=== PATIENT | male | born 1955 | race Caucasian/White ===

== ENCOUNTER 2019-08-22 15:36 | Outpatient (CLI) | payer MEDICARE, SELFPAY ==
--- NOTE | ~2019-08-22 | CT_ITS ---
EXAMINATION: CT foot LT wo con DATE: 08/22/2019 16:05 INDICATION: Left foot pain. Evaluate for stress fracture. TECHNIQUE: Computed tomography (CT) of the left foot was performed without intravenous contrast. The dose-length product was 160.74 mGy-cm. Automated exposure control and iterative reconstruction techni que were employed. COMPARISON: Left foot series dated 07/17/2019 FINDINGS: No acute fracture or traumatic malalignment. 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 Small plantar calcaneal enthesophyte. Small enthesophyte at the insertion of the Achilles tendon. No focal soft tissue abnormality. IMPRESSION: 1. No acute fracture. Reviewed, dictated and finalized at location A. [employer] IMPRESSION: 1. No acute fracture.
== END 2019-08-22 15:37 ==
LOC: MICIMG 15:37
PROVIDERS: PCP Family Medicine; Visit Provider Podiatrist Foot & Ankle Surgery
DX: M84.375A Stress fracture, left foot, initial encounter for fracture (principal)
CPT/HCPCS: 73700

== ENCOUNTER 2019-10-13 16:09 | Emergency (ER) | payer MEDICARE, SELFPAY ==
[2019-10-13] VITALS (18 sets, daily range): BP systolic 64–132; BP diastolic 33–73; PULSE 60–68; RESP 13–25; TEMP 36.6; O2SAT 94–100
--- NOTE | ~2019-10-13 | CT_ITS ---
EXAMINATION: CT cervical spine wo con DATE: 10/13/2019 17:37 INDICATION: Neck pain and pain radiating down the left arm. TECHNIQUE: Computed tomography (CT) of the cervical spine was performed without intravenous contrast. Automated exposure control and iterative reconstruction technique were employed. The dose-length pro duct was 815.21 mGy-cm. COMPARISON: None FINDINGS: Evaluation mildly limited by moderate amount of motion artifact which is most prominent at the level of C5. Alignment is normal. Vertebral body heights are normal. No lesions suspicious for fracture. Mi ld disc height loss and associated uncovertebral osteoarthritis at C5-C6 through C7-T1. Bilateral mul tilevel mild facet osteoarthritis. No significant central canal stenosis. Mild neural foraminal steno sis on the left at C6-C7 and C7-T1. Cervical soft tissues are unremarkable. Mild emphysema at the rig ht apex. IMPRESSION: 1. Mild cervical spondylosis. No acute osseous abnormality. 2. Evaluation mildly limited by moderate amount of motion artifact. Reviewed, dictated and finalized at location A.
--- NOTE | ~2019-10-13 | XR_ITS ---
EXAMINATION: XR chest 2V DATE: 10/13/2019 17:08 INDICATION: Shortness of breath. Left arm and neck pain. TECHNIQUE: PA and lateral views of the chest were obtained. COMPARISON: Chest radiograph dated 07/08/2019 FINDINGS: The lungs remain clear with no focal airspace opacities, pulmonary edema, pleural effusion or pneumot horax. Cardiomegaly. Dual lead pacemaker/AICD seen with leads projecting over the expected locations of the right atrium and right ventricle. Large calcified periaortic lymph node consistent with old gr anulomatous disease. Upper thoracic levoscoliosis. IMPRESSION: 1. Cardiomegaly. Reviewed, dictated and finalized at location A. IMPRESSION: 1. Cardiomegaly.
--- NOTE | ~2019-10-13 | CT_ITS ---
EXAMINATION: CT brain wo con DATE: 10/13/2019 17:37 INDICATION: Left arm and neck pain. Left upper limb neuropathy. TECHNIQUE: Computed tomography (CT) of the head was performed without intravenous contrast. Sagittal and coronal reconstructions were performed. The mA was adjusted according to patient size. Iterative reconstruction technique was employed. The dose-length product was 681.00 mGy-cm. COMPARISON: head CT dated 04/25/2018 FINDINGS: Chronic left frontoparietal scalp swelling with multiple small subdermal dystrophic calcifications. N o acute intracranial hemorrhage, acute infarction or abnormal extra axial fluid collection. There is mild scattered white matter hypoattenuation consistent with chronic small vessel ischemic disease. Sy mmetric prominence of the sulci consistent with mild age-appropriate diffuse cerebral volume loss. Ve ntricles are normal and symmetric. No mass/mass effect. The orbits, paranasal sinuses and mastoid air cells are normal. IMPRESSION: 1. Stable appearance of chronic age-related findings. No acute intracranial process. Reviewed, dictated and finalized at location A. IMPRESSION: 1. Stable appearance of chronic age-related findings. No acute intracranial pro cess.
--- NOTE | 2019-10-13 16:16 | ECG_ITS ---
Measurements Intervals [place] Rate: 62 P: 22 VA: 211 QRS: -51 QRSD: 165 T: 8 QT: 436 QTc: 444 Interpretive Statements SINUS RHYTHM WITH FIRST DEGREE AV BLOCK RIGHT BUNDLE BRANCH BLOCK LEFT ANTERIOR FASCICULAR BLOCK ABNORMAL ECG Electronically Signed On 10-16-2019 11:42:45 CDT by Cralos Heck D.O.
--- NOTE | 2019-10-13 16:29 | PC.NURSE ---
Pt states 4 days ago he started having neck pain 4 days ago and then started having back pain and NULL. Pt states the last couple days he started having L arm pain, chest pain and SOB. Pt states he was sitting when all his symptoms started. Pt is A&Ox4. Pt appears in NAD. Pt has call light in reach
[2019-10-13 17:00] LABS: Basophils Percent Auto 0.6 % (0.2-1.2); Eosinophils Absolute Auto 0.2 K/mm3 (0-0.3); Eosinophils Percent Auto 3.1 % (0-4.4); Hematocrit 45.3 % (42.0-52.0); Hemoglobin 14.4 g/dL (14.0-18.0); Immature Granulocyte Absolute 0.04 K/mm3 (0.00-0.031); Immature Granulocyte Percent A 0.6 % (0-0.5); Lymphocytes Percent Auto 18.5 % (18.3-44.2); Mean Corpuscular HGB Conc 31.8 g/dl (32-36); Mean Corpuscular Hemoglobin 28.3 pg (26-34); Mean Corpuscular Volume 89.2 fl (80-100); Mean Platelet Volume 11.2 fl (7.4-10.4); Monocytes Absolute Auto 0.7 K/mm3 (0.1-0.6); Monocytes Percent Auto 9.7 % (2.6-8.5); Neutrophils Absolute Auto 4.7 K/mm3 (1.3-6.7); Neutrophils Percent Auto 67.5 % (45.5-73.1); Platelet Count Result 214 k/mm3 (150-375); Red Blood Count 5.08 M/mm3 (4.6-6.20); Red Cell Distribution Width 14.8 % (11.5-14.5)
[2019-10-13 17:10] LABS: INR 0.9; Prothrombin Time 11.9 Seconds (11.1-14.7)
[2019-10-13 17:13] LABS: Alanine Aminotransferase 29 U/L (4-50); Albumin Level 4.6 g/dL (3.5-5.1); Alkaline Phosphatase 77 U/L (38-126); Aspartate Amino Transferase 27 U/L (17-59); Bilirubin,Total 0.4 mg/dL (0.2-1.3); Blood Urea Nitrogen 29 mg/dL (9-20); Calcium 9.5 mg/dL (8.4-10.2); Carbon Dioxide 31 mmol/L (22-30); Chloride 104 mmol/L (98-107); Estimated CRCL calculation 94 ml/min; Estimated Glomerular Filt Rate > 60; Glucose 97 mg/dL (75-110); Magnesium 2.5 mg/dL (1.6-2.3); Potassium 4.1 mmol/L (3.4-5.0); Sodium 141 mmol/L (137-145)
--- NOTE | 2019-10-13 17:15 | ED.NEUROSD ---
HPI - Neuro Symptoms/Deficit General Chief Complaint: Shortness of Breath/Dyspnea Stated Complaint: neck, back and head pain Time Seen by Provider: 10/13/19 16:37 History of Present Illness HPI Narrative: Patient presents with his for neck and left arm pain. Started 4 days ago, without injury or trauma. He has severe posterior neck pain, left scapula pain, and then down the left arm. It is associated with left numbness of the 4th and 5th fingers. He has neurofibromatosis and is on chronic pain medication, neurontin 300mg several times a day. He goes to [place] for his MRIs, because he has a pacer and his head of history and neurologist are both there. He has had no symptoms of illness, other than his chronic SOB. Onset (ago): day(s) Timing confirmed by: spouse Location: left arm History of same: No Severity: severe Quality: numb Relieving factors: none Exacerbating factors: other Context: sudden onset On Anticoagulants: No Associated symptoms: other Related Data Allergies Allergy/AdvReac Type Severity Reaction Status Date / Time menthol Allergy Severe Rash Verified 08/19/19 10:10 Review of Systems Review of Systems: All systems reviewed & are unremarkable except as noted in HPI and below Constitutional: Constitutional: Reports as per HPI, Denies chills, Denies fever(s) and Denies weakness Cardiovascular: Cardiovascular: Denies chest pain Respiratory: Respiratory: Reports dyspnea Gastrointestinal: Gastrointestinal: Denies abdominal pain and Denies nausea Musculoskeletal: Musculoskeletal: Denies joint swelling Neurologic: Reports system reviewed and no additional complaints, except as documented, Denies confusion, Denies focal weakness and Reports numbness PMFSH Past Medical History Medical History CHF (congestive heart failure) Family History Family History Father Cerebrovascular accident Family history of diabetes mellitus in first degree relative Family history of heart disease in male family member before age 55 Mother Family history of malignant neoplasm of breast in first degree relative Other Diabetes mellitus Family history of alcoholism Family history of malignant neoplasm Family history of mental disorder Social History Social History Smoking status: Never smoker Second hand tobacco smoke exposure: No Smoking end date: 07/02/77 Alcohol intake: current Gender identity (if verbalized by the patient): Male Exam Const: General: no acute distress and alert Nutritional Appearance: well nourished and obese Orientation/consciousness: patient oriented x3 HENMT: Head: normal to inspection Face and sinus: normal facial exam Mouth: Yes Normal oral and palatal mucosa present Eyes: Conjunctivae: conjunctivae normal Pupils: Equal, round and reactive pupils present EOM: EOMs intact bilaterally Neck: Other: mild tenderness to posterior neck diffusely Chest: Chest palpation & inspection: normal inspection of the chest and Pacemaker present Resp: Effort & Inspection: normal respiratory effort Auscultation: clear to auscultation bilaterally Cardio: Rate: regular rate Rhythm: regular rhythm GI: Inspection: distended GI Palp: Yes Soft to palpation and No Tenderness to palpation present (GI) Skin: General skin exam: normal color Other: multiple soft nodules (neurofibromas) Neuro: General: patient oriented x3, moves all extremities, no meningeal signs, no focal motor deficits and CN's II-XI intact bilaterally Cranial nerves: Yes Nystagmus not present Speech: normal speech Extrem: General: normal to inspection Psych: Affect: normal affect Attitude: cooperative Course Reevaluation(s) Reevaluation #1: The percocet helped some., but he is still complaining. I offered percocet and increased the neurotin for home. He can have a dilau
[2019-10-13 17:24] LABS: NT Pro B Type Natriuretic Pept 40 PG/ML (5-100); Troponin I < 0.012 ng/mL (0.000-0.034)
[2019-10-13] MEDS: HYDROMORPHONE HCL 1 MG/ML INJ IM (18:51)
== END 2019-10-13 19:06 | disposition home or self-care (01) ==
PROVIDERS: Emergency Provider Emergency Medicine; PCP Family Medicine
DX: Q85.00 Neurofibromatosis, unspecified (principal); G62.9 Polyneuropathy, unspecified; I50.9 Heart failure, unspecified; I51.7 Cardiomegaly; M47.812 Spondylosis without myelopathy or radiculopathy, cervical region; Z95.0 Presence of cardiac pacemaker
CPT/HCPCS: 36415; 70450; 71046; 72125; 80053; 83735; 83880; 84484; 85025; 85610; 87804; 93005; 96372; 99284; A9270; J1170

== ENCOUNTER 2020-02-25 12:51 | Inpatient (IN) | payer MEDICARE, SELFPAY ==
[2020-02-25] VITALS (12 sets, daily range): BP systolic 110–132; BP diastolic 52–85; PULSE 59–67; RESP 16–24; TEMP 36.2–36.4; O2SAT 90–100; BMI 41.4
--- NOTE | ~2020-02-25 | XR_ITS ---
EXAMINATION: XR chest 2V DATE: 02/25/2020 13:31 INDICATION: Shortness of breath. Weakness. TECHNIQUE: PA and lateral views of the chest were obtained. COMPARISON: Chest radiograph dated 10/13/19 FINDINGS: Elevation of the left hemidiaphragm. No focal airspace opacities, pulmonary edema, pleural effusion o r pneumothorax. Cardiomegaly with pulmonary vascular congestion. Dual lead pacemaker/AICD seen with l omar projecting over the expected locations of the right atrium and right ventricle. Mild thoracic sp ondylosis. IMPRESSION: 1. Cardiomegaly with pulmonary vascular congestion but without melisa pulmonary edema. Reviewed, dictated and finalized at location A.
--- NOTE | ~2020-02-25 | XR_ITS ---
EXAMINATION: XR chest 2V DATE: 02/27/2020 10:37 INDICATION: Congestive heart failure. TECHNIQUE: Frontal and lateral views of the chest were obtained. COMPARISON: Chest 2 views 02/25/2020, chest CT 04/13/2019 FINDINGS: There is mild atelectasis at the lung bases. A calcified left lung nodule and calcified par aesophageal lymph node are consistent with old granulomatous disease. No pleural effusion or pneumoth orax. Cardiomegaly is noted. There is a left chest wall pacer with leads in the right atrium and righ t ventricle. IMPRESSION: 1. Mild atelectasis at the lung bases. 2. Cardiomegaly. Reviewed, dictated and finalized at location B.
--- NOTE | ~2020-02-25 | US_ITS ---
EXAMINATION: US venous doppler LE EXAM DATE: 02/26/2020 10:17 INDICATION: Bilateral leg swelling. TECHNIQUE: Multiple grayscale, color flow and Doppler images of the lower extremity deep venous syste ms bilaterally were obtained and reviewed. Comparison is made to prior examination from 04/14/2019. FINDINGS: Right side: The right common femoral, femoral and profunda veins demonstrate normal color flow, respi ratory variation, augmentation and compressibility. Compressibility, color flow confirmed within the right popliteal, posterior tibial, peroneal, and greater saphenous veins. Left side: The left common femoral, femoral and profunda veins demonstrate normal color flow, respira tory variation, augmentation and compressibility. Compressibility, color flow confirmed within the l eft popliteal, posterior tibial, peroneal, and greater saphenous veins. IMPRESSION: 1. No lower extremity deep venous thrombosis bilaterally. Reviewed, dictated and finalized at location A.
--- NOTE | 2020-02-25 13:12 | ECG_ITS ---
Measurements Intervals [place] Rate: 60 P: 128 ME: 246 QRS: -52 QRSD: 164 T: 2 QT: 458 QTc: 458 Interpretive Statements ELECTRONIC ATRIAL PACEMAKER RIGHT BUNDLE BRANCH BLOCK LEFT ANTERIOR FASCICULAR BLOCK CONSIDER HIGH LATERAL INFARCT, AGE INDETERMINATE BASELINE ARTIFACT- I, II, III, AVR, AVL, AVF ABNORMAL ECG Electronically Signed On 02-25-2020 16:04:56 CDT by Carlos Heck D.O.
[2020-02-25 13:32] LABS: Basophils Percent Auto 0.3 % (0.2-1.2); Eosinophils Absolute Auto 0.2 K/mm3 (0-0.3); Eosinophils Percent Auto 2.9 % (0-4.4); Hematocrit 41.3 % (42.0-52.0); Hemoglobin 13.4 g/dL (14.0-18.0); Immature Granulocyte Absolute 0.02 K/mm3 (0.00-0.031); Immature Granulocyte Percent A 0.3 % (0-0.5); Lymphocytes Absolute Auto 1.07 K/mm3 (0.9-3.2); Lymphocytes Percent Auto 16.1 % (18.3-44.2); Mean Corpuscular HGB Conc 32.4 g/dl (32-36); Mean Corpuscular Hemoglobin 28.5 pg (26-34); Mean Corpuscular Volume 87.7 fl (80-100); Mean Platelet Volume 10.7 fl (7.4-10.4); Monocytes Absolute Auto 0.7 K/mm3 (0.1-0.6); Monocytes Percent Auto 10.2 % (2.6-8.5); Neutrophils Absolute Auto 4.7 K/mm3 (1.3-6.7); Neutrophils Percent Auto 70.2 % (45.5-73.1); Platelet Count Result 165 k/mm3 (150-375); Red Blood Count 4.71 M/mm3 (4.6-6.20); Red Cell Distribution Width 14.6 % (11.5-14.5); White Blood Count 6.7 K/mm3 (4.5-10.0)
--- NOTE | 2020-02-25 13:36 | ED.SOB ---
HPI - SOB/Dyspnea General Chief Complaint: Shortness of Breath/Dyspnea Stated Complaint: SOB Time Seen by Provider: 02/25/20 13:24 Source: patient Limitations: no limitations History of Present Illness HPI Narrative: 64-year-old male presents emergency department for shortness of breath for the past few days progressively worsening. Patient says he has felt like this in the past before, unknown cause. Shortness of breath not worse with exertion. He has not taken anything for the shortness of breath today. No chest pain at this time. No abdominal pain. No nausea or vomiting. Patient states he has been gaining weight recently, and has a history of CHF. Related Data Home Medications Medication Instructions Recorded Confirmed fesoterodine [Toviaz] 4 mg PO DAILY 01/19/20 02/25/20 furosemide 40 mg PO QPM 01/19/20 02/25/20 furosemide 60 mg PO QAM 01/19/20 02/25/20 gabapentin 900 mg PO HS 01/19/20 02/25/20 pantoprazole 40 mg PO QAM 01/19/20 02/25/20 potassium chloride 10 meq PO BID 01/19/20 02/25/20 Adult One Daily Multivitamin 1 tablet PO QAM 02/25/20 02/25/20 albuterol sulfate [ProAir HFA] 2 inh INHALATION PRN PRN 02/25/20 02/25/20 alendronate-vitamin D3 1,000 units PO DAILY 02/25/20 02/25/20 aspirin [Aspirin Low Dose] 81 mg PO QAM 02/25/20 02/25/20 levalbuterol HCl 1 mg INHALATION TID 02/25/20 02/25/20 mometasone 1 spray INTRANASAL QA 02/25/20 02/25/20 rosuvastatin 20 mg PO QPM 02/25/20 02/25/20 Allergies Allergy/AdvReac Type Severity Reaction Status Date / Time menthol AdvReac Severe BROWER SKIN Verified 02/25/20 18:23 Review of Systems Review of Systems: Narrative: CONSTITUTIONAL: Denies fever, chills, or sweats. EYES: Denies visual changes, redness, or discharge. ENT: Denies rhinorrhea, congestion, sore throat, or otalgia. CARDIOVASCULAR: Denies chest pain, palpitations, or edema. RESPIRATORY: Reports shortness of breath and dry cough. GASTROINTESTINAL: Denies abdominal pain, nausea, vomiting, or diarrhea. GENITOURINARY: Denies dysuria or hematuria. SKIN: Denies rash or itching. MUSCULOSKELETAL: Denies back pain, joint pain, or myalgia. NEUROLOGIC: Denies headache, numbness, dizziness, or weakness. PSYCHIATRIC: Denies anxiety or depression. [facility] Past Medical History Medical History CHF (congestive heart failure) Family History Family History (Updated 02/25/20 @ 18:28 by Haim Jasmine RN) Father Family history of heart disease in male family member before age 55 Family history of diabetes mellitus in first degree relative Cerebrovascular accident Neurofibromatosis Mother Family history of malignant neoplasm of breast in first degree relative Grandparent Alcoholism Sibling Thyroid cancer Sibling Depression Family history of malignant neoplasm of breast in first degree relative Sibling Depression Adrenal cancer Sibling Depression Social History Social History Smoking status: Former smoker Second hand tobacco smoke exposure: No Smoking end date: 07/02/77 Alcohol intake: current Drinks per week: 1 Substance use: never Substance use type: does not use Gender identity (if verbalized by the patient): Male Spiritual care concerns: No Exam Narrative: Exam Narrative: GENERAL: Well-appearing, well-nourished, and in no acute distress. Obese HEAD: Normocephalic, atraumatic. EYES: PERRLA and EOMI. ENT: Nares clear, no rhinorrhea or epistaxis. Mucous membranes moist. NECK: Supple. CHEST: Clear to auscultation, decreased breath sounds bilaterally. No respiratory distress. HEART: Regular rate and rhythm. No murmur heard. Normal peripheral pulses. ABDOMEN: Soft, nontender, nondistended, normal active bowel sounds. EXTREMITIES: Normal range of motion. 2+ pitting edema lower extremities bilaterally SKIN: Warm, dry, no rash. NEURO: No focal deficits. Alert and oriented
[2020-02-25 13:43] LABS: Prothrombin Time 13.2 Seconds (11.1-14.7)
[2020-02-25 13:44] LABS: Partial Thromboplastin Time 28.9 SECONDS (22.3-36.8)
[2020-02-25 13:46] LABS: Anion Gap 6 mmol/L (8-16); Blood Urea Nitrogen 27 mg/dL (9-20); Calcium 8.9 mg/dL (8.4-10.2); Carbon Dioxide 29 mmol/L (22-30); Chloride 106 mmol/L (98-107); Estimated CRCL calculation 121 ml/min; Estimated Glomerular Filt Rate > 60; Glucose 95 mg/dL (75-110); Potassium 4.2 mmol/L (3.4-5.0); Sodium 141 mmol/L (137-145)
[2020-02-25 13:58] LABS: NT Pro B Type Natriuretic Pept 66 PG/ML (5-100); Troponin I < 0.012 ng/mL (0.000-0.034)
[2020-02-25] MEDS: FUROSEMIDE INJ 100 MG/10 ML VIAL 60 MG IV PUSH (15:06)
--- NOTE | 2020-02-25 18:17 | ADMGEN ---
This patient, Rah Greco, was admitted to Medical Room 255-. Patient/family oriented to hospital policies and general routines including ID bracelet, bed and alarms, visiting hours, pain management, procedures, bathroom and other care routines, personal items, smoking policy, room service/diet, and visiting hours. Valuables list has been completed. Information on how to activate the Rapid Response Team has been discussed. Patient/Family are encouraged to report perceived risks to care and to ask questions if they do not understand what they are told or what they should do.
[2020-02-26] VITALS (15 sets, daily range): BP systolic 113–136; BP diastolic 46–66; PULSE 60–72; RESP 18–22; TEMP 36–36.4; O2SAT 89–98
[2020-02-26 06:14] LABS: D Dimer 0.43 ug/mL (<0.48)
[2020-02-26 06:16] LABS: Anion Gap 6 mmol/L (8-16); Blood Urea Nitrogen 24 mg/dL (9-20); Calcium 9.2 mg/dL (8.4-10.2); Carbon Dioxide 27 mmol/L (22-30); Chloride 103 mmol/L (98-107); Estimated CRCL calculation 121 ml/min; Estimated Glomerular Filt Rate > 60; Glucose 117 mg/dL (75-110); Potassium 3.9 mmol/L (3.4-5.0); Sodium 136 mmol/L (137-145)
--- NOTE | 2020-02-26 06:38 | PM.IMHP ---
H&P: HPI History of Present Illness Date/Time: 02/26/20 06:38 Chief complaint: shortness of breath Narrative: Rah Greco is a 64 year old male with a past medical history of severe left ventricular enlargement, diastolic dysfunction, morbid obesity, bilateral hemidiaphragm paralysis, and complex obstructive sleep apnea who presented to the ER with shortness of breath. The patient initially reported that he had developed sudden onset of shortness of breath while walking around at work. However, upon further discussion of his condition the patient does admit that he is been gaining weight for the last 6-8 weeks. Since August he has gained at least 25 lb. He has not weighed himself in the last week or 2 and thinks that he probably has gained more weight. He reports that his legs are significantly more swollen than his usual. His legs have been aching in the anterior nair and in his feet. They have been aching so much that he is having difficulty standing up and walking across the room. He was attributing the weight gain to being laid off work since August. he takes Lasix 60 mg at around 3:00 a.m. in the afternoon after he returns from work and an additional 40 mg at around 7 her 8:00 p.m.. He does not take his Lasix in the morning because he has such difficulty with chronic urinary incontinence that he will urinate through 2 or 3 depends at a time. 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 However, while he was off of work he was going to the gym working out for an hour a day. He was doing extremely well with this until the last 6-8 weeks when he noticed increased dyspnea on exertion. He was also having increased orthopnea. He denies any paroxysmal nocturnal dyspnea but wears his CPAP religiously. He had sleeps in a recliner at all times but has had to start sleeping upright in the recliner. His has been yelling at him to keep his legs up because his legs have become that much more swollen. He denies any chest pain or palpitations. He has noticed a mild dry cough for the last couple of days. He has not had any fevers or chills. He denies any recent ill contacts. He has not had any loss of the sense of taste or smell. He denies any increased body aches. He does have chronic urinary incontinence and anticipates having a a bladder stimulator placed March 26, [address] Sargent. He denies any dysuria or hematuria. He has not had any hematochezia or melena. He usually has 1-2 soft stools a day. He did not have a stool yesterday but also did not have much to eat as he was in the ER. the patient has also noticed that his abdomen has been more distended but is not painful. He may have noticed a little bit of swelling in his hands. Review of Systems Review of Systems: Narrative: 12 systems were reviewed with pertinent positives and negatives per HPI. Except as documented in the HPI, all other systems were reviewed and are negative. [facility] Past Medical History Medical History (Updated 02/26/20 @ 08:05 by Allie Daugherty DO) Adrenal adenoma stable on imaging since 2017 Benign prostatic hyperplasia (BPH) with urinary urge incontinence the patient is in test debating a bladder stimulator placement March [address] Sargent Bilateral cataracts maturing Brugada syndrome C. 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
[2020-02-26 07:57] LABS: Glucose Point of Care 120 (65-105)
[2020-02-26] MEDS: PANTOPRAZOLE 40 MG TABLET PO (08:22)
[2020-02-26] MEDS: POTASSIUM CHLORIDE 10 MEQ TABLET.ER PO ×2 (08:22→17:13)
[2020-02-26] MEDS: ASPIRIN 81 MG ENTERIC TABLET PO (08:22)
[2020-02-26] MEDS: LOSARTAN POTASSIUM 25 MG TABLET PO (08:22)
[2020-02-26] MEDS: MULTIVITAMINS THERAPEUTIC TAB (*BKC) 1 TABLET PO (08:23)
[2020-02-26] MEDS: FUROSEMIDE INJ 40 MG/4 ML VIAL IV PUSH (08:23)
[2020-02-26] MEDS: PRAMIPEXOLE 1 MG TABLET PO (08:23)
[2020-02-26] MEDS: allopurinoL 100 MG TABLET PO (08:23)
[2020-02-26] MEDS: ACETAMINOPHEN 500 MG TABLET 1000 MG PO ×2 (11:19→20:16)
--- NOTE | 2020-02-26 11:19 | PM.IMPN ---
Progress Note: A&P Assessment and Plan (1) Acute exacerbation of CHF (congestive heart failure): Qualifiers: Heart failure type: diastolic Qualified Code(s): I50.33 - Acute on chronic diastolic (congestive) heart failure Code(s): I50.9 - Heart failure, unspecified Status: Acute Assessment and Plan: Patient recently saw his cyber security consultant (Dr Gil Baldwin at [facility]) who increased is lasix to 60mg AM, 40mg PM due to SOB and edema. Patient presents here with persistent symptoms. Will increase IV Lasix to 60mg BID as patient is not feeling much improvement this morning. Continue low-sodium diet. Venous dopplers show no DVT; D-dimer negative making PE less likely. (2) Complex sleep apnea syndrome: Code(s): G47.31 - Primary central sleep apnea Status: Acute Assessment and Plan: Continue home noninvasive ventilatory support. (3) Diabetes mellitus type 2, diet-controlled: Code(s): E11.9 - Type 2 diabetes mellitus without complications Status: Chronic Assessment and Plan: Diet controlled per patient. A1c in AM. Will monitor blood sugars with daily BMP and add accu-cheks if needed. (4) Hypertension: Qualifiers: Hypertension type: essential hypertension Qualified Code(s): I10 - Essential (primary) hypertension Code(s): I10 - Essential (primary) hypertension Status: Chronic Assessment and Plan: BPs stable but on lower end; will hold losartan for now given need for increased diuresis. Monitor BP and adjust treatment as needed. Additional Plan Patient's cyber security consultant is Dr Gil Baldwin and EP is Dr Pebbles Nelson; both at [place]. Subjective Date/time seen: 02/26/20 11:10 Interval history: Mr. Greco is a 64yo admitted for acute CHF exacerbation. He describes he thinks his lower extremity swelling is improving. Shortness of breath is about the same as yesterday. He saw his cyber security consultant at [facility] a couple weeks ago who increased his Lasix dose due to these symptoms. He denies any chest pain. He describes lower back pain. He has issues with incontinence for which he follows with Dr Sargent and is scheduled to have a bladder stimulator placed next month. Tolerating oral intake without nausea or vomiting. Review of Systems Review of Systems: Narrative: Twelve systems were reviewed with pertinent positives and negatives as per HPI. Exam Narrative: Exam Narrative: General: Male resting comfortably sitting up in bedside chair in no acute distress. HEENT: Normocephalic, EOMI, oral mucosa moist. Cardiovascular: Rate and rhythm are regular. Respiratory: Decreased breath sounds FRANCINE. Respirations even and nonlabored. Tolerating room air. Abdomen: Soft, non-tender, non-distended, bowel sounds present. Extremities: Peripheral pulses intact. 2+ pitting edema to FRANCINE lower extremities below the knee. Neuro: No focal neurological deficits. Speech is clear. Objective Data Vital Signs Vital Signs: Last Vital Signs Temp 97.5 F L 02/26/20 04:42 Pulse 69 02/26/20 12:00 Resp 20 02/26/20 04:42 BP 113/46 L 02/26/20 04:42 Pulse Ox 98 02/26/20 04:42 Intake/Output Intake/Output: Intake & Output 02/23/20 02/24/20 02/25/20 02/26/20 23:59 23:59 23:59 23:59 Intake Total 510 Output Total 2400 1050 Balance -2400 -540 Meds/Results Medications: Active Medications Generic Name Dose Route Start Last Admin Trade Name Freq PRN Reason Stop Dose Admin Acetaminophen 1,000 mg 02/26/20 08:24 Tylenol Tablet PO Q6H PRN Pain or Fever Albuterol 2 puff 02/26/20 04:32 Proventil Hfa INHALATION PRN PRN shortness of breath Allopurinol 100 mg 02/26/20 08:00 02/26/20 08:23 Zyloprim PO 100 mg DAILY@0800 JARED Administration Asp
[2020-02-26] MEDS: ENOXAPARIN 40 MG/0.4 ML SYRINGE SUB-Q ×2 (11:20→20:15)
[2020-02-26 11:45] LABS: Glucose Point of Care 120 (65-105)
[2020-02-26] MEDS: polyethylene glycoL 3350 17 GM POWD.PACK PO (12:56)
[2020-02-26 16:25] LABS: Glucose Point of Care 126 (65-105)
[2020-02-26] MEDS: ROSUVASTATIN 10 MG TABLET 20 MG PO (17:12)
[2020-02-26] MEDS: FUROSEMIDE INJ 100 MG/10 ML VIAL 60 MG IV PUSH (17:12)
[2020-02-26] MEDS: PRAMIPEXOLE 1 MG TABLET 2 MG PO (17:13)
[2020-02-26] MEDS: GABAPENTIN 300 MG CAPSULE 900 MG PO (20:14)
[2020-02-27] VITALS (16 sets, daily range): BP systolic 106–121; BP diastolic 66–73; PULSE 60–89; RESP 16–22; TEMP 36–36.1; O2SAT 93–97
[2020-02-27 06:06] LABS: Basophils Percent Auto 0.6 % (0.2-1.2); Eosinophils Absolute Auto 0.3 K/mm3 (0-0.3); Hematocrit 42.7 % (42.0-52.0); Hemoglobin 13.9 g/dL (14.0-18.0); Immature Granulocyte Absolute 0.01 K/mm3 (0.00-0.031); Immature Granulocyte Percent A 0.2 % (0-0.5); Lymphocytes Absolute Auto 1.14 K/mm3 (0.9-3.2); Lymphocytes Percent Auto 21.8 % (18.3-44.2); Mean Corpuscular HGB Conc 32.6 g/dl (32-36); Mean Corpuscular Hemoglobin 27.9 pg (26-34); Mean Corpuscular Volume 85.7 fl (80-100); Mean Platelet Volume 10.8 fl (7.4-10.4); Monocytes Absolute Auto 0.6 K/mm3 (0.1-0.6); Monocytes Percent Auto 12.2 % (2.6-8.5); Neutrophils Absolute Auto 3.2 K/mm3 (1.3-6.7); Neutrophils Percent Auto 60.2 % (45.5-73.1); Platelet Count Result 187 k/mm3 (150-375); Red Blood Count 4.98 M/mm3 (4.6-6.20); Red Cell Distribution Width 14.4 % (11.5-14.5); White Blood Count 5.2 K/mm3 (4.5-10.0)
[2020-02-27 06:14] LABS: Anion Gap 7 mmol/L (8-16); Blood Urea Nitrogen 28 mg/dL (9-20); Calcium 9.2 mg/dL (8.4-10.2); Carbon Dioxide 28 mmol/L (22-30); Chloride 101 mmol/L (98-107); Estimated CRCL calculation 121 ml/min; Estimated Glomerular Filt Rate > 60; Glucose 120 mg/dL (75-110); Magnesium 2.4 mg/dL (1.6-2.3); Potassium 3.8 mmol/L (3.4-5.0); Sodium 136 mmol/L (137-145)
[2020-02-27 07:47] LABS: Hemoglobin A1C 5.9 % (<5.7)
[2020-02-27] MEDS: ENOXAPARIN 40 MG/0.4 ML SYRINGE SUB-Q ×2 (09:02→21:39)
[2020-02-27] MEDS: ASPIRIN 81 MG ENTERIC TABLET PO (09:03)
[2020-02-27] MEDS: polyethylene glycoL 3350 17 GM POWD.PACK PO (09:03)
[2020-02-27] MEDS: FUROSEMIDE INJ 100 MG/10 ML VIAL 60 MG IV PUSH ×2 (09:03→17:11)
[2020-02-27] MEDS: POTASSIUM CHLORIDE 10 MEQ TABLET.ER PO ×2 (09:03→17:11)
[2020-02-27] MEDS: LOSARTAN POTASSIUM 25 MG TABLET PO (09:03)
[2020-02-27] MEDS: PRAMIPEXOLE 1 MG TABLET PO (09:03)
[2020-02-27] MEDS: allopurinoL 100 MG TABLET PO (09:03)
[2020-02-27] MEDS: PANTOPRAZOLE 40 MG TABLET PO (09:03)
[2020-02-27] MEDS: MULTIVITAMINS THERAPEUTIC TAB (*BKC) 1 TABLET PO (09:03)
--- NOTE | 2020-02-27 09:56 | PM.IMPN ---
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) who increased is lasix to 60mg AM, 40mg PM due to SOB and edema. Patient presents here with persistent symptoms. Continue increase diuresis with IV Lasix 60mg BID today. Repeat CXR today shows some improvement. Continue low-sodium diet. Educated again today on elevating legs and low-sodium diet. Venous dopplers show no DVT; D-dimer negative making PE less likely. (2) Complex sleep apnea syndrome: Code(s): G47.31 - Primary central sleep apnea Status: Acute Assessment and Plan: Continue home noninvasive ventilatory support. (3) Diabetes mellitus type 2, diet-controlled: Code(s): E11.9 - Type 2 diabetes mellitus without complications Status: Chronic Assessment and Plan: Diet controlled; A1c 5.9. Will monitor blood sugars with daily BMP and add accu-cheks if needed. (4) Hypertension: Qualifiers: Hypertension type: essential hypertension Qualified Code(s): I10 - Essential (primary) hypertension Code(s): I10 - Essential (primary) hypertension Status: Chronic Assessment and Plan: BPs stable but on lower end; will hold losartan for now given need for increased diuresis. Monitor BP and adjust treatment as needed. Additional Plan Patient's vault mechanic is Dr Gil Baldwin and EP is Dr Pebbles Nelson; both at [facility]. Subjective Date/time seen: 02/27/20 09:45 Interval history: Mr. Greco is a 64yo admitted for acute CHF exacerbation. His lower extremity swelling fluctuates through the day and he is encouraged to elevate his legs. Has not tolerated CRUZ hose in the past. Feels his shortness of breath is a little improved. Complains of left foot pain been going on x 1 year, takes gabapentin. No chest pain. No nausea or vomiting, tolerating oral intake. He has issues with incontinence for which he follows with Dr Sargent and is scheduled to have a bladder stimulator placed next month. Review of Systems Review of Systems: Narrative: Twelve systems were reviewed with pertinent positives and negatives as per HPI. Exam Narrative: Exam Narrative: General: Male resting comfortably sitting up in bedside chair in no acute distress. HEENT: Normocephalic, EOMI, oral mucosa moist. Cardiovascular: Rate and rhythm are regular. Respiratory: Decreased breath sounds FRANCINE. Respirations even and nonlabored. Tolerating room air. Abdomen: Soft, non-tender, non-distended, bowel sounds present. Extremities: Peripheral pulses intact. 2+ pitting edema to FRANCINE lower extremities below the knee about same as yesterday. Neuro: No focal neurological deficits. Speech is clear. Objective Data Vital Signs Vital Signs: Last Vital Signs Temp 96.8 F L 02/26/20 20:00 Pulse 66 02/27/20 08:15 Resp 18 02/27/20 08:15 BP 114/58 L 02/26/20 20:00 Pulse Ox 93 02/27/20 08:05 Intake/Output Intake/Output: Intake & Output 02/24/20 02/25/20 02/26/20 02/27/20 23:59 23:59 23:59 23:59 Intake Total 2240 350 Output Total 2400 2100 0 Balance -2400 140 350 Meds/Results Medications: Active Medications Generic Name Dose Route Start Last Admin Trade Name Freq PRN Reason Stop Dose Admin Acetaminophen 1,000 mg 02/26/20 08:24 02/26/20 20:16 Tylenol Tablet PO 1,000 mg Q6H PRN Administration Pain or Fever Albuterol 2 puff 02/26/20 04:32 Proventil Hfa INHALATION PRN PRN shortness of breath A
[2020-02-27] MEDS: ROSUVASTATIN 10 MG TABLET 20 MG PO (17:11)
[2020-02-27] MEDS: PRAMIPEXOLE 1 MG TABLET 2 MG PO (17:11)
[2020-02-27] MEDS: GABAPENTIN 300 MG CAPSULE 900 MG PO (21:39)
[2020-02-28] VITALS: PULSE 81
[2020-02-28 04:00] VITALS: PULSE 60
[2020-02-28 06:00] VITALS: BP 110/60; PULSE 61; RESP 20; TEMP 35.9; O2SAT 95
[2020-02-28 06:12] LABS: Anion Gap 8 mmol/L (8-16); Blood Urea Nitrogen 32 mg/dL (9-20); Calcium 9.1 mg/dL (8.4-10.2); Carbon Dioxide 27 mmol/L (22-30); Chloride 102 mmol/L (98-107); Estimated CRCL calculation 124 ml/min; Estimated Glomerular Filt Rate > 60; Glucose 120 mg/dL (75-110); Sodium 137 mmol/L (137-145)
[2020-02-28 08:00] VITALS: PULSE 60
[2020-02-28] MEDS: PRAMIPEXOLE 1 MG TABLET PO (09:06)
[2020-02-28] MEDS: ENOXAPARIN 40 MG/0.4 ML SYRINGE SUB-Q (09:06)
[2020-02-28] MEDS: allopurinoL 100 MG TABLET PO (09:07)
[2020-02-28] MEDS: PANTOPRAZOLE 40 MG TABLET PO (09:07)
[2020-02-28] MEDS: ASPIRIN 81 MG ENTERIC TABLET PO (09:07)
[2020-02-28] MEDS: FUROSEMIDE INJ 100 MG/10 ML VIAL 60 MG IV PUSH (09:07)
[2020-02-28] MEDS: MULTIVITAMINS THERAPEUTIC TAB (*BKC) 1 TABLET PO (09:07)
[2020-02-28] MEDS: POTASSIUM CHLORIDE 10 MEQ TABLET.ER PO (09:07)
[2020-02-28] MEDS: LOSARTAN POTASSIUM 25 MG TABLET PO (09:07)
[2020-02-28] MEDS: polyethylene glycoL 3350 17 GM POWD.PACK PO (09:07)
[2020-02-28 09:22] VITALS: PULSE 60; RESP 20
--- NOTE | 2020-02-28 11:31 | PM.DS ---
DS: Admitting Diagnosis Admitting Diagnosis Admitting Diagnosis: Acute exacerbation of congestive heart failure DS: Discharge Diagnosis Discharge Diagnosis (1) Acute exacerbation of CHF (congestive heart failure): Qualifiers: Heart failure type: diastolic Qualified Code(s): I50.33 - Acute on chronic diastolic (congestive) heart failure Code(s): I50.9 - Heart failure, unspecified Status: Acute Assessment and Plan: Date of Service 02/28/20 Mr. Greco is a 64yo M with history of CHF, diet controlled type 2 diabetes mellitus, gout, hypertension who presented to the ED for evaluation of shortness of breath and lower extremity swelling. He experiences urinary incontinence for which he follows with Dr Sargent and is scheduled to have a bladder stimulator placed next month. He admits that he does not always take his Lasix as prescribed due to his incontinence because he goes through multiple pairs of Depends at work each day. This paired with his nonadherence to a low-sodium diet is suspected to the the precipitating factor for his CHF exacerbation. Due to significant shortness of breath and swelling, he required inpatient diuresis with IV lasix. He was educated at length regarding a low-sodium diet as well as elevating his legs. 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 (2) Complex sleep apnea syndrome: Code(s): G47.31 - Primary central sleep apnea Status: Acute Assessment and Plan: Continue home noninvasive ventilatory support. (3) Diabetes mellitus type 2, diet-controlled: Code(s): E11.9 - Type 2 diabetes mellitus without complications Status: Chronic Assessment and Plan: Diet controlled; A1c 5.9. (4) Hypertension: Qualifiers: Hypertension type: essential hypertension Qualified Code(s): I10 - Essential (primary) hypertension Code(s): I10 - Essential (primary) hypertension Status: Chronic Assessment and Plan: DS: Summary Time Spent with Patient Time attestation: Total time spent providing and/or coordinating discharge services: 35 minutes Exam Narrative: Exam Narrative: General: Male resting comfortably sitting up in bedside chair in no acute distress. HEENT: Normocephalic, EOMI, oral mucosa moist. Cardiovascular: Rate and rhythm are regular. Respiratory: Decreased breath sounds FRANCINE. Respirations even and nonlabored. Tolerating room air. Abdomen: Soft, non-tender, non-distended, bowel sounds present. Extremities: Peripheral pulses intact. 1+ pitting edema to FRANCINE lower extremities below the knee, improved. Neuro: No focal neurological deficits. Speech is clear. DS: Data Data Completed and Pending Labs on day of discharge: Last Vital Signs Temp 96.7 F L 02/28/20 06:00 Pulse 74 02/28/20 12:00 Resp 20 02/28/20 09:22 BP 110/60 02/28/20 06:00 Pulse Ox 95 02/28/20 06:00 ITS Impressions Chest X-Ray 02/25/20 13:34 IMPRESSION: 1. Cardiomegaly with pulmonary vascular congestion but without melisa pulmonary edema. Venous Doppler Study 02/26/20 10:23 IMPRESSION: 1. No lower extremity deep venous thrombosis bilaterally. Chest X-Ray 02/27/20 10:44 IMPRESSION: 1. Mild atelectasis at the lung bases. 2. Cardiomegaly. Laboratory Tests 02/27/20 05:38 02/28/20 05:26 Discharge Plan Discharge Attending physician on discharge: Shy Moerno Consulting providers: Florin Liang ; Gene Vasquez ; Carlos Heck ; Lamin Yañez V. Discharging Clinician: Luba De La Torre Anticipated Discharge Date/Time: 02/28/20 11:25 Karma
[2020-02-28 12:00] VITALS: PULSE 74
== END 2020-02-28 13:02 | disposition home or self-care (01) | DRG 292 ==
LOC: ANHED 16:25 → ANH2MED 18:06
PROVIDERS: General Practice; Internal Medicine; Admitting Provider Internal Medicine; Emergency Provider Emergency Medicine; PCP Family Medicine; Visit Provider Physician Assistant
DX: I11.0 Hypertensive heart disease with heart failure (principal); Z68.41 Body mass index [BMI] 40.0-44.9, adult; E66.01 Morbid (severe) obesity due to excess calories; I50.33 Acute on chronic diastolic (congestive) heart failure; E11.9 Type 2 diabetes mellitus without complications; G47.33 Obstructive sleep apnea (adult) (pediatric); L81.3 Cafe au lait spots; N40.1 Benign prostatic hyperplasia with lower urinary tract symptoms; N39.41 Urge incontinence; M46.82 Other specified inflammatory spondylopathies, cervical region; K21.9 Gastro-esophageal reflux disease without esophagitis; I49.8 Other specified cardiac arrhythmias; M51.36 Other intervertebral disc degeneration, lumbar region; E78.2 Mixed hyperlipidemia; I71.2 Thoracic aortic aneurysm, without rupture; E04.1 Nontoxic single thyroid nodule; Q85.00 Neurofibromatosis, unspecified; Z87.891 Personal history of nicotine dependence; Z86.711 Personal history of pulmonary embolism; Z95.810 Presence of automatic (implantable) cardiac defibrillator
CPT/HCPCS: 36415; 71046; 80048; 83036; 83735; 83880; 84484; 85025; 85380; 85610; 85730; 93005; 93970; 94640; 96374; 97110; 97116; 97161; 97165; 99285; A9270; J1650; J1940

== ENCOUNTER 2020-03-16 14:43 | Outpatient (CLI) | payer MEDICARE, SELFPAY | END 2020-03-16 14:44 | disposition home or self-care (01) | LOC: ANHSURGERY 14:49 | PROVIDERS: PCP Family Medicine; Visit Provider Urology | DX: Z01.812 Encounter for preprocedural laboratory examination (principal); N32.81 Overactive bladder | CPT/HCPCS: 87086 ==

== ENCOUNTER 2020-03-24 03:04 | Outpatient (CLI) | payer MEDICARE, SELFPAY ==
[2020-03-24 18:39] LABS: SARS-CoV-2 RNA PCR Negative
== END 2020-03-24 03:05 | disposition home or self-care (01) ==
LOC: ANHCOVIDDT 03:04
PROVIDERS: PCP Family Medicine; Visit Provider Urology
DX: Z01.812 Encounter for preprocedural laboratory examination (principal); Z20.828 Contact with and (suspected) exposure to other viral communicable diseases
CPT/HCPCS: 87635; C9803; U0003

== ENCOUNTER 2020-03-26 01:17 | Day surgery (SDC) | payer MEDICARE, SELFPAY ==
[2020-01-19 08:49] VITALS: BMI 40.4
[2020-03-11 15:06] VITALS: BMI 40.4
--- NOTE | 2020-03-21 10:52 | P.HP_ITS ---
H&P: HPI History of Present Illness Date/Time: 03/21/20 10:52 Chief complaint: Overactive Bladder Narrative: Rah Greco is a 64 year old male who underwent InterStim trial with greater than 90% improvement in symptoms. He is here today for placement of his permanent device. Review of Systems Review of Systems: All systems reviewed & are unremarkable except as noted in HPI and below PMFSH Social History Social History Social History: the patient briefly smoked while in college. He drinks 1-2 beers a week. He lives in [place] with his of 40 years. They have 3 children who are healthy and 3 grand children. 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 Code status: Full code durable power of corporate attorney for healthcare: Claudine () Years smoked: 3 Smoking status: Former smoker Tobacco type: cigarettes Second hand tobacco smoke exposure: No Smoking end date: 07/02/77 Alcohol intake: current Drinks per week: 1 Substance use: never Substance use type: does not use Gender identity (if verbalized by the patient): Male Spiritual care concerns: No Meds Home Medications and Allergies Home Medications Medication Instructions Recorded Confirmed Type losartan 25 mg tablet 25 mg PO DAILY #30 tablet 06/02/19 03/11/20 Rx furosemide 40 mg PO QPM 01/19/20 03/11/20 History furosemide 60 mg PO QNOON 01/19/20 03/11/20 History gabapentin 900 mg PO HS 01/19/20 03/11/20 History pantoprazole 40 mg PO QAM 01/19/20 03/11/20 History potassium chloride 10 meq PO BID 01/19/20 03/11/20 History allopurinol 100 mg tablet 100 mg PO DAILY #30 tablet 01/29/20 03/11/20 Rx pramipexole 1 mg tablet 1 mg PO QAM #30 tablet 02/12/20 03/11/20 Rx pramipexole 1 mg tablet 2 mg PO QPM #30 tablet 02/12/20 03/11/20 Rx Adult One Daily Multivitamin 1 tablet PO QAM 02/25/20 03/11/20 History albuterol sulfate [ProAir HFA] 2 inh INHALATION PRN PRN 02/25/20 03/11/20 History aspirin [Aspirin Low Dose] 81 mg PO QAM 02/25/20 03/11/20 History levalbuterol HCl 1 mg INHALATION TID 02/25/20 03/11/20 History mometasone 1 spray INTRANASAL QAM 02/25/20 03/11/20 History rosuvastatin 20 mg PO QPM 02/25/20 03/11/20 History oxybutynin chloride 15 mg PO DAILY 03/11/20 03/11/20 History spironolactone 25 mg PO DAILY 03/11/20 03/11/20 History Allergies Allergy/AdvReac Type Severity Reaction Status Date / Time menthol AdvReac Severe BROWER SKIN Verified 03/11/20 15:07 Exam Const: General: no acute distress HENMT: Mouth: Yes moist mucous membranes Eyes: General: appearance normal, both eyes and all related structures Neck: Neck: supple Resp: Effort & Inspection: normal respiratory effort GI: GI Palp: Yes Soft to palpation Skin: General skin exam: normal color Neuro: Motor exam (neuro): Normal motor muscle tone present throughout Extrem: General: normal to inspection Psych: Mental Status: mental status grossly normal Assessment and Plan Assessment and plan (1) Overactive bladder: Code(s): N32.81 - Overactive bladder Status: Acute Assessment and Plan: implantation of InterStim device
--- NOTE | ~2020-03-26 | XR_ITS ---
XR fl neurostim insert<1hr Pain management procedure. TECHNIQUE: Fluoroscopy used during stimulator lead placement procedure performed by [Geraldo haque MD] on 03/26/2020. 40 seconds of fluoroscopy with 2 images captured. ]DAP is 31.9 mGym2. ] FINDINGS: Correlate with procedure note. IMPRESSION: Fluoroscopy used during stimulator lead placement procedure. Stimulator lead is identifie d extending into the pelvis via right transsacral approach. Reviewed, dictated and finalized at location A. IMPRESSION: Fluoroscopy used during stimulator lead placement procedure. Stimul ator lead is identified extending into the pelvis via right transsacral approac h.
[2020-03-26 06:21] VITALS: BP 135/64; PULSE 61; RESP 18; TEMP 36.4; O2SAT 98
[2020-03-26] MEDS: LACTATED RINGERS 1,000 ML 30 ML IV CONT (06:48)
[2020-03-26 06:50] LABS: Glucose Point of Care 122 (65-105)
--- NOTE | 2020-03-26 07:18 | WPDHPUPDATE1 ---
History and Physical Update Update Date/Time: 03/26/20 07:18 History and Physical has been reviewed, including an updated exam of the patient. There are NO changes in the patient's condition. Risks, benefits, and alternatives have been discussed and questions answered. Patient agrees to proceed with procedure.
--- NOTE | 2020-03-26 07:40 | WPDANESEPPF ---
Anes - Initial Pre Proc Eval Procedure: Operation Date: 03/26/20 08:15 Proposed Procedures p Interstim Phase One And Two Combined - Geraldo Sargent MD Date/Time: 03/26/20 07:40 Surgeon: Geraldo Sargent MD Pre Op Diagnosis: Overactive Bladder Patient Data Age: 64 Gender: M Height: 5 ft 9 in Weight: 124.1 kg Last Vital Signs Temp 36.4 C 03/26/20 06:21 Pulse 61 03/26/20 06:21 Resp 18 03/26/20 06:21 BP 135/64 03/26/20 06:21 Pulse Ox 98 03/26/20 06:21 Allergies Allergy/AdvReac Type Severity Reaction Status Date / Time menthol AdvReac Severe BROWER SKIN Verified 03/26/20 07:01 Home Medications Medication Instructions Recorded Confirmed Type losartan 25 mg tablet 25 mg PO DAILY #30 tablet 06/02/19 03/26/20 Rx furosemide 40 mg PO QPM 01/19/20 03/26/20 History furosemide 60 mg PO QNOON 01/19/20 03/26/20 History gabapentin 900 mg PO HS 01/19/20 03/26/20 History pantoprazole 40 mg PO QAM 01/19/20 03/26/20 History potassium chloride 10 meq PO BID 01/19/20 03/26/20 History allopurinol 100 mg tablet 100 mg PO DAILY #30 tablet 01/29/20 03/26/20 Rx pramipexole 1 mg tablet 1 mg PO QAM #30 tablet 02/12/20 03/26/20 Rx pramipexole 1 mg tablet 2 mg PO QPM #30 tablet 02/12/20 03/26/20 Rx Adult One Daily Multivitamin 1 tablet PO QAM 02/25/20 03/26/20 History albuterol sulfate [ProAir HFA] 2 inh INHALATION PRN PRN 02/25/20 03/26/20 History aspirin [Aspirin Low Dose] 81 mg PO QAM 02/25/20 03/26/20 History levalbuterol HCl 1 mg INHALATION TID 02/25/20 03/26/20 History mometasone 1 spray INTRANASAL QAM 02/25/20 03/26/20 History rosuvastatin 20 mg PO QPM 02/25/20 03/26/20 History oxybutynin chloride 15 mg PO DAILY 03/11/20 03/26/20 History spironolactone 25 mg PO DAILY 03/11/20 03/26/20 History Laboratory Tests 03/26/20 06:44 POC Capillary Glucose 122 mg/dl H mg/dl (65-105) Patient hx anesthesia problems: none Family hx anesthesia problems: none PMFSH Past Medical History Medical History Adrenal adenoma stable on imaging since 2017 Benign prostatic hyperplasia (BPH) with urinary urge incontinence the patient is in test debating a bladder stimulator placement [address] Sargent Bilateral cataracts maturing Brugada syndrome C. 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 Complex sleep apnea syndrome Diabetes mellitus type 2, diet-controlled hemoglobin A1c of 6.03 August 2019 Diaphragm paralysis GERD (gastroesophageal reflux disease) Hearing loss in left ear Kidney stones Low testosterone Lumbar degenerative disc disease Mixed hyperlipidemia Neurofibromatosis Pulmonary embolism Spinal stenosis, lumbar region with neurogenic claudication Thoracic aortic aneurysm (TAA) measuring 4.5 cm on CTA from 2019 Thyroid nodule status post biopsy with benign pathology Surgical History Surgical History AICD (automatic cardioverter/defibrillator) present Biceps tendon rupture status post repair History of appendectomy History of arthroscopy of left knee due to meniscal tear History of colonoscopy with polypectomy History of prostatectomy with chronic urinary incontinence Status post left rotator cuff repair Status post trigger finger release bilateral Family History Family History Father Cerebrovascular accident Neurofibromatosis Coronary artery disease Diabetes mellitus CHF (congestive heart failure) Acute myocardial infarction Mother Breast cancer Grandparent Alcoholism Sibling Thyroid cancer siste
[2020-03-26] MEDS: ceFAZolin 3 GM/D5W 100 ML 100 ML IVPB (08:21)
[2020-03-26] MEDS: BUPIVACAINE/EPINEPHRINE 0.25% 50 ML VIAL INFILTRATE (08:43)
[2020-03-26 09:00] VITALS: BP 133/66; PULSE 67; RESP 20; O2SAT 92
--- NOTE | 2020-03-26 09:03 | PM.PROC ---
Procedure Note - Detailed Date of procedure: 03/26/20 Pre-op diagnosis: Overactive Bladder Procedure performed: Placement of sacral Fluoroscopic guidance for needle placement Placement of implantable pulse generator Complex neurostimulator programming and impedance check Description of procedure: This patient has undergone a successful InterStim trial. He presents today for placement of a permanent device. Understanding the risks of bleeding, infection, lack of efficacy, need for repeat procedures, need for revision. They agree to proceed Dear correctly identified and informed consent was obtained. There brought to the operating room. Placed in the prone position. There given appropriate anesthesia. There prepped and draped in a sterile fashion. A time-out performed. I used fluoroscopy to identify my sacral landmarks in the AP and lateral orientation. I anesthetized the skin. I into the sacral foramen on the left and the right. I monitored the needle fluoroscopy. I entered right and left S3 foramen. I stimulated the needle and got appropriate response at low thresholds. I made a skin delmi. I placed a stylet and the lead introducer sheath. I then placed and deployed by lead again under fluoroscopy. I marked out the site of the future pulse generator. I anesthetized the skin. I made an incision. I created a subcutaneous pocket. I obtained hemostasis. I irrigated out the wound. I then tunneled the lead towards this pocket. Appropriate connections were made between the lead and battery. The battery was programmed. It was placed in the pocket. Impedances were checked and found to be normal. I once again assured hemostasis. I irrigated out all wounds. I closed the subcu with 2 0 Vicryl. Skin with 4 0 Vicryl. Glue was applied. They were then awakened and transferred to the PACU in stable condition. Implants: Neuromodulation device Anesthesia: MAC and local Surgeon: Geraldo Sargent MD Drains: No Packing: No Pathology: none sent Complications: No immediate complications Condition: stable Disposition: PACU
[2020-03-26 09:09] LABS: Glucose Point of Care 124 (65-105)
[2020-03-26 09:30] VITALS: BP 111/59; PULSE 60; RESP 16; O2SAT 92
[2020-03-26 10:00] VITALS: BP 116/64; PULSE 59; RESP 14
== END 2020-03-26 10:38 | disposition home or self-care (01) ==
PROVIDERS: PCP Family Medicine; Visit Provider Urology
PROC: (CPT 64590; principal; 2020-03-26 08:15)
DX: N32.81 Overactive bladder (principal); N40.0 Benign prostatic hyperplasia without lower urinary tract symptoms; N39.41 Urge incontinence; I50.9 Heart failure, unspecified; K21.9 Gastro-esophageal reflux disease without esophagitis; E78.2 Mixed hyperlipidemia; I71.2 Thoracic aortic aneurysm, without rupture; Z86.711 Personal history of pulmonary embolism; Z95.810 Presence of automatic (implantable) cardiac defibrillator; Z87.891 Personal history of nicotine dependence; E66.01 Morbid (severe) obesity due to excess calories; Z68.41 Body mass index [BMI] 40.0-44.9, adult
CPT/HCPCS: 64590; 64581; C1767; C1778; C1787; J0690; J2250; J2704; J3010; J7120

== ENCOUNTER 2020-08-06 11:08 | Outpatient (CLI) | payer MEDICARE, SELFPAY ==
[2020-08-06 11:38] LABS: Hematocrit 44.2 % (42.0-52.0); Hemoglobin 14.5 g/dL (14.0-18.0); Mean Corpuscular HGB Conc 32.8 g/dl (32-36); Mean Corpuscular Hemoglobin 28.8 pg (26-34); Mean Corpuscular Volume 87.7 fl (80-100); Mean Platelet Volume 10.5 fl (7.4-10.4); Platelet Count Result 221 k/mm3 (150-375); Red Blood Count 5.04 M/mm3 (4.6-6.20); Red Cell Distribution Width 14.1 % (11.5-14.5); White Blood Count 7.2 K/mm3 (4.5-10.0)
[2020-08-06 11:56] LABS: Anion Gap 7 mmol/L (8-16); Blood Urea Nitrogen 20 mg/dL (9-20); Calcium 9.5 mg/dL (8.4-10.2); Carbon Dioxide 31 mmol/L (22-30); Chloride 103 mmol/L (98-107); Estimated Glomerular Filt Rate > 60; Glucose 122 mg/dL (75-110); Potassium 4.1 mmol/L (3.4-5.0); Sodium 141 mmol/L (137-145)
[2020-08-06 12:04] LABS: NT Pro B Type Natriuretic Pept 51 PG/ML (5-100)
== END 2020-08-06 11:09 | disposition home or self-care (01) ==
LOC: ANHLAB 11:13
PROVIDERS: PCP Family Medicine; Visit Provider Nurse Practitioner Family
DX: R60.9 Edema, unspecified (principal); R06.00 Dyspnea, unspecified; Z86.79 Personal history of other diseases of the circulatory system; E11.9 Type 2 diabetes mellitus without complications; I10 Essential (primary) hypertension
CPT/HCPCS: 36415; 80048; 83880; 85027

== ENCOUNTER → 2020-08-10 03:58 | Outpatient (CLI) | payer MEDICARE, SELFPAY ==
[2020-08-11 18:18] LABS: SARS-CoV-2 RNA PCR Negative
== END ==
PROVIDERS: Nurse Practitioner Family; PCP Family Medicine; Visit Provider Urology
DX: Z01.812 Encounter for preprocedural laboratory examination (principal); Z20.822 Contact with and (suspected) exposure to COVID-19
CPT/HCPCS: C9803; U0003; U0005

== ENCOUNTER 2020-08-13 01:08 | Day surgery (SDC) | payer MEDICARE, SELFPAY ==
[2020-08-10 12:22] VITALS: BMI 41.6
--- NOTE | 2020-08-12 15:55 | WPDANESEPPF ---
Anes - Initial Pre Proc Eval Procedure: Operation Date: 08/13/20 15:00 Proposed Procedures p Trans Urethral Incision Prostate - Roc Schmidt MD Date/Time: 08/12/20 15:55 Surgeon: Roc Schmidt MD Pre Op Diagnosis: Over Active Bladder, BPH Patient Data Age: 65 Gender: M Height: 1.75 m Weight: 128 kg Allergies Allergy/AdvReac Type Severity Reaction Status Date / Time menthol AdvReac Severe BROWER SKIN Verified 08/13/20 13:27 Home Medications Medication Instructions Recorded Confirmed Type furosemide 40 mg PO QPM 01/19/20 08/13/20 History furosemide 60 mg PO DIRECTED 01/19/20 08/13/20 History pantoprazole 40 mg PO QAM 01/19/20 08/13/20 History potassium chloride 10 meq PO BID 01/19/20 08/13/20 History pramipexole 1 mg tablet 1 mg PO QAM #30 tablet 02/12/20 08/13/20 Rx Adult One Daily Multivitamin 1 tablet PO QAM 02/25/20 08/13/20 History albuterol sulfate [ProAir HFA] 2 inh INHALATION PRN PRN 02/25/20 08/13/20 History aspirin [Aspirin Low Dose] 81 mg PO QAM 02/25/20 08/13/20 History levalbuterol HCl 1 mg INHALATION TID 02/25/20 08/13/20 History oxybutynin chloride 15 mg PO DAILY 03/11/20 08/13/20 History spironolactone 25 mg PO HS 03/11/20 08/13/20 History gabapentin 900 mg PO HS 08/10/20 08/13/20 History pramipexole 2 mg PO HS 08/10/20 08/13/20 History rosuvastatin 20 mg PO HS 08/10/20 08/13/20 History tamsulosin 0.4 mg PO HS 08/10/20 08/13/20 History Patient hx anesthesia problems: none Family hx anesthesia problems: none PMFSH Past Medical History Medical History (Updated 08/06/20 @ 10:31 by Mitchell Jasso NP) Adrenal adenoma stable on imaging since 2017 Benign prostatic hyperplasia (BPH) with urinary urge incontinence the patient is in test debating a bladder stimulator placement [address] Sargent Bilateral cataracts maturing Brugada syndrome C. 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 Complex sleep apnea syndrome Diabetes mellitus type 2, diet-controlled hemoglobin A1c of 6.03 August 2019 Diaphragm paralysis GERD (gastroesophageal reflux disease) Hearing loss in left ear Kidney stones Low testosterone Lumbar degenerative disc disease Mixed hyperlipidemia Neurofibromatosis Pulmonary embolism Spinal stenosis, lumbar region with neurogenic claudication Thoracic aortic aneurysm (TAA) measuring 4.5 cm on CTA from 2019 Thyroid nodule status post biopsy with benign pathology Surgical History Surgical History AICD (automatic cardioverter/defibrillator) present Biceps tendon rupture status post repair History of appendectomy History of arthroscopy of left knee due to meniscal tear History of colonoscopy with polypectomy History of prostatectomy with chronic urinary incontinence Status post left rotator cuff repair Status post trigger finger release bilateral Family History Family History Father Cerebrovascular accident Neurofibromatosis Coronary artery disease Diabetes mellitus CHF (congestive heart failure) Acute myocardial infarction Mother Breast cancer Grandparent Alcoholism Sibling Thyroid cancer sister Sibling Depression Breast cancer Sibling Depression Adrenal cancer sister Sibling Depression Social History Social History Social History: the patient briefly smoked while in college. He drinks 1-2 beers a week. He lives in [place] with his of 40 years. They have 3 children who are healthy and 3 grand children. 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
[2020-08-13] VITALS (8 sets, daily range): BP systolic 109–147; BP diastolic 50–80; PULSE 59–68; RESP 18–22; TEMP 36.3–36.4; O2SAT 100; BMI 40.1
--- NOTE | 2020-08-13 06:40 | WPDHPUPDATE1 ---
History and Physical Update Update Date/Time: 08/13/20 06:40 History and Physical has been reviewed, including an updated exam of the patient. There are NO changes in the patient's condition. Risks, benefits, and alternatives have been discussed and questions answered. Patient agrees to proceed with procedure.
[2020-08-13] MEDS: LACTATED RINGERS 1,000 ML 30 ML IV CONT (13:44)
[2020-08-13 13:57] LABS: Glucose Point of Care 99 (65-105)
--- NOTE | 2020-08-13 15:31 | PM.PROC ---
Procedure Note - Detailed Date of procedure: 08/13/20 Pre-op diagnosis: Over Active Bladder, BPH Post-op diagnosis: same Procedure performed: 1. TUIP 2. Cysto. urethral dilitation Description of procedure: This patient is brought to the operative suite where he has prepped and draped in routine sterile fashion while in a dorsal lithotomy position. After the uneventful induction of a general LMA anesthetic attempt to place a 24 F resectoscope sheath but was met with some resistance because of a bulbous urethral stricture. I dilated that from 16-20 8 F using Mirna sounds. Endoscopy was not undertaken with a 24 F resectoscope. Has a bladder neck contracture / high median bar configuration without significant lateral lobe prostatic hyperplasia. Is trabeculated without foreign body or neoplasm. Using a Rios knife I incised the proximal at the 6 o'clock position extending from the bladder neck to the verumontanum. I extended this incision into the capsular fibers of the prostate were identified. Resectoscope was removed and an 18 F urethral catheter was placed to drainage. Anesthesia: GLMA Surgeon: Roc Schmidt MD Estimated blood loss (mL): 0 Drains: Yes (18F Kurtz catheter) Packing: No Pathology: none sent Complications: No immediate complications Condition: stable Disposition: PACU
[2020-08-13 15:46] LABS: Glucose Point of Care 127 (65-105)
== END 2020-08-13 17:40 | disposition home or self-care (01) ==
PROVIDERS: PCP Family Medicine; Visit Provider Urology
PROC: 0VT08ZZ Resection of Prostate, Via Natural or Artificial Opening Endoscopic (ICD-10-PCS; CPT 52601; principal; 2020-08-13 15:00)
DX: N32.81 Overactive bladder (principal); N35.912 Unspecified bulbous urethral stricture, male; N40.1 Benign prostatic hyperplasia with lower urinary tract symptoms; N13.8 Other obstructive and reflux uropathy; N39.41 Urge incontinence; D35.00 Benign neoplasm of unspecified adrenal gland; I49.8 Other specified cardiac arrhythmias; I50.9 Heart failure, unspecified; E11.9 Type 2 diabetes mellitus without complications; K21.9 Gastro-esophageal reflux disease without esophagitis; E78.2 Mixed hyperlipidemia; Q85.00 Neurofibromatosis, unspecified; Z86.711 Personal history of pulmonary embolism; I71.2 Thoracic aortic aneurysm, without rupture; H26.9 Unspecified cataract; M48.062 Spinal stenosis, lumbar region with neurogenic claudication; M46.82 Other specified inflammatory spondylopathies, cervical region; M51.36 Other intervertebral disc degeneration, lumbar region; Z95.810 Presence of automatic (implantable) cardiac defibrillator; E66.01 Morbid (severe) obesity due to excess calories; Z68.41 Body mass index [BMI] 40.0-44.9, adult
CPT/HCPCS: 52450; 82948; C9803; J2250; J2405; J2704; J3010; J7120; U0003; U0005

== ENCOUNTER 2020-08-20 06:19 | Emergency (ER) | payer MEDICARE, SELFPAY ==
[2020-08-20] VITALS (11 sets, daily range): BP systolic 100–136; BP diastolic 59–78; PULSE 60–70; RESP 13–29; TEMP 36.2; O2SAT 92–99
--- NOTE | ~2020-08-20 | XR_ITS ---
EXAMINATION: XR chest 1V portable INDICATION: Shortness of breath TECHNIQUE: Portable AP chest at 0812 hours COMPARISON: 02/27/2020 FINDINGS: There is mild atelectasis of the lung bases. Stable cardiomegaly is noted. There is no pleu ral effusion or pneumothorax. A dual-lead cardiac pacemaker of the left chest wall ends with leads in expected locations. IMPRESSION: 1. Mild atelectasis of the lung bases. 2. Stable cardiomegaly. Reviewed, dictated and finalized at location A. ER SERVICEMAN
--- NOTE | 2020-08-20 07:14 | ECG_ITS ---
Measurements Intervals Mitchell Rate: 60 P: 124 NV: 261 QRS: -50 QRSD: 158 T: 7 QT: 450 QTc: 450 Interpretive Statements ELECTRONIC ATRIAL PACEMAKER RIGHT BUNDLE BRANCH BLOCK LEFT ANTERIOR FASCICULAR BLOCK CONSIDER HIGH LATERAL INFARCT, AGE INDETERMINATE ABNORMAL ECG Electronically Signed On 08-20-2020 8:16:19 FLIGHT MECHANIC by Carlos Heck D.O.
--- NOTE | 2020-08-20 07:15 | ED.SOB ---
HPI - SOB/Dyspnea General Chief Complaint: Shortness of Breath/Dyspnea Stated Complaint: Rash Time Seen by Provider: 08/20/20 06:55 Source: patient Mode of arrival: ambulatory Limitations: no limitations History of Present Illness HPI Narrative: 65-year-old male comes into the emergency department today with complaints of a rash noted across his bilateral wrists and abdomen. Patient states that it is a burning sensation denies any pruritus. He states that he noticed it at 8 AM yesterday morning. He does note that he has tried Lubriderm for this with no relief. Patient also endorses shortness of breath and worsening swelling in his lower extremities. He states he has a history of CHF and this does feel consistent with this. Patient states that he has been taking his diuretics religiously but is still getting short of breath. Related Data Home Medications Medication Instructions Recorded Confirmed furosemide 40 mg PO QPM 01/19/20 08/13/20 furosemide 60 mg PO DIRECTED 01/19/20 08/13/20 pantoprazole 40 mg PO QAM 01/19/20 08/13/20 potassium chloride 10 meq PO BID 01/19/20 08/13/20 Adult One Daily Multivitamin 1 tablet PO QAM 02/25/20 08/13/20 albuterol sulfate [ProAir HFA] 2 inh INHALATION PRN PRN 02/25/20 08/13/20 aspirin [Aspirin Low Dose] 81 mg PO QAM 02/25/20 08/13/20 levalbuterol HCl 1 mg INHALATION TID 02/25/20 08/13/20 oxybutynin chloride 15 mg PO DAILY 03/11/20 08/13/20 spironolactone 25 mg PO HS 03/11/20 08/13/20 gabapentin 900 mg PO HS 08/10/20 08/13/20 pramipexole 2 mg PO HS 08/10/20 08/13/20 rosuvastatin 20 mg PO HS 08/10/20 08/13/20 tamsulosin 0.4 mg PO HS 08/10/20 08/13/20 Allergies Allergy/AdvReac Type Severity Reaction Status Date / Time menthol AdvReac Severe BROWER SKIN Verified 08/20/20 06:29 Review of Systems Review of Systems: Narrative: CONSTITUTIONAL: Denies fever, chills, or sweats. EYES: Denies visual changes, redness, or discharge. ENT: Denies rhinorrhea, congestion, sore throat, or otalgia. CARDIOVASCULAR: Denies chest pain, palpitations, or edema. RESPIRATORY: Endorses shortness of breath. GASTROINTESTINAL: Denies abdominal pain, nausea, vomiting, or diarrhea. GENITOURINARY: Denies dysuria or hematuria. SKIN: Endorses burning rash. MUSCULOSKELETAL: Denies back pain, joint pain, or myalgia. NEUROLOGIC: Denies headache, numbness, dizziness, or weakness. PSYCHIATRIC: Denies anxiety or depression. COUNT INCLUDES THE [facility] Past Medical History Medical History Adrenal adenoma stable on imaging since 2018 Benign prostatic hyperplasia (BPH) with urinary urge incontinence the patient is in test debating a bladder stimulator placement March [address] Sargent Bilateral cataracts maturing BMI 40.0-44.9, adult Brugada syndrome C. 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 Complex sleep apnea syndrome Diabetes mellitus type 2, diet-controlled hemoglobin A1c of 6.03 August 2019 Diaphragm paralysis GERD (gastroesophageal reflux disease) Hearing loss in left ear Kidney stones Low testosterone Lumbar degenerative disc disease Mixed hyperlipidemia Neurofibromatosis Pulmonary embolism Rash Spinal stenosis, lumbar region with neurogenic claudication Thoracic aortic aneurysm (TAA) measuring 4.5 cm on CTA from 2019 Thyroid nodule status post biopsy with benign pathology Surgical History Surgical History AICD (automatic cardioverter/defibrillator) present Biceps tendon rupture status post repair History of appendectomy History of arthroscopy of left knee due to meniscal tear History of colonoscopy with polypectomy Hist
[2020-08-20 07:40] LABS: Basophils Percent Auto 0.3 % (0.2-1.2); Eosinophils Absolute Auto 0.2 K/mm3 (0-0.3); Eosinophils Percent Auto 3.6 % (0-4.4); Hematocrit 39.4 % (42.0-52.0); Immature Granulocyte Absolute 0.03 K/mm3 (0.00-0.031); Immature Granulocyte Percent A 0.5 % (0-0.5); Lymphocytes Absolute Auto 0.85 K/mm3 (0.9-3.2); Lymphocytes Percent Auto 13.4 % (18.3-44.2); Mean Corpuscular Hemoglobin 28.4 pg (26-34); Mean Platelet Volume 9.9 fl (7.4-10.4); Monocytes Absolute Auto 0.7 K/mm3 (0.1-0.6); Monocytes Percent Auto 10.3 % (2.6-8.5); Neutrophils Absolute Auto 4.6 K/mm3 (1.3-6.7); Neutrophils Percent Auto 71.9 % (45.5-73.1); Platelet Count Result 207 k/mm3 (150-375); Red Blood Count 4.58 M/mm3 (4.6-6.20); Red Cell Distribution Width 14.2 % (11.5-14.5); White Blood Count 6.3 K/mm3 (4.5-10.0)
[2020-08-20] MEDS: FUROSEMIDE INJ 40 MG/4 ML VIAL 100 MG IV PUSH (07:41)
[2020-08-20 07:52] LABS: Alanine Aminotransferase 18 U/L (4-50); Alkaline Phosphatase 65 U/L (38-126); Anion Gap 5 mmol/L (8-16); Aspartate Amino Transferase 20 U/L (17-59); Bilirubin,Total 0.4 mg/dL (0.2-1.3); Blood Urea Nitrogen 25 mg/dL (9-20); Calcium 9.5 mg/dL (8.4-10.2); Carbon Dioxide 29 mmol/L (22-30); Chloride 105 mmol/L (98-107); Estimated CRCL calculation 118 ml/min; Estimated Glomerular Filt Rate > 60; Glucose 129 mg/dL (75-110); Magnesium 2.2 mg/dL (1.6-2.3); Potassium 3.9 mmol/L (3.4-5.0); Sodium 139 mmol/L (137-145)
[2020-08-20 08:04] LABS: NT Pro B Type Natriuretic Pept 73 PG/ML (5-100); Troponin I < 0.012 ng/mL (0.000-0.034)
[2020-08-20 08:27] LABS: Add Urine Microscopic? YES; Appearance Urine Clear (Clear); Bilirubin Urine Negative (Negative); Blood Urine 2+ (Negative); Color Urine Straw (Yellow); Glucose Urine UA Negative (Negative); Ketones Urine Negative (Negative); Leukocyte Esterase Ur Negative LEU/UL (Negative); Nitrate Urine Negative (Negative); Protein Urine Negative (Negative); RBC Urine 51-75 /hpf (0-2); Specific Grav Ur 1.012 (1.001-1.035); Urobilinogen Urine Negative mg/dL (<2.0); WBC Urine 0-3 /hpf
== END 2020-08-20 09:18 | disposition home or self-care (01) ==
PROVIDERS: Emergency Provider Emergency Medicine; PCP Family Medicine
DX: L30.9 Dermatitis, unspecified (principal); I50.9 Heart failure, unspecified; N40.0 Benign prostatic hyperplasia without lower urinary tract symptoms; I49.8 Other specified cardiac arrhythmias; G47.39 Other sleep apnea; E11.9 Type 2 diabetes mellitus without complications; K21.9 Gastro-esophageal reflux disease without esophagitis; Z87.442 Personal history of urinary calculi; M51.36 Other intervertebral disc degeneration, lumbar region; E78.2 Mixed hyperlipidemia; Q85.00 Neurofibromatosis, unspecified; Z86.711 Personal history of pulmonary embolism; Z95.810 Presence of automatic (implantable) cardiac defibrillator; Z90.79 Acquired absence of other genital organ(s); Z87.891 Personal history of nicotine dependence; I45.2 Bifascicular block; I51.7 Cardiomegaly
CPT/HCPCS: 36415; 71045; 80053; 81001; 83735; 83880; 84484; 85025; 93005; 96374; 99284; J1940

== ENCOUNTER 2020-09-30 14:07 | Observation (INO) | payer MEDICARE, SELFPAY ==
[2020-09-30] VITALS (13 sets, daily range): BP systolic 114–143; BP diastolic 40–72; PULSE 60–76; RESP 14–26; TEMP 36.4; O2SAT 92–97
--- NOTE | ~2020-09-30 | XR_ITS ---
XR chest 1V portable 09/30/2020 15:49 Indication: Dizziness. Covid Procedure: AP portable chest Comparison: Comparison to multiple prior studies sequentially, with oldest reviewed study dated 10/12. Findings: Cardiomegaly. No focal air space disease, pulmonary edema, pleural effusion or suspected pn eumothorax. Pacemaker leads are stable. No acute osseous abnormality. Impression: 1: No acute cardiopulmonary disease. Reviewed, dictated and finalized at location B. Impression: 1: No acute cardiopulmonary disease.
--- NOTE | ~2020-09-30 | CT_ITS ---
EXAMINATION: CT brain wo con DATE: 09/30/2020 15:25 INDICATION: Dizziness. Headache. TECHNIQUE: Computed tomography (CT) of the head was performed without intravenous contrast. The mA wa s adjusted according to patient size. Iterative reconstruction technique was employed. The dose-lengt h product was 983.67 mGy-cm. COMPARISON: Head CT 10/13/2019 FINDINGS: There is no intracranial hemorrhage, acute infarction, or abnormal intracranial mass lesion . There are scattered areas of low attenuation in the cerebral white matter, which is within normal l imits for the patient's age. The ventricles are normal in size. The orbits are normal. There is mild mucosal thickening in the paranasal sinuses. The mastoid air cells are normal. There is left lateral scalp soft tissue swelling. There is left face soft tissue swelling. IMPRESSION: 1. Normal aging brain. Reviewed, dictated and finalized at location A. IMPRESSION: 1. Normal aging brain.
--- NOTE | 2020-09-30 14:23 | ECG_ITS ---
Measurements Intervals [place] Rate: 59 P: 125 ID: 238 QRS: -50 QRSD: 158 T: -5 QT: 425 QTc: 424 Interpretive Statements ELECTRONIC ATRIAL PACEMAKER RIGHT BUNDLE BRANCH BLOCK LEFT ANTERIOR FASCICULAR BLOCK ABNORMAL ECG Electronically Signed On 09-30-2020 14:28:06 CDT by Carlos Heck D.O.
--- NOTE | 2020-09-30 15:13 | ED.DIZZY ---
HPI - Dizziness General Chief Complaint: Dizziness Stated Complaint: dizzy, headaches, covid positive Time Seen by Provider: 09/30/20 15:00 Source: RN notes reviewed History of Present Illness HPI Narrative: Patient presents emergency department from home for dizziness. Patient states he was diagnosed with COVID-19 approximately 1 week ago. States that today he is feeling dizzy worse with getting up and ambulating he states that this is associated with a increased feeling of shortness of breath today he denies any fevers or chills chest pain abdominal pain nausea vomiting or any other symptoms he denies having any numbness or tingling of the extremities Related Data Home Medications Medication Instructions Recorded Confirmed furosemide 40 mg PO QPM 01/19/20 09/07/20 furosemide 60 mg PO DIRECTED 01/19/20 09/07/20 pantoprazole 40 mg PO QAM 01/19/20 09/07/20 potassium chloride 10 meq PO BID 01/19/20 09/07/20 Adult One Daily Multivitamin 1 tablet PO QAM 02/25/20 09/07/20 albuterol sulfate [ProAir HFA] 2 inh INHALATION PRN PRN 02/25/20 09/07/20 aspirin [Aspirin Low Dose] 81 mg PO QAM 02/25/20 09/07/20 levalbuterol HCl 1 mg INHALATION TID 02/25/20 09/07/20 oxybutynin chloride 15 mg PO DAILY 03/11/20 09/07/20 spironolactone 25 mg PO HS 03/11/20 09/07/20 pramipexole 2 mg PO HS 08/10/20 09/07/20 tamsulosin 0.4 mg PO 08/10/20 09/07/20 Allergies Allergy/AdvReac Type Severity Reaction Status Date / Time menthol AdvReac Severe BROWER SKIN Verified 09/30/20 14:36 Review of Systems Review of Systems: Narrative: Gen.: Denies fevers or chills Eyes: Denies eye pain or visual change ENT: Denies congestion Respiratory: Reports shortness of breath CV: Denies chest pain or palpitations GI: Denies abdominal pain nausea, emesis or diarrhea Musculoskeletal: Denies back pain or muscle pain Neuro: Reports dizziness Skin: Denies rash Except as documented, all other systems reviewed and negative PMFSH Past Medical History Medical History Adrenal adenoma stable on imaging since 2017 Benign prostatic hyperplasia (BPH) with urinary urge incontinence the patient is in test debating a bladder stimulator placement March [address] Sargent Bilateral cataracts maturing BMI 40.0-44.9, adult Brugada syndrome C. 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 Complex sleep apnea syndrome Diabetes mellitus type 2, diet-controlled hemoglobin A1c of 6.03 August 2019 Diaphragm paralysis GERD (gastroesophageal reflux disease) Hearing loss in left ear Kidney stones Low testosterone Lumbar degenerative disc disease Mixed hyperlipidemia Morbid (severe) obesity due to excess calories Neurofibromatosis Pulmonary embolism Rash Spinal stenosis, lumbar region with neurogenic claudication Thoracic aortic aneurysm (TAA) measuring 4.5 cm on CTA from 2018 Thyroid nodule status post biopsy with benign pathology Surgical History Surgical History AICD (automatic cardioverter/defibrillator) present Biceps tendon rupture status post repair History of appendectomy History of arthroscopy of left knee due to meniscal tear History of colonoscopy with polypectomy History of prostatectomy with chronic urinary incontinence Status post left rotator cuff repair Status post trigger finger release bilateral Family History Family History Father Cerebrovascular accident Neurofibromatosis Coronary artery disease Diabetes mellitus CHF (congestive heart failure) Acute myocardial infarction
--- NOTE | 2020-09-30 15:18 | PC.NURSE ---
Pt to radiology via stretcher at this time.
[2020-09-30] MEDS: ALBUTEROL SULFATE NEB 2.5 MG/0.5 ML INH 5 MG INHALATION (15:29)
[2020-09-30] MEDS: SODIUM CHLORIDE 0.9% IV 1,000 ML 999 ML IV CONT (16:09)
[2020-09-30 16:18] LABS: Basophils Percent Auto 0.3 % (0.2-1.2); Eosinophils Absolute Auto 0.1 K/mm3 (0-0.3); Hematocrit 46.6 % (42.0-52.0); Immature Granulocyte Absolute 0.07 K/mm3 (0.00-0.031); Lymphocytes Absolute Auto 1.15 K/mm3 (0.9-3.2); Mean Corpuscular HGB Conc 32.2 g/dl (32-36); Mean Corpuscular Hemoglobin 28.1 pg (26-34); Mean Corpuscular Volume 87.4 fl (80-100); Mean Platelet Volume 10.4 fl (7.4-10.4); Monocytes Absolute Auto 0.5 K/mm3 (0.1-0.6); Monocytes Percent Auto 7.4 % (2.6-8.5); Neutrophils Absolute Auto 5.3 K/mm3 (1.3-6.7); Neutrophils Percent Auto 74.3 % (45.5-73.1); Platelet Count Result 210 k/mm3 (150-375); Red Blood Count 5.33 M/mm3 (4.6-6.20); Red Cell Distribution Width 14.8 % (11.5-14.5); White Blood Count 7.2 K/mm3 (4.5-10.0)
[2020-09-30 16:27] LABS: INR 0.9; Prothrombin Time 12.4 Seconds (11.1-14.7)
[2020-09-30 16:28] LABS: Partial Thromboplastin Time 28.5 SECONDS (22.3-36.8)
[2020-09-30 16:29] LABS: Alanine Aminotransferase 30 U/L (4-50); Albumin Level 4.6 g/dL (3.5-5.1); Alkaline Phosphatase 79 U/L (38-126); Anion Gap 7 mmol/L (8-16); Aspartate Amino Transferase 26 U/L (17-59); Bilirubin,Total 0.5 mg/dL (0.2-1.3); Blood Urea Nitrogen 27 mg/dL (9-20); Calcium 9.3 mg/dL (8.4-10.2); Carbon Dioxide 33 mmol/L (22-30); Chloride 103 mmol/L (98-107); Estimated CRCL calculation 119 ml/min; Estimated Glomerular Filt Rate > 60; Glucose 106 mg/dL (75-110); Potassium 4.5 mmol/L (3.4-5.0); Sodium 143 mmol/L (137-145)
[2020-09-30 16:34] LABS: Add Urine Microscopic? YES; Appearance Urine Clear (Clear); Bilirubin Urine Negative (Negative); Blood Urine Negative (Negative); Color Urine Straw (Yellow); Glucose Urine UA Negative (Negative); Ketones Urine Negative (Negative); Leukocyte Esterase Ur Negative LEU/UL (Negative); Mucus Urine Rare /lpf; Nitrate Urine Negative (Negative); Protein Urine Negative (Negative); RBC Urine 0-2 /hpf (0-2); Specific Grav Ur 1.013 (1.001-1.035); Urobilinogen Urine Negative mg/dL (<2.0)
[2020-09-30 16:37] LABS: D Dimer 0.47 ug/mL (<0.48)
[2020-09-30] MEDS: MECLIZINE HCL 12.5 MG TABLET PO (18:17)
--- NOTE | 2020-09-30 22:44 | PM.IMHP ---
H&P: HPI History of Present Illness Date/Time: 09/30/20 22:44 Chief Complaint: dizziness and generalized weakness+ Narrative: This is a 65 year old moribidly obese diabetic male who is known to have COVID-19 symptoms for 1.5 weeks and tested positive for COVID-19 one week ago presented to the hospital today with a complaint of dizziness, body aches, and generalized weakness. The patient has ongoing mild shortness of breath. He reports sporadic nonproductive coughing. No chest pain, fevers, chills, palpitations, abdominal pain, dysuria, hematuria, numbness, tingling, or focal weakness. The patient has been having diarrhea. While in the ER today the patient has not required any supplemental oxygen and his oxygen sats on my encounter with him are 97%. Routine labs were obtained and were unremarkable. Brain CT was obtained and was also unremarkable. The patient was admitted to the hospital for observation. No other complaints. Review of Systems Review of Systems: All systems reviewed & are unremarkable except as noted in HPI and below PMFSH Past Medical History Medical History Adrenal adenoma stable on imaging since 2018 Benign prostatic hyperplasia (BPH) with urinary urge incontinence the patient is in test debating a bladder stimulator placement March [address] Sargent Bilateral cataracts maturing BMI 40.0-44.9, adult Brugada syndrome C. 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 Complex sleep apnea syndrome Diabetes mellitus type 2, diet-controlled hemoglobin A1c of 6.03 August 2019 Diaphragm paralysis GERD (gastroesophageal reflux disease) Hearing loss in left ear Kidney stones Low testosterone Lumbar degenerative disc disease Mixed hyperlipidemia Morbid (severe) obesity due to excess calories Neurofibromatosis Pulmonary embolism Rash Spinal stenosis, lumbar region with neurogenic claudication Thoracic aortic aneurysm (TAA) measuring 4.5 cm on CTA from 2019 Thyroid nodule status post biopsy with benign pathology Surgical History Surgical History AICD (automatic cardioverter/defibrillator) present Biceps tendon rupture status post repair History of appendectomy History of arthroscopy of left knee due to meniscal tear History of colonoscopy with polypectomy History of prostatectomy with chronic urinary incontinence Status post left rotator cuff repair Status post trigger finger release bilateral Family History Family History Father Cerebrovascular accident Neurofibromatosis Coronary artery disease Diabetes mellitus CHF (congestive heart failure) Acute myocardial infarction Mother Breast cancer Grandparent Alcoholism Sibling Thyroid cancer sister Sibling Depression Breast cancer Sibling Depression Adrenal cancer sister Sibling Depression Social History Social History Social History: the patient briefly smoked while in college. He drinks 1-2 beers a week. He lives in [place] with his of 40 years. They have 3 children who are healthy and 3 grand children. 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 Code status: Full code durable power of sports attorney for healthcare: Claudine () Years smoked: 3 Smoking status: Former smoker Second hand tobacco smoke exposure: No Alcohol intake: current Drinks per week: 1 Substance use: never Substance use type: does not use Additional living arrangements com
[2020-10-01] VITALS (7 sets, daily range): BP systolic 118–150; BP diastolic 55–71; PULSE 59–92; RESP 16–20; TEMP 36.2–36.7; O2SAT 94–97; BMI 41.8
--- NOTE | 2020-10-01 00:15 | PC.NURSE ---
Pt on cart sleeping with call button and personal items within reach. Vitals remain stable. Pt in no obvious distress at this time.
--- NOTE | 2020-10-01 01:14 | ADMGEN ---
This patient, Rah Greco, was admitted to [facility] Room 325-01. Patient/family oriented to hospital policies and general routines including ID bracelet, bed and alarms, visiting hours, pain management, procedures, bathroom and other care routines, personal items, smoking policy, room service/diet, and visiting hours. Information on how to activate the Rapid Response Team has been discussed. Patient/Family are encouraged to report perceived risks to care and to ask questions if they do not understand what they are told or what they should do.
[2020-10-01 01:37] LABS: Glucose Point of Care 106 (65-105)
[2020-10-01] MEDS: ALBUTEROL SULFATE (*SP) INHALER 2 PUFF INHALATION ×2 (02:30→08:43)
[2020-10-01] MEDS: SODIUM CHLORIDE 0.9% IV 1,000 ML 75 ML IV CONT (02:48)
[2020-10-01 06:23] LABS: Basophils Percent Auto 0.1 % (0.2-1.2); Eosinophils Absolute Auto 0.1 K/mm3 (0-0.3); Eosinophils Percent Auto 0.9 % (0-4.4); Hematocrit 40.6 % (42.0-52.0); Hemoglobin 13.3 g/dL (14.0-18.0); Immature Granulocyte Absolute 0.05 K/mm3 (0.00-0.031); Immature Granulocyte Percent A 0.6 % (0-0.5); Lymphocytes Percent Auto 12.2 % (18.3-44.2); Mean Corpuscular HGB Conc 32.8 g/dl (32-36); Mean Corpuscular Hemoglobin 27.8 pg (26-34); Mean Corpuscular Volume 84.8 fl (80-100); Mean Platelet Volume 10.6 fl (7.4-10.4); Monocytes Absolute Auto 0.7 K/mm3 (0.1-0.6); Monocytes Percent Auto 8.3 % (2.6-8.5); Neutrophils Absolute Auto 6.4 K/mm3 (1.3-6.7); Neutrophils Percent Auto 77.9 % (45.5-73.1); Platelet Count Result 180 k/mm3 (150-375); Red Blood Count 4.79 M/mm3 (4.6-6.20); Red Cell Distribution Width 14.5 % (11.5-14.5); White Blood Count 8.2 K/mm3 (4.5-10.0)
[2020-10-01 06:34] LABS: Anion Gap 5 mmol/L (8-16); Blood Urea Nitrogen 19 mg/dL (9-20); Calcium 8.7 mg/dL (8.4-10.2); Carbon Dioxide 28 mmol/L (22-30); Chloride 108 mmol/L (98-107); Estimated CRCL calculation 120 ml/min; Estimated Glomerular Filt Rate > 60; Glucose 142 mg/dL (75-110); Potassium 3.6 mmol/L (3.4-5.0); Sodium 141 mmol/L (137-145)
[2020-10-01] MEDS: ACETAMINOPHEN 325 MG TABLET 650 MG PO (08:34)
[2020-10-01] MEDS: ASPIRIN 81 MG ENTERIC TABLET PO (08:35)
[2020-10-01] MEDS: MULTIVITAMINS THERAPEUTIC TAB (*BKC) 1 TABLET PO (08:35)
[2020-10-01] MEDS: ENOXAPARIN 40 MG/0.4 ML SYRINGE SUB-Q (08:35)
[2020-10-01] MEDS: PANTOPRAZOLE 40 MG TABLET PO (08:36)
[2020-10-01] MEDS: PRAMIPEXOLE 1 MG TABLET PO (08:36)
[2020-10-01] MEDS: MECLIZINE HCL 12.5 MG TABLET PO (08:38)
--- NOTE | 2020-10-01 15:38 | PM.DS ---
DS: Admitting Diagnosis Admitting Diagnosis Admitting Diagnosis: Dizziness DS: Discharge Diagnosis Discharge Diagnosis (1) Dizziness: Code(s): R42 - Dizziness and giddiness Status: Acute Assessment and Plan: Patient present with dizziness. He was treated with Meclizine and IV fluids. He had clinical improvement. He has been up walking to the bathroom with only minimal dizziness. Dizziness probably related to COVID. He feels ready for discharge. (2) COVID-19: Code(s): U07.1 - COVID-19 Status: Acute Assessment and Plan: The patient has had both vaccine shots. He believes he contracted COVID in the time frame between the injections. He is not requiring O2. CXR showing no acute cardiopulmonary disease. He was treated with supportive care and we instituted droplet isolation. (3) GERD (gastroesophageal reflux disease): Qualifiers: Esophagitis presence: esophagitis presence not specified Qualified Code(s): K21.9 - Gastro-esophageal reflux disease without esophagitis Code(s): K21.9 - Gastro-esophageal reflux disease without esophagitis Status: Chronic Assessment and Plan: Stable. We continued PPI therapy. (4) Mixed hyperlipidemia: Code(s): E78.2 - Mixed hyperlipidemia Status: Chronic Assessment and Plan: LFTs normal. We continued his Crestor. (5) CHF (congestive heart failure): Qualifiers: Heart failure type: unspecified Heart failure chronicity: unspecified Qualified Code(s): I50.9 - Heart failure, unspecified Code(s): I50.9 - Heart failure, unspecified Status: Chronic Assessment and Plan: Compensated. Home medications continued. DS: Summary Hospital Course Reason for hospitalization: 65yo male who was recently diagnosed with COVID here for dizziness. Please see H&P for details Hospital Course: Please see above for details of hospital course. Status at Discharge Cognitive/behavioral status at discharge: Stable Time Spent with Patient Time attestation: Total time spent providing and/or coordinating discharge services: 34 minutes Time spent: Greater than 30 minutes Exam Narrative: Exam Narrative: AF 97.1 130/55 60 16 95% ra Gen - NARD sitting at the side the bed Chest - CTA bilaterally, nml RR CV - RRR S1/S2 telemetry showing mostly paced rhythm. Abd - Soft, NT/ND, Positive BS Ext - trace pedal edema Psych - Nml mood and affect Skin - Warm and dry DS: Data Data Completed and Pending Labs on day of discharge: Labs from last 24 hours 10/01/20 10/01/20 10/01/20 06:08 06:08 01:32 WBC 8.2 RBC 4.79 Hgb 13.3 L Hct 40.6 L MCV 84.8 MCH 27.8 MCHC 32.8 RDW 14.5 Plt Count 180 MPV 10.6 H Immature Gran % (Auto) 0.6 H Neut % (Auto) 77.9 H Lymph % (Auto) 12.2 L [place] % (Auto) 8.3 Eos % (Auto) 0.9 Baso % (Auto) 0.1 L Lymph # (Auto) 1.00 [place] # (Auto) 0.7 H Eos # (Auto) 0.1 Baso # (Auto) 0.0 Abs Immat Gran (auto) 0.05 H Absolute Neuts (auto) 6.4 Absolute Nucleated RBC 0.0 Nucleated RBC % 0.0 PT INR APTT D-Dimer Sodium 141 Potassium 3.6 Chloride 108 H Carbon Dioxide 28 Anion Gap 5 L BUN 19 Creatinine 0.70 Estim Creat Clear Calc 120 Estimated GFR > 60 Glucose 142 H POC Capillary Glucose 106 Calcium 8.7 Total Bilirubin AST ALT Alkaline Phosphatase Total Protein Albumin Urine Color Urine Appearance Urine pH Ur Specific Flanagan Urine Protein Urine Glucose (UA) Urine Ketones Ur Blood (Man) Urine Nitrate Urine Bilirubin Urine Urobilinogen Leukocyte Esterase Rfl Urine RBC Hyaline Casts Urine Mucus 09/30/20 09/30/20 09/30/20 16:25 16:12 16:11 WBC RBC Hgb Hct MCV MCH MCHC RDW Plt Count MPV Immature Gran % (Auto)
== END 2020-10-01 16:45 | disposition home or self-care (01) ==
LOC: ANHED 18:14 → ANH3MEDSUR 19:15
PROVIDERS: Admitting Provider Internal Medicine; Emergency Provider Emergency Medicine; PCP Family Medicine; Visit Provider Internal Medicine
DX: R42 Dizziness and giddiness (principal); U07.1 COVID-19; R53.1 Weakness; R06.02 Shortness of breath; R19.7 Diarrhea, unspecified; E78.2 Mixed hyperlipidemia; E11.9 Type 2 diabetes mellitus without complications; I50.30 Unspecified diastolic (congestive) heart failure; K21.9 Gastro-esophageal reflux disease without esophagitis; N39.41 Urge incontinence; I49.8 Other specified cardiac arrhythmias; G47.39 Other sleep apnea; M47.22 Other spondylosis with radiculopathy, cervical region; H26.9 Unspecified cataract; M51.36 Other intervertebral disc degeneration, lumbar region; Q85.00 Neurofibromatosis, unspecified; M48.062 Spinal stenosis, lumbar region with neurogenic claudication; I71.2 Thoracic aortic aneurysm, without rupture; D35.00 Benign neoplasm of unspecified adrenal gland; Z79.82 Long term (current) use of aspirin; Z79.51 Long term (current) use of inhaled steroids; Z95.810 Presence of automatic (implantable) cardiac defibrillator; Z87.891 Personal history of nicotine dependence
CPT/HCPCS: 36415; 70450; 71045; 80048; 80053; 81001; 85025; 85380; 85610; 85730; 93005; 94640; 96361; 96365; 96372; 99285; A9270; G0378; J0131; J1650; J7030

== ENCOUNTER 2020-11-11 13:22 | Emergency (ER) | payer MEDICARE, SELFPAY ==
--- NOTE | ~2020-11-11 | CT_ITS ---
EXAMINATION: CT abdomen pelvis w con EXAM DATE: 11/11/2020 19:03 INDICATION: Low abdominal pain. Incontinent. TECHNIQUE: Spiral CT of the abdomen and pelvis was performed following intravenous injection of 100 m L Omnipaque 350. Axial, coronal and sagittal images of the abdomen and pelvis were reviewed. The do se-length product (DLP) for this examination was 1516.23 mGy-cm. The exposure was tailored according to patient size (auto mA exposure control), and iterative reconstruction (ASIR) was used as addition al dose reduction technique. There is no prior study for comparison. FINDINGS: There was contrast extravasation, this is essentially a noncontrast exam. There is a 1.3 c m left adrenal adenoma. Splenic and liver granulomata. Right adrenal gland, pancreas are unremarkable . Gallbladder is unremarkable. No biliary obstruction. There is a 5 mm left mid calyceal stone. Th ere is a 3.5 cm left renal cyst. Prostate is unremarkable. The bladder is unremarkable. There is n o retroperitoneal or pelvic lymphadenopathy. There is mild scattered arteriosclerotic disease. There are no findings to suggest appendicitis. The stomach and small bowel are unremarkable. There is expected amount of colonic stool. There is mild scattered colonic and jejunal colonic diverticulos is. There is no adjacent inflammatory change to suggest diverticulitis. No free intraperitoneal ga s. Pacemaker/AICD device. There is a sacral neural stimulator extending through the left S3 neural foramina. There is cardiomegaly. The lung bases are unremarkable. Mild lumbar levoscoliosis. There a re no osteoblastic or osteolytic lesions identified. IMPRESSION: 1. No acute intra-abdominal findings. 2. Left nephrolithiasis. 3. Left adrenal adenoma. 4. Colonic, jejunal diverticulosis. Reviewed, dictated and finalized at location A.
--- NOTE | ~2020-11-11 | XR_ITS ---
XR chest 1V portable DATE: 11/11/2020 16:13 INDICATION: Shortness of breath, congestive heart failure TECHNIQUE: AP chest on 11/11/2020 1614 hours COMPARISON: 09/30/2020 portable AP chest FINDINGS: Left AICD/pacemaker device with leads overlying right atrium and right ventricle. Cardiomegaly. There is pulmonary vascular redistribution which may indicate mild pulmonary venous hypertension. Mild infiltrate or atelectasis is suggested in the lower lung zones. No pleural effusion or pneumotho rax is evident. Diffuse osteopenia. IMPRESSION: Cardiomegaly Left AICD/pacemaker device Pulmonary vascular distribution may indicate mild pulmonary venous hypertension; clinical correlation is advised Mild infiltrate or atelectasis at the lung bases Reviewed, dictated and finalized at location A. IMPRESSION: Cardiomegaly Left AICD/pacemaker device Pulmonary vascular distribution may indicate mild pulmonary venous hypertension ; clinical correlation is advised Mild infiltrate or atelectasis at the lung bases
[2020-11-11 13:25] VITALS: BP 134/92; PULSE 68; RESP 20; TEMP 36.1; O2SAT 96
[2020-11-11 14:00] LABS: Add Urine Microscopic? YES; Appearance Urine Clear (Clear); Bacteria Urine Trace /hpf; Bilirubin Urine Negative (Negative); Blood Urine Negative (Negative); Color Urine Yellow (Yellow); Glucose Urine UA Negative (Negative); Ketones Urine Trace mg/dL (Negative); Leukocyte Esterase Ur Negative LEU/UL (Negative); Mucus Urine Rare /lpf; Nitrate Urine Negative (Negative); Protein Urine 1+ mg/dL (Negative); RBC Urine 0-2 /hpf (0-2); Specific Grav Ur 1.027 (1.001-1.035); Squamous Epithelial Cell Urine Rare /hpf (Few); Urobilinogen Urine Negative mg/dL (<2.0); WBC Urine 0-3 /hpf
[2020-11-11 15:59] VITALS: BP 124/67; PULSE 62; RESP 19; O2SAT 98
[2020-11-11 16:01] LABS: Alveolar/Arterial O2 Gradient 34.7 mmHg; Base Excess ABG 1.2 mEq/l (+/-2.0); Carboxyhemoglobin 0.8 % THb (0-2.0); Fractional Inspired Oxygen 21 %; HCO3 ABG 25.4 mEq/l (22.0-26.0); Methemoglobin ABG 0.3 %THb (0-1.5); Oxygen Content ABG 18.7 %vol (16.0-22.0); Oxygen Saturation ABG 94.2 % (95.0-100.0); Oxyhemoglobin 92.8 % THb (90.0-100.0); PO2 ABG 68.3 mmHg (80.0-100.0); PO2 FiO2 Ratio Arterial Blood 3.25 %; Reduced Hemoglobin 6.1 %THb (0-5.0); Total Hemoglobin 14.3 g/dL (12.0-18.0); pH ABG 7.432 (7.350-7.450)
[2020-11-11 16:04] LABS: Device ROOM AIR; Modified Allen's Test Pass; Site Drawn LEFT RADIAL
[2020-11-11 16:13] LABS: Basophils Percent Auto 0.3 % (0.2-1.2); Eosinophils Absolute Auto 0.1 K/mm3 (0-0.3); Eosinophils Percent Auto 1.3 % (0-4.4); Hematocrit 44.4 % (42.0-52.0); Hemoglobin 14.2 g/dL (14.0-18.0); Immature Granulocyte Absolute 0.05 K/mm3 (0.00-0.031); Immature Granulocyte Percent A 0.6 % (0-0.5); Lymphocytes Absolute Auto 1.31 K/mm3 (0.9-3.2); Lymphocytes Percent Auto 16.7 % (18.3-44.2); Mean Corpuscular Hemoglobin 28.7 pg (26-34); Mean Corpuscular Volume 89.7 fl (80-100); Mean Platelet Volume 10.1 fl (7.4-10.4); Monocytes Absolute Auto 0.6 K/mm3 (0.1-0.6); Monocytes Percent Auto 7.5 % (2.6-8.5); Neutrophils Absolute Auto 5.8 K/mm3 (1.3-6.7); Neutrophils Percent Auto 73.6 % (45.5-73.1); Platelet Count Result 205 k/mm3 (150-375); Red Blood Count 4.95 M/mm3 (4.6-6.20); White Blood Count 7.8 K/mm3 (4.5-10.0)
[2020-11-11 16:25] LABS: Alanine Aminotransferase 24 U/L (4-50); Albumin Level 4.5 g/dL (3.5-5.1); Alkaline Phosphatase 62 U/L (38-126); Anion Gap 4 mmol/L (8-16); Aspartate Amino Transferase 29 U/L (17-59); Bilirubin,Total 0.7 mg/dL (0.2-1.3); Blood Urea Nitrogen 22 mg/dL (9-20); Carbon Dioxide 32 mmol/L (22-30); Chloride 106 mmol/L (98-107); Estimated CRCL calculation 121 ml/min; Estimated Glomerular Filt Rate > 60; Glucose 117 mg/dL (75-110); Potassium 4.1 mmol/L (3.4-5.0); Sodium 142 mmol/L (137-145)
[2020-11-11 16:34] LABS: NT Pro B Type Natriuretic Pept 71 pg/mL (5-100)
--- NOTE | 2020-11-11 17:23 | ED.ABDPAIN ---
HPI - Abdominal Pain General Chief Complaint: Urogenital-Male Stated Complaint: urinary symptoms Time Seen by Provider: 11/11/20 15:09 Source: patient and family Mode of arrival: ambulatory Limitations: no limitations History of Present Illness HPI narrative: This is a 65 year old male with history of urinary incontinence who presents for evaluation of decrease urination. He states for years he has had to deal with incontinence. He states today he feels like he needs to urinate but only a small amount comes out. He also reports lower abdominal pain and pressure. He has nausea but no vomiting. He denies history enlarge prostate or urinary retention. Related Data Home Medications Medication Instructions Recorded Confirmed furosemide 60 mg PO DIRECTED 01/19/20 10/12/20 pantoprazole 40 mg PO QAM 01/19/20 10/12/20 Adult One Daily Multivitamin 1 tablet PO QAM 02/25/20 10/12/20 albuterol sulfate [ProAir HFA] 2 inh INHALATION PRN PRN 02/25/20 10/12/20 aspirin [Aspirin Low Dose] 81 mg PO QAM 02/25/20 10/12/20 levalbuterol HCl 1 mg INHALATION TID 02/25/20 10/12/20 oxybutynin chloride 15 mg PO DAILY 03/11/20 10/12/20 spironolactone 25 mg PO HS 03/11/20 10/12/20 tamsulosin 0.4 mg PO HS 08/10/20 10/12/20 triamcinolone acetonide 1 applic TOPICAL PRN 10/01/20 10/12/20 Allergies Allergy/AdvReac Type Severity Reaction Status Date / Time menthol AdvReac Severe BROWER SKIN Verified 10/12/20 16:06 Review of Systems Review of Systems: All systems reviewed & are unremarkable except as noted in HPI and below Constitutional: Constitutional: Denies chills and Denies fever(s) Gastrointestinal: Gastrointestinal: Reports abdominal pain and Reports nausea Genitourinary: Genitourinary: Denies hematuria, Reports oliguria, Reports dysuria and Reports urinary frequency Musculoskeletal: Musculoskeletal: Denies back pain PMFSH Past Medical History Medical History Adrenal adenoma stable on imaging since 2018 Benign prostatic hyperplasia (BPH) with urinary urge incontinence the patient is in test debating a bladder stimulator placement March [address] Sargent Bilateral cataracts maturing BMI 40.0-44.9, adult Brugada syndrome C. 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 Complex sleep apnea syndrome Diabetes mellitus type 2, diet-controlled hemoglobin A1c of 6.03 August 2019 Diaphragm paralysis GERD (gastroesophageal reflux disease) Hearing loss in left ear Kidney stones Low testosterone Lumbar degenerative disc disease Mixed hyperlipidemia Morbid (severe) obesity due to excess calories Neurofibromatosis Pulmonary embolism Rash Spinal stenosis, lumbar region with neurogenic claudication Thoracic aortic aneurysm (TAA) measuring 4.5 cm on CTA from 2018 Thyroid nodule status post biopsy with benign pathology Surgical History Surgical History AICD (automatic cardioverter/defibrillator) present Biceps tendon rupture status post repair History of appendectomy History of arthroscopy of left knee due to meniscal tear History of colonoscopy with polypectomy History of prostatectomy with chronic urinary incontinence Status post left rotator cuff repair Status post trigger finger release bilateral Family History Family History Father Cerebrovascular accident Neurofibromatosis Coronary artery disease Diabetes mellitus CHF (congestive heart failure) Acute myocardial infarction Mother Breast cancer Grandparent Alcoholism Sibling
--- NOTE | 2020-11-11 17:36 | PC.NURSE ---
x2 attempts for IV access unsuccessful at this time
[2020-11-11 18:46] VITALS: BP 129/87; PULSE 61; RESP 18; O2SAT 97
[2020-11-11 20:08] VITALS: BP 131/74; PULSE 63; RESP 17; O2SAT 98
== END 2020-11-11 20:10 | disposition home or self-care (01) ==
PROVIDERS: Emergency Medicine; Emergency Provider General Practice; PCP Family Medicine
DX: N40.1 Benign prostatic hyperplasia with lower urinary tract symptoms (principal); N39.498 Other specified urinary incontinence; I50.9 Heart failure, unspecified; E11.9 Type 2 diabetes mellitus without complications; K21.9 Gastro-esophageal reflux disease without esophagitis; E78.2 Mixed hyperlipidemia; E66.01 Morbid (severe) obesity due to excess calories; Z68.41 Body mass index [BMI] 40.0-44.9, adult; Q85.00 Neurofibromatosis, unspecified; G47.30 Sleep apnea, unspecified; I49.8 Other specified cardiac arrhythmias; H26.9 Unspecified cataract; Z86.711 Personal history of pulmonary embolism; Z95.810 Presence of automatic (implantable) cardiac defibrillator; Z90.79 Acquired absence of other genital organ(s); I51.7 Cardiomegaly; Z87.442 Personal history of urinary calculi; N20.0 Calculus of kidney; K57.10 Diverticulosis of small intestine without perforation or abscess without bleeding; Z79.82 Long term (current) use of aspirin
CPT/HCPCS: 36415; 36600; 71045; 74177; 80053; 81001; 82375; 82805; 83050; 83880; 85025; 99284; Q9967

== ENCOUNTER 2021-02-01 07:35 | Outpatient (CLI) | payer MEDICARE, SELFPAY ==
[2021-02-01 08:10] LABS: Anion Gap 9 mmol/L (8-16); Blood Urea Nitrogen 21 mg/dL (9-20); Calcium 9.5 mg/dL (8.4-10.2); Carbon Dioxide 29 mmol/L (22-30); Chloride 100 mmol/L (98-107); Estimated Glomerular Filt Rate > 60; Glucose 116 mg/dL (65-110); Sodium 138 mmol/L (137-145)
== END 2021-02-01 07:36 | disposition home or self-care (01) ==
LOC: ANHSURGERY 07:38
PROVIDERS: Anesthesiology; PCP Family Medicine; Visit Provider Urology
DX: Z01.818 Encounter for other preprocedural examination (principal); I10 Essential (primary) hypertension
CPT/HCPCS: 36415; 80048

== ENCOUNTER 2021-02-03 00:42 | Day surgery (SDC) | payer MEDICARE, SELFPAY ==
[2021-01-31 09:11] VITALS: BMI 39.9
--- NOTE | 2021-02-02 14:54 | WPDANESEPPF ---
Anes - Initial Pre Proc Eval Procedure: Operation Date: 02/03/21 11:30 Proposed Procedures p Cystoscopy, Placement of Catheter - Roc Schmidt MD Date/Time: 02/02/21 14:54 Surgeon: Roc Schmidt MD Pre Op Diagnosis: Urinary Retention Patient Data Age: 65 Gender: M Height: 1.75 m Weight: 122.5 kg Allergies Allergy/AdvReac Type Severity Reaction Status Date / Time menthol AdvReac Severe BROWER SKIN Verified 02/03/21 10:00 Home Medications Medication Instructions Recorded Confirmed Type furosemide 60 mg PO DIRECTED 01/19/20 01/31/21 History pantoprazole 40 mg PO QAM 01/19/20 01/31/21 History Adult One Daily Multivitamin 1 tablet PO QAM 02/25/20 01/31/21 History albuterol sulfate [ProAir HFA] 2 inh INHALATION PRN PRN 02/25/20 01/31/21 History aspirin [Aspirin Low Dose] 81 mg PO QAM 02/25/20 01/31/21 History levalbuterol HCl 1 mg INHALATION TID 02/25/20 01/31/21 History oxybutynin chloride 15 mg PO DAILY 03/11/20 01/31/21 History spironolactone 25 mg PO HS 03/11/20 01/31/21 History tamsulosin 0.4 mg PO HS 08/10/20 01/31/21 History gabapentin 300 mg capsule 900 mg PO HS #180 cap 08/23/20 01/31/21 Rx meclizine 12.5 mg PO QID PRN #20 tablet 10/01/20 01/31/21 Rx pramipexole 1 mg tablet See Rx Instructions .ROUTE 10/07/20 02/03/21 Rx .COMPLEX #90 tablet rosuvastatin 20 mg tablet 20 mg PO HS #90 tablet 11/08/20 01/31/21 Rx budesonide-formoterol [Symbicort] 2 puff INHALATION BID 01/31/21 01/31/21 History nystatin 1 applic TOPICAL DAILY 01/31/21 01/31/21 History Patient hx anesthesia problems: none Family hx anesthesia problems: none PMFSH Past Medical History Medical History Adrenal adenoma stable on imaging since 2018 Benign prostatic hyperplasia (BPH) with urinary urge incontinence the patient is in test debating a bladder stimulator placement March [address] Sargent Bilateral cataracts maturing BMI 40.0-44.9, adult Brugada syndrome C. 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 Complex sleep apnea syndrome Diabetes mellitus type 2, diet-controlled hemoglobin A1c of 6.03 August 2019 Diaphragm paralysis GERD (gastroesophageal reflux disease) Hearing loss in left ear Kidney stones Low testosterone Lumbar degenerative disc disease Mixed hyperlipidemia Morbid (severe) obesity due to excess calories Neurofibromatosis Pulmonary embolism Rash Spinal stenosis, lumbar region with neurogenic claudication Thoracic aortic aneurysm (TAA) measuring 4.5 cm on CTA from 2018 Thyroid nodule status post biopsy with benign pathology Surgical History Surgical History AICD (automatic cardioverter/defibrillator) present Biceps tendon rupture status post repair History of appendectomy History of arthroscopy of left knee due to meniscal tear History of colonoscopy with polypectomy History of prostatectomy with chronic urinary incontinence Status post left rotator cuff repair Status post trigger finger release bilateral Family History Family History Father Cerebrovascular accident Neurofibromatosis Coronary artery disease Diabetes mellitus CHF (congestive heart failure) Acute myocardial infarction Mother Breast cancer Grandparent Alcoholism Sibling Thyroid cancer sister Sibling Depression Breast cancer Sibling Depression Adrenal cancer sister Sibling Depression Social History Social History Social History: the patient briefly smoked
[2021-02-03] VITALS (8 sets, daily range): BP systolic 100–151; BP diastolic 56–109; PULSE 59–66; RESP 15–23; TEMP 36.7–36.9; O2SAT 94–100; BMI 40.6
[2021-02-03] MEDS: LACTATED RINGERS 1,000 ML 30 ML IV CONT (10:28)
[2021-02-03] MEDS: ceFAZolin 3 GM/D5W 100 ML 100 ML IVPB (10:49)
--- NOTE | 2021-02-03 11:34 | P.OP_ITS ---
Procedure Note - Detailed Date of Procedure 02/03/21 Pre-op Diagnosis Neurogenic bladder Post-op Diagnosis same Procedure Performed Cystoscopy, placement of suprapubic catheter Surgeon Roc Schmidt MD Anesthesia general Description of Procedure Patient is brought to the operative suite where he has prepped and draped in routine sterile fashion while in a dorsal lithotomy position. Cystoscopy is undertaken with a 21 F rigid cystoscope. He has no urethral strictures with moderate lateral lobe hyperplasia of the prostate. Bladder mucosa is normal with only minimal hyperemia in the posterior wall consistent with catheter cystitis. There is no intravesical foreign body or neoplasm. I filled his barney dder with saline and placed a spinal needle through the dome of the bladder 1035 in glidewire was advanced through that and grasped with the cystoscope. I dilated the suprapubic tract with Amplatz dilators to from 8 F to 22 F. I then placed an 16F Councill tip catheter through the dome. The suprapubic catheter secured with a 3-O nylon. Scopes and wires removed. Blood loss was approximately 5 cc. Drains Yes (16F s/p catheter) Packing No Pathology none sent Complications No immediate complications Condition stable Disposition PACU
--- NOTE | 2021-02-03 12:00 | WPDHPUPDATE1 ---
History and Physical Update Update Date/Time: 02/03/21 12:00 History and Physical has been reviewed, including an updated exam of the patient. There are NO changes in the patient's condition. Risks, benefits, and alternatives have been discussed and questions answered. Patient agrees to proceed with procedure.
== END 2021-02-03 13:40 | disposition home or self-care (01) ==
PROVIDERS: PCP Family Medicine; Visit Provider Urology
PROC: 0T9B30Z Drainage of Bladder with Drainage Device, Percutaneous Approach (ICD-10-PCS; CPT 51102; principal; 2021-02-03 11:30)
DX: N31.9 Neuromuscular dysfunction of bladder, unspecified (principal); D35.00 Benign neoplasm of unspecified adrenal gland; N40.1 Benign prostatic hyperplasia with lower urinary tract symptoms; N39.41 Urge incontinence; I49.8 Other specified cardiac arrhythmias; I50.30 Unspecified diastolic (congestive) heart failure; E11.9 Type 2 diabetes mellitus without complications; K21.9 Gastro-esophageal reflux disease without esophagitis; E78.2 Mixed hyperlipidemia; Q85.00 Neurofibromatosis, unspecified; I71.2 Thoracic aortic aneurysm, without rupture; E04.1 Nontoxic single thyroid nodule; G47.39 Other sleep apnea; E66.01 Morbid (severe) obesity due to excess calories; Z68.41 Body mass index [BMI] 40.0-44.9, adult; Z86.711 Personal history of pulmonary embolism; M46.82 Other specified inflammatory spondylopathies, cervical region; M48.062 Spinal stenosis, lumbar region with neurogenic claudication; Z95.810 Presence of automatic (implantable) cardiac defibrillator; Z79.51 Long term (current) use of inhaled steroids; Z79.82 Long term (current) use of aspirin
CPT/HCPCS: 51040; 36415; 80048; C1726; C1769; J0131; J0690; J1100; J2405; J2704; J3010; J7120

== ENCOUNTER 2021-02-12 19:15 | Emergency (ER) | payer MEDICARE, SELFPAY ==
[2021-02-12 19:18] VITALS: BP 123/65; PULSE 65; RESP 20; TEMP 36.7; O2SAT 97
--- NOTE | 2021-02-12 20:27 | PC.NURSE ---
Pt and family state they are here to be seen for penile pain/infection. Catheter noted to be patent and draining into urine collection bag at this time.
--- NOTE | 2021-02-12 20:52 | ED.GENADULT ---
HPI - General Adult General Chief complaint: Urogenital-Male Stated complaint: surgical complications, multiple infections Time Seen by Provider: 02/12/21 19:40 Source: patient and family Mode of arrival: ambulatory Limitations: no limitations History of Present Illness HPI narrative: Patient presents for evaluation of concerns he has regarding his suprapubic catheter and appearance of his genitals. He had a suprapubic cath placed on 02/03/21 for management of chronic incontinence that had failed more conservative measures. She was placed on oral Keflex following suprapubic catheter placement. He had a postoperative visit on 02/07/21 at which time he mentioned pain following the procedure and hematuria. Documentation from that visit indicates that he was placed on oral Bactrim. He states he followed up with his urologist yesterday was told that the culture performed grew out Pseudomonas. He reports redness at the insertion site of the catheter and has noted a thick purulent material around the glans of the penis. Reports pain in the right inguinal region and has noted intermittent hematuria. He has also experienced chills without fever. He has experienced nausea without vomiting. He states he contacted urology exchange and was advised to come here for further evaluation. He is diabetic and states that blood sugars are typically controlled with diet. However recently his blood sugars have increased with the most recent reading being 243 a few days ago. He had a culture performed, which I assume was urine culture, that grew out pseudomonas. He was changed to cipro by Dr Bruno yesterday. Related Data Home Medications Medication Instructions Recorded Confirmed furosemide 60 mg PO DIRECTED 01/19/20 01/31/21 pantoprazole 40 mg PO QAM 01/19/20 01/31/21 Adult One Daily Multivitamin 1 tablet PO QAM 02/25/20 01/31/21 albuterol sulfate [ProAir HFA] 2 inh INHALATION PRN PRN 02/25/20 01/31/21 aspirin [Aspirin Low Dose] 81 mg PO QAM 02/25/20 01/31/21 levalbuterol HCl 1 mg INHALATION TID 02/25/20 01/31/21 oxybutynin chloride 15 mg PO DAILY 03/11/20 01/31/21 spironolactone 25 mg PO HS 03/11/20 01/31/21 budesonide-formoterol [Symbicort] 2 puff INHALATION BID 01/31/21 01/31/21 nystatin 1 applic TOPICAL DAILY 01/31/21 01/31/21 Allergies Allergy/AdvReac Type Severity Reaction Status Date / Time menthol AdvReac Severe BROWER SKIN Verified 02/12/21 20:25 Review of Systems Review of Systems: CONSTITUTIONAL:Reports chills without fever EYES: Denies visual changes, redness, or discharge. ENT: Denies rhinorrhea, congestion, sore throat, or otalgia. CARDIOVASCULAR: Denies chest pain, palpitations, or edema. RESPIRATORY: Denies cough or dyspnea. GASTROINTESTINAL: Reports pain in right inguinal region without significant abdominal pain. Reports nausea without vomiting. GENITOURINARY: Reports hematuria. Denies dysuria or hematuria. SKIN: Reports redness around the insertion site of his suprapubic catheter. Reports mucopurulent fluid around the glans of the penis. MUSCULOSKELETAL: Denies back pain, joint pain, or myalgia. NEUROLOGIC: Denies headache, numbness, dizziness, or weakness. PSYCHIATRIC: Denies anxiety or depression. [facility] Past Medical History Medical History Adrenal adenoma stable on imaging since 2017 Benign prostatic hyperplasia (BPH) with urinary urge incontinence the patient is in test debating a bladder stimulator placement March [address] Sargent Bilateral cataracts maturing BMI 40.0-44.9, adult Brugada syndrome C. 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 Edwin ramirez ap
[2021-02-12 21:32] LABS: Basophils Percent Auto 0.5 % (0.2-1.2); Eosinophils Absolute Auto 0.5 K/mm3 (0-0.3); Eosinophils Percent Auto 5.7 % (0-4.4); Hematocrit 39.2 % (42.0-52.0); Hemoglobin 13.2 g/dL (14.0-18.0); Immature Granulocyte Absolute 0.03 K/mm3 (0.00-0.031); Immature Granulocyte Percent A 0.4 % (0-0.5); Lymphocytes Absolute Auto 1.09 K/mm3 (0.9-3.2); Lymphocytes Percent Auto 13.7 % (18.3-44.2); Mean Corpuscular HGB Conc 33.7 g/dl (32-36); Mean Corpuscular Hemoglobin 28.7 pg (26-34); Mean Corpuscular Volume 85.2 fl (80-100); Mean Platelet Volume 10.1 fl (7.4-10.4); Monocytes Absolute Auto 0.6 K/mm3 (0.1-0.6); Monocytes Percent Auto 7.5 % (2.6-8.5); Neutrophils Absolute Auto 5.8 K/mm3 (1.3-6.7); Neutrophils Percent Auto 72.2 % (45.5-73.1); Platelet Count Result 213 k/mm3 (150-375); Red Cell Distribution Width 13.7 % (11.5-14.5)
[2021-02-12 21:37] LABS: Add Urine Microscopic? YES; Appearance Urine Cloudy (Clear); Bilirubin Urine Negative (Negative); Blood Urine 3+ (Negative); Color Urine Yellow (Yellow); Glucose Urine UA Negative (Negative); Ketones Urine Trace mg/dL (Negative); Leukocyte Esterase Ur 3+ LEU/UL (Negative); Mucus Urine Rare /lpf; Nitrate Urine Positive (Negative); Protein Urine 2+ mg/dL (Negative); RBC Urine 21-50 /hpf (0-2); Specific Grav Ur 1.018 (1.001-1.035); Urobilinogen Urine Negative mg/dL (<2.0)
[2021-02-12 21:42] LABS: Alanine Aminotransferase 20 U/L (4-50); Alkaline Phosphatase 74 U/L (38-126); Anion Gap 10 mmol/L (8-16); Aspartate Amino Transferase 24 U/L (17-59); Bilirubin,Total 0.3 mg/dL (0.2-1.3); Blood Urea Nitrogen 17 mg/dL (9-20); Calcium 9.4 mg/dL (8.4-10.2); Carbon Dioxide 26 mmol/L (22-30); Chloride 97 mmol/L (98-107); Estimated CRCL calculation 94 ml/min; Estimated Glomerular Filt Rate > 60; Glucose 108 mg/dL (65-110); Potassium 3.6 mmol/L (3.4-5.0); Sodium 133 mmol/L (137-145)
[2021-02-12 21:51] VITALS: BP 118/73; PULSE 61; RESP 16; O2SAT 98
== END 2021-02-12 22:46 | disposition home or self-care (01) ==
PROVIDERS: Emergency Provider Nurse Practitioner; PCP Family Medicine
DX: T83.510A Infection and inflammatory reaction due to cystostomy catheter, initial encounter (principal); N39.0 Urinary tract infection, site not specified; B96.5 Pseudomonas (aeruginosa) (mallei) (pseudomallei) as the cause of diseases classified elsewhere; N40.1 Benign prostatic hyperplasia with lower urinary tract symptoms; N39.41 Urge incontinence; I49.8 Other specified cardiac arrhythmias; I50.9 Heart failure, unspecified; G47.39 Other sleep apnea; K21.9 Gastro-esophageal reflux disease without esophagitis; E11.9 Type 2 diabetes mellitus without complications; E78.2 Mixed hyperlipidemia; E66.01 Morbid (severe) obesity due to excess calories; Z68.41 Body mass index [BMI] 40.0-44.9, adult; Q85.00 Neurofibromatosis, unspecified; Z86.711 Personal history of pulmonary embolism; Z87.442 Personal history of urinary calculi; Z95.810 Presence of automatic (implantable) cardiac defibrillator; Z90.79 Acquired absence of other genital organ(s); H26.9 Unspecified cataract; Z87.891 Personal history of nicotine dependence
CPT/HCPCS: 36415; 80053; 81001; 85025; 87070; 87077; 87086; 87088; 87186; 87205; 99283

== ENCOUNTER 2021-05-09 14:29 | Outpatient (CLI) | payer MEDICARE, SELFPAY ==
--- NOTE | ~2021-05-09 | XR_ITS ---
EXAMINATION: XR abdomen/kub 1V INDICATION: Chronic urinary tract infection TECHNIQUE: Supine views of the abdomen were obtained on 2 radiographs. COMPARISON: 02/12/2014 FINDINGS: There is a 5 mm stone in the lower pole of the left kidney. The bowel gas pattern is normal . A suprapubic catheter is noted. A right-sided neurostimulator ends with its lead in the left pelvis . IMPRESSION: 1. Left nephrolithiasis. Reviewed, dictated and finalized at location B. POLE TREATER IMPRESSION: 1. Left nephrolithiasis.
--- NOTE | ~2021-05-09 | CT_ITS ---
EXAMINATION: CT abdomen pelvis wo con DATE: 05/09/2021 14:56 INDICATION: Chronic urinary tract infection TECHNIQUE: Computed tomography (CT) of the abdomen and pelvis was performed without intravenous contr ast. The dose-length product (DLP) was 1544.54 mGy-cm. Automated exposure control and iterative recon struction technique were employed. COMPARISON: 11/11/2020 FINDINGS: Minimal dependent atelectasis is present in the lung bases. Punctate calcifications in othe rwise normal appearing liver and spleen likely represent healed granulomatous disease. The pancreas, gallbladder, and right adrenal gland are normal. A stable 12 mm mass of the left adrenal gland is con sistent with an adenoma. There is a 6 mm nonobstructing stone of the left kidney lower pole. A 4 cm c yst is present in the left kidney upper pole. The right kidney is unremarkable. The bladder is decomp ressed a suprapubic catheter. There appears to be wall thickening of the urinary bladder however find ing is nonspecific. There is no hydronephrosis or hydroureter. A neurostimulator device is implanted in the posterior subcutaneous tissues of the right flank. Its lead enters the left pelvis at the S3 n eural foramen. There are bilateral L5 pars defects with grade 1 anterolisthesis of L5 on S1. IMPRESSION: 1. Chronic wall thickening of the urinary bladder which is decompressed by suprapubic catheter. Findi ngs nonspecific but could reflect chronic cystitis and/or chronic outlet obstruction. 2. Nonobstructing left nephrolithiasis. Reviewed, dictated and finalized at location B. NG MACHINE FEEDER IMPRESSION: 1. Chronic wall thickening of the urinary bladder which is decompressed by supr apubic catheter. Findings nonspecific but could reflect chronic cystitis and/or chronic outlet obstruction. 2. Nonobstructing left nephrolithiasis.
== END 2021-05-09 14:30 | disposition home or self-care (01) ==
LOC: ANHIMG 14:30
PROVIDERS: PCP Family Medicine; Visit Provider Nurse Practitioner Adult Health
DX: N39.0 Urinary tract infection, site not specified (principal); N20.0 Calculus of kidney; R93.41 Abnormal radiologic findings on diagnostic imaging of renal pelvis, ureter, or bladder
CPT/HCPCS: 74018; 74176

== ENCOUNTER 2021-07-08 13:47 | Outpatient (CLI) | payer MEDICARE, SELFPAY ==
--- NOTE | ~2021-07-08 | XR_ITS ---
EXAMINATION: XR abdomen/kub 1V EXAM DATE: 07/08/2021 14:17 INDICATION: Chronic Uti, Passing Stones Into Kurtz Bag. TECHNIQUE: Frontal projection(s) of the abdomen for interpretation. Comparison is made to prior exami nation from 05/09/2021. FINDINGS: There is moderate to large amount of colonic stool is obscuring both renal contours. No sma ll bowel obstruction. Sacral neurostimulator. A Finger/AICD lead. There is no organomegaly. There are no osteoblastic or osteolytic lesions identified. IMPRESSION: Moderate to large amount of colonic stool. Reviewed, dictated and finalized at location G. CONTROLLER
--- NOTE | ~2021-07-08 | CT_ITS ---
EXAMINATION: CT abdomen pelvis wo con DATE: 07/08/2021 14:22 INDICATION: Chronic urinary tract infection. TECHNIQUE: Computed tomography (CT) of the abdomen and pelvis was performed without intravenous contr ast. Automated exposure control and iterative reconstruction technique were employed. The dose-length product was 1592.90 mGy-cm. COMPARISON: CT abdomen and pelvis 05/09/2021, 11/11/2018 FINDINGS: The visualized portions of the lung bases demonstrate mild atelectasis. Calcified left lung nodules and calcified left hilar lymph nodes are consistent with old granulomatous disease. No pleur al effusion. Cardiomegaly is noted. There are coronary artery calcifications. No pericardial effusion . There are pacer wires in right atrium and right ventricle. Calcifications in the liver and spleen a re consistent with old granulomatous disease. The gallbladder, pancreas, and right adrenal gland are normal. There is a chronic 14 mm mass in left adrenal gland measuring soft tissue attenuation, likely an adenoma. Right kidney is normal. There is a 3.8 cm cyst in left kidney. There is a 5 mm stone in left kidney. There is a suprapubic catheter in expected position. There are no dilated loops of bowel . The appendix is normal. There are no pathologically enlarged lymph nodes. There is no free intraper itoneal fluid. There is prominent fat in left inguinal canal that may be a hernia. There are chronic bilateral L5 pars defects. There is 4 mm anterolisthesis of L5 on S1. There is severe lower lumbar sp ondylosis. There is an electrode in left S1 neural foramen with electronic device in the subcutaneous fat on the right. IMPRESSION: 1. 5 mm nonobstructing left kidney stone. Reviewed, dictated and finalized at location A. URE PRESS OPERATOR
== END 2021-07-08 13:48 | disposition home or self-care (01) ==
PROVIDERS: PCP Family Medicine; Visit Provider Nurse Practitioner Adult Health
DX: N39.0 Urinary tract infection, site not specified (principal); N20.0 Calculus of kidney
CPT/HCPCS: 74018; 74176

== ENCOUNTER 2021-08-31 01:37 | Emergency (ER) | payer MEDICARE, SELFPAY ==
--- NOTE | ~2021-08-31 | XR_ITS ---
EXAMINATION: XR chest 2V EXAM DATE: 08/31/2021 05:59 INDICATION: Cough, bilateral lower extremity swelling. TECHNIQUE: Frontal and lateral projections of the chest obtained and reviewed. Comparison is made to prior examination from 11/11/2020. FINDINGS: There is a dual lead pacemaker/AICD seen with leads projecting over the expected locations of the right atrial appendage and right ventricle. The cardiac silhouette is enlarged. There is pulm onary vascular congestion. Low lung volume. Appearance not significantly changed compared to prior st udy. No confluent consolidation, pneumothorax or pleural effusion suspected. There are bony degenerat rosario changes. IMPRESSION: Cardiomegaly, pulmonary vascular congestion unchanged. Reviewed, dictated and finalized at location B. A DIVE TRAINING INSTRUCTOR
--- NOTE | ~2021-08-31 | CT_ITS ---
EXAMINATION: CTA [facility] DATE: 08/31/2021 04:30 INDICATION: Peripheral arterial disease. Lower limb pain. TECHNIQUE: Computed tomographic angiography (CTA) of abdomen and pelvis and both lower extremities wa s performed with 150 mL Omnipaque-350 intravenous contrast. Automated exposure control and iterative reconstruction technique were employed. The dose-length product was 1692.48 mGy-cm. Maximum intensity projection 3D-reconstructions of the arteries were created by the technologist on a separate worksta tion. COMPARISON: CT abdomen and pelvis 07/08/21 FINDINGS: ABDOMINAL AORTA AND ITS BRANCHES: There is mild aortic atherosclerosis. There is no significant stenosis of celiac axis, superior mesen teric artery, the renal arteries, or inferior mesenteric artery. PELVIC VASCULATURE: There is no significant stenosis of the common iliac arteries, internal iliac arteries, or external i liac arteries. RIGHT LOWER EXTREMITY VASCULATURE: There is no significant stenosis of right common femoral artery, profunda femoris, superficial femora l artery, popliteal artery, tibioperoneal trunk, peroneal artery, or the anterior or posterior tibial arteries. Sensitivity and specificity in the calf is decreased by the suboptimal phase of contrast o pacification. There are enlarged superficial veins in the lower leg. There is subcutaneous edema in t he lower leg. LEFT LOWER EXTREMITY VASCULATURE: There is no significant stenosis of left common femoral artery, profunda femoris, superficial femoral artery, popliteal artery, tibioperoneal trunk, peroneal artery, or the anterior or posterior tibial arteries. Sensitivity and specificity in the calf is decreased by the suboptimal phase of contrast op acification. There are enlarged superficial veins in the lower leg. There is subcutaneous edema in th e lower leg. ADDITIONAL FINDINGS: There is no pleural effusion. Calcifications in the liver and spleen are consistent with old granulom atous disease. The gallbladder, pancreas, and right adrenal gland are normal. There is a chronic 14 m m mass in left adrenal gland measuring soft tissue attenuation, likely an adenoma. Right kidney is no rmal. There is a 3.5 cm cyst in left kidney. There is a 5 mm stone in left kidney. There is a suprapu bic catheter in expected position. There is prominent fat in the left inguinal canal that may be a he rnia. There are no dilated loops of bowel. The appendix is normal. There are no pathologically enlarg ed lymph nodes. There is no free intraperitoneal fluid. There is an electrode in left S3 neural wesley en. There is severe lower lumbar spondylosis. There are chronic bilateral L5 pars defects. IMPRESSION: 1. No significant arterial occlusive disease. 2. Varicose veins in the lower legs. Reviewed, dictated and finalized at location A. INFO CONSULTANT
[2021-08-31 01:39] VITALS: BP 134/75; PULSE 71; RESP 14; TEMP 36.2; O2SAT 97
[2021-08-31 02:12] VITALS: BP 119/66; PULSE 119; RESP 18; TEMP 36.8; O2SAT 69
[2021-08-31 02:47] LABS: Basophils Percent Auto 0.5 % (0.2-1.2); Eosinophils Absolute Auto 0.2 K/mm3 (0-0.3); Eosinophils Percent Auto 2.4 % (0-4.4); Hematocrit 45.7 % (42.0-52.0); Hemoglobin 14.9 g/dL (14.0-18.0); Immature Granulocyte Absolute 0.03 K/mm3 (0.00-0.031); Immature Granulocyte Percent A 0.4 % (0-0.5); Lymphocytes Absolute Auto 1.16 K/mm3 (0.9-3.2); Lymphocytes Percent Auto 14.9 % (18.3-44.2); Mean Corpuscular HGB Conc 32.6 g/dl (32-36); Mean Corpuscular Hemoglobin 28.8 pg (26-34); Mean Corpuscular Volume 88.2 fl (80-100); Mean Platelet Volume 11.2 fl (7.4-10.4); Monocytes Absolute Auto 0.8 K/mm3 (0.1-0.6); Monocytes Percent Auto 10.4 % (2.6-8.5); Neutrophils Absolute Auto 5.6 K/mm3 (1.3-6.7); Neutrophils Percent Auto 71.4 % (45.5-73.1); Platelet Count Result 219 k/mm3 (150-375); Red Blood Count 5.18 M/mm3 (4.6-6.20); Red Cell Distribution Width 14.6 % (11.5-14.5); White Blood Count 7.8 K/mm3 (4.5-10.0)
[2021-08-31 03:35] LABS: Erythrocyte Sedimentation Rate 21 mm/hr (0-20)
--- NOTE | 2021-08-31 03:45 | ED.EXTPRO ---
HPI - Extremity Problem General Chief complaint: Extremity Problem,Nontraumatic Stated complaint: LEG PAIN Time Seen by Provider: 08/31/21 02:28 Source: patient History of Present Illness HPI Narrative: Patient presents with bilateral lower extremity pain left worse than right. Reports pain for the past few days getting progressively worse. His pain primarily starts in his ankle and radiates up into his hip is worse with moving his leg and is achy. Ports history of cellulitis and is concerned for the same. Denies any fevers, chills, nausea, vomiting, diarrhea. Denies any recent trauma Related Data Home Medications Medication Instructions Recorded Confirmed furosemide 60 mg PO DIRECTED 01/19/20 07/05/21 Adult One Daily Multivitamin 1 tablet PO QAM 02/25/20 07/05/21 albuterol sulfate [ProAir HFA] 2 inh INHALATION PRN PRN 02/25/20 07/05/21 aspirin [Aspirin Low Dose] 81 mg PO QAM 02/25/20 07/05/21 levalbuterol HCl 1 mg INHALATION TID 02/25/20 07/05/21 spironolactone 25 mg PO HS 03/11/20 07/05/21 budesonide-formoterol [Symbicort] 2 puff INHALATION BID 01/31/21 07/05/21 oxybutynin chloride 15 mg 15 mg PO TID tablet 05/17/21 07/05/21 tablet,extended release 24 hr metformin 500 mg tablet 500 mg PO BID 07/05/21 07/05/21 Allergies Allergy/AdvReac Type Severity Reaction Status Date / Time Sulfa (Sulfonamide Allergy Rash Verified 08/31/21 02:33 Antibiotics) menthol AdvReac Severe BROWER SKIN Verified 07/05/21 07:53 Review of Systems Review of Systems: CONSTITUTIONAL: Denies fever, chills, or sweats. EYES: Denies visual changes, redness, or discharge. ENT: Denies rhinorrhea, congestion, sore throat, or otalgia. CARDIOVASCULAR: Denies chest pain, palpitations, or edema. RESPIRATORY: Denies cough or dyspnea. GASTROINTESTINAL: Denies abdominal pain, nausea, vomiting, or diarrhea. GENITOURINARY: Denies dysuria or hematuria. SKIN: Denies rash or itching. MUSCULOSKELETAL: Denies back pain, joint pain, or myalgia. NEUROLOGIC: Denies headache, numbness, dizziness, or weakness. PSYCHIATRIC: Denies anxiety or depression. All systems reviewed & are unremarkable except as noted in HPI and below PMFSH Past Medical History Medical History Adrenal adenoma stable on imaging since 2017 Benign prostatic hyperplasia (BPH) with urinary urge incontinence the patient is in test debating a bladder stimulator placement March [address] Sargent Bilateral cataracts maturing BMI 40.0-44.9, adult BMI greater than 40 Brugada syndrome C. 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 Complex sleep apnea syndrome Dermatitis Diabetes mellitus type 2, diet-controlled hemoglobin A1c of 6.03 August 2019 Diaphragm paralysis GERD (gastroesophageal reflux disease) Headache Hearing loss in left ear Infection of penis Kidney stones Knee osteoarthritis Low testosterone Lumbar degenerative disc disease Mixed hyperlipidemia Morbid (severe) obesity due to excess calories Neurofibromatosis Pulmonary embolism Rash Spinal stenosis, lumbar region with neurogenic claudication Thoracic aortic aneurysm (TAA) measuring 4.5 cm on CTA from 2019 Thyroid nodule status post biopsy with benign pathology Surgical History Surgical History AICD (automatic cardioverter/defibrillator) present Biceps tendon rupture status post repair History of appendectomy History of arthroscopy of left knee due to meniscal tear History of colonoscopy with polypectomy History of prostatectomy with chronic urinary incontinence Status post left rotator cuff repair Status po
[2021-08-31 04:00] LABS: Alanine Aminotransferase 19 U/L (4-50); Albumin Level 4.4 g/dL (3.5-5.1); Alkaline Phosphatase 89 U/L (38-126); Anion Gap 11 mmol/L (8-16); Aspartate Amino Transferase 26 U/L (17-59); Bilirubin,Total 0.5 mg/dL (0.2-1.3); Blood Urea Nitrogen 22 mg/dL (9-20); Carbon Dioxide 29 mmol/L (22-30); Chloride 101 mmol/L (98-107); Estimated CRCL calculation 106 ml/min; Estimated Glomerular Filt Rate > 60; Glucose 136 mg/dL (65-110); Potassium 3.5 mmol/L (3.4-5.0); Sodium 141 mmol/L (137-145)
[2021-08-31 04:06] LABS: NT Pro B Type Natriuretic Pept 92 pg/mL (5-100)
[2021-08-31 04:29] LABS: Lactic Acid Reflex 1.1 mmol/L (0.7-2.1)
[2021-08-31 04:44] LABS: CRP 1.4 mg/dL (<1.0)
[2021-08-31 06:27] VITALS: BP 128/65; PULSE 68; RESP 18; O2SAT 96
== END 2021-08-31 06:46 | disposition home or self-care (01) ==
PROVIDERS: Emergency Provider Emergency Medicine; PCP Family Medicine
DX: L03.119 Cellulitis of unspecified part of limb (principal); N40.1 Benign prostatic hyperplasia with lower urinary tract symptoms; N39.41 Urge incontinence; I50.9 Heart failure, unspecified; I49.8 Other specified cardiac arrhythmias; E11.9 Type 2 diabetes mellitus without complications; E78.2 Mixed hyperlipidemia; G47.39 Other sleep apnea; K21.9 Gastro-esophageal reflux disease without esophagitis; M17.10 Unilateral primary osteoarthritis, unspecified knee; E66.01 Morbid (severe) obesity due to excess calories; Z68.41 Body mass index [BMI] 40.0-44.9, adult; Z86.711 Personal history of pulmonary embolism; Z95.810 Presence of automatic (implantable) cardiac defibrillator; Z90.79 Acquired absence of other genital organ(s); Z87.442 Personal history of urinary calculi; Z86.010 Personal history of colon polyps; Z79.82 Long term (current) use of aspirin; Z79.84 Long term (current) use of oral hypoglycemic drugs; Z87.891 Personal history of nicotine dependence
CPT/HCPCS: 36415; 71046; 73706; 80053; 83605; 83880; 85025; 85652; 86140; 87040; 99284; Q9967

== ENCOUNTER 2021-09-27 01:23 | Day surgery (SDC) | payer MEDICARE, SELFPAY ==
[2021-09-14 14:40] VITALS: BMI 42.0
[2021-09-27 12:17] VITALS: BP 139/71; PULSE 62; RESP 20; TEMP 36.1; O2SAT 100
[2021-09-27 12:30] LABS: Glucose Point of Care 118 mg/dl (65-105)
--- NOTE | 2021-09-27 12:46 | WPDANESEPPF ---
Anes - Initial Pre Proc Eval Procedure: Operation Date: 09/27/21 13:30 Proposed Procedures p Esophagogastroduodenoscopy & Colonoscopy - Chaz Gallegos MD Date/Time: 09/27/21 12:46 Surgeon: Chaz Gallegos MD Pre Op Diagnosis: abdominal pain, constipation, change in bowel habi Patient Data Age: 66 Gender: M Height: 1.75 m Weight: 126.6 kg Last Vital Signs Temp 97.0 F L 09/27/21 12:17 Pulse 62 09/27/21 12:17 Resp 20 09/27/21 12:17 BP 139/71 09/27/21 12:17 Pulse Ox 100 09/27/21 12:17 Allergies Allergy/AdvReac Type Severity Reaction Status Date / Time Sulfa (Sulfonamide Allergy Rash Verified 09/27/21 12:17 Antibiotics) menthol AdvReac Severe BROWER SKIN Verified 09/27/21 12:17 Home Medications Medication Instructions Recorded Confirmed Type Adult One Daily Multivitamin 1 tablet PO QAM 02/25/20 09/14/21 History albuterol sulfate [ProAir HFA] 2 inh INHALATION PRN PRN 02/25/20 09/14/21 History aspirin [Aspirin Low Dose] 81 mg PO QAM 02/25/20 09/14/21 History levalbuterol HCl 1 mg INHALATION TID 02/25/20 09/14/21 History spironolactone 25 mg PO HS 03/11/20 09/14/21 History meclizine 12.5 mg PO QID PRN #20 tablet 10/01/20 09/14/21 Rx budesonide-formoterol [Symbicort] 2 puff INHALATION BID 01/31/21 09/14/21 History syringe with needle, safety 3 mL #14 ea 02/15/21 09/14/21 Rx 22 gauge x 1 1/2 nystatin 100,000 unit/gram topical 1 applic TOPICAL BID #30 g 02/18/21 09/14/21 Rx powder oxybutynin chloride 15 mg 15 mg PO TID tablet 05/17/21 09/14/21 History tablet,extended release 24 hr pramipexole 1 mg tablet See Rx Instructions .ROUTE 05/23/21 09/14/21 Rx .COMPLEX #90 tablet rosuvastatin 20 mg tablet See Rx Instructions .ROUTE 05/23/21 09/14/21 Rx .COMPLEX #90 tablet triamcinolone acetonide 0.1 % 1 applic TOPICAL BID #30 g 05/23/21 09/14/21 Rx topical cream pantoprazole 40 mg tablet,delayed See Rx Instructions .ROUTE 07/04/21 09/14/21 Rx release .COMPLEX #90 tablet metformin 500 mg tablet 500 mg PO BID 07/05/21 09/14/21 History torsemide 20 mg tablet 40 mg PO BID #1 tablet 09/06/21 09/14/21 Rx linaclotide 145 mcg capsule 145 mcg PO DAILY #30 cap 09/12/21 09/14/21 Rx allopurinol 100 mg tablet 100 mg PO DAILY 09/14/21 09/14/21 History glipizide 5 mg tablet 7.5 mg PO DAILY tablet 09/14/21 09/14/21 History Laboratory Tests 09/27/21 12:27 POC Capillary Glucose 118 mg/dl H mg/dl (65-105) Patient hx anesthesia problems: none Family hx anesthesia problems: none Results Review: All pre-operative results and documents have been reviewed as part of the pre-operative evaluation. [facility] Past Medical History Medical History Adrenal adenoma stable on imaging since 2017 Benign prostatic hyperplasia (BPH) with urinary urge incontinence the patient is in test debating a bladder stimulator placement March [address] Sargent Bilateral cataracts maturing BMI 40.0-44.9, adult BMI greater than 40 Brugada syndrome C. 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 Pineda sleep apnea syndrome Dermatitis Diabetes mellitus type 2, diet-controlled hemoglobin A1c of 6.03 August 2019 Diaphragm paralysis GERD (gastroesophageal reflux disease) Headache Hearing loss in left ear Infection of penis Kidney stones Knee osteoarthritis Low testosterone Lumbar degenerative disc disease Mixed hyperlipidemia Morbid (severe) obesity due to excess calories Neurofibromatosis Pulmonary embolism Rash Spinal stenosis, lumbar region with neurogenic claudication Thoracic aortic aneurysm (TAA) measuring 4.5 cm on CTA from 2018 Thyroid nod
[2021-09-27] MEDS: LACTATED RINGERS 1,000 ML 150 ML IV CONT (12:50)
--- NOTE | 2021-09-27 13:20 | WPDHPUPDATE1 ---
History and Physical Update Update Date/Time: 09/27/21 13:20 History and Physical has been reviewed, including an updated exam of the patient. There are NO changes in the patient's condition. Risks, benefits, and alternatives have been discussed and questions answered. Patient agrees to proceed with procedure.
--- NOTE | 2021-09-27 13:38 | SUR.OPER ---
EGD ended at 1335. Colonoscopy started at 1341.
--- NOTE | 2021-09-27 13:53 | SUR.OPER ---
Patient noted to have circular purple bruise on right thigh before procedure started. Bovie pad was placed below this site and no new bruising was noted.
[2021-09-27 14:06] VITALS: BP 121/87; PULSE 63; RESP 20; O2SAT 94
[2021-09-27 14:16] VITALS: BP 121/80; PULSE 67; RESP 19; O2SAT 94
[2021-09-27 14:26] VITALS: BP 119/66; PULSE 63; RESP 19; O2SAT 94
== END 2021-09-27 14:55 | disposition home or self-care (01) ==
PROVIDERS: PCP Family Medicine; Visit Provider Internal Medicine Gastroenterology
PROC: 0DJ08ZZ Inspection of Upper Intestinal Tract, Via Natural or Artificial Opening Endoscopic (ICD-10-PCS; CPT 43235; principal; 2021-09-27 13:30)
DX: K59.00 Constipation, unspecified (principal); K63.5 Polyp of colon; K21.9 Gastro-esophageal reflux disease without esophagitis; I71.2 Thoracic aortic aneurysm, without rupture; I50.9 Heart failure, unspecified; E78.2 Mixed hyperlipidemia; D35.00 Benign neoplasm of unspecified adrenal gland; E11.9 Type 2 diabetes mellitus without complications; E66.01 Morbid (severe) obesity due to excess calories; E04.1 Nontoxic single thyroid nodule; J98.6 Disorders of diaphragm; N31.9 Neuromuscular dysfunction of bladder, unspecified; N40.1 Benign prostatic hyperplasia with lower urinary tract symptoms; N39.41 Urge incontinence; M47.22 Other spondylosis with radiculopathy, cervical region; M48.062 Spinal stenosis, lumbar region with neurogenic claudication; M17.10 Unilateral primary osteoarthritis, unspecified knee; M51.36 Other intervertebral disc degeneration, lumbar region; Q85.00 Neurofibromatosis, unspecified; Z95.810 Presence of automatic (implantable) cardiac defibrillator
CPT/HCPCS: 45385; 45381; 43239; 82948; 87081; 88305; J2704; J7120

== ENCOUNTER 2022-01-16 00:09 | Day surgery (SDC) | payer MEDICARE, MEDICAID, SELFPAY ==
[2022-01-03 14:28] VITALS: BMI 41.0
[2022-01-16 08:37] VITALS: BP 117/69; PULSE 74; RESP 20; TEMP 36.2; O2SAT 100; BMI 40.9
[2022-01-16] MEDS: LACTATED RINGERS 1,000 ML 150 ML IV CONT (09:12)
[2022-01-16 09:14] LABS: Glucose Point of Care 132 mg/dl (65-105)
--- NOTE | 2022-01-16 09:14 | PM.IMHP ---
H&P: HPI History of Present Illness Date/Time: 01/16/22 09:14 Chief Complaint: History of colon polyp. Constipation. Narrative: This is a 66-year-old white male patient who presents for colonoscopy. 4-5 months ago patient was found to have a suspicious appearing polyp in the colon. The final histology was benign. Patient presents today for follow-up examination of this polyp. He continues to complain of rather significant severe constipation. Currently he takes Metamucil daily supplemented with Linzess and on occasionally also uses MiraLax to maintain bowel movements. He continues to strain at stool. Denies any bleeding or weight loss. Family history is significant for colon cancer. Review of Systems Review of Systems: Review of systems noncontributory. [facility] Past Medical History Medical History Adrenal adenoma stable on imaging since 2017 Benign prostatic hyperplasia (BPH) with urinary urge incontinence the patient is in test debating a bladder stimulator placement March [address] Sargent Bilateral cataracts maturing BMI 40.0-44.9, adult BMI greater than 40 Brugada syndrome C. 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 Complex sleep apnea syndrome Dermatitis Diabetes mellitus type 2, diet-controlled hemoglobin A1c of 6.03 August 2019 Diaphragm paralysis GERD (gastroesophageal reflux disease) Headache Hearing loss in left ear Infection of penis Kidney stones Knee osteoarthritis Low testosterone Lumbar degenerative disc disease Mixed hyperlipidemia Morbid (severe) obesity due to excess calories Neurofibromatosis Pulmonary embolism Rash Spinal stenosis, lumbar region with neurogenic claudication Thoracic aortic aneurysm (TAA) measuring 4.5 cm on CTA from 2019 Thyroid nodule status post biopsy with benign pathology Surgical History Surgical History AICD (automatic cardioverter/defibrillator) present Biceps tendon rupture status post repair History of appendectomy History of arthroscopy of left knee due to meniscal tear History of colonoscopy with polypectomy History of prostatectomy with chronic urinary incontinence Status post left rotator cuff repair Status post trigger finger release bilateral Family History Family History Father Cerebrovascular accident Neurofibromatosis Coronary artery disease Diabetes mellitus CHF (congestive heart failure) Acute myocardial infarction Mother Breast cancer Grandparent Alcoholism Sibling Thyroid cancer sister Sibling Depression Breast cancer H/O mastectomy Sibling Depression Adrenal cancer sister Sibling Depression Social History Social History (Updated 10/25/21 @ 15:28 by Aranza Gonzalez SCAFFOLD BUILDER) Social History: the patient briefly smoked while in college. He drinks 1-2 beers a week. He lives in [place] with his of 40 years. They have 3 children who are healthy and 3 grand children. 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 Code status: Full code durable power of civil litigation attorney for healthcare: Claudine () Years smoked: 3 Smoking status: Never smoker Tobacco type: cigarettes Second hand tobacco smoke exposure: No Alcohol intake: current Drinks per week: 1 Alcohol use details: on occasion Substance use: never Substance use type: does not use Living arrangements: with family Additional living arrangements comments: AND SON Additional occupation/education comments:
--- NOTE | 2022-01-16 09:30 | WPDANESEPPF ---
Anes - Initial Pre Proc Eval Procedure: Operation Date: 01/16/22 09:30 Proposed Procedures p Colonoscopy - Chaz Gallegos MD Date/Time: 01/16/22 09:30 Surgeon: Chaz Gallegos MD Pre Op Diagnosis: colon polyp Patient Data Age: 66 Gender: M Height: 1.75 m Weight: 125.8 kg Last Vital Signs Temp 97.2 F L 01/16/22 08:37 Pulse 74 01/16/22 08:37 Resp 20 01/16/22 08:37 BP 117/69 01/16/22 08:37 Pulse Ox 100 01/16/22 08:37 O2 Del Method Room Air 01/16/22 08:37 Allergies Allergy/AdvReac Type Severity Reaction Status Date / Time Sulfa (Sulfonamide Allergy Rash Verified 01/16/22 08:52 Antibiotics) menthol AdvReac Severe BROWER SKIN Verified 01/16/22 08:52 Home Medications Medication Instructions Recorded Confirmed Type Adult One Daily Multivitamin 1 tablet PO QAM 02/25/20 01/16/22 History albuterol sulfate 90 mcg/actuation 2 inh inhalation PRN PRN shortness 02/25/20 01/16/22 History aerosol inhaler (ProAir HFA) of breath aspirin 81 mg tablet,delayed 81 mg PO QAM 02/25/20 01/16/22 History release (Shayna Low Dose Aspirin) spironolactone 25 mg tablet 25 mg PO HS 03/11/20 01/16/22 History meclizine 12.5 mg tablet 12.5 mg PO QID PRN Dizziness #20 10/01/20 01/16/22 Rx tabs budesonide-formoterol HFA 160 2 puff inhalation BID 01/31/21 01/16/22 History mcg-4.5 mcg/actuation aerosol inhaler (Symbicort) syringe with needle, safety 3 mL #14 ea 02/15/21 01/16/22 Rx 22 gauge x 1 1/2 (BD Eclipse Luer-Kalin) metformin 500 mg tablet 500 mg PO BID 07/05/21 01/16/22 History torsemide 20 mg tablet 40 mg PO BID #1 tablet 09/06/21 01/16/22 Rx glipizide 5 mg tablet 5 mg PO BID 09/14/21 01/16/22 History pramipexole 1 mg tablet See Rx Instructions .Route 10/03/21 01/16/22 Rx .COMPLEX #90 tabs linaclotide 290 mcg capsule 290 mcg PO DAILY #30 caps 10/11/21 01/16/22 Rx (Linzess) pantoprazole 40 mg tablet,delayed See Rx Instructions .Route 10/11/21 01/16/22 Rx release .COMPLEX #90 tabs peg 3350-electrolytes 236 240 ml PO Q10M #4,000 mL 01/03/22 01/16/22 Rx gram-22.74 gram-6.74 gram-5.86 gram solution (Golytely) potassium chloride 20 mEq 1 tablet PO DAILY 01/03/22 01/16/22 History tablet,extended release(part/cryst) (Klor-Con M) tamsulosin 0.4 mg capsule 1 cap PO DAILY 01/03/22 01/16/22 History Laboratory Tests 01/16/22 09:01 POC Capillary Glucose 132 mg/dl H mg/dl (65-105) Patient hx anesthesia problems: none Family hx anesthesia problems: none Results Review: All pre-operative results and documents have been reviewed as part of the pre-operative evaluation. [facility] Past Medical History Medical History Adrenal adenoma stable on imaging since 2017 Benign prostatic hyperplasia (BPH) with urinary urge incontinence the patient is in test debating a bladder stimulator placement March [address] Sargent Bilateral cataracts maturing BMI 40.0-44.9, adult BMI greater than 40 Brugada syndrome C. 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
[2022-01-16 10:10] VITALS: BP 107/50; PULSE 60; RESP 27; O2SAT 100
== END 2022-01-16 10:40 | disposition home or self-care (01) ==
PROVIDERS: PCP Family Medicine; Visit Provider Internal Medicine Gastroenterology
PROC: 0DJD8ZZ Inspection of Lower Intestinal Tract, Via Natural or Artificial Opening Endoscopic (ICD-10-PCS; CPT 45378; principal; 2022-01-16 09:30)
DX: Z12.11 Encounter for screening for malignant neoplasm of colon (principal); Z80.0 Family history of malignant neoplasm of digestive organs; Z86.010 Personal history of colon polyps; K59.00 Constipation, unspecified; K64.8 Other hemorrhoids; Z79.82 Long term (current) use of aspirin; Z79.84 Long term (current) use of oral hypoglycemic drugs; Z79.51 Long term (current) use of inhaled steroids; D35.00 Benign neoplasm of unspecified adrenal gland; I71.2 Thoracic aortic aneurysm, without rupture; M19.90 Unspecified osteoarthritis, unspecified site; G47.39 Other sleep apnea; N40.1 Benign prostatic hyperplasia with lower urinary tract symptoms; N39.498 Other specified urinary incontinence; Z86.711 Personal history of pulmonary embolism; I49.8 Other specified cardiac arrhythmias; M46.82 Other specified inflammatory spondylopathies, cervical region; E78.2 Mixed hyperlipidemia; E11.9 Type 2 diabetes mellitus without complications; I50.30 Unspecified diastolic (congestive) heart failure; E04.1 Nontoxic single thyroid nodule; I34.0 Nonrheumatic mitral (valve) insufficiency; I35.1 Nonrheumatic aortic (valve) insufficiency; J98.6 Disorders of diaphragm; F17.210 Nicotine dependence, cigarettes, uncomplicated; E66.01 Morbid (severe) obesity due to excess calories; Z68.41 Body mass index [BMI] 40.0-44.9, adult
CPT/HCPCS: G0105; 82948; J2704; J7120

== ENCOUNTER → 2022-02-25 08:08 | Outpatient (CLI) | payer MEDICARE, MEDICAID, SELFPAY ==
--- NOTE | ~2022-02-25 | US_ITS ---
EXAMINATION: US renal BI DATE: 02/25/2022 09:04 INDICATION: Polyuria TECHNIQUE: Multiple ultrasound grayscale images of the kidneys were obtained. COMPARISON: CT abdomen and pelvis 07/08/2021 FINDINGS: The right kidney measures 10.3 x 5.9 x 6.0 cm. The left kidney measures 12.0 x 6.8 x 5.7 cm. The kidn eys demonstrate normal parenchymal echogenicity. There is no hydronephrosis. The bladder is decompres sed by a Kurtz catheter. IMPRESSION: Normal renal sonogram findings Reviewed, dictated and finalized at [facility].
== END ==
PROVIDERS: PCP Family Medicine; Visit Provider Internal Medicine Nephrology
DX: R35.89 Other polyuria (principal)
CPT/HCPCS: 76775

== ENCOUNTER 2022-05-17 11:44 | Outpatient (CLI) | payer MEDICARE, MEDICAID, SELFPAY ==
--- NOTE | ~2022-05-17 | CT_ITS ---
EXAMINATION: CT abdomen pelvis wo/w con DATE: 05/17/2022 13:05 INDICATION: Abdominal pain, low back pain. History of kidney stones. TECHNIQUE: Computed tomography (CT) of the abdomen and pelvis was performed without and subsequently with 130 CC Omnipaque 350 intravenous contrast. Automated exposure control and iterative reconstructi on technique were employed. Exam dose: 3153.17 mGy-cm total exam DLP. COMPARISON: 07/08/2021 CT abdomen pelvis FINDINGS: Minimal atelectasis at the lung bases. Cardiomegaly. Right atrial and right ventricular pac emaker leads. No pericardial or pleural effusion. Multiple calcified hepatic and splenic granulomas. No hepatic space-occupying mass lesion is evident. The gallbladder is present and appears unremarkabl e. No pancreatic mass lesion or calcification. 10.7 x 13.3 mm left adrenal mass, likely a small adenoma. Approximately 2.5 mm nonobstructing lower pole right renal calculus Approximately 5.5 mm nonobstructing lower pole left renal calculus. 8 mm and 33 mm left renal cysts. No ureteral calculus or hydroureteronephrosis. There is a suprapubic catheter within the urinary bladder. Nonspecific diffuse moderate bladder wall thickening. Prostate calcifications. There is atherosclerotic calcification but normal caliber of the abdominal aorta. There is atherosclerotic calcification of the abdominal aorta and iliac and femoral arteries but no a bdominal aortic aneurysm. No intraperitoneal or retroperitoneal or pelvic mass lesion or adenopathy o r ascites. Normal appendix. No bowel obstruction or intraperitoneal free air. Small fat-containing umbilical hernia. Small fat-containing left inguinal hernia. Diffuse idiopathic skeletal hyperostosis of the thoracic spine. Moderately severe degenerative disc disease at L5-S1. Bilateral L5 pars interarticularis defects with grade 1 anterolisthesis at L5-S1. IMPRESSION: Small nonobstructing calculus of each kidney Left renal cysts Small left adrenal probable adenoma Normal appendix Suprapubic Kurtz catheter; diffuse bladder wall thickening Reviewed, dictated and finalized at [facility]. Reviewed, dictated and finalized at location [facility]. ER MAKER MACHINE
[2022-05-17 12:12] LABS: Hemoglobin 14.3 g/dL (14.0-18.0); Mean Corpuscular HGB Conc 32.5 g/dl (32-36); Mean Corpuscular Hemoglobin 27.9 pg (26-34); Mean Corpuscular Volume 85.8 fl (80-100); Mean Platelet Volume 10.6 fl (7.4-10.4); Platelet Count Result 275 k/mm3 (150-375); Red Blood Count 5.13 M/mm3 (4.6-6.20); Red Cell Distribution Width 14.2 % (11.5-14.5)
[2022-05-17 12:13] LABS: Appearance Urine Clear (Clear); Bilirubin Urine Negative (Negative); Blood Urine Trace-intact (Negative); Color Urine Yellow (Yellow); Glucose Urine UA 3+ mg/dL (Negative); Ketones Urine Negative (Negative); Leukocyte Esterase Ur 1+ LEU/UL (Negative); Nitrate Urine Positive (Negative); Protein Urine Negative (Negative); Specific Grav Ur 1.015 (1.001-1.035); Urobilinogen Urine 0.2 mg/dL (<2.0)
[2022-05-17 12:19] LABS: Bacteria Urine Trace /hpf; Mucus Urine Rare /lpf; RBC Urine 0-2 /hpf (0-2); Squamous Epithelial Cell Urine Rare /hpf (Few)
[2022-05-17 12:23] LABS: Add Urine Microscopic? YES
[2022-05-17 12:24] LABS: Alanine Aminotransferase 51 U/L (6-50); Albumin Level 4.5 g/dL (3.5-5.1); Alkaline Phosphatase 258 U/L (38-126); Amylase 50 U/L (30-110); Anion Gap 12 mmol/L (8-16); Aspartate Amino Transferase 30 U/L (17-59); Bilirubin,Total 0.5 mg/dL (0.2-1.3); Blood Urea Nitrogen 28 mg/dL (9-20); Calcium 9.9 mg/dL (8.4-10.2); Carbon Dioxide 32 mmol/L (22-30); Chloride 98 mmol/L (98-107); Estimated Glomerular Filt Rate > 60; Glucose 212 mg/dL (65-110); Lipase 276 U/L (23-300); Potassium 4.2 mmol/L (3.4-5.0); Sodium 142 mmol/L (137-145)
== END 2022-05-17 11:45 | disposition home or self-care (01) ==
PROVIDERS: PCP Family Medicine; Visit Provider Nurse Practitioner Family
DX: N20.0 Calculus of kidney (principal); N28.1 Cyst of kidney, acquired; D64.9 Anemia, unspecified; Z87.442 Personal history of urinary calculi
CPT/HCPCS: 36415; 74178; 80053; 81001; 82150; 83690; 85027; Q9967

== ENCOUNTER 2022-07-19 05:51 | Inpatient (IN) | payer MEDICARE, MEDICAID, SELFPAY ==
[2022-07-19] VITALS (11 sets, daily range): BP systolic 117–152; BP diastolic 47–79; PULSE 59–78; RESP 16–22; TEMP 36.2–37.2; O2SAT 95–99
--- NOTE | ~2022-07-19 | US_ITS ---
Testicular ultrasound with doppler. Indication: Left testicular pain. Technique: Real-time sonography the scrotum was performed. Color flow Doppler and Doppler spectral an alysis were performed. Findings: The testes are homogeneous in echotexture bilaterally. There is no evidence of an intrates ticular mass. The right testis measures 3.2 x 1.6 x 2.4 cm and the left 2.6 x 2.4 x 2.1 cm. There is color-flow seen to both testes. Arterial and venous spectral waveforms are seen in both testes. There is no sonographic evidence of torsion. There is marked hypervascularity of the left epididymis as co mpared to the right. There is a small A complex and multiseptated left hydrocele.. Impression: Left epididymitis. Small complex, multiseptated left hydrocele. Superinfected hydrocele is a consideration. No testicular torsion or testicular mass. Reviewed, dictated and finalized at [facility]. F OPTOMETRY SERVICE Impression: Left epididymitis. Small complex, multiseptated left hydrocele. Superinfected hydrocele is a consi deration. No testicular torsion or testicular mass.
--- NOTE | ~2022-07-19 | XR_ITS ---
EXAMINATION: XR enema water soluble DATE: 08/02/2022 14:57 INDICATION: Fecal impaction. Distended abdomen. TECHNIQUE: A clam bed laborer radiograph was obtained. A catheter was inserted into the patient's rectum. Water- soluble contrast was infused by gravity. A total of 30 fluoroscopic images and 19 overhead radiograph s were obtained. Fluoroscopy exposure time was 0.6 minutes. COMPARISON: CT dated 07/22/2022 and more subtle enema dated 07/23/2022 FINDINGS: L D Rn image demonstrates a spinal nerve root stimulator extending from posterior to anterior through the left S3 neural foramen from a power supply in the subcutaneous soft tissues at the right buttock. Small amount of gas scattered throughout the colon and a few loops of small bowel. Retrograde infuse d contrast extends through the entire length of the colon. There is a moderate to large amount of mob ile stool scattered throughout the colon. No obstruction or evident fixed stricture. IMPRESSION: 1. Moderate to large amount of mobile stool throughout the colon consistent with provided history of constipation without fixed obstruction or stricture. Reviewed, dictated and finalized at location A. CLING TECH IMPRESSION: 1. Moderate to large amount of mobile stool throughout the colon consistent wit h provided history of constipation without fixed obstruction or stricture.
--- NOTE | ~2022-07-19 | US_ITS ---
EXAMINATION: US abdomen limited DATE: 07/20/2022 14:01 INDICATION: Abnormal liver function tests. TECHNIQUE: Multiple grayscale and Doppler ultrasound images of the abdomen were obtained. COMPARISON: CT abdomen and pelvis 05/17/2022 FINDINGS: The visualized portions of the head of the pancreas are normal. Calcifications in the liver consistent with old granulomatous disease. The gallbladder is contracted. No gallstones or sonograph ic Hernandez sign. The common duct is normal and measures 7 mm. IMPRESSION: 1. No etiology for abnormal liver function tests. Reviewed, dictated and finalized at location A. IER OR CHECKER STOCK CLERK
--- NOTE | ~2022-07-19 | XR_ITS ---
EXAMINATION: XR abdomen obstructive series DATE: 08/01/2022 10:44 INDICATION: Constipation. Distention. TECHNIQUE: Upright and supine views of the abdomen on 4 radiographs were obtained. COMPARISON: CT abdomen and pelvis 07/22/2022 FINDINGS: There is distention of the transverse colon. The small bowel is normal in caliber. There is an electrode in left S3 neural foramen. Partially visualized are pacer wires. No free intraperitonea l gas. IMPRESSION: 1. Distended transverse colon, which may be secondary to adynamic ileus or stool impaction. Reviewed, dictated and finalized at location A. DRATOR TENDER IMPRESSION: 1. Distended transverse colon, which may be secondary to adynamic ileus or stoo l impaction.
--- NOTE | ~2022-07-19 | XR_ITS ---
EXAMINATION: XR abdomen obstructive series DATE: 07/25/2022 11:08 INDICATION: Constipation and fecal impaction. TECHNIQUE: Frontal supine and upright views of the abdomen were obtained. COMPARISON: Obstructive series dated 07/24/2022 and 07/22/2022 CT abdomen and pelvis dated FINDINGS: Gas scattered throughout the colon most prominent at the transverse colon. Moderate amount of stool a t the hepatic flexure. No dilated loops of gas-filled bowel to suggest obstruction. No free intraperi toneal gas. Visualized lung bases are clear. Cardiomegaly with interval lead pacemaker/AICD seen wi th leads projecting over the expected locations of the right atrium and right ventricle. Prominent ca lcified lower mediastinal lymph node consistent with old granulomatous disease. Again seen is a sacra l nerve root stimulator with partial supply project over the right buttock and lead extending through the left S3 neural foramen but appreciated on prior CT. IMPRESSION: 1. Persistent moderate amount of stool at the hepatic flexure of the colon. No free intraperitoneal g as or dilated gas-filled loops of bowel to suggest obstruction. Reviewed, dictated and finalized at location L. GER CARDIOVASCULAR IMPRESSION: 1. Persistent moderate amount of stool at the hepatic flexure of the colon. No free intraperitoneal gas or dilated gas-filled loops of bowel to suggest obstru ction.
--- NOTE | ~2022-07-19 | XR_ITS ---
EXAMINATION: XR enema water soluble DATE: 07/23/2022 13:36 INDICATION: Constipation. TECHNIQUE: A jewelry sales coordinator radiograph was obtained. A catheter was inserted into the patient's rectum. Contra st was infused by gravity. Fluoroscopic spot images and conventional radiographs were obtained. Fluor oscopy exposure time was 0.5 minutes. The total number of images was 51. COMPARISON: CT abdomen and pelvis 07/22/2022, 05/17/22 FINDINGS: There is an electrode in left S3 neural foramen. There is stool in the descending colon. Co ntrast passes to the splenic flexure of the colon. The transverse colon and ascending colon are diste nded. IMPRESSION: 1. Contrast passes to the splenic flexure of the colon where there is stool. The transverse and ascen ding colon are distended, but not opacified by contrast. Hopefully this exam will relieve the stool i mpaction in the splenic flexure. Therapeutic enemas are recommended given the stercoral colitis in th e hepatic flexure of the colon suggested by CT. Reviewed, dictated and finalized at location A. RACT ANALYST IMPRESSION: 1. Contrast passes to the splenic flexure of the colon where there is stool. Th e transverse and ascending colon are distended, but not opacified by contrast. Hopefully this exam will relieve the stool impaction in the splenic flexure. Th erapeutic enemas are recommended given the stercoral colitis in the hepatic fle xure of the colon suggested by CT.
--- NOTE | ~2022-07-19 | US_ITS ---
EXAMINATION: US scrotum doppler DATE: 07/26/2022 16:48 INDICATION: Scrotal pain and recent epididymitis. TECHNIQUE: Grayscale and Doppler ultrasound images of the testes were obtained. COMPARISON: Ultrasound 07/19/2022 FINDINGS: The right testis measures 3.1 x 1.3 x 1.9 cm. The left testis measures 3.3 x 2.0 x 2.5 cm. There is increased vascular flow in left testis. The right epididymis demonstrates an 8 mm cyst. The left epididymis is enlarged and heterogeneous with increased vascular flow. There is no varicocele or hydrocele. There is left-sided scrotal skin thickening. IMPRESSION: 1. Left-sided epididymoorchitis. Reviewed, dictated and finalized at location A. REPAIRER
--- NOTE | ~2022-07-19 | XR_ITS ---
EXAMINATION: XR abdomen/kub 1V DATE: 07/22/2022 12:45 INDICATION: Abdominal pain. Constipation. TECHNIQUE: A supine view of the abdomen on 3 radiographs was obtained. COMPARISON: CT abdomen and pelvis 05/17/2022 FINDINGS: There is gaseous distention of the transverse colon. The small bowel is normal in caliber. There is an electrode in left S3 neural foramen. IMPRESSION: 1. Gaseous distention of the transverse colon, likely adynamic ileus. Reviewed, dictated and finalized at location A. RTMENT CHAIR
--- NOTE | ~2022-07-19 | XR_ITS ---
Supine and upright views of the abdomen Clinical history: Splenic flexure impaction Findings: Bowel gas pattern is nonspecific, with prominent air distention of transverse colon. No tanika dence for obstruction or free air. No abnormal mass lesion or calcification is seen. Osseous structur es are intact. Neurostimulator device present. Impression: Nonspecific bowel gas pattern, with prominent air distention of transverse colon. Reviewed, dictated and finalized at [facility]. ZING PAD OPERATOR Impression: Nonspecific bowel gas pattern, with prominent air distention of transverse colo n.
--- NOTE | ~2022-07-19 | CT_ITS ---
EXAMINATION: CT abdomen pelvis w con DATE: 07/22/2022 17:48 INDICATION: COLONIC DILATATION, ABD PAIN TECHNIQUE: Computed tomography (CT) of the abdomen and pelvis was performed with 100 mL Omnipaque-350 intravenous contrast. Automated exposure control and iterative reconstruction technique were employe d. The dose-length product was 1628.10 mGy-cm. COMPARISON: None. FINDINGS: Lower thorax: Dependent atelectasis/scar. Cardiomegaly. Incompletely visualized pacing wires. Liver: Normal. Biliary/Gallbladder: Gallbladder is normal. Mild intrahepatic, extrahepatic, and pancreatic duct dila tion similar to the prior study. Pancreas: No mass or duct dilation. Spleen: Normal. Adrenals: Likely left adrenal adenoma. Kidneys: No suspicious mass. Left renal hypodensity, too small to characterize but likely represents a cyst. No hydronephrosis. Simple left upper pole cyst. Nonobstructing left lower pole calcification. Punctate right lower pole calculus. GI tract: Dilated feces filled ascending colon, with chronic submucosal fat noted at the hepatic flex ure. Dilated, air-filled transverse colon, without transition point or mass identified No small bowel dilation. Appendix not confidently visualized. Mesentery/Peritoneum: No ascites, mass, or free air. Mild upper mesenteric edema. Retroperitoneum: No mass. Atherosclerotic abdominal aortic and/or arterial calcifications. Pelvis: The bladder is decompressed by a Kurtz catheter. Soft Tissues: Soft tissues and body wall unremarkable. Bones: No acute osseous finding. IMPRESSION: Dilated ascending and transverse colon may reflect ileus or obstruction. No transition point identifi ed. Reviewed, dictated and finalized at location K. DYNAMIC CONSULTANT IMPRESSION: Dilated ascending and transverse colon may reflect ileus or obstruction. No tra nsition point identified.
[2022-07-19] MEDS: ONDANSETRON INJ 4 MG/2 ML VIAL IV PUSH ×2 (06:43→09:44)
--- NOTE | 2022-07-19 06:43 | ED.MALEGU ---
HPI - Male Genitourinary General Chief complaint: Urogenital-Male <Tavares Russ MD - Last Filed: 07/19/22 06:58> Stated complaint: groin pain, testicule swelling <Tavares Russ MD - Last Filed: 07/19/22 06:58> Time Seen by Provider: 07/19/22 06:13 <Tavares Russ MD - Last Filed: 07/19/22 06:58> History of Present Illness HPI Narrative: Patient is a 67-year-old male with complex urologic history. He follows with Dr. Schmidt. Patient reports history of recurrent UTIs. He has had a partial prostatectomy. He is to have a indwelling suprapubic catheter that has been removed in the last month. Apparently in last month he is also been hospitalized with a PICC line for drug-resistant Klebsiella in his urine. He is currently on fosfomycin orally. Reports she has daily dysuria which is normal for him. Unfortunately over the last 24 hours she has developed swelling of his left testicle with tenderness and pain going down his left leg. He has no urinary retention. No drainage from his penis. No rash. No pain to the perineum. Patient reports he did have some diarrhea yesterday preceding this. <Tavares Russ MD - Last Filed: 07/19/22 06:58> Related Data Home medications: Home Medications Medication Instructions Recorded Confirmed albuterol sulfate 90 mcg/actuation 2 inh inhalation PRN PRN shortness 02/25/20 07/06/22 aerosol inhaler (ProAir HFA) of breath aspirin 81 mg tablet,delayed 81 mg PO QAM 02/25/20 07/06/22 release (Shayna Low Dose Aspirin) spironolactone 25 mg tablet 25 mg PO HS 03/11/20 07/06/22 budesonide-formoterol HFA 160 2 puff inhalation BID 01/31/21 07/06/22 mcg-4.5 mcg/actuation aerosol inhaler (Symbicort) metformin 500 mg tablet 500 mg PO BID 07/05/21 07/06/22 potassium chloride 20 mEq 1 tablet PO DAILY 01/03/22 07/06/22 tablet,extended release(part/cryst) (Klor-Con M) tamsulosin 0.4 mg capsule 1 cap PO DAILY 01/03/22 07/06/22 multivitamin 1 tablet PO .QD 03/16/22 07/06/22 rosuvastatin 20 mg tablet (Crestor) 20 mg PO .QD 03/16/22 07/06/22 empagliflozin 10 mg tablet 10 mg PO .QD 07/06/22 07/06/22 (Jardiance) insulin aspart U-100 100 unit/mL 1 sliding scale dose subcut 07/06/22 07/06/22 (3 mL) subcutaneous pen (Novolog USEASDIRECTD FlexPen U-100 Insulin aspart) insulin degludec 100 unit/mL (3 35 unit subcut .QD 07/06/22 07/06/22 mL) subcutaneous pen (Tresiba FlexTouch U-100 insulin) vibegron 75 mg tablet (Gemtesa) 75 mg PO .QD 07/06/22 07/06/22 <Tavares Russ MD - Last Filed: 07/19/22 06:58> Allergies/Adverse reactions: Allergies Allergy/AdvReac Type Severity Reaction Status Date / Time Sulfa (Sulfonamide Allergy Rash Verified 07/19/22 05:52 Antibiotics) menthol AdvReac Severe BROWER SKIN Verified 07/19/22 05:52 <Tavares Russ MD - Last Filed: 07/19/22 06:58> Review of Systems Review of Systems: All systems reviewed & are unremarkable except as noted in HPI and below <Tavares Russ MD - Last Filed: 07/19/22 06:58> Constitutional: Constitutional: Denies chills, Denies fatigue and Denies fever(s) <Tavares Russ MD - Last Filed: 07/19/22 06:58> Cardiovascular: Cardiovascular: Denies chest pain and Denies rapid heart rate <Tavares Russ MD - Last Filed: 07/19/22 06:58> Gastrointestinal: Gastrointestinal: Denies abdominal pain, Reports diarrhea, Reports nausea and Denies vomiting <Tavares Russ MD - Last Filed: 07/19/22 06:58> Genitourinary: Genitourinary: Denies oliguria, Reports dysuria, Denies penile discharge and Reports testicular pain <Tavares Russ MD - Last Filed: 07/19/22 06:58> PMFSH Past Medical History Medical History: Medical History (Updated 07/19/22 @ 09:40 by Selvin Pandya MD) Adrenal adenoma stable on imaging since 2018 Benign prostatic hyperplasia (BPH) with urinary urge incontinence the patient is in test debating a bladder stimulator placement [facility]
[2022-07-19] MEDS: MORPHINE SULFATE (*CRX) 4 MG/ML INJ IV PUSH ×3 (06:44→21:27)
[2022-07-19 06:45] LABS: Basophils Percent Auto 0.4 % (0.2-1.2); Eosinophils Absolute Auto 0.2 K/mm3 (0-0.3); Eosinophils Percent Auto 2.4 % (0-4.4); Hemoglobin 14.2 g/dL (14.0-18.0); Immature Granulocyte Absolute 0.03 K/mm3 (0.00-0.031); Immature Granulocyte Percent A 0.4 % (0-0.5); Lymphocytes Absolute Auto 1.11 K/mm3 (0.9-3.2); Lymphocytes Percent Auto 13.8 % (18.3-44.2); Mean Corpuscular HGB Conc 31.6 g/dl (32-36); Mean Corpuscular Hemoglobin 28.3 pg (26-34); Mean Corpuscular Volume 89.8 fl (80-100); Mean Platelet Volume 10.7 fl (7.4-10.4); Monocytes Absolute Auto 0.8 K/mm3 (0.1-0.6); Monocytes Percent Auto 9.6 % (2.6-8.5); Neutrophils Absolute Auto 5.9 K/mm3 (1.3-6.7); Neutrophils Percent Auto 73.4 % (45.5-73.1); Platelet Count Result 232 k/mm3 (150-375); Red Blood Count 5.01 M/mm3 (4.6-6.20); Red Cell Distribution Width 15.8 % (11.5-14.5)
[2022-07-19 06:56] LABS: Anion Gap 4 mmol/L (8-16); Blood Urea Nitrogen 16 mg/dL (9-20); Calcium 9.5 mg/dL (8.4-10.2); Carbon Dioxide 34 mmol/L (22-30); Chloride 100 mmol/L (98-107); Estimated CRCL calculation 116 ml/min; Estimated Glomerular Filt Rate > 60; Glucose 143 mg/dL (65-110); Lactic Acid Reflex 0.9 mmol/L (0.7-2.0); Potassium 3.7 mmol/L (3.4-5.0); Sodium 138 mmol/L (137-145)
[2022-07-19 06:58] LABS: Prothrombin Time 12.9 Seconds (11.1-14.7)
[2022-07-19 06:59] LABS: Appearance Urine Clear (Clear); Bilirubin Urine Negative (Negative); Blood Urine Negative (Negative); Color Urine Yellow (Yellow); Glucose Urine UA 3+ mg/dL (Negative); Ketones Urine Negative (Negative); Leukocyte Esterase Ur Negative LEU/UL (Negative); Nitrate Urine Positive (Negative); Protein Urine Negative (Negative); Specific Grav Ur 1.015 (1.001-1.035); Urobilinogen Urine 0.2 mg/dL (<2.0); pH Urine 5.5 (5.0-9.0)
[2022-07-19 07:07] LABS: Bacteria Urine 4+ /hpf; WBC Clumps Urine Present /HPF; WBC Urine 16-20 /hpf
[2022-07-19 07:09] LABS: Add Urine Microscopic? YES
--- NOTE | 2022-07-19 07:30 | PC.NURSE ---
waiting us availability. pt resting quietly on stretcher.
--- NOTE | 2022-07-19 09:00 | PC.NURSE ---
pt c/o nausea, abd pain, and thirst. edp notified and at bedside speaking with pt. pending further orders.
[2022-07-19] MEDS: SODIUM CHLORIDE 0.9% IV 1,000 ML 150 ML IV CONT (09:43)
[2022-07-19 09:50] LABS: Glucose Point of Care 144 mg/dl (65-105)
[2022-07-19] MEDS: cefTRIAXone 2 GM in SODIUM CHLORIDE 0.9% IV 100 ML 200 ML IVPB (10:33)
[2022-07-19 10:49] LABS: Influenza A QL RT-PCR Negative (Negative); Influenza B QL RT-PCR Negative (Negative); SARS-CoV-2 RNA PCR Negative
[2022-07-19] MEDS: SODIUM CHLORIDE 0.9% IV 1,000 ML 125 ML IV CONT (12:22)
[2022-07-19 12:26] LABS: Glucose Point of Care 155 mg/dl (65-105)
--- NOTE | 2022-07-19 12:32 | ADMGEN ---
This patient, Rah Greco, was admitted to [facility] Surg Room 330-02. Patient/family oriented to hospital policies and general routines including ID bracelet, bed and alarms, visiting hours, pain management, procedures, bathroom and other care routines, personal items, smoking policy, room service/diet, and visiting hours. Information on how to activate the Rapid Response Team has been discussed. Patient/Family are encouraged to report perceived risks to care and to ask questions if they do not understand what they are told or what they should do.
--- NOTE | 2022-07-19 13:54 | PM.IMHP ---
H&P: HPI History of Present Illness Date/Time: 07/19/22 13:54 Chief Complaint: Groin pain Narrative: This is a 67-year-old male patient who follows with Dr. Diamond. The patient has a history of recurrent UTIs. He has also a partial prostatectomy. The patient recently had a chronic indwelling suprapubic catheter which was removed last month. This past month the patient was hospitalized for UTI for drug resistant Klebsiella in his urine. He did have a PICC line up until recently for IV antibiotics. The patient is currently on fosfomycin orally. The patient comes to the emergency room today with complaints of dysuria and edema to his scrotum. The patient stated that he has pain and tenderness to that left scrotum the causes the pain to go all the way down to his left leg. He is also complaining of a headache. The patient is also complaining of some diarrhea. His white count is normal. Neutrophil percentage 73.4. Lymph percentage is low at 13.8. He is diabetic and his blood sugar was 144 and then 155 today. Urine is positive for nitrates the PBC 16-20 and 4+ bacteria. The patient is negative for influenza A/B and COVID. Scrotum ultrasound was read as the following left epididymis is. Small complex multi septated left hydrocele. Super infected hydrocele is a consideration. No testicular torsion or testicular mass. The patient was given Zofran, morphine, and ceftriaxone in the emergency room. Urology has been consulted. The patient is being admitted to inpatient status on the date of service of 07/19/2022. Review of Systems Review of Systems: See HPI All systems reviewed & are unremarkable except as noted in HPI and below Constitutional: Constitutional: Reports as per HPI and Reports no additional constitutional complaints Eyes: Eyes: Reports as per HPI and Reports no additional eye complaints ENT: Reports system reviewed and no additional complaints, except as documented and Reports Normal hearing present Cardiovascular: Cardiovascular: Reports no additional cardiovascular complaints Respiratory: Respiratory: Reports no additional respiratory complaints and Reports no additional respiratory complaints Gastrointestinal: Gastrointestinal: Reports as per HPI and Reports no additional gastrointestinal complaints Musculoskeletal: Musculoskeletal: Reports no additional musculoskeletal complaints Integumentary/Breasts: Skin/Breast: Reports system reviewed and no additional complaints, except as docu and Reports as per HPI Neurologic: Reports system reviewed and no additional complaints, except as documented, Reports as per HPI and Reports Normal hearing present Psychiatric: Psychiatric: Reports no additional psychiatric complaints and Reports as per HPI Endocrine: Endocrine: Reports no additional endocrine complaints Hematologic/Lymphatic: Hematologic/Lymphatic: Reports no additional hematologic/lymphatic complaints Allergic/Immunologic: Allergic/Immunologic: Reports no additional allergic/immunologic complaints [facility] Past Medical History Medical History (Updated 07/19/22 @ 14:22 by Francisca Frias NP) Adrenal adenoma stable on imaging since 2017 Benign prostatic hyperplasia (BPH) with urinary urge incontinence the patient is in test debating a bladder stimulator placement March [address] Sargent Bilateral cataracts maturing BMI 40.0-44.9, adult BMI greater than 40 Brugada syndrome C. 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
[2022-07-19] MEDS: ACETAMINOPHEN 325 MG TABLET 650 MG PO (15:15)
--- NOTE | 2022-07-19 15:45 | WPDURCON ---
Assessment and Plan Assessment and plan (1) Acute UTI: Code(s): N39.0 - Urinary tract infection, site not specified Status: Acute (2) Epididymitis: Code(s): N45.1 - Epididymitis Status: Acute (3) Hydrocele in adult: Code(s): N43.3 - Hydrocele, unspecified Status: Acute (4) BMI greater than 40: Status: Acute (5) Kidney stones: Code(s): N20.0 - Calculus of kidney Status: Acute Plan 67-year-old gentleman with recurrent urine tract infections, admitted with urinary tract infection and left epididymitis with associated left hydrocele. - recommend continued broad-spectrum antibiotic. Await final urine culture. recommend tailoring antibiotic choice based on cultures. Additionally, the patient has a infectious disease physician at [facility] that may be helpful to consult to determine discharge antibiotics - recommend scrotal elevation to reduce discomfort and decrease swelling - patient with nonobstructing renal stones CT scan 05/2022. Consider repeat upper tract imaging as source of infection if he does not improve - bladder scan after void to ensure his hand Urology Consult Note HPI Date Seen: 07/19/22 Requesting Physician: Yusef Brown MD Primary Care Provider: Kenton Ricks MD Consult Narrative Narrative: Rah Greco is a 67 year old male With a history of recurrent UTIs follow-up by Infectious Disease at [facility].? He was recently hospitalized for UTI for drug resistant Klebsiella in his urine.? He did have a PICC line up until recently for IV antibiotics and is currently on fosfomycin orally.? patient presents emergency department with worsening dysuria patient patient left-sided tenderness. He denies fevers chills. [facility] Past Medical History Medical History (Updated 07/19/22 @ 15:51 by Farrah Maier MD) Adrenal adenoma stable on imaging since 2017 Benign prostatic hyperplasia (BPH) with urinary urge incontinence the patient is in test debating a bladder stimulator placement March [address] Sargent Bilateral cataracts maturing BMI 40.0-44.9, adult BMI greater than 40 Brugada syndrome C. 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 Complex sleep apnea syndrome Dermatitis Diabetes mellitus type 2, diet-controlled hemoglobin A1c of 6.03 August 2019 Diabetes type 2, controlled Diaphragm paralysis GERD (gastroesophageal reflux disease) Headache Hearing loss in left ear History of cluster headache History of colon polyps Infection of penis Kidney stones Kidney stones Knee osteoarthritis Low testosterone Lumbar degenerative disc disease Mixed hyperlipidemia Morbid (severe) obesity due to excess calories Neurofibromatosis Polyuria Pulmonary embolism Rash Spinal stenosis, lumbar region with neurogenic claudication Syncope Thoracic aortic aneurysm (TAA) measuring 4.5 cm on CTA from 2018 Thyroid nodule status post biopsy with benign pathology Surgical History Surgical History (Updated 07/19/22 @ 14:18 by Francisca Frias NP) AICD (automatic cardioverter/defibrillator) present Biceps tendon rupture status post repair History of appendectomy History of arthroscopy of left knee due to meniscal tear History of colonoscopy with polypectomy History of prostatectomy with chronic urinary incontinence S/P removal of thyroid nodule Status post left rotator cuff repair Status post trigger finger release bilateral Family History Family History Father Cerebrovascular accident Neurofibromatosis Coronary artery disease Diabetes mellitus CHF (congesti
--- NOTE | 2022-07-19 16:12 | IDPHARM ---
Subjective Pharmacy was consulted by Lior Frias regarding infectious diseases for Rah Greco. Rah Greco is a 67 year old M with concerns regarding UTI. Background The patient is currently receiving Ceftriaxone. The patient's PMH includes drug resistant Klebsiella per the urology note recently treated at [facility]. Blood and Urine cultures have been obtained today and are pending. Patient WBC is 8. Assessment/Recommendation/Discussion Patient started on ceftriaxone for UTI which is appropriate, depending on level of drug resistance this choice may be inappropriate per the patient's recent uti history. Spoke with the provider about continuing current therapy and looking to obtain those records from recent stay to see what this patient's history is. Provider mentioned patient was thinking they may have been on ceftriaxone for that recent course but was not 100% sure. Will follow current cultures and look forward to seeing the results from the culture from the recent stay. Threshold to increase to an ertapenem to cover ESBL klebsiella isolates is low given the reported UTI history for this patient. Thank you for the interesting consult. Gorge Kramer, PharmD Infectious Disease/Antimicrobial Stewardship Pharmacist 07/19/22; [id number]
[2022-07-19 16:39] LABS: Glucose Point of Care 141 mg/dl (65-105)
[2022-07-19] MEDS: MULTIVITAMINS THERAPEUTIC TAB (*BKC) 1 TABLET PO (16:43)
[2022-07-19] MEDS: PRAMIPEXOLE 1 MG TABLET 2 MG BY MOUTH (16:43)
[2022-07-19] MEDS: PANTOPRAZOLE 40 MG TABLET BY MOUTH (16:43)
[2022-07-19] MEDS: TORSEMIDE 20 MG TABLET 40 MG PO (16:43)
[2022-07-19 20:01] LABS: Glucose Point of Care 227 mg/dl (65-105)
[2022-07-19] MEDS: SPIRONOLACTONE 25 MG TABLET PO (20:53)
[2022-07-19] MEDS: TOLNAFTATE 1% POWDER 45 GM BTL 1 APPLIC TOPICAL (21:26)
[2022-07-19] MEDS: FLUTICASONE/SALMETEROL 115-21 MCG INHALER 1 PUFF 2 PUFF INHALATION (21:56)
[2022-07-20] VITALS (7 sets, daily range): BP systolic 124–133; BP diastolic 58–70; PULSE 66–73; RESP 16–18; TEMP 36.5–36.7; O2SAT 93–95
[2022-07-20] MEDS: MORPHINE SULFATE (*CRX) 4 MG/ML INJ IV PUSH ×2 (02:51→07:47)
[2022-07-20 05:56] LABS: Basophils Percent Auto 0.3 % (0.2-1.2); Eosinophils Absolute Auto 0.1 K/mm3 (0-0.3); Eosinophils Percent Auto 1.4 % (0-4.4); Hematocrit 41.9 % (42.0-52.0); Immature Granulocyte Absolute 0.04 K/mm3 (0.00-0.031); Immature Granulocyte Percent A 0.5 % (0-0.5); Lymphocytes Absolute Auto 0.94 K/mm3 (0.9-3.2); Lymphocytes Percent Auto 10.7 % (18.3-44.2); Mean Corpuscular Hemoglobin 27.7 pg (26-34); Mean Corpuscular Volume 89.3 fl (80-100); Monocytes Absolute Auto 0.8 K/mm3 (0.1-0.6); Monocytes Percent Auto 9.3 % (2.6-8.5); Neutrophils Absolute Auto 6.8 K/mm3 (1.3-6.7); Neutrophils Percent Auto 77.8 % (45.5-73.1); Platelet Count Result 213 k/mm3 (150-375); Red Blood Count 4.69 M/mm3 (4.6-6.20); Red Cell Distribution Width 15.8 % (11.5-14.5); White Blood Count 8.8 K/mm3 (4.5-10.0)
[2022-07-20 06:10] LABS: Alanine Aminotransferase 121 U/L (6-50); Albumin Level 3.7 g/dL (3.5-5.1); Alkaline Phosphatase 479 U/L (38-126); Anion Gap 4 mmol/L (8-16); Aspartate Amino Transferase 46 U/L (17-59); Bilirubin,Total 0.7 mg/dL (0.2-1.3); Blood Urea Nitrogen 11 mg/dL (9-20); Calcium 8.2 mg/dL (8.4-10.2); Carbon Dioxide 30 mmol/L (22-30); Chloride 102 mmol/L (98-107); Estimated CRCL calculation 116 ml/min; Estimated Glomerular Filt Rate > 60; Glucose 161 mg/dL (65-110); Magnesium 2.3 mg/dL (1.6-2.3); Phosphorus 3.5 mg/dL (2.5-4.5); Potassium 3.6 mmol/L (3.4-5.0); Sodium 136 mmol/L (137-145)
[2022-07-20 06:14] LABS: Lactic Acid Reflex 0.8 mmol/L (0.7-2.0)
[2022-07-20 08:27] LABS: Glucose Point of Care 168 mg/dl (65-105)
[2022-07-20] MEDS: cefTRIAXone 2 GM in SODIUM CHLORIDE 0.9% IV 100 ML 200 ML IVPB (09:41)
[2022-07-20] MEDS: PRAMIPEXOLE 1 MG TABLET BY MOUTH (09:44)
[2022-07-20] MEDS: LOSARTAN POTASSIUM 25 MG TABLET PO (09:44)
[2022-07-20] MEDS: PANTOPRAZOLE 40 MG TABLET BY MOUTH (09:44)
[2022-07-20] MEDS: TORSEMIDE 20 MG TABLET 40 MG PO ×2 (09:44→17:02)
[2022-07-20] MEDS: glipiZIDE 5 MG TABLET PO (09:44)
[2022-07-20] MEDS: ROSUVASTATIN 10 MG TABLET 20 MG PO (09:44)
[2022-07-20] MEDS: MULTIVITAMINS THERAPEUTIC TAB (*BKC) 1 TABLET PO (09:44)
[2022-07-20] MEDS: TOLNAFTATE 1% POWDER 45 GM BTL 1 APPLIC TOPICAL ×2 (09:45→20:21)
[2022-07-20] MEDS: allopurinoL 100 MG TABLET PO (09:45)
[2022-07-20] MEDS: POTASSIUM CHLORIDE 20 MEQ TABLET.ER PO (09:45)
[2022-07-20] MEDS: CHOLECALCIFEROL 1,000 UNITS TABLET 1000 UNITS PO (09:45)
[2022-07-20] MEDS: FLUTICASONE/SALMETEROL 115-21 MCG INHALER 1 PUFF 2 PUFF INHALATION ×2 (09:50→20:50)
--- NOTE | 2022-07-20 11:08 | PM.IMPN ---
Progress Note: A&P Assessment and Plan (1) Acute UTI: Code(s): N39.0 - Urinary tract infection, site not specified Status: Acute Assessment and Plan: -patient was recently on IV antibiotics with a PICC line, also recently had a suprapubic catheter which has since been removed -UA positive for UTI in ER, started on ceftriaxone -urology consult -the patient did have a suprapubic catheter which is since been removed. -no leukocytosis or fever, blood cultures pending, does not appear septic at this time -hx of morganella morganiii in his urine -follow urine cultures and tailor abx as indicated (2) Epididymitis: Code(s): N45.1 - Epididymitis Status: Acute Assessment and Plan: -continue Rocephin -ice packs, scrotal support -pain control, switched from morphine to PO percocet and norco today to see if he gets longer lasting relief, he complained today that the morphine was helping but wearing off too quickly (3) CHF (congestive heart failure): Qualifiers: Heart failure type: unspecified Heart failure chronicity: unspecified Qualified Code(s): I50.9 - Heart failure, unspecified Code(s): I50.9 - Heart failure, unspecified Status: Chronic Assessment and Plan: -hx of CHF w/ 2+ edema BLE -DC IVF -No recent echo in our system for comparison -as mentioned in previous notes the patient has an EF of 65% as of 2020 and has diastolic dysfunction -continue with spironolactone and Demadex (4) Complex sleep apnea syndrome: Code(s): G47.31 - Primary central sleep apnea Status: Acute Assessment and Plan: -the patient stated that he uses a BiPAP at home -titrate to home settings (5) Hypertension: Qualifiers: Hypertension type: essential hypertension Qualified Code(s): I10 - Essential (primary) hypertension Code(s): I10 - Essential (primary) hypertension Status: Chronic Assessment and Plan: -continue with spironolactone and Cozaar (6) Mixed hyperlipidemia: Code(s): E78.2 - Mixed hyperlipidemia Status: Chronic Assessment and Plan: -hold Crestor due to elevated LFTs (7) Diabetes type 2, controlled: Qualifiers: Diabetes mellitus interventional pain physician insulin use: without care home use Diabetes mellitus complication status: without complication Qualified Code(s): E11.9 - Type 2 diabetes mellitus without complications Code(s): E11.9 - Type 2 diabetes mellitus without complications Status: Acute Assessment and Plan: -Accu-Cheks AC and HS with hypoglycemic protocol -check A1c -patient's metformin was on hold due to possibility of lactic acidosis -he states his medical artist recently discontinued his Glipizide (8) Elevated LFTs: Code(s): R79.89 - Other specified abnormal findings of blood chemistry Status: Acute Assessment and Plan: -ALT and alk phos mildly elevated -hold Crestor -check RUQ US and hepatitis panel Subjective Date/time seen: 07/20/22 11:08 Interval history: 67 yo male w/ hx of recurrent UTI and partial prostatectomy admitted for epididymitis and UTI. He is still in quite a bit of pain today. States the morphine helps but only for an hour or so. Mild lower abd pain, some nausea. No fevers. Review of Systems Review of Systems: All systems reviewed & are unremarkable except as noted in HPI and below Exam Narrative: General: No acute distress, non toxic Eyes: PERRL, no scleral icterus HEENT: NCAT, external ears normal, MMM Respiratory: No respiratory distress, Lungs CTA bilaterally, no wheezing Cardiovascular: RRR, no murmur Abdominal: Soft, nontender, non distended, no rebound or guarding Musculoskeletal: Moves all 4 extremities, 2+ edema BLE Neurological: A/Ox3, speech clear, no facial asymmetry Skin: Warm, dry, no rashes Psychiatric: Normal aff
[2022-07-20 12:08] LABS: Glucose Point of Care 214 mg/dl (65-105)
[2022-07-20 13:45] LABS: Hemoglobin A1C 7.6 % (<5.7)
[2022-07-20] MEDS: ONDANSETRON INJ 4 MG/2 ML VIAL IV PUSH (17:02)
[2022-07-20] MEDS: PRAMIPEXOLE 1 MG TABLET 2 MG BY MOUTH (17:02)
[2022-07-20] MEDS: INSULIN ASPART (*BKC) 100 UNITS/ML SUB-Q (17:02)
[2022-07-20 17:04] LABS: Glucose Point of Care 244 mg/dl (65-105)
[2022-07-20] MEDS: oxyCODONE/ACETAMINOPHEN (*CRX) 5-325 MG TABLET 1 TABLET PO ×2 (17:07→22:17)
[2022-07-20] MEDS: SPIRONOLACTONE 25 MG TABLET PO (20:21)
[2022-07-20 20:51] LABS: Glucose Point of Care 219 mg/dl (65-105)
[2022-07-21 02:33] VITALS: O2SAT 96
[2022-07-21 06:00] VITALS: BP 119/54; PULSE 64; RESP 19; TEMP 36.3; O2SAT 94
[2022-07-21 06:40] LABS: Basophils Percent Auto 0.3 % (0.2-1.2); Eosinophils Absolute Auto 0.1 K/mm3 (0-0.3); Eosinophils Percent Auto 1.7 % (0-4.4); Hematocrit 41.5 % (42.0-52.0); Hemoglobin 12.9 g/dL (14.0-18.0); Immature Granulocyte Absolute 0.02 K/mm3 (0.00-0.031); Immature Granulocyte Percent A 0.3 % (0-0.5); Lymphocytes Absolute Auto 0.88 K/mm3 (0.9-3.2); Lymphocytes Percent Auto 11.5 % (18.3-44.2); Mean Corpuscular HGB Conc 31.1 g/dl (32-36); Mean Corpuscular Hemoglobin 27.9 pg (26-34); Mean Corpuscular Volume 89.6 fl (80-100); Mean Platelet Volume 10.4 fl (7.4-10.4); Monocytes Absolute Auto 0.7 K/mm3 (0.1-0.6); Monocytes Percent Auto 9.1 % (2.6-8.5); Neutrophils Absolute Auto 5.9 K/mm3 (1.3-6.7); Neutrophils Percent Auto 77.1 % (45.5-73.1); Platelet Count Result 206 k/mm3 (150-375); Red Blood Count 4.63 M/mm3 (4.6-6.20); Red Cell Distribution Width 15.7 % (11.5-14.5); White Blood Count 7.6 K/mm3 (4.5-10.0)
[2022-07-21 06:53] LABS: Alanine Aminotransferase 78 U/L (6-50); Albumin Level 3.8 g/dL (3.5-5.1); Alkaline Phosphatase 397 U/L (38-126); Anion Gap 3 mmol/L (8-16); Aspartate Amino Transferase 23 U/L (17-59); Bilirubin,Total 0.7 mg/dL (0.2-1.3); Blood Urea Nitrogen 12 mg/dL (9-20); Calcium 8.5 mg/dL (8.4-10.2); Carbon Dioxide 33 mmol/L (22-30); Chloride 96 mmol/L (98-107); Estimated CRCL calculation 102 ml/min; Estimated Glomerular Filt Rate > 60; Glucose 204 mg/dL (65-110); Potassium 3.7 mmol/L (3.4-5.0); Sodium 132 mmol/L (137-145)
[2022-07-21 07:50] LABS: Hepatitis B Surface Antigen Negative (Negative)
[2022-07-21 07:56] LABS: HAV RESULT Negative (Negative); Hepatitis B Core IgM Result Negative (Negative)
[2022-07-21 08:08] LABS: Hepatitis C Virus Antibody Negative (Negative)
[2022-07-21 08:24] LABS: Glucose Point of Care 199 mg/dl (65-105)
[2022-07-21] MEDS: LOSARTAN POTASSIUM 25 MG TABLET PO (08:37)
[2022-07-21] MEDS: TORSEMIDE 20 MG TABLET 40 MG PO ×2 (08:37→17:03)
[2022-07-21] MEDS: glipiZIDE 5 MG TABLET PO (08:37)
[2022-07-21] MEDS: POTASSIUM CHLORIDE 20 MEQ TABLET.ER PO (08:37)
[2022-07-21] MEDS: allopurinoL 100 MG TABLET PO (08:37)
[2022-07-21] MEDS: MULTIVITAMINS THERAPEUTIC TAB (*BKC) 1 TABLET PO (08:37)
[2022-07-21] MEDS: CHOLECALCIFEROL 1,000 UNITS TABLET 1000 UNITS PO (08:37)
[2022-07-21] MEDS: TOLNAFTATE 1% POWDER 45 GM BTL 1 APPLIC TOPICAL ×2 (08:37→19:57)
[2022-07-21] MEDS: PRAMIPEXOLE 1 MG TABLET BY MOUTH (08:38)
[2022-07-21] MEDS: PANTOPRAZOLE 40 MG TABLET BY MOUTH (08:38)
[2022-07-21] MEDS: cefTRIAXone 2 GM in SODIUM CHLORIDE 0.9% IV 100 ML 200 ML IVPB (08:40)
[2022-07-21] MEDS: oxyCODONE/ACETAMINOPHEN (*CRX) 5-325 MG TABLET 1 TABLET PO ×3 (08:40→20:00)
[2022-07-21 09:04] VITALS: O2SAT 92
[2022-07-21] MEDS: FLUTICASONE/SALMETEROL 115-21 MCG INHALER 1 PUFF 2 PUFF INHALATION ×2 (09:04→20:55)
[2022-07-21 11:55] LABS: Glucose Point of Care 236 mg/dl (65-105)
[2022-07-21] MEDS: INSULIN ASPART (*BKC) 100 UNITS/ML SUB-Q ×2 (12:23→17:03)
--- NOTE | 2022-07-21 13:34 | PM.IMPN ---
Progress Note: A&P Assessment and Plan (1) Epididymitis: Code(s): N45.1 - Epididymitis Status: Acute (2) Acute UTI: Code(s): N39.0 - Urinary tract infection, site not specified Status: Acute (3) Diabetes type 2, controlled: Qualifiers: Diabetes mellitus petroleum terminal plant operator insulin use: without petroleum terminal plant operator use Diabetes mellitus complication status: without complication Qualified Code(s): E11.9 - Type 2 diabetes mellitus without complications Code(s): E11.9 - Type 2 diabetes mellitus without complications Status: Acute (4) Acute diastolic CHF (congestive heart failure): Code(s): I50.31 - Acute diastolic (congestive) heart failure Status: Acute (5) Morbid obesity: Code(s): E66.01 - Morbid (severe) obesity due to excess calories Status: Acute (6) Urinary retention with incomplete bladder emptying: Code(s): R33.9 - Retention of urine, unspecified Status: Acute Plan Urine cultures and sensitivity. Klebsiella pneumoniae Continue IV hydration. Monitor CBC CMP monitor for sepsis. Monitor vital signs antibiotics Rocephin Acute epididymitis urology on consult Will use Kurtz catheter due to urinary retention Monitor for obstructive uropathy and pyelonephritis Yearly eye exam and foot exam. HBA1c ( goal <7.0%) , Renal functions, Liver panel every 3 months Monitor vitamin B12 levels Optimize ANTIONE-inhibitor and statin Routine glucose monitoring. Watch for Hypoglycemia. BMI goal < 25 Sliding scale insulin. Holding metformin due to lactic acidosis Heart failure with preserved ejection fraction. EKG reviewed Chest x-ray reviewed Lipid panel, TSH,liver function test, TTE EF 60% 2021 History of sleep apnea On BiPAP at home Optimize Antione inhibitors and beta-blockers Daily weights Antiplatelet & Statin therapy Loop diuretics as indicate Patient educated about titrating diuretics at home based on weight blood pressure and symptoms. Optimize blood pressure < 130/80 Fall risk assessment Routine follow-up with the primary care physician and milling machine tender recommended Subjective Date/time seen: 07/21/22 13:34 Interval history: Patient still complains of quite a bit of pain in the groin area and testicular area testicles are still red. Difficulty urinating. Exam Narrative: GENERAL: Well appearing, well-nourished, non-toxic, in no acute distress. HEAD: Normocephalic, atraumatic. NECK: Supple. No adenopathy, no masses. RESPIRATORY: Airway patent, respirations nonlabored. Clear to auscultation bilaterally, no rales, rhonchi, wheezing. CARDIOVASCULAR: Regular rate and rhythm without murmurs, rubs, or gallops. Peripheral pulses 2+ and equal bilaterally. ABDOMINAL: Soft, nontender, nondistended, no hepatosplenomegaly. Normoactive BS. MUSCULOSKELETAL: no Epigastric and no hypochondrial tenderness SKIN: Warm, dry, normal color. Erythematous rashes. Testicles and the groin area NEURO: A&O X3. Moves all extremities PSYCHIATRIC: Appropriate mood and affect. Normal interaction. Objective Data Vital Signs Vital Signs: Vital Signs - 24 hr 07/20/22 14:07 07/20/22 20:57 07/20/22 20:59 Temperature 36.5 C Pulse Rate 71 Respiratory Rate 18 Blood Pressure 124/58 L Pulse Oximetry 93 95 95 Oxygen Delivery Room Air Room Air 07/20/22 22:00 07/20/22 20:21 07/21/22 02:33 Temperature 36.7 C Pulse Rate 73 Respiratory Rate 18 Blood Pressure 125/60 Pulse Oximetry 94 96 Oxygen Delivery Room Air Room Air 07/21/22 06:00 07/21/22 09:04 07/21/22 08:50 Temperature 36.3 C L Pulse Rate 64 Respiratory Rate 19 Blood Pressure 119/54 L Pulse Oximetry 94 92 Oxygen Delivery Room Air Room Air Intake/Output Intake/Output: Intake & Output 07/18/22 07/19/22 07/20/22 07/21/22 23:59 23:59 23:59 23:59 Intake Total 1340 2250 200 Output Total 1000 4600 1600 Balance 340 -2350 -1400 Meds/Results Medications: Active Med
[2022-07-21 14:22] VITALS: BP 112/74; PULSE 68; RESP 19; TEMP 36.2; O2SAT 91
[2022-07-21 14:46] LABS: Cholesterol 131 mg/dL (0-200); HDL Direct 25 mg/dL; Triglycerides 144 mg/dL (<150)
[2022-07-21 14:58] LABS: LDL Cholesterol Direct 61 mg/dL
[2022-07-21 15:18] LABS: Hemoglobin A1C 7.7 % (<5.7)
[2022-07-21 17:02] LABS: Glucose Point of Care 205 mg/dl (65-105)
[2022-07-21] MEDS: PRAMIPEXOLE 1 MG TABLET 2 MG BY MOUTH (17:03)
[2022-07-21] MEDS: DOCUSATE SODIUM 100 MG CAPSULE PO (18:20)
[2022-07-21] MEDS: SPIRONOLACTONE 25 MG TABLET PO (19:57)
[2022-07-21 20:28] LABS: Glucose Point of Care 198 mg/dl (65-105)
[2022-07-21 20:56] VITALS: PULSE 67; O2SAT 94
[2022-07-21 21:28] VITALS: BP 109/49; PULSE 69; RESP 18; TEMP 36.6; O2SAT 97
[2022-07-21] MEDS: ONDANSETRON INJ 4 MG/2 ML VIAL IV PUSH (21:46)
[2022-07-22] MEDS: oxyCODONE/ACETAMINOPHEN (*CRX) 5-325 MG TABLET 1 TABLET PO ×4 (00:27→22:12)
[2022-07-22 02:37] VITALS: PULSE 63; O2SAT 96
[2022-07-22 05:19] VITALS: BP 123/61; PULSE 60; RESP 18; TEMP 36.3; O2SAT 93
[2022-07-22 06:28] LABS: Hematocrit 38.8 % (42.0-52.0); Hemoglobin 12.3 g/dL (14.0-18.0); Mean Corpuscular HGB Conc 31.7 g/dl (32-36); Mean Corpuscular Hemoglobin 28.2 pg (26-34); Mean Platelet Volume 10.5 fl (7.4-10.4); Platelet Count Result 207 k/mm3 (150-375); Red Blood Count 4.36 M/mm3 (4.6-6.20); Red Cell Distribution Width 15.4 % (11.5-14.5); White Blood Count 8.1 K/mm3 (4.5-10.0)
[2022-07-22 06:36] LABS: Alanine Aminotransferase 52 U/L (6-50); Albumin Level 3.6 g/dL (3.5-5.1); Alkaline Phosphatase 310 U/L (38-126); Anion Gap 4 mmol/L (8-16); Aspartate Amino Transferase 19 U/L (17-59); Bilirubin,Total 0.7 mg/dL (0.2-1.3); Blood Urea Nitrogen 12 mg/dL (9-20); Calcium 8.2 mg/dL (8.4-10.2); Carbon Dioxide 31 mmol/L (22-30); Chloride 93 mmol/L (98-107); Estimated CRCL calculation 116 ml/min; Estimated Glomerular Filt Rate > 60; Glucose 211 mg/dL (65-110); Potassium 3.2 mmol/L (3.4-5.0); Sodium 128 mmol/L (137-145)
[2022-07-22 08:21] LABS: Glucose Point of Care 180 mg/dl (65-105)
[2022-07-22] MEDS: FLUTICASONE/SALMETEROL 115-21 MCG INHALER 1 PUFF 2 PUFF INHALATION ×2 (08:46→20:39)
[2022-07-22] MEDS: CHOLECALCIFEROL 1,000 UNITS TABLET 1000 UNITS PO (10:03)
[2022-07-22] MEDS: PRAMIPEXOLE 1 MG TABLET BY MOUTH (10:03)
[2022-07-22] MEDS: POTASSIUM CHLORIDE 20 MEQ TABLET.ER PO (10:03)
[2022-07-22] MEDS: MULTIVITAMINS THERAPEUTIC TAB (*BKC) 1 TABLET PO (10:03)
[2022-07-22] MEDS: allopurinoL 100 MG TABLET PO (10:03)
[2022-07-22] MEDS: TORSEMIDE 20 MG TABLET 40 MG PO ×2 (10:04→16:54)
[2022-07-22] MEDS: glipiZIDE 5 MG TABLET PO (10:04)
[2022-07-22] MEDS: PANTOPRAZOLE 40 MG TABLET BY MOUTH (10:04)
[2022-07-22] MEDS: TOLNAFTATE 1% POWDER 45 GM BTL 1 APPLIC TOPICAL ×2 (10:04→22:17)
[2022-07-22] MEDS: LOSARTAN POTASSIUM 25 MG TABLET PO (10:04)
[2022-07-22] MEDS: cefTRIAXone 2 GM in SODIUM CHLORIDE 0.9% IV 100 ML IVPB (10:15)
[2022-07-22 11:48] LABS: Glucose Point of Care 216 mg/dl (65-105)
--- NOTE | 2022-07-22 11:57 | PM.IMPN ---
Progress Note: A&P Assessment and Plan (1) Epididymitis: Code(s): N45.1 - Epididymitis Status: Acute (2) Acute UTI: Code(s): N39.0 - Urinary tract infection, site not specified Status: Acute (3) Diabetes type 2, controlled: Qualifiers: Diabetes mellitus buttermaker insulin use: without buttermaker use Diabetes mellitus complication status: without complication Qualified Code(s): E11.9 - Type 2 diabetes mellitus without complications Code(s): E11.9 - Type 2 diabetes mellitus without complications Status: Acute (4) Acute diastolic CHF (congestive heart failure): Code(s): I50.31 - Acute diastolic (congestive) heart failure Status: Acute (5) Morbid obesity: Code(s): E66.01 - Morbid (severe) obesity due to excess calories Status: Acute (6) Urinary retention with incomplete bladder emptying: Code(s): R33.9 - Retention of urine, unspecified Status: Acute Plan Urine cultures and sensitivity. Klebsiella pneumoniae Continue IV hydration. Monitor CBC CMP monitor for sepsis. Monitor vital signs antibiotics Rocephin Acute epididymitis urology on consult Will use Kurtz catheter due to urinary retention Monitor for obstructive uropathy and pyelonephritis HBA1c 7.7 ( goal <7.0%) , Renal functions, Liver panel every 3 months Monitor vitamin B12 levels Optimize ANTIONE-inhibitor and statin Routine glucose monitoring. Watch for Hypoglycemia. BMI goal < 25 Sliding scale insulin. Holding metformin due to lactic acidosis hyponatremia possibly secondary to fluid overload sodium 128. Potassium 3.2 Heart failure with preserved ejection fraction. EKG reviewed Chest x-ray reviewed Lipid panel, TSH,liver function test, TTE EF 60% 2021 History of sleep apnea On BiPAP at home Optimize Antione inhibitors and beta-blockers Daily weights Antiplatelet & Statin therapy Loop diuretics as indicate Patient educated about titrating diuretics at home based on weight blood pressure and symptoms. Optimize blood pressure < 130/80 Fall risk assessment Routine follow-up with the primary care physician and laboratory tester recommended Subjective Date/time seen: 07/22/22 11:57 Interval history: still complains of abdominal pain and groin pain groin itching and other concerns about his health Exam Narrative: GENERAL: Well appearing, well-nourished, non-toxic, in no acute distress. HEAD: Normocephalic, atraumatic. NECK: Supple. No adenopathy, no masses. RESPIRATORY: Airway patent, respirations nonlabored. Clear to auscultation bilaterally, no rales, rhonchi, wheezing. CARDIOVASCULAR: Regular rate and rhythm without murmurs, rubs, or gallops. Peripheral pulses 2+ and equal bilaterally. ABDOMINAL: Soft, tender, nondistended, no hepatosplenomegaly. Normoactive BS. MUSCULOSKELETAL: no Epigastric and no hypochondrial tenderness SKIN: Warm, dry, excoriation and rash in the groin around the testicle NEURO: A&O X3. Moves all extremities PSYCHIATRIC: Appropriate mood and affect. Normal interaction. Objective Data Vital Signs Vital Signs: Vital Signs - 24 hr 07/21/22 14:22 07/21/22 20:56 07/21/22 20:56 Temperature 36.2 C L Pulse Rate 68 67 Respiratory Rate 19 Blood Pressure 112/74 Pulse Oximetry 91 94 94 Oxygen Delivery Room Air CPAP 07/21/22 21:28 07/21/22 20:00 07/22/22 02:37 Temperature 36.6 C Pulse Rate 69 63 Respiratory Rate 18 Blood Pressure 109/49 L Pulse Oximetry 97 96 Oxygen Delivery Room Air Room Air 07/22/22 05:19 Temperature 36.3 C L Pulse Rate 60 Respiratory Rate 18 Blood Pressure 123/61 Pulse Oximetry 93 Oxygen Delivery Intake/Output Intake/Output: Intake & Output 07/19/22 07/20/22 07/21/22 07/22/22 23:59 23:59 23:59 23:59 Intake Total 1340 2250 2060 1002 Output Total 1000 4600 2400 1600 Balance 765 -9090 -340 -140 Meds/Results Medications: Active Medications Generic Name Dose Route Start L
[2022-07-22] MEDS: INSULIN ASPART (*BKC) 100 UNITS/ML SUB-Q ×2 (12:32→16:53)
[2022-07-22] MEDS: FLUCONAZOLE 150 MG TABLET PO (12:55)
[2022-07-22 14:00] VITALS: BP 119/54; PULSE 65; RESP 18; TEMP 35.6; O2SAT 95
[2022-07-22] MEDS: DEXTROSE 5%/0.45% SOD CHL 1,000 ML 75 ML IV CONT (14:44)
[2022-07-22 16:51] LABS: Glucose Point of Care 256 mg/dl (65-105)
[2022-07-22] MEDS: PRAMIPEXOLE 1 MG TABLET 2 MG BY MOUTH (16:54)
[2022-07-22 21:46] VITALS: BP 130/66; PULSE 69; RESP 18; TEMP 36.2; O2SAT 94
[2022-07-22] MEDS: ONDANSETRON INJ 4 MG/2 ML VIAL IV PUSH (22:12)
[2022-07-22] MEDS: SPIRONOLACTONE 25 MG TABLET PO (22:18)
[2022-07-22 22:33] LABS: Glucose Point of Care 185 mg/dl (65-105)
[2022-07-23] MEDS: DEXTROSE 5%/0.45% SOD CHL 1,000 ML 75 ML IV CONT (00:59)
[2022-07-23 06:00] VITALS: BP 116/47; PULSE 75; RESP 16; TEMP 36.2; O2SAT 91
[2022-07-23 07:56] LABS: Glucose Point of Care 208 mg/dl (65-105)
[2022-07-23] MEDS: oxyCODONE/ACETAMINOPHEN (*CRX) 5-325 MG TABLET 1 TABLET PO ×3 (08:44→20:42)
[2022-07-23] MEDS: cefTRIAXone 2 GM in SODIUM CHLORIDE 0.9% IV 100 ML 200 ML IVPB (08:45)
[2022-07-23] MEDS: POTASSIUM CHLORIDE 20 MEQ TABLET.ER PO (08:45)
[2022-07-23] MEDS: MULTIVITAMINS THERAPEUTIC TAB (*BKC) 1 TABLET PO (08:45)
[2022-07-23] MEDS: CHOLECALCIFEROL 1,000 UNITS TABLET 1000 UNITS PO (08:45)
[2022-07-23] MEDS: allopurinoL 100 MG TABLET PO (08:46)
[2022-07-23] MEDS: PRAMIPEXOLE 1 MG TABLET BY MOUTH (08:46)
[2022-07-23] MEDS: glipiZIDE 5 MG TABLET PO (08:46)
[2022-07-23] MEDS: LOSARTAN POTASSIUM 25 MG TABLET PO (08:46)
[2022-07-23] MEDS: TORSEMIDE 20 MG TABLET 40 MG PO ×2 (08:46→17:15)
[2022-07-23] MEDS: TOLNAFTATE 1% POWDER 45 GM BTL 1 APPLIC TOPICAL ×2 (08:46→20:43)
[2022-07-23] MEDS: PANTOPRAZOLE 40 MG TABLET BY MOUTH (08:46)
[2022-07-23] MEDS: INSULIN ASPART (*BKC) 100 UNITS/ML SUB-Q (08:47)
[2022-07-23] MEDS: FLUTICASONE/SALMETEROL 115-21 MCG INHALER 1 PUFF 2 PUFF INHALATION ×2 (09:50→22:30)
[2022-07-23 11:41] LABS: Glucose Point of Care 180 mg/dl (65-105)
--- NOTE | 2022-07-23 12:41 | PM.IMPN ---
Progress Note: A&P Assessment and Plan (1) Epididymitis: Code(s): N45.1 - Epididymitis Status: Acute (2) Acute UTI: Code(s): N39.0 - Urinary tract infection, site not specified Status: Acute (3) Diabetes type 2, controlled: Qualifiers: Diabetes mellitus lobsterman insulin use: without lobsterman use Diabetes mellitus complication status: without complication Qualified Code(s): E11.9 - Type 2 diabetes mellitus without complications Code(s): E11.9 - Type 2 diabetes mellitus without complications Status: Acute (4) Acute diastolic CHF (congestive heart failure): Code(s): I50.31 - Acute diastolic (congestive) heart failure Status: Acute (5) Morbid obesity: Code(s): E66.01 - Morbid (severe) obesity due to excess calories Status: Acute (6) Urinary retention with incomplete bladder emptying: Code(s): R33.9 - Retention of urine, unspecified Status: Acute Plan Urine cultures and sensitivity. Klebsiella pneumoniae Continue IV hydration. Monitor CBC CMP monitor for sepsis. Monitor vital signs antibiotics Rocephin Acute epididymitis urology on consult Will use Kurtz catheter due to urinary retention Monitor for obstructive uropathy and pyelonephritis Patient needs barium enema to follow-up for the ileus on KUB HBA1c 7.7 ( goal <7.0%) , Renal functions, Liver panel every 3 months Monitor vitamin B12 levels Optimize ANTIONE-inhibitor and statin Routine glucose monitoring. Watch for Hypoglycemia. BMI goal < 25 Sliding scale insulin. Holding metformin due to lactic acidosis hyponatremia possibly secondary to fluid overload sodium 128. Potassium 3.2 Heart failure with preserved ejection fraction. EKG reviewed Chest x-ray reviewed TTE EF 60% 2021 History of sleep apnea On BiPAP at home Optimize Antione inhibitors and beta-blockers Daily weights Antiplatelet & Statin therapy Loop diuretics as indicate Patient educated about titrating diuretics at home based on weight blood pressure and symptoms. Optimize blood pressure < 130/80 Fall risk assessment Routine follow-up with the primary care physician and box sealing machine catcher recommended Subjective Date/time seen: 07/23/22 12:41 Interval history: Patient feels a lot better still feels little distended no bowel movement yet Exam Narrative: Insert GENERAL: Well appearing, well-nourished, non-toxic, in no acute distress. HEAD: Normocephalic, atraumatic. NECK: Supple. No adenopathy, no masses. RESPIRATORY: Airway patent, respirations nonlabored. Clear to auscultation bilaterally, no rales, rhonchi, wheezing. CARDIOVASCULAR: Regular rate and rhythm without murmurs, rubs, or gallops. Peripheral pulses 2+ and equal bilaterally. ABDOMINAL: Soft, nontender, nondistended, no hepatosplenomegaly. Normoactive BS. MUSCULOSKELETAL: no Epigastric and no hypochondrial tenderness SKIN: Warm, dry, normal color. No rashes. NEURO: A&O X3. Moves all extremities PSYCHIATRIC: Appropriate mood and affect. Normal interaction. Objective Data Vital Signs Vital Signs: Vital Signs - 24 hr 07/22/22 14:00 07/22/22 21:46 07/23/22 06:00 Temperature 35.6 C L 36.2 C L 36.2 C L Pulse Rate 65 69 75 Respiratory Rate 18 18 16 Blood Pressure 119/54 L 130/66 116/47 L Pulse Oximetry 95 94 91 Oxygen Delivery 07/23/22 08:45 Temperature Pulse Rate Respiratory Rate Blood Pressure Pulse Oximetry Oxygen Delivery Room Air Intake/Output Intake/Output: Intake & Output 07/20/22 07/21/22 07/22/22 07/23/22 23:59 23:59 23:59 23:59 Intake Total 2250 2060 1502 1000 Output Total 4600 2400 3200 1800 Balance -2350 -340 -1698 -800 Meds/Results Medications: Active Medications Generic Name Dose Route Start Last Admin Trade Name Freq PRN Reason Stop Dose Admin Acetaminophen 650 mg 07/19/22 09:54 07/19/22 15:15 Acetaminophen 325 Mg Tablet PO 650 mg Q4H PRN Administration Mild Pain (1-3) or Fev
--- NOTE | 2022-07-23 12:49 | PM.CNGS ---
Assessment and Plan Assessment and plan (1) Abdominal pain: Qualifiers: Abdominal location: lower abdomen, unspecified Qualified Code(s): R10.30 - Lower abdominal pain, unspecified Code(s): R10.9 - Unspecified abdominal pain Status: Acute Assessment and Plan: Etiology of abdominal pain is unclear. Nothing on CT scan of the abdomen and pelvis yesterday to explain it. Possibly related to his epididymitis an UTI. These were his presenting problem. Colonic dilatation could cause this but it does not seem to be so dilated as to be a source of pain. Patient has seen Dr. Gallegos in the past. May wish to ask him to see in consultation at this time. (2) Abnormal abdominal x-ray: Code(s): R93.5 - Abnormal findings on diagnostic imaging of other abdominal regions, including retroperitoneum Status: Acute Assessment and Plan: Plain film of the abdomen followed by CT scan of the abdomen pelvis shows transverse colon dilatation as well as stool filled ascending colon and ascending colon dilatation. Obstructive colonic lesion not ruled out on CT scan. Will get a Hypaque enema today. If this is negative, patient most likely has colonic ileus. Recommend GI evaluation and treatment. (3) Constipation: Code(s): K59.00 - Constipation, unspecified Status: Chronic Assessment and Plan: Takes Linzess and Metamucil regularly. Also sometimes takes MiraLax. Recommend GI consultation unless obstructing lesion found that would require surgery. Patient did have a negative colonoscopy last December per Dr. Gallegos. (4) Morbid obesity: Code(s): E66.01 - Morbid (severe) obesity due to excess calories Status: Chronic (5) Family hx of colon cancer: Code(s): Z80.0 - Family history of malignant neoplasm of digestive organs Status: Chronic Assessment and Plan: Colonoscopy negative last December (6) Acute UTI: Code(s): N39.0 - Urinary tract infection, site not specified Status: Acute Assessment and Plan: Patient has history of drug-resistant Klebsiella urinary tract infections. (7) Epididymitis: Code(s): N45.1 - Epididymitis Status: Acute Assessment and Plan: Diagnosed by Urology who saw him 07/19/2022. History of Present Illness Consult details Consult date: 07/23/22 Reason for consult: abdominal pain Requesting physician: Rafa Ramirez MD Narrative: Patient is a 67-year-old man who was admitted on Sunday07/19/2022 with left scrotal pain and evidence of epididymitis and possibly infected hydrocele. He has a history of multiple E recurrent urinary tract infections and did have a suprapubic catheter for a while. He also has a history of drug-resistant Klebsiella urinary tract infections. He is morbidly obese and has insulin-dependent diabetes with a history of chronic constipation. He report states that he has also been having abdominal pain that starts in the hypogastrium and goes down to his pubis. He relates this starting the day before his admission, Sunday07/18/2022, and persisting throughout the admission. He reports he has been unable to eat and has nausea. Review of his intake and output shows 1500 cc or more intake each of the last 3 days. Patient also reports he has not had a bowel movement in the last 5 days. He had a plain film of the abdomen yesterday which showed dilated transverse colon and possible ileus. I was asked to see the patient in consultation regarding his abnormal KUB and his complaints of abdominal pain. I ordered a CT scan yesterday when consulted. This showed a lot of stool in the ascending colon. The ascending and transverse colon were both quite distended but no definite obstruction was noted. Impression was either ileus or colonic obstruction. Looking at previous records, patient had a colonoscopy last December. This was negative. Dr. Gallegos's preprocedure history and exam relates that the patient has
[2022-07-23 14:00] VITALS: BP 104/55; PULSE 59; RESP 20; TEMP 36.2; O2SAT 95
[2022-07-23 15:02] LABS: Hematocrit 39.9 % (42.0-52.0); Hemoglobin 12.8 g/dL (14.0-18.0); Mean Corpuscular HGB Conc 32.1 g/dl (32-36); Mean Corpuscular Hemoglobin 28.5 pg (26-34); Mean Corpuscular Volume 88.9 fl (80-100); Mean Platelet Volume 10.5 fl (7.4-10.4); Platelet Count Result 242 k/mm3 (150-375); Red Blood Count 4.49 M/mm3 (4.6-6.20); Red Cell Distribution Width 15.3 % (11.5-14.5); White Blood Count 6.8 K/mm3 (4.5-10.0)
[2022-07-23 15:12] LABS: Alanine Aminotransferase 41 U/L (6-50); Albumin Level 3.5 g/dL (3.5-5.1); Alkaline Phosphatase 277 U/L (38-126); Anion Gap 6 mmol/L (8-16); Aspartate Amino Transferase 19 U/L (17-59); Bilirubin,Total 0.5 mg/dL (0.2-1.3); Blood Urea Nitrogen 14 mg/dL (9-20); Calcium 8.4 mg/dL (8.4-10.2); Carbon Dioxide 34 mmol/L (22-30); Chloride 98 mmol/L (98-107); Estimated CRCL calculation 102 ml/min; Estimated Glomerular Filt Rate > 60; Glucose 173 mg/dL (65-110); Potassium 3.6 mmol/L (3.4-5.0); Sodium 138 mmol/L (137-145)
[2022-07-23 16:43] LABS: Glucose Point of Care 177 mg/dl (65-105)
[2022-07-23] MEDS: PRAMIPEXOLE 1 MG TABLET 2 MG BY MOUTH (17:15)
[2022-07-23] MEDS: SPIRONOLACTONE 25 MG TABLET PO (20:43)
[2022-07-23 21:10] VITALS: BP 114/52; PULSE 68; RESP 18; TEMP 36.5; O2SAT 95
[2022-07-23 21:54] LABS: Glucose Point of Care 173 mg/dl (65-105)
[2022-07-23 22:32] VITALS: PULSE 68; O2SAT 94
[2022-07-24] MEDS: WATER FOR IRRIGATION, STERILE 1,000 ML BOTTLE 1000 ML (00:01)
[2022-07-24 05:25] VITALS: BP 127/72; PULSE 60; RESP 18; TEMP 36.9; O2SAT 98
[2022-07-24] MEDS: LINACLOTIDE 145 MCG CAPSULE 290 MCG PO (05:39)
--- NOTE | 2022-07-24 06:18 | PC.NURSE ---
Patient resting throughout night with cpap in place and compliant with all cares. VSS and patient reports passing gas and no nausea or pain at this time after medicated at bedtime. Patient condition otherwise has remained stable and unchanged.
[2022-07-24 08:23] LABS: Glucose Point of Care 174 mg/dl (65-105)
--- NOTE | 2022-07-24 08:32 | WPDGICN ---
Assessment and Plan Assessment and plan (1) Abnormal abdominal x-ray: Code(s): R93.5 - Abnormal findings on diagnostic imaging of other abdominal regions, including retroperitoneum Status: Acute Assessment and Plan: Patient with CT scan and lower GI suggesting fecal impaction near the splenic flexure. No obstruction noted on colonoscopy several months ago. Plan to give additional enemas. Dulcolax suppositories will be implemented. give a trial of Reglan. Follow with obstructive series x-rays. (2) Fecal impaction of colon: Code(s): K56.41 - Fecal impaction Status: Acute Assessment and Plan: Patient appears to have an impaction near the splenic flexure of the colon. Some improvement after Gastrografin lower GI but continue laxatives and enemas required. (3) Constipation: Code(s): K59.00 - Constipation, unspecified Status: Acute Assessment and Plan: Patient had begun to get improvement with Linzess prior to this admission will continue Linzess after discharge. (4) Family hx of colon cancer: Code(s): Z80.0 - Family history of malignant neoplasm of digestive organs Status: Chronic Assessment and Plan: Most recent colonoscopy in December of 2021. Plan for follow-up colonoscopy in 3 years. (5) Morbid obesity: Code(s): E66.01 - Morbid (severe) obesity due to excess calories Status: Chronic (6) Acute UTI: Code(s): N39.0 - Urinary tract infection, site not specified Status: Acute (7) Epididymitis: Code(s): N45.1 - Epididymitis Status: Acute GI Consult Note Consult date/time: 07/24/22 08:32 Reason for consult: Constipation and fecal impaction. HPI: Rah Greco is a 67 year old male I am asked to see for fecal impaction. Patient admitted the hospital on 07/19/2022. He had had significant abdominal pain. Was found to have urinary tract infection and kidney stones. A CT scan revealed the patient had fecal impaction at the splenic flexure. Initially noted to have dilated transverse and ascending colon on CT scan. Gastrografin lower GI revealed apparent fecal passed impaction at the splenic flexure. Patient reports that he has had constipation for quite some time. Recently obtain relief with Linzess. But has had abdominal pain and difficulties over the last 1-2 weeks. Colonoscopy performed in December revealed no obstruction in this area. He did have evidence of recent polyp removal from the ascending colon. Patient did have bowel movements after Gastrografin lower GI but continues to have abdominal pain today. Review of Systems Review of Systems: Review of systems noncontributory. [facility] Past Medical History Medical History (Updated 07/24/22 @ 09:00 by Chaz Galelgos MD) Adrenal adenoma stable on imaging since 2017 Benign prostatic hyperplasia (BPH) with urinary urge incontinence the patient is in test debating a bladder stimulator placement March [address] Sargent Bilateral cataracts maturing BMI 40.0-44.9, adult BMI greater than 40 Brugada syndrome C. 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
[2022-07-24] MEDS: cefTRIAXone 2 GM in SODIUM CHLORIDE 0.9% IV 100 ML 200 ML IVPB (08:36)
[2022-07-24] MEDS: oxyCODONE/ACETAMINOPHEN (*CRX) 5-325 MG TABLET 1 TABLET PO ×3 (08:36→20:48)
[2022-07-24] MEDS: LOSARTAN POTASSIUM 25 MG TABLET PO (08:37)
[2022-07-24] MEDS: TORSEMIDE 20 MG TABLET 40 MG PO ×2 (08:37→18:17)
[2022-07-24] MEDS: MULTIVITAMINS THERAPEUTIC TAB (*BKC) 1 TABLET PO (08:37)
[2022-07-24] MEDS: CHOLECALCIFEROL 1,000 UNITS TABLET 1000 UNITS PO (08:37)
[2022-07-24] MEDS: PRAMIPEXOLE 1 MG TABLET BY MOUTH (08:37)
[2022-07-24] MEDS: POTASSIUM CHLORIDE 20 MEQ TABLET.ER PO (08:37)
[2022-07-24] MEDS: PANTOPRAZOLE 40 MG TABLET BY MOUTH (08:37)
[2022-07-24] MEDS: TOLNAFTATE 1% POWDER 45 GM BTL 1 APPLIC TOPICAL ×2 (08:37→20:54)
[2022-07-24] MEDS: allopurinoL 100 MG TABLET PO (08:38)
[2022-07-24] MEDS: glipiZIDE 5 MG TABLET PO (08:38)
[2022-07-24] MEDS: FLUTICASONE/SALMETEROL 115-21 MCG INHALER 1 PUFF 2 PUFF INHALATION ×2 (09:12→22:33)
[2022-07-24 09:15] VITALS: PULSE 61; RESP 18
[2022-07-24] MEDS: BISACODYL 10 MG SUPPOSITORY RECTAL (09:35)
[2022-07-24] MEDS: METOCLOPRAMIDE HCL INJ 10 MG/2 ML VIAL IV PUSH ×2 (11:46→18:17)
[2022-07-24 12:01] LABS: Glucose Point of Care 181 mg/dl (65-105)
[2022-07-24 12:01] LABS: Hematocrit 39.9 % (42.0-52.0); Mean Corpuscular HGB Conc 32.6 g/dl (32-36); Mean Corpuscular Hemoglobin 28.1 pg (26-34); Mean Corpuscular Volume 86.4 fl (80-100); Mean Platelet Volume 10.4 fl (7.4-10.4); Platelet Count Result 253 k/mm3 (150-375); Red Blood Count 4.62 M/mm3 (4.6-6.20); White Blood Count 7.1 K/mm3 (4.5-10.0)
[2022-07-24 12:10] LABS: Alanine Aminotransferase 37 U/L (6-50); Albumin Level 3.6 g/dL (3.5-5.1); Alkaline Phosphatase 265 U/L (38-126); Anion Gap 7 mmol/L (8-16); Aspartate Amino Transferase 26 U/L (17-59); Bilirubin,Total 0.5 mg/dL (0.2-1.3); Blood Urea Nitrogen 13 mg/dL (9-20); Calcium 8.6 mg/dL (8.4-10.2); Carbon Dioxide 31 mmol/L (22-30); Chloride 97 mmol/L (98-107); Estimated CRCL calculation 116 ml/min; Estimated Glomerular Filt Rate > 60; Glucose 190 mg/dL (65-110); Potassium 3.3 mmol/L (3.4-5.0); Sodium 135 mmol/L (137-145)
--- NOTE | 2022-07-24 13:45 | PM.IMPN ---
Progress Note: A&P Assessment and Plan (1) Epididymitis: Code(s): N45.1 - Epididymitis Status: Acute Assessment and Plan: Urine cultures and sensitivity. Klebsiella pneumoniae Monitor CBC CMP monitor for sepsis. Monitor vital signs antibiotics Rocephin day 5 (2) Acute UTI: Code(s): N39.0 - Urinary tract infection, site not specified Status: Acute Assessment and Plan: Urine cultures and sensitivity. Klebsiella pneumoniae Monitor CBC CMP monitor for sepsis. Monitor vital signs antibiotics Rocephin day 5 Acute epididymitis urology on consult (3) Diabetes type 2, controlled: Qualifiers: Diabetes mellitus usp insulin use: without usp use Diabetes mellitus complication status: without complication Qualified Code(s): E11.9 - Type 2 diabetes mellitus without complications Code(s): E11.9 - Type 2 diabetes mellitus without complications Status: Acute Assessment and Plan: HBA1c 7.7 ( goal <7.0%) , Renal functions, Liver panel every 3 months Monitor vitamin B12 levels Optimize SHAZIA-inhibitor and statin Routine glucose monitoring. Watch for Hypoglycemia. BMI goal < 25 Sliding scale insulin. (4) Acute diastolic CHF (congestive heart failure): Code(s): I50.31 - Acute diastolic (congestive) heart failure Status: Acute Assessment and Plan: Heart failure with preserved ejection fraction. EKG reviewed Chest x-ray reviewed TTE EF 60% 2021 (5) Morbid obesity: Code(s): E66.01 - Morbid (severe) obesity due to excess calories Status: Chronic (6) Urinary retention with incomplete bladder emptying: Code(s): R33.9 - Retention of urine, unspecified Status: Acute Assessment and Plan: Morales catheter due to urinary retention for obstructive uropathy and pyelonephritis Plan to Dc morales catheter today Subjective Date/time seen: 07/24/22 13:45 Interval history: 67-year-old male patient who follows with Dr. Schmidt.? The patient has a history of recurrent UTIs.? He has also a partial prostatectomy.? The patient recently had a chronic indwelling suprapubic catheter which was removed last month.? This past month the patient was hospitalized for UTI for drug resistant Klebsiella in his urine.Pt has been admitted with epididymitis and infected scrotum, Pt also kub shows ileus. pt is receiving enemas for fecal impaction. Pt has a morales in situ. Pt had kub and braium enema Contrast passes to the splenic flexure of the colon where there is stool. The transverse and ascending colon are distended, but not opacified by contrast. Hopefully this exam will relieve the stool impaction in the splenic flexure. Therapeutic enemas are recommended given the stercoral colitis in the hepatic flexure of the colon suggested by CT. Review of Systems Review of Systems: All systems reviewed & are unremarkable except as noted in HPI and below Exam Narrative: Insert GENERAL: Well appearing, well-nourished NECK: Supple. No adenopathy, no masses. RESPIRATORY: Clear to auscultation bilaterally, no rales, rhonchi, wheezing. CARDIOVASCULAR: Regular rate and rhythm without murmurs, rubs, or gallops. ABDOMINAL: Soft, nontender, nondistended, no hepatosplenomegaly. Normoactive BS. MUSCULOSKELETAL: no Epigastric and no hypochondrial tenderness SKIN: Warm, dry, normal color. No rashes. NEURO: A&O X3. Moves all extremities PSYCHIATRIC: Appropriate mood and affect. Normal interaction. Objective Data Vital Signs Vital Signs: Vital Signs - 24 hr 07/23/22 14:00 07/23/22 21:10 07/23/22 22:32 Temperature 36.2 C L 36.5 C Pulse Rate 59 L 68 Respiratory Rate 20 18 Blood Pressure 104/55 L 114/52 L Pulse Oximetry 95 95 94 Oxygen Delivery CPAP 07/23/22 22:32 07/24/22 05:25 07/24/22 09:15 Temperature 36.9 C Pulse Rate 68 60 61 Respiratory Rate 18 18 Blood Pressure 127/72 Pulse Oximetry 94 98 Oxygen Delivery
[2022-07-24 13:54] VITALS: BP 119/50; PULSE 64; RESP 16; TEMP 36.2; O2SAT 95
[2022-07-24 17:07] LABS: Glucose Point of Care 151 mg/dl (65-105)
[2022-07-24] MEDS: PRAMIPEXOLE 1 MG TABLET 2 MG BY MOUTH (18:17)
[2022-07-24] MEDS: SPIRONOLACTONE 25 MG TABLET PO (20:48)
[2022-07-24 21:02] LABS: Glucose Point of Care 194 mg/dl (65-105)
[2022-07-24 22:00] VITALS: BP 117/61; PULSE 64; RESP 18; TEMP 36.4; O2SAT 94
[2022-07-24 22:33] VITALS: PULSE 71; O2SAT 94
[2022-07-25] VITALS (7 sets, daily range): BP systolic 114–123; BP diastolic 52–65; PULSE 59–77; RESP 14–18; TEMP 36.1–36.7; O2SAT 91–95
[2022-07-25] MEDS: METOCLOPRAMIDE HCL INJ 10 MG/2 ML VIAL IV PUSH ×5 (00:02→23:29)
[2022-07-25] MEDS: ACETAMINOPHEN 325 MG TABLET 650 MG PO (03:26)
[2022-07-25] MEDS: oxyCODONE/ACETAMINOPHEN (*CRX) 5-325 MG TABLET 1 TABLET PO ×3 (03:26→20:28)
[2022-07-25] MEDS: ONDANSETRON INJ 4 MG/2 ML VIAL IV PUSH (03:27)
[2022-07-25] MEDS: LINACLOTIDE 145 MCG CAPSULE 290 MCG PO (06:35)
[2022-07-25 07:58] LABS: Glucose Point of Care 154 mg/dl (65-105)
[2022-07-25 08:16] LABS: Hematocrit 41.8 % (42.0-52.0); Hemoglobin 13.6 g/dL (14.0-18.0); Mean Corpuscular HGB Conc 32.5 g/dl (32-36); Mean Corpuscular Hemoglobin 28.3 pg (26-34); Mean Corpuscular Volume 86.9 fl (80-100); Mean Platelet Volume 11.8 fl (7.4-10.4); Platelet Count Result 231 k/mm3 (150-375); Red Blood Count 4.81 M/mm3 (4.6-6.20); Red Cell Distribution Width 14.8 % (11.5-14.5); White Blood Count 7.6 K/mm3 (4.5-10.0)
[2022-07-25 08:21] LABS: Anion Gap 7 mmol/L (8-16); Blood Urea Nitrogen 13 mg/dL (9-20); Carbon Dioxide 35 mmol/L (22-30); Chloride 95 mmol/L (98-107); Estimated CRCL calculation 102 ml/min; Estimated Glomerular Filt Rate > 60; Glucose 167 mg/dL (65-110); Potassium 3.1 mmol/L (3.4-5.0); Sodium 137 mmol/L (137-145)
[2022-07-25] MEDS: cefTRIAXone 2 GM in SODIUM CHLORIDE 0.9% IV 100 ML 200 ML IVPB (08:35)
[2022-07-25] MEDS: TOLNAFTATE 1% POWDER 45 GM BTL 1 APPLIC TOPICAL ×2 (08:45→20:29)
[2022-07-25] MEDS: allopurinoL 100 MG TABLET PO (08:46)
[2022-07-25] MEDS: POTASSIUM CHLORIDE 20 MEQ TABLET.ER PO (08:47)
[2022-07-25] MEDS: PANTOPRAZOLE 40 MG TABLET BY MOUTH (08:47)
[2022-07-25] MEDS: TORSEMIDE 20 MG TABLET 40 MG PO ×2 (08:47→17:23)
[2022-07-25] MEDS: glipiZIDE 5 MG TABLET PO (08:47)
[2022-07-25] MEDS: MULTIVITAMINS THERAPEUTIC TAB (*BKC) 1 TABLET PO (08:47)
[2022-07-25] MEDS: CHOLECALCIFEROL 1,000 UNITS TABLET 1000 UNITS PO (08:47)
[2022-07-25] MEDS: PRAMIPEXOLE 1 MG TABLET BY MOUTH (08:47)
[2022-07-25] MEDS: LOSARTAN POTASSIUM 25 MG TABLET PO (08:47)
[2022-07-25] MEDS: FLUTICASONE/SALMETEROL 115-21 MCG INHALER 1 PUFF 2 PUFF INHALATION ×2 (09:58→21:36)
--- NOTE | 2022-07-25 10:21 | WPDGIPROGNO ---
Progress Note: A&P Assessment and Plan (1) Constipation: Code(s): K59.00 - Constipation, unspecified Status: Acute Assessment and Plan: Patient with longstanding constipation admitted with apparent fecal impaction. Plan to continue laxatives and enemas. Will continue Reglan briefly. Narcotic should be discontinued as this likely contributes to his constipation. (2) Fecal impaction of colon: Code(s): K56.41 - Fecal impaction Status: Acute Assessment and Plan: X-ray imaging suggest impaction at the splenic flexure. Will continue enemas and promotility agents to wear certain this is relieved. Follow-up obstructive series to monitor. May need follow-up Gastrografin lower GI if we can not be sure this is relieved in the next day or 2. (3) Morbid obesity: Code(s): E66.01 - Morbid (severe) obesity due to excess calories Status: Chronic (4) Acute UTI: Code(s): N39.0 - Urinary tract infection, site not specified Status: Acute Assessment and Plan: urology following (5) Hydrocele in adult: Code(s): N43.3 - Hydrocele, unspecified Status: Acute Assessment and Plan: Urology following Subjective Date/time seen: 07/25/22 10:21 Interval history: Patient continues to complain of upper abdominal discomfort. Reports liquid stool. Denies any bleeding. No fever. Review of Systems Review of Systems: Review of systems noncontributory. Exam Narrative: Physical exam reveals patient to be alert. He is anicteric. Vital signs stable. HEENT exam reveals no icterus. Lungs are clear. Heart without murmur. Abdomen is obese. Bowel sounds are present soft he notes discomfort on palpation the upper abdomen. Objective Data Vital Signs Vital Signs: Vital Signs - 24 hr 07/24/22 13:54 07/24/22 22:00 07/24/22 22:33 Temperature 97.1 F L 97.5 F L Pulse Rate 64 64 Respiratory Rate 16 18 Blood Pressure 119/50 L 117/61 Pulse Oximetry 95 94 94 Oxygen Delivery CPAP Fraction of Inspired Oxygen 21 07/24/22 22:33 07/25/22 03:20 07/25/22 05:20 Temperature 98.0 F Pulse Rate 71 69 59 L Respiratory Rate 18 Blood Pressure 123/61 Pulse Oximetry 94 95 95 Oxygen Delivery CPAP CPAP Fraction of Inspired Oxygen 07/25/22 09:59 Temperature Pulse Rate Respiratory Rate Blood Pressure Pulse Oximetry 95 Oxygen Delivery Room Air Fraction of Inspired Oxygen Intake/Output Intake/Output: Intake & Output 07/22/22 07/23/22 07/24/22 07/25/22 23:59 23:59 23:59 23:59 Intake Total 1502 1580 2740 1100 Output Total 3200 3200 2350 Balance -1698 -6914 696 3992 Meds/Results Medications: Active Medications Generic Name Dose Route Start Last Admin Trade Name Freq PRN Reason Stop Dose Admin Acetaminophen 650 mg 07/19/22 09:54 07/25/22 03:26 Acetaminophen 325 Mg Tablet PO 650 mg Q4H PRN Administration Mild Pain (1-3) or Fever Hydrocodone Bitart/Acetaminophen 1 tab 07/20/22 11:06 Hydrocodone/Acetaminophen (*Crx) 5-325 Mg Tablet PO Q4H PRN Pain Rated 4-6 Albuterol 2 puff 07/19/22 14:37 Albuterol Sulfate (*Sp) Aerosol 1 Puff INHALATION PRN PRN shortness of breath Allopurinol 100 mg 07/20/22 09:00 07/25/22 08:46 Allopurinol 100 Mg Tablet PO 100 mg DAILY JARED Administration Dextrose 12.5 gm 07/19/22 14:01 Dextrose 50% 25 Gm/50 Ml Syringe IV PUSH PRN PRN Hypoglycemia Protocol Docusate Sodium 100 mg 07/21/22 17:40 07/21/22 18:20 Docusate Sodium 100 Mg Capsule PO 100 mg Q12H PRN Administration Constipation Glipizide 5 mg 07/20/22 09:00 07/25/22 08:47 Glipizide 5 Mg Tablet PO 5 mg DAILY JARED Administration Glucagon 1 mg 07/19/22 14:01 Glucagon For Inj 1 Mg Vial IM PRN PRN Hypoglycemia Protocol Glucose 15 gm 07/19/22 14:01 Glucose Oral Gel 15 Gm Of Glucse In 37.5 Gm Tube PO P
--- NOTE | 2022-07-25 10:33 | PCNWS ---
Weekly nutritional screen. Patient is tolerating current diabetic diet with adequate intake 50-100%. No weight loss reported. No nutritional needs at this time.
[2022-07-25 11:47] LABS: Glucose Point of Care 215 mg/dl (65-105)
[2022-07-25] MEDS: INSULIN ASPART (*BKC) 100 UNITS/ML SUB-Q (12:07)
--- NOTE | 2022-07-25 12:51 | PM.IMPN ---
Progress Note: A&P Assessment and Plan (1) Epididymitis: Code(s): N45.1 - Epididymitis Status: Acute Assessment and Plan: Urine cultures and sensitivity. Klebsiella pneumoniae pt receiving iv antibiotics Rocephin day 6 (2) Acute UTI: Code(s): N39.0 - Urinary tract infection, site not specified Status: Acute Assessment and Plan: Urine cultures and sensitivity. Klebsiella pneumoniae Pt receiving iv antibiotics Rocephin day 6 Acute epididymitis urology on consult (3) Diabetes type 2, controlled: Qualifiers: Diabetes mellitus buttermaker continuous churn insulin use: without mcc use Diabetes mellitus complication status: without complication Qualified Code(s): E11.9 - Type 2 diabetes mellitus without complications Code(s): E11.9 - Type 2 diabetes mellitus without complications Status: Acute Assessment and Plan: HBA1c 7.7 ( goal <7.0%) , Renal functions, Liver panel every 3 months Monitor vitamin B12 levels Optimize SHAZIA-inhibitor and statin Routine glucose monitoring. Watch for Hypoglycemia. BMI goal < 25 Sliding scale insulin. (4) Acute diastolic CHF (congestive heart failure): Code(s): I50.31 - Acute diastolic (congestive) heart failure Status: Acute Assessment and Plan: Heart failure with preserved ejection fraction. EKG reviewed Chest x-ray reviewed TTE EF 60% 2021 (5) Morbid obesity: Code(s): E66.01 - Morbid (severe) obesity due to excess calories Status: Chronic (6) Urinary retention with incomplete bladder emptying: Code(s): R33.9 - Retention of urine, unspecified Status: Acute Assessment and Plan: Morales catheter due to urinary retention for obstructive uropathy and pyelonephritis Pt has purewick catheter (7) Fecal impaction of colon: Code(s): K56.41 - Fecal impaction Status: Acute Assessment and Plan: pt can some response to enema last evening continue laxatives today Pt had kub and barium enema Contrast passes to the splenic flexure of the colon where there is stool. The transverse and ascending colon are distended, but not opacified by contrast. Hopefully this exam will relieve the stool impaction in the splenic flexure. Therapeutic enemas are recommended given the stercoral colitis in the hepatic flexure of the colon suggested by CT. GI and Surgery rounding Subjective Date/time seen: 07/25/22 12:51 Interval history: 67-year-old male patient who follows with Dr. Schmidt.? The patient has a history of recurrent UTIs.? He has also a partial prostatectomy.? The patient recently had a chronic indwelling suprapubic catheter which was removed last month.? This past month the patient was hospitalized for UTI for drug resistant Klebsiella in his urine.Pt has been admitted with epididymitis and infected scrotum, Pt also kub shows ileus. pt is receiving enemas for fecal impaction. Pt has a morales in situ. Pt had morales catheter removed pt has purewick catheter insitu Pt had some response after enema last night Review of Systems Review of Systems: Scrotal pain and swelling ongoing Exam Narrative: Insert GENERAL: Well appearing, well-nourished NECK: Supple. No adenopathy, no masses. RESPIRATORY: Clear to auscultation bilaterally, no rales, rhonchi, wheezing. CARDIOVASCULAR: Regular rate and rhythm without murmurs, rubs, or gallops. ABDOMINAL: Soft, nontender, nondistended, no hepatosplenomegaly. Normoactive BS. MUSCULOSKELETAL: no Epigastric and no hypochondrial tenderness SKIN: Warm, dry, normal color. No rashes. NEURO: A&O X3. Moves all extremities PSYCHIATRIC: Appropriate mood and affect. Normal interaction. Objective Data Vital Signs Vital Signs: Vital Signs - 24 hr 07/24/22 13:54 07/24/22 22:00 07/24/22 22:33 Temperature 36.2 C L 36.4 C L Pulse Rate 64 64 Respiratory Rate 16 18 Blood Pressure 119/50 L 117/61 Pulse Oximetry 95 94 94 Oxygen Delivery
[2022-07-25 16:40] LABS: Glucose Point of Care 150 mg/dl (65-105)
[2022-07-25] MEDS: PRAMIPEXOLE 1 MG TABLET 2 MG BY MOUTH (17:23)
[2022-07-25] MEDS: SPIRONOLACTONE 25 MG TABLET PO (20:28)
[2022-07-25] MEDS: SENNA/DOCUSATE SODIUM TABLET 1 TAB PO (20:28)
[2022-07-25 22:00] LABS: Glucose Point of Care 185 mg/dl (65-105)
[2022-07-26] VITALS (7 sets, daily range): BP systolic 109–132; BP diastolic 45–78; PULSE 52–101; RESP 14–20; TEMP 36.1–37.2; O2SAT 93–96
[2022-07-26] MEDS: METOCLOPRAMIDE HCL INJ 10 MG/2 ML VIAL IV PUSH ×4 (05:33→23:07)
[2022-07-26] MEDS: LINACLOTIDE 145 MCG CAPSULE 290 MCG PO (05:33)
[2022-07-26] MEDS: oxyCODONE/ACETAMINOPHEN (*CRX) 5-325 MG TABLET 1 TABLET PO ×2 (05:42→20:27)
[2022-07-26 06:45] LABS: Anion Gap 8 mmol/L (8-16); Blood Urea Nitrogen 17 mg/dL (9-20); Calcium 8.7 mg/dL (8.4-10.2); Carbon Dioxide 32 mmol/L (22-30); Chloride 96 mmol/L (98-107); Estimated CRCL calculation 102 ml/min; Estimated Glomerular Filt Rate > 60; Glucose 173 mg/dL (65-110); Potassium 3.1 mmol/L (3.4-5.0); Sodium 136 mmol/L (137-145)
--- NOTE | 2022-07-26 07:45 | WPDGIPROGNO ---
Progress Note: A&P Assessment and Plan (1) Constipation: Code(s): K59.00 - Constipation, unspecified Status: Acute Assessment and Plan: Patient admitted with apparent fecal impaction and constipation. Obstructive series yesterday revealed some stool in the hepatic flexure but no obstruction by air gas pattern. Plan to continue daily Linzess. Supplement with additional enemas and laxatives if needed. Advance diet as tolerated. (2) Epididymitis: Code(s): N45.1 - Epididymitis Status: Acute Assessment and Plan: Swollen left scrotum an urinary tract infection treated by primary care service present. (3) Diabetes type 2, controlled: Qualifiers: Diabetes mellitus long term care pharmacist insulin use: without long term care pharmacist use Diabetes mellitus complication status: without complication Qualified Code(s): E11.9 - Type 2 diabetes mellitus without complications Code(s): E11.9 - Type 2 diabetes mellitus without complications Status: Acute (4) Morbid (severe) obesity due to excess calories: Code(s): E66.01 - Morbid (severe) obesity due to excess calories Status: Acute Assessment and Plan: Weight loss with calorie restriction and try to increase activity is encouraged. Subjective Date/time seen: 07/26/22 07:45 Interval history: Patient did have a bowel movement after enema. He states it was a small amount however. Continues to complain of upper abdominal discomfort. Poor appetite. Review of Systems Review of Systems: Review of systems noncontributory. Exam Narrative: Physical exam reveals patient to be alert. Vital signs stable. HEENT exam reveals no icterus. Lungs are clear. Heart without murmur. Abdomen is obese soft minimal upper abdominal discomfort. Objective Data Vital Signs Vital Signs: Vital Signs - 24 hr 07/25/22 09:59 07/25/22 14:00 07/25/22 21:37 Temperature 96.9 F L Pulse Rate 65 Respiratory Rate 18 Blood Pressure 119/65 Pulse Oximetry 95 94 94 Oxygen Delivery Room Air Room Air 07/25/22 21:43 07/25/22 20:00 07/25/22 21:58 Temperature 96.9 F L Pulse Rate 71 77 Respiratory Rate 14 Blood Pressure 114/52 L Pulse Oximetry 94 91 Oxygen Delivery CPAP Room Air 07/26/22 05:54 Temperature 97.6 F Pulse Rate 67 Respiratory Rate 14 Blood Pressure 132/78 Pulse Oximetry 96 Oxygen Delivery Intake/Output Intake/Output: Intake & Output 07/23/22 07/24/22 07/25/22 07/26/22 23:59 23:59 23:59 23:59 Intake Total 1580 2740 1660 500 Output Total 3200 2350 900 550 Balance -1620 390 760 -50 Meds/Results Medications: Active Medications Generic Name Dose Route Start Last Admin Trade Name Freq PRN Reason Stop Dose Admin Acetaminophen 650 mg 07/19/22 09:54 07/25/22 03:26 Acetaminophen 325 Mg Tablet PO 650 mg Q4H PRN Administration Mild Pain (1-3) or Fever Hydrocodone Bitart/Acetaminophen 1 tab 07/20/22 11:06 Hydrocodone/Acetaminophen (*Crx) 5-325 Mg Tablet PO Q4H PRN Pain Rated 4-6 Albuterol 2 puff 07/19/22 14:37 Albuterol Sulfate (*Sp) Aerosol 1 Puff INHALATION PRN PRN shortness of breath Allopurinol 100 mg 07/20/22 09:00 07/25/22 08:46 Allopurinol 100 Mg Tablet PO 100 mg DAILY JARED Administration Bisacodyl 5 mg 07/26/22 09:00 Bisacodyl 5 Mg Tablet Ec PO DAILY JARED Dextrose 12.5 gm 07/19/22 14:01 Dextrose 50% 25 Gm/50 Ml Syringe IV PUSH PRN PRN Hypoglycemia Protocol Docusate Sodium 100 mg 07/21/22 17:40 07/21/22 18:20 Docusate Sodium 100 Mg Capsule PO 100 mg Q12H PRN Administration Constipation Glipizide 5 mg 07/20/22 09:00 07/25/22 08:47 Glipizide 5 Mg Tablet PO 5 mg DAILY JARED Administration Glucagon 1 mg 07/19/22 14:01 Glucagon For Inj 1 Mg Vial IM PRN PRN Hypoglycemia Protocol Glucose 15 gm 07/19/22 14:01 Glucose Oral Gel 15 Gm Of Glucse In
[2022-07-26] MEDS: PRAMIPEXOLE 1 MG TABLET BY MOUTH (08:07)
[2022-07-26] MEDS: CHOLECALCIFEROL 1,000 UNITS TABLET 1000 UNITS PO (08:08)
[2022-07-26] MEDS: glipiZIDE 5 MG TABLET PO (08:08)
[2022-07-26] MEDS: PANTOPRAZOLE 40 MG TABLET BY MOUTH (08:08)
[2022-07-26] MEDS: MULTIVITAMINS THERAPEUTIC TAB (*BKC) 1 TABLET PO (08:08)
[2022-07-26] MEDS: TORSEMIDE 20 MG TABLET 40 MG PO ×2 (08:08→17:25)
[2022-07-26] MEDS: POTASSIUM CHLORIDE 20 MEQ TABLET.ER 40 MEQ PO (08:08)
[2022-07-26] MEDS: TOLNAFTATE 1% POWDER 45 GM BTL 1 APPLIC TOPICAL ×2 (08:09→20:27)
[2022-07-26] MEDS: allopurinoL 100 MG TABLET PO (08:09)
[2022-07-26] MEDS: polyethylene glycoL 3350 17 GM POWD.PACK PO (08:09)
[2022-07-26] MEDS: BISACODYL 5 MG TABLET EC PO (08:09)
[2022-07-26] MEDS: LOSARTAN POTASSIUM 25 MG TABLET PO (08:09)
[2022-07-26] MEDS: cefTRIAXone 2 GM in SODIUM CHLORIDE 0.9% IV 100 ML 200 ML IVPB (08:12)
[2022-07-26 08:32] LABS: Glucose Point of Care 169 mg/dl (65-105)
[2022-07-26] MEDS: FLUTICASONE/SALMETEROL 115-21 MCG INHALER 1 PUFF 2 PUFF INHALATION ×2 (10:57→23:59)
[2022-07-26 12:00] LABS: Glucose Point of Care 186 mg/dl (65-105)
--- NOTE | 2022-07-26 12:43 | PM.IMPN ---
Progress Note: A&P Assessment and Plan (1) Epididymitis: Code(s): N45.1 - Epididymitis Status: Acute Assessment and Plan: Urine cultures and sensitivity. Klebsiella pneumoniae pt receiving iv antibiotics Rocephin day 7 Left scrotal area cutting machine tender and swollen Ultrasound scrotum reviewed from 07/19/2022 Will check another ultrasound for any changes (2) Acute UTI: Code(s): N39.0 - Urinary tract infection, site not specified Status: Acute Assessment and Plan: Urine cultures and sensitivity. Klebsiella pneumoniae Pt receiving iv antibiotics Rocephin day 7 Acute epididymitis urology on consult (3) Diabetes type 2, controlled: Qualifiers: Diabetes mellitus complication status: without complication Diabetes mellitus superintendent terminal insulin use: without long-term use Qualified Code(s): E11.9 - Type 2 diabetes mellitus without complications Code(s): E11.9 - Type 2 diabetes mellitus without complications Status: Acute Assessment and Plan: HBA1c 7.7 ( goal <7.0%) , Renal functions, Liver panel every 3 months Monitor vitamin B12 levels Optimize SHAZIA-inhibitor and statin Routine glucose monitoring. Watch for Hypoglycemia. BMI goal < 25 Sliding scale insulin. (4) Acute diastolic CHF (congestive heart failure): Code(s): I50.31 - Acute diastolic (congestive) heart failure Status: Acute Assessment and Plan: Heart failure with preserved ejection fraction. EKG reviewed Chest x-ray reviewed TTE EF 60% 2021 (5) Morbid obesity: Code(s): E66.01 - Morbid (severe) obesity due to excess calories Status: Chronic (6) Urinary retention with incomplete bladder emptying: Code(s): R33.9 - Retention of urine, unspecified Status: Acute Assessment and Plan: Morales catheter due to urinary retention for obstructive uropathy and pyelonephritis Pt has purewick catheter currently (7) Fecal impaction of colon: Code(s): K56.41 - Fecal impaction Status: Acute Assessment and Plan: continue laxatives Pt had kub and barium enema Contrast passes to the splenic flexure of the colon where there is stool. The transverse and ascending colon are distended, but not opacified by contrast. Hopefully this exam will relieve the stool impaction in the splenic flexure. Therapeutic enemas are recommended given the stercoral colitis in the hepatic flexure of the colon suggested by CT. GI and Surgery rounding Subjective Date/time seen: 07/26/22 12:43 Interval history: 67-year-old male patient who follows with Dr. Schmidt.? The patient has a history of recurrent UTIs.? He has also a partial prostatectomy.? The patient recently had a chronic indwelling suprapubic catheter which was removed last month.? This past month the patient was hospitalized for UTI for drug resistant Klebsiella in his urine.Pt has been admitted with epididymitis and infected scrotum, Pt also kub shows ileus. pt is receiving enemas for fecal impaction. Pt has a morales in situ. 07/26/2022: Patient reports pain in his scrotal area. he has been on antibioics. no other complaints. no abdominal pain, nausea, vomiting. Review of Systems Review of Systems: All systems reviewed & are unremarkable except as noted in HPI and below Exam Narrative: Insert GENERAL: Well appearing, well-nourished NECK: Supple. No adenopathy, no masses. RESPIRATORY: Clear to auscultation bilaterally, no rales, rhonchi, wheezing. CARDIOVASCULAR: Regular rate and rhythm without murmurs, rubs, or gallops. ABDOMINAL: Soft, nontender, nondistended, no hepatosplenomegaly. Normoactive BS. MUSCULOSKELETAL: no Epigastric and no hypochondrial tenderness SKIN: Warm, dry, normal color. No rashes. NEURO: A&O X3. Moves all extremities PSYCHIATRIC: Appropriate mood and affect. Normal interaction. GENITOURINARY: tender left scrotum, sensitive to touch Objective Data Vital Signs Vital Signs: Vit
[2022-07-26] MEDS: ACETAMINOPHEN 325 MG TABLET 650 MG PO (15:57)
[2022-07-26] MEDS: POTASSIUM CHLORIDE 20 MEQ TABLET 40 MEQ PO (15:57)
[2022-07-26 17:07] LABS: Glucose Point of Care 300 mg/dl (65-105)
[2022-07-26] MEDS: INSULIN ASPART (*BKC) 100 UNITS/ML SUB-Q (17:20)
[2022-07-26] MEDS: PRAMIPEXOLE 1 MG TABLET 2 MG BY MOUTH (17:25)
[2022-07-26] MEDS: SENNA/DOCUSATE SODIUM TABLET 1 TAB PO (20:27)
[2022-07-26] MEDS: SPIRONOLACTONE 25 MG TABLET PO (20:27)
[2022-07-26 20:33] LABS: Glucose Point of Care 190 mg/dl (65-105)
[2022-07-27] VITALS (8 sets, daily range): BP systolic 110–122; BP diastolic 53–72; PULSE 60–75; RESP 12–20; TEMP 36.6–37.1; O2SAT 92–97
[2022-07-27] MEDS: METOCLOPRAMIDE HCL INJ 10 MG/2 ML VIAL IV PUSH (05:29)
[2022-07-27] MEDS: LINACLOTIDE 145 MCG CAPSULE 290 MCG PO (05:29)
[2022-07-27 06:44] LABS: Basophils Percent Auto 0.5 % (0.2-1.2); Eosinophils Absolute Auto 0.3 K/mm3 (0-0.3); Eosinophils Percent Auto 4.9 % (0-4.4); Hematocrit 40.9 % (42.0-52.0); Hemoglobin 13.4 g/dL (14.0-18.0); Immature Granulocyte Absolute 0.03 K/mm3 (0.00-0.031); Immature Granulocyte Percent A 0.5 % (0-0.5); Lymphocytes Absolute Auto 0.99 K/mm3 (0.9-3.2); Lymphocytes Percent Auto 16.9 % (18.3-44.2); Mean Corpuscular HGB Conc 32.8 g/dl (32-36); Mean Corpuscular Hemoglobin 28.2 pg (26-34); Mean Corpuscular Volume 85.9 fl (80-100); Mean Platelet Volume 10.4 fl (7.4-10.4); Monocytes Absolute Auto 0.7 K/mm3 (0.1-0.6); Monocytes Percent Auto 11.9 % (2.6-8.5); Neutrophils Absolute Auto 3.8 K/mm3 (1.3-6.7); Neutrophils Percent Auto 65.3 % (45.5-73.1); Platelet Count Result 248 k/mm3 (150-375); Red Blood Count 4.76 M/mm3 (4.6-6.20); Red Cell Distribution Width 14.6 % (11.5-14.5); White Blood Count 5.9 K/mm3 (4.5-10.0)
[2022-07-27 06:49] LABS: Alanine Aminotransferase 38 U/L (6-50); Albumin Level 3.9 g/dL (3.5-5.1); Alkaline Phosphatase 237 U/L (38-126); Anion Gap 5 mmol/L (8-16); Aspartate Amino Transferase 32 U/L (17-59); Bilirubin,Total 0.4 mg/dL (0.2-1.3); Blood Urea Nitrogen 17 mg/dL (9-20); Carbon Dioxide 33 mmol/L (22-30); Chloride 95 mmol/L (98-107); Estimated CRCL calculation 116 ml/min; Estimated Glomerular Filt Rate > 60; Glucose 182 mg/dL (65-110); Magnesium 2.4 mg/dL (1.6-2.3); Potassium 3.7 mmol/L (3.4-5.0); Sodium 133 mmol/L (137-145)
[2022-07-27 08:27] LABS: Glucose Point of Care 228 mg/dl (65-105)
[2022-07-27] MEDS: polyethylene glycoL 3350 17 GM POWD.PACK PO (08:55)
[2022-07-27] MEDS: allopurinoL 100 MG TABLET PO (08:56)
[2022-07-27] MEDS: TORSEMIDE 20 MG TABLET 40 MG PO ×2 (08:56→17:16)
[2022-07-27] MEDS: LOSARTAN POTASSIUM 25 MG TABLET PO (08:56)
[2022-07-27] MEDS: PRAMIPEXOLE 1 MG TABLET BY MOUTH (08:56)
[2022-07-27] MEDS: BISACODYL 5 MG TABLET EC PO (08:56)
[2022-07-27] MEDS: MULTIVITAMINS THERAPEUTIC TAB (*BKC) 1 TABLET PO (08:56)
[2022-07-27] MEDS: FLUTICASONE/SALMETEROL 115-21 MCG INHALER 1 PUFF 2 PUFF INHALATION ×2 (08:56→20:39)
[2022-07-27] MEDS: POTASSIUM CHLORIDE 20 MEQ TABLET.ER 40 MEQ PO (08:56)
[2022-07-27] MEDS: CHOLECALCIFEROL 1,000 UNITS TABLET 1000 UNITS PO (08:57)
[2022-07-27] MEDS: glipiZIDE 5 MG TABLET PO (08:57)
[2022-07-27] MEDS: PANTOPRAZOLE 40 MG TABLET BY MOUTH (08:57)
[2022-07-27] MEDS: cefTRIAXone 2 GM in SODIUM CHLORIDE 0.9% IV 100 ML IVPB (09:04)
[2022-07-27] MEDS: TOLNAFTATE 1% POWDER 45 GM BTL 1 APPLIC TOPICAL ×2 (09:04→20:21)
[2022-07-27 11:29] LABS: Glucose Point of Care 190 mg/dl (65-105)
--- NOTE | 2022-07-27 12:07 | WPDGIPROGNO ---
Progress Note: A&P Assessment and Plan (1) Constipation: Code(s): K59.00 - Constipation, unspecified Status: Acute Assessment and Plan: Patient now with significant abdominal pain. To have clear the impaction. Upper abdominal pain improved. Plan to continue Linzess on a daily basis. May need supplemental medications such as Dulcolax intermittently. Advance diet as tolerated. Discontinue Reglan at this time. (2) Epididymitis: Code(s): N45.1 - Epididymitis Status: Acute (3) Acute UTI: Code(s): N39.0 - Urinary tract infection, site not specified Status: Acute Subjective Date/time seen: 07/27/22 12:07 Interval history: Patient feels better today. Pass substantial bowel movement overnight. Tolerating diet. Upper abdominal discomfort improved Review of Systems Review of Systems: review of systems noncontributory. Exam Narrative: Physical exam reveals patient be alert. Vital signs stable. HEENT exam no icterus. Lungs are clear. Heart without murmur. Abdomen is obese. Soft no localized tenderness today. Objective Data Vital Signs Vital Signs: Vital Signs - 24 hr 07/26/22 15:57 07/26/22 16:56 07/26/22 15:45 Temperature 98.5 F 98.9 F 98.5 F Pulse Rate 101 H Respiratory Rate 16 Blood Pressure 109/45 L Pulse Oximetry 93 Oxygen Delivery 07/26/22 20:00 07/26/22 22:00 07/27/22 00:02 Temperature 97.0 F L Pulse Rate 60 60 Respiratory Rate 20 Blood Pressure 114/59 L Pulse Oximetry 94 94 Oxygen Delivery Room Air CPAP 07/27/22 00:02 07/27/22 06:00 07/27/22 08:00 Temperature 97.9 F Pulse Rate 66 Respiratory Rate 18 Blood Pressure 121/68 Pulse Oximetry 94 95 Oxygen Delivery Room Air Room Air 07/27/22 08:56 07/27/22 11:47 Temperature Pulse Rate 75 Respiratory Rate 16 Blood Pressure Pulse Oximetry 92 Oxygen Delivery Room Air Intake/Output Intake/Output: Intake & Output 07/24/22 07/25/22 07/26/22 07/27/22 23:59 23:59 23:59 23:59 Intake Total 2740 1660 1730 1440 Output Total 2350 900 550 Balance 976 254 6585 1440 Meds/Results Medications: Active Medications Generic Name Dose Route Start Last Admin Trade Name Pravin PRN Reason Stop Dose Admin Acetaminophen 650 mg 07/19/22 09:54 07/26/22 15:57 Acetaminophen 325 Mg Tablet PO 650 mg Q4H PRN Administration Mild Pain (1-3) or Fever Hydrocodone Bitart/Acetaminophen 1 tab 07/20/22 11:06 Hydrocodone/Acetaminophen (*Crx) 5-325 Mg Tablet PO Q4H PRN Pain Rated 4-6 Albuterol 2 puff 07/19/22 14:37 Albuterol Sulfate (*Sp) Aerosol 1 Puff INHALATION PRN PRN shortness of breath Allopurinol 100 mg 07/20/22 09:00 07/27/22 08:56 Allopurinol 100 Mg Tablet PO 100 mg DAILY JARED Administration Bisacodyl 5 mg 07/26/22 09:00 07/27/22 08:56 Bisacodyl 5 Mg Tablet Ec PO 5 mg DAILY JARED Administration Dextrose 12.5 gm 07/19/22 14:01 Dextrose 50% 25 Gm/50 Ml Syringe IV PUSH PRN PRN Hypoglycemia Protocol Docusate Sodium 100 mg 07/21/22 17:40 07/21/22 18:20 Docusate Sodium 100 Mg Capsule PO 100 mg Q12H PRN Administration Constipation Glipizide 5 mg 07/20/22 09:00 07/27/22 08:57 Glipizide 5 Mg Tablet PO 5 mg DAILY JARED Administration Glucagon 1 mg 07/19/22 14:01 Glucagon For Inj 1 Mg Vial IM PRN PRN Hypoglycemia Protocol Glucose 15 gm 07/19/22 14:01 Glucose Oral Gel 15 Gm Of Glucse In 37.5 Gm Tube PO PRN PRN Hypoglycemia Protocol Ceftriaxone Sodium 2 gm/ 100 mls @ 200 mls/hr 07/20/22 09:00 07/27/22 09:04 Sodium Chloride IVPB 100 mls/hr Q24H JARED Administration Dextrose 1,000 mls @ 100 mls/hr 07/19/22 14:01 Dextrose 5% 1,000 Ml IVPB PRN PRN Hypoglycemia Protocol Insulin Aspart 2 - 5 units 07/19/22 17:00 07/27/22 11:41 Insulin Aspart (*Bkc) 100 Units/Ml SUB-Q Not Giv
--- NOTE | 2022-07-27 13:18 | WPDUROPN2 ---
Progress Note: A&P Assessment and Plan (1) Epididymitis: Code(s): N45.1 - Epididymitis Status: Acute Assessment and Plan: Left epididymitis much improved over last 7-days. Suggest 1-week more abx. (swithc to oral Cephalasporin anytime from my standpoint). Plan Subjective Subjective Date/Time Seen: 07/27/22 13:18 Significant improvement left scrotal discomfort and swelling Review of Systems Cardiovascular: Cardiovascular: Denies chest pain, Denies lightheadedness, Denies palpitations and Denies dyspnea Respiratory: Respiratory: Denies dyspnea Gastrointestinal: Gastrointestinal: Denies diarrhea, Denies nausea and Denies vomiting Genitourinary: Genitourinary: Denies hematuria and Denies dysuria Endocrine: Endocrine: Denies palpitations Exam Const: General: no acute distress Resp: Effort & Inspection: normal respiratory effort GI: Inspection: non-distended GI Palp: No abdominal tenderness and No Guarding due to palpation present (GI) Auscultation: normal bowel sounds : Scrotum: edematous and other (mild swelling/induration left epididymis) Objective Data Vital Signs Vital Signs: Vital Signs - 24 hr 07/26/22 15:57 07/26/22 16:56 07/26/22 15:45 Temperature 98.5 F 98.9 F 98.5 F Pulse Rate 101 H Respiratory Rate 16 Blood Pressure 109/45 L Pulse Oximetry 93 Oxygen Delivery 07/26/22 20:00 07/26/22 22:00 07/27/22 00:02 Temperature 97.0 F L Pulse Rate 60 60 Respiratory Rate 20 Blood Pressure 114/59 L Pulse Oximetry 94 94 Oxygen Delivery Room Air CPAP 07/27/22 00:02 07/27/22 06:00 07/27/22 08:00 Temperature 97.9 F Pulse Rate 66 Respiratory Rate 18 Blood Pressure 121/68 Pulse Oximetry 94 95 Oxygen Delivery Room Air Room Air 07/27/22 08:56 07/27/22 11:47 Temperature Pulse Rate 75 Respiratory Rate 16 Blood Pressure Pulse Oximetry 92 Oxygen Delivery Room Air Intake/Output Intake/Output: Intake & Output 07/24/22 07/25/22 07/26/22 07/27/22 23:59 23:59 23:59 23:59 Intake Total 2740 1660 1730 1440 Output Total 2350 900 550 Balance 203 229 7069 1440 Meds/Results Medications: Active Medications Generic Name Dose Route Start Last Admin Trade Name Freq PRN Reason Stop Dose Admin Acetaminophen 650 mg 07/19/22 09:54 07/26/22 15:57 Acetaminophen 325 Mg Tablet PO 650 mg Q4H PRN Administration Mild Pain (1-3) or Fever Hydrocodone Bitart/Acetaminophen 1 tab 07/20/22 11:06 Hydrocodone/Acetaminophen (*Crx) 5-325 Mg Tablet PO Q4H PRN Pain Rated 4-6 Albuterol 2 puff 07/19/22 14:37 Albuterol Sulfate (*Sp) Aerosol 1 Puff INHALATION PRN PRN shortness of breath Allopurinol 100 mg 07/20/22 09:00 07/27/22 08:56 Allopurinol 100 Mg Tablet PO 100 mg DAILY JARED Administration Bisacodyl 5 mg 07/26/22 09:00 07/27/22 08:56 Bisacodyl 5 Mg Tablet Ec PO 5 mg DAILY JARED Administration Dextrose 12.5 gm 07/19/22 14:01 Dextrose 50% 25 Gm/50 Ml Syringe IV PUSH PRN PRN Hypoglycemia Protocol Docusate Sodium 100 mg 07/21/22 17:40 07/21/22 18:20 Docusate Sodium 100 Mg Capsule PO 100 mg Q12H PRN Administration Constipation Glipizide 5 mg 07/20/22 09:00 07/27/22 08:57 Glipizide 5 Mg Tablet PO 5 mg DAILY JARED Administration Glucagon 1 mg 07/19/22 14:01 Glucagon For Inj 1 Mg Vial IM PRN PRN Hypoglycemia Protocol Glucose 15 gm 07/19/22 14:01 Glucose Oral Gel 15 Gm Of Glucse In 37.5 Gm Tube PO PRN PRN Hypoglycemia Protocol Ceftriaxone Sodium 2 gm/ 100 mls @ 200 mls/hr 07/20/22 09:00 07/27/22 09:04 Sodium Chloride IVPB 100 mls/hr Q24H JARED Administration Dextrose 1,000 mls @ 100 mls/hr 07/19/22 14:01 Dextrose 5% 1,000 Ml IVPB PRN PRN Hypoglycemia Protocol Insulin Aspart 2 - 5 units 07/19/22 17:00 07/27/22 11:41 Insulin Aspart (*Bkc) 100 Units
--- NOTE | 2022-07-27 14:26 | PM.IMPN ---
Progress Note: A&P Assessment and Plan (1) Epididymitis: Code(s): N45.1 - Epididymitis Status: Acute Assessment and Plan: Urine cultures and sensitivity. Klebsiella pneumoniae pt receiving iv antibiotics Rocephin day 8 Left scrotal area long wall mining machine tender and swollen Ultrasound scrotum reviewed from 07/19/2022 Ultrasound scrotal repeat with no collections findings of epididymitis noted (2) Acute UTI: Code(s): N39.0 - Urinary tract infection, site not specified Status: Acute Assessment and Plan: Urine cultures and sensitivity. Klebsiella pneumoniae Pt receiving iv antibiotics Rocephin day 8 Acute epididymitis urology on consult Re-consult Urology (3) Diabetes type 2, controlled: Qualifiers: Diabetes mellitus filler leaf cutter long insulin use: without filler leaf cutter long use Diabetes mellitus complication status: without complication Qualified Code(s): E11.9 - Type 2 diabetes mellitus without complications Code(s): E11.9 - Type 2 diabetes mellitus without complications Status: Acute Assessment and Plan: HBA1c 7.7 ( goal <7.0%) , Renal functions, Liver panel every 3 months Monitor vitamin B12 levels Optimize SHAZIA-inhibitor and statin Routine glucose monitoring. Watch for Hypoglycemia. BMI goal < 25 Sliding scale insulin. (4) Acute diastolic CHF (congestive heart failure): Code(s): I50.31 - Acute diastolic (congestive) heart failure Status: Acute Assessment and Plan: Heart failure with preserved ejection fraction. EKG reviewed Chest x-ray reviewed TTE EF 60% 2021 (5) Morbid obesity: Code(s): E66.01 - Morbid (severe) obesity due to excess calories Status: Chronic (6) Urinary retention with incomplete bladder emptying: Code(s): R33.9 - Retention of urine, unspecified Status: Acute Assessment and Plan: Morales catheter due to urinary retention for obstructive uropathy and pyelonephritis Pt has purewick catheter currently (7) Fecal impaction of colon: Code(s): K56.41 - Fecal impaction Status: Acute Assessment and Plan: continue laxatives Pt had kub and barium enema Contrast passes to the splenic flexure of the colon where there is stool. The transverse and ascending colon are distended, but not opacified by contrast. Hopefully this exam will relieve the stool impaction in the splenic flexure. Therapeutic enemas are recommended given the stercoral colitis in the hepatic flexure of the colon suggested by CT. GI and Surgery rounding Subjective Date/time seen: 07/27/22 14:26 Interval history: 67-year-old male patient who follows with Dr. Schmidt.? The patient has a history of recurrent UTIs.? He has also a partial prostatectomy.? The patient recently had a chronic indwelling suprapubic catheter which was removed last month.? This past month the patient was hospitalized for UTI for drug resistant Klebsiella in his urine.Pt has been admitted with epididymitis and infected scrotum, Pt also kub shows ileus. pt is receiving enemas for fecal impaction. Pt has a morales in situ. 07/26/2022: Patient reports pain in his scrotal area. he has been on antibioics. no other complaints. no abdominal pain, nausea, vomiting. 07/27/2022: Scrotal area pain is improved and less swollen reported by the patient. Continues to still significant sensitivity in the area. Remains afebrile. No no other complaints. Review of Systems Review of Systems: All systems reviewed & are unremarkable except as noted in HPI and below Exam Narrative: Insert GENERAL: Well appearing, well-nourished NECK: Supple. No adenopathy, no masses. RESPIRATORY: Clear to auscultation bilaterally, no rales, rhonchi, wheezing. CARDIOVASCULAR: Regular rate and rhythm without murmurs, rubs, or gallops. ABDOMINAL: Soft, nontender, nondistended, no hepatosplenomegaly. Normoactive BS. MUSCULOSKELETAL: no Epigastric and no hypochondrial tenderness SKIN: Warm,
[2022-07-27 17:16] LABS: Glucose Point of Care 181 mg/dl (65-105)
[2022-07-27] MEDS: PRAMIPEXOLE 1 MG TABLET 2 MG BY MOUTH (17:16)
[2022-07-27] MEDS: ONDANSETRON INJ 4 MG/2 ML VIAL IV PUSH (18:38)
[2022-07-27] MEDS: INSULIN ASPART (*BKC) 100 UNITS/ML 6 UNITS SUB-Q (20:19)
[2022-07-27] MEDS: METOCLOPRAMIDE HCL INJ 10 MG/2 ML VIAL 5 MG IV PUSH (20:19)
[2022-07-27] MEDS: SPIRONOLACTONE 25 MG TABLET PO (20:19)
[2022-07-27 20:50] LABS: Glucose Point of Care 310 mg/dl (65-105)
[2022-07-27] MEDS: oxyCODONE/ACETAMINOPHEN (*CRX) 5-325 MG TABLET 1 TABLET PO (21:55)
[2022-07-27] MEDS: ACETAMINOPHEN 325 MG TABLET 650 MG PO (21:55)
[2022-07-27 23:39] LABS: Glucose Point of Care 192 mg/dl (65-105)
[2022-07-28] VITALS (7 sets, daily range): BP systolic 117–129; BP diastolic 58–64; PULSE 64–74; RESP 14–20; TEMP 36.1–36.5; O2SAT 92–100
[2022-07-28] MEDS: LINACLOTIDE 145 MCG CAPSULE 290 MCG PO (05:39)
[2022-07-28] MEDS: ACETAMINOPHEN 325 MG TABLET 650 MG PO ×3 (05:42→17:23)
[2022-07-28] MEDS: HYDROcodone/acetaminophen (*CRX) 5-325 MG TABLET 1 TAB PO ×2 (06:18→20:38)
[2022-07-28] MEDS: FLUTICASONE/SALMETEROL 115-21 MCG INHALER 1 PUFF 2 PUFF INHALATION ×2 (08:13→20:43)
[2022-07-28 08:21] LABS: Glucose Point of Care 194 mg/dl (65-105)
[2022-07-28] MEDS: glipiZIDE 5 MG TABLET PO (09:03)
[2022-07-28] MEDS: TORSEMIDE 20 MG TABLET 40 MG PO ×2 (09:03→17:15)
[2022-07-28] MEDS: polyethylene glycoL 3350 17 GM POWD.PACK PO (09:03)
[2022-07-28] MEDS: CHOLECALCIFEROL 1,000 UNITS TABLET 1000 UNITS PO (09:03)
[2022-07-28] MEDS: PANTOPRAZOLE 40 MG TABLET BY MOUTH (09:04)
[2022-07-28] MEDS: LOSARTAN POTASSIUM 25 MG TABLET PO (09:04)
[2022-07-28] MEDS: POTASSIUM CHLORIDE 20 MEQ TABLET.ER 40 MEQ PO (09:04)
[2022-07-28] MEDS: MULTIVITAMINS THERAPEUTIC TAB (*BKC) 1 TABLET PO (09:04)
[2022-07-28] MEDS: PRAMIPEXOLE 1 MG TABLET BY MOUTH (09:04)
[2022-07-28] MEDS: BISACODYL 5 MG TABLET EC PO (09:04)
[2022-07-28] MEDS: allopurinoL 100 MG TABLET PO (09:04)
[2022-07-28] MEDS: cefTRIAXone 2 GM in SODIUM CHLORIDE 0.9% IV 100 ML IVPB (09:05)
[2022-07-28] MEDS: TOLNAFTATE 1% POWDER 45 GM BTL 1 APPLIC TOPICAL ×2 (09:05→20:22)
[2022-07-28 11:49] LABS: Glucose Point of Care 231 mg/dl (65-105)
--- NOTE | 2022-07-28 12:08 | WPDGIPROGNO ---
Progress Note: A&P Assessment and Plan (1) Constipation: Code(s): K59.00 - Constipation, unspecified Status: Chronic Assessment and Plan: Patient admitted with constipation apparent fecal impaction. Abdomen much softer bowel habits more regular at present. Colonoscopy earlier this year unremarkable. Patient has a family history of colon cancer. Follow-up colonoscopy at 5 year intervals advised. Continue daily laxatives. Suggest Linzess. He has had good improvement on this medication. Likely has underlying irritable bowel syndrome given his complaints of abdominal discomfort. (2) Acute UTI: Code(s): N39.0 - Urinary tract infection, site not specified Status: Acute (3) Epididymitis: Code(s): N45.1 - Epididymitis Status: Acute (4) Morbid obesity: Code(s): E66.01 - Morbid (severe) obesity due to excess calories Status: Chronic (5) Abdominal pain: Code(s): R10.9 - Unspecified abdominal pain Status: Acute Assessment and Plan: Patient does complain of abdominal pain shortly after eating. Unsure how this relates to his constipation and other problems. EGD earlier this year was unremarkable with similar discomfort. Plan to continue trial of pantoprazole. If patient still complains of pain consider an EGD electively. Subjective Date/time seen: 07/28/22 12:08 Interval history: Patient continues to report a poor appetite. Had episode of abdominal pain last evening. Somewhat poorly described. Started to have more bowel movements. States his scrotum is less swollen. Review of Systems Review of Systems: Review of systems noncontributory. Exam Narrative: Physical exam patient is alert and afebrile. HEENT exam is anicteric. Lungs are clear. Heart without murmur. Abdomen is obese. Bowel sounds are present abdomen is softer than last week. No localized tenderness appreciated. Objective Data Vital Signs Vital Signs: Vital Signs - 24 hr 07/27/22 14:00 07/27/22 21:56 07/27/22 20:00 Temperature 98 F 98.4 F Pulse Rate 68 67 Respiratory Rate 16 12 Blood Pressure 116/71 122/72 Pulse Oximetry 97 94 Oxygen Delivery Room Air 07/27/22 22:56 07/27/22 22:56 07/27/22 23:54 Temperature 98.7 F Pulse Rate 69 69 65 Respiratory Rate 20 Blood Pressure 110/53 L Pulse Oximetry 94 94 97 Oxygen Delivery CPAP Room Air 07/28/22 02:17 07/28/22 05:24 Temperature 97.6 F Pulse Rate 73 65 Respiratory Rate 20 Blood Pressure 129/61 Pulse Oximetry 94 100 Oxygen Delivery CPAP Intake/Output Intake/Output: Intake & Output 07/25/22 07/26/22 07/27/22 07/28/22 23:59 23:59 23:59 23:59 Intake Total 1660 1730 2019 600 Output Total 900 550 Balance 760 1180 2019 600 Meds/Results Medications: Active Medications Generic Name Dose Route Start Last Admin Trade Name Freq PRN Reason Stop Dose Admin Acetaminophen 650 mg 07/19/22 09:54 07/28/22 05:42 Acetaminophen 325 Mg Tablet PO 650 mg Q4H PRN Administration Mild Pain (1-3) or Fever Hydrocodone Bitart/Acetaminophen 1 tab 07/20/22 11:06 07/28/22 06:18 Hydrocodone/Acetaminophen (*Crx) 5-325 Mg Tablet PO 1 tab Q4H PRN Administration Pain Rated 4-6 Albuterol 2 puff 07/19/22 14:37 Albuterol Sulfate (*Sp) Aerosol 1 Puff INHALATION PRN PRN shortness of breath Allopurinol 100 mg 07/20/22 09:00 07/28/22 09:04 Allopurinol 100 Mg Tablet PO 100 mg DAILY JARED Administration Bisacodyl 5 mg 07/26/22 09:00 07/28/22 09:04 Bisacodyl 5 Mg Tablet Ec PO 5 mg DAILY JARED Administration Dextrose 12.5 gm 07/19/22 14:01 Dextrose 50% 25 Gm/50 Ml Syringe IV PUSH PRN PRN Hypoglycemia Protocol Docusate Sodium 100 mg 07/21/22 17:40 07/21/22 18:20 Docusate Sodium 100 Mg Capsule PO 100 mg Q12H PRN Administration Constipation Glipizide 5 mg 07/20/22 09:00 07/28/22 09:03 Glipizide 5 Mg
[2022-07-28] MEDS: INSULIN ASPART (*BKC) 100 UNITS/ML SUB-Q ×2 (12:18→20:41)
--- NOTE | 2022-07-28 16:19 | PM.IMPN ---
Progress Note: A&P Assessment and Plan (1) Epididymitis: Code(s): N45.1 - Epididymitis Status: Acute Assessment and Plan: Urine cultures and sensitivity. Klebsiella pneumoniae pt receiving iv antibiotics Rocephin day 9 Left scrotal area wash tank tender and swollen Ultrasound scrotum reviewed from 07/19/2022 Ultrasound scrotal repeat with no collections findings of epididymitis noted (2) Acute UTI: Code(s): N39.0 - Urinary tract infection, site not specified Status: Acute Assessment and Plan: Urine cultures and sensitivity. 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 Watch for Hypoglycemia. BMI goal < 25 Sliding scale insulin. (4) Acute diastolic CHF (congestive heart failure): Code(s): I50.31 - Acute diastolic (congestive) heart failure Status: Acute Assessment and Plan: Heart failure with preserved ejection fraction. EKG reviewed Chest x-ray reviewed TTE EF 60% 2021 (5) Morbid obesity: Code(s): E66.01 - Morbid (severe) obesity due to excess calories Status: Chronic (6) Urinary retention with incomplete bladder emptying: Code(s): R33.9 - Retention of urine, unspecified Status: Acute Assessment and Plan: Kurtz catheter due to urinary retention off now. for obstructive uropathy and pyelonephritis Pt has purewick catheter currently used to have suprapubi c catheter which has now been remvoed (7) Fecal impaction of colon: Code(s): K56.41 - Fecal impaction Status: Acute Assessment and Plan: continue laxatives Pt had kub and barium enema Contrast passes to the splenic flexure of the colon where there is stool. The transverse and ascending colon are distended, but not opacified by contrast. Hopefully this exam will relieve the stool impaction in the splenic flexure. Therapeutic enemas are recommended given the stercoral colitis in the hepatic flexure of the colon suggested by CT. GI and Surgery rounding Subjective Date/time seen: 07/28/22 16:19 Interval history: feels a little more weak today. having some pain in his abdomen. no other compalints. haven't had bm today. but did have it yesterday. scortal swelling has improved. Review of Systems Review of Systems: All systems reviewed & are unremarkable except as noted in HPI and below Exam Narrative: Insert GENERAL: Well appearing, well-nourished NECK: Supple. No adenopathy, no masses. RESPIRATORY: Clear to auscultation bilaterally, no rales, rhonchi, wheezing. CARDIOVASCULAR: Regular rate and rhythm without murmurs, rubs, or gallops. ABDOMINAL: Soft, nontender, nondistended, no hepatosplenomegaly. Normoactive BS. MUSCULOSKELETAL: no Epigastric and no hypochondrial tenderness SKIN: Warm, dry, normal color. No rashes. NEURO: A&O X3. Moves all extremities PSYCHIATRIC: Appropriate mood and affect. Normal interaction. GENITOURINARY: tender left scrotum, sensitive to touch Objective Data Vital Signs Vital Signs: Vital Signs - 24 hr 07/27/22 21:56 07/27/22 20:00 07/27/22 22:56 Temperature 98.4 F Pulse Rate 67 69 Respiratory Rate 12 Blood Pressure 122/72 Pulse Oximetry 94 94 Oxygen Delivery Room Air CPAP 07/27/22 22:56 07/27/22 23:54 07/28/22 02:17 Temperature 98.7 F Pulse Rate 69 65 73 Respiratory Rate 20 Blood Pre
[2022-07-28 16:42] LABS: Glucose Point of Care 185 mg/dl (65-105)
[2022-07-28] MEDS: PRAMIPEXOLE 1 MG TABLET 2 MG BY MOUTH (17:16)
[2022-07-28] MEDS: SENNA/DOCUSATE SODIUM TABLET 1 TAB PO (20:21)
[2022-07-28] MEDS: SPIRONOLACTONE 25 MG TABLET PO (20:21)
[2022-07-28 22:21] LABS: Glucose Point of Care 242 mg/dl (65-105)
[2022-07-28 22:21] LABS: Glucose Point of Care 289 mg/dl (65-105)
[2022-07-29] MEDS: HYDROcodone/acetaminophen (*CRX) 5-325 MG TABLET 1 TAB PO ×2 (04:32→20:55)
[2022-07-29 05:31] VITALS: BP 125/69; PULSE 65; RESP 14; TEMP 36.1; O2SAT 100
[2022-07-29] MEDS: LINACLOTIDE 145 MCG CAPSULE 290 MCG PO (06:04)
[2022-07-29 07:50] LABS: Basophils Percent Auto 0.4 % (0.2-1.2); Eosinophils Absolute Auto 0.3 K/mm3 (0-0.3); Eosinophils Percent Auto 3.4 % (0-4.4); Hematocrit 42.7 % (42.0-52.0); Hemoglobin 13.7 g/dL (14.0-18.0); Immature Granulocyte Absolute 0.02 K/mm3 (0.00-0.031); Immature Granulocyte Percent A 0.3 % (0-0.5); Lymphocytes Absolute Auto 1.07 K/mm3 (0.9-3.2); Lymphocytes Percent Auto 13.6 % (18.3-44.2); Mean Corpuscular HGB Conc 32.1 g/dl (32-36); Mean Corpuscular Hemoglobin 27.8 pg (26-34); Mean Corpuscular Volume 86.8 fl (80-100); Mean Platelet Volume 10.3 fl (7.4-10.4); Monocytes Absolute Auto 0.7 K/mm3 (0.1-0.6); Monocytes Percent Auto 8.8 % (2.6-8.5); Neutrophils Absolute Auto 5.8 K/mm3 (1.3-6.7); Neutrophils Percent Auto 73.5 % (45.5-73.1); Platelet Count Result 265 k/mm3 (150-375); Red Blood Count 4.92 M/mm3 (4.6-6.20); Red Cell Distribution Width 14.7 % (11.5-14.5); White Blood Count 7.9 K/mm3 (4.5-10.0)
[2022-07-29 08:11] LABS: Alanine Aminotransferase 48 U/L (6-50); Alkaline Phosphatase 254 U/L (38-126); Anion Gap 6 mmol/L (8-16); Aspartate Amino Transferase 33 U/L (17-59); Bilirubin,Total 0.6 mg/dL (0.2-1.3); Blood Urea Nitrogen 13 mg/dL (9-20); Calcium 9.3 mg/dL (8.4-10.2); Carbon Dioxide 32 mmol/L (22-30); Chloride 94 mmol/L (98-107); Estimated CRCL calculation 116 ml/min; Estimated Glomerular Filt Rate > 60; Glucose 182 mg/dL (65-110); Magnesium 2.2 mg/dL (1.6-2.3); Potassium 3.8 mmol/L (3.4-5.0); Sodium 132 mmol/L (137-145)
[2022-07-29 08:20] LABS: Glucose Point of Care 187 mg/dl (65-105)
[2022-07-29 08:51] VITALS: PULSE 74; RESP 18
[2022-07-29] MEDS: FLUTICASONE/SALMETEROL 115-21 MCG INHALER 1 PUFF 2 PUFF INHALATION ×2 (08:51→20:37)
[2022-07-29 08:54] VITALS: PULSE 74; RESP 18; O2SAT 92
[2022-07-29] MEDS: polyethylene glycoL 3350 17 GM POWD.PACK PO (09:25)
[2022-07-29] MEDS: POTASSIUM CHLORIDE 20 MEQ TABLET.ER 40 MEQ PO (09:25)
[2022-07-29] MEDS: CHOLECALCIFEROL 1,000 UNITS TABLET 1000 UNITS PO (09:25)
[2022-07-29] MEDS: BISACODYL 5 MG TABLET EC PO (09:26)
[2022-07-29] MEDS: cefTRIAXone 2 GM in SODIUM CHLORIDE 0.9% IV 100 ML 200 ML IVPB (09:26)
[2022-07-29] MEDS: allopurinoL 100 MG TABLET PO (09:27)
[2022-07-29] MEDS: TORSEMIDE 20 MG TABLET 40 MG PO ×2 (09:27→17:06)
[2022-07-29] MEDS: LOSARTAN POTASSIUM 25 MG TABLET PO (09:27)
[2022-07-29] MEDS: MULTIVITAMINS THERAPEUTIC TAB (*BKC) 1 TABLET PO (09:27)
[2022-07-29] MEDS: PRAMIPEXOLE 1 MG TABLET BY MOUTH (09:27)
[2022-07-29] MEDS: glipiZIDE 5 MG TABLET PO (09:27)
[2022-07-29] MEDS: PANTOPRAZOLE 40 MG TABLET BY MOUTH (09:27)
[2022-07-29] MEDS: TOLNAFTATE 1% POWDER 45 GM BTL 1 APPLIC TOPICAL ×2 (09:38→20:51)
[2022-07-29 11:42] LABS: Glucose Point of Care 319 mg/dl (65-105)
[2022-07-29] MEDS: INSULIN ASPART (*BKC) 100 UNITS/ML SUB-Q ×2 (11:43→17:06)
[2022-07-29 14:00] VITALS: BP 110/54; PULSE 65; RESP 20; TEMP 36.1; O2SAT 100
--- NOTE | 2022-07-29 14:31 | PM.IMPN ---
Progress Note: A&P Assessment and Plan (1) Epididymitis: Code(s): N45.1 - Epididymitis Status: Acute Assessment and Plan: Urine cultures and sensitivity. Klebsiella pneumoniae pt receiving iv antibiotics Rocephin day 9 Left scrotal area reagent tender helper and swollen Ultrasound scrotum reviewed from 07/19/2022 Ultrasound scrotal repeat with no collections findings of epididymitis noted (2) Acute UTI: Code(s): N39.0 - Urinary tract infection, site not specified Status: Acute Assessment and Plan: Urine cultures and sensitivity. Klebsiella pneumoniae Pt receiving iv antibiotics Rocephin day 10 Acute epididymitis urology on consult Re-consult Urology reapperanace of urinary symptoms, will rechck urine ad send for culture. (3) Diabetes type 2, controlled: Qualifiers: Diabetes mellitus fci insulin use: without fci use Diabetes mellitus complication status: without complication Qualified Code(s): E11.9 - Type 2 diabetes mellitus without complications Code(s): E11.9 - Type 2 diabetes mellitus without complications Status: Acute Assessment and Plan: HBA1c 7.7 ( goal <7.0%) , Renal functions, Liver panel every 3 months Monitor vitamin B12 levels Optimize SHAZIA-inhibitor and statin Routine glucose monitoring. Watch for Hypoglycemia. BMI goal < 25 Sliding scale insulin. (4) Acute diastolic CHF (congestive heart failure): Code(s): I50.31 - Acute diastolic (congestive) heart failure Status: Acute Assessment and Plan: Heart failure with preserved ejection fraction. EKG reviewed Chest x-ray reviewed TTE EF 60% 2021 (5) Morbid obesity: Code(s): E66.01 - Morbid (severe) obesity due to excess calories Status: Chronic (6) Urinary retention with incomplete bladder emptying: Code(s): R33.9 - Retention of urine, unspecified Status: Acute Assessment and Plan: Kurtz catheter due to urinary retention off now. for obstructive uropathy and pyelonephritis Pt has purewick catheter currently used to have suprapubi c catheter which has now been remvoed (7) Fecal impaction of colon: Code(s): K56.41 - Fecal impaction Status: Acute Assessment and Plan: continue laxatives Pt had kub and barium enema Contrast passes to the splenic flexure of the colon where there is stool. The transverse and ascending colon are distended, but not opacified by contrast. Hopefully this exam will relieve the stool impaction in the splenic flexure. Therapeutic enemas are recommended given the stercoral colitis in the hepatic flexure of the colon suggested by CT. GI and Surgery rounding Subjective Date/time seen: 07/29/22 14:31 Interval history: reprots urinary symptosmt marie, left scrotal pain and tenderness; no fever, chills. urinary cloudiness and burning sensation reported Review of Systems Review of Systems: All systems reviewed & are unremarkable except as noted in HPI and below Exam Narrative: Insert GENERAL: Well appearing, well-nourished NECK: Supple. No adenopathy, no masses. RESPIRATORY: Clear to auscultation bilaterally, no rales, rhonchi, wheezing. CARDIOVASCULAR: Regular rate and rhythm without murmurs, rubs, or gallops. ABDOMINAL: Soft, nontender, nondistended, no hepatosplenomegaly. Normoactive BS. MUSCULOSKELETAL: no Epigastric and no hypochondrial tenderness SKIN: Warm, dry, normal color. No rashes. NEURO: A&O X3. Moves all extremities PSYCHIATRIC: Appropriate mood and affect. Normal interaction. GENITOURINARY: tender left scrotum, sensitive to touch Objective Data Vital Signs Vital Signs: Vital Signs - 24 hr 07/28/22 20:44 07/28/22 20:47 07/28/22 21:27 Temperature 97.7 F Pulse Rate 74 74 68 Respiratory Rate 18 14 Blood Pressure 117/58 L Pulse Oximetry 92 97 Oxygen Delivery CPAP Fraction of Inspired Oxygen 07/28/22 20:00 07/29/22 05:31 07/29/22 08:51
[2022-07-29 16:36] LABS: Appearance Urine Slightly Cloudy (Clear); Bilirubin Urine Negative (Negative); Blood Urine Negative (Negative); Color Urine Yellow (Yellow); Glucose Urine UA Negative (Negative); Ketones Urine Negative (Negative); Leukocyte Esterase Ur 1+ LEU/UL (NEGATIVE); Nitrate Urine Negative (Negative); Protein Urine Negative (Negative); Specific Grav Ur 1.015 (1.001-1.035); Urobilinogen Urine 0.2 mg/dL (<2.0)
[2022-07-29 16:38] LABS: Bacteria Urine Trace /hpf; Mucus Urine Rare /lpf; Squamous Epithelial Cell Urine Rare /hpf (Few); WBC Urine 21-30 /hpf (0-3)
[2022-07-29 16:42] LABS: Add Urine Microscopic? YES
[2022-07-29 16:54] LABS: Glucose Point of Care 247 mg/dl (65-105)
[2022-07-29] MEDS: PRAMIPEXOLE 1 MG TABLET 2 MG BY MOUTH (17:06)
[2022-07-29 20:00] VITALS: PULSE 78; RESP 14; O2SAT 96
[2022-07-29 20:17] LABS: Glucose Point of Care 238 mg/dl (65-105)
[2022-07-29] MEDS: SENNA/DOCUSATE SODIUM TABLET 1 TAB PO (20:51)
[2022-07-29] MEDS: SPIRONOLACTONE 25 MG TABLET PO (20:51)
[2022-07-29 21:41] VITALS: BP 120/64; PULSE 71; RESP 14; TEMP 36.1; O2SAT 96
[2022-07-30] MEDS: LINACLOTIDE 145 MCG CAPSULE 290 MCG PO (05:38)
[2022-07-30 05:48] VITALS: BP 132/64; PULSE 72; RESP 14; TEMP 36.4; O2SAT 98
[2022-07-30 06:18] LABS: Basophils Percent Auto 0.6 % (0.2-1.2); Eosinophils Absolute Auto 0.3 K/mm3 (0-0.3); Eosinophils Percent Auto 4.3 % (0-4.4); Hematocrit 40.5 % (42.0-52.0); Hemoglobin 13.2 g/dL (14.0-18.0); Immature Granulocyte Absolute 0.03 K/mm3 (0.00-0.031); Immature Granulocyte Percent A 0.5 % (0-0.5); Lymphocytes Absolute Auto 1.15 K/mm3 (0.9-3.2); Lymphocytes Percent Auto 17.8 % (18.3-44.2); Mean Corpuscular HGB Conc 32.6 g/dl (32-36); Mean Corpuscular Hemoglobin 27.9 pg (26-34); Mean Corpuscular Volume 85.6 fl (80-100); Mean Platelet Volume 10.4 fl (7.4-10.4); Monocytes Absolute Auto 0.7 K/mm3 (0.1-0.6); Monocytes Percent Auto 10.2 % (2.6-8.5); Neutrophils Absolute Auto 4.3 K/mm3 (1.3-6.7); Neutrophils Percent Auto 66.6 % (45.5-73.1); Platelet Count Result 247 k/mm3 (150-375); Red Blood Count 4.73 M/mm3 (4.6-6.20); Red Cell Distribution Width 14.7 % (11.5-14.5); White Blood Count 6.5 K/mm3 (4.5-10.0)
[2022-07-30 06:30] LABS: Alanine Aminotransferase 44 U/L (6-50); Albumin Level 3.5 g/dL (3.5-5.1); Alkaline Phosphatase 219 U/L (38-126); Anion Gap 7 mmol/L (8-16); Aspartate Amino Transferase 31 U/L (17-59); Bilirubin,Total 0.4 mg/dL (0.2-1.3); Blood Urea Nitrogen 15 mg/dL (9-20); Carbon Dioxide 29 mmol/L (22-30); Chloride 98 mmol/L (98-107); Estimated CRCL calculation 133 ml/min; Estimated Glomerular Filt Rate > 60; Glucose 222 mg/dL (65-110); Magnesium 2.1 mg/dL (1.6-2.3); Potassium 3.5 mmol/L (3.4-5.0); Sodium 134 mmol/L (137-145)
[2022-07-30 07:58] VITALS: O2SAT 93
[2022-07-30] MEDS: FLUTICASONE/SALMETEROL 115-21 MCG INHALER 1 PUFF 2 PUFF INHALATION ×2 (07:58→20:14)
[2022-07-30 08:19] LABS: Glucose Point of Care 212 mg/dl (65-105)
[2022-07-30] MEDS: INSULIN ASPART (*BKC) 100 UNITS/ML SUB-Q ×3 (08:55→16:56)
[2022-07-30] MEDS: TORSEMIDE 20 MG TABLET 40 MG PO ×2 (08:59→16:59)
[2022-07-30] MEDS: CHOLECALCIFEROL 1,000 UNITS TABLET 1000 UNITS PO (08:59)
[2022-07-30] MEDS: PANTOPRAZOLE 40 MG TABLET BY MOUTH (08:59)
[2022-07-30] MEDS: MULTIVITAMINS THERAPEUTIC TAB (*BKC) 1 TABLET PO (08:59)
[2022-07-30] MEDS: LOSARTAN POTASSIUM 25 MG TABLET PO (08:59)
[2022-07-30] MEDS: allopurinoL 100 MG TABLET PO (08:59)
[2022-07-30] MEDS: POTASSIUM CHLORIDE 20 MEQ TABLET.ER 40 MEQ PO (08:59)
[2022-07-30] MEDS: PRAMIPEXOLE 1 MG TABLET BY MOUTH (08:59)
[2022-07-30] MEDS: BISACODYL 5 MG TABLET EC PO (09:00)
[2022-07-30] MEDS: TOLNAFTATE 1% POWDER 45 GM BTL 1 APPLIC TOPICAL ×2 (09:00→21:06)
[2022-07-30] MEDS: polyethylene glycoL 3350 17 GM POWD.PACK PO (09:00)
[2022-07-30] MEDS: INSULIN ASPART (*BKC) 100 UNITS/ML 11 UNITS SUB-Q ×2 (11:50→16:56)
[2022-07-30 11:51] LABS: Glucose Point of Care 219 mg/dl (65-105)
[2022-07-30 14:00] VITALS: BP 110/59; PULSE 67; RESP 20; TEMP 36.4; O2SAT 99
--- NOTE | 2022-07-30 14:01 | PM.IMPN ---
Progress Note: A&P Assessment and Plan (1) Epididymitis: Code(s): N45.1 - Epididymitis Status: Acute Assessment and Plan: Urine cultures and sensitivity. Klebsiella pneumoniae pt receiving iv antibiotics Rocephin day 9 Left scrotal area still photographer and swollen Ultrasound scrotum reviewed from 07/19/2022 Ultrasound scrotal repeat with no collections findings of epididymitis noted (2) Acute UTI: Code(s): N39.0 - Urinary tract infection, site not specified Status: Acute Assessment and Plan: Urine cultures and sensitivity. Klebsiella pneumoniae Pt receiving iv antibiotics Rocephin day 10 Acute epididymitis urology on consult Re-consult Urology reapperanace of urinary symptoms, Recheck urinalysis with findings of UTI noted await urine culture Continue on Rocephin (3) Diabetes type 2, controlled: Qualifiers: Diabetes mellitus jail insulin use: without intermediate accountant use Diabetes mellitus complication status: without complication Qualified Code(s): E11.9 - Type 2 diabetes mellitus without complications Code(s): E11.9 - Type 2 diabetes mellitus without complications Status: Acute Assessment and Plan: HBA1c 7.7 ( goal <7.0%) , Renal functions, Liver panel every 3 months Monitor vitamin B12 levels Optimize SHAZIA-inhibitor and statin Routine glucose monitoring. Watch for Hypoglycemia. BMI goal < 25 Sliding scale insulin. avoid Jardiance in future discussed with the patient and family due to recurrent UTIs (4) Acute diastolic CHF (congestive heart failure): Code(s): I50.31 - Acute diastolic (congestive) heart failure Status: Acute Assessment and Plan: Heart failure with preserved ejection fraction. EKG reviewed Chest x-ray reviewed TTE EF 60% 2021 (5) Morbid obesity: Code(s): E66.01 - Morbid (severe) obesity due to excess calories Status: Chronic (6) Urinary retention with incomplete bladder emptying: Code(s): R33.9 - Retention of urine, unspecified Status: Acute Assessment and Plan: Kurtz catheter due to urinary retention off now. for obstructive uropathy and pyelonephritis Pt has purewick catheter currently used to have suprapubi c catheter which has now been remvoed Check postvoid residual (7) Fecal impaction of colon: Code(s): K56.41 - Fecal impaction Status: Acute Assessment and Plan: continue laxatives Pt had kub and barium enema Contrast passes to the splenic flexure of the colon where there is stool. The transverse and ascending colon are distended, but not opacified by contrast. Hopefully this exam will relieve the stool impaction in the splenic flexure. Therapeutic enemas are recommended given the stercoral colitis in the hepatic flexure of the colon suggested by CT. GI and Surgery rounding Subjective Date/time seen: 07/30/22 14:01 Interval history: no new complaints. Continues to have urinary symptoms. Last scrotal pain and tenderness persist. Urine findings discussed with the patient and family. Review of Systems Review of Systems: All systems reviewed & are unremarkable except as noted in HPI and below Exam Narrative: Insert GENERAL: Well appearing, well-nourished NECK: Supple. No adenopathy, no masses. RESPIRATORY: Clear to auscultation bilaterally, no rales, rhonchi, wheezing. CARDIOVASCULAR: Regular rate and rhythm without murmurs, rubs, or gallops. ABDOMINAL: Soft, nontender, nondistended, no hepatosplenomegaly. Normoactive BS. MUSCULOSKELETAL: no Epigastric and no hypochondrial tenderness SKIN: Warm, dry, normal color. No rashes. NEURO: A&O X3. Moves all extremities PSYCHIATRIC: Appropriate mood and affect. Normal interaction. GENITOURINARY: tender left scrotum, sensitive to touch Objective Data Vital Signs Vital Signs: Vital Signs - 24 hr 07/29/22 21:41 07/29/22 20:00 07/30/22 05:48 Temperature 96.9 F L 97.6 F Pulse Rate 7
[2022-07-30] MEDS: cefTRIAXone 2 GM in SODIUM CHLORIDE 0.9% IV 100 ML 200 ML IVPB (14:40)
[2022-07-30 17:01] LABS: Glucose Point of Care 216 mg/dl (65-105)
[2022-07-30 20:00] VITALS: PULSE 64; RESP 18; O2SAT 98
[2022-07-30 20:05] LABS: Glucose Point of Care 167 mg/dl (65-105)
[2022-07-30 20:14] VITALS: PULSE 65; RESP 16; O2SAT 96
[2022-07-30] MEDS: SPIRONOLACTONE 25 MG TABLET PO (21:00)
[2022-07-30] MEDS: INSULIN GLARGINE (*BKC) 100 UNITS/ML 20 UNITS SUB-Q (21:00)
[2022-07-30] MEDS: PRAMIPEXOLE 1 MG TABLET 2 MG BY MOUTH (21:00)
[2022-07-30] MEDS: SENNA/DOCUSATE SODIUM TABLET 1 TAB PO (21:00)
[2022-07-30] MEDS: HYDROcodone/acetaminophen (*CRX) 5-325 MG TABLET 1 TAB PO (21:05)
[2022-07-30 22:00] VITALS: BP 109/78; PULSE 63; RESP 16; TEMP 36.4; O2SAT 98
[2022-07-31] MEDS: LINACLOTIDE 145 MCG CAPSULE 290 MCG PO (05:45)
[2022-07-31 06:00] VITALS: BP 124/65; PULSE 66; RESP 16; TEMP 36.6; O2SAT 95
[2022-07-31 06:19] LABS: Basophils Absolute Auto 0.1 K/mm3 (0.0-0.1); Basophils Percent Auto 0.7 % (0.2-1.2); Eosinophils Absolute Auto 0.2 K/mm3 (0-0.3); Eosinophils Percent Auto 3.1 % (0-4.4); Hematocrit 40.1 % (42.0-52.0); Hemoglobin 13.2 g/dL (14.0-18.0); Immature Granulocyte Absolute 0.05 K/mm3 (0.00-0.031); Immature Granulocyte Percent A 0.7 % (0-0.5); Lymphocytes Absolute Auto 1.29 K/mm3 (0.9-3.2); Lymphocytes Percent Auto 18.4 % (18.3-44.2); Mean Corpuscular HGB Conc 32.9 g/dl (32-36); Mean Corpuscular Hemoglobin 28.6 pg (26-34); Mean Platelet Volume 10.3 fl (7.4-10.4); Monocytes Absolute Auto 0.8 K/mm3 (0.1-0.6); Monocytes Percent Auto 10.7 % (2.6-8.5); Neutrophils Absolute Auto 4.7 K/mm3 (1.3-6.7); Neutrophils Percent Auto 66.4 % (45.5-73.1); Platelet Count Result 249 k/mm3 (150-375); Red Blood Count 4.61 M/mm3 (4.6-6.20); Red Cell Distribution Width 14.9 % (11.5-14.5)
[2022-07-31 06:31] LABS: Alanine Aminotransferase 49 U/L (6-50); Albumin Level 3.9 g/dL (3.5-5.1); Alkaline Phosphatase 241 U/L (38-126); Anion Gap 8 mmol/L (8-16); Aspartate Amino Transferase 33 U/L (17-59); Bilirubin,Total 0.5 mg/dL (0.2-1.3); Blood Urea Nitrogen 14 mg/dL (9-20); Calcium 9.1 mg/dL (8.4-10.2); Carbon Dioxide 28 mmol/L (22-30); Chloride 94 mmol/L (98-107); Estimated CRCL calculation 133 ml/min; Estimated Glomerular Filt Rate > 60; Glucose 166 mg/dL (65-110); Magnesium 2.1 mg/dL (1.6-2.3); Potassium 3.3 mmol/L (3.4-5.0); Sodium 130 mmol/L (137-145)
[2022-07-31 07:59] LABS: Glucose Point of Care 204 mg/dl (65-105)
[2022-07-31] MEDS: INSULIN ASPART (*BKC) 100 UNITS/ML SUB-Q (08:53)
[2022-07-31] MEDS: POTASSIUM CHLORIDE 20 MEQ TABLET 40 MEQ PO ×2 (08:54→13:36)
[2022-07-31] MEDS: INSULIN ASPART (*BKC) 100 UNITS/ML 11 UNITS SUB-Q ×3 (08:54→17:41)
[2022-07-31] MEDS: BISACODYL 5 MG TABLET EC PO (08:56)
[2022-07-31] MEDS: allopurinoL 100 MG TABLET PO (08:56)
[2022-07-31] MEDS: MULTIVITAMINS THERAPEUTIC TAB (*BKC) 1 TABLET PO (08:57)
[2022-07-31] MEDS: PRAMIPEXOLE 1 MG TABLET BY MOUTH (08:57)
[2022-07-31] MEDS: PANTOPRAZOLE 40 MG TABLET BY MOUTH (08:57)
[2022-07-31] MEDS: CHOLECALCIFEROL 1,000 UNITS TABLET 1000 UNITS PO (08:57)
[2022-07-31] MEDS: TOLNAFTATE 1% POWDER 45 GM BTL 1 APPLIC TOPICAL ×2 (08:58→20:11)
[2022-07-31] MEDS: LOSARTAN POTASSIUM 25 MG TABLET PO (08:58)
[2022-07-31] MEDS: TORSEMIDE 20 MG TABLET 40 MG PO ×2 (08:58→17:39)
[2022-07-31] MEDS: polyethylene glycoL 3350 17 GM POWD.PACK PO (08:58)
[2022-07-31] MEDS: POTASSIUM CHLORIDE 20 MEQ TABLET.ER 40 MEQ PO (09:18)
[2022-07-31] MEDS: FLUTICASONE/SALMETEROL 115-21 MCG INHALER 1 PUFF 2 PUFF INHALATION ×2 (09:42→21:33)
[2022-07-31 11:43] LABS: Glucose Point of Care 199 mg/dl (65-105)
[2022-07-31] MEDS: cefTRIAXone 2 GM in SODIUM CHLORIDE 0.9% IV 100 ML 200 ML IVPB (13:36)
[2022-07-31 14:00] VITALS: BP 102/69; PULSE 65; RESP 16; TEMP 36.6; O2SAT 94
--- NOTE | 2022-07-31 14:35 | PC.NURSE ---
Pt up in chair today. Pt questioning IV abx and if they are the right course of treatment. Pt states, The doctor is going to reach out to the physicians at [facility] and decide what kind of antibiotics I should be on. Pt is compliant with care and has participated and contributed in plan of care for this shift. Pt has no complaints and expresses no needs at this time. Pt A&O4. Will continue to monitor pt.
[2022-07-31] MEDS: ONDANSETRON INJ 4 MG/2 ML VIAL IV PUSH ×2 (15:49→20:02)
--- NOTE | 2022-07-31 15:49 | PM.IMPN ---
Progress Note: A&P Assessment and Plan (1) Epididymitis: Code(s): N45.1 - Epididymitis Status: Acute Assessment and Plan: Urine cultures and sensitivity. Klebsiella pneumoniae pt receiving iv antibiotics Rocephin day 9 Left scrotal area tea bag machine tender and swollen slowly improving Ultrasound scrotum reviewed from 07/19/2022 Ultrasound scrotal repeat with no collections findings of epididymitis noted (2) Acute UTI: Code(s): N39.0 - Urinary tract infection, site not specified Status: Acute Assessment and Plan: Urine cultures and sensitivity. Klebsiella pneumoniae Pt receiving iv antibiotics Rocephin day 10 Acute epididymitis urology on consult Re-consult Urology reapperanace of urinary symptoms, Recheck urinalysis with findings of UTI noted await urine culture Continue on Rocephin His urine culture repeat grew Klebsiella pneumoniae ESBL this time. Discussed with ID pharmacist. Also reached out to Infectious Disease specialist at [facility] today. He has currently no other option except for gentamicin for this ESBL Klebsiella pneumonia He is meropenem as well as sulfa off which are the only other antibiotics sensitive Will also check sensitivity for set for cefodirical and ceftazidime/avibactam. Which could be an option for ESBL multi drug-resistant bacteria (3) Diabetes type 2, controlled: Qualifiers: Diabetes mellitus complication status: without complication Diabetes mellitus custodial insulin use: without rug designer use Qualified Code(s): E11.9 - Type 2 diabetes mellitus without complications Code(s): E11.9 - Type 2 diabetes mellitus without complications Status: Acute Assessment and Plan: HBA1c 7.7 ( goal <7.0%) , Renal functions, Liver panel every 3 months Monitor vitamin B12 levels Optimize SHAZIA-inhibitor and statin Routine glucose monitoring. Watch for Hypoglycemia. BMI goal < 25 Sliding scale insulin. avoid Jardiance in future discussed with the patient and family due to recurrent UTIs (4) Acute diastolic CHF (congestive heart failure): Code(s): I50.31 - Acute diastolic (congestive) heart failure Status: Acute Assessment and Plan: Heart failure with preserved ejection fraction. EKG reviewed Chest x-ray reviewed TTE EF 60% 2021 (5) Morbid obesity: Code(s): E66.01 - Morbid (severe) obesity due to excess calories Status: Chronic (6) Urinary retention with incomplete bladder emptying: Code(s): R33.9 - Retention of urine, unspecified Status: Acute Assessment and Plan: Kurtz catheter due to urinary retention off now. for obstructive uropathy and pyelonephritis Pt has purewick catheter currently used to have suprapubic catheter which has now been remvoed Check postvoid residual only at 60 cc (7) Fecal impaction of colon: Code(s): K56.41 - Fecal impaction Status: Acute Assessment and Plan: continue laxatives Pt had kub and barium enema Contrast passes to the splenic flexure of the colon where there is stool. The transverse and ascending colon are distended, but not opacified by contrast. Hopefully this exam will relieve the stool impaction in the splenic flexure. Therapeutic enemas are recommended given the stercoral colitis in the hepatic flexure of the colon suggested by CT. GI and Surgery rounding Subjective Date/time seen: 07/31/22 15:49 Interval history: he states he is sore in his left scrotum . he hit on it accdientally as well. no fever, chills, sob, chest pain. Review of Systems Review of Systems: All systems reviewed & are unremarkable except as noted in HPI and below Exam Narrative: Insert GENERAL: Well appearing, well-nourished NECK: Supple. No adenopathy, no masses. RESPIRATORY: Clear to auscultation bilaterally, no rales, rhonchi, wheezing. CARDIOVASCULAR: Regular rate and rhythm without murmurs, rubs, or gallops. ABDOMINAL: So
[2022-07-31 16:40] LABS: Glucose Point of Care 190 mg/dl (65-105)
[2022-07-31] MEDS: DEXTROSE 5% IVPB (17:39)
[2022-07-31] MEDS: GENTAMICIN SULFATE IVPB (17:39)
[2022-07-31 19:58] LABS: Glucose Point of Care 172 mg/dl (65-105)
[2022-07-31 20:00] VITALS: PULSE 67; RESP 18; O2SAT 95
[2022-07-31] MEDS: SPIRONOLACTONE 25 MG TABLET PO (20:11)
[2022-07-31] MEDS: PRAMIPEXOLE 1 MG TABLET 2 MG BY MOUTH (20:11)
[2022-07-31] MEDS: INSULIN GLARGINE (*BKC) 100 UNITS/ML 20 UNITS SUB-Q (20:12)
[2022-07-31 21:17] VITALS: BP 126/69; PULSE 69; RESP 18; TEMP 35.9; O2SAT 96
[2022-07-31 21:38] VITALS: PULSE 67; O2SAT 95
[2022-08-01] VITALS (8 sets, daily range): BP systolic 106–136; BP diastolic 53–71; PULSE 59–68; RESP 14–22; TEMP 35.9–36.3; O2SAT 93–100
[2022-08-01 06:28] LABS: Basophils Absolute Auto 0.1 K/mm3 (0.0-0.1); Basophils Percent Auto 0.7 % (0.2-1.2); Eosinophils Absolute Auto 0.2 K/mm3 (0-0.3); Eosinophils Percent Auto 3.5 % (0-4.4); Hematocrit 41.4 % (42.0-52.0); Hemoglobin 13.2 g/dL (14.0-18.0); Immature Granulocyte Absolute 0.04 K/mm3 (0.00-0.031); Immature Granulocyte Percent A 0.6 % (0-0.5); Lymphocytes Percent Auto 16.2 % (18.3-44.2); Mean Corpuscular HGB Conc 31.9 g/dl (32-36); Mean Corpuscular Hemoglobin 27.9 pg (26-34); Mean Corpuscular Volume 87.5 fl (80-100); Mean Platelet Volume 10.5 fl (7.4-10.4); Monocytes Absolute Auto 0.7 K/mm3 (0.1-0.6); Neutrophils Absolute Auto 4.7 K/mm3 (1.3-6.7); Platelet Count Result 239 k/mm3 (150-375); Red Blood Count 4.73 M/mm3 (4.6-6.20); Red Cell Distribution Width 14.6 % (11.5-14.5); White Blood Count 6.8 K/mm3 (4.5-10.0)
[2022-08-01 06:40] LABS: Alanine Aminotransferase 52 U/L (6-50); Alkaline Phosphatase 235 U/L (38-126); Anion Gap 6 mmol/L (8-16); Aspartate Amino Transferase 34 U/L (17-59); Bilirubin,Total 0.6 mg/dL (0.2-1.3); Blood Urea Nitrogen 12 mg/dL (9-20); Calcium 9.2 mg/dL (8.4-10.2); Carbon Dioxide 32 mmol/L (22-30); Chloride 93 mmol/L (98-107); Estimated CRCL calculation 116 ml/min; Estimated Glomerular Filt Rate > 60; Glucose 165 mg/dL (65-110); Magnesium 2.1 mg/dL (1.6-2.3); Sodium 131 mmol/L (137-145)
[2022-08-01 06:48] LABS: Gentamicin Random 2.1 ug/mL (5.0-12.0)
[2022-08-01] MEDS: WATER FOR IRRIGATION, STERILE 1,000 ML BOTTLE 1000 ML (07:00)
[2022-08-01 07:44] LABS: Glucose Point of Care 170 mg/dl (65-105)
[2022-08-01] MEDS: PRAMIPEXOLE 1 MG TABLET BY MOUTH (08:07)
[2022-08-01] MEDS: PANTOPRAZOLE 40 MG TABLET BY MOUTH (08:07)
[2022-08-01] MEDS: allopurinoL 100 MG TABLET PO (08:08)
[2022-08-01] MEDS: MULTIVITAMINS THERAPEUTIC TAB (*BKC) 1 TABLET PO (08:08)
[2022-08-01] MEDS: LOSARTAN POTASSIUM 25 MG TABLET PO (08:08)
[2022-08-01] MEDS: CHOLECALCIFEROL 1,000 UNITS TABLET 1000 UNITS PO (08:08)
[2022-08-01] MEDS: TORSEMIDE 20 MG TABLET 40 MG PO ×2 (08:08→17:13)
[2022-08-01] MEDS: INSULIN ASPART (*BKC) 100 UNITS/ML 11 UNITS SUB-Q ×3 (08:10→17:13)
[2022-08-01] MEDS: POTASSIUM CHLORIDE 20 MEQ TABLET.ER 40 MEQ PO (08:10)
[2022-08-01] MEDS: FLUTICASONE/SALMETEROL 115-21 MCG INHALER 1 PUFF 2 PUFF INHALATION ×2 (09:47→21:07)
--- NOTE | 2022-08-01 10:15 | PCNWS ---
Weekly nutritional screen. Patient is tolerating current diabetic consistent carb diet with adequate intaken at 75-100% of meals. No weight loss reported. No nutritional needs at this time.
[2022-08-01] MEDS: TOLNAFTATE 1% POWDER 45 GM BTL 1 APPLIC TOPICAL ×2 (10:16→21:38)
--- NOTE | 2022-08-01 10:16 | WPDGIPROGNO ---
Progress Note: A&P Assessment and Plan (1) Constipation: Code(s): K59.00 - Constipation, unspecified Status: Acute Assessment and Plan: Patient with ongoing difficulties with constipation. Abdomen remains quite distended he is on multiple laxatives at present. Plan to repeat obstructive series. Follow-up Gastrografin lower GI may be necessary if the KUB fails to clarify cleansing of the stool. (2) Fecal impaction of colon: Code(s): K56.41 - Fecal impaction Status: Acute (3) Epididymitis: Code(s): N45.1 - Epididymitis Status: Acute Assessment and Plan: Ongoing scrotal infection. Patient remains on antibiotics. (4) Morbid obesity: Code(s): E66.01 - Morbid (severe) obesity due to excess calories Status: Chronic Subjective Date/time seen: 08/01/22 10:16 Interval history: Patient continues complain of abdominal distention. He has bowel movements but states they are ball like and with less control. Abdominal pain relieved with passing gas and flatus. Review of Systems Review of Systems: Review of systems noncontributory. Exam Narrative: Physical exam reveals patient be alert sitting upright bed. Lungs are clear. Heart without murmur. Abdomen distended bowel sounds present modestly tympanic. Extremities with out clubbing cyanosis or edema. Objective Data Vital Signs Vital Signs: Vital Signs - 24 hr 07/31/22 14:00 07/31/22 21:17 07/31/22 21:38 Temperature 97.9 F 96.7 F L Pulse Rate 65 69 Respiratory Rate 16 18 Blood Pressure 102/69 126/69 Pulse Oximetry 94 96 95 Oxygen Delivery Room Air Fraction of Inspired Oxygen 07/31/22 21:38 07/31/22 20:00 08/01/22 02:35 Temperature Pulse Rate 67 67 68 Respiratory Rate 18 Blood Pressure Pulse Oximetry 95 95 93 Oxygen Delivery CPAP CPAP CPAP Fraction of Inspired Oxygen 08/01/22 06:00 08/01/22 09:48 Temperature 97.4 F L Pulse Rate 59 L Respiratory Rate 14 Blood Pressure 136/71 Pulse Oximetry 100 95 Oxygen Delivery Room Air Fraction of Inspired Oxygen Intake/Output Intake/Output: Intake & Output 07/29/22 07/30/22 07/31/22 08/01/22 23:59 23:59 23:59 23:59 Intake Total 2320 2080 1380 787 Output Total 2692 142 5472 850 Balance 1220 1630 -1520 -63 Meds/Results Medications: Active Medications Generic Name Dose Route Start Last Admin Trade Name Freq PRN Reason Stop Dose Admin Acetaminophen 650 mg 07/19/22 09:54 07/28/22 17:23 Acetaminophen 325 Mg Tablet PO 650 mg Q4H PRN Administration Mild Pain (1-3) or Fever Hydrocodone Bitart/Acetaminophen 1 tab 07/30/22 17:42 07/30/22 21:05 Hydrocodone/Acetaminophen (*Crx) 5-325 Mg Tablet PO 1 tab Q4H PRN Administration Pain Rated 4-6 Albuterol 2 puff 07/19/22 14:37 Albuterol Sulfate (*Sp) Aerosol 1 Puff INHALATION PRN PRN shortness of breath Allopurinol 100 mg 07/20/22 09:00 08/01/22 08:08 Allopurinol 100 Mg Tablet PO 100 mg DAILY JARED Administration Bisacodyl 5 mg 07/26/22 09:00 08/01/22 08:09 Bisacodyl 5 Mg Tablet Ec PO Not Given DAILY JARED Dextrose 12.5 gm 07/19/22 14:01 Dextrose 50% 25 Gm/50 Ml Syringe IV PUSH PRN PRN Hypoglycemia Protocol Docusate Sodium 100 mg 07/21/22 17:40 07/21/22 18:20 Docusate Sodium 100 Mg Capsule PO 100 mg Q12H PRN Administration Constipation Glucagon 1 mg 07/19/22 14:01 Glucagon For Inj 1 Mg Vial IM PRN PRN Hypoglycemia Protocol Glucose 15 gm 07/19/22 14:01 Glucose Oral Gel 15 Gm Of Glucse In 37.5 Gm Tube PO PRN PRN Hypoglycemia Protocol Dextrose 1,000 mls @ 100 mls/hr 07/19/22 14:01 Dextrose 5% 1,000 Ml IVPB PRN PRN Hypoglycemia Protocol Gentamicin Sulfate 465 mg/ 111.625 mls @ 100 mls/hr 08/01/22 18:00 Dextrose IVPB DAILY@1800 [facility] Insulin Aspart 2 - 5 units 07/19/22 17:00 01
[2022-08-01 11:23] LABS: Glucose Point of Care 276 mg/dl (65-105)
[2022-08-01] MEDS: INSULIN ASPART (*BKC) 100 UNITS/ML SUB-Q (11:52)
[2022-08-01] MEDS: BISACODYL 5 MG TABLET EC PO (11:58)
[2022-08-01] MEDS: polyethylene glycoL 3350 17 GM POWD.PACK PO (11:58)
--- NOTE | 2022-08-01 14:31 | PM.IMPN ---
Progress Note: A&P Assessment and Plan (1) Epididymitis: Code(s): N45.1 - Epididymitis Status: Acute Assessment and Plan: Urine cultures and sensitivity. Klebsiella pneumoniae pt receiving iv antibiotics Rocephin day 9 Left scrotal area cloth finishing range back tender and swollen slowly improving Ultrasound scrotum reviewed from 07/19/2022 Ultrasound scrotal repeat with no collections findings of epididymitis noted (2) Acute UTI: Code(s): N39.0 - Urinary tract infection, site not specified Status: Acute Assessment and Plan: Urine cultures and sensitivity. Klebsiella pneumoniae Pt receiving iv antibiotics Rocephin Acute epididymitis urology on consult Re-consult Urology reapperanace of urinary symptoms, Recheck urinalysis with findings of UTI noted await urine culture Continue on Rocephin His urine culture repeat grew Klebsiella pneumoniae ESBL this time. Discussed with ID pharmacist. Also reached out to Infectious Disease specialist at [facility] today. He has currently no other option except for gentamicin for this ESBL Klebsiella pneumonia He is meropenem as well as sulfa off which are the only other antibiotics sensitive Will also check sensitivity for set for cefiderocol and ceftazidime/avibactam. Which could be an option for ESBL multi drug-resistant bacteria Started on gentamicin per protocol 2022. Gentamicin 0.1 today. Continue to suggested by pharmacy team Tentatively planning for 7 days course of treatment. 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 Watch for Hypoglycemia. BMI goal < 25 Sliding scale insulin. avoid Jardiance in future discussed with the patient and family due to recurrent UTIs (4) Acute diastolic CHF (congestive heart failure): Code(s): I50.31 - Acute diastolic (congestive) heart failure Status: Acute Assessment and Plan: Heart failure with preserved ejection fraction. EKG reviewed Chest x-ray reviewed TTE EF 60% 2021 (5) Morbid obesity: Code(s): E66.01 - Morbid (severe) obesity due to excess calories Status: Chronic (6) Urinary retention with incomplete bladder emptying: Code(s): R33.9 - Retention of urine, unspecified Status: Acute Assessment and Plan: Kurtz catheter due to urinary retention off now. for obstructive uropathy and pyelonephritis Pt has purewick catheter currently used to have suprapubic catheter which has now been remvoed Check postvoid residual only at 60 cc (7) Fecal impaction of colon: Code(s): K56.41 - Fecal impaction Status: Acute Assessment and Plan: continue laxatives Pt had kub and barium enema Contrast passes to the splenic flexure of the colon where there is stool. The transverse and ascending colon are distended, but not opacified by contrast. Hopefully this exam will relieve the stool impaction in the splenic flexure. Therapeutic enemas are recommended given the stercoral colitis in the hepatic flexure of the colon suggested by CT. GI and Surgery rounding Subjective Date/time seen: 08/01/22 14:31 Interval history: no overnight events, no nausea, vomiting. abdominal distension is present. having bm. urinary symptoms persist. labs reviewed. Review of Systems Review of Systems: All systems reviewed & are unremarkable except as noted in HPI and below Exam Narrative: Insert GENERAL: Well appearing, well-nourished NECK: Supple. No a
[2022-08-01] MEDS: ONDANSETRON INJ 4 MG/2 ML VIAL IV PUSH (16:19)
[2022-08-01 16:35] LABS: Glucose Point of Care 156 mg/dl (65-105)
[2022-08-01] MEDS: GENTAMICIN SULFATE IVPB (17:12)
[2022-08-01] MEDS: DEXTROSE 5% IVPB (17:12)
[2022-08-01 20:53] LABS: Glucose Point of Care 153 mg/dl (65-105)
[2022-08-01] MEDS: INSULIN GLARGINE (*BKC) 100 UNITS/ML 20 UNITS SUB-Q (21:36)
[2022-08-01] MEDS: SPIRONOLACTONE 25 MG TABLET PO (21:37)
[2022-08-01] MEDS: SENNA/DOCUSATE SODIUM TABLET 1 TAB PO (21:37)
[2022-08-01] MEDS: PRAMIPEXOLE 1 MG TABLET 2 MG BY MOUTH (21:37)
[2022-08-01] MEDS: HYDROcodone/acetaminophen (*CRX) 5-325 MG TABLET 1 TAB PO (21:50)
--- NOTE | 2022-08-01 22:44 | PCRCNOTE ---
placed pt on s-9 auto pap E6- I 25 PER PT WEARS HOME BIPAP BUT HE PULLED IT OFF THE SHELF AND IT CAUSED A SPARK DO TO FRADE CORD.. RN CALLED TO PLACE HIM ON OUR UNIT LOOKING AT HIS MACHINE LOOKS TO BE A BIPAP NOT SURE OF CURRENT SETTINGS
[2022-08-02 06:00] VITALS: BP 108/62; PULSE 65; RESP 16; TEMP 36.3; O2SAT 96
[2022-08-02 06:25] LABS: Basophils Percent Auto 0.5 % (0.2-1.2); Eosinophils Absolute Auto 0.2 K/mm3 (0-0.3); Eosinophils Percent Auto 3.8 % (0-4.4); Hematocrit 39.8 % (42.0-52.0); Immature Granulocyte Absolute 0.03 K/mm3 (0.00-0.031); Immature Granulocyte Percent A 0.5 % (0-0.5); Lymphocytes Absolute Auto 1.04 K/mm3 (0.9-3.2); Lymphocytes Percent Auto 16.6 % (18.3-44.2); Mean Corpuscular HGB Conc 32.7 g/dl (32-36); Mean Corpuscular Hemoglobin 28.3 pg (26-34); Mean Corpuscular Volume 86.5 fl (80-100); Mean Platelet Volume 10.7 fl (7.4-10.4); Monocytes Absolute Auto 0.7 K/mm3 (0.1-0.6); Monocytes Percent Auto 10.7 % (2.6-8.5); Neutrophils Absolute Auto 4.2 K/mm3 (1.3-6.7); Neutrophils Percent Auto 67.9 % (45.5-73.1); Platelet Count Result 239 k/mm3 (150-375); Red Cell Distribution Width 14.6 % (11.5-14.5); White Blood Count 6.3 K/mm3 (4.5-10.0)
[2022-08-02 06:34] LABS: Alanine Aminotransferase 50 U/L (6-50); Albumin Level 3.7 g/dL (3.5-5.1); Alkaline Phosphatase 243 U/L (38-126); Anion Gap 8 mmol/L (8-16); Aspartate Amino Transferase 31 U/L (17-59); Bilirubin,Total 0.6 mg/dL (0.2-1.3); Blood Urea Nitrogen 13 mg/dL (9-20); Calcium 8.9 mg/dL (8.4-10.2); Carbon Dioxide 30 mmol/L (22-30); Chloride 91 mmol/L (98-107); Estimated CRCL calculation 133 ml/min; Estimated Glomerular Filt Rate > 60; Glucose 141 mg/dL (65-110); Magnesium 2.1 mg/dL (1.6-2.3); Potassium 3.5 mmol/L (3.4-5.0); Sodium 129 mmol/L (137-145)
[2022-08-02] MEDS: LINACLOTIDE 145 MCG CAPSULE 290 MCG PO (06:59)
--- NOTE | 2022-08-02 07:53 | WPDGIPROGNO ---
Progress Note: A&P Assessment and Plan (1) Constipation: Code(s): K59.00 - Constipation, unspecified Status: Acute Assessment and Plan: Patient with constipation difficulties. Was felt to have fecal impaction near the hepatic flexure on presentation. Most recent KUB reveals air in the transverse colon. Previous Gastrografin lower GI contrast failed to reach the cecum. Plan to repeat Gastrografin lower GI. Continue laxatives on routine basis. 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 Ventral hernia followed by surgery is not felt interfere with bowel movements. (2) Fecal impaction of colon: Code(s): K56.41 - Fecal impaction Status: Acute Assessment and Plan: Likely resolved but patient continues to have distended abdomen. Plan for Gastrografin lower GI to ensure this is resolved. Continue laxatives on a routine basis. (3) Abnormal abdominal x-ray: Code(s): R93.5 - Abnormal findings on diagnostic imaging of other abdominal regions, including retroperitoneum Status: Acute (4) Epididymitis: Code(s): N45.1 - Epididymitis Status: Acute (5) Morbid obesity: Code(s): E66.01 - Morbid (severe) obesity due to excess calories Status: Chronic Subjective Date/time seen: 08/02/22 07:53 Interval history: Patient alert. Abdomen less distended today. Several bowel movements noted overnight. Patient states he has infrequent stools. Reports poor appetite. Review of Systems Review of Systems: Review of systems noncontributory. Exam Narrative: Physical exam reveals patient be alert sit rest comfortable. Abdomen less distended. Bowel sounds are present. Objective Data Vital Signs Vital Signs: Vital Signs - 24 hr 08/01/22 09:48 08/01/22 08:05 08/01/22 13:55 Temperature 96.6 F L Pulse Rate 61 Respiratory Rate 14 Blood Pressure 106/53 L Pulse Oximetry 95 98 Oxygen Delivery Room Air Room Air Fraction of Inspired Oxygen 08/01/22 21:08 08/01/22 22:37 08/01/22 22:00 Temperature 96.8 F L Pulse Rate 63 68 63 Respiratory Rate 16 22 H 18 Blood Pressure 122/69 Pulse Oximetry 93 98 Oxygen Delivery Autopap Fraction of Inspired Oxygen 08/01/22 20:00 Temperature Pulse Rate 68 Respiratory Rate 22 H Blood Pressure Pulse Oximetry 93 Oxygen Delivery Autopap Fraction of Inspired Oxygen 21 Intake/Output Intake/Output: Intake & Output 07/30/22 07/31/22 08/01/22 08/02/22 23:59 23:59 23:59 23:59 Intake Total 2080 1380 2178.625 Output Total 450 2900 2200 Balance 1630 -1520 -21.375 Meds/Results Medications: Active Medications Generic Name Dose Route Start Last Admin Trade Name Freq PRN Reason Stop Dose Admin Acetaminophen 650 mg 07/19/22 09:54 07/28/22 17:23 Acetaminophen 325 Mg Tablet PO 650 mg Q4H PRN Administration Mild Pain (1-3) or Fever Hydrocodone Bitart/Acetaminophen 1 tab 07/30/22 17:42 08/01/22 21:50 Hydrocodone/Acetaminophen (*Crx) 5-325 Mg Tablet PO 1 tab Q4H PRN Administration Pain Rated 4-6 Albuterol 2 puff 07/19/22 14:37 Albuterol Sulfate (*Sp) Aerosol 1 Puff INHALATION PRN PRN shortness of breath Allopurinol 100 mg 07/20/22 09:00 08/01/22 08:08 Allopurinol 100 Mg Tablet PO 100 mg DAILY JARED Administration Bisacodyl 5 mg 07/26/22 09:00 08/01/22 11:58 Bisacodyl 5 Mg Tablet Ec PO 5 mg DAILY JARED Administration Dextrose 12.5 gm 07/19/22 14:01 Dextrose 50% 25 Gm/50 Ml Syringe IV PUSH PRN PRN Hypoglycemia Protocol Docusate Sodium 100 mg 07/21/22 17:40 07/21/22 18:20 Docusate Sodium 100 Mg Capsule PO 100 mg Q12H PRN Administration Constipation Glucagon 1 mg 07/19/22 14:01 Glucagon For Inj 1 Mg Vial IM PRN PRN Hypoglycemia Protocol Glucose 15 gm 07/19/22 14:01 Glucose Oral Gel 15 Gm Of Glucse In 37.5 Gm Tube PO
[2022-08-02 08:30] VITALS: PULSE 63; RESP 18; O2SAT 95
[2022-08-02] MEDS: FLUTICASONE/SALMETEROL 115-21 MCG INHALER 1 PUFF 2 PUFF INHALATION ×2 (08:30→21:12)
[2022-08-02 08:51] LABS: Glucose Point of Care 164 mg/dl (65-105)
[2022-08-02] MEDS: TORSEMIDE 20 MG TABLET 40 MG PO ×2 (10:47→17:20)
[2022-08-02] MEDS: CHOLECALCIFEROL 1,000 UNITS TABLET 1000 UNITS PO (10:47)
[2022-08-02] MEDS: allopurinoL 100 MG TABLET PO (10:48)
[2022-08-02] MEDS: MULTIVITAMINS THERAPEUTIC TAB (*BKC) 1 TABLET PO (10:48)
[2022-08-02] MEDS: LOSARTAN POTASSIUM 25 MG TABLET PO (10:48)
[2022-08-02] MEDS: BISACODYL 5 MG TABLET EC PO (10:48)
[2022-08-02] MEDS: PRAMIPEXOLE 1 MG TABLET BY MOUTH (10:48)
[2022-08-02] MEDS: PANTOPRAZOLE 40 MG TABLET BY MOUTH (10:48)
[2022-08-02] MEDS: POTASSIUM CHLORIDE 20 MEQ TABLET.ER 40 MEQ PO (10:48)
[2022-08-02] MEDS: polyethylene glycoL 3350 17 GM POWD.PACK PO (10:49)
[2022-08-02] MEDS: TOLNAFTATE 1% POWDER 45 GM BTL 1 APPLIC TOPICAL ×2 (10:49→23:12)
[2022-08-02 12:12] LABS: Glucose Point of Care 194 mg/dl (65-105)
[2022-08-02] MEDS: INSULIN ASPART (*BKC) 100 UNITS/ML 11 UNITS SUB-Q ×2 (12:55→17:20)
[2022-08-02 14:00] VITALS: BP 102/60; PULSE 74; RESP 18; TEMP 35.9; O2SAT 100
--- NOTE | 2022-08-02 15:15 | PM.IMPN ---
Progress Note: A&P Assessment and Plan (1) Epididymitis: Code(s): N45.1 - Epididymitis Status: Acute Assessment and Plan: Urine cultures and sensitivity. 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 Klebsiella pneumoniae Pt receiving iv antibiotics Rocephin Acute epididymitis urology on consult Re-consult Urology reapperanace of urinary symptoms, Recheck urinalysis with findings of UTI noted await urine culture Continue on Rocephin His urine culture repeat grew Klebsiella pneumoniae ESBL this time. Discussed with ID pharmacist. Also reached out to Infectious Disease specialist at [facility] today. He has currently no other option except for gentamicin for this ESBL Klebsiella pneumonia He is meropenem as well as sulfa off which are the only other antibiotics sensitive Will also check sensitivity for set for cefiderocol and ceftazidime/avibactam. Which could be an option for ESBL multi drug-resistant bacteria Started on gentamicin per protocol 2022. Gentamicin 0.1 today. Continue to suggested by pharmacy team Tentatively planning for 7 days course of treatment. 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 Watch for Hypoglycemia. BMI goal < 25 Sliding scale insulin. avoid Jardiance in future discussed with the patient and family due to recurrent UTIs (4) Acute diastolic CHF (congestive heart failure): Code(s): I50.31 - Acute diastolic (congestive) heart failure Status: Acute Assessment and Plan: Heart failure with preserved ejection fraction. EKG reviewed Chest x-ray reviewed TTE EF 60% 2021 (5) Morbid obesity: Code(s): E66.01 - Morbid (severe) obesity due to excess calories Status: Chronic (6) Urinary retention with incomplete bladder emptying: Code(s): R33.9 - Retention of urine, unspecified Status: Acute Assessment and Plan: Kurtz catheter due to urinary retention off now. for obstructive uropathy and pyelonephritis Pt has purewick catheter currently used to have suprapubic catheter which has now been remvoed Check postvoid residual only at 60 cc (7) Fecal impaction of colon: Code(s): K56.41 - Fecal impaction Status: Acute Assessment and Plan: continue laxatives Pt had kub and barium enema Contrast passes to the splenic flexure of the colon where there is stool. The transverse and ascending colon are distended, but not opacified by contrast. Hopefully this exam will relieve the stool impaction in the splenic flexure. Therapeutic enemas are recommended given the stercoral colitis in the hepatic flexure of the colon suggested by CT. GI and Surgery rounding Plan ? Epididymitis: ?Code(s): N45.1 - Epididymitis ?Status:?Acute ?Assessment and Plan: Urine cultures and sensitivity.? 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
[2022-08-02] MEDS: ONDANSETRON INJ 4 MG/2 ML VIAL IV PUSH (15:20)
[2022-08-02 16:45] LABS: Glucose Point of Care 187 mg/dl (65-105)
[2022-08-02] MEDS: DEXTROSE 5% IVPB (17:20)
[2022-08-02] MEDS: GENTAMICIN SULFATE IVPB (17:20)
[2022-08-02] MEDS: SENNA/DOCUSATE SODIUM TABLET 1 TAB PO (20:35)
[2022-08-02] MEDS: SPIRONOLACTONE 25 MG TABLET PO (20:35)
[2022-08-02] MEDS: INSULIN GLARGINE (*BKC) 100 UNITS/ML 20 UNITS SUB-Q (20:36)
[2022-08-02] MEDS: PRAMIPEXOLE 1 MG TABLET 2 MG BY MOUTH (20:36)
[2022-08-02] MEDS: HYDROcodone/acetaminophen (*CRX) 5-325 MG TABLET 1 TAB PO (20:51)
[2022-08-02 21:03] LABS: Glucose Point of Care 144 mg/dl (65-105)
[2022-08-02 21:13] VITALS: O2SAT 95
[2022-08-02] MEDS: WATER FOR IRRIGATION, STERILE 1,000 ML BOTTLE 1000 ML (21:36)
[2022-08-02 22:00] VITALS: BP 93/68; PULSE 62; RESP 18; TEMP 36.1; O2SAT 94
[2022-08-03 06:00] VITALS: BP 120/68; PULSE 60; RESP 20; TEMP 36.6; O2SAT 99
[2022-08-03] MEDS: LINACLOTIDE 145 MCG CAPSULE 290 MCG PO (06:01)
[2022-08-03] MEDS: ONDANSETRON INJ 4 MG/2 ML VIAL IV PUSH ×2 (06:07→11:45)
[2022-08-03 06:43] LABS: Estimated CRCL calculation 102 ml/min; Estimated Glomerular Filt Rate > 60
[2022-08-03 08:04] LABS: Glucose Point of Care 178 mg/dl (65-105)
[2022-08-03 08:12] LABS: Anion Gap 9 mmol/L (8-16); Blood Urea Nitrogen 12 mg/dL (9-20); Calcium 8.9 mg/dL (8.4-10.2); Carbon Dioxide 30 mmol/L (22-30); Chloride 96 mmol/L (98-107); Estimated CRCL calculation 116 ml/min; Estimated Glomerular Filt Rate > 60; Glucose 139 mg/dL (65-110); Potassium 3.3 mmol/L (3.4-5.0); Sodium 135 mmol/L (137-145)
--- NOTE | 2022-08-03 08:36 | WPDGIPROGNO ---
Progress Note: A&P Assessment and Plan (1) Constipation: Code(s): K59.00 - Constipation, unspecified Status: Acute Assessment and Plan: Patient with ongoing constipation. Gastrografin lower GI performed yesterday reveals no obstruction no narrowing of the colon. Previous fecal impaction now resolved. Contrast easily passes to the cecum. Large amount of stool noted in colon. Patient had a large bowel movement after procedure. Plan to continue Linzess daily. Supplement this with MiraLax or similar laxative if needed. Nausea likely related to her is constipation but may also be related to current medications. 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 He states this intensified after water soluble contrast enema obtained yesterday. Multiple bowel movements. Noted overnight. Review of Systems Review of Systems: Review of systems noncontributory. Exam Narrative: Physical exam reveals patient be alert comfortable at rest sitting in chair. HEENT exam unremarkable. Patient is afebrile and anicteric. Lungs reveal rhonchi. Heart without murmur. Abdomen is obese. Bowel sounds present soft no localized tenderness. Objective Data Vital Signs Vital Signs: Vital Signs - 24 hr 08/02/22 14:00 08/02/22 22:00 08/02/22 21:13 Temperature 96.7 F L 97 F L Pulse Rate 74 62 Respiratory Rate 18 18 Blood Pressure 102/60 93/68 L Pulse Oximetry 100 94 95 Oxygen Delivery Room Air 08/03/22 06:00 Temperature 97.9 F Pulse Rate 60 Respiratory Rate 20 Blood Pressure 120/68 Pulse Oximetry 99 Oxygen Delivery Intake/Output Intake/Output: Intake & Output 07/31/22 08/01/22 08/02/22 08/03/22 23:59 23:59 23:59 23:59 Intake Total 1380 2178.625 2770 611.625 Output Total 2900 2200 2500 Balance -1520 -21.375 270 611.625 Meds/Results Medications: Active Medications Generic Name Dose Route Start Last Admin Trade Name Freq PRN Reason Stop Dose Admin Acetaminophen 650 mg 07/19/22 09:54 07/28/22 17:23 Acetaminophen 325 Mg Tablet PO 650 mg Q4H PRN Administration Mild Pain (1-3) or Fever Hydrocodone Bitart/Acetaminophen 1 tab 07/30/22 17:42 08/02/22 20:51 Hydrocodone/Acetaminophen (*Crx) 5-325 Mg Tablet PO 1 tab Q4H PRN Administration Pain Rated 4-6 Albuterol 2 puff 07/19/22 14:37 Albuterol Sulfate (*Sp) Aerosol 1 Puff INHALATION PRN PRN shortness of breath Allopurinol 100 mg 07/20/22 09:00 08/02/22 10:48 Allopurinol 100 Mg Tablet PO 100 mg DAILY JARED Administration Bisacodyl 5 mg 07/26/22 09:00 08/02/22 10:48 Bisacodyl 5 Mg Tablet Ec PO 5 mg DAILY JARED Administration Dextrose 12.5 gm 07/19/22 14:01 Dextrose 50% 25 Gm/50 Ml Syringe IV PUSH PRN PRN Hypoglycemia Protocol Docusate Sodium 100 mg 07/21/22 17:40 07/21/22 18:20 Docusate Sodium 100 Mg Capsule PO 100 mg Q12H PRN Administration Constipation Enoxaparin Sodium 40 mg 08/03/22 09:00 Enoxaparin 40 Mg/0.4 Ml Syringe SUB-Q DAILY JARED Glucagon 1 mg 07/19/22 14:01 Glucagon For Inj 1 Mg Vial IM PRN PRN Hypoglycemia Protocol Glucose 15 gm 07/19/22 14:01 Glucose Oral Gel 15 Gm Of Glucse In 37.5 Gm Tube PO PRN PRN Hypoglycemia Protocol Dextrose 1,000 mls @ 100 mls/hr 07/19/22 14:01 Dextrose 5% 1,000 Ml IVPB PRN PRN Hypoglycemia Protocol Gentamicin Sulfate 465 mg/ 111.625 mls @ 100 mls/hr 08/01/22 18:00 08/03/22 07:58 Dextros
[2022-08-03] MEDS: FLUTICASONE/SALMETEROL 115-21 MCG INHALER 1 PUFF 2 PUFF INHALATION (09:16)
[2022-08-03 09:20] VITALS: PULSE 81; O2SAT 97
[2022-08-03] MEDS: ENOXAPARIN 40 MG/0.4 ML SYRINGE SUB-Q (09:20)
[2022-08-03] MEDS: PRAMIPEXOLE 1 MG TABLET BY MOUTH (09:21)
[2022-08-03] MEDS: polyethylene glycoL 3350 17 GM POWD.PACK PO (09:21)
[2022-08-03] MEDS: MULTIVITAMINS THERAPEUTIC TAB (*BKC) 1 TABLET PO (09:21)
[2022-08-03] MEDS: BISACODYL 5 MG TABLET EC PO (09:21)
[2022-08-03] MEDS: POTASSIUM CHLORIDE 20 MEQ TABLET.ER 40 MEQ PO (09:21)
[2022-08-03] MEDS: CHOLECALCIFEROL 1,000 UNITS TABLET 1000 UNITS PO (09:21)
[2022-08-03] MEDS: PANTOPRAZOLE 40 MG TABLET BY MOUTH (09:21)
[2022-08-03] MEDS: TORSEMIDE 20 MG TABLET 40 MG PO ×2 (09:21→17:27)
[2022-08-03] MEDS: allopurinoL 100 MG TABLET PO (09:21)
[2022-08-03] MEDS: LOSARTAN POTASSIUM 25 MG TABLET PO (09:21)
[2022-08-03] MEDS: INSULIN ASPART (*BKC) 100 UNITS/ML 11 UNITS SUB-Q ×3 (09:22→17:27)
[2022-08-03] MEDS: TOLNAFTATE 1% POWDER 45 GM BTL 1 APPLIC TOPICAL ×2 (09:22→21:05)
[2022-08-03 12:17] LABS: Glucose Point of Care 148 mg/dl (65-105)
[2022-08-03 14:00] VITALS: BP 100/70; PULSE 66; RESP 16; TEMP 35.9; O2SAT 100
[2022-08-03 16:32] LABS: Glucose Point of Care 104 mg/dl (65-105)
--- NOTE | 2022-08-03 17:11 | PM.IMPN ---
Progress Note: A&P Assessment and Plan (1) Epididymitis: Code(s): N45.1 - Epididymitis Status: Acute Assessment and Plan: Urine cultures and sensitivity. Klebsiella pneumoniae pt receiving iv antibiotics Rocephin day 9 Left scrotal area back tender fourdrinier and swollen slowly improving Ultrasound scrotum reviewed from 07/19/2022 Ultrasound scrotal repeat with no collections findings of epididymitis noted (2) Acute UTI: Code(s): N39.0 - Urinary tract infection, site not specified Status: Acute Assessment and Plan: Epididymitis: Urine cultures and sensitivity.? Klebsiella pneumoniae pt receiving iv antibiotics?Rocephin discontinued Left scrotal area back tender fourdrinier and swollen slowly improving Ultrasound scrotum reviewed from 07/19/2022 Ultrasound scrotal repeat with no collections findings of epididymitis noted On Gentamycin (2) Acute UTI: ?Code(s): N39.0 - Urinary tract infection, site not specified ?Status:?Acute ?Assessment and Plan: Urine cultures and sensitivity.? Klebsiella pneumoniae s/p [place] reapperanace of urinary symptoms, ? Recheck urinalysis with findings of UTI noted await urine culture Continue on Rocephin His urine culture repeat grew Klebsiella pneumoniae ESBL this time.? Discussed with ID pharmacist.? Also reached out to Infectious Disease specialist at [facility] today.? He has currently no other option except for gentamicin for this ESBL Klebsiella pneumonia He is allergic to? meropenem as well as sulfa off which are the only other antibiotics sensitive Will also check sensitivity for set for cefiderocol and ceftazidime/avibactam.? Which could be an option for ESBL multi drug-resistant bacteria Started on gentamicin per protocol 2022.? Gentamicin 0.1 today.? Discussed with pID paharmacy and they are following levels and monitoring and adjusting dosing Tentatively planning for 7 days course of treatment, day 4 ? 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 Qualified Code(s):?E11.9 - Type 2 diabetes mellitus without complications ?Code(s): E11.9 - Type 2 diabetes mellitus without complications ?Status:?Acute ?Assessment and Plan: HBA1c? 7.7?( goal <7.0%) , Renal functions, Liver panel every 3 months Monitor vitamin B12 levels Optimize SHAZIA-inhibitor and statin Routine glucose monitoring. Watch for Hypoglycemia. BMI goal < 25 Sliding scale insulin.? ?avoid Jardiance in future discussed with the patient and family due to recurrent UTIs (4) Acute diastolic CHF (congestive heart failure): Heart failure with preserved ejection fraction. EKG reviewed Chest x-ray reviewed TTE? EF 60% 2021 (5) Morbid obesity: ?Code(s): E66.01 - Morbid (severe) obesity due to excess calories ?Status:?Chronic (6) Urinary retention with incomplete bladder emptying: ?Code(s): R33.9 - Retention of urine, unspecified ?Status:?Acute ?Assessment and Plan: ?Kurtz catheter due to urinary retention off now. ?for obstructive uropathy and pyelonephritis Pt has purewick catheter currently used to have suprapubic catheter which has now been remvoed Check postvoid residual only at 60 cc (7) Fecal impaction of colon: ?Code(s): K56.41 - Fecal impaction ?Status:?Acute ?Assessment and Plan: continue laxatives Pt had kub and barium enema Contrast passes to the splenic flexure of the colon where there is stool. The transverse and ascending colon are distended, but not opacified by contrast. Hopefully this exam will relieve the stool impaction in the splenic flexure. Therapeutic enemas are recommended given the stercoral colitis in the hepatic flexure of the colon suggested by CT. GI and Surgery rounding DVT prophylaxis Sq Lovenox (3) Nruia
[2022-08-03] MEDS: DEXTROSE 5% IVPB (17:24)
[2022-08-03] MEDS: GENTAMICIN SULFATE IVPB (17:24)
[2022-08-03] MEDS: ARTIFICIAL TEARS OPHTH SOLN 15 ML BOTTLE 1 DROP EACH EYE (17:28)
[2022-08-03 20:08] LABS: Glucose Point of Care 333 mg/dl (65-105)
[2022-08-03] MEDS: INSULIN GLARGINE (*BKC) 100 UNITS/ML 20 UNITS SUB-Q (21:01)
[2022-08-03] MEDS: PRAMIPEXOLE 1 MG TABLET 2 MG BY MOUTH (21:05)
[2022-08-03] MEDS: SPIRONOLACTONE 25 MG TABLET PO (21:05)
[2022-08-03] MEDS: ACETAMINOPHEN 325 MG TABLET 650 MG PO (21:09)
[2022-08-03 21:20] VITALS: PULSE 68; RESP 16
[2022-08-03 22:00] VITALS: BP 104/48; PULSE 84; RESP 18; TEMP 35.8; O2SAT 96
[2022-08-04 06:00] VITALS: BP 111/60; PULSE 68; RESP 14; TEMP 35.9; O2SAT 100
[2022-08-04 06:22] LABS: Basophils Percent Auto 0.7 % (0.2-1.2); Eosinophils Absolute Auto 0.2 K/mm3 (0-0.3); Eosinophils Percent Auto 3.1 % (0-4.4); Hematocrit 39.1 % (42.0-52.0); Hemoglobin 12.8 g/dL (14.0-18.0); Immature Granulocyte Absolute 0.03 K/mm3 (0.00-0.031); Immature Granulocyte Percent A 0.5 % (0-0.5); Lymphocytes Absolute Auto 1.08 K/mm3 (0.9-3.2); Lymphocytes Percent Auto 19.6 % (18.3-44.2); Mean Corpuscular HGB Conc 32.7 g/dl (32-36); Mean Corpuscular Hemoglobin 27.9 pg (26-34); Mean Corpuscular Volume 85.4 fl (80-100); Mean Platelet Volume 10.6 fl (7.4-10.4); Monocytes Absolute Auto 0.6 K/mm3 (0.1-0.6); Monocytes Percent Auto 10.9 % (2.6-8.5); Neutrophils Absolute Auto 3.6 K/mm3 (1.3-6.7); Neutrophils Percent Auto 65.2 % (45.5-73.1); Platelet Count Result 253 k/mm3 (150-375); Red Blood Count 4.58 M/mm3 (4.6-6.20); Red Cell Distribution Width 14.6 % (11.5-14.5); White Blood Count 5.5 K/mm3 (4.5-10.0)
[2022-08-04 06:33] LABS: Alanine Aminotransferase 47 U/L (6-50); Albumin Level 3.5 g/dL (3.5-5.1); Alkaline Phosphatase 242 U/L (38-126); Anion Gap 7 mmol/L (8-16); Aspartate Amino Transferase 34 U/L (17-59); Bilirubin,Total 0.6 mg/dL (0.2-1.3); Blood Urea Nitrogen 15 mg/dL (9-20); Calcium 8.9 mg/dL (8.4-10.2); Carbon Dioxide 31 mmol/L (22-30); Chloride 95 mmol/L (98-107); Estimated CRCL calculation 102 ml/min; Estimated Glomerular Filt Rate > 60; Glucose 146 mg/dL (65-110); Potassium 3.4 mmol/L (3.4-5.0); Sodium 133 mmol/L (137-145)
[2022-08-04] MEDS: LINACLOTIDE 145 MCG CAPSULE 290 MCG PO (06:33)
[2022-08-04] MEDS: ACETAMINOPHEN 325 MG TABLET 650 MG PO ×2 (06:35→14:31)
[2022-08-04 07:00] LABS: Glucose Point of Care 138 mg/dl (65-105)
[2022-08-04 08:02] LABS: Glucose Point of Care 146 mg/dl (65-105)
[2022-08-04 08:14] LABS: Gentamicin Random 3.3 ug/mL (5.0-12.0)
[2022-08-04] MEDS: FLUTICASONE/SALMETEROL 115-21 MCG INHALER 1 PUFF 2 PUFF INHALATION ×2 (08:50→20:43)
[2022-08-04 08:53] VITALS: PULSE 65; RESP 18; O2SAT 95
[2022-08-04] MEDS: BISACODYL 5 MG TABLET EC PO (09:11)
[2022-08-04] MEDS: POTASSIUM CHLORIDE 20 MEQ TABLET.ER 40 MEQ PO (09:11)
[2022-08-04] MEDS: PANTOPRAZOLE 40 MG TABLET BY MOUTH (09:11)
[2022-08-04] MEDS: allopurinoL 100 MG TABLET PO (09:11)
[2022-08-04] MEDS: TORSEMIDE 20 MG TABLET 40 MG PO ×2 (09:11→17:42)
[2022-08-04] MEDS: CHOLECALCIFEROL 1,000 UNITS TABLET 1000 UNITS PO (09:11)
[2022-08-04] MEDS: LOSARTAN POTASSIUM 25 MG TABLET PO (09:12)
[2022-08-04] MEDS: PRAMIPEXOLE 1 MG TABLET BY MOUTH (09:12)
[2022-08-04] MEDS: MULTIVITAMINS THERAPEUTIC TAB (*BKC) 1 TABLET PO (09:12)
[2022-08-04] MEDS: TOLNAFTATE 1% POWDER 45 GM BTL 1 APPLIC TOPICAL ×2 (09:12→22:10)
[2022-08-04] MEDS: ENOXAPARIN 40 MG/0.4 ML SYRINGE SUB-Q (09:13)
[2022-08-04] MEDS: INSULIN ASPART (*BKC) 100 UNITS/ML 11 UNITS SUB-Q ×2 (09:14→12:07)
[2022-08-04 11:39] LABS: Glucose Point of Care 210 mg/dl (65-105)
[2022-08-04] MEDS: INSULIN ASPART (*BKC) 100 UNITS/ML SUB-Q (12:06)
[2022-08-04 14:00] VITALS: BP 108/68; PULSE 66; RESP 18; TEMP 36.6; O2SAT 97
--- NOTE | 2022-08-04 15:50 | PM.IMPN ---
Progress Note: A&P Assessment and Plan (1) Epididymitis: Code(s): N45.1 - Epididymitis Status: Acute Assessment and Plan: Urine cultures and sensitivity. 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 Klebsiella pneumoniae pt receiving iv antibiotics?Rocephin discontinued Left scrotal area milled rubber tender and swollen slowly improving Ultrasound scrotum reviewed from 07/19/2022 Ultrasound scrotal repeat with no collections findings of epididymitis noted On Gentamycin, Day 5 Gentamycin trough level <1 Continue monitoring (2) Acute UTI: Urine cultures and sensitivity.? Klebsiella pneumoniae s/p [place] reapperanace of urinary symptoms, ? Recheck urinalysis with findings of UTI noted await urine culture Continue on Rocephin His urine culture repeat grew Klebsiella pneumoniae ESBL this time.? Discussed with ID pharmacist.? Also reached out to Infectious Disease specialist at [facility] today.? He has currently no other option except for gentamicin for this ESBL Klebsiella pneumonia He is allergic to? meropenem as well as sulfa off which are the only other antibiotics sensitive Will also check sensitivity for set for cefiderocol and ceftazidime/avibactam.? Which could be an option for ESBL multi drug-resistant bacteria Started on gentamicin per protocol 2022.? Gentamicin 0.1 today.? Discussed with pID paharmacy and they are following levels and monitoring and adjusting dosing Tentatively planning for 7 days course of treatment, day 4 ? Monitor renal function Hyponatremia, resolved Na 135 monitor Diabetes type 2, controlled: HBA1c? 7.7?( goal <7.0%) , Renal functions, Liver panel every 3 months Monitor vitamin B12 levels Optimize SHAZIA-inhibitor and statin Routine glucose monitoring. Watch for Hypoglycemia. BMI goal < 25 Sliding scale insulin.? ?avoid Jardiance in future discussed with the patient and family due to recurrent UTIs (4) Acute diastolic CHF (congestive heart failure): Heart failure with preserved ejection fraction. EKG reviewed Chest x-ray reviewed TTE? EF 60% 2021 (5) Morbid obesity: ??Kurtz catheter due to urinary retention off now. ?for obstructive uropathy and pyelonephritis Pt has purewick catheter currently used to have suprapubic catheter which has now been remvoed Check postvoid residual only at 60 cc (7) Fecal impaction of colon: continue laxatives Pt had kub and barium enema Contrast passes to the splenic flexure of the colon where there is stool. The transverse and ascending colon are distended, but not opacified by contrast. Hopefully this exam will relieve the stool impaction in the splenic flexure. Therapeutic enemas are recommended given the stercoral colitis in the hepatic flexure of the colon suggested by CT. 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 Watch for Hypoglycemia. BMI goal < 25 Sliding scale insulin. avoid Jardiance in future discussed with the patient and family due to recurrent UTIs (4) Acute diastolic CHF (congestive heart failure):
[2022-08-04 16:46] LABS: Gentamicin Trough 0.9 ug/mL (<1.0)
[2022-08-04 16:59] LABS: Glucose Point of Care 89 mg/dl (65-105)
[2022-08-04 21:58] LABS: Glucose Point of Care 342 mg/dl (65-105)
[2022-08-04 22:00] VITALS: BP 117/65; PULSE 66; RESP 16; TEMP 36.1; O2SAT 96
[2022-08-04] MEDS: SENNA/DOCUSATE SODIUM TABLET 1 TAB PO (22:07)
[2022-08-04] MEDS: PRAMIPEXOLE 1 MG TABLET 2 MG BY MOUTH (22:08)
[2022-08-04] MEDS: SPIRONOLACTONE 25 MG TABLET PO (22:09)
[2022-08-04] MEDS: INSULIN GLARGINE (*BKC) 100 UNITS/ML 20 UNITS SUB-Q (22:17)
[2022-08-04] MEDS: HYDROcodone/acetaminophen (*CRX) 5-325 MG TABLET 1 TAB PO (22:18)
[2022-08-05 06:00] VITALS: BP 128/63; PULSE 62; RESP 16; TEMP 36.3; O2SAT 98
[2022-08-05] MEDS: GENTAMICIN SULFATE IVPB (06:21)
[2022-08-05] MEDS: DEXTROSE 5% IVPB (06:21)
[2022-08-05] MEDS: LINACLOTIDE 145 MCG CAPSULE 290 MCG PO (06:28)
[2022-08-05 08:06] LABS: Glucose Point of Care 187 mg/dl (65-105)
[2022-08-05] MEDS: CHOLECALCIFEROL 1,000 UNITS TABLET 1000 UNITS PO (08:43)
[2022-08-05] MEDS: BISACODYL 5 MG TABLET EC PO (08:43)
[2022-08-05] MEDS: LOSARTAN POTASSIUM 25 MG TABLET PO (08:43)
[2022-08-05] MEDS: PANTOPRAZOLE 40 MG TABLET BY MOUTH (08:43)
[2022-08-05] MEDS: polyethylene glycoL 3350 17 GM POWD.PACK PO (08:43)
[2022-08-05] MEDS: POTASSIUM CHLORIDE 20 MEQ TABLET.ER 40 MEQ PO (08:43)
[2022-08-05] MEDS: ENOXAPARIN 40 MG/0.4 ML SYRINGE SUB-Q (08:43)
[2022-08-05] MEDS: allopurinoL 100 MG TABLET PO (08:43)
[2022-08-05] MEDS: TORSEMIDE 20 MG TABLET 40 MG PO ×2 (08:43→16:36)
[2022-08-05] MEDS: MULTIVITAMINS THERAPEUTIC TAB (*BKC) 1 TABLET PO (08:43)
[2022-08-05] MEDS: TOLNAFTATE 1% POWDER 45 GM BTL 1 APPLIC TOPICAL ×2 (08:44→21:53)
[2022-08-05] MEDS: PRAMIPEXOLE 1 MG TABLET BY MOUTH (08:44)
[2022-08-05] MEDS: INSULIN ASPART (*BKC) 100 UNITS/ML 11 UNITS SUB-Q ×2 (08:45→12:20)
[2022-08-05] MEDS: FLUTICASONE/SALMETEROL 115-21 MCG INHALER 1 PUFF 2 PUFF INHALATION ×2 (09:23→20:30)
[2022-08-05 09:24] VITALS: O2SAT 96
[2022-08-05 11:18] LABS: Alanine Aminotransferase 57 U/L (6-50); Albumin Level 4.4 g/dL (3.5-5.1); Alkaline Phosphatase 284 U/L (38-126); Anion Gap 9 mmol/L (8-16); Aspartate Amino Transferase 35 U/L (17-59); Bilirubin,Total 0.7 mg/dL (0.2-1.3); Blood Urea Nitrogen 15 mg/dL (9-20); Calcium 9.3 mg/dL (8.4-10.2); Carbon Dioxide 28 mmol/L (22-30); Chloride 94 mmol/L (98-107); Estimated CRCL calculation 116 ml/min; Estimated Glomerular Filt Rate > 60; Glucose 172 mg/dL (65-110); Potassium 3.5 mmol/L (3.4-5.0); Sodium 131 mmol/L (137-145)
[2022-08-05 11:47] LABS: Glucose Point of Care 148 mg/dl (65-105)
--- NOTE | 2022-08-05 13:54 | PM.IMPN ---
Progress Note: A&P Assessment and Plan (1) Epididymitis: Code(s): N45.1 - Epididymitis Status: Acute Assessment and Plan: Urine cultures and sensitivity. Klebsiella pneumoniae pt receiving iv antibiotics Rocephin day 9 Left scrotal area pump and still operator and swollen slowly improving Ultrasound scrotum reviewed from 07/19/2022 Ultrasound scrotal repeat with no collections findings of epididymitis noted (2) Acute UTI: Code(s): N39.0 - Urinary tract infection, site not specified Status: Acute Assessment and Plan: Epididymitis: Urine cultures and sensitivity.? Klebsiella pneumoniae ESBL pt receiving iv antibiotics?Rocephin discontinued Left scrotal area pump and still operator and swollen slowly improving Ultrasound scrotum reviewed from 07/19/2022 Ultrasound scrotal repeat with no collections findings of epididymitis noted On Gentamycin, Day 6 Gentamycin trough level <1 Continue monitoring (2) Acute UTI: Urine cultures and sensitivity.? Klebsiella pneumoniae s/p Rocpehin reapperanace of urinary symptoms, ? Recheck urinalysis with findings of UTI noted await urine culture Continue on Rocephin His urine culture repeat grew Klebsiella pneumoniae ESBL this time.? Discussed with ID pharmacist.? Also reached out to Infectious Disease specialist at [facility] He has currently no other option except for gentamicin for this ESBL Klebsiella pneumonia He is allergic to? meropenem as well as sulfa off which are the only other antibiotics sensitive Will also check sensitivity for set for cefiderocol and ceftazidime/avibactam.? Which could be an option for ESBL multi drug-resistant bacteria Started on gentamicin per protocol 2022 Discussed with pID paharmacy and they are following levels and monitoring and adjusting dosing Tentatively planning for 7 days course of treatment, day 6 ? Monitor renal function Hyponatremia, resolved Na 135 monitor Diabetes type 2, controlled: HBA1c? 7.7?( goal <7.0%) , Renal functions, Liver panel every 3 months Monitor vitamin B12 levels Optimize SHAZIA-inhibitor and statin Routine glucose monitoring. Watch for Hypoglycemia. BMI goal < 25 Sliding scale insulin.? ?avoid Jardiance in future discussed with the patient and family due to recurrent UTIs (4) Acute diastolic CHF (congestive heart failure): Heart failure with preserved ejection fraction. EKG reviewed Chest x-ray reviewed TTE? EF 60% 2021 (5) Morbid obesity: ??Kurtz catheter due to urinary retention off now. ?for obstructive uropathy and pyelonephritis Pt has purewick catheter currently used to have suprapubic catheter which has now been remvoed Check postvoid residual only at 60 cc (7) Fecal impaction of colon: continue laxatives Pt had kub and barium enema Contrast passes to the splenic flexure of the colon where there is stool. The transverse and ascending colon are distended, but not opacified by contrast. Hopefully this exam will relieve the stool impaction in the splenic flexure. Therapeutic enemas are recommended given the stercoral colitis in the hepatic flexure of the colon suggested by CT. GI and Surgery rounding DVT prophylaxis Sq Lovenox Disposition: Discharge on Sunday after completing GEntamicin (3) Diabetes type 2, controlled: Qualifiers: Diabetes mellitus halfway insulin use: without terminal block assembler use Diabetes mellitus complication status: without complication Qualified Code(s): E11.9 - Type 2 diabetes mellitus without complications Code(s): E11.9 - Type 2 diabetes mellitus without complications Status: Acute (4) Acute diastolic CHF (congestive heart failure): Code(s): I50.31 - Acute diastolic (congestive) heart failure Status: Acute (5) Morbid obesity: Code(s): E66.01 - Morbid (severe) obesity due to excess calories Status: Chronic (6) Urinary retention with incomplete bladder emptying: Code(s): R33.9 - Retention of urine, unspeci
[2022-08-05 14:00] VITALS: BP 118/61; PULSE 62; RESP 22; TEMP 36.1; O2SAT 95
[2022-08-05 16:16] LABS: Glucose Point of Care 103 mg/dl (65-105)
[2022-08-05 20:33] VITALS: PULSE 67; O2SAT 94
[2022-08-05 21:29] LABS: Glucose Point of Care 211 mg/dl (65-105)
[2022-08-05] MEDS: PRAMIPEXOLE 1 MG TABLET 2 MG BY MOUTH (21:34)
[2022-08-05] MEDS: SPIRONOLACTONE 25 MG TABLET PO (21:34)
[2022-08-05] MEDS: HYDROcodone/acetaminophen (*CRX) 5-325 MG TABLET 1 TAB PO (21:34)
[2022-08-05] MEDS: SENNA/DOCUSATE SODIUM TABLET 1 TAB PO (21:36)
[2022-08-05] MEDS: INSULIN GLARGINE (*BKC) 100 UNITS/ML 20 UNITS SUB-Q (21:40)
[2022-08-05 22:00] VITALS: BP 112/56; PULSE 62; RESP 14; TEMP 36.1; O2SAT 96
[2022-08-05 23:21] VITALS: PULSE 73; O2SAT 93
[2022-08-06] MEDS: LINACLOTIDE 145 MCG CAPSULE 290 MCG PO (05:35)
[2022-08-06 06:00] VITALS: BP 125/59; PULSE 65; RESP 14; TEMP 36.2; O2SAT 97
[2022-08-06 08:06] LABS: Basophils Percent Auto 0.6 % (0.2-1.2); Eosinophils Absolute Auto 0.3 K/mm3 (0-0.3); Eosinophils Percent Auto 5.3 % (0-4.4); Hematocrit 40.9 % (42.0-52.0); Hemoglobin 13.4 g/dL (14.0-18.0); Immature Granulocyte Absolute 0.02 K/mm3 (0.00-0.031); Immature Granulocyte Percent A 0.4 % (0-0.5); Lymphocytes Absolute Auto 0.93 K/mm3 (0.9-3.2); Lymphocytes Percent Auto 18.9 % (18.3-44.2); Mean Corpuscular HGB Conc 32.8 g/dl (32-36); Mean Corpuscular Hemoglobin 27.5 pg (26-34); Mean Platelet Volume 10.5 fl (7.4-10.4); Monocytes Absolute Auto 0.5 K/mm3 (0.1-0.6); Neutrophils Absolute Auto 3.2 K/mm3 (1.3-6.7); Neutrophils Percent Auto 64.8 % (45.5-73.1); Platelet Count Result 292 k/mm3 (150-375); Red Blood Count 4.87 M/mm3 (4.6-6.20); Red Cell Distribution Width 14.6 % (11.5-14.5); White Blood Count 4.9 K/mm3 (4.5-10.0)
[2022-08-06 08:07] LABS: Glucose Point of Care 140 mg/dl (65-105)
[2022-08-06] MEDS: FLUTICASONE/SALMETEROL 115-21 MCG INHALER 1 PUFF 2 PUFF INHALATION ×2 (08:22→21:03)
[2022-08-06] MEDS: CHOLECALCIFEROL 1,000 UNITS TABLET 1000 UNITS PO (09:01)
[2022-08-06] MEDS: BISACODYL 5 MG TABLET EC PO (09:01)
[2022-08-06] MEDS: TORSEMIDE 20 MG TABLET 40 MG PO ×2 (09:01→17:18)
[2022-08-06] MEDS: INSULIN ASPART (*BKC) 100 UNITS/ML 11 UNITS SUB-Q ×2 (09:01→12:44)
[2022-08-06] MEDS: MULTIVITAMINS THERAPEUTIC TAB (*BKC) 1 TABLET PO (09:02)
[2022-08-06] MEDS: allopurinoL 100 MG TABLET PO (09:02)
[2022-08-06] MEDS: polyethylene glycoL 3350 17 GM POWD.PACK PO (09:02)
[2022-08-06] MEDS: POTASSIUM CHLORIDE 20 MEQ TABLET.ER 40 MEQ PO (09:02)
[2022-08-06] MEDS: PRAMIPEXOLE 1 MG TABLET BY MOUTH (09:02)
[2022-08-06] MEDS: PANTOPRAZOLE 40 MG TABLET BY MOUTH (09:02)
[2022-08-06] MEDS: ENOXAPARIN 40 MG/0.4 ML SYRINGE SUB-Q (09:02)
[2022-08-06] MEDS: LOSARTAN POTASSIUM 25 MG TABLET PO (09:02)
[2022-08-06] MEDS: TOLNAFTATE 1% POWDER 45 GM BTL 1 APPLIC TOPICAL ×2 (09:03→21:53)
[2022-08-06 10:50] LABS: Alanine Aminotransferase 57 U/L (6-50); Albumin Level 4.2 g/dL (3.5-5.1); Alkaline Phosphatase 292 U/L (38-126); Anion Gap 7 mmol/L (8-16); Aspartate Amino Transferase 38 U/L (17-59); Bilirubin,Total 0.6 mg/dL (0.2-1.3); Blood Urea Nitrogen 15 mg/dL (9-20); Calcium 9.3 mg/dL (8.4-10.2); Carbon Dioxide 30 mmol/L (22-30); Chloride 93 mmol/L (98-107); Estimated CRCL calculation 116 ml/min; Estimated Glomerular Filt Rate > 60; Glucose 190 mg/dL (65-110); Magnesium 2.1 mg/dL (1.6-2.3); Potassium 3.2 mmol/L (3.4-5.0); Sodium 130 mmol/L (137-145)
[2022-08-06 11:14] VITALS: BP 109/58; PULSE 68; RESP 22; TEMP 36.5; O2SAT 99
[2022-08-06] MEDS: ONDANSETRON INJ 4 MG/2 ML VIAL IV PUSH (11:19)
[2022-08-06 11:36] LABS: Glucose Point of Care 156 mg/dl (65-105)
[2022-08-06 14:00] VITALS: BP 98/60; PULSE 74; RESP 16; TEMP 36.3; O2SAT 98
--- NOTE | 2022-08-06 15:44 | PM.IMPN ---
Progress Note: A&P Assessment and Plan (1) Epididymitis: Code(s): N45.1 - Epididymitis Status: Acute Assessment and Plan: Urine cultures and sensitivity. Klebsiella pneumoniae pt receiving iv antibiotics Rocephin day 9 Left scrotal area hatch tender and swollen slowly improving Ultrasound scrotum reviewed from 07/19/2022 Ultrasound scrotal repeat with no collections findings of epididymitis noted (2) Acute UTI: Code(s): N39.0 - Urinary tract infection, site not specified Status: Acute Assessment and Plan: Epididymitis Urine cultures and sensitivity.? Klebsiella pneumoniae ESBL pt receiving iv antibiotics?Rocephin discontinued Left scrotal area hatch tender and swollen slowly improving Ultrasound scrotum reviewed from 07/19/2022 Ultrasound scrotal repeat with no collections findings of epididymitis noted On Gentamicin, Day 7 Gentamicin trough level <1 from yesterday Patient will receive last dose today at 6pm and discharge tomorrow to follow up with his infectious disease at [facility] (2) Acute UTI Urine cultures and sensitivity.? Klebsiella pneumoniae s/p Rocpehin reappearance of urinary symptoms, ? Recheck urinalysis with findings of UTI noted await urine culture Continue on Rocephin His urine culture repeat grew Klebsiella pneumoniae ESBL this time.? Discussed with ID pharmacist.? Also reached out to Infectious Disease specialist at [facility] He has currently no other option except for gentamicin for this ESBL Klebsiella pneumonia He is allergic to? meropenem as well as sulfa off which are the only other antibiotics sensitive Will also check sensitivity for set for cefiderocol and ceftazidime/avibactam.? Which could be an option for ESBL multi drug-resistant bacteria Started on gentamicin per protocol 2022 Discussed with pID paharmacy and they are following levels and monitoring and adjusting dosing Tentatively planning for 7 days course of treatment, day 6 ? Monitor renal function Hyponatremia, resolved Na 135 monitor Diabetes type 2, controlled HBA1c? 7.7?( goal <7.0%) , Renal functions, Liver panel every 3 months Monitor vitamin B12 levels Optimize SHAZIA-inhibitor and statin Routine glucose monitoring. Watch for Hypoglycemia. BMI goal < 25 Sliding scale insulin.? ?avoid Jardiance in future discussed with the patient and family due to recurrent UTIs (4) Acute diastolic CHF (congestive heart failure): Heart failure with preserved ejection fraction. EKG reviewed Chest x-ray reviewed TTE? EF 60% 2021 (5) Morbid obesity: Kurtz catheter due to urinary retention off now. for obstructive uropathy and pyelonephritis Pt has purewick catheter currently used to have suprapubic catheter which has now been removed Check postvoid residual only at 60 cc (7) Fecal impaction of colon: continue laxatives Pt had kub and barium enema Contrast passes to the splenic flexure of the colon where there is stool. The transverse and ascending colon are distended, but not opacified by contrast. Hopefully this exam will relieve the stool impaction in the splenic flexure. Therapeutic enemas are recommended given the stercoral colitis in the hepatic flexure of the colon suggested by CT. GI and Surgery rounding DVT prophylaxis Sq Lovenox Disposition: Discharge on Sunday after completing Gentamicin (3) Diabetes type 2, controlled: Qualifiers: Diabetes mellitus terminal supervisor insulin use: without chcf use Diabetes mellitus complication status: without complication Qualified Code(s): E11.9 - Type 2 diabetes mellitus without complications Code(s): E11.9 - Type 2 diabetes mellitus without complications Status: Acute (4) Acute diastolic CHF (congestive heart failure): Code(s): I50.31 - Acute diastolic (congestive) heart failure Status: Acute (5) Morbid obesity: Code(s): E66.01 - Morbid (severe) obesity due to excess calories Status: Chronic (
[2022-08-06 17:00] LABS: Glucose Point of Care 95 mg/dl (65-105)
[2022-08-06 19:10] LABS: Gentamicin Trough < 0.6 ug/mL (<1.0)
[2022-08-06] MEDS: DEXTROSE 5% IVPB (19:37)
[2022-08-06] MEDS: GENTAMICIN SULFATE IVPB (19:37)
[2022-08-06 21:04] VITALS: PULSE 75; RESP 16
[2022-08-06 21:45] LABS: Glucose Point of Care 209 mg/dl (65-105)
[2022-08-06] MEDS: PRAMIPEXOLE 1 MG TABLET 2 MG BY MOUTH (21:53)
[2022-08-06] MEDS: SPIRONOLACTONE 25 MG TABLET PO (21:53)
[2022-08-06] MEDS: SENNA/DOCUSATE SODIUM TABLET 1 TAB PO (21:54)
[2022-08-06] MEDS: INSULIN GLARGINE (*BKC) 100 UNITS/ML 20 UNITS SUB-Q (21:55)
[2022-08-06 22:00] VITALS: BP 94/63; PULSE 72; RESP 14; TEMP 36.4; O2SAT 97
[2022-08-06] MEDS: ACETAMINOPHEN 325 MG TABLET 650 MG PO (22:00)
[2022-08-07 06:00] VITALS: BP 127/62; PULSE 65; RESP 16; TEMP 35.8; O2SAT 96
[2022-08-07] MEDS: LINACLOTIDE 145 MCG CAPSULE 290 MCG PO (06:08)
[2022-08-07 06:34] LABS: Alanine Aminotransferase 55 U/L (6-50); Albumin Level 3.7 g/dL (3.5-5.1); Alkaline Phosphatase 272 U/L (38-126); Anion Gap 8 mmol/L (8-16); Aspartate Amino Transferase 34 U/L (17-59); Basophils Percent Auto 0.6 % (0.2-1.2); Bilirubin,Total 0.6 mg/dL (0.2-1.3); Blood Urea Nitrogen 15 mg/dL (9-20); Calcium 9.1 mg/dL (8.4-10.2); Carbon Dioxide 30 mmol/L (22-30); Chloride 96 mmol/L (98-107); Eosinophils Absolute Auto 0.2 K/mm3 (0-0.3); Eosinophils Percent Auto 4.8 % (0-4.4); Estimated CRCL calculation 102 ml/min; Estimated Glomerular Filt Rate > 60; Glucose 136 mg/dL (65-110); Hematocrit 40.4 % (42.0-52.0); Hemoglobin 13.3 g/dL (14.0-18.0); Immature Granulocyte Absolute 0.02 K/mm3 (0.00-0.031); Immature Granulocyte Percent A 0.4 % (0-0.5); Lymphocytes Absolute Auto 1.04 K/mm3 (0.9-3.2); Lymphocytes Percent Auto 20.6 % (18.3-44.2); Mean Corpuscular HGB Conc 32.9 g/dl (32-36); Mean Corpuscular Hemoglobin 28.8 pg (26-34); Mean Corpuscular Volume 87.4 fl (80-100); Mean Platelet Volume 10.5 fl (7.4-10.4); Monocytes Absolute Auto 0.6 K/mm3 (0.1-0.6); Monocytes Percent Auto 12.1 % (2.6-8.5); Neutrophils Absolute Auto 3.1 K/mm3 (1.3-6.7); Neutrophils Percent Auto 61.5 % (45.5-73.1); Platelet Count Result 262 k/mm3 (150-375); Potassium 3.5 mmol/L (3.4-5.0); Red Blood Count 4.62 M/mm3 (4.6-6.20); Red Cell Distribution Width 14.7 % (11.5-14.5); Sodium 134 mmol/L (137-145); White Blood Count 5.1 K/mm3 (4.5-10.0)
[2022-08-07 07:02] LABS: Gentamicin Random 4.6 ug/mL (5.0-12.0)
[2022-08-07 08:19] LABS: Glucose Point of Care 168 mg/dl (65-105)
[2022-08-07 08:25] VITALS: RESP 16
[2022-08-07] MEDS: FLUTICASONE/SALMETEROL 115-21 MCG INHALER 1 PUFF 2 PUFF INHALATION ×2 (08:25→22:54)
[2022-08-07] MEDS: POTASSIUM CHLORIDE 20 MEQ TABLET.ER 40 MEQ PO (08:40)
[2022-08-07] MEDS: LOSARTAN POTASSIUM 25 MG TABLET PO (08:40)
[2022-08-07] MEDS: MULTIVITAMINS THERAPEUTIC TAB (*BKC) 1 TABLET PO (08:40)
[2022-08-07] MEDS: PANTOPRAZOLE 40 MG TABLET BY MOUTH (08:40)
[2022-08-07] MEDS: BISACODYL 5 MG TABLET EC PO (08:40)
[2022-08-07] MEDS: allopurinoL 100 MG TABLET PO (08:40)
[2022-08-07] MEDS: PRAMIPEXOLE 1 MG TABLET BY MOUTH (08:40)
[2022-08-07] MEDS: CHOLECALCIFEROL 1,000 UNITS TABLET 1000 UNITS PO (08:40)
[2022-08-07] MEDS: TORSEMIDE 20 MG TABLET 40 MG PO ×2 (08:40→17:46)
[2022-08-07] MEDS: polyethylene glycoL 3350 17 GM POWD.PACK PO (08:40)
[2022-08-07] MEDS: ENOXAPARIN 40 MG/0.4 ML SYRINGE SUB-Q (08:41)
[2022-08-07] MEDS: TOLNAFTATE 1% POWDER 45 GM BTL 1 APPLIC TOPICAL ×2 (08:41→21:25)
[2022-08-07] MEDS: INSULIN ASPART (*BKC) 100 UNITS/ML 11 UNITS SUB-Q ×2 (08:41→12:14)
[2022-08-07 11:37] LABS: Glucose Point of Care 163 mg/dl (65-105)
--- NOTE | 2022-08-07 11:45 | PCNWS ---
Weekly nutritional screen. Patient is tolerating current diet with adequate intake per chart at 50-100%. No weight loss reported in EMR however pt did state his weight has dropped since admission. Drinks Glucerna shakes daily at home, will send daily while here. Will reassess as needed.
--- NOTE | 2022-08-07 13:35 | PM.IMPN ---
Progress Note: A&P Assessment and Plan (1) Epididymitis: Code(s): N45.1 - Epididymitis Status: Acute Assessment and Plan: Urine cultures and sensitivity. Klebsiella pneumoniae pt received iv antibiotics Rocephin day 9 Now on 6 th gentamicin dose plan dc tomorrow after 7 th dose Left scrotal area lime kiln tender and swollen slowly improving Ultrasound scrotum reviewed from 07/19/2022 Ultrasound scrotal repeat with no collections findings of epididymitis noted (2) Acute UTI: Code(s): N39.0 - Urinary tract infection, site not specified Status: Acute Assessment and Plan: Epididymitis Urine cultures and sensitivity.? Klebsiella pneumoniae ESBL pt receiving iv antibiotics?Rocephin discontinued Left scrotal area lime kiln tender and swollen slowly improving Ultrasound scrotum reviewed from 07/19/2022 Ultrasound scrotal repeat with no collections findings of epididymitis noted On Gentamicin, 6 th dose today Last dose zaynab and discharge (2) Acute UTI Urine cultures and sensitivity.? Klebsiella pneumoniae s/p Rocpehin reappearance of urinary symptoms, ? Recheck urinalysis with findings of UTI noted await urine culture Continue on Rocephin His urine culture repeat grew Klebsiella pneumoniae ESBL this time.? Discussed with ID pharmacist.? Also reached out to Infectious Disease specialist at [facility] He has currently no other option except for gentamicin for this ESBL Klebsiella pneumonia He is allergic to? meropenem as well as sulfa off which are the only other antibiotics sensitive Will also check sensitivity for set for cefiderocol and ceftazidime/avibactam.? Which could be an option for ESBL multi drug-resistant bacteria Started on gentamicin per protocol 2022 monitor BMP last dose tomorrow Hyponatremia, resolved Na 135 monitor Diabetes type 2, controlled HBA1c? 7.7?( goal <7.0%) , Renal functions, Liver panel every 3 months Monitor vitamin B12 levels Optimize SHAZIA-inhibitor and statin Routine glucose monitoring. Watch for Hypoglycemia. BMI goal < 25 Sliding scale insulin.? ?avoid Jardiance in future discussed with the patient and family due to recurrent UTIs (4) Acute diastolic CHF (congestive heart failure): Heart failure with preserved ejection fraction. EKG reviewed Chest x-ray reviewed TTE? EF 60% 2021 (5) Morbid obesity: Kurtz catheter due to urinary retention off now. for obstructive uropathy and pyelonephritis Pt has purewick catheter currently used to have suprapubic catheter which has now been removed Check postvoid residual only at 60 cc (7) Fecal impaction of colon: continue laxatives Pt had kub and barium enema Contrast passes to the splenic flexure of the colon where there is stool. The transverse and ascending colon are distended, but not opacified by contrast. Hopefully this exam will relieve the stool impaction in the splenic flexure. Therapeutic enemas are recommended given the stercoral colitis in the hepatic flexure of the colon suggested by CT. GI and Surgery rounding DVT prophylaxis Sq Lovenox Disposition: dc tomorrow sunday (3) Diabetes type 2, controlled: Qualifiers: Diabetes mellitus fci insulin use: without fci use Diabetes mellitus complication status: without complication Qualified Code(s): E11.9 - Type 2 diabetes mellitus without complications Code(s): E11.9 - Type 2 diabetes mellitus without complications Status: Acute (4) Acute diastolic CHF (congestive heart failure): Code(s): I50.31 - Acute diastolic (congestive) heart failure Status: Acute (5) Morbid obesity: Code(s): E66.01 - Morbid (severe) obesity due to excess calories Status: Chronic (6) Urinary retention with incomplete bladder emptying: Code(s): R33.9 - Retention of urine, unspecified Status: Acute Assessment and Plan: (7) Fecal impaction of colon: Code(s): K56.41 - Fecal impa
[2022-08-07 13:38] VITALS: BP 112/69; PULSE 67; RESP 20; TEMP 36.4; O2SAT 95
[2022-08-07 16:57] LABS: Glucose Point of Care 105 mg/dl (65-105)
[2022-08-07] MEDS: SPIRONOLACTONE 25 MG TABLET PO (21:25)
[2022-08-07] MEDS: PRAMIPEXOLE 1 MG TABLET 2 MG BY MOUTH (21:25)
[2022-08-07] MEDS: INSULIN GLARGINE (*BKC) 100 UNITS/ML 20 UNITS SUB-Q (21:27)
[2022-08-07] MEDS: HYDROcodone/acetaminophen (*CRX) 5-325 MG TABLET 1 TAB PO (21:33)
[2022-08-07 22:00] VITALS: BP 110/63; PULSE 62; RESP 16; TEMP 36.2; O2SAT 96
[2022-08-08 00:11] LABS: Glucose Point of Care 266 mg/dl (65-105)
[2022-08-08] MEDS: DEXTROSE 5% IVPB (05:46)
[2022-08-08] MEDS: LINACLOTIDE 145 MCG CAPSULE 290 MCG PO (05:46)
[2022-08-08] MEDS: GENTAMICIN SULFATE IVPB (05:46)
[2022-08-08 06:00] VITALS: BP 115/63; PULSE 62; RESP 14; TEMP 36.3; O2SAT 96
[2022-08-08 06:30] LABS: Hematocrit 38.9 % (42.0-52.0); Hemoglobin 12.7 g/dL (14.0-18.0); Mean Corpuscular HGB Conc 32.6 g/dl (32-36); Mean Corpuscular Hemoglobin 27.9 pg (26-34); Mean Corpuscular Volume 85.3 fl (80-100); Mean Platelet Volume 10.4 fl (7.4-10.4); Platelet Count Result 249 k/mm3 (150-375); Red Blood Count 4.56 M/mm3 (4.6-6.20); Red Cell Distribution Width 14.6 % (11.5-14.5); White Blood Count 5.7 K/mm3 (4.5-10.0)
[2022-08-08 06:46] LABS: Anion Gap 6 mmol/L (8-16); Blood Urea Nitrogen 15 mg/dL (9-20); Calcium 8.9 mg/dL (8.4-10.2); Carbon Dioxide 31 mmol/L (22-30); Chloride 93 mmol/L (98-107); Estimated CRCL calculation 116 ml/min; Estimated Glomerular Filt Rate > 60; Glucose 136 mg/dL (65-110); Potassium 3.3 mmol/L (3.4-5.0); Sodium 130 mmol/L (137-145)
[2022-08-08 07:49] LABS: Glucose Point of Care 170 mg/dl (65-105)
[2022-08-08] MEDS: FLUTICASONE/SALMETEROL 115-21 MCG INHALER 1 PUFF 2 PUFF INHALATION (08:21)
[2022-08-08 08:22] VITALS: O2SAT 95
[2022-08-08] MEDS: INSULIN ASPART (*BKC) 100 UNITS/ML 11 UNITS SUB-Q ×2 (08:25→12:06)
[2022-08-08] MEDS: polyethylene glycoL 3350 17 GM POWD.PACK PO (08:28)
[2022-08-08] MEDS: ACETAMINOPHEN 325 MG TABLET 650 MG PO (08:28)
[2022-08-08] MEDS: ENOXAPARIN 40 MG/0.4 ML SYRINGE SUB-Q (08:28)
[2022-08-08] MEDS: LOSARTAN POTASSIUM 25 MG TABLET PO (08:29)
[2022-08-08] MEDS: allopurinoL 100 MG TABLET PO (08:29)
[2022-08-08] MEDS: PRAMIPEXOLE 1 MG TABLET BY MOUTH (08:29)
[2022-08-08] MEDS: MULTIVITAMINS THERAPEUTIC TAB (*BKC) 1 TABLET PO (08:29)
[2022-08-08] MEDS: CHOLECALCIFEROL 1,000 UNITS TABLET 1000 UNITS PO (08:29)
[2022-08-08] MEDS: PANTOPRAZOLE 40 MG TABLET BY MOUTH (08:29)
[2022-08-08] MEDS: POTASSIUM CHLORIDE 20 MEQ TABLET.ER 40 MEQ PO (08:29)
[2022-08-08] MEDS: BISACODYL 5 MG TABLET EC PO (08:29)
[2022-08-08] MEDS: TORSEMIDE 20 MG TABLET 40 MG PO (08:29)
[2022-08-08] MEDS: TOLNAFTATE 1% POWDER 45 GM BTL 1 APPLIC TOPICAL (08:41)
[2022-08-08 11:21] LABS: Glucose Point of Care 169 mg/dl (65-105)
--- NOTE | 2022-08-08 11:31 | PM.DS ---
DS: Admitting Diagnosis Discharge Date 08/08/2022 Admitting Diagnosis 07/19/2022 DS: Discharge Diagnosis Discharge Diagnosis (1) Epididymitis: Code(s): N45.1 - Epididymitis Status: Acute Assessment and Plan: Urine cultures and sensitivity. Klebsiella pneumoniae pt received iv antibiotics Rocephin day 9 completed 7 doses of gentamycin Left scrotal area slightly tender and swollen slowly improving Ultrasound scrotum reviewed from 07/19/2022 Ultrasound scrotal repeat with no collections findings of epididymitis noted (2) Acute UTI: Code(s): N39.0 - Urinary tract infection, site not specified Status: Acute Assessment and Plan: Epididymitis Urine cultures and sensitivity.? 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 Klebsiella pneumoniae s/p Rocephin reappearance of urinary symptoms, ? Recheck urinalysis with findings of UTI noted await urine culture Continue on Rocephin His urine culture repeat grew Klebsiella pneumoniae ESBL this time.? Discussed with ID pharmacist.? Also reached out to Infectious Disease specialist at [facility] He has currently no other option except for gentamicin for this ESBL Klebsiella pneumonia He is allergic to? meropenem as well as sulfa off which are the only other antibiotics sensitive Will also check sensitivity for set for cefiderocol and ceftazidime/avibactam.? Which could be an option for ESBL multi drug-resistant bacteria Started on gentamicin per protocol 2022 monitor BMP last dose today Hyponatremia, resolved Na 135 monitor Diabetes type 2, controlled HBA1c? 7.7?( goal <7.0%) , Renal functions, Liver panel every 3 months Monitor vitamin B12 levels Optimize SHAZIA-inhibitor and statin Routine glucose monitoring. Watch for Hypoglycemia. BMI goal < 25 Pt can dc about stopping Jardiance wth his PCP (4) Acute diastolic CHF (congestive heart failure): Heart failure with preserved ejection fraction. EKG reviewed Chest x-ray reviewed TTE? EF 60% 2021 (5) Morbid obesity: adviced diet and exercise (6)Morales catheter due to urinary retention off now. for obstructive uropathy and pyelonephritis morales is out (7) Fecal impaction of colon: Pt had kub and barium enema Contrast passes to the splenic flexure of the colon where there is stool. The transverse and ascending colon are distended, but not opacified by contrast. Hopefully this exam will relieve the stool impaction in the splenic flexure. Therapeutic enemas are recommended given the stercoral colitis in the hepatic flexure of the colon suggested by CT. GI and Surgery rounding. PT to use prn laxatives and linzess for possible IBS. Pt can follow with Gi MD (3) Diabetes type 2, controlled: Qualifiers: Diabetes mellitus retirement insulin use: without retirement use Diabetes mellitus complication status: without complication Qualified Code(s): E11.9 - Type 2 diabetes mellitus without complications Code(s): E11.9 - Type 2 diabetes mellitus without complications Status: Acute (4) Acute diastolic CHF (congestive heart failure): Code(s): I50.31 - Acute diastolic (congestive) heart failure Status: Acute (5) Morbid obesity: Code(s): E66.01 - Morbid (severe) obesity due to excess calories Status: Chronic (6) Urinary retention with incomplete bladder emptying: Code(s): R33.9 - Retention of urine, unspecified Status: Acute Assessment and Plan: (7) Fecal impaction of colon: Code(s): K56.41 - Fecal impaction Status: Acute DS: Summary Hospital Course Hospital Course: ?67-year-old m
--- NOTE | 2022-08-08 12:55 | PC.NURSE ---
Pt being discharged home today. Pt states that he has a mild headache this AM. Pt given tylenol that pt stated helped his headache. Pt has ambulated around unit multiple times today. Pt has had no other complaints today. Pt participated and contributed in plan of care. Pt is A&O 4. Will continue to monitor pt until discharge.
== END 2022-08-08 13:44 | disposition home or self-care (01) | DRG 689 ==
LOC: ANHED 09:40 → ANH3MEDSUR 11:04
PROVIDERS: Emergency Medicine; Internal Medicine; Nurse Practitioner; Physician Assistant; Admitting Provider Internal Medicine; Emergency Provider Family Medicine; PCP Family Medicine; Visit Provider Family Medicine
DX: N39.0 Urinary tract infection, site not specified (principal); I50.33 Acute on chronic diastolic (congestive) heart failure; Z68.41 Body mass index [BMI] 40.0-44.9, adult; Z16.12 Extended spectrum beta lactamase (ESBL) resistance; E87.1 Hypo-osmolality and hyponatremia; N43.3 Hydrocele, unspecified; N45.1 Epididymitis; B96.1 Klebsiella pneumoniae [K. pneumoniae] as the cause of diseases classified elsewhere; E66.01 Morbid (severe) obesity due to excess calories; E11.9 Type 2 diabetes mellitus without complications; E78.2 Mixed hyperlipidemia; G47.31 Primary central sleep apnea; H26.9 Unspecified cataract; I49.8 Other specified cardiac arrhythmias; I11.0 Hypertensive heart disease with heart failure; J98.6 Disorders of diaphragm; K21.9 Gastro-esophageal reflux disease without esophagitis; K56.41 Fecal impaction; N40.1 Benign prostatic hyperplasia with lower urinary tract symptoms; N39.498 Other specified urinary incontinence; R33.8 Other retention of urine; Z88.2 Allergy status to sulfonamides; Z86.711 Personal history of pulmonary embolism; Z87.891 Personal history of nicotine dependence; Z20.822 Contact with and (suspected) exposure to COVID-19; Z90.79 Acquired absence of other genital organ(s); Z79.82 Long term (current) use of aspirin; Z95.810 Presence of automatic (implantable) cardiac defibrillator; Z90.49 Acquired absence of other specified parts of digestive tract; Z79.84 Long term (current) use of oral hypoglycemic drugs; Z79.4 Long term (current) use of insulin
CPT/HCPCS: 36415; 74018; 74019; 74177; 74270; 76705; 76870; 80048; 80053; 80061; 80074; 80170; 81001; 82565; 82948; 83036; 83605; 83735; 84100; 84443; 85025; 85027; 85610; 85730; 87040; 87077; 87086; 87088; 87186; 87636; 93976; 94640; 96374; 96375; 96376; 97161; 97165; 97530; 97535; 99285; A9270; J0696; J1580; J1650; J1815; J2270; J2405; J2765; J7030; Q9967

== ENCOUNTER 2022-10-26 01:49 | Observation (INO) | payer MEDICARE, MEDICAID, SELFPAY ==
[2022-10-26] VITALS (65 sets, daily range): BP systolic 93–124; BP diastolic 37–67; PULSE 69–90; RESP 14–31; TEMP 36.3–37.5; O2SAT 91–100
--- NOTE | ~2022-10-26 | CT_ITS ---
CT of the Abdomen and Pelvis: Indication: Abdominal pain Technique: 2.5 mm axial scans were obtained through the abdomen and pelvis following intravenous adm inistration of 100 cc of Omnipaque 350. Dose reduction technique was used on this scan by utilizing a utomated exposure control and iterative reconstruction technique. The dose-length product (DLP) was 1 616.27 mGy-cm. COMPARISON: 07/22/2022 Findings: Scans through the lung bases are unremarkable. There is extensive pneumobilia. There is a 1.2 cm hypodense lesion in the inferior right hepatic lobe (axial image [id number]), new from prior exam, suspicious for small metastasis. Stable 1.4 cm left adrena l nodule present. 5 mm nonobstructing left renal stone present. There is suspected ill-defined hypode nse mass the pancreatic head region, with common bile duct stent in place. The spleen, gallbladder, right adrenal gland, and right kidney are within normal limits. No evidence of aortic aneurysm. No lymphadenopathy. No bowel obstruction or bowel wall thickening. There is no evidence to suggest acute appendicitis. Images through the pelvis were performed. Urinary bladder unremarkable. Prostate gland and seminal ve sicles are unremarkable. No ascites. Lateral L5 pars interarticularis defects are noted, with grade 1 anterolisthesis of L5 over S1. Impression: New 1.2 cm hypodense right hepatic lobe lesion, suspicious for metastasis in the setting of underlyin g pancreatic carcinoma. Probable ill-defined pancreatic head mass, consistent with history of pancreatic adenocarcinoma, with common bile duct stent in place. Associated pneumobilia. Stable 1.4 cm left adrenal nodule, indeterminate. Metastasis is a consideration. Left nephrolithiasis. Reviewed, dictated and finalized at [facility]. Impression: New 1.2 cm hypodense right hepatic lobe lesion, suspicious for metastasis in th e setting of underlying pancreatic carcinoma. Probable ill-defined pancreatic head mass, consistent with history of pancreati c adenocarcinoma, with common bile duct stent in place. Associated pneumobilia. Stable 1.4 cm left adrenal nodule, indeterminate. Metastasis is a consideration . Left nephrolithiasis.
--- NOTE | ~2022-10-26 | XR_ITS ---
EXAMINATION: XR chest 1V portable INDICATION: Increased cough, fever TECHNIQUE: Portable AP chest at 0802 hours COMPARISON: 10/26/2022 FINDINGS: A right internal jugular Port-A-Cath ends with its tip in the distal superior vena cava. Ca rdiomegaly is noted. A dual-lead cardiac pacemaker of the left chest wall ends with leads in expected locations. Mild diffuse interstitial pattern persists without significant change. No pleural effusio n or pneumothorax. IMPRESSION: 1. Cardiomegaly with mild pulmonary edema. Reviewed, dictated and finalized at location B.
--- NOTE | ~2022-10-26 | XR_ITS ---
Portable chest x-ray Comparison: 08/31/2021 Clinical History: Shortness of breath Findings: Probable minimal central pulmonary congestive changes are present. No other consolidation or pleural effusion. Cardiomediastinal silhouette is stable, with pacemaker. Bones and soft tissues are unremarkable. Impression: Probable minimal central congestive change. Stable cardiomegaly with pacemaker device. Reviewed, dictated and finalized at location . Impression: Probable minimal central congestive change. Stable cardiomegaly with pacemaker device.
--- NOTE | 2022-10-26 02:05 | ECG_ITS ---
Measurements Intervals [place] Rate: 87 P: 36 NM: 200 QRS: -50 QRSD: 153 T: 23 QT: 402 QTc: 485 Interpretive Statements SINUS RHYTHM RIGHT BUNDLE BRANCH BLOCK [120+ ms QRS DURATION, UPRIGHT V1, 40+ ms S IN I/aVL/V4/V5/V6] LEFT ANTERIOR FASCICULAR BLOCK [QRS AXIS <= -45, QR IN I, RS IN II] ABNORMAL ECG COMPARED TO ECG 09/30/2020 14:27:10 SINUS RHYTHM NOW PRESENT Electronically Signed On 10-26-2022 8:58:59 CDT by Jim Crews M.D.
[2022-10-26 02:35] LABS: Basophils Percent Auto 0.2 % (0.2-1.2); Eosinophils Percent Auto 0.4 % (0-4.4); Hematocrit 29.6 % (42.0-52.0); Hemoglobin 9.5 g/dL (14.0-18.0); Immature Granulocyte Absolute 0.01 K/mm3 (0.00-0.031); Immature Granulocyte Percent A 0.2 % (0-0.5); Lymphocytes Absolute Auto 0.16 K/mm3 (0.9-3.2); Lymphocytes Percent Auto 3.1 % (18.3-44.2); Mean Corpuscular HGB Conc 32.1 g/dl (32-36); Mean Corpuscular Hemoglobin 28.7 pg (26-34); Mean Corpuscular Volume 89.4 fl (80-100); Mean Platelet Volume 10.6 fl (7.4-10.4); Monocytes Percent Auto 0.2 % (2.6-8.5); Neutrophils Percent Auto 95.9 % (45.5-73.1); Platelet Count Result 113 k/mm3 (150-375); Red Blood Count 3.31 M/mm3 (4.6-6.20); Red Cell Distribution Width 16.3 % (11.5-14.5); White Blood Count 5.2 K/mm3 (4.5-10.0)
--- NOTE | 2022-10-26 02:39 | ED.GENADULT ---
HPI - General Adult General Chief complaint: Fever <Manjit Quintanilla MD - Last Filed: 10/26/22 06:46> Stated complaint: POST-CHEMO FEVER <Manjit Quintanilla MD - Last Filed: 10/26/22 06:46> Time Seen by Provider: 10/26/22 01:57 <Manjit Quintanilla MD - Last Filed: 10/26/22 06:46> History of Present Illness HPI narrative: This is a 67-year-old male with a history of pancreatic cancer undergoing chemotherapy presenting with multiple complaints. Patient states he got chemotherapy on Sunday. Starting earlier today he developed shortness of breath, fatigue a temperature of a 102.5?. Additionally he has abdominal pain and testicle pain. Patient has history of multiple drug-resistant organisms. Patient typically receives his care at [facility]. <Manjit Quintanilla MD - Last Filed: 10/26/22 06:46> Related Data Home medications: Home Medications Medication Instructions Recorded Confirmed albuterol sulfate 90 mcg/actuation 2 inh inhalation PRN PRN shortness 02/25/20 10/27/22 aerosol inhaler (ProAir HFA) of breath spironolactone 25 mg tablet 25 mg PO DAILY 03/11/20 10/27/22 budesonide-formoterol HFA 160 2 puff inhalation BID 01/31/21 10/27/22 mcg-4.5 mcg/actuation aerosol inhaler (Symbicort) metformin 500 mg tablet 500 mg PO BID 07/05/21 10/27/22 tamsulosin 0.4 mg capsule 1 cap PO DAILY 01/03/22 10/27/22 multivitamin 1 tablet PO .QD 03/16/22 10/27/22 insulin aspart U-100 100 unit/mL See Rx Instructions .Route .COMPLEX 07/06/22 10/27/22 (3 mL) subcutaneous pen (Novolog FlexPen U-100 Insulin aspart) insulin degludec 100 unit/mL (3 35 unit subcut .QD 07/06/22 10/27/22 mL) subcutaneous pen (Tresiba FlexTouch U-100 insulin) cholecalciferol (vitamin D3) 25 25 mcg PO DAILY 07/19/22 10/27/22 mcg (1,000 unit) tablet testosterone 2 pump topical HS 07/30/22 10/27/22 simethicone 180 mg capsule (Gas 180 mg PO BID PRN Abdominal 08/31/22 10/27/22 Relief (simethicone)) Discomfort apixaban 5 mg tablet (Eliquis) 5 mg PO BID 10/20/22 10/27/22 tqnflh-xppjebar-nyjmxwf 1 cap PO TID 10/20/22 10/27/22 24,000-76,000-120,000 unit capsule,delayed rel (Creon) ramelteon 8 mg tablet 8 mg PO QHS 10/20/22 10/27/22 fluticasone furoate 100 1 inh inhalation DAILY 10/27/22 10/27/22 mcg-vilanterol 25 mcg/dose inhalation powder <Manjit Quintanilla MD - Last Filed: 10/26/22 06:46> Allergies/adverse reactions: Allergies Allergy/AdvReac Type Severity Reaction Status Date / Time meropenem Allergy Severe Shakiness Verified 10/20/22 10:47 Sulfa (Sulfonamide Allergy Rash Verified 10/20/22 10:47 Antibiotics) menthol AdvReac Severe BROWER SKIN Verified 10/20/22 10:47 <Manjit Quintanilla MD - Last Filed: 10/26/22 06:46> Review of Systems Review of Systems: All systems reviewed & are unremarkable except as noted in HPI and below <Leonardo Cisneros MD - Last Filed: 10/27/22 17:43> [facility] Past Medical History Medical History: Medical History (Updated 10/26/22 @ 06:46 by Manjit Quintanilla MD) Abdominal pain Adrenal adenoma stable on imaging since 2017 Adult BMI 38.0-38.9 kg/sq m Benign prostatic hyperplasia (BPH) with urinary urge incontinence the patient is in test debating a bladder stimulator placement March [address] Sargent Bilateral cataracts maturing BMI 36.0-36.9,adult BMI 37.0-37.9, adult BMI 40.0-44.9, adult BMI greater than 40 Brugada syndrome C. difficile colitis distant history Cervical spondylitis with radiculitis CHF (congestive heart failure) echocardiogram performed at [place] 01/28/2020 demonstrated mild aortic regurgitation mild mitral regurgitation, diastolic dysfunction and severe left ventricular enlargement with normal ejection fraction 65% patient's health associate is Dr. Complex sleep apnea syndrome Dermatitis Diabetes mellitus type 2, diet-controlled hemoglobin A1c of 6.03 August 2019 Diabetes type 2, controlled Diaphragm paralysis Ecchymosis GERD (daisy
[2022-10-26 02:48] LABS: Alanine Aminotransferase 32 U/L (6-50); Albumin Level 3.6 g/dL (3.5-5.1); Alkaline Phosphatase 144 U/L (38-126); Anion Gap 7 mmol/L (8-16); Aspartate Amino Transferase 26 U/L (17-59); Bilirubin,Total 1.2 mg/dL (0.2-1.3); Blood Urea Nitrogen 28 mg/dL (9-20); Calcium 8.4 mg/dL (8.4-10.2); Carbon Dioxide 27 mmol/L (22-30); Chloride 103 mmol/L (98-107); Estimated CRCL calculation 88 ml/min; Estimated Glomerular Filt Rate > 60; Glucose 210 mg/dL (65-110); Potassium 3.8 mmol/L (3.4-5.0); Sodium 137 mmol/L (137-145)
[2022-10-26 02:59] LABS: INR 1.3; NT Pro B Type Natriuretic Pept 671 pg/mL (19.9-100); Prothrombin Time 15.8 Seconds (11.1-14.7); Troponin I < 0.012 ng/mL (0.000-0.034)
[2022-10-26 03:00] LABS: Partial Thromboplastin Time 38.9 SECONDS (22.3-36.8)
[2022-10-26 03:20] LABS: Lactic Acid Reflex 1.4 mmol/L (0.7-2.0)
[2022-10-26 04:10] LABS: Influenza A QL RT-PCR Negative (Negative); Influenza B QL RT-PCR Negative (Negative); RSV RNA, RT-PCR Negative (Negative); SARS-CoV-2 RNA PCR Negative (Negative)
[2022-10-26 05:08] LABS: Appearance Urine Clear (Clear); Bilirubin Urine Negative (Negative); Blood Urine Negative (Negative); Color Urine Yellow (Yellow); Glucose Urine UA Negative (Negative); Ketones Urine Negative (Negative); Leukocyte Esterase Ur Negative LEU/UL (Negative); Nitrate Urine Negative (Negative); Protein Urine Negative (Negative); Specific Grav Ur 1.018 (1.001-1.035); Urobilinogen Urine 0.2 mg/dL (<2.0); pH Urine 5.5 (5.0-9.0)
[2022-10-26] MEDS: SODIUM CHLORIDE 0.9% IV 1,000 ML 999 ML IV CONT (05:08)
[2022-10-26] MEDS: FAMOTIDINE 20 MG/2 ML VIAL IV PUSH (05:09)
[2022-10-26] MEDS: HYDROmorphone HCL INJ (*CRX) 1 MG/ML SYR 0.5 MG IV PUSH ×3 (05:09→15:49)
[2022-10-26] MEDS: ONDANSETRON INJ 4 MG/2 ML VIAL IV PUSH (05:09)
[2022-10-26 05:20] LABS: Add Urine Microscopic? NO
--- NOTE | 2022-10-26 12:23 | PC.NURSE ---
Update given to [facility] triage. They will call when bed available.
[2022-10-26] MEDS: SODIUM CHLORIDE 0.9% IV 1,000 ML 100 ML IV CONT (15:50)
[2022-10-26 16:39] LABS: Glucose Point of Care 133 mg/dl (65-105)
--- NOTE | 2022-10-26 16:40 | PC.NURSE ---
Pt placed in hospital bed at this time
[2022-10-26] MEDS: PRAMIPEXOLE 1 MG TABLET 2 MG PO (21:07)
[2022-10-26] MEDS: metFORMIN HCL 500 MG TABLET PO (21:07)
[2022-10-26] MEDS: TORSEMIDE 20 MG TABLET PO (21:07)
[2022-10-26] MEDS: APIXABAN 5 MG TABLET PO (21:07)
[2022-10-26] MEDS: SPIRONOLACTONE 25 MG TABLET PO (21:07)
--- NOTE | 2022-10-26 21:55 | PC.NURSE ---
Feather Stitcher spoke with Kim at [facility] transfer center and informed that they still do not have a bed at this time but will continue to look for placement.
[2022-10-26 23:04] LABS: Glucose Point of Care 153 mg/dl (65-105)
[2022-10-26] MEDS: ACETAMINOPHEN 500 MG TABLET 1000 MG PO (23:13)
--- NOTE | 2022-10-26 23:15 | PC.NURSE ---
Dr. Arceo informed hand sign writer that patient can eat something. [place] sandwich, chips, and diet ayden mist given to patient. Respiratory arrived to set up patient's CPAP machine for him.
[2022-10-27] VITALS (70 sets, daily range): BP systolic 106–128; BP diastolic 45–73; PULSE 60–86; RESP 13–35; TEMP 36.3–38.2; O2SAT 93–100; BMI 37.8; BMI 36.6
[2022-10-27] MEDS: SODIUM CHLORIDE 0.9% IV 1,000 ML 100 ML IV CONT (02:57)
[2022-10-27 06:19] LABS: Basophils Percent Auto 0.3 % (0.2-1.2); Eosinophils Absolute Auto 0.2 K/mm3 (0-0.3); Eosinophils Percent Auto 4.5 % (0-4.4); Hematocrit 26.9 % (42.0-52.0); Hemoglobin 8.7 g/dL (14.0-18.0); Immature Granulocyte Absolute 0.01 K/mm3 (0.00-0.031); Immature Granulocyte Percent A 0.3 % (0-0.5); Lymphocytes Absolute Auto 0.39 K/mm3 (0.9-3.2); Lymphocytes Percent Auto 11.6 % (18.3-44.2); Mean Corpuscular HGB Conc 32.3 g/dl (32-36); Mean Corpuscular Hemoglobin 29.6 pg (26-34); Mean Corpuscular Volume 91.5 fl (80-100); Mean Platelet Volume 9.8 fl (7.4-10.4); Monocytes Percent Auto 1.2 % (2.6-8.5); Neutrophils Absolute Auto 2.8 K/mm3 (1.3-6.7); Neutrophils Percent Auto 82.1 % (45.5-73.1); Platelet Count Result 108 k/mm3 (150-375); Red Blood Count 2.94 M/mm3 (4.6-6.20); Red Cell Distribution Width 16.5 % (11.5-14.5); White Blood Count 3.4 K/mm3 (4.5-10.0)
--- NOTE | 2022-10-27 06:20 | PC.NURSE ---
Called [facility] Transfer line , Still no bed for the patient at this time.
[2022-10-27 06:34] LABS: Alanine Aminotransferase 29 U/L (6-50); Albumin Level 3.2 g/dL (3.5-5.1); Alkaline Phosphatase 126 U/L (38-126); Anion Gap 4 mmol/L (8-16); Aspartate Amino Transferase 27 U/L (17-59); Bilirubin,Total 0.7 mg/dL (0.2-1.3); Blood Urea Nitrogen 13 mg/dL (9-20); Calcium 7.8 mg/dL (8.4-10.2); Carbon Dioxide 28 mmol/L (22-30); Chloride 106 mmol/L (98-107); Estimated CRCL calculation 111 ml/min; Estimated Glomerular Filt Rate > 60; Glucose 143 mg/dL (65-110); Potassium 3.2 mmol/L (3.4-5.0); Sodium 138 mmol/L (137-145)
[2022-10-27 06:41] LABS: Anisocytosis 1+ (NORMAL); Schistocytes None Seen (NORMAL)
[2022-10-27] MEDS: LEVALBUTEROL NEB 1.25 MG/3 ML INHALATION (07:35)
--- NOTE | 2022-10-27 07:38 | PC.NURSE ---
rounding on pt this morning he is upset because he reported he has not seen anybody all night. Pt also reports he developed a cough last night and feels wheezy . ERP notified of pt's concerns
[2022-10-27] MEDS: POTASSIUM CHLORIDE 20 MEQ PACKET (FOR LIQUID) PO (07:55)
[2022-10-27] MEDS: ACETAMINOPHEN 500 MG TABLET 1000 MG PO (10:35)
--- NOTE | 2022-10-27 10:58 | PC.NURSE ---
Diana from [facility] transfer service called to update no beds available at this time
[2022-10-27] MEDS: FUROSEMIDE INJ 40 MG/4 ML VIAL IV PUSH (15:27)
[2022-10-27 15:43] LABS: Influenza A QL RT-PCR Negative (Negative); Influenza B QL RT-PCR Negative (Negative); RSV RNA, RT-PCR Negative (Negative); SARS-CoV-2 RNA PCR Negative (Negative)
[2022-10-27] MEDS: PIPERACILLN/TAZ 3.375GM/NS50ML 3.375 GM/50 ML BAG IVPB ×2 (16:01→23:25)
--- NOTE | 2022-10-27 17:08 | ADMGEN ---
This patient, Rah Greco, was admitted to 3 [facility] Surg Room 330-01 @ 1708. Patient/family oriented to hospital policies and general routines including ID bracelet, bed and alarms, visiting hours, pain management, procedures, bathroom and other care routines, personal items, smoking policy, room service/diet, and visiting hours. Information on how to activate the Rapid Response Team has been discussed. Patient/Family are encouraged to report perceived risks to care and to ask questions if they do not understand what they are told or what they should do.
--- NOTE | 2022-10-27 21:17 | PM.IMHP ---
H&P: HPI History of Present Illness Date/Time: 10/27/22 21:17 Chief Complaint: Fever and chills Narrative: 67-year-old male with a past medical history of pancreatic cancer on chemotherapy, type 2 diabetes mellitus, complex obstructive sleep apnea, heart failure with preserved ejection fraction, recurrent UTIs with multidrug resistant organism and prior C diff colitis who presented to the ER 10/26/2022 due to fever and chills. He was found to have relatively normal labs with given his recent chemotherapy and reported fever he was awaiting bed placement at [facility]. He had waited transfer for over 24 hours in the ER to his admitted as observation at our facility until a bed could be obtained. The patient reports that he has been having headache for 3 days. On the day prior to presentation he developed some nasal congestion. He has been having a sore throat for the last 24 hours (after presentation to the ER). He reports that this afternoon he developed pain and warmth in his right lower extremity. He also developed a nonproductive cough this afternoon. He had viral PCR performed in the ER that were negative for influenza and COVID. Blood cultures were obtained and are pending. The patient also reports that for the last couple of days he has been having burning itching pain to his scalp. On exam the patient does have 3 vesicles to his right scalp. He denies a prior history of herpes zoster. He denies any chest pain. He has had increased shortness of breath throughout the afternoon and evening. This afternoon in the ER repeat chest x-ray was performed which demonstrated is slightly worsening infiltrates and exam consistent with the patient's known cardiomegaly with mild pulmonary edema. He denies any increased lower extremity swelling. But reports he has been having some chronic lower extremity swelling since a recent diagnosis of DVT this past month at the outside facility. He denies any calf pain. He reports he just generally hurts all over. On exam he reports reproducible pain to palpation of the submandibular lymph nodes bilaterally. He does not have any posterior oral pharyngeal erythema neck correlates with his report of sore throat. He reports that mucous membranes feel dry. He has a suprapubic catheter in place. His abdomen is soft he has got normoactive bowel sounds. He has been passing gas. He reports he actually had 3 large hard bowel movements in the ER. He has subsequently been some rectal bleeding. He reports this is not unusual for him after his passed a hard bowel movement.He reports that he has been feeling generally nauseous but has not had any vomiting. He denies any recent ill contacts. He reports that he feels like he is wheezing more than usual. The patient reports that at home he was febrile with a temperature of 101.4?. In the ER the patient did spike a temperature of 100.4? this afternoon. Prior to that he had been afebrile for the 1st 24 hours of his ER stay. The patient reports that he has been having some mild epigastric pain that is worse with palpation. He has been passing gas. He reports that the pain across the scalp is worse with palpation as well. He reports the headache can scalp pain is moderate to severe in intensity. He has not noticed any relieving factors he denies any vision changes. The patient reports he has developed scattered bruising over the last 3-4 weeks. He has been told that his platelet count is a little bit low. He reports that he was diagnosed with pancreatic cancer approximately the 1st week in August. He received his last chemotherapy treatment last Sunday. He does not know what chemotherapy regimen that he is on. He is noted to have some dry flaking skin to his arms on exam he reports that this is chronic. Review of Systems Review of Systems: 12 systems were reviewed with pertinent positives and negatives per HPI. Except as documented in the HPI, all other systems were reviewe
[2022-10-27 21:23] LABS: Glucose Point of Care 188 mg/dl (65-105)
[2022-10-27] MEDS: PRAMIPEXOLE 1 MG TABLET 2 MG PO (23:24)
[2022-10-28] VITALS: PULSE 80
--- NOTE | 2022-10-28 02:04 | PC.NURSE ---
1386 on 10/22 Jyoti called with room available for Pt.
[2022-10-28] MEDS: ACYCLOVIR 400 MG TABLET 800 MG PO (02:15)
[2022-10-28 02:21] LABS: Strep Group A RT-PCR NOT DETECTED (Negative)
[2022-10-28 04:00] VITALS: PULSE 78
[2022-10-28] MEDS: PIPERACILLN/TAZ 3.375GM/NS50ML 3.375 GM/50 ML BAG IVPB (05:27)
[2022-10-28] MEDS: LINACLOTIDE 145 MCG CAPSULE 290 MCG PO (05:54)
[2022-10-28 06:00] VITALS: BP 111/52; PULSE 76; RESP 20; TEMP 36.4; O2SAT 95
[2022-10-28 07:12] LABS: Hematocrit 26.9 % (42.0-52.0); Hemoglobin 8.6 g/dL (14.0-18.0); Mean Corpuscular Hemoglobin 28.9 pg (26-34); Mean Corpuscular Volume 90.3 fl (80-100); Mean Platelet Volume 9.7 fl (7.4-10.4); Platelet Count Result 126 k/mm3 (150-375); Red Blood Count 2.98 M/mm3 (4.6-6.20); Red Cell Distribution Width 16.3 % (11.5-14.5); White Blood Count 2.4 K/mm3 (4.5-10.0)
[2022-10-28 07:33] LABS: Anion Gap 6 mmol/L (8-16); Blood Urea Nitrogen 7 mg/dL (9-20); Calcium 7.9 mg/dL (8.4-10.2); Carbon Dioxide 24 mmol/L (22-30); Chloride 104 mmol/L (98-107); Estimated CRCL calculation 132 ml/min; Estimated Glomerular Filt Rate > 60; Glucose 152 mg/dL (65-110); Magnesium 2.4 mg/dL (1.6-2.3); Potassium 3.2 mmol/L (3.4-5.0); Sodium 134 mmol/L (137-145)
== END 2022-10-28 07:30 | disposition short-term general hospital (02) ==
LOC: ANHED 10-27 08:38 → ANH3MEDSUR 10-27 17:43
PROVIDERS: Emergency Medicine; Internal Medicine; Admitting Provider Internal Medicine; Emergency Provider Preventive Medicine Aerospace Medicine; PCP Family Medicine; Visit Provider Internal Medicine
DX: D72.819 Decreased white blood cell count, unspecified (principal); R50.81 Fever presenting with conditions classified elsewhere; C25.9 Malignant neoplasm of pancreas, unspecified; K76.9 Liver disease, unspecified; R10.9 Unspecified abdominal pain; N50.819 Testicular pain, unspecified; Z16.30 Resistance to unspecified antimicrobial drugs; E11.65 Type 2 diabetes mellitus with hyperglycemia; Z20.822 Contact with and (suspected) exposure to COVID-19; E29.1 Testicular hypofunction; K21.9 Gastro-esophageal reflux disease without esophagitis; I71.20 Thoracic aortic aneurysm, without rupture, unspecified; R94.31 Abnormal electrocardiogram [ECG] [EKG]; G47.37 Central sleep apnea in conditions classified elsewhere; D35.00 Benign neoplasm of unspecified adrenal gland; N40.0 Benign prostatic hyperplasia without lower urinary tract symptoms; I50.33 Acute on chronic diastolic (congestive) heart failure; F10.90 Alcohol use, unspecified, uncomplicated; I51.7 Cardiomegaly; Z87.891 Personal history of nicotine dependence; Z79.4 Long term (current) use of insulin; Z79.51 Long term (current) use of inhaled steroids; Z79.84 Long term (current) use of oral hypoglycemic drugs; Z79.01 Long term (current) use of anticoagulants; Z79.899 Other long term (current) drug therapy
CPT/HCPCS: 36415; 71045; 74177; 80048; 80053; 81003; 82948; 83605; 83735; 83880; 84484; 85025; 85027; 85610; 85730; 87040; 87077; 87081; 87637; 87651; 93005; 94640; 96365; 96366; 96367; 96375; 96376; 99285; A9270; G0378; J0131; J1170; J1940; J2405; J2543; J3370; J7030; Q9967

== ENCOUNTER 2023-10-12 09:39 | Outpatient (CLI) | payer MEDICARE, MEDICAID, SELFPAY ==
--- NOTE | ~2023-10-12 | XR_ITS ---
XR chest 2V 10/12/2023 09:52 Indication: Cough. Dyspnea. Procedure: 2 view chest Comparison: Chest x-ray report dated 10/27/2022 Findings: Right-sided central venous catheter tip near the cavoatrial junction. Cardiomegaly. Bilater al pleural effusions. Bibasilar atelectasis. Pacemaker leads are in expected position. Impression: 1: Bilateral pleural effusions with underlying compressive atelectasis. Reviewed, dictated and finalized at location A. Impression: 1: Bilateral pleural effusions with underlying compressive atelectasis.
== END 2023-10-12 09:40 | disposition home or self-care (01) ==
PROVIDERS: PCP Family Medicine; Visit Provider Nurse Practitioner Family
DX: R05.8 Other specified cough (principal); J90 Pleural effusion, not elsewhere classified; J98.11 Atelectasis
CPT/HCPCS: 71046

== ENCOUNTER 2023-10-22 15:18 | Outpatient (CLI) | payer MEDICARE, MEDICAID, SELFPAY ==
--- NOTE | ~2023-10-22 | XR_ITS ---
XR chest 2V 10/22/2023 15:32 Indication: Cough Procedure: 2 view chest Comparison: 10/12/2023 Findings: small left pleural effusion. Bibasilar atelectasis. Cardiomegaly. Pacemaker leads are stabl e. Portacatheter tip in the condyle aspect of the SVC. No acute osseous abnormality. There is moderat e gastric distention. Impression: 1: Small left pleural effusion. 2: Bibasilar atelectasis. Reviewed, dictated and finalized at location B. Impression: 1: Small left pleural effusion. 2: Bibasilar atelectasis.
== END 2023-10-22 15:19 | disposition home or self-care (01) ==
LOC: ANHIMG 15:21
PROVIDERS: PCP Family Medicine; Visit Provider Physician Assistant
DX: R05.8 Other specified cough (principal); J90 Pleural effusion, not elsewhere classified; J98.11 Atelectasis
CPT/HCPCS: 71046

== ENCOUNTER 2023-10-29 16:56 | Outpatient (CLI) | payer MEDICARE, MEDICAID, SELFPAY ==
--- NOTE | ~2023-10-29 | XR_ITS ---
Clinical Indication: Diastolic heart failure PA and lateral views of the chest: Comparison: The lungs are clear, without focal consolidation or pleural effusion. Findings: Stable Mediport. Suspected minimal pleural effusions, with blunting of costophrenic angles on lateral view. Cardiomediastinal silhouette is stable, with pacemaker device. Stable calcified lef t infrahilar lymph node. Bones and soft tissues are unremarkable. Impression: Suspected minimal pleural effusions. Stable cardiomegaly, with pacemaker device. Stable Mediport. Reviewed, dictated and finalized at location . Impression: Suspected minimal pleural effusions. Stable cardiomegaly, with pacemaker device. Stable Mediport.
[2023-10-29 17:20] LABS: Basophils Percent Auto 0.3 % (0.2-1.2); Eosinophils Absolute Auto 0.2 K/mm3 (0-0.3); Eosinophils Percent Auto 2.2 % (0-4.4); Hematocrit 36.1 % (42.0-52.0); Hemoglobin 10.2 g/dL (14.0-18.0); Immature Granulocyte Absolute 0.03 K/mm3 (0.00-0.031); Immature Granulocyte Percent A 0.3 % (0-0.5); Lymphocytes Absolute Auto 0.94 K/mm3 (0.9-3.2); Lymphocytes Percent Auto 9.7 % (18.3-44.2); Mean Corpuscular HGB Conc 28.3 g/dl (32-36); Mean Corpuscular Hemoglobin 22.9 pg (26-34); Mean Corpuscular Volume 80.9 fl (80-100); Mean Platelet Volume 8.7 fl (7.4-10.4); Monocytes Absolute Auto 0.9 K/mm3 (0.1-0.6); Monocytes Percent Auto 9.4 % (2.6-8.5); Neutrophils Absolute Auto 7.5 K/mm3 (1.3-6.7); Neutrophils Percent Auto 78.1 % (45.5-73.1); Platelet Count Result 374 k/mm3 (150-375); Red Blood Count 4.46 M/mm3 (4.6-6.20); Red Cell Distribution Width 18.4 % (11.5-14.5); White Blood Count 9.7 K/mm3 (4.5-10.0)
[2023-10-29 17:34] LABS: Alanine Aminotransferase 31 U/L (6-50); Albumin Level 4.2 g/dL (3.5-5.1); Alkaline Phosphatase 426 U/L (38-126); Amylase 48 U/L (30-110); Anion Gap 9 mmol/L (4-12); Aspartate Amino Transferase 45 U/L (17-59); Bilirubin,Total 0.5 mg/dL (0.2-1.3); Blood Urea Nitrogen 27 mg/dL (9-20); Calcium 9.5 mg/dL (8.4-10.2); Carbon Dioxide 33 mmol/L (22-30); Chloride 101 mmol/L (98-107); Estimated Glomerular Filt Rate > 60; Glucose 80 mg/dL (65-110); Lipase 19 U/L (23-300); Potassium 3.8 mmol/L (3.4-5.0); Sodium 143 mmol/L (137-145)
[2023-10-29 17:49] LABS: Anisocytosis 1+; Hypochromasia 1+; Large Platelets Present; Platelet Clumps Present; Platelet Estimate Slightly Increased (Adequate); Schistocytes None Seen
== END 2023-10-29 16:57 | disposition home or self-care (01) ==
PROVIDERS: PCP Family Medicine; Visit Provider Family Medicine
DX: I50.30 Unspecified diastolic (congestive) heart failure (principal); I51.7 Cardiomegaly; C25.9 Malignant neoplasm of pancreas, unspecified; R05.8 Other specified cough; R10.13 Epigastric pain; R10.9 Unspecified abdominal pain; Z95.0 Presence of cardiac pacemaker
CPT/HCPCS: 36415; 71046; 80053; 82150; 83690; 85025

== ENCOUNTER 2024-03-10 22:24 | Emergency (ER) | payer MEDICARE, MEDICAID, SELFPAY ==
--- NOTE | ~2024-03-10 | CT_ITS ---
CT of the Abdomen and Pelvis: Indication: Pain, history of Whipple's procedure Technique: 2.5 mm axial scans were obtained through the abdomen and pelvis following intravenous adm inistration of 100 cc of Omnipaque 350. Dose reduction technique was used on this scan by utilizing a utomated exposure control and iterative reconstruction technique. The dose-length product (DLP) was 1 166.65 mGy-cm. COMPARISON: 10/26/2022 Findings: Scans through the lung bases demonstrated mild bibasilar atelectatic change and probable c ardiomegaly. Status post cholecystectomy and resection of the pancreatic head. There is extensive pneumobilia. No definite focal hepatic parenchymal lesion identified. Pancreatic tail unremarkable. Mild splenomegaly is present. Stable left adrenal nodule. Right adrenal gland unremarkable. Bilateral nonobstructing r enal stones are present, largest measuring 8 mm at the left lower pole. No hydronephrosis. There are atherosclerotic calcifications of the aorta. No lymphadenopathy. No bowel obstruction or bowel wall thickening. Small fat-containing umbilical hernia noted. Images through the pelvis were performed. Urinary bladder unremarkable. No pelvic mass seen. No ascit es. Bilateral L5 pars interarticularis defects noted. Impression: Status post Whipple's procedure. No definite evidence for active malignancy or metastatic disease. Stable left adrenal nodule. Bilateral nonobstructing renal stones, as above. Small fat-containing umbilical hernia. Reviewed, dictated and finalized at [facility]. Impression: Status post Whipple's procedure. No definite evidence for active malignancy or metastatic disease. Stable left adrenal nodule. Bilateral nonobstructing renal stones, as above. Small fat-containing umbilical hernia.
[2024-03-10 22:27] VITALS: BP 135/46; PULSE 60; RESP 15; TEMP 36.3; O2SAT 99
[2024-03-11] LABS: Basophils Percent Auto 0.5 % (0.2-1.2); Eosinophils Absolute Auto 0.2 K/mm3 (0-0.3); Eosinophils Percent Auto 3.1 % (0-4.4); Hematocrit 39.6 % (42.0-52.0); Hemoglobin 12.4 g/dL (14.0-18.0); Immature Granulocyte Absolute 0.01 K/mm3 (0.00-0.031); Immature Granulocyte Percent A 0.2 % (0-0.5); Lymphocytes Absolute Auto 0.69 K/mm3 (0.9-3.2); Lymphocytes Percent Auto 11.7 % (18.3-44.2); Mean Corpuscular HGB Conc 31.3 g/dl (32-36); Mean Corpuscular Hemoglobin 25.7 pg (26-34); Mean Platelet Volume 10.1 fl (7.4-10.4); Monocytes Absolute Auto 0.6 K/mm3 (0.1-0.6); Neutrophils Absolute Auto 4.4 K/mm3 (1.3-6.7); Neutrophils Percent Auto 74.5 % (45.5-73.1); Platelet Count Result 208 k/mm3 (150-375); Red Blood Count 4.83 M/mm3 (4.6-6.20); Red Cell Distribution Width 19.3 % (11.5-14.5); White Blood Count 5.9 K/mm3 (4.5-10.0)
[2024-03-11 00:24] LABS: Alanine Aminotransferase 40 U/L (6-50); Albumin Level 3.9 g/dL (3.5-5.1); Alkaline Phosphatase 322 U/L (38-126); Anion Gap 8 mmol/L (4-12); Aspartate Amino Transferase 48 U/L (17-59); Bilirubin,Total 0.3 mg/dL (0.2-1.3); Blood Urea Nitrogen 23 mg/dL (9-20); Calcium 8.8 mg/dL (8.4-10.2); Carbon Dioxide 33 mmol/L (22-30); Chloride 97 mmol/L (98-107); Estimated CRCL calculation 81 ml/min; Estimated Glomerular Filt Rate > 60; Glucose 203 mg/dL (65-110); Potassium 3.8 mmol/L (3.4-5.0); Sodium 138 mmol/L (137-145)
[2024-03-11 04:46] LABS: Add Urine Microscopic? NO; Appearance Urine Clear (Clear); Bilirubin Urine Negative (Negative); Blood Urine Negative (Negative); Color Urine Yellow (Yellow); Glucose Urine UA Negative (Negative); Ketones Urine Negative (Negative); Leukocyte Esterase Ur Negative LEU/UL (Negative); Nitrate Urine Negative (Negative); Protein Urine Negative (Negative); Urobilinogen Urine 0.2 mg/dL (<2.0); pH Urine 5.5 (5.0-9.0)
--- NOTE | 2024-03-11 05:18 | ED.BACK ---
HPI - Back Pain/Injury General Chief Complaint: Back Pain/Injury <Jose Perry MD - Last Filed: 03/11/24 07:13> Stated Complaint: BACK PAIN, HIP PAIN <Jose Perry MD - Last Filed: 03/11/24 07:13> Time Seen by Provider: 03/11/24 04:44 <Jose Perry MD - Last Filed: 03/11/24 07:13> History of Present Illness HPI Narrative: This is a 68-year-old male with a past medical history significant for pancreatic cancer status post Whipple in April 2023 at [facility]. Patient also has history of nephrolithiasis, paroxysmal AFib, diabetes, CHF. He presents to the Emergency from a chief complaint of left-sided low back pain radiating into his left flank and left groin. He states it feels somewhat similar to a kidney stone he has had before but is not sure. Denies any chest pain, shortness a breath, headache, vision changes. No difficulty urinating but states that he is incontinent to both urine and feces chronically and this is not new. No saddle anesthesias. Denies any trauma or injuries. He is able to ambulate and move all his extremities without any paresthesias in his limbs. States he was at home not doing anything particularly interesting when he has had sudden-onset pain is left flank and low back now radiating to his left groin. <Jose Perry MD - Last Filed: 03/11/24 07:13> Related Data Home Medications: Home Medications Medication Instructions Recorded Confirmed multivitamin 1 tablet PO .QD 03/16/22 11/19/23 cholecalciferol (vitamin D3) 25 25 mcg PO DAILY 07/19/22 11/19/23 mcg (1,000 unit) tablet simethicone 180 mg capsule (Gas 180 mg PO BID PRN Abdominal 08/31/22 11/19/23 Relief (simethicone)) Discomfort fluticasone furoate 100 1 inh inhalation DAILY 10/27/22 11/19/23 mcg-vilanterol 25 mcg/dose inhalation powder cyclobenzaprine 5 mg tablet 5 mg PO TID PRN 11/28/22 11/19/23 hydroxyzine HCl 25 mg tablet 25 mg PO QID PRN 03/22/23 11/19/23 ondansetron HCl 8 mg tablet 8 mg PO .before meals 03/22/23 11/19/23 rosuvastatin 5 mg tablet (Crestor) 5 mg PO DAILY 03/22/23 11/19/23 sennosides 8.6 mg-docusate sodium 1 tab-cap PO QHS 03/22/23 11/19/23 50 mg tablet tamsulosin 0.4 mg capsule 0.4 mg PO DAILY PRN 03/22/23 11/19/23 ubrogepant 100 mg tablet (Ubrelvy) 100 mg PO ONCE 03/23/23 11/19/23 acetaminophen 500 mg capsule 500 mg PO Q6H PRN 05/31/23 11/19/23 aspirin 81 mg tablet,delayed 81 mg PO DAILY 05/31/23 11/19/23 release (Adult Low Dose Aspirin) fluticasone propionate 50 1 spray intranasal DAILY 05/31/23 11/19/23 mcg/actuation nasal spray,suspension (Allergy Relief (fluticasone)) spironolactone 25 mg tablet 25 mg PO DAILY 05/31/23 11/19/23 omeprazole 40 mg capsule,delayed 40 mg PO DAILY 08/06/23 11/19/23 release oxybutynin chloride 15 mg 15 mg PO DAILY 08/06/23 11/19/23 tablet,extended release 24 hr polyethylene glycol 3350 17 gram 17 g PO DAILY 08/06/23 11/19/23 oral powder packet (Miralax) gliyde-ajdhmilo-gesaiju See Rx Instructions PO .up to 6 10/11/23 11/19/23 24,000-76,000-120,000 unit times a day capsule,delayed rel (Creon) ascorbic acid (vitamin C) 500 mg 500 mg PO DAILY 10/22/23 11/19/23 capsule insulin aspart U-100 100 unit/mL See Rx Instructions .Route .COMPLEX 10/22/23 11/19/23 (3 mL) subcutaneous pen (Novolog FlexPen U-100 Insulin aspart) insulin degludec 100 unit/mL (3 20 unit subcut .QD 10/22/23 11/19/23 mL) subcutaneous pen (Tresiba FlexTouch U-100 insulin) morphine 15 mg tablet,extended 15 mg PO Q12H 10/22/23 11/19/23 release oxycodone 5 mg tablet 5 mg PO Q8H PRN pain 10/22/23 11/19/23 sucralfate 1 gram tablet 1 g PO Q6H PRN 10/22/23 11/19/23 torsemide 20 mg tablet 60 mg PO DAILY 10/22/23 11/19/23 dicyclomine 20 mg tablet 20 mg PO TID 11/19/23 11/19/23 gabapentin 100 mg capsule 100 mg PO TID 11/19/23 11/19/23 <Jose Perry MD - Last Filed: 03/11/24 07:13> Monty
--- NOTE | 2024-03-11 05:22 | ECG_ITS ---
Test Date: 2024-03-11 06:26:26 Measurements Intervals [place] Rate: 62 P: 103 SD: 249 QRS: -53 QRSD: 173 T: 19 QT: 518 QTc: 528 Interpretive Statements ELECTRONIC ATRIAL PACEMAKER WITH INHIBITION RIGHT BUNDLE BRANCH BLOCK LEFT ANTERIOR FASCICULAR BLOCK HIGH LATERAL MYOCARDIAL INFARCTION , OF INDETERMINATE AGE BASELINE ARTIFACT- V2 ABNORMAL ECG No previous ECG available for comparison Electronically Signed On 03-11-2024 06:29:37 CDT by Carlos Heck D.O.
[2024-03-11] MEDS: ONDANSETRON INJ 4 MG/2 ML VIAL IV PUSH (05:38)
[2024-03-11] MEDS: LACTATED RINGERS 1,000 ML 999 ML IV CONT (05:38)
[2024-03-11] MEDS: HYDROmorphone HCL INJ (*CRX) 1 MG/ML SYR IV PUSH (05:38)
[2024-03-11 06:14] LABS: Troponin I < 0.012 ng/mL (0.000-0.034)
[2024-03-11 06:36] VITALS: BP 131/62; PULSE 60; RESP 15; O2SAT 97
[2024-03-11] MEDS: KETOROLAC 30 MG/ML VIAL (*BKC) IV PUSH (07:01)
[2024-03-11 07:07] VITALS: BP 153/72; PULSE 60; RESP 22; O2SAT 99
[2024-03-11] MEDS: ACETAMINOPHEN 500 MG TABLET 1000 MG PO (08:33)
[2024-03-11 08:35] VITALS: BP 146/67; PULSE 60; RESP 19; O2SAT 99
[2024-03-11 08:59] VITALS: BP 146/67; PULSE 60; RESP 16; O2SAT 100
== END 2024-03-11 09:01 | disposition home or self-care (01) ==
PROVIDERS: Emergency Provider Student in an Organized Health Care Education/Training Program; PCP Family Medicine
DX: R10.9 Unspecified abdominal pain (principal); M54.50 Low back pain, unspecified; I50.9 Heart failure, unspecified; N40.0 Benign prostatic hyperplasia without lower urinary tract symptoms; F32.A Depression, unspecified; K21.9 Gastro-esophageal reflux disease without esophagitis; E11.9 Type 2 diabetes mellitus without complications; Z79.4 Long term (current) use of insulin
CPT/HCPCS: 36415; 74177; 80053; 81003; 84484; 85025; 93005; 96361; 96374; 96375; 99284; A9270; J1170; J1885; J2405; J7120; Q9967

== ENCOUNTER 2024-12-02 13:15 | Outpatient (CLI) | payer MEDICARE, MEDICAID, SELFPAY ==
--- NOTE | ~2024-12-02 | XR_ITS ---
Right Knee Technique: AP, lateral, and sunrise views were obtained. Clinical History: Injury Findings: No fracture or dislocation is seen. Osseous alignment is anatomic. Joint spaces are preserv ed without degenerative or erosive change. Soft tissues are unremarkable. No joint effusion is seen. Impression: Unremarkable right knee radiographs. Reviewed, dictated and finalized at location . Impression: Unremarkable right knee radiographs.
== END 2024-12-02 13:16 | disposition home or self-care (01) ==
PROVIDERS: PCP Family Medicine; Visit Provider Physician Assistant Medical
DX: S89.91XA Unspecified injury of right lower leg, initial encounter (principal); X58.XXXA Exposure to other specified factors, initial encounter
CPT/HCPCS: 73562

== ENCOUNTER 2025-02-09 08:13 | Outpatient (CLI) | payer MEDICARE, MEDICAID, SELFPAY ==
--- OUTSIDE RECORDS SUMMARY | 2025-02-09 08:22 | XMS_ITS | Clinical Summary ---
Author Organization [facility] Address [address] [place] [address] Phone Care Team Providers Care Spray Pilot Name Role Phone Kenton Ricks MD Primary Care Provider [phone] Allergies Active Allergy Reactions Criticality Noted Date Comments Menthol Other (see comments) Low 09/17/2017 Other reaction(s): Other (See Comments) Moura Skin Moura Skin Meropenem Shortness of breath High 04/11/2022 Tremors, nausea Sulfa Antibiotics Hives Medium 05/05/2021 Medications albuterol HFA (PROVENTIL HFA) 108 (90 Base) MCG/ACT inhaler Inhale 2 puffs 9 Active aspirin (ST RAH) 81 MG EC tablet Take 81 mg by mouth daily 2 Active Blood Glucose Monitoring Suppl (Fifty50 Glucose Meter 2.0) w/Device kit humana true metrix Use daily or as directed for monitoring of diabetes 2 Active budesonide-form oterol (SYMBICORT) 160-4.5 MCG/ACT inhaler Inhale 2 puffs 2 times daily 2 Active glipiZIDE (GLUCOTROL) 5 MG tablet 2 Active True Metrix Blood Glucose Test test strip 2 Active hyoscyamine (LEVSIN) 0.[address] 1 TABLET UNDER THE TONGUE 4 TIMES A DAY NEEDED 2 Active B-D ULTRA-FINE 33 LANCETS misc humana true metrix use to check blood glucose bid 2 Active Linzess 145 MCG capsule Take 1 tablet by mouth 1 (one) time each day 2 Active pantoprazole (PROTONIX) 40 MG EC tablet 2 Active KLOR-CON 20 MEQ CR tablet Take 20 mEq by mouth 2 (two) times a day 2 Active pramipexole (MIRAPEX) 1 MG tablet TAKE 1 TAB BY MOUTH DAILY IN THE MORNING, AND 2 DAILY IN THE EVENING 2 Active spironolactone (ALDACTONE) 25 MG tablet 2 Active tamsulosin (FLOMAX) 0.4 MG 24 hr capsule 2 Active torsemide (DEMADEX) 20 MG tablet TAKE 2 TABLETS BY MOUTH 2 TIMES A DAY. 2 Active cyclobenzaprine (FLEXERIL) 5 MG tablet Take 5 mg by mouth in the morning and 5 mg at noon and 5 mg in the evening. 2 Active NovoLOG FLEXPEN 100 UNIT/ML injection INJECT 5 UNITS UNDER THE SKIN BEFORE MEALS. 2 Active Tresiba FlexTouch 100 UNIT/ML injection INJECT 20 UNITS UNDER SKIN ONCE DAILY 2 Active B-D UF III MINI PEN NEEDLES 31G X 5 MM misc TAKE WITH INSULIN INJECTION 4 TIMES A DAY 2 Active rosuvastatin (CRESTOR) 5 MG tablet TAKE 1 TABLET (5 MG TOTAL) BY MOUTH DAILY. 2 Active triamcinolone (KENALOG) 0.5 % cream 2 Active clindamycin (CLEOCIN) 300 MG capsule 2 Active Active Problems Problem Noted Date Diagnosed Date Urinary tract infectious disease 04/09/2022 Mild intermittent asthma 03/13/2022 Overview (03/13/2022): Last Assessment & Plan: Continue breathing treatment. Pain of left knee region 03/13/2022 Body mass index 40+ - severely obese 09/24/2021 Male hypogonadism 03/29/2020 Hearing loss 03/08/2020 Asymmetrical sensorineural hearing loss 01/19/20 20 Other osteoporosis without current pathological fracture 12/17/2019 Mass of spleen 06/09/2019 Overview (03/13/2022): Last Assessment & Plan: He is agreeable to rescheduling the splenic MRI to further define previously incidentally discovered lesion, to better characterize this and establish follow up as necessary. Order entered. I provided Mr. Greco with the phone # to radiology to call if he does not hear back from the office by next week. Cough 06/09/2019 Overview (03/13/2022): Last Assessment & Plan: This appears to be chronic and persist despite switching from ACEI to ARB. He will contact his early childhood director to follow up regarding this. Acute on chronic diastolic heart failure 019 Overview (03/13/2022): Last Assessment & Plan: Patient is feeling better. states legs have decreased by half. Continue with IV lasix. Continue to monitor Cr and lytes as we diurese. Holding torsemide. Continue aldactone with hold parameters. Dyspnea 08/18/2018 Overview (03/13/2022): Last Assessment & Plan: Patient with complex past medical history with bilateral diaphragmatic paralysis. Also history of Congestive heart failure and mixed sleep apnea. Tilting his currently symptoms are related to COPD exacerbation., most likely related to Congestive heart failure exacerbation with fluid overload. Will continue on telemetry monitoring Diurese with IV Lasix Restart CPAP Will get repeat echocardiogram to reassess cardiac function. Consider Cardiology consult if needed. Mixed sleep apnea 08/18/2018 Overview (03/13/2022): Last Assessment & Plan: Patient has home NPPV which has been reordered. Urinary incontinence 08/18/2018 Overview (03/13/2022): Last Assessment & Plan: Continue with Myrbetriq and vesicare Automatic implantable cardiac defibrillator in s itu 07/26/2018 Overview (03/13/2022): Last Assessment & Plan: Last device interrogation was in July of 2018. No events reported. 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 As we are diuresing, will hold for now to decrease nephrotoxin exposure. Will order topical voltaren for his left leg and lidoderm patch for his back. Fatigue 08/14/2016 Increased frequency of urination 08/14/2016 Type 2 diabetes mellitus 08/14/2016 Overview (03/13/2022): Last Assessment & Plan: Patient on PO hypoglycemics. Monitor on SSI. Lumbago 07/31/2016 Carpal tunnel syndrome 07/19/2016 Triggering of digit 07/19/2016 Nephrolithiasis 03/20/2016 Insomnia 12/16/2015 Ventilatory defect 12/15/2015 Adrenal mass 09/06/2015 Overview (03/13/2022): Last Assessment & Plan: Nodule has not grown on interim imaging. Needs low dose dexamethasone suppression test annually x 5 years since initial evaluation given propensity of some adrenal nodules to become cortisol secreting overtime. Thyroid nodule 09/06/2015 Overview (03/13/2022): Last Assessment & Plan: S/p FNA with benign cytology. Will repeat US in the spring to monitor biopsied thyroid nodule for growth. Hypoglycemia 05/10/2015 Multinodular goiter 05/10/2015 Long QT syndrome 03/19/2015 Hernia of anterior abdominal wall 02/18/2015 Overview (03/13/2022): Last Assessment & Plan: He will follow up with Dr. 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 Continue attention to diet, low carb, exercise as able. Palpitations 10/30/2012 Disorder of lung 08/05/2012 Coronary artery stenosis 02/23/2012 Cardiac murmur 01/24/2012 Edema 01/24/2012 Hyperlipidemia 01/24/2012 Narcolepsy 01/24/2012 Aortic valve disorder 01/19/2012 Blood chemistry abnormal 01/19/2012 Gastric ulcer 02/28/2011 Restless legs 02/28/2011 Overview (03/13/2022): Last Assessment & Plan: Continue mirapex Syncope 02/28/2011 Immunizations Immunization Administration Dates Next Due Influenza (IM) Preservative Free 06/14/2016 Influenza Split 04/01/2017 Influenza, Unspecified 04/01/2021 Sars-cov-2, Unspecified 10/13/2020 Family History Medical History Relation Comments Congestive heart failure Father Diabetes mellitus Father Heart disease Father Neurofibromatosis Father Stroke Father Breast cancer Mother Relation Status Comments Father Mother Social History Tobacco Use Types Packs/Day Years Used Date Smoking Tobacco: Former Cigarettes Smokeless Tobacco: Never Tobacco Cessation:Counseling Given: Not Answered Alcohol Use Standard Drinks/Week Comments Yes 1 (1 standard drink = 0.6 oz pur e alcohol) Sex and Gender Information Value Date Recorded Sex Assigned at Not on file Legal Sex Male 1:30 PM MDT Gender Identity Not on file Sexual Orientation Not on file Last Filed Vital Signs Vital Sign Reading Time Taken Comments Blood Pressure 118/68 05/24/2022 9:24 AM COMPUTER APPLICATIONS ENGINEER Pulse - - Temperature 35.7 C (96.3 F) 05/24/2022 9:24 AM COMPUTER APPLICATIONS ENGINEER Respiratory Rate 18 05/24/2022 9:24 AM COMPUTER APPLICATIONS ENGINEER Oxygen Saturation - - Inhaled Oxygen Concentration - - Weight 126 kg (278 lb) 05/24/2022 9:24 AM COMPUTER APPLICATIONS ENGINEER Height 172.7 cm (5' 8) 05/24/2022 9:24 AM COMPUTER APPLICATIONS ENGINEER Body Mass Index 42.27 05/24/2022 9:24 AM COMPUTER APPLICATIONS ENGINEER Plan of Treatment Health Maintenance Due Date Last Done Comments Pneumococcal PPSV23/PCV13 65 + Years / Low and Medium Risk (1 of 2 - PCV) 2005 Influenza Vaccine (#1) 2025 , 04/01/2017, 06/14/2016 Insurance [employer] MEDICARE ADVANTAGE Care Teams Spray Pilot Relationship Specialty Start Date End Date Kenton Ricks MD [address] [place] [address] PCP - General Family Medicine 02/16/22
--- OUTSIDE RECORDS SUMMARY | 2025-02-09 08:22 | XMS_ITS | Encounter Summary ---
Author Organization [facility] Address [address] [place] [address] Phone Care Team Providers Care Tank Carpenter Name Role Phone Kenton Ricks MD Primary Care Provider + [phone] Kenton Ricks MD Primary Care Provider + [phone] Pebbles Nelson MD Unavailable [phone] Aylin Russ MD Unavailable [phone] Maricruz Ramirez NP Unavailable [phone] Joanne Lopez RN Unavailable Padmini Leatha Carter Unavailable Unavailable Ben Chahal MD PhD Unavailable [phone] Chace Oliva MD Unavailable [phone] Giovanna Alexis MD Unavailable Taisha Suarez RN Unavailable Unavaila Sandra Aguirre MD Unavailable [phone] Abby Higgins MD PhD Unavailable + Adrian Martinez MD Unavailable Vera Pérez Unavailable [phone] Jim Frausto MD Unavailable [phone] Анна Robert RN Unavailable [phone] Encounter Details Date Type Department Care Team (Late st Contact Info) Description 06/02/2016 Orders Only [facility] Provider, MD Max [address] [place] [address] Social History Tobacco Use Types Packs/Day Years Used Date Smoking Tobacco: Never Assessed Sex and Gender Information Value Date Recorded Sex Assigned at Not on file Legal Sex Male 12:58 AM PAID SEARCH MARKETING STRATEGIST Gender Identity Male 11/11/2018 10:31 AM CDT Sexual Orientation Straight 06/09/2019 5: 34 PM PAID SEARCH MARKETING STRATEGIST documented as of this encounter Plan of Treatment Not on file documented as of this encounter Procedures Procedure Name Priority Date/Time Associated Diagnosis Comments CARDIOLOGY REPORT 06/02/2016 documented in this encounter Results * CARDIOLOGY REPORT (06/02/2016) Anatomical Region Laterality Modality Other Narrative 06/02/2016 Ordered by an unspecified provider. Historical Provider [facility] JIMMY GLORIA Final Result documented in this encounter Visit Diagnoses Not on filedocumented in this encounter Additional Health Concerns Infection Onset Date Last Indicated Resolved Time COVID: Suspected 09/21/2020 09/21/2020 09/21/2020 12:08 PM CDT COVID19 09/21/2020 09/21/2020 10/05/2020 3:05 AM CDT COVID: Recovered Comment:Added based on recent COVID infection. 10/05/2020 10/05/2020 02/02/2021 3:05 AM C DT COVID: Suspected 09/23/2021 09/23/2021 09/23/2021 10:23 AM CDT MDR gram neg/ESBL 04/05/2022 07/05/2022 09/22/2022 3:20 PM CDT COVID: Suspected 04/09/2022 04/09/2022 04/09/2022 10:36 PM CDT C. difficile 08/15/2022 08/21/2022 09/22/2022 3:2 0 PM CDT COVID: Suspected 09/21/2022 09/21/2022 09/21/2022 7:46 PM CDT COVID: Suspected 09/22/2022 09/22/2022 09/22/2022 3:05 AM CDT COVID: Suspected 10/08/2022 10/08/2022 10/08/2022 3:57 PM CDT COVID: Suspected 10/28/2022 10/28/2022 10/28/2022 1:05 PM CDT Human metapneumovirus, conta ct + droplet 10/30/2022 10/30/2022 11/06/2022 3:05 AM C DT COVID: Suspected 11/18/2022 11/18/2022 11/18/2022 2:42 PM CDT COVID: Suspected 12/15/2022 12/15/2022 12/15/2022 6:19 AM CDT COVID: Suspected 02/04/2023 02/04/2023 02/04/2023 3:16 PM CDT COVID: Suspected 06/07/2023 06/07/2023 06/07/2023 12:46 PM PAID SEARCH MARKETING STRATEGIST COVID19 06/07/2023 06/07/2023 06/22/2023 3:06 AM PAID SEARCH MARKETING STRATEGIST COVID: Recovered Comment:Added based on recent COVID infection. 06/22/2023 06/22/2023 09/20/2023 3:05 AM C DT COVID: Suspected 07/24/2023 07/24/2023 07/24/2023 3:53 PM PAID SEARCH MARKETING STRATEGIST Diarrhea 07/30/2023 07/30/2023 08/13/2023 3:05 AM PAID SEARCH MARKETING STRATEGIST COVID: Suspected 08/30/2023 08/30/2023 08/30/2023 4:52 PM PAID SEARCH MARKETING STRATEGIST COVID: Suspected 10/12/2023 10/12/2023 10/12/2023 7:57 PM CDT Rhino/Enterovirus 10/12/2023 10/12/2023 10/26/2023 3:05 AM CDT COVID: Suspected 07/10/2024 07/10/2024 07/10/2024 4:53 PM PAID SEARCH MARKETING STRATEGIST COVID: Suspected Comment:07/16/2024 IP Review: no outstanding test, last RPP negative. Mary Tiwari RN 07/16/2024 07/16/2024 10:51 AM PAID SEARCH MARKETING STRATEGIST COVID19 Comment:07/16/2024 IP Review: added by RN, RPP negative. Mary Tiwari RN 07/16/2024 07/16/2024 07/16/2024 10:51 AM PAID SEARCH MARKETING STRATEGIST MRSA Comment:nasalMRSA Isolation Shelter 09/03/24 07/16/2024 08/15/2024 09/03/2024 6:[address] C. difficile suspected 07/19/2024 07/19/202407/19 2:34 PM PAID SEARCH MARKETING STRATEGIST COVID: Suspected 07/23/2024 07/23/2024 07/23/2024 11:28 PM PAID SEARCH MARKETING STRATEGIST C. difficile suspected 07/23/2024 07/24/202407/24 10:31 AM PAID SEARCH MARKETING STRATEGIST Norovirus suspected 07/23/2024 07/24/2024 07/24/19 9:37 AM PAID SEARCH MARKETING STRATEGIST VRE Comment:Contact Precautions (gown and gloves) - not eligible for IP review until 6 months after positive culture - Jerod QURESHI, CONY 10/01/24 07/24/2024 09/20/2024 COVID: Suspected 08/09/2024 08/09/2024 08/09/2024 9:40 AM PAID SEARCH MARKETING STRATEGIST Influenza, adult Comment:08/26/2024 IP Review: pt afebrile but on antipyretics. Needs 24 hours off antipyretics and symptoms significantly improved/resolved in order for isolation to be discontinued. Mary Tiwari RN 08/15/2024 08/15/2024 08/29/2024 3:06 AM PAID SEARCH MARKETING STRATEGIST Coronavirus, droplet 08/15/2024 08/15/202408/29/ 025 3:06 AM PAID SEARCH MARKETING STRATEGIST C. difficile suspected 09/19/2024 09/19/202409/20 3:05 AM CDT C. difficile suspected 09/20/2024 09/20/202409/20 10:39 PM CDT Ring Surveillance Comment:09/21/2024- 5400 [address]. Auris ring surveillance. Becki Peres VIM 5400 09/21/2024 09/21/2024 09/28/2024 3:05 AM C DT Norovirus suspected 09/21/2024 09/21/2024 09/25/19 10:57 AM CDT C. difficile suspected 11/19/2024 11/19/202411/21 7:58 AM CDT Norovirus suspected 11/19/2024 11/19/2024 11/22/19 7:58 AM CDT Rotavirus suspected 11/19/2024 11/19/2024 11/22/19 7:58 AM CDT COVID: Suspected 11/22/2024 11/22/2024 11/23/2024 4:50 AM CDT C. difficile suspected 01/13/2025 01/13/202501/13 12:45 AM CDT Ring Surveillance: C. auris 01/14/2025 01/14/2025 01/21/2025 7:26 PM CDT documented as of this encounter Care Teams Tank Carpenter Relationship Specialty Start Date End Date Kenton Ricks MD PCP - General 08/14/16 Kenton Ricks MD PCP - General 09/17/08 08/13/16 Pebbles Nelson MD Referring Physician Cardiology 02/07/19 Aylin Russ MD [address] [place] [address] Referring Physician Pulmonary Disease 02/07/19 Maricruz Ramirez, DIRECTOR OF ANNUAL GIVING [address] [place] [address] Nurse Practitioner Cardiovascular Disease 09/25/21 Joanne Lopez, RN Registered Nurse Pulmonary Disease 08/24/22 Leatha Cristina RMA Surgical Prehabilitation and Readiness (SPAR) Coordinator 09/01/22 01/02/23 Ben Chahal MD PhD [address] [facility] [address] [place] [address] Medical Oncologist/Adoption Agent Medical Oncology 10/05/22 Chace Oliva MD [address] [facility] [address] [place] [address] Consulting Physician Infectious Diseases 12/22/2204/01 Giovanna Alexis MD [address] [place] [address] Radiation Oncologist Radiation Oncology 03/09/23 Taisha Suarez, people manager Prehabilitation and Readiness (SPAR) Coordinator General Surgery 03/20/23 04/10/23 Sandra Ma MD [address] DIV IM MEDICAL ONCOLOGY, [facility] 7A, 7B, [address] [place] [address] Consulting Physician Medical Oncology 04/25/23 05/09/23 Abby Higgins MD PhD [address] DIV IM MEDICAL ONCOLOGY, [address], [address]B, [address] [place] [address] Medical Oncologist/Adoption Agent Medical Oncology 05/10/23 Adrian Martinez MD [address] DIV SURG TRANSPLANT, [address] [place] [address] Surgical Oncologist Surgical Oncology 05/28/23 Vera Pérez PA [address] [place] [id number] [place] [address] Physician Color Straining Bag Washer Colon and Rectal Surgery 09/13/23 Jim Frausto MD [address] [facility] [id number] [place] [address] Surgeon Colon and Rectal Surgery 11/21/23 Анна Robert, RN [address] [facility] [address] [place] [address] SHOP Outpatient Strategy Execution Consultant 09/29/24 10/01/24 documented as of this encounter
--- OUTSIDE RECORDS SUMMARY | 2025-02-09 08:22 | XMS_ITS | Encounter Summary ---
Author Organization [facility] Address [address] [place] [address] Phone Care Team Providers Care Senior Paralegal Name Role Phone Kenton Ricks MD Primary Care Provider + [phone] Pebbles Nelson MD Unavailable [phone] Aylin Russ MD Unavailable [phone] Maricruz Ramirez NP Unavailable [phone] Joanne Lopez RN Unavailable Padmini Leatha Carter Unavailable Unavailable Ben Chahal MD PhD Unavailable [phone] Chace Oliva MD Unavailable [phone] Giovanna Alexis MD Unavailable Taisha Suarez RN Unavailable Unavaila Sandra Aguirre MD Unavailable [phone] Abby Higgins MD PhD Unavailable + Adrian Martinez MD Unavailable Vera Pérez Unavailable Jim Frausto MD Unavailable [phone] Анна Robert RN Unavailable [phone] Encounter Details Date Type Department Care Team (Late st Contact Info) Description 09/23/[address] [facility] Cardiology [address] [facility] Advanced Medicine 8th [place] [address] [place] [address] Pebbles Nelson MD [address] [facility] [address] [place] [address] Social History Tobacco Use Types Packs/Day Years Used Date Smoking Tobacco: Former Smokeless Tobacco: Never Alcohol Use Standard Drinks/Week Comments Yes 0 (1 standard drink = 0.6 oz pur e alcohol) Occassional Sex and Gender Information Value Date Recorded Sex Assigned at Not on file Legal Sex Male 12:58 AM VP SCIENTIFIC AFFAIRS Gender Identity Male 11/11/2018 10:31 AM CDT Sexual Orientation Straight 06/09/2019 5: 34 PM VP SCIENTIFIC AFFAIRS documented as of this encounter Plan of Treatment Not on file documented as of this encounter Visit Diagnoses Not on filedocumented [...] PM CDT C. difficile 08/15/2022 08/21/2022 09/22/2022 3:20 PM CDT COVID: Suspected 09/21/2022 09/21/2022 09/21/2022 [...] COVID: Suspected 06/07/2023 06/07/2023 06/07/2023 12:46 PM VP SCI[employer] AFFAIRS COVID19 06/07/2023 06/07/2023 06/22/2023 3:06 AM VP SCIENT[employer] AFFAIRS COVID: Recovered Comment:Added based on recent COVID infection. 06/22/2023 06/22/2023 09/20/2023 3:05 AM C DT COVID: Suspected 07/24/2023 07/24/2023 07/24/2023 3:53 PM VP SCI[employer] AFFAIRS Diarrhea 07/30/2023 07/30/2023 08/13/2023 3:05 AM VP SCI[employer] AFFAIRS COVID: Suspected 08/30/2023 08/30/2023 08/30/2023 4:52 PM VP [employer] AFFAIRS COVID: Suspected 10/12/2023 10/12/2023 10/12/2023 7:57 PM CDT Rhino/Enterovirus 10/12/2023 10/12/2023 10/26/2023 3:05 AM CDT COVID: Suspected 07/10/2024 07/10/2024 07/10/2024 4:53 PM VP SCI[employer] AFFAIRS COVID: Suspected Comment:07/16/2024 IP Review: no outstanding test, last RPP negative. Mary Tiwari RN 07/16/2024 07/16/2024 10:51 AM VP [employer] AFFAIRS COVID19 Comment:07/16/2024 IP Review: added by RN, RPP negative. Mary Tiwari RN 07/16/2024 07/16/2024 07/16/2024 10:51 AM VP [employer] AFFAIRS MRSA Comment:nasalMRSA Isolation Custodial 09/03/24 07/16/2024 08/15/2024 09/03/2024 6:[address] C. difficile suspected 07/19/2024 07/19/202407/19 2:34 PM VP [employer] A[employer] COVID: Suspected 07/23/2024 07/23/2024 07/23/2024 11:28 PM VP [employer] AFFA[employer] C. difficile suspected 07/23/2024 07/24/202407/24 10:31 AM VP [employer] AFFAIRS Norovirus suspected 07/23/2024 07/24/2024 07/24/19 9:37 AM VP [employer] AFFAIRS VRE Comment:Contact Precautions (gown and gloves) - not eligible for IP review until 6 months after positive culture - Jerod QURESHI, CONY 10/01/24 07/24/2024 09/20/2024 COVID: Suspected 08/09/2024 08/09/2024 08/09/2024 9:40 AM VP [employer] AFFAIRS Influenza, adult Comment:08/26/2024 IP Review: pt afebrile but on antipyretics. Needs 24 hours off antipyretics and symptoms significantly improved/resolved in order for isolation to be discontinued. Mary Tiwari RN 08/15/2024 08/15/2024 08/29/2024 3:06 AM VP [employer] AFFAIRS Coronavirus, droplet 08/15/2024 08/15/2024 025 3:06 AM VP [employer] AFFAIRS C. difficile suspected 09/19/2024 09/19/202409/20 3:05 AM [...] documented as of this encounter Care Teams Senior Paralegal Relationship Specialty Start Date End Date Kenton Ricks MD PCP - General 08/14/16 Pebbles Nelson MD Referring Physician Cardiology 02/07/19 Aylin Russ MD [id number] [place], [place] [id number] Referring Physician Pulmonary Disease 02/07/19 Maricruz Ramirez NP [address] [facility] [address] [place], [place] [id number] Nurse Practitioner Cardiovascular Disease 09/25/21 Joanne Lopez, RN Registered Nurse Pulmonary Disease 08/24/22 Leatha Cristina RMA Surgical Prehabilitation and Readiness (SPAR) Coordinator 09/01/22 01/02/23 Ben Chahal MD PhD [address] [facility] [address] 2 DIV IM [place]ICAL [place] [address] Medical Oncologist/Boot And Shoe Laborer Medical Oncology 10/05/22 Chace Oliva MD [address] [place] [address] Consulting Physician Infectious Diseases 12/22/2204/01 Giovanna Alexis MD [address] [place] [address] Radiation Oncologist Radiation Oncology 03/09/23 Taisha Suarez RN Surgical Prehabilitation and Readiness (SPAR) Coordinator General Surgery 03/20/23 04/10/23 Sandra Ma MD [address] DIV IM MEDICAL ONCOLOGY, [facility] 7A, 7B, [address] [place] [address] Consulting Physician Medical Oncology 04/25/23 05/09/23 Abby Higgins MD PhD [address] DIV IM MEDICAL ONCOLOGY, [address] [address]A, 7B, [address] [place] [address] Medical Oncologist/Boot And Shoe Laborer Medical Oncology 05/10/23 Adrian Martinez MD [address] DIV SURG TRANSPLANT, [address] [place] [address] Surgical Oncologist Surgical Oncology 05/28/23 Vera Pérez PA [address] [phone] [place] [address] Physician Caustic Plant Worker Colon and Rectal Surgery 09/13/23 Jim Frausto MD [address] [phone] [place] [address] Surgeon Colon and Rectal Surgery 11/21/23 Анна Robert, RN [address] [facility] [address] [place] [address] SHOP Outpatient Fresh Meat Grader 09/29/24 10/01/24 documented as of this encounter
--- OUTSIDE RECORDS SUMMARY | 2025-02-09 08:22 | XMS_ITS | Encounter Summary ---
Author Organization [facility] Address [address] [place] [address] Care Team Providers Care Electric Screw Driver Operator Name Role Phone Kenton Ricks MD Primary Care Provider + [phone] Pebbles Nelson MD Unavailable [phone] Aylin Russ MD Unavailable [phone] Maricruz Ramirez NP Unavailable [phone] Joanne Lopez RN Unavailable Padmini Leatha Carter Unavailable Unavailable Ben Chahal MD PhD Unavailable [phone] Chace Oliva MD Unavailable [phone] Giovanna Alexis MD Unavailable Taisha Suarez RN Unavailable Unavaila Sandra Aguirre MD Unavailable [phone] Abby Higgins MD PhD Unavailable + Adrian Martinez MD Unavailable [phone] Vera Pérez Unavailable Jim Frausto MD Unavailable Анна Robert RN Unavailable [phone] Encounter Details Date Type Department Care Team (Late st Contact Info) Description 08/12/2020 Telephone [facility] [address] [address] Hallie Whitaker, RT Social History Tobacco Use Types Packs/Day Years Used Date Smoking Tobacco: Former Smokeless Tobacco: Never Alcohol Use Standard Drinks/Week Comments Yes 0 (1 standard drink = 0.6 oz pur e alcohol) Occassional Sex and Gender Information Value Date Recorded Sex Assigned at Not on file Legal Sex Male 12:58 AM DIE CASTING MACHINE SETTER Gender Identity Male 11/11/2018 10:31 AM CDT Sexual Orientation Straight 06/09/2019 5: 34 PM DIE CASTING MACHINE SETTER documented as of this encounter Plan of [...] COVID: Suspected 06/07/2023 06/07/2023 06/07/2023 12:46 PM DIE CASTING MACHINE SETTER COVID19 06/07/2023 06/07/2023 06/22/2023 3:06 AM DIE CASTING MACHINE SETTER COVID: Recovered Comment:Added based on recent COVID infection. 06/22/2023 06/22/2023 09/20/2023 3:05 AM C DT COVID: Suspected 07/24/2023 07/24/2023 07/24/2023 3:53 PM DIE CASTING MACHINE SETTER Diarrhea 07/30/2023 07/30/2023 08/13/2023 3:05 AM DIE CASTING MACHINE SETTER COVID: Suspected 08/30/2023 08/30/2023 08/30/2023 4:52 PM DIE CASTING MACHINE SETTER COVID: Suspected 10/12/2023 10/12/2023 10/12/2023 7:57 PM CDT Rhino/Enterovirus 10/12/2023 10/12/2023 10/26/2023 3:05 AM CDT COVID: Suspected 07/10/2024 07/10/2024 07/10/2024 4:53 PM DIE CASTING MACHINE SETTER COVID: Suspected Comment:07/16/2024 IP Review: no outstanding test, last RPP negative. Mary Tiwari RN 07/16/2024 07/16/2024 10:51 AM DIE CASTING MACHINE SETTER COVID19 Comment:07/16/2024 IP Review: added by RN, RPP negative. Mary Tiwari RN 07/16/2024 07/16/2024 07/16/2024 10:51 AM DIE CASTING MACHINE SETTER MRSA Comment:nasalMRSA Isolation [facility] 09/03/24 07/16/2024 08/15/2024 09/03/2024 6:[address] C. difficile suspected 07/19/2024 07/19/202407/19 2:34 PM DIE CASTING MACHINE SETTER COVID: Suspected 07/23/2024 07/23/2024 07/23/2024 11:28 PM DIE CASTING MACHINE SETTER C. difficile suspected 07/23/2024 07/24/202407/24 10:31 AM DIE CASTING MACHINE SETTER Norovirus suspected 07/23/2024 07/24/2024 07/24/19 9:37 AM DIE CASTING MACHINE SETTER VRE Comment:Contact Precautions (gown and gloves) - not eligible for IP review until 6 months after positive culture - Jerod QURESHI, CONY 10/01/24 07/24/2024 09/20/2024 COVID: Suspected 08/09/2024 08/09/2024 08/09/2024 9:40 AM DIE CASTING MACHINE SETTER Influenza, adult Comment:08/26/2024 IP Review: pt afebrile but on antipyretics. Needs 24 hours off antipyretics and symptoms significantly improved/resolved in order for isolation to be discontinued. Mary Tiwari RN 08/15/2024 08/15/2024 08/29/2024 3:06 AM DIE CASTING MACHINE SETTER Coronavirus, droplet 08/15/2024 08/15/202408/29/ 025 3:06 AM DIE CASTING MACHINE SETTER C. difficile suspected 09/19/2024 09/19/202409/20 3:05 AM CDT C. difficile suspected 09/20/2024 09/20/202409/20 10:39 PM CDT Ring Surveillance Comment:09/21/2024- 5400 [address]. [employer] ring surveillance. Becki Howellney VIM 5400 09/21/2024 09/21/2024 09/28/2024 3:05 AM [...] documented as of this encounter Care Teams Electric Screw Driver Operator Relationship Specialty Start Date End Date Kenton Ricks MD PCP - General 08/14/16 Pebbles Nelson MD Referring Physician Cardiology 02/07/19 Aylin Russ MD [address] [address] Referring Physician Pulmonary Disease 02/07/19 Maricruz Ramirez NP [address] [address] Nurse Practitioner Cardiovascular Disease 09/25/21 Joanne Lopez, CONY Registered Nurse Pulmonary Disease 08/24/22 Leatha Cristina RMA Surgical Prehabilitation and Readiness (SPAR) Coordinator 09/01/22 01/02/23 eBn Chahal MD PhD [address] [facility] # 2 [place] [address] Medical Oncologist/Painter Drum Medical Oncology 10/05/22 Chace Oliva MD [address] [facility] [address] [place] [address] Consulting Physician Infectious Diseases 12/22/2204/01 Giovanna Alexis MD [address] [place] [address] Radiation Oncologist Radiation Oncology 03/09/23 Taisha Suarez RN Surgical Prehabilitation and Readiness (SPAR) Coordinator General Surgery 03/20/23 04/10/23 Sandra Ma MD [address] DIV IM MEDICAL ONCOLOGY, [address]A, 7B, [address] [place] [address] Consulting Physician Medical Oncology 04/25/23 05/09/23 Abby Higgins MD PhD [address] DIV IM MEDICAL ONCOLOGY, [facility] 7A, 7B, [address]C [place] [address] Medical Oncologist/Painter Drum Medical Oncology 05/10/23 Adrian Martinez MD [address] DIV SURG TRANSPLANT, [address] [place] [address] Surgical Oncologist Surgical Oncology 05/28/23 Vera Pérez PA [address] [place] [id number] [place] [address] Physician Railway Signal Operator Colon and Rectal Surgery 09/13/23 Jim Frausto MD [address] [facility] [phone] [place] [address] Surgeon Colon and Rectal Surgery 11/21/23 Анна Robert, RN [address] [address] SHOP Outpatient Manager Wastewater 09/29/24 10/01/24 documented as of this encounter
--- OUTSIDE RECORDS SUMMARY | 2025-02-09 08:22 | XMS_ITS | Encounter Summary ---
Author Organization [facility] Address [address] [place] [address] Phone Care Team Providers Care Airline Flight Attendant Name Role Phone Kenton Ricks MD Primary Care Provider + [phone] Pebbles Nelson MD Unavailable [phone] Aylin Russ MD Unavailable [phone] Maricruz Ramirez NP Unavailable [phone] Joanne Lopez RN Unavailable Padmini Leatha Carter Unavailable Unavailable Ben Chahal MD PhD Unavailable [phone] Chace Oliva MD Unavailable [phone] Giovanna Alexis MD Unavailable Taisha Suarez RN Unavailable Unavaila Sandra Aguirre MD Unavailable [phone] Abby Higgins MD PhD Unavailable + Adrian Martinez MD Unavailable [phone] Vera Pérez Unavailable [phone] Jim Frausto MD Unavailable [phone] Анна Robert RN Unavailable [phone] Encounter Details Date Type Department Care Team (Latest Contact Info) Description 12/10/2018 Orders Only [facility] Scanning, Provider Social History Tobacco Use Types Packs/Day Years Used Date Smoking Tobacco: Former Smokeless Tobacco: Never Alcohol Use Standard Drinks/Week Comments Yes 0 (1 standard drink = 0.6 oz pur e alcohol) Occassional Sex and Gender Information Value Date Recorded Sex Assigned at Not on file Legal Sex Male 12:58 AM GUEST ROOM INSPECTOR Gender Identity Male 11/11/2018 10:31 AM CDT Sexual Orientation Straight 06/09/2019 5: 34 PM GUEST ROOM INSPECTOR documented as of this encounter Plan of Treatment Not on file documented as of this encounter Procedures Procedure Name Priority Date/Time Associated Diagnosis Comments SCAN - RADIOLOGY/IMAGING 12/10/2018 SCAN - LABS 12/10/2018 documented in this encounter Results * SCAN - LABS (12/10/2018) us Provider Scanning Final Result * SCAN - RADIOLOGY/IMAGING (12/10/2018) Anatomical Region Laterality Modality Other us Provider Scanning Final Result documented in this encounter Visit [...] COVID: Suspected 06/07/2023 06/07/2023 06/07/2023 12:46 PM GUEST ROOM INSPECTOR COVID19 06/07/2023 06/07/2023 06/22/2023 3:06 AM GUEST ROOM INSPECTOR COVID: Recovered Comment:Added based on recent COVID infection. 06/22/2023 06/22/2023 09/20/2023 3:05 AM C DT COVID: Suspected 07/24/2023 07/24/2023 07/24/2023 3:53 PM GUEST ROOM INSPECTOR Diarrhea 07/30/2023 07/30/2023 08/13/2023 3:05 AM GUEST ROOM INSPECTOR COVID: Suspected 08/30/2023 08/30/2023 08/30/2023 4:52 PM GUEST ROOM INSPECTOR COVID: Suspected 10/12/2023 10/12/2023 10/12/2023 7:57 PM CDT Rhino/Enterovirus 10/12/2023 10/12/2023 10/26/2023 3:05 AM CDT COVID: Suspected 07/10/2024 07/10/2024 07/10/2024 4:53 PM GUEST ROOM INSPECTOR COVID: Suspected Comment:07/16/2024 IP Review: no outstanding test, last RPP negative. Mary Tiwari RN 07/16/2024 07/16/2024 10:51 AM GUEST ROOM INSPECTOR COVID19 Comment:07/16/2024 IP Review: added by RN, RPP negative. Mary Tiwari RN 07/16/2024 07/16/2024 07/16/2024 10:51 AM GUEST ROOM INSPECTOR MRSA Comment:nasalMRSA Isolation [facility] 09/03/24 07/16/2024 08/15/2024 09/03/2024 6:[address] C. difficile suspected 07/19/2024 07/19/202407/19 2:34 PM GUEST ROOM INSPECTOR COVID: Suspected 07/23/2024 07/23/2024 07/23/2024 11:28 PM GUEST ROOM INSPECTOR C. difficile suspected 07/23/2024 07/24/202407/24 10:31 AM GUEST ROOM INSPECTOR Norovirus suspected 07/23/2024 07/24/2024 07/24/19 9:37 AM GUEST ROOM INSPECTOR VRE Comment:Contact Precautions (gown and gloves) - not eligible for IP review until 6 months after positive culture - Jerod QURESHI, CONY 10/01/24 07/24/2024 09/20/2024 COVID: Suspected 08/09/2024 08/09/2024 08/09/2024 9:40 AM GUEST ROOM INSPECTOR Influenza, adult Comment:08/26/2024 IP Review: pt afebrile but on antipyretics. Needs 24 hours off antipyretics and symptoms significantly improved/resolved in order for isolation to be discontinued. Mary Tiwari RN 08/15/2024 08/15/2024 08/29/2024 3:06 AM GUEST ROOM INSPECTOR Coronavirus, droplet 08/15/2024 08/15/202408/29/ 025 3:06 AM GUEST ROOM INSPECTOR C. difficile suspected 09/19/2024 09/19/2024 03/22 /2025 3:05 AM CDT C. difficile suspected 09/20/2024 [...] documented as of this encounter Care Teams Airline Flight Attendant Relationship Specialty Start Date End Date Kenton Ricks MD PCP - General 08/14/16 Pebbles Nelson MD Referring Physician Cardiology 02/07/19 Aylin Russ MD [address] [facility] [address] [place] [address] Referring Physician Pulmonary Disease 02/07/19 Maricruz Ramirez NP [address] [facility] [address] [place] [address] Nurse Practitioner Cardiovascular Disease 09/25/21 Joanne Lopez, CON[place] Registered Nurse Pulmonary Disease 08/24/22 Leatha Cristina RMA Surgical Prehabilitation and Readiness (SPAR) Coordinator 09/01/22 01/02/23 Ben Chahal MD PhD [address] [place] [address] # [address] [place] [address] Medical Oncologist/Adult Specialist Medical Oncology 10/05/22 Chace Oliva MD [address] [facility] [address] [place] [address] Consulting Physician Infectious Diseases 12/22/2204/01 Giovanna Alexis MD [address] [place] [address] Radiation Oncologist Radiation Oncology 03/09/23 Taisha Suarez, financial health counselor Prehabilitation and Readiness (SPAR) Coordinator General Surgery 03/20/23 04/10/23 Sandra Ma MD [address] DIV IM MEDICAL ONCOLOGY, [facility] 7A, 7B, [address] [place] [address] Consulting Physician Medical Oncology 04/25/23 05/09/23 Abby Higgins MD PhD [address] DIV IM MEDICAL ONCOLOGY, [facility] 7A, 7B, [address] [place] [address] Medical Oncologist/Adult Specialist Medical Oncology 05/10/23 Adrian Martinez MD [address] DIV SURG TRANSPLANT, [facility] [address] [place] [address] Surgical Oncologist Surgical Oncology 05/28/23 Vera Pérez PA [address] [place] [phone] [place] [address] Physician Photographic Equipment Inspector Colon and Rectal Surgery 09/13/23 Jim Frausto MD [address] [facility] [phone] [place], [place] [address] Surgeon Colon and Rectal Surgery 11/21/23 Анна Robert, RN [address] [facility] [address] [place] [address] SHOP Outpatient Underwear Welter 09/29/24 10/01/24 documented as of this encounter
--- OUTSIDE RECORDS SUMMARY | 2025-02-09 08:22 | XMS_ITS | Encounter Summary ---
Author Organization [facility] Address [address] [place] [address] Phone Care Team Providers Care Metallurgical Laboratory Assistant Name Role Phone Kenton Ricks MD Primary Care Provider + [phone] Kenton Ricks MD Primary Care Provider + [phone] Pebbles Nelson MD Unavailable Aylin Russ MD Unavailable [phone] Maricruz Ramirez NP Unavailable [phone] Joanne Lopez RN Unavailable Padmini Leatha Carter Unavailable Unavailable Ben Chahal MD PhD Unavailable [phone] Chace Oliva MD Unavailable [phone] Giovanna Alexis MD Unavailable Taisha Suarez RN Unavailable Unavaila Sandra Aguirre MD Unavailable [phone] Abby Higgins MD PhD Unavailable + Adrian Martinez MD Unavailable [phone] Vera Pérez Unavailable [phone] Jim Frausto MD Unavailable [phone] Анна Robert RN Unavailable [phone] Encounter Details Date Type Department Care Team (Late st Contact Info) Description 05/19/2016 Orders Only [facility]INCONV Provider, MD Max [address] [place] [address] Social History Tobacco Use Types Packs/Day Years Used Date Smoking Tobacco: Never Assessed Sex and Gender Information Value Date Recorded Sex Assigned at Not on file Legal Sex Male 12:58 AM COOK CAMP Gender Identity Male 11/11/2018 10:31 AM CDT Sexual Orientation Straight 06/09/2019 5: 34 PM COOK CAMP documented as of this encounter Plan of Treatment Not on file documented as of this encounter Procedures Procedure Name Priority Date/Time Associated Diagnosis Comments CARDIOLOGY REPORT 05/19/2016 CARDIOLOGY REPORT 05/19/2016 documented in this encounter Results * CARDIOLOGY REPORT (05/19/2016) Anatomical Region Laterality Modality Other Narrative 05/19/2016 Ordered by an unspecified provider. Historical Provider CV CARDIAC SERVICES PROCE DURES Final Result * CARDIOLOGY REPORT (05/19/2016) Anatomical Region Laterality Modality Other Narrative 05/19/2016 Ordered by an unspecified provider. Historical Provider CV CARDIAC SERVICES PROCE DURES Final Result documented in this encounter Visit [...] COVID: Suspected 06/07/2023 06/07/2023 06/07/2023 12:46 PM COOK CAMP COVID19 06/07/2023 06/07/2023 06/22/2023 3:06 AM COOK CAMP COVID: Recovered Comment:Added based on recent COVID infection. 06/22/2023 06/22/2023 09/20/2023 3:05 AM C DT COVID: Suspected 07/24/2023 07/24/2023 07/24/2023 3:53 PM COOK CAMP Diarrhea 07/30/2023 07/30/2023 08/13/2023 3:05 AM COOK CAMP COVID: Suspected 08/30/2023 08/30/2023 08/30/2023 4:52 PM COOK CAMP COVID: Suspected 10/12/2023 10/12/2023 10/12/2023 7:57 PM CDT Rhino/Enterovirus 10/12/2023 10/12/2023 10/26/2023 3:05 AM CDT COVID: Suspected 07/10/2024 07/10/2024 07/10/2024 4:53 PM COOK CAMP COVID: Suspected Comment:07/16/2024 IP Review: no outstanding test, last RPP negative. Mary Tiwari RN 07/16/2024 07/16/2024 10:51 AM COOK CAMP COVID19 Comment:07/16/2024 IP Review: added by RN, RPP negative. Mary Tiwari RN 07/16/2024 07/16/2024 07/16/2024 10:51 AM COOK CAMP MRSA Comment:nasalMRSA Isolation Snf 09/03/24 07/16/2024 08/15/2024 09/03/2024 6:[address] C. difficile suspected 07/19/2024 07/19/202407/19 2:34 PM COOK CAMP COVID: Suspected 07/23/2024 07/23/2024 07/23/2024 11:28 PM COOK CAMP C. difficile suspected 07/23/2024 07/24/202407/24 10:31 AM COOK CAMP Norovirus suspected 07/23/2024 07/24/2024 07/24/19 9:37 AM COOK CAMP VRE Comment:Contact Precautions (gown and gloves) - not eligible for IP review until 6 months after positive culture - Jerod QURESHI, CONY 10/01/24 07/24/2024 09/20/2024 COVID: Suspected 08/09/2024 08/09/2024 08/09/2024 9:40 AM COOK CAMP Influenza, adult Comment:08/26/2024 IP Review: pt afebrile but on antipyretics. Needs 24 hours off antipyretics and symptoms significantly improved/resolved in order for isolation to be discontinued. Mary Tiwari RN 08/15/2024 08/15/2024 08/29/2024 3:06 AM COOK CAMP Coronavirus, droplet 08/15/2024 08/15/2024 025 3:06 AM COOK CAMP C. difficile suspected 09/19/2024 09/19/202409/20 3:05 AM [...] documented as of this encounter Care Teams Metallurgical Laboratory Assistant Relationship Specialty Start Date End Date Kenton Ricks MD PCP - General 08/14/16 Kenton Ricks MD PCP - General 09/17/08 08/13/16 Pebbles Nelson MD Referring Physician Cardiology 8/9/19 Aylin Russ MD [address] [place] [address] Referring Physician Pulmonary Disease 02/07/19 Maricruz Ramirez HOUSE WORKER [address] [place] [address] Nurse Practitioner Cardiovascular Disease 09/25/21 Joanne Lopez, RN Registered Nurse Pulmonary Disease 08/24/22 Leatha Cristina RMA Surgical Prehabilitation and Readiness (SPAR) Coordinator 09/01/22 01/02/23 Ben Chahal MD PhD 10 [facility] # 2 [place] [address] Medical Oncologist/Lead Case Manager Medical Oncology 10/05/22 Chace Oliva MD [address] [facility] [address] [place] [address] Consulting Physician Infectious Diseases 12/22/2204/01 Giovanna Alexis MD [address] [place] [address] Radiation Oncologist Radiation Oncology 03/09/23 Taisha Suarez, sql server dba Prehabilitation and Readiness (SPAR) Coordinator General Surgery 03/20/23 04/10/23 Sandra Ma MD [address] DIV IM MEDICAL ONCOLOGY, [address] [address]A, 7B, [address] [place] [address] Consulting Physician Medical Oncology 04/25/23 05/09/23 Abby Higgins MD PhD [address] DIV IM MEDICAL ONCOLOGY, [address] [address]A, [address]B, [address] [place] [address] Medical Oncologist/Lead Case Manager Medical Oncology 05/10/23 Adrian Martinez MD [address] [facility] DIV SURG TRANSPLANT, [facility] [address] [place] [address] Surgical Oncologist Surgical Oncology 05/28/23 Vera Pérez PA [address] [place] [id number] [place] [address] Physician Pi/Senior Research Associate Colon and Rectal Surgery 09/13/23 Jim Frausto MD [address] [facility] [phone] [place] [address] Surgeon Colon and Rectal Surgery 11/21/23 Анна Robert, RN [address] [facility] [address] [place] [address] SHOP Outpatient Pest Controller 09/29/24 10/01/24 documented as of this encounter
--- OUTSIDE RECORDS SUMMARY | 2025-02-09 08:22 | XMS_ITS | Encounter Summary ---
Author Organization [facility] Address [address] [place] [address] Phone Care Team Providers Care Bullet Lubricant Mixer Name Role Phone Kenton Ricks MD Primary Care Provider + [phone] Pebbles Nelson MD Unavailable [phone] Aylin Russ MD Unavailable [phone] Maricruz Ramirez NP Unavailable [phone] Joanne Lopez RN Unavailable Padmini Leatha Carter Unavailable Unavailable Ben Chahal MD PhD Unavailable [phone] Chace Oliva MD Unavailable [phone] Gioavnna Alexis MD Unavailable Taisha Suarez RN Unavailable Unavaila Sandra Aguirre MD Unavailable +[phone] Abby Higgins MD PhD Unavailable + Adrian Martinez MD Unavailable [phone] Vera Pérez Unavailable [phone] Jim Frausto MD Unavailable [phone] Анна Robert RN Unavailable [phone] Encounter Details Date Type Department Care Team (Latest Contact Info) Description 11/15/2017 Orders Only [facility] Scanning, Provider Social History Tobacco Use Types Packs/Day Years Used Date Smoking Tobacco: Former Sex and Gender Information Value Date Recorded Sex Assigned at Not on file Legal Sex Male 12:58 AM KENNEL TECHNICIAN Gender Identity Male 11/11/2018 10:31 AM CDT Sexual Orientation Straight 06/09/2019 5: 34 PM KENNEL TECHNICIAN documented as of this encounter Plan of Treatment Not on file documented as of this encounter Procedures Procedure Name Priority Date/Time Associated Diagnosis Comments CARDIOLOGY DOCUMENT SCAN 11/15/2017 documented in this encounter Results * SCAN - CARDIOLOGY (11/15/2017) Anatomical Region Laterality Modality Other us Provider Scanning CV CARDIAC SERVICES PROCEDURES Final Result documented in this encounter Visit [...] COVID: Suspected 06/07/2023 06/07/2023 06/07/2023 12:46 PM KENNEL TECHNICIAN COVID19 06/07/2023 06/07/2023 06/22/2023 3:06 AM KENNEL TECHNICIAN COVID: Recovered Comment:Added based on recent COVID infection. 06/22/2023 06/22/2023 09/20/2023 3:05 AM C DT COVID: Suspected 07/24/2023 07/24/2023 07/24/2023 3:53 PM KENNEL TECHNICIAN Diarrhea 07/30/2023 07/30/2023 08/13/2023 3:05 AM KENNEL TECHNICIAN COVID: Suspected 08/30/2023 08/30/2023 08/30/2023 4:52 PM KENNEL TECHNICIAN COVID: Suspected 10/12/2023 10/12/2023 10/12/2023 7:57 PM CDT Rhino/Enterovirus 10/12/2023 10/12/2023 10/26/2023 3:05 AM CDT COVID: Suspected 07/10/2024 07/10/2024 07/10/2024 4:53 PM KENNEL TECHNICIAN COVID: Suspected Comment:07/16/2024 IP Review: no outstanding test, last RPP negative. Mary Tiwari RN 07/16/2024 07/16/2024 10:51 AM KENNEL TECHNICIAN COVID19 Comment:07/16/2024 IP Review: added by CLAUDIO DONNELLY negative. Mary Tiwari RN 07/16/2024 07/16/2024 07/16/2024 10:51 AM KENNEL TECHNICIAN MRSA Comment:nasalMRSA Isolation Long-Term 09/03/24 07/16/2024 08/15/2024 09/03/2024 6:[address] C. difficile suspected 07/19/2024 07/19/202407/19 2:34 PM KENNEL TECHNICIAN COVID: Suspected 07/23/2024 07/23/2024 07/23/2024 11:28 PM KENNEL TECHNICIAN C. difficile suspected 07/23/2024 07/24/202407/24 10:31 AM KENNEL TECHNICIAN Norovirus suspected 07/23/2024 07/24/2024 07/24/19 9:37 AM KENNEL TECHNICIAN VRE Comment:Contact Precautions (gown and gloves) - not eligible for IP review until 6 months after positive culture - Jerod QURESHI, CONY 10/01/24 07/24/2024 09/20/2024 COVID: Suspected 08/09/2024 08/09/2024 08/09/2024 9:40 AM KENNEL TECHNICIAN Influenza, adult Comment:08/26/2024 IP Review: pt afebrile but on antipyretics. Needs 24 hours off antipyretics and symptoms significantly improved/resolved in order for isolation to be discontinued. Mary Tiwari RN 08/15/2024 08/15/2024 08/29/2024 3:06 AM KENNEL TECHNICIAN Coronavirus, droplet 08/15/2024 08/15/202408/29/ 025 3:06 AM KENNEL TECHNICIAN C. difficile suspected 09/19/2024 09/19/202409/20 3:05 AM [...] documented as of this encounter Care Teams Bullet Lubricant Mixer Relationship Specialty Start Date End Date Kenton Ricks MD PCP - General 08/14/16 Pebbles Nelson MD Referring Physician Cardiology 02/07/19 Aylin Russ MD [address] [facility] [address] [place] [address] Referring Physician Pulmonary Disease 02/07/19 Maricruz Ramirez NP [address] [facility] [address] [place] [address] Nurse Practitioner Cardiovascular Disease 09/25/21 Joanne Lopez, CONY Registered Nurse Pulmonary Disease 08/24/22 Leatha Cristina RMA Surgical Prehabilitation and Readiness (SPAR) Coordinator 09/01/22 01/02/23 Ben Chahal MD PhD [address] [place] [address] Medical Oncologist/Paper Steamer Medical Oncology 10/05/22 Chace Oliva MD [address] [place] [address] Consulting Physician Infectious Diseases 12/22/2204/01 Giovanna Alexis MD [address] [place] [address] Radiation Oncologist Radiation Oncology 03/09/23 Taisha Suarez RN Surgical Prehabilitation and Readiness (SPAR) Coordinator General Surgery 03/20/23 04/10/23 Sandra Ma MD [address] DIV IM MEDICAL ONCOLOGY, [facility] 7A, 7B, [address] [place] [address] Consulting Physician Medical Oncology 04/25/23 05/09/23 Abby Higgins MD PhD [address] DIV IM MEDICAL ONCOLOGY, [facility] 7A, 7B, [address] [place] [address] Medical Oncologist/Paper Steamer Medical Oncology 05/10/23 Adrian Martinez MD [address] DIV SURG TRANSPLANT, [facility] [address] [place] [address] Surgical Oncologist Surgical Oncology 05/28/23 Vera Pérez PA [address] [place] [id number] [place] [address] Physician Director Of Social Services Colon and Rectal Surgery 09/13/23 Jim Frausto MD [address] [facility] [phone] [place] [address] Surgeon Colon and Rectal Surgery 11/21/23 Анна Robert, RN [address] [facility] [address] [place] [address] SHOP Outpatient Art Editor 09/29/24 10/01/24 documented as of this encounter
--- OUTSIDE RECORDS SUMMARY | 2025-02-09 08:22 | XMS_ITS | Encounter Summary ---
Author Organization [facility] Address [address] [place] [address] Phone Care Team Providers Care Uplands Division Director Name Role Phone Kenton Ricks MD Primary Care Provider + [phone] Pebbles Nelson MD Unavailable [phone] Aylin Russ MD Unavailable [phone] Maricruz Ramirez NP Unavailable [phone] Joanne Lopez RN Unavailable Padmini Leatha Carter Unavailable Unavailable Ben Chahal MD PhD Unavailable [phone] Chace Oliva MD Unavailable [phone] Giovanna Alexis MD Unavailable Taisha Suarez RN Unavailable Unavaila Sandra Aguirre MD Unavailable [phone] Abby Higgins MD PhD Unavailable + Adrian Martinez MD Unavailable [phone] Vera Pérez Unavailable [phone] Jim Frausto MD Unavailable [phone] Анна Robert RN Unavailable [phone] Encounter Details Date Type Department Care Team (Late st Contact Info) Description 07/13/2017 Orders Only [facility] Provider, MD Max [address] [place], [place] [id number] Social History Tobacco Use Types Packs/Day Years Used Date Smoking Tobacco: Former Sex and Gender Information Value Date Recorded Sex Assigned at Not on file Legal Sex Male 12:58 AM BUNDLER SEASONAL GREENERY Gender Identity Male 11/11/2018 10:31 AM CDT Sexual Orientation Straight 06/09/2019 5: 34 PM BUNDLER SEASONAL [employer]ENERY documented as of this encounter Plan of Treatment Not on file documented as of this encounter Procedures Procedure Name Priority Date/Time Associated Diagnosis Comments CARDIOLOGY REPORT 07/13/2017 documented in this encounter Results * CARDIOLOGY REPORT (07/13/2017) Anatomical Region Laterality Modality Other Narrative 07/13/2017 Ordered by an unspecified provider. Historical Provider [...] COVID: Suspected 06/07/2023 06/07/2023 06/07/2023 12:46 PM BUNDLER SEASONAL GREENERY COVID19 06/07/2023 06/07/2023 06/22/2023 3:06 AM BUNDLER SEASONAL GREENERY COVID: Recovered Comment:Added based on recent COVID infection. 06/22/2023 06/22/2023 09/20/2023 3:05 AM C DT COVID: Suspected 07/24/2023 07/24/2023 07/24/2023 3:53 PM BUNDLER SEASONAL GREENERY Diarrhea 07/30/2023 07/30/2023 08/13/2023 3:05 AM BUNDLER SEASONAL GREENERY COVID: Suspected 08/30/2023 08/30/2023 08/30/2023 4:52 PM BUNDLER SEASONAL GREENERY COVID: Suspected 10/12/2023 10/12/2023 10/12/2023 7:57 PM CDT Rhino/Enterovirus 10/12/2023 10/12/2023 10/26/2023 3:05 AM CDT COVID: Suspected 07/10/2024 07/10/2024 07/10/2024 4:53 PM BUNDLER SEASONAL GREENERY COVID: Suspected Comment:07/16/2024 IP Review: no outstanding test, last RPP negative. Mary Tiwari RN 07/16/2024 07/16/2024 10:51 AM BUNDLER SEASONAL GREENERY COVID19 Comment:07/16/2024 IP Review: added by RN, RPP negative. Mary Tiwari RN 07/16/2024 07/16/2024 07/16/2024 10:51 AM BUNDLER SEASONAL [employer] MRSA Comment:nasalMRSA Isolation [facility] 09/03/24 07/16/2024 08/15/2024 09/03/2024 6:[address] C. difficile suspected 07/19/2024 07/19/202407/19 2:34 PM BUNDLER SEASONAL GREENERY COVID: Suspected 07/23/2024 07/23/2024 07/23/2024 11:28 PM BUNDLER SEASONAL GREENERY C. difficile suspected 07/23/2024 07/24/202407/24 10:31 AM BUNDLER SEASONAL GREENERY Norovirus suspected 07/23/2024 07/24/2024 07/24/19 9:37 AM BUNDLER SEASONAL GREENERY VRE Comment:Contact Precautions (gown and gloves) - not eligible for IP review until 6 months after positive culture - Jerod QURESHI, RN 10/01/24 07/24/2024 09/20/2024 COVID: Suspected 08/09/2024 08/09/2024 08/09/2024 9:40 AM BUNDLER SEASONAL GREENERY Influenza, adult Comment:08/26/2024 IP Review: pt afebrile but on antipyretics. Needs 24 hours off antipyretics and symptoms significantly improved/resolved in order for isolation to be discontinued. Mary Tiwari RN 08/15/2024 08/15/2024 08/29/2024 3:06 AM BUNDLER SEASONAL GREENERY Coronavirus, droplet 08/15/2024 08/15/2024 025 3:06 AM BUNDLER SEASONAL GREENERY C. difficile suspected 09/19/2024 09/19/202409/20 3:05 AM [...] documented as of this encounter Care Teams Uplands Division Director Relationship Specialty Start Date End Date Kenton Ricks MD PCP - General 08/14/16 Pebbles Nelson MD Referring Physician Cardiology 02/07/19 Aylin Russ MD [address] [facility] [address] [place] [address] Referring Physician Pulmonary Disease 02/07/19 Maricruz Ramirez NP [address] [facility] [address] [place] [address] Nurse Practitioner Cardiovascular Disease 09/25/21 Joanne Lopez, CONY Registered Nurse Pulmonary Disease 08/24/22 Leatha Cristina RMA Surgical Prehabilitation and Readiness (SPAR) Coordinator 09/01/22 01/02/23 Ben Chahal MD PhD [address] [facility] [address] [place] [address] Medical Oncologist/Mma Fighter Medical Oncology 10/05/22 Chace Oliva MD [address] [facility] [address] [place] [address] Consulting Physician Infectious Diseases 12/22/2204/01 Giovanna Alexis MD [address] [place] [address] Radiation Oncologist Radiation Oncology 03/09/23 Taisha Suarez RN Surgical Prehabilitation and Readiness (SPAR) Coordinator General Surgery 03/20/23 04/10/23 Sandra Ma MD [address] DIV IM MEDICAL ONCOLOGY, [facility] 7A, 7B, [address]C [place] [address] Consulting Physician Medical Oncology 04/25/23 05/09/23 Abby Higgins MD PhD [address] DIV IM MEDICAL ONCOLOGY, [facility] 7A, 7B, [address] [place] [address] Medical Oncologist/Mma Fighter Medical Oncology 05/10/23 Adrian Martinez MD [address] DIV SURG TRANSPLANT, [facility] [place] [address] Surgical Oncologist Surgical Oncology 05/28/23 Vera Pérez PA [address] [place] [phone] [place] [address] Physician Civil Drafter Colon and Rectal Surgery 09/13/23 Jim Frausto MD [address] [phone] [place] [address] Surgeon Colon and Rectal Surgery 11/21/23 Анна Robert, RN [address] [facility] [address] [place], [place] [address] SHOP Outpatient Orthotist 09/29/24 10/01/24 documented as of this encounter
--- OUTSIDE RECORDS SUMMARY | 2025-02-09 08:22 | XMS_ITS | Encounter Summary ---
Author Organization [facility] Address [address] [place] [address] Phone Care Team Providers Care Foot Setter Name Role Phone Kenton Ricks MD Primary Care Provider + [phone] Pebbles Nelson MD Unavailable [phone] Aylin Russ MD Unavailable [phone] Maricruz Ramirez NP Unavailable [phone] Joanne Lopez RN Unavailable Padmini Leatha Carter Unavailable Unavailable Ben Chahal MD PhD Unavailable [phone] Chace Oliva MD Unavailable [phone] Giovanna Alexis MD Unavailable Taisha Suarez RN Unavailable Unavaila Sandra Aguirre MD Unavailable [phone] Abby Higgins MD PhD Unavailable + Adrian Martinez MD Unavailable Vera Pérez Unavailable [phone] Jim Frausto MD Unavailable [phone] Анна Robert RN Unavailable [phone] Encounter Details Date Type Department Care Team (Latest Contact Info) Description 12/14/2016 Orders Only [facility] CON[facility] Scanning, Provider Social History Tobacco Use Types Packs/Day Years Used Date Smoking Tobacco: Never Assessed Sex and Gender Information Value Date Recorded Sex Assigned at Not on file Legal Sex Male 12:58 AM DIRECTOR NEW PRODUCT Gender Identity Male 11/11/2018 10:31 AM CDT Sexual Orientation Straight 06/09/2019 5: 34 PM DIRECTOR NEW PRODUCT documented as of this encounter Plan of Treatment Not on file documented as of this encounter Procedures Procedure Name Priority Date/Time Associated Diagnosis Comments PULMONARY FUNCTION TEST (PFT) 12/14/2016 12:51 PM CDT documented in this encounter Results * PULMONARY FUNCTION TEST (PFT) (12/14/2016 12:51 PM CDT) Anatomical Region Laterality Modality PFT us Provider Scanning PFT ORDERABLES Final Result documented in this encounter Visit [...] COVID: Suspected 06/07/2023 06/07/2023 06/07/2023 12:46 PM DIRECTOR NEW PRODUCT COVID19 06/07/2023 06/07/2023 06/22/2023 3:06 AM DIRECTOR NEW PRODUCT COVID: Recovered Comment:Added based on recent COVID infection. 06/22/2023 06/22/2023 09/20/2023 3:05 AM C DT COVID: Suspected 07/24/2023 07/24/2023 07/24/2023 3:53 PM DIRECTOR NEW PRODUCT Diarrhea 07/30/2023 07/30/2023 08/13/2023 3:05 AM DIRECTOR NEW PRODUCT COVID: Suspected 08/30/2023 08/30/2023 08/30/2023 4:52 PM DIRECTOR NEW PRODUCT COVID: Suspected 10/12/2023 10/12/2023 10/12/2023 7:57 PM CDT Rhino/Enterovirus 10/12/2023 10/12/2023 10/26/2023 3:05 AM CDT COVID: Suspected 07/10/2024 07/10/2024 07/10/2024 4:53 PM DIRECTOR NEW PRODUCT COVID: Suspected Comment:07/16/2024 IP Review: no outstanding test, last RPP negative. Mary Tiwari RN 07/16/2024 07/16/2024 10:51 AM DIRECTOR NEW PRODUCT COVID19 Comment:07/16/2024 IP Review: added by RN, RPP negative. Mary Tiwari RN 07/16/2024 07/16/2024 07/16/2024 10:51 AM DIRECTOR NEW PRODUCT MRSA Comment:nasalMRSA Isolation [facility] 09/03/24 07/16/2024 08/15/2024 09/03/2024 6:[address] C. difficile suspected 07/19/2024 07/19/202407/19 2:34 PM DIRECTOR NEW PRODUCT COVID: Suspected 07/23/2024 07/23/2024 07/23/2024 11:28 PM DIRECTOR NEW PRODUCT C. difficile suspected 07/23/2024 07/24/202407/24 10:31 AM DIRECTOR NEW PRODUCT Norovirus suspected 07/23/2024 07/24/2024 07/24/19 9:37 AM DIRECTOR NEW PRODUCT VRE Comment:Contact Precautions (gown and gloves) - not eligible for IP review until 6 months after positive culture - Jerod QURESHI, CONY 10/01/24 07/24/2024 09/20/2024 COVID: Suspected 08/09/2024 08/09/2024 08/09/2024 9:40 AM DIRECTOR NEW PRODUCT Influenza, adult Comment:08/26/2024 IP Review: pt afebrile but on antipyretics. Needs 24 hours off antipyretics and symptoms significantly improved/resolved in order for isolation to be discontinued. Mary Tiwari RN 08/15/2024 08/15/2024 08/29/2024 3:06 AM DIRECTOR NEW PRODUCT Coronavirus, droplet 08/15/2024 08/15/2024 025 3:06 AM DIRECTOR NEW PRODUCT C. difficile suspected 09/19/2024 09/19/202409/20 3:05 AM [...] documented as of this encounter Care Teams Foot Setter Relationship Specialty Start Date End Date Kenton Ricks MD PCP - General 08/14/16 Pebbles Nelson MD Referring Physician Cardiology 02/07/19 Aylin Russ MD [address] [address] Referring Physician Pulmonary Disease 02/07/19 Maricruz Ramirez NP [address] [facility] [address] [place], [place] [address] Nurse Practitioner Cardiovascular Disease 09/25/21 Joanne Lopez, RN Registered Nurse Pulmonary Disease 08/24/22 Leatha Cristina RMA Surgical Prehabilitation and Readiness (SPAR) Coordinator 09/01/22 01/02/23 Ben Chahal MD PhD [address] [facility] [address] [place] [address] Medical Oncologist/Registered Health Nurse Medical Oncology 10/05/22 Chace Oliva MD [address] [facility] [address] [place] [address] Consulting Physician Infectious Diseases 12/22/2204/01 Giovanna Alexis MD [address] [place] [address] Radiation Oncologist Radiation Oncology 03/09/23 Taisha Suarez RN Surgical Prehabilitation and Readiness (SPAR) Coordinator General Surgery 03/20/23 04/10/23 Sandra Ma MD [address] DIV IM MEDICAL ONCOLOGY, [facility] 7A, 7B, [address] [place] [address] Consulting Physician Medical Oncology 04/25/23 05/09/23 Abby Higgins MD PhD [address] DIV IM MEDICAL ONCOLOGY, [facility] 7A, 7B, [address] [place] [address] Medical Oncologist/Registered Health Nurse Medical Oncology 05/10/23 Adrian Martinez MD [address] DIV SURG TRANSPLANT, [facility] [address] [place] [address] Surgical Oncologist Surgical Oncology 05/28/23 Vera Pérez PA [address] [place] [phone] [place] [address] Physician Ultrasound Technologist Sonographer Colon and Rectal Surgery 09/13/23 Jim Frausto MD [address] [phone] [place] [address] Surgeon Colon and Rectal Surgery 11/21/23 Анна Robert, RN [address] [facility] [address] [place], [place] [address] SHOP Outpatient Electronic Health Records Specialist 09/29/24 10/01/24 documented as of this encounter
--- OUTSIDE RECORDS SUMMARY | 2025-02-09 08:22 | XMS_ITS | Encounter Summary ---
Author Organization [facility] Address [address] [place] [address] Phone Care Team Providers Care Patternmaker Wood Name Role Phone Kenton Ricks MD Primary Care Provider + [phone] Pebbles Nelson MD Unavailable [phone] Aylin Russ MD Unavailable [phone] Maricruz Ramirez NP Unavailable [phone] Joanne Lopez RN Unavailable Padmini Leatha Carter Unavailable Unavailable Ben Chahal MD PhD Unavailable [phone] Chace Oliva MD Unavailable [phone] Giovanna Alexis MD Unavailable Taisha Suarez RN Unavailable Unavaila Sandra Aguirre MD Unavailable +[phone] Abby Higgins MD PhD Unavailable + Adrian Martinez MD Unavailable [phone] Vera Pérez Unavailable [phone] Jim Frausto MD Unavailable [phone] Анна Robert RN Unavailable [phone] Encounter Details Date Type Department Care Team (Latest Contact Info) Description 08/22/2020 Orders Only [facility] Scanning, Provider Social History Tobacco Use Types Packs/Day Years Used Date Smoking Tobacco: Former Smokeless Tobacco: Never Alcohol Use Standard Drinks/Week Comments Yes 0 (1 standard drink = 0.6 oz pur e alcohol) Occassional Sex and Gender Information Value Date Recorded Sex Assigned at Not on file Legal Sex Male 12:58 AM CASING GRADER Gender Identity Male 11/11/2018 10:31 AM CDT Sexual Orientation Straight 06/09/2019 5: 34 PM CASING GRADER documented as of this encounter Plan of Treatment Not on file documented as of this encounter Procedures Procedure Name Priority Date/Time Associated Diagnosis Comments PULMONARY - RESULT SCAN 02/20/2021 SLEEP LAB/STUDY - RESULT 08/22/2020 documented in this encounter Results * PULMONARY - RESULT SCAN (02/20/2021) Anatomical Region Laterality Modality Other us Provider Scanning Final Result * SLEEP LAB/STUDY - RESULT (08/22/2020) us Provider Scanning Final Result documented in [...] COVID: Suspected 06/07/2023 06/07/2023 06/07/2023 12:46 PM CASING GRADER COVID19 06/07/2023 06/07/2023 06/22/2023 3:06 AM CASING GRADER COVID: Recovered Comment:Added based on recent COVID infection. 06/22/2023 06/22/2023 09/20/2023 3:05 AM C DT COVID: Suspected 07/24/2023 07/24/2023 07/24/2023 3:53 PM CASING GRADER Diarrhea 07/30/2023 07/30/2023 08/13/2023 3:05 AM CASING GRADER COVID: Suspected 08/30/2023 08/30/2023 08/30/2023 4:52 PM CASING GRADER COVID: Suspected 10/12/2023 10/12/2023 10/12/2023 7:57 PM CDT Rhino/Enterovirus 10/12/2023 10/12/2023 10/26/2023 3:05 AM CDT COVID: Suspected 07/10/2024 07/10/2024 07/10/2024 4:53 PM CASING GRADER COVID: Suspected Comment:07/16/2024 IP Review: no outstanding test, last RPP negative. Mary Tiwari RN 07/16/2024 07/16/2024 10:51 AM CASING GRADER COVID19 Comment:07/16/2024 IP Review: added by RN, RPP negative. Mary Tiwari RN 07/16/2024 07/16/2024 07/16/2024 10:51 AM CASING GRADER MRSA Comment:nasalMRSA Isolation Nursing Home 09/03/24 07/16/2024 08/15/2024 09/03/2024 6:[address] C. difficile suspected 07/19/2024 07/19/202407/19 2:34 PM CASING GRADER COVID: Suspected 07/23/2024 07/23/2024 07/23/2024 11:28 PM CASING GRADER C. difficile suspected 07/23/2024 07/24/202407/24 10:31 AM CASING GRADER Norovirus suspected 07/23/2024 07/24/2024 07/24/19 9:37 AM CASING GRADER VRE Comment:Contact Precautions (gown and gloves) - not eligible for IP review until 6 months after positive culture - Jerod QURESHI, CONY 10/01/24 07/24/2024 09/20/2024 COVID: Suspected 08/09/2024 08/09/2024 08/09/2024 9:40 AM CASING GRADER Influenza, adult Comment:08/26/2024 IP Review: pt afebrile but on antipyretics. Needs 24 hours off antipyretics and symptoms significantly improved/resolved in order for isolation to be discontinued. Mary Tiwari RN 08/15/2024 08/15/2024 08/29/2024 3:06 AM CASING GRADER Coronavirus, droplet 08/15/2024 08/15/202408/29/ 025 3:06 AM CASING GRADER C. difficile suspected 09/19/2024 09/19/202409/20 3:05 AM CDT C. difficile suspected 09/20/2024 09/20/202409/20 10:39 PM CDT Ring Surveillance Comment:09/21/2024- 5400 C. Auris ring surveillance. Becki MONTERROSO 5400 09/21/2024 09/21/2024 09/28/2024 3:05 AM C [...] documented as of this encounter Care Teams Patternmaker Wood Relationship Specialty Start Date End Date Kenton Ricks MD PCP - General 08/14/16 Pebbles Nelson MD Referring Physician Cardiology 02/07/19 Aylin Russ MD [address] [place], [place] [id number] Referring Physician Pulmonary Disease 02/07/19 Maricruz Ramirez NP [address] [place] [address] Nurse Practitioner Cardiovascular Disease 09/25/21 Joanne Lopez, RN Registered Nurse Pulmonary Disease 08/24/22 Leatha Cristina RMA Surgical Prehabilitation and Readiness (SPAR) Coordinator 09/01/22 01/02/23 Ben Chahal MD PhD 10 [facility] # 2 [place] [address] Medical Oncologist/Neurology Teacher Medical Oncology 10/05/22 Chace Oliva MD [address] [facility] [address] [place] [address] Consulting Physician Infectious Diseases 12/22/2204/01 Giovanna Alexis MD [address] [place] [address] Radiation Oncologist Radiation Oncology 03/09/23 Taisha Suarez, cloth winding supervisor Prehabilitation and Readiness (SPAR) Coordinator General Surgery 03/20/23 04/10/23 Sandra Ma MD [address] DIV IM MEDICAL ONCOLOGY, [facility] 7A, 7B, 7C [place] [address] Consulting Physician Medical Oncology 04/25/23 05/09/23 Abby Higgins MD PhD [address] DIV IM MEDICAL ONCOLOGY, [facility] 7A, 7B, [address]C [place] [address] Medical Oncologist/Neurology Teacher Medical Oncology 05/10/23 Adrian Martinez MD [address] DIV SURG TRANSPLANT, [address] [place] [address] Surgical Oncologist Surgical Oncology 05/28/23 Vera Pérez PA [address] [place] [id number] [place] [address] Physician Director Call Center Sales Colon and Rectal Surgery 09/13/23 Jim Frausto MD [address] [facility] [phone] [place], [place] [id number] Surgeon Colon and Rectal Surgery 11/21/23 Анна Robert, RN [address] [facility] [address] [place], [place] [id number] SHOP Outpatient Swine Genetics Researcher 09/29/24 10/01/24 documented as of this encounter
--- OUTSIDE RECORDS SUMMARY | 2025-02-09 08:22 | XMS_ITS | Encounter Summary ---
Author Organization [facility] Address [address] [place] [address] Phone Care Team Providers Care Head Orthopedic Team Physician Name Role Phone Kenton Ricks MD Primary Care Provider + [phone] Pebbles Nelson MD Unavailable [phone] Aylin Russ MD Unavailable [phone] Maricruz Ramirez NP Unavailable [phone] Joanne Lopez RN Unavailable Padmini Leatha Carter Unavailable Unavailable Ben Chahal MD PhD Unavailable [phone] Chace Oliva MD Unavailable [phone] Giovanna Alexis MD Unavailable Taisha Suarez RN Unavailable Unavaila Sandra Aguirre MD Unavailable [phone] Abby Higgins MD PhD Unavailable + Adrian Martinez MD Unavailable Vera Pérez Unavailable Jim Frausto MD Unavailable Анна Robert RN Unavailable Encounter Details Date Type Department Care Team (Late st Contact Info) Description 08/10/2020 Telephone [facility] Cardiology [address] [facility] Medicine 8th [place] [address] [place] [address] Pebbles Nelson MD [address] [facility] [address] [place] [address] Social History Tobacco Use Types Packs/Day Years Used Date Smoking Tobacco: Former Smokeless Tobacco: Never Alcohol Use Standard Drinks/Week Comments Yes 0 (1 standard drink = 0.6 oz pur e alcohol) Occassional Sex and Gender Information Value Date Recorded Sex Assigned at Not on file Legal Sex Male 12:58 AM BLUEPRINT ASSEMBLER Gender Identity Male 11/11/2018 10:31 AM CDT Sexual Orientation Straight 06/09/2019 5: 34 PM BLUEPRINT ASSEMBLER documented as of this encounter Plan of [...] COVID: Suspected 06/07/2023 06/07/2023 06/07/2023 12:46 PM BLUEPRINT ASSEMBLER COVID19 06/07/2023 06/07/2023 06/22/2023 3:06 AM BLUEPRINT ASSEMBLER COVID: Recovered Comment:Added based on recent COVID infection. 06/22/2023 06/22/2023 09/20/2023 3:05 AM C DT COVID: Suspected 07/24/2023 07/24/2023 07/24/2023 3:53 PM BLUEPRINT ASSEMBLER Diarrhea 07/30/2023 07/30/2023 08/13/2023 3:05 AM BLUEPRINT ASSEMBLER COVID: Suspected 08/30/2023 08/30/2023 08/30/2023 4:52 PM BLUEPRINT ASSEMBLER COVID: Suspected 10/12/2023 10/12/2023 10/12/2023 7:57 PM CDT Rhino/Enterovirus 10/12/2023 10/12/2023 10/26/2023 3:05 AM CDT COVID: Suspected 07/10/2024 07/10/2024 07/10/2024 4:53 PM BLUEPRINT ASSEMBLER COVID: Suspected Comment:07/16/2024 IP Review: no outstanding test, last RPP negative. Mary Tiwari RN 07/16/2024 07/16/2024 10:51 AM BLUEPRINT ASSEMBLER COVID19 Comment:07/16/2024 IP Review: added by RN, RPP negative. Mary Tiwari RN 07/16/2024 07/16/2024 07/16/2024 10:51 AM BLUEPRINT ASSEMBLER MRSA Comment:nasalMRSA Isolation Skilled Nursing 09/03/24 07/16/2024 08/15/2024 09/03/2024 6:[address] C. difficile suspected 07/19/2024 07/19/202407/19 2:34 PM BLUEPRINT ASSEMBLER COVID: Suspected 07/23/2024 07/23/2024 07/23/2024 11:28 PM BLUEPRINT ASSEMBLER C. difficile suspected 07/23/2024 07/24/202407/24 10:31 AM BLUEPRINT ASSEMBLER Norovirus suspected 07/23/2024 07/24/2024 07/24/19 9:37 AM BLUEPRINT ASSEMBLER VRE Comment:Contact Precautions (gown and gloves) - not eligible for IP review until 6 months after positive culture - Jerod QURESHI, CONY 10/01/24 07/24/2024 09/20/2024 COVID: Suspected 08/09/2024 08/09/2024 08/09/2024 9:40 AM BLUEPRINT ASSEMBLER Influenza, adult Comment:08/26/2024 IP Review: pt afebrile but on antipyretics. Needs 24 hours off antipyretics and symptoms significantly improved/resolved in order for isolation to be discontinued. Mary Tiwari RN 08/15/2024 08/15/2024 08/29/2024 3:06 AM BLUEPRINT ASSEMBLER Coronavirus, droplet 08/15/2024 08/15/2024 025 3:06 AM BLUEPRINT ASSEMBLER C. difficile suspected 09/19/2024 09/19/202409/20 3:05 AM CDT C. difficile suspected 09/20/2024 09/20/202409/20 10:39 PM CDT Ring Surveillance Comment:09/21/2024- 5400 C. Auris ring surveillance. Becki Larisa VIM 5400 09/21/2024 09/21/2024 09/28/2024 3:05 AM [...] documented as of this encounter Care Teams Head Orthopedic Team Physician Relationship Specialty Start Date End Date Kenton Ricks MD PCP - General 08/14/16 Pebbles Nelson MD Referring Physician Cardiology 02/07/19 Aylin Russ MD [address] [id number] Referring Physician Pulmonary Disease 02/07/19 Maricruz Ramirez NP [address] [facility] [address]052 [place], [place] [address] Nurse Practitioner Cardiovascular Disease 09/25/21 Joanne Lopez, RN Registered Nurse Pulmonary Disease 08/24/22 Leatha Cristina RMA Surgical Prehabilitation and Readiness (SPAR) Coordinator 09/01/22 01/02/23 Ben Chahal MD PhD [address] [facility] [address] DIV [place] [address] Medical Oncologist/Finisher Polisher Medical Oncology 10/05/22 Chace Oliva MD [address] [place] [address] Consulting Physician Infectious Diseases 12/22/2204/01 Giovanna Alexis MD [address] [place] [address] Radiation Oncologist Radiation Oncology 03/09/23 Taisha Suarez RN Surgical Prehabilitation and Readiness (SPAR) Coordinator General Surgery 03/20/23 04/10/23 Sandra Ma MD [address] DIV IM MEDICAL ONCOLOGY, [facility] 7A, 7B, 7C [place] [address] Consulting Physician Medical Oncology 04/25/23 05/09/23 Abby Higgins MD PhD [address] DIV IM MEDICAL ONCOLOGY, [address]A, 7B, [address] [place] [address] Medical Oncologist/Finisher Polisher Medical Oncology 05/10/23 Adrian Martinez MD [address] DIV SURG TRANSPLANT, [address] [place] [address] Surgical Oncologist Surgical Oncology 05/28/23 Vera Pérez PA [address] [phone] [place] [address] Physician Form Press Operator Colon and Rectal Surgery 09/13/23 Jim Frausto MD [address] [phone] [place] [address] Surgeon Colon and Rectal Surgery 11/21/23 Анна Robert, RN 45[address] [facility] [address] [place] [address] SHOP Outpatient Manager Of Financial Planning 09/29/24 10/01/24 documented as of this encounter
--- OUTSIDE RECORDS SUMMARY | 2025-02-09 08:22 | XMS_ITS | Encounter Summary ---
Author Organization [facility] Address [address] [place] [address] Care Team Providers Care Rattle Leak And Squeak Repairer Name Role Phone Kenton Ricks MD Primary Care Provider + [phone] Pebbles Nelson MD Unavailable [phone] Aylin Russ MD Unavailable [phone] Maricruz Ramirez NP Unavailable [phone] Joanne Lopez RN Unavailable Padmini Leatha Carter Unavailable Unavailable Ben Chahal MD PhD Unavailable [phone] Chace Oliva MD Unavailable [phone] Giovanna Alexis MD Unavailable Taisha Suarez RN Unavailable Unavaila Sandra Aguirre MD Unavailable [phone] Abby Higgins MD PhD Unavailable + Adrian Martinez MD Unavailable [phone] Vera Pérez Unavailable Jim Frausto MD Unavailable [phone] Анна Robert RN Unavailable Encounter Details Date Type Department Care Team (Late st Contact Info) Description 06/15/2020 Telephone [facility] Radiology [address] [place] [address] Adalberto Zavala MD [address] [place] [address] Social History Tobacco Use Types Packs/Day Years Used Date Smoking Tobacco: Former Smokeless Tobacco: Never Alcohol Use Standard Drinks/Week Comments Yes 0 (1 standard drink = 0.6 oz pur e alcohol) Occassional Sex and Gender Information Value Date Recorded Sex Assigned at Not on file Legal Sex Male 12:58 AM REINSTATEMENT CLERK Gender Identity Male 11/11/2018 10:31 AM CDT Sexual Orientation Straight 06/09/2019 5: 34 PM REINSTATEMENT CLERK documented as of this encounter Plan of [...] COVID: Suspected 06/07/2023 06/07/2023 06/07/2023 12:46 PM REINSTATEMENT CLERK COVID19 06/07/2023 06/07/2023 06/22/2023 3:06 AM REINSTATEMENT CLERK COVID: Recovered Comment:Added based on recent COVID infection. 06/22/2023 06/22/2023 09/20/2023 3:05 AM C DT COVID: Suspected 07/24/2023 07/24/2023 07/24/2023 3:53 PM REINSTATEMENT CLERK Diarrhea 07/30/2023 07/30/2023 08/13/2023 3:05 AM REINSTATEMENT CLERK COVID: Suspected 08/30/2023 08/30/2023 08/30/2023 4:52 PM REINSTATEMENT CLERK COVID: Suspected 10/12/2023 10/12/2023 10/12/2023 7:57 PM CDT Rhino/Enterovirus 10/12/2023 10/12/2023 10/26/2023 3:05 AM CDT COVID: Suspected 07/10/2024 07/10/2024 07/10/2024 4:53 PM REINSTATEMENT CLERK COVID: Suspected Comment:07/16/2024 IP Review: no outstanding test, last RPP negative. Mary Tiwari, RN 07/16/2024 07/16/2024 10:51 AM REINSTATEMENT CLERK COVID19 Comment:07/16/2024 IP Review: added by CLAUDIO DONNELLY negative. Mary Tiwari RN 07/16/2024 07/16/2024 07/16/2024 10:51 AM REINSTATEMENT CLERK MRSA Comment:nasalMRSA Isolation Alf 09/03/24 07/16/2024 08/15/2024 09/03/2024 6:[address] C. difficile suspected 07/19/2024 07/19/202407/19 2:34 PM REINSTATEMENT CLERK COVID: Suspected 07/23/2024 07/23/2024 07/23/2024 11:28 PM REINSTATEMENT CLERK C. difficile suspected 07/23/2024 07/24/202407/24 10:31 AM REINSTATEMENT CLERK Norovirus suspected 07/23/2024 07/24/2024 07/24/19 9:37 AM REINSTATEMENT CLERK VRE Comment:Contact Precautions (gown and gloves) - not eligible for IP review until 6 months after positive culture - Jerod QURESHI, CONY 10/01/24 07/24/2024 09/20/2024 COVID: Suspected 08/09/2024 08/09/2024 08/09/2024 9:40 AM REINSTATEMENT CLERK Influenza, adult Comment:08/26/2024 IP Review: pt afebrile but on antipyretics. Needs 24 hours off antipyretics and symptoms significantly improved/resolved in order for isolation to be discontinued. Mary Tiwari RN 08/15/2024 08/15/2024 08/29/2024 3:06 AM REINSTATEMENT CLERK Coronavirus, droplet 08/15/2024 08/15/202408/29/ 025 3:06 AM REINSTATEMENT CLERK C. difficile suspected 09/19/2024 09/19/202409/20 3:05 AM CDT C. difficile suspected 09/20/2024 09/20/202409/20 10:39 PM CDT Ring Surveillance Comment:09/21/2024- 5400 C. Auris ring surveillance. Becki Peres VIM 5400 09/21/2024 09/21/202409/2809/28/2024 3:05 AM C DT Norovirus suspected 09/21/2024 [...] documented as of this encounter Care Teams Rattle Leak And Squeak Repairer Relationship Specialty Start Date End Date Kenton Ricks MD PCP - General 08/14/16 Pebbles Nelson MD Referring Physician Cardiology 02/07/19 Aylin Russ MD [address] [facility] [address] [place] [address] Referring Physician Pulmonary Disease 02/07/19 Maricruz Ramirez NP [address] [facility] [address] [place] [address] Nurse Practitioner Cardiovascular Disease 09/25/21 Joanne Lopez, CONY Registered Nurse Pulmonary Disease 08/24/22 Leatha Cristina RMA Surgical Prehabilitation and Readiness (SPAR) Coordinator 09/01/22 01/02/23 Ben Chahal MD PhD [address] [facility] [address] [place] [address] Medical Oncologist/Program Paraprofessional Medical Oncology 10/05/22 Chace Oliva MD [address] [place] [address] Consulting Physician Infectious Diseases 12/22/2204/01 Giovanna Alexis MD [address] [place] [address] Radiation Oncologist Radiation Oncology 03/09/23 Taisha Suarez RN Surgical Prehabilitation and Readiness (SPAR) Coordinator General Surgery 03/20/23 04/10/23 Sandra Ma MD [address] DIV IM MEDICAL ONCOLOGY, [facility] 7A, 7B, [address] [place] [address] Consulting Physician Medical Oncology 04/25/23 05/09/23 Abby Higgins MD PhD [address] DIV IM MEDICAL ONCOLOGY, [facility] 7A, 7B, [address] [place] [address] Medical Oncologist/Program Paraprofessional Medical Oncology 05/10/23 Adrian Martinez MD [address] DIV SURG TRANSPLANT, [facility] [address] [place] [address] Surgical Oncologist Surgical Oncology 05/28/23 Vera Pérez PA [address] MD [phone] [place] [address] Physician Account Executive [employer] Colon and Rectal Surgery 09/13/23 Jim Frausto MD [address] [facility] [phone] [place] [address] Surgeon Colon and Rectal Surgery 11/21/23 Анна Robert, RN [address] [facility] [address] [place] [address] SHOP Outpatient Poolroom/Poolhall Manager 09/29/24 10/01/24 documented as of this encounter
--- OUTSIDE RECORDS SUMMARY | 2025-02-09 08:23 | XMS_ITS | Patient Health Record ---
Author Organization 1 OF Kristopher jaimes DPM [facility] Address [address] [place] [id number] Reason For Referral No Information Plan Of Treatment No Information
--- OUTSIDE RECORDS SUMMARY | 2025-02-09 08:23 | XMS_ITS | Clinical Summary ---
Author Organization [facility] Address [address] [place], [place] [address] Care Team Providers Care Property Claims Adjuster Name Role Phone Ivonne Alcantar PA-C Primary Care Provider [phone] Social History Tobacco Use Types Packs/Day Years Used Date Smoking Tobacco: Never Assessed Sex and Gender Information Value Date Recorded Sex Assigned at Not on file Legal Sex Male 1:15 PM CDT Gender Identity Not on file Sexual Orientation Not on file Plan of Treatment Health Maintenance Due Date Last Done Comments Colorectal Cancer Screening Colonoscopy (10 Years) 1955 Hepatitis C 1973 DTaP, Tdap and Td Vaccines ( 1 - Tdap) 1974 Pneumococcal Vaccine: 50+ Ye ars (1 of 1 - PCV) 2005 Zoster Vaccines (1 of 2) 2005 COVID-19 Vaccine ( - 2023-2 5 season) 2024 RSV Immunization or 60+ Years (1 - 1-dose 75+ series) 2030 Meningococcal B Vaccine Aged Out No l onger eligible based on patient's age to complete this topic Meningococcal Vaccine Aged Out No sials cecilio eligible based on patient's age to complete this topic RSV Immunizations Under 20 Months Aged Out No longer eligible based on patient's age to complete this topic Insurance MEDICAID Care Teams Property Claims Adjuster Relationship Specialty Start Date End Date Ivonne Alcantar PA-C [address] [facility] [place] [address] PCP - General CIVIL ENGINEERING TECHNICIAN 12/06/21
--- OUTSIDE RECORDS SUMMARY | 2025-02-09 08:24 | XMS_ITS ---
Author Organization [facility] Address [address] [place] [address] Care Team Providers Care Obstetrics Gyn Physician Name Role Phone Kenton Ricks MD Primary Care Provider + [phone] Pebbles Nelson MD Unavailable [phone] Aylin Russ MD Unavailable [phone] Maricruz Ramirez NP Unavailable [phone] Joanne Lopez RN Unavailable Padmini Ben Walker MD PhD Unavailable [phone] Giovanna Alexis MD Unavailable Abby Higgins MD PhD Unavailable + Adrian Martinez MD Unavailable [phone] Vera Pérez Unavailable [phone] Jim Frausto MD Unavailable [phone] Active Problems Problem Noted Date Diagnosed Date Acute on chronic abdominal pain 12/09/2024 Assessment & Plan (01/15/2025 11:15 AM CDT): Presented with acute on chronic abdominal pain and diarrhea. Prior admissions with similar symptoms and established with GI for these symptoms in 09/2024. Previous EGD/colonoscopy normal in October 2024 -Labs mostly unremarkable with normal WBC, Hgb 10.9 (stable), Cr stable, electrolytes normal, lipase normal. -CT abd/pelvis with contrast read with no acute findings. Noted post op changes of whipple, unchanged indeterminate left renal lesion, non obstructing left renal stone, fat containing ventral hernia. -Pain control with lidocaine patch to abdomen, tylenol prn, , oxycodone prn (has been out at home), GI cocktail prn (has been out at home), and dilaudid 0.2 mg q4h prn breakthrough pain -Increased gabapentin to 600mg TID and schedule bentyl -Patient requesting to eat, diet as tolerated -GI recs pain management referral, will place as outpatient. -Discharge home today as no further inpatient evaluation indicated. Assessment & Plan (01/14/2025 11:42 AM CDT): Presented with acute on chronic abdominal pain and diarrhea. Prior admissions with similar symptoms and established with GI for these symptoms in 09/2024. Previous EGD/colonoscopy normal in October 2024 -Labs mostly unremarkable with normal WBC, Hgb 10.9 (stable), Cr stable, electrolytes normal, lipase normal. -CT abd/pelvis with contrast read with no acute findings. Noted post op changes of whipple, unchanged indeterminate left renal lesion, non obstructing left renal stone, fat containing ventral hernia. -Pain control with lidocaine patch to abdomen, tylenol prn, , oxycodone prn (has been out at home), GI cocktail prn (has been out at home), and dilaudid 0.2 mg q4h prn breakthrough pain -Increase gabapentin to 600mg TID and schedule bentyl -Patient requesting to eat, diet as tolerated -GI recs pain management referral, will place as outpatient. Assessment & Plan (01/13/2025 12:04 PM CDT): Presented with acute on chronic abdominal pain and diarrhea. Prior admissions with similar symptoms and established with GI for these symptoms in 09/2024. -Labs mostly unremarkable with normal WBC, Hgb 10.9 (stable), Cr stable, electrolytes normal, lipase normal. -CT abd/pelvis with contrast read with no acute findings. Noted post op changes of whipple, unchanged indeterminate left renal lesion, non obstructing left renal stone, fat containing ventral hernia. -Stool culture ordered in ED- though he reports BM is not watery -Pain control with lidocaine patch to abdomen, gabapentin 300 mg TID, tylenol prn, bentyl prn, oxycodone prn (has been out at home), GI cocktail prn (has been out at home), and dilaudid 0.5 mg q4h prn breakthrough pain -Patient requesting to eat, diet as tolerated Assessment & Plan (01/13/2025 1:06 AM CDT): Presented with acute on chronic abdominal pain and diarrhea. Prior admissions with similar symptoms and established with GI for these symptoms in 09/2024. -Labs mostly unremarkable with normal WBC, Hgb 10.9 (stable), Cr stable, electrolytes normal, lipase normal. -CT abd/pelvis with contrast prelim read with no acute findings. Noted post op changes of whipple, unchanged indeterminate left renal lesion, non obstructing left renal stone, fat containing ventral hernia. -Stool culture ordered in ED -Pain control with lidocaine patch to abdomen, gabapentin 300 mg TID, tylenol prn, bentyl prn, oxycodone prn (has been out at home), GI cocktail prn (has been out at home), and dilaudid 0.5 mg q4h prn breakthrough pain -Patient requesting to eat, diet as tolerated Assessment & Plan (12/10/2024 7:36 AM CDT): P/w worsening epigastric abdominal discomfort started about 3-4 days ago. Also reports of having black stools at home. - CT abdomen and pelvis with and without contrast performed and revealed postsurgical changes of Whipple procedure with unchanged soft tissue thickening around the celiac trunk and superior mesenteric artery. - GI consulted and recommended PPI b.i.d., Bentyl PRN, and GI cocktail PRN for discomfort. No indication for endoscopy at this time. - Increase the gabapentin to 300 mg t.i.d. - Monitor H&H - Monitor/take picture of next bowel movement Assessment & Plan (12/09/2024 2:52 PM CDT): P/w worsening epigastric abdominal discomfort started about 3-4 days ago. Also reports of having black stools at home. - CT abdomen and pelvis with and without contrast performed and revealed postsurgical changes of Whipple procedure with unchanged soft tissue thickening around the celiac trunk and superior mesenteric artery. - GI consulted and recommended PPI b.i.d., Bentyl PRN, and GI cocktail PRN for discomfort. No indication for endoscopy at this time. - Increase the gabapentin to 300 mg t.i.d. - Monitor H&H - Monitor/take picture of next bowel movement Dark stools 12/09/2024 Assessment & Plan (12/10/2024 11:41 AM CDT): Reports of having 3 episodes of dark colored stools yesterday. Review of stools appear brown with component of streaked red (photos under media tab). - Hgb 11.4 on admission, 10.9 today - Continue PPI BID, switched to home dose PO daily at discharge - Monitor H&H Assessment & Plan (12/09/2024 2:43 PM CDT): Reports of having 3 episodes of dark colored stools yesterday. Review of stools appear brown with component of streaked red (photos under media tab). 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 Had unremarkable EGD/colonoscopy 11/11/24. 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 Had unremarkable EGD/colonoscopy 11/11/24. 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 Had unremarkable EGD/colonoscopy 11/11/24. 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 Had unremarkable EGD/colonoscopy 11/11/24. -Reports some drops of blood in stool, Hgb stable, trend -Follow up stool culture -Continue Creon -Consider GI consult Acute colitis 09/20/2024 Assessment & Plan (11/24/2024 9:51 AM CDT): Presenting with abd pain and blood in stool - Ddx includes infectious, ischemic or inflammatory CT a/p suggestive of possible ischemia near hepatic flexure. Stool studies were ordered on admission but were not obtained because he did not have a BM for 2 days - hence canceled. He was started on supportive care with IV fluids, IV Zosyn, IV nausea and pain meds. Has improved clinically, his IV fluids were discontinued and was started on clear liquid diet and advanced as tolerated. Antibiotics have been switched to p.o.. His diet was advanced to regular diet and was tolerating well. He had a few bowel movements without any blood in it. Plan to discharge home on p.o. Augmentin to complete a 10 day course of antibiotics. Script also send for p.r.n. Zofran and p.r.n. oxycodone Assessment & Plan (11/23/2024 9:48 AM CDT): Presenting with abd pain and blood in stool - Ddx includes infectious, ischemic or inflammatory CT a/p suggestive of possible ischemia near hepatic flexure. Stool studies were ordered on admission but were not obtained because he did not have a BM for 2 days - hence canceled. He was started on supportive care with IV fluids, IV Zosyn, IV nausea and pain meds. Has improved clinically, his IV fluids were discontinued and was started on clear liquid diet and advanced as tolerated. Antibiotics have been switched to p.o.. - Advanced to salt diet. Reg diet. - following - CRC: No surgical recommendations > signed off. Assessment & Plan (11/22/2024 12:07 PM CDT): Presenting with abd pain and blood in stool - Ddx includes infectious, ischemic or inflammatory CT a/p suggestive of possible ischemia near hepatic flexure. Stool studies were ordered on admission but were not obtained because he did not have a BM for 2 days - hence canceled. He was started on supportive care with IV fluids, IV Zosyn, IV nausea and pain meds. Has improved clinically, his IV fluids were discontinued and was started on clear liquid diet and advanced as tolerated. Antibiotics have been switched to p.o.. - Currently on FL D > we will advance to soft diet if stable - GI consulted - following - CRC: No surgical recommendations > signed off. Assessment & Plan (11/21/2024 11:50 AM CDT): Presenting with abd pain and blood in stool - Ddx includes infectious, ischemic or inflammatory - CT a/p suggestive of possible ischemia near hepatic flexure - Continue IVFs, IV zosyn - PRN IV morphine, zofran - Stool studies ordered - GI consulted - CRC following Assessment & Plan (11/20/2024 11:11 AM CDT): Presenting with abd pain and blood in stool - Ddx includes infectious, ischemic or inflammatory - CT a/p suggestive of possible ischemia near hepatic flexure -Continue IVFs, IV zosyn -PRN IV morphine, zofran -stool studies ordered -GI consulted -CRC following Assessment & Plan (11/20/2024 1:36 AM CDT): -presenting with pain and blood in stool -Ddx includes infectious, ischemic or inflammatory -CT a/p suggestive of possible ischemia near hepatic flexure; no obvious perf on CT but he did undergo recent colonoscopy with random biopsies making colonscopy related injury a possibility; however the time frame of symptom onset is not consistent with that -will continue zosyn 4.5 g IV q6 for now -CLD then NPO p MN, IVFs overnight -PRN IV morphine, zofran -stool studies -GI consult in AM Left eye pain 08/23/2024 Assessment & Plan (08/26/2024 3:51 PM MANAGER [employer]): The patient reported left eye pain with intermittent blurred vision. A CT scan of the maxilofacial bones were ordered for a suspected sinusitis, came back negative. Augmentin and Flonase were started but Augmentin was discontinued after the CT results. Pt reported episodes of floaters, ophthalmology consulted. Exam was notable for posterior vitreous detachment and superficial punctate epithelial erosions. No acute interventions deemed necessary Started refresh p.m. ointment q.h.s. Hematemesis 08/11/2024 Assessment & Plan (08/26/2024 4:05 PM MANAGER OF CREATIVE SERVICES): Patient developed hematemesis on 08/11 with hypotension and subsequent hemorrhagic shock require ICU transfer and vasopressor support. Underwent EGD with non- bleeding duodenal ulcer with oozing hemorrhage s/p cautery and epinephrine. Then developed increasing pressor requirement, worsening melena and bloody NGT output with CTA showing active extrav in stomach and repeat EGD with non-bleeding gastric ulcer, s/p heater probe and clip. Hgb now stabilized. Continued melena. GI s/o. Final recs: PPI BID PO x 12 weeks; Carafate QID PO x 12 weeks will need to reach out to GILBERTO Lopez with private GI service prior to discharge to coordinate outpatient EGD in 12 weeks Trend hgb, keep active T&S, transfuse >7 High urine uric acid level 08/04/2024 Assessment & Plan (08/22/2024 10:54 PM MANAGER [employer]): Started allopurinol this admission Moderate protein-calorie malnutrition 07/31/2024 Assessment & Plan (11/24/2024 9:17 AM CDT): RD consulted Assessment & Plan (11/23/2024 9:48 AM CDT): RD consulted Assessment & Plan (11/22/2024 12:07 PM CDT): RD consulted Assessment & Plan (11/21/2024 11:50 AM CDT): RD consulted Assessment & Plan (09/23/2024 7:28 AM CDT): Per RD Note 09/22/24: AAIM (ASPEN) MALNUTRITION ASSESSMENT: Date of completion: 09/22 ASPEN/AND Malnutrition Screening: Chronic illness or injury mild/moderate Energy Intake: < 75% energy intake compared to estimated energy needs > (or equal to) 1 month Muscle Mass Loss Severity: Mild/Moderate Patient Meets Criteria for Moderate Malnutrition: Yes Hydronephrosis of kidney transplant 07/23/2024 ABLA (acute blood loss anemia) 07/23/2024 Duodenal ulcer 07/23/2024 Oral candidiasis 07/16/2024 Assessment & Plan (07/20/2024 11:28 AM MANAGER [employer]): - Resulted with Nystatin Anal fissure 11/21/2023 Assessment & Plan (01/15/2025 11:15 AM CDT): -Continue prn lidocaine KS and nifedipine ointment Assessment & Plan (01/14/2025 11:42 AM CDT): -Continue prn lidocaine KS and nifedipine ointment Assessment & Plan (01/13/2025 12:04 PM CDT): -Continue prn lidocaine KS and nifedipine ointment Assessment & Plan (01/13/2025 1:06 AM CDT): -Continue prn lidocaine KS and nifedipine ointment Assessment & Plan (12/10/2024 7:36 AM CDT): On psyllium and nifedipine ointment - Resume psyllium daily - Nifedipine ointment is non formulary here Assessment & Plan (12/09/2024 2:43 PM CDT): On psyllium and nifedipine ointment - Resume psyllium daily - Nifedipine ointment is non formulary here 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 Assessment & Plan (11/23/2024 9:48 AM CDT): - psyllium qAM, added miralax daily - Added lidocaine jelly qid prn - Sitz baths BID - Will try to start topical CCB - cannot obtain her at [facility] Assessment & Plan (11/22/2024 12:07 PM CDT): - psyllium qAM, added miralax daily - Added lidocaine jelly qid prn - Sitz baths BID - Will try to start topical CCB - cannot obtain her at [facility] Assessment & Plan (11/21/2024 11:50 AM CDT): - psyllium qAM, added miralax daily - Added lidocaine jelly qid prn - Sitz baths BID - Will try to start topical CCB - cannot obtain her at [facility] Assessment & Plan (11/20/2024 11:11 AM CDT): -psyllium qAM - Added lidocaine jelly qid prn - Sitz baths BID - Will try to start topical CCB Assessment & Plan (11/20/2024 1:33 AM CDT): -psyllium qAM -can discuss CCB ointment with pharmacy in AM Abnormal stress test 11/09/2023 Constipation 10/14/2023 Assessment & Plan (10/15/2023 2:35 PM CDT): Cont linzess Cont senna docusate Give bisacodyl x1 +flatus, no bm Feels very bloated Haim simethicone Stop haim msir Consider adjustment of pramipexole if persistent issue. Assessment & Plan (10/14/2023 5:03 PM CDT): Cont linzess Added senna docusate +flatus, no bm Feels very bloated Haim his simethicone Hold haim msir Consider adjustment of pramipexole if persistent issue. Shortness of breath 10/13/2023 Lymphadenopathy 10/13/2023 Assessment & Plan (10/15/2023 2:35 PM CDT): F/u with Dr. Chahal Assessment & Plan (10/13/2023 2:03 PM CDT): F/u with Dr. Chahal Thyroid nodule 10/13/2023 Assessment & Plan (10/15/2023 2:33 PM CDT): 1.7 r thyroid nodule Lab Results Component Value Date TSH 2.85 10/12/2023 Needs OP f/u imaging Assessment & Plan (10/13/2023 2:02 PM CDT): 1/7 r thyroid nodule Lab Results Component Value Date TSH 2.85 10/12/2023 Needs OP f/u imaging Rhinovirus 10/13/2023 Assessment & Plan (10/15/2023 2:34 PM CDT): Reports hx copd, vick on ppv, and diaphragmatic paralysis cont airway clearance and IS Cont inhalers He has diminished volumes but no crackles or wheezes Cont hycodan, chloraseptic On RA this am Home o2 eval ordered Possible dc 10/15 Cont ppv qhs Assessment & Plan (10/14/2023 5:00 PM CDT): Reports hx copd, 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, and diaphragmatic paralysis Will add airway clearance and IS Cont inhalers He has diminished volumes but no crackles or wheezes Cxr rev/int- pulm edema gone Cont hycodan, chloraseptic Wean O2 Cont ppv qhs VICK (obstructive sleep apnea) 10/13/2023 Assessment & Plan (11/24/2024 9:17 AM CDT): -CPAP at [facility] Assessment & Plan (11/23/2024 9:48 AM CDT): -CPAP at [facility] Assessment & Plan (11/22/2024 12:07 PM CDT): -CPAP at [facility] Assessment & Plan (11/21/2024 11:50 AM CDT): -CPAP at [facility] Assessment & Plan (11/20/2024 11:11 AM CDT): -CPAP at [facility] Assessment & Plan (11/20/2024 1:34 AM CDT): -CPAP at [facility] Assessment & Plan (10/15/2023 2:34 PM CDT): xCont ppv qhs Assessment & Plan (10/13/2023 2:03 PM CDT): Cont ppv qhs COPD (chronic obstructive pulmonary disease) Assessment & Plan (08/26/2024 4:00 PM MANAGER [employer]): Cont. breo ellipta, prn albuterol Iron deficiency anemia 10/13/2023 Assessment & Plan (10/15/2023 2:35 PM CDT): Iron dextran allergy Lab Results Component Value Date FERRITIN 168 10/12/2023 TSAT 7 Assessment & Plan (10/13/2023 2:05 PM CDT): Iron dextran allergy Lab Results Component Value Date FERRITIN 168 10/12/2023 TSAT 7 Acute on chronic heart failu re with preserved ejection fraction 10/12/2023 Assessment & Plan (10/15/2023 2:36 PM CDT): Dc lasix IV Torsemide 60 mg po bid Bmp, mg in am Cont toni Consider sglt2i Assessment & Plan (10/14/2023 5:02 PM CDT): Small effusion seen on admit ct was also small on prior tte He comes with crackles, le edema, elevated bnp Cont toni Consider sglt2i Crackles gone, cxr rev/int Cmu rev/int Still has le edema- cont lasix 40 IV bid Right bundle branch block 08/08/2023 Anorexia 07/25/2023 Assessment & Plan (07/26/2023 12:35 PM MANAGER OF [employer]): - Likely multifactorial 2/2 malignancy, recent whipple, chemotherapy, and pain - Very poor PO intake - RD c/s - Started Mirtazapine - Dietary supplementation - Increased Creon as above Malaise 07/24/2023 Assessment & Plan (07/25/2023 2:16 PM MANAGER [employer]): - RVP negative - Improving Kidney lesion 07/21/2023 Assessment & Plan (07/25/2023 2:21 PM MANAGER OF [employer]): - Left renal cyst noted since at least 2017. - CT AP (07/20) - unchanged indeterminate 1 cm hypoattenuating lesion in the left kidney - JENNIFER (07/24) - small exophytic renal lesion difficult to visualize with US d/t its anterior medial location. An approx 2 cm convexity at the medial midpole of the left kidney noted, which is internally echogenic and not definitely cystic - Discussed with oncology. Will defer to patient's primary Oncologist for ongoing monitoring. Epigastric pain 07/20/2023 Assessment & Plan (07/26/2023 12:33 PM MANAGER OF CRE[employer]): - Acute on chronic epigastric pain following EGD with associated nausea and transient febrile episode. Reports poor oral intake for 2-3 weeks. - EGD 07/20) - healed gastric ulceration with previously placed endoscopic clip in situ. Widely patent pylorus-sparing Whipple, characterized by healthy appearing mucosa was found in the duodenum - CT AP w contrast (07/20) - without acute findings and stable postsurgical Whipple related changes - Started on IV zosyn in ED on 07/20. Lactate 1, UA -ve for infection. BCx2 obtained. Low suspicion for infection. Zosyn discontinued on 07/21 - Colonoscopy (07/23) - small internal hemorrhoids. Tattoo seen in the ascending colon. Colon is otherwise normal in appearance. Random biopsies of left and right colon negative. - continue home prn oxycodone for pain. Prn antiemetics for nausea - Likely 2/2 adhesions from prior surgery and distended GIT from insufflation from EGD and later colonoscopy - Improving with Simethicone, Bowel regimen, increased Creon Hematochezia 07/20/2023 Hypokalemia 07/09/2023 Assessment & Plan (07/24/2023 5:22 PM MANAGER OF [employer]): - Replace per protocol Acute hypoxemic respiratory failure due to COVID -19 06/07/2023 Assessment & Plan (06/12/2023 3:47 PM MANAGER OF CREATIVE SERVICES): Presented with 3 days of fever, dry cough, SOB. SO2 on admission was 87% on RA, RVP + Covid 2019, Chest X ray without pneumonia -CPAP overnight (for VICK), no O2 requirements - sp Remdesivir (06/07-06/11) -held of steroids due to no evidence of pneumonia on imaging and no high O2 requirements - cw antitussives and antipyretics prn -symptomatically improved, discharge home today. Lives with and adult son at home, no concerns about mobility or functionality Class 1 obesity due to exces s calories with serious comorbidity and body mass index (BMI) of 34.0 to 34.9 in adult 06/01/2023 H/O Whipple procedure 05/30/2023 Gastrointestinal hemorrhage 05/30/2023 Assessment & Plan (07/14/2024 12:30 PM MANAGER OF CREATIVE SERVICES): History of Postoperative GI bleed. EGD 05/09/23 showed gastric ulcer with oozing hemorrhage. Treated with clips/ thermal therapy and epi injections. Required 7 units of pRBC. On Omeprazole 40 mg BID. Repeat EGD on 07/20/23 showed completley healed gastric ulceration. Colonoscopy 07/23/23 normal. Capsule endoscopy on 03/13/24. No evidence of bleeding currently. -PPI BID Proctitis 03/17/2023 Assessment & Plan (03/20/2023 9:01 AM CDT): Denies any insertion other than enemas and suppositories. Feels like he is constipated and unable to have BM except for mud like stool. No fevers. S/P manual disimpaction in the ED. No concern for radiation proctitis. He has been started on Cipro/Flagyl for infectious proctitis. -Cdiff neg. Stool cxs NGTD -Bowel regimen -On anusol suppository. -Symptoms improving Medication overuse headache 03/07/2023 Intractable chronic migraine without aura and without status migrainosus 03/07/2023 Sepsis 02/05/2023 Assessment & Plan (02/13/2023 7:23 AM CDT): RESOLVED The patient p/w fevers and rigors ISO multiple recent admissions for gram- negative (E. Coli) and gram-positive (S. Epi) sepsis w/ likely source pancreatic-biliary and concern for abscess after recent discharge in November on CTX/Flagyl for similar complaint. Assessment: - Urine colonized by Klebsiella, otherwise appears non-infectious this admission - RVP negative - CXR w/o overt consolidation - CT C/A/P w/ colitis of transverse colon Microbiology: - 02/04 BCx x2 NGTD - 02/04 RPP 02/04 negative - 12/14 BCx w/ 1 of 2 (+) E. coli Anti-infectives: - Cefepime 02/04-02/07 - Linezolid 02/04-02/07 - Metronidazole 02/05-02/07 Plan: - Continue observing off of antibiotics Neurogenic bladder 02/05/2023 Assessment & Plan (07/21/2023 2:06 AM MANAGER OF [employer]): Also has Hx of prostate cancer s/p prostatectomy. Takes gemtesa at home which is not on formulary - continue home oxybutynin and flomax Assessment & Plan (02/09/2023 3:46 PM CDT): Patient presented w/ low urine output and asymptomatic urinary retention, required straight cath in [facility], currently voiding and emptying appropriately - Stimulator is in, reportedly off for a long time, but has not yet followed up with urology for removal - bladder scans spread out to q12h, PRN straight caths - cont home vibegron per formulary -> mirabegron, - cont tamsulosin Failure to thrive in adult 02/05/2023 Assessment & Plan (02/05/2023 12:36 AM CDT): Patient reporting deconditioning and subjective weakness. - PT/OT/RD consults GERD (gastroesophageal reflux disease) Assessment & Plan (03/18/2023 1:31 AM CDT): Continue PPI Assessment & Plan (02/05/2023 12:40 AM CDT): Continue home PPI. Fever, unspecified fever cause 02/04/2023 Scrotal pain 01/16/2023 Assessment & Plan (01/16/2023 1:11 PM CDT): - Presentation similar to previous episode of epididymitis. Urine culture at that time with ESBL Klebsiella. - UA w/ reflex to micro and culture today - Will give one dose of fosfomycin today and arrange for IM gentamicin to be given this week. If no improvement after antibiotic treatment will arrange for scrotal ultrasound. Encounter for screening exam ination for sexually transmitted disease 01/16/2023 Melena 12/20/2022 Assessment & Plan (12/22/2022 1:56 PM CDT): New symptoms of melena 12/19/22 after a severe episode of epistaxis overnight requiring ENT packing. -suspect melena is secondary to ingested blood -Symptoms ongoing but patient HD stable with stable hemoglobin -patient's expressed significant concern regarding ongoing symptoms despite reassurance and counseling. GI consulted. GI also favors melena is secondary to epistaxis. -PO PPI BID. Patient instructed to restart eliquis on 12/25/[address] Chahal if still having melena on 12/25 before restarting. -home infusion lab check on 12/25/22 E coli bacteremia 12/15/2022 Assessment & Plan (12/19/2022 6:24 PM CDT): Blood cultures 12/14 1 of 2 positive for E. Coli (pansusceptible). CT A/P 12/14 noted 9 mm hypoattenuating lesion c/f liver abscess. Source of bacteremia favored to be hepatobiliary by ID given prior stents & ERCPs. -ID consulted. Recommended 4 weeks of IV ceftriaxone & PO flagyl (start 12/16, no firm stop until re-evaluated in ID clinic). Received cefe (12/14 - 12/16) -Repeat blood cultures 12/15 negative. Liver abscess 12/15/2022 Assessment & Plan (01/16/2023 1:09 PM CDT): - Completed ceftriaxone and flagyl yesterday. No recent fevers. Abdominal pain at baseline. He had imaging on 01/05 that continues to show liver lesions that are now more concerning for malignancy instead of infection. MRI of abdomen scheduled for tomorrow. - Will follow up on imaging scheduled for tomorrow and if it continues to show liver lesions are concerning for malignancy and not infection no further antibiotics will be needed - Ok to de-access port this week after MRI. Clinic RN to send orders to home health Assessment & Plan (12/19/2022 6:26 PM CDT): Seen on CT 12/14/22. Treatment with abx as discussed elsewhere Cellulitis 12/15/2022 Assessment & Plan (12/21/2022 3:47 PM CDT): Noted to have new RLE pain, swelling, and erythema on admission c/f cellulitis. - LED neg for dvt. - improved with abx. S/p linezolid 12/14 - 12/18. Transitioned to doxycycline (12/19 - 12/20) to complete 7 day course. Elevated transaminase level 11/21/2022 Assessment & Plan (08/26/2024 4:05 PM MANAGER OF CREATIVE [employer]): The patient presented with elevated alkaline phosphatase (ALP) and transaminase levels, which were higher than baseline, with unknown etiology. A comprehensive work-up was conducted to determine the cause. Work-up: Hepatitis panel: Negative MRCP on 08/05: No intrahepatic bile duct dilation in the setting of a hepaticojejunostomy. Similar appearance of late enhancing soft tissue surrounding the celiac axis and superior mesenteric artery, with stable severe narrowing of the portosplenic confluence. Medication review: Checked current meds on the liver tox database, none were associated with significantly increased risk of drug-induced liver injury (DILI). Reglan (metoclopramide) had a likelihood score of C. EUS on 08/07: No significant pathology in the left lobe of the liver or pancreatic tail. CA 19-9: 62.7 U/mL GGT: 512 U/L>>239U/L 08/24: ALP is slowly uptrending again, with AST/ALT back to normal levels. EUS liver biopsy on 08/08: Showed minimal to mild portal and lobular mixed inflammation but no steatosis, fibrosis, cholestasis, or bile duct injury. Pt was seen and evaluated by GI and hepatology Will cont to trend ALP and consider re-engaging them back with any concerns Per hepatology no role in Ursodiol given the absence of cholestasis Assessment & Plan (11/23/2022 7:38 PM CDT): New cholestatic elevation of LFT's along with RUQ/epigastric pain and nausea concerning for possible occlusion of CBD stent - initially placed 08/24 and replaced with metal stent 09/08/22. Liver US showed no intrahepatic biliary dilation (which had been present in the past) but unable to visualize CBD and pancreas. CT not concerning for stent malfunction and he is symptomatically improving. Possible that LFT's related to the known liver lesion which appears unchanged and for which he is scheduled MRI in December at [facility] (requires cardiac monitoring due to ICD) - he is hoping to have this done sooner. Ileus 11/21/2022 Assessment & Plan (07/20/2024 11:29 AM MANAGER OF CREATIVE [employer]): - KUB done 07/13 showing ileus without obstruction - Was placed NPO, received IVF - miralax BID and senokot BID added to his linzess regimen. S/p enema 07/13 with one bowel movement. S/p tap water enema 07/14 without success - Senna-Colace 2 tabs BID, Miralax daily. No Mg based laxative d/t hyperMg. - Movantik (07/15-07/16) - Resolved. Changed bowel reg to prn. Resumed diet. Assessment & Plan (11/23/2022 7:43 PM CDT): Patient notes 20 days hospitalization with ileus early this year which was treated with barium enema (which he hated). Now the dilated loops of bowel on KUB which would be consistent with ileus although he did not seem to have been having typical symptoms until Sunday. No change in imaging. - Mostly tolerating diet - Bowel regimen increased but he declines doses b/c stool is loose - Home dose Linzess is 290 mg so corrected today - He also describes greasiness of stool - will try increasing the Creon - trying to minimize oxycodone, he likes toradol and should tolerate short term NSAIDs - GI fxn seems to be biggest barrier to d/c and has been longer term struggle Oral lesion 11/19/2022 Assessment & Plan (11/21/2022 3:17 PM CDT): - Patient endorsed pain with eating. On exam has lesions consistent with mucositis vs HSV (dna negative) - Magic mouthwash Severe malnutrition 10/31/2022 Assessment & Plan (11/21/2022 3:17 PM CDT): Supplements as per nutrition History of biliary stent insertion 10/09/2022 Hx of epididymitis 10/08/2022 Assessment & Plan (10/28/2022 11:33 AM CDT): - Pt has previous hx of epididymitis 2/2 ESBL Klebsiella . Completed course of Avycaz on 09/08/22. Follows with Urology as OP. Assessment & Plan (10/10/2022 5:52 PM CDT): - Pt has previous hx of epididymitis 2/2 ESBL Klebsiella . Completed course of Avycaz on 09/08/22 - f/u ultrasound is limited by scrotal edema; sent urine culture, gc/ct. Other headache syndrome 10/08/2022 Assessment & Plan (03/18/2023 1:30 AM CDT): Followed by neurology. -Continue recently started cymbalta Assessment & Plan (10/28/2022 11:37 AM CDT): - Pt c/o head ache which is dull and achy in nature and associated with neck pain without stiffness - Last admission (10/08-10/11) CTH was unremarkable for any acute intracranial process. Symptomatic relief noted with Esgic for intermittent headaches and Lidocaine patches for neck pain - Will restart Esgic and lidocaine patch. If symptoms worsens or no improvement will consider repeat CT-head. - Esgic Q12 Bid Prn - Lidocaine patch Assessment & Plan (10/09/2022 11:48 PM CDT): - Pt c/o head ache which is dull and achy in nature and associated with neck pain without stiffness which improved with measures mentioned in this section. - c/w Esgic for intermittent headaches, on Lidocaine patches for neck pain - CTH was unremarkable for any acute intracranial process - Given overall improvement, deferred plan for LP Deep vein thrombosis 10/08/2022 Assessment & Plan (07/21/2023 2:04 AM MANAGER OF CREATIVE SERVICES): Diagnosed in August 2022, now s/p course of Eliquis. Presented with trace b/l lower ext edema, b/l erythema and mild tenderness which per patient is increased from baseline. Had similar presentation last hospitalization and LE duplex 06/07 was negative - CTM and consider rescanning if persistent Assessment & Plan (06/09/2023 4:47 PM MANAGER OF CREATIVE SERVICES): Hx of DVT in August 2022, he was on Eliquis and he completed the treatment, now presenting with bl LE leg pain and chronic swelling, DVT study on admission negative. Chronic BL LE edema in the setting of CHF/lymphedema Assessment & Plan (10/28/2022 11:44 AM CDT): - Hx of LED from previous admission - LE Doppler was remarkable for nonocclusive deep venous thrombus involving the distal right superficial femoral vein. - RUE dopplers also showed superficial vein thrombus of the basilic vein. - Eliquis 5 mg Bid - Ctm Assessment & Plan (10/11/2022 4:35 PM CDT): Correction, DVT in is an error for coding. The patient is not . Present on admission. Has h/o DVT distal right superficial femoral vein, RUE superficial vein thrombus of basilic vein. - has been on eliquis 5mg bid - they note disappointment in poor resolution of DVT, but discussed minimum of 3 months and ongoing risk factors. Could consider switching to another doac in the future Rash 09/23/2022 Assessment & Plan (06/12/2023 3:50 PM MANAGER OF CREATIVE SERVICES): - contact dermatitis? Not concerned about drug eruption - emollients prn Assessment & Plan (09/27/2022 4:29 PM CDT): Noted initially by on 09/21, worsening today (09/24) w/ livedoid pattern, wo broad differential at this point including vasculitis vs drug side effect. He is on Gemcitabine which can cause a huge array of derm issues from vasculitis to annular plaques to melisa skin necrosis. - Dermatology consulted: recommending triamcinolone 0.1% cream BID + moisturizer such as Vaseline or Eucerin cream - Sarna and benadryl prn for symptomatic relief Assessment & Plan (09/24/2022 9:31 AM CDT): Noted initially by on 09/21, worsening today (09/24) w/ livedoid pattern, wo broad differential at this point including vasculitis vs drug side effect - Patient is on Gemcitabine which can cause a huge array of derm issues from vasculitis to annular plaques to melisa skin necrosis. - transfer to [facility] for derm eval Anemia 09/22/2022 Assessment & Plan (07/26/2023 12:35 PM MANAGER OF CREATIVE SERVICES): Acute on chronic. 7.4 on admission. 5 days prior was 10.9 - Possibly 2/2 chemo vs lower GI bleed? - Pt had a BM with streaks of blood on 07/21/23. - EGD on 07/20:healed gastric ulceration with previously placed endoscopic clip in situ and widely patent pylorus-sparing Whipple, characterized by healthy appearing duodenal mucosa - transfuse for Hgb <7 - Consulted GI - Colonoscopy (07/23) - small internal hemorrhoids. Random Biopsies negative. Assessment & Plan (06/12/2023 3:46 PM MANAGER OF CREATIVE SERVICES): HGb 7, plt 94, wbc 1.4, abs ne 0.8, in the setting of acute viral infection and recent chemotherapy on 06/04 -transfused 1 Unit of prbc 06/10 for Hgb of 10 Assessment & Plan (10/10/2022 5:42 PM CDT): - H/H- 9.6/30, likely 2/2 AoCD Assessment & Plan (09/25/2022 1:45 AM CDT): Likely due to chemotherapy. Patient denies bleeding, last Hgb 9.3 -continue to monitor, transfuse Hgb >7.0 Assessment & Plan (09/22/2022 11:03 AM CDT): Likely due to chemotherapy. Patient denies bleeding -continue to monitor Chronic constipation 09/22/2022 Assessment & Plan (07/26/2023 12:34 PM MANAGER OF CREATIVE SERVICES): Has Hx of ileus. On scheduled Linzess, Miralax and PRN Senna-Docusate at home. Patient states he's been having 4-5 soft stools daily - Increased Creon as above. Bowel regimen. Assessment & Plan (06/07/2023 11:26 PM MANAGER OF CREATIVE SERVICES): Continue home regimen of Linzess, Miralax and PRN Senna-Docusate -PRN suppository added as well Assessment & Plan (02/05/2023 7:06 PM CDT): Reporting loose bowels x weeks while on outpatient abx, now constipated with hard bowel movements. Secondary to low PO/fluid intake, opiate therapy. Previously has ileus but bowels moving presently. - schedule bowel regimen - Can resume home Linzess if diarrhea resolved Assessment & Plan (09/25/2022 1:42 AM CDT): Last BM was yesterday (09/24) with slight improvement to abdominal discomfort. He was diagnosed with C diff in August and completed course of dificid. He continued to have diarrhea until about 4 days ago when he developed constipation. He has history of paralytic ileus. He notes that he can go several days without BM at times. He takes linzess at home with relief. -added miralax to bowel regimen. -consider imaging if no BM or worsening abdominal pain from baseline. Assessment & Plan (09/24/2022 9:29 AM CDT): Last BM was yesterday (09/23) with slight improvement to abdominal discomfort. He was diagnosed with C diff in August and completed course of dificid. He continued to have diarrhea until about 4 days ago when he developed constipation. He has history of paralytic ilues. He notes that he can go several days without BM at times. He takes linzess at home with relief. -added miralax to bowel regimen. -consider imaging if no BM or worsening abdominal pain from baseline. Venous thrombosis 09/22/2022 Assessment & Plan (03/18/2023 1:29 AM CDT): DVT 08/2022. -Continue eliquis Assessment & Plan (02/13/2023 6:25 PM CDT): RLE + RUE DVT August 2022, treated medically. Off treatment for approx two weeks due to not being able to get medication refilled post-hospitalization. Low concern for clinically significant PE as on RA, no tachycardia, no chest pain. Had been on apixaban 5mg BID. - Continue eliquis Assessment & Plan (12/20/2022 5:29 PM CDT): - hold eliquis given symptoms of melena Assessment & Plan (11/18/2022 1:35 PM CDT): - Diagnosed on RLE DVT on 09/22, continue at least 3 months of anticoagulation with Eliquis Assessment & Plan (09/25/2022 1:44 AM CDT): Lower extremity venous doppler on 09/22 shows nonocclusive deep venous thrombus involving the distal right superficial femoral vein. -therapeutic lovenox started with plan to transition to po eliquis. Assessment & Plan (09/22/2022 4:17 PM CDT): Lower extremity venous doppler on 09/22 shows nonocclusive deep venous thrombus involving the distal right superficial femoral vein. -therapeutic lovenox started with plan to transition to po eliquis. Pancreatic cancer 08/30/2022 Overview (08/30/2022): Added automatically from request for surgery [id number] Assessment & Plan (10/15/2023 2:34 PM CDT): Hx of L axillary nodes on CT increased from prior study Should f/u with Dr. Chahal Assessment & Plan (10/13/2023 2:03 PM CDT): Hx of L axillary nodes on CT increased from prior study Should f/u with Dr. Chahal Assessment & Plan (07/26/2023 12:31 PM MANAGER OF CRE[employer]): - s/p whipple. Follows with Dr. Chahal in medical oncology and Dr. Aguilar in HBS. - Currently on Gemcitabine with last infusion on 07/16/23 - Medical oncology on board - Increased Creon to take 4 pills TID AC and 2 pills with snacks with improved PO tolerance Assessment & Plan (02/05/2023 7:04 PM CDT): Diagnosed Aug 2022 s/p EUS/ERCP with stent placement, exchanges, most recent 12/15/22. Began gem-abraxane August, unable to tolerate due to recurrent sepsis/bacteriemia and co-morbidities, now undergoing XRT to lesion. - XRT final treatment 02/05 - cont Creon - continue PRN oxycodone, schedule bowel regimen Assessment & Plan (12/19/2022 6:24 PM CDT): -med onc consulted - cont creon Assessment & Plan (11/20/2022 1:21 PM CDT): - Followed by Dr. Chahal. Resectable panc adenoca C2 gemcitabine/abraxane last received on 11/06/2022. Assessment & Plan (10/28/2022 11:56 AM CDT): - Pt was initially diagnosed in 08/2022 with a 2.7cm pancreatic head/uncinate process mass with abutment of the portal vein, but no arterial involvement. - On 08/20/22, CT AP (with contrast) shows pancreatic duct and intra and extrahepatic bile duct dilation to the area of soft tissue fullness within the pancreatic head/uncinate process (2.7cm). Mild stranding in the peripancreatic tail region likely acute pancreatitis. Small subcentimeter hyper attenuating nodules in the periduodenal region which probably represent small areas of heterotopic pancreas a small neuroendocrine tumors could have a similar appearance. These are not substantially changed since at least 01/15/2020. - On 08/22/22, EUS/ ERCP with stent placement, 2cm mass in the pancreatic head, FNB of mass shows adenocarcinoma. - s/p ERCP and stent placement in 09/21 for ductal dilation - s/p C1 gemcitabine/paclitaxel on 09/18/22. C2 planned for 11/06/22 - Med/Onc recs appreciated, plan to hold of next cycle of [place]/Abraxane till infectious etiology is ruled out Assessment & Plan (10/09/2022 11:45 PM CDT): - Pt was initially diagnosed in 08/2022 with a 2.7cm pancreatic head/uncinate process mass with abutment of the portal vein, but no arterial involvement. - On 08/20/22 CT AP (with contrast) shows pancreatic duct and intra and extrahepatic bile duct dilation to the area of soft tissue fullness within the pancreatic head/uncinate process (2.7cm). Mild stranding in the peripancreatic tail region likely acute pancreatitis. Small subcentimeter hyper attenuating nodules in the periduodenal region which probably represent small areas of heterotopic pancreas a small neuroendocrine tumors could have a similar appearance. These are not substantially changed since at least 01/15/2020. - On 08/22/22, EUS/ ERCP with stent placement, 2cm mass in the pancreatic head, FNB of mass shows adenocarcinoma. - s/p ERCP and stent placement in 09/21 for ductal dilation - s/p C1 gemcitabine/paclitaxel on 09/18/22 - Plan for C2 remains on hold due to recurrent fevers. - Med/Onc recs appreciated, plan to hold of next cycle of [place]/Abraxane till infectious etiology is ruled out Assessment & Plan (09/27/2022 4:30 PM CDT): Diagnosed 08/2022 with 2.7 pancreatic head/ ucinate process mass with abutment of the portal vein but no arterial involvement, s/p ERCP with bx showing adenocarcinoma. Patient follows with Dr. Chahal. He underwent Cycle 1 day 1 gemcitabine/abraxane on 09/18/22. He is due for next treatment on 09/25. - Med onc consulted and following - Brain and spine MRI as elsewhere Assessment & Plan (09/22/2022 11:36 AM CDT): Diagnosed 08/2022 with 2.7 pancreatic head/ ucinate process mass with abutment o f the purtal vein but no arterial involvement, s/p ERCP with bx showing adenocarcinoma. Patient follows with Dr. Chahal. He underwent Cycle 1 day 1 gemcitabine/abraxane on 09/18/22. He is due for next treatment on 09/25. Pancreatic adenocarcinoma 08/30/2022 Assessment & Plan (01/15/2025 11:15 AM CDT): -Oncologist is Dr. Chahal, currently on surveillance Assessment & Plan (01/14/2025 11:42 AM CDT): -Oncologist is Dr. Chahal, currently on surveillance Assessment & Plan (01/13/2025 12:04 PM CDT): -Oncologist is Dr. Chahal, currently on surveillance Assessment & Plan (01/13/2025 1:06 AM CDT): -Oncologist is Dr. Chahal, currently on surveillance Assessment & Plan (08/26/2024 4:00 PM MANAGER OF CREATIVE SERVICES): s/p whipple with PV/SMV resection (04/2023) and neoadjuvant chemo (completed 08/2023). Most recent scan showed no evidence of disease recurrence Currently on surveillance with CA 19-[address] CAP every 3 months Assessment & Plan (07/10/2024 10:48 PM MANAGER OF CREATIVE SERVICES): Pancreatic cancer s/p Whipple with PV/SMV resection on 04/11/2023 s/p neoadjuvant tx, On surveillance OP follow up. Assessment & Plan (06/08/2023 5:32 PM MANAGER OF CREATIVE SERVICES): Pancreatic adenocarcinoma sp Whipple, now on Gemcitabine (last infusion 06/04/2023), follows with Dr. Chahal -Medical oncology consult appreciated -no active treatment as inpatient tin the setting acute covid infection Assessment & Plan (03/18/2023 1:30 AM CDT): Dr. Chahal, Dx 08/2022 s/p NAD Gemcitabine/Abraxine C1D1 08/31/22 though due to many complications finished C3D8 12/11/22 and decision to do SBRT instead of surgery (completed 5Fx 02/05/23), now being evaluated for Whipple procedure. -Continue follow up with med onc and HBS. Mass of head of pancreas 08/30/2022 Urinary tract infection due to ESBL Klebsiella 1 Assessment & Plan (08/25/2022 12:23 PM MANAGER OF CREATIVE SERVICES): Recurrent UTI followed by ID with scrotal US 08/17 with acute epididymitis. Started on Avycaz (ceftazidime/avibactam) on 08/18 through RUE PICC placed by IR. Unlikely cause of LFT elevation given LFTs were elevated prior to starting it. -Continue Avycaz with a planned stop date 09/09 -ID following Class 2 severe obesity with serious comorbidity in adult 09/24/2021 Assessment & Plan (03/18/2023 1:24 AM CDT): BMI 37.42. Has been losing weight (intentionally) for Whipple Procedure -Continue weight loss. Hypogonadism in male 03/29/2020 Hearing loss 03/08/2020 Asymmetrical sensorineural hearing loss 01/19/20 20 Other osteoporosis without current pathological fracture 12/17/2019 Splenic mass 06/09/2019 Assessment & Plan (06/09/2019 12:54 PM MANAGER OF CREATIVE SERVICES): He is agreeable to rescheduling the splenic MRI to further define previously incidentally discovered lesion, to better characterize this and establish follow up as necessary. Order entered. I provided Mr. Greco with the phone # to radiology to call if he does not hear back from the office by next week. Chronic diastolic (congestive) heart failure Assessment & Plan (07/14/2024 12:35 PM MANAGER OF CREATIVE SERVICES): HFpEF Euvolemic, normotensive On hold diuretics for now given pt NPO on IVF for ileus, will restart once able to take in po Assessment & Plan (06/11/2023 10:01 PM MANAGER OF CREATIVE SERVICES): ECHO 11/21 EF 69%, grade I diastolic function, SPAP 23, at home on aldactone and torsemide, on PE euvolemic - restarted aldactone , restart torsemide if BP good possible before dc -fw input/output Assessment & Plan (12/19/2022 6:25 PM CDT): - cont torsemide and spironolactone Assessment & Plan (11/22/2022 4:35 PM CDT): - Repeat TTE: LV mildly dilated with EF of 69%, mild to moderate AR, normal IVC. - Replacing home torsemide with bumex as above - LE edema slightly improved. BNP normal. Continue current for now. - Continue home spironolactone Assessment & Plan (09/25/2022 1:38 AM CDT): Presents this admission with dyspnea at rest and with exertion as well as orthopnea (stable) and ~7 lbs weight gain in approx 1 week, although reports lower extremity at baseline. NT proBNP is <200, he is morbidly obese reducing the NPV of the assay. TTE on 09/22 with EF 65%, impaired relaxation consistent with known diastolic heart failure. -continue home torsemide and spironolactone -telemetry ordered to monitor for arrhythmia given hx of VT arrest necessitating ICD -daily RFP and Mag as his diuretic regimen puts him at elevated risk of electrolyte derangements and renal dysfunction -daily weights -strict I/O -low sodium diet and fluid restrict 2L Assessment & Plan (09/22/2022 4:19 PM CDT): -he notes SOB at rest and with exertion as well as orthopnea (stable) and ~7 lbs weight gain in approx 1 week, although reports lower extremity at baseline. -while his proBNP is <200, he is morbidly obese reducing the NPV of the assay -ECHO on 09/22 with EF 65%, impaired relaxation consistent with known diastolic heart failure. -continue home torsemide and spironolactone pending ECHO results. -telemetry ordered to monitor for arrhythmia given hx of VT arrest necessitating ICD -daily RFP and Mag as his diuretic regimen puts him at elevated risk of electrolyte derangements and renal dysfunction -daily weights -strict I/O -low sodium diet and fluid restrict 2L -patient not on GDMT at this time, defer to OP cardiology Assessment & Plan (09/22/2022 3:20 AM CDT): -he notes SOB at rest and with exertion as well as orthopnea (stable) and ~7 lbs weight gain in approx 1 week -while his proBNP is <200, he is morbidly obese reducing the NPV of the assay -resume torsemide and spironolactone in AM -telemetry ordered to monitor for arrhythmia given hx of VT arrest necessitating ICD -repeat BMP with Mag, phos levels in AM as his diuretic regimen puts him at elevated risk of electrolyte derangements and renal dysfunction -daily weights -low sodium diet Assessment & Plan (08/24/2022 1:10 PM MANAGER OF CREATIVE SERVICES): Stable, continued torsemide, spironolactone Assessment & Plan (09/24/2021 12:42 AM CDT): Patient is feeling better. states legs have decreased by half. Continue with IV lasix. Continue to monitor Cr and lytes as we diurese. Holding torsemide. Continue aldactone with hold parameters. Assessment & Plan (08/18/2018 1:16 AM MANAGER OF CREATIVE SERVICES): Patient presented with increased shortness of breath and dyspnea on exertion, orthopnea. Increased swelling bilateral lower extremities. Somewhat distended abdomen but no stigmata of ascites. BNP was normal, however clinically patient in Congestive heart failure exacerbation. Will start on IV diuresis with Lasix Strict I&Os Monitor kidney function with daily BMP Replete electrolytes as needed per pharmacy replacement protocol VICK (obstructive sleep apnea) 08/18/2018 Assessment & Plan (01/15/2025 11:15 AM CDT): -Continue CPAP, has home machine Assessment & Plan (01/14/2025 11:42 AM CDT): -Continue CPAP, has home machine Assessment & Plan (01/13/2025 12:04 PM CDT): -Continue CPAP, has home machine Assessment & Plan (01/13/2025 1:06 AM CDT): -Continue CPAP, has home machine Assessment & Plan (12/10/2024 7:36 AM CDT): - Continue NPPV Assessment & Plan (12/09/2024 2:43 PM CDT): - Continue NPPV Assessment & Plan (08/26/2024 4:02 PM MANAGER OF CREATIVE SERVICES): continue nightly CPAP Assessment & Plan (07/21/2023 6:17 AM MANAGER OF CREATIVE SERVICES): Desaturations noted in the ED during sleep per on monitor while on RA (not recorded) - continue nightly BiPAP Assessment & Plan (06/07/2023 11:32 PM MANAGER OF CREATIVE SERVICES): Continue nightly BiPAP Assessment & Plan (03/18/2023 1:30 AM CDT): Continue nocturnal BiPAP Assessment & Plan (02/05/2023 6:58 PM CDT): Secondary to diaphragmatic paralysis. - Cont CPAP while sleeping. Assessment & Plan (12/19/2022 6:25 PM CDT): -cont nocturnal bipap - pt has home machine Assessment & Plan (10/28/2022 11:27 AM CDT): - Continue home CPAP Assessment & Plan (10/08/2022 8:40 PM CDT): - On home CPAP Assessment & Plan (09/30/2022 12:21 PM CDT): -continue home CPAP at night - to bring in new face mask that may fit better to improve adherence Assessment & Plan (09/22/2022 8:24 AM CDT): -resume home CPAP at [facility] Assessment & Plan (09/22/2022 3:17 AM CDT): -resume home CPAP at [facility] Assessment & Plan (08/24/2022 1:08 PM MANAGER OF CREATIVE SERVICES): - home CPAP machine use Assessment & Plan (09/24/2021 12:39 AM CDT): Patient has home NPPV which has been reordered. Assessment & Plan (08/18/2018 1:17 AM MANAGER OF CREATIVE SERVICES): Patient with a history of of bilateral diaphragmatic paralysis with central and obstructive sleep apnea. Restart CPAP Shortness of breath at rest 08/18/2018 Assessment & Plan (08/18/2018 1:27 AM MANAGER OF CREATIVE SERVICES): Patient with complex past medical history with [...] cardiac function. Consider Cardiology consult if needed. ICD (implantable cardioverter-defibrillator) in place 07/26/2018 Assessment & Plan (08/26/2024 4:05 PM MANAGER OF CREATIVE SERVICES): H/o vtach s/p ICD 2013 EP consulted for MRCP earlier in admission. Patient's device is conditioned for MRI. Risk stratification: standard Assessment & Plan (07/10/2024 10:38 PM MANAGER OF CREATIVE SERVICES): History of ventricular tachycardia ICD in place Assessment & Plan (07/21/2023 2:11 PM MANAGER OF CREATIVE SERVICES): Follows with Dr. Nelson in EP for history of VT s/p ICD. He denies recent shocks - will order device interrogation - last device check 06/05 --> Normal parameters identified on leads with lead impedance out of range. Less than 6 months of battery longevity noted (3 % remaining). No new arrhythmic events - Patient has an appt with EP in Aug Assessment & Plan (06/11/2023 9:59 PM MANAGER OF CREATIVE SERVICES): Follows with Dr. Nelson in EP for history of VT s/p ICD. Denies any recent shocks, as per not there was unscheduled alarm this month due to RV lead impedance. Has outpatient appointment in August Outpatient follow up with EP Assessment & Plan (03/18/2023 1:23 AM CDT): Monitor. MRI conditional. If needs MRI, will need to go to [facility]. Assessment & Plan (02/05/2023 6:58 PM CDT): - ICD in place - telemetry Assessment & Plan (09/26/2022 6:54 PM CDT): S/p VT in 2013, with ICD in place -Telemetry -EP consulted due to need for MRI with MRI-conditional ICD in place Assessment & Plan (09/22/2022 10:45 AM CDT): -ICD placed in 2013 due to ventricular tachycardia, likely idiopathic, per cardiology notes. -telemetry monitoring ordered Assessment & Plan (09/22/2022 3:17 AM CDT): -telemetry monitoring ordered Assessment & Plan (08/18/2018 1:17 AM MANAGER OF CREATIVE SERVICES): Last device interrogation was in July of 2018. No events reported. 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 -Continue noctrunal BiPAP. Patient has his own machine. Assessment & Plan (02/05/2023 6:58 PM CDT): Chronic, poor respiratory status at baseline secondary to partial paralysis. - Cont home inhalers per formulary, nocturnal CPAP. 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 Follows with Dr. Russ ([facility]) as OP. On Symbicort at home. 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 Russ - c/w Breo-Ellipta Assessment & Plan (08/18/2018 1:17 AM MANAGER OF CREATIVE SERVICES): Continue with gabapentin Chronic heart failure with preserved ejection fr action 09/18/2017 Assessment & Plan (01/15/2025 11:15 AM CDT): Stable, continue torsemide Assessment & Plan (01/14/2025 11:42 AM CDT): Stable, continue torsemide ( hold if oral intake is poor) Assessment & Plan (01/13/2025 12:04 PM CDT): Stable, continue torsemide ( hold if oral intake is poor) Assessment & Plan (01/13/2025 1:06 AM CDT): Stable, continue torsemide Assessment & Plan (12/10/2024 7:36 AM CDT): On torsemide and spironolactone at home however spironolactone was held during last discharge - Continue torsemide Assessment & Plan (12/09/2024 2:43 PM CDT): On torsemide and spironolactone at home however spironolactone was held during last discharge - Continue torsemide Assessment & Plan (11/24/2024 9:51 AM CDT): -HOLD spironolactone, restart lower dose torsemide on 11/23. Assessment & Plan (11/23/2024 9:48 AM CDT): -HOLD spironolactone, restart lower dose torsemide on 11/23. -Doesn't need tele. Assessment & Plan (11/22/2024 12:07 PM CDT): -HOLD torsemide, spironolactone since he looks euvolemic -Doesn't need tele. -low sodium diet when taking PO Assessment & Plan (11/21/2024 11:50 AM CDT): -HOLD torsemide, spironolactone since he looks euvolemic -Doesn't need tele. -low sodium diet when taking PO Assessment & Plan (11/20/2024 11:11 AM CDT): -HOLD torsemide, spironolactone since he looks euvolemic and is NPO. -telemetry monitoring -low sodium diet when taking PO Assessment & Plan (11/20/2024 1:34 AM CDT): -resume torsemide, spironolactone in AM -telemetry monitoring -low sodium diet when taking PO Assessment & Plan (08/26/2024 4:06 PM MANAGER OF CREATIVE SERVICES): Volume down on admission due to diarrhea, now appear slightly volume up, likely I/s/o transfusions and held diuretics Continue to hold home torsemide and spironolactone for now, consider gently resuming prior to discharge Assessment & Plan (07/26/2023 12:34 PM MANAGER OF CREATIVE SERVICES): BLE edema with erythema noted on exam. - held home aldactone and torsemide due to poor PO intake and soft blood pressures post anaesthesia for EGD. - Continue Spironolactone. Restart Torsemide. Assessment & Plan (03/18/2023 2:17 PM CDT): HFpEF (TTE 11/20/22, LVEF 69%, G1DD, PASP 23+RA). Followed by cardiology. Appears evolemic. -Hold torsemide tonight and give some gentle hydration to help with proctitis -Restarted torsemide -ASA, STatin Assessment & Plan (02/05/2023 7:01 PM CDT): TTE October 2022, LVEF 69%. Mild-moderate AR, no . Grade I diastolic function. Estimated PA systolic pressure 23+RA(5) mmHg. - Continue home aldactone 25mg, torsemide 80mg BID Assessment & Plan (10/28/2022 11:42 AM CDT): - TTE from 08/2022 was remarkable for normal LV size and wall thickness with normal LV systolic function, LVEF 65%, normal LV strain, and impaired LV relaxation. Mild RVE with normal RV function. - EKG on admission remarkable for likely RBBB. No CP or SOB noted on admission. - Continue Aspirin 81 mg, Torsemide 40 mg Bid & Spironolactone 25 mg - Encouraged him to follow low salt diet. Assessment & Plan (10/11/2022 4:34 PM CDT): With 7 Liters off, he may have had a component of an acute exacerbation. Reinforced importance of fluid restriction and low salt diet. - TTE from 08/2022 was remarkable for normal LV size and wall thickness with normal LV systolic function, LVEF 65%, normal LV strain, and impaired LV relaxation. Mild RVE with normal RV function. - EKG on admission was remarkable for likely RBBB. No CP or SOB noted on admission - Currently not on GDMT ,remains on Aspirin 81 mg otherwise. - Torsemide & Spironolactone at same doses Renal osteodystrophy 11/06/2016 Intractable pain 08/14/2016 Assessment & Plan (09/24/2021 12:40 AM CDT): Patient on mobic at home. As we are diuresing, will hold for now to decrease nephrotoxin exposure. Will order topical voltaren for his left leg and lidoderm patch for his back. Type 2 diabetes mellitus wit h microalbuminuria, with long-term current use of insulin 08/14/2016 Overview (04/28/2023): The patient's type of diabetes is T2DM. The patient was diagnosed in/at 2.5 years ago. The mechanism by which the patient was diagnosed with diabetes: labs. The patient has a history of DKA: No. The patient has a history of pancreatitis: Yes. The patient has a family history of diabetes: Yes (mother and brother). The details of the patient's hospital admission include: pancreatic adenocarcinoma who is now s/p pancreatoduodenectomy. The provider managing the patient's diabetes is Dr Margaret Balderas. Complications of diabetes include Microvascular and Macrovascular The patient has neuropathy: yes Macrovascular complications include: HFpEF and CAD Other complications include: VICK The patient's most recent HbA1c is 8.3% on 04/12/23. Reliability of HbA1c no (anemia). Home DM regimen: tresiba 45 units q AM, novolog 16 units TID AC, correctional scale 2 units every 50 >150 mg/dl. Continuous glucose monitor: Stephen 2. Frequency of glucose monitoring 3x daily. Average glucose ranges at home 185-240. Average glucose ranges in hospital 170-218. Hypoglycemic symptoms: Shakiness, tremors. Hypoglycemic episodes: yes At what BG value does patient feel low unable to state what number he felt low. Hypoglycemia awareness: yes. How does the patient treat hypoglycemia:orange juice or glucagon. Hospitalization for hypoglycemia: no. Hx of diabetes education: yes. Assessment & Plan (01/15/2025 11:15 AM CDT): -Home regimen is Tresiba 10 units daily + SSI -Insulin sensitive SSI while inpatient and monitor glucose. Resume home regimen upon discharge. Assessment & Plan (01/14/2025 11:42 AM CDT): -Home regimen is Tresiba 10 units daily + SSI -Insulin sensitive SSI while inpatient and monitor glucose Assessment & Plan (01/13/2025 12:04 PM CDT): -Home regimen is Tresiba 10 units daily + SSI -Insulin sensitive SSI while inpatient and monitor glucose Assessment & Plan (01/13/2025 1:06 AM CDT): -Home regimen is Tresiba 10 units daily + SSI -Insulin sensitive SSI while inpatient and monitor glucose Assessment & Plan (12/10/2024 7:36 AM CDT): SSI and diabetic diet Assessment & Plan (12/09/2024 2:43 PM CDT): SSI and diabetic diet Assessment & Plan (11/24/2024 9:51 AM CDT): Blood sugars within normal limits on sliding scale alone. Plan to restart lower dose of Tresiba tonight along with sliding scale at discharge. If his blood sugars are persistently elevated at home, he can contact his PCP/venipuncturist for further insulin adjustments. Assessment & Plan (11/23/2024 9:48 AM CDT): -POC glucose q4 -SSI -once able to take PO, can resume diabetic diet and basal/bolus insulin regimen Assessment & Plan (11/22/2024 12:07 PM CDT): -POC glucose q4 -SSI -once able to take PO, can resume diabetic diet and basal/bolus insulin regimen Assessment & Plan (11/21/2024 11:50 AM CDT): -POC glucose q4 -SSI -once able to take PO, can resume diabetic diet and basal/bolus insulin regimen Assessment & Plan (11/20/2024 11:11 AM CDT): -POC glucose q4 while NPO -SSI -once able to take PO, can resume diabetic diet and basal/bolus insulin regimen Assessment & Plan (11/20/2024 1:37 AM CDT): -POC glucose q4 while NPO -SSI -once able to take PO, can resume diabetic diet and basal/bolus insulin regimen Assessment & Plan (08/26/2024 4:05 PM MANAGER OF CREATIVE SERVICES): Last A1c 8.4. Home regimen: tresiba 45 units, novolog 12 units w/ breakfast and dinner, 8 units with lunch and sliding scale 1:50 > 150 Continue lantus 5 units qam + SSI Assessment & Plan (07/17/2024 2:29 PM MANAGER OF CREATIVE SERVICES): - On tresiba 24U Qam and Lispro 8U TID AC, SSI at home - A1c 8.4 this admission - While inpatient: Lantus QAM, SSI - Monitor glucose , adjust doses as needed. Assessment & Plan (10/15/2023 2:33 PM CDT): Cont lantus 24 units Cont lispro 8 units tidac Cont hdssi Assessment & Plan (10/14/2023 4:59 PM CDT): Decrease lantus to 24 units Decrease lispro to 8 units tidac Cont hdssi Assessment & Plan (07/26/2023 12:33 PM MANAGER OF CREATIVE SERVICES): Insulin dependant. Home regimen: Tresiba 42 units qam, Meal-time insulin 15u tid, SSI. Has had poor oral intake over last 2-3 weeks. He mentions his Stephen 2 sensor has been recording low sugars in 40s-50s overnight for 1 week - SSI inpatient - QID accuchecks Assessment & Plan (06/08/2023 5:39 PM MANAGER OF CREATIVE SERVICES): Hgb1c 8.4% in 04/23, follows with endo outpatient, home regimen Tresiba 20Units, metformin and insulin SS -pt was hypoglycemia on admission, which now resolved Cw with 15 Units Glargine nightly and insulin SS -monitor glc Assessment & Plan (03/18/2023 1:34 AM CDT): Takes 40U Tresiba and 16U + SSI of Humalog TIDAC and Metformin BID. -Hold Metformin -Dose reduce basal bolus Assessment & Plan (02/06/2023 1:39 PM CDT): - Home regimen: lantus 38-50 units qHS, lispro 13 units TIDAC, metformin 500mg BID, increased from baseline due to steroid use recently - Here: lantus 18 units, lispro 5 units, HDSSI Assessment & Plan (12/19/2022 6:25 PM CDT): -inpatient regimen: lantus 30U qAM, SSI Assessment & Plan (11/24/2022 12:41 PM CDT): Discussed home regimen today - Correction to prior notes: - Non chemo days: Tresiba recently increased from 38 to 40 units daily + Novolog recently increased from 13 to 15 units TID - Chemo days + the 2 following days: Tresiba 50 units daily + Novolog 18 units TID - He also take metformin at home - Currently on dose reduced basal/bolus and SSI while inpatient - BGs 80s yesterday evening - reduce insulin slightly today Assessment & Plan (10/28/2022 11:31 AM CDT): - Takes Tresiba 38U nightly and 13U novolog at home. - Started on 12U Lantus and sliding scale insulin. Increase as needed Assessment & Plan (10/11/2022 4:35 PM CDT): - Pt was previous DC's on Glargine/ Lispro on 10/02. Home doses are 38 tresiba and 13 novolog with meals. Assessment & Plan (09/26/2022 6:57 PM CDT): Follows with Dr. Mera. Last OV 06/05/22, poorly controlled at baseline, A1c 7.9% -resume basal-bolus insulin, reduced dose regimen while inpatient -hold oral hypoglycemics -diabetic diet Assessment & Plan (09/23/2022 2:05 PM CDT): -patient follows with Dr. Mera. Last OV 06/05/22 -poorly controlled at baseline, A1c 7.9% -resume basal-bolus insulin, reduced dose regimen while inpatient -hold oral hypoglycemics -diabetic diet Assessment & Plan (09/22/2022 3:24 AM CDT): -poorly controlled at baseline, A1c 7.9% -resume basal-bolus insulin, reduced dose regimen while inpatient -hold oral hypoglycemics -diabetic diet -QID accu-checks to monitor for hypo/hyperglycemia -SSI Assessment & Plan (08/24/2022 1:07 PM MANAGER OF CREATIVE SERVICES): -Home regimen metformin + Tresiba 35 units qAM and novolog 11 units with meals plus SSI -Continue basal bolus regimen, dose reduced while inpatient -Accuchecks Assessment & Plan (09/24/2021 12:38 AM CDT): Patient on PO hypoglycemics. Monitor on SSI. Assessment & Plan (06/09/2019 12:53 PM MANAGER OF CREATIVE SERVICES): Diet controlled. A1C at goal. On ARB. Follow up with ophtho as previously scheduled. Recommend statin for primary prevention. He will follow up with his PCP for this Adrenal nodule (CMS/HCC) 09/06/2015 Assessment & Plan (06/09/2019 12:49 PM MANAGER OF CREATIVE SERVICES): Nodule has not grown on interim imaging. Needs low dose dexamethasone suppression test annually x 5 years since initial evaluation given propensity of some adrenal nodules to become cortisol secreting overtime. Thyroid nodule 09/06/2015 Assessment & Plan (06/09/2019 12:48 PM MANAGER OF CREATIVE SERVICES): S/p FNA with benign cytology. Will repeat US in the spring to monitor biopsied thyroid nodule for growth. Multinodular goiter 05/10/2015 Hernia of abdominal wall 02/18/2015 Assessment & Plan (06/09/2019 12:54 PM MANAGER OF CREATIVE SERVICES): He will follow up with Dr. 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 Neurology has recommended PETCT to eval for malignant PN. -Continue follow up with neurology and PETCT Assessment & Plan (02/13/2023 6:24 PM CDT): The patient has a hx of NF w/ lesions across the body as well as L sided temporoparietal subcutaneous soft tissue lesion that varies in size at baseline recently increased in size accompanied by headaches responsive to caffeine and tylenol. Assessment: - CT Head w/ increased size of subq soft tissue lesion - bMRI w/ increased size of neurofibroma - NF lesions noted across body. Plan: - Continue symptomatic management of headaches - Medical Oncology Consult - referral to ENT neurofibromatosis specialist in outpatient Coronary artery disease 02/23/2012 Assessment & Plan (08/26/2024 4:06 PM MANAGER OF CREATIVE SERVICES): continue home rosuvastatin consider resuming ASA Assessment & Plan (07/10/2024 10:44 PM MANAGER OF CREATIVE SERVICES): Cath in 10/2023 nonobstructive coronary artery disease Cont ASA and statin Assessment & Plan (03/18/2023 1:33 AM CDT): Followed by cardiology. Nonobstructing CAD (moderate LAD disease 2013 IFR neg). -Continue medical management with ASA and Statin Assessment & Plan (02/05/2023 7:01 PM CDT): - Continue home aspirin, statin. Assessment & Plan (12/15/2022 5:45 AM CDT): - cont asa. Has not been taking statin 2/2 to elevated liver enzymes. Edema 01/24/2012 Heart murmur 01/24/2012 Hyperlipidemia 01/24/2012 Assessment & Plan (01/15/2025 11:15 AM CDT): -Continue statin Assessment & Plan (01/14/2025 11:42 AM CDT): -Continue statin Assessment & Plan (01/13/2025 12:04 PM CDT): -Continue statin Assessment & Plan (01/13/2025 1:06 AM CDT): -Continue statin Assessment & Plan (03/18/2023 1:31 AM CDT): Continue statin. Assessment & Plan (02/05/2023 7:01 PM CDT): No significant liver injury presently. - Continue home Crestor 5mg. Aortic valve disorder 01/19/2012 Restless leg syndrome 02/28/2011 Assessment & Plan (03/18/2023 1:24 AM CDT): Continue pramipexole Assessment & Plan (02/05/2023 6:59 PM CDT): - Cont home pramipexole Assessment & Plan (10/28/2022 11:27 AM CDT): - Continue Ropinirole 0.125 mg Assessment & Plan (10/08/2022 8:41 PM CDT): - c/w Ropinirole 0.125 mg Assessment & Plan (09/27/2022 4:30 PM CDT): -Continue home pramipexole Assessment & Plan (09/24/2021 12:38 AM CDT): Continue mirapex Gastric ulcer 02/28/2011 Mild intermittent asthma Assessment & Plan (07/21/2023 2:06 AM MANAGER OF CREATIVE SERVICES): Follows with Dr. Nelson - Continue home Breo and PRN albuterol inhaler Assessment & Plan (06/07/2023 11:31 PM MANAGER OF CREATIVE SERVICES): Follows with Dr. Nelson in pulmonary -Continue home Breo and PRN albuterol inhaler Assessment & Plan (09/25/2022 1:41 AM CDT): -Continue home inhalers. Assessment & Plan (09/22/2022 11:00 AM CDT): Continue home inhalers. Assessment & Plan (08/21/2022 4:13 AM MANAGER OF CREATIVE SERVICES): -Symbicort replaced with formulary Breo Ellipta while inpatient -Continue prn albuterol Assessment & Plan (09/24/2021 12:42 AM CDT): Continue breathing treatment. Current Treatment and Therapy Plans Alteplase (CATHFLO ACTIVASE) - orders for occluded catheters* Plan Start Date: 12/17/2023 Plan Provider:Kenyon Crocker MD PhD Linked Problems Pancreatic adenocarcinoma (H CC) Treatment Medications No medications scheduled. Other Current Plans Potassium Replacement IV* Plan Start Date:07/09/2023 Plan Provider:Ben Chahal MD PhD Linked Problems Hypokalemia Treatment Medications No medications scheduled. Past Treatment and Therapy Plans Oncology Chemotherapy Treatment Plan Name Start Date Discontinue Date Treatment Medications Discontinue Reason Plan Provider Cycles Gemcitabine 28 Day Cycles - Pancreas 05/21/20 23 12/06/2023 gemcitabine (GEMZAR)gemcit abine (GEMZAR) IVPB in 250 mL (using 38 mg/mL gemCITabine) (J9201)gemcita bine IVPB in 250 mL (using 100 mg/ml gemcitabine) (J9196) Therapy Complete Ben Chahal MD PhD 3 of 3 cycles started Gemcitabine / Albumin-bound PACLItaxel (Abraxane) 28 Day Cycles - Pancreas 3 03/20/2023 albumin-bound PACLItaxel (ABRAXANE)albu min-bound PACLItaxel (ABRAXANE) 5 mg/mLatrium health stanlyitabi ne (GEMZAR)gemcit abine IVPB in 250 mL (using 100 mg/ml gemcitabine) ([id number]) Change in Level of Care Ben Chahal MD PhD 3 of 6 cycles started Radiation Treatments * Course C1 [id number]_23 01/29/2023 - 02/05/2023 Treatment Period Energy Fraction Dose Fractions Total Dose Plans Planned [id number] 01/30/2023 - 02/05/2023 700 5 / 3,500 SBRT PANCREAS 01/29/2023 - 01/29/2023 700 1 / 3,500 Reference Points Delivered [id number] 01/30/2023 - 02/05/2023 3,500 PTV 01/29/2023 - 01/29/2023 2 Lifetime Dose Tracking * Chemical Lifetime Dose Automatic Entry Manual Entr y Fluoro Time 43.8 minutes 43.8 minutes 0 minutes Air kerma at the reference point (Ka,r) 2,185.8 mGy 1 ,193.9 mGy 991.9 mGy DLP 58,771 mGycm 58,771 mGycm 0 mGycm Resolved Problems Problem Noted Date Diagnosed Date Resolved Date Abdominal pain, generalized 01/12/2025 01/13/2025 Ventilator associated pneumonia 08/22/2024 08/22/2024 Acute hypoxemic respiratory failure 08/22/2024 08/23/2024 Assessment & Plan (08/22/2024 8:41 PM MANAGER OF CREATIVE SERVICES): Fevers + O2 requirement Aug 14, subsequently found to be positive for Influenza A and Coronavirus ([id number]). 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 S/p tamiflu, Linezolid (08/15-08/18), Cefepime (08/15- 08/17), Ciprofloxacin (08/08). Currently on RA. - supportive care Dysuria 07/25/2024 08/24/2024 Assessment & Plan (08/22/2024 10:12 PM MANAGER OF CREATIVE SERVICES): Now resolved. UA on admission with leuk esterase no WBCs, but pt reporting dysuria for [address] showed non-obstructing kidney stones, largest on left kidney 7 mm - UCx ordered and started pt on ceftriaxone, received 2 days tx. UCx negative so CTX d/c'd 07/27 -Repeat UA ordered for 08/01- no signs of UTI #Urinary incontinence -Has bladder stimulator-- calibrated by patients son -Urology consulted and signed off Left axillary pain 07/25/2024 Assessment & Plan (07/29/2024 3:21 PM MANAGER OF CREATIVE SERVICES): Pt reports new burning pain around left axilla that wraps to the front of his chest. Notes he had this before and area began draining pus and had a foul odor - no erythema or rash noted -Us L axilla- no signs of any fluid collection or lymphadenopathy - already on gabapentin Gastrointestinal ulcer 07/24/202408/22 Assessment & Plan (08/11/2024 8:44 PM MANAGER OF CREATIVE SERVICES): - Recent admission 07/10-07/20 for abd pain. EGD discovered severe 2-3 cm ulceration at duodenojejunostomy, scattered ulcerations and erosions. DDx included NSAID- induced vs vascular issue at anastomosis. Patient was discharged home with BID PPI and QID carafate - will continue PPI and carafate- changed protonix to IV per GI recs, as unable to open the protonix capsule here - Likely the source of patient's ongoing recurrent pain KRISTA (acute kidney injury) 07/24/2024 Assessment & Plan (08/02/2024 11:26 AM MANAGER OF CREATIVE SERVICES): Resolved - Baseline Cr 0.5. Cr on admission was 1.01 - Likely pre-renal due to diarrhea - improved with IVF Dehydration 07/24/2024 08/26/2024 Assessment & Plan (07/26/2024 12:35 PM MANAGER OF CREATIVE SERVICES): - due to diarrhea - s/p 1L IVF bolus in [facility] and maintenance IVF Diarrhea 07/19/2024 08/24/2024 Assessment & Plan (08/09/2024 2:16 PM MANAGER OF CREATIVE SERVICES): - P/w 1-day history of 7-8 episodes of non-bloody diarrhea. RPP negative. C diff and stool culture negative. Diarrhea resolved during hospital stay - C/f possible C diff given recent exposure to abx, including cipro, during last hospitalization. - C diff and stool culture negative - changed imodium and lomotil to prn now that diarrhea has largely resolved Assessment & Plan (07/20/2024 11:33 AM MANAGER OF CREATIVE SERVICES): - Developed after resolution of ileus. - C diff negative - Increased Creon back to home dose - Imodium prn - Hold Linzess until diarrhea resolved Abdominal pain 11/09/2023 08/25/2024 Assessment & Plan (08/11/2024 8:39 PM MANAGER OF CREATIVE SERVICES): Acute on chronic abdominal pain. Likely multifactorial, including duodenal ulcer, multiple intra-abdominal procedures in the past, possible adhesions, constipation. Initially pain went under control with pain medications. Increased on 08/09 along with constipation and n/v. Recheck CT showed fat-containing hernia and no significant changes. Patient then had another episode of epigastric pain on 08/11 along with hematemesis. See the rest of details under discussion of hematemesis Assessment & Plan (07/14/2024 12:31 PM MANAGER OF CREATIVE SERVICES): Hx of pancreatic cancer s/p whipple presented initially to the [facility] with abd pain , nausea and left sided chest pain. Chest pain improved with no remarkable EKG or trops CTA with no PE , but showed Extensive wall thickening and inflammatory changes involving the jejunostomy immediately after the gastrojejunostomy. Findings may represent severe marginal ulcer Surgery recs no intervention , GI biliary following EGD 07/11: severe 2-3 cm ulceration at duodenojejunostomy, scattered ulcerations and erosions; ddx NSAID or vascular issue at anastomosis -hold heparin and order SCD. -Omeprazole 40 mg orally BID (open capsule administration) - Carafate 1g QID after meals and at bedtime - STOP ALL NSAIDs except aspirin 81 for clear cardiac or neuro indications - repeat EGD in 12 weeks -dilaudid IV and oxycodone prn for pain. Management of ileus as elsewhere -hold NSAIDs Assessment & Plan (07/10/2024 9:32 PM MANAGER OF CREATIVE SERVICES): Hx of pancreatic cancer s/p whipple presented initially to the [facility] with abd pain , nausea and left sided chest pain. Chest pain improved with no remarkable EKG or trops CTA with no PE , but showed Extensive wall thickening and inflammatory changes involving the jejunostomy immediately after the gastrojejunostomy. Findings may represent severe marginal ulcer Surgery recs no intervention , GI biliary on board for scope tomorrow -NPO -hold heparin and order SCD. - Chest pain 09/25/2023 08/24/2024 Assessment & Plan (08/11/2024 8:40 PM MANAGER OF CREATIVE SERVICES): Complained chest pain at left chest while resting in chair on 08/10, without any triggers. Reports that he has had a similar pain before. He also reports nausea. Exam showed left chest tender to palpate. Vitals checked, HR 60, SpO2 95%, SBP 120s. Given tenderness to palpate on chest and stable vital signs, the likelihood of cardiac chest pain is low. -EKG showed no significant change from prior. CXR wet read showed no acute abnormalities. Troponin negative -Continue to monitor V-tach 08/08/2023 08/01/2024 Assessment & Plan (08/01/2024 2:54 PM MANAGER OF CREATIVE SERVICES): -has ICD in place Assessment & Plan (10/15/2023 2:32 PM CDT): Pacer site looks cdi without erythema, mild swelling noted Cmu rev= sinus Rpt bmp/mg in am Assessment & Plan (10/14/2023 4:59 PM CDT): Pacer site looks cdi without erythema, mild swelling noted Cmu rev= sinus Supp kcl 40 meq PO Rpt bmp/mg in am Acute respiratory failure with hypoxia 11/18/2022 03/07/2023 Assessment & Plan (11/24/2022 12:40 PM CDT): Presenting with dyspnea, dry cough, CRISTELA, and temperature of 103 at home prior to admission. On 2L on admission. Chest CT mostly unrevealing, negative for PE, but ?bibasilar atelectasis vs consolidation on my read. Of note, patient has had multiple recent admissions for similar symptoms without clearly identified etiology. He was found to have a positive histo ab 1:16 though antigen was negative. Differential for the edema and SOB includes related to chemotherapy with gemcitabine/abraxane (both appear to have edema as a side effect), aspiration pneumonitis (apparent N/V requiring zofran in ED), less likely possible histoplasmosis. - Pertinent workup includes KUB showing dilated loops of small bowel and colon consistent with ileus. Most likely clinical scenario is that he is aspirating due to the ileus, which explains his low grade fevers, cough and SOB. Given he improved to room air 11/19/22 and with good bowel function, held off NPO/NGT. Hold opioids (and schedule tylenol/lidocaine patches for pain control). Aspiration precautions. - Additionally, replace home torsemide 80 BID with bumex 2 IV BID. Repeat TTE showed LVEF 69%, Grade 1 DD. - Recent repeat dopplers in early 10/2022 negative for DVT, but will continue 3 month course of eliquis for DVT found in 08/2022 - given asym edema yesterday, will recheck. - H/o B phrenic nerve paralysis but recovered, followed by Dr. Nelson - Repeat Histo Ab still pending - Continue home inhalers - Respiratory symptoms overall improved, he has some URI symptoms so may have been viral Cancer 10/28/2022 12/15/2022 Fever 10/28/2022 03/18/2023 Assessment & Plan (10/28/2022 12:06 PM CDT): - Patient reports he is spiking fever and cough since 10/26 - Recent admission 09/25-10/02 admitted for MSSE bacteremia, thought to be related to cellulitis source. Has completed po linezolid 10/02-. Last admission 10/08-10/11 for fever was likely related to URI as infectious work up remained negative cefe/vanc was de-escalated given no fever. - unlikely to have meningitis given exam - Sepsis work up sent; Bcx, Cxr, Lactate, Ua and RVP - Ct CAP ordered - Started on cefepime/Vancomcyin Fever 10/08/2022 08/22/2024 Assessment & Plan (08/05/2024 11:42 PM MANAGER OF CREATIVE SERVICES): RESOLVED. DDx include viral infection vs transient bacteremia. Infectious work- up otherwise negative. - P/w 1-day history of fever and diarrhea with Tmax 102.6. Concern for possible CDI vs other enterocolitis pathogen. Of note, during his recent previous hospitalization, he developed a fever with negative infectious work-up (CXR, UA, RPP) that was attributed to bacterial gut translocation in setting of ileus and duodenojejunal ulcers. He clinically improved with broad-spectrum abx, eventually narrowed to cipro/flagyl -CT A/P without any inflammation or signs of infection - Tylenol prn. Assessment & Plan (07/20/2024 11:30 AM MANAGER OF CREATIVE SERVICES): - Developed fever 38.4 C on 07/16 - RVP neg, CXR neg, UA neg - Bcx NGTD - Likely 2/2 bacterial gut translocation iso ileus and duodenojejunal ulcers - Started empirically on Cefe, LZD, Flagyl. Defervesced. DC LZD. Changed Cefe/Flagyl --> Cipro/Flagyl and completed course. Assessment & Plan (10/11/2022 4:36 PM CDT): Many presenting symptoms and fever. Previous admission 09/25-10/02 admitted for MSSE bacteremia, thought to be related to cellulitis source. No apparent cellulitis on exam. Has completed po linezolid 10/02-. - has been on broad spectrum antibiotics, per ID stop antibiotics and monitor - unlikely to have meningitis given exam - CT chest A/P from 10/08 was unremarkable for any foci suspicious for infectious etiology. - likely related to URI, symptomatic support Staphylococcus epidermidis bacteremia 09/23/2022 12/15/2022 Assessment & Plan (10/01/2022 1:33 PM CDT): Blood cultures x 2 from 09/22 + for coag negative staph-->both speciated to be staph epidermidis. Started on vancomycin 09/23. 2nd set of blood cultures with no growth to date, but had taken ~22hrs to turn positive. - follow up repeat cultures - ID consulted for further management: transition to cefazolin for MSSE - RUE dopplers obtained without evidence of DVT or phlebitis involving IJ or subclavian veins, only showed superficial thrombus of the basilic vein - plan for 1 week of IV cefazolin (09/25 - 10/01) -> linezolid 600 mg PO BID (10/02 - 10/08), and will need repeat blood cultures 1-2 weeks after completion of antibiotics Assessment & Plan (09/24/2022 9:33 AM CDT): Blood cultures x 2 from 09/22 + for coag negative staph. Started on vancomycin 09/23. Vanc trough ordered for today (09/24) 2nd set of blood cultures with no growth to date ID consulted, appreciate recommendations May need LEVAR pending 2nd culture results Headache 09/23/2022 10/28/2022 Assessment & Plan (10/01/2022 1:34 PM CDT): He continues to have persistent headache and R neck pain, but improving. No alarm sxs, meningismus, neurologically intact. - CT head negative for acute intracranial abnormality. - Given the ongoing headache, Brain MRI was recommended by ID for evaluation of mets or infection and transferred from [facility] to [facility]. 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 - CT neck/soft tissue with contrast: soft tissue thickening of the left frontoparietal scalp extending inferiorly into the left temporal and infratemporal skin and subcutaneous fat with associated dermal calcifications. This is chronic per discussion with patient. - Ordered MRI brain and MRI spine (EP consulted) to evaluate for metastases, planned for 10/02 Assessment & Plan (09/23/2022 2:02 PM CDT): Patient continues to have persistent headache. No alarm sxs, neurologically intact. - CT head negative for acute intracranial abnormality. - Given the ongoing headache, Brain MRI was recommended by ID for evaluation of mets or infection. Patient is unable to obtain MRI here due to ICD. Plan to transfer to [facility] for further evaluation w/ possible MRI brain and LP. Abnormal CT scan of lung 09/22/2022 Assessment & Plan (09/26/2022 6:54 PM CDT): CT chest on 09/21 with 5 mm opacity in the medial right middle lobe could represent focal atelectasis or a pulmonary nodule. -recommend OP f/u Assessment & Plan (09/22/2022 11:15 AM CDT): CT chest on 09/21 with 5 mm opacity in the medial right middle lobe could represent focal atelectasis or a pulmonary nodule. -recommend OP f/u Lower extremity edema 09/22/20222022 Assessment & Plan (09/22/2022 12:59 PM CDT): Patient reports lower extremity edema, perhaps at baseline. Some redness noted to bilateral legs (possibly some component of venous stasis.) -bilateral lower extremity US to rule out DVT given at higher risk w/ active malignancy Generalized weakness 09/21/2022 023 Assessment & Plan (09/23/2022 2:02 PM CDT): Likely multifactorial in setting recent C1 gemcitabine/paclitaxel, now w/ bacteremia -Respiratory viral panel negative. Strep negative. -blood cultures + for coag negative staph. Second set of blood cultures were ordered and patient was started on vancomycin. -PT/OT Assessment & Plan (09/22/2022 3:35 AM CDT): -may simply be related to recent C1 gemcitabine/paclitaxel -however, he reports chills (?fever), myalgias/malaise, nausea and diarrhea which raise concern for an infectious syndrome -FINISHED GOODS INSPECTOR swab RPP negative -check blood cultures; hold Abx for now but if spikes fever, will collect urine sample and start broad Abx w/ESBL coverage -send stool for C.diff given report of diarrha; if positive will need PO vancomycin and ID consult -if symptoms persist/worsen, consider LP Neck pain 09/21/2022 10/28/2022 Assessment & Plan (10/01/2022 1:34 PM CDT): Presents with new neck pain, may be related to recent Port placement given mild stranding noted on CT -scheduled tylenol with ibuprofen 600 mg q6h PRN and oxyIR 5 for breakthru pain; prn flexeril added for spasm Assessment & Plan (09/23/2022 1:31 PM CDT): Patient reports slight improvement in neck pain today. -mild stranding noted on CT, perhaps inflammation from port placement possibly contributing. -IR consulted for evaluation of port, and it is working well, agree that noted inflammation on CT likely 2/2 to recent placement, not infection -continue home voltaren gel as he states this seems to provide most relief. -scheduled APAP 1g q8 and oxyIR 5 for breakthru pain; prn flexeril added for spasm Assessment & Plan (09/22/2022 3:28 AM CDT): -seems myalgic in nature -may be related to recent Port placement given mild stranding noted on CT -scheduled APAP 1g q8 with IV toradol 15 q6 PRN and oxyIR 5 for breakthru pain; prn flexeril added for spasm Severe malnutrition 08/24/2022 10/29/19 Acute pain of left shoulder 08/23/2022 10/28/2022 Assessment & Plan (08/24/2022 1:12 PM MANAGER OF CREATIVE SERVICES): Referred pancreatitis pain. 12 lead EKG shows no acute changes, baseline NSR with RBB and intrafascicular block. Trop negative. Elevated transaminase level 08/21/2022 10/28/2022 Assessment & Plan (08/24/2022 1:10 PM MANAGER OF CREATIVE SERVICES): First noted to have elevated alk phos, AST/ALT on 08/16 which continue to trend upwards. Normal bilirubin. CT abd/pelvis prelim read notes mild intrahepatic biliary ductal dilatation and questionable pancreatic lesion. No history of significant acetaminophen use and acetaminophen level <5. No history of significant ETOH use. Possibly secondary to medications (Avycaz, fidaxomicin are only new meds and LFTs elevated prior to starting these) EUS with FNA and ERCP with sphincterotomy and stent placement 08/22. FNA of pancreatic mass shows adenocarcinoma. LFT continues to down trend. Will follow up with GI as outpatient as well as oncology and surgery C. difficile colitis 08/21/2022 023 Assessment & Plan (08/22/2022 2:20 PM MANAGER OF CREATIVE SERVICES): Diagnosed as outpatient and started on fidaxomicin by ID 08/16/2022. Still with persistent diarrhea. -Continue fidaxomicin -ID following Pancreatic lesion 08/20/2022 10/28/2022 Overview (08/21/2022): Added automatically from request for surgery [id number] Assessment & Plan (08/24/2022 1:08 PM MANAGER OF CREATIVE SERVICES): S/P EUS wit FNA confirmed adenocarcinoma. GI arranging oncology and surgical follow up as outpatient Urinary tract infection asso ciated with cystostomy catheter, initial encounter 04/09/2022 0 10/28/2022 Brugada syndrome 07/09/2020 09/10/2020 Cough in adult 06/09/2019 10/28/2022 Assessment & Plan (06/09/2019 12:52 PM MANAGER OF CREATIVE SERVICES): This appears to be chronic and persist despite switching from ACEI to ARB. He will contact his range conservationist to follow up regarding this. Urinary incontinence 08/18/2018 023 Assessment & Plan (08/18/2018 1:22 AM MANAGER OF CREATIVE SERVICES): Continue with Myrbetriq and vesicare Polymorphic ventricular tachycardia 07/26/2018 10/28/2022 Prolonged Q-T interval on ECG 07/26/2018 10/28/2022 Assessment & Plan (10/08/2022 8:58 PM CDT): - QTc- 484 on admission with likely fascicular block - Pt has previous hx of VT arrest - Monitor closely on telemetry - Keep Mg > 2.0 and K > 4.0 History of fracture 11/08/2017 10/29/19 23 Pain of foot 07/27/2017 10/28/2022 Chronic kidney disease, stage 2 (mild) 11/06/2016 10/28/2022 Numbness of lower extremity 09/20/2016 10/28/2022 Inflammation of sacroiliac joint 08/20/2016 10/28/2022 Osteoarthritis of lumbar spine 08/20/2016 10/28/2022 Fatigue 08/14/2016 10/28/2022 Increased frequency of urination 08/14/2016 10/28/2022 Encounter for preventive health examination 08/08/2016 10/28/2022 Lumbago 07/31/2016 10/28/2022 Carpal tunnel syndrome 07/19/201610/28 Triggering of digit 07/19/2016 10/29/19 23 Nephrolithiasis 03/20/2016 10/28/2022 Insomnia 12/16/2015 10/28/2022 Ventilatory defect 12/15/2015 3 Hypoglycemia 05/10/2015 10/28/2022 Long Q-T syndrome 03/19/2015 10/28/2022 Chronic sinusitis 12/23/2014 10/28/2022 Orthopedic aftercare 03/05/2014 023 Chest discomfort 08/20/2013 10/28/2022 Class 2 severe obesity with serious comorbidity in adult 02/17/2013 10/28/2022 Assessment & Plan (06/09/2019 12:47 PM MANAGER OF CREATIVE SERVICES): Congratulated on recent weight loss. Continue attention to diet, low carb, exercise as able. 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
--- OUTSIDE RECORDS SUMMARY | 2025-02-09 08:24 | XMS_ITS | Clinical Summary ---
Author Organization [facility] Address [address] [place] [address] Care Team Providers Care Packing Room Supervisor Name Role Phone Kenton Ricks MD Primary Care Provider + [phone] Pebbles Nelson MD Unavailable [phone] Aylin Russ MD Unavailable [phone] Maricruz Ramirez NP Unavailable [phone] Joanne Lopez RN Unavailable Padmini Ben Walker MD PhD Unavailable [phone] Giovanna Alexis MD Unavailable Abby Higgins MD PhD Unavailable + Adrian Martinez MD Unavailable [phone] Vera Pérez Unavailable [phone] Jim Frausto MD Unavailable [phone] Allergies Active Allergy Reactions Criticality Noted Date Comments Prochlorperazine Other (See comments) High 08/24/2022 Tardive dyskinesia Iron Dextran Chest tightness Medium 05/14/2023 Menthol Other (See comments) Low 09/17/2017 Moura Skin Meropenem Shortness of breath High 04/11/2022 Tremors, nausea Ceftriaxone Other (See comments) Low 11/21/2023 AFIB Sulfa (Sulfonamide Antibiotics) Hives Medium 05/05/2021 Vancomycin Flushing (skin) Low 12/14/2022 Red man's syndrome Medications albuterol HFA (PROVENTIL HFA,VENTOLIN HFA,PROAIR HFA) 90 mcg/actuation inhaler Inhale 2 puffs every 6 (six) hours as needed for wheezing Active lancets 33 gauge miscIndications:T ype 2 diabetes mellitus with other specified complication, without long-term current use of insulin Use humana true metrix to check glucose 3-4 times a day 300 each 3 022 Active diclofenac sodium (VOLTAREN) 1 % gel Apply 2 g topically 4 (four) times a day as needed (pain) 023 Active oxyBUTYnin XL (DITROPAN XL) 15 mg 24 hr tablet Take 1 tablet (15 mg total) by mouth nightly 023 Active fluticasone furoate-vilantero L (BREO ELLIPTA) 100-25 mcg/dose diskus inhaler Inhale 1 puff daily Rinse mouth with water after use. Do not swallow. 1 each 5 023 Active fluticasone propionate (FLONASE) 50 mcg/actuation nasal spray Administer 1 spray into each nostril daily as needed for rhinitis Active aspirin 81 mg enteric coated tablet Take 1 tablet (81 mg total) by mouth nightly Active vitamin b complex tablet Take 1 tablet by mouth nightly Active pramipexole (MIRAPEX) 1 mg tablet Take 1-2 tablets (1-2 mg total) by mouth 2 (two) times a day 1 in am 2 in PM Active simethicone (MYLICON) 80 mg chewable tablet Take 1 tablet (80 mg total) by mouth 4 (four) times a day (with meals and nightly) Active ascorbic acid 500 mg tablet,chewable Take 1 tablet/chew tab (500 mg total) by mouth nightly Active multivit lcocglrb-ytie-ER- calcium (THERA-M) 9 mg iron-400 mcg tablet Take 1 tablet by mouth nightly Active Gemtesa 75 mg tablet Take 75 mg by mouth nightly Active pen needle, diabetic (BD Ultra-Fine Mini Pen Needle) 31 gauge x 3/16 needleIndications :Type 2 diabetes mellitus with other specified complication, without long-term current use of insulin TAKE WITH INSULIN INJECTION 4 TIMES A DAY 400 each 2 Active FreeStyle Stephen 3 Plus Sensor deviceIndications :Type 2 diabetes mellitus with microalbuminuria, with long-term current use of insulin (HCC) Use to continually monitor glucose, change sensor every 15 days 6 each 3 Active Additional Information Patient not taking.Reported on 01/19/2025 blood glucose diagnostic (True Metrix Glucose Test Strip) stripIndications: Type 2 diabetes mellitus with other specified complication, without long-term current use of insulin USE HUMANA TRUE METRIX TO CHECK GLUCOSE 3-4 TIMES A DAY 300 strip 3 025 Active rosuvastatin (CRESTOR) 5 mg tabletIndications :Mixed hyperlipidemia Take 1 tablet (5 mg total) by mouth every morning 90 tablet [address] (PROTONIX) 40 mg EC tablet Take 1 tablet (40 mg total) by mouth 2 (two) times a day 60 tablet 025 Active lidocaine (LIDODERM) 5 %Indications: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 90 patch 3 025 2025 Active spironolactone (ALDACTONE) 25 mg tablet TAKE 1 TABLET (25 MG TOTAL) BY MOUTH DAILY. 90 tablet 3 025 Active pancrelipase (CREON) 24,000 units of lipase capsule Take 5 capsules by mouth with meals. Take 2 capsules by mouth at bedtime and 1-2 capsules by mouth with snacks daily. 1800 capsule 3 025 Active acetaminophen 500 mg capsuleIndication s:Fever,Pain Take 2 capsules (1,000 mg total) by mouth every 6 (six) hours as needed for fever or headaches Active insulin aspart (NovoLOG) 100 unit/mL (3 mL) pen for injectionIndicati ons:Type 2 diabetes mellitus with other specified complication, without long-term current use of insulin Sliding scale: Blood glucose mg/dL: 149 or less: No insulin 150-199: give 2 unit 200-249: give 4 units 250-299: give 6 units 300-349: give 8 units and notify physician for adjustment of insulin orders. 350-399: give 10 units and notify physician for adjustment of insulin orders. Over 400: Notify physician for adjustment of insulin orders. Active Additional Information Patient taking differently: Sliding scale: Blood glucose mg/dL: 149 or less: No insulin 150-199: give 2 unit 200-249: give 4 units 250-299: give 6 units 300-349: give 8 units and notify physician for adjustment of insulin orders. 350-399: give 10 units and notify physician for adjustment of insulin orders. Over 400: Notify physician for adjustment of insulin orders.Per patient, sliding scale is at bedtime only, Reported on 01/19/2025 lidocaine (GLYDO) 2 % jelly in applicator Apply 5 mL (100 mg total) topically 4 (four) times a day as needed for other (For anal fissure) 5 Other 2 Active ondansetron (ZOFRAN) 8 mg tabletIndications :Pancreatic adenocarcinoma (HCC) Take 1 tablet (8 mg total) by mouth every 8 (eight) hours as needed for nausea or vomiting 20 tablet Active oxyCODONE (ROXICODONE) 5 mg immediate release tabletIndications :Pain Take 1 tablet (5 mg total) by mouth every 6 (six) hours as needed for pain 20 tablet Active polyethylene glycol (MIRALAX) 17 gram packetIndications :constipation Take 1 packet (17 g total) by mouth 2 (two) times a day Active psyllium, aspartame, SF (METAMUCIL SF) 3.4 gram packet Take 1 packet by mouth daily 2025 Active torsemide (DEMADEX) 20 mg tablet Take 0.5 tablets (10 mg total) by mouth daily 05/26/2 025 Active NIFEdipine (PROCARDIA) ointment 0.2 %Indications:Anal Fissure Insert into the rectum every 8 (eight) hours as needed (before BM) 60 g 025 Active traZODone (DESYREL) 50 mg tablet Take 1 tablet (50 mg total) by mouth nightly as needed for sleep 30 tablet 025 Active al & mag hydroxide simethicone-lidoc dniora oral suspension mixture Take 40 mL by mouth 4 (four) times a day as needed (Heartburn/ Indigestion) 200 mL 025 Active ferrous sulfate 325 mg (65 mg of elemental iron) tabletIndications :Iron Deficiency Anemia Take 1 tablet (325 mg total) by mouth daily with breakfast 90 tablet 1 025 2024 Active dicyclomine (BENTYL) 20 mg tablet Take 1 tablet (20 mg total) by mouth 4 (four) times a day as needed (abdomial cramps) Active insulin aspart (NovoLOG) 100 unit/mL (3 mL) pen for injection Inject 12 Units under the skin 3 (three) times a day with meals Active insulin degludec (TRESIBA) 100 unit/mL (3 mL) pen for injection Inject 0.4 mL (40 Units total) under the skin daily Active gabapentin (NEURONTIN) 600 mg tabletIndications :Neuropathic Pain Take 1 tablet (600 mg total) by mouth 3 (three) times a day 90 tablet 1 025 2024 Active cyclobenzaprine (FLEXERIL) 5 mg tabletIndications :Muscle Spasm Take 1 tablet (5 mg total) by mouth 3 (three) times a day as needed for muscle spasms 30 tablet 025 Active cyclobenzaprine (FLEXERIL) 5 mg tabletIndications :Muscle Spasm Take 1 tablet (5 mg total) by mouth 3 (three) times a day as needed for muscle spasms 2024 Discontinued sucralfate (CARAFATE) 1 gram tablet Take 1 tablet (1 g total) by mouth 4 (four) times a day (with meals and nightly) 120 tablet 2 025 2024 Discontinued(S top Taking at Discharge) insulin degludec (TRESIBA) 100 unit/mL vial for injection Inject 10 Units under the skin daily 025 2024 Discontinued(D uplicate order) gabapentin (NEURONTIN) 300 mg capsule Take 1 capsule (300 mg total) by mouth 3 (three) times a day 90 capsule 025 2024 Discontinued(S top Taking at Discharge) dicyclomine (BENTYL) 20 mg tablet Take 1 tablet (20 mg total) by mouth 4 (four) times a day as needed (Abdominal cramps) 120 tablet 025 2024 Discontinued(D uplicate order) oxyCODONE (ROXICODONE) 5 mg immediate release tabletIndications :Pain Take 1 tablet (5 mg total) by mouth every 6 (six) hours as needed for pain (for severe pain) for up to 10 days 10 tablet 025 2024 Active Problems Problem Noted Date Diagnosed Date [...] 08/23/2024 Assessment & Plan (08/26/2024 3:51 PM FERTILIZING MACHINE OPERATOR): The patient reported left eye pain with [...] 08/11/2024 Assessment & Plan (08/26/2024 4:05 PM FERTILIZING MACHINE OPERATOR): Patient developed hematemesis on 08/11 with hypotension [...] 08/04/2024 Assessment & Plan (08/22/2024 10:54 PM FERTILIZING MACHINE OPERATOR): Started allopurinol this admission Moderate protein-calorie malnutrition [...] 07/16/2024 Assessment & Plan (07/20/2024 11:28 AM FERTILIZING MACHINE OPERATOR): - Resulted with Nystatin Anal fissure 11/21/2023 Assessment & Plan (01/15/2025 11:15 AM CDT): -Continue prn lidocaine VA and nifedipine ointment Assessment & Plan (01/14/2025 11:42 AM CDT): -Continue prn lidocaine VA and nifedipine ointment Assessment & Plan (01/13/2025 12:04 PM CDT): -Continue prn lidocaine VA and nifedipine ointment Assessment & Plan (01/13/2025 1:06 AM CDT): -Continue prn lidocaine VA and nifedipine ointment Assessment & Plan (12/10/2024 [...] topical CCB - cannot obtain her at [facility] Assessment & Plan (11/22/2024 12:07 PM CDT): - psyllium qAM, added miralax daily - Added lidocaine jelly qid prn - Sitz baths BID - Will try to start topical CCB - cannot obtain her at [facility] Assessment & Plan (11/21/2024 11:50 AM CDT): - psyllium qAM, added miralax daily - Added lidocaine jelly qid prn - Sitz baths BID - Will try to start topical CCB - cannot obtain her at [facility] Assessment & Plan (11/20/2024 11:11 AM CDT): [...] am Home o2 eval ordered Possible dc 4/16 Cont ppv qhs Assessment & Plan (10/14/2023 5:00 PM CDT): Reports hx copd, vick on ppv, and diaphragmatic paralysis Will add airway clearance and IS Cont inhalers He has diminished volumes but no crackles or wheezes Cxr rev/int- pulm edema gone Cont hycodan, chloraseptic Wean O2 Cont ppv qhs VICK (obstructive sleep apnea) 10/13/2023 Assessment & Plan (11/24/2024 9:17 AM CDT): -CPAP at [facility] Assessment & Plan (11/23/2024 9:48 AM CDT): -CPAP at [facility] Assessment & Plan (11/22/2024 12:07 PM CDT): -CPAP at [facility] Assessment & Plan (11/21/2024 11:50 AM CDT): -CPAP at [facility] Assessment & Plan (11/20/2024 11:11 AM CDT): -CPAP at [facility] Assessment & Plan (11/20/2024 1:34 AM CDT): -CPAP at [facility] Assessment & Plan (10/15/2023 2:34 PM CDT): xCont ppv qhs Assessment & Plan (10/13/2023 2:03 PM CDT): Cont ppv qhs COPD (chronic obstructive pulmonary disease) Assessment & Plan (08/26/2024 4:00 PM FERTILIZING MACHINE OPERATOR): Cont. breo ellipta, prn albuterol Iron deficiency [...] 07/25/2023 Assessment & Plan (07/26/2023 12:35 PM FERTILIZING MACHINE OPERATOR): - Likely multifactorial 2/2 malignancy, recent whipple, chemotherapy, and pain - Very poor PO intake - RD c/s - Started Mirtazapine - Dietary supplementation - Increased Creon as above Malaise 07/24/2023 Assessment & Plan (07/25/2023 2:16 PM FERTILIZING MACHINE OPERATOR): - RVP negative - Improving Kidney lesion 07/21/2023 Assessment & Plan (07/25/2023 2:21 PM FERTILIZING MACHINE OPERATOR): - Left renal cyst noted since at [...] 07/20/2023 Assessment & Plan (07/26/2023 12:33 PM FERTILIZING MACHINE OPERATOR): - Acute on chronic epigastric pain following [...] 07/09/2023 Assessment & Plan (07/24/2023 5:22 PM FERTILIZING MACHINE OPERATOR): - Replace per protocol Acute hypoxemic respiratory failure due to COVID -19 06/07/2023 Assessment & Plan (06/12/2023 3:47 PM FERTILIZING MACHINE OPERATOR): Presented with 3 days of fever, dry cough, SOB. SO2 on admission was 87% on RA, RVP + Covid 2018, Chest X ray without pneumonia -CPAP overnight [...] 05/30/2023 Assessment & Plan (07/14/2024 12:30 PM FERTILIZING MACHINE OPERATOR): History of Postoperative GI bleed. EGD 05/09/23 [...] 02/05/2023 Assessment & Plan (07/21/2023 2:06 AM FERTILIZING MACHINE OPERATOR): Also has Hx of prostate cancer s/p prostatectomy. Takes gemtesa at home which is not on formulary - continue home oxybutynin and flomax Assessment & Plan (02/09/2023 3:46 PM CDT): Patient presented w/ low urine output and asymptomatic urinary retention, required straight cath in [facility], currently voiding and emptying appropriately [...] 11/21/2022 Assessment & Plan (08/26/2024 4:05 PM FERTILIZING MACHINE OPERATOR): The patient presented with elevated alkaline phosphatase [...] he is scheduled MRI in December at [facility] (requires cardiac monitoring due to ICD) - he is hoping to have this done sooner. Ileus 11/21/2022 Assessment & Plan (07/20/2024 11:29 AM FERTILIZING MACHINE OPERATOR): - KUB done 07/13 showing ileus without [...] 10/08/2022 Assessment & Plan (07/21/2023 2:04 AM FERTILIZING MACHINE OPERATOR): Diagnosed in August 2022, now s/p course of Eliquis. Presented with trace b/l lower ext edema, b/l erythema and mild tenderness which per patient is increased from baseline. Had similar presentation last hospitalization and LE duplex 06/07 was negative - CTM and consider rescanning if persistent Assessment & Plan (06/09/2023 4:47 PM FERTILIZING MACHINE OPERATOR): Hx of DVT in August 2022, he [...] 09/23/2022 Assessment & Plan (06/12/2023 3:50 PM FERTILIZING MACHINE OPERATOR): - contact dermatitis? Not concerned about drug [...] to melisa skin necrosis. - transfer to [facility] for derm eval Anemia 09/22/2022 Assessment & Plan (07/26/2023 12:35 PM FERTILIZING MACHINE OPERATOR): Acute on chronic. 7.4 on admission. 5 [...] negative. Assessment & Plan (06/12/2023 3:46 PM FERTILIZING MACHINE OPERATOR): HGb 7, plt 94, wbc 1.4, abs [...] 09/22/2022 Assessment & Plan (07/26/2023 12:34 PM FERTILIZING MACHINE OPERATOR): Has Hx of ileus. On scheduled Linzess, Miralax and PRN Senna-Docusate at home. Patient states he's been having 4-5 soft stools daily - Increased Creon as above. Bowel regimen. Assessment & Plan (06/07/2023 11:26 PM FERTILIZING MACHINE OPERATOR): Continue home regimen of Linzess, Miralax and [...] 1:42 AM CDT): Last BM was yesterday (3/26) with slight improvement to abdominal discomfort. He [...] (08/30/2022): Added automatically from request for surgery [id number] Assessment & Plan (10/15/2023 2:34 PM CDT): Hx of L axillary nodes on CT increased from prior study Should f/u with Dr. Chahal Assessment & Plan (10/13/2023 2:03 PM CDT): Hx of L axillary nodes on CT increased from prior study Should f/u with Dr. Chahal Assessment & Plan (07/26/2023 12:31 PM FERTILIZING MACHINE OPERATOR): - s/p whipple. Follows with Dr. Chahal [...] plan to hold of next cycle of Boyers/Abraxane till infectious etiology is ruled out Assessment [...] plan to hold of next cycle of Boyers/Abraxane till infectious etiology is ruled out Assessment [...] surveillance Assessment & Plan (08/26/2024 4:00 PM FERTILIZING MACHINE OPERATOR): s/p whipple with PV/SMV resection (04/2023) and neoadjuvant chemo (completed 08/2023). Most recent scan showed no evidence of disease recurrence Currently on surveillance with CA 19-[address] CAP every 3 months Assessment & Plan (07/10/2024 10:48 PM FERTILIZING MACHINE OPERATOR): Pancreatic cancer s/p Whipple with PV/SMV resection on 04/11/2023 s/p neoadjuvant tx, On surveillance OP follow up. Assessment & Plan (06/08/2023 5:32 PM FERTILIZING MACHINE OPERATOR): Pancreatic adenocarcinoma sp Whipple, now on Gemcitabine [...] 1 Assessment & Plan (08/25/2022 12:23 PM FERTILIZING MACHINE OPERATOR): Recurrent UTI followed by ID with scrotal [...] 06/09/2019 Assessment & Plan (06/09/2019 12:54 PM FERTILIZING MACHINE OPERATOR): He is agreeable to rescheduling the splenic MRI to further define previously incidentally discovered lesion, to better characterize this and establish follow up as necessary. Order entered. I provided Mr. Henson with the phone # to radiology to call if he does not hear back from the office by next week. Chronic diastolic (congestive) heart failure Assessment & Plan (07/14/2024 12:35 PM FERTILIZING MACHINE OPERATOR): HFpEF Euvolemic, normotensive On hold diuretics for now given pt NPO on IVF for ileus, will restart once able to take in po Assessment & Plan (06/11/2023 10:01 PM FERTILIZING MACHINE OPERATOR): ECHO 11/21 EF 69%, grade I diastolic [...] diet Assessment & Plan (08/24/2022 1:10 PM FERTILIZING MACHINE OPERATOR): Stable, continued torsemide, spironolactone Assessment & Plan (09/24/2021 12:42 AM CDT): Patient is feeling better. states legs have decreased by half. Continue with IV lasix. Continue to monitor Cr and lytes as we diurese. Holding torsemide. Continue aldactone with hold parameters. Assessment & Plan (08/18/2018 1:16 AM FERTILIZING MACHINE OPERATOR): Patient presented with increased shortness of breath [...] NPPV Assessment & Plan (08/26/2024 4:02 PM FERTILIZING MACHINE OPERATOR): continue nightly CPAP Assessment & Plan (07/21/2023 6:17 AM FERTILIZING MACHINE OPERATOR): Desaturations noted in the ED during sleep per on monitor while on RA (not recorded) - continue nightly BiPAP Assessment & Plan (06/07/2023 11:32 PM FERTILIZING MACHINE OPERATOR): Continue nightly BiPAP Assessment & Plan (03/18/2023 [...] 8:24 AM CDT): -resume home CPAP at [facility] Assessment & Plan (09/22/2022 3:17 AM CDT): -resume home CPAP at [facility] Assessment & Plan (08/24/2022 1:08 PM FERTILIZING MACHINE OPERATOR): - home CPAP machine use Assessment & Plan (09/24/2021 12:39 AM CDT): Patient has home NPPV which has been reordered. Assessment & Plan (08/18/2018 1:17 AM FERTILIZING MACHINE OPERATOR): Patient with a history of of bilateral diaphragmatic paralysis with central and obstructive sleep apnea. Restart CPAP Shortness of breath at rest 08/18/2018 Assessment & Plan (08/18/2018 1:27 AM FERTILIZING MACHINE OPERATOR): Patient with complex past medical history with [...] 07/26/2018 Assessment & Plan (08/26/2024 4:05 PM FERTILIZING MACHINE OPERATOR): H/o vtach s/p ICD 2013 EP consulted for MRCP earlier in admission. Patient's device is conditioned for MRI. Risk stratification: standard Assessment & Plan (07/10/2024 10:38 PM FERTILIZING MACHINE OPERATOR): History of ventricular tachycardia ICD in place Assessment & Plan (07/21/2023 2:11 PM FERTILIZING MACHINE OPERATOR): Follows with Dr. Nelson in EP for [...] Aug Assessment & Plan (06/11/2023 9:59 PM FERTILIZING MACHINE OPERATOR): Follows with Dr. Nelson in EP for history of VT s/p ICD. Denies any recent shocks, as per not there was unscheduled alarm this month due to RV lead impedance. Has outpatient appointment in August Outpatient follow up with EP Assessment & Plan (03/18/2023 1:23 AM CDT): Monitor. MRI conditional. If needs MRI, will need to go to [facility]. Assessment & Plan (02/05/2023 6:58 PM CDT): [...] ordered Assessment & Plan (08/18/2018 1:17 AM FERTILIZING MACHINE OPERATOR): Last device interrogation was in July of [...] s/p shoulder surgery. Follows with Dr. Russ ([facility]) as OP. On Symbicort at home. 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 Russ - c/w Breo-Ellipta Assessment & Plan (08/18/2018 1:17 AM FERTILIZING MACHINE OPERATOR): Continue with gabapentin Chronic heart failure with [...] PO Assessment & Plan (08/26/2024 4:06 PM FERTILIZING MACHINE OPERATOR): Volume down on admission due to diarrhea, now appear slightly volume up, likely I/s/o transfusions and held diuretics Continue to hold home torsemide and spironolactone for now, consider gently resuming prior to discharge Assessment & Plan (07/26/2023 12:34 PM FERTILIZING MACHINE OPERATOR): BLE edema with erythema noted on exam. [...] elevated at home, he can contact his PCP/manager urology for further insulin adjustments. Assessment & Plan [...] regimen Assessment & Plan (08/26/2024 4:05 PM FERTILIZING MACHINE OPERATOR): Last A1c 8.4. Home regimen: tresiba 45 units, novolog 12 units w/ breakfast and dinner, 8 units with lunch and sliding scale 1:50 > 150 Continue lantus 5 units qam + SSI Assessment & Plan (07/17/2024 2:29 PM FERTILIZING MACHINE OPERATOR): - On tresiba 24U Qam and Lispro [...] hdssi Assessment & Plan (07/26/2023 12:33 PM FERTILIZING MACHINE OPERATOR): Insulin dependant. Home regimen: Tresiba 42 units qam, Meal-time insulin 15u tid, SSI. Has had poor oral intake over last 2-3 weeks. He mentions his Stephen 2 sensor has been recording low sugars in 40s-50s overnight for 1 week - SSI inpatient - QID accuchecks Assessment & Plan (06/08/2023 5:39 PM FERTILIZING MACHINE OPERATOR): Hgb1c 8.4% in 04/23, follows with endo [...] -SSI Assessment & Plan (08/24/2022 1:07 PM FERTILIZING MACHINE OPERATOR): -Home regimen metformin + Tresiba 35 units qAM and novolog 11 units with meals plus SSI -Continue basal bolus regimen, dose reduced while inpatient -Accuchecks Assessment & Plan (09/24/2021 12:38 AM CDT): Patient on PO hypoglycemics. Monitor on SSI. Assessment & Plan (06/09/2019 12:53 PM FERTILIZING MACHINE OPERATOR): Diet controlled. A1C at goal. On ARB. Follow up with ophtho as previously scheduled. Recommend statin for primary prevention. He will follow up with his PCP for this Adrenal nodule ([facility]/HCC) 09/06/2015 Assessment & Plan (06/09/2019 12:49 PM FERTILIZING MACHINE OPERATOR): Nodule has not grown on interim imaging. Needs low dose dexamethasone suppression test annually x 5 years since initial evaluation given propensity of some adrenal nodules to become cortisol secreting overtime. Thyroid nodule 09/06/2015 Assessment & Plan (06/09/2019 12:48 PM FERTILIZING MACHINE OPERATOR): S/p FNA with benign cytology. Will repeat US in the spring to monitor biopsied thyroid nodule for growth. Multinodular goiter 05/10/2015 Hernia of abdominal wall 02/18/2015 Assessment & Plan (06/09/2019 12:54 PM FERTILIZING MACHINE OPERATOR): He will follow up with Dr. 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 Higgins in medical oncology [...] 02/23/2012 Assessment & Plan (08/26/2024 4:06 PM FERTILIZING MACHINE OPERATOR): continue home rosuvastatin consider resuming ASA Assessment & Plan (07/10/2024 10:44 PM FERTILIZING MACHINE OPERATOR): Cath in 10/2023 nonobstructive coronary artery disease [...] asthma Assessment & Plan (07/21/2023 2:06 AM FERTILIZING MACHINE OPERATOR): Follows with Dr. Nelson - Continue home Breo and PRN albuterol inhaler Assessment & Plan (06/07/2023 11:31 PM FERTILIZING MACHINE OPERATOR): Follows with Dr. Nelson in pulmonary -Continue home Breo and PRN albuterol inhaler Assessment & Plan (09/25/2022 1:41 AM CDT): -Continue home inhalers. Assessment & Plan (09/22/2022 11:00 AM CDT): Continue home inhalers. Assessment & Plan (08/21/2022 4:13 AM FERTILIZING MACHINE OPERATOR): -Symbicort replaced with formulary Breo Ellipta while inpatient -Continue prn albuterol Assessment & Plan (09/24/2021 12:42 AM CDT): Continue breathing treatment. Resolved Problems Problem Noted Date Diagnosed Date Resolved Date Abdominal pain, generalized 01/12/2025 01/13/2025 Ventilator associated pneumonia 08/22/2024 08/22/2024 Acute hypoxemic respiratory failure 08/22/2024 08/23/2024 Assessment & Plan (08/22/2024 8:41 PM FERTILIZING MACHINE OPERATOR): Fevers + O2 requirement Aug 14, subsequently found to be positive for Influenza A and Coronavirus ([id number]). 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 S/p tamiflu, Linezolid (08/15-08/18), Cefepime (08/15- 08/17), Ciprofloxacin (08/08). Currently on RA. - supportive care Dysuria 07/25/2024 08/24/2024 Assessment & Plan (08/22/2024 10:12 PM FERTILIZING MACHINE OPERATOR): Now resolved. UA on admission with leuk [...] 07/25/2024 Assessment & Plan (07/29/2024 3:21 PM FERTILIZING MACHINE OPERATOR): Pt reports new burning pain around left axilla that wraps to the front of his chest. Notes he had this before and area began draining pus and had a foul odor - no erythema or rash noted -Us L axilla- no signs of any fluid collection or lymphadenopathy - already on gabapentin Gastrointestinal ulcer 07/24/202408/22 Assessment & Plan (08/11/2024 8:44 PM FERTILIZING MACHINE OPERATOR): - Recent admission 07/10-07/20 for abd pain. [...] 07/24/2024 Assessment & Plan (08/02/2024 11:26 AM FERTILIZING MACHINE OPERATOR): Resolved - Baseline Cr 0.5. Cr on admission was 1.01 - Likely pre-renal due to diarrhea - improved with IVF Dehydration 07/24/2024 08/26/2024 Assessment & Plan (07/26/2024 12:35 PM FERTILIZING MACHINE OPERATOR): - due to diarrhea - s/p 1L IVF bolus in CCC and maintenance IVF Diarrhea 07/19/2024 08/24/2024 Assessment & Plan (08/09/2024 2:16 PM FERTILIZING MACHINE OPERATOR): - P/w 1-day history of 7-8 episodes [...] resolved Assessment & Plan (07/20/2024 11:33 AM FERTILIZING MACHINE OPERATOR): - Developed after resolution of ileus. - C diff negative - Increased Creon back to home dose - Imodium prn - Hold Linzess until diarrhea resolved Abdominal pain 11/09/2023 08/25/2024 Assessment & Plan (08/11/2024 8:39 PM FERTILIZING MACHINE OPERATOR): Acute on chronic abdominal pain. Likely multifactorial, [...] hematemesis Assessment & Plan (07/14/2024 12:31 PM FERTILIZING MACHINE OPERATOR): Hx of pancreatic cancer s/p whipple presented initially to the [facility] with abd pain , nausea [...] NSAIDs Assessment & Plan (07/10/2024 9:32 PM FERTILIZING MACHINE OPERATOR): Hx of pancreatic cancer s/p whipple presented initially to the [facility] with abd pain , nausea [...] 08/24/2024 Assessment & Plan (08/11/2024 8:40 PM FERTILIZING MACHINE OPERATOR): Complained chest pain at left chest while [...] 08/01/2024 Assessment & Plan (08/01/2024 2:54 PM FERTILIZING MACHINE OPERATOR): -has ICD in place Assessment & Plan [...] 08/22/2024 Assessment & Plan (08/05/2024 11:42 PM FERTILIZING MACHINE OPERATOR): RESOLVED. DDx include viral infection vs transient [...] prn. Assessment & Plan (07/20/2024 11:30 AM FERTILIZING MACHINE OPERATOR): - Developed fever 38.4 C on 07/16 [...] of mets or infection and transferred from [facility] to [facility]. ID here with low concern for ARMHOLE RAISER LOCKSTITCH infection. - CT neck/soft tissue with contrast: [...] due to ICD. Plan to transfer to [facility] for further evaluation w/ possible MRI brain [...] which raise concern for an infectious syndrome -RIVETER HAND swab RPP negative -check blood cultures; hold [...] 10/28/2022 Assessment & Plan (08/24/2022 1:12 PM FERTILIZING MACHINE OPERATOR): Referred pancreatitis pain. 12 lead EKG shows no acute changes, baseline NSR with RBB and intrafascicular block. Trop negative. Elevated transaminase level 08/21/2022 10/28/2022 Assessment & Plan (08/24/2022 1:10 PM FERTILIZING MACHINE OPERATOR): First noted to have elevated alk phos, [...] 023 Assessment & Plan (08/22/2022 2:20 PM FERTILIZING MACHINE OPERATOR): Diagnosed as outpatient and started on fidaxomicin by ID 08/16/2022. Still with persistent diarrhea. -Continue fidaxomicin -ID following Pancreatic lesion 08/20/2022 10/28/2022 Overview (08/21/2022): Added automatically from request for surgery [id number] Assessment & Plan (08/24/2022 1:08 PM FERTILIZING MACHINE OPERATOR): S/P EUS wit FNA confirmed adenocarcinoma. GI arranging oncology and surgical follow up as outpatient Urinary tract infection asso ciated with cystostomy catheter, initial encounter 04/09/2022 0 10/28/2022 Brugada syndrome 07/09/2020 09/10/2020 Cough in adult 06/09/2019 10/28/2022 Assessment & Plan (06/09/2019 12:52 PM FERTILIZING MACHINE OPERATOR): This appears to be chronic and persist despite switching from ACEI to ARB. He will contact his sign writer hand to follow up regarding this. Urinary incontinence 08/18/2018 023 Assessment & Plan (08/18/2018 1:22 AM FERTILIZING MACHINE OPERATOR): Continue with Myrbetriq and vesicare Polymorphic ventricular [...] 10/28/2022 Assessment & Plan (06/09/2019 12:47 PM FERTILIZING MACHINE OPERATOR): Congratulated on recent weight loss. Continue attention to diet, low carb, exercise as able. Palpitations 10/30/2012 10/28/2022 Disorder of lung 08/05/2012 10/28/2022 Narcolepsy 01/24/2012 10/28/2022 Abnormal blood chemistry level 01/19/2012 10/28/2022 Syncope 02/28/2011 10/28/2022 Encounter for preventive health examination 11/23/2010 10/28/2022 Encounters Date Type Department Care Team Description 5 Telephone [facility] Cardiology [address] [facility] Advanced Medicine 8th [place] [address] [place] [address] Pebbles Nelson MD 5 1:36 PM CDT - 5 11:59 PM CDT Hospital Encounter [facility] Radiology Center [facility] Advanced Medicine (CAM) [address] [place] [address] Malignant neoplasm of pancreas, unspecified location of malignancy (HCC); Intractable pain Discharge Disposition: Discharge to home or self care 5 Documentation [facility] Oncology [facility] Floor 5 [place] [phone] Breanna Han RN 5 Telephone [facility] Oncology [facility] Floor 5 [place] [address] Breanna Han RN 5 Orders Only [facility] Oncology [address] [place] [address] Floor 5 [place] [address] Ben Chahal MD PhD Malignant neoplasm of pancreas, unspecified location of malignancy (HCC) (Primary Dx); Intractable pain 5 Documentation [facility] Cardiology [address] [facility] [address] [place] [phone] Pebbles Nelson MD 5 Results Follow-Up [facility] Gastroenterology [address] [facility] [address], [address] [place] [phone] Debbie Rolon, CONY MRI/MRCP (abdomen) W WO Contrast 5 Orders Only [facility] Cardiology [address] [facility] Building [address] [place] [address] Pebbles Nelson MD 5 9:27 AM CDT - 5 11:59 PM CDT Hospital Encounter [facility] Radiology 1 [place] [address] Encounter for imaging to screen for metal prior to magnetic resonance imaging (MRI) Discharge Disposition: Discharge to home or self care 5 7:48 AM CDT - 5 11:59 PM CDT Hospital Encounter [facility] Radiology 1 [place] [address] scan, pelvis Discharge Disposition: Discharge to home or self care 5 7:48 AM CDT - 5 11:59 PM CDT Hospital Encounter [facility] Radiology 1 [place] [address] Encounter for imaging to screen for metal prior to magnetic resonance imaging (MRI) Discharge Disposition: Discharge to home or self care 5 Documentation Cardiology Tati Patino NP 5 3:00 PM CDT Office Visit [facility] Oncology [facility] Floor 5 [place] [id number] Ben Chahal MD PhD Pancreatic adenocarcinoma (HCC) (Primary Dx) 5 2:00 PM CDT Clinical Support [facility] Oncology Lab [facility] Floor 5 [place] [address] Pancreatic adenocarcinoma (HCC) 5 1:45 PM CDT Lab [facility] - Lab Collection [address] [facility] Floor 5 [place] [address] Ben Chahal MD PhD Pancreatic adenocarcinoma (HCC) 5 12:38 PM CDT - 5 11:59 PM CDT Hospital Encounter [facility] - [place] [address] [facility] Floor 8 [place] [address] Pancreatic adenocarcinoma (HCC) Discharge Disposition: Discharge to home or self care 5 Orders Only [facility] Oncology [address] [facility] Floor 5 [place] [phone] Ben Chahal MD PhD Pancreatic adenocarcinoma (HCC) (Primary Dx) 5 7:45 PM CDT - 5 3:41 PM CDT Hospital Encounter [facility] [address] [address] [place] [address] Chaz Hernandez MD Heath, MD Zion Gonzalez, MD Tor Chung Adam Daniel, MD Abdominal pain, generalized (Primary Dx); Pigmented skin lesion; Acute on chronic abdominal pain Discharge Disposition: Discharge to home or self care 5 Telephone [facility] Gastroenterology [address] [facility] 12th [place] [address] [place] [address] Afsaneh Whyte LPN Follow-up 5 8:40 AM CDT Office Visit [facility] Endocrinology Metabolism and Lipid [address] [facility] Office Building [address], [address] [place] [phone] Margaret Balderas MD Type 2 diabetes mellitus with other specified complication, without long-term current use of insulin (HCC) (Primary Dx); Type 2 diabetes mellitus with microalbuminuria, with long-term current use of insulin (HCC); Mixed hyperlipidemia; Class 1 obesity due to excess calories with serious comorbidity and body mass index (BMI) of 34.0 to 34.9 in adult 5 Telephone [facility] Cardiology [address] [facility] 8th [place] [address] [place] [address] Gil Baldwin MD 5 Orders Only [facility] Cardiology [address] [facility] Office Building [address] [place] [phone] Pebbles Nelson MD 5 1:13 AM CDT - 5 12:45 PM CDT Hospital Encounter [facility] [address] [address] [place] [address] Mary Lagunas MD Godbold, Tracey Lynn, MD Abdominal pain (Primary Dx); Rectal bleeding; Anal fissure Discharge Disposition: Discharge to home or self care 5 1:14 PM CDT - 5 11:09 AM CDT Hospital Encounter [facility] [address] [address] [place] [address] Katie Jung MD Cras, MD Danni Haile Lalit Chandra, MD Anal fissure (Primary Dx); Abdominal pain, generalized; Type 2 diabetes mellitus with other specified complication, without long-term current use of insulin (HCC); Pancreatic adenocarcinoma (HCC) Discharge Disposition: Discharge to home or self care 5 Telephone [facility] Gastroenterology [facility] 12th [place] [address] [place] [address] Connie Suarez 5 Telephone [facility] Gastroenterology [facility] 12th [place] [address] [place] [address] Afsaneh Whyte LPN 5 Results Follow-Up [facility] Gastroenterology [address] [place] [address] [place] [address] [place] [address] Afsaneh Whyte LPN Surgical pathology 5 10:36 AM CDT Anesthesia Event [facility] Endoscopy [address] [place] [address] Joanne Sosa MD Cohen, Albert M., MD 5 10:30 AM CDT - 5 11:30 AM CDT Surgery [facility] Endoscopy [address] [place] [address] Trang Ryan MD ESOPHAGOGASTRODUODENOSCOPY 5 9:16 AM CDT - 5 12:23 PM CDT Hospital Encounter [facility] Endoscopy [address] [place] [address] Trang Ryan MD Neurofibromatosis, type 1 (HCC); Iron deficiency anemia, unspecified iron deficiency anemia type; Duodenal ulcer; Abdominal wall pain; Chronic diarrhea Discharge Disposition: Discharge to home or self care from Last 3 Months Immunizations Immunization Administration Dates Next Due Influenza, Quadrivalent, Hig h Dose, Preservative Free, Intrr 05/08/2023,08/25/2022,02/27/2021,06/28 Influenza, Quadrivalent, Spl it, Preservative Free, Intramuscular 07/21/2015 Influenza, Split 04/01/2017 Influenza, Trivalent, High D ose, Split, Preservative Free, Intramuscular 07/20/2024 Influenza, Trivalent, Preser vative Free, Intramuscular 06/14/2016 Influenza, Unspecified 04/01/2021 Pneumococcal Conjugate Pcv20 03/16/2022 Sars-CoV-2, Unspecified 10/13/2020 Tdap 02/22/2019 Surgical History Surgery Date Site/Laterality Comments [facility] TONSILLECTOMY PRIMARY/SECONDARY <AGE 12 07/02/1957 - 07[birth year]01/1958 APPENDECTOMY 07/02/2011 - 07/01/2012 PROSTATE SURGERY 07/02/2016 - 07/01/2017 MANDIBLE SURGERY CARDIAC DEFIBRILLATOR PLACEMENT 02/19/2014 Pacemaker/ Defibrillator-Biotroni k STRABISMUS SURGERY CARPAL TUNNEL RELEASE Left IR PICC LINE PLACEMENT > 5 YEARS 06/08/2022 N/A IR PICC LINE PLACEMENT > 5 YEARS 08/18/2022 N/A PORT PLACEMENT CHEST >5 YEARS 09/13/2022 N/A WHIPPLE PROCEDURE W/ LAPAROSCOPY 04/13/2023 KNEE ARTHROSCOPY 10/30/2017 Left arthroscopy knee meniscus SHOULDER SURGERY 07/02/2013 - 07/01/2014 Left Medical History Medical History Date Comments Nephrolithiasis Personal history of healed t raumatic fracture History of fracture of skull Neurofibromatosis, type 1 (HCC) CHF (congestive heart failure) (HCC) Class 2 severe obesity with serious comorbidity in adult (HCC) 02/17/2013 HL (hearing loss) Tinnitus Arthritis Hypertension VICK on CPAP Multiple thyroid nodules Type 2 diabetes mellitus Pancreatic cancer (HCC) Status-p ost radiation, chemotherapy and Whipple surgery BPH (benign prostatic hyperplasia) Marginal ulcer Restless leg Family History Medical History Relation Name Comments Prostate cancer Brother No Known Problems Daughter Diabetes Father Heart disease Father Heart failure Father Stroke Father Alzheimer's disease Mother Breast cancer Mother Kidney cancer Mother Melanoma Niece/Nephew Stage IV Thyroid disease Sister 1 Breast cancer Sister 2 Melanoma Sister 2 Adrenal cancer Sister 3 No Known Problems Son 1 No Known Problems Son 2 Anesthesia problems Neg Hx Celiac disease Neg Hx Diabetes type I Neg Hx Inflammatory bowel disease Neg Hx Relation Name Status Comments Brother Daughter Alive Father Mother Niece/Nephew Sister 1 Alive Sister 2 Alive Sister 3 Son 1 Alive Son 2 Alive Social History Tobacco Use Types Packs/Day Years Used Date Smoking Tobacco: Former Cigarettes Passive Smoke Exposure: Never Smokeless Tobacco: Never Tobacco Cessation:Counseling Given: Not Answered Comments:Occasional smoking in college Alcohol Use Standard Drinks/Week Comments Yes 0 (1 standard drink = 0.6 oz pur e alcohol) Occassional OASIS D0700: Social Isolation Answer Da te Recorded Frequency of experiencing loneliness or isolatio n Never 09/03/2023 OASIS A1250: Transportation Answer Date Recorded Lack of Transportation (Medical) No 09/03/2023 Lack of Transportation (Non-Medical) No 09/03/2023 Patient Unable or Declines to Respond No 09/03/2023 OASIS B1300: Health Literacy Answer Iván e Recorded Frequency of needing help to read materials from doctor or pharmacy Sometimes 09/03/2023 [facility] Utilities Answer Date Recorded In the past 12 months has [facility], oil, or water [employer] threatened to shut off services in your home? No 01/13/2025 Humiliation, Afraid, Rape, and Kick questionnair e Answer Date Recorded Within the last year, have y ou been afraid of your partner or ex-partner? No 09/20/2024 Within the last year, have y ou been humiliated or emotionally abused in other ways by your partner or ex-partner? No Within the last year, have y ou been kicked, hit, slapped, or otherwise physically hurt by your partner or ex-partner? No 09/20/2024 Within the last year, have y ou been raped or forced to have any kind of sexual activity by your partner or ex-partner? No 09/20/2024 Social Connection and Isolation Panel Answer Date Recorded In a typical week, how many times do you talk on the phone with family, friends, or neighbors? More than three times a week 01/13/2025 How often do you get togethe r with friends or relatives? Twice a week 01/13/2025 How often do you attend chur ch or sikhism services? More than 4 times per year 01/13/2025 Do you belong to any clubs o r organizations such as methodist groups, unions, fraternal or athletic groups, or school groups? Yes 01/13/2025 How often do you attend meet ings of the clubs or organizations you belong to? Never 01/13/2025 Are you , , di vorced, , never , or living with a partner? 01/13/2025 AUDIT-C Answer Date Recorded Q1: How often do you have a drink containing alc ohol? 2-4 times a month 01/06/2025 Q2: How many drinks containi ng alcohol do you have on a typical day when you are drinking? 1 or 2 01/06/2025 Q3: How often do you have si x or more drinks on one occasion? Never 01/06/2025 Overall Financial Resource Strain (CARDIA) Answe r Date Recorded How hard is it for you to pa y for the very basics like food, housing, medical care, and heating? Somewhat hard 01/13/2025 PHQ-2 Answer Date Recorded PHQ-2 Total Score 1 09/21/2024 [facility] - Occupational Stress Questionnaire Answer Date Recorded Do you feel stress - tense, restless, nervous, or anxious, or unable to sleep at night because your mind is troubled all the time - these days? Only a little 09/20/2024 Exercise Vital Sign Answer Date Recorde d On average, how many days pe r week do you engage in moderate to strenuous exercise (like a brisk walk)? 0 days 09/20/2024 On average, how many minutes do you engage in exercise at this level? 0 min 09/20/2024 Hunger Vital Sign Answer Date Recorded Within the past 12 months, y ou worried that your food would run out before you got the money to buy more. Sometimes true Within the past 12 months, t he food you bought just didn't last and you didn't have money to get more. Sometimes true PRAPARE - Transportation Answer Date Re corded In the past 12 months, has l ack of transportation kept you from medical appointments or from getting medications? No 12/30 In the past 12 months, has l ack of transportation kept you from meetings, work, or from getting things needed for daily living? No 01/13/2025 Housing Stability Vital Sign Answer Iván e Recorded In the last 12 months, was t here a time when you were not able to pay the mortgage or rent on time? No 11/12/2023 In the last 12 months, how many places have you lived? 1 11/12/2023 In the last 12 months, was t here a time when you did not have a steady place to sleep or slept in a mcfp (including now)? No 11/12/2023 PHQ-9 Answer Date Recorded PHQ-9 Total Score 1 09/21/2024 Housing Stability Vital Sign Answer Iván e Recorded In the last 12 months, was t here a time when you were not able to pay the mortgage or rent on time? No 01/13/2025 In the past 12 months, how m any times have you moved where you were living? 1 01/13/2025 At any time in the past 12 m [facility], were you homeless or living in a mcfp (including now)? No 01/13/2025 Personal Safety Answer Date Recorded Have you ever been in or are you currently in a harmful physical or emotional relationship or is someone making you feel afraid or unsafe? Denies 01/13/2025 Sex and Gender Information Value Date Recorded Sex Assigned at Not on file Legal Sex Male 12:58 AM FERTILIZING MACHINE OPERATOR Gender Identity Male 11/11/2018 10:31 AM CDT Sexual Orientation Straight 06/09/2019 5: 34 PM FERTILIZING MACHINE OPERATOR Obstetrics History Last Filed Vital Signs Vital Sign Reading Time Taken Comments Blood Pressure 117/53 01/21/2025 12:51 PM CDT Pulse 60 01/21/2025 12:55 PM CDT Temperature 36.6 C (97.9 F) 01/19/2025 2:18 PM CDT Respiratory Rate 16 01/19/2025 2:18 PM CDT Oxygen Saturation 98% 01/21/2025 12:55 PM CDT Inhaled Oxygen Concentration - - Weight 96.4 kg (212 lb 9.6 oz) 01/19/2025 2:18 P M CDT Height 175.3 cm (5' 9.02) 01/13/2025 12:06 AM C DT Body Mass Index 31.38 01/13/2025 12:06 AM CDT Plan of Treatment Health Maintenance Due Date Last Done Comments Dilated Eye Exam 1955 Foot Exam 1955 Hepatitis B Screening 1973 Zoster Vaccine (1 of 2) 1974 Well Visit 65+ 2020 Prostate Cancer Screening-PSA 04/16/2022 04/16/2020 Covid-19 Vaccine (2023-2 5 season) 2024 05/21/2021, 10/13/2020, 09/18/2020, Additional history exists Albumin Creatinine Ratio, Urine 02/28/2025 02/29/2024, 07/28/2021, 06/14/2019 Influenza Vaccine (#1) 2025 , 05/08/2023, 08/25/2022, Additional history exists Hemoglobin A1C 05/22/2025 11/19/2024, 08/31, 07/10/2024, Additional history exists Depression Screening 09/20/2025 09/20/2024, 07/20/2023, 06/07/2023, Additional history exists Lipid Panel 11/19/2025 11/19/2024, 01/31, 09/22/2022, Additional history exists Fall Risk Assessment 01/15/2026 01/15/2025, 01/09/20 23 eGFR 01/19/2026 01/19/2025, 12/30, 01/14/2025, Additional history exists DTaP/Tdap/Td Vaccine (2 - Td or Tdap) 02/22/2029 02/22/2019 Colon Cancer Screening-Colonoscopy 11/11/2034 11/11/2024, 07/23/2023 Pneumococcal vaccine 65+ Completed 03/16/2022 Hepatitis C Screening Completed 07/25/2024, 023 Colon Cancer Screening-CT Colonography Discontinued 11/11/2024, 07/23/2023 Colon Cancer Screening-DNA Stool Discontinued 11/12/19, 07/23/2023 Colon Cancer Screening-FIT Discontinued 11/11/2024, Colon Cancer Screening-Sigmoidoscopy Discontinued 11/11/2024, 07/23/2023 Abdominal Aortic Aneurysm (A AA) Screen Completed 01/12/2025, 12/09/2024, 11/19/2024, Additional history exists Medical Devices Implanted Type Area Credit Collections Analyst Device Identifier Shelf Expiration Date Model / Serial / Lot Biotronik Inc Implant Cardiac Defibrillator Dual Chamber Dr Chaparro Mri Compatible Ilivia Huy [id number] - [id number] - [id number] Implanted:Qty: 1 on 10/10/2023 by Pebbles Nelson MD at [facility] ICD Left: Chest Wall [employer]ot[employer]ik Inc [id number] 08/01/2025 [id number] / [id number] / Medtronic Bladder Lead [id number] Lead Pelvis Medtronic [id number] 8 / [id number] / Lead (Ra)-Setrox S S 53 Implanted:2013 by Pebbles Nelson MD (Quantity not on file) Lead Heart Biotronik [id number] SETROX S S 53 / [id number] / Lead (Rv)-Linox Smart Sd 65/18 Implanted:2013 by Pebbles Nelson MD (Quantity not on file) Lead Heart Biotronik 359 067 LINOX SMART SD 65 / [id number] / Medtronic Inc Tyrx Absorbable Antibacterial Envelope-Large 3.3x2.9in [id number] - [id number] - [id number] Implanted:Qty: 1 on 10/10/2023 by Pebbles Nelson MD at [facility] Other - see comments Left: Chest Wall Medtronic Inc 07/03/2024 [id number] / [id number] / [id number] Description:Antibacterial en velope [employer]med Lei Viabil 8mm X 6cm Longwire [id number] - [id number] - [id number] Implanted:Qty: 1 on 12/15/2022 by Fede Das MD at [facility] Stent N/A: Bile Duct Conmed Lei 12/11/2024 [id number] / [id number] / [employer] Lei 8.5 Fr Nasal Biliary Catheter [id number] - [id number] Implanted:Qty: 1 on 04/25/2023 by Zuri Mera MD at [facility] Tube N/A: Jejunum [employer] Lei 04/02/2025 [id number] / / [id number] Medtronic Interstim Bladder Stimulator 3058-03/26/2020 Implanted:2019 (Quantity not on file) Pelvis Medtronic [id number] / [id number] / Description:MRI compatable Use pt remote (menu MRI active) [employer] Lei Wallflex 8mm 8fr 60mm Rapid Exchange Delivery System Stent [id number] - [id number] Implanted:Qty: 1 on 09/08/2022 by Fede Das MD at [facility] N/A: Bile Duct [employer] Lei 03/21/2024 [id number] / / [id number] Angio Dynamics Xcela Power Port 8fr [id number] - [id number] Implanted:Qty: 1 on 09/13/2022 at [facility] Angio Dynamics 04/19/2027 [id number] / / [id number] [employer] Supple [employer] [place] Processing 8x6cm Patch Cardiovascular [id number] - [id number] - [id number] Implanted:Qty: 1 on 04/11/2023 by Adrian Martinez MD at [facility] N/A: Superior Mesenteric Vein [facility] [facility] [id number] 06/09/2027 [id number] / [id number] / [employer] 8.5 Fr Nasal Biliary Catheter [id number] - [id number] Implanted:Qty: 1 on 05/01/2023 by Fede Das MD at [facility] Left: Nose [employer] 12/18/2025 [id number] / / [id number] Explanted Type Area Credit Collections Analyst Device Identifier Shelf Expiration Date Model / Serial / Lot Icd-Iforia 7 Dr-T Implanted:Qty: 1 on 02/19/2014 by Pebbles Nelson MD Explanted:Qty: 1 on 10/10/2023 ICD Chest Biotronik [id number] [employer] [place] / [id number] / [employer] 10fr 5cm Biliary Stent [id number] - [id number] Implanted:Qty: 1 on 08/22/2022 by Fede Das MD at [facility] Explanted:Qty: 1 on 09/08/2022 by Fede Das MD at [facility] N/A: Bile Duct [employer] 01/27/2023 [id number] / / [id number] Procedures Procedure Name Priority Date/Time Associated Diagnosis Comments CTA ABDOMEN Schedule RITESH, Read Routine (Patient lives out of area) 02/05/2025 2:29 PM CDT Malignant neoplasm of pancreas, unspecified location of malignancy (HCC) Intractable pain DEVICE CHECK - REMOTE Routine 01/22/2025 4:09 AM CDT MRI ABDOMEN MRCP W WO CONTRAST Schedule Routine, Read Routine (OP Routine) 01/21/2025 1:[address] scan, pelvis XR PELVIS 1 OR 2 VIEWS Schedule Routine, Read Routine (OP Routine) 01/21/2025 9:53 AM CDT Encounter for imaging to screen for metal prior to magnetic resonance imaging (MRI) XR CHEST PA LATERAL 2 VIEWS Schedule Routine, Read Routine (OP Routine) 01/21/2025 9:23 AM CDT Encounter for imaging to screen for metal prior to magnetic resonance imaging (MRI) IRON PROFILE W/ IBC STAT 01/19/2025 1:32 PM CDT Pancreatic adenocarcinoma (HCC) FERRITIN STAT 01/19/2025 1:32 PM CDT Pancreatic adenocarcinoma (HCC) EGFR STAT 01/19/2025 1:32 PM CDT Pancreatic adenocarcinoma (HCC) DIFFERENTIAL AUTO Routine 01/19/2025 1:32 PM CDT Pancreatic adenocarcinoma (HCC) CBC WITH AUTO DIFFERENTIAL Routine 01/19 1:32 PM CDT Pancreatic adenocarcinoma (HCC) COMPREHENSIVE METABOLIC PANEL STAT 1:32 PM CDT Pancreatic adenocarcinoma (HCC) CANCER ANTIGEN 19-9 Routine 01/19/2025 1:32 PM CDT Pancreatic adenocarcinoma (HCC) CT CHEST WO CONTRAST Schedule Routine, Read Routine (OP Routine) 01/19/2025 1:12 PM CDT Pancreatic adenocarcinoma (HCC) XR CHEST 1 VIEW IP Routine 01/15/2025 12:51 PM CDT POCT GLUCOSE DEVICE Routine 01/15/2025 12:30 PM CDT POCT GLUCOSE DEVICE Routine 01/15/2025 11:49 AM CDT POCT GLUCOSE DEVICE Routine 01/15/2025 8:14 AM CDT EGFR Routine 01/15/2025 6:07 AM CDT DIFFERENTIAL AUTO Routine 01/15/2025 6:07 AM CDT CBC WITH AUTO DIFFERENTIAL Routine 01/15 6:07 AM CDT BASIC METABOLIC PANEL Routine 01/15/2025 6:07 AM CDT POCT GLUCOSE DEVICE Routine 01/14/2025 9:51 PM CDT POCT GLUCOSE DEVICE Routine 01/14/2025 5:03 PM CDT INFECTION PREVENTION FOREIGN AURIS PCR, SURVEILLANCE Routine 01/14/2025 12:16 PM CDT POCT GLUCOSE DEVICE Routine 01/14/2025 11:26 AM CDT POCT GLUCOSE DEVICE Routine 01/14/2025 7:55 AM CDT EGFR Routine 01/14/2025 5:41 AM CDT DIFFERENTIAL AUTO Routine 01/14/2025 5:41 AM CDT BASIC METABOLIC PANEL Routine 01/14/2025 5:41 AM CDT CBC WITH AUTO DIFFERENTIAL Routine 01/14 5:41 AM CDT POCT GLUCOSE DEVICE Routine 01/13/2025 9:19 PM CDT POCT GLUCOSE DEVICE Routine 01/13/2025 5:27 PM CDT POCT GLUCOSE DEVICE Routine 01/13/2025 12:13 PM CDT POCT GLUCOSE DEVICE Routine 01/13/2025 8:05 AM CDT POCT GLUCOSE DEVICE Routine 01/13/2025 2:[address] ABDOMEN PELVIS W CONTRAST ED 10:28 PM CDT POCT GLUCOSE DEVICE Routine 01/12/2025 8:00 PM CDT URINALYSIS AND REFLEX TO MICROSCOPIC AND CULTURE STAT 01/12/2025 7:56 PM CDT EGFR STAT 01/12/2025 4:53 PM CDT DIFFERENTIAL AUTO STAT 01/12/2025 4:53 PM CDT LIPASE STAT 01/12/2025 4:53 PM CDT COMPREHENSIVE METABOLIC PANEL STAT 4:53 PM CDT CBC WITH AUTO DIFFERENTIAL STAT 01/12 4:53 PM CDT POCT GLUCOSE Routine 01/06/2025 8:52 AM CDT Type 2 diabetes mellitus with other specified complication, without long-term current use of insulin (HCC) DEVICE CHECK - REMOTE Routine 12/14/2024 2:58 AM CDT POCT GLUCOSE DEVICE Routine 12/10/2024 8:15 AM CDT EGFR Routine 12/10/2024 5:11 AM CDT CBC WITHOUT DIFFERENTIAL Routine 025 5:11 AM CDT BASIC METABOLIC PANEL Routine 12/10/2024 5:11 AM CDT POCT GLUCOSE DEVICE Routine 12/09/2024 8:11 PM CDT URINALYSIS AND REFLEX TO MICROSCOPIC AND CULTURE Routine 12/09/2024 6:52 PM CDT POCT GLUCOSE DEVICE Routine 12/09/2024 4:40 PM CDT POCT GLUCOSE DEVICE Routine 12/09/2024 11:29 AM CDT HEMOGLOBIN AND HEMATOCRIT Routine 2024 11:24 AM CDT POCT GLUCOSE DEVICE Routine 12/09/2024 9:09 AM CDT POCT GLUCOSE DEVICE Routine 12/09/2024 6:16 AM CDT LACTATE STAT 12/09/2024 6:01 AM CDT EGFR STAT 12/09/2024 5:38 AM CDT DIFFERENTIAL AUTO STAT 12/09/2024 5:38 AM CDT COMPREHENSIVE METABOLIC PANEL STAT 5:38 AM CDT CBC WITH AUTO DIFFERENTIAL STAT 12/09 5:38 AM CDT POCT GLUCOSE DEVICE Routine 12/09/2024 4:54 AM CDT POCT GLUCOSE DEVICE Routine 12/09/2024 4:[address] ABDOMEN PELVIS W WO CONTRAST ED 12/09/2024 3:04 AM CDT POCT GLUCOSE DEVICE Routine 12/09/2024 2:41 AM CDT EGFR STAT 12/08/2024 11:02 PM CDT DIFFERENTIAL AUTO STAT 12/08/2024 11:02 PM CDT TYPE AND SCREEN STAT 12/08/2024 11:02 PM CDT CBC WITH AUTO DIFFERENTIAL STAT 12/08 11:02 PM CDT BASIC METABOLIC PANEL STAT 12/08/2024 11:02 PM CDT POCT GLUCOSE DEVICE Routine 12/08/2024 11:01 PM CDT POCT GLUCOSE DEVICE Routine 11/24/2024 7:48 AM CDT EGFR Routine 11/24/2024 4:17 AM CDT DIFFERENTIAL AUTO Routine 11/24/2024 4:17 AM CDT COMPREHENSIVE METABOLIC PANEL Routine 4:17 AM CDT CBC WITH AUTO DIFFERENTIAL Routine 11/24 4:17 AM CDT POCT GLUCOSE DEVICE Routine 11/23/2024 9:13 PM CDT POCT GLUCOSE DEVICE Routine 11/23/2024 4:27 PM CDT POCT GLUCOSE DEVICE Routine 11/23/2024 12:07 PM CDT POCT GLUCOSE DEVICE Routine 11/23/2024 7:37 AM CDT EGFR Routine 11/23/2024 4:01 AM CDT DIFFERENTIAL AUTO Routine 11/23/2024 4:01 AM CDT COMPREHENSIVE METABOLIC PANEL Routine 4:01 AM CDT CBC WITH AUTO DIFFERENTIAL Routine 11/23 4:01 AM CDT RESPIRATORY PATHOGEN PANEL Routine 11/22 11:01 PM CDT POCT GLUCOSE DEVICE Routine 11/22/2024 8:35 PM CDT POCT GLUCOSE DEVICE Routine 11/22/2024 4:25 PM CDT POCT GLUCOSE DEVICE Routine 11/22/2024 1:08 PM CDT ECG 12-LEAD Routine 11/22/2024 10:08 AM CDT POCT GLUCOSE DEVICE Routine 11/22/2024 8:54 AM CDT POCT GLUCOSE DEVICE Routine 11/22/2024 4:24 AM CDT EGFR Routine 11/22/2024 4:21 AM CDT DIFFERENTIAL AUTO Routine 11/22/2024 4:21 AM CDT COMPREHENSIVE METABOLIC PANEL Routine 4:21 AM CDT CBC WITH AUTO DIFFERENTIAL Routine 11/22 4:21 AM CDT POCT GLUCOSE DEVICE Routine 11/22/2024 12:27 AM CDT POCT GLUCOSE DEVICE Routine 11/21/2024 9:23 PM CDT POCT GLUCOSE DEVICE Routine 11/21/2024 4:32 PM CDT POCT GLUCOSE DEVICE Routine 11/21/2024 12:21 PM CDT XR ABDOMEN AP 1 VIEW IP Routine 11/21/2024 12:07 PM CDT POCT GLUCOSE DEVICE Routine 11/21/2024 8:13 AM CDT POCT GLUCOSE DEVICE Routine 11/21/2024 4:45 AM CDT EGFR Routine 11/21/2024 2:54 AM CDT DIFFERENTIAL AUTO Routine 11/21/2024 2:54 AM CDT COMPREHENSIVE METABOLIC PANEL Routine 2:54 AM CDT CBC WITH AUTO DIFFERENTIAL Routine 11/21 2:54 AM CDT POCT GLUCOSE DEVICE Routine 11/20/2024 11:49 PM CDT POCT GLUCOSE DEVICE Routine 11/20/2024 8:31 PM CDT POCT GLUCOSE DEVICE Routine 11/20/2024 3:59 PM CDT POCT GLUCOSE DEVICE Routine 11/20/2024 12:33 PM CDT POCT GLUCOSE DEVICE Routine 11/20/2024 9:00 AM CDT POCT GLUCOSE DEVICE Routine 11/20/2024 7:01 AM CDT DIFFERENTIAL AUTO Timed 11/20/2024 6:03 AM CDT APTT Timed 11/20/2024 6:03 AM CDT PROTIME-INR Timed 11/20/2024 6:03 AM CDT CBC WITH AUTO DIFFERENTIAL Timed 11/20 6:03 AM CDT POCT GLUCOSE DEVICE Routine 11/20/2024 4:04 AM CDT POCT GLUCOSE DEVICE Routine 11/19/2024 11:17 PM CDT POCT GLUCOSE DEVICE Routine 11/19/2024 8:28 PM CDT URINALYSIS AND REFLEX TO MICROSCOPIC AND CULTURE STAT 11/19/2024 6:57 PM CDT LACTATE STAT 11/19/2024 3:[address] ABDOMEN PELVIS W CONTRAST ED Urgent/I P Urgent 11/19/2024 1:51 PM CDT LIPID PANEL STAT 11/19/2024 1:05 PM CDT TSH STAT 11/19/2024 1:05 PM CDT HEMOGLOBIN A1C STAT 11/19/2024 1:05 PM CDT EGFR STAT 11/19/2024 1:05 PM CDT DIFFERENTIAL AUTO STAT 11/19/2024 1:05 PM CDT LIPASE STAT 11/19/2024 1:05 PM CDT COMPREHENSIVE METABOLIC PANEL STAT 1:05 PM CDT CBC WITH AUTO DIFFERENTIAL STAT 11/19 1:05 PM CDT POCT GLUCOSE DEVICE Routine 11/11/2024 11:42 AM CDT SURGICAL PATHOLOGY Routine 11/11/2024 11:08 AM CDT Neurofibromatosis , type 1 (HCC) Iron deficiency anemia, unspecified iron deficiency anemia type Duodenal ulcer Abdominal wall pain Chronic diarrhea COLONOSCOPY 11/11/2024 11:01 AM CDT EGD 11/11/2024 10:45 AM CDT COLON BIOPSY 11/11/2024 10:39 AM CDT Neurofibromatosis , type 1 (HCC) Iron deficiency anemia, unspecified iron deficiency anemia type Duodenal ulcer Abdominal wall pain Chronic diarrhea ESOPHAGOGASTRODUODENOSCOPY 11/11 10:39 AM CDT Neurofibromatosis , type 1 (HCC) Iron deficiency anemia, unspecified iron deficiency anemia type Duodenal ulcer Abdominal wall pain Chronic diarrhea POCT GLUCOSE DEVICE Routine 11/11/2024 10:18 AM CDT HEPATITIS PANEL, ACUTE Routine 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 Stable soft tissue thickening around the beaded celiac and superior mesenteric artery, with mild stenosis of the celiac and moderate stenosis of the superior mesenteric artery likely sequela of prior radiation/treatment. 2. Thickening at the gastrojejunal anastomosis with surrounding fat stranding/thickening, could represent a marginal ulcer. Recommend correlation with clinical symptoms and consider endoscopy. Dictated by: Emili Lewis MD The radiology attending physician has personally reviewed this study, and had reviewed and/or edited this written report and agrees with it. Electronically signed by: Kolton Dale M.D. Narrative 02/05/2025 4:10 PM CDT EXAMINATION: CT ANGIOGRAPHY OF THE ABDOMEN WITH AND WITHOUT CONTRAST HISTORY: Pancreatic cancer status post Whipple procedure in 2022, with concern for stenosis/occlusion of the celiac origin on prior MRI. TECHNIQUE: CT angiography of the abdomen was performed prior to and following the uneventful intravenous administration of 93 ml Optiray-350 using the abdomen and pelvis angiography protocol. Vascular 3D images were generated on a dedicated workstation and also interpreted. COMPARISON: MRI from 01/21/2025, CT from 01/12/2025, 12/09/2024 FINDINGS: VASCULAR FINDINGS: * Celiac axis: Beading of the celiac artery proximally. Mild stenosis at the origin with surrounding soft tissue thickening. * Superior mesenteric artery: Beading of the proximal superior mesenteric artery. Replaced right hepatic artery from the superior mesenteric artery. Mild to moderate stenosis at the origin with surrounding soft tissue. * Inferior mesenteric artery: Mild stenosis at the origin. * Right renal arteries: 2 right renal arteries without significant stenosis. * Left renal artery: 2 left renal artery without stenosis. * Abdominal aorta: Mild stenosis without aneurysm. NONVASCULAR FINDINGS: Lung bases are normal. Pacer leads terminate in the right atrium and right ventricle. Moderately enlarged heart size. No pericardial effusion. Diffuse pneumobilia, slightly increased from 01/12/2025. No arterially enhancing liver lesion Hypoattenuating lesion within the spleen, unchanged, likely hemangioma. Changes of Whipple procedure with atrophy of the remnant pancreas. Soft tissue thickening surrounding the celiac and superior mesenteric artery is unchanged from prior. Mild pancreatic duct dilation, up to 7 mm. There is thickening just distal to the gastrojejunal anastomosis, best seen on series 4 image 144, which could represent a marginal ulcer. Unchanged left adrenal nodule measuring 1.6 cm, likely lipid poor adenoma. Right adrenal gland is normal. Bilateral nephrolithiasis up to 7 mm on the left, nonobstructing. Small hyperdense lesion at the left kidney represents a cyst when correlated with prior MRI. No hydronephrosis. No bowel thickening or obstruction. No abdominal lymphadenopathy. Mild mesenteric and subcutaneous edema. Sacral nerve stimulator, partially imaged. No suspicious osseous lesion. Procedure Note Kolton Dale MD - 02/05/2025 EXAMINATION: CT ANGIOGRAPHY OF THE ABDOMEN WITH AND WITHOUT CONTRAST HISTORY: Pancreatic cancer status post Whipple procedure in 2022, with concern for stenosis/occlusion of the celiac origin on prior MRI. TECHNIQUE: CT angiography of the abdomen was performed prior to and following the uneventful intravenous administration of 93 ml Optiray-350 using the abdomen and pelvis angiography protocol. Vascular 3D images were generated on a dedicated workstation and also interpreted. COMPARISON: MRI from 01/21/2025, CT from 01/12/2025, 12/09/2024 FINDINGS: VASCULAR FINDINGS: * Celiac axis: Beading of the celiac artery proximally. Mild stenosis at the origin with surrounding soft tissue thickening. * Superior mesenteric artery: Beading of the proximal superior mesenteric artery. Replaced right hepatic artery from the superior mesenteric artery. Mild to moderate stenosis at the origin with surrounding soft tissue. * Inferior mesenteric artery: Mild stenosis at the origin. * Right renal arteries: 2 right renal arteries without significant stenosis. * Left renal artery: 2 left renal artery without stenosis. * Abdominal aorta: Mild stenosis without aneurysm. NONVASCULAR FINDINGS: Lung bases are normal. Pacer leads terminate in the right atrium and right ventricle. Moderately enlarged heart size. No pericardial effusion. Diffuse pneumobilia, slightly increased from 01/12/2025. No arterially enhancing liver lesion Hypoattenuating lesion within the spleen, unchanged, likely hemangioma. Changes of Whipple procedure with atrophy of the remnant pancreas. Soft tissue thickening surrounding the celiac and superior mesenteric artery is unchanged from prior. Mild pancreatic duct dilation, up to 7 mm. There is thickening just distal to the gastrojejunal anastomosis, best seen on series 4 image 144, which could represent a marginal ulcer. Unchanged left adrenal nodule measuring 1.6 cm, likely lipid poor adenoma. Right adrenal gland is normal. Bilateral nephrolithiasis up to 7 mm on the left, nonobstructing. Small hyperdense lesion at the left kidney represents a cyst when correlated with prior MRI. No hydronephrosis. No bowel thickening or obstruction. No abdominal lymphadenopathy. Mild mesenteric and subcutaneous edema. Sacral nerve stimulator, partially imaged. No suspicious osseous lesion. IMPRESSION: 1. Stable soft tissue thickening around the beaded celiac and superior mesenteric artery, with mild stenosis of the celiac and moderate stenosis of the superior mesenteric artery likely sequela of prior radiation/treatment. 2. Thickening at the gastrojejunal anastomosis with surrounding fat stranding/thickening, could represent a marginal ulcer. Recommend correlation with clinical symptoms and consider endoscopy. Dictated by: Emili Lewis MD The radiology attending physician has personally reviewed this study, and had reviewed and/or edited this written report and agrees with it. Electronically signed by: Kolton Dale M.D. us Ben Chahal MD PhD IMG CT PROCEDURES Final Result * DEVICE CHECK - REMOTE (01/22/2025 4:09 AM CDT) Anatomical Region Laterality Modality Other 01/22/2025 4:09 AM CDT Narrative 01/28/2025 2:32 PM CDT Interpretation Summary: Battery and Leads (BL) Normal parameters noted on battery and lead(s) --- HUNG Presenting Rhythm (VA) Atrial Pacing-Ventricular Sensing (AP-VS) --- rate 60 Arrhythmic events (AE) No new arrhythmic events in monitoring period Transmission Information (TI) Device Summary Report Provider Only Interpretation (PI) Provider has reviewed and agrees with findings Procedure Note Pebbles Nelson MD - 01/28/2025 Interpretation Summary: Battery and Leads (BL) Normal parameters noted on battery and lead(s) --- HUNG Presenting Rhythm (VA) Atrial Pacing-Ventricular Sensing (AP-VS) --- rate 60 Arrhythmic events (AE) No new arrhythmic events in monitoring period Transmission Information (TI) Device Summary Report Provider Only Interpretation (PI) Provider has reviewed and agrees with findings us Pebbles Nelson MD [facility] PROCEDURES Final Result * MRI/MRCP (abdomen) W WO Contrast (01/21/2025 1:01 PM CDT) Anatomical Region Laterality Modality Body N/A Magnetic Resonan ce 01/21/2025 3:11 PM CDT Impressions 01/22/2025 4:53 PM CDT 1. Stable ill-defined soft tissue about the celiac trunk and superior mesenteric artery site Whipple procedure. Stable severe narrowing of the portosplenic confluence. This soft tissue encases the celiac artery. Of note, the celiac axis demonstrates enhancement/opacification on the arterial phase with relative hypoenhancement on more delayed phases. This constellation of findings may relate to severe stenosis or partial thrombosis. Consider attention on follow-up examinations versus dedicated imaging with CTA or Doppler. 2. New linear/bandlike areas of hyperenhancement in the posterior inferior right hepatic lobe. These are favored to be perfusional. Recommend attention on follow-up examinations. 3. Otherwise stable postsurgical changes from Whipple procedure. Dictated by: Elsa Hernandez M.D. The radiology attending physician has personally reviewed this study, and had reviewed and/or edited this written report and agrees with it. Electronically signed by: Benito Whiteside M.D. Narrative 01/22/2025 4:53 PM CDT EXAMINATION: 1. MAGNETIC RESONANCE IMAGING OF THE ABDOMEN WITH AND WITHOUT CONTRAST 2. THREE DIMENSIONAL RECONSTRUCTION OF THE BILIARY TREE AND PANCREATIC DUCT HISTORY: Pancreatic cancer status post Whipple on 04/11/2023. Evaluate soft tissue thickening about the celiac trunk and superior mesenteric artery seen on prior imaging. TECHNIQUE: Magnetic resonance imaging of the abdomen was performed prior to and following the uneventful administration of intravenous contrast. The raw data was processed on the scanner by the technologist for 3 dimensional reconstructions of the intrahepatic ducts, extrahepatics ducts, and pancreatic duct. Protocol: Liver MRCP Contrast: Eovist (gadoxetate) 18 mL COMPARISON: Multiple CTs with most recent dated 01/13/2025; MRCP 08/05/2024 FINDINGS: Liver: Noncirrhotic liver morphology. No significant hepatic steatosis or iron deposition. - Bile ducts: Similar volume of pneumobilia, relating to prior Whipple procedure. No significant biliary ductal dilation. - Focal liver lesions: No focal suspicious hepatic lesion. New linear/bandlike areas of arterial hyperenhancement in the posterior and inferior right hepatic lobe are without corresponding signal abnormality on other images. These are favored to be perfusional. - Vasculature: Hepatic and portal veins are patent. Similar appearing severe stenosis at the portosplenic confluence. Gallbladder: Surgically absent. Pancreas: Post surgical changes from Whipple procedure with mild atrophy of the residual pancreas. Spleen: Normal in caliber. Stable 2.7 cm T2 hyperintense lesion along the hilar margin of the spleen redemonstrates delayed central filling, likely a hemangioma (series 10, image 44). Adrenals: 1.6 cm left adrenal nodule is not significantly changed since 2013 without significant signal dropout on the out of phase images. This is favored to represent a lipid poor adenoma. Right adrenal gland is unremarkable. Kidneys: Simple appearing 1.3 cm interpolar renal cyst Symmetric renal enhancement. No hydronephrosis. Other Findings: Ill-defined spiculated soft tissue is again seen encasing the celiac trunk and extending along the superior mesenteric artery to the pancreatic anastomosis. This is not significantly changed dating back to CT from 07/20/2023. This soft tissue demonstrates delayed contrast enhancement and is without diffusion restriction (series 36, image 36) (series 11, image [id number]). The celiac artery, splenic artery, and common hepatic artery opacify on the arterial phase but demonstrate hypoenhancement on more delayed phases. This constellation of findings may relate to severe stenosis or partial thrombosis. Susceptibility artifact from dual-lumen pacemaker in the chest as well as susceptibility artifact from neurostimulator in the right flank. Small fat-containing umbilical hernia. No dilated loops of large or small bowel. Atherosclerotic calcifications in the aortobiiliac vessels without present. No suspicious osseous lesion. Procedure Note Benito Whiteside MD - 01/22/2025 EXAMINATION: 1. MAGNETIC RESONANCE IMAGING OF THE ABDOMEN WITH AND WITHOUT CONTRAST 2. THREE DIMENSIONAL RECONSTRUCTION OF THE BILIARY TREE AND PANCREATIC DUCT HISTORY: Pancreatic cancer status post Whipple on 04/11/2023. Evaluate soft tissue thickening about the celiac trunk and superior mesenteric artery seen on prior imaging. TECHNIQUE: Magnetic resonance imaging of the abdomen was performed prior to and following the uneventful administration of intravenous contrast. The raw data was processed on the scanner by the technologist for 3 dimensional reconstructions of the intrahepatic ducts, extrahepatics ducts, and pancreatic duct. Protocol: Liver MRCP Contrast: Eovist (gadoxetate) 18 mL COMPARISON: Multiple CTs with most recent dated 01/13/2025; MRCP 08/05/2024 FINDINGS: Liver: Noncirrhotic liver morphology. No significant hepatic steatosis or iron deposition. - Bile ducts: Similar volume of pneumobilia, relating to prior Whipple procedure. No significant biliary ductal dilation. - Focal liver lesions: No focal suspicious hepatic lesion. New linear/bandlike areas of arterial hyperenhancement in the posterior and inferior right hepatic lobe are without corresponding signal abnormality on other images. These are favored to be perfusional. - Vasculature: Hepatic and portal veins are patent. Similar appearing severe stenosis at the portosplenic confluence. Gallbladder: Surgically absent. Pancreas: Post surgical changes from Whipple procedure with mild atrophy of the residual pancreas. Spleen: Normal in caliber. Stable 2.7 cm T2 hyperintense lesion along the hilar margin of the spleen redemonstrates delayed central filling, likely a hemangioma (series 10, image 44). Adrenals: 1.6 cm left adrenal nodule is not significantly changed since 2013 without significant signal dropout on the out of phase images. This is favored to represent a lipid poor adenoma. Right adrenal gland is unremarkable. Kidneys: Simple appearing 1.3 cm interpolar renal cyst Symmetric renal enhancement. No hydronephrosis. Other Findings: Ill-defined spiculated soft tissue is again seen encasing the celiac trunk and extending along the superior mesenteric artery to the pancreatic anastomosis. This is not significantly changed dating back to CT from 07/20/2023. This soft tissue demonstrates delayed contrast enhancement and is without diffusion restriction (series 36, image 36) (series 11, image [id number]). The celiac artery, splenic artery, and common hepatic artery opacify on the arterial phase but demonstrate hypoenhancement on more delayed phases. This constellation of findings may relate to severe stenosis or partial thrombosis. Susceptibility artifact from dual-lumen pacemaker in the chest as well as susceptibility artifact from neurostimulator in the right flank. Small fat-containing umbilical hernia. No dilated loops of large or small bowel. Atherosclerotic calcifications in the aortobiiliac vessels without present. No suspicious osseous lesion. IMPRESSION: 1. Stable ill-defined soft tissue about the celiac trunk and superior mesenteric artery site Whipple procedure. Stable severe narrowing of the portosplenic confluence. This soft tissue encases the celiac artery. Of note, the celiac axis demonstrates enhancement/opacification on the arterial phase with relative hypoenhancement on more delayed phases. This constellation of findings may relate to severe stenosis or partial thrombosis. Consider attention on follow-up examinations versus dedicated imaging with CTA or Doppler. 2. New linear/bandlike areas of hyperenhancement in the posterior inferior right hepatic lobe. These are favored to be perfusional. Recommend attention on follow-up examinations. 3. Otherwise stable postsurgical changes from Whipple procedure. Dictated by: Elsa Hernandez M.D. The radiology attending physician has personally reviewed this study, and had reviewed and/or edited this written report and agrees with it. Electronically signed by: Benito Whiteside M.D. Marcos Ray MD IM MRI PROCEDURES Final R esult * XR Pelvis 1 or 2 Views (01/21/2025 9:53 AM CDT) Anatomical Region Laterality Modality Body, Pelvis N/A Computed Radiogr aphy 01/21/2025 12:0 5 PM CDT Impressions 01/21/2025 12:05 PM CDT 1. Sacral stimulator device with single intact lead. 2. Mild bilateral hip osteoarthritis. The radiology attending physician has personally reviewed this study, and had reviewed and/or edited this written report and agrees with it. Electronically signed by: Richard Soriano M.D. Narrative 01/21/2025 12:05 PM CDT EXAMINATION: XR PELVIS 1 OR 2 VIEWS HISTORY: MRI clearance, sacral neurostimulator. FINDINGS: 1 radiograph of the pelvis is submitted for interpretation with comparison made to CT 01/12/2025. There is a sacral neurostimulator in place with a single intact lead. No abandoned leads. Grade 1 anterolisthesis of L5 on S1. The lumbar vertebral body heights are maintained. Multilevel degenerative disc disease of the lumbar spine, up to moderate at L5-S1. No acute fracture of the pelvis on this single view examination. Mild bilateral hip osteoarthritis. Atherosclerosis of the abdominal aorta. There are surgical clips projecting over the abdomen. Procedure Note Richard Soriano MD - 01/21/2025 EXAMINATION: XR PELVIS 1 OR 2 VIEWS HISTORY: MRI clearance, sacral neurostimulator. FINDINGS: 1 radiograph of the pelvis is submitted for interpretation with comparison made to CT 01/12/2025. There is a sacral neurostimulator in place with a single intact lead. No abandoned leads. Grade 1 anterolisthesis of L5 on S1. The lumbar vertebral body heights are maintained. Multilevel degenerative disc disease of the lumbar spine, up to moderate at L5-S1. No acute fracture of the pelvis on this single view examination. Mild bilateral hip osteoarthritis. Atherosclerosis of the abdominal aorta. There are surgical clips projecting over the abdomen. IMPRESSION: 1. Sacral stimulator device with single intact lead. 2. Mild bilateral hip osteoarthritis. The radiology attending physician has personally reviewed this study, and had reviewed and/or edited this written report and agrees with it. Electronically signed by: Richard Soriano M.D. us Nick Danis Sorensen MD IMG XR PROCEDURES Tete l Result * XR Chest PA Lateral 2 Views (01/21/2025 9:23 AM CDT) Anatomical Region Laterality Modality Body, Chest N/A Computed Radiogr aphy 01/21/2025 9:33 AM CDT Impressions 01/21/2025 10:19 AM CDT The current study is compared with the prior radiograph dated 01/15/2025. Right internal jugular approach port catheter tip overlies the cavoatrial junction. 2-lead pacer defibrillator device, leads overlie the right atrium and right ventricle. Stable mild cardiomegaly. Lungs are clear, no pleural effusion, no pneumothorax. Dictated by: Hallie Bose M.D. The radiology attending physician has personally reviewed this study, and had reviewed and/or edited this written report and agrees with it. Electronically signed by: Papito Landers M.D. Narrative 01/21/2025 10:19 AM CDT EXAMINATION: 2 view chest radiograph Procedure Note Papito Landers MD - 01/21/2025 EXAMINATION: 2 view chest radiograph IMPRESSION: The current study is compared with the prior radiograph dated 01/15/2025. Right internal jugular approach port catheter tip overlies the cavoatrial junction. 2-lead pacer defibrillator device, leads overlie the right atrium and right ventricle. Stable mild cardiomegaly. Lungs are clear, no pleural effusion, no pneumothorax. Dictated by: Hallie Bose M.D. The radiology attending physician has personally reviewed this study, and had reviewed and/or edited this written report and agrees with it. Electronically signed by: Papito Landers M.D. us Seng Fischer MD IMG XR PROCEDURES Final R esult * eGFR (01/19/2025 1:32 PM CDT) Pathologist [facility] eGFR 90 >=60 mL/min/1. 73 m2 Comment: Interpretive Data Reference Interval Normal >/= 90 mL/min/1.73m2 Mildly decreased* 60 - 89 mL/min/1.73m2 Mildly to moderately decreased 45 - 59 mL/min/1.73m2 Moderately to severely decreased 30 - 44 mL/min/1.73m2 Severely decreased 15 - 29 mL/min/1.73m2 Kidney Failure < 15 mL/min/1.73m2 *Relative to young adult level Estimated glomerular filtration rate is determined by the 2020 CKD-EPI equation recommended by the National Kidney Foundation (A Unifying Approach to GFR Estimation: Recommendations of the NKF-ASK Task Force on Reassessing the Inclusion of Race in Diagnosing Kidney Disease, JASN 202). The CKD-EPI equation should not be used for patients with unstable renal function and has not been validated in children and those over 70. Current interpretive data was last reviewed 2021. Blood 01/19/2025 1:32 PM CDT 01/19/2025 1:42 PM CDT us Tiffany WAYNE LAB BLOOD ORDERABLES Final Result [facility] Department [place] [address] * (ABNORMAL) Differential, auto (01/19/2025 1:32 PM CDT) [facility] Neutrophil abs 5.13 1.50 - 6.50 K/cumm Comment:Testing performed by : [facility], [address] [place], [place] [id number] Lymphocyte abs 0.73(L) 0.80 - 3.30 K/cumm [facility] Comment:Testing performed by : [facility], [address] [place], [place] [id number] Monocyte abs 0.60 0.20 - 0.80 K/cumm [facility] Comment:Testing performed by : [facility], [address] [place] [address] Eosinophil abs 0.17 0.00 - 0.50 K/cumm [facility] Comment:Testing performed by : [facility], [address] [place] [address] Basophil abs 0.04 0.00 - 0.10 K/cumm CERNER [facility] Comment:Testing performed by : [facility], [address] [place], [place] [id number] Neutrophil pct 76.9 % C[facility]ER [facility] Comment: Interpretive Data Percent cell count reference ranges are not reported, since discordance with absolute values may lead to misinterpretation of CBC data. Current Interpretive Data was last revised on 2017. Testing performed by: [facility], [address] [place] [phone] Lymphocyte pct 11.0 % [facility] Comment: Interpretive Data Percent cell count reference ranges are not reported, since discordance with absolute values may lead to misinterpretation of CBC data. Current Interpretive Data was last revised on 2017. Testing performed by: [facility], [address] [place] [phone] Monocyte pct 9.0 % [facility] Comment: Interpretive Data Percent cell count reference ranges are not reported, since discordance with absolute values may lead to misinterpretation of CBC data. Current Interpretive Data was last revised on 2017. Testing performed by: [facility], [address] [place], [place] [id number] Eosinophil pct 2.6 % [facility] Comment: Interpretive Data Percent cell count reference ranges are not reported, since discordance with absolute values may lead to misinterpretation of CBC data. Current Interpretive Data was last revised on 2017. Testing performed by: [facility], [address] [place] [phone] Basophil pct 0.5 % [facility] Comment: Interpretive Data Percent cell count reference ranges are not reported, since discordance with absolute values may lead to misinterpretation of CBC data. Current Interpretive Data was last revised on 2017. Testing performed by: [facility], [address] [place] [phone] Blood 01/19/2025 1:32 PM CDT 01/19/2025 1:39 PM CDT Tiffany WAYNE LAB BLOOD ORDERABLES Final Result Performing Organization Address City/[facility]/ZIP Co de Phone Number [facility] Department [place] [address] * Iron profile w/ IBC (01/19/2025 1:32 PM CDT) Pathologist [facility] Iron 96 50 - 150 mcg/dL TIBC 322 250 - 400 mcg/dL [facility] Transferrin saturation 30 20 - 50 % [facility] Blood 01/19/2025 1:32 PM CDT 01/19/2025 1:42 PM CDT Ben Chahal MD PhD LAB BLOOD ORDERABLES Fin al Result [facility] Department [place] [address] * (ABNORMAL) CBC with auto differential (01/19/2025 1:32 PM CDT) Pathologist [facility] WBC 6.68 3.80 - 9.90 K/cumm Comment:Testing performed by : [facility], [address] [place] [phone] Hgb 11.6(L) 13.0 - 17.5 g/dL [facility] Comment:Testing performed by : [facility], [address] [place] [address] Hct 36.5(L) 38.9 - 50.3 % [facility] Comment:Testing performed by : [facility], [address] [place] [address] Plt 186 150 - 400 K/cumm C[facility]ER [facility] Comment:Testing performed by : [facility], [address] [place] [address] MPV 7.8 6.8 - 10.4 fL [facility] Comment:Testing performed by : [facility], [address] [place] [address] RBC 4.57 4.30 - 5.80 M/cumm C[facility]ER [facility] Comment:Testing performed by : [facility], [address] [place] [address] MCV 79.9(L) 81.3 - 96.4 fL [facility] Comment:Testing performed by : [facility], [address] [place] [address] MCH 25.3(L) 27.1 - 33.3 pg [facility] Comment:Testing performed by : [facility], [address] [place] [address] MCHC 31.7(L) 32.3 - 35.7 g/dL [facility] Comment:Testing performed by : [facility], [address] [place] [address] RDW CV 17.5(H) 11.1 - 14.9 % [facility] Comment:Testing performed by : [facility], [address] [place] [address] NRBC abs 0.00 0.00 - 0.01 K/cumm [facility] Comment:Testing performed by : [facility], [address] [place] [address] Blood 01/19/2025 1:32 PM CDT 01/19/2025 1:39 PM CDT Tiffany WAYNE LAB BLOOD ORDERABLES Final Result Performing Organization Address [facility] Co de Phone Number [facility] [place] [address] * Cancer antigen 19-9 (01/19/2025 1:32 PM CDT) [facility] CA 19-9 ag 24.3 <=35.0 units/mL Comment: Interpretive Data The Autumn CA 19-9 assay procedure was used. Results from different manufacturers or methods may not be comparable. Serial testing should be performed using the same method. Blood 01/19/2025 1:32 PM CDT 01/19/2025 2:11 PM CDT us Tiffany WAYNE LAB BLOOD ORDERABLES Final Result Performing Organization Address [facility] de Phone Number [facility] [place] [address] * Ferritin (01/19/2025 1:32 PM CDT) [facility] Ferritin 54 30 - 400 ng/mL Blood 01/19/2025 1:32 PM CDT 01/19/2025 1:42 PM CDT Ben Chahal MD PhD LAB BLOOD ORDERABLES Fin al Result Performing Organization Address [facility] Co de Phone Number [facility] [place] [address] * (ABNORMAL) Comprehensive metabolic panel (01/19/2025 1:32 PM CDT) [facility] Sodium 140 135 - 145 mmol/L Potassium, pl 4.0 3.3 - 4.9 mmol/L [facility] Chloride 103 97 - 110 mmol/L [facility] CO2 27 22 - 32 mmol/L [facility] Anion gap 10 2 - 15 mmol/L [facility] BUN 25 6 - 25 mg/dL [facility] Creatinine 0.92 0.80 - 1.30 mg/dL [facility] Glucose 184 70 - 199 mg/dL [facility] Comment: Interpretive Data Fasting glucose >/= 126 mg/dl is diagnostic for diabetes. Fasting is defined as no caloric intake for at least 8 hours. Fasting glucose between 100 mg/dl to 125 mg/dl is diagnostic of prediabetes. In a patient with classic symptoms of hyperglycemia or hyperglycemic crisis, a random glucose >/= 200 mg/dl is diagnostic for diabetes. In the absence of unequivocal hyperglycemia, results should be confirmed by repeat testing. The classification and Diagnosis of Diabetes Diabetes Care 2021; 46: S19-S40. Current interpretive data was last revised 2022. Calcium 9.0 8.5 - 10.3 mg/dL [facility] Bilirubin, total 0.2 0.1 - 1.2 mg/dL [facility] Protein, pl 7.2 6.5 - 8.5 g/dL [facility] Albumin 3.9 3.5 - 5.0 g/dL [facility] Alk phos 423(H) 40 - 130 Units/L [facility] ALT 42 7 - 55 Units/L [facility] AST 38 10 - 50 Units/L [facility] Blood 01/19/2025 1:32 PM CDT 01/19/2025 1:42 PM CDT Tiffany WAYNE LAB BLOOD ORDERABLES Final Result [facility] Department [place] [address] * CT chest without contrast (01/19/2025 1:12 PM CDT) Anatomical Region Laterality Modality Body N/A Computed Tomogra phy 01/19/2025 1:40 PM CDT Impressions 01/19/2025 2:22 PM CDT 1. No evidence of metastatic disease in the chest. 2. Incompletely evaluated ill-defined soft tissue around the celiac trunk and superior mesenteric artery due to lack of contrast. Dictated by: Kenyon Arrington M.D. The radiology attending physician has personally reviewed this study, and had reviewed and/or edited this written report and agrees with it. Electronically signed by: Hallie Islas M.D. Narrative 01/19/2025 2:22 PM CDT EXAMINATION: Computed tomography of the chest without intravenous contrast HISTORY: 69-year-old with history of neurofibromatosis 1 and pancreatic adenocarcinoma status post Whipple procedure, chemotherapy, and radiation. TECHNIQUE: Transaxial computed tomographic images of the chest were obtained without intravenous contrast according to the standard protocol. COMPARISON: 10/20/2024 FINDINGS: There is a left subclavian approach pacemaker/defibrillator with leads terminating over the right atrium and right ventricle. There is a right internal jugular approach central venous catheter with tip terminating in the right atrium. No supraclavicular, axillary, or mediastinal lymphadenopathy. Unchanged moderate cardiomegaly. Coronary artery calcifications. Aortic valve calcifications. Stable enlargement of the aortic root measuring up to 4.2cm. Mild bibasilar atelectasis. No suspicious pulmonary nodule. No other pulmonary consolidation. No pleural effusion or pneumothorax. Postsurgical changes of Whipple procedure with unchanged pneumobilia. Within the limitations of the noncontrast technique of this examination, there is no suspicious focal hepatic lesion. No extrahepatic bile duct dilation. Unchanged left adrenal adenoma measuring 1.2cm. Previously seen soft tissue around the celiac axis is not well seen on this examination due to the noncontrasted technique. No suspicious osseous lesion. Procedure Note Hallie Islas MD - 01/19/2025 EXAMINATION: Computed tomography of the chest without intravenous contrast HISTORY: 69-year-old with history of neurofibromatosis 1 and pancreatic adenocarcinoma status post Whipple procedure, chemotherapy, and radiation. TECHNIQUE: Transaxial computed tomographic images of the chest were obtained without intravenous contrast according to the standard protocol. COMPARISON: 10/20/2024 FINDINGS: There is a left subclavian approach pacemaker/defibrillator with leads terminating over the right atrium and right ventricle. There is a right internal jugular approach central venous catheter with tip terminating in the right atrium. No supraclavicular, axillary, or mediastinal lymphadenopathy. Unchanged moderate cardiomegaly. Coronary artery calcifications. Aortic valve calcifications. Stable enlargement of the aortic root measuring up to 4.2cm. Mild bibasilar atelectasis. No suspicious pulmonary nodule. No other pulmonary consolidation. No pleural effusion or pneumothorax. Postsurgical changes of Whipple procedure with unchanged pneumobilia. Within the limitations of the noncontrast technique of this examination, there is no suspicious focal hepatic lesion. No extrahepatic bile duct dilation. Unchanged left adrenal adenoma measuring 1.2cm. Previously seen soft tissue around the celiac axis is not well seen on this examination due to the noncontrasted technique. No suspicious osseous lesion. IMPRESSION: 1. No evidence of metastatic disease in the chest. 2. Incompletely evaluated ill-defined soft tissue around the celiac trunk and superior mesenteric artery due to lack of contrast. Dictated by: Kenyon Arrington M.D. The radiology attending physician has personally reviewed this study, and had reviewed and/or edited this written report and agrees with it. Electronically signed by: Hallie Islas M.D. Ben Chahal MD PhD IMG CT PROCEDURES Final Result * XR Chest 1 View (01/15/2025 12:51 PM CDT) Anatomical Region Laterality Modality Body, Chest N/A Computed Radiogr aphy 01/15/2025 12:5 8 PM CDT Impressions 01/15/2025 12:58 PM CDT Comparison is made to prior chest radiograph 09/22/2024 and computed tomography examination of the chest 10/20/2024. Heart size is upper normal. Dual-lead cardiac pacemaker defibrillator noted. The lungs are clear. Right-sided portacatheter present with tip in right atrium. Metallic occlusion device noted within left upper quadrant within patient's stomach. Electronically signed by: Shabbir Jett M.D. Narrative 01/15/2025 12:58 PM CDT EXAMINATION: 1 view chest radiograph Procedure Note Shabbir Jett MD - 01/15/2025 EXAMINATION: 1 view chest radiograph IMPRESSION: Comparison is made to prior chest radiograph 09/22/2024 and computed tomography examination of the chest 10/20/2024. Heart size is upper normal. Dual-lead cardiac pacemaker defibrillator noted. The lungs are clear. Right-sided portacatheter present with tip in right atrium. Metallic occlusion device noted within left upper quadrant within patient's stomach. Electronically signed by: Shabbir Jett M.D. us Cb Lentz MD IMG XR PROCEDURES Final R esult * (ABNORMAL) POCT glucose (01/15/2025 12:30 PM CDT) Glucose, POC 261(H) 70 - 199 mg/dL Comment: Interpretive Data Glucose is assumed to be non-fasting. Fasting Glucose reference ranges are: 0 - 150 years: 70 mg/dL - 99 mg/dL Current interpretive data was last revised on 2014. POC Performer [id number] [employer] POC Device Number [id number] [facility]Now [facility] Blood 01/15/2025 12:3 0 PM CDT 01/15/2025 12:30 PM CDT us Cb Lentz MD LAB POCT ORDERABLES - DEV ICE Final Result [facility] [id number] [facility]. Department [place] [address] * (ABNORMAL) POCT glucose (01/15/2025 11:49 AM CDT) Glucose, POC 284(H) 70 - 199 mg/dL Comment: Interpretive Data Glucose is assumed to be non-fasting. Fasting Glucose reference ranges are: 0 - 150 years: 70 mg/dL - 99 mg/dL Current interpretive data was last revised on 2014. POC Performer [id number] [employer] POC Device Number [id number] [facility]ENTERNow TechnologiesBR[facility] Glucose comment 1 RN/MD Notified KRISTENPETAR SWEENEYROSSANA Blood 01/15/2025 11:4 9 AM CDT 01/15/2025 11:49 AM CDT Cb Lentz MD LAB POCT ORDERABLES - DEV ICE Final Result Performing Organization Address [facility] Co de Phone Number [facility] [id number] [facility] [place] [address] * POCT glucose (01/15/2025 8:14 AM CDT) Glucose, POC 138 70 - 199 mg/dL Comment: Interpretive Data Glucose is assumed to be non-fasting. Fasting Glucose reference ranges are: 0 - 150 years: 70 mg/dL - 99 mg/dL Current interpretive data was last revised on 2014. POC Performer [id number] [facility] POC Device Number [id number] [facility]ENTERNow [facility] Blood 01/15/2025 8:14 AM CDT 01/15/2025 8:14 AM CDT Cb Lentz MD LAB POCT ORDERABLES - DEV ICE Final Result Performing Organization Address [facility] de Phone Number [facility] [address] [facility] [place] [address] * eGFR (01/15/2025 6:07 AM CDT) eGFR >90 >=60 mL/min/1. 73 m2 Comment: Interpretive Data Reference Interval Normal >/= 90 mL/min/1.73m2 Mildly decreased* 60 - 89 mL/min/1.73m2 Mildly to moderately decreased 45 - 59 mL/min/1.73m2 Moderately to severely decreased 30 - 44 mL/min/1.73m2 Severely decreased 15 - 29 mL/min/1.73m2 Kidney Failure < 15 mL/min/1.73m2 *Relative to young adult level Estimated glomerular filtration rate is determined by the 2020 CKD-EPI equation recommended by the National Kidney Foundation (A Unifying Approach to GFR Estimation: Recommendations of the NKF-ASK Task Force on Reassessing the Inclusion of Race in Diagnosing Kidney Disease, JASN 2020). The CKD-EPI equation should not be used for patients with unstable renal function and has not been validated in children and those over 70. Current interpretive data was last reviewed 2021. Blood 01/15/2025 6:07 AM CDT 01/15/2025 6:11 AM CDT Cb Lentz MD LAB BLOOD ORDERABLES Tete l Result [facility] [id number] [facility]. Department [place] [address] * (ABNORMAL) Differential, auto (01/15/2025 6:07 AM CDT) Neutrophil abs 1.98 1.50 - 6.50 K/cumm Imm gran abs 0.01 0.00 - 0.10 K/cumm [facility] Lymphocyte abs 0.66(L) 0.80 - 3.30 K/cumm [facility] Monocyte abs 0.67 0.20 - 0.80 K/cumm [facility] Eosinophil abs 0.18 0.00 - 0.50 K/cumm [facility] Basophil abs 0.02 0.00 - 0.10 K/cumm [facility] Neutrophil pct 56.2 % [facility] Comment: Interpretive Data Percent cell count reference ranges are not reported, since discordance with absolute values may lead to misinterpretation of CBC data. Current Interpretive Data was last revised on 2017. Imm gran pct 0.3 % [facility] Comment: Interpretive Data Percent cell count reference ranges are not reported, since discordance with absolute values may lead to misinterpretation of CBC data. Current Interpretive Data was last revised on 2017. Lymphocyte pct 18.8 % [facility] Comment: Interpretive Data Percent cell count reference ranges are not reported, since discordance with absolute values may lead to misinterpretation of CBC data. Current Interpretive Data was last revised on 2017. Monocyte pct 19.0 % [facility] Comment: Interpretive Data Percent cell count reference ranges are not reported, since discordance with absolute values may lead to misinterpretation of CBC data. Current Interpretive Data was last revised on 2017. Eosinophil pct 5.1 % [facility] Comment: Interpretive Data Percent cell count reference ranges are not reported, since discordance with absolute values may lead to misinterpretation of CBC data. Current Interpretive Data was last revised on 2017. Basophil pct 0.6 % [facility] Comment: Interpretive Data Percent cell count reference ranges are not reported, since discordance with absolute values may lead to misinterpretation of CBC data. Current Interpretive Data was last revised on 2017. Blood 01/15/2025 6:07 AM CDT 01/15/2025 6:11 AM CDT Cb Lentz MD LAB BLOOD ORDERABLES Tete bennett Result [facility] [id number] [facility]. Department [place] [address] * (ABNORMAL) CBC with auto differential (01/15/2025 6:07 AM CDT) WBC 3.52(L) 3.80 - 9.90 K/cumm Hgb 10.9(L) 13.0 - 17.5 g/dL [facility] Hct 35.3(L) 38.9 - 50.3 % [facility] Plt 143(L) 150 - 400 K/cumm [facility] MPV 10.4 9.1 - 12.3 fL [facility] RBC 4.25(L) 4.30 - 5.80 M/cumm [facility] MCV 83.1 81.3 - 96.4 fL [facility] MCH 25.6(L) 27.1 - 33.3 pg [facility] MCHC 30.9(L) 32.3 - 35.7 g/dL [facility] RDW CV 16.4(H) 11.1 - 14.9 % [facility] RDW SD 49.8(H) 35.7 - 48.1 fL [facility] NRBC abs 0.00 0.00 - 0.01 K/cumm [facility] Blood 01/15/2025 6:07 AM CDT 01/15/2025 6:11 AM CDT Cb Lentz MD LAB BLOOD ORDERABLES Tete l Result Performing Organization Address [facility]/ZIP Co de Phone Number DAVID SWEENEY [phone] [facility]. [place] [address] * Basic metabolic panel (01/15/2025 6:07 AM CDT) [facility] Sodium 138 135 - 145 mmol/L Potassium, pl 3.7 3.3 - 4.9 mmol/L [facility] Chloride 101 97 - 110 mmol/L [facility] CO2 26 22 - 32 mmol/L [facility] Anion gap 11 2 - 15 mmol/L [facility] BUN 15 6 - 25 mg/dL [facility] Creatinine 0.80 0.80 - 1.30 mg/dL [facility] Glucose 143 70 - 199 mg/dL [facility] Comment: Interpretive Data Fasting glucose >/= 126 mg/dl is diagnostic for diabetes. Fasting is defined as no caloric intake for at least 8 hours. Fasting glucose between 100 mg/dl to 125 mg/dl is diagnostic of prediabetes. In a patient with classic symptoms of hyperglycemia or hyperglycemic crisis, a random glucose >/= 200 mg/dl is diagnostic for diabetes. In the absence of unequivocal hyperglycemia, results should be confirmed by repeat testing. The classification and Diagnosis of Diabetes Diabetes Care 2021; 46: S19-S40. Current interpretive data was last revised 2022. Calcium 8.6 8.5 - 10.3 mg/dL [facility] Blood 01/15/2025 6:07 AM CDT 01/15/2025 6:11 AM CDT Cb Lentz MD LAB BLOOD ORDERABLES Tete l Result Performing Organization Address [facility]/ZIP Co de Phone Number DAVID VIRGENCH [id number] [facility] [address] * (ABNORMAL) POCT glucose (01/14/2025 9:51 PM CDT) Glucose, POC 226(H) 70 - 199 mg/dL Comment: Interpretive Data Glucose is assumed to be non-fasting. Fasting Glucose reference ranges are: 0 - 150 years: 70 mg/dL - 99 mg/dL Current interpretive data was last revised on 2014. POC Performer [id number] [facility] POC Device Number [id number] [facility] Blood 01/14/2025 9:51 PM CDT 01/14/2025 9:51 PM CDT Cb Lentz MD LAB POCT ORDERABLES - DEV ICE Final Result Performing Organization Address [facility] Co de Phone Number [facility] [id number] [facility] [place] [address] * POCT glucose (01/14/2025 5:03 PM CDT) Glucose, POC 137 70 - 199 mg/dL Comment: Interpretive Data Glucose is assumed to be non-fasting. Fasting Glucose reference ranges are: 0 - 150 years: 70 mg/dL - 99 mg/dL Current interpretive data was last revised on 2014. POC Performer [id number] [facility] POC Device Number [id number] [facility] Blood 01/14/2025 5:03 PM CDT 01/14/2025 5:03 PM CDT Cb Lentz MD LAB POCT ORDERABLES - DEV ICE Final Result Performing Organization Address [facility] Co de Phone Number [facility] [phone] [facility] [place] [address] * Infection Prevention Foreign auris PCR, surveillance Axilla/Groin (01/14/2025 12:16 PM CDT) Foreign auris DNA Not Detected Not Detected [facility] Comment: Interpretive Data Testing performed by [facility] using the Autumn simon 6800 Foreign auris assay. This assay detects DNA from Foreing auris using Real-Time PCR. This assay is laboratory developed and is not cleared by the [place] Food and Drug Administration. The performance characteristics have been verified by the [facility]. Testing performed by: [facility], [address] [place]., [address] Axilla/Groin 01/14/2025 12:1 6 PM CDT 01/14/2025 3:47 PM CDT Narrative KRISTENPETAR RICHELLE - 01/14/2025 10:26 PM CDT Order placed by [facility] due to ring surveillance. Instant Order Generic Provider LAB MICROBIOLOGY - GENERAL ORDERABLES Final Result Performing Organization Address City/[facility] Co de Phone Number DAVID [facility] [phone] [facility] [place] [address] [facility] * POCT glucose (01/14/2025 11:26 AM CDT) Glucose, POC 156 70 - 199 mg/dL Comment: Interpretive Data Glucose is assumed to be non-fasting. Fasting Glucose reference ranges are: 0 - 150 years: 70 mg/dL - 99 mg/dL Current interpretive data was last revised on 2014. POC Performer [id number] DAVID SWEENEY POC Device Number [id number] [facility] Blood 01/14/2025 11:2 6 AM CDT 01/14/2025 11:26 AM CDT Cb Lentz MD LAB POCT ORDERABLES - DEV ICE Final Result [facility] VIRGENCH [id number] [facility] [place] [address] * POCT glucose (01/14/2025 7:55 AM CDT) Glucose, POC 147 70 - 199 mg/dL Comment: Interpretive Data Glucose is assumed to be non-fasting. Fasting Glucose reference ranges are: 0 - 150 years: 70 mg/dL - 99 mg/dL Current interpretive data was last revised on 2014. POC Performer [id number] DAVID PEOPLES POC Device Number [id number] [facility] SWE[facility]YCH Blood 01/14/2025 7:55 AM CDT 01/14/2025 7:55 AM CDT us Cb Lentz MD LAB POCT ORDERABLES - DEV ICE Final Result Performing Organization Address City/State/[facility] Co de Phone Number [facility] [address] [facility]. [place] [address] * eGFR (01/14/2025 5:41 AM CDT) Pathologist [facility] eGFR >90 >=60 mL/min/1. 73 m2 Comment: Interpretive Data Reference Interval Normal >/= 90 mL/min/1.73m2 Mildly decreased* 60 - 89 mL/min/1.73m2 Mildly to moderately decreased 45 - 59 mL/min/1.73m2 Moderately to severely decreased 30 - 44 mL/min/1.73m2 Severely decreased 15 - 29 mL/min/1.73m2 Kidney Failure < 15 mL/min/1.73m2 *Relative to young adult level Estimated glomerular filtration rate is determined by the 2020 CKD-EPI equation recommended by the National Kidney Foundation (A Unifying Approach to GFR Estimation: Recommendations of the NKF-ASK Task Force on Reassessing the Inclusion of Race in Diagnosing Kidney Disease, JASN 2020). The CKD-EPI equation should not be used for patients with unstable renal function and has not been validated in children and those over 70. Current interpretive data was last reviewed 2021. Blood 01/14/2025 5:41 AM CDT 01/14/2025 5:57 AM CDT us Andreina Shields MD LAB BLOOD ORDJuliette SOTO Final Result [facility] [id number] [facility]. Department [place] [address] * (ABNORMAL) Differential, auto (01/14/2025 5:41 AM CDT) Neutrophil abs 3.83 1.50 - 6.50 K/cumm Imm gran abs 0.02 0.00 - 0.10 K/cumm [facility] Lymphocyte abs 0.62(L) 0.80 - 3.30 K/cumm [facility] Monocyte abs 0.61 0.20 - 0.80 K/cumm [facility] Eosinophil abs 0.20 0.00 - 0.50 K/cumm [facility] Basophil abs 0.03 0.00 - 0.10 K/cumm [facility] Neutrophil pct 72.0 % [facility] Comment: Interpretive Data Percent cell count reference ranges are not reported, since discordance with absolute values may lead to misinterpretation of CBC data. Current Interpretive Data was last revised on 2017. Imm gran pct 0.4 % [facility] Comment: Interpretive Data Percent cell count reference ranges are not reported, since discordance with absolute values may lead to misinterpretation of CBC data. Current Interpretive Data was last revised on 2017. Lymphocyte pct 11.7 % [facility] Comment: Interpretive Data Percent cell count reference ranges are not reported, since discordance with absolute values may lead to misinterpretation of CBC data. Current Interpretive Data was last revised on 2017. Monocyte pct 11.5 % [facility] Comment: Interpretive Data Percent cell count reference ranges are not reported, since discordance with absolute values may lead to misinterpretation of CBC data. Current Interpretive Data was last revised on 2017. Eosinophil pct 3.8 % [facility] Comment: Interpretive Data Percent cell count reference ranges are not reported, since discordance with absolute values may lead to misinterpretation of CBC data. Current Interpretive Data was last revised on 2017. Basophil pct 0.6 % [facility] Comment: Interpretive Data Percent cell count reference ranges are not reported, since discordance with absolute values may lead to misinterpretation of CBC data. Current Interpretive Data was last revised on 2017. Blood 01/14/2025 5:41 AM CDT 01/14/2025 5:57 AM CDT Andreina Shields MD LAB BLOOD ORDE RABTANVI Final Result DAVID PEOPLES [id number] [facility] [place] [address] * (ABNORMAL) CBC with auto differential (01/14/2025 5:41 AM CDT) WBC 5.31 3.80 - 9.90 K/cumm Hgb 11.4(L) 13.0 - 17.5 g/dL [facility] Hct 37.2(L) 38.9 - 50.3 % [facility] Plt 141(L) 150 - 400 K/cumm [facility] MPV 9.8 9.1 - 12.3 fL [facility] RBC 4.38 4.30 - 5.80 M/cumm [facility] MCV 84.9 81.3 - 96.4 fL [facility] MCH 26.0(L) 27.1 - 33.3 pg [facility] MCHC 30.6(L) 32.3 - 35.7 g/dL [facility] RDW CV 16.6(H) 11.1 - 14.9 % [facility] RDW SD 51.8(H) 35.7 - 48.1 fL [facility] NRBC abs 0.00 0.00 - 0.01 K/cumm [facility] Blood 01/14/2025 5:41 AM CDT 01/14/2025 5:57 AM CDT Andreina Shields MD LAB BLOOD ORDE RABTANVI Final Result DAVID PEOPLES [id number] [facility]. Department of Laboratories [place] [id number] * Basic metabolic panel (01/14/2025 5:41 AM CDT) Sodium 139 135 - 145 mmol/L Potassium, pl 4.2 3.3 - 4.9 mmol/L [facility] Chloride 105 97 - 110 mmol/L [facility] CO2 27 22 - 32 mmol/L [facility] Anion gap 7 2 - 15 mmol/L [facility] BUN 15 6 - 25 mg/dL [facility] Creatinine 0.80 0.80 - 1.30 mg/dL [facility] Glucose 169 70 - 199 mg/dL [facility] Comment: Interpretive Data Fasting glucose >/= 126 mg/dl is diagnostic for diabetes. Fasting is defined as no caloric intake for at least 8 hours. Fasting glucose between 100 mg/dl to 125 mg/dl is diagnostic of prediabetes. In a patient with classic symptoms of hyperglycemia or hyperglycemic crisis, a random glucose >/= 200 mg/dl is diagnostic for diabetes. In the absence of unequivocal hyperglycemia, results should be confirmed by repeat testing. The classification and Diagnosis of Diabetes Diabetes Care 202; 46: S19-S40. Current interpretive data was last revised 2022. Calcium 8.8 8.5 - 10.3 mg/dL [facility] Blood 01/14/2025 5:41 AM CDT 01/14/2025 5:57 AM CDT Andreina Shields MD LAB BLOOD NII SOTO Final Result [facility] [address] [facility]. Department [place] [address] * POCT glucose (01/13/2025 9:19 PM CDT) Glucose, POC 198 70 - 199 mg/dL Comment: Interpretive Data Glucose is assumed to be non-fasting. Fasting Glucose reference ranges are: 0 - 150 years: 70 mg/dL - 99 mg/dL Current interpretive data was last revised on 2014. POC Performer [id number] DAVID VIRGENW POC Device Number [id number] DAVID VIRGENWROSSANA Blood 01/13/2025 9:19 PM CDT 01/13/2025 9:19 PM CDT Andreina Shields MD LAB POCT ORDER JOSE LUIS - DEVICE Final Result Performing Organization Address [facility] Phone Number DAVID VIRGENCH [address] [facility] [place] [address] * POCT glucose (01/13/2025 5:27 PM CDT) Glucose, POC 90 70 - 199 mg/dL Comment: Interpretive Data Glucose is assumed to be non-fasting. Fasting Glucose reference ranges are: 0 - 150 years: 70 mg/dL - 99 mg/dL Current interpretive data was last revised on 2014. POC Performer [id number] [facility] [employer] POC Device Number [id number] [facility] Blood 01/13/2025 5:27 PM CDT 01/13/2025 5:27 PM CDT Andreina Shields MD LAB POCT ORDER JOSE LUIS - DEVICE Final Result Performing Organization Address [facility] Phone Number DAVID V[facility]GENWCH [address] [facility] [place] [address] * (ABNORMAL) POCT glucose (01/13/2025 12:13 PM CDT) Glucose, POC 222(H) 70 - 199 mg/dL Comment: Interpretive Data Glucose is assumed to be non-fasting. Fasting Glucose reference ranges are: 0 - 150 years: 70 mg/dL - 99 mg/dL Current interpretive data was last revised on 2014. POC Performer [id number] [facility] [employer] [facility] POC Device Number [id number] [facility] Blood 01/13/2025 12:1 3 PM CDT 01/13/2025 12:13 PM CDT Andreina Shields MD LAB POCT ORDER JOSE LUIS - DEVICE Final Result Performing Organization Address [facility] Phone Number DAVID VIRGENWCH [address] [place] [address] * POCT glucose (01/13/2025 8:05 AM CDT) Glucose, POC 109 70 - 199 mg/dL Comment: Interpretive Data Glucose is assumed to be non-fasting. Fasting Glucose reference ranges are: 0 - 150 years: 70 mg/dL - 99 mg/dL Current interpretive data was last revised on 2014. POC Performer [id number] [employer] POC Device Number [id number] [facility] Blood 01/13/2025 8:05 AM CDT 01/13/2025 8:05 AM CDT Andreina Shields MD LAB POCT ORDER JOSE LUIS - DEVICE Final Result Performing Organization Address [facility] Phone Number DAVID [facility] [address] [place] [address] * POCT glucose (01/13/2025 2:00 AM CDT) Glucose, POC 109 70 - 199 mg/dL Comment: Interpretive Data Glucose is assumed to be non-fasting. Fasting Glucose reference ranges are: 0 - 150 years: 70 mg/dL - 99 mg/dL Current interpretive data was last revised on 2014. POC Performer [id number] [employer] POC Device Number [id number] [facility] [employer] [facility] Blood 01/13/2025 2:00 AM CDT 01/13/2025 2:00 AM CDT Mary Lagunas MD LAB POCT ORDERABLES - DEVIC E Final Result [facility]ID [facility] [address] [facility]. Department [place] [address] * CT Abdomen Pelvis W Contrast (01/12/2025 10:28 PM CDT) Anatomical Region Laterality Modality Body N/A Computed Tomogra phy 01/13/2025 8:56 AM CDT Impressions 01/13/2025 9:07 AM CDT 1. Unchanged soft tissue thickening around the celiac trunk and superior mesenteric artery with mesenteric fat stranding and prominent by number mesenteric and retroperitoneal lymph nodes, which may be reactive. 2. Unchanged bladder wall thickening, which may represent cystitis or be related to chronic bladder outlet obstruction. 3. Unchanged small exophytic left renal lesion with indeterminate density. 4. Fat-containing periumbilical hernia. A preliminary report was provided by the tele-radiologist. Dictated by: Wilberto Fuentes MD The radiology attending physician has personally reviewed this study, and had reviewed and/or edited this written report and agrees with it. Electronically signed by: Shabbir Jett M.D. Narrative 01/13/2025 9:07 AM CDT EXAMINATION: Computed tomography of the abdomen and pelvis with intravenous contrast HISTORY: 69-year-old male with a history of pancreatic cancer presenting with abdominal tenderness TECHNIQUE: Transaxial computed tomographic images of the abdomen and pelvis were obtained with intravenous contrast according to the standard protocol after the uneventful administration of 100 mL Opti-Ray 350 intravenous contrast. COMPARISON: 12/09/2024 FINDINGS: There is elevation of the left hemidiaphragm. Partially imaged cardiac pacemaker/defibrillator leads. Calcified mediastinal lymph node. Mild emphysematous changes in the lung bases. 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 Scattered calcifications in the liver and spleen, likely old granulomatous disease. No suspicious hepatic lesions. The main portal vein, splenic vein, and superior mesenteric vein are patent. 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 The gallbladder is surgically absent. There is similar pneumobilia with unchanged pancreatic ductal dilation. There is pancreatic atrophy of the remainder of the pancreas, similar to prior. Mild unchanged splenomegaly. Unchanged small left adrenal nodule. Normal right adrenal gland. The kidneys enhance symmetrically without hydronephrosis. There is a unchanged 1.3 cm left renal lesion. There are multiple small nonobstructing stones in the left kidney measuring up to 7 mm. The bladder is thick-walled, similar to prior. The prostate is atrophied with transurethral resection of the prostate changes. There is a closure device along the greater curvature in the stomach. The caliber of the small bowel and colon is within normal limits. No bowel obstruction, pneumoperitoneum, or free fluid within the pelvis. Colonic diverticulosis without diverticulitis. Tiny duodenal diverticulum. The abdominal aorta is normal in caliber. There is mild calcification of the abdominal aorta and its branches. Again seen is ill-defined soft tissue encasing the celiac trunk and superior mesenteric artery. There is similar mesenteric fat stranding with prominent by number but subcentimeter mesenteric and retroperitoneal lymph nodes. No suspicious osseous lesions. There is a sacral nerve stimulator. Small fat-containing periumbilical hernia. Procedure Note Shabbir Jett MD - 01/13/2025 EXAMINATION: Computed tomography of the abdomen and pelvis with intravenous contrast HISTORY: 69-year-old male with a history of pancreatic cancer presenting with abdominal tenderness TECHNIQUE: Transaxial computed tomographic images of the abdomen and pelvis were obtained with intravenous contrast according to the standard protocol after the uneventful administration of 100 mL Opti-Ray 350 intravenous contrast. COMPARISON: 12/09/2024 FINDINGS: There is elevation of the left hemidiaphragm. Partially imaged cardiac pacemaker/defibrillator leads. Calcified mediastinal lymph node. Mild emphysematous changes in the lung bases. 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 Scattered calcifications in the liver and spleen, likely old granulomatous disease. No suspicious hepatic lesions. The main portal vein, splenic vein, and superior mesenteric vein are patent. 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 The gallbladder is surgically absent. There is similar pneumobilia with unchanged pancreatic ductal dilation. There is pancreatic atrophy of the remainder of the pancreas, similar to prior. Mild unchanged splenomegaly. Unchanged small left adrenal nodule. Normal right adrenal gland. The kidneys enhance symmetrically without hydronephrosis. There is a unchanged 1.3 cm left renal lesion. There are multiple small nonobstructing stones in the left kidney measuring up to 7 mm. The bladder is thick-walled, similar to prior. The prostate is atrophied with transurethral resection of the prostate changes. There is a closure device along the greater curvature in the stomach. The caliber of the small bowel and colon is within normal limits. No bowel obstruction, pneumoperitoneum, or free fluid within the pelvis. Colonic diverticulosis without diverticulitis. Tiny duodenal diverticulum. The abdominal aorta is normal in caliber. There is mild calcification of the abdominal aorta and its branches. Again seen is ill-defined soft tissue encasing the celiac trunk and superior mesenteric artery. There is similar mesenteric fat stranding with prominent by number but subcentimeter mesenteric and retroperitoneal lymph nodes. No suspicious osseous lesions. There is a sacral nerve stimulator. Small fat-containing periumbilical hernia. IMPRESSION: 1. Unchanged soft tissue thickening around the celiac trunk and superior mesenteric artery with mesenteric fat stranding and prominent by number mesenteric and retroperitoneal lymph nodes, which may be reactive. 2. Unchanged bladder wall thickening, which may represent cystitis or be related to chronic bladder outlet obstruction. 3. Unchanged small exophytic left renal lesion with indeterminate density. 4. Fat-containing periumbilical hernia. A preliminary report was provided by the tele-radiologist. Dictated by: Wilberto Fuentes MD The radiology attending physician has personally reviewed this study, and had reviewed and/or edited this written report and agrees with it. Electronically signed by: Shabbir Jett M.D. us Chaz Hernandez MD IMG CT PROCEDURES Final Result * POCT glucose (01/12/2025 8:00 PM CDT) Glucose, POC 164 70 - 199 mg/dL Comment: Interpretive Data Glucose is assumed to be non-fasting. Fasting Glucose reference ranges are: 0 - 150 years: 70 mg/dL - 99 mg/dL Current interpretive data was last revised on 2014. POC Performer [id number] [employer] [facility] POC Device Number [id number] DAVID [facility] Blood 01/12/2025 8:00 PM CDT 01/12/2025 8:00 PM CDT us Notinfile Unknown LAB POCT ORDERABLES - DEVICE F inal Result DAVID PEOPLES [address] [address]. Department [place] [address] * Urinalysis reflex to microscopic and culture Urine (01/12/2025 7:56 PM CDT) Color, ur Straw Yellow Clarity, ur Clear Clear [facility] Specific gravity, ur 1.017 1.003 - 1.030 [facility] pH, urine 6.0 [facility] Comment: Interpretive Data U rine pH is affected by diet, medications, systemic acid-base disturbances, and renal tubular function. pH may affect urinary stone formation. For example, urine pH below 6.0 may help reduce the tendency for calcium phosphate stones and pH greater than 6.0 may reduce the tendency for uric acid stone formation. Source: [facility] [employer] Current Interpretive Data was last revised on 2017 Protein, ur ql Negative Negative [facility] Glucose, ur ql Negative Negative [facility] Ketones, ur Negative Negative [facility] Bilirubin, ur Negative Negative [facility] Blood, ur Negative Negative [facility] Urobilinogen, ur <2.0 <2.0 mg/dL [facility] Nitrite, ur Negative Negative [facility] Leukocyte esterase, ur Negative Negative [facility] UA reflex comment Reflex conditions for microscopic UA and culture not met. [facility] Urine 01/12/2025 7:56 PM CDT 01/12/2025 7:59 PM CDT us Chaz Hernandez MD LAB MICROBIOLOGY - GENERAL ORD ERABLES Final Result DAVID SWEENEYCH [address] [address]. [place] [address] * eGFR (01/12/2025 4:53 PM CDT) eGFR >90 >=60 mL/min/1. 73 m2 Comment: Interpretive Data Reference Interval Normal >/= 90 mL/min/1.73m2 Mildly decreased* 60 - 89 mL/min/1.73m2 Mildly to moderately decreased 45 - 59 mL/min/1.73m2 Moderately to severely decreased 30 - 44 mL/min/1.73m2 Severely decreased 15 - 29 mL/min/1.73m2 Kidney Failure < 15 mL/min/1.73m2 *Relative to young adult level Estimated glomerular filtration rate is determined by the 2020 CKD-EPI equation recommended by the National Kidney Foundation (A Unifying Approach to GFR Estimation: Recommendations of the NKF-ASK Task Force on Reassessing the Inclusion of Race in Diagnosing Kidney Disease, JASN 2020). The CKD-EPI equation should not be used for patients with unstable renal function and has not been validated in children and those over 70. Current interpretive data was last reviewed 2021. Blood 01/12/2025 4:53 PM CDT 01/12/2025 5:08 PM CDT us Chaz Hernandez MD LAB BLOOD ORDERABLES Final Res ult [facility] [address] [facility]. Department [place] [address] * Differential, auto (01/12/2025 4:53 PM CDT) Neutrophil abs 4.51 1.50 - 6.50 K/cumm Imm gran abs 0.02 0.00 - 0.10 K/cumm [facility] Lymphocyte abs 0.82 0.80 - 3.30 K/cumm [facility] Monocyte abs 0.52 0.20 - 0.80 K/cumm [facility] Eosinophil abs 0.17 0.00 - 0.50 K/cumm [facility] Basophil abs 0.03 0.00 - 0.10 K/cumm [facility] Neutrophil pct 74.3 % [facility] Comment: Interpretive Data Percent cell count reference ranges are not reported, since discordance with absolute values may lead to misinterpretation of CBC data. Current Interpretive Data was last revised on 2017. Imm gran pct 0.3 % [facility] Comment: Interpretive Data Percent cell count reference ranges are not reported, since discordance with absolute values may lead to misinterpretation of CBC data. Current Interpretive Data was last revised on 2017. Lymphocyte pct 13.5 % [facility] Comment: Interpretive Data Percent cell count reference ranges are not reported, since discordance with absolute values may lead to misinterpretation of CBC data. Current Interpretive Data was last revised on 2017. Monocyte pct 8.6 % [facility] Comment: Interpretive Data Percent cell count reference ranges are not reported, since discordance with absolute values may lead to misinterpretation of CBC data. Current Interpretive Data was last revised on 2017. Eosinophil pct 2.8 % [facility] Comment: Interpretive Data Percent cell count reference ranges are not reported, since discordance with absolute values may lead to misinterpretation of CBC data. Current Interpretive Data was last revised on 2017. Basophil pct 0.5 % [facility] Comment: Interpretive Data Percent cell count reference ranges are not reported, since discordance with absolute values may lead to misinterpretation of CBC data. Current Interpretive Data was last revised on 2017. Blood 01/12/2025 4:53 PM CDT 01/12/2025 5:08 PM CDT Chaz Hernandez MD LAB BLOOD ORDERABLES Final Res ult [facility] [address] [facility]. Department [place] [address] * (ABNORMAL) CBC with auto differential (01/12/2025 4:53 PM CDT) WBC 6.07 3.80 - 9.90 K/cumm Hgb 10.9(L) 13.0 - 17.5 g/dL [facility] Hct 34.7(L) 38.9 - 50.3 % [facility] Plt 201 150 - 400 K/cumm [facility] MPV 10.5 9.1 - 12.3 fL [facility] RBC 4.17(L) 4.30 - 5.80 M/cumm [facility] MCV 83.2 81.3 - 96.4 fL [facility] MCH 26.1(L) 27.1 - 33.3 pg [facility] MCHC 31.4(L) 32.3 - 35.7 g/dL [facility] RDW CV 16.9(H) 11.1 - 14.9 % KRISTENNER [facility]JW RDW SD 50.7(H) 35.7 - 48.1 fL [facility] W NRBC abs 0.00 0.00 - 0.01 K/cumm [facility] Blood Venous blood specimen / Unknown 01/12/2025 4:53 PM CDT 01/12/2025 5:08 PM CDT Chaz Hernandez MD LAB BLOOD ORDERABLES Final Res ult Performing Organization Address [facility] de Phone Number [facility] [address] [facility] [employer] [place], [place] [id number] * (ABNORMAL) Lipase (01/12/2025 4:53 PM CDT) [facility] Lipase 5(L) 10 - 99 Units/L Blood Venous blood specimen / Unknown 01/12/2025 4:53 PM CDT 01/12/2025 5:08 PM CDT Chaz Hernandez MD LAB BLOOD ORDERABLES Final Res ult Performing Organization Address [facility] de Phone Number [facility] [address] [facility] [employer] [place], [place] [phone] * (ABNORMAL) Comprehensive metabolic panel (01/12/2025 4:53 PM CDT) [facility] Sodium 136 135 - 145 mmol/L Potassium, pl 4.4 3.3 - 4.9 mmol/L [facility] Chloride 104 97 - 110 mmol/L [facility] CO2 22 22 - 32 mmol/L [facility] Anion gap 11 2 - 15 mmol/L [facility] BUN 21 6 - 25 mg/dL [facility] Creatinine 0.70(L) 0.80 - 1.30 mg/dL [facility] Glucose 296(H) 70 - 199 mg/dL [facility] Comment: Interpretive Data Fasting glucose >/= 126 mg/dl is diagnostic for diabetes. Fasting is defined as no caloric intake for at least 8 hours. Fasting glucose between 100 mg/dl to 125 mg/dl is diagnostic of prediabetes. In a patient with classic symptoms of hyperglycemia or hyperglycemic crisis, a random glucose >/= 200 mg/dl is diagnostic for diabetes. In the absence of unequivocal hyperglycemia, results should be confirmed by repeat testing. The classification and Diagnosis of Diabetes Diabetes Care 2021; 46: S19-S40. Current interpretive data was last revised 2022. Calcium 9.0 8.5 - 10.3 mg/dL [facility] Bilirubin, total <0.1 0.1 - 1.2 mg/dL [facility] Protein, pl 6.3(L) 6.5 - 8.5 g/dL [facility] Albumin 3.7 3.5 - 5.0 g/dL [facility] Alk phos 408(H) 40 - 130 Units/L [facility] ALT 56(H) 7 - 55 Units/L [facility] AST 50 10 - 50 Units/L [facility] Blood 01/12/2025 4:53 PM CDT 01/12/2025 5:08 PM CDT Chaz Hernandez MD LAB BLOOD ORDERABLES Final Res ult [facility] [address] [facility] Department [place] [address] * POCT glucose (01/06/2025 8:52 AM CDT) Glucose Blood, POC 205 Normal Fasting 70 - 100, Random <200 mg/dL Blood 01/06/2025 8:52 AM CDT Margaret Balderas MD POINT OF CARE TEST ORDERABLE S Final Result * DEVICE CHECK - REMOTE (12/14/2024 2:58 AM CDT) Anatomical Region Laterality Modality Other 12/14/2024 2:58 AM CDT Narrative 12/22/2024 11:49 AM CDT Interpretation Summary: Battery and Leads (BL) Normal parameters noted on battery and lead(s) --- HUNG Presenting Rhythm (VA) Atrial Pacing-Ventricular Sensing (AP-VS) --- rate 60 Arrhythmic events (AE) Nonsustained SVT event(s) identified Transmission Information (TI) Device Summary Report Procedure Note Pebbles Nelson MD - 12/22/2024 Interpretation Summary: Battery and Leads (BL) Normal parameters noted on battery and lead(s) --- HUNG Presenting Rhythm (VA) Atrial Pacing-Ventricular Sensing (AP-VS) --- rate 60 Arrhythmic events (AE) Nonsustained SVT event(s) identified Transmission Information (TI) Device Summary Report us Pebbles Nelson MD CV CARDIAC SERVICES PROCEDURES Final Result * POCT glucose (12/10/2024 8:15 AM CDT) [facility] Glucose, POC 119 70 - 199 mg/dL Comment: Interpretive Data Glucose is assumed to be non-fasting. Fasting Glucose reference ranges are: 0 - 150 years: 70 mg/dL - 99 mg/dL Current interpretive data was last revised on 2014. POC Performer [id number] [facility] POC Device Number [id number] [facility] Blood 12/10/2024 8:15 AM CDT 12/10/2024 8:15 AM CDT us Madelyn Agosto MD LAB POCT ORDERABLES - DEV ICE Final Result [facility] [address] [facility]. Department [place] [address] * eGFR (12/10/2024 5:11 AM CDT) Pathologist [facility] eGFR >90 >=60 mL/min/1. 73 m2 Comment: Interpretive Data Reference Interval Normal >/= 90 mL/min/1.73m2 Mildly decreased* 60 - 89 mL/min/1.73m2 Mildly to moderately decreased 45 - 59 mL/min/1.73m2 Moderately to severely decreased 30 - 44 mL/min/1.73m2 Severely decreased 15 - 29 mL/min/1.73m2 Kidney Failure < 15 mL/min/1.73m2 *Relative to young adult level Estimated glomerular filtration rate is determined by the 2020 CKD-EPI equation recommended by the National Kidney Foundation (A Unifying Approach to GFR Estimation: Recommendations of the NKF-ASK Task Force on Reassessing the Inclusion of Race in Diagnosing Kidney Disease, JASN 2020). The CKD-EPI equation should not be used for patients with unstable renal function and has not been validated in children and those over 70. Current interpretive data was last reviewed 2021. Blood 12/10/2024 5:11 AM CDT 12/10/2024 5:14 AM CDT us Waylon Kramer NP LAB BLOOD ORDERABLES Final Resu lt [facility] [address] [facility]. Department [place] [address] * (ABNORMAL) CBC without differential (12/10/2024 5:11 AM CDT) Pathologist [facility] WBC 4.82 3.80 - 9.90 K/cumm Hgb 10.5(L) 13.0 - 17.5 g/dL [facility] Hct 33.7(L) 38.9 - 50.3 % [facility] Plt 164 150 - 400 K/cumm [facility] MPV 10.2 9.1 - 12.3 fL [facility] RBC 4.09(L) 4.30 - 5.80 M/cumm [facility] MCV 82.4 81.3 - 96.4 fL [facility] MCH 25.7(L) 27.1 - 33.3 pg [facility] MCHC 31.2(L) 32.3 - 35.7 g/dL [facility] W RDW CV 18.0(H) 11.1 - 14.9 % [facility] RDW SD 54.1(H) 35.7 - 48.1 fL [facility] NRBC abs 0.00 0.00 - 0.01 K/cumm [facility] Blood 12/10/2024 5:11 AM CDT 12/10/2024 5:14 AM CDT us Waylon Kramer NP LAB BLOOD ORDERABLES Final Resu lt [facility] [address] [facility]. Department [place] [address] * (ABNORMAL) Basic metabolic panel (12/10/2024 5:11 AM CDT) Sodium 140 135 - 145 mmol/L Potassium, pl 4.2 3.3 - 4.9 mmol/L [facility] Chloride 106 97 - 110 mmol/L [facility] CO2 22 22 - 32 mmol/L [facility] Anion gap 12 2 - 15 mmol/L [facility] BUN 20 6 - 25 mg/dL [facility] Creatinine 0.70(L) 0.80 - 1.30 mg/dL [facility] Glucose 138 70 - 199 mg/dL [facility] Comment: Interpretive Data Fasting glucose >/= 126 mg/dl is diagnostic for diabetes. Fasting is defined as no caloric intake for at least 8 hours. Fasting glucose between 100 mg/dl to 125 mg/dl is diagnostic of prediabetes. In a patient with classic symptoms of hyperglycemia or hyperglycemic crisis, a random glucose >/= 200 mg/dl is diagnostic for diabetes. In the absence of unequivocal hyperglycemia, results should be confirmed by repeat testing. The classification and Diagnosis of Diabetes Diabetes Care 2021; 46: S19-S40. Current interpretive data was last revised 2022. Calcium 8.6 8.5 - 10.3 mg/dL [facility] Blood 12/10/2024 5:11 AM CDT 12/10/2024 5:14 AM CDT Waylon Kramer NP LAB BLOOD ORDERABLES Final Resu lt Performing Organization Address [facility] de Phone Number [facility] [address] [facility] [place] [address] * (ABNORMAL) POCT glucose (12/09/2024 8:11 PM CDT) Glucose, POC 324(H) 70 - 199 mg/dL Comment: Interpretive Data Glucose is assumed to be non-fasting. Fasting Glucose reference ranges are: 0 - 150 years: 70 mg/dL - 99 mg/dL Current interpretive data was last revised on 2014. POC Performer [id number] [facility] POC Device Number [id number] [facility] Blood 12/09/2024 8:11 PM CDT 12/09/2024 8:11 PM CDT Madelyn Agosto MD LAB POCT ORDERABLES - DEV ICE Final Result Performing Organization Address [facility] Phone Number [facility] [address] [facility] [place] [address] * Urinalysis reflex to microscopic and culture Urine (12/09/2024 6:52 PM CDT) Color, ur Straw Yellow Clarity, ur Clear Clear [facility] Specific gravity, ur 1.019 1.003 - 1.030 [facility]LES pH, urine 5.5 [facility] Comment: Interpretive Data U rine pH is affected by diet, medications, systemic acid-base disturbances, and renal tubular function. pH may affect urinary stone formation. For example, urine pH below 6.0 may help reduce the tendency for calcium phosphate stones and pH greater than 6.0 may reduce the tendency for uric acid stone formation. Source: [employer] Current Interpretive Data was last revised on 2017 Protein, ur ql Negative Negative [facility] Glucose, ur ql Negative Negative [facility] Ketones, ur Negative Negative [facility] Bilirubin, ur Negative Negative [facility] Blood, ur Negative Negative [facility] Urobilinogen, ur <2.0 <2.0 mg/dL [facility] Nitrite, ur Negative Negative [facility] Leukocyte esterase, ur Negative Negative [facility] UA reflex comment Reflex conditions for microscopic UA and culture not met. [facility] Urine 12/09/2024 6:52 PM CDT 12/09/2024 7:02 PM CDT Waylon Kramer NP LAB MICROBIOLOGY - GENERAL NII SOTO Final Result Performing Organization Address [facility] Co de Phone Number [facility] [address] [facility] [employer] [place], [place] [phone] * POCT glucose (12/09/2024 4:40 PM CDT) Glucose, POC 129 70 - 199 mg/dL Comment: Interpretive Data Glucose is assumed to be non-fasting. Fasting Glucose reference ranges are: 0 - 150 years: 70 mg/dL - 99 mg/dL Current interpretive data was last revised on 2014. POC Performer [id number] [facility] POC Device Number [id number] [facility] Blood 12/09/2024 4:40 PM CDT 12/09/2024 4:40 PM CDT Madelyn Agosto MD LAB POCT ORDERABLES - DEV ICE Final Result Performing Organization Address City/[facility]/ZIP Co de Phone Number [facility] [address] [facility] [employer] [place], [place] [phone] * POCT glucose (12/09/2024 11:29 AM CDT) Glucose, POC 92 70 - 199 mg/dL Comment: Interpretive Data Glucose is assumed to be non-fasting. Fasting Glucose reference ranges are: 0 - 150 years: 70 mg/dL - 99 mg/dL Current interpretive data was last revised on 2014. POC Performer [id number] [facility] POC Device Number [id number] [facility] Blood 12/09/2024 11:2 9 AM CDT 12/09/2024 11:29 AM CDT Madelyn Agosto MD LAB POCT ORDERABLES - DEV ICE Final Result Performing Organization Address [facility] Co de Phone Number [facility] [address] [facility] [employer] [place], [place] [phone] * (ABNORMAL) Hemoglobin and hematocrit (12/09/2024 11:24 AM CDT) Hgb 10.9(L) 13.0 - 17.5 g/dL Hct 35.1(L) 38.9 - 50.3 % [facility] Blood 12/09/2024 11:2 4 AM CDT 12/09/2024 11:47 AM CDT Waylon Kramer NP LAB BLOOD ORDERABLES Final Resu lt Performing Organization Address [facility] Co de Phone Number [facility] [phone] [facility] [employer] [place], [place] [phone] * POCT glucose (12/09/2024 9:09 AM CDT) Glucose, POC 81 70 - 199 mg/dL Comment: Interpretive Data Glucose is assumed to be non-fasting. Fasting Glucose reference ranges are: 0 - 150 years: 70 mg/dL - 99 mg/dL Current interpretive data was last revised on 2014. POC Performer [id number] [facility] POC Device Number [id number] [facility] Blood 12/09/2024 9:09 AM CDT 12/09/2024 9:09 AM CDT us Madelyn Agosto MD LAB POCT ORDERABLES - DEV ICE Final Result Performing Organization Address [facility] Co de Phone Number [facility] [address] [facility] [place] [address] * POCT glucose (12/09/2024 6:16 AM CDT) [facility] Glucose, POC 130 70 - 199 mg/dL Comment: Interpretive Data Glucose is assumed to be non-fasting. Fasting Glucose reference ranges are: 0 - 150 years: 70 mg/dL - 99 mg/dL Current interpretive data was last revised on 2014. POC Performer [id number] DAVID [facility]IRGENW POC Device Number [id number] [facility]AR [facility] Blood 12/09/2024 6:16 AM CDT 12/09/2024 6:16 AM CDT us Notinfile Unknown LAB POCT ORDERABLES - DEVICE F inal Result Performing Organization Address [facility] Co de Phone Number [facility] [address] [employer]. [place] [address] * Lactate (12/09/2024 6:01 AM CDT) [facility] Lactate 1.1 0.7 - 2.0 mmol/L Blood 12/09/2024 6:01 AM CDT 12/09/2024 6:06 AM CDT us Marcie Stewart [employer] LAB BLOOD ORDERABLES Final Resul t Performing Organization Address [facility] Co de Phone Number DAVID [employer] [facility] [phone] [facility] [place] [address] * eGFR (12/09/2024 5:38 AM CDT) [facility] eGFR >90 >=60 mL/min/1. 73 m2 Comment: Interpretive Data Reference Interval Normal >/= 90 mL/min/1.73m2 Mildly decreased* 60 - 89 mL/min/1.73m2 Mildly to moderately decreased 45 - 59 mL/min/1.73m2 Moderately to severely decreased 30 - 44 mL/min/1.73m2 Severely decreased 15 - 29 mL/min/1.73m2 Kidney Failure < 15 mL/min/1.73m2 *Relative to young adult level Estimated glomerular filtration rate is determined by the 2020 CKD-EPI equation recommended by the National Kidney Foundation (A Unifying Approach to GFR Estimation: Recommendations of the NKF-ASK Task Force on Reassessing the Inclusion of Race in Diagnosing Kidney Disease, JASN 2020). The CKD-EPI equation should not be used for patients with unstable renal function and has not been validated in children and those over 70. Current interpretive data was last reviewed 2021. Blood 12/09/2024 5:38 AM CDT 12/09/2024 5:40 AM CDT Marcie Stewart NP LAB BLOOD ORDERABLES Final Resul t [facility] [address] [facility]. Department [place] [address] * Differential, auto (12/09/2024 5:38 AM CDT) Neutrophil abs 4.85 1.50 - 6.50 K/cumm Imm gran abs 0.04 0.00 - 0.10 K/cumm [facility] Lymphocyte abs 0.91 0.80 - 3.30 K/cumm [facility] Monocyte abs 0.68 0.20 - 0.80 K/cumm [facility] Eosinophil abs 0.20 0.00 - 0.50 K/cumm [facility] Basophil abs 0.03 0.00 - 0.10 K/cumm [facility] Neutrophil pct 72.3 % [facility] Comment: Interpretive Data Percent cell count reference ranges are not reported, since discordance with absolute values may lead to misinterpretation of CBC data. Current Interpretive Data was last revised on 2017. Imm gran pct 0.6 % [facility] Comment: Interpretive Data Percent cell count reference ranges are not reported, since discordance with absolute values may lead to misinterpretation of CBC data. Current Interpretive Data was last revised on 2017. Lymphocyte pct 13.6 % [facility] Comment: Interpretive Data Percent cell count reference ranges are not reported, since discordance with absolute values may lead to misinterpretation of CBC data. Current Interpretive Data was last revised on 2017. Monocyte pct 10.1 % [facility] Comment: Interpretive Data Percent cell count reference ranges are not reported, since discordance with absolute values may lead to misinterpretation of CBC data. Current Interpretive Data was last revised on 2017. Eosinophil pct 3.0 % [facility] Comment: Interpretive Data Percent cell count reference ranges are not reported, since discordance with absolute values may lead to misinterpretation of CBC data. Current Interpretive Data was last revised on 2017. Basophil pct 0.4 % [facility]AR [facility] Comment: Interpretive Data Percent cell count reference ranges are not reported, since discordance with absolute values may lead to misinterpretation of CBC data. Current Interpretive Data was last revised on 2017. Blood 12/09/2024 5:38 AM CDT 12/09/2024 5:40 AM CDT Marcie Stewart NP LAB BLOOD ORDERABLES Final Resul t [facility] [address] [facility] Department [place] [address] * (ABNORMAL) CBC with auto differential (12/09/2024 5:38 AM CDT) WBC 6.71 3.80 - 9.90 K/cumm Hgb 10.2(L) 13.0 - 17.5 g/dL [facility] W Hct 33.1(L) 38.9 - 50.3 % [facility] W Plt 182 150 - 400 K/cumm [facility] MPV 10.4 9.1 - 12.3 fL [facility] RBC 4.00(L) 4.30 - 5.80 M/cumm [facility] MCV 82.8 81.3 - 96.4 fL [facility] MCH 25.5(L) 27.1 - 33.3 pg [facility] MCHC 30.8(L) 32.3 - 35.7 g/dL [facility] RDW CV 18.2(H) 11.1 - 14.9 % [facility] RDW SD 54.7(H) 35.7 - 48.1 fL [facility] NRBC abs 0.00 0.00 - 0.01 K/cumm [facility] Blood Venous blood specimen / Unknown 12/09/2024 5:38 AM CDT 12/09/2024 5:40 AM CDT Marcie Stewart NP LAB BLOOD ORDERABLES Final Resul t [facility] [address] [facility]. Department [place] [address] * (ABNORMAL) Comprehensive metabolic panel (12/09/2024 5:38 AM CDT) Sodium 140 135 - 145 mmol/L Potassium, pl 3.9 3.3 - 4.9 mmol/L [facility] Chloride 107 97 - 110 mmol/L [facility] CO2 20(L) 22 - 32 mmol/L [facility] Anion gap 13 2 - 15 mmol/L [facility] BUN 25 6 - 25 mg/dL [facility] Creatinine 0.60(L) 0.80 - 1.30 mg/dL [facility] Glucose 150 70 - 199 mg/dL [facility] Comment: Interpretive Data Fasting glucose >/= 126 mg/dl is diagnostic for diabetes. Fasting is defined as no caloric intake for at least 8 hours. Fasting glucose between 100 mg/dl to 125 mg/dl is diagnostic of prediabetes. In a patient with classic symptoms of hyperglycemia or hyperglycemic crisis, a random glucose >/= 200 mg/dl is diagnostic for diabetes. In the absence of unequivocal hyperglycemia, results should be confirmed by repeat testing. The classification and Diagnosis of Diabetes Diabetes Care 202; 46: S19-S40. Current interpretive data was last revised 2022. Calcium 8.3(L) 8.5 - 10.3 mg/dL [facility] Bilirubin, total 0.3 0.1 - 1.2 mg/dL [facility] Protein, pl 6.0(L) 6.5 - 8.5 g/dL [facility] Albumin 3.7 3.5 - 5.0 g/dL [facility] Alk phos 380(H) 40 - 130 Units/L [facility] ALT 38 7 - 55 Units/L [facility] AST 35 10 - 50 Units/L [facility] Blood 12/09/2024 5:38 AM CDT 12/09/2024 5:40 AM CDT Marcie Stewart [employer] LAB BLOOD ORDERABLES Final Resul t Performing Organization Address City/[facility] Co de Phone Number [facility] [address] [facility] [employer] [place], [place] [phone] * POCT glucose (12/09/2024 4:54 AM CDT) Glucose, POC 148 70 - 199 mg/dL Comment: Interpretive Data Glucose is assumed to be non-fasting. Fasting Glucose reference ranges are: 0 - 150 years: 70 mg/dL - 99 mg/dL Current interpretive data was last revised on 2014. POC Performer [id number] [facility] POC Device Number [id number] [facility] Blood 12/09/2024 4:54 AM CDT 12/09/2024 4:54 AM CDT Notinfile Unknown LAB POCT ORDERABLES - DEVICE F inal Result Performing Organization Address [facility] [facility]ZIP Co de Phone Number DAVID VIRGENCH [id number] [facility] [place] [address] * POCT glucose (12/09/2024 4:13 AM CDT) Glucose, POC 81 70 - 199 mg/dL Comment: Interpretive Data Glucose is assumed to be non-fasting. Fasting Glucose reference ranges are: 0 - 150 years: 70 mg/dL - 99 mg/dL Current interpretive data was last revised on 2014. POC Performer [id number] [facility] POC Device Number [id number] [facility] Blood 12/09/2024 4:13 AM CDT 12/09/2024 4:13 AM CDT us Notinfile Unknown LAB POCT ORDERABLES - DEVICE F inal Result DAVID SWEENEYCH [address] [facility]. Department [place] [address] * CT Abdomen Pelvis W WO Contrast (12/09/2024 3:04 AM CDT) Anatomical Region Laterality Modality Body N/A Computed Tomogra phy 12/09/2024 9:01 AM CDT Impressions 12/09/2024 9:10 AM CDT 1. Postsurgical changes of Whipple procedure with unchanged soft tissue thickening around the celiac trunk and superior mesenteric artery. Stable mesenteric fat stranding and prominent mesenteric lymph nodes inferior to the surgical bed, likely reactive. 2. Circumferential bladder wall thickening and perivesicular fat stranding, which may see in the setting of cystitis. Recommend correlation with urinalysis. Preliminary findings were provided by teleradiology non destructive testing scientist Dr. Fabienne Schuler. Dictated by: Selene Levi MD, PhD. The radiology attending physician has personally reviewed this study, and had reviewed and/or edited this written report and agrees with it. Electronically signed by: Shabbir Jett M.D. Narrative 12/09/2024 9:10 AM CDT EXAMINATION: Computed tomography of the abdomen and pelvis with and without intravenous contrast HISTORY: 69-year-old male with abdominal pain and rectal bleeding. TECHNIQUE: Transaxial computed tomographic images of the abdomen and pelvis were obtained with and without intravenous contrast according to the ischemic bowel/GI bleeding protocol after the uneventful administration of 100 mL Opti-Ray 350 intravenous contrast. COMPARISON: Comparison is made to prior CT dated 11/19/2024. FINDINGS: Atelectasis and aspiration changes in the lung bases, left greater than right. No pleural effusion or pneumothorax in imaged lung bases. There is stable cardiomegaly. No pericardial effusion. Partially imaged pacer defibrillator wires in the right atrium and right ventricle. Partially imaged coronary artery calcifications and aortic valve calcifications. There is increased pneumobilia, which is within normal limits in the setting of prior Whipple procedure. No suspicious hepatic masses. Calcified granulomas throughout the liver. The gallbladder is surgically absent. The portal, splenic, and superior mesenteric veins are patent. There is no intrahepatic biliary ductal dilation. Mild periportal edema. Calcified granulomas in the spleen. Stable left adrenal nodule measuring 1.2 cm (series 6, image 52). The right adrenal gland is normal. Postsurgical changes of Whipple procedure. The remaining pancreatic parenchyma is unremarkable. There is mild persistent dilation of the pancreatic duct. Unchanged soft tissue thickening about the celiac axis and superior mesenteric arteries. There is a clip in the stomach, unchanged. Gastrojejunal anastomosis appears intact. There is no bowel obstruction. Diverticulosis without diverticulitis. Trace ascites. No pneumoperitoneum. The appendix is surgically absent. There is mild mesenteric edema and innumerable mildly prominent mesenteric and retroperitoneal lymph nodes, unchanged compared to the prior study. The kidneys enhance symmetrically. There is no hydronephrosis or obstructive nephrolithiasis. Bilateral punctate nonobstructive renal stones. 1.3 cm hemorrhagic or proteinaceous left renal cyst. There are multiple hypoattenuating lesions throughout both kidneys which are too small to characterize but are favored to represent cysts. The urinary bladder is diffusely thick-walled with mild perivesicular fat stranding. The prostate is surgically absent. Sacral spinal cord stimulator in place. No suspicious osseous lesions. Soft tissue stranding in the right posterior sacral area is stable. Fat-containing ventral abdominal hernia. Bilateral L5 pars defects. The course and caliber of the abdominal aorta and its branching vessels are normal. Procedure Note Shabbir Jett MD - 12/09/2024 EXAMINATION: Computed tomography of the abdomen and pelvis with and without intravenous contrast HISTORY: 69-year-old male with abdominal pain and rectal bleeding. TECHNIQUE: Transaxial computed tomographic images of the abdomen and pelvis were obtained with and without intravenous contrast according to the ischemic bowel/GI bleeding protocol after the uneventful administration of 100 mL Opti-Ray 350 intravenous contrast. COMPARISON: Comparison is made to prior CT dated 11/19/2024. FINDINGS: Atelectasis and aspiration changes in the lung bases, left greater than right. No pleural effusion or pneumothorax in imaged lung bases. There is stable cardiomegaly. No pericardial effusion. Partially imaged pacer defibrillator wires in the right atrium and right ventricle. Partially imaged coronary artery calcifications and aortic valve calcifications. There is increased pneumobilia, which is within normal limits in the setting of prior Whipple procedure. No suspicious hepatic masses. Calcified granulomas throughout the liver. The gallbladder is surgically absent. The portal, splenic, and superior mesenteric veins are patent. There is no intrahepatic biliary ductal dilation. Mild periportal edema. Calcified granulomas in the spleen. Stable left adrenal nodule measuring 1.2 cm (series 6, image 52). The right adrenal gland is normal. Postsurgical changes of Whipple procedure. The remaining pancreatic parenchyma is unremarkable. There is mild persistent dilation of the pancreatic duct. Unchanged soft tissue thickening about the celiac axis and superior mesenteric arteries. There is a clip in the stomach, unchanged. Gastrojejunal anastomosis appears intact. There is no bowel obstruction. Diverticulosis without diverticulitis. Trace ascites. No pneumoperitoneum. The appendix is surgically absent. There is mild mesenteric edema and innumerable mildly prominent mesenteric and retroperitoneal lymph nodes, unchanged compared to the prior study. The kidneys enhance symmetrically. There is no hydronephrosis or obstructive nephrolithiasis. Bilateral punctate nonobstructive renal stones. 1.3 cm hemorrhagic or proteinaceous left renal cyst. There are multiple hypoattenuating lesions throughout both kidneys which are too small to characterize but are favored to represent cysts. The urinary bladder is diffusely thick-walled with mild perivesicular fat stranding. The prostate is surgically absent. Sacral spinal cord stimulator in place. No suspicious osseous lesions. Soft tissue stranding in the right posterior sacral area is stable. Fat-containing ventral abdominal hernia. Bilateral L5 pars defects. The course and caliber of the abdominal aorta and its branching vessels are normal. IMPRESSION: 1. Postsurgical changes of Whipple procedure with unchanged soft tissue thickening around the celiac trunk and superior mesenteric artery. Stable mesenteric fat stranding and prominent mesenteric lymph nodes inferior to the surgical bed, likely reactive. 2. Circumferential bladder wall thickening and perivesicular fat stranding, which may see in the setting of cystitis. Recommend correlation with urinalysis. Preliminary findings were provided by teleradiology non destructive testing scientist Dr. Fabienne Schuler. Dictated by: Sleene Levi MD, PhD. The radiology attending physician has personally reviewed this study, and had reviewed and/or edited this written report and agrees with it. Electronically signed by: Shabbir Jett M.D. Marcie Stewart RIVETER HAND IMG CT PROCEDURES Final Result * POCT glucose (12/09/2024 2:41 AM CDT) [facility] Glucose, POC 89 70 - 199 mg/dL Comment: Interpretive Data Glucose is assumed to be non-fasting. Fasting Glucose reference ranges are: 0 - 150 years: 70 mg/dL - 99 mg/dL Current interpretive data was last revised on 2014. POC Performer [id number] [facility] POC Device Number [id number] [facility] Blood 12/09/2024 2:41 AM CDT 12/09/2024 2:41 AM CDT Notinfile Unknown LAB POCT ORDERABLES - DEVICE F inal Result [facility] BJ[facility]CH [address] [facility] Department [place] [address] * eGFR (12/08/2024 11:02 PM CDT) [facility] eGFR >90 >=60 mL/min/1. 73 m2 Comment: Interpretive Data Reference Interval Normal >/= 90 mL/min/1.73m2 Mildly decreased* 60 - 89 mL/min/1.73m2 Mildly to moderately decreased 45 - 59 mL/min/1.73m2 Moderately to severely decreased 30 - 44 mL/min/1.73m2 Severely decreased 15 - 29 mL/min/1.73m2 Kidney Failure < 15 mL/min/1.73m2 *Relative to young adult level Estimated glomerular filtration rate is determined by the 2020 CKD-EPI equation recommended by the National Kidney Foundation (A Unifying Approach to GFR Estimation: Recommendations of the NKF-ASK Task Force on Reassessing the Inclusion of Race in Diagnosing Kidney Disease, JASN 2020). The CKD-EPI equation should not be used for patients with unstable renal function and has not been validated in children and those over 70. Current interpretive data was last reviewed 2021. Blood 12/08/2024 11:0 2 PM CDT 12/08/2024 11:05 PM CDT us Mary Lagunas MD LAB BLOOD ORDERABLES Final Result DAVID SWEENEY [address] [facility]. Department [place] [address] * Differential, auto (12/08/2024 11:02 PM CDT) Neutrophil abs 4.56 1.50 - 6.50 K/cumm Imm gran abs 0.02 0.00 - 0.10 K/cumm [facility] Lymphocyte abs 0.97 0.80 - 3.30 K/cumm [facility] Monocyte abs 0.67 0.20 - 0.80 K/cumm [facility] Eosinophil abs 0.22 0.00 - 0.50 K/cumm [facility] Basophil abs 0.03 0.00 - 0.10 K/cumm [facility] Neutrophil pct 70.4 % DAVID PEOPLES Comment: Interpretive Data Percent cell count reference ranges are not reported, since discordance with absolute values may lead to misinterpretation of CBC data. Current Interpretive Data was last revised on 2017. Imm gran pct 0.3 % DAVID PEOPLES Comment: Interpretive Data Percent cell count reference ranges are not reported, since discordance with absolute values may lead to misinterpretation of CBC data. Current Interpretive Data was last revised on 2017. Lymphocyte pct 15.0 % DAVID PEOPLES Comment: Interpretive Data Percent cell count reference ranges are not reported, since discordance with absolute values may lead to misinterpretation of CBC data. Current Interpretive Data was last revised on 2017. Monocyte pct 10.4 % [facility] Comment: Interpretive Data Percent cell count reference ranges are not reported, since discordance with absolute values may lead to misinterpretation of CBC data. Current Interpretive Data was last revised on 2017. Eosinophil pct 3.4 % [facility] Comment: Interpretive Data Percent cell count reference ranges are not reported, since discordance with absolute values may lead to misinterpretation of CBC data. Current Interpretive Data was last revised on 2017. Basophil pct 0.5 % [facility] Comment: Interpretive Data Percent cell count reference ranges are not reported, since discordance with absolute values may lead to misinterpretation of CBC data. Current Interpretive Data was last revised on 2017. Blood 12/08/2024 11:0 2 PM CDT 12/08/2024 11:05 PM CDT Mary Lagunas MD LAB BLOOD ORDERABLES Final Result [facility] [address] [facility]. Department [place] [address] * (ABNORMAL) CBC with auto differential (12/08/2024 11:02 PM CDT) WBC 6.47 3.80 - 9.90 K/cumm Hgb 11.4(L) 13.0 - 17.5 g/dL [facility] Hct 36.7(L) 38.9 - 50.3 % [facility] Plt 213 150 - 400 K/cumm [facility] MPV 10.4 9.1 - 12.3 fL [facility] RBC 4.51 4.30 - 5.80 M/cumm [facility] MCV 81.4 81.3 - 96.4 fL [facility] MCH 25.3(L) 27.1 - 33.3 pg [facility] MCHC 31.1(L) 32.3 - 35.7 g/dL [facility] RDW CV 18.4(H) 11.1 - 14.9 % [facility] RDW SD 53.5(H) 35.7 - 48.1 fL [facility] NRBC abs 0.00 0.00 - 0.01 K/cumm [facility] Blood 12/08/2024 11:0 2 PM CDT 12/08/2024 11:05 PM CDT Mary Lagunas MD LAB BLOOD ORDERABLES Final Result Performing Organization Address [facility] de Phone Number [facility] [address] [facility] [employer] [place], [place] [id number] * Type and screen (12/08/2024 11:02 PM CDT) Pathologist [facility] ABO Rh A Positive [facility] Zaid, indirect Negative [facility] Blood 12/08/2024 11:0 2 PM CDT 12/08/2024 11:05 PM CDT Narrative [facility] - 12/09/2024 12:41 AM CDT Has the patient had Daratumumab or Isatuximab in the past 6 months?->Unknown Mary Lagunas MD LAB BLOOD BANK TEST ORDERAB LES Final Result Performing Organization Address [facility] de Phone Number [facility] [address] [facility] [employer] [place], [place] [id number] * (ABNORMAL) Basic metabolic panel (12/08/2024 11:02 PM CDT) Sodium 139 135 - 145 mmol/L Potassium, pl 4.2 3.3 - 4.9 mmol/L [facility] Chloride 104 97 - 110 mmol/L [facility] CO2 19(L) 22 - 32 mmol/L [facility] Anion gap 16(H) 2 - 15 mmol/L [facility] BUN 28(H) 6 - 25 mg/dL [facility] Creatinine 0.80 0.80 - 1.30 mg/dL [facility] Glucose 212(H) 70 - 199 mg/dL [facility] Comment: Interpretive Data Fasting glucose >/= 126 mg/dl is diagnostic for diabetes. Fasting is defined as no caloric intake for at least 8 hours. Fasting glucose between 100 mg/dl to 125 mg/dl is diagnostic of prediabetes. In a patient with classic symptoms of hyperglycemia or hyperglycemic crisis, a random glucose >/= 200 mg/dl is diagnostic for diabetes. In the absence of unequivocal hyperglycemia, results should be confirmed by repeat testing. The classification and Diagnosis of Diabetes Diabetes Care 202; 46: S19-S40. Current interpretive data was last revised 2022. Calcium 9.2 8.5 - 10.3 mg/dL DAVID SWEENEY Blood 12/08/2024 11:0 2 PM CDT 12/08/2024 11:05 PM CDT Mary Lagunas MD LAB BLOOD ORDERABLES Final Result Performing Organization Address [facility] Co de Phone Number [facility] [address] [employer] [place] [address] * (ABNORMAL) POCT glucose (12/08/2024 11:01 PM CDT) [facility] Glucose, POC 201(H) 70 - 199 mg/dL Comment: Interpretive Data Glucose is assumed to be non-fasting. Fasting Glucose reference ranges are: 0 - 150 years: 70 mg/dL - 99 mg/dL Current interpretive data was last revised on 2014. POC Performer [id number] [facility] P[facility] Device Number [id number] [facility] Blood 12/08/2024 11:0 1 PM CDT 12/08/2024 11:01 PM CDT us Notinfile Unknown LAB POCT ORDERABLES - DEVICE F inal Result Performing Organization Address [facility] Co de Phone Number [facility] [address] [employer] [place], [place] [phone] * POCT glucose (11/24/2024 7:48 AM CDT) Glucose, POC 119 70 - 199 mg/dL Comment: Interpretive Data Glucose is assumed to be non-fasting. Fasting Glucose reference ranges are: 0 - 150 years: 70 mg/dL - 99 mg/dL Current interpretive data was last revised on 2014. POC Performer [id number] DAVID VIRGENWCH POC Device Number [id number] [facility] Blood 11/24/2024 7:48 AM CDT 11/24/2024 7:48 AM CDT Tavon Razo MD LAB POCT ORDERABLES - D EVICE Final Result DAVID VIRGENWCH [address] [facility]. Department [place] [address] * eGFR (11/24/2024 4:17 AM CDT) eGFR >90 >=60 mL/min/1. 73 m2 Comment: Interpretive Data Reference Interval Normal >/= 90 mL/min/1.73m2 Mildly decreased* 60 - 89 mL/min/1.73m2 Mildly to moderately decreased 45 - 59 mL/min/1.73m2 Moderately to severely decreased 30 - 44 mL/min/1.73m2 Severely decreased 15 - 29 mL/min/1.73m2 Kidney Failure < 15 mL/min/1.73m2 *Relative to young adult level Estimated glomerular filtration rate is determined by the 2020 CKD-EPI equation recommended by the National Kidney Foundation (A Unifying Approach to GFR Estimation: Recommendations of the NKF-ASK Task Force on Reassessing the Inclusion of Race in Diagnosing Kidney Disease, JASN 2020). The CKD-EPI equation should not be used for patients with unstable renal function and has not been validated in children and those over 70. Current interpretive data was last reviewed 2021. Blood 11/24/2024 4:17 AM CDT 11/24/2024 4:25 AM CDT us Tavon Razo MD LAB BLOOD ORDERABLES Fi nal Result DAVID SWEENEY [address] [facility]. [place] [address] * (ABNORMAL) Differential, auto (11/24/2024 4:17 AM CDT) Neutrophil abs 1.46(L) 1.50 - 6.50 K/cumm Imm gran abs 0.01 0.00 - 0.10 K/cumm [facility] Lymphocyte abs 0.70(L) 0.80 - 3.30 K/cumm [facility] Monocyte abs 0.34 0.20 - 0.80 K/cumm [facility] Eosinophil abs 0.11 0.00 - 0.50 K/cumm [facility] Basophil abs 0.01 0.00 - 0.10 K/cumm [facility] Neutrophil pct 55.5 % [facility] Comment: Interpretive Data Percent cell count reference ranges are not reported, since discordance with absolute values may lead to misinterpretation of CBC data. Current Interpretive Data was last revised on 2017. Imm gran pct 0.4 % [facility] Comment: Interpretive Data Percent cell count reference ranges are not reported, since discordance with absolute values may lead to misinterpretation of CBC data. Current Interpretive Data was last revised on 2017. Lymphocyte pct 26.6 % DAVID VIRGENCH Comment: Interpretive Data Percent cell count reference ranges are not reported, since discordance with absolute values may lead to misinterpretation of CBC data. Current Interpretive Data was last revised on 2017. Monocyte pct 12.9 % [facility] Comment: Interpretive Data Percent cell count reference ranges are not reported, since discordance with absolute values may lead to misinterpretation of CBC data. Current Interpretive Data was last revised on 2017. Eosinophil pct 4.2 % [facility] Comment: Interpretive Data Percent cell count reference ranges are not reported, since discordance with absolute values may lead to misinterpretation of CBC data. Current Interpretive Data was last revised on 2017. Basophil pct 0.4 % [facility] Comment: Interpretive Data Percent cell count reference ranges are not reported, since discordance with absolute values may lead to misinterpretation of CBC data. Current Interpretive Data was last revised on 2017. Blood 11/24/2024 4:17 AM CDT 11/24/2024 4:25 AM CDT Tavon Razo MD LAB BLOOD ORDERABLES Fi nal Result [facility] [address] [facility]. Department [place] [address] * (ABNORMAL) CBC with auto differential (11/24/2024 4:17 AM CDT) WBC 2.63(L) 3.80 - 9.90 K/cumm Hgb 9.8(L) 13.0 - 17.5 g/dL [facility] Hct 32.2(L) 38.9 - 50.3 % [facility] Plt 118(L) 150 - 400 K/cumm [facility] MPV 9.8 9.1 - 12.3 fL [facility] RBC 3.93(L) 4.30 - 5.80 M/cumm [facility] MCV 81.9 81.3 - 96.4 fL [facility] MCH 24.9(L) 27.1 - 33.3 pg [facility] MCHC 30.4(L) 32.3 - 35.7 g/dL [facility] RDW CV 17.2(H) 11.1 - 14.9 % [facility] RDW SD 51.7(H) 35.7 - 48.1 fL [facility] NRBC abs 0.00 0.00 - 0.01 K/cumm [facility] Blood 11/24/2024 4:17 AM CDT 11/24/2024 4:25 AM CDT Tavon Razo MD LAB BLOOD ORDERABLES Fi nal Result DAVID PEOPLES [address] [address]. Department [place] [address] * (ABNORMAL) Comprehensive metabolic panel (11/24/2024 4:17 AM CDT) Sodium 142 135 - 145 mmol/L Potassium, pl 4.0 3.3 - 4.9 mmol/L [facility] Chloride 107 97 - 110 mmol/L [facility] CO2 26 22 - 32 mmol/L [facility] Anion gap 9 2 - 15 mmol/L [facility] BUN 8 6 - 25 mg/dL [facility] Creatinine 0.60(L) 0.80 - 1.30 mg/dL [facility] Glucose 136 70 - 199 mg/dL [facility] Comment: Interpretive Data Fasting glucose >/= 126 mg/dl is diagnostic for diabetes. Fasting is defined as no caloric intake for at least 8 hours. Fasting glucose between 100 mg/dl to 125 mg/dl is diagnostic of prediabetes. In a patient with classic symptoms of hyperglycemia or hyperglycemic crisis, a random glucose >/= 200 mg/dl is diagnostic for diabetes. In the absence of unequivocal hyperglycemia, results should be confirmed by repeat testing. The classification and Diagnosis of Diabetes Diabetes Care 202; 46: S19-S40. Current interpretive data was last revised 2022. Calcium 8.8 8.5 - 10.3 mg/dL [facility] Bilirubin, total 0.3 0.1 - 1.2 mg/dL [facility] Protein, pl 5.6(L) 6.5 - 8.5 g/dL [facility] Albumin 3.2(L) 3.5 - 5.0 g/dL [facility] Alk phos 379(H) 40 - 130 Units/L [facility] ALT 30 7 - 55 Units/L [facility] AST 30 10 - 50 Units/L [facility] Blood 11/24/2024 4:17 AM CDT 11/24/2024 4:25 AM CDT Tavon Razo MD LAB BLOOD ORDERABLES Fi nal Result Performing Organization Address [facility] de Phone Number [facility] [address] [facility] [place] [address] * POCT glucose (11/23/2024 9:13 PM CDT) Glucose, POC 177 70 - 199 mg/dL Comment: Interpretive Data Glucose is assumed to be non-fasting. Fasting Glucose reference ranges are: 0 - 150 years: 70 mg/dL - 99 mg/dL Current interpretive data was last revised on 2014. POC Performer [id number] [facility] POC Device Number [id number] [facility] [employer] [facility] Blood 11/23/2024 9:13 PM CDT 11/23/2024 9:13 PM CDT Tavon Razo MD LAB POCT ORDERABLES - D EVICE Final Result Performing Organization Address [facility] de Phone Number [facility] [address] [facility]. [facility] [place] [place] [address] * POCT glucose (11/23/2024 4:27 PM CDT) Glucose, POC 177 70 - 199 mg/dL Comment: Interpretive Data Glucose is assumed to be non-fasting. Fasting Glucose reference ranges are: 0 - 150 years: 70 mg/dL - 99 mg/dL Current interpretive data was last revised on 2014. POC Performer [id number] [facility] [employer] [facility] POC Device Number [id number] [facility] Blood 11/23/2024 4:27 PM CDT 11/23/2024 4:27 PM CDT Tavon Razo MD LAB POCT ORDERABLES - D EVICE Final Result Performing Organization Address [facility] Co de Phone Number [facility] [address] [facility]. [facility] [place] [address] * (ABNORMAL) POCT glucose (11/23/2024 12:07 PM CDT) Glucose, POC 219(H) 70 - 199 mg/dL Comment: Interpretive Data Glucose is assumed to be non-fasting. Fasting Glucose reference ranges are: 0 - 150 years: 70 mg/dL - 99 mg/dL Current interpretive data was last revised on 2014. POC Performer [id number] [facility]ENTERNow TechnologiesBROOKS [facility] POC Device Number [id number] [facility] Blood 11/23/2024 12:0 7 PM CDT 11/23/2024 12:07 PM CDT Tavon Razo MD LAB POCT ORDERABLES - D EVICE Final Result Performing Organization Address [facility] de Phone Number [facility] [address] [facility] [place] [address] * POCT glucose (11/23/2024 7:37 AM CDT) Glucose, POC 99 70 - 199 mg/dL Comment: Interpretive Data Glucose is assumed to be non-fasting. Fasting Glucose reference ranges are: 0 - 150 years: 70 mg/dL - 99 mg/dL Current interpretive data was last revised on 2014. POC Performer [id number] [facility] POC Device Number [id number] [facility] Blood 11/23/2024 7:37 AM CDT 11/23/2024 7:37 AM CDT Tavon Razo MD LAB POCT ORDERABLES - D EVICE Final Result Performing Organization Address City/[facility] Co de Phone Number [facility] [address] [facility] [place] [address] * eGFR (11/23/2024 4:01 AM CDT) eGFR >90 >=60 mL/min/1. 73 m2 Comment: Interpretive Data Reference Interval Normal >/= 90 mL/min/1.73m2 Mildly decreased* 60 - 89 mL/min/1.73m2 Mildly to moderately decreased 45 - 59 mL/min/1.73m2 Moderately to severely decreased 30 - 44 mL/min/1.73m2 Severely decreased 15 - 29 mL/min/1.73m2 Kidney Failure < 15 mL/min/1.73m2 *Relative to young adult level Estimated glomerular filtration rate is determined by the 2020 CKD-EPI equation recommended by the National Kidney Foundation (A Unifying Approach to GFR Estimation: Recommendations of the NKF-ASK Task Force on Reassessing the Inclusion of Race in Diagnosing Kidney Disease, JASN 2020). The CKD-EPI equation should not be used for patients with unstable renal function and has not been validated in children and those over 70. Current interpretive data was last reviewed 2021. Blood 11/23/2024 4:01 AM CDT 11/23/2024 4:05 AM CDT Tavon Razo MD LAB BLOOD ORDERABLES nal Result [facility] [address] [facility]. Department [place] [address] * (ABNORMAL) Differential, auto (11/23/2024 4:01 AM CDT) Pathologist [facility] Neutrophil abs 1.51 1.50 - 6.50 K/cumm Imm gran abs 0.01 0.00 - 0.10 K/cumm [facility] Lymphocyte abs 0.63(L) 0.80 - 3.30 K/cumm [facility] Monocyte abs 0.32 0.20 - 0.80 K/cumm [facility] Eosinophil abs 0.09 0.00 - 0.50 K/cumm [facility] Basophil abs 0.01 0.00 - 0.10 K/cumm [facility] Neutrophil pct 58.7 % [facility] Comment: Interpretive Data Percent cell count reference ranges are not reported, since discordance with absolute values may lead to misinterpretation of CBC data. Current Interpretive Data was last revised on 2017. Imm gran pct 0.4 % [facility] Comment: Interpretive Data Percent cell count reference ranges are not reported, since discordance with absolute values may lead to misinterpretation of CBC data. Current Interpretive Data was last revised on 2017. Lymphocyte pct 24.5 % [facility] Comment: Interpretive Data Percent cell count reference ranges are not reported, since discordance with absolute values may lead to misinterpretation of CBC data. Current Interpretive Data was last revised on 2017. Monocyte pct 12.5 % [facility] Comment: Interpretive Data Percent cell count reference ranges are not reported, since discordance with absolute values may lead to misinterpretation of CBC data. Current Interpretive Data was last revised on 2017. Eosinophil pct 3.5 % [facility] Comment: Interpretive Data Percent cell count reference ranges are not reported, since discordance with absolute values may lead to misinterpretation of CBC data. Current Interpretive Data was last revised on 2017. Basophil pct 0.4 % [facility] Comment: Interpretive Data Percent cell count reference ranges are not reported, since discordance with absolute values may lead to misinterpretation of CBC data. Current Interpretive Data was last revised on 2017. Blood 11/23/2024 4:01 AM CDT 11/23/2024 4:05 AM CDT Tavon Razo MD LAB BLOOD ORDERABLES nal Result [facility] [address] [facility] Department [place] [address] * (ABNORMAL) CBC with auto differential (11/23/2024 4:01 AM CDT) WBC 2.57(L) 3.80 - 9.90 K/cumm Hgb 9.9(L) 13.0 - 17.5 g/dL [facility] Hct 32.0(L) 38.9 - 50.3 % [facility] Plt 120(L) 150 - 400 K/cumm [facility] MPV 10.0 9.1 - 12.3 fL [facility] RBC 3.84(L) 4.30 - 5.80 M/cumm [facility] MCV 83.3 81.3 - 96.4 fL [facility] MCH 25.8(L) 27.1 - 33.3 pg [facility] MCHC 30.9(L) 32.3 - 35.7 g/dL [facility] RDW CV 17.2(H) 11.1 - 14.9 % [facility] RDW SD 52.0(H) 35.7 - 48.1 fL [facility] NRBC abs 0.00 0.00 - 0.01 K/cumm [facility] Blood 11/23/2024 4:01 AM CDT 11/23/2024 4:05 AM CDT Tavon Razo MD LAB BLOOD ORDERABLES nal Result [facility] [address] [facility]. Department [place] [address] * (ABNORMAL) Comprehensive metabolic panel (11/23/2024 4:01 AM CDT) Sodium 139 135 - 145 mmol/L Potassium, pl 4.1 3.3 - 4.9 mmol/L [facility] Chloride 107 97 - 110 mmol/L [facility] CO2 22 22 - 32 mmol/L [facility] Anion gap 10 2 - 15 mmol/L [facility] BUN 7 6 - 25 mg/dL [facility] Creatinine 0.50(L) 0.80 - 1.30 mg/dL [facility] Glucose 109 70 - 199 mg/dL [facility] Comment: Interpretive Data Fasting glucose >/= 126 mg/dl is diagnostic for diabetes. Fasting is defined as no caloric intake for at least 8 hours. Fasting glucose between 100 mg/dl to 125 mg/dl is diagnostic of prediabetes. In a patient with classic symptoms of hyperglycemia or hyperglycemic crisis, a random glucose >/= 200 mg/dl is diagnostic for diabetes. In the absence of unequivocal hyperglycemia, results should be confirmed by repeat testing. The classification and Diagnosis of Diabetes Diabetes Care 2021; 46: S19-S40. Current interpretive data was last revised 2022. Calcium 9.0 8.5 - 10.3 mg/dL [facility] Bilirubin, total 0.3 0.1 - 1.2 mg/dL [facility] Protein, pl 5.6(L) 6.5 - 8.5 g/dL [facility] Albumin 3.1(L) 3.5 - 5.0 g/dL [facility] Alk phos 388(H) 40 - 130 Units/L [facility] ALT 32 7 - 55 Units/L [facility] AST 33 10 - 50 Units/L [facility] Blood 11/23/2024 4:01 AM CDT 11/23/2024 4:05 AM CDT Tavon Razo MD LAB BLOOD ORDERABLES Fi nal Result [facility] [address] [facility] Department [place] [address] * Respiratory pathogen panel Nasopharyngeal (11/22/2024 11:01 PM CDT) Influenza A RNA Not Detected Not Detected [facility] Comment:Testing performed by : [facility], [address] [place] [address]., [id number] Influenza B RNA Not Detected Not Detected [facility] Comment:Testing performed by : [facility], [address] [place] [address]., [id number] RSV RNA Not Detected Not Detected [facility] Comment:Testing performed by : [facility], [address] [place] [address]., [id number] COVID-19 RNA Not Detected Not Detected [facility] Comment:Testing performed by : [facility], [address] [place] [address]., [address] Coronavirus 229E RNA Not Detected Not Detected [facility] Comment:Testing performed by : [facility], [address] [place] [address]., [id number] Coronavirus HKU1 RNA Not Detected Not Detected [facility] Comment:Testing performed by : [facility], [address] [place] [address]., [id number] Coronavirus NL63 RNA Not Detected Not Detected [facility] Comment:Testing performed by : [facility], [address] [place] [address]., [address] Coronavirus OC43 RNA Not Detected Not Detected [facility] Comment:Testing performed by : [facility], [address] [place] [address]., [id number] Adenovirus DNA Not Detected Not Detected [facility] Comment:Testing performed by : [facility], [address] [place] [address]., [phone] Metapneumovirus RNA Not Detected Not Detected [facility] Comment:Testing performed by : [facility], [address] [place] [address]., [address] Rhinovirus/Enterov irus RNA Not Detected Not Detected [facility] Comment:Testing performed by : [facility], [address] [place] [address]., [address] Parainfluenza 1 RNA Not Detected Not Detected [facility] Comment:Testing performed by : [facility], [address] [place] [address]., [address] Parainfluenza 2 RNA Not Detected Not Detected [facility] Comment:Testing performed by : [facility], [address] [place] [address]., [address] Parainfluenza 3 RNA Not Detected Not Detected [facility] Comment:Testing performed by : [facility], [address] [place] [address]., [address] Parainfluenza 4 RNA Not Detected Not Detected [facility] Comment:Testing performed by : [facility], [address] [place] [address]., [address] B. pertussis DNA Not Detected Not Detected [facility] Comment:Testing performed by : [facility], [facility] [place]., [address] B. parapertussis DNA Not Detected Not Detected [facility] Comment:Testing performed by : [facility], [address] [place] [address]., [address] C. pneumoniae DNA Not Detected Not Detected [facility] Comment:Testing performed by : [facility], [address] [place] [address]., [id number] M. pneumoniae DNA Not Detected Not Detected [facility] Comment: Interpretive Data The [employer] FilmArray Respiratory Panel (RP2.1) assay is a multiplexed real-time PCR based nucleic acid test capable of simultaneous qualitative detection and identification of multiple respiratory viral and bacterial nucleic acids, including SARS Coronavirus 2 (the causative agent of COVID-19). The following bacteria, viruses and virus subtypes can be identified using the FilmArray RP2.1 assay: Bordetella pertussis, Bordetella parapertussis, Chlamydia pneumoniae, Mycoplasma pneumoniae, Adenovirus, SARS Coronavirus 2, seasonal coronaviruses (Coronavirus HKU1, Coronavirus NL63, Coronavirus 229E, and Coronavirus OC43), Influenza A, Influenza A subtype H1, Influenza A subtype H3, Influenza A subtype 2009 H1, Influenza B, Metapneumovirus, Parainfluenza 1, Parainfluenza 2, Parainfluenza 3, Parainfluenza 4, RSV, Rhinovirus/Enterovirus. Due to the genetic similarity between human Rhinovirus and Enterovirus, the FilmArray RP2.1 assay cannot reliably differentiate them. Coronavirus OC43 may cross-react with some isolates of Coronavirus HKU1. A dual positive result may be due to cross-reactivity or may indicate a co- infection. The detection and identification of specific viral and bacterial nucleic acids from individuals exhibiting signs and symptoms of a respiratory infection aids in the diagnosis of respiratory infection if used in conjunction with other clinical and epidemiological information. The results of this test should not be used as the sole basis for diagnosis, treatment, or other management decisions. Negative results in the setting of a respiratory illness may be due to infection with pathogens that are not detected by this test. Positive results do not rule out infection/co-infection with other organisms. The agent(s) detected by the FilmArray RP2.1 may not be the definite cause of disease. Additional testing (lab, imaging, etc.) may be necessary when evaluating a patient with possible respiratory tract infection. The FilmArray RP2.1 assay has FDA clearance for testing of RIVETER HAND swabs. The performance characteristics of this assay have been determined by [facility]. Current interpretive data was last revised on 2021. Testing performed by: [facility], [address] [place] [address], [place]., [address] Nasopharyngeal 11/22/2024 11 :01 PM CDT 11/23/2024 3:57 AM CDT Narrative [facility] - 11/23/2024 4:49 AM CDT Is the Patient experiencing symptoms consistent with COVID?->Unknown Surveillance testing for transplant patient?->No Rosa Camp MD LAB MICROBIOLOGY - GENERAL ORDERABLES Final Result Performing Organization Address [facility]/ZIP Co de Phone Number [facility] [address] [employer] [address] [facility] * (ABNORMAL) POCT glucose (11/22/2024 8:35 PM CDT) [facility] Glucose, POC 206(H) 70 - 199 mg/dL Comment: Interpretive Data Glucose is assumed to be non-fasting. Fasting Glucose reference ranges are: 0 - 150 years: 70 mg/dL - 99 mg/dL Current interpretive data was last revised on 2014. POC Performer [id number] [facility] POC Device Number [id number] [facility] Blood 11/22/2024 8:35 PM CDT 11/22/2024 8:35 PM CDT Tavon Razo MD LAB POCT ORDERABLES - D EVICE Final Result Performing Organization Address [facility]/ZIP Co de Phone Number [facility] [address] [employer] [address] * POCT glucose (11/22/2024 4:25 PM CDT) Glucose, POC 113 70 - 199 mg/dL Comment: Interpretive Data Glucose is assumed to be non-fasting. Fasting Glucose reference ranges are: 0 - 150 years: 70 mg/dL - 99 mg/dL Current interpretive data was last revised on 2014. POC Performer [id number] [facility] POC Device Number [id number] [facility] Blood 11/22/2024 4:25 PM CDT 11/22/2024 4:25 PM CDT Tavon Razo MD LAB POCT ORDERABLES - D EVICE Final Result Performing Organization Address [facility] Co de Phone Number [facility] [address] [facility] [employer] [place], [place] [id number] * POCT glucose (11/22/2024 1:08 PM CDT) Glucose, POC 165 70 - 199 mg/dL Comment: Interpretive Data Glucose is assumed to be non-fasting. Fasting Glucose reference ranges are: 0 - 150 years: 70 mg/dL - 99 mg/dL Current interpretive data was last revised on 2014. POC Performer [id number] [facility] POC Device Number [id number] [facility] Blood 11/22/2024 1:08 PM CDT 11/22/2024 1:08 PM CDT Tavon Razo MD LAB POCT ORDERABLES - D EVICE Final Result Performing Organization Address City/[facility]/ZIP Co de Phone Number [facility] [address] [facility] [employer] [place], [place] [id number] * ECG 12 lead (11/22/2024 10:08 AM CDT) 11/22/2024 10:0 8 AM CDT [facility]ative [facility] - 11/23/2024 2:41 PM CDT Vent Rate: 60 bpm RR Interval: 998 msec VA Interval: 279 msec QRS Duration: 169 msec QT Interval: 484 msec QTC Interval: 484 msec P-R-T [place]: 113 - -51 - -11 degrees IMPRESSION: ELECTRONIC ATRIAL PACEMAKER RIGHT BUNDLE BRANCH BLOCK LEFT ANTERIOR FASCICULAR BLOCK ABNORMAL ECG Electronically Signed By: Gautam Hope MD Tavon Razo MD ECG ORDERABLES Final R esult Performing Organization Address [facility] Co de Phone Number [facility] * POCT glucose (11/22/2024 8:54 AM CDT) Glucose, POC 92 70 - 199 mg/dL Comment: Interpretive Data Glucose is assumed to be non-fasting. Fasting Glucose reference ranges are: 0 - 150 years: 70 mg/dL - 99 mg/dL Current interpretive data was last revised on 2014. POC Performer [id number] [facility] POC Device Number [id number] [facility] Blood 11/22/2024 8:54 AM CDT 11/22/2024 8:54 AM CDT Tavon Razo MD LAB POCT ORDERABLES - D EVICE Final Result Performing Organization Address [facility] Co de Phone Number [facility] [address] [facility] Department [place] [address] * POCT glucose (11/22/2024 4:24 AM CDT) Glucose, POC 95 70 - 199 mg/dL Comment: Interpretive Data Glucose is assumed to be non-fasting. Fasting Glucose reference ranges are: 0 - 150 years: 70 mg/dL - 99 mg/dL Current interpretive data was last revised on 2014. POC Performer [id number] [facility] POC Device Number [id number] [employer] Blood 11/22/2024 4:24 AM CDT 11/22/2024 4:24 AM CDT Tavon Razo MD LAB POCT ORDERABLES - D EVICE Final Result Performing Organization Address [facility] Co de Phone Number [facility] [address] [address] [facility] [employer] [place] [address] * eGFR (11/22/2024 4:21 AM CDT) eGFR >90 >=60 mL/min/1. 73 m2 Comment: Interpretive Data Reference Interval Normal >/= 90 mL/min/1.73m2 Mildly decreased* 60 - 89 mL/min/1.73m2 Mildly to moderately decreased 45 - 59 mL/min/1.73m2 Moderately to severely decreased 30 - 44 mL/min/1.73m2 Severely decreased 15 - 29 mL/min/1.73m2 Kidney Failure < 15 mL/min/1.73m2 *Relative to young adult level Estimated glomerular filtration rate is determined by the 2020 CKD-EPI equation recommended by the National Kidney Foundation (A Unifying Approach to GFR Estimation: Recommendations of the NKF-ASK Task Force on Reassessing the Inclusion of Race in Diagnosing Kidney Disease, JASN 2020). The CKD-EPI equation should not be used for patients with unstable renal function and has not been validated in children and those over 70. Current interpretive data was last reviewed 2021. Blood 11/22/2024 4:21 AM CDT 11/22/2024 4:33 AM CDT Tavon Razo MD LAB BLOOD ORDERABLES Fi nal Result Performing Organization Address City/[facility]/ZIP Co de Phone Number [facility] [phone] [employer] Department [place] [address] * (ABNORMAL) Differential, auto (11/22/2024 4:21 AM CDT) Neutrophil abs 1.38(L) 1.50 - 6.50 K/cumm Imm gran abs 0.00 0.00 - 0.10 K/cumm [facility] Lymphocyte abs 0.55(L) 0.80 - 3.30 K/cumm [facility] Monocyte abs 0.35 0.20 - 0.80 K/cumm [facility] Eosinophil abs 0.10 0.00 - 0.50 K/cumm [facility] Basophil abs 0.01 0.00 - 0.10 K/cumm [facility] Neutrophil pct 57.8 % [facility] Comment: Interpretive Data Percent cell count reference ranges are not reported, since discordance with absolute values may lead to misinterpretation of CBC data. Current Interpretive Data was last revised on 2017. Imm gran pct 0.0 % [facility] Comment: Interpretive Data Percent cell count reference ranges are not reported, since discordance with absolute values may lead to misinterpretation of CBC data. Current Interpretive Data was last revised on 2017. Lymphocyte pct 23.0 % [facility] Comment: Interpretive Data Percent cell count reference ranges are not reported, since discordance with absolute values may lead to misinterpretation of CBC data. Current Interpretive Data was last revised on 2017. Monocyte pct 14.6 % [facility] Comment: Interpretive Data Percent cell count reference ranges are not reported, since discordance with absolute values may lead to misinterpretation of CBC data. Current Interpretive Data was last revised on 2017. Eosinophil pct 4.2 % [facility] Comment: Interpretive Data Percent cell count reference ranges are not reported, since discordance with absolute values may lead to misinterpretation of CBC data. Current Interpretive Data was last revised on 2017. Basophil pct 0.4 % [facility] Comment: Interpretive Data Percent cell count reference ranges are not reported, since discordance with absolute values may lead to misinterpretation of CBC data. Current Interpretive Data was last revised on 2017. Blood 11/22/2024 4:21 AM CDT 11/22/2024 4:33 AM CDT Tavon Razo MD LAB BLOOD ORDERABLES Fi nal Result [facility] [address] Department [place] [address] * (ABNORMAL) CBC with auto differential (11/22/2024 4:21 AM CDT) [facility] WBC 2.39(L) 3.80 - 9.90 K/cumm Hgb 10.3(L) 13.0 - 17.5 g/dL [facility] Hct 34.5(L) 38.9 - 50.3 % [facility] Plt 114(L) 150 - 400 K/cumm [facility] MPV 10.0 9.1 - 12.3 fL [facility] W RBC 4.10(L) 4.30 - 5.80 M/cumm [facility] MCV 84.1 81.3 - 96.4 fL [facility] MCH 25.1(L) 27.1 - 33.3 pg [facility] W MCHC 29.9(L) 32.3 - 35.7 g/dL [facility] RDW CV 17.1(H) 11.1 - 14.9 % [facility] RDW SD 52.8(H) 35.7 - 48.1 fL [facility] NRBC abs 0.00 0.00 - 0.01 K/cumm [facility] Blood 11/22/2024 4:21 AM CDT 11/22/2024 4:33 AM CDT Tavon Razo MD LAB BLOOD ORDERABLES Fi nal Result [facility] [address] [facility]. Department [place] [address] * (ABNORMAL) Comprehensive metabolic panel (11/22/2024 4:21 AM CDT) [facility] Sodium 140 135 - 145 mmol/L Potassium, pl 3.6 3.3 - 4.9 mmol/L [facility] Chloride 109 97 - 110 mmol/L [facility] CO2 22 22 - 32 mmol/L [facility] Anion gap 9 2 - 15 mmol/L [facility] BUN 4(L) 6 - 25 mg/dL [facility] Creatinine 0.62(L) 0.80 - 1.30 mg/dL [facility] Glucose 117 70 - 199 mg/dL [facility] Comment: Interpretive Data Fasting glucose >/= 126 mg/dl is diagnostic for diabetes. Fasting is defined as no caloric intake for at least 8 hours. Fasting glucose between 100 mg/dl to 125 mg/dl is diagnostic of prediabetes. In a patient with classic symptoms of hyperglycemia or hyperglycemic crisis, a random glucose >/= 200 mg/dl is diagnostic for diabetes. In the absence of unequivocal hyperglycemia, results should be confirmed by repeat testing. The classification and Diagnosis of Diabetes Diabetes Care 202; 46: S19-S40. Current interpretive data was last revised 2022. Calcium 8.3(L) 8.5 - 10.3 mg/dL [facility] Bilirubin, total 0.4 0.1 - 1.2 mg/dL [facility] Protein, pl 5.7(L) 6.5 - 8.5 g/dL [facility] Albumin 3.0(L) 3.5 - 5.0 g/dL [facility] Alk phos 375(H) 40 - 130 Units/L [facility] ALT 31 7 - 55 Units/L [facility] AST 31 10 - 50 Units/L [facility] Blood 11/22/2024 4:21 AM CDT 11/22/2024 4:33 AM CDT Tavon Razo MD LAB BLOOD ORDERABLES Fi nal Result [facility] [address] [facility]. Department [place] [address] * POCT glucose (11/22/2024 12:27 AM CDT) [facility] Glucose, POC 113 70 - 199 mg/dL Comment: Interpretive Data Glucose is assumed to be non-fasting. Fasting Glucose reference ranges are: 0 - 150 years: 70 mg/dL - 99 mg/dL Current interpretive data was last revised on 2014. POC Performer [id number] [facility]Now [facility] POC Device Number [id number] [facility] Blood 11/22/2024 12:2 7 AM CDT 11/22/2024 12:27 AM CDT Tavon Razo MD LAB POCT ORDERABLES - D EVICE Final Result Performing Organization Address [facility] de Phone Number [facility] [address] [facility] [place] [address] * POCT glucose (11/21/2024 9:23 PM CDT) Glucose, POC 114 70 - 199 mg/dL Comment: Interpretive Data Glucose is assumed to be non-fasting. Fasting Glucose reference ranges are: 0 - 150 years: 70 mg/dL - 99 mg/dL Current interpretive data was last revised on 2014. POC Performer [id number] [facility] [employer] [facility] POC Device Number [id number] [facility] Blood 11/21/2024 9:23 PM CDT 11/21/2024 9:23 PM CDT Tavon Razo MD LAB POCT ORDERABLES - D EVICE Final Result Performing Organization Address [facility] de Phone Number [facility] [address] [facility] [place] [address] * POCT glucose (11/21/2024 4:32 PM CDT) Glucose, POC 91 70 - 199 mg/dL Comment: Interpretive Data Glucose is assumed to be non-fasting. Fasting Glucose reference ranges are: 0 - 150 years: 70 mg/dL - 99 mg/dL Current interpretive data was last revised on 2014. POC Performer [id number] [facility] POC Device Number [id number] DAVID [employer] [facility] Blood 11/21/2024 4:32 PM CDT 11/21/2024 4:32 PM CDT Tavon Razo MD LAB POCT ORDERABLES - D EVICE Final Result Performing Organization Address [facility] Phone Number DAVID VIRGENWCH [address] [facility] [place] [address] * POCT glucose (11/21/2024 12:21 PM CDT) [facility] Glucose, POC 118 70 - 199 mg/dL Comment: Interpretive Data Glucose is assumed to be non-fasting. Fasting Glucose reference ranges are: 0 - 150 years: 70 mg/dL - 99 mg/dL Current interpretive data was last revised on 2014. POC Performer [id number] [facility]ENTERNow TechnologiesBROOKS [facility] POC Device Number [id number] [facility] Blood 11/21/2024 12:2 1 PM CDT 11/21/2024 12:21 PM CDT Tavon Razo MD LAB POCT ORDERABLES - D EVICE Final Result Performing Organization Address [facility] Phone Number DAVID BJWCH [address] [facility] [place] [address] * XR Abdomen Ap 1 Vw (11/21/2024 12:07 PM CDT) Anatomical Region Laterality Modality Body, Abdomen N/A Computed Radiogr aphy 11/21/2024 12:3 7 PM CDT Impressions 11/21/2024 12:37 PM CDT The bilateral hemidiaphragms are largely excluded from the ozcaj-ih-uexk. There is mild gaseous distention of small bowel loops in the left hemiabdomen which may represent ileus. An endoscopic clip projects over the stomach. Bladder stimulator device projects over the right hemipelvis. Electronically signed by: Shahana Salguero M.D. Narrative 11/21/2024 12:37 PM CDT EXAMINATION: Abdomen, one view. HISTORY: Abdominal pain COMPARISON: CT dated 11/19/2024 Procedure Note Shahana Salguero MD - 11/21/2024 EXAMINATION: Abdomen, one view. HISTORY: Abdominal pain COMPARISON: CT dated 11/19/2024 IMPRESSION: The bilateral hemidiaphragms are largely excluded from the xpxyz-gj-xkme. There is mild gaseous distention of small bowel loops in the left hemiabdomen which may represent ileus. An endoscopic clip projects over the stomach. Bladder stimulator device projects over the right hemipelvis. Electronically signed by: Shahana Salguero M.D. Tavon Razo MD IMG XR PROCEDURES Final Result * POCT glucose (11/21/2024 8:13 AM CDT) Glucose, POC 111 70 - 199 mg/dL Comment: Interpretive Data Glucose is assumed to be non-fasting. Fasting Glucose reference ranges are: 0 - 150 years: 70 mg/dL - 99 mg/dL Current interpretive data was last revised on 2014. POC Performer [id number] DAVID VIRGENROSSANA POC Device Number [id number] [facility] Blood 11/21/2024 8:13 AM CDT 11/21/2024 8:13 AM CDT Tavon Razo MD LAB POCT ORDERABLES - D EVICE Final Result DAVID [facility]GENW[facility] [address] [facility]. Department [place] [address] * POCT glucose (11/21/2024 4:45 AM CDT) Glucose, POC 123 70 - 199 mg/dL Comment: Interpretive Data Glucose is assumed to be non-fasting. Fasting Glucose reference ranges are: 0 - 150 years: 70 mg/dL - 99 mg/dL Current interpretive data was last revised on 2014. POC Performer [id number] [facility] POC Device Number [id number] [facility] Blood 11/21/2024 4:45 AM CDT 11/21/2024 4:45 AM CDT Tavon Razo MD LAB POCT ORDERABLES - D EVICE Final Result Performing Organization Address [facility] Co de Phone Number DAVID [facility] [address] [facility] [employer] [place], [place] [id number] * eGFR (11/21/2024 2:54 AM CDT) Pathologist [facility] eGFR >90 >=60 mL/min/1. 73 m2 Comment: Interpretive Data Reference Interval Normal >/= 90 mL/min/1.73m2 Mildly decreased* 60 - 89 mL/min/1.73m2 Mildly to moderately decreased 45 - 59 mL/min/1.73m2 Moderately to severely decreased 30 - 44 mL/min/1.73m2 Severely decreased 15 - 29 mL/min/1.73m2 Kidney Failure < 15 mL/min/1.73m2 *Relative to young adult level Estimated glomerular filtration rate is determined by the 2020 CKD-EPI equation recommended by the National Kidney Foundation (A Unifying Approach to GFR Estimation: Recommendations of the NKF-ASK Task Force on Reassessing the Inclusion of Race in Diagnosing Kidney Disease, JASN 2020). The CKD-EPI equation should not be used for patients with unstable renal function and has not been validated in children and those over 70. Current interpretive data was last reviewed 2021. Blood 11/21/2024 2:54 AM CDT 11/21/2024 3:25 AM CDT Tavon Razo MD LAB BLOOD ORDERABLES Fi nal Result Performing Organization Address [facility]/ZIP Co de Phone Number DAVID BJW[facility] [address] [facility] Department [place] [address] * (ABNORMAL) Differential, auto (11/21/2024 2:54 AM CDT) Pathologist [facility] Neutrophil abs 1.41(L) 1.50 - 6.50 K/cumm Imm gran abs 0.00 0.00 - 0.10 K/cumm [facility] Lymphocyte abs 0.52(L) 0.80 - 3.30 K/cumm [facility] Monocyte abs 0.29 0.20 - 0.80 K/cumm [facility] Eosinophil abs 0.09 0.00 - 0.50 K/cumm [facility] Basophil abs 0.02 0.00 - 0.10 K/cumm [facility] Neutrophil pct 60.5 % [facility] Comment: Interpretive Data Percent cell count reference ranges are not reported, since discordance with absolute values may lead to misinterpretation of CBC data. Current Interpretive Data was last revised on 2017. Imm gran pct 0.0 % [facility] Comment: Interpretive Data Percent cell count reference ranges are not reported, since discordance with absolute values may lead to misinterpretation of CBC data. Current Interpretive Data was last revised on 2017. Lymphocyte pct 22.3 % [facility] Comment: Interpretive Data Percent cell count reference ranges are not reported, since discordance with absolute values may lead to misinterpretation of CBC data. Current Interpretive Data was last revised on 2017. Monocyte pct 12.4 % [facility] Comment: Interpretive Data Percent cell count reference ranges are not reported, since discordance with absolute values may lead to misinterpretation of CBC data. Current Interpretive Data was last revised on 2017. Eosinophil pct 3.9 % [facility] Comment: Interpretive Data Percent cell count reference ranges are not reported, since discordance with absolute values may lead to misinterpretation of CBC data. Current Interpretive Data was last revised on 2017. Basophil pct 0.9 % [facility] Comment: Interpretive Data Percent cell count reference ranges are not reported, since discordance with absolute values may lead to misinterpretation of CBC data. Current Interpretive Data was last revised on 2017. Blood 11/21/2024 2:54 AM CDT 11/21/2024 3:25 AM CDT Tavon Razo MD LAB BLOOD ORDERABLES Fi nal Result DAVID [facility] [address] [facility] [employer] [place], [place] [id number] * (ABNORMAL) CBC with auto differential (11/21/2024 2:54 AM CDT) WBC 2.33(L) 3.80 - 9.90 K/cumm Hgb 10.4(L) 13.0 - 17.5 g/dL [facility] Hct 35.3(L) 38.9 - 50.3 % [facility] Plt 144(L) 150 - 400 K/cumm [facility] MPV 10.9 9.1 - 12.3 fL [facility] RBC 4.21(L) 4.30 - 5.80 M/cumm [facility] MCV 83.8 81.3 - 96.4 fL [facility] MCH 24.7(L) 27.1 - 33.3 pg [facility] MCHC 29.5(L) 32.3 - 35.7 g/dL [facility] RDW CV 17.4(H) 11.1 - 14.9 % [facility] RDW SD 53.1(H) 35.7 - 48.1 fL [facility] NRBC abs 0.00 0.00 - 0.01 K/cumm [facility] Blood 11/21/2024 2:54 AM CDT 11/21/2024 3:25 AM CDT Tavon Razo MD LAB BLOOD ORDERABLES Fi nal Result Performing Organization Address City/[facility]/ZIP Co de Phone Number DAVID [facility] [phone] [facility] [employer] [place], [place] [phone] * (ABNORMAL) Comprehensive metabolic panel (11/21/2024 2:54 AM CDT) Sodium 140 135 - 145 mmol/L Potassium, pl 3.9 3.3 - 4.9 mmol/L [facility] Chloride 108 97 - 110 mmol/L [facility] CO2 25 22 - 32 mmol/L [facility] Anion gap 8 2 - 15 mmol/L [facility] BUN 6 6 - 25 mg/dL [facility] Creatinine 0.64(L) 0.80 - 1.30 mg/dL [facility] Glucose 124 70 - 199 mg/dL [facility] Comment: Interpretive Data Fasting glucose >/= 126 mg/dl is diagnostic for diabetes. Fasting is defined as no caloric intake for at least 8 hours. Fasting glucose between 100 mg/dl to 125 mg/dl is diagnostic of prediabetes. In a patient with classic symptoms of hyperglycemia or hyperglycemic crisis, a random glucose >/= 200 mg/dl is diagnostic for diabetes. In the absence of unequivocal hyperglycemia, results should be confirmed by repeat testing. The classification and Diagnosis of Diabetes Diabetes Care 2021; 46: S19-S40. Current interpretive data was last revised 2022. Calcium 8.3(L) 8.5 - 10.3 mg/dL [facility] Bilirubin, total 0.4 0.1 - 1.2 mg/dL [facility] Protein, pl 5.9(L) 6.5 - 8.5 g/dL [facility] Albumin 3.3(L) 3.5 - 5.0 g/dL [facility] Alk phos 421(H) 40 - 130 Units/L [facility] ALT 39 7 - 55 Units/L [facility] AST 46 10 - 50 Units/L [facility] Blood 11/21/2024 2:54 AM CDT 11/21/2024 3:25 AM CDT us Tavon Razo MD LAB BLOOD ORDERABLES Fi nal Result DAVID [facility] [address] [facility]. Department [place] [address] * POCT glucose (11/20/2024 11:49 PM CDT) [facility] Glucose, POC 134 70 - 199 mg/dL Comment: Interpretive Data Glucose is assumed to be non-fasting. Fasting Glucose reference ranges are: 0 - 150 years: 70 mg/dL - 99 mg/dL Current interpretive data was last revised on 2014. POC Performer [id number] DAVID [facility] POC Device Number [id number] DAVID SWEENEYCH Blood 11/20/2024 11:4 9 PM CDT 11/20/2024 11:49 PM CDT Tavon Razo MD LAB POCT ORDERABLES - D EVICE Final Result Performing Organization Address [facility] de Phone Number [facility] [address] [facility] [employer] [place], [place] [id number] * POCT glucose (11/20/2024 8:31 PM CDT) Glucose, POC 189 70 - 199 mg/dL Comment: Interpretive Data Glucose is assumed to be non-fasting. Fasting Glucose reference ranges are: 0 - 150 years: 70 mg/dL - 99 mg/dL Current interpretive data was last revised on 2014. POC Performer [id number] DAVID [employer] [facility] POC Device Number [id number] [facility] Blood 11/20/2024 8:31 PM CDT 11/20/2024 8:31 PM CDT Tavon Razo MD LAB POCT ORDERABLES - D EVICE Final Result Performing Organization Address [facility] Co de Phone Number [facility] BJWCH [address] [facility] [employer] [place], [place] [phone] * POCT glucose (11/20/2024 3:59 PM CDT) Glucose, POC 158 70 - 199 mg/dL Comment: Interpretive Data Glucose is assumed to be non-fasting. Fasting Glucose reference ranges are: 0 - 150 years: 70 mg/dL - 99 mg/dL Current interpretive data was last revised on 2014. POC Performer [id number] [facility] POC Device Number [id number] [facility] Blood 11/20/2024 3:59 PM CDT 11/20/2024 3:59 PM CDT Tavon Razo MD LAB POCT ORDERABLES - D EVICE Final Result Performing Organization Address [facility] de Phone Number DAVID VIRGENWCH [address] [facility] [place] [address] * POCT glucose (11/20/2024 12:33 PM CDT) Glucose, POC 76 70 - 199 mg/dL Comment: Interpretive Data Glucose is assumed to be non-fasting. Fasting Glucose reference ranges are: 0 - 150 years: 70 mg/dL - 99 mg/dL Current interpretive data was last revised on 2014. POC Performer [id number] [facility]PET[facility] [employer] [facility] POC Device Number [id number] [facility] Blood 11/20/2024 12:3 3 PM CDT 11/20/2024 12:33 PM CDT Tavon Razo MD LAB POCT ORDERABLES - D EVICE Final Result Performing Organization Address [facility] de Phone Number [facility] CENTERPETAR VIRGENWCH [address] [facility] [place] [address] * POCT glucose (11/20/2024 9:00 AM CDT) Glucose, POC 85 70 - 199 mg/dL Comment: Interpretive Data Glucose is assumed to be non-fasting. Fasting Glucose reference ranges are: 0 - 150 years: 70 mg/dL - 99 mg/dL Current interpretive data was last revised on 2014. POC Performer [id number] DAVID [employer] [facility] POC Device Number [id number] [facility] Blood 11/20/2024 9:00 AM CDT 11/20/2024 9:00 AM CDT Tavon Razo MD LAB POCT ORDERABLES - D EVICE Final Result Performing Organization Address [facility] de Phone Number DAVID SWEENEYCH [address] [facility] [place] [address] * POCT glucose (11/20/2024 7:01 AM CDT) [facility] Glucose, POC 105 70 - 199 mg/dL Comment: Interpretive Data Glucose is assumed to be non-fasting. Fasting Glucose reference ranges are: 0 - 150 years: 70 mg/dL - 99 mg/dL Current interpretive data was last revised on 2014. POC Performer [id number] [facility] POC Device Number [id number] [facility] Blood 11/20/2024 7:01 AM CDT 11/20/2024 7:01 AM CDT Tavon Razo MD LAB POCT ORDERABLES - D EVICE Final Result Performing Organization Address [facility] de Phone Number DAVID [facility] [address] [facility] [place] [address] * (ABNORMAL) Differential, auto (11/20/2024 6:03 AM CDT) [facility] Neutrophil abs 1.31(L) 1.50 - 6.50 K/cumm Imm gran abs 0.04 0.00 - 0.10 K/cumm [facility] Lymphocyte abs 0.49(L) 0.80 - 3.30 K/cumm [facility] Monocyte abs 0.32 0.20 - 0.80 K/cumm [facility]ERN[facility] Eosinophil abs 0.10 0.00 - 0.50 K/cumm [facility]ERN[facility] Basophil abs 0.01 0.00 - 0.10 K/cumm [facility] Neutrophil pct 57.7 % [facility] Comment: Interpretive Data Percent cell count reference ranges are not reported, since discordance with absolute values may lead to misinterpretation of CBC data. Current Interpretive Data was last revised on 2017. Imm gran pct 1.8 % DAVID PEOPLES Comment: Interpretive Data Percent cell count reference ranges are not reported, since discordance with absolute values may lead to misinterpretation of CBC data. Current Interpretive Data was last revised on 2017. Lymphocyte pct 21.6 % DAVID PEOPLES Comment: Interpretive Data Percent cell count reference ranges are not reported, since discordance with absolute values may lead to misinterpretation of CBC data. Current Interpretive Data was last revised on 2017. Monocyte pct 14.1 % DAVID PEOPLES Comment: Interpretive Data Percent cell count reference ranges are not reported, since discordance with absolute values may lead to misinterpretation of CBC data. Current Interpretive Data was last revised on 2017. Eosinophil pct 4.4 % DAVID PEOPLES Comment: Interpretive Data Percent cell count reference ranges are not reported, since discordance with absolute values may lead to misinterpretation of CBC data. Current Interpretive Data was last revised on 2017. Basophil pct 0.4 % DAVID PEOPLES Comment: Interpretive Data Percent cell count reference ranges are not reported, since discordance with absolute values may lead to misinterpretation of CBC data. Current Interpretive Data was last revised on 2017. Blood 11/20/2024 6:03 AM CDT 11/20/2024 6:06 AM CDT Kenyon Martínez MD LAB BLOOD ORDERABLES Final Result DAVID VIRGENWCH [address] [facility]. Department [place] [address] * (ABNORMAL) CBC with auto differential (11/20/2024 6:03 AM CDT) WBC 2.27(L) 3.80 - 9.90 K/cumm Hgb 10.3(L) 13.0 - 17.5 g/dL DAVID PEOPLES Hct 34.2(L) 38.9 - 50.3 % DVAID PEOPLES Plt 110(L) 150 - 400 K/cumm [facility] MPV 10.0 9.1 - 12.3 fL [facility] RBC 4.04(L) 4.30 - 5.80 M/cumm DAVID VIRGENW MCV 84.7 81.3 - 96.4 fL DAVID VIRGENW MCH 25.5(L) 27.1 - 33.3 pg [facility] MCHC 30.1(L) 32.3 - 35.7 g/dL DAVID VIRGENW RDW CV 17.3(H) 11.1 - 14.9 % DAVID VIRGENW RDW SD 53.7(H) 35.7 - 48.1 fL [facility] NRBC abs 0.00 0.00 - 0.01 K/cumm [facility] Blood 11/20/2024 6:03 AM CDT 11/20/2024 6:06 AM CDT Kenyon Martínez MD LAB BLOOD ORDERABLES Final Result Performing Organization Address [facility] Co de Phone Number DAVID VIRGENWCH [address] [facility] [place] [address] * (ABNORMAL) aPTT (11/20/2024 6:03 AM CDT) [facility] aPTT 40(H) 28 - 38 sec Comment: Interpretive Data Heparin therapeutic range: 66.0 - 100.0 seconds. Range based on correlation with therapeutic heparin activity range of 0.3 - 0.7 Units/mL. Current interpretive data was last revised on 2023. Blood 11/20/2024 6:03 AM CDT 11/20/2024 6:06 AM CDT Kenyon Martínez MD LAB BLOOD ORDERABLES Final Result Performing Organization Address [facility] Co de Phone Number DAVID BJW[facility] [phone] [facility] [employer] [place] [address] * Protime-INR (11/20/2024 6:03 AM CDT) PT 12.4 9.7 - 13.0 sec INR 1.14 0.90 - 1.20 [facility] Comment: Interpretive data Oral anticoagulant therapeutic ranges: Venous thromboembolism prophylaxis or treatment: 2.0-3.0 CARDIOLOGY Standard range: 2.0-3.0 High-intensity range: 2.5-3.5 Refer to indication-specific guidelines for appropriate target ranges for prosthetic heart valve replacement. Current interpretive data was last revised on 2019. Blood 11/20/2024 6:03 AM CDT 11/20/2024 6:06 AM CDT Kenyon Martínez MD LAB BLOOD ORDERABLES Final Result Performing Organization Address [facility] Co de Phone Number [facility] [address] [facility] [employer] [place], [place] [phone] * POCT glucose (11/20/2024 4:04 AM CDT) Glucose, POC 91 70 - 199 mg/dL Comment: Interpretive Data Glucose is assumed to be non-fasting. Fasting Glucose reference ranges are: 0 - 150 years: 70 mg/dL - 99 mg/dL Current interpretive data was last revised on 2014. POC Performer [id number] [facility] P[facility] Device Number [id number] [facility] Blood 11/20/2024 4:04 AM CDT 11/20/2024 4:04 AM CDT Tavon Razo MD LAB POCT ORDERABLES - D EVICE Final Result Performing Organization Address [facility] Co de Phone Number [facility] [address] [facility] [employer] [place], [place] [phone] * POCT glucose (11/19/2024 11:17 PM CDT) Glucose, POC 89 70 - 199 mg/dL Comment: Interpretive Data Glucose is assumed to be non-fasting. Fasting Glucose reference ranges are: 0 - 150 years: 70 mg/dL - 99 mg/dL Current interpretive data was last revised on 2014. POC Performer [id number] CERNER [employer] POC Device Number [id number] [facility] Blood 11/19/2024 11:1 7 PM CDT 11/19/2024 11:17 PM CDT Tavon Razo MD LAB POCT ORDERABLES - D EVICE Final Result Performing Organization Address [facility] de Phone Number DAVID BJW[facility] [address] [facility] [employer] [place], [place] [id number] * POCT glucose (11/19/2024 8:28 PM CDT) Glucose, POC 96 70 - 199 mg/dL Comment: Interpretive Data Glucose is assumed to be non-fasting. Fasting Glucose reference ranges are: 0 - 150 years: 70 mg/dL - 99 mg/dL Current interpretive data was last revised on 2014. POC Performer [id number] [facility]PET[facility] [employer] [facility] POC Device Number [id number] [facility] Blood 11/19/2024 8:28 PM CDT 11/19/2024 8:28 PM CDT Tavon Razo MD LAB POCT ORDERABLES - D EVICE Final Result Performing Organization Address [facility] de Phone Number DAVID BJW[facility] [address] [facility] [place] [address] * Urinalysis reflex to microscopic and culture Urine (11/19/2024 6:57 PM CDT) Color, ur Straw Yellow Clarity, ur Clear Clear [facility]ID [facility] Specific gravity, ur 1.020 1.003 - 1.030 DAVID [facility] pH, urine 6.5 DAVID SWEENEYCH Comment: Interpretive Data U rine pH is affected by diet, medications, systemic acid-base disturbances, and renal tubular function. pH may affect urinary stone formation. For example, urine pH below 6.0 may help reduce the tendency for calcium phosphate stones and pH greater than 6.0 may reduce the tendency for uric acid stone formation. Source: [facility] Current Interpretive Data was last revised on 2017 Protein, ur ql Trace Negative [facility] Glucose, ur ql Negative Negative [facility] Ketones, ur Negative Negative [facility] Bilirubin, ur Negative Negative [facility] Blood, ur Negative Negative [facility] Urobilinogen, ur <2.0 <2.0 mg/dL [facility] Nitrite, ur Negative Negative [facility] Leukocyte esterase, ur Negative Negative [facility] UA reflex comment Reflex conditions for microscopic UA and culture not met. CERNER W Urine 11/19/2024 6:57 PM CDT 11/19/2024 6:59 PM CDT Ktaie Jung MD LAB MICROBIOLOGY - GENERAL O RDERABLES Final Result Performing Organization Address [facility] Co de Phone Number [facility] [address] [facility]. [employer] [place] [address] * Lactate (11/19/2024 3:43 PM CDT) Lactate 1.1 0.7 - 2.0 mmol/L Blood 11/19/2024 3:43 PM CDT 11/19/2024 3:49 PM CDT us Ivanna WAYNE LAB BLOOD ORDERABLES Final Result Performing Organization Address [facility] de Phone Number [facility] BJW[facility] [address] [facility]. Department [place] [address] * CT Abdomen Pelvis W Contrast (11/19/2024 1:51 PM CDT) Anatomical Region Laterality Modality Body N/A Computed Tomogra phy 11/19/2024 2:45 PM CDT Impressions 11/19/2024 2:57 PM CDT 1. Surgical changes of Whipple with unchanged soft tissue thickening in the surgical bed and along the celiac axis. Unchanged mass effect on the portosplenic confluence. 2. Hypoenhancement of the colon at the splenic flexure may reflect ischemia. 3. Diffuse mesenteric stranding, slightly increased from prior, may be the sequela increased volume status or the result of venous congestion. Dictated by: Denzel Hayes MD The radiology attending physician has personally reviewed this study, and had reviewed and/or edited this written report and agrees with it. Electronically signed by: Shabbir Jett M.D. Narrative 11/19/2024 2:57 PM CDT EXAMINATION: Computed tomography of the abdomen and pelvis with intravenous contrast HISTORY: Abdominal pain with bloody stool. Patient also with history of pancreatic adenocarcinoma status post Whipple procedure. TECHNIQUE: Transaxial computed tomographic images of the abdomen and pelvis were obtained with intravenous contrast according to the standard protocol after the uneventful administration of 100 mL Opti-Ray 350 intravenous contrast. COMPARISON: CT from 10/20/2024 FINDINGS: Imaged portion of the chest reveals pacemaker leads. Heart size is normal without pericardial effusion. Scattered mediastinal and pelvis are present. Mild atelectasis at the lung bases. No pleural effusion or pneumothorax. Pneumobilia in keeping with patient's history of Whipple procedure. No suspicious hepatic mass. Gallbladder is absent. Right adrenal gland, spleen within normal limits. Pancreas status post Whipple. Left adrenal nodule is unchanged measuring 1.2 cm. Padlock clip present in the stomach. Previously noted hemostatic clips along the lesser curvature of the stomach are no longer present. Kidneys enhance symmetrically without hydronephrosis. Bilateral nonobstructive nephrolithiasis present. Large and small bowel is nondilated without evidence of obstruction. There is hypoenhancing segment of colon at the splenic flexure when compared to other segments of the colon. There is no pneumoperitoneum. There is diffuse mesenteric stranding, increased when compared to prior study. Ill-defined soft tissue in the region of the celiac trunk/common hepatic artery with mass effect on the portosplenic confluence. Overall this mass effect appears similar when compared to prior exam. Bladder appears normal. Mildly prominent mesenteric lymph nodes. Normal caliber of the abdominal aorta with atherosclerotic calcifications. Sacral spinal stimulator is present. No aggressive osseous lesion. Fat-containing ventral hernia is unchanged. Unchanged soft tissue stranding at the right presacral area may be the sequela of prior inflammatory process and related to patient's history of neurofibromatosis. Procedure Note Shabbir Jett MD - 11/19/2024 EXAMINATION: Computed tomography of the abdomen and pelvis with intravenous contrast HISTORY: Abdominal pain with bloody stool. Patient also with history of pancreatic adenocarcinoma status post Whipple procedure. TECHNIQUE: Transaxial computed tomographic images of the abdomen and pelvis were obtained with intravenous contrast according to the standard protocol after the uneventful administration of 100 mL Opti-Ray 350 intravenous contrast. COMPARISON: CT from 10/20/2024 FINDINGS: Imaged portion of the chest reveals pacemaker leads. Heart size is normal without pericardial effusion. Scattered mediastinal and pelvis are present. Mild atelectasis at the lung bases. No pleural effusion or pneumothorax. Pneumobilia in keeping with patient's history of Whipple procedure. No suspicious hepatic mass. Gallbladder is absent. Right adrenal gland, spleen within normal limits. Pancreas status post Whipple. Left adrenal nodule is unchanged measuring 1.2 cm. Padlock clip present in the stomach. Previously noted hemostatic clips along the lesser curvature of the stomach are no longer present. Kidneys enhance symmetrically without hydronephrosis. Bilateral nonobstructive nephrolithiasis present. Large and small bowel is nondilated without evidence of obstruction. There is hypoenhancing segment of colon at the splenic flexure when compared to other segments of the colon. There is no pneumoperitoneum. There is diffuse mesenteric stranding, increased when compared to prior study. Ill-defined soft tissue in the region of the celiac trunk/common hepatic artery with mass effect on the portosplenic confluence. Overall this mass effect appears similar when compared to prior exam. Bladder appears normal. Mildly prominent mesenteric lymph nodes. Normal caliber of the abdominal aorta with atherosclerotic calcifications. Sacral spinal stimulator is present. No aggressive osseous lesion. Fat-containing ventral hernia is unchanged. Unchanged soft tissue stranding at the right presacral area may be the sequela of prior inflammatory process and related to patient's history of neurofibromatosis. IMPRESSION: 1. Surgical changes of Whipple with unchanged soft tissue thickening in the surgical bed and along the celiac axis. Unchanged mass effect on the portosplenic confluence. 2. Hypoenhancement of the colon at the splenic flexure may reflect ischemia. 3. Diffuse mesenteric stranding, slightly increased from prior, may be the sequela increased volume status or the result of venous congestion. Dictated by: Denzel Hayes MD The radiology attending physician has personally reviewed this study, and had reviewed and/or edited this written report and agrees with it. Electronically signed by: Shabbir Jett M.D. us Ivanna WAYNE IMG CT PROCEDURES Final Res ult * eGFR (11/19/2024 1:05 PM CDT) eGFR >90 >=60 mL/min/1. 73 m2 Comment: Interpretive Data Reference Interval Normal >/= 90 mL/min/1.73m2 Mildly decreased* 60 - 89 mL/min/1.73m2 Mildly to moderately decreased 45 - 59 mL/min/1.73m2 Moderately to severely decreased 30 - 44 mL/min/1.73m2 Severely decreased 15 - 29 mL/min/1.73m2 Kidney Failure < 15 mL/min/1.73m2 *Relative to young adult level Estimated glomerular filtration rate is determined by the 2020 CKD-EPI equation recommended by the National Kidney Foundation (A Unifying Approach to GFR Estimation: Recommendations of the NKF-ASK Task Force on Reassessing the Inclusion of Race in Diagnosing Kidney Disease, JASN 2020). The CKD-EPI equation should not be used for patients with unstable renal function and has not been validated in children and those over 70. Current interpretive data was last reviewed 2021. Blood 11/19/2024 1:05 PM CDT 11/19/2024 1:09 PM CDT us Katie Jung MD LAB BLOOD ORDERABLES Final R esult [facility] [address] [facility]. Department [place] [address] * (ABNORMAL) Differential, auto (11/19/2024 1:05 PM CDT) Neutrophil abs 3.80 1.50 - 6.50 K/cumm Imm gran abs 0.02 0.00 - 0.10 K/cumm [facility] Lymphocyte abs 0.55(L) 0.80 - 3.30 K/cumm [facility] Monocyte abs 0.44 0.20 - 0.80 K/cumm [facility] Eosinophil abs 0.09 0.00 - 0.50 K/cumm [facility] Basophil abs 0.02 0.00 - 0.10 K/cumm [facility] Neutrophil pct 77.3 % [facility] Comment: Interpretive Data Percent cell count reference ranges are not reported, since discordance with absolute values may lead to misinterpretation of CBC data. Current Interpretive Data was last revised on 2017. Imm gran pct 0.4 % [facility] Comment: Interpretive Data Percent cell count reference ranges are not reported, since discordance with absolute values may lead to misinterpretation of CBC data. Current Interpretive Data was last revised on 2017. Lymphocyte pct 11.2 % [facility] Comment: Interpretive Data Percent cell count reference ranges are not reported, since discordance with absolute values may lead to misinterpretation of CBC data. Current Interpretive Data was last revised on 2017. Monocyte pct 8.9 % [facility] Comment: Interpretive Data Percent cell count reference ranges are not reported, since discordance with absolute values may lead to misinterpretation of CBC data. Current Interpretive Data was last revised on 2017. Eosinophil pct 1.8 % [facility] Comment: Interpretive Data Percent cell count reference ranges are not reported, since discordance with absolute values may lead to misinterpretation of CBC data. Current Interpretive Data was last revised on 2017. Basophil pct 0.4 % [facility] Comment: Interpretive Data Percent cell count reference ranges are not reported, since discordance with absolute values may lead to misinterpretation of CBC data. Current Interpretive Data was last revised on 2017. Blood 11/19/2024 1:05 PM CDT 11/19/2024 1:09 PM CDT Katie Jung MD LAB BLOOD ORDERABLES Final R esult [facility] [id number] [address]. [place] [address] * (ABNORMAL) CBC with auto differential (11/19/2024 1:05 PM CDT) WBC 4.92 3.80 - 9.90 K/cumm Hgb 10.9(L) 13.0 - 17.5 g/dL [facility] Hct 36.4(L) 38.9 - 50.3 % [facility] Plt 152 150 - 400 K/cumm [facility] MPV 10.8 9.1 - 12.3 fL [facility] RBC 4.37 4.30 - 5.80 M/cumm [facility] MCV 83.3 81.3 - 96.4 fL [facility] MCH 24.9(L) 27.1 - 33.3 pg [facility] MCHC 29.9(L) 32.3 - 35.7 g/dL [facility] RDW CV 17.5(H) 11.1 - 14.9 % [facility] RDW SD 53.2(H) 35.7 - 48.1 fL [facility] NRBC abs 0.00 0.00 - 0.01 K/cumm [facility] Blood Venous blood specimen / Unknown 11/19/2024 1:05 PM CDT 11/19/2024 1:09 PM CDT us Katie Jung MD LAB BLOOD ORDERABLES Final R esult Performing Organization Address [facility]/ZIP Co de Phone Number [facility] [address]. [place] [address] * TSH (11/19/2024 1:05 PM CDT) Thyroid Stimulating Hormone 1.90 0.30 - 4.20 mcIUnit/mL Blood 11/19/2024 1:05 PM CDT 11/19/2024 1:09 PM CDT Tavon Razo MD LAB BLOOD ORDERABLES Fi nal Result [facility] [id number] [facility] [facility] [place] [address] * (ABNORMAL) Lipase (11/19/2024 1:05 PM CDT) Lipase 6(L) 10 - 99 Units/L Blood Venous blood specimen / Unknown 11/19/2024 1:05 PM CDT 11/19/2024 1:09 PM CDT Result [facility] Katie Jung MD LAB BLOOD ORDERABLES Final R esult Performing Organization Address [facility] Co de Phone Number DAVID [facility] [phone] [facility] [facility] [place] [address] * (ABNORMAL) Hemoglobin A1c (11/19/2024 1:05 PM CDT) Pathologist [facility] Hgb A1C 7.3(H) 4.0 - 5.6 % Estimated Average Glucose 163 mg/dL [facility] Comment: The ADA recommends reporting an estimated Average Glucose (eAG) with all Hemoglobin A1c results using the equation derived from a study of 507 normal and diabetic adults. Minority populations were underrepresented and children were not included. (Diabetes Care 31:3694-3910, 2008). The eAG is not equivalent to a fasting glucose. Blood 11/19/2024 1:05 PM CDT 11/19/2024 1:09 PM CDT Katie Jung MD LAB BLOOD ORDERABLES Final R esult Performing Organization Address [facility]/ZIP Co de Phone Number DAVID [facility] [phone] [facility] [address] [facility] [place] [address] * (ABNORMAL) Lipid panel (11/19/2024 1:05 PM CDT) Pathologist [facility] Cholesterol 90 30 - 199 mg/dL Comment: Interpretive Data Ages < or = 19 years Acceptable: <170 mg/dL Borderline high: 170-199 mg/dL High: >or= 200 mg/dL Ages > or = 20 years Desirable: <200 mg/dL Borderline high: 200-239 mg/dL High: >or= 240 mg/dL Literature References: 1. Expert Panel on Integrated Guidelines for Cardiovascular Health and Risk Reduction in Children and Adolescents. Pediatrics 2011;128:S213 2. NCEP Expert Panel. Circulation 2004;110:227 Current Interpretive Data was last revised on 2018. Triglycerides 109 <=149 mg/dL [facility] Comment: Interpretive Data Ages < or = 9 years Acceptable: <75 mg/dL Borderline high: 75-99 mg/dL High: >or= 100 mg/dL Ages 10 to 20 years Acceptable: <90 mg/dL Borderline high: 90-129 mg/dL High: >or= 130 mg/dL Ages > or = 20 years Desirable: <150 mg/dL Borderline high: 150-199 mg/dL High: 200-499 mg/dL Very high: >or= 499 mg/dL Literature References: 1. Expert Panel on Integrated Guidelines for Cardiovascular Health and Risk Reduction in Children and Adolescents. Pediatrics 2011;128:S213 2. NCEP Expert Panel. Circulation 2004;110:227 Current Interpretive Data was last revised on 2018. HDL 32(L) >=40 mg/dL [facility] Comment: Interpretive Data Ages < or = 19 years Acceptable: >45 mg/dL Borderline low: 40-45 mg/dL Low: <40 mg/dL Ages > or = 20 years Desirable: >or= 60 mg/dL Low: <40 mg/dL Literature References: 1. Expert Panel on Integrated Guidelines for Cardiovascular Health and Risk Reduction in Children and Adolescents. Pediatrics 2011;128:S213 2. NCEP Expert Panel. Circulation 2004;110:227 Current Interpretive Data was last revised on 2018. LDL, calculated 38 <=129 mg/dL [facility] Comment: Interpretive Data Ages < or = 19 years Acceptable: <110 mg/dL Borderline high: 110-129 mg/dL High: >or= 130 mg/dL Ages > or = 20 years Optimal: <100 mg/dL Near optimal: 100-129 mg/dL Borderline high: 130-159 mg/dL High: >160 mg/dL Calculated using the Main LDL-C estimating equation. This equation was implemented on 2024. Prior to this date LDL-C was estimated using the Friedewald equation. Literature References: 1. Expert Panel on Integrated Guidelines for Cardiovascular Health and Risk Reduction in Children and Adolescents. Pediatrics 2011;128:S213 2. NCEP Expert Panel. Circulation 2004;110:227 3. Main Cruz et al. JEANINE Cardiol. 2019October 30;5(5):540-548. doi: 10.1001/jamacardio.2020.0013 Current Interpretive Data was last revised on 2024. Non-HDL Cholesterol 58 mg/dL [facility] Comment: Interpretive Data Ages < or = 19 years Acceptable: <120 mg/dL Borderline high: 120-144 mg/dL High: >145 mg/dL Ages > or = 20 years When triglycerides are >200 mg/dL, Non-HDL cholesterol is a secondary target of therapy with treatment goals that are 30 mg/dL greater than the LDL cholesterol target. Literature References: 1. Expert Panel on Integrated Guidelines for Cardiovascular Health and Risk Reduction in Children and Adolescents. Pediatrics 2011;128:S213 2. NCEP Expert Panel. Circulation 2004;110:227 Current Interpretive Data was last revised on 2018. Chol/HDL ratio 3 [facility] Blood 11/19/2024 1:05 PM CDT 11/19/2024 1:09 PM CDT Tavon Razo MD LAB BLOOD ORDERABLES [facility] Result [facility] [address] [facility]. Department [place] [address] * (ABNORMAL) Comprehensive metabolic panel (11/19/2024 1:05 PM CDT) Sodium 138 135 - 145 mmol/L Potassium, pl 4.0 3.3 - 4.9 mmol/L [facility] Chloride 104 97 - 110 mmol/L [facility] CO2 21(L) 22 - 32 mmol/L [facility] Anion gap 13 2 - 15 mmol/L [facility] BUN 15 6 - 25 mg/dL [facility] Creatinine 0.60(L) 0.80 - 1.30 mg/dL [facility] Glucose 222(H) 70 - 199 mg/dL [facility] Comment: Interpretive Data Fasting glucose >/= 126 mg/dl is diagnostic for diabetes. Fasting is defined as no caloric intake for at least 8 hours. Fasting glucose between 100 mg/dl to 125 mg/dl is diagnostic of prediabetes. In a patient with classic symptoms of hyperglycemia or hyperglycemic crisis, a random glucose >/= 200 mg/dl is diagnostic for diabetes. In the absence of unequivocal hyperglycemia, results should be confirmed by repeat testing. The classification and Diagnosis of Diabetes Diabetes Care 202; 46: S19-S40. Current interpretive data was last revised 2022. Calcium 9.0 8.5 - 10.3 mg/dL [facility] Bilirubin, total 0.4 0.1 - 1.2 mg/dL [facility] Protein, pl 6.4(L) 6.5 - 8.5 g/dL [facility] Albumin 3.8 3.5 - 5.0 g/dL [facility] Alk phos 341(H) 40 - 130 Units/L [facility] ALT 31 7 - 55 Units/L [facility] AST 33 10 - 50 Units/L [facility] Blood 11/19/2024 1:05 PM CDT 11/19/2024 1:09 PM CDT us Katie Jung MD LAB BLOOD ORDERABLES Final R esult [facility] [address] [facility]. Department [place] [address] * POCT glucose (11/11/2024 11:42 AM CDT) [facility] Glucose, POC 84 70 - 199 mg/dL Comment: Interpretive Data Glucose is assumed to be non-fasting. Fasting Glucose reference ranges are: 0 - 150 years: 70 mg/dL - 99 mg/dL Current interpretive data was last revised on 2014. POC Performer [id number] [facility] POC Device Number [id number] [facility] Blood 11/11/2024 11:4 2 AM CDT 11/11/2024 11:42 AM CDT Trang Ryan MD LAB POCT ORDERABLES - DEVICE Fi nal Result Performing Organization Address City/State/ZIP [place] Phone Number [facility] [address] [facility] Department [place] [address] * Surgical pathology (11/11/2024 11:08 AM CDT) Tissue (Colon, Biopsy) 11/11/2024 11:08 AM CDT Narrative PATHOLOGY [facility] - 11/12/2024 11:59 AM CDT EPIC results best viewed via link to PDF [facility] [place] [address] Note to Patients: This report may contain a detailed description of human tissue sent by a health care provider to the laboratory for pathologic evaluation. The content of this report is essential for diagnosis and may provide important critical findings. This information may be unfamiliar to patients to review without a medical professional present. It is advised that the patient review this report in the presence of a health care provider who can answer questions and explain the details. SURGICAL PATHOLOGY REPORT FINAL Patient Name: RAH HENSON Gender: Nancy : 1955 (Age: 69) Address: [address] [place], [place] [id number] Hospital #: [id number] Taken:11/11/2024 Received:11/11/2024 Reported: 11/12/2024 Patient Type: [facility] EP SAME Client [facility] Service: Gastro Location: Physician(s): Trang Ryan M.D. [place] Steve Dumont M.D. Diagnosis: Large bowel, colon, random, biopsy - Normal colonic mucosa - No evidence of colitis xl/11/12/2024 11:59 By this signature, I attest that the above diagnosis is based upon my personal examination of the slides(and/or other material indicated in the diagnosis). Nayana Garibay MD Report Electronically Reviewed and Signed Out By Nayana Garibay MD 11/12/2024 11:59:33 History: The patient is a 69-year-old man with neurofibromatosis type 1, iron deficiency anemia, duodenal ulcer, abdominal wall pain, chronic diarrhea. Operative procedure: EGD and colonoscopy. Specimen(s) Received: A: Random colon biopsies Gross Description: Received in formalin, labeled with the patient s identifiers and random colon biopsies are multiple irregular tissue fragment(s) (measuring 4.4 x 0.4 x 0.1 cm in aggregate. Stained with eosin). Labeled A1 to A2. Jar 0. cnewho11/11/2024 13:19 PA(s): ROSANA Bishop By this signature, I attest that the above diagnosis is based upon my personal examination of the slides(and/or other material). Addenda/Procedures Microscopic slide review and interpretation for this case was performed at [facility], Department of Surgical Pathology, [address] [facility], [place] [id number], [place] [address] CLIA # [id number] The performance characteristics of some immunohistochemical stains, fluorescence in-situ hybridization tests and immunophenotyping by flow cytometry cited in this report (if any) were determined by the Surgical Pathology and Flow Cytometry Departments at [facility] as part of an ongoing water quality manager program and in compliance with federally mandated regulations drawn from the Clinical Laboratory Improvement Act of 1988 (CLIA '88). Some of these tests rely on the use of analyte specific reagents and are subject to specific labeling requirements by the US Food and Drug Administration. Such diagnostic tests may only be performed in a facility that is certified by the Department of Health and Human Services as a high complexity laboratory under CLIA '88. The FDA has determined that such clearance or approval is not necessary. This test is used for clinical purposes. It should not be regarded as investigational or for research. Nevertheless, federal rules concerning the medical use of analyte specific reagents require that the following disclaimer be attached to the report: This test was developed and its performance characteristics determined by the Surgical Pathology and Flow Cytometry Departments of [facility]. It has not been cleared or approved by the U. S. Food and Drug Administration. IMAGES AND SCANNED DOCUMENTS, IF INCLUDED, ONLY VIEWABLE IN PDF VERSION OF REPORT us Trang Ryan MD LAB PATHOLOGY ORDERABLES Final Result PATHOLOGY [facility] [phone] * Colonoscopy (11/11/2024 11:01 AM CDT) Anatomical Region Laterality Modality Other Narrative Procedure Note Trang Ryan MD - 11/11/2024 11:01 AM CDT ENDOSCOPY LAB Patient Name: Rah Henson Procedure Date: 11/11/2024 11:01 AM Date of : 1955 Admit Type: Outpatient Age: 69 Gender: Male Attending MD: Trang Ryan M.D. Room: [facility] ENDOSCOPY ROOM 01 Note Status: Finalized Procedure: Colonoscopy Indications: Chronic diarrhea Providers: Trang Ryan M.D. Referring MD: Ben Chahal M.D. Medicines: Monitored Anesthesia Care Complications: No immediate complications. Estimated Blood Loss: Estimated blood loss was minimal. Procedure: Pre-Anesthesia Assessment: - Prior to the procedure, a History and Physicalwas performed, and patient medications, allergies and sensitivities were reviewed. The patient'stolerance of previous anesthesia was reviewed. - Immediately prior to administration ofmedications, the patient was re-assessed for adequacy to receive sedatives. The benefits, risks and alternatives of theprocedure and sedation were discussed and informed consentwas obtained. All questions were answered. Please referto the signed informed consent document in the medical record. The scope was passed under direct vision.The [id number] was introduced through the anusand advanced to the terminal ileum. The colonoscopy was performed without difficulty. The quality of thebowel preparation was evaluated using the BBPS (BostonBowel Preparation Scale) with scores of: Right Colon = 3, Transverse Colon = 3 and Left Colon = 3 (entiremucosa seen well with no residual staining, smallfragments of stool or opaque liquid). The total BBPS score equals 9. Findings: The perianal and digital rectal examinations were normal. The terminal ileum appeared normal. The colon (entire examined portion) appeared normal. Biopsies for histology were taken with a cold forceps from the entire colon for evaluation of microscopic colitis. The exam was otherwise without abnormality. The retroflexed view of the distal rectum and anal verge was normaland showed no anal or rectal abnormalities. A hemostatic clip came out from the working channel while obtainingthe random biopsies. This was retrieved. Impression: - The examined portion of the ileum was normal. - The entire examined colon is normal. Biopsied. - The examination was otherwise normal. - The distal rectum and anal verge are normal on retroflexion view. Recommendation: - Await pathology results. - . Attending Participation: I personally performed the entire procedure. Electronically signed by Trang Ryan MD Trang Ryan M.D. 11/11/2024 11:26:23 AM Number of Addenda: 0 Note Initiated On: 11/11/2024 11:01 AM us Trang Ryan MD ENDOSCOPY PROCEDURES Final Resu lt * EGD (11/11/2024 10:45 AM CDT) Anatomical Region Laterality Modality Other Narrative Procedure Note Trang Ryan MD - 11/11/2024 10:45 AM CDT ENDOSCOPY LAB Patient Name: Rah Henson Procedure Date: 11/11/2024 10:45 AM Date of : 1955 Admit Type: Outpatient Age: 69 Gender: Male Attending MD: Trang Ryan M.D. Room: [facility] ENDOSCOPY ROOM 01 Note Status: Finalized Procedure: Upper GI endoscopy Indications: Follow-up of ulcer of the GI tract Providers: Trang Ryan M.D. Referring MD: Ben Chahal M.D. Medicines: Monitored Anesthesia Care Complications: No immediate complications. Estimated Blood Loss: Estimated blood loss: none. Procedure: Pre-Anesthesia Assessment: - Prior to the procedure, a History and Physicalwas performed, and patient medications, allergies and sensitivities were reviewed. The patient'stolerance of previous anesthesia was reviewed. - Immediately prior to administration ofmedications, the patient was re-assessed for adequacy to receive sedatives. After obtaining informed consent, the endoscope was passed under direct vision. Throughout theprocedure, the patient's blood pressure, pulse, and oxygen saturations were monitored continuously. The [id number] was introduced through the mouth,and advanced to the afferent and efferent jejunalloops. The upper GI endoscopy was accomplished without difficulty. Findings: The examined esophagus was normal. A Padlock endoclip were found on the anterior wall of the gastricbody. The exam of the stomach was otherwise normal. There was evidence of a widely patent pylorus-sparing Whipple in the duodenal bulb. This was characterized by healthy appearing mucosa.The opening of the efferent limb was narrow but the endoscope traversedit easily. The afferent limb had multiple diverticula. Impression: - Normal esophagus. - A Padlock endoclip were found in the stomach. - Widely patent pylorus-sparing Whipple,characterized by healthy appearing mucosa was found in theduodenum. The opening of the efferent limb was narrow. - No specimens collected. Recommendation: - Continue present medications. - - Attending Participation: I personally performed the entire procedure. Electronically signed by Trang Ryan MD Trang Ryan M.D. 11/11/2024 11:39:07 AM Number of Addenda: 0 Note Initiated On: 11/11/2024 10:45 AM us Trang Ryan MD ENDOSCOPY PROCEDURES Final Resu lt * POCT glucose (11/11/2024 10:18 AM CDT) Glucose, POC 103 70 - 199 mg/dL Comment: Interpretive Data Glucose is assumed to be non-fasting. Fasting Glucose reference ranges are: 0 - 150 years: 70 mg/dL - 99 mg/dL Current interpretive data was last revised on 2014. POC Performer [id number] [facility] POC Device Number [id number] [facility] Blood 11/11/2024 10:1 8 AM CDT 11/11/2024 10:18 AM CDT Trang Ryan MD LAB POCT ORDERABLES - DEVICE Fi nal Result Performing Organization Address City/[facility]/ZIP Co de Phone Number [facility] [address] [facility] Department [place] [address] * Hepatitis panel, acute Blood (07/25/2024 3:22 AM FERTILIZING MACHINE OPERATOR) Hep A IgM Nonreactive Nonreactive Hep B core IgM Nonreactive Nonreactive [facility] Hep C Ab Nonreactive Nonreactive [facility] Comment:Antibodies to HCV no t detected. Does NOT exclude the possibility of recent exposure to HCV. Current interpretive data was last revised on 22 HepBsAg Nonreactive Nonreactive [facility] Blood 07/25/2024 3:22 AM FERTILIZING MACHINE OPERATOR 07/25/2024 4:10 AM FERTILIZING MACHINE OPERATOR us Ros Stanley MD LAB MICROBIOLOGY - GENERAL ORDERABLES Final Result Performing Organization Address City/[facility] Co de Phone Number [facility] Department [place] [address] * Albumin Creatinine Ratio, Urine (02/29/2024 8:27 AM CDT) Creatinine, ur 64 20 - 320 mg/dL [facility] Microalbumin, ur 0.7 See Note: mg/dL [facility] Comment: Reference Range: Reference Range Not established Microalbumin/creat ratio 11 <30 mg/g creat [facility] Comment: The ADA defines abnormalities in albumin excretion as follows: Albuminuria Category Result (mg/g creatinine) Normal to Mildly increased <30 Moderately increased 30-299 Severely increased > OR = 300 The ADA recommends that at least two of three specimens collected within a 3-6 month period be abnormal before considering a patient to be within a diagnostic category. Urine 02/29/2024 8:27 AM CDT 02/29/2024 8:28 AM CDT us Clemencia Beatty NP LAB URINE ORDERABLES Tete l Result [facility] [address] [phone] * PSA screen (04/16/2020 7:01 AM CDT) PSA 0.1 < OR = 4.0 ng/mL [facility] Comment: The total PSA value from this assay system is standardized against the WHO standard. The test result will be approximately 20% lower when compared to the equimolar-standardized total PSA (April Gideon). Comparison of serial PSA results should be interpreted with this fact in mind. This test was performed using the Siemens chemiluminescent method. Values obtained from different assay methods cannot be used interchangeably. PSA levels, regardless of value, should not be interpreted as absolute evidence of the presence or absence of disease. 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:Contact Precautions (gown and gloves) - not eligible for IP review until 6 months after positive culture - Jerod QURESHI, RN 10/01/24 07/24/2024 09/20/2024 Insurance HUMANA CHOICE MEDICARE PPO IDPA [facility] CON AETNA [facility] GOLD REF AETNA SENIOR SUPPLEMENT HUMANA CHOICE MEDICARE PPO MEDICARE IDPA HUMANA CHOICE MEDICARE PPO IDPA IDPA HUMANA CHOICE MEDICARE PPO IDPA HUMANA MEDICARE HMO Advance Directives For more information, please contact: [phone] Documents on File Type Date Recorded Patient Core Inspector Expl anation ADVANCE DIRECTIVE 05/22/2023 5:43 PM Claudine Ellis POWER OF BILLING MANAGER-MEDICAL ADVANCE DIRECTIVE 04/12/2023 6:16 PM [place] R OF BILLING MANAGER-MEDICAL ADVANCE DIRECTIVE 04/12/2023 6:09 PM [place] R OF BILLING MANAGER-MEDICAL * Full Code (Latest Code Status on File) Date Activated Date Inactivated Comments 01/13/2025 12:24 AM 01/15/2025 7:42 PM * Full Code Date Activated Date Inactivated Comments 12/09/2024 9:25 AM 12/10/2024 4:50 PM * Full Code Date Activated Date Inactivated Comments 11/19/2024 8:22 PM 11/24/2024 3:09 PM * Full Code Date Activated Date Inactivated Comments 11/11/2024 9:57 AM 11/11/2024 4:28 PM * Full Code Date Activated Date Inactivated Comments 09/20/2024 9:32 PM 09/27/2024 8:42 PM Healthcare Agents on File Name Relationship Healthcare Agent [facility] Communication Claudine Fannie Spouse Health Care Agent [email or web address] Meghan Ellis Daughter First Alternate Health Care Agent Sushant Henson Son Second Alternate Health Care Agent [email or web address] Teams Packing Room Supervisor Relationship Specialty Start Date End Date Kenton Ricks MD PCP - General 08/14/16 Pebbles Nelson MD Referring Physician Cardiology 02/07/19 Aylin Russ MD [address] [facility] [address] [place] [address] Referring Physician Pulmonary Disease 02/07/19 Maricruz Ramirez NP [address] [facility] [address] [place] [address] Nurse Practitioner Cardiovascular Disease 09/25/21 Joanne Lopez, CONY Registered Nurse Pulmonary Disease 08/24/22 Ben Chahal MD PhD 10 [facility] # 2 [place] [address] Medical Oncologist/Hematologis t Medical Oncology 10/05/22 Giovanna Alexis MD [address] [place] [address] Radiation Oncologist Radiation Oncology 03/09/23 Abby Higgins MD PhD [address] DIV IM MEDICAL ONCOLOGY, [facility] 7A, 7B, [address] [place] [address] Medical Oncologist/Hematologis t Medical Oncology 05/10/23 Adrian Martinez MD [address] DIV SURG TRANSPLANT, [address]BDI [address] [place] [address] Surgical Oncologist Surgical Oncology 05/28/23 Vera Pérez PA [address] [place] [phone] [place] [address] Physician Powder Monkey Colon and Rectal Surgery 09/13/23 Jim Frausto MD [address] [facility] [phone] [place] [address] Surgeon Colon and Rectal Surgery 11/21/23
--- OUTSIDE RECORDS SUMMARY | 2025-02-09 08:25 | XMS_ITS | Encounter Summary ---
Author Organization [facility] Address [address] [place] [address] Phone Care Team Providers Care Packaging Designer Name Role Phone Kenton Ricks MD Primary Care Provider + [phone] Kenton Ricks MD Primary Care Provider + [phone] Pebbles Nelson MD Unavailable [phone] Aylin Russ MD Unavailable [phone] Maricruz Ramirez NP Unavailable [phone] Joanne Lopez RN Unavailable Padmini Leatha Carter Unavailable Unavailable Ben Chahal MD PhD Unavailable [phone] Chace Oliva MD Unavailable [phone] Giovanna Alexis MD Unavailable Taisha Suarez RN Unavailable Unavaila Sandra Aguirre MD Unavailable [phone] Abby Higgins MD PhD Unavailable + Adrian Martinez MD Unavailable [phone] Vera Pérez Unavailable Jim Frausto MD Unavailable Анна Robert RN Unavailable [phone] Encounter Details Date Type Department Care Team (Late st Contact Info) Description 03/14/2016 Orders Only [facility] Provider, MD Max [address] [place] [address] Social History Tobacco Use Types Packs/Day Years Used Date Smoking Tobacco: Never Assessed Sex and Gender Information Value Date Recorded Sex Assigned at Not on file Legal Sex Male 12:58 AM INSURANCE SALESMAN Gender Identity Male 11/11/2018 10:31 AM CDT Sexual Orientation Straight 06/09/2019 5: 34 PM INSURANCE SALESMAN documented as of this encounter Plan of Treatment Not on file documented as of this encounter Procedures Procedure Name Priority Date/Time Associated Diagnosis Comments CARDIOLOGY REPORT 03/14/2016 documented in this encounter Results * CARDIOLOGY REPORT (03/14/2016) Anatomical Region Laterality Modality Other Narrative 03/14/2016 Ordered by an unspecified provider. Historical Provider [...] COVID: Suspected 06/07/2023 06/07/2023 06/07/2023 12:46 PM INSURANCE SALESMAN COVID19 06/07/2023 06/07/2023 06/22/2023 3:06 AM INSURANCE SALESMAN COVID: Recovered Comment:Added based on recent COVID infection. 06/22/2023 06/22/2023 09/20/2023 3:05 AM C DT COVID: Suspected 07/24/2023 07/24/2023 07/24/2023 3:53 PM INSURANCE SALESMAN Diarrhea 07/30/2023 07/30/2023 08/13/2023 3:05 AM INSURANCE SALESMAN COVID: Suspected 08/30/2023 08/30/2023 08/30/2023 4:52 PM INSURANCE SALESMAN COVID: Suspected 10/12/2023 10/12/2023 10/12/2023 7:57 PM CDT Rhino/Enterovirus 10/12/2023 10/12/2023 10/26/2023 3:05 AM CDT COVID: Suspected 07/10/2024 07/10/2024 07/10/2024 4:53 PM INSURANCE SALESMAN COVID: Suspected Comment:07/16/2024 IP Review: no outstanding test, last RPP negative. Mary Tiwari RN 07/16/2024 07/16/2024 10:51 AM INSURANCE SALESMAN COVID19 Comment:07/16/2024 IP Review: added by RN, RPP negative. Mary Tiwari RN 07/16/2024 07/16/2024 07/16/2024 10:51 AM INSURANCE SALESMAN MRSA Comment:nasalMRSA Isolation Care Home 09/03/24 07/16/2024 08/15/2024 09/03/2024 6:[address] C. difficile suspected 07/19/2024 07/19/202407/19 2:34 PM INSURANCE SALESMAN COVID: Suspected 07/23/2024 07/23/2024 07/23/2024 11:28 PM INSURANCE SALESMAN C. difficile suspected 07/23/2024 07/24/202407/24 10:31 AM INSURANCE SALESMAN Norovirus suspected 07/23/2024 07/24/2024 07/24/19 9:37 AM INSURANCE SALESMAN VRE Comment:Contact Precautions (gown and gloves) - not eligible for IP review until 6 months after positive culture - Jerod QURESHI, [place] 10/01/24 07/24/2024 09/20/2024 COVID: Suspected 08/09/2024 08/09/2024 08/09/2024 9:40 AM INSURANCE SALESMAN Influenza, adult Comment:08/26/2024 IP Review: pt afebrile but on antipyretics. Needs 24 hours off antipyretics and symptoms significantly improved/resolved in order for isolation to be discontinued. Mary Tiwari RN 08/15/2024 08/15/2024 08/29/2024 3:06 AM INSURANCE SALESMAN Coronavirus, droplet 08/15/2024 08/15/202408/29/ 025 3:06 AM INSURANCE SALESMAN C. difficile suspected 09/19/2024 09/19/202409/20 3:05 AM [...] documented as of this encounter Care Teams Packaging Designer Relationship Specialty Start Date End Date Kenton Ricks MD PCP - General 08/14/16 Kenton Ricks MD PCP - General 09/17/08 08/13/16 Pebbles Nelson MD Referring Physician Cardiology 02/07/19 Aylin Russ MD [address] [place] [address] Referring Physician Pulmonary Disease 02/07/19 Maricruz Ramirez FOOD SERVICE WORKER [address] [place] [address] Nurse Practitioner Cardiovascular Disease 09/25/21 Joanne Lopez, RN Registered Nurse Pulmonary Disease 08/24/22 Leatha Cristina RMA Surgical Prehabilitation and Readiness (SPAR) Coordinator 09/01/22 01/02/23 Ben Chahal MD PhD 10 [facility] # 2 DIV IM [place] [address] Medical Oncologist/Recruiter Account Manager Medical Oncology 10/05/22 Chace Oliva MD [address] [facility] [address] [place] [address] Consulting Physician Infectious Diseases 12/22/2204/01 Giovanna Alexis MD [address] [place] [address] Radiation Oncologist Radiation Oncology 03/09/23 Taisha Suarez, construction consultant Prehabilitation and Readiness (SPAR) Coordinator General Surgery 03/20/23 04/10/23 Sandra Ma MD [address] DIV IM MEDICAL ONCOLOGY, [facility] 7A, 7B, [address]C [place] [address] Consulting Physician Medical Oncology 04/25/23 05/09/23 Abby Higgins MD PhD [address] DIV IM MEDICAL ONCOLOGY, [facility] 7A, 7B, [address] [place] [address] Medical Oncologist/Recruiter Account Manager Medical Oncology 05/10/23 Adrian Martinez MD [address] DIV SURG TRANSPLANT, [address] [place] [address] Surgical Oncologist Surgical Oncology 05/28/23 Vera Pérez PA [address] [place] [phone] [place] [address] Physician Credit Risk Officer Colon and Rectal Surgery 09/13/23 Jim Frausto MD [address] [facility] [phone] [place] [address] Surgeon Colon and Rectal Surgery 11/21/23 Анна Robert, RN [address] [facility] [address] [place] [address] SHOP Outpatient Fish Header 09/29/24 10/01/24 documented as of this encounter
--- OUTSIDE RECORDS SUMMARY | 2025-02-09 08:25 | XMS_ITS | Encounter Summary ---
Author Organization [facility] Address [address] [place] [address] Phone Care Team Providers Care Patternmaker Grader Name Role Phone Kenton Ricks MD Primary Care Provider + [phone] Kenton Ricks MD Primary Care Provider + [phone] Pebbles Nelson MD Unavailable [phone] Aylin Russ MD Unavailable [phone] Maricruz Ramirez NP Unavailable [phone] Joanne Lopez RN Unavailable Padmini Leatha Carter Unavailable Unavailable Ben Chahal MD PhD Unavailable [phone] Chace Oliva MD Unavailable [phone] Giovanna Alexis MD Unavailable Taisha Suarez RN Unavailable Unavaila Sandra Aguirre MD Unavailable [phone] Abby Higgins MD PhD Unavailable + Adrian Martinez MD Unavailable Vera Pérez Unavailable [phone] Jim Frausto MD Unavailable Анна Robert RN Unavailable Encounter Details Date Type Department Care Team (Late st Contact Info) Description 06/02/2014 Orders Only [facility] Provider, MD Max [address] [place] [address] Social History Tobacco Use Types Packs/Day Years Used Date Smoking Tobacco: Never Assessed Sex and Gender Information Value Date Recorded Sex Assigned at Not on file Legal Sex Male 12:58 AM PROCESSING INSPECTOR Gender Identity Male 11/11/2018 10:31 AM CDT Sexual Orientation Straight 06/09/2019 5: 34 PM PROCESSING INSPECTOR documented as of this encounter Plan of Treatment Not on file documented as of this encounter Procedures Procedure Name Priority Date/Time Associated Diagnosis Comments CARDIOLOGY REPORT 06/02/2014 documented in this encounter Results * CARDIOLOGY REPORT (06/02/2014) Anatomical Region Laterality Modality Other Narrative 06/02/2014 Ordered by an unspecified provider. Historical Provider [...] COVID: Suspected 06/07/2023 06/07/2023 06/07/2023 12:46 PM PROCESSING INSPECTOR COVID19 06/07/2023 06/07/2023 06/22/2023 3:06 AM PROCESSING INSPECTOR COVID: Recovered Comment:Added based on recent COVID infection. 06/22/2023 06/22/2023 09/20/2023 3:05 AM C DT COVID: Suspected 07/24/2023 07/24/2023 07/24/2023 3:53 PM PROCESSING INSPECTOR Diarrhea 07/30/2023 07/30/2023 08/13/2023 3:05 AM PROCESSING INSPECTOR COVID: Suspected 08/30/2023 08/30/2023 08/30/2023 4:52 PM PROCESSING INSPECTOR COVID: Suspected 10/12/2023 10/12/2023 10/12/2023 7:57 PM CDT Rhino/Enterovirus 10/12/2023 10/12/2023 10/26/2023 3:05 AM CDT COVID: Suspected 07/10/2024 07/10/2024 07/10/2024 4:53 PM PROCESSING INSPECTOR COVID: Suspected Comment:07/16/2024 IP Review: no outstanding test, last RPP negative. Mary Tiwari RN 07/16/2024 07/16/2024 10:51 AM PROCESSING INSPECTOR COVID19 Comment:07/16/2024 IP Review: added by RN, RPP negative. Mary Tiwari RN 07/16/2024 07/16/2024 07/16/2024 10:51 AM PROCESSING INSPECTOR MRSA Comment:nasalMRSA Isolation Intermediate 09/03/24 07/16/2024 08/15/2024 09/03/2024 6:[address] C. difficile suspected 07/19/2024 07/19/202407/19 2:34 PM PROCESSING INSPECTOR COVID: Suspected 07/23/2024 07/23/2024 07/23/2024 11:28 PM PROCESSING INSPECTOR C. difficile suspected 07/23/2024 07/24/202407/24 10:31 AM PROCESSING INSPECTOR Norovirus suspected 07/23/2024 07/24/2024 07/24/19 9:37 AM PROCESSING INSPECTOR VRE Comment:Contact Precautions (gown and gloves) - not eligible for IP review until 6 months after positive culture - Jerod QURESHI, CONY 10/01/24 07/24/2024 09/20/2024 COVID: Suspected 08/09/2024 08/09/2024 08/09/2024 9:40 AM PROCESSING INSPECTOR Influenza, adult Comment:08/26/2024 IP Review: pt afebrile but on antipyretics. Needs 24 hours off antipyretics and symptoms significantly improved/resolved in order for isolation to be discontinued. Mary Tiwari RN 08/15/2024 08/15/2024 08/29/2024 3:06 AM PROCESSING INSPECTOR Coronavirus, droplet 08/15/2024 08/15/202408/29/ 025 3:06 AM PROCESSING INSPECTOR C. difficile suspected 09/19/2024 09/19/202409/20 3:05 AM [...] as of this encounter Care Teams Patternmaker Grader Relationship Specialty Start Date End Date Kenton Ricks MD PCP - General 08/14/16 Kenton Ricks MD PCP - General 09/17/08 08/13/16 Pebbles Nelson MD Referring Physician Cardiology 02/07/19 Aylin Russ MD [address] [place] [address] Referring Physician Pulmonary Disease 02/07/19 Maricruz Ramirez NURSING CLINICAL DIRECTOR [address] [place] [address] Nurse Practitioner Cardiovascular Disease 09/25/21 Joanne Lopez, RN Registered Nurse Pulmonary Disease 08/24/22 Leatha Cristina RMA Surgical Prehabilitation and Readiness (SPAR) Coordinator 09/01/22 01/02/23 Ben Chahal MD PhD 10 [facility] # 2 [place] [address] Medical Oncologist/Body And Fender Mechanic Medical Oncology 10/05/22 Chace Oliva MD [address] [facility] [address] [place] [address] Consulting Physician Infectious Diseases 12/22/2204/01 Giovanna Alexis MD [address] [place] [address] Radiation Oncologist Radiation Oncology 03/09/23 Taisha Suarez, marketing automation specialist Prehabilitation and Readiness (SPAR) Coordinator General Surgery 03/20/23 04/10/23 Sandra Ma MD [address] DIV IM MEDICAL ONCOLOGY, [facility] 7A, 7B, [address] [place] [address] Consulting Physician Medical Oncology 04/25/23 05/09/23 Abby Higgins MD PhD [address] DIV IM MEDICAL ONCOLOGY, [facility] 7A, 7B, [address] [place] [address] Medical Oncologist/Body And Fender Mechanic Medical Oncology 05/10/23 Adrian Martinez MD [address] DIV SURG TRANSPLANT, [address] [place] [address] Surgical Oncologist Surgical Oncology 05/28/23 Vera Pérez PA [address] [place] [phone] [place] [address] Physician Actuarial Associate Colon and Rectal Surgery 09/13/23 Jim Frausto MD [address] [facility] [phone] [place] [address] Surgeon Colon and Rectal Surgery 11/21/23 Анна Robert, RN [address] [facility] [address] [place] [address] SHOP Outpatient Return Clerk 09/29/24 10/01/24 documented as of this encounter
--- OUTSIDE RECORDS SUMMARY | 2025-02-09 08:25 | XMS_ITS | Encounter Summary ---
Author Organization [employer] [facility] Address [address] [place] [address] Care Team Providers Care Cuprous Chloride Helper Name Role Phone Kenton Ricks MD Primary Care Provider [phone] Encounter Details Date Type Department Care Team (Late st Contact Info) Description 12/24/2001 Outpatient [facility] [address] [place] [address]. [place] [address] Anika Rowan MD NO ADDRESS ON FILE Social History Tobacco Use Types Packs/Day Years Used Date Smoking Tobacco: Never Assessed Sex and Gender Information Value Date Recorded Sex Assigned at Not on file Legal Sex Male 4:35 AM CHARGE AIDE Gender Identity Not on file Sexual Orientation Not on file documented as of this encounter Plan of Treatment Not on file documented as of this encounter Visit Diagnoses Not on filedocumented in this encounter Care Teams Cuprous Chloride Helper Relationship Specialty Start Date End Date Kenton Ricks MD [address] [place] [id number] PCP - General Family Practice 11/15/18 documented as of this encounter
--- OUTSIDE RECORDS SUMMARY | 2025-02-09 08:25 | XMS_ITS | Encounter Summary ---
Author Organization [facility] Address [address] [place] [address] Phone Care Team Providers Care Hand Blocker Name Role Phone Kenton Ricks MD Primary Care Provider + [phone] Kenton Ricks MD Primary Care Provider + [phone] Pebbles Nelson MD Unavailable [phone] Aylin Russ MD Unavailable [phone] Maricruz Ramirez NP Unavailable [phone] Joanne Lopez RN Unavailable Padmini Leatha Carter Unavailable Unavailable Ben Chahal MD PhD Unavailable [phone] Chace Oliva MD Unavailable [phone] Giovanna Alexis MD Unavailable Taisha Suarez RN Unavailable Unavaila Sandra Aguirre MD Unavailable [phone] Abby Higgins MD PhD Unavailable + Adrian Martinez MD Unavailable Vera Pérez Unavailable [phone] Jim Frausto MD Unavailable [phone] Анна Robert RN Unavailable [phone] Encounter Details Date Type Department Care Team (Late st Contact Info) Description 02/20/2014 Orders Only [facility]INCONV Provider, MD Max [address] [place] [id number] Social History Tobacco Use Types Packs/Day Years Used Date Smoking Tobacco: Never Assessed Sex and Gender Information Value Date Recorded Sex Assigned at Not on file Legal Sex Male 12:58 AM CHIEF NUCLEAR MEDICINE TECHNOLOGIST Gender Identity Male 11/11/2018 10:31 AM CDT Sexual Orientation Straight 06/09/2019 5: 34 PM CHIEF NUCLEAR MEDICINE TECHNOLOGIST documented as of this encounter Plan of Treatment Not on file documented as of this encounter Procedures Procedure Name Priority Date/Time Associated Diagnosis Comments CARDIOLOGY REPORT 02/20/2014 documented in this encounter Results * CARDIOLOGY REPORT (02/20/2014) Anatomical Region Laterality Modality Other Narrative 02/20/2014 Ordered by an unspecified provider. Historical Provider [...] COVID: Suspected 06/07/2023 06/07/2023 06/07/2023 12:46 PM CHIEF NUCLEAR MEDICINE TECHNOLOGIST COVID19 06/07/2023 06/07/2023 06/22/2023 3:06 AM CHIEF NUCLEAR MEDICINE TECHNOLOGIST COVID: Recovered Comment:Added based on recent COVID infection. 06/22/2023 06/22/2023 09/20/2023 3:05 AM C DT COVID: Suspected 07/24/2023 07/24/2023 07/24/2023 3:53 PM CHIEF NUCLEAR MEDICINE TECHNOLOGIST Diarrhea 07/30/2023 07/30/2023 08/13/2023 3:05 AM CHIEF NUCLEAR MEDICINE TECHNOLOGIST COVID: Suspected 08/30/2023 08/30/2023 08/30/2023 4:52 PM CHIEF NUCLEAR MEDICINE TECHNOLOGIST COVID: Suspected 10/12/2023 10/12/2023 10/12/2023 7:57 PM CDT Rhino/Enterovirus 10/12/2023 10/12/2023 10/26/2023 3:05 AM CDT COVID: Suspected 07/10/2024 07/10/2024 07/10/2024 4:53 PM CHIEF NUCLEAR MEDICINE TECHNOLOGIST COVID: Suspected Comment:07/16/2024 IP Review: no outstanding test, last RPP negative. Mary Tiwari RN 07/16/2024 07/16/2024 10:51 AM CHIEF NUCLEAR MEDICINE TECHNOLOGIST COVID19 Comment:07/16/2024 IP Review: added by RN, RPP negative. Mary Tiwari RN 07/16/2024 07/16/2024 07/16/2024 10:51 AM CHIEF NUCLEAR MEDICINE TECHNOLOGIST MRSA Comment:nasalMRSA [facility] 09/03/24 07/16/2024 08/15/2024 09/03/2024 6:[address] C. difficile suspected 07/19/2024 07/19/202407/19 2:34 PM CHIEF NUCLEAR MEDICINE TECHNOLOGIST COVID: Suspected 07/23/2024 07/23/2024 07/23/2024 11:28 PM CHIEF NUCLEAR MEDICINE TECHNOLOGIST C. difficile suspected 07/23/2024 07/24/202407/24 10:31 AM CHIEF NUCLEAR MEDICINE TECHNOLOGIST Norovirus suspected 07/23/2024 07/24/2024 07/24/19 9:37 AM CHIEF NUCLEAR MEDICINE TECHNOLOGIST VRE Comment:Contact Precautions (gown and gloves) - not eligible for IP review until 6 months after positive culture - Jerod QURESHI, CONY 10/01/24 07/24/2024 09/20/2024 COVID: Suspected 08/09/2024 08/09/2024 08/09/2024 9:40 AM CHIEF NUCLEAR MEDICINE TECHNOLOGIST Influenza, adult Comment:08/26/2024 IP Review: pt afebrile but on antipyretics. Needs 24 hours off antipyretics and symptoms significantly improved/resolved in order for isolation to be discontinued. Mary Tiwari RN 08/15/2024 08/15/2024 08/29/2024 3:06 AM CHIEF NUCLEAR MEDICINE TECHNOLOGIST Coronavirus, droplet 08/15/2024 08/15/202408/29/ 025 3:06 AM CHIEF NUCLEAR MEDICINE TECHNOLOGIST C. difficile suspected 09/19/2024 09/19/202409/20 3:05 AM CDT C. difficile suspected 09/20/2024 09/20/202409/20 10:39 PM CDT Ring Surveillance Comment:09/21/2024- 5400 C. Auris ring surveillance. Becik Peres VIM 5400 09/21/2024 09/21/2024 09/28/2024 3:05 [...] documented as of this encounter Care Teams Hand Blocker Relationship Specialty Start Date End Date Kenton Ricks MD PCP - General 08/14/16 Kenton Ricks MD PCP - General 09/17/08 08/13/16 Pebbles Nelson MD Referring Physician Cardiology 02/07/19 Aylin Russ MD [address] [place] [address] Referring Physician Pulmonary Disease 02/07/19 Maricruz Ramirez CARD ROOM MANAGER [address] [place] [address] Nurse Practitioner Cardiovascular Disease 09/25/21 Joanne Lopez, RN Registered Nurse Pulmonary Disease 08/24/22 Leatha Cristina RMA Surgical Prehabilitation and Readiness (SPAR) Coordinator 09/01/22 01/02/23 Ben Chahal MD PhD [address] [facility] [address] 2 [place] [address] Medical Oncologist/Supervisor Cutting And Sewing Room Medical Oncology 10/05/22 Chace Oliva MD [address] [facility] [address] [place] [address] Consulting Physician Infectious Diseases 12/22/2204/01 Giovanna Alexis MD [address] [place] [address] Radiation Oncologist Radiation Oncology 03/09/23 Taisha Suarez, shell trim operator Prehabilitation and Readiness (SPAR) Coordinator General Surgery 03/20/23 04/10/23 Sandra Ma MD [address] DIV IM MEDICAL ONCOLOGY, [facility] 7A, 7B, [address] [place] [address] Consulting Physician Medical Oncology 04/25/23 05/09/23 Abby Higgins MD PhD [address] DIV IM MEDICAL ONCOLOGY, [facility] 7A, 7B, [address] [place] [address] Medical Oncologist/Supervisor Cutting And Sewing Room Medical Oncology 05/10/23 Adrian Martinez MD [address] DIV SURG TRANSPLANT, [address] [place] [address] Surgical Oncologist Surgical Oncology 05/28/23 Vera Pérez PA [address] [place] [id number] [place] [address] Physician Broadcast Producer Colon and Rectal Surgery 09/13/23 Jim Frausto MD [address] [facility] [id number] [place] [address] Surgeon Colon and Rectal Surgery 11/21/23 Анна Robert, RN [address] [facility] [address] [place] [address] SHOP Outpatient Motorcycle Delivery Driver 09/29/24 10/01/24 documented as of this encounter
--- OUTSIDE RECORDS SUMMARY | 2025-02-09 08:25 | XMS_ITS | Encounter Summary ---
Author Organization [facility] Address [address] [place] [address] Phone Care Team Providers Care Hotel Housekeeper Name Role Phone Kenton Ricks MD Primary Care Provider + [phone] Pebbles Nelson MD Unavailable [phone] Aylin Russ MD Unavailable [phone] Maricruz Ramirez NP Unavailable [phone] Joanne Lopez RN Unavailable Padmini Leatha Carter Unavailable Unavailable Ben Chahal MD PhD Unavailable [phone] Chace Oliva MD Unavailable [phone] Giovanna Alexis MD Unavailable Taisha Suarez RN Unavailable Unavaila Sandra Aguirre MD Unavailable [phone] Abby Higgins MD PhD Unavailable + Adrian Martinez MD Unavailable [phone] Vera Pérez Unavailable [phone] Jim Frausto MD Unavailable [phone] Анна Robert RN Unavailable [phone] Encounter Details Date Type Department Care Team (Late st Contact Info) Description 07/19/2022 Orders Only [facility] Scanning, Provider Social History Tobacco Use Types Packs/Day Years Used Date Smoking Tobacco: Never Smokeless Tobacco: Never Alcohol Use Standard Drinks/Week Comments Yes 0 (1 standard drink = 0.6 oz pur e alcohol) Occassional Social Connection and Isolation Panel Answer Date Recorded In a typical week, how many times do you talk on the phone with family, friends, or neighbors? Three times a week 10/17/2021 How often do you get togethe r with friends or relatives? More than three times a week 10/17/2021 How often do you attend [facility] or latter-day services? More than 4 times per year 10/17/2021 Do you belong to any clubs o r organizations such as mandaen groups, unions, fraternal or athletic groups, or school groups? Yes 10/17/2021 How often do you attend meet ings of the clubs or organizations you belong to? More than 4 times per year 10/17/2021 Are you , , di vorced, , never , or living with a partner? 10/17/2021 AUDIT-C Answer Date Recorded Q1: How often do you have a drink containing alcohol? 4 or more times a week 07/05/2022 Q2: How many drinks containi ng alcohol do you have on a typical day when you are drinking? 1 or 2 3 Q3: How often do you have si x or more drinks on one occasion? Less than monthly 07/05/2022 Overall Financial Resource Strain (CARDIA) Answe r Date Recorded How hard is it for you to pa y for the very basics like food, housing, medical care, and heating? Somewhat hard 10/17/2021 PHQ-2 Answer Date Recorded PHQ-2 Total Score (If total score is 3 or more points, staff should administer the PHQ-9) 2 10/17/2021 Hunger Vital Sign Answer Date Recorded Within the past 12 months, y ou worried that your food would run out before you got the money to buy more. Often true Within the past 12 months, t he food you bought just didn't last and you didn't have money to get more. Sometimes true PRAPARE - Transportation Answer Date Re corded In the past 12 months, has l ack of transportation kept you from medical appointments or from getting medications? No 09/30 In the past 12 months, has l ack of transportation kept you from meetings, work, or from getting things needed for daily living? No 10/17/2021 Housing Stability Vital Sign Answer Iván e Recorded In the last 12 months, was t here a time when you were not able to pay the mortgage or rent on time? No 10/17/2021 In the last 12 months, how many places have you lived? 1 10/17/2021 In the last 12 months, was t here a time when you did not have a steady place to sleep or slept in a senior living (including now)? No 10/17/2021 Sex and Gender Information Value Date Recorded Sex Assigned at Not on file Legal Sex Male 12:58 AM DIRECTOR INTERNAL AUDIT Gender Identity Male 11/11/2018 10:31 AM CDT Sexual Orientation Straight 06/09/2019 5: 34 PM DIRECTOR INTERNAL AUDIT documented as of this encounter Plan of Treatment Not on file documented as of this encounter Procedures Procedure Name Priority Date/Time Associated Diagnosis Comments SCAN - RADIOLOGY/IMAGING 07/19/2022 documented in this encounter Results * SCAN - RADIOLOGY/IMAGING (07/19/2022) Anatomical Region Laterality Modality Other us Provider Scanning Edited Result - Final documented in this encounter Visit Diagnoses Not on filedocumented in this encounter Additional Health Concerns Infection Onset Date Last Indicated Resolved Time MDR gram neg/ESBL 04/05/2022 07/05/2022 09/22/2022 3:20 PM CDT C. difficile 08/15/2022 08/21/2022 09/22/2022 [...] Suspected 06/07/2023 06/07/2023 06/07/2023 12:46 PM DIRECTOR INTERNAL AUDIT COVID19 06/07/2023 06/07/2023 06/22/2023 3:06 AM DIRECTOR INTERNAL AUDIT COVID: Recovered Comment:Added based on recent COVID infection. 06/22/2023 06/22/2023 09/20/2023 3:05 AM C DT COVID: Suspected 07/24/2023 07/24/2023 07/24/2023 3:53 PM DIRECTOR INTERNAL AUDIT Diarrhea 07/30/2023 07/30/2023 08/13/2023 3:05 AM DIRECTOR INTERNAL AUDIT COVID: Suspected 08/30/2023 08/30/2023 08/30/2023 4:52 PM DIRECTOR INTERNAL AUDIT COVID: Suspected 10/12/2023 10/12/2023 10/12/2023 7:57 PM CDT Rhino/Enterovirus 10/12/2023 10/12/2023 10/26/2023 3:05 AM CDT COVID: Suspected 07/10/2024 07/10/2024 07/10/2024 4:53 PM DIRECTOR INTERNAL AUDIT COVID: Suspected Comment:07/16/2024 IP Review: no outstanding test, last RPP negative. Mary Tiwari RN 07/16/2024 07/16/2024202 5 10:51 AM DIRECTOR INTERNAL AUDIT COVID19 Comment:07/16/2024 IP Review: added by CONY, CLAUDIO negative. Mary Tiwari RN 07/16/2024 07/16/2024 07/16/2024 10:51 AM DIRECTOR INTERNAL AUDIT MRSA Comment:nasalMRSA Isolation [facility] 09/03/24 07/16/2024 08/15/2024 09/03/2024 6:[address] C. difficile suspected 07/19/2024 07/19/202407/19 2:34 PM DIRECTOR INTERNAL AUDIT COVID: Suspected 07/23/2024 07/23/2024 07/23/2024 11:28 PM DIRECTOR INTERNAL AUDIT C. difficile suspected 07/23/2024 07/24/202407/24 10:31 AM DIRECTOR INTERNAL AUDIT Norovirus suspected 07/23/2024 07/24/2024 07/24/19 9:37 AM DIRECTOR INTERNAL AUDIT VRE Comment:Contact Precautions (gown and gloves) - not eligible for IP review until 6 months after positive culture - Jerod QURESHI, CONY 10/01/24 07/24/2024 09/20/2024 COVID: Suspected 08/09/2024 08/09/2024 08/09/2024 9:40 AM DIRECTOR INTERNAL AUDIT Influenza, adult Comment:08/26/2024 IP Review: pt afebrile but on antipyretics. Needs 24 hours off antipyretics and symptoms significantly improved/resolved in order for isolation to be discontinued. Mary Tiwari RN 08/15/2024 08/15/2024 08/29/2024 3:06 AM DIRECTOR INTERNAL AUDIT Coronavirus, droplet 08/15/2024 08/15/2024 025 3:06 AM DIRECTOR INTERNAL AUDIT C. difficile suspected 09/19/2024 09/19/202409/20 3:05 AM [...] documented as of this encounter Care Teams Hotel Housekeeper Relationship Specialty Start Date End Date Kenton Ricks MD PCP - General 08/14/16 Pebbles Nelson MD Referring Physician Cardiology 02/07/19 Aylin Russ MD [address] [facility] [address] [place] [address] Referring Physician Pulmonary Disease 02/07/19 Maricruz Ramirez NP [address] [facility] [address] [place] [address] Nurse Practitioner Cardiovascular Disease 09/25/21 Joanne Lopez, CONY Registered Nurse Pulmonary Disease 08/24/22 Leatha Cristina RMA Surgical Prehabilitation and Readiness (SPAR) Coordinator 09/01/22 01/02/23 Ben Chahal MD PhD 10 [facility] # 2 [place] [address] Medical Oncologist/Motorcycle Mechanic Medical Oncology 10/05/22 Chace Oliva MD [address] [facility] [address] [place] [address] Consulting Physician Infectious Diseases 12/22/2204/01 Giovanna Alexis MD [address] [place] [address] Radiation Oncologist Radiation Oncology 03/09/23 Taisha Suarez RN Surgical Prehabilitation and Readiness (SPAR) Coordinator General Surgery 03/20/23 04/10/23 Sandra Ma MD [address] DIV IM MEDICAL ONCOLOGY, [facility] 7A, [address]B, [address] [place] [address] Consulting Physician Medical Oncology 04/25/23 05/09/23 Abby Higgins MD PhD [address] DIV IM MEDICAL ONCOLOGY, [facility] 7A, [address]B, [address] [place] [address] Medical Oncologist/Motorcycle Mechanic Medical Oncology 05/10/23 Adrian Martinez MD [address] DIV SURG TRANSPLANT, [facility] [address] [place] [address] Surgical Oncologist Surgical Oncology 05/28/23 Vera Pérez PA [address] [id number] [place] [address] Physician Apron Trimmer Colon and Rectal Surgery 09/13/23 Jim Frausto MD [address] [facility] [phone] [place] [address] Surgeon Colon and Rectal Surgery 11/21/23 Анна Robert, RN [address] [facility] [address] [place], [place] [address] SHOP Outpatient Summer Intern 09/29/24 10/01/24 documented as of this encounter
--- OUTSIDE RECORDS SUMMARY | 2025-02-09 08:25 | XMS_ITS | Clinical Summary ---
Author Organization [facility] Address [address] [place] [address] Care Team Providers Care Landing Man Name Role Phone Kenton Ricks MD Primary Care Provider [phone] Allergies Active Allergy Reactions Criticality Noted Date Comments Menthol Other (See Comments) 09/17/2017 Moura Skin Medications aspirin (ZULEIMA CHEWABLE) 81 mg Tablet, Chewable Take 1 Tablet by mouth daily. 10/29/2017 Active enalapril (VASOTEC) 2.5 mg tablet Take 2.5 mg by mouth daily. 0 10/24/2018 Active furosemide (LASIX) 40 mg tablet Take 0.5 Tablets by mouth 2 times daily. 09/18/2017 Active gabapentin (NEURONTIN) 300 mg capsule Take 300 mg by mouth daily at bedtime. 2 10/11/2018 Active pramipexole (MIRAPEX) 1 mg Tablet Take 1 mg by mouth TAKE 1 BY MOUTH IN THE MORNING AND 2 IN THE EVENING . 09/18/2017 Active solifenacin (VESICARE) 10 mg Tablet Take 10 mg by mouth daily. Active pantoprazole (PROTONIX) 20 mg Tablet, Delayed Release (E.C.) Take 20 mg by mouth daily. Active polycarbophil calcium (FIBERCON) 625 mg tablet Take 625 mg by mouth daily. Active Active Problems No known active problems Family History Medical History Relation Name Comments SIDS Brother 1 Healthy Brother 3 Diabetes Father Heart Disease Father Breast Cancer Mother Cancer Mother Cancer Sister 1 Breast Cancer Sister 2 Cancer Sister 2 Cancer Sister 3 Thyroid Disease Sister 3 Breast Cancer Sister 4 Cancer Sister 4 Skin Cancer Sister 4 Breast Cancer Sister 6 Breast Cancer Sister 7 Breast Cancer Sister 8 Breast Cancer Sister 9 Relation Name Status Comments Brother 1 Brother 2 Alive Brother 3 Alive Father Mother Sister 1 Sister 2 Sister 3 Alive Sister 4 Alive Sister 5 Alive Sister 6 Alive Sister 7 Alive Sister 8 Alive Sister 9 Alive Social History Tobacco Use Types Packs/Day Years Used Date Smoking Tobacco: Former Cigarettes 0.3 5 0 11/22/1973 - 11/22/1978 Smokeless Tobacco: Never Alcohol Use Standard Drinks/Week Comments Yes 0 (1 standard drink = 0.6 oz pur e alcohol) Sex and Gender Information Value Date Recorded Sex Assigned at Not on file Legal Sex Male 4:35 AM PARTY PLAN SELLING DISTRIBUTOR Gender Identity Not on file Sexual Orientation Not on file Last Filed Vital Signs Vital Sign Reading Time Taken Comments Blood Pressure 132/61 12/17/2018 10:32 AM CDT Pulse 60 12/17/2018 10:32 AM CDT Temperature 36.6 C (97.8 F) 12/17/2018 10:32 AM CDT Respiratory Rate - - Oxygen Saturation 96% 12/17/2018 10: 32 AM CDT Inhaled Oxygen Concentration - - Weight 121.9 kg (268 lb 12.8 oz) 2018 10:32 AM CDT Height 175.3 cm (5' 9) 12/17/2018 10:3 2 AM CDT Body Mass Index 39.69 12/17/2018 10:32 AM CDT Plan of Treatment Health Maintenance Due Date Last Done Comments DIABETES ANNUAL FOOT EXAM 1973 DIABETES ANNUAL RETINAL EXAM 1973 DIABETES MICROALBUMIN ANNUAL SCREEN 1973 LDL CHOLESTEROL ANNUAL 1973 DTAP/TDAP/TD VACCINES (1 - Tdap) 1974 PNEUMOCOCCAL VACCINE 50+ YEARS (1 of 2 - PCV) 03/30/19 74 COLORECTAL SCREENING 2000 Colorectal Cancer Screening 2000 FIT-DNA Q 3 years 2000 FIT/FOBT Q 1 year 2000 Flex Sig/CT Colonography Q 5 years 2000 ZOSTER VACCINE (1 of 2) 2005 DIABETES HBA1C Q 6 MONTHS 03/22/2018 09/19/2017 INFLUENZA VACCINE (#1) 2025 RSV VACCINE (60+ or ) (1 - 1-dose 75+ series) 2030 Insurance BS BLUE ACCESS/TRUE BLUE PPO Care Teams Landing Man Relationship Specialty Start Date End Date Kenton Ricks MD [address] [place] [address] PCP - General Family Practice 11/15/18
--- OUTSIDE RECORDS SUMMARY | 2025-02-09 08:25 | XMS_ITS | Encounter Summary ---
Author Organization [facility] Address [address] [place] [address] Phone Care Team Providers Care Ui Ux Developer Name Role Phone Kenton Ricks MD Primary Care Provider + [phone] Kenton Ricks MD Primary Care Provider + [phone] Pebbles Nelson MD Unavailable [phone] Aylin Russ MD Unavailable [phone] Maricruz Ramirez NP Unavailable [phone] Joanne Lopez RN Unavailable Padmini Leatha Carter Unavailable Unavailable Ben Chahal MD PhD Unavailable +[phone] Chace Oliva MD Unavailable [phone] Giovanna Alexis MD Unavailable Taisha Suarez RN Unavailable Unavaila Sandra Aguirre MD Unavailable +[phone] Abby Higgins MD PhD Unavailable + Adrian Martinez MD Unavailable Vera Pérez Unavailable [phone] Jim Frausto MD Unavailable Анна Robert RN Unavailable [phone] Encounter Details Date Type Department Care Team (Late st Contact Info) Description 08/18/2014 Orders Only [facility] Provider, MD Max [address] [place] [address] Social History Tobacco Use Types Packs/Day Years Used Date Smoking Tobacco: Never Assessed Sex and Gender Information Value Date Recorded Sex Assigned at Not on file Legal Sex Male 12:58 AM ADMISSIONS SPECIALIST Gender Identity Male 11/11/2018 10:31 AM CDT Sexual Orientation Straight 06/09/2019 5: 34 PM ADMISSIONS SPECIALIST documented as of this encounter Plan of Treatment Not on file documented as of this encounter Procedures Procedure Name Priority Date/Time Associated Diagnosis Comments CARDIOLOGY REPORT 08/18/2014 documented in this encounter Results * CARDIOLOGY REPORT (08/18/2014) Anatomical Region Laterality Modality Other Narrative 08/18/2014 Ordered by an unspecified provider. Historical Provider [...] COVID: Suspected 06/07/2023 06/07/2023 06/07/2023 12:46 PM ADMISSIONS SPECIALIST COVID19 06/07/2023 06/07/2023 06/22/2023 3:06 AM ADMISSIONS SPECIALIST COVID: Recovered Comment:Added based on recent COVID infection. 06/22/2023 06/22/2023 09/20/2023 3:05 AM C DT COVID: Suspected 07/24/2023 07/24/2023 07/24/2023 3:53 PM ADMISSIONS SPECIALIST Diarrhea 07/30/2023 07/30/2023 08/13/2023 3:05 AM ADMISSIONS SPECIALIST COVID: Suspected 08/30/2023 08/30/2023 08/30/2023 4:52 PM ADMISSIONS SPECIALIST COVID: Suspected 10/12/2023 10/12/2023 10/12/2023 7:57 PM CDT Rhino/Enterovirus 10/12/2023 10/12/2023 10/26/2023 3:05 AM CDT COVID: Suspected 07/10/2024 07/10/2024 07/10/2024 4:53 PM ADMISSIONS SPECIALIST COVID: Suspected Comment:07/16/2024 IP Review: no outstanding test, last RPP negative. Mary Tiwari RN 07/16/2024 07/16/2024 10:51 AM ADMISSIONS SPECIALIST COVID19 Comment:07/16/2024 IP Review: added by RN, RPP negative. Mary Tiwari RN 07/16/2024 07/16/2024 07/16/2024 10:51 AM ADMISSIONS SPECIALIST MRSA Comment:nasalMRSA Isolation Custodial 09/03/24 07/16/2024 08/15/2024 09/03/2024 6:[address] C. difficile suspected 07/19/2024 07/19/202407/19 2:34 PM ADMISSIONS SPECIALIST COVID: Suspected 07/23/2024 07/23/2024 07/23/2024 11:28 PM ADMISSIONS SPECIALIST C. difficile suspected 07/23/2024 07/24/202407/24 10:31 AM ADMISSIONS SPECIALIST Norovirus suspected 07/23/2024 07/24/2024 07/24/19 9:37 AM ADMISSIONS SPECIALIST VRE Comment:Contact Precautions (gown and gloves) - not eligible for IP review until 6 months after positive culture - Jerod QURESHI, CONY 10/01/24 07/24/2024 09/20/2024 COVID: Suspected 08/09/2024 08/09/2024 08/09/2024 9:40 AM ADMISSIONS SPECIALIST Influenza, adult Comment:08/26/2024 IP Review: pt afebrile but on antipyretics. Needs 24 hours off antipyretics and symptoms significantly improved/resolved in order for isolation to be discontinued. Mary Tiwari RN 08/15/2024 08/15/2024 08/29/2024 3:06 AM ADMISSIONS SPECIALIST Coronavirus, droplet 08/15/2024 08/15/202408/29/ 025 3:06 AM ADMISSIONS SPECIALIST C. difficile suspected 09/19/2024 09/19/202409/20 3:05 AM [...] documented as of this encounter Care Teams Ui Ux Developer Relationship Specialty Start Date End Date Kenton Ricks MD PCP - General 08/14/16 Kenton Ricks MD PCP - General 09/17/08 08/13/16 Pebbles Nelson MD Referring Physician Cardiology 02/07/19 Aylin Russ MD [address] [place] [address] Referring Physician Pulmonary Disease 02/07/19 Maricruz Ramirez PLASTICS FACTORY WORKER [address] [place] [address] Nurse Practitioner Cardiovascular Disease 09/25/21 Joanne Lopez, RN Registered Nurse Pulmonary Disease 08/24/22 Leatha Cristina RMA Surgical Prehabilitation and Readiness (SPAR) Coordinator 09/01/22 01/02/23 Ben Chahal MD PhD 10 [facility] [address] 2 [place] [address] Medical Oncologist/Day Care Aide Medical Oncology 10/05/22 Chace Oliva MD [address] [facility] [address] [place] [address] Consulting Physician Infectious Diseases 12/22/2204/01 Giovanna Alexis MD [address] [place] [address] Radiation Oncologist Radiation Oncology 03/09/23 Taisha Suarez, experimental assembler Prehabilitation and Readiness (SPAR) Coordinator General Surgery 03/20/23 04/10/23 Sandra Ma MD [address] DIV IM MEDICAL ONCOLOGY, [facility] 7A, 7B, 7C [place] [address] Consulting Physician Medical Oncology 04/25/23 05/09/23 Abby Higgins MD PhD [address] DIV IM MEDICAL ONCOLOGY, [facility] 7A, 7B, [address]C [place] [address] Medical Oncologist/Day Care Aide Medical Oncology 05/10/23 Adrian Martinez MD [address] DIV SURG TRANSPLANT, [address] [place] [address] Surgical Oncologist Surgical Oncology 05/28/23 Vera Pérez PA [address] [place] [id number] [place] [address] Physician Risk Control Specialist Colon and Rectal Surgery 09/13/23 Jim Frausto MD [address] [facility] [phone] [place] [address] Surgeon Colon and Rectal Surgery 11/21/23 Анна Robert, RN [address] [facility] [address] [place] [address] SHOP Outpatient Park Maintenance Technician 09/29/24 10/01/24 documented as of this encounter
--- OUTSIDE RECORDS SUMMARY | 2025-02-09 08:25 | XMS_ITS | Encounter Summary ---
Author Organization [facility] Address [address] [place] [address] Phone Care Team Providers Care Brand Designer Name Role Phone Kenton Ricks MD Primary Care Provider + [phone] Kenton Ricks MD Primary Care Provider + [phone] Pebbles Nelson MD Unavailable [phone] Aylin Russ MD Unavailable [phone] Maricruz Ramirez NP Unavailable [phone] Joanne Lopez RN Unavailable Padmini Leatha Carter Unavailable Unavailable Ben Chahal MD PhD Unavailable [phone] Chace Oliva MD Unavailable [phone] Giovanna Alexis MD Unavailable Taisha Suarez RN Unavailable Unavaila Sandra Aguirre MD Unavailable [phone] Abby Higgins MD PhD Unavailable + Adrian Martinez MD Unavailable Vera Pérez Unavailable Jim Frausto MD Unavailable [phone] Анна Robert RN Unavailable [phone] Encounter Details Date Type Department Care Team (Late st Contact Info) Description 09/01/2014 Orders Only [facility] Provider, MD Max [address] [place] [address] Social History Tobacco Use Types Packs/Day Years Used Date Smoking Tobacco: Never Assessed Sex and Gender Information Value Date Recorded Sex Assigned at Not on file Legal Sex Male 12:58 AM KILN MAINTENANCE Gender Identity Male 11/11/2018 10:31 AM CDT Sexual Orientation Straight 06/09/2019 5: 34 PM KILN MAINTENANCE documented as of this encounter Plan of Treatment Not on file documented as of this encounter Procedures Procedure Name Priority Date/Time Associated Diagnosis Comments CARDIOLOGY REPORT 09/01/2014 documented in this encounter Results * CARDIOLOGY REPORT (09/01/2014) Anatomical Region Laterality Modality Other Narrative 09/01/2014 Ordered by an unspecified provider. Historical Provider [...] COVID: Suspected 06/07/2023 06/07/2023 06/07/2023 12:46 PM KILN MAINTENANCE COVID19 06/07/2023 06/07/2023 06/22/2023 3:06 AM KILN MAINTENANCE COVID: Recovered Comment:Added based on recent COVID infection. 06/22/2023 06/22/2023 09/20/2023 3:05 AM C DT COVID: Suspected 07/24/2023 07/24/2023 07/24/2023 3:53 PM KILN MAINTENANCE Diarrhea 07/30/2023 07/30/2023 08/13/2023 3:05 AM KILN MAINTENANCE COVID: Suspected 08/30/2023 08/30/2023 08/30/2023 4:52 PM KILN MAINTENANCE COVID: Suspected 10/12/2023 10/12/2023 10/12/2023 7:57 PM CDT Rhino/Enterovirus 10/12/2023 10/12/2023 10/26/2023 3:05 AM CDT COVID: Suspected 07/10/2024 07/10/2024 07/10/2024 4:53 PM KILN MAINTENANCE COVID: Suspected Comment:07/16/2024 IP Review: no outstanding test, last RPP negative. Mary Tiwari RN 07/16/2024 07/16/2024 10:51 AM KILN MAINTENANCE COVID19 Comment:07/16/2024 IP Review: added by RN, RPP negative. Mary Tiwari RN 07/16/2024 07/16/2024 07/16/2024 10:51 AM KILN MAINTENANCE MRSA Comment:nasalMRSA Isolation Residential 09/03/24 07/16/2024 08/15/2024 09/03/2024 6:[address] C. difficile suspected 07/19/2024 07/19/202407/19 2:34 PM KILN MAINTENANCE COVID: Suspected 07/23/2024 07/23/2024 07/23/2024 11:28 PM KILN MAINTENANCE C. difficile suspected 07/23/2024 07/24/202407/24 10:31 AM KILN MAINTENANCE Norovirus suspected 07/23/2024 07/24/2024 07/24/19 9:37 AM KILN MAINTENANCE VRE Comment:Contact Precautions (gown and gloves) - not eligible for IP review until 6 months after positive culture - Jerod QURESHI, CONY 10/01/24 07/24/2024 09/20/2024 COVID: Suspected 08/09/2024 08/09/2024 08/09/2024 9:40 AM KILN MAINTENANCE Influenza, adult Comment:08/26/2024 IP Review: pt afebrile but on antipyretics. Needs 24 hours off antipyretics and symptoms significantly improved/resolved in order for isolation to be discontinued. Mary Tiwari RN 08/15/2024 08/15/2024 08/29/2024 3:06 AM KILN MAINTENANCE Coronavirus, droplet 08/15/2024 08/15/202408/29/ 025 3:06 AM KILN MAINTENANCE C. difficile suspected 09/19/2024 09/19/202409/20 3:05 AM [...] documented as of this encounter Care Teams Brand Designer Relationship Specialty Start Date End Date Kenton Ricks MD PCP - General 08/14/16 Kenton Ricks MD PCP - General 09/17/08 08/13/16 Pebbles Nelson MD Referring Physician Cardiology 02/07/19 Aylin Russ MD [address] [place] [address] Referring Physician Pulmonary Disease 02/07/19 Maricruz Ramirez KILN PULLER [address] [place] [address] Nurse Practitioner Cardiovascular Disease 09/25/21 Joanne Lopez, RN Registered Nurse Pulmonary Disease 08/24/22 Leatha Cristina RMA Surgical Prehabilitation and Readiness (SPAR) Coordinator 09/01/22 01/02/23 Ben Chahal MD PhD 10 [facility] # 2 [place] [address] Medical Oncologist/Field Installation Technician Medical Oncology 10/05/22 Chace Oliva MD [address] [facility] [address] [place] [address] Consulting Physician Infectious Diseases 12/22/2204/01 Giovanna Alexis MD [address] [place] [address] Radiation Oncologist Radiation Oncology 03/09/23 Taisha Suarez, senior financial reporting analyst Prehabilitation and Readiness (SPAR) Coordinator General Surgery 03/20/23 04/10/23 Sandra Ma MD [address] DIV IM MEDICAL ONCOLOGY, [facility] 7A, 7B, 7C [place] [address] Consulting Physician Medical Oncology 04/25/23 05/09/23 Abby Higgins MD PhD [address] DIV IM MEDICAL ONCOLOGY, [facility] 7A, 7B, [address] [place] [address] Medical Oncologist/Field Installation Technician Medical Oncology 05/10/23 Adrian Martinez MD [address] DIV SURG TRANSPLANT, [address] [place] [address] Surgical Oncologist Surgical Oncology 05/28/23 Vera Pérez PA [address] [place] [id number] [place] [address] Physician Trencher Driver Colon and Rectal Surgery 09/13/23 Jim Frausto MD [address] [facility] [phone] [place] [address] Surgeon Colon and Rectal Surgery 11/21/23 Анна Robert, RN [address] [facility] [address] [place] [address] SHOP Outpatient Irrigator Valve Pipe 09/29/24 10/01/24 documented as of this encounter
--- OUTSIDE RECORDS SUMMARY | 2025-02-09 08:25 | XMS_ITS | Clinical Summary ---
Author Organization [facility] Address [address] [place] [address] Care Team Providers Care County Bailiff Name Role Phone Kenton Ricks MD Primary Care Provider [phone] Source Comments [facility],non-owned Affiliates and Associated Physician Practices is amultiple site organization consisting of ambulatory clinics and hospital sitesin [place], [place], [place] and [place]. This disclosure is being madepursuant to the Care Everywhere program and may not contain all information available regarding this patient. Last updated 18.[facility] Medications * Be aware that medications may not be up to date on this document. Alwaysverify current medications with the patient. oxybutynin CR 24hr (DITROPAN-XL) 10 MG tablet Take 2 tablets by mouth once daily 60 tablet 2 03/25/2018 Active Social History Tobacco Use Types Packs/Day Years Used Date Smoking Tobacco: Never Assessed Sex and Gender Information Value Date Recorded Sex Assigned at Not on file Legal Sex Male 6:18 AM MANAGER BABY Gender Identity Not on file Sexual Orientation Not on file Last Filed Vital Signs Vital Sign Reading Time Taken Comments Blood Pressure 126/67 07/06/2017 11:17 AM MANAGER BABY Pulse 60 07/06/2017 11:17 AM MANAGER BABY Temperature 36.4 C (97.5 F) 07/06/2017 11:17 AM MANAGER BABY Respiratory Rate 16 06/29/2017 12:33 PM MANAGER BABY Oxygen Saturation 99% 07/06/2017 11:17 AM MANAGER BABY Inhaled Oxygen Concentration - - Weight 115.7 kg (255 lb) 07/06/2017 11:17 AM MANAGER BABY Height 175.3 cm (5' 9) 07/06/2017 11:17 AM MANAGER BABY Body Mass Index 37.66 07/06/2017 11:17 AM MANAGER BABY Plan of Treatment Health Maintenance Due Date Last Done Comments COLOGUARD (AGES 45-75) - COLON CA SCREENING 1955 CT COLONOGRAPHY - COLON CA SCREENING 1955 FIT - COLON CA SCREENING 1955 FLEX SIG - COLON CA SCREENING 1955 LIPID TESTING 1955 DTAP/TDAP/TD VACCINES (1 - Tdap) 1974 PNEUMOCOCCAL VACCINE 50+ (1 of 1 - PCV) 2005 ZOSTER VACCINE (1 of 2) 2005 COVID-19 VACCINE (1 - 2023- season) 2024 DEPRESSION SCREENING 07/02/2024 INFLUENZA VACCINE (#1) 2025 , 04/01/2017, 06/14/2016, Additional history exists Respiratory Syncytial Virus (RSV) Vaccine Pt: or over 60 yrs (1 - 1-dose 75+ series) 2030 COLON MONITORING 07/23/2033 07/23/2023 COLONOSCOPY - COLON CA SCREENING 07/23/2033 07/23/2023 Colorectal Cancer Screening 07/23/2033 HEPATITIS C SCREENING Completed 08/21/2022 HEPATITIS B VACCINE Aged Out No longe r eligible based on patient's age to complete this topic HIB VACCINE Aged Out No longer eligi ble based on patient's age to complete this topic HPV VACCINE Aged Out No longer eligi ble based on patient's age to complete this topic MENINGOCOCCAL (Group B) VACCINE SHARED DECISION-MAKING Aged Out No longer eligible based on patient's age to complete this topic MENINGOCOCCAL GROUPS A/C/Y/W VACCINE Aged Out No longer eligible based on patient's age to complete this topic Care Teams County Bailiff Relationship Specialty Start Date End Date Kenton Ricks MD [address] [place] [address] PCP - General Family Medicine 08/20/15
--- OUTSIDE RECORDS SUMMARY | 2025-02-09 08:25 | XMS_ITS | Encounter Summary ---
Author Organization [facility] Address [address] [place] [address] Phone Care Team Providers Care Bit Sharpener Name Role Phone Kenton Ricks MD Primary Care Provider + [phone] Pebbles Nelson MD Unavailable [phone] Aylin Russ MD Unavailable [phone] Maricruz Ramirez NP Unavailable [phone] Joanne Lopez RN Unavailable Padmini Leatha Carter Unavailable Unavailable Ben Chahal MD PhD Unavailable [phone] Chace Oliva MD Unavailable [phone] Giovanna Alexis MD Unavailable Taisha Suarez RN Unavailable Unavaila Sandra Aguirre MD Unavailable [phone] Abby Higgins MD PhD Unavailable + Adrian Martinez MD Unavailable [phone] Vera Pérez Unavailable [phone] Jim Frausto MD Unavailable [phone] Анна Robert RN Unavailable [phone] Encounter Details Date Type Department Care Team (Late st Contact Info) Description 08/08/2022 Orders Only [facility] Scanning, [...] week 10/17/2021 How often do you attend [facility] or orthodoxy services? More than 4 times per year 10/17/2021 Do you belong to any clubs o r organizations such as jehovah's witness groups, unions, fraternal or athletic groups, or [...] slept in a [facility] (including now)? No 10/17/2021 Sex and Gender Information Value Date Recorded Sex Assigned at Not on file Legal Sex Male 12:58 AM RECTIFIER OPERATOR Gender Identity Male 11/11/2018 10:31 AM CDT Sexual Orientation Straight 06/09/2019 5: 34 PM RECTIFIER OPERATOR documented as of this encounter Plan of Treatment Not on file documented as of this encounter Procedures Procedure Name Priority Date/Time Associated Diagnosis Comments SCAN - LABS 08/08/2022 documented in this encounter Results * SCAN - LABS (08/08/2022) us Provider Scanning Final Result documented in [...] COVID: Suspected 06/07/2023 06/07/2023 06/07/2023 12:46 PM RECTIFIER OPERATOR COVID19 06/07/2023 06/07/2023 06/22/2023 3:06 AM RECTIFIER OPERATOR COVID: Recovered Comment:Added based on recent COVID infection. 06/22/2023 06/22/2023 09/20/2023 3:05 AM C DT COVID: Suspected 07/24/2023 07/24/2023 07/24/2023 3:53 PM RECTIFIER OPERATOR Diarrhea 07/30/2023 07/30/2023 08/13/2023 3:05 AM RECTIFIER OPERATOR COVID: Suspected 08/30/2023 08/30/2023 08/30/2023 4:52 PM RECTIFIER OPERATOR COVID: Suspected 10/12/2023 10/12/2023 10/12/2023 7:57 PM CDT Rhino/Enterovirus 10/12/2023 10/12/2023 10/26/2023 3:05 AM CDT COVID: Suspected 07/10/2024 07/10/2024 07/10/2024 4:53 PM RECTIFIER OPERATOR COVID: Suspected Comment:07/16/2024 IP Review: no outstanding test, last RPP negative. Mary Tiwari, CONY 07/16/2024 07/16/2024 10:51 AM RECTIFIER OPERATOR COVID19 Comment:07/16/2024 IP Review: added by CLAUDIO DONNELLY negative. Mary Tiwari RN 07/16/2024 07/16/2024 07/16/2024 10:51 AM RECTIFIER OPERATOR MRSA Comment:nasalMRSA Isolation Nursing Home 09/03/24 07/16/2024 08/15/2024 09/03/2024 6:[address] C. difficile suspected 07/19/2024 07/19/202407/19 2:34 PM RECTIFIER OPERATOR COVID: Suspected 07/23/2024 07/23/2024 07/23/2024 11:28 PM RECTIFIER OPERATOR C. difficile suspected 07/23/2024 07/24/202407/24 10:31 AM RECTIFIER OPERATOR Norovirus suspected 07/23/2024 07/24/2024 07/24/19 9:37 AM RECTIFIER OPERATOR VRE Comment:Contact Precautions (gown and gloves) - not eligible for IP review until 6 months after positive culture - Jerod QURESHI, CONY 10/01/24 07/24/2024 09/20/2024 COVID: Suspected 08/09/2024 08/09/2024 08/09/2024 9:40 AM RECTIFIER OPERATOR Influenza, adult Comment:08/26/2024 IP Review: pt afebrile but on antipyretics. Needs 24 hours off antipyretics and symptoms significantly improved/resolved in order for isolation to be discontinued. Mary Tiwari RN 08/15/2024 08/15/2024 08/29/2024 3:06 AM RECTIFIER OPERATOR Coronavirus, droplet 08/15/2024 08/15/2024 025 3:06 AM RECTIFIER OPERATOR C. difficile suspected 09/19/2024 09/19/202409/20 3:05 AM [...] documented as of this encounter Care Teams Bit Sharpener Relationship Specialty Start Date End Date Kenton Ricks MD PCP - General 08/14/16 Pebbles Nelson MD Referring Physician Cardiology 02/07/19 Aylin Russ MD [address] [address] Referring Physician Pulmonary Disease 02/07/19 Maricruz Ramirez NP [address] [address] Nurse Practitioner Cardiovascular Disease 09/25/21 Joanne Lopez, CONY Registered Nurse Pulmonary Disease 08/24/22 Leatha Cristina RMA Surgical Prehabilitation and Readiness (SPAR) Coordinator 09/01/22 01/02/23 Ben Chahal MD PhD [address] DIV [place] [address] Medical Oncologist/Audio Visual Design Engineer Medical Oncology 10/05/22 Chace Oliva MD [address] [facility] [address] [place] [address] Consulting Physician Infectious Diseases 12/22/2204/01 Giovanna Alexis MD [address] [place] [address] Radiation Oncologist Radiation Oncology 03/09/23 Taisha Suarez, labor relations director Prehabilitation and Readiness (SPAR) Coordinator General Surgery 03/20/23 04/10/23 Sandra Ma MD [address] DIV IM MEDICAL ONCOLOGY, [facility] 7A, 7B, 7C [place] [address] Consulting Physician Medical Oncology 04/25/23 05/09/23 Abby Higgins MD PhD [address] DIV IM MEDICAL ONCOLOGY, [facility] 7A, 7B, [address] [place] [address] Medical Oncologist/Audio Visual Design Engineer Medical Oncology 05/10/23 Ardian Martinez MD [address] DIV SURG TRANSPLANT, [address] [place] [address] Surgical Oncologist Surgical Oncology 05/28/23 Vera Pérez PA [address] [place] [id number] [place] [address] Physician Graphotype Operator Colon and Rectal Surgery 09/13/23 Jim Frausto MD [address] [facility] [phone] [place] [address] Surgeon Colon and Rectal Surgery 11/21/23 Анна Robert, RN [address] [address] SHOP Outpatient Catch Basin Cleaner 09/29/24 10/01/24 documented as of this encounter
--- OUTSIDE RECORDS SUMMARY | 2025-02-09 08:25 | XMS_ITS | Encounter Summary ---
Author Organization [facility] Address [address] [place] [address] Care Team Providers Care Senior Applications Analyst Name Role Phone Kenton Ricks MD Primary Care Provider [phone] Encounter Details Date Type Department Care Team (Latest Contact Info) Description 08/02/2001 Outpatient Historical [facility] Shabbir Villavicencio MD [address] [facility] [address] [place] [address] CONVULSIONS, OTHER (CMS/HCC) (Primary Dx) Social History Tobacco Use Types Packs/Day Years Used Date Smoking Tobacco: Never Assessed Sex and Gender Information Value Date Recorded Sex Assigned at Not on file Legal Sex Male 4:35 AM SOCIAL MEDIA MARKETING MANAGER Gender Identity Not on file Sexual Orientation Not on file documented as of this encounter Plan of Treatment Not on file documented as of this encounter Visit Diagnoses Diagnosis Other convulsions- Primary documented in this encounter Care Teams Senior Applications Analyst Relationship Specialty Start Date End Date Kenton Ricks MD [address] [place] [address] PCP - General Family Practice 11/15/18 documented as of this encounter
--- OUTSIDE RECORDS SUMMARY | 2025-02-09 08:25 | XMS_ITS | Encounter Summary ---
Author Organization [facility] Address [address] [place] [address] Phone Care Team Providers Care Comparative Sociology Professor Name Role Phone Kenton Ricks MD Primary Care Provider + [phone] Kenton Ricks MD Primary Care Provider + [phone] Pebbles Nelson MD Unavailable [phone] Aylin Russ MD Unavailable +[phone] Maricruz Ramirez NP Unavailable [phone] Joanne Lopez RN Unavailable Padmini Leatha Carter Unavailable Unavailable Ben Chahal MD PhD Unavailable +[phone] Chace Oliva MD Unavailable [phone] Giovanna Alexis MD Unavailable Taisha Suarez RN Unavailable Unavaila Sandra Aguirre MD Unavailable +[phone] Abby Higgins MD PhD Unavailable + Adrian Martinez MD Unavailable Vera Pérez Unavailable [phone] Jim Frausto MD Unavailable [phone] Анна Robert RN Unavailable [phone] Encounter Details Date Type Department Care Team (Late st Contact Info) Description 05/08/2014 Orders Only [facility] Provider, MD Max [address] [place] [address] Social History Tobacco Use Types Packs/Day Years Used Date Smoking Tobacco: Never Assessed Sex and Gender Information Value Date Recorded Sex Assigned at Not on file Legal Sex Male 12:58 AM AIR SEALING TECHNICIAN Gender Identity Male 11/11/2018 10:31 AM CDT Sexual Orientation Straight 06/09/2019 5: 34 PM AIR SEALING TECHNICIAN documented as of this encounter Plan of Treatment Not on file documented as of this encounter Procedures Procedure Name Priority Date/Time Associated Diagnosis Comments CARDIOLOGY REPORT 05/08/2014 documented in this encounter Results * CARDIOLOGY REPORT (05/08/2014) Anatomical Region Laterality Modality Other Narrative 05/08/2014 Ordered by an unspecified provider. Historical Provider [...] COVID: Suspected 06/07/2023 06/07/2023 06/07/2023 12:46 PM AIR SEALING TECHNICIAN COVID19 06/07/2023 06/07/2023 06/22/2023 3:06 AM AIR SEALING TECHNICIAN COVID: Recovered Comment:Added based on recent COVID infection. 06/22/2023 06/22/2023 09/20/2023 3:05 AM C DT COVID: Suspected 07/24/2023 07/24/2023 07/24/2023 3:53 PM AIR SEALING TECHNICIAN Diarrhea 07/30/2023 07/30/2023 08/13/2023 3:05 AM AIR SEALING TECHNICIAN COVID: Suspected 08/30/2023 08/30/2023 08/30/2023 4:52 PM AIR SEALING TECHNICIAN COVID: Suspected 10/12/2023 10/12/2023 10/12/2023 7:57 PM CDT Rhino/Enterovirus 10/12/2023 10/12/2023 10/26/2023 3:05 AM CDT COVID: Suspected 07/10/2024 07/10/2024 07/10/2024 4:53 PM AIR SEALING TECHNICIAN COVID: Suspected Comment:07/16/2024 IP Review: no outstanding test, last RPP negative. Mary Tiwari RN 07/16/2024 07/16/2024 10:51 AM AIR SEALING TECHNICIAN COVID19 Comment:07/16/2024 IP Review: added by RN, RPP negative. Mary Tiwari RN 07/16/2024 07/16/2024 07/16/2024 10:51 AM AIR SEALING TECHNICIAN MRSA Comment:nasalMRSA Isolation Intermediate 09/03/24 07/16/2024 08/15/2024 09/03/2024 6:[address] C. difficile suspected 07/19/2024 07/19/202407/19 2:34 PM AIR SEALING TECHNICIAN COVID: Suspected 07/23/2024 07/23/2024 07/23/2024 11:28 PM AIR SEALING TECHNICIAN C. difficile suspected 07/23/2024 07/24/202407/24 10:31 AM AIR SEALING TECHNICIAN Norovirus suspected 07/23/2024 07/24/2024 07/24/19 9:37 AM AIR SEALING TECHNICIAN VRE Comment:Contact Precautions (gown and gloves) - not eligible for IP review until 6 months after positive culture - Jerod QURESHI, CONY 10/01/24 07/24/2024 09/20/2024 COVID: Suspected 08/09/2024 08/09/2024 08/09/2024 9:40 AM AIR SEALING TECHNICIAN Influenza, adult Comment:08/26/2024 IP Review: pt afebrile but on antipyretics. Needs 24 hours off antipyretics and symptoms significantly improved/resolved in order for isolation to be discontinued. Mary Tiwari RN 08/15/2024 08/15/2024 08/29/2024 3:06 AM AIR SEALING TECHNICIAN Coronavirus, droplet 08/15/2024 08/15/202408/29/ 025 3:06 AM AIR SEALING TECHNICIAN C. difficile suspected 09/19/2024 09/19/202409/20 3:05 [...] documented as of this encounter Care Teams Comparative Sociology Professor Relationship Specialty Start Date End Date Kenton Ricks MD PCP - General 08/14/16 Kenton Ricks MD PCP - General 09/17/08 08/13/16 Pebbles Nelson MD Referring Physician Cardiology 02/07/19 Aylin Russ MD [address] [place] [address] Referring Physician Pulmonary Disease 02/07/19 Maricruz Ramirez VALET PARKER [address] [place] [address] Nurse Practitioner Cardiovascular Disease 09/25/21 Joanne Lopez, RN Registered Nurse Pulmonary Disease 08/24/22 Leatha Cristina RMA Surgical Prehabilitation and Readiness (SPAR) Coordinator 09/01/22 01/02/23 Ben Chahal MD PhD [address] [facility] [address] 2 [place] [address] Medical Oncologist/Die Try Out Worker Medical Oncology 10/05/22 Chace Oliva MD [address] [facility] [address] [place] [address] Consulting Physician Infectious Diseases 12/22/2204/01 Giovanna Alexis MD [address] [place] [address] Radiation Oncologist Radiation Oncology 03/09/23 Taisha Suarez, student services dean Prehabilitation and Readiness (SPAR) Coordinator General Surgery 03/20/23 04/10/23 Sandra Ma MD [address] DIV IM MEDICAL ONCOLOGY, [facility] 7A, 7B, 7C [place] [address] Consulting Physician Medical Oncology 04/25/23 05/09/23 Abby Higgins MD PhD [address] DIV IM MEDICAL ONCOLOGY, [facility] 7A, 7B, [address] [place] [address] Medical Oncologist/Die Try Out Worker Medical Oncology 05/10/23 Adrian Martinez MD [address] DIV SURG TRANSPLANT, [address] [place] [address] Surgical Oncologist Surgical Oncology 05/28/23 Vera Pérez PA [address] [place] [id number] [place] [address] Physician Fire Apparatus Engineer Colon and Rectal Surgery 09/13/23 Jim Frausto MD [address] [place] [facility] [phone] [place] [address] Surgeon Colon and Rectal Surgery 11/21/23 Анна Robert, RN [address] [facility] [address] [place] [address] SHOP Outpatient Teaching Pastor 09/29/24 10/01/24 documented as of this encounter
--- OUTSIDE RECORDS SUMMARY | 2025-02-09 08:25 | XMS_ITS | Encounter Summary ---
Author Organization [employer] Address [address] [place] [address] Care Team Providers Care C Software Engineer Name Role Phone Kenton Ricks MD Primary Care Provider [phone] Encounter Details Date Type Department Care Team (Latest Contact Info) Description 05/17/2001 Outpatient [facility] [place] [place] [address] Kenyon Montenegro MD [address] [address] HEADACHE (Primary Dx) Social History Tobacco Use Types Packs/Day Years Used Date Smoking Tobacco: Never Assessed Sex and Gender Information Value Date Recorded Sex Assigned at Not on file Legal Sex Male 4:35 AM ADMINISTRATIVE SUPPORT MANAGER Gender Identity Not on file Sexual Orientation Not on file documented as of this encounter Plan of Treatment Not on file documented as of this encounter Visit Diagnoses Diagnosis Headache(784.0)- Primary Headache documented in this encounter Care Teams C Software Engineer Relationship Specialty Start Date End Date Kenton Ricks MD [address] [place] [id number] PCP - General Family Practice 11/15/18 documented as of this encounter
--- OUTSIDE RECORDS SUMMARY | 2025-02-09 08:25 | XMS_ITS | Encounter Summary ---
Author Organization [employer] Address [address] [place] [address] Care Team Providers Care Night Baker Name Role Phone Kenton Ricks MD Primary Care Provider [phone] Encounter Details Date Type Department Care Team (Late st Contact Info) Description 07/23/2001 Outpatient Historical Division of Neurology [address] [address] Shabbir Villavicencio MD [address] [facility] [place] [place] [address] Social History Tobacco Use Types Packs/Day Years Used Date Smoking Tobacco: Never Assessed Sex and Gender Information Value Date Recorded Sex Assigned at Not on file Legal Sex Male 4:35 AM PERCUSSION INSTRUCTOR Gender Identity Not on file Sexual Orientation Not on file documented as of this encounter Plan of Treatment Not on file documented as of this encounter Visit Diagnoses Not on filedocumented in this encounter Care Teams Night Baker Relationship Specialty Start Date End Date Kenton Ricks MD [address] [place] [address] PCP - General Family Practice 11/15/18 documented as of this encounter
--- OUTSIDE RECORDS SUMMARY | 2025-02-09 08:25 | XMS_ITS | Encounter Summary ---
Author Organization [facility] Address [address] [place] [address] Phone Care Team Providers Care Bath Solution Maker Name Role Phone Kenton Ricks MD Primary Care Provider + [phone] Kenton Ricks MD Primary Care Provider + [phone] Pebbles Nelson MD Unavailable [phone] Aylin Russ MD Unavailable [phone] Maricruz Ramirez NP Unavailable [phone] Joanne Lopez RN Unavailable Padmini Leatha Carter Unavailable Unavailable Ben Chahal MD PhD Unavailable [phone] Chace Oliva MD Unavailable [phone] Giovanna Alexis MD Unavailable Taisha Suarez RN Unavailable Unavaila Sandra Aguirre MD Unavailable [phone] Abby Higgins MD PhD Unavailable + Adrian Martinez MD Unavailable Vera Pérez Unavailable Jim Frausto MD Unavailable Анна Robert RN Unavailable [phone] Encounter Details Date Type Department Care Team (Late st Contact Info) Description 11/30/2014 Orders Only [facility] Provider, MD Max [address] [place] [address] Social History Tobacco Use Types Packs/Day Years Used Date Smoking Tobacco: Never Assessed Sex and Gender Information Value Date Recorded Sex Assigned at Not on file Legal Sex Male 12:58 AM SHOE PARTS MOLDER Gender Identity Male 11/11/2018 10:31 AM CDT Sexual Orientation Straight 06/09/2019 5: 34 PM SHOE PARTS MOLDER documented as of this encounter Plan of Treatment Not on file documented as of this encounter Procedures Procedure Name Priority Date/Time Associated Diagnosis Comments CARDIOLOGY REPORT 11/30/2014 documented in this encounter Results * CARDIOLOGY REPORT (11/30/2014) Anatomical Region Laterality Modality Other Narrative 11/30/2014 Ordered by an unspecified provider. Historical Provider [...] COVID: Suspected 06/07/2023 06/07/2023 06/07/2023 12:46 PM SHOE PARTS MOLDER COVID19 06/07/2023 06/07/2023 06/22/2023 3:06 AM SHOE PARTS MOLDER COVID: Recovered Comment:Added based on recent COVID infection. 06/22/2023 06/22/2023 09/20/2023 3:05 AM C DT COVID: Suspected 07/24/2023 07/24/2023 07/24/2023 3:53 PM SHOE PARTS MOLDER Diarrhea 07/30/2023 07/30/2023 08/13/2023 3:05 AM SHOE PARTS MOLDER COVID: Suspected 08/30/2023 08/30/2023 08/30/2023 4:52 PM SHOE PARTS MOLDER COVID: Suspected 10/12/2023 10/12/2023 10/12/2023 7:57 PM CDT Rhino/Enterovirus 10/12/2023 10/12/2023 10/26/2023 3:05 AM CDT COVID: Suspected 07/10/2024 07/10/2024 07/10/2024 4:53 PM SHOE PARTS MOLDER COVID: Suspected Comment:07/16/2024 IP Review: no outstanding test, last RPP negative. Mary Tiwari RN 07/16/2024 07/16/2024 10:51 AM SHOE PARTS MOLDER COVID19 Comment:07/16/2024 IP Review: added by RN, RPP negative. Mary Tiwari RN 07/16/2024 07/16/2024 07/16/2024 10:51 AM SHOE PARTS MOLDER MRSA Comment:nasalMRSA Isolation Long-Term 09/03/24 07/16/2024 08/15/2024 09/03/2024 6:[address] C. difficile suspected 07/19/2024 07/19/202407/19 2:34 PM SHOE PARTS MOLDER COVID: Suspected 07/23/2024 07/23/2024 07/23/2024 11:28 PM SHOE PARTS MOLDER C. difficile suspected 07/23/2024 07/24/202407/24 10:31 AM SHOE PARTS MOLDER Norovirus suspected 07/23/2024 07/24/2024 07/24/19 9:37 AM SHOE PARTS MOLDER VRE Comment:Contact Precautions (gown and gloves) - not eligible for IP review until 6 months after positive culture - Jerod QURESHI, CONY 10/01/24 07/24/2024 09/20/2024 COVID: Suspected 08/09/2024 08/09/2024 08/09/2024 9:40 AM SHOE PARTS MOLDER Influenza, adult Comment:08/26/2024 IP Review: pt afebrile but on antipyretics. Needs 24 hours off antipyretics and symptoms significantly improved/resolved in order for isolation to be discontinued. Mary Tiwari RN 08/15/2024 08/15/2024 08/29/2024 3:06 AM SHOE PARTS MOLDER Coronavirus, droplet 08/15/2024 08/15/202408/29/ 025 3:06 AM SHOE PARTS MOLDER C. difficile suspected 09/19/2024 09/19/202409/20 3:05 AM [...] documented as of this encounter Care Teams Bath Solution Maker Relationship Specialty Start Date End Date Kenton Ricks MD PCP - General 08/14/16 Kenton Ricks MD PCP - General 09/17/08 08/13/16 Pebbles Nelson MD Referring Physician Cardiology 02/07/19 Aylin Russ MD [address] [place] [address] Referring Physician Pulmonary Disease 02/07/19 Maricruz Ramirez APARTMENT LEASING AGENT [address] [place] [address] Nurse Practitioner Cardiovascular Disease 09/25/21 Joanne Lopez, RN Registered Nurse Pulmonary Disease 08/24/22 Leatha Cristina RMA Surgical Prehabilitation and Readiness (SPAR) Coordinator 09/01/22 01/02/23 Ben Chahal MD PhD [address] [facility] # 2 [place] [address] Medical Oncologist/Staging Technician Medical Oncology 10/05/22 Chace Oliva MD [address] [facility] [address] [place] [address] Consulting Physician Infectious Diseases 12/22/2204/01 Giovanna Alexis MD [address] [place] [address] Radiation Oncologist Radiation Oncology 03/09/23 Taisha Suarez, geology teacher Prehabilitation and Readiness (SPAR) Coordinator General Surgery 03/20/23 04/10/23 Sandra Ma MD [address] DIV IM MEDICAL ONCOLOGY, [facility] 7A, 7B, [address]C [place] [address] Consulting Physician Medical Oncology 04/25/23 05/09/23 Abby Higgins MD PhD [address] DIV IM MEDICAL ONCOLOGY, [facility] 7A, 7B, [address] [place] [address] Medical Oncologist/Staging Technician Medical Oncology 05/10/23 Adrian Martinez MD [address] DIV SURG TRANSPLANT, [address] [place] [address] Surgical Oncologist Surgical Oncology 05/28/23 Vera Pérez PA [address] [place] [phone] [place] [address] Physician Track Liner Operator Colon and Rectal Surgery 09/13/23 Jim Frausto MD [address] [facility] [phone] [place] [address] Surgeon Colon and Rectal Surgery 11/21/23 Анна Robert, RN [address] [facility] [address] [place] [address] SHOP Outpatient Naval Gunfire Spotter 09/29/24 10/01/24 documented as of this encounter
--- OUTSIDE RECORDS SUMMARY | 2025-02-09 08:25 | XMS_ITS | Encounter Summary ---
Author Organization [facility] Address [address] [place] [address] Phone Care Team Providers Care Corduroy Cutting Supervisor Name Role Phone Kenton Ricks MD Primary Care Provider + [phone] Kenton Ricks MD Primary Care Provider + [phone] Pebbles Nelson MD Unavailable [phone] Aylin Russ MD Unavailable [phone] Maricruz Ramirez NP Unavailable [phone] Joanne Lopez RN Unavailable Padmini Leatha Carter Unavailable Unavailable Ben Chahal MD PhD Unavailable [phone] Chace Oliva MD Unavailable [phone] Giovanna Alexis MD Unavailable Taisha Suarez RN Unavailable Unavaila Sandra Aguirre MD Unavailable [phone] Abby Higgins MD PhD Unavailable + Adrian Martinez MD Unavailable Vera Pérez Unavailable Jim Frausto MD Unavailable Анна Robert RN Unavailable [phone] Encounter Details Date Type Department Care Team (Late st Contact Info) Description 02/25/2014 Orders Only [facility] Provider, MD Max [address] [place] [address] Social History Tobacco Use Types Packs/Day Years Used Date Smoking Tobacco: Never Assessed Sex and Gender Information Value Date Recorded Sex Assigned at Not on file Legal Sex Male 12:58 AM TURN LASTER Gender Identity Male 11/11/2018 10:31 AM CDT Sexual Orientation Straight 06/09/2019 5: 34 PM TURN LASTER documented as of this encounter Plan of Treatment Not on file documented as of this encounter Procedures Procedure Name Priority Date/Time Associated Diagnosis Comments CARDIOLOGY REPORT 02/25/2014 documented in this encounter Results * CARDIOLOGY REPORT (02/25/2014) Anatomical Region Laterality Modality Other Narrative 02/25/2014 Ordered by an unspecified provider. Historical Provider [...] COVID: Suspected 06/07/2023 06/07/2023 06/07/2023 12:46 PM TURN LASTER COVID19 06/07/2023 06/07/2023 06/22/2023 3:06 AM TURN LASTER COVID: Recovered Comment:Added based on recent COVID infection. 06/22/2023 06/22/2023 09/20/2023 3:05 AM C DT COVID: Suspected 07/24/2023 07/24/2023 07/24/2023 3:53 PM TURN LASTER Diarrhea 07/30/2023 07/30/2023 08/13/2023 3:05 AM TURN LASTER COVID: Suspected 08/30/2023 08/30/2023 08/30/2023 4:52 PM TURN LASTER COVID: Suspected 10/12/2023 10/12/2023 10/12/2023 7:57 PM CDT Rhino/Enterovirus 10/12/2023 10/12/2023 10/26/2023 3:05 AM CDT COVID: Suspected 07/10/2024 07/10/2024 07/10/2024 4:53 PM TURN LASTER COVID: Suspected Comment:07/16/2024 IP Review: no outstanding test, last RPP negative. Mary Tiwari RN 07/16/2024 07/16/2024 10:51 AM TURN LASTER COVID19 Comment:07/16/2024 IP Review: added by RN, RPP negative. Mary Tiwari RN 07/16/2024 07/16/2024 07/16/2024 10:51 AM TURN LASTER MRSA Comment:nasalMRSA Isolation [facility] 09/03/24 07/16/2024 08/15/2024 09/03/2024 6:[address] C. difficile suspected 07/19/2024 07/19/202407/19 2:34 PM TURN LASTER COVID: Suspected 07/23/2024 07/23/2024 07/23/2024 11:28 PM TURN LASTER C. difficile suspected 07/23/2024 07/24/202407/24 10:31 AM TURN LASTER Norovirus suspected 07/23/2024 07/24/2024 07/24/19 9:37 AM TURN LASTER VRE Comment:Contact Precautions (gown and gloves) - not eligible for IP review until 6 months after positive culture - Jerod QURESHI, CONY 10/01/24 07/24/2024 09/20/2024 COVID: Suspected 08/09/2024 08/09/2024 08/09/2024 9:40 AM TURN LASTER Influenza, adult Comment:08/26/2024 IP Review: pt afebrile but on antipyretics. Needs 24 hours off antipyretics and symptoms significantly improved/resolved in order for isolation to be discontinued. Mary Tiwari RN 08/15/2024 08/15/2024 08/29/2024 3:06 AM TURN LASTER Coronavirus, droplet 08/15/2024 08/15/202408/29/ 025 3:06 AM TURN LASTER C. difficile suspected 09/19/2024 09/19/202409/20 3:05 AM [...] documented as of this encounter Care Teams Corduroy Cutting Supervisor Relationship Specialty Start Date End Date Kenton Ricks MD PCP - General 08/14/16 Kenton Ricks MD PCP - General 09/17/08 08/13/16 Pebbles Nelson MD Referring Physician Cardiology 02/07/19 Aylin Russ MD [address] [place] [address] Referring Physician Pulmonary Disease 02/07/19 Maricruz Ramirez COOKING APPLIANCE REPAIR TECHNICIAN [address] [place] [address] Nurse Practitioner Cardiovascular Disease 09/25/21 Joanne Lopez, RN Registered Nurse Pulmonary Disease 08/24/22 Leatha Cristina RMA Surgical Prehabilitation and Readiness (SPAR) Coordinator 09/01/22 01/02/23 Ben Chahal MD PhD 10 [facility] # 2 [place] [address] Medical Oncologist/Under Baster Medical Oncology 10/05/22 Chace Oliva MD [address] [facility] [address] [place] [address] Consulting Physician Infectious Diseases 12/22/2204/01 Giovanna Alexis MD [address] [place] [address] Radiation Oncologist Radiation Oncology 03/09/23 Taisha Suarez, home administrator Prehabilitation and Readiness (SPAR) Coordinator General Surgery 03/20/23 04/10/23 Sandra Ma MD [address] DIV IM MEDICAL ONCOLOGY, [facility] 7A, 7B, 7C [place] [address] Consulting Physician Medical Oncology 04/25/23 05/09/23 Abby Higgins MD PhD [address] DIV IM MEDICAL ONCOLOGY, [facility] 7A, 7B, [address] [place] [address] Medical Oncologist/Under Baster Medical Oncology 05/10/23 Adrian Martinez MD [address] DIV SURG TRANSPLANT, [address] [place] [address] Surgical Oncologist Surgical Oncology 05/28/23 Vera Pérez PA [address] [place] [id number] [place] [address] Physician Mud Analysis Well Logging Operator Colon and Rectal Surgery 09/13/23 Jim Frausto MD [address] [facility] [phone] [place] [address] Surgeon Colon and Rectal Surgery 11/21/23 Анна Robert, RN [address] [facility] [address] [place] [address] SHOP Outpatient Recreational Vehicle Repairer 09/29/24 10/01/24 documented as of this encounter
--- OUTSIDE RECORDS SUMMARY | 2025-02-09 08:25 | XMS_ITS | Encounter Summary ---
Author Organization [employer] Address [address] [place] [address] Care Team Providers Care Homicide Investigator Name Role Phone Kenton Ricks MD Primary Care Provider [phone] Encounter Details Date Type Department Care Team (Late st Contact Info) Description 09/30/2001 Outpatient [facility] [address] [place] [address]. [place] [address] Anika Rowan MD NO ADDRESS ON FILE Social History Tobacco Use Types Packs/Day Years Used Date Smoking Tobacco: Never Assessed Sex and Gender Information Value Date Recorded Sex Assigned at Not on file Legal Sex Male 4:35 AM SALES SERVICE EXECUTIVE Gender Identity Not on file Sexual Orientation Not on file documented as of this encounter Plan of Treatment Not on file documented as of this encounter Visit Diagnoses Not on filedocumented in this encounter Care Teams Homicide Investigator Relationship Specialty Start Date End Date Kenton Ricks MD [address] [place] [id number] PCP - General Family Practice 11/15/18 documented as of this encounter
--- OUTSIDE RECORDS SUMMARY | 2025-02-09 08:25 | XMS_ITS | Encounter Summary ---
Author Organization [employer] Address [address] [place] [address] Care Team Providers Care Billing Associate Name Role Phone Kenton Ricks MD Primary Care Provider [phone] Encounter Details Date Type Department Care Team (Late st Contact Info) Description 10/06/2001 Outpatient [facility] [address] [place] [address]. [place] [address] Anika Rowan MD NO ADDRESS ON FILE Social History Tobacco Use Types Packs/Day Years Used Date Smoking Tobacco: Never Assessed Sex and Gender Information Value Date Recorded Sex Assigned at Not on file Legal Sex Male 4:35 AM SOFTWARE SUPPORT SPECIALIST Gender Identity Not on file Sexual Orientation Not on file documented as of this encounter Plan of Treatment Not on file documented as of this encounter Visit Diagnoses Not on filedocumented in this encounter Care Teams Billing Associate Relationship Specialty Start Date End Date Kenton Ricks MD [address] [place] [id number] PCP - General Family Practice 11/15/18 documented as of this encounter
--- OUTSIDE RECORDS SUMMARY | 2025-02-09 08:25 | XMS_ITS | Encounter Summary ---
Author Organization [facility] Address [address] [place] [address] Phone Care Team Providers Care Education Courses Sales Representative Name Role Phone Kenton Ricks MD Primary Care Provider + [phone] Kenton Ricks MD Primary Care Provider + [phone] Pebbles Nelson MD Unavailable [phone] Aylin Russ MD Unavailable [phone] Maricruz Ramirez NP Unavailable [phone] Joanne Lopez RN Unavailable Padmini Leatha Carter Unavailable Unavailable Ben Chahal MD PhD Unavailable [phone] Chace Oliva MD Unavailable [phone] Giovanna Alexis MD Unavailable Taisha Suarez RN Unavailable Unavaila Sandra Aguirre MD Unavailable +[phone] Abby Higgins MD PhD Unavailable + Adrian Martinez MD Unavailable Vera Pérez Unavailable Jim Frausto MD Unavailable Анна Robert RN Unavailable [phone] Encounter Details Date Type Department Care Team (Late st Contact Info) Description 05/14/2015 Orders Only [facility] Provider, MD Max [address] [place] [id number] Social History Tobacco Use Types Packs/Day Years Used Date Smoking Tobacco: Never Assessed Sex and Gender Information Value Date Recorded Sex Assigned at Not on file Legal Sex Male 12:58 AM TYPING BOOKKEEPER Gender Identity Male 11/11/2018 10:31 AM CDT Sexual Orientation Straight 06/09/2019 5: 34 PM TYPING BOOKKEEPER documented as of this encounter Plan of Treatment Not on file documented as of this encounter Procedures Procedure Name Priority Date/Time Associated Diagnosis Comments CARDIOLOGY REPORT 05/14/2015 documented in this encounter Results * CARDIOLOGY REPORT (05/14/2015) Anatomical Region Laterality Modality Other Narrative 05/14/2015 Ordered by an unspecified provider. Historical Provider [...] COVID: Suspected 06/07/2023 06/07/2023 06/07/2023 12:46 PM TYPING BOOKKEEPER COVID19 06/07/2023 06/07/2023 06/22/2023 3:06 AM TYPING BOOKKEEPER COVID: Recovered Comment:Added based on recent COVID infection. 06/22/2023 06/22/2023 09/20/2023 3:05 AM C DT COVID: Suspected 07/24/2023 07/24/2023 07/24/2023 3:53 PM TYPING BOOKKEEPER Diarrhea 07/30/2023 07/30/2023 08/13/2023 3:05 AM TYPING BOOKKEEPER COVID: Suspected 08/30/2023 08/30/2023 08/30/2023 4:52 PM TYPING BOOKKEEPER COVID: Suspected 10/12/2023 10/12/2023 10/12/2023 7:57 PM CDT Rhino/Enterovirus 10/12/2023 10/12/2023 10/26/2023 3:05 AM CDT COVID: Suspected 07/10/2024 07/10/2024 07/10/2024 4:53 PM TYPING BOOKKEEPER COVID: Suspected Comment:07/16/2024 IP Review: no outstanding test, last RPP negative. Mary Tiwari RN 07/16/2024 07/16/2024 10:51 AM TYPING BOOKKEEPER COVID19 Comment:07/16/2024 IP Review: added by RN, RPP negative. Mary Tiwari RN 07/16/2024 07/16/2024 07/16/2024 10:51 AM TYPING BOOKKEEPER MRSA Comment:nasalMRSA Isolation Shelter 09/03/24 07/16/2024 08/15/2024 09/03/2024 6:[address] C. difficile suspected 07/19/2024 07/19/202407/19 2:34 PM TYPING BOOKKEEPER COVID: Suspected 07/23/2024 07/23/2024 07/23/2024 11:28 PM TYPING BOOKKEEPER C. difficile suspected 07/23/2024 07/24/202407/24 10:31 AM TYPING BOOKKEEPER Norovirus suspected 07/23/2024 07/24/2024 07/24/19 9:37 AM TYPING BOOKKEEPER VRE Comment:Contact Precautions (gown and gloves) - not eligible for IP review until 6 months after positive culture - Jerod QURESHI, CONY 10/01/24 07/24/2024 09/20/2024 COVID: Suspected 08/09/2024 08/09/2024 08/09/2024 9:40 AM TYPING BOOKKEEPER Influenza, adult Comment:08/26/2024 IP Review: pt afebrile but on antipyretics. Needs 24 hours off antipyretics and symptoms significantly improved/resolved in order for isolation to be discontinued. Mary Tiwari RN 08/15/2024 08/15/2024 08/29/2024 3:06 AM TYPING BOOKKEEPER Coronavirus, droplet 08/15/2024 08/15/202408/29/ 025 3:06 AM TYPING BOOKKEEPER C. difficile suspected 09/19/2024 09/19/202409/20 3:05 AM [...] documented as of this encounter Care Teams Education Courses Sales Representative Relationship Specialty Start Date End Date Kenton Ricks MD PCP - General 08/14/16 Kenton Ricks MD PCP - General 09/17/08 08/13/16 Pebbles Nelson MD Referring Physician Cardiology 02/07/19 Aylin Russ MD [address] [place] [address] Referring Physician Pulmonary Disease 02/07/19 Maricruz Ramirez CANVASS MANAGER [address] [place] [address] Nurse Practitioner Cardiovascular Disease 09/25/21 Joanne Lopez, RN Registered Nurse Pulmonary Disease 08/24/22 Leatha Cristina RMA Surgical Prehabilitation and Readiness (SPAR) Coordinator 09/01/22 01/02/23 Ben Chahal MD PhD [address] [facility] [address] 2 [place] [address] Medical Oncologist/Packaging Designer Medical Oncology 10/05/22 Chace Oliva MD [address] [facility] [address] [place] [address] Consulting Physician Infectious Diseases 12/22/2204/01 Giovanna Alexis MD [address] [place] [address] Radiation Oncologist Radiation Oncology 03/09/23 Taisha Suarez, support services manager Prehabilitation and Readiness (SPAR) Coordinator General Surgery 03/20/23 04/10/23 Sandra Ma MD [address] DIV IM MEDICAL ONCOLOGY, [facility] 7A, 7B, [address] [place] [address] Consulting Physician Medical Oncology 04/25/23 05/09/23 Abby Higgins MD PhD [address] DIV IM MEDICAL ONCOLOGY, [facility] 7A, [address]B, [address] [place] [address] Medical Oncologist/Packaging Designer Medical Oncology 05/10/23 Adrian Martinez MD [address] DIV SURG TRANSPLANT, [address] [place] [address] Surgical Oncologist Surgical Oncology 05/28/23 Vera Pérez PA [address] [place] [id number] [place] [address] Physician Anglesmith Colon and Rectal Surgery 09/13/23 Jim Frausto MD [address] [facility] [phone] [place] [address] Surgeon Colon and Rectal Surgery 11/21/23 Анна Robert, RN [address] [facility] [address] [place] [address] SHOP Outpatient Interactive Account Manager 09/29/24 10/01/24 documented as of this encounter
[2025-02-09 08:37] LABS: Hematocrit 37.6 % (42.0-52.0); Hemoglobin 11.5 g/dL (14.0-18.0)
[2025-02-09 08:41] LABS: Anion Gap 8 mmol/L (4-12); Blood Urea Nitrogen 18 mg/dL (9-20); Calcium 8.9 mg/dL (8.4-10.2); Carbon Dioxide 26 mmol/L (22-30); Chloride 108 mmol/L (98-107); Estimated Glomerular Filt Rate > 60; Glucose 113 mg/dL (65-110); Potassium 3.7 mmol/L (3.4-5.0); Sodium 142 mmol/L (137-145)
== END 2025-02-09 08:14 | disposition home or self-care (01) ==
LOC: ANHSURGERY 08:19
PROVIDERS: Anesthesiology; PCP Family Medicine; Visit Provider Urology
DX: D64.9 Anemia, unspecified (principal); E11.65 Type 2 diabetes mellitus with hyperglycemia
CPT/HCPCS: 36415; 80048; 85014; 85018

== ENCOUNTER 2025-02-17 00:29 | Day surgery (SDC) | payer MEDICARE, MEDICAID, SELFPAY ==
--- NOTE | 2025-02-06 10:16 | PC.NURSE ---
Report to the Outpatient Waiting Room, entrance under the green pavilion located off [facility], at time _10:30 AM on date __02/17/25 . Planned Procedure Time: _12:30 PM .? Time changes happen often and if your time is changed the preop area will call you the afternoon before. - You and your visitor will be asked to self-screen and do not enter if you have any COVID symptoms. Please call surgeon if you need to reschedule. - A mask is optional within the hospital at this time. Patients may have clear liquids (water, carbonated beverages, clear teas, apple juice) until 3 hours prior to surgery ( 9:30 AM)with a maximum of 20 ounces. - No food from midnight until time of surgery and no smoking, or chewing tobacco (or any form of nicotine). No chewing gum, candy or mints. Take only the following medications with a SIP of water on the morning of surgery: __BREO INHALER_, DULOXETINE,GABAPENTIN,TAKE 1/2 OF AM INSULIN, DO NOT STOP ANY OF YOUR OTHER PRESCRIPTION MEDICATIONS PRIOR TO SURGERY EXCEPT THE FOLLOWING Hold all vitamins and supplements for 3 days per anesthesiologist.LAST DOSE 02/13/25 Medications to discontinue per physician ASPIRIN _HOLD 7 DAYS PRE OP PER DR TREJO Date to take last dose___02/09/25 Please no make-up, nail malaysian, hairspray, perfume, deodorant, or body powder the day of surgery.? No jewelry (including any body piercings) or valuables the day of surgery, leave them at home.? Please take a shower or bath the night before, or the morning of, surgery with an antibacterial soap.? Wear comfortable, loose fitting clothing.? Children are encouraged to wear pajamas. - Jewelry must be removed prior to entering the operating room.? Rings and piercings that are not removed may be cut off. - The hospital will not accept responsibility for valuables.? - Please leave all valuables, including medications, at home the day of surgery. If you are going home after surgery, a licensed bus driver school must drive you home.? - NO public transportation without another adult if you receive anesthesia. - We recommend that an adult stay with you for 24 hours following discharge. - We also recommend that you do not drive, make important decision, drink alcoholic beverages, or take any drugs that were not prescribed by your health care provider for at least 24 hours after your discharge time. Follow any additional instructions given to you from your surgeon. Telephone instructions given to __PATIENT and asked if any additional questions and then verbalized understanding. Patient advised to call surgeon office or pre surgery nurse liaison [phone] if any additional questions.
[2025-02-06 11:07] VITALS: BMI 31.6
--- NOTE | 2025-02-14 07:21 | P.HP_ITS ---
H&P: HPI History of Present Illness Date/Time: 02/14/25 07:21 Chief Complaint: incontinence Narrative: desires INterStim to be removed Review of Systems Review of Systems: All systems reviewed & are unremarkable except as noted in HPI and below [facility] Past Medical History Medical History Pneumonia Paroxysmal A-fib Diastolic CHF Chest pain Chronic pain Depression Anal fissure Vision changes Chest wall pain Stomatitis Pacemaker at end of battery life Accidental esophageal perforation during procedure BMI 34.0-34.9,adult BMI 33.0-33.9,adult Superficial venous thrombosis of right upper extremity (~09/2022) Strain of rhomboid muscle History of cluster headache Polyuria Syncope History of colon polyps Acute diastolic CHF (congestive heart failure) Family hx of colon cancer Knee osteoarthritis Dermatitis Neurogenic bladder Morbid (severe) obesity due to excess calories Thyroid nodule status post biopsy with benign pathology Adrenal adenoma stable on imaging since 2018 C. 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 Lumbar degenerative disc disease Mixed hyperlipidemia Spinal stenosis, lumbar region with neurogenic claudication CHF (congestive heart failure) echocardiogram performed at [facility] 01/28/2020 demonstrated mild aortic regurgitation mild mitral regurgitation, diastolic dysfunction and severe left ventricular enlargement with normal ejection fraction 65% 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 Surgical History Surgical History History of Whipple procedure History of suprapubic catheter (11/2020) History of transurethral resection of prostate (08/2020) TUIP with cystoscopy and urethral dilatation performed by Dr. Schmidt Sacral nerve stimulator present (03/2020) S/P removal of thyroid nodule History of arthroscopy of left knee due to meniscal tear Biceps tendon rupture status post repair History of appendectomy History of prostatectomy with chronic urinary incontinence Status post left rotator cuff repair History of colonoscopy with polypectomy AICD (automatic cardioverter/defibrillator) present Status post trigger finger release bilateral Family History Family History Father Cerebrovascular accident Neurofibromatosis Coronary artery disease Diabetes mellitus CHF (congestive heart failure) Acute myocardial infarction Mother Breast cancer Cerebrovascular accident Grandparent Alcoholism Sibling Thyroid cancer sister Sibling Depression Breast cancer H/O mastectomy Sibling Depression Adrenal cancer sister Sibling Depression Social History Social History Social History: the patient briefly smoked while in college. He drinks 1-2 beers a week. He lives in [place] with his of 40 years. They have 3 children who are healthy and 3 grand children. 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 Code status: DNR/DNI (the patient reports that given his recent changes in his health status he wants to change his code status to DNR/DNI.) Power of commercial attorney for healthcare: Claudine () Years smoked: 3 Smoking status: Never smoker Tobacco type: cigarettes Second hand tobacco smoke exposure: No Alcohol intake: current Drinks per week: 2 Alcohol use details: on occasion Substance use: never Substance use type: does not use Do You Feel Safe in your Home?: Yes Lack of Transportation: No Lack of Food: Never True Current Housing: I Have Housing Concerned About Future Housing: No Difficulty Paying Gas/Electric Bills: YES Difficulty Paying for Meds: No Currently Unemployed: No Education: Bachelor's Degree Difficulty w/ Childcare or Family Care: No Living arrangements: with family Additional living arrangements comments: AND SON Occupation/Education: retired Additional occupation/education comments: [employer] Gender identity (if verbalized by the patient): Male Spiritual care concerns: No Meds Home Medications and Allergies Home Medications ?Medication ?Instructions ?Recorded ?Confirmed ?Type simethicone 180 mg capsule (Gas 180 mg PO BID PRN Abdominal 08/31/22 02/06/25 History Relief (simethicone)) Discomfort fluticasone furoate 100 1 inh inhalation DAILY 10/27/22 02/06/25 History mcg-vilanterol 25 mcg/dose inhalation powder cyclobenzaprine 5 mg tablet 5 mg PO TID PRN muscle spasm 11/28/22 02/06/25 History ondansetron HCl 8 mg tablet 8 mg PO .before meals 03/22/23 02/06/25 History rosuvastatin 5 mg tablet (Crestor) 5 mg PO DAILY 03/22/23 02/06/25 History sennosides 8.6 mg-docusate sodium 1 tab-cap PO QHS 03/22/23 02/06/25 History 50 mg tablet tamsulosin 0.4 mg capsule 0.4 mg PO DAILY PRN urinary 03/22/23 02/06/25 History retention acetaminophen 500 mg capsule 500 mg PO Q6H PRN pain 05/31/23 02/06/25 History aspirin 81 mg tablet,delayed 81 mg PO DAILY 05/31/23 02/06/25 History release (Adult Low Dose Aspirin) fluticasone propionate 50 1 spray intranasal DAILY 05/31/23 02/06/25 History mcg/actuation nasal spray,suspension (Allergy Relief (fluticasone)) diclofenac sodium 1 % topical gel 2 g topical QID #100 grams 08/06/23 02/06/25 Rx omeprazole 40 mg capsule,delayed 40 mg PO DAILY 08/06/23 02/06/25 History release oxybutynin chloride 15 mg 15 mg PO DAILY 08/06/23 02/06/25 History tablet,extended release 24 hr [id number] See Rx Instructions PO .up to 6 10/11/23 02/06/25 History 24,000-76,000-120,000 unit times a day capsule,delayed rel (Creon) albuterol sulfate 90 mcg/actuation 2 inh inhalation Q6H PRN shortness 10/12/23 02/06/25 Rx aerosol inhaler (ProAir HFA) of breath #6.7 grams ascorbic acid (vitamin C) 500 mg 500 mg PO DAILY 10/22/23 02/06/25 History capsule insulin aspart U-100 100 unit/mL 12 unit subcut .WITH MEALS 10/22/23 02/06/25 History (3 mL) subcutaneous pen (Novolog FlexPen U-100 Insulin aspart) insulin degludec 100 unit/mL (3 40 unit subcut QAM 10/22/23 02/06/25 History mL) subcutaneous pen (Tresiba FlexTouch U-100 insulin) oxycodone 5 mg tablet 5 mg PO Q8H PRN pain 10/22/23 02/06/25 History torsemide 20 mg tablet 60 mg PO DAILY 10/22/23 02/06/25 History dicyclomine 20 mg tablet 20 mg PO TID 11/19/23 02/06/25 History acetaminophen 500 mg capsule 1,000 mg (2 x 500 mg) PO Q6H PRN 03/11/24 02/06/25 Rx pain #20 caps pantoprazole 40 mg tablet,delayed 40 mg PO BID 09/03/24 02/06/25 History release trazodone 100 mg tablet 100 mg PO DAILY 09/03/24 02/06/25 History ubrogepant 100 mg tablet (Ubrelvy) 100 mg PO ONCE PRN migraine 09/03/24 02/06/25 History headache pramipexole 1 mg tablet See Rx Instructions .Route 11/01/24 02/06/25 Rx .COMPLEX #270 tabs B-complex with vitamin C 1 cap PO DAILY 01/26/25 02/06/25 History duloxetine 30 mg capsule,delayed 30 mg PO QAM 01/26/25 02/06/25 History release ferrous sulfate 325 mg (65 mg 325 mg PO DAILY 01/26/25 02/06/25 History iron) tablet gabapentin 300 mg capsule 600 mg PO TID 01/26/25 02/06/25 History lidocaine HCl 2 % mucosal jelly in topical 01/26/25 History applicator vibegron 75 mg tablet (Gemtesa) 75 mg PO HS 01/26/25 02/06/25 History multivitamin (Daily Multi-Vitamin 1 tablet PO DAILY 02/06/25 02/06/25 History tablet) sucralfate 1 gram tablet (Carafate) 1 g PO Q6H #360 tabs 02/07/25 Rx Allergies Allergy/AdvReac Type Severity Reaction Status Date / Time meropenem Allergy Severe SHORTNESS Verified 02/06/25 10:20 OF BREATH vancomycin Allergy Severe Other Verified 02/06/25 10:20 iron dextran complex Allergy Other Verified 02/06/25 10:20 Sulfa (Sulfonamide Allergy Rash Verified 02/06/25 10:20 Antibiotics) menthol AdvReac Severe BROWER SKIN Verified 02/06/25 10:20 prochlorperazine (From AdvReac Severe Drowsy Verified 02/06/25 10:20 Compazine) ceftriaxone (From Rocephin) AdvReac Mild Nausea and Verified 02/06/25 10:20 Vomiting Exam Narrative: NAD A+oX3 Assessment and Plan Assessment and plan (1) Urge incontinence: Code(s): N39.41 - Urge incontinence Status: Acute Assessment and Plan: remove InterStim device
--- NOTE | ~2025-02-17 | XR_ITS ---
INTRAOPERATIVE FLUOROSCOPY: CLINICAL HISTORY: 69 years old Male; REMOVAL OF NEUROSTIMULATOR IMPLANT PROCEDURE COMMENTS: Limited intraoperative fluoroscopy of the pelvis was performed. CUMULATIVE DOSE: 6.5 mGy FLUOROSCOPY TIME: 10.1 seconds FINDINGS/IMPRESSION: Please refer to operative note for further details. Reviewed, dictated and finalized at location A.
--- OUTSIDE RECORDS SUMMARY | 2025-02-17 00:33 | XMS_ITS | Encounter Summary ---
Author Organization [facility] Address [address] [place] [address] Phone Care Team Providers Care Car Rental Deliverer Name Role Phone Kenton Ricks MD Primary Care Provider + [phone] Pebbles Nelson MD Unavailable [phone] Aylin Russ MD Unavailable [phone] Maricruz Ramirez NP Unavailable [phone] Joanne Lopez RN Unavailable Padmini Leatha Carter Unavailable Unavailable Ben Chahal MD PhD Unavailable [phone] Chace Oliva MD Unavailable [phone] Giovanna Alexis MD Unavailable Taisha Suarez RN Unavailable Unavaila Sandra Aguirre MD Unavailable [phone] Abby Higgins MD PhD Unavailable + Adrian Martinez MD Unavailable [phone] Vera Pérez Unavailable [phone] Jim Frausto MD Unavailable [phone] Анна Robert RN Unavailable [phone] Encounter Details Date Type Department Care Team [...] on file Legal Sex Male 12:58 AM LITERATURE TEACHER Gender Identity Male 11/11/2018 10:31 AM CDT Sexual Orientation Straight 06/09/2019 5: 34 PM LITERATURE TEACHER documented as of this encounter Plan of [...] COVID: Suspected 06/07/2023 06/07/2023 06/07/2023 12:46 PM LITERATURE TEACHER COVID19 06/07/2023 06/07/2023 06/22/2023 3:06 AM LITERATURE TEACHER COVID: Recovered Comment:Added based on recent COVID infection. 06/22/2023 06/22/2023 09/20/2023 3:05 AM C DT COVID: Suspected 07/24/2023 07/24/2023 07/24/2023 3:53 PM LITERATURE TEACHER Diarrhea 07/30/2023 07/30/2023 08/13/2023 3:05 AM LITERATURE TEACHER COVID: Suspected 08/30/2023 08/30/2023 08/30/2023 4:52 PM LITERATURE TEACHER COVID: Suspected 10/12/2023 10/12/2023 10/12/2023 7:57 PM CDT Rhino/Enterovirus 10/12/2023 10/12/2023 10/26/2023 3:05 AM CDT COVID: Suspected 07/10/2024 07/10/2024 07/10/2024 4:53 PM LITERATURE TEACHER COVID: Suspected Comment:07/16/2024 IP Review: no outstanding test, last RPP negative. Mary Tiwari RN 07/16/2024 07/16/2024 10:51 AM LITERATURE TEACHER COVID19 Comment:07/16/2024 IP Review: added by RN, RPP negative. Mary Tiwari RN 07/16/2024 07/16/2024 07/16/2024 10:51 AM LITERATURE TEACHER MRSA Comment:nasalMRSA Isolation Custodial 09/03/24 07/16/2024 08/15/2024 09/03/2024 6:[address] C. difficile suspected 07/19/2024 07/19/202407/19 2:34 PM LITERATURE TEACHER COVID: Suspected 07/23/2024 07/23/2024 07/23/2024 11:28 PM LITERATURE TEACHER C. difficile suspected 07/23/2024 07/24/202407/24 10:31 AM LITERATURE TEACHER Norovirus suspected 07/23/2024 07/24/2024 07/24/19 9:37 AM LITERATURE TEACHER VRE Comment:Contact Precautions (gown and gloves) - not eligible for IP review until 6 months after positive culture - Jerod QURESHI, CONY 10/01/24 07/24/2024 09/20/2024 COVID: Suspected 08/09/2024 08/09/2024 08/09/2024 9:40 AM LITERATURE TEACHER Influenza, adult Comment:08/26/2024 IP Review: pt afebrile but on antipyretics. Needs 24 hours off antipyretics and symptoms significantly improved/resolved in order for isolation to be discontinued. Mary Tiwari RN 08/15/2024 08/15/2024 08/29/2024 3:06 AM LITERATURE TEACHER Coronavirus, droplet 08/15/2024 08/15/202408/29/ 025 3:06 AM LITERATURE TEACHER C. difficile suspected 09/19/2024 09/19/202409/20 3:05 AM [...] documented as of this encounter Care Teams Car Rental Deliverer Relationship Specialty Start Date End Date Kenton Ricks MD PCP - General 08/14/16 Pebbles Nelson MD Referring Physician Cardiology 02/07/19 Aylin Russ MD [address] [place], [place] [address] Referring Physician Pulmonary Disease 02/07/19 Maricruz Ramirez NP [address] [place] [address] Nurse Practitioner Cardiovascular Disease 09/25/21 Joanne Lopez, RN Registered Nurse Pulmonary Disease 08/24/22 Leatha Cristina RMA Surgical Prehabilitation and Readiness (SPAR) Coordinator 09/01/22 01/02/23 Ben Chahal MD PhD 10 [facility] [address] 2 [place] [address] Medical Oncologist/Information And Data Architect Analyst Medical Oncology 10/05/22 Chace Oliva MD [address] [facility] [address] [place] [address] Consulting Physician Infectious Diseases 12/22/2204/01 Giovanna Alexis MD [address] [place] [address] Radiation Oncologist Radiation Oncology 03/09/23 Taisha Suarez, wire splicer Prehabilitation and Readiness (SPAR) Coordinator General Surgery 03/20/23 04/10/23 Sandra Ma MD [address] DIV IM MEDICAL ONCOLOGY, [facility] [address], [address], [address] [place] [address] Consulting Physician Medical Oncology 04/25/23 05/09/23 Abby Higgins MD PhD [address] DIV IM MEDICAL ONCOLOGY, [facility] [address], [address], [address] [place] [address] Medical Oncologist/Information And Data Architect Analyst Medical Oncology 05/10/23 Adrian Martinez MD [address] DIV SURG TRANSPLANT, [address] [place] [address] Surgical Oncologist Surgical Oncology 05/28/23 Vera Pérez PA [address] [place] [id number] [place] [address] Physician Upholstery Estimator Colon and Rectal Surgery 09/13/23 Jim Frausto MD [address] [facility] [phone] [place], [place] [id number] Surgeon Colon and Rectal Surgery 11/21/23 Анна Robert, RN [address] [facility] [address] [place], [place] [id number] SHOP Outpatient Mail Clerk 09/29/24 10/01/24 documented as of this encounter
--- OUTSIDE RECORDS SUMMARY | 2025-02-17 00:33 | XMS_ITS | Encounter Summary ---
Author Organization [facility] Address [address] [place] [address] Phone Care Team Providers Care Gas Plant Dispatcher Name Role Phone Kenton Ricks MD Primary Care Provider + [phone] Kenton Ricks MD Primary Care Provider + [phone] Pebbles Nelson MD Unavailable [phone] Aylin Russ MD Unavailable +[phone] Maricruz Ramirez NP Unavailable [phone] Joanne Lopez RN Unavailable Padmini Leatha Carter Unavailable Unavailable Ben Chahal MD PhD Unavailable +[phone] Chace Oliva MD Unavailable [phone] Giovanna Alexis MD Unavailable Taisha Suarez RN Unavailable Unavaila Sandra Aguirre MD Unavailable +[phone] Abby Higgins MD PhD Unavailable + Adrian Martinez MD Unavailable [phone] Vera Pérez Unavailable Jim Frausto MD Unavailable Анна Robert RN Unavailable [phone] Encounter Details Date Type Department Care Team (Late st Contact Info) Description 06/02/2016 Orders Only [facility] IM CAR CLINCONV Provider, MD Max [address] [place] [address] Social History Tobacco Use Types Packs/Day Years Used Date Smoking Tobacco: Never Assessed Sex and Gender Information Value Date Recorded Sex Assigned at Not on file Legal Sex Male 12:58 AM CHIP FRIER Gender Identity Male 11/11/2018 10:31 AM CDT Sexual Orientation Straight 06/09/2019 5: 34 PM CHIP FRIER documented as of this encounter Plan of [...] COVID: Suspected 06/07/2023 06/07/2023 06/07/2023 12:46 PM CHIP FRIER COVID19 06/07/2023 06/07/2023 06/22/2023 3:06 AM CHIP FRIER COVID: Recovered Comment:Added based on recent COVID infection. 06/22/2023 06/22/2023 09/20/2023 3:05 AM C DT COVID: Suspected 07/24/2023 07/24/2023 07/24/2023 3:53 PM CHIP FRIER Diarrhea 07/30/2023 07/30/2023 08/13/2023 3:05 AM CHIP FRIER COVID: Suspected 08/30/2023 08/30/2023 08/30/2023 4:52 PM CHIP FRIER COVID: Suspected 10/12/2023 10/12/2023 10/12/2023 7:57 PM CDT Rhino/Enterovirus 10/12/2023 10/12/2023 10/26/2023 3:05 AM CDT COVID: Suspected 07/10/2024 07/10/2024 07/10/2024 4:53 PM CHIP FRIER COVID: Suspected Comment:07/16/2024 IP Review: no outstanding test, last RPP negative. Mary Tiwari RN 07/16/2024 07/16/2024 10:51 AM CHIP FRIER COVID19 Comment:07/16/2024 IP Review: added by RN, RPP negative. Mary Tiwari RN 07/16/2024 07/16/2024 07/16/2024 10:51 AM CHIP FRIER MRSA Comment:nasalMRSA Isolation Long Term 09/03/24 07/16/2024 08/15/2024 09/03/2024 6:[address] C. difficile suspected 07/19/2024 07/19/202407/19 2:34 PM CHIP FRIER COVID: Suspected 07/23/2024 07/23/2024 07/23/2024 11:28 PM CHIP FRIER C. difficile suspected 07/23/2024 07/24/202407/24 10:31 AM CHIP FRIER Norovirus suspected 07/23/2024 07/24/2024 07/24/19 9:37 AM CHIP FRIER VRE Comment:Contact Precautions (gown and gloves) - not eligible for IP review until 6 months after positive culture - Jerod QURESHI, CONY 10/01/24 07/24/2024 09/20/2024 COVID: Suspected 08/09/2024 08/09/2024 08/09/2024 9:40 AM CHIP FRIER Influenza, adult Comment:08/26/2024 IP Review: pt afebrile but on antipyretics. Needs 24 hours off antipyretics and symptoms significantly improved/resolved in order for isolation to be discontinued. Mary Tiwari RN 08/15/2024 08/15/2024 08/29/2024 3:06 AM CHIP FRIER Coronavirus, droplet 08/15/2024 08/15/202408/29/ 025 3:06 AM CHIP FRIER C. difficile suspected 09/19/2024 09/19/202409/20 3:05 AM [...] documented as of this encounter Care Teams Gas Plant Dispatcher Relationship Specialty Start Date End Date Kenton Ricks MD PCP - General 08/14/16 Kenton Ricks MD PCP - General 09/17/08 08/13/16 Pebbles Nelson MD Referring Physician Cardiology 02/07/19 Aylin Russ MD [address] [place] [address] Referring Physician Pulmonary Disease 02/07/19 Maricruz Ramirez TABLE SETTER [address] [place] [address] Nurse Practitioner Cardiovascular Disease 09/25/21 Joanne Lopez, RN Registered Nurse Pulmonary Disease 08/24/22 Leatha Cristina RMA Surgical Prehabilitation and Readiness (SPAR) Coordinator 09/01/22 01/02/23 Ben Chahal MD PhD 10 [facility] # 2 DIV [place] [address] Medical Oncologist/Scrap Wheeler Medical Oncology 10/05/22 Chace Oliva MD [address] [facility] [address] [place] [address] Consulting Physician Infectious Diseases 12/22/2204/01 Giovanna Alexis MD [address] [place] [address] Radiation Oncologist Radiation Oncology 03/09/23 Taisha Suarez, foreign clerk Prehabilitation and Readiness (SPAR) Coordinator General Surgery 03/20/23 04/10/23 Sandra Ma MD [address] DIV IM MEDICAL ONCOLOGY, [facility] 7A, 7B, [address]C [place] [address] Consulting Physician Medical Oncology 04/25/23 05/09/23 Abby Higgins MD PhD [address] DIV IM MEDICAL ONCOLOGY, [facility] 7A, 7B, [address] [place] [address] Medical Oncologist/Scrap Wheeler Medical Oncology 05/10/23 Adrian Martinez MD [address] DIV SURG TRANSPLANT, [place] [address] [place] [address] Surgical Oncologist Surgical Oncology 05/28/23 Vera Pérez PA [address] [place] [id number] [place] [address] Physician Counselor At Law Colon and Rectal Surgery 09/13/23 Jim Frausto MD [address] [facility] [phone] [place] [address] Surgeon Colon and Rectal Surgery 11/21/23 Анна Robert, RN [address] [facility] [address] [place] [address] SHOP Outpatient Station Inspector 09/29/24 10/01/24 documented as of this encounter
--- OUTSIDE RECORDS SUMMARY | 2025-02-17 00:33 | XMS_ITS | Patient Health Record ---
Author Organization 1 OF Kristopher jaimes D[facility] Address [address] [place] [address] Reason For Referral No Information Plan Of Treatment No Information
--- OUTSIDE RECORDS SUMMARY | 2025-02-17 00:33 | XMS_ITS | Encounter Summary ---
Author Organization [facility] Address [address] [place] [address] Phone Care Team Providers Care Sports Betting Manager Name Role Phone Kenton Ricks MD Primary Care Provider + [phone] Pebbles Nelson MD Unavailable [phone] Aylin Russ MD Unavailable [phone] Maricruz Ramirez NP Unavailable [phone] Joanne Lopez RN Unavailable Padmini Leatha Carter Unavailable Unavailable Ben Chahal MD PhD Unavailable [phone] Chace Oliva MD Unavailable [phone] Giovanna Alexis MD Unavailable Taisha Suarez RN Unavailable Unavaila Sandra Aguirre MD Unavailable [phone] Abby Higgins MD PhD Unavailable + Adrian Martinez MD Unavailable Vera Pérez Unavailable [phone] Jim Frausto MD Unavailable [phone] Анна Robert RN Unavailable Encounter Details Date Type Department Care Team (Latest Contact Info) Description 12/14/2016 Orders Only [facility] CONVERSION Scanning, Provider Social History Tobacco Use Types Packs/Day Years Used Date Smoking Tobacco: Never Assessed Sex and Gender Information Value Date Recorded Sex Assigned at Not on file Legal Sex Male 12:58 AM AIRCRAFT PILOT Gender Identity Male 11/11/2018 10:31 AM CDT Sexual Orientation Straight 06/09/2019 5: 34 PM AIRCRAFT PILOT documented as of this encounter Plan of [...] COVID: Suspected 06/07/2023 06/07/2023 06/07/2023 12:46 PM AIRCRAFT PILOT COVID19 06/07/2023 06/07/2023 06/22/2023 3:06 AM AIRCRAFT PILOT COVID: Recovered Comment:Added based on recent COVID infection. 06/22/2023 06/22/2023 09/20/2023 3:05 AM C DT COVID: Suspected 07/24/2023 07/24/2023 07/24/2023 3:53 PM AIRCRAFT PILOT Diarrhea 07/30/2023 07/30/2023 08/13/2023 3:05 AM AIRCRAFT PILOT COVID: Suspected 08/30/2023 08/30/2023 08/30/2023 4:52 PM AIRCRAFT PILOT COVID: Suspected 10/12/2023 10/12/2023 10/12/2023 7:57 PM CDT Rhino/Enterovirus 10/12/2023 10/12/2023 10/26/2023 3:05 AM CDT COVID: Suspected 07/10/2024 07/10/2024 07/10/2024 4:53 PM AIRCRAFT PILOT COVID: Suspected Comment:07/16/2024 IP Review: no outstanding test, last RPP negative. Mary Tiwari RN 07/16/2024 07/16/2024 10:51 AM AIRCRAFT PILOT COVID19 Comment:07/16/2024 IP Review: added by RN, RPP negative. Mary Tiwari RN 07/16/2024 07/16/2024 07/16/2024 10:51 AM AIRCRAFT PILOT MRSA Comment:nasalMRSA Isolation Fdc 09/03/24 07/16/2024 08/15/2024 09/03/2024 6:[address] C. difficile suspected 07/19/2024 07/19/202407/19 2:34 PM AIRCRAFT PILOT COVID: Suspected 07/23/2024 07/23/2024 07/23/2024 11:28 PM AIRCRAFT PILOT C. difficile suspected 07/23/2024 07/24/202407/24 10:31 AM AIRCRAFT PILOT Norovirus suspected 07/23/2024 07/24/2024 07/24/19 9:37 AM AIRCRAFT PILOT VRE Comment:Contact Precautions (gown and gloves) - not eligible for IP review until 6 months after positive culture - Jerod QURESHI, CONY 10/01/24 07/24/2024 09/20/2024 COVID: Suspected 08/09/2024 08/09/2024 08/09/2024 9:40 AM AIRCRAFT PILOT Influenza, adult Comment:08/26/2024 IP Review: pt afebrile but on antipyretics. Needs 24 hours off antipyretics and symptoms significantly improved/resolved in order for isolation to be discontinued. Mary Tiwari RN 08/15/2024 08/15/2024 08/29/2024 3:06 AM AIRCRAFT PILOT Coronavirus, droplet 08/15/2024 08/15/2024 025 3:06 AM AIRCRAFT PILOT C. difficile suspected 09/19/2024 09/19/202409/20 3:05 AM [...] documented as of this encounter Care Teams Sports Betting Manager Relationship Specialty Start Date End Date Kenton Ricks MD PCP - General 08/14/16 Pebbles Nelson MD Referring Physician Cardiology 02/07/19 Aylin Russ MD [address] [address] Referring Physician Pulmonary Disease 02/07/19 Maricruz Ramirez NP 4523 [facility] 8052 [place], [place] [id number] Nurse Practitioner Cardiovascular Disease 09/25/21 Joanne Lopez, RN Registered Nurse Pulmonary Disease 08/24/22 Leatha Cristina RMA Surgical Prehabilitation and Readiness (SPAR) Coordinator 09/01/22 01/02/23 Ben Chahal MD PhD 10 [facility] # 2 DIV [place] [address] Medical Oncologist/Transit Planner Medical Oncology 10/05/22 Chace Oliva MD [address] [facility] [address] [place] [address] Consulting Physician Infectious Diseases 12/22/2204/01 Giovanna Alexis MD [address] [place] [address] Radiation Oncologist Radiation Oncology 03/09/23 Taisha Suarez RN Surgical Prehabilitation and Readiness (SPAR) Coordinator General Surgery 03/20/23 04/10/23 Sanrda Ma MD [address] DIV IM MEDICAL ONCOLOGY, [facility] 7A, 7B, [address]C [place] [address] Consulting Physician Medical Oncology 04/25/23 05/09/23 Abby Higgins MD PhD [address] DIV IM MEDICAL ONCOLOGY, [facility] 7A, 7B, [address]C [place] [address] Medical Oncologist/Transit Planner Medical Oncology 05/10/23 Adrian Martinez MD [address] DIV SURG TRANSPLANT, [place] [place] [address] Surgical Oncologist Surgical Oncology 05/28/23 Vera Pérez PA [address] [place] [phone] [place] [address] Physician Security Rep Colon and Rectal Surgery 09/13/23 Jim Frausto MD [address] [facility] [phone] [place] [address] Surgeon Colon and Rectal Surgery 11/21/23 Анна Robert, RN 4590 [facility] [address]300 [place], [place] [address] SHOP Outpatient Gum Machine Operator 09/29/24 10/01/24 documented as of this encounter
--- OUTSIDE RECORDS SUMMARY | 2025-02-17 00:33 | XMS_ITS | Encounter Summary ---
Author Organization [facility] Address [address] [place] [address] Care Team Providers Care Art Therapy Specialist Name Role Phone Kenton Ricks MD Primary Care Provider + [phone] Pebbles Nelson MD Unavailable [phone] Aylin Russ MD Unavailable [phone] Maricruz Ramirez NP Unavailable [phone] Joanne Lopez RN Unavailable Padmini Leatha Carter Unavailable Unavailable Ben Chahal MD PhD Unavailable [phone] Chace Oliva MD Unavailable [phone] Giovanna Alexis MD Unavailable Taisha Suarez RN Unavailable Unavaila Sandra Aguirre MD Unavailable [phone] Abby Higgins MD PhD Unavailable + Adrian Martinez MD Unavailable [phone] Vera Pérez Unavailable Jim Frausto MD Unavailable Анна Robert RN Unavailable Encounter Details Date Type Department Care Team (Late st Contact Info) Description 06/15/2020 Telephone [facility] Radiology [address] [place] [address] Adalberto Zavala MD [address] [place] [address] Social History Tobacco Use Types Packs/Day Years Used Date Smoking Tobacco: Former Smokeless Tobacco: Never Alcohol Use Standard Drinks/Week Comments Yes 0 (1 standard drink = 0.6 oz pur e alcohol) Occassional Sex and Gender Information Value Date Recorded Sex Assigned at Not on file Legal Sex Male 12:58 AM REPRODUCTIVE HEALTHCARE ASSISTANT Gender Identity Male 11/11/2018 10:31 AM CDT Sexual Orientation Straight 06/09/2019 5: 34 PM REPRODUCTIVE HEALTHCARE ASSISTANT documented as of this encounter Plan of [...] COVID: Suspected 06/07/2023 06/07/2023 06/07/2023 12:46 PM REPRODUCTIVE HEALTHCARE ASSISTANT COVID19 06/07/2023 06/07/2023 06/22/2023 3:06 AM REPRODUCTIVE HEALTHCARE ASSISTANT COVID: Recovered Comment:Added based on recent COVID infection. 06/22/2023 06/22/2023 09/20/2023 3:05 AM C DT COVID: Suspected 07/24/2023 07/24/2023 07/24/2023 3:53 PM REPRODUCTIVE HEALTHCARE ASSISTANT Diarrhea 07/30/2023 07/30/2023 08/13/2023 3:05 AM REPRODUCTIVE HEALTHCARE ASSISTANT COVID: Suspected 08/30/2023 08/30/2023 08/30/2023 4:52 PM REPRODUCTIVE HEALTHCARE ASSISTANT COVID: Suspected 10/12/2023 10/12/2023 10/12/2023 7:57 PM CDT Rhino/Enterovirus 10/12/2023 10/12/2023 10/26/2023 3:05 AM CDT COVID: Suspected 07/10/2024 07/10/2024 07/10/2024 4:53 PM REPRODUCTIVE HEALTHCARE ASSISTANT COVID: Suspected Comment:07/16/2024 IP Review: no outstanding test, last RPP negative. Mary Tiwari, RN 07/16/2024 07/16/2024 10:51 AM REPRODUCTIVE HEALTHCARE ASSISTANT COVID19 Comment:07/16/2024 IP Review: added by CLAUDIO DONNELLY negative. Mary Tiwari RN 07/16/2024 07/16/2024 07/16/2024 10:51 AM REPRODUCTIVE HEALTHCARE ASSISTANT MRSA Comment:nasalMRSA Isolation Care Home 09/03/24 07/16/2024 08/15/2024 09/03/2024 6:[address] C. difficile suspected 07/19/2024 07/19/202407/19 2:34 PM REPRODUCTIVE HEALTHCARE ASSISTANT COVID: Suspected 07/23/2024 07/23/2024 07/23/2024 11:28 PM REPRODUCTIVE HEALTHCARE ASSISTANT C. difficile suspected 07/23/2024 07/24/202407/24 10:31 AM REPRODUCTIVE HEALTHCARE ASSISTANT Norovirus suspected 07/23/2024 07/24/2024 07/24/19 9:37 AM REPRODUCTIVE HEALTHCARE ASSISTANT VRE Comment:Contact Precautions (gown and gloves) - not eligible for IP review until 6 months after positive culture - Jerod QURESHI, CONY 10/01/24 07/24/2024 09/20/2024 COVID: Suspected 08/09/2024 08/09/2024 08/09/2024 9:40 AM REPRODUCTIVE HEALTHCARE ASSISTANT Influenza, adult Comment:08/26/2024 IP Review: pt afebrile but on antipyretics. Needs 24 hours off antipyretics and symptoms significantly improved/resolved in order for isolation to be discontinued. Mary Tiwari RN 08/15/2024 08/15/2024 08/29/2024 3:06 AM REPRODUCTIVE HEALTHCARE ASSISTANT Coronavirus, droplet 08/15/2024 08/15/202408/29/ 025 3:06 AM REPRODUCTIVE HEALTHCARE ASSISTANT C. difficile suspected 09/19/2024 09/19/202409/20 3:05 AM [...] documented as of this encounter Care Teams Art Therapy Specialist Relationship Specialty Start Date End Date Kenton Ricks MD PCP - General 08/14/16 Pebbles Nelson MD Referring Physician Cardiology 02/07/19 Aylin Russ MD 4523 [facility] [address] [place] [address] Referring Physician Pulmonary Disease 02/07/19 Maricruz Ramirez NP 45[address] [facility] [address] [place] [address] Nurse Practitioner Cardiovascular Disease 09/25/21 Joanne Lopez, CONY Registered Nurse Pulmonary Disease 08/24/22 Leatha Cristina RMA Surgical Prehabilitation and Readiness (SPAR) Coordinator 09/01/22 01/02/23 Ben Chahal MD PhD [address] [facility] [address] 2 [place] [address] Medical Oncologist/Patent Litigation Associate Medical Oncology 10/05/22 Chace Oliva MD [address] [facility] [address] [place] [address] Consulting Physician Infectious Diseases 12/22/2204/01 Giovanna Alexis MD [address] [place] [address] Radiation Oncologist Radiation Oncology 03/09/23 Taisha Suarez RN Surgical Prehabilitation and Readiness (SPAR) Coordinator General Surgery 03/20/23 04/10/23 Sandra Ma MD [address] DIV IM MEDICAL ONCOLOGY, [facility] 7A, 7B, [address]C [place] [address] Consulting Physician Medical Oncology 04/25/23 05/09/23 Abby Higgins MD PhD [address] DIV IM MEDICAL ONCOLOGY, [facility] 7A, 7B, [address]C [place] [address] Medical Oncologist/Patent Litigation Associate Medical Oncology 05/10/23 Adrian Martinez MD [address] DIV SURG TRANSPLANT, [facility] [address] [place] [address] Surgical Oncologist Surgical Oncology 05/28/23 Vera Pérez PA [address] [place] [phone] [place] [address] Physician Eligibility Counselor Colon and Rectal Surgery 09/13/23 Jim Frausto MD [address] [facility] [phone] [place] [address] Surgeon Colon and Rectal Surgery 11/21/23 Анна Robert, RN 4590 [facility] [address] [place] [address] SHOP Outpatient Finance Consultant 09/29/24 10/01/24 documented as of this encounter
--- OUTSIDE RECORDS SUMMARY | 2025-02-17 00:33 | XMS_ITS | Encounter Summary ---
Author Organization [facility] Address [address] [place] [address] Phone Care Team Providers Care Senior Process Analyst Name Role Phone Kenton Ricks MD Primary Care Provider + [phone] Pebbles Nelson MD Unavailable [phone] Aylin Russ MD Unavailable [phone] Maricruz Ramirez NP Unavailable [phone] Joanne Lopez RN Unavailable Padmini Leatha Carter Unavailable Unavailable Ben Chahal MD PhD Unavailable +[phone] Chace Oliva MD Unavailable +[phone] Giovanna Alexis MD Unavailable Taisha Suarez RN Unavailable Unavaila Sandra Aguirre MD Unavailable +[phone] Abby Higgins MD PhD Unavailable + Adrian Martinez MD Unavailable Vera Pérez Unavailable [phone] Jim Frausto MD Unavailable [phone] Анна Robert RN Unavailable [phone] Encounter Details Date Type Department Care Team [...] on file Legal Sex Male 12:58 AM MANAGER ENTERPRISE Gender Identity Male 11/11/2018 10:31 AM CDT Sexual Orientation Straight 06/09/2019 5: 34 PM MANAGER ENTERPRISE documented as of this encounter Plan of [...] COVID: Suspected 06/07/2023 06/07/2023 06/07/2023 12:46 PM MANAGER ENTERPRISE COVID19 06/07/2023 06/07/2023 06/22/2023 3:06 AM MANAGER ENTERPRISE COVID: Recovered Comment:Added based on recent COVID infection. 06/22/2023 06/22/2023 09/20/2023 3:05 AM C DT COVID: Suspected 07/24/2023 07/24/2023 07/24/2023 3:53 PM MANAGER ENTERPRISE Diarrhea 07/30/2023 07/30/2023 08/13/2023 3:05 AM MANAGER ENTERPRISE COVID: Suspected 08/30/2023 08/30/2023 08/30/2023 4:52 PM MANAGER ENTERPRISE COVID: Suspected 10/12/2023 10/12/2023 10/12/2023 7:57 PM CDT Rhino/Enterovirus 10/12/2023 10/12/2023 10/26/2023 3:05 AM CDT COVID: Suspected 07/10/2024 07/10/2024 07/10/2024 4:53 PM MANAGER ENTERPRISE COVID: Suspected Comment:07/16/2024 IP Review: no outstanding test, last RPP negative. Mary Tiwari RN 07/16/2024 07/16/2024 10:51 AM MANAGER ENTERPRISE COVID19 Comment:07/16/2024 IP Review: added by RN, RPP negative. Mary Tiwari RN 07/16/2024 07/16/2024 07/16/2024 10:51 AM MANAGER ENTERPRISE MRSA Comment:nasalMRSA Isolation Snf 09/03/24 07/16/2024 08/15/2024 09/03/2024 6:[address] C. difficile suspected 07/19/2024 07/19/202407/19 2:34 PM MANAGER ENTERPRISE COVID: Suspected 07/23/2024 07/23/2024 07/23/2024 11:28 PM MANAGER ENTERPRISE C. difficile suspected 07/23/2024 07/24/202407/24 10:31 AM MANAGER ENTERPRISE Norovirus suspected 07/23/2024 07/24/2024 07/24/19 9:37 AM MANAGER ENTERPRISE VRE Comment:Contact Precautions (gown and gloves) - not eligible for IP review until 6 months after positive culture - Jerod QURESHI, CONY 10/01/24 07/24/2024 09/20/2024 COVID: Suspected 08/09/2024 08/09/2024 08/09/2024 9:40 AM MANAGER ENTERPRISE Influenza, adult Comment:08/26/2024 IP Review: pt afebrile but on antipyretics. Needs 24 hours off antipyretics and symptoms significantly improved/resolved in order for isolation to be discontinued. Mary Tiwari RN 08/15/2024 08/15/2024 08/29/2024 3:06 AM MANAGER ENTERPRISE Coronavirus, droplet 08/15/2024 08/15/202408/29/ 025 3:06 AM MANAGER ENTERPRISE C. difficile suspected 09/19/2024 09/19/2024 03/22 /2025 [...] as of this encounter Care Teams Senior Process Analyst Relationship Specialty Start Date End Date Kenton Ricks MD PCP - General 08/14/16 Pebbles Nelson MD Referring Physician Cardiology 02/07/19 Aylin Russ MD 4523 [facility] [address] [place] [address] Referring Physician Pulmonary Disease 02/07/19 Maricruz Ramirez NP [address] [facility] [address] [place] [address] Nurse Practitioner Cardiovascular Disease 09/25/21 Joanne Lopez, CONY Registered Nurse Pulmonary Disease 08/24/22 Leatha Cristina RMA Surgical Prehabilitation and Readiness (SPAR) Coordinator 09/01/22 01/02/23 Ben Chahal MD PhD [address] [place] [address] # 2 [place] [address] Medical Oncologist/Geothermal Powerplant Supervisor Medical Oncology 10/05/22 Chace Oliva MD [address] [facility] [address] [place] [address] Consulting Physician Infectious Diseases 12/22/2204/01 Giovanna Alexis MD [address] [place] [address] Radiation Oncologist Radiation Oncology 03/09/23 Taisha Suarez, support services tech Prehabilitation and Readiness (SPAR) Coordinator General Surgery 03/20/23 04/10/23 Sandra Ma MD [address] DIV IM MEDICAL ONCOLOGY, [facility] 7A, 7B, [address]C [place] [address] Consulting Physician Medical Oncology 04/25/23 05/09/23 Abby Higgins MD PhD [address] DIV IM MEDICAL ONCOLOGY, [facility] 7A, 7B, [address]C [place] [address] Medical Oncologist/Geothermal Powerplant Supervisor Medical Oncology 05/10/23 Adrian Martinez MD [address] DIV SURG TRANSPLANT, [facility] [address] [place] [address] Surgical Oncologist Surgical Oncology 05/28/23 Vera Pérez PA [address] [place] [phone] [place] [address] Physician Policy Change Clerks Supervisor Colon and Rectal Surgery 09/13/23 Jim Frausto MD [address] [facility] [phone] [place], [place] [address] Surgeon Colon and Rectal Surgery 11/21/23 Анна Robert, RN 4590 [facility] [address] [place] [address] SHOP Outpatient Elevator Service Mechanic 09/29/24 10/01/24 documented as of this encounter
--- OUTSIDE RECORDS SUMMARY | 2025-02-17 00:33 | XMS_ITS | Clinical Summary ---
Author Organization [facility] Address [address] [place], [place] [id number] Care Team Providers Care Supervising Appraiser Name Role Phone Ivonne Alcantar PA-C Primary Care Provider [phone] Social History Tobacco Use Types Packs/Day Years [...] this topic Meningococcal Vaccine Aged Out No silas cecilio eligible based on patient's age to complete this topic RSV Immunizations Under 20 Months Aged Out No longer eligible based on patient's age to complete this topic Insurance MEDICAID Care Teams Supervising Appraiser Relationship Specialty Start Date End Date Ivonne Alcantar PA-C [address] [facility] [place] [address] PCP - General LOCAL TRUCK DRIVER 12/06/21
--- OUTSIDE RECORDS SUMMARY | 2025-02-17 00:33 | XMS_ITS | Encounter Summary ---
Author Organization Formerly [facility] Address [address] [place] [address] Care Team Providers Care Platform Inspector Name Role Phone Kenton Ricks MD Primary Care Provider + [phone] Pebbles Nelson MD Unavailable [phone] Aylin Russ MD Unavailable +[phone] Maricruz Ramirez NP Unavailable [phone] Joanne Lopez RN Unavailable Padmini Leatha Carter Unavailable Unavailable Ben Chahal MD PhD Unavailable +[phone] Chace Oliva MD Unavailable [phone] Giovanna Alexis MD Unavailable Taisha Suarez RN Unavailable Unavaila Sandra Aguirre MD Unavailable +[phone] Abby Higgins MD PhD Unavailable + Adrian Martinez MD Unavailable [phone] Vera Pérez Unavailable Jim Frausto MD Unavailable Анна Robert RN Unavailable Encounter Details Date Type Department Care Team (Late st Contact Info) Description 08/12/2020 Telephone [facility] [address] [address] Hallie Whitaker, RT Social History Tobacco Use Types Packs/Day Years Used Date Smoking Tobacco: Former Smokeless Tobacco: Never Alcohol Use Standard Drinks/Week Comments Yes 0 (1 standard drink = 0.6 oz pur e alcohol) Occassional Sex and Gender Information Value Date Recorded Sex Assigned at Not on file Legal Sex Male 12:58 AM CHILD DEVELOPMENT DIRECTOR Gender Identity Male 11/11/2018 10:31 AM CDT Sexual Orientation Straight 06/09/2019 5: 34 PM CHILD DEVELOPMENT DIRECTOR documented as of this encounter Plan of [...] COVID: Suspected 06/07/2023 06/07/2023 06/07/2023 12:46 PM CHILD DEVELOPMENT DIRECTOR COVID19 06/07/2023 06/07/2023 06/22/2023 3:06 AM CHILD DEVELOPMENT DIRECTOR COVID: Recovered Comment:Added based on recent COVID infection. 06/22/2023 06/22/2023 09/20/2023 3:05 AM C DT COVID: Suspected 07/24/2023 07/24/2023 07/24/2023 3:53 PM CHILD DEVELOPMENT DIRECTOR Diarrhea 07/30/2023 07/30/2023 08/13/2023 3:05 AM CHILD DEVELOPMENT DIRECTOR COVID: Suspected 08/30/2023 08/30/2023 08/30/2023 4:52 PM CHILD DEVELOPMENT DIRECTOR COVID: Suspected 10/12/2023 10/12/2023 10/12/2023 7:57 PM CDT Rhino/Enterovirus 10/12/2023 10/12/2023 10/26/2023 3:05 AM CDT COVID: Suspected 07/10/2024 07/10/2024 07/10/2024 4:53 PM CHILD DEVELOPMENT DIRECTOR COVID: Suspected Comment:07/16/2024 IP Review: no outstanding test, last RPP negative. Mary Tiwari RN 07/16/2024 07/16/2024 10:51 AM CHILD DEVELOPMENT DIRECTOR COVID19 Comment:07/16/2024 IP Review: added by RN, RPP negative. Mary Tiwari RN 07/16/2024 07/16/2024 07/16/2024 10:51 AM CHILD DEVELOPMENT DIRECTOR MRSA Comment:nasalMRSA Isolation Assisted 09/03/24 07/16/2024 08/15/2024 09/03/2024 6:[address] C. difficile suspected 07/19/2024 07/19/202407/19 2:34 PM CHILD DEVELOPMENT DIRECTOR COVID: Suspected 07/23/2024 07/23/2024 07/23/2024 11:28 PM CHILD DEVELOPMENT DIRECTOR C. difficile suspected 07/23/2024 07/24/202407/24 10:31 AM CHILD DEVELOPMENT DIRECTOR Norovirus suspected 07/23/2024 07/24/2024 07/24/19 9:37 AM CHILD DEVELOPMENT DIRECTOR VRE Comment:Contact Precautions (gown and gloves) - not eligible for IP review until 6 months after positive culture - Jerod QURESHI, CONY 10/01/24 07/24/2024 09/20/2024 COVID: Suspected 08/09/2024 08/09/2024 08/09/2024 9:40 AM CHILD DEVELOPMENT DIRECTOR Influenza, adult Comment:08/26/2024 IP Review: pt afebrile but on antipyretics. Needs 24 hours off antipyretics and symptoms significantly improved/resolved in order for isolation to be discontinued. Mary Tiwari RN 08/15/2024 08/15/2024 08/29/2024 3:06 AM CHILD DEVELOPMENT DIRECTOR Coronavirus, droplet 08/15/2024 08/15/202408/29/ 025 3:06 AM CHILD DEVELOPMENT DIRECTOR C. difficile suspected 09/19/2024 09/19/202409/20 3:05 AM [...] documented as of this encounter Care Teams Platform Inspector Relationship Specialty Start Date End Date Kenton Ricks MD PCP - General 08/14/16 Pebbles Nelson MD Referring Physician Cardiology 02/07/19 Aylin Russ MD [address] [address] Referring Physician Pulmonary Disease 02/07/19 Maricruz Ramirez NP [address] [address] Nurse Practitioner Cardiovascular Disease 09/25/21 Joanne Lopez, CONY Registered Nurse Pulmonary Disease 08/24/22 Leatha Cristina RMA Surgical Prehabilitation and Readiness (SPAR) Coordinator 09/01/22 01/02/23 Ben Chahal MD PhD 10 [facility] [address] 2 [place] [address] Medical Oncologist/Digital Campaign Manager Medical Oncology 10/05/22 Chace Oliva MD [address] [facility] [address] [place] [address] Consulting Physician Infectious Diseases 12/22/2204/01 Giovanna Alexis MD [address] [place] [address] Radiation Oncologist Radiation Oncology 03/09/23 Taisha Suarez RN Surgical Prehabilitation and Readiness (SPAR) Coordinator General Surgery 03/20/23 04/10/23 Sandra Ma MD [address] DIV IM MEDICAL ONCOLOGY, [address]A, 7B, [address] [place] [address] Consulting Physician Medical Oncology 04/25/23 05/09/23 Abby Higgins MD PhD [address] DIV IM MEDICAL ONCOLOGY, [address]A, 7B, [address] [place] [address] Medical Oncologist/Digital Campaign Manager Medical Oncology 05/10/23 Adrian Martinez MD [address] DIV SURG TRANSPLANT, [address] [place] [address] Surgical Oncologist Surgical Oncology 05/28/23 Vera Pérez PA [address] [place] [id number] [place] [address] Physician Plate Cleaner Colon and Rectal Surgery 09/13/23 Jim Frausto MD [address] [facility] [phone] [place] [address] Surgeon Colon and Rectal Surgery 11/21/23 Анна Robert, RN [address] [address] SHOP Outpatient Lumpia Wrapper Maker 09/29/24 10/01/24 documented as of this encounter
--- OUTSIDE RECORDS SUMMARY | 2025-02-17 00:33 | XMS_ITS | Encounter Summary ---
Author Organization [facility] Address [address] [place] [address] Phone Care Team Providers Care Route Inspector Name Role Phone Kenton Ricks MD Primary Care Provider + [phone] Pebbles Nelson MD Unavailable [phone] Aylin Russ MD Unavailable [phone] Maricruz Ramirez NP Unavailable [phone] Joanne Lopez RN Unavailable Padmini Leatha Carter Unavailable Unavailable Ben Chahal MD PhD Unavailable [phone] Chace Oliva MD Unavailable [phone] Giovanna Alexis MD Unavailable Taisha Suarez RN Unavailable Unavaila Sandra Aguirre MD Unavailable [phone] Abby Higgins MD PhD Unavailable + Adrian Martinez MD Unavailable Vera Pérez Unavailable Jim Frausto MD Unavailable Анна Robert RN Unavailable Encounter Details Date Type Department Care Team (Late st Contact Info) Description 09/23/2018 Telephone [facility] Cardiology [address] [facility] 8th [place] [address] [place] [address] Pebbles Nelson MD [address] [facility] [address] [place] [address] Social History Tobacco Use Types Packs/Day Years Used Date Smoking Tobacco: Former Smokeless Tobacco: Never Alcohol Use Standard Drinks/Week Comments Yes 0 (1 standard drink = 0.6 oz pur e alcohol) Occassional Sex and Gender Information Value Date Recorded Sex Assigned at Not on file Legal Sex Male 12:58 AM FOOD PRODUCTION SUPERVISOR Gender Identity Male 11/11/2018 10:31 AM CDT Sexual Orientation Straight 06/09/2019 5: 34 PM FOOD PRODUCTION SUPERVISOR documented as of this encounter Plan of [...] COVID: Suspected 06/07/2023 06/07/2023 06/07/2023 12:46 PM FOOD PRODUCTION SUPERVISOR COVID19 06/07/2023 06/07/2023 06/22/2023 3:06 AM FOOD PRODUCTION SUPERVISOR COVID: Recovered Comment:Added based on recent COVID infection. 06/22/2023 06/22/2023 09/20/2023 3:05 AM C DT COVID: Suspected 07/24/2023 07/24/2023 07/24/2023 3:53 PM FOOD PRODUCTION SUPERVISOR Diarrhea 07/30/2023 07/30/2023 08/13/2023 3:05 AM FOOD PRODUCTION SUPERVISOR COVID: Suspected 08/30/2023 08/30/2023 08/30/2023 4:52 PM FOOD PRODUCTION SUPERVISOR COVID: Suspected 10/12/2023 10/12/2023 10/12/2023 7:57 PM CDT Rhino/Enterovirus 10/12/2023 10/12/2023 10/26/2023 3:05 AM CDT COVID: Suspected 07/10/2024 07/10/2024 07/10/2024 4:53 PM FOOD PRODUCTION SUPERVISOR COVID: Suspected Comment:07/16/2024 IP Review: no outstanding test, last RPP negative. Mary Tiwari RN 07/16/2024 07/16/2024 10:51 AM FOOD PRODUCTION SUPERVISOR COVID19 Comment:07/16/2024 IP Review: added by RN, RPP negative. Mary Tiwari RN 07/16/2024 07/16/2024 07/16/2024 10:51 AM FOOD PRODUCTION SUPERVISOR MRSA Comment:nasalMRSA Isolation Group Home 09/03/24 07/16/2024 08/15/2024 09/03/2024 6:[address] C. difficile suspected 07/19/2024 07/19/202407/19 2:34 PM FOOD PRODUCTION SUPERVISOR COVID: Suspected 07/23/2024 07/23/2024 07/23/2024 11:28 PM FOOD PRODUCTION SUPERVISOR C. difficile suspected 07/23/2024 07/24/202407/24 10:31 AM FOOD PRODUCTION SUPERVISOR Norovirus suspected 07/23/2024 07/24/2024 07/24/19 9:37 AM FOOD PRODUCTION SUPERVISOR VRE Comment:Contact Precautions (gown and gloves) - not eligible for IP review until 6 months after positive culture - Jerod QURESHI, CONY 10/01/24 07/24/2024 09/20/2024 COVID: Suspected 08/09/2024 08/09/2024 08/09/2024 9:40 AM FOOD PRODUCTION SUPERVISOR Influenza, adult Comment:08/26/2024 IP Review: pt afebrile but on antipyretics. Needs 24 hours off antipyretics and symptoms significantly improved/resolved in order for isolation to be discontinued. Mary Tiwari RN 08/15/2024 08/15/2024 08/29/2024 3:06 AM FOOD PRODUCTION SUPERVISOR Coronavirus, droplet 08/15/2024 08/15/2024 025 3:06 AM FOOD PRODUCTION SUPERVISOR C. difficile suspected 09/19/2024 09/19/202409/20 3:05 AM [...] documented as of this encounter Care Teams Route Inspector Relationship Specialty Start Date End Date Kenton Ricks MD PCP - General 08/14/16 Pebbles Nelson MD Referring Physician Cardiology 02/07/19 Aylin Russ MD [id number] [place], [place] [address] Referring Physician Pulmonary Disease 02/07/19 Maricruz Ramirez NP [address] [facility] [address]052 [place], [place] [id number] Nurse Practitioner Cardiovascular Disease 09/25/21 Joanne Lopez, RN Registered Nurse Pulmonary Disease 08/24/22 Leatha Cristina RMA Surgical Prehabilitation and Readiness (SPAR) Coordinator 09/01/22 01/02/23 Ben Chahal MD PhD 10 [facility] # 2 DIV IM [place] [address] Medical Oncologist/Outdoor Emergency Care Technician Medical Oncology 10/05/22 Chace Oliva MD [address] [place] [address] Consulting Physician Infectious Diseases 12/22/2204/01 Giovanna Alexis MD [address] [place] [address] Radiation Oncologist Radiation Oncology 03/09/23 Taisha Suarez RN Surgical Prehabilitation and Readiness (SPAR) Coordinator General Surgery 03/20/23 04/10/23 Sandra Ma MD [address] DIV IM MEDICAL ONCOLOGY, [facility] 7A, 7B, 7C [place] [address] Consulting Physician Medical Oncology 04/25/23 05/09/23 Abby Higgins MD PhD [address] DIV IM MEDICAL ONCOLOGY, [address]A, 7B, [address] [place] [address] Medical Oncologist/Outdoor Emergency Care Technician Medical Oncology 05/10/23 Adrian Martinez MD [address] DIV SURG TRANSPLANT, [address] [place] [address] Surgical Oncologist Surgical Oncology 05/28/23 Vera Pérez PA [address] [place] [phone] [place] [address] Physician Scrubber System Attendant Colon and Rectal Surgery 09/13/23 Jim Frausto MD [address] [phone] [place] [address] Surgeon Colon and Rectal Surgery 11/21/23 Анна Robert, RN 4590 [facility] [address] [place] [address] SH[facility] Outpatient Pressure Testing Technician 09/29/24 10/01/24 documented as of this encounter
--- OUTSIDE RECORDS SUMMARY | 2025-02-17 00:33 | XMS_ITS | Encounter Summary ---
Author Organization [facility] Address [address] [place] [address] Phone Care Team Providers Care Respiratory Care Practitioner Name Role Phone Kenton Ricks MD Primary Care Provider + [phone] Kenton Ricks MD Primary Care Provider + [phone] Pebbles Nelson MD Unavailable [phone] Aylin Russ MD Unavailable [phone] Maircruz Ramirez NP Unavailable [phone] Joanne Lopez RN Unavailable Padmini Leatha Carter Unavailable Unavailable Ben Chahal MD PhD Unavailable [phone] Chace Oliva MD Unavailable [phone] Giovanna Alexis MD Unavailable Taisha Suarez RN Unavailable Unavaila Sandra Aguirre MD Unavailable +[phone] Abby Higgins MD PhD Unavailable + Adrian Martinez MD Unavailable [phone] Vera Pérez Unavailable Jim Frausto MD Unavailable [phone] Анна Robert RN Unavailable [phone] Encounter Details Date Type Department Care Team (Late st Contact Info) Description 05/19/2016 Orders Only [facility]INCONV Provider, MD Max [address] [place] [address] Social History Tobacco Use Types Packs/Day Years Used Date Smoking Tobacco: Never Assessed Sex and Gender Information Value Date Recorded Sex Assigned at Not on file Legal Sex Male 12:58 AM POTATO BUCKER Gender Identity Male 11/11/2018 10:31 AM CDT Sexual Orientation Straight 06/09/2019 5: 34 PM POTATO BUCKER documented as of this encounter Plan of [...] COVID: Suspected 06/07/2023 06/07/2023 06/07/2023 12:46 PM POTATO BUCKER COVID19 06/07/2023 06/07/2023 06/22/2023 3:06 AM POTATO BUCKER COVID: Recovered Comment:Added based on recent COVID infection. 06/22/2023 06/22/2023 09/20/2023 3:05 AM CDT COVID: Suspected 07/24/2023 07/24/2023 07/24/2023 3:53 PM POTATO BUCKER Diarrhea 07/30/2023 07/30/2023 08/13/2023 3:05 AM POTATO BUCKER COVID: Suspected 08/30/2023 08/30/2023 08/30/2023 4:52 PM POTATO BUCKER COVID: Suspected 10/12/2023 10/12/2023 10/12/2023 7:57 PM CDT Rhino/Enterovirus 10/12/2023 10/12/2023 10/26/2023 3:05 AM CDT COVID: Suspected 07/10/2024 07/10/2024 07/10/2024 4:53 PM POTATO BUCKER COVID: Suspected Comment:07/16/2024 IP Review: no outstanding test, last RPP negative. Mary Tiwari RN 07/16/2024 07/16/2024 10:51 AM POTATO BUCKER COVID19 Comment:07/16/2024 IP Review: added by RN, RPP negative. Mary Tiwari RN 07/16/2024 07/16/2024 07/16/2024 10:51 AM POTATO BUCKER MRSA Comment:nasalMRSA Isolation Group Home 09/03/24 07/16/2024 08/15/2024 09/03/2024 6:[address] C. difficile suspected 07/19/2024 07/19/202407/19 2:34 PM POTATO BUCKER COVID: Suspected 07/23/2024 07/23/2024 07/23/2024 11:28 PM POTATO BUCKER C. difficile suspected 07/23/2024 07/24/202407/24 10:31 AM POTATO BUCKER Norovirus suspected 07/23/2024 07/24/2024 07/24/19 9:37 AM POTATO BUCKER VRE Comment:Contact Precautions (gown and gloves) - not eligible for IP review until 6 months after positive culture - Jerod QURESHI, CONY 10/01/24 07/24/2024 09/20/2024 COVID: Suspected 08/09/2024 08/09/2024 08/09/2024 9:40 AM POTATO BUCKER Influenza, adult Comment:08/26/2024 IP Review: pt afebrile but on antipyretics. Needs 24 hours off antipyretics and symptoms significantly improved/resolved in order for isolation to be discontinued. Mary Tiwari RN 08/15/2024 08/15/2024 08/29/2024 3:06 AM POTATO BUCKER Coronavirus, droplet 08/15/2024 08/15/2024 025 3:06 AM POTATO BUCKER C. difficile suspected 09/19/2024 09/19/202409/20 3:05 AM [...] documented as of this encounter Care Teams Respiratory Care Practitioner Relationship Specialty Start Date End Date Kenton Ricks MD PCP - General 08/14/16 Kenton Ricks MD PCP - General 09/17/08 08/13/16 Pebbles Nelson MD Referring Physician Cardiology 8/9/19 Aylin Russ MD [address] [place] [address] Referring Physician Pulmonary Disease 02/07/19 Maricruz Ramirez PT SKILLED [address] [place] [address] Nurse Practitioner Cardiovascular Disease 09/25/21 Joanne Lopez, RN Registered Nurse Pulmonary Disease 08/24/22 Leatha Cristina RMA Surgical Prehabilitation and Readiness (SPAR) Coordinator 09/01/22 01/02/23 Ben Chahal MD PhD 10 [facility] # 2 [place] [address] Medical Oncologist/Flight Technician Medical Oncology 10/05/22 Chace Oliva MD [address] [place] [address] Consulting Physician Infectious Diseases 12/22/2204/01 Giovanna Alexis MD [address] [place] [address] Radiation Oncologist Radiation Oncology 03/09/23 Taisha Suarez, furniture refinisher Prehabilitation and Readiness (SPAR) Coordinator General Surgery 03/20/23 04/10/23 Sandra Ma MD [address] DIV IM MEDICAL ONCOLOGY, [address]A, 7B, [address] [place] [address] Consulting Physician Medical Oncology 04/25/23 05/09/23 Abby Higgins MD PhD [address] DIV IM MEDICAL ONCOLOGY, [address]A, 7B, [address] [place] [address] Medical Oncologist/Flight Technician Medical Oncology 05/10/23 Adrian Martinez MD 4921 [facility] DIV SURG TRANSPLANT, [facility] [address] [place] [address] Surgical Oncologist Surgical Oncology 05/28/23 Vera Pérez PA [address] [place] [phone] [place] [address] Physician Instructional Design Consultant Colon and Rectal Surgery 09/13/23 Jim Frausto MD [address] [facility] [phone] [place] [address] Surgeon Colon and Rectal Surgery 11/21/23 Анна Robert, RN 4590 [facility] [address] [place] [address] SHOP Outpatient Filter Bed Placer 09/29/24 10/01/24 documented as of this encounter
--- OUTSIDE RECORDS SUMMARY | 2025-02-17 00:33 | XMS_ITS | Clinical Summary ---
Author Organization [facility] Address [address] [place] [address] Phone Care Team Providers Care Town Manager Name Role Phone Ketnon Ricks MD Primary Care Provider [phone] Allergies Active Allergy Reactions Criticality Noted Date [...] ACEI to ARB. 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 Acute on [...] Comments Blood Pressure 118/68 05/24/2022 9:24 AM FIGHTING VEHICLE SYSTEMS MAINTAINER Pulse - - Temperature 35.7 C (96.3 F) 05/24/2022 9:24 AM FIGHTING VEHICLE SYSTEMS MAINTAINER Respiratory Rate 18 05/24/2022 9:24 AM FIGHTING VEHICLE SYSTEMS MAINTAINER Oxygen Saturation - - Inhaled Oxygen Concentration - - Weight 126 kg (278 lb) 05/24/2022 9:24 AM FIGHTING VEHICLE SYSTEMS MAINTAINER Height 172.7 cm (5' 8) 05/24/2022 9:24 AM FIGHTING VEHICLE SYSTEMS MAINTAINER Body Mass Index 42.27 05/24/2022 9:24 AM FIGHTING VEHICLE SYSTEMS MAINTAINER Plan of Treatment Health Maintenance Due Date Last Done Comments Pneumococcal PPSV23/PCV13 65 + Years / Low and Medium Risk (1 of 2 - PCV) 2005 Influenza Vaccine (#1) 2025 , 04/01/2017, 06/14/2016 Insurance [employer] MEDICARE ADVANTAGE Care Teams Town Manager Relationship Specialty Start Date End Date Kenton Ricks MD [address] [place] [address] PCP - General Family Medicine 02/16/22
--- OUTSIDE RECORDS SUMMARY | 2025-02-17 00:33 | XMS_ITS | Encounter Summary ---
Author Organization [facility] Address [address] [place] [address] Phone Care Team Providers Care Power Tool Repair Technician Name Role Phone Kenton Ricks MD Primary Care Provider + [phone] Pebbles Nelson MD Unavailable [phone] Aylin Russ MD Unavailable [phone] Maricruz Ramirez NP Unavailable [phone] Joanne Lopez RN Unavailable Padmini Leatha Carter Unavailable Unavailable Ben Chahal MD PhD Unavailable +[phone] Chace Oliva MD Unavailable [phone] Giovanna Alexis MD Unavailable Taisha Suarez RN Unavailable Unavaila Sandra Aguirre MD Unavailable +[phone] Abby Higgins MD PhD Unavailable + Adrian Martinez MD Unavailable Vera Pérez Unavailable [phone] Jim Frausto MD Unavailable [phone] Анна Robert RN Unavailable [phone] Encounter Details Date Type Department Care Team (Latest Contact Info) Description 11/15/2017 Orders Only [facility] Scanning, Provider Social History Tobacco Use Types Packs/Day Years Used Date Smoking Tobacco: Former Sex and Gender Information Value Date Recorded Sex Assigned at Not on file Legal Sex Male 12:58 AM COURSE INSTRUCTOR Gender Identity Male 11/11/2018 10:31 AM CDT Sexual Orientation Straight 06/09/2019 5: 34 PM COURSE INSTRUCTOR documented as of this encounter Plan of [...] COVID: Suspected 06/07/2023 06/07/2023 06/07/2023 12:46 PM COURSE INSTRUCTOR COVID19 06/07/2023 06/07/2023 06/22/2023 3:06 AM COURSE INSTRUCTOR COVID: Recovered Comment:Added based on recent COVID infection. 06/22/2023 06/22/2023 09/20/2023 3:05 AM C DT COVID: Suspected 07/24/2023 07/24/2023 07/24/2023 3:53 PM COURSE INSTRUCTOR Diarrhea 07/30/2023 07/30/2023 08/13/2023 3:05 AM COURSE INSTRUCTOR COVID: Suspected 08/30/2023 08/30/2023 08/30/2023 4:52 PM COURSE INSTRUCTOR COVID: Suspected 10/12/2023 10/12/2023 10/12/2023 7:57 PM CDT Rhino/Enterovirus 10/12/2023 10/12/2023 10/26/2023 3:05 AM CDT COVID: Suspected 07/10/2024 07/10/2024 07/10/2024 4:53 PM COURSE INSTRUCTOR COVID: Suspected Comment:07/16/2024 IP Review: no outstanding test, last RPP negative. Mary Tiwari RN 07/16/2024 07/16/2024 10:51 AM COURSE INSTRUCTOR COVID19 Comment:07/16/2024 IP Review: added by CLAUDIO DONNELLY negative. Mary Tiwari RN 07/16/2024 07/16/2024 07/16/2024 10:51 AM COURSE INSTRUCTOR MRSA Comment:nasalMRSA Isolation Assisted 09/03/24 07/16/2024 08/15/2024 09/03/2024 6:[address] C. difficile suspected 07/19/2024 07/19/202407/19 2:34 PM COURSE INSTRUCTOR COVID: Suspected 07/23/2024 07/23/2024 07/23/2024 11:28 PM COURSE INSTRUCTOR C. difficile suspected 07/23/2024 07/24/202407/24 10:31 AM COURSE INSTRUCTOR Norovirus suspected 07/23/2024 07/24/2024 07/24/19 9:37 AM COURSE INSTRUCTOR VRE Comment:Contact Precautions (gown and gloves) - not eligible for IP review until 6 months after positive culture - Jerod QURESHI, CONY 10/01/24 07/24/2024 09/20/2024 COVID: Suspected 08/09/2024 08/09/2024 08/09/2024 9:40 AM COURSE INSTRUCTOR Influenza, adult Comment:08/26/2024 IP Review: pt afebrile but on antipyretics. Needs 24 hours off antipyretics and symptoms significantly improved/resolved in order for isolation to be discontinued. Mary Tiwari RN 08/15/2024 08/15/2024 08/29/2024 3:06 AM COURSE INSTRUCTOR Coronavirus, droplet 08/15/2024 08/15/202408/29/ 025 3:06 AM COURSE INSTRUCTOR C. difficile suspected 09/19/2024 09/19/202409/20 3:05 AM [...] documented as of this encounter Care Teams Power Tool Repair Technician Relationship Specialty Start Date End Date Kenton Ricks MD PCP - General 08/14/16 Pebbles Nelson MD Referring Physician Cardiology 02/07/19 Aylin Russ MD [address] [facility] [address] [place] [address] Referring Physician Pulmonary Disease 02/07/19 Maricruz Ramirez NP [address] [facility] [address] [place] [address] Nurse Practitioner Cardiovascular Disease 09/25/21 Joanne Lopez, CONY Registered Nurse Pulmonary Disease 08/24/22 Leatha Cristina RMA Surgical Prehabilitation and Readiness (SPAR) Coordinator 09/01/22 01/02/23 Ben Chahal MD PhD [address] [place] [address] Medical Oncologist/Terminal Superintendent Medical Oncology 10/05/22 Chace Oliva MD [address] [place] [address] Consulting Physician Infectious Diseases 12/22/2204/01 Giovanna Alexis MD [address] [place] [address] Radiation Oncologist Radiation Oncology 03/09/23 Taisha Suarez RN Surgical Prehabilitation and Readiness (SPAR) Coordinator General Surgery 03/20/23 04/10/23 Sandra Ma MD [address] DIV IM MEDICAL ONCOLOGY, [facility] 7A, 7B, [address]C [place] [address] Consulting Physician Medical Oncology 04/25/23 05/09/23 Abby Higgins MD PhD [address] DIV IM MEDICAL ONCOLOGY, [facility] 7A, 7B, [address] [place] [address] Medical Oncologist/Terminal Superintendent Medical Oncology 05/10/23 Adrian Martinez MD [address] DIV SURG TRANSPLANT, [facility] [address] [place] [address] Surgical Oncologist Surgical Oncology 05/28/23 Vera Pérez PA [address] [place] [phone] [place] [address] Physician Mechanic Marine Engine Colon and Rectal Surgery 09/13/23 Jim Frausto MD [address] [facility] [phone] [place] [address] Surgeon Colon and Rectal Surgery 11/21/23 Анна Robert, RN [address] [facility] [address] [place] [address] SHOP Outpatient Financial Professional 09/29/24 10/01/24 documented as of this encounter
--- OUTSIDE RECORDS SUMMARY | 2025-02-17 00:33 | XMS_ITS | Encounter Summary ---
Author Organization [facility] Address [address] [place] [address] Phone Care Team Providers Care Deicer Tester Name Role Phone Kenton Ricks MD Primary Care Provider + [phone] Pebbles Nelson MD Unavailable [phone] Aylin Russ MD Unavailable [phone] Maricruz Ramirez NP Unavailable [phone] Joanne Lopez RN Unavailable Padmini Leatha Carter Unavailable Unavailable Ben Chahal MD PhD Unavailable [phone] Chace Oliva MD Unavailable [phone] Giovanna Alexis MD Unavailable Taisha Suarez RN Unavailable Unavaila Sandra Aguirre MD Unavailable [phone] Abby Higgins MD PhD Unavailable + Adrian Martinez MD Unavailable Vera Pérez Unavailable Jim Frausto MD Unavailable Анна Robert RN Unavailable Encounter Details Date Type Department Care Team (Late st Contact Info) Description 08/10/2020 Telephone [facility] Cardiology [address] [facility] 8th [place] [address] [place] [address] Pebbles Nelson MD [address] [facility] [address] [place] [address] Social History Tobacco Use Types Packs/Day Years Used Date Smoking Tobacco: Former Smokeless Tobacco: Never Alcohol Use Standard Drinks/Week Comments Yes 0 (1 standard drink = 0.6 oz pur e alcohol) Occassional Sex and Gender Information Value Date Recorded Sex Assigned at Not on file Legal Sex Male 12:58 AM RN IMCU Gender Identity Male 11/11/2018 10:31 AM CDT Sexual Orientation Straight 06/09/2019 5: 34 PM RN IMCU documented as of this encounter Plan of [...] COVID: Suspected 06/07/2023 06/07/2023 06/07/2023 12:46 PM RN IMCU COVID19 06/07/2023 06/07/2023 06/22/2023 3:06 AM RN IMCU COVID: Recovered Comment:Added based on recent COVID infection. 06/22/2023 06/22/2023 09/20/2023 3:05 AM C DT COVID: Suspected 07/24/2023 07/24/2023 07/24/2023 3:53 PM RN IMCU Diarrhea 07/30/2023 07/30/2023 08/13/2023 3:05 AM RN IMCU COVID: Suspected 08/30/2023 08/30/2023 08/30/2023 4:52 PM RN IMCU COVID: Suspected 10/12/2023 10/12/2023 10/12/2023 7:57 PM CDT Rhino/Enterovirus 10/12/2023 10/12/2023 10/26/2023 3:05 AM CDT COVID: Suspected 07/10/2024 07/10/2024 07/10/2024 4:53 PM RN IMCU COVID: Suspected Comment:07/16/2024 IP Review: no outstanding test, last RPP negative. Mary Tiwari RN 07/16/2024 07/16/2024 10:51 AM RN IMCU COVID19 Comment:07/16/2024 IP Review: added by RN, RPP negative. Mary Tiwari RN 07/16/2024 07/16/2024 07/16/2024 10:51 AM RN IMCU MRSA Comment:nasalMRSA Isolation Intermediate 09/03/24 07/16/2024 08/15/2024 09/03/2024 6:[address] C. difficile suspected 07/19/2024 07/19/202407/19 2:34 PM RN IMCU COVID: Suspected 07/23/2024 07/23/2024 07/23/2024 11:28 PM RN IMCU C. difficile suspected 07/23/2024 07/24/202407/24 10:31 AM RN IMCU Norovirus suspected 07/23/2024 07/24/2024 07/24/19 9:37 AM RN IMCU VRE Comment:Contact Precautions (gown and gloves) - not eligible for IP review until 6 months after positive culture - Jerod QURESHI, CONY 10/01/24 07/24/2024 09/20/2024 COVID: Suspected 08/09/2024 08/09/2024 08/09/2024 9:40 AM RN IMCU Influenza, adult Comment:08/26/2024 IP Review: pt afebrile but on antipyretics. Needs 24 hours off antipyretics and symptoms significantly improved/resolved in order for isolation to be discontinued. Mary Tiwari RN 08/15/2024 08/15/2024 08/29/2024 3:06 AM RN IMCU Coronavirus, droplet 08/15/2024 08/15/2024 025 3:06 AM RN IMCU C. difficile suspected 09/19/2024 09/19/202409/20 3:05 AM [...] documented as of this encounter Care Teams Deicer Tester Relationship Specialty Start Date End Date Kenton Ricks MD PCP - General 08/14/16 Pebbles Nelson MD Referring Physician Cardiology 02/07/19 Aylin Russ MD [address] [id number] Referring Physician Pulmonary Disease 02/07/19 Maricruz Ramirez NP [address] [facility] [address] [place], [place] [id number] Nurse Practitioner Cardiovascular Disease 09/25/21 Joanne Lopez, RN Registered Nurse Pulmonary Disease 08/24/22 Leatha Cristina RMA Surgical Prehabilitation and Readiness (SPAR) Coordinator 09/01/22 01/02/23 Ben Chahal MD PhD [address] [facility] [address] DIV [place] [address] Medical Oncologist/Water Tanker Driver Medical Oncology 10/05/22 Chace Oliva MD [address] [place] [address] Consulting Physician Infectious Diseases 12/22/2204/01 Giovanna Alexis MD [address] [place] [address] Radiation Oncologist Radiation Oncology 03/09/23 Taisha Suarez RN Surgical Prehabilitation and Readiness (SPAR) Coordinator General Surgery 03/20/23 04/10/23 Sandra Ma MD [address] DIV IM MEDICAL ONCOLOGY, [facility] 7A, 7B, 7C [place] [address] Consulting Physician Medical Oncology 04/25/23 05/09/23 Abby Higgins MD PhD [address] DIV IM MEDICAL ONCOLOGY, [address]A, 7B, [address] [place] [address] Medical Oncologist/Water Tanker Driver Medical Oncology 05/10/23 Adrian Martinez MD [address] DIV SURG TRANSPLANT, [address] [place] [address] Surgical Oncologist Surgical Oncology 05/28/23 Vera Pérez PA [address] [place] [id number] [place] [address] Physician Fisher Weir Colon and Rectal Surgery 09/13/23 Jim Frausto MD [address] [phone] [place] [address] Surgeon Colon and Rectal Surgery 11/21/23 Анна Robert, RN [address] [facility] [address] [place] [address] SHOP Outpatient Manager Forms 09/29/24 10/01/24 documented as of this encounter
--- OUTSIDE RECORDS SUMMARY | 2025-02-17 00:33 | XMS_ITS | Encounter Summary ---
Author Organization [facility] Address [address] [place] [address] Phone Care Team Providers Care Project Management Consultant Name Role Phone Kenton Ricks MD Primary Care Provider + [phone] Pebbles Nelson MD Unavailable [phone] Aylin Russ MD Unavailable [phone] Maricruz Ramirez NP Unavailable [phone] Joanne Lopez RN Unavailable Padmini Leatha Carter Unavailable Unavailable Ben Chahal MD PhD Unavailable [phone] Chace Oliva MD Unavailable [phone] Giovanna Alexis MD Unavailable Taisha Suarez RN Unavailable Unavaila Sandra Aguirre MD Unavailable [phone] Abby Higgins MD PhD Unavailable + Adrian Martinez MD Unavailable [phone] Vera Pérez Unavailable [phone] Jim Frausto MD Unavailable [phone] Анна Robert RN Unavailable [phone] Encounter Details Date Type Department Care Team (Late st Contact Info) Description 07/13/2017 Orders Only [facility] Provider, MD Max [address] [place], [place] [id number] Social History Tobacco Use Types Packs/Day Years Used Date Smoking Tobacco: Former Sex and Gender Information Value Date Recorded Sex Assigned at Not on file Legal Sex Male 12:58 AM RESCUE INSTRUCTOR Gender Identity Male 11/11/2018 10:31 AM CDT Sexual Orientation Straight 06/09/2019 5: 34 PM RESCUE INSTRUCTOR documented as of this encounter Plan [...] COVID: Suspected 06/07/2023 06/07/2023 06/07/2023 12:46 PM RESCUE INSTRUCTOR COVID19 06/07/2023 06/07/2023 06/22/2023 3:06 AM RESCUE INSTRUCTOR COVID: Recovered Comment:Added based on recent COVID infection. 06/22/2023 06/22/2023 09/20/2023 3:05 AM C DT COVID: Suspected 07/24/2023 07/24/2023 07/24/2023 3:53 PM RESCUE INSTRUCTOR Diarrhea 07/30/2023 07/30/2023 08/13/2023 3:05 AM RESCUE INSTRUCTOR COVID: Suspected 08/30/2023 08/30/2023 08/30/2023 4:52 PM RESCUE INSTRUCTOR COVID: Suspected 10/12/2023 10/12/2023 10/12/2023 7:57 PM CDT Rhino/Enterovirus 10/12/2023 10/12/2023 10/26/2023 3:05 AM CDT COVID: Suspected 07/10/2024 07/10/2024 07/10/2024 4:53 PM RESCUE INSTRUCTOR COVID: Suspected Comment:07/16/2024 IP Review: no outstanding test, last RPP negative. Mary Tiwari RN 07/16/2024 07/16/2024 10:51 AM RESCUE INSTRUCTOR COVID19 Comment:07/16/2024 IP Review: added by RN, RPP negative. Mary Tiwari RN 07/16/2024 07/16/2024 07/16/2024 10:51 AM RESCUE INSTRUCTOR MRSA Comment:nasalMRSA Isolation Assisted 09/03/24 07/16/2024 08/15/2024 09/03/2024 6:[address] C. difficile suspected 07/19/2024 07/19/202407/19 2:34 PM RESCUE INSTRUCTOR COVID: Suspected 07/23/2024 07/23/2024 07/23/2024 11:28 PM RESCUE INSTRUCTOR C. difficile suspected 07/23/2024 07/24/202407/24 10:31 AM RESCUE INSTRUCTOR Norovirus suspected 07/23/2024 07/24/2024 07/24/19 9:37 AM RESCUE INSTRUCTOR VRE Comment:Contact Precautions (gown and gloves) - not eligible for IP review until 6 months after positive culture - Jerod QURESHI, RN 10/01/24 07/24/2024 09/20/2024 COVID: Suspected 08/09/2024 08/09/2024 08/09/2024 9:40 AM RESCUE INSTRUCTOR Influenza, adult Comment:08/26/2024 IP Review: pt afebrile but on antipyretics. Needs 24 hours off antipyretics and symptoms significantly improved/resolved in order for isolation to be discontinued. Mary Tiwari RN 08/15/2024 08/15/2024 08/29/2024 3:06 AM RESCUE INSTRUCTOR Coronavirus, droplet 08/15/2024 08/15/2024 025 3:06 AM RESCUE INSTRUCTOR C. difficile suspected 09/19/2024 09/19/202409/20 3:05 [...] documented as of this encounter Care Teams Project Management Consultant Relationship Specialty Start Date End Date Kenton Ricks MD PCP - General 08/14/16 Pebbles Nelson MD Referring Physician Cardiology 02/07/19 Aylin Russ MD [address] [facility] [address] [place] [address] Referring Physician Pulmonary Disease 02/07/19 Maricruz Ramirez NP [address] [facility] [address] [place] [address] Nurse Practitioner Cardiovascular Disease 09/25/21 Joanne Lopez, [place] Registered Nurse Pulmonary Disease 08/24/22 Leatha Cristina RMA Surgical Prehabilitation and Readiness (SPAR) Coordinator 09/01/22 01/02/23 Ben Chahal MD PhD [address] [facility] [address] 2 [place] [address] Medical Oncologist/Bottle Gauger Medical Oncology 10/05/22 Chace Oliva MD [address] [facility] [address] [place] [address] Consulting Physician Infectious Diseases 12/22/2204/01 Giovanna Alexis MD [address] [place] [address] Radiation Oncologist Radiation Oncology 03/09/23 Taisha Suarez RN Surgical Prehabilitation and Readiness (SPAR) Coordinator General Surgery 03/20/23 04/10/23 Sandra Ma MD [address] DIV IM MEDICAL ONCOLOGY, [facility] 7A, 7B, [address] [place] [address] Consulting Physician Medical Oncology 04/25/23 05/09/23 Abby Higgins MD PhD [address] DIV IM MEDICAL ONCOLOGY, [facility] 7A, 7B, [address] [place] [address] Medical Oncologist/Bottle Gauger Medical Oncology 05/10/23 Adrian Martinez MD [address] DIV SURG TRANSPLANT, [address] [place] [address] Surgical Oncologist Surgical Oncology 05/28/23 Vera Pérez PA [address] [place] [phone] [place] [address] Physician Vice President Of Operations Colon and Rectal Surgery 09/13/23 Jim Frausto MD [address] [phone] [place] [address] Surgeon Colon and Rectal Surgery 11/21/23 Анна Robert, RN [address] [facility] [address] [place], [place] [address] SHOP Outpatient Dishwasher Preparer 09/29/24 10/01/24 documented as of this encounter
--- OUTSIDE RECORDS SUMMARY | 2025-02-17 00:33 | XMS_ITS | Continuity of Care Document ---
Author Organization [employer] [place] Address [address] [place] [address] [address] [place] [address] Phone Care Team Providers Care Predatory Game Hunter Name Role Phone Johnie Guidry PTA Unavailable [...] Diagnoses Date Provider Providers Copied on Encounter [address], [place], [place], [id number], tel:[phone] Nemo No Information Dec-2 5 Chao Jett. [address] [place] [address], [address], [place], [place], [facility], . tel:[phone] Referring Provider: Duane Llamas Jr, [address] [facility] 310, [place], [address]. tel:[phone] [place] [address]e [address], [place], [place], [id number], tel:[phone] Nemo No Information Dec-2 4 5 [place], [place], [place]. Referring Provider: Duane Llamas Jr, [address] [facility] 310, [place], [address]. tel:[phone] [place] [address], [place], [place], [address], [place] tel:[phone] Nemo No Information Dec-2 5 Chao Jett. [address] [place] [address], [address], [place], [place], [facility], . tel:[phone] Referring Provider: Duane Llamas Jr, [address] [facility] 310, [place], [address]. tel:[phone] [address] [place], [place] [address], [place], [place], [address], tel:[phone] Nemo No Information Dec-1 5 Chao Jett. [address] [place] [address], [address], [place], [facility], . tel:[phone] Referring Provider: Duane Llamas Jr, [address]64 [facility] 310, [place], [address]. tel:[phone] [place] [address], [place], [place], [address], tel:[phone] Nemo No Information Dec-1 5-201 5 Chao Jett. [address] [facility], [address], [place], [facility], . tel:[phone] Referring Provider: Duane Llamas Jr, [address] [address], [place], [address]. tel:[phone] [place] [address] [address] [facility], [place], [place], [address], tel:[phone] Nemo No Information Dec-1 0-201 5 Chao Jett. [address] [place] [address], [address], [place], [facility], . tel:[phone] Referring Provider: Duane Llamas Jr, [address] [address], [place], [address]. tel:[phone] [address] [place] [address] [address] [address], [place], [place], [address], tel:[phone] Nemo No Information Dec-0 3-201 5 Chao Jett. [address] [place] [address], [address], [place], [address], . tel:[phone] Referring Provider: Duane Llamas Jr, [address] [address], [place], [address]. tel:[phone] [place] [address] [address] [address], [place], [place], [address], [place] tel:[phone] Nemo Pain in left shoulderOther specified disorders of bone, shoulderCervi calgiaNeuralg ia and neuritis, unspecifiedMu scle weakness (generalized) Dec-0 2-201 5 [place], [place]. Referring Provider: Duane Llamas Jr, [address] [facility] 310, [place], [address]. tel:[phone] [address] [place] [address], 2121 [facility] 300, [place], [place], [id number], tel:[phone] Nemo No Information Dec-1 0-201 4 Juarez Evelyne. [address] [facility], [address], [place], [address], [place]. tel:[phone] Referring Provider: Duane Llamas Jr, [address] [facility] [address], [place], [address]. tel:[phone] [place] [address], [address] [place], [place] [address] [address], [place], [place], [address], [place] tel:[phone] Nemo No Information 0 3-201 4 Juarez Evelyne. [address] [place] [address], [address], [place], [address], [place]. tel:[phone] Referring Provider: Duane Llamas Jr, [address] [facility] [address], [place], [address]. tel:[phone] [address] [place] [address], [address] [place], [place] [address]u[address] [address], [place], [place], [address], [place] tel:[phone] Nemo No Information May-2 4-201 4 Schranck Johnie. [address] [place] [address], [address], [place], [address], [place]. tel:[phone] Referring Provider: Duane Llamas Jr, [address] [facility] [address], [place], [address]. tel:[phone] [place], [place] [address], [place], [place], [address], [place] tel:[phone] Nemo No Information 9-201 4 Juarez Evelyne. [address] [place] [address], [address], [place], [address], [place]. tel:[phone] Referring Provider: Duane Llamas Jr, [address] [facility] [address], [place], [address]. tel:[phone] [address] [place] [address], [address] [place], [place] [address]u[address] [address], [place], [place], [address], [place] tel:[phone] Nemo No Information 2-201 4 Juarez Evelyne. [address] [place] [address], [address], [place], [address], [place]. tel:[phone] Referring Provider: Duane Llamas Jr, [address] [facility] [address], [place], [address]. tel:[phone] [address] [place], [place] [address] [address], [place], [place], [id number], tel:[phone] Nemo No Information Nov-1 0-201 4 Juarez Evelyne. [address] [place] [address], [address], [place], [facility], . tel:[phone] Referring Provider: Duane Llamas Jr, [address] [facility] [address], [place], [address]. tel:[phone] [address] [place], [place] [address] [address], [place], [place], [address], tel:[phone] Nemo No Information Nov-0 7-201 4 Ujarez Evelyne. [address] [place] [address], [address], [place], [facility], . tel:[phone] Referring Provider: Duane Llamas Jr, [address] [facility] [address], [place], [address]. tel:[phone] [address] [place] [address] [address], [place], [place], [address], tel:[phone] Nemo No Information Nov-0 5-201 4 Juarez Evelyne. [address] [place] [address], [address], [place], [facility], . tel:[phone] Referring Provider: Duane Llamas Jr, [address] [facility] [address], [place], [address]. tel:[phone] [place] [address], [place], [address], tel:[phone] Nemo No Information Apr-3 1-201 4 Juarez Evelyne. [address] [place] [address], [address], [place], [facility], . tel:[phone] Referring Provider: Duane Llamas Jr, [address] [facility] [address], [place], [address]. tel:[phone] [place] [address] [address], [place], [place], [address], [place] tel:[phone] Nemo No Information 4 Juarez Evelyne. [address] [place] [address], [address], [place], [address], . tel:[phone] Referring Provider: Duane Llamas Jr, [address] [facility] 310, [place], [address]. tel:[phone] [address] [place], [place] [address]u[address] [address], [place], [place], [address], [place] tel:[phone] Nemo No Information 2- 4 Juarez Evelyne. [address] [place] [address], [address], [place], [address], [place]. tel:[phone] Referring Provider: Duane Llamas Jr, [address] [facility] 310, [place], [address]. tel:[phone] [address] [place] [address] [address], [place], [place], [address], [place] tel:[phone] Nemo No Information 4 Juarez Evelyne. [address] [place] [address], [address], [place], [address], [place]. tel:[phone] Referring Provider: Duane Llamas Jr, [address] [facility] 310, [place], [address]. tel:[phone] [address] [place], [place] [address] [address], [place], [place], [address], [place] tel:[phone] Nemo No Information 5- 4 Juarez Evelyne. [address] [place] [address], [address], [place], [address], [place]. tel:[phone] Referring Provider: Duane Llamas Jr, [address] [facility] [address], [place], [address]. tel:[phone] [address] [place], [place] [address] [address], [place], [place], [address], tel:[phone] Nemo No Information 3-201 4 Juarez Evelyne. [address] [place] [address], [address], [place], [address], [place]. tel:[phone] Referring Provider: Duane Llamas Jr, [address] [facility] [address], [place], [address]. tel:[phone] [address] [place], [place] [address] [address], [place], [place], [address], [place] tel:[phone] Nemo No Information 0-201 4 Yanelis Chema. [address] [place] [address], [address], [place], [address], [place]. tel:[phone] Referring Provider: Duane Llamas Jr, [address] [facility] [address], [place], [address]. tel:[phone] [address] [place] [address], [place], [place], [address], tel:[phone] Nemo No Information 7-201 4 Juarez Evelyne. [address] [place] [address], [address], [place], [address], [place]. tel:[phone] Referring Provider: Duane Llamas Jr, [address] [facility] [address], [place], [address]. tel:[phone] [address] [place], [place] [address], [place], [place], [address], [place] tel:[phone] Nemo No Information 4-201 4 Juarez Evelyne. [address] [place] [address], [address], [place], [address], [place]. tel:[phone] Referring Provider: Duane Llamas Jr, [address] [facility] [address], [place], [address]. tel:[phone] [address] [place], [place] [address], [place], [place], [address], tel:[phone] Nemo No Information 1-201 4 Juarez Evelyne. [address] [place] [address], [address], [place], [address], . tel:[phone] Referring Provider: Duane Llamas Jr, [address] [facility] 310, [place], [address]. tel:[phone] [place] [address] [address], [place], [place], [address], tel:[phone] Nemo No Information 4 Juarez Evelyne. [address] [place] [address], [address], [place], [place], [facility], [place]. tel:[phone] Referring Provider: Duane Llamas Jr, [address] [facility] [address], [place], [address]. tel:[phone] [address] [place] [address] [address], [place], [place], [address], tel:[phone] Nemo No Information 201 4 Juarez Evelyne. [address] [place] [address], [address], [place], [facility], . tel:[phone] Referring Provider: Duane Llamas Jr, [address] [facility] [address], [place], [address]. tel:[phone] [address] [place] [address] [address], [place], [place], [address], tel:[phone] Nemo No Information 4 Juarez Evelyne. [address] [place] [address], [address], [place], [address], [place]. tel:[phone] Referring Provider: Duane Llamas Jr, [address] [facility] [address], [place], [address]. tel:[phone] [address] [place] [address] [address], [place], [place], [address], tel:[phone] Nemo No Information 4 Juarez Evelyne. [address] [place] [address], [address], [place], [address], . tel:[phone] Referring Provider: Duane Llamas Jr, [address] [facility] [address], [place], [address]. tel:[phone] [address] [place], [place] [address], [place], [place], [address], tel:[phone] Nemo No Information Dec-2 5-201 4 Muehl Joanne. [address] [place] [address], [address], [place], [facility], . tel:[phone] Referring Provider: Duane Llamas Jr, [address] [facility] [address], [place], [address]. tel:[phone] [address] [place], [place] [address], [place], [place], [address], tel:[phone] Nemo No Information Victoriano-0 6-201 3 Juarez Evelyne. [address] [place] [address], [address], [place], [facility], . tel:[phone] Referring Provider: Duane Llamas Jr, [address] [facility] [address], [place], [address]. tel:[phone] [place] [address], [place], [place], [address], tel:[phone] Nemo No Information October-3 0-201 3 Juarez Evelyne. [address] [place] [address], [address], [place], [address], . tel:[phone] Referring Provider: Duane Llamas Jr, [address] [facility] [address], [place], [address]. tel:[phone] [address] [place], [place] [address], [place], [place], [address], tel:[phone] Nemo No Information October-2 8-201 3 Juarez Evelyne. [address] [place] [address], [address], [place], [address], . tel:[phone] Referring Provider: Duane Llamas Jr, [address]14 [facility] [address], [place], [address]. tel:[phone] [address] [place], [place] [address], [place], [place], [address], [place] tel:[phone] Nemo No Information May-2 2-201 3 Juarez Evelyne. [address] [place] [address], [address], [place], [facility], . tel:[phone] Referring Provider: Duane Llamas Jr, [address]14[address] [facility] [address], [place], [address]. tel:[phone] [address] [place], [place] [address], [place], [place], [address], [place] tel:[phone] Nemo No Information May-2 1-201 3 Juarez Evelyne. [address] [place] [address], [address], [place], [facility], . tel:[phone] Referring Provider: Duane Llamas Jr, [address]60 [facility] [address], [place], [address]. tel:[phone] [address] [place] [address], [place], [place], [address], [place] tel:[phone] Nemo No Information May-0 8-201 3 Juarez Evelyne. [address] [place] [address], [address], [place], [address], [place]. tel:[phone] Referring Provider: Duane Llamas Jr, [address] [facility] [address], [place], [address]. tel:[phone] [address] [place], [place] [address] [address], [place], [place], [address], [place] tel:[phone] Nemo No Information May-0 1-201 3 Juarez Evelyne. [address] [place] [address], [address], [place], [address], [place]. tel:[phone] Referring Provider: Duane Llamas Jr, [address] [facility] [address], [place], [address]. tel:[phone] [address] [place] [address], [place], [place], [address], [place] tel:[phone] Nemo No Information Sep-2 9-201 3 Juarez Evelyne. [address] [place] [address], [address], [place], [address], [place]. tel:[phone] Referring Provider: Duane Llamas Jr, [address] [facility] [address], [place], [address]. tel:[phone] [address] [place], [place] [address], [place], [place], [address], [place] tel:[phone] Nemo No Information Sep- 7-201 3 Juarez Evelyne. [address] [place] [address], [address], [place], [address], [place]. tel:[phone] Referring Provider: Duane Llamas Jr, [address] [facility] [address], [place], [address]. tel:[phone] [address] [place], [place] [address] [address], [place], [place], [address], [place] tel:[phone] Nemo No Information Sep-1 5-201 3 Juarez Evelyne. [address] [place] [address], [address], [place], [address], [place]. tel:[phone] Referring Provider: Duane Llamas Jr, [address] [facility] [address], [place], [address]. tel:[phone] [address] [place], [place] [address], [place], [place], [address], [place] tel:[phone] Nemo No Information Sep-1 2-201 3 Juarez Evelyne. [address] [place] [address], [address], [place], [address], [place]. tel:[phone] Referring Provider: Duane Llamas Jr, [address]5775 [facility] [address], [place], [address]. tel:[phone] [place] [address] [address], [place], [place], [address], [place] tel:[phone] Nemo No Information Apr-1 0-201 3 Juarez Evleyne. [address] [place] [address], [address], [place], [place], [facility], . tel:[phone] Referring Provider: Duane Llamas Jr, [address] [facility] [address], [place], [address]. tel:[phone] [address] [place] [address], [place], [place], [address], tel:[phone] Nemo No Information Apr-0 4-201 3 Juarez Evelyne. [address] [place] [address], [address], [place], [place], [facility], . tel:[phone] Referring Provider: Duane Llamas Jr, [address] [facility] [address], [place], [address]. tel:[phone] [address] [place] [address]e [address], [place], [address], tel:[phone] Nemo No Information Apr-0 3-201 3 Juarez Evelyne. [address] [place] [address], [address], [place], [facility], . tel:[phone] Referring Provider: Duane Llamas Jr, [address]55 [facility] [address], [place], [address]. tel:[phone] [address] [place] [address]e [address], [place], [address], tel:[phone] Nemo No Information Mar-2 9-201 3 Juarez Evelyne. [address] [place] [address], [address], [place], [facility], . tel:[phone] Referring Provider: Duane Llamas Jr, 94361 [facility] [address], [place], [address]. tel:[phone] [address] [place] [address]e [address], [place], [address], tel:[phone] Nemo No Information Mar-2 7-201 3 Juarez Evelyne. [address] [place] [address], [address], [place], [facility], . tel:[phone] Referring Provider: Duane Llamas Jr, [address], [address]. tel:[phone] [address] [place] [address]e [address], [place], [address], [place] tel:[phone] Nemo No Information Mar-2 5-201 3 Juarez Evelyne. [address] [place] [address], [facility] [address], [place], [address], . tel:[phone] Referring Provider: Duane Llamas Jr, 12127 [facility] 310[place], [place], [address]. tel:[phone] [address] [place] [address] [address], [place], [place], [address], [place] tel:[phone] Nemo No Information Mar-2 1-201 3 Lazaro Stephensn. [address] [place] [address], [facility] [address], [place], [address], . tel:[phone] Referring Provider: Duane Llamas Jr, [address], [address]. tel:[phone] [address] [place] [address], [id number], [place] tel:[phone] Nemo No Information Mar-2 0-201 3 Juarez Evelyne. [address] [place] [address], [address], [place], [address], [place]. tel:[phone] Referring Provider: Duane Llamas Jr, [address], [address]. tel:[phone] [address] [place] [address]e [address], [place], [address], [place] tel:[phone] Nemo No Information Mar-1 8-201 3 Juarez Evelyne. [address] [place] [address], [address], [place], [address], [place]. tel:[phone] Referring Provider: Kenton Ricks, [address] [place], [address]. tel:[phone] [facility], [address] [place] [address]e [address], [place], [address], tel:[phone] Nemo No Information Mar-1 5-201 3 Juarez Evelyne. [address] [place] [address], [facility] 105, [place], [place], [facility], [place]. tel:[phone] Referring Provider: Kenton Ricks, [address] [place], [address]. tel:[phone] [address] [place], [place] [address]e [address], [place], [address], [place] tel:[phone] Nemo No Information Mar-1 3-201 3 Juarez Evelyne. [address] [place] [address], [facility] [address], [place], [facility], [place]. tel:[phone] Referring Provider: Kenton Ricks, [address] [place], [address]. tel:[phone] [address] [place] [address], [id number], [place] tel:[phone] Nemo No Information Mar-1 1-201 3 Juarez Evelyne. [address] [place] [address], [address], [facility], [place]. tel:[phone] Referring Provider: Kenton Ricks, [address] [place], [address]. tel:[phone] [address] [place] [address] [place] [address], [id number], [place] tel:[phone] Nemo No Information Mar-0 8-201 3 Juarez Evelyne. [address] [place] [address], [facility] [address], [place], [facility], [place]. tel:[phone] Referring Provider: Kenton Ricks, [address] [place], [address]. tel:[phone] [address] [place] [address], [address] [place] [address]e [address], [place], [address], tel:[phone] Nemo No Information Mar-0 6-201 3 Juarez Evelyne. [address] [place] [address] [facility] 105, [place], [facility], [place]. tel:[phone] Referring Provider: Kenton Ricks, [address] [place], [address]. tel:[phone] [address] [place] [address], [id number], tel:[phone] Nemo No Information Mar-0 4-201 3 Juarez Evelyne. [address] [place] [address], [address], [place], [facility], [place]. tel:[phone] Referring Provider: Kenton Ricks, [address] [place], [address]. tel:[phone] [address] [place] [address], [id number], tel:[phone] Nemo No Information Aug-0 1-201 3 Juarez Evelyne. [address] [place] [address], [address], [facility], [place]. tel:[phone] Referring Provider: Kenton Ricks, [address] [place], [address]. tel:[phone] [address] [place] [address], [id number], tel:[phone] Nemo No Information Aug-2 7-201 3 Juarez Evelyne. [address] [place] [address], [address], [facility], [place]. tel:[phone] Referring Provider: Kenton Ricks, [address] [place], [address]. tel:[phone] [address] [place] [address], [id number], tel:[phone] Nemo No Information 6-201 3 Juarez Evelyne. [address] [place] [address], [facility] [address], [place], [facility], [place]. tel:[phone] Referring Provider: Kenton Ricks, [address] [place], [address]. tel:[phone] [address] [place] [address] [facility] [address], [place], [place], [address], [place] tel:[phone] Nemo No Information 3 Juarez Evelyne. [address] [place] [address], [address], [place], [address], [place]. tel:[phone] Referring Provider: Kenton Ricks, [address] [place], [address]. tel:[phone] [address] [place] [address] [place], [place] [address]u[address], [place], [place], [address], [place] tel:[phone] Nemo No Information 3 Juarez Evelyne. [address] [place] [address], [facility] 105, [place], [facility], [place]. tel:[phone] Referring Provider: Kenton Ricks, [address] [place], [address]. tel:[phone] [address] [place] [address] [place], [place] [address]u[address], [place], [place], [id number], [place] tel:[phone] Nemo No Information 3 Juarez Evelyne. [address] [place] [address], [facility] 105, [place], [address], [place]. tel:[phone] Referring Provider: Kenton Ricsk, [address] [place], [address]. tel:[phone] [address] [place] [address] [place], [place] [address], [place], [place], [address], [place] tel:[phone] Nemo No Information 3 Juarez Evelyne. [address] [place] [address], [facility] 105, [place], [address], [place]. tel:[phone] Referring Provider: Kenton Ricks, [address] [place], [address]. tel:[phone] [id number] [place] [address] [place], [place] [address], [place], [place], [id number], [place] tel:[phone] Nemo No Information 3 Juarezcarlos Augustinei. [address] [facility], [address], [place], [address], [place]. tel:[phone] Referring Provider: Kenton Ricks, [address] [place], [address]. tel:[phone] [employer] [place], [facility] [address], [id number], tel:[phone] Nemo Pain in joint involving shoulder region 3 Juarez Evelyne. [address] [facility], [address], [place], [address], [place]. tel:[phone] Referring Provider: Kenton Ricks, [address] [facility], [place], [address]. tel:[phone] Family History Family Member Type Diagnosis Age [...]
--- OUTSIDE RECORDS SUMMARY | 2025-02-17 00:34 | XMS_ITS | Clinical Summary ---
Author Organization [facility] Address [address] [place] [address] Care Team Providers Care 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 Name Role Phone Kenton Ricks MD Primary Care Provider + [phone] Pebbles Nelson MD Unavailable [phone] Aylin Russ MD Unavailable [phone] Maricruz Ramirez NP Unavailable [phone] Joanne Lopez RN Unavailable Padmini Ben Walker MD PhD Unavailable [phone] Giovanna Alexis MD Unavailable Abby Higgins MD PhD Unavailable + Adrian Martinez MD Unavailable [phone] Vera Pérez Unavailable [phone] Jim Frausto MD Unavailable [phone] Allergies Active Allergy Reactions Criticality Noted Date [...] needed for wheezing Active lancets 33 gauge miscIndications:Ty pe 2 diabetes mellitus with other specified complication, without long-term current use of insulin Use humana true metrix to check glucose 3-4 times a day 300 each 3 04/17/20 22 Active diclofenac sodium (VOLTAREN) 1 % gel Apply 2 g topically 4 (four) times a day as needed (pain) 08/31/19 23 Active oxyBUTYnin XL (DITROPAN XL) 15 mg 24 hr tablet Take 1 tablet (15 mg total) by mouth nightly 02/23/20 23 Active fluticasone furoate-vilanteroL (BREO ELLIPTA) 100-25 mcg/dose diskus inhaler Inhale 1 puff daily Rinse mouth with water after use. Do not swallow. 1 each 5 03/21/20 23 Active fluticasone propionate (FLONASE) 50 mcg/actuation nasal [...] mg total) by mouth nightly Active multivit brkayrqa-tzuf-XG-c alcium (THERA-M) 9 mg iron-400 mcg tablet Take 1 tablet by mouth nightly Active Gemtesa 75 mg tablet Take 75 mg by mouth nightly 02/12/20 24 Active pen needle, diabetic (BD Ultra-Fine Mini Pen Needle) 31 gauge x 3/16 needleIndications: Type 2 diabetes mellitus with other specified complication, without long-term current use of insulin TAKE WITH INSULIN INJECTION 4 TIMES A DAY 400 each 2 05/28/20 24 Active FreeStyle Stephen 3 Plus Sensor deviceIndications: Type 2 diabetes mellitus with microalbuminuria, with long-term current use of insulin (HCC) Use to continually monitor glucose, change sensor every 15 days 6 each 3 06/01/20 24 Active Additional Information Patient not taking.Reported on 01/19/2025 blood glucose diagnostic (True Metrix Glucose Test Strip) stripIndications:T ype 2 diabetes mellitus with other specified complication, without long-term current use of insulin USE HUMANA TRUE METRIX TO CHECK GLUCOSE 3-4 TIMES A DAY 300 strip 3 07/03/19 25 Active rosuvastatin (CRESTOR) 5 mg tabletIndications: Mixed hyperlipidemia Take 1 tablet (5 mg total) by mouth every morning 90 tablet 1 08/13/[address] (PROTONIX) 40 mg EC tablet Take 1 tablet (40 mg total) by mouth 2 (two) times a day 60 tablet 08/27/19 25 Active lidocaine (LIDODERM) 5 %Indications:Chron ic diarrhea Place 1 patch on the skin daily for 12 hours Remove & discard patch within 12 hours or as directed by MD. 90 patch 3 10/23/19 25 026 Active spironolactone (ALDACTONE) 25 mg tablet TAKE 1 TABLET (25 MG TOTAL) BY MOUTH DAILY. 90 tablet 3 11/15/19 25 Active pancrelipase (CREON) 24,000 units of lipase capsule Take 5 capsules by mouth with meals. Take 2 capsules by mouth at bedtime and 1-2 capsules by mouth with snacks daily. 1800 capsule 3 11/19/19 25 Active acetaminophen 500 mg capsuleIndications :Fever,Pain Take 2 capsules (1,000 mg total) by mouth every 6 (six) hours as needed for fever or headaches 11/25/19 25 Active insulin aspart (NovoLOG) 100 unit/mL (3 mL) pen for injectionIndicatio ns:Type 2 diabetes mellitus with other specified complication, [...] Notify physician for adjustment of insulin orders. 11/25/19 25 Active Additional Information Patient taking differently: Sliding [...] other (For anal fissure) 5 Other 2 11/25/19 25 Active ondansetron (ZOFRAN) 8 mg tabletIndications: Pancreatic adenocarcinoma (HCC) Take 1 tablet (8 mg total) by mouth every 8 (eight) hours as needed for nausea or vomiting 20 tablet 11/25/19 25 Active oxyCODONE (ROXICODONE) 5 mg immediate release tabletIndications: Pain Take 1 tablet (5 mg total) by mouth every 6 (six) hours as needed for pain 20 tablet 11/25/19 25 Active polyethylene glycol (MIRALAX) 17 gram packetIndications: constipation Take 1 packet (17 g total) by mouth 2 (two) times a day 11/25/19 25 Active psyllium, aspartame, SF (METAMUCIL SF) 3.4 gram packet Take 1 packet by mouth daily 11/26/19 25 026 Active torsemide (DEMADEX) 20 mg tablet Take 0.5 tablets (10 mg total) by mouth daily 11/25/19 25 Active NIFEdipine (PROCARDIA) ointment 0.2 %Indications:Anal Fissure Insert into the rectum every 8 (eight) hours as needed (before BM) 60 g 11/25/19 25 Active traZODone (DESYREL) 50 mg tablet Take 1 tablet (50 mg total) by mouth nightly as needed for sleep 30 tablet 11/25/19 25 Active al & mag hydroxide simethicone-lidoca ine oral suspension mixture Take 40 mL by mouth 4 (four) times a day as needed (Heartburn/ Indigestion) 200 mL 12/11/19 25 Active ferrous sulfate 325 mg (65 mg of elemental iron) tabletIndications: Iron Deficiency Anemia Take 1 tablet (325 mg total) by mouth daily with breakfast 90 tablet 1 12/18/19 25 025 Active dicyclomine (BENTYL) 20 mg tablet Take [...] skin daily Active gabapentin (NEURONTIN) 600 mg tabletIndications: Neuropathic Pain Take 1 tablet (600 mg total) by mouth 3 (three) times a day 90 tablet 1 01/16/20 25 025 Active cyclobenzaprine (FLEXERIL) 5 mg tabletIndications: Muscle Spasm Take 1 tablet (5 mg total) by mouth 3 (three) times a day as needed for muscle spasms 30 tablet 01/16/20 25 Active oxyCODONE (ROXICODONE) 5 mg immediate release tabletIndications: Pain Take 1 tablet (5 mg total) by mouth every 6 (six) hours as needed for pain (for severe pain) for up to 10 days 10 tablet 01/16/20 25 025 Active Problems Problem Noted Date Diagnosed Date [...] 08/23/2024 Assessment & Plan (08/26/2024 3:51 PM HAND MOLDER AND CASTER): The patient reported left eye pain with [...] 08/11/2024 Assessment & Plan (08/26/2024 4:05 PM HAND MOLDER AND CASTER): Patient developed hematemesis on 08/11 with hypotension [...] 08/04/2024 Assessment & Plan (08/22/2024 10:54 PM HAND MOLDER AND CASTER): Started allopurinol this admission Moderate protein-calorie malnutrition [...] 07/16/2024 Assessment & Plan (07/20/2024 11:28 AM HAND MOLDER AND CASTER): - Resulted with Nystatin Anal fissure 11/21/2023 Assessment & Plan (01/15/2025 11:15 AM CDT): -Continue prn lidocaine ME and nifedipine ointment Assessment & Plan (01/14/2025 11:42 AM CDT): -Continue prn lidocaine ME and nifedipine ointment Assessment & Plan (01/13/2025 12:04 PM CDT): -Continue prn lidocaine ME and nifedipine ointment Assessment & Plan (01/13/2025 1:06 AM CDT): -Continue prn lidocaine ME and nifedipine ointment Assessment & Plan (12/10/2024 [...] topical CCB - cannot obtain her at [facility] Assessment & Plan (11/22/2024 12:07 PM CDT): - psyllium qAM, added miralax daily - Added lidocaine jelly qid prn - Sitz baths BID - Will try to start topical CCB - cannot obtain her at [facility] Assessment & Plan (11/21/2024 11:50 AM CDT): - psyllium qAM, added miralax daily - Added lidocaine jelly qid prn - Sitz baths BID - Will try to start topical CCB - cannot obtain her at [facility] Assessment & Plan (11/20/2024 11:11 AM [...] Plan (11/24/2024 9:17 AM CDT): -CPAP at [facility] Assessment & Plan (11/23/2024 9:48 AM CDT): -CPAP at [facility] Assessment & Plan (11/22/2024 12:07 PM CDT): -CPAP at [facility] Assessment & Plan (11/21/2024 11:50 AM CDT): -CPAP at [facility] Assessment & Plan (11/20/2024 11:11 AM CDT): -CPAP at [facility] Assessment & Plan (11/20/2024 1:34 AM CDT): -CPAP at [facility] Assessment & Plan (10/15/2023 2:34 PM CDT): xCont ppv qhs Assessment & Plan (10/13/2023 2:03 PM CDT): Cont ppv qhs COPD (chronic obstructive pulmonary disease) Assessment & Plan (08/26/2024 4:00 PM HAND MOLDER AND CASTER): Cont. breo ellipta, prn albuterol Iron deficiency [...] 07/25/2023 Assessment & Plan (07/26/2023 12:35 PM HAND MOLDER AND CASTER): - Likely multifactorial 2/2 malignancy, recent whipple, chemotherapy, and pain - Very poor PO intake - RD c/s - Started Mirtazapine - Dietary supplementation - Increased Creon as above Malaise 07/24/2023 Assessment & Plan (07/25/2023 2:16 PM HAND MOLDER AND CASTER): - RVP negative - Improving Kidney lesion 07/21/2023 Assessment & Plan (07/25/2023 2:21 PM HAND MOLDER AND CASTER): - Left renal cyst noted since at [...] 07/20/2023 Assessment & Plan (07/26/2023 12:33 PM HAND MOLDER AND CASTER): - Acute on chronic epigastric pain following [...] 07/09/2023 Assessment & Plan (07/24/2023 5:22 PM HAND MOLDER AND CASTER): - Replace per protocol Acute hypoxemic respiratory failure due to COVID -19 06/07/2023 Assessment & Plan (06/12/2023 3:47 PM HAND MOLDER AND CASTER): Presented with 3 days of fever, dry [...] 05/30/2023 Assessment & Plan (07/14/2024 12:30 PM HAND MOLDER AND CASTER): History of Postoperative GI bleed. EGD 05/09/23 [...] w/ colitis of transverse colon Microbiology: - 8/6 BCx x2 NGTD - 02/04 RPP 8/ negative - 12/14 BCx w/ 1 of 2 (+) E. coli Anti-infectives: - Cefepime 02/04-02/07 - Linezolid 02/04-02/07 - Metronidazole 02/05-02/07 Plan: - Continue observing off of antibiotics Neurogenic bladder 02/05/2023 Assessment & Plan (07/21/2023 2:06 AM HAND MOLDER AND CASTER): Also has Hx of prostate cancer s/p [...] 11/21/2022 Assessment & Plan (08/26/2024 4:05 PM HAND MOLDER AND CASTER): The patient presented with elevated alkaline phosphatase [...] he is scheduled MRI in December at [facility] (requires cardiac monitoring due to ICD) - he is hoping to have this done sooner. Ileus 11/21/2022 Assessment & Plan (07/20/2024 11:29 AM HAND MOLDER AND CASTER): - KUB done 07/13 showing ileus without [...] 10/08/2022 Assessment & Plan (07/21/2023 2:04 AM HAND MOLDER AND CASTER): Diagnosed in August 2022, now s/p course of Eliquis. Presented with trace b/l lower ext edema, b/l erythema and mild tenderness which per patient is increased from baseline. Had similar presentation last hospitalization and LE duplex 06/07 was negative - CTM and consider rescanning if persistent Assessment & Plan (06/09/2023 4:47 PM HAND MOLDER AND CASTER): Hx of DVT in August 2022, he [...] 09/23/2022 Assessment & Plan (06/12/2023 3:50 PM HAND MOLDER AND CASTER): - contact dermatitis? Not concerned about drug [...] such as Vaseline or Eucerin cream - Cintia munson benadryl prn for symptomatic relief Assessment & Plan (09/24/2022 9:31 AM CDT): Noted initially by on 09/21, worsening today (09/24) w/ livedoid pattern, wo broad differential at this point including vasculitis vs drug side effect - Patient is on Gemcitabine which can cause a huge array of derm issues from vasculitis to annular plaques to melisa skin necrosis. - transfer to [facility] for derm eval Anemia 09/22/2022 Assessment & Plan (07/26/2023 12:35 PM HAND MOLDER AND CASTER): Acute on chronic. 7.4 on admission. 5 [...] negative. Assessment & Plan (06/12/2023 3:46 PM HAND MOLDER AND CASTER): HGb 7, plt 94, wbc 1.4, abs [...] 09/22/2022 Assessment & Plan (07/26/2023 12:34 PM HAND MOLDER AND CASTER): Has Hx of ileus. On scheduled Linzess, Miralax and PRN Senna-Docusate at home. Patient states he's been having 4-5 soft stools daily - Increased Creon as above. Bowel regimen. Assessment & Plan (06/07/2023 11:26 PM HAND MOLDER AND CASTER): Continue home regimen of Linzess, Miralax and [...] (08/30/2022): Added automatically from request for surgery [id number] Assessment & Plan (10/15/2023 2:34 PM CDT): Hx of L axillary nodes on CT increased from prior study Should f/u with Dr. Chahal Assessment & Plan (10/13/2023 2:03 PM CDT): Hx of L axillary nodes on CT increased from prior study Should f/u with Dr. Chahal Assessment & Plan (07/26/2023 12:31 PM HAND MOLDER AND CASTER): - s/p whipple. Follows with Dr. Chahal [...] but no arterial involvement. - On 08/20/22, 23 CT AP (with contrast) shows pancreatic duct [...] plan to hold of next cycle of Charlton/Abraxane till infectious etiology is ruled out Assessment [...] plan to hold of next cycle of Charlton/Abraxane till infectious etiology is ruled out Assessment [...] surveillance Assessment & Plan (08/26/2024 4:00 PM HAND MOLDER AND CASTER): s/p whipple with PV/SMV resection (04/2023) and neoadjuvant chemo (completed 08/2023). Most recent scan showed no evidence of disease recurrence Currently on surveillance with CA 19-[address] CAP every 3 months Assessment & Plan (07/10/2024 10:48 PM HAND MOLDER AND CASTER): Pancreatic cancer s/p Whipple with PV/SMV resection on 04/11/2023 s/p neoadjuvant tx, On surveillance OP follow up. Assessment & Plan (06/08/2023 5:32 PM HAND MOLDER AND CASTER): Pancreatic adenocarcinoma sp Whipple, now on Gemcitabine [...] 1 Assessment & Plan (08/25/2022 12:23 PM HAND MOLDER AND CASTER): Recurrent UTI followed by ID with scrotal [...] 06/09/2019 Assessment & Plan (06/09/2019 12:54 PM HAND MOLDER AND CASTER): He is agreeable to rescheduling the splenic MRI to further define previously incidentally discovered lesion, to better characterize this and establish follow up as necessary. Order entered. I provided Mr. Greco with the phone # to radiology to call if he does not hear back from the office by next week. Chronic diastolic (congestive) heart failure Assessment & Plan (07/14/2024 12:35 PM HAND MOLDER AND CASTER): HFpEF Euvolemic, normotensive On hold diuretics for now given pt NPO on IVF for ileus, will restart once able to take in po Assessment & Plan (06/11/2023 10:01 PM HAND MOLDER AND CASTER): ECHO 11/21 EF 69%, grade I diastolic [...] diet Assessment & Plan (08/24/2022 1:10 PM HAND MOLDER AND CASTER): Stable, continued torsemide, spironolactone Assessment & Plan (09/24/2021 12:42 AM CDT): Patient is feeling better. states legs have decreased by half. Continue with IV lasix. Continue to monitor Cr and lytes as we diurese. Holding torsemide. Continue aldactone with hold parameters. Assessment & Plan (08/18/2018 1:16 AM HAND MOLDER AND CASTER): Patient presented with increased shortness of breath [...] NPPV Assessment & Plan (08/26/2024 4:02 PM HAND MOLDER AND CASTER): continue nightly CPAP Assessment & Plan (07/21/2023 6:17 AM HAND MOLDER AND CASTER): Desaturations noted in the ED during sleep per on monitor while on RA (not recorded) - continue nightly BiPAP Assessment & Plan (06/07/2023 11:32 PM HAND MOLDER AND CASTER): Continue nightly BiPAP Assessment & Plan (03/18/2023 [...] 8:24 AM CDT): -resume home CPAP at [facility] Assessment & Plan (09/22/2022 3:17 AM CDT): -resume home CPAP at [facility] Assessment & Plan (08/24/2022 1:08 PM HAND MOLDER AND CASTER): - home CPAP machine use Assessment & Plan (09/24/2021 12:39 AM CDT): Patient has home NPPV which has been reordered. Assessment & Plan (08/18/2018 1:17 AM HAND MOLDER AND CASTER): Patient with a history of of bilateral diaphragmatic paralysis with central and obstructive sleep apnea. Restart CPAP Shortness of breath at rest 08/18/2018 Assessment & Plan (08/18/2018 1:27 AM HAND MOLDER AND CASTER): Patient with complex past medical history with [...] 07/26/2018 Assessment & Plan (08/26/2024 4:05 PM HAND MOLDER AND CASTER): H/o vtach s/p ICD 2013 EP consulted for MRCP earlier in admission. Patient's device is conditioned for MRI. Risk stratification: standard Assessment & Plan (07/10/2024 10:38 PM HAND MOLDER AND CASTER): History of ventricular tachycardia ICD in place Assessment & Plan (07/21/2023 2:11 PM HAND MOLDER AND CASTER): Follows with Dr. Nelson in EP for history of VT s/p ICD. He denies recent shocks - will order device interrogation - last device check 06/05 --> Normal parameters identified on leads with lead impedance out of range. Less than 6 months of battery longevity noted (3 % remaining). No new arrhythmic events - Patient has an appt with EP in b Assessment & Plan (06/11/2023 9:59 PM HAND MOLDER AND CASTER): Follows with Dr. Nelson in EP for history of VT s/p ICD. Denies any recent shocks, as per not there was unscheduled alarm this month due to RV lead impedance. Has outpatient appointment in August Outpatient follow up with EP Assessment & Plan (03/18/2023 1:23 AM CDT): Monitor. MRI conditional. If needs MRI, will need to go to [facility]. Assessment & Plan (02/05/2023 6:58 PM [...] ordered Assessment & Plan (08/18/2018 1:17 AM HAND MOLDER AND CASTER): Last device interrogation was in July of [...] s/p shoulder surgery. Follows with Dr. Russ ([facility]) as OP. On Symbicort at home. 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 Russ - c/w Breo-Ellipta Assessment & Plan (08/18/2018 1:17 AM HAND MOLDER AND CASTER): Continue with gabapentin Chronic heart failure with [...] PO Assessment & Plan (08/26/2024 4:06 PM HAND MOLDER AND CASTER): Volume down on admission due to diarrhea, now appear slightly volume up, likely I/s/o transfusions and held diuretics Continue to hold home torsemide and spironolactone for now, consider gently resuming prior to discharge Assessment & Plan (07/26/2023 12:34 PM HAND MOLDER AND CASTER): BLE edema with erythema noted on exam. [...] elevated at home, he can contact his PCP/airset molder for further insulin adjustments. Assessment & Plan [...] regimen Assessment & Plan (08/26/2024 4:05 PM HAND MOLDER AND CASTER): Last A1c 8.4. Home regimen: tresiba 45 units, novolog 12 units w/ breakfast and dinner, 8 units with lunch and sliding scale 1:50 > 150 Continue lantus 5 units qam + SSI Assessment & Plan (07/17/2024 2:29 PM HAND MOLDER AND CASTER): - On tresiba 24U Qam and Lispro [...] hdssi Assessment & Plan (07/26/2023 12:33 PM HAND MOLDER AND CASTER): Insulin dependant. Home regimen: Tresiba 42 units qam, Meal-time insulin 15u tid, SSI. Has had poor oral intake over last 2-3 weeks. He mentions his Stephen 2 sensor has been recording low sugars in 40s-50s overnight for 1 week - SSI inpatient - QID accuchecks Assessment & Plan (06/08/2023 5:39 PM HAND MOLDER AND CASTER): Hgb1c 8.4% in 04/23, follows with endo [...] -SSI Assessment & Plan (08/24/2022 1:07 PM HAND MOLDER AND CASTER): -Home regimen metformin + Tresiba 35 units qAM and novolog 11 units with meals plus SSI -Continue basal bolus regimen, dose reduced while inpatient -Accuchecks Assessment & Plan (09/24/2021 12:38 AM CDT): Patient on PO hypoglycemics. Monitor on SSI. Assessment & Plan (06/09/2019 12:53 PM HAND MOLDER AND CASTER): Diet controlled. A1C at goal. On ARB. Follow up with ophtho as previously scheduled. Recommend statin for primary prevention. He will follow up with his PCP for this Adrenal nodule (CMS/HCC) 09/06/2015 Assessment & Plan (06/09/2019 12:49 PM HAND MOLDER AND CASTER): Nodule has not grown on interim imaging. Needs low dose dexamethasone suppression test annually x 5 years since initial evaluation given propensity of some adrenal nodules to become cortisol secreting overtime. Thyroid nodule 09/06/2015 Assessment & Plan (06/09/2019 12:48 PM HAND MOLDER AND CASTER): S/p FNA with benign cytology. Will repeat US in the spring to monitor biopsied thyroid nodule for growth. Multinodular goiter 05/10/2015 Hernia of abdominal wall 02/18/2015 Assessment & Plan (06/09/2019 12:54 PM HAND MOLDER AND CASTER): He will follow up with Dr. 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 Higgins in medical oncology [...] 02/23/2012 Assessment & Plan (08/26/2024 4:06 PM HAND MOLDER AND CASTER): continue home rosuvastatin consider resuming ASA Assessment & Plan (07/10/2024 10:44 PM HAND MOLDER AND CASTER): Cath in 10/2023 nonobstructive coronary artery disease [...] asthma Assessment & Plan (07/21/2023 2:06 AM HAND MOLDER AND CASTER): Follows with Dr. Nelson - Continue home Breo and PRN albuterol inhaler Assessment & Plan (06/07/2023 11:31 PM HAND MOLDER AND CASTER): Follows with Dr. Nelson in pulmonary -Continue home Breo and PRN albuterol inhaler Assessment & Plan (09/25/2022 1:41 AM CDT): -Continue home inhalers. Assessment & Plan (09/22/2022 11:00 AM CDT): Continue home inhalers. Assessment & Plan (08/21/2022 4:13 AM HAND MOLDER AND CASTER): -Symbicort replaced with formulary Breo Ellipta while inpatient -Continue prn albuterol Assessment & Plan (09/24/2021 12:42 AM CDT): Continue breathing treatment. Resolved Problems Problem Noted Date Diagnosed Date Resolved Date Abdominal pain, generalized 01/12/2025 01/13/2025 Ventilator associated pneumonia 08/22/2024 08/22/2024 Acute hypoxemic respiratory failure 08/22/2024 08/23/2024 Assessment & Plan (08/22/2024 8:41 PM HAND MOLDER AND CASTER): Fevers + O2 requirement Aug 14, subsequently found to be positive for Influenza A and Coronavirus ([id number]). 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 S/p tamiflu, Linezolid (08/15-08/18), Cefepime (08/15- 08/17), Ciprofloxacin (08/08). Currently on RA. - supportive care Dysuria 07/25/2024 08/24/2024 Assessment & Plan (08/22/2024 10:12 PM HAND MOLDER AND CASTER): Now resolved. UA on admission with leuk [...] 07/25/2024 Assessment & Plan (07/29/2024 3:21 PM HAND MOLDER AND CASTER): Pt reports new burning pain around left axilla that wraps to the front of his chest. Notes he had this before and area began draining pus and had a foul odor - no erythema or rash noted -Us L axilla- no signs of any fluid collection or lymphadenopathy - already on gabapentin Gastrointestinal ulcer 07/24/202408/22 Assessment & Plan (08/11/2024 8:44 PM HAND MOLDER AND CASTER): - Recent admission 07/10-07/20 for abd pain. [...] 07/24/2024 Assessment & Plan (08/02/2024 11:26 AM HAND MOLDER AND CASTER): Resolved - Baseline Cr 0.5. Cr on admission was 1.01 - Likely pre-renal due to diarrhea - improved with IVF Dehydration 07/24/2024 08/26/2024 Assessment & Plan (07/26/2024 12:35 PM HAND MOLDER AND CASTER): - due to diarrhea - s/p 1L IVF bolus in CCC and maintenance IVF Diarrhea 07/19/2024 08/24/2024 Assessment & Plan (08/09/2024 2:16 PM HAND MOLDER AND CASTER): - P/w 1-day history of 7-8 episodes [...] resolved Assessment & Plan (07/20/2024 11:33 AM HAND MOLDER AND CASTER): - Developed after resolution of ileus. - C diff negative - Increased Creon back to home dose - Imodium prn - Hold Linzess until diarrhea resolved Abdominal pain 11/09/2023 08/25/2024 Assessment & Plan (08/11/2024 8:39 PM HAND MOLDER AND CASTER): Acute on chronic abdominal pain. Likely multifactorial, [...] hematemesis Assessment & Plan (07/14/2024 12:31 PM HAND MOLDER AND CASTER): Hx of pancreatic cancer s/p whipple presented [...] NSAIDs Assessment & Plan (07/10/2024 9:32 PM HAND MOLDER AND CASTER): Hx of pancreatic cancer s/p whipple presented [...] 08/24/2024 Assessment & Plan (08/11/2024 8:40 PM HAND MOLDER AND CASTER): Complained chest pain at left chest while [...] 08/01/2024 Assessment & Plan (08/01/2024 2:54 PM HAND MOLDER AND CASTER): -has ICD in place Assessment & Plan [...] 08/22/2024 Assessment & Plan (08/05/2024 11:42 PM HAND MOLDER AND CASTER): RESOLVED. DDx include viral infection vs transient [...] prn. Assessment & Plan (07/20/2024 11:30 AM HAND MOLDER AND CASTER): - Developed fever 38.4 C on 07/16 [...] of mets or infection and transferred from [facility] to [facility]. ID here with low concern for CATHETER BUILDER infection. - CT neck/soft tissue with contrast: [...] due to ICD. Plan to transfer to [facility] for further evaluation w/ possible MRI [...] which raise concern for an infectious syndrome -RUBBER ENGRAVER swab RPP negative -check blood cultures; hold [...] 10/28/2022 Assessment & Plan (08/24/2022 1:12 PM HAND MOLDER AND CASTER): Referred pancreatitis pain. 12 lead EKG shows no acute changes, baseline NSR with RBB and intrafascicular block. Trop negative. Elevated transaminase level 08/21/2022 10/28/2022 Assessment & Plan (08/24/2022 1:10 PM HAND MOLDER AND CASTER): First noted to have elevated alk phos, [...] 023 Assessment & Plan (08/22/2022 2:20 PM HAND MOLDER AND CASTER): Diagnosed as outpatient and started on fidaxomicin by ID 08/16/2022. Still with persistent diarrhea. -Continue fidaxomicin -ID following Pancreatic lesion 08/20/2022 10/28/2022 Overview (08/21/2022): Added automatically from request for surgery [id number] Assessment & Plan (08/24/2022 1:08 PM HAND MOLDER AND CASTER): S/P EUS wit FNA confirmed adenocarcinoma. GI arranging oncology and surgical follow up as outpatient Urinary tract infection asso ciated with cystostomy catheter, initial encounter 04/09/2022 0 10/28/2022 Brugada syndrome 07/09/2020 09/10/2020 Cough in adult 06/09/2019 10/28/2022 Assessment & Plan (06/09/2019 12:52 PM HAND MOLDER AND CASTER): This appears to be chronic and persist despite switching from ACEI to ARB. He will contact his strategic planning analyst to follow up regarding this. 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 Continue attention to diet, low carb, exercise as able. Palpitations 10/30/2012 10/28/2022 Disorder of lung 08/05/2012 10/28/2022 Narcolepsy 01/24/2012 10/28/2022 Abnormal blood chemistry level 01/19/2012 10/28/2022 Syncope 02/28/2011 10/28/2022 Encounter for preventive health examination 11/23/2010 10/28/2022 Encounters Date Type Department Care Team Description 02/13/2025 Telephone [facility] Surgery [address] [place] [address] Medical Office Building [address] [place] [address] Oksana Faust, CONY 02/06/2025 Telephone [facility] Cardiology [address] [place] [address] Advanced Medicine 8th [place] [address] [place] [address] Pebbles Nelson MD 02/05/2025 1:36 PM CDT - 02/05/2025 11:59 PM CDT Hospital Encounter [facility] [address] [place] [address] Malignant neoplasm of pancreas, unspecified location of malignancy (HCC); Intractable pain Discharge Disposition: Discharge to home or self care 02/05/2025 Documentation [facility] Oncology [address] [place] [address] Floor 5 [place] [address] Breanna Han RN 01/30/2025 Telephone [facility] Oncology [address] [place] [address] Floor 5 [place] [address] Breanna Han RN 01/29/2025 Orders Only [facility] Oncology [address] [place] [address] Floor 5 [place] [address] Ben Chahal MD PhD Malignant neoplasm of pancreas, unspecified location of malignancy (HCC) (Primary Dx); Intractable pain 01/26/2025 Documentation [facility] Cardiology [address] [place] [address] Medical Office Building [address] [place] [address] Pebbles Nelson MD 01/23/2025 Results Follow-Up [facility] Gastroenterology [address] [facility] Medical Office Building 4, [address] [place] [address] Debbie Rolon RN MRI/MRCP (abdomen) W WO Contrast 01/22/2025 Orders Only [facility] Cardiology [address] [place] [address] Office Building [address] [place] [address] Pebbles Nelson MD 01/21/2025 9:27 AM CDT - 01/21/2025 11:59 PM CDT Hospital Encounter [facility] Radiology 1 [place] [address] Encounter for imaging to screen for metal prior to magnetic resonance imaging (MRI) Discharge Disposition: Discharge to home or self care 01/21/2025 7:48 AM CDT - 01/21/2025 11:59 PM CDT Hospital Encounter [facility] Radiology 1 [place] [address] scan, pelvis Discharge Disposition: Discharge to home or self care 01/21/2025 7:48 AM CDT - 01/21/2025 11:59 PM CDT Hospital Encounter [facility] Radiology [address] [facility] [place] [address] Encounter for imaging to screen for metal prior to magnetic resonance imaging (MRI) Discharge Disposition: Discharge to home or self care 01/21/2025 Documentation Cardiology Tati Patino, RUBBER ENGRAVER 01/19/2025 3:00 PM CDT Office Visit [facility] Oncology [address] [facility] Floor 5 [place] [phone] Ben Chahal MD PhD Pancreatic adenocarcinoma (HCC) (Primary Dx) 01/19/2025 2:00 PM CDT Clinical Support [facility] Oncology Lab [address] [facility] Floor 5 [place] [address] Pancreatic adenocarcinoma (HCC) 01/19/2025 1:45 PM CDT Lab [facility] - Lab Collection [address] [facility] Floor 5 [place] [address] Ben Chahal MD PhD Pancreatic adenocarcinoma (HCC) 01/19/2025 12:38 PM CDT - 01/19/2025 11:59 PM CDT Hospital Encounter [facility] [place] [address] [facility] Floor 8 [place] [address] Pancreatic adenocarcinoma (HCC) Discharge Disposition: Discharge to home or self care 01/13/2025 Orders Only [facility] Oncology [facility] Floor 5 [place] [address] Ben Chahal MD PhD Pancreatic adenocarcinoma (HCC) (Primary Dx) 01/12/2025 7:45 PM CDT - 01/15/2025 3:41 PM CDT Hospital Encounter [facility] [address] [address] [place] [address] Chaz Hernandez MD Heath, MD Regla Gonzalez Radha Devi, MD Littich, Cb Ellsworth MD Abdominal pain, generalized (Primary Dx); Pigmented skin lesion; Acute on chronic abdominal pain Discharge Disposition: Discharge to home or self care 01/09/2025 Telephone [facility] Gastroenterology [address] [place] [address] 12th [place] [address] Afsaneh Whyte LPN Follow-up 01/06/2025 8:40 AM CDT Office Visit [facility] Endocrinology Metabolism and Lipid [address] [facility] Medical Office Building 4, [address] [place] [address] Margaret Balderas MD Type 2 diabetes mellitus with other specified complication, without long-term current use of insulin (HCC) (Primary Dx); Type 2 diabetes mellitus with microalbuminuria, with long-term current use of insulin (HCC); Mixed hyperlipidemia; Class 1 obesity due to excess calories with serious comorbidity and body mass index (BMI) of 34.0 to 34.9 in adult 12/19/2024 Telephone [facility] Cardiology [address] [facility] 8th [place] [address] [place] [address] Gil Baldwin MD 12/14/2024 Orders Only [facility] Cardiology [address] [facility] Office Building 3 [address] [place] [address] Pebbles Nelson MD 12/09/2024 1:13 AM CDT - 12/10/2024 12:45 PM CDT Hospital Encounter [facility] [address] [address] [place] [address] Mary Lagunas MD Godbold, Tracey Lynn, MD Abdominal pain (Primary Dx); Rectal bleeding; Anal fissure Discharge Disposition: Discharge to home or self care 11/19/2024 1:14 PM CDT - 11/24/2024 11:09 AM CDT Hospital Encounter [facility] [address] [address] [place] [address] Katie Jung MD Cras, MD Danni Haile, Tavon Palacios MD Anal fissure (Primary Dx); Abdominal pain, generalized; Type 2 diabetes mellitus with other specified complication, without long-term current use of insulin (HCC); Pancreatic adenocarcinoma (HCC) Discharge Disposition: Discharge to home or self care 11/19/2024 Telephone [facility] Gastroenterology [address] [facility] 12th [place] [address] Connie Suarez from Last 3 Months Immunizations Immunization Administration [...] 02/22/2019 Surgical History Surgery Date Site/Laterality Comments ME TONSILLECTOMY PRIMARY/SECONDARY <AGE 12 07/02/1957 - 07/01/1958 [...] materials from doctor or pharmacy Sometimes 09/03/2023 [facility] Utilities Answer Date Recorded In the past 12 months has [facility] [employer], gas, oil, or water [employer] threatened to shut off services in your [...] often do you attend chur ch or yarsanism services? More than 4 times per year 01/13/2025 Do you belong to any clubs o r organizations such as druze groups, unions, fraternal or athletic groups, or [...] Date Recorded PHQ-2 Total Score 1 09/21/2024 [facility] - Occupational Stress [...] place to sleep or slept in a retirement (including now)? No 11/12/2023 PHQ-9 Answer Date [...] any time in the past [address] [facility], were you homeless or living in a retirement (including now)? No 01/13/2025 Personal Safety Answer Date Recorded Have you ever been in or are you currently in a harmful physical or emotional relationship or is someone making you feel afraid or unsafe? Denies 01/13/2025 Sex and Gender Information Value Date Recorded Sex Assigned at Not on file Legal Sex Male 12:58 AM HAND MOLDER AND CASTER Gender Identity Male 11/11/2018 10:31 AM CDT Sexual Orientation Straight 06/09/2019 5: 34 PM HAND MOLDER AND CASTER Obstetrics History Last Filed Vital Signs Vital [...] Prostate Cancer Screening-PSA 04/16/2022 04/16/2020 Covid-19 Vaccine (5 - 2023-2 5 season) 2024 05/21/2021, 10/13/2020, 09/18/2020, Additional history exists Albumin Creatinine Ratio, Urine 02/28/2025 02/29/2024, 07/28/2021, 06/14/2019 Influenza Vaccine (#1) 2025 , 05/08/2023, 08/25/2022, Additional history exists Hemoglobin A1C 05/22/2025 11/19/2024, 2 08/2024, 07/10/2024, Additional history exists Depression Screening 09/20/2025 [...] 11/11/2024, 07/23/2023 Colon Cancer Screening-DNA Stool Discontinued 11/12/19 25, 07/23/2023 Colon Cancer Screening-FIT Discontinued 11/11/2024, Colon Cancer Screening-Sigmoidoscopy Discontinued 11/11/2024, 07/23/2023 Abdominal Aortic Aneurysm (A AA) Screen Completed 01/12/2025, 12/09/2024, 11/19/2024, Additional history exists Medical Devices Implanted Type Area Coal Chute Worker Device Identifier Shelf Expiration Date Model / Serial / Lot Biotronik Inc Implant Cardiac Defibrillator Dual Chamber Dr Chaparro Mri Compatible Ilisharmin Huy [id number] - [id number] - [id number] Implanted:Qty: 1 on 10/10/2023 by Pebbles Nelson MD at [facility] ICD Left: Chest Wall Biotronik Inc [id number] 08/01/2025 [id number] / [id number] / Medtronic Bladder Lead [id number] Lead Pelvis Medtronic [id number] 8 / [id number] / Lead (Ra)-Setrox S S 53 Implanted:2013 by Pebbles Nelson MD (Quantity not on file) Lead Heart Biotronik 350 974 SETROX S S 53 / [id number] / Lead (Rv)-Linox Smart Sd 65/18 Implanted:2013 by Pebbles Nelson MD (Quantity not on file) Lead Heart Biotronik 359 067 LINOX SMART SD / [id number] / Medtronic Inc Tyrx Absorbable Antibacterial Envelope-Large 3.3x2.9in [id number] - [id number] - [id number] Implanted:Qty: 1 on 10/10/2023 by Pebbles Nelson MD at [facility] Other - see comments Left: Chest Wall Medtronic Inc 07/03/2024 [id number] / [id number] / [id number] Description:Antibacterial en velope Conmed Lei Viabil 8mm X 6cm Longwire [id number] - [id number] - [id number] Implanted:Qty: 1 on 12/15/2022 by Fede Das MD at [facility] Stent N/A: Bile Duct Conmed Lei 12/11/2024 [id number] / [id number] / [employer] Scientific Lei 8.5 Fr Nasal Biliary Catheter [id number] - [id number] Implanted:Qty: 1 on 04/25/2023 by Zuri Mera MD at [facility] Tube N/A: Jejunum [employer] Lei 04/02/2025 [id number] / / [id number] Medtronic Interstim Bladder Stimulator 3058-03/26/2020 Implanted:2019 (Quantity not on file) Pelvis Medtronic [id number] / [id number] / Description:MRI compatable Use pt remote (menu MRI active) [employer] Lei Wallflex 8mm 8fr 60mm Rapid Exchange Delivery System Stent [id number] - [id number] Implanted:Qty: 1 on 09/08/2022 by Fede Das MD at [facility] N/A: Bile Duct [employer] Lei 03/21/2024 [id number] / / [id number] Angio Dynamics Xcela Power Port 8fr [id number] - [id number] Implanted:Qty: 1 on 09/13/2022 at [facility] Angio Dynamics 04/19/2027 [id number] / / [id number] [employer] Lei Supple [employer] 8x6cm Patch Cardiovascular [id number] - [id number] - [id number] Implanted:Qty: 1 on 04/11/2023 by Adrian Martinez MD at [facility] N/A: Superior Mesenteric Vein [employer] Lei [id number] 06/09/2027 [id number] / [id number] / [employer] Lei 8.5 Fr Nasal Biliary Catheter [id number] - [id number] Implanted:Qty: 1 on 05/01/2023 by Fede Das MD at [facility] Left: Nose [employer] Lei 12/18/2025 [id number] / / [id number] Explanted Type Area Coal Chute Worker Device Identifier Shelf Expiration Date Model / Serial / Lot Icd-Iforia 7 Dr-T Implanted:Qty: 1 on 02/19/2014 by Pebbles Nelson MD Explanted:Qty: 1 on 10/10/2023 ICD Chest Biotronik [id number] IFORIA 7 NANCIE / [id number] / [employer] Lei 10fr 5cm Biliary Stent [id number] - [id number] Implanted:Qty: 1 on 08/22/2022 by Fede Das MD at [facility] Explanted:Qty: 1 on 09/08/2022 by Fede Das MD at [facility] N/A: Bile Duct [employer] Lei 01/27/2023 [id number] / / [id number] Procedures Procedure Name Priority Date/Time Associated Diagnosis Comments CTA ABDOMEN Schedule RTIESH, Read Routine (Patient lives out of area) [...] (MRI) IRON PROFILE W/ IBC STAT 01/19/2025 1 :32 PM CDT Pancreatic adenocarcinoma (HCC) FERRITIN STAT 01/19/2025 1:32 PM CDT Pancreatic adenocarcinoma (HCC) EGFR STAT 01/19/2025 1:32 PM CDT Pancreatic adenocarcinoma (HCC) DIFFERENTIAL AUTO Routine 01/19/2025 1:3 2 PM CDT Pancreatic adenocarcinoma (HCC) CBC WITH AUTO DIFFERENTIAL Routine 01/19/2025 1:32 PM CDT Pancreatic adenocarcinoma (HCC) COMPREHENSIVE METABOLIC PANEL STAT 01/19/2025 1:32 PM CDT Pancreatic adenocarcinoma (HCC) CANCER ANTIGEN 19-9 Routine 01/19/2025 1 :32 PM CDT Pancreatic adenocarcinoma (HCC) CT CHEST WO CONTRAST Schedule Routine, Read Routine (OP Routine) 01/19/2025 1:12 PM CDT Pancreatic adenocarcinoma (HCC) XR CHEST 1 VIEW IP Routine 01/15/2025 12:51 PM CDT POCT GLUCOSE DEVICE Routine 01/15/2025 12:30 PM CDT POCT GLUCOSE DEVICE Routine 01/15/2025 11:49 AM CDT POCT GLUCOSE DEVICE Routine 01/15/2025 8 :14 AM CDT EGFR Routine 01/15/2025 6:07 AM CDT DIFFERENTIAL AUTO Routine 01/15/2025 6:0 7 AM CDT CBC WITH AUTO DIFFERENTIAL Routine 01/15/2025 6:07 AM CDT BASIC METABOLIC PANEL Routine 01/15/2025 6:07 AM CDT POCT GLUCOSE DEVICE Routine 01/14/2025 9 :51 PM CDT POCT GLUCOSE DEVICE Routine 01/14/2025 5 :03 PM CDT INFECTION PREVENTION FOREIGN AURIS PCR, SURVEILLANCE Routine 01/14/2025 12:16 PM CDT POCT GLUCOSE DEVICE Routine 01/14/2025 11:26 AM CDT POCT GLUCOSE DEVICE Routine 01/14/2025 7 :55 AM CDT EGFR Routine 01/14/2025 5:41 AM CDT DIFFERENTIAL AUTO Routine 01/14/2025 5:4 1 AM CDT BASIC METABOLIC PANEL Routine 01/14/2025 5:41 AM CDT CBC WITH AUTO DIFFERENTIAL Routine 01/14/2025 5:41 AM CDT POCT GLUCOSE DEVICE Routine 01/13/2025 9 :19 PM CDT POCT GLUCOSE DEVICE Routine 01/13/2025 5 :27 PM CDT POCT GLUCOSE DEVICE Routine 01/13/2025 12:13 PM CDT POCT GLUCOSE DEVICE Routine 01/13/2025 8 :05 AM CDT POCT GLUCOSE DEVICE Routine 01/13/2025 2 :[address] ABDOMEN PELVIS W CONTRAST ED 01/12/2025 10:28 PM CDT POCT GLUCOSE DEVICE Routine 01/12/2025 8 :00 PM CDT URINALYSIS AND REFLEX TO MICROSCOPIC AND CULTURE STAT 01/12/2025 7:56 PM CDT EGFR STAT 01/12/2025 4:53 PM CDT DIFFERENTIAL AUTO STAT 01/12/2025 4:5 3 PM CDT LIPASE STAT 01/12/2025 4:53 PM CDT COMPREHENSIVE METABOLIC PANEL STAT 01/12/2025 4:53 PM CDT CBC WITH AUTO DIFFERENTIAL STAT 01/12/2025 4:53 PM CDT POCT GLUCOSE Routine 01/06/2025 8:52 AM CDT Type 2 diabetes mellitus with other specified complication, without long-term current use of insulin (HCC) DEVICE CHECK - REMOTE Routine 12/14/2024 2:58 AM CDT POCT GLUCOSE DEVICE Routine 12/10/2024 8 :15 AM CDT EGFR Routine 12/10/2024 5:11 AM CDT CBC WITHOUT DIFFERENTIAL Routine 12/10/2024 5:11 AM CDT BASIC METABOLIC PANEL Routine 12/10/2024 5:11 AM CDT POCT GLUCOSE DEVICE Routine 12/09/2024 8 :11 PM CDT URINALYSIS AND REFLEX TO MICROSCOPIC AND CULTURE Routine 12/09/2024 6:52 PM CDT POCT GLUCOSE DEVICE Routine 12/09/2024 4 :40 PM CDT POCT GLUCOSE DEVICE Routine 12/09/2024 11:29 AM CDT HEMOGLOBIN AND HEMATOCRIT Routine 12/09/2024 11:24 AM CDT POCT GLUCOSE DEVICE Routine 12/09/2024 9 :09 AM CDT POCT GLUCOSE DEVICE Routine 12/09/2024 6 :16 AM CDT LACTATE STAT 12/09/2024 6:01 AM CDT EGFR STAT 12/09/2024 5:38 AM CDT DIFFERENTIAL AUTO STAT 12/09/2024 5:3 8 AM CDT COMPREHENSIVE METABOLIC PANEL STAT 12/09/2024 5:38 AM CDT CBC WITH AUTO DIFFERENTIAL STAT 12/09/2024 5:38 AM CDT POCT GLUCOSE DEVICE Routine 12/09/2024 4 :54 AM CDT POCT GLUCOSE DEVICE Routine 12/09/2024 4 :[address] ABDOMEN PELVIS W WO CONTRAST ED 12/09/2024 3:04 AM CDT POCT GLUCOSE DEVICE Routine 12/09/2024 2 :41 AM CDT EGFR STAT 12/08/2024 11:02 PM CDT DIFFERENTIAL AUTO STAT 12/08/2024 11:02 PM CDT TYPE AND SCREEN STAT 12/08/2024 11:02 PM CDT CBC WITH AUTO DIFFERENTIAL STAT 12/08/2024 11:02 PM CDT BASIC METABOLIC PANEL STAT 12/08/2024 11:02 PM CDT POCT GLUCOSE DEVICE Routine 12/08/2024 11:01 PM CDT POCT GLUCOSE DEVICE Routine 11/24/2024 7 :48 AM CDT EGFR Routine 11/24/2024 4:17 AM CDT DIFFERENTIAL AUTO Routine 11/24/2024 4:1 7 AM CDT COMPREHENSIVE METABOLIC PANEL Routine 11/24/2024 4:17 AM CDT CBC WITH AUTO DIFFERENTIAL Routine 11/24/2024 4:17 AM CDT POCT GLUCOSE DEVICE Routine 11/23/2024 9 :13 PM CDT POCT GLUCOSE DEVICE Routine 11/23/2024 4 :27 PM CDT POCT GLUCOSE DEVICE Routine 11/23/2024 12:07 PM CDT POCT GLUCOSE DEVICE Routine 11/23/2024 7 :37 AM CDT EGFR Routine 11/23/2024 4:01 AM CDT DIFFERENTIAL AUTO Routine 11/23/2024 4:0 1 AM CDT COMPREHENSIVE METABOLIC PANEL Routine 11/23/2024 4:01 AM CDT CBC WITH AUTO DIFFERENTIAL Routine 11/23/2024 4:01 AM CDT RESPIRATORY PATHOGEN PANEL Routine 11/22/2024 11:01 PM CDT POCT GLUCOSE DEVICE Routine 11/22/2024 8 :35 PM CDT POCT GLUCOSE DEVICE Routine 11/22/2024 4 :25 PM CDT POCT GLUCOSE DEVICE Routine 11/22/2024 1 :08 PM CDT ECG 12-LEAD Routine 11/22/2024 10:08 AM CDT POCT GLUCOSE DEVICE Routine 11/22/2024 8 :54 AM CDT POCT GLUCOSE DEVICE Routine 11/22/2024 4 :24 AM CDT EGFR Routine 11/22/2024 4:21 AM CDT DIFFERENTIAL AUTO Routine 11/22/2024 4:2 1 AM CDT COMPREHENSIVE METABOLIC PANEL Routine 11/22/2024 4:21 AM CDT CBC WITH AUTO DIFFERENTIAL Routine 11/22/2024 4:21 AM CDT POCT GLUCOSE DEVICE Routine 11/22/2024 12:27 AM CDT POCT GLUCOSE DEVICE Routine 11/21/2024 9 :23 PM CDT POCT GLUCOSE DEVICE Routine 11/21/2024 4 :32 PM CDT POCT GLUCOSE DEVICE Routine 11/21/2024 12:21 PM CDT XR ABDOMEN AP 1 VIEW IP Routine 11/21/2024 12:07 PM CDT POCT GLUCOSE DEVICE Routine 11/21/2024 8 :13 AM CDT POCT GLUCOSE DEVICE Routine 11/21/2024 4 :45 AM CDT EGFR Routine 11/21/2024 2:54 AM CDT DIFFERENTIAL AUTO Routine 11/21/2024 2:5 4 AM CDT COMPREHENSIVE METABOLIC PANEL Routine 11/21/2024 2:54 AM CDT CBC WITH AUTO DIFFERENTIAL Routine 11/21/2024 2:54 AM CDT POCT GLUCOSE DEVICE Routine 11/20/2024 11:49 PM CDT POCT GLUCOSE DEVICE Routine 11/20/2024 8 :31 PM CDT POCT GLUCOSE DEVICE Routine 11/20/2024 3 :59 PM CDT POCT GLUCOSE DEVICE Routine 11/20/2024 12:33 PM CDT POCT GLUCOSE DEVICE Routine 11/20/2024 9 :00 AM CDT POCT GLUCOSE DEVICE Routine 11/20/2024 7 :01 AM CDT DIFFERENTIAL AUTO Timed 11/20/2024 6:0 3 AM CDT APTT Timed 11/20/2024 6:03 AM CDT PROTIME-INR Timed 11/20/2024 6:03 AM CDT CBC WITH AUTO DIFFERENTIAL Timed 11/20/2024 6:03 AM CDT POCT GLUCOSE DEVICE Routine 11/20/2024 4 :04 AM CDT POCT GLUCOSE DEVICE Routine 11/19/2024 11:17 PM CDT POCT GLUCOSE DEVICE Routine 11/19/2024 8 :28 PM CDT URINALYSIS AND REFLEX TO MICROSCOPIC AND CULTURE STAT 11/19/2024 6:57 PM CDT LACTATE STAT 11/19/2024 3:[address] ABDOMEN PELVIS W CONTRAST ED Urgent/IP Urgent 11/19/2024 1:51 PM CDT LIPID PANEL STAT 11/19/2024 1:05 PM CDT TSH STAT 11/19/2024 1:05 PM CDT HEMOGLOBIN A1C STAT 11/19/2024 1:05 PM CDT EGFR STAT 11/19/2024 1:05 PM CDT DIFFERENTIAL AUTO STAT 11/19/2024 1:0 5 PM CDT LIPASE STAT 11/19/2024 1:05 PM CDT COMPREHENSIVE METABOLIC PANEL STAT 11/19/2024 1:05 PM CDT CBC WITH AUTO DIFFERENTIAL STAT 11/19/2024 1:05 PM CDT COLONOSCOPY 11/11/2024 11:01 AM CDT HEPATITIS PANEL, ACUTE Routine 07/25/2024 3:22 AM HAND MOLDER AND CASTER ALBUMIN CREATININE RATIO, URINE Routine 02/29/2024 8:27 AM CDT Type 2 diabetes mellitus with microalbuminuria, with long-term current use of insulin (HCC) PSA SCREEN Routine 04/16/2020 7:01 AM CDT Low testosterone in male from Last 3 Months or Most Recently Relevant to Health Maintenance Results * CTA Abdomen (02/05/2025 2:29 PM CDT) Anatomical Region Laterality Modality Abdomen N/A Computed Tomogra phy 02/05/2025 3:3 0 PM CDT Impressions 02/05/2025 4:10 PM CDT [...] it. Electronically signed by: Kolton Dale M.D. Ben Chahla MD PhD IMG CT PROCEDURES Final Result * DEVICE CHECK - REMOTE (01/22/2025 4:09 AM CDT) Anatomical Region Laterality Modality Other 01/22/2025 4:09 AM CDT Narrative 01/28/2025 2:32 PM CDT Interpretation Summary: Battery and Leads (BL) Normal parameters noted on battery and lead(s) --- HUNG Presenting Rhythm (ME) Atrial Pacing-Ventricular Sensing (AP-VS) --- rate 60 Arrhythmic events (AE) No new arrhythmic events in monitoring period Transmission Information (TI) Device Summary Report Provider Only Interpretation (PI) Provider has reviewed and agrees with findings Procedure Note Pebbles Nelson MD - 01/28/2025 Interpretation Summary: Battery and Leads (BL) Normal parameters noted on battery and lead(s) --- HUNG Presenting Rhythm (ME) Atrial Pacing-Ventricular Sensing (AP-VS) --- rate 60 [...] it. Electronically signed by: Benito Whiteside M.D. us Marcos Ray MD IM MRI PROCEDURES Final [...] it. Electronically signed by: Papito Landers M.D. Seng Fischer MD IMG XR PROCEDURES Final R esult * eGFR (01/19/2025 1:32 PM CDT) eGFR 90 >=60 mL/min/1. 73 m2 Comment: [...] WAYNE LAB BLOOD ORDERABLES Final Result [facility] Department [place] [address] * (ABNORMAL) Differential, auto (01/19/2025 1:32 PM CDT) Neutrophil abs 5.13 1.50 - 6.50 K/cumm Comment:Testing performed by : [facility], [address] [place] [address] Lymphocyte abs 0.73(L) 0.80 - 3.30 K/cumm [facility] Comment:Testing performed by : [facility], [address] [place] [address] Monocyte abs 0.60 0.20 - 0.80 K/cumm [facility] Comment:Testing performed by : [facility], [address] [place] [address] Eosinophil abs 0.17 0.00 - 0.50 K/cumm [facility] Comment:Testing performed by : [facility], [address] [place] [address] Basophil abs 0.04 0.00 - 0.10 K/cumm [facility] Comment:Testing performed by : [facility], [address] [place] [phone] Neutrophil pct 76.9 % CERPETAR BJ Comment: Interpretive Data Percent cell count reference ranges are not reported, since discordance with absolute values may lead to misinterpretation of CBC data. Current Interpretive Data was last revised on 2017. Testing performed by: [facility], [address] [place] [phone] Lymphocyte pct 11.0 % CERPETAR VIRGEN Comment: Interpretive Data Percent cell count reference ranges are not reported, since discordance with absolute values may lead to misinterpretation of CBC data. Current Interpretive Data was last revised on 2017. Testing performed by: [facility], [address] [place] [phone] Monocyte pct 9.0 % CERPETAR VIRGEN Comment: Interpretive Data Percent cell count reference ranges are not reported, since discordance with absolute values may lead to misinterpretation of CBC data. Current Interpretive Data was last revised on 2017. Testing performed by: [facility], [address] [place] [phone] Eosinophil pct 2.6 % CERPETAR VIRGEN Comment: Interpretive Data Percent cell count reference ranges are not reported, since discordance with absolute values may lead to misinterpretation of CBC data. Current Interpretive Data was last revised on 2017. Testing performed by: [facility], [address] [place] [phone] Basophil pct 0.5 % CERPETAR VIRGEN Comment: Interpretive Data Percent cell count reference ranges are not reported, since discordance with absolute values may lead to misinterpretation of CBC data. Current Interpretive Data was last revised on 2017. Testing performed by: [facility], [address] [place] [phone] Blood 01/19/2025 1:32 PM CDT 01/19/2025 1:39 PM CDT us Tiffany WAYNE LAB BLOOD ORDERABLES Final Result [facility] Department [place] [address] * Iron profile w/ IBC (01/19/2025 1:32 PM CDT) Iron 96 50 - 150 mcg/dL TIBC 322 250 - 400 mcg/dL DAVID [facility] Transferrin saturation 30 20 - 50 % DAVID VIRGEN Blood 01/19/2025 1:32 PM CDT 01/19/2025 1:42 PM CDT us Ben Chahal MD PhD LAB BLOOD ORDERABLES Fin al Result [facility] Department [place] [address] * (ABNORMAL) CBC with auto differential (01/19/2025 1:32 PM CDT) WBC 6.68 3.80 - 9.90 K/cumm Comment:Testing performed by : [facility], [address] [place] [address] Hgb 11.6(L) 13.0 - 17.5 g/dL DAVID [facility] Comment:Testing performed by : [facility], [address] [place] [address] Hct 36.5(L) 38.9 - 50.3 % DVAID VIRGEN Comment:Testing performed by : [facility], [address] [place] [address] Plt 186 150 - 400 K/cumm DAVID [facility] Comment:Testing performed by : [facility], [address] [place] [address] MPV 7.8 6.8 - 10.4 fL DAVID [facility] Comment:Testing performed by : [facility], [address] [place] [address] RBC 4.57 4.30 - 5.80 M/cumm DAVID VIRGEN Comment:Testing performed by : [facility], [address] [place] [address] MCV 79.9(L) 81.3 - 96.4 fL DAVID VIRGEN Comment:Testing performed by : [facility], [address] [place], [place] [phone] MCH 25.3(L) 27.1 - 33.3 pg CERPETAR [facility] Comment:Testing performed by : [facility], [address] [place], [place] [phone] MCHC 31.7(L) 32.3 - 35.7 g/dL DAVID [facility] Comment:Testing performed by : [facility], [address] [place], [place] [phone] RDW CV 17.5(H) 11.1 - 14.9 % CERPETAR [facility] Comment:Testing performed by : [facility], [address] [place] [address] NRBC abs 0.00 0.00 - 0.01 K/cumm DAVID [facility] Comment:Testing performed by : [facility], [address] [place], [place] [phone] Blood 01/19/2025 1:32 PM CDT 01/19/2025 1:39 PM CDT Tiffany Estrada [employer] LAB BLOOD ORDERABLES Final Result Performing Organization Address City/[facility] Co de Phone Number [facility] Department [place] [address] * Cancer antigen 19-9 (01/19/2025 1:32 PM CDT) CA 19-9 ag 24.3 <=35.0 units/mL Comment: Interpretive Data The Autumn CA 19-9 assay procedure was used. Results from different manufacturers or methods may not be comparable. Serial testing should be performed using the same method. Blood 01/19/2025 1:32 PM CDT 01/19/2025 2:11 PM CDT [employer] LAB BLOOD ORDERABLES Final Result Performing Organization Address [facility]/ZIP Co de Phone Number [facility] Department [place] [address] * Ferritin (01/19/2025 1:32 PM CDT) Pathologist [facility] Ferritin 54 30 - 400 ng/mL Blood 01/19/2025 1:32 PM CDT 01/19/2025 1:42 PM CDT us Bne Chahal MD PhD LAB BLOOD ORDERABLES Fin al Result [facility] Department [place] [address] * (ABNORMAL) Comprehensive metabolic panel (01/19/2025 1:32 PM CDT) [facility] Sodium 140 135 - 145 mmol/L Potassium, pl 4.0 3.3 - 4.9 mmol/L [facility] Chloride 103 97 - 110 mmol/L [facility] CO2 27 22 - 32 mmol/L [facility] Anion gap 10 2 - 15 mmol/L [facility] BUN 25 6 - 25 mg/dL [facility] Creatinine 0.92 0.80 - 1.30 mg/dL [facility] Glucose 184 70 - 199 mg/dL [facility] Comment: Interpretive Data Fasting glucose >/= 126 [...] 2022. Calcium 9.0 8.5 - 10.3 mg/dL [facility] Bilirubin, total 0.2 0.1 - 1.2 mg/dL [facility] Protein, pl 7.2 6.5 - 8.5 g/dL [facility] Albumin 3.9 3.5 - 5.0 g/dL [facility] Alk phos 423(H) 40 - 130 Units/L [facility] ALT 42 7 - 55 Units/L [facility] AST 38 10 - 50 Units/L [facility] Blood 01/19/2025 1:32 PM CDT 01/19/2025 1:42 PM CDT us Tiffany WAYNE LAB BLOOD ORDERABLES Final Result [facility] Department [place] [address] * CT chest without contrast (01/19/2025 1:12 [...] it. Electronically signed by: Hallie Islas M.D. us Ben Chahal MD PhD IMG [...] (ABNORMAL) POCT glucose (01/15/2025 12:30 PM CDT) [facility] Signature Glucose, POC 261(H) 70 - 199 mg/dL Comment: Interpretive Data Glucose is assumed to be non-fasting. Fasting Glucose reference ranges are: 0 - 150 years: 70 mg/dL - 99 mg/dL Current interpretive data was last revised on 2014. POC Performer [id number] [facility] POC Device Number [id number] [facility] Blood 01/15/2025 12:3 0 PM CDT 01/15/2025 12:30 PM CDT Cb Lentz MD LAB POCT ORDERABLES - DEV ICE Final Result Performing Organization Address [facility] Phone Number DAVID PEOPLES [address] [facility] [place] [address] * (ABNORMAL) POCT glucose (01/15/2025 11:49 AM CDT) Glucose, POC 284(H) 70 - 199 mg/dL Comment: Interpretive Data Glucose is assumed to be non-fasting. Fasting Glucose reference ranges are: 0 - 150 years: 70 mg/dL - 99 mg/dL Current interpretive data was last revised on 2014. POC Performer [id number] [employer] POC Device Number [id number] CERNER HipscanW[facility] Glucose comment 1 RN/MD Notified DAVID PEOPLES Blood 01/15/2025 11:4 9 AM CDT 01/15/2025 11:49 AM CDT us Cb Lentz MD LAB POCT ORDERABLES - DEV ICE Final Result Performing Organization Address [facility] de Phone Number DAVID SWEENEYCH [phone] [facility] [place] [address] * POCT glucose (01/15/2025 8:14 AM CDT) Glucose, POC 138 70 - 199 mg/dL Comment: Interpretive Data Glucose is assumed to be non-fasting. Fasting Glucose reference ranges are: 0 - 150 years: 70 mg/dL - 99 mg/dL Current interpretive data was last revised on 2014. POC Performer [id number] [employer] POC Device Number [id number] CERNER PARAMWCH Blood 01/15/2025 8:14 AM CDT 01/15/2025 8:14 AM CDT Cb Lentz MD LAB POCT ORDERABLES - DEV ICE Final Result Performing Organization Address [facility] Co de Phone Number DAVID VIRGENCH [address] [facility] Hospital[facility] [place] [address] * eGFR (01/15/2025 6:07 AM CDT) eGFR [...] 6:07 AM CDT 01/15/2025 6:11 AM CDT bC Lentz MD LAB BLOOD ORDERABLES Tete l Result Performing Organization Address [facility] Co de Phone Number DAVID VIRGENWCH [phone] [employer] Department [employer] [place] [address] * (ABNORMAL) Differential, auto (01/15/2025 6:07 AM CDT) Neutrophil abs 1.98 1.50 - 6.50 K/cumm Imm gran abs 0.01 0.00 - 0.10 K/cumm CERNER BJW[facility] Lymphocyte abs 0.66(L) 0.80 - 3.30 K/cumm CERNER [facility]JW[facility] Monocyte abs 0.67 0.20 - 0.80 K/cumm CERNER BJW[facility] Eosinophil abs 0.18 0.00 - 0.50 K/cumm DAVID [facility] Basophil abs 0.02 0.00 - 0.10 K/cumm [facility] Neutrophil pct 56.2 % [facility] Comment: Interpretive Data Percent cell count reference ranges are not reported, since discordance with absolute values may lead to misinterpretation of CBC data. Current Interpretive Data was last revised on 2017. Imm gran pct 0.3 % [facility] Comment: Interpretive Data Percent cell count reference ranges are not reported, since discordance with absolute values may lead to misinterpretation of CBC data. Current Interpretive Data was last revised on 2017. Lymphocyte pct 18.8 % [facility] Comment: Interpretive Data Percent cell count reference ranges are not reported, since discordance with absolute values may lead to misinterpretation of CBC data. Current Interpretive Data was last revised on 2017. Monocyte pct 19.0 % [facility] Comment: Interpretive Data Percent cell count reference ranges are not reported, since discordance with absolute values may lead to misinterpretation of CBC data. Current Interpretive Data was last revised on 2017. Eosinophil pct 5.1 % [facility] Comment: Interpretive Data Percent cell count reference ranges are not reported, since discordance with absolute values may lead to misinterpretation of CBC data. Current Interpretive Data was last revised on 2017. Basophil pct 0.6 % [facility] Comment: Interpretive Data Percent cell count reference ranges are not reported, since discordance with absolute values may lead to misinterpretation of CBC data. Current Interpretive Data was last revised on 2017. Blood 01/15/2025 6:07 AM CDT 01/15/2025 6:11 AM CDT Cb Lentz MD LAB BLOOD ORDERABLES Tete bennett Result DAVID VIRGENWCH [address] [facility]. [place] [address] * (ABNORMAL) CBC with auto differential (01/15/2025 6:07 AM CDT) Pathologist [facility] WBC 3.52(L) 3.80 - 9.90 K/cumm Hgb 10.9(L) 13.0 - 17.5 g/dL [facility] Hct 35.3(L) 38.9 - 50.3 % [facility] Plt 143(L) 150 - 400 K/cumm [facility] MPV 10.4 9.1 - 12.3 fL [facility] RBC 4.25(L) 4.30 - 5.80 M/cumm [facility] MCV 83.1 81.3 - 96.4 fL [facility] MCH 25.6(L) 27.1 - 33.3 pg [facility] MCHC 30.9(L) 32.3 - 35.7 g/dL [facility] RDW CV 16.4(H) 11.1 - 14.9 % [facility] RDW SD 49.8(H) 35.7 - 48.1 fL [facility] NRBC abs 0.00 0.00 - 0.01 K/cumm [facility] Blood 01/15/2025 6:07 AM CDT 01/15/2025 6:11 AM CDT Cb Lentz MD LAB BLOOD ORDERABLES Tete bennett Result [facility] [address] [facility] Department [place] [employer] [place] [address] * Basic metabolic panel (01/15/2025 6:07 AM CDT) [facility] Sodium 138 135 - 145 mmol/L Potassium, pl 3.7 3.3 - 4.9 mmol/L [facility] Chloride 101 97 - 110 mmol/L [facility] CO2 26 22 - 32 mmol/L [facility] Anion gap 11 2 - 15 mmol/L [facility] BUN 15 6 - 25 mg/dL [facility] Creatinine 0.80 0.80 - 1.30 mg/dL [facility] Glucose 143 70 - 199 mg/dL [facility] Comment: Interpretive Data Fasting glucose >/= 126 [...] 2022. Calcium 8.6 8.5 - 10.3 mg/dL [facility] Blood 01/15/2025 6:07 AM CDT 01/15/2025 6:11 AM CDT us Cb Lentz MD LAB BLOOD ORDERABLES Tete l Result Performing Organization Address [facility] Co de Phone Number [facility] [address] [employer] [address] * (ABNORMAL) POCT glucose (01/14/2025 9:51 PM CDT) [facility] Glucose, POC 226(H) 70 - 199 mg/dL Comment: Interpretive Data Glucose is assumed to be non-fasting. Fasting Glucose reference ranges are: 0 - 150 years: 70 mg/dL - 99 mg/dL Current interpretive data was last revised on 2014. POC Performer [id number] [facility] POC Device Number [id number] [facility] Blood 01/14/2025 9:51 PM CDT 01/14/2025 9:51 PM CDT Cb Lentz MD LAB POCT ORDERABLES - DEV ICE Final Result Performing Organization Address [facility]/ZIP Co de Phone Number [facility] [address] [employer] [address] * POCT glucose (01/14/2025 5:03 PM CDT) Pathologist [facility] Glucose, POC 137 70 - 199 mg/dL Comment: Interpretive Data Glucose is assumed to be non-fasting. Fasting Glucose reference ranges are: 0 - 150 years: 70 mg/dL - 99 mg/dL Current interpretive data was last revised on 2014. POC Performer [id number] DAVID PEOPLES POC Device Number [id number] [facility] Blood 01/14/2025 5:03 PM CDT 01/14/2025 5:03 PM CDT Cb Lentz MD LAB POCT ORDERABLES - DEV ICE Final Result DAVID [facility] [address] [address] [employer] [place], [place] [id number] * Infection Prevention Foreign auris PCR, surveillance Axilla/Groin (01/14/2025 12:16 PM CDT) [facility] Foreign auris DNA Not Detected Not Detected [facility] Comment: Interpretive Data Testing performed by [facility] using the Autumn simon 6800 Foreign auris assay. This assay detects DNA from Foreign auris using Real-Time PCR. This assay is laboratory developed and is not cleared by the [employer] Food and Drug Administration. The performance characteristics have been verified by the [facility]. Testing performed by: [facility], [address] [place]., [address] Axilla/Groin 01/14/2025 12:1 6 PM CDT 01/14/2025 3:47 PM CDT Narrative DAVID SWEENEYCH - 01/14/2025 10:26 PM CDT Order placed by [facility] due to ring surveillance. us Instant Order Generic Provider LAB MICROBIOLOGY - GENERAL ORDERABLES Final Result Performing Organization Address City/[facility]/ZIP Co de Phone Number DAVID VIRGENCH [address] [address] [facility] [employer] [place], [place] [phone] [facility] * POCT glucose (01/14/2025 11:26 AM CDT) Glucose, POC 156 70 - 199 mg/dL Comment: Interpretive Data Glucose is assumed to be non-fasting. Fasting Glucose reference ranges are: 0 - 150 years: 70 mg/dL - 99 mg/dL Current interpretive data was last revised on 2014. POC Performer [id number] DAVID [facility] POC Device Number [id number] [facility] Blood 01/14/2025 11:2 6 AM CDT 01/14/2025 11:26 AM CDT us Cb Lentz MD LAB POCT ORDERABLES - DEV ICE Final Result Performing Organization Address [facility] de Phone Number DAVID [facility] [address] [facility] [employer] [place], [place] [id number] * POCT glucose (01/14/2025 7:55 AM CDT) Glucose, POC 147 70 - 199 mg/dL Comment: Interpretive Data Glucose is assumed to be non-fasting. Fasting Glucose reference ranges are: 0 - 150 years: 70 mg/dL - 99 mg/dL Current interpretive data was last revised on 2014. POC Performer [id number] DAVID [facility] POC Device Number [id number] [facility] Blood 01/14/2025 7:55 AM CDT 01/14/2025 7:55 AM CDT us Cb Lentz MD LAB POCT ORDERABLES - DEV ICE Final Result Performing Organization Address [facility] Co de Phone Number DAVID [facility] [address] [facility] [employer] [place], [place] [id number] * eGFR (01/14/2025 5:41 AM CDT) eGFR >90 >=60 mL/min/1. 73 [...] MD LAB BLOOD NII SOTO Final Result [facility] [address] [facility]. Department of Laboratories [place], [place] [phone] * (ABNORMAL) Differential, auto (01/14/2025 5:41 AM CDT) Pathologist [facility] Neutrophil abs 3.83 1.50 - 6.50 K/cumm [...] 2017. Imm gran pct 0.4 % DAVID PEOPLES Comment: Interpretive Data Percent cell count reference ranges are not reported, since discordance with absolute values may lead to misinterpretation of CBC data. Current Interpretive Data was last revised on 2017. Lymphocyte pct 11.7 % DAVID PEOPLES Comment: Interpretive Data Percent cell count reference ranges are not reported, since discordance with absolute values may lead to misinterpretation of CBC data. Current Interpretive Data was last revised on 2017. Monocyte pct 11.5 % DAVID PEOPLES Comment: Interpretive Data Percent cell count reference ranges are not reported, since discordance with absolute values may lead to misinterpretation of CBC data. Current Interpretive Data was last revised on 2017. Eosinophil pct 3.8 % DAVID PEOPLES Comment: Interpretive Data Percent cell count reference ranges are not reported, since discordance with absolute values may lead to misinterpretation of CBC data. Current Interpretive Data was last revised on 2017. Basophil pct 0.6 % DAVID PEOPLES Comment: Interpretive Data Percent cell count reference ranges are not reported, since discordance with absolute values may lead to misinterpretation of CBC data. Current Interpretive Data was last revised on 2017. Blood 01/14/2025 5:41 AM CDT 01/14/2025 5:57 AM CDT Andreina Shields MD LAB BLOOD ORDJuliette SOTO Final Result DAVID VIRGENCH [address] [facility]. [place] [address] * (ABNORMAL) CBC with auto differential (01/14/2025 5:41 AM CDT) Pathologist [facility] WBC 5.31 3.80 - 9.90 K/cumm Hgb 11.4(L) 13.0 - 17.5 g/dL DAVID PEOPLES Hct 37.2(L) 38.9 - 50.3 % [facility] Plt 141(L) 150 - 400 K/cumm [facility] MPV 9.8 9.1 - 12.3 fL [facility] RBC 4.38 4.30 - 5.80 M/cumm [facility] MCV 84.9 81.3 - 96.4 fL [facility] MCH 26.0(L) 27.1 - 33.3 pg [facility] MCHC 30.6(L) 32.3 - 35.7 g/dL [facility] RDW CV 16.6(H) 11.1 - 14.9 % [facility] RDW SD 51.8(H) 35.7 - 48.1 fL [facility] NRBC abs 0.00 0.00 - 0.01 K/cumm [facility] Blood 01/14/2025 5:41 AM CDT 01/14/2025 5:57 AM CDT Andreina Shields MD LAB BLOOD PABLO CHARLES Final Result [facility] [address] [facility]. [place] [address] * Basic metabolic panel (01/14/2025 5:41 AM CDT) Sodium 139 135 - 145 mmol/L Potassium, pl 4.2 3.3 - 4.9 mmol/L [facility] Chloride 105 97 - 110 mmol/L [facility] CO2 27 22 - 32 mmol/L [facility] Anion gap 7 2 - 15 mmol/L [facility] BUN 15 6 - 25 mg/dL [facility] Creatinine 0.80 0.80 - 1.30 mg/dL [facility] Glucose 169 70 - 199 mg/dL [facility] Comment: Interpretive Data Fasting glucose >/= 126 [...] 2022. Calcium 8.8 8.5 - 10.3 mg/dL DAVID PEOPLES Blood 01/14/2025 5:41 AM CDT 01/14/2025 5:57 AM CDT Andreina Shields MD LAB BLOOD ORDE RABLES Final Result Performing Organization Address [facility] Co de Phone Number DAVID VIRGENCH [address] [facility] [employer] [place], [place] [phone] * POCT glucose (01/13/2025 9:19 PM CDT) Glucose, POC 198 70 - 199 mg/dL Comment: Interpretive Data Glucose is assumed to be non-fasting. Fasting Glucose reference ranges are: 0 - 150 years: 70 mg/dL - 99 mg/dL Current interpretive data was last revised on 2014. POC Performer [id number] [employer] POC Device Number [id number] DAVID VIRGENBom[facility] Blood 01/13/2025 9:19 PM CDT 01/13/2025 9:19 PM CDT Andreina Shields MD LAB POCT ORDER JOSE LUIS - DEVICE Final Result Performing Organization Address [facility] de Phone Number DAVID VIRGENWCH [address] [facility] [address] * POCT glucose (01/13/2025 5:27 PM CDT) Glucose, POC 90 70 - 199 mg/dL Comment: Interpretive Data Glucose is assumed to be non-fasting. Fasting Glucose reference ranges are: 0 - 150 years: 70 mg/dL - 99 mg/dL Current interpretive data was last revised on 2014. POC Performer [id number] [employer] POC Device Number [id number] [facility] Blood 01/13/2025 5:27 PM CDT 01/13/2025 5:27 PM CDT Andreina Shields MD LAB POCT ORDER JOSE LUIS - DEVICE Final Result Performing Organization Address [facility] Phone Number DAVID SWEENEYCH [address] [place] [address] * (ABNORMAL) POCT glucose (01/13/2025 12:13 PM CDT) Glucose, POC 222(H) 70 - 199 mg/dL Comment: Interpretive Data Glucose is assumed to be non-fasting. Fasting Glucose reference ranges are: 0 - 150 years: 70 mg/dL - 99 mg/dL Current interpretive data was last revised on 2014. POC Performer [id number] KRISTENLumora POC Device Number [id number] [facility] Blood 01/13/2025 12:1 3 PM CDT 01/13/2025 12:13 PM CDT Andreina Shields MD LAB POCT ORDER JOSE LUIS - DEVICE Final Result Performing Organization Address [facility] Phone Number DAVID SWEENEYCH [address] [place] [address] * POCT glucose (01/13/2025 8:05 AM CDT) Glucose, POC 109 70 - 199 mg/dL Comment: Interpretive Data Glucose is assumed to be non-fasting. Fasting Glucose reference ranges are: 0 - 150 years: 70 mg/dL - 99 mg/dL Current interpretive data was last revised on 2014. POC Performer [id number] KRISTENLumora POC Device Number [id number] DAVID PEOPLES Blood 01/13/2025 8:05 AM CDT 01/13/2025 8:05 AM CDT Andreina Shields MD LAB POCT ORDER JOSE LUIS - DEVICE Final Result Performing Organization Address [facility] de Phone Number DAVID BJW[facility] [address] [facility] [place] [address] * POCT glucose (01/13/2025 2:00 AM CDT) [facility] Glucose, POC 109 70 - 199 mg/dL Comment: Interpretive Data Glucose is assumed to be non-fasting. Fasting Glucose reference ranges are: 0 - 150 years: 70 mg/dL - 99 mg/dL Current interpretive data was last revised on 2014. POC Performer [id number] DAVID BJW[facility] POC Device Number [id number] [facility]ID [facility] Blood 01/13/2025 2:00 AM CDT 01/13/2025 2:00 AM CDT Mary Lagunas MD LAB POCT ORDERABLES - DEVIC E Final Result Performing Organization Address [facility] de Phone Number DAVID [facility] [address] [facility] Department [place] [address] * CT Abdomen Pelvis W Contrast (01/12/2025 [...] it. Electronically signed by: Shabbir Jett M.D. Chaz Hernandez MD IMG CT PROCEDURES Final Result * POCT glucose (01/12/2025 8:00 PM CDT) Glucose, POC 164 70 - 199 mg/dL Comment: Interpretive Data Glucose is assumed to be non-fasting. Fasting Glucose reference ranges are: 0 - 150 years: 70 mg/dL - 99 mg/dL Current interpretive data was last revised on 2014. POC Performer [id number] DAVID SWEENEY POC Device Number [id number] [facility] Blood 01/12/2025 8:00 PM CDT 01/12/2025 8:00 PM CDT Notinfile Unknown LAB POCT ORDERABLES - DEVICE F inal Result [facility] HipscanCH [id number] [facility]. Department [place] [employer] [place] [address] * Urinalysis reflex to microscopic and culture Urine (01/12/2025 7:56 PM CDT) Color, ur Straw Yellow Clarity, ur Clear Clear CERNER [facility] Specific gravity, ur 1.017 1.003 - 1.030 CERNER [facility] pH, urine 6.0 CERPETAR BJ[facility] Comment: Interpretive Data U rine pH is affected by diet, medications, systemic acid-base disturbances, and renal tubular function. pH may affect urinary stone formation. For example, urine pH below 6.0 may help reduce the tendency for calcium phosphate stones and pH greater than 6.0 may reduce the tendency for uric acid stone formation. Source: [employer] Current Interpretive Data was last revised on [...] and culture not met. CERPETAR [facility] Urine 01/12/2025 7:56 PM CDT 01/12/2025 7:59 PM CDT Chaz Hernandez MD LAB MICROBIOLOGY - GENERAL ORD ERABLES Final Result Performing Organization Address City/[facility]/ZIP Co de Phone Number DAVID SWEENEYCH [address] [facility] [place] [address] * eGFR (01/12/2025 4:53 PM CDT) eGFR [...] LAB BLOOD ORDERABLES Final Res ult [facility] [address] [facility]. [place] [address] * Differential, auto (01/12/2025 4:53 PM CDT) Neutrophil abs 4.51 1.50 - 6.50 K/cumm Imm gran abs 0.02 0.00 - 0.10 K/cumm CERNER [facility] Lymphocyte abs 0.82 0.80 - 3.30 K/cumm [facility] Monocyte abs 0.52 0.20 - 0.80 K/cumm CERNER [facility] Eosinophil abs 0.17 0.00 - 0.50 K/cumm CERNER [facility] Basophil abs 0.03 0.00 - 0.10 K/cumm CERNER [facility] Neutrophil pct 74.3 % [facility] Comment: Interpretive Data Percent cell count reference ranges are not reported, since discordance with absolute values may lead to misinterpretation of CBC data. Current Interpretive Data was last revised on 2017. Imm gran pct 0.3 % [facility] Comment: Interpretive Data Percent cell count reference ranges are not reported, since discordance with absolute values may lead to misinterpretation of CBC data. Current Interpretive Data was last revised on 2017. Lymphocyte pct 13.5 % [facility] Comment: Interpretive Data Percent cell count reference ranges are not reported, since discordance with absolute values may lead to misinterpretation of CBC data. Current Interpretive Data was last revised on 2017. Monocyte pct 8.6 % [facility] Comment: Interpretive Data Percent cell count reference ranges are not reported, since discordance with absolute values may lead to misinterpretation of CBC data. Current Interpretive Data was last revised on 2017. Eosinophil pct 2.8 % [facility] Comment: Interpretive Data Percent cell count reference ranges are not reported, since discordance with absolute values may lead to misinterpretation of CBC data. Current Interpretive Data was last revised on 2017. Basophil pct 0.5 % [facility] Comment: Interpretive Data Percent cell count reference ranges are not reported, since discordance with absolute values may lead to misinterpretation of CBC data. Current Interpretive Data was last revised on 2017. Blood 01/12/2025 4:53 PM CDT 01/12/2025 5:08 PM CDT Chaz Hernandez MD LAB BLOOD ORDERABLES Final Res ult DAVID PEOPLES [address] [address] Department [place] [employer] [place] [address] * (ABNORMAL) CBC with auto differential (01/12/2025 4:53 PM CDT) Pathologist [facility] WBC 6.07 3.80 - 9.90 K/cumm Hgb 10.9(L) 13.0 - 17.5 g/dL CERNER [facility] Hct 34.7(L) 38.9 - 50.3 % [facility] Plt 201 150 - 400 K/cumm [facility] MPV 10.5 9.1 - 12.3 fL [facility] RBC 4.17(L) 4.30 - 5.80 M/cumm [facility] MCV 83.2 81.3 - 96.4 fL CERNER [facility] MCH 26.1(L) 27.1 - 33.3 pg CERNER [facility] MCHC 31.4(L) 32.3 - 35.7 g/dL CERNER [facility] RDW CV 16.9(H) 11.1 - 14.9 % [facility] RDW SD 50.7(H) 35.7 - 48.1 fL [facility] NRBC abs 0.00 0.00 - 0.01 K/cumm [facility] Blood Venous blood specimen / Unknown 01/12/2025 4:53 PM CDT 01/12/2025 5:08 PM CDT Chaz Hernandez MD LAB BLOOD ORDERABLES Final Res ult DAVID PEOPLES [address] [address] Department [place] [employer] [place] [address] * (ABNORMAL) Lipase (01/12/2025 4:53 PM CDT) Lipase 5(L) 10 - 99 Units/L Blood Venous blood specimen / Unknown 01/12/2025 4:53 PM CDT 01/12/2025 5:08 PM CDT Chaz Hernandez MD LAB BLOOD ORDERABLES Final Res ult [facility] [address] [facility]. [place] [address] * (ABNORMAL) Comprehensive metabolic panel (01/12/2025 4:53 PM CDT) Sodium 136 135 - 145 mmol/L Potassium, pl 4.4 3.3 - 4.9 mmol/L CERNER [facility] Chloride 104 97 - 110 mmol/L CERNER [facility] CO2 22 22 - 32 mmol/L CERNER [facility] Anion gap 11 2 - 15 mmol/L CERNER [facility] BUN 21 6 - 25 mg/dL CERNER [...] phos 408(H) 40 - 130 Units/L CERNER PARAMCH ALT 56(H) 7 - 55 Units/L KRISTENNER BJWCH AST 50 10 - 50 Units/L [facility]PETAR [facility] Blood 01/12/2025 4:53 PM CDT 01/12/2025 5:08 PM CDT Chaz Hernandez MD LAB BLOOD ORDERABLES Final Res ult DAVID SWEENEYCH [address] [facility]. [place] [address] * POCT glucose (01/06/2025 8:52 AM CDT) [facility] Glucose Blood, POC 205 Normal Fasting 70 [...] battery and lead(s) --- HUNG Presenting Rhythm (ME) Atrial Pacing-Ventricular Sensing (AP-VS) --- rate 60 Arrhythmic events (AE) Nonsustained SVT event(s) identified Transmission Information (TI) Device Summary Report Procedure Note Pebbles Nelson MD - 12/22/2024 Interpretation Summary: Battery and Leads (BL) Normal parameters noted on battery and lead(s) --- HUNG Presenting Rhythm (ME) Atrial Pacing-Ventricular Sensing (AP-VS) --- rate 60 Arrhythmic events (AE) Nonsustained SVT event(s) identified Transmission Information (TI) Device Summary Report us Pebbles Nelson MD CV CARDIAC SERVICES PROCEDURES Final Result * POCT glucose (12/10/2024 8:15 AM CDT) Glucose, POC 119 70 - 199 mg/dL Comment: Interpretive Data Glucose is assumed to be non-fasting. Fasting Glucose reference ranges are: 0 - 150 years: 70 mg/dL - 99 mg/dL Current interpretive data was last revised on 2014. POC Performer [id number] DAVID [facility] POC Device Number [id number] DAVID PARAMWCH Blood 12/10/2024 8:15 AM CDT 12/10/2024 8:15 AM CDT Madelyn Agosto MD LAB POCT ORDERABLES - DEV ICE Final Result [facility] [address] [facility]. Department [place] [employer] [place] [address] * eGFR (12/10/2024 5:11 AM CDT) eGFR >90 >=60 mL/min/1. 73 [...] LAB BLOOD ORDERABLES Final Resu lt DAVID PEOPLES [address] [facility] [place] [address] * (ABNORMAL) CBC without differential (12/10/2024 5:11 AM CDT) WBC 4.82 3.80 - 9.90 K/cumm Hgb 10.5(L) 13.0 - 17.5 g/dL [facility] Hct 33.7(L) 38.9 - 50.3 % [facility] Plt 164 150 - 400 K/cumm [facility] MPV 10.2 9.1 - 12.3 fL [facility] RBC 4.09(L) 4.30 - 5.80 M/cumm [facility] MCV 82.4 81.3 - 96.4 fL [facility] MCH 25.7(L) 27.1 - 33.3 pg [facility] MCHC 31.2(L) 32.3 - 35.7 g/dL [facility] RDW CV 18.0(H) 11.1 - 14.9 % [facility] RDW SD 54.1(H) 35.7 - 48.1 fL [facility] NRBC abs 0.00 0.00 - 0.01 K/cumm [facility] Blood 12/10/2024 5:11 AM CDT 12/10/2024 5:14 AM CDT Walyon Kramer NP LAB BLOOD ORDERABLES Final Resu lt DAVID PEOPLES [address] [facility] [employer] [place], [place] [id number] * (ABNORMAL) Basic metabolic panel (12/10/2024 5:11 AM CDT) Pathologist [facility] Sodium 140 135 - 145 mmol/L Potassium, pl 4.2 3.3 - 4.9 mmol/L [facility] Chloride 106 97 - 110 mmol/L [facility] CO2 22 22 - 32 mmol/L [facility] Anion gap 12 2 - 15 mmol/L [facility] BUN 20 6 - 25 mg/dL [facility] Creatinine 0.70(L) 0.80 - 1.30 mg/dL [facility] Glucose 138 70 - 199 mg/dL [facility] Comment: Interpretive Data Fasting glucose >/= 126 [...] 2022. Calcium 8.6 8.5 - 10.3 mg/dL [facility] Blood 12/10/2024 5:11 AM CDT 12/10/2024 5:14 AM CDT Waylon Kramer NP LAB BLOOD ORDERABLES Final Resu lt [facility] [address] [facility] Department [place] [address] * (ABNORMAL) POCT glucose (12/09/2024 8:11 PM CDT) [facility] Signature Glucose, POC 324(H) 70 - 199 mg/dL Comment: Interpretive Data Glucose is assumed to be non-fasting. Fasting Glucose reference ranges are: 0 - 150 years: 70 mg/dL - 99 mg/dL Current interpretive data was last revised on 2014. POC Performer [id number] [facility] POC Device Number [id number] [facility] Blood 12/09/2024 8:11 PM CDT 12/09/2024 8:11 PM CDT us Madelyn Agosto MD LAB POCT ORDERABLES - DEV ICE Final Result Performing Organization Address [facility]/ZIP Co de Phone Number DAVID SWEENEYCH [address] [facility]. [place] [address] * Urinalysis reflex to microscopic and culture Urine (12/09/2024 6:52 PM CDT) Color, ur Straw Yellow Clarity, ur Clear Clear CERNER [facility] Specific gravity, ur 1.019 1.003 - 1.030 CERNER [facility] pH, urine 5.5 CERNER [facility] Comment: Interpretive Data U rine pH is affected by diet, medications, systemic acid-base disturbances, and renal tubular function. pH may affect urinary stone formation. For example, urine pH below 6.0 may help reduce the tendency for calcium phosphate stones and pH greater than 6.0 may reduce the tendency for uric acid stone formation. Source: [facility] Current Interpretive Data was last revised on [...] and culture not met. CERNER [facility] Urine 12/09/2024 6:52 PM CDT 12/09/2024 7:02 PM CDT Waylon Kramer NP LAB MICROBIOLOGY - GENERAL ORDE CHARLES Final Result Performing Organization Address [facility] Co de Phone Number DAVID VIRGENWCH [address] [address]. [place] [address] * POCT glucose (12/09/2024 4:40 PM CDT) Glucose, POC 129 70 - 199 mg/dL Comment: Interpretive Data Glucose is assumed to be non-fasting. Fasting Glucose reference ranges are: 0 - 150 years: 70 mg/dL - 99 mg/dL Current interpretive data was last revised on 2014. POC Performer [id number] [facility] POC Device Number [id number] [facility] Blood 12/09/2024 4:40 PM CDT 12/09/2024 4:40 PM CDT Madelyn Agosto MD LAB POCT ORDERABLES - DEV ICE Final Result Performing Organization Address [facility] de Phone Number [facility] [address] [address] [address] * POCT glucose (12/09/2024 11:29 AM CDT) Glucose, POC 92 70 - 199 mg/dL Comment: Interpretive Data Glucose is assumed to be non-fasting. Fasting Glucose reference ranges are: 0 - 150 years: 70 mg/dL - 99 mg/dL Current interpretive data was last revised on 2014. POC Performer [id number] [facility] POC Device Number [id number] [facility] Blood 12/09/2024 11:2 9 AM CDT 12/09/2024 11:29 AM CDT Madelyn Agosto MD LAB POCT ORDERABLES - DEV ICE Final Result Performing Organization Address [facility] Co de Phone Number DAVID VIRGENCH [address] [facility] [employer] [place] [address] * (ABNORMAL) Hemoglobin and hematocrit (12/09/2024 11:24 AM CDT) Pathologist [facility] Hgb 10.9(L) 13.0 - 17.5 g/dL Hct 35.1(L) 38.9 - 50.3 % [facility] Blood 12/09/2024 11:2 4 AM CDT 12/09/2024 11:47 AM CDT us Waylon Kramer [employer] LAB BLOOD ORDERABLES Final Resu lt Performing Organization Address [facility] Co de Phone Number DAVID VIRGENCH [address] [facility] [employer] [place] [address] * POCT glucose (12/09/2024 9:09 AM CDT) Glucose, POC 81 70 - 199 mg/dL Comment: Interpretive Data Glucose is assumed to be non-fasting. Fasting Glucose reference ranges are: 0 - 150 years: 70 mg/dL - 99 mg/dL Current interpretive data was last revised on 2014. POC Performer [id number] [employer] POC Device Number [id number] [facility] Blood 12/09/2024 9:09 AM CDT 12/09/2024 9:09 AM CDT Madelyn Agosto MD LAB POCT ORDERABLES - DEV ICE Final Result Performing Organization Address [facility] Co de Phone Number DAVID VIRGENWCH [address] [facility] [employer] [place] [address] * POCT glucose (12/09/2024 6:16 AM CDT) Glucose, POC 130 70 - 199 mg/dL Comment: Interpretive Data Glucose is assumed to be non-fasting. Fasting Glucose reference ranges are: 0 - 150 years: 70 mg/dL - 99 mg/dL Current interpretive data was last revised on 2014. POC Performer [id number] [employer] POC Device Number [id number] CERNER [employer] Blood 12/09/2024 6:16 AM CDT 12/09/2024 6:16 AM CDT us Notinfile Unknown LAB POCT ORDERABLES - DEVICE F inal Result Performing Organization Address City/[facility] Co de Phone Number DAVID VIRGENWCH [address] [employer] [facility] [place] [address] * Lactate (12/09/2024 6:01 AM CDT) Lactate 1.1 0.7 - 2.0 mmol/L Blood 12/09/2024 6:01 AM CDT 12/09/2024 6:06 AM CDT Marcie Stewart NP LAB BLOOD ORDERABLES Final Resul t Performing Organization Address [facility] de Phone Number DAVID VIRGENWCH [address] [employer] [facility] [place] [address] * eGFR (12/09/2024 5:38 AM CDT) eGFR >90 >=60 mL/min/1. 73 [...] CDT 12/09/2024 5:40 AM CDT Marcie Stewart [employer] LAB BLOOD ORDERABLES Final Resul t Performing Organization Address [facility] Co de Phone Number DAVID PEOPLES [address] [address] Department [place] [address] * Differential, auto (12/09/2024 5:38 AM CDT) Neutrophil abs 4.85 1.50 - 6.50 K/cumm Imm gran abs 0.04 0.00 - 0.10 K/cumm CERNER [facility] Lymphocyte abs 0.91 0.80 - 3.30 K/cumm CERNER [facility] Monocyte abs 0.68 0.20 - 0.80 K/cumm CERNER [facility] Eosinophil abs 0.20 0.00 - 0.50 K/cumm CERNER [facility] Basophil abs 0.03 0.00 - 0.10 K/cumm CERNER [facility] Neutrophil pct 72.3 % DAVID SWEENEY Comment: Interpretive Data Percent cell count reference ranges are not reported, since discordance with absolute values may lead to misinterpretation of CBC data. Current Interpretive Data was last revised on 2017. Imm gran pct 0.6 % DAVID PEOPLES Comment: Interpretive Data Percent cell count reference ranges are not reported, since discordance with absolute values may lead to misinterpretation of CBC data. Current Interpretive Data was last revised on 2017. Lymphocyte pct 13.6 % DAVID PEOPLES Comment: Interpretive Data Percent cell count reference ranges are not reported, since discordance with absolute values may lead to misinterpretation of CBC data. Current Interpretive Data was last revised on 2017. Monocyte pct 10.1 % DAVID PEOPLES Comment: Interpretive Data Percent cell count reference ranges are not reported, since discordance with absolute values may lead to misinterpretation of CBC data. Current Interpretive Data was last revised on 2017. Eosinophil pct 3.0 % DAVID PEOPLES Comment: Interpretive Data Percent [...] CDT 12/09/2024 5:40 AM CDT Marcie Stewart LAB BLOOD ORDERABLES Final Resul t DAVID PEOPLES [address] [address] Department [place] [employer] [place] [address] * (ABNORMAL) CBC with auto differential (12/09/2024 5:38 AM CDT) Pathologist [facility] WBC 6.71 3.80 - 9.90 K/cumm Hgb 10.2(L) 13.0 - 17.5 g/dL [facility] Hct 33.1(L) 38.9 - 50.3 % [facility] Plt 182 150 - 400 K/cumm [facility] MPV 10.4 9.1 - 12.3 fL [facility] RBC 4.00(L) 4.30 - 5.80 M/cumm [facility] MCV 82.8 81.3 - 96.4 fL [facility] MCH 25.5(L) 27.1 - 33.3 pg [facility] MCHC 30.8(L) 32.3 - 35.7 g/dL [facility] RDW CV 18.2(H) 11.1 - 14.9 % [facility] RDW SD 54.7(H) 35.7 - 48.1 fL [facility] NRBC abs 0.00 0.00 - 0.01 K/cumm [facility] Blood Venous blood specimen / Unknown 12/09/2024 5:38 AM CDT 12/09/2024 5:40 AM CDT Marcie Stewart LAB BLOOD ORDERABLES Final Resul t DAVID PEOPLES [address] [address] Department [place] [employer] [place] [address] * (ABNORMAL) Comprehensive metabolic panel (12/09/2024 5:38 AM CDT) Sodium 140 135 - 145 mmol/L Potassium, pl 3.9 3.3 - 4.9 mmol/L CERNER [facility] Chloride 107 97 - 110 mmol/L CERNER [facility] CO2 20(L) 22 - 32 mmol/L CERNER [facility] Anion gap 13 2 - 15 mmol/L CERNER [facility] BUN 25 6 - 25 mg/dL CERNER [facility] Creatinine 0.60(L) 0.80 - 1.30 mg/dL CERNER [facility] Glucose 150 70 - 199 mg/dL CERNER [facility] Comment: [...] - 1.2 mg/dL CERNER [facility] Protein, pl 6.0(L) 6.5 - 8.5 g/dL CERNER [facility] Albumin 3.7 3.5 - 5.0 g/dL CERNER [facility] Alk phos 380(H) 40 - 130 Units/L CERNER [facility] ALT 38 7 - 55 Units/L CERNER [facility] AST 35 10 - 50 Units/L CERNER [facility] Blood 12/09/2024 5:38 AM CDT 12/09/2024 5:40 AM CDT Marcie Stewart NP LAB BLOOD ORDERABLES Final Resul t DAVID SWEENEY [address] [facility]. [place] [address] * POCT glucose (12/09/2024 4:54 AM CDT) Glucose, POC 148 70 - 199 mg/dL Comment: Interpretive Data Glucose is assumed to be non-fasting. Fasting Glucose reference ranges are: 0 - 150 years: 70 mg/dL - 99 mg/dL Current interpretive data was last revised on 2014. POC Performer [id number] [facility] POC Device Number [id number] [facility] Blood 12/09/2024 4:54 AM CDT 12/09/2024 4:54 AM CDT us Notinfile Unknown LAB POCT ORDERABLES - DEVICE F inal Result Performing Organization Address [facility] de Phone Number [facility] [address] [facility] [employer] [place], [place] [id number] * POCT glucose (12/09/2024 4:13 AM CDT) Glucose, POC 81 70 - 199 mg/dL Comment: Interpretive Data Glucose is assumed to be non-fasting. Fasting Glucose reference ranges are: 0 - 150 years: 70 mg/dL - 99 mg/dL Current interpretive data was last revised on 2014. POC Performer [id number] [facility] POC Device Number [id number] [facility] Blood 12/09/2024 4:13 AM CDT 12/09/2024 4:13 AM CDT us Notinfile Unknown LAB POCT ORDERABLES - DEVICE F inal Result Performing Organization Address [facility] Co de Phone Number [facility] [address] [facility] [employer] [place], [place] [id number] * CT Abdomen Pelvis W WO Contrast [...] urinalysis. Preliminary findings were provided by teleradiology telephone maintenance mechanic Dr. Fabienne Schuler. Dictated by: Selene Levi [...] urinalysis. Preliminary findings were provided by teleradiology telephone maintenance mechanic Dr. Fabienne Schuler. Dictated by: Selene Levi MD, PhD. The radiology attending physician has personally reviewed this study, and had reviewed and/or edited this written report and agrees with it. Electronically signed by: Shabbir Jett M.D. Marcie Stewart NP [facility] CT PROCEDURES Final Result * POCT glucose (12/09/2024 2:41 AM CDT) [facility] Signature Glucose, POC 89 70 - 199 mg/dL Comment: Interpretive Data Glucose is assumed to be non-fasting. Fasting Glucose reference ranges are: 0 - 150 years: 70 mg/dL - 99 mg/dL Current interpretive data was last revised on 2014. POC Performer [id number] [facility] POC Device Number [id number] [facility] Blood 12/09/2024 2:41 AM CDT 12/09/2024 2:41 AM CDT us Notinfile Unknown LAB POCT ORDERABLES - DEVICE F inal Result Performing Organization Address [facility]/ZIP Co de Phone Number DAVID VIRGENCH [address] [facility] Department [employer] [place] [address] * eGFR (12/08/2024 11:02 PM CDT) eGFR >90 >=60 mL/min/1. 73 [...] BLOOD ORDERABLES Final Result Performing Organization Address City/[facility]/ZIP Co de Phone Number DAVID VIRGENCH [address] [facility] Department [place] [employer] [place] [address] * Differential, auto (12/08/2024 11:02 PM CDT) Neutrophil abs 4.56 1.50 - 6.50 K/cumm Imm gran abs 0.02 0.00 - 0.10 K/cumm [facility] Lymphocyte abs 0.97 0.80 - 3.30 K/cumm [facility] Monocyte abs 0.67 0.20 - 0.80 K/cumm [facility] Eosinophil abs 0.22 0.00 - 0.50 K/cumm [facility] Basophil abs 0.03 0.00 - 0.10 K/cumm [facility] Neutrophil pct 70.4 % CERPETAR [facility] Comment: Interpretive Data Percent cell count reference ranges are not reported, since discordance with absolute values may lead to misinterpretation of CBC data. Current Interpretive Data was last revised on 2017. Imm gran pct 0.3 % DAVID [facility] Comment: Interpretive Data Percent cell count reference ranges are not reported, since discordance with absolute values may lead to misinterpretation of CBC data. Current Interpretive Data was last revised on 2017. Lymphocyte pct 15.0 % DAVID [facility] Comment: Interpretive Data Percent cell count reference ranges are not reported, since discordance with absolute values may lead to misinterpretation of CBC data. Current Interpretive Data was last revised on 2017. Monocyte pct 10.4 % DAVID [facility] Comment: Interpretive Data Percent cell count reference ranges are not reported, since discordance with absolute values may lead to misinterpretation of CBC data. Current Interpretive Data was last revised on 2017. Eosinophil pct 3.4 % DAVID [facility] Comment: Interpretive Data Percent cell count reference ranges are not reported, since discordance with absolute values may lead to misinterpretation of CBC data. Current Interpretive Data was last revised on 2017. Basophil pct 0.5 % DAVID [facility] Comment: Interpretive Data Percent cell count reference ranges are not reported, since discordance with absolute values may lead to misinterpretation of CBC data. Current Interpretive Data was last revised on 2017. Blood 12/08/2024 11:0 2 PM CDT 12/08/2024 11:05 PM CDT Mary Lagunas MD LAB BLOOD ORDERABLES Final Result [facility]YCH [address] Department [place] [address] * (ABNORMAL) CBC with auto differential (12/08/2024 11:02 PM CDT) WBC 6.47 3.80 - 9.90 K/cumm Hgb 11.4(L) 13.0 - 17.5 g/dL [facility] Hct 36.7(L) 38.9 - 50.3 % [facility] Plt 213 150 - 400 K/cumm [facility] MPV 10.4 9.1 - 12.3 fL [facility] RBC 4.51 4.30 - 5.80 M/cumm [facility] MCV 81.4 81.3 - 96.4 fL [facility] MCH 25.3(L) 27.1 - 33.3 pg [facility] MCHC 31.1(L) 32.3 - 35.7 g/dL [facility] RDW CV 18.4(H) 11.1 - 14.9 % [facility] RDW SD 53.5(H) 35.7 - 48.1 fL [facility] NRBC abs 0.00 0.00 - 0.01 K/cumm [facility] Blood 12/08/2024 11:0 2 PM CDT 12/08/2024 11:05 PM CDT Mary Lagunas MD LAB BLOOD ORDERABLES Final Result [facility] SWE[facility] [address] [place] [address] * Type and screen (12/08/2024 11:02 PM CDT) ABO Rh A Positive [facility] Zaid, indirect Negative [facility] Blood 12/08/2024 11:0 2 PM CDT 12/08/2024 11:05 PM CDT Narrative [facility] - 12/09/2024 12:41 AM CDT Has the patient had Daratumumab or Isatuximab in the past 6 months?->Unknown Mary Lagunas MD LAB BLOOD BANK TEST ORDERAB LES Final Result DAV[facility] PEOPLES [address] [employer] [place], [place] [id number] * (ABNORMAL) Basic metabolic panel (12/08/2024 11:02 PM CDT) [facility] Sodium 139 135 - 145 mmol/L Potassium, pl 4.2 3.3 - 4.9 mmol/L [facility] Chloride 104 97 - 110 mmol/L [facility] CO2 19(L) 22 - 32 mmol/L [facility] Anion gap 16(H) 2 - 15 mmol/L [facility] BUN 28(H) 6 - 25 mg/dL [facility] Creatinine 0.80 0.80 - 1.30 mg/dL [facility] Glucose 212(H) 70 - 199 mg/dL [facility] Comment: Interpretive Data Fasting glucose >/= [...] 2022. Calcium 9.2 8.5 - 10.3 mg/dL [facility] Blood 12/08/2024 11:0 2 PM CDT 12/08/2024 11:05 PM CDT Mary Lagunas MD LAB BLOOD ORDERABLES Final Result Performing Organization Address City/[facility]/ZIP Co de Phone Number DAVID PEOPLES [address] [place] [address] * (ABNORMAL) POCT glucose (12/08/2024 11:01 PM CDT) Glucose, POC 201(H) 70 - 199 mg/dL Comment: Interpretive Data Glucose is assumed to be non-fasting. Fasting Glucose reference ranges are: 0 - 150 years: 70 mg/dL - 99 mg/dL Current interpretive data was last revised on 2014. POC Performer [id number] [employer] POC Device Number [id number] [facility] Blood 12/08/2024 11:0 1 PM CDT 12/08/2024 11:01 PM CDT us Notinf[employer] Unknown LAB POCT ORDERABLES - DEVICE F inal Result Performing Organization Address [facility] Co de Phone Number [facility] [address] [facility] [place] [address] * POCT glucose (11/24/2024 7:48 AM CDT) Glucose, POC 119 70 - 199 mg/dL Comment: Interpretive Data Glucose is assumed to be non-fasting. Fasting Glucose reference ranges are: 0 - 150 years: 70 mg/dL - 99 mg/dL Current interpretive data was last revised on 2014. POC Performer [id number] [facility] POC Device Number [id number] [facility] Blood 11/24/2024 7:48 AM CDT 11/24/2024 7:48 AM CDT us Tavon Razo MD LAB POCT ORDERABLES - D EVICE Final Result Performing Organization Address City/[facility]/ZIP Co de Phone Number [facility] [address] [facility] [place] [address] * eGFR (11/24/2024 4:17 AM CDT) eGFR [...] Razo MD LAB BLOOD ORDERABLES nal Result [facility] [address] [place] [address] * (ABNORMAL) Differential, auto (11/24/2024 4:17 AM CDT) Pathologist [facility] Neutrophil abs 1.46(L) 1.50 - 6.50 K/cumm Imm gran abs 0.01 0.00 - 0.10 K/cumm [facility] Lymphocyte abs 0.70(L) 0.80 - 3.30 K/cumm [facility] Monocyte abs 0.34 0.20 - 0.80 K/cumm [facility] W Eosinophil abs 0.11 0.00 - 0.50 K/cumm [facility] W Basophil abs 0.01 0.00 - 0.10 K/cumm [facility] Neutrophil pct 55.5 % [facility] Comment: Interpretive Data Percent cell count reference ranges are not reported, since discordance with absolute values may lead to misinterpretation of CBC data. Current Interpretive Data was last revised on 2017. Imm gran pct 0.4 % [facility] Comment: Interpretive Data Percent cell count reference ranges are not reported, since discordance with absolute values may lead to misinterpretation of CBC data. Current Interpretive Data was last revised on 2017. Lymphocyte pct 26.6 % [facility] Comment: Interpretive Data Percent cell count reference ranges are not reported, since discordance with absolute values may lead to misinterpretation of CBC data. Current Interpretive Data was last revised on 2017. Monocyte pct 12.9 % [facility] Comment: Interpretive Data Percent cell count reference ranges are not reported, since discordance with absolute values may lead to misinterpretation of CBC data. Current Interpretive Data was last revised on 2017. Eosinophil pct 4.2 % [facility] Comment: Interpretive Data Percent cell count reference ranges are not reported, since discordance with absolute values may lead to misinterpretation of CBC data. Current Interpretive Data was last revised on 2017. Basophil pct 0.4 % [facility] Comment: Interpretive Data Percent cell count reference ranges are not reported, since discordance with absolute values may lead to misinterpretation of CBC data. Current Interpretive Data was last revised on 2017. Blood 11/24/2024 4:17 AM CDT 11/24/2024 4:25 AM CDT Tavon Razo MD LAB BLOOD ORDERABLES nal Result [facility] [address] [facility] Department [place] [address] * (ABNORMAL) CBC with auto differential (11/24/2024 4:17 AM CDT) WBC 2.63(L) 3.80 - 9.90 K/cumm Hgb 9.8(L) 13.0 - 17.5 g/dL [facility] SWEENEY Hct 32.2(L) 38.9 - 50.3 % [facility] Plt 118(L) 150 - 400 K/cumm [facility] MPV 9.8 9.1 - 12.3 fL [facility] RBC 3.93(L) 4.30 - 5.80 M/cumm [facility] MCV 81.9 81.3 - 96.4 fL [facility] MCH 24.9(L) 27.1 - 33.3 pg [facility] MCHC 30.4(L) 32.3 - 35.7 g/dL [facility] RDW CV 17.2(H) 11.1 - 14.9 % [facility] RDW SD 51.7(H) 35.7 - 48.1 fL [facility] NRBC abs 0.00 0.00 - 0.01 K/cumm [facility] Blood 11/24/2024 4:17 AM CDT 11/24/2024 4:25 AM CDT Tavon Razo MD LAB BLOOD ORDERABLES nal Result [facility] [address] Department of Laboratories [place], [place] [id number] * (ABNORMAL) Comprehensive metabolic panel (11/24/2024 4:17 AM CDT) Sodium 142 135 - 145 mmol/L Potassium, pl 4.0 3.3 - 4.9 mmol/L [facility] Chloride 107 97 - 110 mmol/L [facility] CO2 26 22 - 32 mmol/L [facility] Anion gap 9 2 - 15 mmol/L [facility] BUN 8 6 - 25 mg/dL [facility] Creatinine 0.60(L) 0.80 - 1.30 mg/dL [facility] Glucose 136 70 - 199 mg/dL [facility] Comment: Interpretive Data Fasting glucose >/= 126 [...] AST 30 10 - 50 Units/L [facility] Blood 11/24/2024 4:17 AM CDT 11/24/2024 4:25 AM CDT Tavon Razo MD LAB BLOOD ORDERABLES Fi nal Result Performing Organization Address City/[facility] Co de Phone Number [facility] [address] [employer] [place], [place] [id number] * POCT glucose (11/23/2024 9:13 PM CDT) [facility] Glucose, POC 177 70 - 199 mg/dL Comment: Interpretive Data Glucose is assumed to be non-fasting. Fasting Glucose reference ranges are: 0 - 150 years: 70 mg/dL - 99 mg/dL Current interpretive data was last revised on 2014. POC Performer [id number] [facility] POC Device Number [id number] [facility] Blood 11/23/2024 9:13 PM CDT 11/23/2024 9:13 PM CDT Tavon Razo MD LAB POCT ORDERABLES - D EVICE Final Result Performing Organization Address City/[facility]/ZIP Co de Phone Number [facility] [address] [facility] [place] [address] * POCT glucose (11/23/2024 4:27 PM CDT) Glucose, POC 177 70 - 199 mg/dL Comment: Interpretive Data Glucose is assumed to be non-fasting. Fasting Glucose reference ranges are: 0 - 150 years: 70 mg/dL - 99 mg/dL Current interpretive data was last revised on 2014. POC Performer [id number] [employer] POC Device Number [id number] [facility] Blood 11/23/2024 4:27 PM CDT 11/23/2024 4:27 PM CDT Tavon Razo MD LAB POCT ORDERABLES - D EVICE Final Result Performing Organization Address [facility] de Phone Number [facility] [address] [facility] [place] [address] * (ABNORMAL) POCT glucose (11/23/2024 12:07 PM CDT) Glucose, POC 219(H) 70 - 199 mg/dL Comment: Interpretive Data Glucose is assumed to be non-fasting. Fasting Glucose reference ranges are: 0 - 150 years: 70 mg/dL - 99 mg/dL Current interpretive data was last revised on 2014. POC Performer [id number] [facility] POC Device Number [id number] [facility] Blood 11/23/2024 12:0 7 PM CDT 11/23/2024 12:07 PM CDT Tavon Razo MD LAB POCT ORDERABLES - D EVICE Final Result Performing Organization Address City/[facility] Co de Phone Number [facility] [address] [place] [address] * POCT glucose (11/23/2024 7:37 AM CDT) Glucose, POC 99 70 - 199 mg/dL Comment: Interpretive Data Glucose is assumed to be non-fasting. Fasting Glucose reference ranges are: 0 - 150 years: 70 mg/dL - 99 mg/dL Current interpretive data was last revised on 2014. POC Performer [id number] [facility] POC Device Number [id number] [facility] Blood 11/23/2024 7:37 AM CDT 11/23/2024 7:37 AM CDT us Tavon Razo MD LAB POCT ORDERABLES - D EVICE Final Result Performing Organization Address City/State/ZIP Co oh Phone Number [facility] [address] Department [place] [address] * eGFR (11/23/2024 4:01 AM CDT) Pathologist [facility] eGFR >90 >=60 mL/min/1. 73 m2 Comment: [...] BLOOD ORDERABLES Fi nal Result DAVID PEOPLES [address] Department [place] [address] * (ABNORMAL) Differential, auto (11/23/2024 4:01 AM CDT) Neutrophil abs 1.51 1.50 - 6.50 K/cumm Imm gran abs 0.01 0.00 - 0.10 K/cumm [facility] Lymphocyte abs 0.63(L) 0.80 - 3.30 K/cumm [facility] Monocyte abs 0.32 0.20 - 0.80 K/cumm [facility] Eosinophil abs 0.09 0.00 - 0.50 K/cumm [facility] Basophil abs 0.01 0.00 - 0.10 K/cumm [facility] Neutrophil pct 58.7 % [facility] Comment: Interpretive Data Percent cell count reference ranges are not reported, since discordance with absolute values may lead to misinterpretation of CBC data. Current Interpretive Data was last revised on 2017. Imm gran pct 0.4 % [facility] VIRGENROSSANA Comment: Interpretive Data Percent cell count reference ranges are not reported, since discordance with absolute values may lead to misinterpretation of CBC data. Current Interpretive Data was last revised on 2017. Lymphocyte pct 24.5 % [facility] Comment: Interpretive Data Percent cell count reference ranges are not reported, since discordance with absolute values may lead to misinterpretation of CBC data. Current Interpretive Data was last revised on 2017. Monocyte pct 12.5 % [facility] Comment: Interpretive Data Percent cell count reference ranges are not reported, since discordance with absolute values may lead to misinterpretation of CBC data. Current Interpretive Data was last revised on 2017. Eosinophil pct 3.5 % [facility] Comment: Interpretive Data Percent cell count reference [...] BLOOD ORDERABLES Fi nal Result DAVID PEOPLES [address] [employer] [place], [place] [id number] * (ABNORMAL) CBC with auto differential (11/23/2024 4:01 AM CDT) WBC 2.57(L) 3.80 - 9.90 K/cumm Hgb 9.9(L) 13.0 - 17.5 g/dL [facility] Hct 32.0(L) 38.9 - 50.3 % [facility] Plt 120(L) 150 - 400 K/cumm [facility] MPV 10.0 9.1 - 12.3 fL [facility] RBC 3.84(L) 4.30 - 5.80 M/cumm [facility] MCV 83.3 81.3 - 96.4 fL [facility] MCH 25.8(L) 27.1 - 33.3 pg [facility] MCHC 30.9(L) 32.3 - 35.7 g/dL [facility] RDW CV 17.2(H) 11.1 - 14.9 % [facility] RDW SD 52.0(H) 35.7 - 48.1 fL [facility] NRBC abs 0.00 0.00 - 0.01 K/cumm [facility] Blood 11/23/2024 4:01 AM CDT 11/23/2024 4:05 AM CDT Tavon Razo MD LAB BLOOD ORDERABLES Fi nal Result DAV[facility] PEOPLES [address] [address] * (ABNORMAL) Comprehensive metabolic panel (11/23/2024 4:01 AM CDT) Sodium 139 135 - 145 mmol/L Potassium, pl 4.1 3.3 - 4.9 mmol/L [facility] Chloride 107 97 - 110 mmol/L [facility] CO2 22 22 - 32 mmol/L [facility] Anion gap 10 2 - 15 mmol/L [facility] BUN 7 6 - 25 mg/dL [facility] Creatinine 0.50(L) 0.80 - 1.30 mg/dL [facility] Glucose 109 70 - 199 mg/dL [facility] Comment: [...] MD LAB BLOOD ORDERABLES Fi nal Result [facility] [address] [facility] Department [place] [address] * Respiratory pathogen panel Nasopharyngeal (11/22/2024 11:01 PM CDT) [facility] Influenza A RNA Not Detected Not Detected [facility] Comment:Testing performed by : [facility], [address] [place] [address]., [address] Influenza B RNA Not Detected Not Detected [facility] Comment:Testing performed by : [facility], [address] [place] [address]., 61283 RSV RNA Not Detected Not Detected [facility] Comment:Testing performed by : [facility], [address] [place] [address]., [address] COVID-19 RNA Not Detected Not Detected [facility] Comment:Testing performed by : [facility], [address] [place] [address]., 145[address] Coronavirus 229E RNA Not Detected Not Detected [facility] Comment:Testing performed by : [facility], [address] [place] [address]., [address] Coronavirus HKU1 RNA Not Detected Not Detected [facility] Comment:Testing performed by : [facility], [address] [place] [address]., [address]6426 Coronavirus NL63 RNA Not Detected Not Detected [facility] Comment:Testing performed by : [facility], [address] [place] [address]., 04[address] Coronavirus OC43 RNA Not Detected Not Detected [facility] Comment:Testing performed by : [facility], [address] [place] [address]., 29563 Adenovirus DNA Not Detected Not Detected [facility] Comment:Testing performed by : [facility], [address] [place] [address]., 33633 Metapneumovirus RNA Not Detected Not Detected [facility] Comment:Testing performed by : [facility], [address] [place] [address]., [address]58[address] Rhinovirus/Enterov irus RNA Not Detected Not Detected [facility] Comment:Testing performed by : [facility], [address] [place] [address]., 11226 Parainfluenza 1 RNA Not Detected Not Detected [facility] Comment:Testing performed by : [facility], [address] [place] [address]., [address] Parainfluenza 2 RNA Not Detected Not Detected [facility] Comment:Testing performed by : [facility], [address] [place] [address]., [address]37[address] Parainfluenza 3 RNA Not Detected Not Detected [facility] Comment:Testing performed by : [facility], [address] [place] [address]., 61397 Parainfluenza 4 RNA Not Detected Not Detected [facility] Comment:Testing performed by : [facility], [address] [place] [address]., 564[address] B. pertussis DNA Not Detected Not Detected [facility] Comment:Testing performed by : [facility], [address] [place] [address]., [address]159 B. parapertussis DNA Not Detected Not Detected [facility] Comment:Testing performed by : [facility], [address] [place] [address]., 56201 C. pneumoniae DNA Not Detected Not Detected [facility] Comment:Testing performed by : [facility], [address] [place] [address]., 23586 M. pneumoniae DNA Not Detected Not Detected [facility] Comment: Interpretive Data [employer] Respiratory Panel (RP2.1) assay is a [...] assay has FDA clearance for testing of RUBBER ENGRAVER swabs. The performance characteristics of this assay have been determined by [facility]. Current interpretive data was last revised on 2021. Testing performed by: [facility], [facility][note 2][address] [facility], [place]., [address] Nasopharyngeal 11/22/2024 11 :01 PM CDT 11/23/2024 3:57 AM CDT Narrative DAVID PEOPLES - 11/23/2024 4:49 AM CDT Is the Patient experiencing symptoms consistent with COVID?->Unknown Surveillance testing for transplant patient?->No Rosa Camp MD LAB MICROBIOLOGY - GENERAL ORDERABLES Final Result [facility] [address] [place] [address] MBC * (ABNORMAL) POCT glucose (11/22/2024 8:35 PM CDT) Glucose, POC 206(H) 70 - 199 mg/dL Comment: Interpretive Data Glucose is assumed to be non-fasting. Fasting Glucose reference ranges are: 0 - 150 years: 70 mg/dL - 99 mg/dL Current interpretive data was last revised on 2014. POC Performer [id number] [facility] POC Device Number [id number] [facility] Blood 11/22/2024 8:35 PM CDT 11/22/2024 8:35 PM CDT Tavon Razo MD LAB POCT ORDERABLES - D EVICE Final Result Performing Organization Address [facility] Co de Phone Number [facility] [address] [place] [address] * POCT glucose (11/22/2024 4:25 PM CDT) [facility] Glucose, POC 113 70 - 199 mg/dL Comment: Interpretive Data Glucose is assumed to be non-fasting. Fasting Glucose reference ranges are: 0 - 150 years: 70 mg/dL - 99 mg/dL Current interpretive data was last revised on 2014. POC Performer [id number] [facility] POC Device Number [id number] [facility] Blood 11/22/2024 4:25 PM CDT 11/22/2024 4:25 PM CDT Tavon Razo MD LAB POCT ORDERABLES - D EVICE Final Result Performing Organization Address City/[facility] Co de Phone Number [facility] [address] [place] [address] * POCT glucose (11/22/2024 1:08 PM CDT) Glucose, POC 165 70 - 199 mg/dL Comment: Interpretive Data Glucose is assumed to be non-fasting. Fasting Glucose reference ranges are: 0 - 150 years: 70 mg/dL - 99 mg/dL Current interpretive data was last revised on 2014. POC Performer [id number] [facility] P[facility] Device Number [id number] [facility] Blood 11/22/2024 1:08 PM CDT 11/22/2024 1:08 PM CDT Tavon Razo MD LAB POCT ORDERABLES - D EVICE Final Result Performing Organization Address [facility] de Phone Number [facility] [address] [address] Department [place] [address] * ECG 12 lead (11/22/2024 10:08 AM CDT) 11/22/2024 10:0 8 AM CDT Narrative [facility] - 11/23/2024 2:41 PM CDT Vent Rate: 60 bpm RR Interval: 998 msec ME Interval: 279 msec QRS Duration: 169 msec QT Interval: 484 msec QTC Interval: 484 msec P-R-T [place]: 113 - -51 - -11 degrees IMPRESSION: [employer]IAL [employer] RIGHT BUNDLE BRANCH BLOCK LEFT ANTERIOR FASCICULAR BLOCK ABNORMAL ECG Electronically Signed By: Gautam Hope MD Tavon Razo MD ECG ORDERABLES Final R esult Performing Organization Address [facility] Co de Phone Number [facility] [employer] * POCT glucose (11/22/2024 8:54 AM CDT) Glucose, POC 92 70 - 199 mg/dL Comment: Interpretive Data Glucose is assumed to be non-fasting. Fasting Glucose reference ranges are: 0 - 150 years: 70 mg/dL - 99 mg/dL Current interpretive data was last revised on 2014. POC Performer [id number] [facility] POC Device Number [id number] [facility] Blood 11/22/2024 8:54 AM CDT 11/22/2024 8:54 AM CDT Tavon Razo MD LAB POCT ORDERABLES - D EVICE Final Result Performing Organization Address [facility] de Phone Number [facility] [address] [facility] [place] [address] * POCT glucose (11/22/2024 4:24 AM CDT) Glucose, POC 95 70 - 199 mg/dL Comment: Interpretive Data Glucose is assumed to be non-fasting. Fasting Glucose reference ranges are: 0 - 150 years: 70 mg/dL - 99 mg/dL Current interpretive data was last revised on 2014. POC Performer [id number] [facility] POC Device Number [id number] [facility] Blood 11/22/2024 4:24 AM CDT 11/22/2024 4:24 AM CDT Tavon Razo MD LAB POCT ORDERABLES - D EVICE Final Result Performing Organization Address [facility] de Phone Number [facility] [address] [facility] [place] [address] * eGFR (11/22/2024 4:21 AM CDT) eGFR [...] LAB BLOOD ORDERABLES Fi nal Result [facility] [address] [place] [address] * (ABNORMAL) Differential, auto (11/22/2024 4:21 AM CDT) Neutrophil abs 1.38(L) 1.50 - 6.50 K/cumm Imm gran abs 0.00 0.00 - 0.10 K/cumm [facility] Lymphocyte abs 0.55(L) 0.80 - 3.30 K/cumm [facility] Monocyte abs 0.35 0.20 - 0.80 K/cumm [facility] Eosinophil abs 0.10 0.00 - 0.50 K/cumm [facility] Basophil abs 0.01 0.00 - 0.10 K/cumm [facility] Neutrophil pct 57.8 % [facility] Comment: Interpretive Data Percent cell count reference ranges are not reported, since discordance with absolute values may lead to misinterpretation of CBC data. Current Interpretive Data was last revised on 2017. Imm gran pct 0.0 % [facility] Comment: Interpretive Data Percent cell count reference ranges are not reported, since discordance with absolute values may lead to misinterpretation of CBC data. Current Interpretive Data was last revised on 2017. Lymphocyte pct 23.0 % [facility] Comment: Interpretive Data Percent cell count reference ranges are not reported, since discordance with absolute values may lead to misinterpretation of CBC data. Current Interpretive Data was last revised on 2017. Monocyte pct 14.6 % [facility] Comment: Interpretive Data Percent cell count reference ranges are not reported, since discordance with absolute values may lead to misinterpretation of CBC data. Current Interpretive Data was last revised on 2017. Eosinophil pct 4.2 % [facility] Comment: Interpretive Data Percent cell count reference ranges are not reported, since discordance with absolute values may lead to misinterpretation of CBC data. Current Interpretive Data was last revised on 2017. Basophil pct 0.4 % [facility] Comment: Interpretive Data Percent cell count reference ranges are not reported, since discordance with absolute values may lead to misinterpretation of CBC data. Current Interpretive Data was last revised on 2017. Blood 11/22/2024 4:21 AM CDT 11/22/2024 4:33 AM CDT Tavon Razo MD LAB BLOOD ORDERABLES [facility] Result [facility] [address] [facility] Department [place] [address] * (ABNORMAL) CBC with auto differential (11/22/2024 4:21 AM CDT) WBC 2.39(L) 3.80 - 9.90 K/cumm Hgb 10.3(L) 13.0 - 17.5 g/dL [facility] Hct 34.5(L) 38.9 - 50.3 % [facility] Plt 114(L) 150 - 400 K/cumm [facility] MPV 10.0 9.1 - 12.3 fL [facility] RBC 4.10(L) 4.30 - 5.80 M/cumm [facility] MCV 84.1 81.3 - 96.4 fL [facility] MCH 25.1(L) 27.1 - 33.3 pg [facility] MCHC 29.9(L) 32.3 - 35.7 g/dL [facility] RDW CV 17.1(H) 11.1 - 14.9 % [facility] RDW SD 52.8(H) 35.7 - 48.1 fL [facility] NRBC abs 0.00 0.00 - 0.01 K/cumm [facility] Blood 11/22/2024 4:21 AM CDT 11/22/2024 4:33 AM CDT Tavon Razo MD LAB BLOOD ORDERABLES Fi nal Result [facility]ID [place] [address] [facility] Department [place] [address] * (ABNORMAL) Comprehensive metabolic panel (11/22/2024 4:21 AM CDT) Sodium 140 135 - 145 [...] [facility] Glucose 117 70 - 199 mg/dL [facility] Comment: Interpretive Data Fasting glucose >/= [...] [facility] Albumin 3.0(L) 3.5 - 5.0 g/dL [facility] Alk phos 375(H) 40 - 130 Units/L [facility] ALT 31 7 - 55 Units/L [facility] AST 31 10 - 50 Units/L [facility] Blood 11/22/2024 4:21 AM CDT 11/22/2024 4:33 AM CDT Tavon Razo MD LAB BLOOD ORDERABLES Fi nal Result Performing Organization Address [facility] de Phone Number [facility] [address] [facility] [place] [address] * POCT glucose (11/22/2024 12:27 AM CDT) Glucose, POC 113 70 - 199 mg/dL Comment: Interpretive Data Glucose is assumed to be non-fasting. Fasting Glucose reference ranges are: 0 - 150 years: 70 mg/dL - 99 mg/dL Current interpretive data was last revised on 2014. POC Performer [id number] [facility] POC Device Number [id number] [facility] Blood 11/22/2024 12:2 7 AM CDT 11/22/2024 12:27 AM CDT Tavon Razo MD LAB POCT ORDERABLES - D EVICE Final Result Performing Organization Address [facility] de Phone Number [facility] [address] [facility] [place] [address] * POCT glucose (11/21/2024 9:23 PM CDT) Glucose, POC 114 70 - 199 mg/dL Comment: Interpretive Data Glucose is assumed to be non-fasting. Fasting Glucose reference ranges are: 0 - 150 years: 70 mg/dL - 99 mg/dL Current interpretive data was last revised on 2014. POC Performer [id number] [facility] POC Device Number [id number] [facility] Blood 11/21/2024 9:23 PM CDT 11/21/2024 9:23 PM CDT Tavon Razo MD LAB POCT ORDERABLES - D EVICE Final Result Performing Organization Address [facility] Phone Number [facility] [address] [facility] [place] [address] * POCT glucose (11/21/2024 4:32 PM CDT) Glucose, POC 91 70 - 199 mg/dL Comment: Interpretive Data Glucose is assumed to be non-fasting. Fasting Glucose reference ranges are: 0 - 150 years: 70 mg/dL - 99 mg/dL Current interpretive data was last revised on 2014. POC Performer [id number] [facility] POC Device Number [id number] [facility] Blood 11/21/2024 4:32 PM CDT 11/21/2024 4:32 PM CDT Tavon Razo MD LAB POCT ORDERABLES - D EVICE Final Result Performing Organization Address [facility] de Phone Number [facility] [address] [place] [address] * POCT glucose (11/21/2024 12:21 PM CDT) Glucose, POC 118 70 - 199 mg/dL Comment: Interpretive Data Glucose is assumed to be non-fasting. Fasting Glucose reference ranges are: 0 - 150 years: 70 mg/dL - 99 mg/dL Current interpretive data was last revised on 2014. POC Performer [id number] [facility] POC Device Number [id number] [facility] Blood 11/21/2024 12:2 1 PM CDT 11/21/2024 12:21 PM CDT Tavon Razo MD LAB POCT ORDERABLES - D EVICE Final Result [facility] [address] Department [place] [address] * XR Abdomen Ap 1 Vw (11/21/2024 12:07 PM CDT) Anatomical Region Laterality Modality Body, Abdomen N/A Computed Radiogr aphy 11/21/2024 12:3 7 PM CDT Impressions 11/21/2024 12:37 PM CDT The bilateral hemidiaphragms are largely excluded from the [id number]. There is mild gaseous distention of small [...] bilateral hemidiaphragms are largely excluded from the wxgxq-yv-cguc. There is mild gaseous distention of small bowel loops in the left hemiabdomen which may represent ileus. An endoscopic clip projects over the stomach. Bladder stimulator device projects over the right hemipelvis. Electronically signed by: Shahana Salguero M.D. Tavon Razo MD IMG XR PROCEDURES Final Result * POCT glucose (11/21/2024 8:13 AM CDT) [facility] Glucose, POC 111 70 - 199 mg/dL Comment: Interpretive Data Glucose is assumed to be non-fasting. Fasting Glucose reference ranges are: 0 - 150 years: 70 mg/dL - 99 mg/dL Current interpretive data was last revised on 2014. POC Performer [id number] [employer] POC Device Number [id number] [facility]getaBRONX[facility] Blood 11/21/2024 8:13 AM CDT 11/21/2024 8:13 AM CDT Tavon Razo MD LAB POCT ORDERABLES - D EVICE Final Result Performing Organization Address [facility] de Phone Number [facility] [address] [facility] [place] [address] * POCT glucose (11/21/2024 4:45 AM CDT) Glucose, POC 123 70 - 199 mg/dL Comment: Interpretive Data Glucose is assumed to be non-fasting. Fasting Glucose reference ranges are: 0 - 150 years: 70 mg/dL - 99 mg/dL Current interpretive data was last revised on 2014. POC Performer [id number] [facility] POC Device Number [id number] [facility] Blood 11/21/2024 4:45 AM CDT 11/21/2024 4:45 AM CDT Tavon Razo MD LAB POCT ORDERABLES - D EVICE Final Result Performing Organization Address [facility] de Phone Number [facility] [address] [facility] [place] [address] * eGFR (11/21/2024 2:54 AM CDT) eGFR >90 >=60 mL/min/1. 73 [...] LAB BLOOD ORDERABLES Fi nal Result [facility] [address] [facility] Department [place] [address] * (ABNORMAL) Differential, auto (11/21/2024 2:54 AM CDT) Neutrophil abs 1.41(L) 1.50 - 6.50 K/cumm Imm gran abs 0.00 0.00 - 0.10 K/cumm [facility] Lymphocyte abs 0.52(L) 0.80 - 3.30 K/cumm [facility] Monocyte abs 0.29 0.20 - 0.80 K/cumm [facility] Eosinophil abs 0.09 0.00 - 0.50 K/cumm [facility] Basophil abs 0.02 0.00 - 0.10 K/cumm [facility] Neutrophil pct 60.5 % [facility] Comment: Interpretive Data Percent cell count reference ranges are not reported, since discordance with absolute values may lead to misinterpretation of CBC data. Current Interpretive Data was last revised on 2017. Imm gran pct 0.0 % [facility] Comment: Interpretive Data Percent cell count reference ranges are not reported, since discordance with absolute values may lead to misinterpretation of CBC data. Current Interpretive Data was last revised on 2017. Lymphocyte pct 22.3 % [facility] Comment: Interpretive Data Percent cell count reference ranges are not reported, since discordance with absolute values may lead to misinterpretation of CBC data. Current Interpretive Data was last revised on 2017. Monocyte pct 12.4 % [facility] Comment: Interpretive Data Percent cell count reference ranges are not reported, since discordance with absolute values may lead to misinterpretation of CBC data. Current Interpretive Data was last revised on 2017. Eosinophil pct 3.9 % [facility] Comment: Interpretive Data Percent cell count reference ranges are not reported, since discordance with absolute values may lead to misinterpretation of CBC data. Current Interpretive Data was last revised on 2017. Basophil pct 0.9 % DAV[facility] Comment: Interpretive Data Percent cell count reference ranges are not reported, since discordance with absolute values may lead to misinterpretation of CBC data. Current Interpretive Data was last revised on 2017. Blood 11/21/2024 2:54 AM CDT 11/21/2024 3:25 AM CDT Tavon Razo MD LAB BLOOD ORDERABLES Fi nal Result [facility] [address] [facility] Department [place] [address] * (ABNORMAL) CBC with auto differential (11/21/2024 2:54 AM CDT) WBC 2.33(L) 3.80 - 9.90 K/cumm Hgb 10.4(L) 13.0 - 17.5 g/dL [facility] Hct 35.3(L) 38.9 - 50.3 % [facility] Plt 144(L) 150 - 400 K/cumm [facility] MPV 10.9 9.1 - 12.3 fL [facility] RBC 4.21(L) 4.30 - 5.80 M/cumm [facility] MCV 83.8 81.3 - 96.4 fL [facility] MCH 24.7(L) 27.1 - 33.3 pg [facility] MCHC 29.5(L) 32.3 - 35.7 g/dL [facility] RDW CV 17.4(H) 11.1 - 14.9 % [facility] RDW SD 53.1(H) 35.7 - 48.1 fL [facility] NRBC abs 0.00 0.00 - 0.01 K/cumm [facility] Blood 11/21/2024 2:54 AM CDT 11/21/2024 3:25 AM CDT Tavon Razo MD LAB BLOOD ORDERABLES Fi nal Result [place]ID [place] [address] [facility] [place] [address] * (ABNORMAL) Comprehensive metabolic panel (11/21/2024 2:54 AM CDT) Sodium 140 135 - 145 mmol/L Potassium, pl 3.9 3.3 - 4.9 mmol/L [facility] Chloride 108 97 - 110 mmol/L [facility] CO2 25 22 - 32 mmol/L [facility] Anion gap 8 2 - 15 mmol/L [facility] BUN 6 6 - 25 mg/dL [facility] Creatinine 0.64(L) 0.80 - 1.30 mg/dL [facility] Glucose 124 70 - 199 mg/dL [facility] Comment: Interpretive Data Fasting glucose >/= 126 [...] 2022. Calcium 8.3(L) 8.5 - 10.3 mg/dL [facility] Bilirubin, total 0.4 0.1 - 1.2 mg/dL [facility] Protein, pl 5.9(L) 6.5 - 8.5 g/dL [facility] Albumin 3.3(L) 3.5 - 5.0 g/dL [facility] Alk phos 421(H) 40 - 130 Units/L [facility] ALT 39 7 - 55 Units/L [facility] AST 46 10 - 50 Units/L [facility] Blood 11/21/2024 2:54 AM CDT 11/21/2024 3:25 AM CDT Tavon Razo MD LAB BLOOD ORDERABLES Fi nal Result Performing Organization Address [facility] Co de Phone Number DAVID [facility] [address] [facility] [employer] [place] [address] * POCT glucose (11/20/2024 11:49 PM CDT) Glucose, POC 134 70 - 199 mg/dL Comment: Interpretive Data Glucose is assumed to be non-fasting. Fasting Glucose reference ranges are: 0 - 150 years: 70 mg/dL - 99 mg/dL Current interpretive data was last revised on 2014. POC Performer [id number] [facility] POC Device Number [id number] [facility] Blood 11/20/2024 11:4 9 PM CDT 11/20/2024 11:49 PM CDT Tavon Razo MD LAB POCT ORDERABLES - D EVICE Final Result Performing Organization Address [facility] Co de Phone Number [facility] [address] [facility] [employer] [place] [address] * POCT glucose (11/20/2024 8:31 PM CDT) Glucose, POC 189 70 - 199 mg/dL Comment: Interpretive Data Glucose is assumed to be non-fasting. Fasting Glucose reference ranges are: 0 - 150 years: 70 mg/dL - 99 mg/dL Current interpretive data was last revised on 2014. POC Performer [id number] [facility] POC Device Number [id number] [facility] Blood 11/20/2024 8:31 PM CDT 11/20/2024 8:31 PM CDT Tavon Razo MD LAB POCT ORDERABLES - D EVICE Final Result Performing Organization Address [facility] de Phone Number [facility] [address] [facility] [employer] [place], [place] [id number] * POCT glucose (11/20/2024 3:59 PM CDT) Glucose, POC 158 70 - 199 mg/dL Comment: Interpretive Data Glucose is assumed to be non-fasting. Fasting Glucose reference ranges are: 0 - 150 years: 70 mg/dL - 99 mg/dL Current interpretive data was last revised on 2014. POC Performer [id number] [facility] POC Device Number [id number] [facility] Blood 11/20/2024 3:5 9 PM CDT 11/20/2024 3:59 PM CDT Tavon Razo MD LAB POCT ORDERABLES - D EVICE Final Result Performing Organization Address [facility] de Phone Number [facility] [address] [facility] [place] [address] * POCT glucose (11/20/2024 12:33 PM CDT) Glucose, POC 76 70 - 199 mg/dL Comment: Interpretive Data Glucose is assumed to be non-fasting. Fasting Glucose reference ranges are: 0 - 150 years: 70 mg/dL - 99 mg/dL Current interpretive data was last revised on 2014. POC Performer [id number] DAVID [employer] POC Device Number [id number] [facility] Blood 11/20/2024 12:3 3 PM CDT 11/20/2024 12:33 PM CDT Tavon Razo MD LAB POCT ORDERABLES - D EVICE Final Result Performing Organization Address [facility] Phone Number [facility] [address] [place] [address] * POCT glucose (11/20/2024 9:00 AM CDT) Glucose, POC 85 70 - 199 mg/dL Comment: Interpretive Data Glucose is assumed to be non-fasting. Fasting Glucose reference ranges are: 0 - 150 years: 70 mg/dL - 99 mg/dL Current interpretive data was last revised on 2014. POC Performer [id number] [facility] POC Device Number [id number] [facility] Blood 11/20/2024 9:00 AM CDT 11/20/2024 9:00 AM CDT Tavon Razo MD LAB POCT ORDERABLES - D EVICE Final Result Performing Organization Address [facility] de Phone Number [facility] [address] [place] [address] * POCT glucose (11/20/2024 7:01 AM CDT) Glucose, POC 105 70 - 199 mg/dL Comment: Interpretive Data Glucose is assumed to be non-fasting. Fasting Glucose reference ranges are: 0 - 150 years: 70 mg/dL - 99 mg/dL Current interpretive data was last revised on 2014. POC Performer [id number] [facility] POC Device Number [id number] [facility] Blood 11/20/2024 7:01 AM CDT 11/20/2024 7:01 AM CDT Tavon Razo MD LAB POCT ORDERABLES - D EVICE Final Result [facility] [address] [facility] [place] [address] * (ABNORMAL) Differential, auto (11/20/2024 6:03 AM CDT) Neutrophil abs 1.31(L) 1.50 - 6.50 K/cumm Imm gran abs 0.04 0.00 - 0.10 K/cumm [facility] Lymphocyte abs 0.49(L) 0.80 - 3.30 K/cumm [facility] Monocyte abs 0.32 0.20 - 0.80 K/cumm [facility] Eosinophil abs 0.10 0.00 - 0.50 K/cumm [facility] Basophil abs 0.01 0.00 - 0.10 K/cumm [facility] Neutrophil pct 57.7 % [facility] Comment: Interpretive Data Percent cell count reference ranges are not reported, since discordance with absolute values may lead to misinterpretation of CBC data. Current Interpretive Data was last revised on 2017. Imm gran pct 1.8 % [facility] Comment: Interpretive Data Percent cell count reference ranges are not reported, since discordance with absolute values may lead to misinterpretation of CBC data. Current Interpretive Data was last revised on 2017. Lymphocyte pct 21.6 % [facility] Comment: Interpretive Data Percent cell count reference ranges are not reported, since discordance with absolute values may lead to misinterpretation of CBC data. Current Interpretive Data was last revised on 2017. Monocyte pct 14.1 % [facility] Comment: Interpretive Data Percent cell count reference ranges are not reported, since discordance with absolute values may lead to misinterpretation of CBC data. Current Interpretive Data was last revised on 2017. Eosinophil pct 4.4 % [facility] Comment: Interpretive Data Percent cell count reference ranges are not reported, since discordance with absolute values may lead to misinterpretation of CBC data. Current Interpretive Data was last revised on 2017. Basophil pct 0.4 % [facility] Comment: Interpretive Data Percent cell count reference ranges are not reported, since discordance with absolute values may lead to misinterpretation of CBC data. Current Interpretive Data was last revised on 2017. Blood 11/20/2024 6:03 AM CDT 11/20/2024 6:06 AM CDT Kenyon Martínez MD LAB BLOOD ORDERABLES Final Result [facility] [address] [facility] Department [place] [address] * (ABNORMAL) CBC with auto differential (11/20/2024 6:03 AM CDT) WBC 2.27(L) 3.80 - 9.90 K/cumm Hgb 10.3(L) 13.0 - 17.5 g/dL [facility] Hct 34.2(L) 38.9 - 50.3 % [facility] Plt 110(L) 150 - 400 K/cumm [facility] MPV 10.0 9.1 - 12.3 fL [facility] RBC 4.04(L) 4.30 - 5.80 M/cumm [facility] MCV 84.7 81.3 - 96.4 fL [facility] MCH 25.5(L) 27.1 - 33.3 pg [facility] MCHC 30.1(L) 32.3 - 35.7 g/dL [facility] RDW CV 17.3(H) 11.1 - 14.9 % [facility] RDW SD 53.7(H) 35.7 - 48.1 fL [facility] NRBC abs 0.00 0.00 - 0.01 K/cumm [facility] Blood 11/20/2024 6:03 AM CDT 11/20/2024 6:06 AM CDT Kenyon Martínez MD LAB BLOOD ORDERABLES Final Result [facility] [address] [address] [facility] [place] [address] * (ABNORMAL) aPTT (11/20/2024 6:03 AM CDT) aPTT 40(H) 28 - 38 sec Comment: Interpretive Data Heparin therapeutic range: 66.0 - 100.0 seconds. Range based on correlation with therapeutic heparin activity range of 0.3 - 0.7 Units/mL. Current interpretive data was last revised on 2023. Blood 11/20/2024 6:03 AM CDT 11/20/2024 6:06 AM CDT Kenyon Martínez MD LAB BLOOD ORDERABLES Final Result Performing Organization Address [facility] de Phone Number [facility] [address] [facility]. [facility] [place] [address] * Protime-INR (11/20/2024 6:03 AM CDT) PT 12.4 9.7 - 13.0 sec INR 1.14 0.90 - 1.20 DAVID PEOPLES Comment: Interpretive data Oral anticoagulant therapeutic ranges: Venous thromboembolism prophylaxis or treatment: 2.0-3.0 CARDIOLOGY Standard range: 2.0-3.0 High-intensity range: 2.5-3.5 Refer to indication-specific guidelines for appropriate target ranges for prosthetic heart valve replacement. Current interpretive data was last revised on 2019. Blood 11/20/2024 6:03 AM CDT 11/20/2024 6:06 AM CDT Kenyon Martínez MD LAB BLOOD ORDERABLES Final Result Performing Organization Address [facility] Co de Phone Number [facility] [address] [facility]. [facility] [place] [address] * POCT glucose (11/20/2024 4:04 AM CDT) Glucose, POC 91 70 - 199 mg/dL Comment: Interpretive Data Glucose is assumed to be non-fasting. Fasting Glucose reference ranges are: 0 - 150 years: 70 mg/dL - 99 mg/dL Current interpretive data was last revised on 2014. POC Performer [id number] DAVID [facility] POC Device Number [id number] [facility] Blood 11/20/2024 4:04 AM CDT 11/20/2024 4:04 AM CDT Tavon Razo MD LAB POCT ORDERABLES - D EVICE Final Result Performing Organization Address [facility] de Phone Number [facility] [address] [facility] [employer] [place], [place] [address] * POCT glucose (11/19/2024 11:17 PM CDT) Glucose, POC 89 70 - 199 mg/dL Comment: Interpretive Data Glucose is assumed to be non-fasting. Fasting Glucose reference ranges are: 0 - 150 years: 70 mg/dL - 99 mg/dL Current interpretive data was last revised on 2014. POC Performer [id number] [facility] POC Device Number [id number] [facility] Blood 11/19/2024 11:1 7 PM CDT 11/19/2024 11:17 PM CDT Tavon Razo MD LAB POCT ORDERABLES - D EVICE Final Result Performing Organization Address [facility] Co de Phone Number [facility] [address] [facility] [place] [address] * POCT glucose (11/19/2024 8:28 PM CDT) Glucose, POC 96 70 - 199 mg/dL Comment: Interpretive Data Glucose is assumed to be non-fasting. Fasting Glucose reference ranges are: 0 - 150 years: 70 mg/dL - 99 mg/dL Current interpretive data was last revised on 2014. POC Performer [id number] [facility] POC Device Number [id number] [facility] Blood 11/19/2024 8:28 PM CDT 11/19/2024 8:28 PM CDT us Tavon Razo MD LAB POCT ORDERABLES - D EVICE Final Result Performing Organization Address [facility] Co de Phone Number DAVID [place] [phone] [employer] [place] [address] * Urinalysis reflex to microscopic and culture Urine (11/19/2024 6:57 PM CDT) Color, ur Straw Yellow Clarity, ur Clear Clear [facility] Specific gravity, ur 1.020 1.003 - 1.030 [facility] pH, urine 6.5 [facility] Comment: Interpretive Data U rine pH is affected by diet, medications, systemic acid-base disturbances, and renal tubular function. pH may affect urinary stone formation. For example, urine pH below 6.0 may help reduce the tendency for calcium phosphate stones and pH greater than 6.0 may reduce the tendency for uric acid stone formation. Source: [facility] [employer] Current Interpretive Data was last revised on [...] and culture not met. [facility] Urine 11/19/2024 6:57 PM CDT 11/19/2024 6:59 PM CDT us Katie Jung MD LAB MICROBIOLOGY - GENERAL O RDERABLES Final Result Performing Organization Address City/[facility]/ZIP Co de Phone Number DAVID [place] [address] [address] [place] [address] * Lactate (11/19/2024 3:43 PM CDT) Lactate 1.1 0.7 - 2.0 mmol/L Blood 11/19/2024 3:43 PM CDT 11/19/2024 3:49 PM CDT Ivanna WAYNE LAB BLOOD ORDERABLES Final Result [facility] [address] [facility]. [place] [address] * CT Abdomen Pelvis W Contrast (11/19/2024 [...] it. Electronically signed by: Shabbir Jett M.D. Ivanna [facility] CT PROCEDURES Final Res ult * eGFR [...] LAB BLOOD ORDERABLES Final R esult [facility] [address] [facility] [place] [address] * (ABNORMAL) Differential, auto (11/19/2024 1:05 PM CDT) Neutrophil abs 3.80 1.50 - 6.50 K/cumm Imm gran abs 0.02 0.00 - 0.10 K/cumm [facility] Lymphocyte abs 0.55(L) 0.80 - 3.30 K/cumm [facility] Monocyte abs 0.44 0.20 - 0.80 K/cumm [facility] Eosinophil abs 0.09 0.00 - 0.50 K/cumm [facility] Basophil abs 0.02 0.00 - 0.10 K/cumm [facility] Neutrophil pct 77.3 % [facility] Comment: Interpretive Data Percent cell count reference ranges are not reported, since discordance with absolute values may lead to misinterpretation of CBC data. Current Interpretive Data was last revised on 2017. Imm gran pct 0.4 % [facility] Comment: Interpretive Data Percent cell count reference ranges are not reported, since discordance with absolute values may lead to misinterpretation of CBC data. Current Interpretive Data was last revised on 2017. Lymphocyte pct 11.2 % [facility] Comment: Interpretive Data Percent cell count reference ranges are not reported, since discordance with absolute values may lead to misinterpretation of CBC data. Current Interpretive Data was last revised on 2017. Monocyte pct 8.9 % [facility] Comment: Interpretive Data Percent cell count reference ranges are not reported, since discordance with absolute values may lead to misinterpretation of CBC data. Current Interpretive Data was last revised on 2017. Eosinophil pct 1.8 % [facility] Comment: Interpretive Data Percent cell count reference ranges are not reported, since discordance with absolute values may lead to misinterpretation of CBC data. Current Interpretive Data was last revised on 2017. Basophil pct 0.4 % [facility] Comment: Interpretive Data Percent cell count reference ranges are not reported, since discordance with absolute values may lead to misinterpretation of CBC data. Current Interpretive Data was last revised on 2017. Blood 11/19/2024 1:05 PM CDT 11/19/2024 1:09 PM CDT us Katie Jung MD LAB BLOOD ORDERABLES Final R esult [facility] [address] [facility]. Department of Laboratories [place], [place] [id number] * (ABNORMAL) CBC with auto differential (11/19/2024 1:05 PM CDT) Pathologist [facility] WBC 4.92 3.80 - 9.90 K/cumm Hgb 10.9(L) 13.0 - 17.5 g/dL [facility] Hct 36.4(L) 38.9 - 50.3 % [facility] Plt 152 150 - 400 K/cumm [facility] MPV 10.8 9.1 - 12.3 fL [facility] RBC 4.37 4.30 - 5.80 M/cumm [facility] MCV 83.3 81.3 - 96.4 fL [facility] MCH 24.9(L) 27.1 - 33.3 pg [facility] MCHC 29.9(L) 32.3 - 35.7 g/dL [facility] RDW CV 17.5(H) 11.1 - 14.9 % [facility] RDW SD 53.2(H) 35.7 - 48.1 fL [facility] NRBC abs 0.00 0.00 - 0.01 K/cumm [facility] Blood Venous blood specimen / Unknown 11/19/2024 1:05 PM CDT 11/19/2024 1:09 PM CDT Katie Jung MD LAB BLOOD ORDERABLES Final R esult Performing Organization Address City/[facility]/ZIP Co de Phone Number [facility] [address] [facility] [place] [address] * TSH (11/19/2024 1:05 PM CDT) Pathologist [facility] Thyroid Stimulating Hormone 1.90 0.30 - 4.20 mcIUnit/mL Blood 11/19/2024 1:05 PM CDT 11/19/2024 1:09 PM CDT Tavon Razo MD LAB BLOOD ORDERABLES Fi nal Result Performing Organization Address [facility] Co de Phone Number [facility] [address] [facility] [place] [address] * (ABNORMAL) Lipase (11/19/2024 1:05 PM CDT) [facility] Lipase 6(L) 10 - 99 Units/L Blood Venous blood specimen / Unknown 11/19/2024 1:05 PM CDT 11/19/2024 1:09 PM CDT Katie Jung MD LAB BLOOD ORDERABLES Final R esult Performing Organization Address [facility] Co de Phone Number [facility] [address] [facility] [employer] [place], [place] [id number] * (ABNORMAL) Hemoglobin A1c (11/19/2024 1:05 PM CDT) Hgb A1C 7.3(H) 4.0 - 5.6 % Estimated Average Glucose 163 mg/dL [facility] Comment: The ADA recommends reporting an estimated Average Glucose (eAG) with all Hemoglobin A1c results using the equation derived from a study of 507 normal and diabetic adults. Minority populations were underrepresented and children were not included. (Diabetes Care 31:9276-8496, 2008). The eAG is not equivalent to a fasting glucose. Blood 11/19/2024 1:05 PM CDT 11/19/2024 1:09 PM CDT us Katie Jung MD LAB BLOOD ORDERABLES Final R esult [facility] [address] [facility]. [place] [address] * (ABNORMAL) Lipid panel (11/19/2024 1:05 PM CDT) Cholesterol 90 30 - 199 mg/dL Comment: [...] last revised on 2018. Chol/HDL ratio 3 [facility] Blood 11/19/2024 1:05 PM CDT 11/19/2024 1:09 PM CDT Tavon Razo MD LAB BLOOD ORDERABLES Fi nal Result [facility] [address] [facility]. [place] [address] * (ABNORMAL) Comprehensive metabolic panel (11/19/2024 1:05 [...] Albumin 3.8 3.5 - 5.0 g/dL [facility] Alk phos 341(H) 40 - 130 Units/L [facility] ALT 31 7 - 55 Units/L [facility] AST 33 10 - 50 Units/L [facility] Blood 11/19/2024 1:05 PM CDT 11/19/2024 1:09 PM CDT us Katie Jung MD LAB BLOOD ORDERABLES Final R esult DAVID [facility] [address] [facility]. Department of Laboratories [place], [place] [id number] * Colonoscopy (11/11/2024 11:01 AM CDT) Anatomical Region Laterality Modality Other Narrative Procedure Note Trang Ryan MD - 11/11/2024 11:01 AM CDT ENDOSCOPY LAB Patient Name: Rah Greco Procedure Date: 11/11/2024 11:01 AM Date of : 1955 Admit Type: Outpatient Age: 69 Gender: Male Attending MD: Trang Ryan M.D. Room: [facility] ENDOSCOPY ROOM 01 Note Status: Finalized Procedure: [...] The scope was passed under direct vision.The [id number] was introduced through the anusand advanced to [...] 0 Note Initiated On: 11/11/2024 11:01 AM Trang Ryan MD ENDOSCOPY PROCEDURES Final Resu lt * Hepatitis panel, acute Blood (07/25/2024 3:22 AM [employer]) Hep A IgM Nonreactive Nonreactive Hep B core IgM Nonreactive [facility]reactive [facility] Hep C Ab Nonreactive Nonreactive [facility] Comment:Antibodies to HCV no t detected. Does NOT exclude the possibility of recent exposure to HCV. Current interpretive data was last revised on 22 HepBsAg Nonreactive Nonreactive [facility] Blood 07/25/2024 3:22 AM [employer] 07/25/2024 4:10 AM [employer] Ros Stanley MD LAB MICROBIOLOGY - GENERAL ORDERABLES Final Result [facility] Department [place] [address] * Albumin Creatinine Ratio, Urine (02/29/2024 8:27 [...] 8:27 AM CDT 02/29/2024 8:28 AM CDT Clemencia Beatty NP LAB URINE ORDERABLES Tete l Result Performing Organization Address City/[facility] Co de Phone Number [email or web address] [address] [place] [address] * PSA screen (04/16/2020 7:01 AM CDT) PSA 0.1 < OR = 4.0 ng/mL [facility] Comment: The total PSA value from this assay system is standardized against the WHO standard. The test result will be approximately 20% lower when compared to the equimolar-standardized total PSA (April Elkader). 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 Precautions (gown and gloves) - not eligible for IP review until 6 months after positive culture - Jerod QURESHI, RN 10/01/24 07/24/2024 09/20/2024 Insurance HU[employer]NA CHOICE MEDICARE PPO IDPA [facility] ADVANTAGE CON AETNA [facility] GOLD REF AETNA SENIOR SUPPLEMENT HU[employer]NA CHOICE MEDICARE PPO MEDICARE IDPA [employer] CHOICE MEDICARE PPO IDPA IDPA [employer] CHOICE MEDICARE PPO IDPA [employer]ARE HMO Advance Directives For more information, please contact: [phone] Documents on File Type Date Recorded Patient Insurance Account Executive Expl anation ADVANCE DIRECTIVE 05/22/2023 5:43 PM Claudine Ellis POWER OF DRAPERY AND UPHOLSTERY MEASURER-MEDICAL ADVANCE DIRECTIVE 04/12/2023 6:16 PM [place] R OF DRAPERY AND UPHOLSTERY MEASURER-MEDICAL ADVANCE DIRECTIVE 04/12/2023 6:09 PM [place] R OF DRAPERY AND UPHOLSTERY MEASURER-MEDICAL * Full Code (Latest Code Status on [...] Agents on File Name Relationship Healthcare Agent [facility] p Communication Claudine Greco Spouse Health Care Agent Meghan Ellis Daughter First Alternate Health Care Agent Sushant Greco Son Second Alternate Health Care Agent Care Teams 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 Protective 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 Relationship Specialty Start Date End Date Kenton Ricks MD PCP - General 08/14/16 Pebbles Nelson MD Referring Physician Cardiology 02/07/19 Aylin Russ MD [address] [place] [address] Referring Physician Pulmonary Disease 02/07/19 Maricruz Ramirez NP [address] [place] [employer] [address] [place] [address] Nurse Practitioner Cardiovascular Disease 09/25/21 Joanne Lopez, [place] Registered Nurse Pulmonary Disease 08/24/22 Ben Chahal MD PhD [address] [place] [address] [address] [place] [address] Medical Oncologist/Hematologis t Medical Oncology 10/05/22 Giovanna Alexis MD [address] [place] [address] Radiation Oncologist Radiation Oncology 03/09/23 Abby Higgins MD PhD [address] DIV IM MEDICAL ONCOLOGY, [facility] [address]A, [address]B, [address] [place] [address] Medical Oncologist/Hematologis t Medical Oncology 05/10/23 Adrian Martinez MD [address] DIV SURG TRANSPLANT, [facility] [address] [place] [address] Surgical Oncologist Surgical Oncology 05/28/23 Vera Pérez PA [address] [place] [id number] [place] [address] Physician Telephone Appointment Clerk Colon and Rectal Surgery 09/13/23 Jim Frausto MD [address] [facility] [phone] [place] [address] Surgeon Colon and Rectal Surgery 11/21/23
--- OUTSIDE RECORDS SUMMARY | 2025-02-17 00:34 | XMS_ITS ---
Author Organization [facility] Address [address] [place] [address] Care Team Providers Care Career And Technology Education Teacher Name Role Phone Kenton Ricks MD Primary Care Provider + [phone] Pebbles Nelson MD Unavailable [phone] Aylin Russ MD Unavailable [phone] Maricruz Ramirez NP Unavailable [phone] Joanne Lopez RN Unavailable Padmini Ben Walker MD PhD Unavailable [phone] Giovanna Alexis MD Unavailable Abby Higgins MD PhD Unavailable + Adrian Martinez MD Unavailable [phone] Vera Pérez Unavailable [phone] Jim Frausto MD Unavailable [phone] Active Problems Problem Noted Date Diagnosed Date [...] 08/23/2024 Assessment & Plan (08/26/2024 3:51 PM CATCHER HELPER): The patient reported left eye pain with [...] 08/11/2024 Assessment & Plan (08/26/2024 4:05 PM CATCHER HELPER): Patient developed hematemesis on 08/11 with hypotension [...] 08/04/2024 Assessment & Plan (08/22/2024 10:54 PM CATCHER HELPER): Started allopurinol this admission Moderate protein-calorie malnutrition [...] 07/16/2024 Assessment & Plan (07/20/2024 11:28 AM CATCHER HELPER): - Resulted with Nystatin Anal fissure 11/21/2023 Assessment & Plan (01/15/2025 11:15 AM CDT): -Continue prn lidocaine PA and nifedipine ointment Assessment & Plan (01/14/2025 11:42 AM CDT): -Continue prn lidocaine PA and nifedipine ointment Assessment & Plan (01/13/2025 12:04 PM CDT): -Continue prn lidocaine PA and nifedipine ointment Assessment & Plan (01/13/2025 1:06 AM CDT): -Continue prn lidocaine PA and nifedipine ointment Assessment & Plan (12/10/2024 [...] topical CCB - cannot obtain her at [facility] Assessment & Plan (11/22/2024 12:07 PM CDT): - psyllium qAM, added miralax daily - Added lidocaine jelly qid prn - Sitz baths BID - Will try to start topical CCB - cannot obtain her at [facility] Assessment & Plan (11/21/2024 11:50 AM CDT): - psyllium qAM, added miralax daily - Added lidocaine jelly qid prn - Sitz baths BID - Will try to start topical CCB - cannot obtain her at [facility] Assessment & Plan (11/20/2024 11:11 AM [...] Plan (11/24/2024 9:17 AM CDT): -CPAP at [facility] Assessment & Plan (11/23/2024 9:48 AM CDT): -CPAP at [facility] Assessment & Plan (11/22/2024 12:07 PM CDT): -CPAP at [facility] Assessment & Plan (11/21/2024 11:50 AM CDT): -CPAP at [facility] Assessment & Plan (11/20/2024 11:11 AM CDT): -CPAP at [facility] Assessment & Plan (11/20/2024 1:34 AM CDT): -CPAP at [facility] Assessment & Plan (10/15/2023 2:34 PM CDT): xCont ppv qhs Assessment & Plan (10/13/2023 2:03 PM CDT): Cont ppv qhs COPD (chronic obstructive pulmonary disease) Assessment & Plan (08/26/2024 4:00 PM CATCHER HELPER): Cont. breo ellipta, prn albuterol Iron deficiency [...] 07/25/2023 Assessment & Plan (07/26/2023 12:35 PM CATCHER HELPER): - Likely multifactorial 2/2 malignancy, recent whipple, chemotherapy, and pain - Very poor PO intake - RD c/s - Started Mirtazapine - Dietary supplementation - Increased Creon as above Malaise 07/24/2023 Assessment & Plan (07/25/2023 2:16 PM CATCHER HELPER): - RVP negative - Improving Kidney lesion 07/21/2023 Assessment & Plan (07/25/2023 2:21 PM CATCHER HELPER): - Left renal cyst noted since at [...] 07/20/2023 Assessment & Plan (07/26/2023 12:33 PM CATCHER HELPER): - Acute on chronic epigastric pain following [...] 07/09/2023 Assessment & Plan (07/24/2023 5:22 PM CATCHER HELPER): - Replace per protocol Acute hypoxemic respiratory failure due to COVID -19 06/07/2023 Assessment & Plan (06/12/2023 3:47 PM CATCHER HELPER): Presented with 3 days of fever, dry [...] 05/30/2023 Assessment & Plan (07/14/2024 12:30 PM CATCHER HELPER): History of Postoperative GI bleed. EGD 05/09/23 [...] 02/05/2023 Assessment & Plan (07/21/2023 2:06 AM CATCHER HELPER): Also has Hx of prostate cancer s/p prostatectomy. Takes gemtesa at home which is not on formulary - continue home oxybutynin and flomax Assessment & Plan (02/09/2023 3:46 PM CDT): Patient presented w/ low urine output and asymptomatic urinary retention, required straight cath in [facility], currently voiding and emptying appropriately [...] 11/21/2022 Assessment & Plan (08/26/2024 4:05 PM CATCHER HELPER): The patient presented with elevated alkaline phosphatase [...] he is scheduled MRI in December at [facility] (requires cardiac monitoring due to ICD) - he is hoping to have this done sooner. Ileus 11/21/2022 Assessment & Plan (07/20/2024 11:29 AM CATCHER HELPER): - KUB done 07/13 showing ileus without [...] 10/08/2022 Assessment & Plan (07/21/2023 2:04 AM CATCHER HELPER): Diagnosed in August 2022, now s/p course of Eliquis. Presented with trace b/l lower ext edema, b/l erythema and mild tenderness which per patient is increased from baseline. Had similar presentation last hospitalization and LE duplex 06/07 was negative - CTM and consider rescanning if persistent Assessment & Plan (06/09/2023 4:47 PM CATCHER HELPER): Hx of DVT in August 2022, he [...] 09/23/2022 Assessment & Plan (06/12/2023 3:50 PM CATCHER HELPER): - contact dermatitis? Not concerned about drug [...] to melisa skin necrosis. - transfer to [facility] for derm eval Anemia 09/22/2022 Assessment & Plan (07/26/2023 12:35 PM CATCHER HELPER): Acute on chronic. 7.4 on admission. 5 [...] negative. Assessment & Plan (06/12/2023 3:46 PM CATCHER HELPER): HGb 7, plt 94, wbc 1.4, abs [...] 09/22/2022 Assessment & Plan (07/26/2023 12:34 PM CATCHER HELPER): Has Hx of ileus. On scheduled Linzess, Miralax and PRN Senna-Docusate at home. Patient states he's been having 4-5 soft stools daily - Increased Creon as above. Bowel regimen. Assessment & Plan (06/07/2023 11:26 PM CATCHER HELPER): Continue home regimen of Linzess, Miralax and [...] (08/30/2022): Added automatically from request for surgery [id number] Assessment & Plan (10/15/2023 2:34 PM CDT): Hx of L axillary nodes on CT increased from prior study Should f/u with Dr. Chahal Assessment & Plan (10/13/2023 2:03 PM CDT): Hx of L axillary nodes on CT increased from prior study Should f/u with Dr. Chahal Assessment & Plan (07/26/2023 12:31 PM CATCHER HELPER): - s/p whipple. Follows with Dr. Chahal [...] plan to hold of next cycle of [place]/Abraxane till infectious etiology is ruled out Assessment [...] plan to hold of next cycle of [place]/Abraxane till infectious etiology is ruled out Assessment [...] surveillance Assessment & Plan (08/26/2024 4:00 PM CATCHER HELPER): s/p whipple with PV/SMV resection (04/2023) and neoadjuvant chemo (completed 08/2023). Most recent scan showed no evidence of disease recurrence Currently on surveillance with CA 19-[address] CAP every 3 months Assessment & Plan (07/10/2024 10:48 PM CATCHER HELPER): Pancreatic cancer s/p Whipple with PV/SMV resection on 04/11/2023 s/p neoadjuvant tx, On surveillance OP follow up. Assessment & Plan (06/08/2023 5:32 PM CATCHER HELPER): Pancreatic adenocarcinoma sp Whipple, now on Gemcitabine [...] 1 Assessment & Plan (08/25/2022 12:23 PM CATCHER HELPER): Recurrent UTI followed by ID with scrotal [...] 06/09/2019 Assessment & Plan (06/09/2019 12:54 PM CATCHER HELPER): He is agreeable to rescheduling the splenic MRI to further define previously incidentally discovered lesion, to better characterize this and establish follow up as necessary. Order entered. I provided Mr. Greco with the phone # to radiology to call if he does not hear back from the office by next week. Chronic diastolic (congestive) heart failure Assessment & Plan (07/14/2024 12:35 PM CATCHER HELPER): HFpEF Euvolemic, normotensive On hold diuretics for now given pt NPO on IVF for ileus, will restart once able to take in po Assessment & Plan (06/11/2023 10:01 PM CATCHER HELPER): ECHO 11/21 EF 69%, grade I diastolic [...] diet Assessment & Plan (08/24/2022 1:10 PM CATCHER HELPER): Stable, continued torsemide, spironolactone Assessment & Plan (09/24/2021 12:42 AM CDT): Patient is feeling better. states legs have decreased by half. Continue with IV lasix. Continue to monitor Cr and lytes as we diurese. Holding torsemide. Continue aldactone with hold parameters. Assessment & Plan (08/18/2018 1:16 AM CATCHER HELPER): Patient presented with increased shortness of breath [...] NPPV Assessment & Plan (08/26/2024 4:02 PM CATCHER HELPER): continue nightly CPAP Assessment & Plan (07/21/2023 6:17 AM CATCHER HELPER): Desaturations noted in the ED during sleep per on monitor while on RA (not recorded) - continue nightly BiPAP Assessment & Plan (06/07/2023 11:32 PM CATCHER HELPER): Continue nightly BiPAP Assessment & Plan (03/18/2023 [...] 8:24 AM CDT): -resume home CPAP at [facility] Assessment & Plan (09/22/2022 3:17 AM CDT): -resume home CPAP at [facility] Assessment & Plan (08/24/2022 1:08 PM CATCHER HELPER): - home CPAP machine use Assessment & Plan (09/24/2021 12:39 AM CDT): Patient has home NPPV which has been reordered. Assessment & Plan (08/18/2018 1:17 AM CATCHER HELPER): Patient with a history of of bilateral diaphragmatic paralysis with central and obstructive sleep apnea. Restart CPAP Shortness of breath at rest 08/18/2018 Assessment & Plan (08/18/2018 1:27 AM CATCHER HELPER): Patient with complex past medical history with [...] 07/26/2018 Assessment & Plan (08/26/2024 4:05 PM CATCHER HELPER): H/o vtach s/p ICD 2013 EP consulted for MRCP earlier in admission. Patient's device is conditioned for MRI. Risk stratification: standard Assessment & Plan (07/10/2024 10:38 PM CATCHER HELPER): History of ventricular tachycardia ICD in place Assessment & Plan (07/21/2023 2:11 PM CATCHER HELPER): Follows with Dr. Nelson in EP for [...] Aug Assessment & Plan (06/11/2023 9:59 PM CATCHER HELPER): Follows with Dr. Nelson in EP for history of VT s/p ICD. Denies any recent shocks, as per not there was unscheduled alarm this month due to RV lead impedance. Has outpatient appointment in August Outpatient follow up with EP Assessment & Plan (03/18/2023 1:23 AM CDT): Monitor. MRI conditional. If needs MRI, will need to go to [facility]. Assessment & Plan (02/05/2023 6:58 PM CDT): [...] ordered Assessment & Plan (08/18/2018 1:17 AM CATCHER HELPER): Last device interrogation was in July of [...] s/p shoulder surgery. Follows with Dr. Russ ([facility]) as OP. On Symbicort at home. 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 Russ - c/w Breo-Ellipta Assessment & Plan (08/18/2018 1:17 AM CATCHER HELPER): Continue with gabapentin Chronic heart failure with [...] PO Assessment & Plan (08/26/2024 4:06 PM CATCHER HELPER): Volume down on admission due to diarrhea, now appear slightly volume up, likely I/s/o transfusions and held diuretics Continue to hold home torsemide and spironolactone for now, consider gently resuming prior to discharge Assessment & Plan (07/26/2023 12:34 PM CATCHER HELPER): BLE edema with erythema noted on exam. [...] elevated at home, he can contact his PCP/race relations professor for further insulin adjustments. Assessment & Plan [...] regimen Assessment & Plan (08/26/2024 4:05 PM CATCHER HELPER): Last A1c 8.4. Home regimen: tresiba 45 units, novolog 12 units w/ breakfast and dinner, 8 units with lunch and sliding scale 1:50 > 150 Continue lantus 5 units qam + SSI Assessment & Plan (07/17/2024 2:29 PM CATCHER HELPER): - On tresiba 24U Qam and Lispro [...] hdssi Assessment & Plan (07/26/2023 12:33 PM CATCHER HELPER): Insulin dependant. Home regimen: Tresiba 42 units qam, Meal-time insulin 15u tid, SSI. Has had poor oral intake over last 2-3 weeks. He mentions his Stephen 2 sensor has been recording low sugars in 40s-50s overnight for 1 week - SSI inpatient - QID accuchecks Assessment & Plan (06/08/2023 5:39 PM CATCHER HELPER): Hgb1c 8.4% in 04/23, follows with endo [...] -SSI Assessment & Plan (08/24/2022 1:07 PM CATCHER HELPER): -Home regimen metformin + Tresiba 35 units qAM and novolog 11 units with meals plus SSI -Continue basal bolus regimen, dose reduced while inpatient -Accuchecks Assessment & Plan (09/24/2021 12:38 AM CDT): Patient on PO hypoglycemics. Monitor on SSI. Assessment & Plan (06/09/2019 12:53 PM CATCHER HELPER): Diet controlled. A1C at goal. On ARB. Follow up with ophtho as previously scheduled. Recommend statin for primary prevention. He will follow up with his PCP for this Adrenal nodule (CMS/HCC) 09/06/2015 Assessment & Plan (06/09/2019 12:49 PM CATCHER HELPER): Nodule has not grown on interim imaging. Needs low dose dexamethasone suppression test annually x 5 years since initial evaluation given propensity of some adrenal nodules to become cortisol secreting overtime. Thyroid nodule 09/06/2015 Assessment & Plan (06/09/2019 12:48 PM CATCHER HELPER): S/p FNA with benign cytology. Will repeat US in the spring to monitor biopsied thyroid nodule for growth. Multinodular goiter 05/10/2015 Hernia of abdominal wall 02/18/2015 Assessment & Plan (06/09/2019 12:54 PM CATCHER HELPER): He will follow up with Dr. 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 Higgins in medical oncology [...] 02/23/2012 Assessment & Plan (08/26/2024 4:06 PM CATCHER HELPER): continue home rosuvastatin consider resuming ASA Assessment & Plan (07/10/2024 10:44 PM CATCHER HELPER): Cath in 10/2023 nonobstructive coronary artery disease [...] asthma Assessment & Plan (07/21/2023 2:06 AM CATCHER HELPER): Follows with Dr. Nelson - Continue home Breo and PRN albuterol inhaler Assessment & Plan (06/07/2023 11:31 PM CATCHER HELPER): Follows with Dr. Nelson in pulmonary -Continue home Breo and PRN albuterol inhaler Assessment & Plan (09/25/2022 1:41 AM CDT): -Continue home inhalers. Assessment & Plan (09/22/2022 11:00 AM CDT): Continue home inhalers. Assessment & Plan (08/21/2022 4:13 AM CATCHER HELPER): -Symbicort replaced with formulary Breo Ellipta while [...] (ABRAXANE)albu min-bound PACLItaxel (ABRAXANE) 5 mg/mLatrium health ansonitabi ne (GEMZAR)gemcit abine IVPB in 250 mL [...] 08/23/2024 Assessment & Plan (08/22/2024 8:41 PM CATCHER HELPER): Fevers + O2 requirement Aug 14, subsequently found to be positive for Influenza A and Coronavirus ([id number]). 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 S/p tamiflu, Linezolid (08/15-08/18), Cefepime (08/15- 08/17), Ciprofloxacin (08/08). Currently on RA. - supportive care Dysuria 07/25/2024 08/24/2024 Assessment & Plan (08/22/2024 10:12 PM CATCHER HELPER): Now resolved. UA on admission with leuk [...] 07/25/2024 Assessment & Plan (07/29/2024 3:21 PM CATCHER HELPER): Pt reports new burning pain around left axilla that wraps to the front of his chest. Notes he had this before and area began draining pus and had a foul odor - no erythema or rash noted -Us L axilla- no signs of any fluid collection or lymphadenopathy - already on gabapentin Gastrointestinal ulcer 07/24/202408/22 Assessment & Plan (08/11/2024 8:44 PM CATCHER HELPER): - Recent admission 07/10-07/20 for abd pain. [...] 07/24/2024 Assessment & Plan (08/02/2024 11:26 AM CATCHER HELPER): Resolved - Baseline Cr 0.5. Cr on admission was 1.01 - Likely pre-renal due to diarrhea - improved with IVF Dehydration 07/24/2024 08/26/2024 Assessment & Plan (07/26/2024 12:35 PM CATCHER HELPER): - due to diarrhea - s/p 1L IVF bolus in [facility] and maintenance IVF Diarrhea 07/19/2024 08/24/2024 Assessment & Plan (08/09/2024 2:16 PM CATCHER HELPER): - P/w 1-day history of 7-8 episodes [...] resolved Assessment & Plan (07/20/2024 11:33 AM CATCHER HELPER): - Developed after resolution of ileus. - C diff negative - Increased Creon back to home dose - Imodium prn - Hold Linzess until diarrhea resolved Abdominal pain 11/09/2023 08/25/2024 Assessment & Plan (08/11/2024 8:39 PM CATCHER HELPER): Acute on chronic abdominal pain. Likely multifactorial, [...] hematemesis Assessment & Plan (07/14/2024 12:31 PM CATCHER HELPER): Hx of pancreatic cancer s/p whipple presented initially to the [facility] with abd pain , nausea [...] NSAIDs Assessment & Plan (07/10/2024 9:32 PM CATCHER HELPER): Hx of pancreatic cancer s/p whipple presented initially to the [facility] with abd pain , nausea [...] 08/24/2024 Assessment & Plan (08/11/2024 8:40 PM CATCHER HELPER): Complained chest pain at left chest while [...] 08/01/2024 Assessment & Plan (08/01/2024 2:54 PM CATCHER HELPER): -has ICD in place Assessment & Plan [...] 08/22/2024 Assessment & Plan (08/05/2024 11:42 PM CATCHER HELPER): RESOLVED. DDx include viral infection vs transient [...] prn. Assessment & Plan (07/20/2024 11:30 AM CATCHER HELPER): - Developed fever 38.4 C on 07/16 [...] of mets or infection and transferred from [facility] to [facility]. ID here with low concern for [employer]EE infection. - CT neck/soft tissue with contrast: [...] due to ICD. Plan to transfer to [facility] for further evaluation w/ possible MRI brain [...] which raise concern for an infectious syndrome -LADDERMAN swab RPP negative -check blood cultures; hold [...] 10/28/2022 Assessment & Plan (08/24/2022 1:12 PM CATCHER HELPER): Referred pancreatitis pain. 12 lead EKG shows no acute changes, baseline NSR with RBB and intrafascicular block. Trop negative. Elevated transaminase level 08/21/2022 10/28/2022 Assessment & Plan (08/24/2022 1:10 PM CATCHER HELPER): First noted to have elevated alk phos, [...] 023 Assessment & Plan (08/22/2022 2:20 PM CATCHER HELPER): Diagnosed as outpatient and started on fidaxomicin by ID 08/16/2022. Still with persistent diarrhea. -Continue fidaxomicin -ID following Pancreatic lesion 08/20/2022 10/28/2022 Overview (08/21/2022): Added automatically from request for surgery [id number] Assessment & Plan (08/24/2022 1:08 PM CATCHER HELPER): S/P EUS wit FNA confirmed adenocarcinoma. GI arranging oncology and surgical follow up as outpatient Urinary tract infection asso ciated with cystostomy catheter, initial encounter 04/09/2022 0 10/28/2022 Brugada syndrome 07/09/2020 09/10/2020 Cough in adult 06/09/2019 10/28/2022 Assessment & Plan (06/09/2019 12:52 PM CATCHER HELPER): This appears to be chronic and persist despite switching from ACEI to ARB. He will contact his anchor operator to follow up regarding this. Urinary incontinence 08/18/2018 023 Assessment & Plan (08/18/2018 1:22 AM CATCHER HELPER): Continue with Myrbetriq and vesicare Polymorphic ventricular [...] 10/28/2022 Assessment & Plan (06/09/2019 12:47 PM CATCHER HELPER): Congratulated on recent weight loss. Continue attention to diet, low carb, exercise as able. 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
--- OUTSIDE RECORDS SUMMARY | 2025-02-17 00:35 | XMS_ITS | Clinical Summary ---
Author Organization [facility] Address [address] [place] [address] Care Team Providers Care Replacer Name Role Phone Kenton Ricks MD Primary Care Provider [phone] Source Comments [facility],non-owned Affiliates and Associated Physician Practices is amultiple site organization consisting of ambulatory clinics and hospital sitesin [place], [place], [place] and [place]. This disclosure is being madepursuant to the Care Everywhere program and may not contain all information available regarding this patient. Last updated 18.[facility] [employer] Medications * Be aware that medications may [...] on file Legal Sex Male 6:18 AM VALIDATION TECHNICIAN Gender Identity Not on file Sexual Orientation Not on file Last Filed Vital Signs Vital Sign Reading Time Taken Comments Blood Pressure 126/67 07/06/2017 11:17 AM VALIDATION TECHNICIAN Pulse 60 07/06/2017 11:17 AM VALIDATION TECHNICIAN Temperature 36.4 C (97.5 F) 07/06/2017 11:17 AM VALIDATION TECHNICIAN Respiratory Rate 16 06/29/2017 12:33 PM VALIDATION TECHNICIAN Oxygen Saturation 99% 07/06/2017 11:17 AM VALIDATION TECHNICIAN Inhaled Oxygen Concentration - - Weight 115.7 kg (255 lb) 07/06/2017 11:17 AM VALIDATION TECHNICIAN Height 175.3 cm (5' 9) 07/06/2017 11:17 AM VALIDATION TECHNICIAN Body Mass Index 37.66 07/06/2017 11:17 AM VALIDATION TECHNICIAN Plan of Treatment Health Maintenance Due Date [...] age to complete this topic Care Teams Replacer Relationship Specialty Start Date End Date Kenton Ricks MD [address] [place] [address] PCP - General Family Medicine 08/20/15
--- OUTSIDE RECORDS SUMMARY | 2025-02-17 00:35 | XMS_ITS | Encounter Summary ---
Author Organization [employer] Address [address] [place] [address] Care Team Providers Care Soaking Pits Supervisor Name Role Phone Kenton Ricks MD Primary Care Provider [phone] Encounter Details Date Type Department Care Team (Late st Contact Info) Description 09/30/2001 Outpatient [facility] [address] [place] [address]. [place] [address] Anika Rowan MD NO ADDRESS ON FILE Social History Tobacco Use Types Packs/Day Years Used Date Smoking Tobacco: Never Assessed Sex and Gender Information Value Date Recorded Sex Assigned at Not on file Legal Sex Male 4:35 AM SAMPLE CLERK Gender Identity Not on file Sexual Orientation Not on file documented as of this encounter Plan of Treatment Not on file documented as of this encounter Visit Diagnoses Not on filedocumented in this encounter Care Teams Soaking Pits Supervisor Relationship Specialty Start Date End Date Kenton Ricks MD [address] [place] [id number] PCP - General Family Practice 11/15/18 documented as of this encounter
--- OUTSIDE RECORDS SUMMARY | 2025-02-17 00:35 | XMS_ITS | Encounter Summary ---
Author Organization [employer] Address [address] [place] [address] Care Team Providers Care Volunteer Services Supervisor Name Role Phone Kenton Ricks MD Primary Care Provider [phone] Encounter Details Date Type Department Care Team (Late st Contact Info) Description 12/24/2001 Outpatient [facility] [address] [place] [address]. 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 [id number] PCP - General Family Practice 11/15/18 documented as of this encounter
--- OUTSIDE RECORDS SUMMARY | 2025-02-17 00:35 | XMS_ITS | Encounter Summary ---
Author Organization [facility] Address [address] [place] [address] Phone Care Team Providers Care Party Bus Driver Name Role Phone Kenton Ricks MD Primary Care Provider + [phone] Kenton Ricks MD Primary Care Provider + [phone] Pebbles Nelson MD Unavailable [phone] Aylin Russ MD Unavailable [phone] Maricruz Ramirez NP Unavailable [phone] Joanne Lopez RN Unavailable Padmini Leatha Carter Unavailable Unavailable Ben Chahal MD PhD Unavailable +[phone] Chace Oliva MD Unavailable [phone] Giovanna Alexis MD Unavailable Taisha Suarez RN Unavailable Unavaila Sandra Aguirre MD Unavailable +[phone] Abby Higgins MD PhD Unavailable + Adrian Martinez MD Unavailable Vera Pérez Unavailable Jim Frausto MD Unavailable Анна Robert RN Unavailable [phone] Encounter Details Date Type Department Care Team (Late st Contact Info) Description 06/02/2014 Orders Only [facility] Provider, MD Max [address] [place] [address] Social History Tobacco Use Types Packs/Day Years Used Date Smoking Tobacco: Never Assessed Sex and Gender Information Value Date Recorded Sex Assigned at Not on file Legal Sex Male 12:58 AM OPERATIONS ENGINEER Gender Identity Male 11/11/2018 10:31 AM CDT Sexual Orientation Straight 06/09/2019 5: 34 PM OPERATIONS ENGINEER documented as of this encounter Plan of [...] COVID: Suspected 06/07/2023 06/07/2023 06/07/2023 12:46 PM OPERATIONS ENGINEER COVID19 06/07/2023 06/07/2023 06/22/2023 3:06 AM OPERATIONS ENGINEER COVID: Recovered Comment:Added based on recent COVID infection. 06/22/2023 06/22/2023 09/20/2023 3:05 AM C DT COVID: Suspected 07/24/2023 07/24/2023 07/24/2023 3:53 PM OPERATIONS ENGINEER Diarrhea 07/30/2023 07/30/2023 08/13/2023 3:05 AM OPERATIONS ENGINEER COVID: Suspected 08/30/2023 08/30/2023 08/30/2023 4:52 PM OPERATIONS ENGINEER COVID: Suspected 10/12/2023 10/12/2023 10/12/2023 7:57 PM CDT Rhino/Enterovirus 10/12/2023 10/12/2023 10/26/2023 3:05 AM CDT COVID: Suspected 07/10/2024 07/10/2024 07/10/2024 4:53 PM OPERATIONS ENGINEER COVID: Suspected Comment:07/16/2024 IP Review: no outstanding test, last RPP negative. Mary Tiwari RN 07/16/2024 07/16/2024 10:51 AM OPERATIONS ENGINEER COVID19 Comment:07/16/2024 IP Review: added by RN, RPP negative. Mary Tiwari RN 07/16/2024 07/16/2024 07/16/2024 10:51 AM OPERATIONS ENGINEER MRSA Comment:nasalMRSA Isolation Long Term 09/03/24 07/16/2024 08/15/2024 09/03/2024 6:[address] C. difficile suspected 07/19/2024 07/19/202407/19 2:34 PM OPERATIONS ENGINEER COVID: Suspected 07/23/2024 07/23/2024 07/23/2024 11:28 PM OPERATIONS ENGINEER C. difficile suspected 07/23/2024 07/24/202407/24 10:31 AM OPERATIONS ENGINEER Norovirus suspected 07/23/2024 07/24/2024 07/24/19 9:37 AM OPERATIONS ENGINEER VRE Comment:Contact Precautions (gown and gloves) - not eligible for IP review until 6 months after positive culture - Jerod QURESHI, CONY 10/01/24 07/24/2024 09/20/2024 COVID: Suspected 08/09/2024 08/09/2024 08/09/2024 9:40 AM OPERATIONS ENGINEER Influenza, adult Comment:08/26/2024 IP Review: pt afebrile but on antipyretics. Needs 24 hours off antipyretics and symptoms significantly improved/resolved in order for isolation to be discontinued. Mary Tiwari RN 08/15/2024 08/15/2024 08/29/2024 3:06 AM OPERATIONS ENGINEER Coronavirus, droplet 08/15/2024 08/15/202408/29/ 025 3:06 AM OPERATIONS ENGINEER C. difficile suspected 09/19/2024 09/19/202409/20 3:05 AM [...] documented as of this encounter Care Teams Party Bus Driver Relationship Specialty Start Date End Date Kenton Ricks MD PCP - General 08/14/16 Kenton Ricks MD PCP - General 09/17/08 08/13/16 Pebbles Nelson MD Referring Physician Cardiology 02/07/19 Aylin Russ MD [address] [place] [address] Referring Physician Pulmonary Disease 02/07/19 Maricruz Ramirez DEPARTMENT OF SOCIOLOGY CHAIR [address] [place] [address] Nurse Practitioner Cardiovascular Disease 09/25/21 Joanne Lopez, RN Registered Nurse Pulmonary Disease 08/24/22 Leatha Cristina RMA Surgical Prehabilitation and Readiness (SPAR) Coordinator 09/01/22 01/02/23 Ben Chahal MD PhD 10 [facility] [address] 2 [place] [address] Medical Oncologist/Basketball Coach Medical Oncology 10/05/22 Chace Oliva MD [address] [facility] [address] [place] [address] Consulting Physician Infectious Diseases 12/22/2204/01 Giovanna Alexis MD [address] [place] [address] Radiation Oncologist Radiation Oncology 03/09/23 Taisha Suarez, payroll assistant Prehabilitation and Readiness (SPAR) Coordinator General Surgery 03/20/23 04/10/23 Sandra Ma MD [address] DIV IM MEDICAL ONCOLOGY, [facility] 7A, 7B, [address] [place] [address] Consulting Physician Medical Oncology 04/25/23 05/09/23 Abby Higgins MD PhD [address] DIV IM MEDICAL ONCOLOGY, [facility] 7A, 7B, [address] [place] [address] Medical Oncologist/Basketball Coach Medical Oncology 05/10/23 Adrian Martinez MD [address] DIV SURG TRANSPLANT, [address]BDI [address] [place] [address] Surgical Oncologist Surgical Oncology 05/28/23 Vera Pérez PA [address] [id number] [place] [address] Physician Sales Program Manager Colon and Rectal Surgery 09/13/23 Jim Frausto MD [address] [facility] [phone] [place] [address] Surgeon Colon and Rectal Surgery 11/21/23 Анна Robert, RN 45[address] [facility] [address] [place] [address] SHOP Outpatient Insole Tack Puller Hand 09/29/24 10/01/24 documented as of this encounter
--- OUTSIDE RECORDS SUMMARY | 2025-02-17 00:35 | XMS_ITS | Encounter Summary ---
Author Organization [facility] Address [address] [place] [address] Phone Care Team Providers Care Career Development Counselor Name Role Phone Kenton Ricks MD Primary Care Provider + [phone] Kenton Ricks MD Primary Care Provider + [phone] Pebbles Nelson MD Unavailable [phone] Aylin Russ MD Unavailable [phone] Maricruz Ramirez NP Unavailable [phone] Joanne Lopez RN Unavailable Padmini Leatha Carter Unavailable Unavailable Ben Chahal MD PhD Unavailable [phone] Chace Oliva MD Unavailable [phone] Giovanna Alexis MD Unavailable Taisha Suarez RN Unavailable Unavaila Sandra Aguirre MD Unavailable [phone] Abby Higgins MD PhD Unavailable + Adrian Martinez MD Unavailable [phone] Vera Pérez Unavailable [phone] Jmi Frausto MD Unavailable [phone] Анна Robert RN Unavailable [phone] Encounter Details Date Type Department Care Team (Late st Contact Info) Description 05/14/2015 Orders Only [facility] Provider, MD Max [address] [place] [address] Social History Tobacco Use Types Packs/Day Years Used Date Smoking Tobacco: Never Assessed Sex and Gender Information Value Date Recorded Sex Assigned at Not on file Legal Sex Male 12:58 AM APPEALS WRITER Gender Identity Male 11/11/2018 10:31 AM CDT Sexual Orientation Straight 06/09/2019 5: 34 PM APPEALS WRITER documented as of this encounter Plan of [...] COVID: Suspected 06/07/2023 06/07/2023 06/07/2023 12:46 PM APPEALS WRITER COVID19 06/07/2023 06/07/2023 06/22/2023 3:06 AM APPEALS WRITER COVID: Recovered Comment:Added based on recent COVID infection. 06/22/2023 06/22/2023 09/20/2023 3:05 AM C DT COVID: Suspected 07/24/2023 07/24/2023 07/24/2023 3:53 PM APPEALS WRITER Diarrhea 07/30/2023 07/30/2023 08/13/2023 3:05 AM APPEALS WRITER COVID: Suspected 08/30/2023 08/30/2023 08/30/2023 4:52 PM APPEALS WRITER COVID: Suspected 10/12/2023 10/12/2023 10/12/2023 7:57 PM CDT Rhino/Enterovirus 10/12/2023 10/12/2023 10/26/2023 3:05 AM CDT COVID: Suspected 07/10/2024 07/10/2024 07/10/2024 4:53 PM APPEALS WRITER COVID: Suspected Comment:07/16/2024 IP Review: no outstanding test, last RPP negative. Mary Tiwari RN 07/16/2024 07/16/2024 10:51 AM APPEALS WRITER COVID19 Comment:07/16/2024 IP Review: added by RN, RPP negative. Mary Tiwari RN 07/16/2024 07/16/2024 07/16/2024 10:51 AM APPEALS WRITER MRSA Comment:nasalMRSA Isolation Fdc 09/03/24 07/16/2024 08/15/2024 09/03/2024 6:[address] C. difficile suspected 07/19/2024 07/19/202407/19 2:34 PM APPEALS WRITER COVID: Suspected 07/23/2024 07/23/2024 07/23/2024 11:28 PM APPEALS WRITER C. difficile suspected 07/23/2024 07/24/202407/24 10:31 AM APPEALS WRITER Norovirus suspected 07/23/2024 07/24/2024 07/24/19 9:37 AM APPEALS WRITER VRE Comment:Contact Precautions (gown and gloves) - not eligible for IP review until 6 months after positive culture - Jerod QURESHI, CONY 10/01/24 07/24/2024 09/20/2024 COVID: Suspected 08/09/2024 08/09/2024 08/09/2024 9:40 AM APPEALS WRITER Influenza, adult Comment:08/26/2024 IP Review: pt afebrile but on antipyretics. Needs 24 hours off antipyretics and symptoms significantly improved/resolved in order for isolation to be discontinued. Mary Tiwari RN 08/15/2024 08/15/2024 08/29/2024 3:06 AM APPEALS WRITER Coronavirus, droplet 08/15/2024 08/15/202408/29/ 025 3:06 AM APPEALS WRITER C. difficile suspected 09/19/2024 09/19/202409/20 3:05 AM [...] documented as of this encounter Care Teams Career Development Counselor Relationship Specialty Start Date End Date Kenton Ricks MD PCP - General 08/14/16 Kenton Ricks MD PCP - General 09/17/08 08/13/16 Pebbles Nelson MD Referring Physician Cardiology 02/07/19 Aylin Russ MD [address] [place] [address] Referring Physician Pulmonary Disease 02/07/19 Maricruz Ramirez BUSINESS SERVICES CLERK [address] [place] [address] Nurse Practitioner Cardiovascular Disease 09/25/21 Joanne Lopez, RN Registered Nurse Pulmonary Disease 08/24/22 Leatha Cristina RMA Surgical Prehabilitation and Readiness (SPAR) Coordinator 09/01/22 01/02/23 Ben Chahal MD PhD 10 [facility] # 2 [place] [address] Medical Oncologist/Licensed Massage Practitioner Medical Oncology 10/05/22 Chace Oliva MD [address] [facility] [address] [place] [address] Consulting Physician Infectious Diseases 12/22/2204/01 Giovanna Alexis MD [address] [place] [address] Radiation Oncologist Radiation Oncology 03/09/23 aTisha Suarez, hiv/aids care nurse Prehabilitation and Readiness (SPAR) Coordinator General Surgery 03/20/23 04/10/23 Sandra Ma MD [address] DIV IM MEDICAL ONCOLOGY, [facility] 7A, 7B, [address]C [place] [address] Consulting Physician Medical Oncology 04/25/23 05/09/23 Abby Higgins MD PhD [address] DIV IM MEDICAL ONCOLOGY, [facility] 7A, 7B, [address] [place] [address] Medical Oncologist/Licensed Massage Practitioner Medical Oncology 05/10/23 Adrian Martinez MD [address] DIV SURG TRANSPLANT, [address] [place] [address] Surgical Oncologist Surgical Oncology 05/28/23 Vera Pérez PA [address] [phone] [place] [address] Physician Tile Molder Colon and Rectal Surgery 09/13/23 Jim Frausto MD [address] [facility] [phone] [place] [address] Surgeon Colon and Rectal Surgery 11/21/23 Анна Robert, RN [address] [facility] [address] [place] [address] SHOP Outpatient Telesales Representative 09/29/24 10/01/24 documented as of this encounter
--- OUTSIDE RECORDS SUMMARY | 2025-02-17 00:35 | XMS_ITS | Clinical Summary ---
Author Organization [facility] Address [address] [place] [address] Care Team Providers Care Horizontal Resaw Operator Name Role Phone Kenton Ricks MD Primary Care Provider [phone] Allergies Active Allergy Reactions Criticality Noted Date [...] on file Legal Sex Male 4:35 AM AUGER MACHINE OFFBEARER Gender Identity Not on file Sexual Orientation [...] BS BLUE ACCESS/TRUE BLUE PPO Care Teams Horizontal Resaw Operator Relationship Specialty Start Date End Date Kenton Ricks MD [address] [place] [address] PCP - General Family Practice 11/15/18
--- OUTSIDE RECORDS SUMMARY | 2025-02-17 00:35 | XMS_ITS | Encounter Summary ---
Author Organization [facility] Address [address] [place] [address] Phone Care Team Providers Care Security Site Supervisor Name Role Phone Kenton Ricks MD Primary Care Provider + [phone] Kenton Ricks MD Primary Care Provider + [phone] Pebbles Nelson MD Unavailable [phone] Aylin Russ MD Unavailable [phone] Maricruz Ramirez NP Unavailable [phone] Joanne Lopez RN Unavailable Padmini Leatha Carter Unavailable Unavailable Ben Chahal MD PhD Unavailable [phone] Chace Oliva MD Unavailable [phone] Giovanna Alexis MD Unavailable Taisha Suarez RN Unavailable Unavaila Sandra Aguirre MD Unavailable [phone] Abby Higgins MD PhD Unavailable + Adrian Martinez MD Unavailable Vera Pérez Unavailable [phone] Jim Frausto MD Unavailable Анна Robert RN Unavailable [phone] Encounter Details Date Type Department Care Team (Late st Contact Info) Description 11/30/2014 Orders Only [facility] Provider, MD Max [address] [place] [address] Social History Tobacco Use Types Packs/Day Years Used Date Smoking Tobacco: Never Assessed Sex and Gender Information Value Date Recorded Sex Assigned at Not on file Legal Sex Male 12:58 AM FILLING ROOM OPERATOR Gender Identity Male 11/11/2018 10:31 AM CDT Sexual Orientation Straight 06/09/2019 5: 34 PM FILLING ROOM OPERATOR documented as of this encounter Plan [...] COVID: Suspected 06/07/2023 06/07/2023 06/07/2023 12:46 PM FILLING ROOM OPERATOR COVID19 06/07/2023 06/07/2023 06/22/2023 3:06 AM FILLING ROOM OPERATOR COVID: Recovered Comment:Added based on recent COVID infection. 06/22/2023 06/22/2023 09/20/2023 3:05 AM C DT COVID: Suspected 07/24/2023 07/24/2023 07/24/2023 3:53 PM FILLING ROOM OPERATOR Diarrhea 07/30/2023 07/30/2023 08/13/2023 3:05 AM FILLING ROOM OPERATOR COVID: Suspected 08/30/2023 08/30/2023 08/30/2023 4:52 PM FILLING ROOM OPERATOR COVID: Suspected 10/12/2023 10/12/2023 10/12/2023 7:57 PM CDT Rhino/Enterovirus 10/12/2023 10/12/2023 10/26/2023 3:05 AM CDT COVID: Suspected 07/10/2024 07/10/2024 07/10/2024 4:53 PM FILLING ROOM OPERATOR COVID: Suspected Comment:07/16/2024 IP Review: no outstanding test, last RPP negative. Mary Tiwari RN 07/16/2024 07/16/2024 10:51 AM FILLING ROOM OPERATOR COVID19 Comment:07/16/2024 IP Review: added by RN, RPP negative. Mary Tiwari RN 07/16/2024 07/16/2024 07/16/2024 10:51 AM FILLING ROOM OPERATOR MRSA Comment:nasalMRSA Isolation Prison 09/03/24 07/16/2024 08/15/2024 09/03/2024 6:[address] C. difficile suspected 07/19/2024 07/19/202407/19 2:34 PM FILLING ROOM OPERATOR COVID: Suspected 07/23/2024 07/23/2024 07/23/2024 11:28 PM FILLING ROOM OPERATOR C. difficile suspected 07/23/2024 07/24/202407/24 10:31 AM FILLING ROOM OPERATOR Norovirus suspected 07/23/2024 07/24/2024 07/24/19 9:37 AM FILLING ROOM OPERATOR VRE Comment:Contact Precautions (gown and gloves) - not eligible for IP review until 6 months after positive culture - Jerod QURESHI, CONY 10/01/24 07/24/2024 09/20/2024 COVID: Suspected 08/09/2024 08/09/2024 08/09/2024 9:40 AM FILLING ROOM OPERATOR Influenza, adult Comment:08/26/2024 IP Review: pt afebrile but on antipyretics. Needs 24 hours off antipyretics and symptoms significantly improved/resolved in order for isolation to be discontinued. Mary Tiwari RN 08/15/2024 08/15/2024 08/29/2024 3:06 AM FILLING ROOM OPERATOR Coronavirus, droplet 08/15/2024 08/15/202408/29/ 025 3:06 AM FILLING ROOM OPERATOR C. difficile suspected 09/19/2024 09/19/202409/20 3:05 [...] documented as of this encounter Care Teams Security Site Supervisor Relationship Specialty Start Date End Date Kenton Ricks MD PCP - General 08/14/16 Kenton Ricks MD PCP - General 09/17/08 08/13/16 Pebbles Nelson MD Referring Physician Cardiology 02/07/19 Aylin Russ MD [address] [place] [address] Referring Physician Pulmonary Disease 02/07/19 Maricruz Ramirez MANAGER GARDEN [address] [place] [address] Nurse Practitioner Cardiovascular Disease 09/25/21 Joanne Lopez, RN Registered Nurse Pulmonary Disease 08/24/22 Leatha Cristina RMA Surgical Prehabilitation and Readiness (SPAR) Coordinator 09/01/22 01/02/23 Ben Chahal MD PhD 10 [facility] # 2 [place] [address] Medical Oncologist/Helper [employer] Medical Oncology 10/05/22 Chace Oliva MD [address] [facility] [address] [place] [address] Consulting Physician Infectious Diseases 12/22/2204/01 Giovanna Alexis MD [address] [place] [address] Radiation Oncologist Radiation Oncology 03/09/23 Taisha Suarez, crts Prehabilitation and Readiness (SPAR) Coordinator General Surgery 03/20/23 04/10/23 Sandra Ma MD [address] DIV IM MEDICAL ONCOLOGY, [facility] 7A, 7B, [address] [place] [address] Consulting Physician Medical Oncology 04/25/23 05/09/23 Abby Higgins MD PhD [address] DIV IM MEDICAL ONCOLOGY, [facility] 7A, 7B, [address] [place] [address] Medical Oncologist/Helper [employer] Medical Oncology 05/10/23 Adrian Martinez MD [address] DIV SURG TRANSPLANT, [address]I [address] [place] [address] Surgical Oncologist Surgical Oncology 05/28/23 Vera Pérez PA [address] [phone] [place] [address] Physician Filling Operator Colon and Rectal Surgery 09/13/23 Jim Frausto MD [address] [facility] [phone] [place] [address] Surgeon Colon and Rectal Surgery 11/21/23 Анна Robert, RN 45[address] [facility] [address] [place] [address] SHOP Outpatient Expense Clerk 09/29/24 10/01/24 documented as of this encounter
--- OUTSIDE RECORDS SUMMARY | 2025-02-17 00:35 | XMS_ITS | Encounter Summary ---
Author Organization [facility] Address [address] [place] [address] Phone Care Team Providers Care Life Enrichment Specialist Name Role Phone Kenton Ricks MD Primary Care Provider + [phone] Pebbles Nelson MD Unavailable [phone] Aylin Russ MD Unavailable [phone] Maricruz Ramirez NP Unavailable [phone] Joanne Lopez RN Unavailable Padmini Leatha Carter Unavailable Unavailable Ben Chahal MD PhD Unavailable [phone] Chace Oliva MD Unavailable [phone] Giovanna Alexis MD Unavailable Taisha Suarez RN Unavailable Unavaila Sandra Aguirre MD Unavailable [phone] Abby Higgins MD PhD Unavailable + Adrian Martinez MD Unavailable [phone] Vera Pérez Unavailable [phone] Jim Frausto MD Unavailable [phone] Анна Robert RN Unavailable [phone] Encounter Details Date Type Department Care Team [...] How often [facility] you attend [facility] services? More than 4 times per year 10/17/2021 Do you belong to any clubs o r organizations such as islam groups, unions, fraternal or athletic groups, or [...] place to sleep or slept in a long term (including now)? No 10/17/2021 Sex and Gender Information Value Date Recorded Sex Assigned at Not on file Legal Sex Male 12:58 AM CARDIOGRAPHER Gender Identity Male 11/11/2018 10:31 AM CDT Sexual Orientation Straight 06/09/2019 5: 34 PM CARDIOGRAPHER documented as of this encounter Plan of [...] COVID: Suspected 06/07/2023 06/07/2023 06/07/2023 12:46 PM CARDIOGRAPHER COVID19 06/07/2023 06/07/2023 06/22/2023 3:06 AM CARDIOGRAPHER COVID: Recovered Comment:Added based on recent COVID infection. 06/22/2023 06/22/2023 09/20/2023 3:05 AM C DT COVID: Suspected 07/24/2023 07/24/2023 07/24/2023 3:53 PM CARDIOGRAPHER Diarrhea 07/30/2023 07/30/2023 08/13/2023 3:05 AM CARDIOGRAPHER COVID: Suspected 08/30/2023 08/30/2023 08/30/2023 4:52 PM CARDIOGRAPHER COVID: Suspected 10/12/2023 10/12/2023 10/12/2023 7:57 PM CDT Rhino/Enterovirus 10/12/2023 10/12/2023 10/26/2023 3:05 AM CDT COVID: Suspected 07/10/2024 07/10/2024 07/10/2024 4:53 PM CARDIOGRAPHER COVID: Suspected Comment:07/16/2024 IP Review: no outstanding test, last RPP negative. Mary Tiwari RN 07/16/2024 07/16/2024202 5 10:51 AM CARDIOGRAPHER COVID19 Comment:07/16/2024 IP Review: added by CONY, CLAUDIO negative. Mary Tiwari RN 07/16/2024 07/16/2024 07/16/2024 10:51 AM CARDIOGRAPHER MRSA Comment:nasalMRSA Isolation Long Term 09/03/24 07/16/2024 08/15/2024 09/03/2024 6:[address] C. difficile suspected 07/19/2024 07/19/202407/19 2:34 PM CARDIOGRAPHER COVID: Suspected 07/23/2024 07/23/2024 07/23/2024 11:28 PM CARDIOGRAPHER C. difficile suspected 07/23/2024 07/24/202407/24 10:31 AM CARDIOGRAPHER Norovirus suspected 07/23/2024 07/24/2024 07/24/19 9:37 AM CARDIOGRAPHER VRE Comment:Contact Precautions (gown and gloves) - not eligible for IP review until 6 months after positive culture - Jerod QURESHI, CONY 10/01/24 07/24/2024 09/20/2024 COVID: Suspected 08/09/2024 08/09/2024 08/09/2024 9:40 AM CARDIOGRAPHER Influenza, adult Comment:08/26/2024 IP Review: pt afebrile but on antipyretics. Needs 24 hours off antipyretics and symptoms significantly improved/resolved in order for isolation to be discontinued. Mary Tiwari RN 08/15/2024 08/15/2024 08/29/2024 3:06 AM CARDIOGRAPHER Coronavirus, droplet 08/15/2024 08/15/2024 025 3:06 AM CARDIOGRAPHER C. difficile suspected 09/19/2024 09/19/202409/20 3:05 AM [...] documented as of this encounter Care Teams Life Enrichment Specialist Relationship Specialty Start Date End Date Kenton Ricks MD PCP - General 08/14/16 Pebbles Nelson MD Referring Physician Cardiology 02/07/19 Aylin Russ MD 45[address] [facility] [address] [place] [address] Referring Physician Pulmonary Disease 02/07/19 Maricruz Ramirez NP [address] [facility] [address] [place] [address] Nurse Practitioner Cardiovascular Disease 09/25/21 Joanne Lopez, CONY Registered Nurse Pulmonary Disease 08/24/22 Leatha Cristina RMA Surgical Prehabilitation and Readiness (SPAR) Coordinator 09/01/22 01/02/23 Ben Chahal MD PhD 10 [facility] # 2 [place] [address] Medical Oncologist/Work Ticket Distributor Medical Oncology 10/05/22 Chace Oliva MD [address] [facility] [address] [place] [address] Consulting Physician Infectious Diseases 12/22/2204/01 Giovanna Alexis MD [address] [place] [address] Radiation Oncologist Radiation Oncology 03/09/23 Taisha Suarez RN Surgical Prehabilitation and Readiness (SPAR) Coordinator General Surgery 03/20/23 04/10/23 Sandra Ma MD [address] DIV IM MEDICAL ONCOLOGY, [facility] 7A, 7B, [address]C [place] [address] Consulting Physician Medical Oncology 04/25/23 05/09/23 Abby Higgins MD PhD [address] DIV IM MEDICAL ONCOLOGY, [facility] 7A, 7B, [address] [place] [address] Medical Oncologist/Work Ticket Distributor Medical Oncology 05/10/23 Adrian Martinez MD [address] DIV SURG TRANSPLANT, [facility] [address] [place] [address] Surgical Oncologist Surgical Oncology 05/28/23 Vera Pérez PA [address] [place] [phone] [place] [address] Physician Wall To Wall Carpet Installer Colon and Rectal Surgery 09/13/23 Jim Frausto MD [address] [facility] [phone] [place] [address] Surgeon Colon and Rectal Surgery 11/21/23 Анна Robert, RN 4590 [facility] [address] [place], [place] [address] SHOP Outpatient Drywall Hanger 09/29/24 10/01/24 documented as of this encounter
--- OUTSIDE RECORDS SUMMARY | 2025-02-17 00:35 | XMS_ITS | Encounter Summary ---
Author Organization [facility] Address [address] [place] [address] Phone Care Team Providers Care Restaurant Hostess Name Role Phone Kenton Ricks MD Primary Care Provider + [phone] Kenton Ricks MD Primary Care Provider + [phone] Pebbles Nelson MD Unavailable [phone] Aylin Russ MD Unavailable [phone] Maricruz Ramirez NP Unavailable [phone] Joanne Lopez RN Unavailable Padmini Leatha Carter Unavailable Unavailable Ben Chahal MD PhD Unavailable [phone] Chace Oliva MD Unavailable [phone] Giovanna Alexis MD Unavailable Taisha Suarez RN Unavailable Unavaila Sandra Aguirre MD Unavailable [phone] Abby Higgins MD PhD Unavailable + Adrian Martinez MD Unavailable Vera Pérez Unavailable [phone] Jim Frausto MD Unavailable Анна Robert RN Unavailable [phone] Encounter Details Date Type Department Care Team (Late st Contact Info) Description 02/20/2014 Orders Only [facility] Provider, MD Max [address] [place] [address] Social History Tobacco Use Types Packs/Day Years Used Date Smoking Tobacco: Never Assessed Sex and Gender Information Value Date Recorded Sex Assigned at Not on file Legal Sex Male 12:58 AM PIT CRANE OPERATOR Gender Identity Male 11/11/2018 10:31 AM CDT Sexual Orientation Straight 06/09/2019 5: 34 PM PIT CRANE OPERATOR documented as of this encounter Plan [...] COVID: Suspected 06/07/2023 06/07/2023 06/07/2023 12:46 PM PIT CRANE OPERATOR COVID19 06/07/2023 06/07/2023 06/22/2023 3:06 AM PIT CRANE OPERATOR COVID: Recovered Comment:Added based on recent COVID infection. 06/22/2023 06/22/2023 09/20/2023 3:05 AM C DT COVID: Suspected 07/24/2023 07/24/2023 07/24/2023 3:53 PM PIT CRANE OPERATOR Diarrhea 07/30/2023 07/30/2023 08/13/2023 3:05 AM PIT CRANE OPERATOR COVID: Suspected 08/30/2023 08/30/2023 08/30/2023 4:52 PM PIT CRANE OPERATOR COVID: Suspected 10/12/2023 10/12/2023 10/12/2023 7:57 PM CDT Rhino/Enterovirus 10/12/2023 10/12/2023 10/26/2023 3:05 AM CDT COVID: Suspected 07/10/2024 07/10/2024 07/10/2024 4:53 PM PIT CRANE OPERATOR COVID: Suspected Comment:07/16/2024 IP Review: no outstanding test, last RPP negative. Mary Tiwari RN 07/16/2024 07/16/2024 10:51 AM PIT CRANE OPERATOR COVID19 Comment:07/16/2024 IP Review: added by RN, RPP negative. Mary Tiwari RN 07/16/2024 07/16/2024 07/16/2024 10:51 AM PIT CRANE OPERATOR MRSA Comment:nasalMRSA Isolation Fdc 09/03/24 07/16/2024 08/15/2024 09/03/2024 6:[address] C. difficile suspected 07/19/2024 07/19/202407/19 2:34 PM PIT CRANE OPERATOR COVID: Suspected 07/23/2024 07/23/2024 07/23/2024 11:28 PM PIT CRANE OPERATOR C. difficile suspected 07/23/2024 07/24/202407/24 10:31 AM PIT CRANE OPERATOR Norovirus suspected 07/23/2024 07/24/2024 07/24/19 9:37 AM PIT CRANE OPERATOR VRE Comment:Contact Precautions (gown and gloves) - not eligible for IP review until 6 months after positive culture - Jerod QURESHI, CONY 10/01/24 07/24/2024 09/20/2024 COVID: Suspected 08/09/2024 08/09/2024 08/09/2024 9:40 AM PIT CRANE OPERATOR Influenza, adult Comment:08/26/2024 IP Review: pt afebrile but on antipyretics. Needs 24 hours off antipyretics and symptoms significantly improved/resolved in order for isolation to be discontinued. Mary Tiwari RN 08/15/2024 08/15/2024 08/29/2024 3:06 AM PIT CRANE OPERATOR Coronavirus, droplet 08/15/2024 08/15/202408/29/ 025 3:06 AM PIT CRANE OPERATOR C. difficile suspected 09/19/2024 09/19/202409/20 3:05 [...] documented as of this encounter Care Teams Restaurant Hostess Relationship Specialty Start Date End Date Kenton Ricks MD PCP - General 08/14/16 Kenton Ricks MD PCP - General 09/17/08 08/13/16 Pebbles Nelson MD Referring Physician Cardiology 02/07/19 Aylin Russ MD [address] [place] [address] Referring Physician Pulmonary Disease 02/07/19 Maricruz Ramirez BATTERY VENT PLUG INSERTER [address] [place] [address] Nurse Practitioner Cardiovascular Disease 09/25/21 Joanne Lopez, RN Registered Nurse Pulmonary Disease 08/24/22 Leatha Cristina RMA Surgical Prehabilitation and Readiness (SPAR) Coordinator 09/01/22 01/02/23 Ben Chahal MD PhD 10 [facility] # 2 [place] [address] Medical Oncologist/Clin Asst Medical Oncology 10/05/22 Chace Oliva MD [address] [facility] [address] [place] [address] Consulting Physician Infectious Diseases 12/22/2204/01 Giovanna Alexis MD [address] [place] [address] Radiation Oncologist Radiation Oncology 03/09/23 Taisha Suarez, emergency management system director Prehabilitation and Readiness (SPAR) Coordinator General Surgery 03/20/23 04/10/23 Sandra Ma MD [address] DIV IM MEDICAL ONCOLOGY, [facility] 7A, 7B, 7C [place] [address] Consulting Physician Medical Oncology 04/25/23 05/09/23 Abby Higgins MD PhD [address] DIV IM MEDICAL ONCOLOGY, [facility] 7A, 7B, [address]C [place] [address] Medical Oncologist/Clin Asst Medical Oncology 05/10/23 Adrian Martinez MD [address] DIV SURG TRANSPLANT, [address] [place] [address] Surgical Oncologist Surgical Oncology 05/28/23 Vera Pérez PA [address] [place] [phone] [place] [address] Physician Auto Mechanics Teacher Colon and Rectal Surgery 09/13/23 Jim Frausto MD [address] [facility] [phone] [place] [address] Surgeon Colon and Rectal Surgery 11/21/23 Анна Robert, RN 45[address] [facility] [address] [place] [address] SHOP Outpatient It Programmer Analyst 09/29/24 10/01/24 documented as of this encounter
--- OUTSIDE RECORDS SUMMARY | 2025-02-17 00:35 | XMS_ITS | Encounter Summary ---
Author Organization [facility] Address [address] [place] [address] Phone Care Team Providers Care Carpet Weaver Name Role Phone Kenton Ricks MD Primary Care Provider + [phone] Kenton Ricks MD Primary Care Provider + [phone] Pebbles Nelson MD Unavailable [phone] Aylin Russ MD Unavailable [phone] Maricruz Ramirez NP Unavailable [phone] Joanne Lopez RN Unavailable Padmini Leatha Carter Unavailable Unavailable Ben Chahal MD PhD Unavailable [phone] Chace Oliva MD Unavailable [phone] Giovanna Alexis MD Unavailable Taisha Suarez RN Unavailable Unavaila Sandra Aguirre MD Unavailable [phone] Abby Higgins MD PhD Unavailable + Adrian aMrtinez MD Unavailable Vera Pérez Unavailable Jim Frausto MD Unavailable [phone] Анна Robert RN Unavailable [phone] Encounter Details Date Type Department Care Team (Late st Contact Info) Description 08/18/2014 Orders Only [facility] Provider, MD Max [address] [place] [address] Social History Tobacco Use Types Packs/Day Years Used Date Smoking Tobacco: Never Assessed Sex and Gender Information Value Date Recorded Sex Assigned at Not on file Legal Sex Male 12:58 AM TRACK REPAIR LABORER Gender Identity Male 11/11/2018 10:31 AM CDT Sexual Orientation Straight 06/09/2019 5: 34 PM TRACK REPAIR LABORER documented as of this encounter Plan of [...] COVID: Suspected 06/07/2023 06/07/2023 06/07/2023 12:46 PM TRACK REPAIR LABORER COVID19 06/07/2023 06/07/2023 06/22/2023 3:06 AM TRACK REPAIR LABORER COVID: Recovered Comment:Added based on recent COVID infection. 06/22/2023 06/22/2023 09/20/2023 3:05 AM C DT COVID: Suspected 07/24/2023 07/24/2023 07/24/2023 3:53 PM TRACK REPAIR LABORER Diarrhea 07/30/2023 07/30/2023 08/13/2023 3:05 AM TRACK REPAIR LABORER COVID: Suspected 08/30/2023 08/30/2023 08/30/2023 4:52 PM TRACK REPAIR LABORER COVID: Suspected 10/12/2023 10/12/2023 10/12/2023 7:57 PM CDT Rhino/Enterovirus 10/12/2023 10/12/2023 10/26/2023 3:05 AM CDT COVID: Suspected 07/10/2024 07/10/2024 07/10/2024 4:53 PM TRACK REPAIR LABORER COVID: Suspected Comment:07/16/2024 IP Review: no outstanding test, last RPP negative. Mary Tiwari RN 07/16/2024 07/16/2024 10:51 AM TRACK REPAIR LABORER COVID19 Comment:07/16/2024 IP Review: added by RN, RPP negative. Mary Tiwari RN 07/16/2024 07/16/2024 07/16/2024 10:51 AM TRACK REPAIR LABORER MRSA Comment:nasalMRSA Isolation Custodial 09/03/24 07/16/2024 08/15/2024 09/03/2024 6:[address] C. difficile suspected 07/19/2024 07/19/202407/19 2:34 PM TRACK REPAIR LABORER COVID: Suspected 07/23/2024 07/23/2024 07/23/2024 11:28 PM TRACK REPAIR LABORER C. difficile suspected 07/23/2024 07/24/202407/24 10:31 AM TRACK REPAIR LABORER Norovirus suspected 07/23/2024 07/24/2024 07/24/19 9:37 AM TRACK REPAIR LABORER VRE Comment:Contact Precautions (gown and gloves) - not eligible for IP review until 6 months after positive culture - Jerod QURESHI, CONY 10/01/24 07/24/2024 09/20/2024 COVID: Suspected 08/09/2024 08/09/2024 08/09/2024 9:40 AM TRACK REPAIR LABORER Influenza, adult Comment:08/26/2024 IP Review: pt afebrile but on antipyretics. Needs 24 hours off antipyretics and symptoms significantly improved/resolved in order for isolation to be discontinued. Mary Tiwari RN 08/15/2024 08/15/2024 08/29/2024 3:06 AM TRACK REPAIR LABORER Coronavirus, droplet 08/15/2024 08/15/202408/29/ 025 3:06 AM TRACK REPAIR LABORER C. difficile suspected 09/19/2024 09/19/202409/20 3:05 AM [...] documented as of this encounter Care Teams Carpet Weaver Relationship Specialty Start Date End Date Kenton Ricks MD PCP - General 08/14/16 Kenton Ricks MD PCP - General 09/17/08 08/13/16 Pebbles Nelson MD Referring Physician Cardiology 02/07/19 Aylin Russ MD [address] [place] [address] Referring Physician Pulmonary Disease 02/07/19 Maricruz Ramirez GENERAL LABOR FORKLIFT OPERATOR [address] [place] [address] Nurse Practitioner Cardiovascular Disease 09/25/21 Joanne Lopez, RN Registered Nurse Pulmonary Disease 08/24/22 Leatha Cristina RMA Surgical Prehabilitation and Readiness (SPAR) Coordinator 09/01/22 01/02/23 Ben Chahal MD PhD 10 [facility] # 2 [place] [address] Medical Oncologist/Bindery Cutter Operator Medical Oncology 10/05/22 Chace Oliva MD [address] [facility] [address] [place] [address] Consulting Physician Infectious Diseases 12/22/2204/01 Giovanna Alexis MD [address] [place] [address] Radiation Oncologist Radiation Oncology 03/09/23 Taisha Suarez, burial vault setter Prehabilitation and Readiness (SPAR) Coordinator General Surgery 03/20/23 04/10/23 Sandra Ma MD [address] DIV IM MEDICAL ONCOLOGY, [facility] 7A, 7B, [address]C [place] [address] Consulting Physician Medical Oncology 04/25/23 05/09/23 Abby Higgins MD PhD [address] DIV IM MEDICAL ONCOLOGY, [facility] 7A, 7B, [address] [place] [address] Medical Oncologist/Bindery Cutter Operator Medical Oncology 05/10/23 Adrian Martinez MD [address] DIV SURG TRANSPLANT, [address] [place] [address] Surgical Oncologist Surgical Oncology 05/28/23 Vera Pérez PA [address] [place] [id number] [place] [address] Physician Methods Specialist Engineer Colon and Rectal Surgery 09/13/23 Jim Frausto MD [address] [facility] [phone] [place] [address] Surgeon Colon and Rectal Surgery 11/21/23 Анна Robert, RN [address] [facility] [address] [place] [address] SHOP Outpatient Test Grader 09/29/24 10/01/24 documented as of this encounter
--- OUTSIDE RECORDS SUMMARY | 2025-02-17 00:35 | XMS_ITS | Encounter Summary ---
Author Organization [employer] Address [address] [place] [address] Care Team Providers Care Reimbursement Analyst Name Role Phone Kenton Ricks MD Primary Care Provider [phone] Encounter Details Date Type Department Care Team (Late st Contact Info) Description 07/23/2001 Outpatient Historical Division of Neurology [address] [address] Shabbir Villavicencio MD [address] [facility] [id number] [place] [address] Social History Tobacco Use Types Packs/Day Years Used Date Smoking Tobacco: Never Assessed Sex and Gender Information Value Date Recorded Sex Assigned at Not on file Legal Sex Male 4:35 AM BEVELING AND EDGING MACHINE OPERATOR Gender Identity Not on file Sexual Orientation Not on file documented as of this encounter Plan of Treatment Not on file documented as of this encounter Visit Diagnoses Not on filedocumented in this encounter Care Teams Reimbursement Analyst Relationship Specialty Start Date End Date Kenton Ricks MD [address] [place] [address] PCP - General Family Practice 11/15/18 documented as of this encounter
--- OUTSIDE RECORDS SUMMARY | 2025-02-17 00:35 | XMS_ITS | Encounter Summary ---
Author Organization [facility] Address [address] [place] [address] Phone Care Team Providers Care Spa Host Name Role Phone Kenton Ricks MD Primary Care Provider + [phone] Kenton Ricks MD Primary Care Provider + [phone] Pebbles Nelson MD Unavailable [phone] Aylin Russ MD Unavailable [phone] Maricruz Ramirez NP Unavailable [phone] Joanne Lopez RN Unavailable Padmini Leatha Carter Unavailable Unavailable Ben Chahal MD PhD Unavailable [phone] Chace Oliva MD Unavailable [phone] Giovanna Alexis MD Unavailable Taisha Suarez RN Unavailable Unavaila Sandra Aguirre MD Unavailable [phone] Abby Higgins MD PhD Unavailable + Adrian Martinez MD Unavailable Vera Pérez Unavailable Jim Frausto MD Unavailable Анна Robert RN Unavailable [phone] Encounter Details Date Type Department Care Team (Late st Contact Info) Description 03/14/2016 Orders Only [facility] Provider, MD Max [address] [place] [address] Social History Tobacco Use Types Packs/Day Years Used Date Smoking Tobacco: Never Assessed Sex and Gender Information Value Date Recorded Sex Assigned at Not on file Legal Sex Male 12:58 AM TAB MACHINE OPERATOR Gender Identity Male 11/11/2018 10:31 AM CDT Sexual Orientation Straight 06/09/2019 5: 34 PM TAB MACHINE OPERATOR documented as of this encounter Plan [...] COVID: Suspected 06/07/2023 06/07/2023 06/07/2023 12:46 PM TAB MACHINE OPERATOR COVID19 06/07/2023 06/07/2023 06/22/2023 3:06 AM TAB MACHINE OPERATOR COVID: Recovered Comment:Added based on recent COVID infection. 06/22/2023 06/22/2023 09/20/2023 3:05 AM C DT COVID: Suspected 07/24/2023 07/24/2023 07/24/2023 3:53 PM TAB MACHINE OPERATOR Diarrhea 07/30/2023 07/30/2023 08/13/2023 3:05 AM TAB MACHINE OPERATOR COVID: Suspected 08/30/2023 08/30/2023 08/30/2023 4:52 PM TAB MACHINE OPERATOR COVID: Suspected 10/12/2023 10/12/2023 10/12/2023 7:57 PM CDT Rhino/Enterovirus 10/12/2023 10/12/2023 10/26/2023 3:05 AM CDT COVID: Suspected 07/10/2024 07/10/2024 07/10/2024 4:53 PM TAB MACHINE OPERATOR COVID: Suspected Comment:07/16/2024 IP Review: no outstanding test, last RPP negative. Mary Tiwari RN 07/16/2024 07/16/2024 10:51 AM TAB MACHINE OPERATOR COVID19 Comment:07/16/2024 IP Review: added by RN, RPP negative. Mary Tiwari RN 07/16/2024 07/16/2024 07/16/2024 10:51 AM TAB MACHINE OPERATOR MRSA Comment:nasalMRSA Isolation Group Home 09/03/24 07/16/2024 08/15/2024 09/03/2024 6:[address] C. difficile suspected 07/19/2024 07/19/202407/19 2:34 PM TAB MACHINE OPERATOR COVID: Suspected 07/23/2024 07/23/2024 07/23/2024 11:28 PM TAB MACHINE OPERATOR C. difficile suspected 07/23/2024 07/24/202407/24 10:31 AM TAB MACHINE OPERATOR Norovirus suspected 07/23/2024 07/24/2024 07/24/19 9:37 AM TAB MACHINE OPERATOR VRE Comment:Contact Precautions (gown and gloves) - not eligible for IP review until 6 months after positive culture - Jerod QURESHI, CONY 10/01/24 07/24/2024 09/20/2024 COVID: Suspected 08/09/2024 08/09/2024 08/09/2024 9:40 AM TAB MACHINE OPERATOR Influenza, adult Comment:08/26/2024 IP Review: pt afebrile but on antipyretics. Needs 24 hours off antipyretics and symptoms significantly improved/resolved in order for isolation to be discontinued. Mary Tiwari RN 08/15/2024 08/15/2024 08/29/2024 3:06 AM TAB MACHINE OPERATOR Coronavirus, droplet 08/15/2024 08/15/202408/29/ 025 3:06 AM TAB MACHINE OPERATOR C. difficile suspected 09/19/2024 09/19/202409/20 3:05 [...] documented as of this encounter Care Teams Spa Host Relationship Specialty Start Date End Date Kenton Ricks MD PCP - General 08/14/16 Kenton Ricks MD PCP - General 09/17/08 08/13/16 Pebbles Nelson MD Referring Physician Cardiology 02/07/19 Aylin Russ MD [address] [place] [address] Referring Physician Pulmonary Disease 02/07/19 Maricruz Ramirez INSPECTION CLERK [address] [place] [address] Nurse Practitioner Cardiovascular Disease 09/25/21 Joanne Lopez, RN Registered Nurse Pulmonary Disease 08/24/22 Leatha Cristina RMA Surgical Prehabilitation and Readiness (SPAR) Coordinator 09/01/22 01/02/23 Ben Chahal MD PhD 10 [facility] # 2 DIV [place] [address] Medical Oncologist/Catering Assistant Medical Oncology 10/05/22 Chace Oliva MD [address] [facility] [address] [place] [address] Consulting Physician Infectious Diseases 12/22/2204/01 Giovanna Alexis MD [address] [place] [address] Radiation Oncologist Radiation Oncology 03/09/23 Taisha Suarez, electric shovel operator Prehabilitation and Readiness (SPAR) Coordinator General Surgery 03/20/23 04/10/23 Sandra Ma MD [address] DIV IM MEDICAL ONCOLOGY, [facility] 7A, 7B, [address] [place] [address] Consulting Physician Medical Oncology 04/25/23 05/09/23 Abby Higgins MD PhD [address] DIV IM MEDICAL ONCOLOGY, [facility] 7A, 7B, [address] [place] [address] Medical Oncologist/Catering Assistant Medical Oncology 05/10/23 Adrian Martinez MD [address] DIV SURG TRANSPLANT, [address] [place] [address] Surgical Oncologist Surgical Oncology 05/28/23 Vera Pérez PA [address] [place] [id number] [place] [address] Physician Utility Bagger Colon and Rectal Surgery 09/13/23 Jim Frausto MD [address] [facility] [phone] [place] [address] Surgeon Colon and Rectal Surgery 11/21/23 Анна Robert, RN [address] [facility] [address] [place] [address] SHOP Outpatient Labor Relations Or Personnel Negotiator 09/29/24 10/01/24 documented as of this encounter
--- OUTSIDE RECORDS SUMMARY | 2025-02-17 00:35 | XMS_ITS | Encounter Summary ---
Author Organization [facility] Address [address] [place] [address] Phone Care Team Providers Care Communications Associate Name Role Phone Kenton Ricks MD Primary Care Provider + [phone] Kenton Ricks MD Primary Care Provider + [phone] Pebbles Nelson MD Unavailable [phone] Aylin Russ MD Unavailable [phone] Maricruz Ramirez NP Unavailable [phone] Joanne Lopez RN Unavailable Padmini Leatha Carter Unavailable Unavailable Ben Chahal MD PhD Unavailable +[phone] Chace Oliva MD Unavailable [phone] Giovanna Alexis MD Unavailable Taisha Suarez RN Unavailable Unavaila Sandra Aguirre MD Unavailable [phone] Abby Higgins MD PhD Unavailable + Adrian Martinez MD Unavailable Vera Pérez Unavailable [phone] Jim Frausto MD Unavailable Анна Robert RN Unavailable [phone] Encounter Details Date Type Department Care Team (Late st Contact Info) Description 09/01/2014 Orders Only [facility] Provider, MD Max [address] [place] [address] Social History Tobacco Use Types Packs/Day Years Used Date Smoking Tobacco: Never Assessed Sex and Gender Information Value Date Recorded Sex Assigned at Not on file Legal Sex Male 12:58 AM PHARMACY INFORMATICIST Gender Identity Male 11/11/2018 10:31 AM CDT Sexual Orientation Straight 06/09/2019 5: 34 PM PHARMACY INFORMATICIST documented as of this encounter Plan of Treatment Not on file documented as of this encounter Procedures Procedure Name Priority Date/Time Associated Diagnosis Comments CARDIOLOGY REPORT 09/01/2014 documented in this encounter Results * CARDIOLOGY REPORT (09/01/2014) Anatomical Region Laterality Modality Other Narrative 09/01/2014 Ordered by an unspecified provider. Historical Provider [facility] GLORIA Final Result documented in this encounter [...] COVID: Suspected 06/07/2023 06/07/2023 06/07/2023 12:46 PM PHARMACY INFORMATICIST COVID19 06/07/2023 06/07/2023 06/22/2023 3:06 AM PHARMACY INFORMATICIST COVID: Recovered Comment:Added based on recent COVID infection. 06/22/2023 06/22/2023 09/20/2023 3:05 AM C DT COVID: Suspected 07/24/2023 07/24/2023 07/24/2023 3:53 PM PHARMACY INFORMATICIST Diarrhea 07/30/2023 07/30/2023 08/13/2023 3:05 AM PHARMACY INFORMATICIST COVID: Suspected 08/30/2023 08/30/2023 08/30/2023 4:52 PM PHARMACY INFORMATICIST COVID: Suspected 10/12/2023 10/12/2023 10/12/2023 7:57 PM CDT Rhino/Enterovirus 10/12/2023 10/12/2023 10/26/2023 3:05 AM CDT COVID: Suspected 07/10/2024 07/10/2024 07/10/2024 4:53 PM PHARMACY INFORMATICIST COVID: Suspected Comment:07/16/2024 IP Review: no outstanding test, last RPP negative. Mary Tiwari RN 07/16/2024 07/16/2024 10:51 AM PHARMACY INFORMATICIST COVID19 Comment:07/16/2024 IP Review: added by RN, RPP negative. Mary Tiwari RN 07/16/2024 07/16/2024 07/16/2024 10:51 AM PHARMACY INFORMATICIST MRSA Comment:nasalMRSA Isolation Snf 09/03/24 07/16/2024 08/15/2024 09/03/2024 6:[address] C. difficile suspected 07/19/2024 07/19/202407/19 2:34 PM PHARMACY INFORMATICIST COVID: Suspected 07/23/2024 07/23/2024 07/23/2024 11:28 PM PHARMACY INFORMATICIST C. difficile suspected 07/23/2024 07/24/202407/24 10:31 AM PHARMACY INFORMATICIST Norovirus suspected 07/23/2024 07/24/2024 07/24/19 9:37 AM PHARMACY INFORMATICIST VRE Comment:Contact Precautions (gown and gloves) - not eligible for IP review until 6 months after positive culture - Jerod QURESHI, CONY 10/01/24 07/24/2024 09/20/2024 COVID: Suspected 08/09/2024 08/09/2024 08/09/2024 9:40 AM PHARMACY INFORMATICIST Influenza, adult Comment:08/26/2024 IP Review: pt afebrile but on antipyretics. Needs 24 hours off antipyretics and symptoms significantly improved/resolved in order for isolation to be discontinued. Mary Tiwari RN 08/15/2024 08/15/2024 08/29/2024 3:06 AM PHARMACY INFORMATICIST Coronavirus, droplet 08/15/2024 08/15/202408/29/ 025 3:06 AM PHARMACY INFORMATICIST C. difficile suspected 09/19/2024 09/19/202409/20 3:05 AM [...] documented as of this encounter Care Teams Communications Associate Relationship Specialty Start Date End Date Kenton Ricks MD PCP - General 08/14/16 Kenton Ricks MD PCP - General 09/17/08 08/13/16 Pebbles Nelson MD Referring Physician Cardiology 02/07/19 Aylin Russ MD [address] [place] [address] Referring Physician Pulmonary Disease 02/07/19 Maricruz Ramirez INSIDE SALES ACCOUNT MANAGER [address] [place] [address] Nurse Practitioner Cardiovascular Disease 09/25/21 Joanne Lopez, RN Registered Nurse Pulmonary Disease 08/24/22 Leatha Cristina RMA Surgical Prehabilitation and Readiness (SPAR) Coordinator 09/01/22 01/02/23 Ben Chahal MD PhD 10 [facility] # 2 [place] [address] Medical Oncologist/Drill Sergeant Medical Oncology 10/05/22 Chace Oliva MD [address] [facility] [address] [place] [address] Consulting Physician Infectious Diseases 12/22/2204/01 Giovanna Alexis MD [address] [place] [address] Radiation Oncologist Radiation Oncology 03/09/23 Taisha Suarez, generator mechanic Prehabilitation and Readiness (SPAR) Coordinator General Surgery 03/20/23 04/10/23 Sandra Ma MD [address] DIV IM MEDICAL ONCOLOGY, [facility] 7A, 7B, 7C [place] [address] Consulting Physician Medical Oncology 04/25/23 05/09/23 Abby Higgins MD PhD [address] DIV IM MEDICAL ONCOLOGY, [facility] 7A, 7B, [address]C [place] [address] Medical Oncologist/Drill Sergeant Medical Oncology 05/10/23 Adrian Martinez MD [address] DIV SURG TRANSPLANT, [address] [place] [address] Surgical Oncologist Surgical Oncology 05/28/23 Vera Pérez PA [address] [place] [id number] [place] [address] Physician Heading Maker Colon and Rectal Surgery 09/13/23 Jim Frausto MD [address] [facility] [phone] [place] [address] Surgeon Colon and Rectal Surgery 11/21/23 Анна Robert, RN [address] [facility] [address] [place] [address] SHOP Outpatient Rejogger 09/29/24 10/01/24 documented as of this encounter
--- OUTSIDE RECORDS SUMMARY | 2025-02-17 00:35 | XMS_ITS | Encounter Summary ---
Author Organization [facility] Address [address] [place] [address] Phone Care Team Providers Care Primary Substance Abuse Counselor Name Role Phone Kenton Ricks MD Primary Care Provider + [phone] Kenton Ricks MD Primary Care Provider + [phone] Pebbles Nelson MD Unavailable [phone] Aylin Russ MD Unavailable [phone] Maricruz Ramirez NP Unavailable [phone] Joanne Lopez RN Unavailable Padmini Leatha Carter Unavailable Unavailable Ben Chahal MD PhD Unavailable [phone] Chace Oliva MD Unavailable [phone] Giovanna Alexis MD Unavailable Taisha Suarez RN Unavailable Unavaila Sandra Aguirre MD Unavailable [phone] Abby Higgins MD PhD Unavailable + Adrian Martinez MD Unavailable [phone] Vera Pérez Unavailable Jim Frausto MD Unavailable Анна Robert RN Unavailable [phone] Encounter Details Date Type Department Care Team (Late st Contact Info) Description 05/08/2014 Orders Only [facility] Provider, MD Max [address] [place] [address] Social History Tobacco Use Types Packs/Day Years Used Date Smoking Tobacco: Never Assessed Sex and Gender Information Value Date Recorded Sex Assigned at Not on file Legal Sex Male 12:58 AM LIEUTENANT COLONEL Gender Identity Male 11/11/2018 10:31 AM CDT Sexual Orientation Straight 06/09/2019 5: 34 PM LIEUTENANT COLONEL documented as of this encounter Plan of [...] COVID: Suspected 06/07/2023 06/07/2023 06/07/2023 12:46 PM LIEUTENANT COLONEL COVID19 06/07/2023 06/07/2023 06/22/2023 3:06 AM LIEUTENANT COLONEL COVID: Recovered Comment:Added based on recent COVID infection. 06/22/2023 06/22/2023 09/20/2023 3:05 AM C DT COVID: Suspected 07/24/2023 07/24/2023 07/24/2023 3:53 PM LIEUTENANT COLONEL Diarrhea 07/30/2023 07/30/2023 08/13/2023 3:05 AM LIEUTENANT COLONEL COVID: Suspected 08/30/2023 08/30/2023 08/30/2023 4:52 PM LIEUTENANT COLONEL COVID: Suspected 10/12/2023 10/12/2023 10/12/2023 7:57 PM CDT Rhino/Enterovirus 10/12/2023 10/12/2023 10/26/2023 3:05 AM CDT COVID: Suspected 07/10/2024 07/10/2024 07/10/2024 4:53 PM LIEUTENANT COLONEL COVID: Suspected Comment:07/16/2024 IP Review: no outstanding test, last RPP negative. Mary Tiwari RN 07/16/2024 07/16/2024 10:51 AM LIEUTENANT COLONEL COVID19 Comment:07/16/2024 IP Review: added by RN, RPP negative. Mary Tiwari RN 07/16/2024 07/16/2024 07/16/2024 10:51 AM LIEUTENANT COLONEL MRSA Comment:nasalMRSA Isolation [facility] 09/03/24 07/16/2024 08/15/2024 09/03/2024 6:[address] C. difficile suspected 07/19/2024 07/19/202407/19 2:34 PM LIEUTENANT COLONEL COVID: Suspected 07/23/2024 07/23/2024 07/23/2024 11:28 PM LIEUTENANT COLONEL C. difficile suspected 07/23/2024 07/24/202407/24 10:31 AM LIEUTENANT COLONEL Norovirus suspected 07/23/2024 07/24/2024 07/24/19 9:37 AM LIEUTENANT COLONEL VRE Comment:Contact Precautions (gown and gloves) - not eligible for IP review until 6 months after positive culture - Jerod QURESHI, CONY 10/01/24 07/24/2024 09/20/2024 COVID: Suspected 08/09/2024 08/09/2024 08/09/2024 9:40 AM LIEUTENANT COLONEL Influenza, adult Comment:08/26/2024 IP Review: pt afebrile but on antipyretics. Needs 24 hours off antipyretics and symptoms significantly improved/resolved in order for isolation to be discontinued. Mary Tiwari RN 08/15/2024 08/15/2024 08/29/2024 3:06 AM LIEUTENANT COLONEL Coronavirus, droplet 08/15/2024 08/15/202408/29/ 025 3:06 AM LIEUTENANT COLONEL C. difficile suspected 09/19/2024 09/19/202409/20 3:05 AM [...] documented as of this encounter Care Teams Primary Substance Abuse Counselor Relationship Specialty Start Date End Date Kenton Ricks MD PCP - General 08/14/16 Kenton Ricks MD PCP - General 09/17/08 08/13/16 Pebbles Nelson MD Referring Physician Cardiology 02/07/19 Aylin Russ MD [address] [place] [address] Referring Physician Pulmonary Disease 02/07/19 Maricruz Ramirez GRAPHIC EDITOR [address] [place] [address] Nurse Practitioner Cardiovascular Disease 09/25/21 Joanne Lopez, RN Registered Nurse Pulmonary Disease 08/24/22 Leatha Cristina RMA Surgical Prehabilitation and Readiness (SPAR) Coordinator 09/01/22 01/02/23 Ben Chahal MD PhD 10 [facility] # 2 [place] [address] Medical Oncologist/Structural Architect Medical Oncology 10/05/22 Chace Oliva MD [address] [facility] [address] [place] [address] Consulting Physician Infectious Diseases 12/22/2204/01 Giovanna Alexis MD [address] [place] [address] Radiation Oncologist Radiation Oncology 03/09/23 Taisha Suarez, artistic associate Prehabilitation and Readiness (SPAR) Coordinator General Surgery 03/20/23 04/10/23 Sandra Ma MD [address] DIV IM MEDICAL ONCOLOGY, [facility] 7A, 7B, [address]C [place] [address] Consulting Physician Medical Oncology 04/25/23 05/09/23 Abby Higgins MD PhD [address] DIV IM MEDICAL ONCOLOGY, [facility] 7A, 7B, [address] [place] [address] Medical Oncologist/Structural Architect Medical Oncology 05/10/23 Adrian Martinez MD [address] DIV SURG TRANSPLANT, [address] [place] [address] Surgical Oncologist Surgical Oncology 05/28/23 Vera Pérez PA [address] [place] [id number] [place] [address] Physician Wire Lather Colon and Rectal Surgery 09/13/23 Jim Frausto MD [address] [facility] [phone] [place] [address] Surgeon Colon and Rectal Surgery 11/21/23 Анна Robert, RN [address] [facility] [address] [place] [address] SHOP Outpatient Senior Oracle Database Developer 09/29/24 10/01/24 documented as of this encounter
--- OUTSIDE RECORDS SUMMARY | 2025-02-17 00:35 | XMS_ITS | Encounter Summary ---
Author Organization [facility] Address [address] [place] [address] Phone Care Team Providers Care Bounty Trapper Name Role Phone Kenton Ricks MD Primary Care Provider + [phone] Pebbles Nelson MD Unavailable [phone] Aylin Russ MD Unavailable [phone] Maricruz Ramirez NP Unavailable [phone] Joanne Lopez RN Unavailable Padmini Leatha Carter Unavailable Unavailable Ben Chahal MD PhD Unavailable [phone] Chace Oliva MD Unavailable [phone] Giovanna Alexis MD Unavailable Taisha Suarez RN Unavailable Unavaila Sandra Aguirre MD Unavailable [phone] Abyb Higgins MD PhD Unavailable + Adrian Martinez MD Unavailable [phone] Vera Pérez Unavailable [phone] Jim Frausto MD Unavailable [phone] Анна Robert RN Unavailable [phone] Encounter Details Date Type Department Care Team [...] week 10/17/2021 How often do you attend [facility] or zoroastrian services? More than 4 times per year 10/17/2021 Do you belong to any clubs o r organizations such as sabianism groups, unions, fraternal or athletic groups, or [...] place to sleep or slept in a prison (including now)? 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 06/22/2023 06/22/2023 09/20/2023 3:05 AM C DT COVID: Suspected 07/24/2023 07/24/2023 07/24/2023 3:53 PM NITRATING ACID MIXER Diarrhea 07/30/2023 07/30/2023 08/13/2023 3:05 AM NITRATING ACID MIXER COVID: Suspected 08/30/2023 08/30/2023 08/30/2023 4:52 PM NITRATING ACID MIXER COVID: Suspected 10/12/2023 10/12/2023 10/12/2023 7:57 PM CDT Rhino/Enterovirus 10/12/2023 10/12/2023 10/26/2023 3:05 AM CDT COVID: Suspected 07/10/2024 07/10/2024 07/10/2024 4:53 PM NITRATING ACID MIXER COVID: Suspected Comment:07/16/2024 IP Review: no outstanding test, last RPP negative. Mary Tiwari, CONY 07/16/2024 07/16/2024 10:51 AM NITRATING ACID MIXER COVID19 Comment:07/16/2024 IP Review: added by CLAUDIO DONNELLY negative. Mary Tiwari RN 07/16/2024 07/16/2024 07/16/2024 10:51 AM NITRATING ACID MIXER MRSA Comment:nasalMRSA Isolation [facility] 09/03/24 07/16/2024 08/15/2024 09/03/2024 6:[address] C. difficile suspected 07/19/2024 07/19/202407/19 2:34 PM NITRATING ACID MIXER COVID: Suspected 07/23/2024 07/23/2024 07/23/2024 11:28 PM NITRATING ACID MIXER C. difficile suspected 07/23/2024 07/24/202407/24 10:31 AM NITRATING ACID MIXER Norovirus suspected 07/23/2024 07/24/2024 07/24/19 9:37 AM NITRATING ACID MIXER VRE Comment:Contact Precautions (gown and gloves) - not eligible for IP review until 6 months after positive culture - Jerod QURESHI, CONY 10/01/24 07/24/2024 09/20/2024 COVID: Suspected 08/09/2024 08/09/2024 08/09/2024 9:40 AM NITRATING ACID MIXER Influenza, adult Comment:08/26/2024 IP Review: pt afebrile but on antipyretics. Needs 24 hours off antipyretics and symptoms significantly improved/resolved in order for isolation to be discontinued. Mary Tiwari RN 08/15/2024 08/15/2024 08/29/2024 3:06 AM NITRATING ACID MIXER Coronavirus, droplet 08/15/2024 08/15/2024 025 3:06 AM NITRATING ACID MIXER C. difficile suspected 09/19/2024 09/19/202409/20 3:05 AM [...] documented as of this encounter Care Teams Bounty Trapper Relationship Specialty Start Date End Date Kenton Ricks MD PCP - General 08/14/16 Pebbles Nelson MD Referring Physician Cardiology 02/07/19 Aylin Russ MD [address] [address] Referring Physician Pulmonary Disease 02/07/19 Maricruz Ramirez NP [address] [address] Nurse Practitioner Cardiovascular Disease 09/25/21 Joanne Lopez, CONY Registered Nurse Pulmonary Disease 08/24/22 Leatha Cristina RMA Surgical Prehabilitation and Readiness (SPAR) Coordinator 09/01/22 01/02/23 Ben Chahal MD PhD [address] [place] [address] Medical Oncologist/President And Chief Commercial Officer Medical Oncology 10/05/22 Chace Oliva MD [address] [facility] [address] [place] [address] Consulting Physician Infectious Diseases 12/22/2204/01 Giovanna Alexis MD [address] [place] [address] Radiation Oncologist Radiation Oncology 03/09/23 Taisha Suarez, heel slugger Prehabilitation and Readiness (SPAR) Coordinator General Surgery 03/20/23 04/10/23 Sandra Ma MD [address] DIV IM MEDICAL ONCOLOGY, [facility] 7A, 7B, [address] [place] [address] Consulting Physician Medical Oncology 04/25/23 05/09/23 Abby Higgins MD PhD [address] DIV IM MEDICAL ONCOLOGY, [facility] 7A, 7B, [address] [place] [address] Medical Oncologist/President And Chief Commercial Officer Medical Oncology 05/10/23 Adrian Martinez MD [address] DIV SURG TRANSPLANT, [address] [place] [address] Surgical Oncologist Surgical Oncology 05/28/23 Vera Pérez PA [address] [place] [id number] [place] [address] Physician Rolled Glass Crosscutter Colon and Rectal Surgery 09/13/23 Jim Frausto MD [address] [facility] [phone] [place] [address] Surgeon Colon and Rectal Surgery 11/21/23 Анна Robert, RN [address] [address] SHOP Outpatient Acquisition Consultant 09/29/24 10/01/24 documented as of this encounter
--- OUTSIDE RECORDS SUMMARY | 2025-02-17 00:35 | XMS_ITS | Continuity of Care Document ---
Author Organization [facility] Address [address] [place] [address] [address] [place] [address] Phone Care Team Providers Care Systems Applications Programming Lead Name Role Phone Arminda Choudhary Unavailable Unavailable Procedures Procedure Date Eye Exam, New Patient Refraction Advance Directives Directive Yes / No Effective Date File Name No Information Encounters Encounter Description Practice Location Reason(s) For Visit Diagnoses Date Provider Providers Copied on Encounter [facility], [address] [place], [place], [id number], [place] tel:[phone] [facility] No Information [address] [facility] , [address], [place], [address], [place]. tel:[phone] Family History Family Member Type Diagnosis Age At Onset No Information Payers Payer name Insurance type Covered alliance party ID Authoriza tion(s) No Information Social [...]
--- OUTSIDE RECORDS SUMMARY | 2025-02-17 00:35 | XMS_ITS | Encounter Summary ---
Author Organization [facility] Address [address] [place] [address] Phone Care Team Providers Care Restoration Technician Name Role Phone Kenton Ricks MD Primary Care Provider + [phone] Kenton Ricks MD Primary Care Provider + [phone] Pebbles Nelson MD Unavailable [phone] Aylin Russ MD Unavailable [phone] Maricruz Ramirez NP Unavailable [phone] Joanne Lopez RN Unavailable Padmini Leatha Carter Unavailable Unavailable Ben Chahal MD PhD Unavailable [phone] Chace Oliva MD Unavailable [phone] Giovanna Alexis MD Unavailable Taisha Suarez RN Unavailable Unavaila Sandra Aguirre MD Unavailable [phone] Abby Higgins MD PhD Unavailable + Adrian Martinez MD Unavailable [phone] Vera Pérez Unavailable [phone] Jim Frausto MD Unavailable Анна Robert RN Unavailable Encounter Details Date Type Department Care Team (Late st Contact Info) Description 02/25/2014 Orders Only [facility] Provider, MD Max [address] [place] [id number] Social History Tobacco Use Types Packs/Day Years Used Date Smoking Tobacco: Never Assessed Sex and Gender Information Value Date Recorded Sex Assigned at Not on file Legal Sex Male 12:58 AM CONTINUITY TESTER Gender Identity Male 11/11/2018 10:31 AM CDT Sexual Orientation Straight 06/09/2019 5: 34 PM CONTINUITY TESTER documented as of this encounter Plan of [...] COVID: Suspected 06/07/2023 06/07/2023 06/07/2023 12:46 PM CONTINUITY TESTER COVID19 06/07/2023 06/07/2023 06/22/2023 3:06 AM CONTINUITY TESTER COVID: Recovered Comment:Added based on recent COVID infection. 06/22/2023 06/22/2023 09/20/2023 3:05 AM C DT COVID: Suspected 07/24/2023 07/24/2023 07/24/2023 3:53 PM CONTINUITY TESTER Diarrhea 07/30/2023 07/30/2023 08/13/2023 3:05 AM CONTINUITY TESTER COVID: Suspected 08/30/2023 08/30/2023 08/30/2023 4:52 PM CONTINUITY TESTER COVID: Suspected 10/12/2023 10/12/2023 10/12/2023 7:57 PM CDT Rhino/Enterovirus 10/12/2023 10/12/2023 10/26/2023 3:05 AM CDT COVID: Suspected 07/10/2024 07/10/2024 07/10/2024 4:53 PM CONTINUITY TESTER COVID: Suspected Comment:07/16/2024 IP Review: no outstanding test, last RPP negative. Mary Tiwari RN 07/16/2024 07/16/2024 10:51 AM CONTINUITY TESTER COVID19 Comment:07/16/2024 IP Review: added by RN, RPP negative. Mary Tiwari RN 07/16/2024 07/16/2024 07/16/2024 10:51 AM CONTINUITY TESTER MRSA Comment:nasalMRSA Isolation Shelter 09/03/24 07/16/2024 08/15/2024 09/03/2024 6:[address] C. difficile suspected 07/19/2024 07/19/202407/19 2:34 PM CONTINUITY TESTER COVID: Suspected 07/23/2024 07/23/2024 07/23/2024 11:28 PM CONTINUITY TESTER C. difficile suspected 07/23/2024 07/24/202407/24 10:31 AM CONTINUITY TESTER Norovirus suspected 07/23/2024 07/24/2024 07/24/19 9:37 AM CONTINUITY TESTER VRE Comment:Contact Precautions (gown and gloves) - not eligible for IP review until 6 months after positive culture - Jerod QURESHI, CONY 10/01/24 07/24/2024 09/20/2024 COVID: Suspected 08/09/2024 08/09/2024 08/09/2024 9:40 AM CONTINUITY TESTER Influenza, adult Comment:08/26/2024 IP Review: pt afebrile but on antipyretics. Needs 24 hours off antipyretics and symptoms significantly improved/resolved in order for isolation to be discontinued. Mary Tiwari RN 08/15/2024 08/15/2024 08/29/2024 3:06 AM CONTINUITY TESTER Coronavirus, droplet 08/15/2024 08/15/202408/29/ 025 3:06 AM CONTINUITY TESTER C. difficile suspected 09/19/2024 09/19/202409/20 3:05 AM [...] documented as of this encounter Care Teams Restoration Technician Relationship Specialty Start Date End Date Kenton Ricks MD PCP - General 08/14/16 Kenton Ricks MD PCP - General 09/17/08 08/13/16 Pebbles Nelson MD Referring Physician Cardiology 02/07/19 Aylin Russ MD [address] [place] [address] Referring Physician Pulmonary Disease 02/07/19 Maricruz Ramirez POLICE STENOGRAPHER [address] [place] [address] Nurse Practitioner Cardiovascular Disease 09/25/21 Joanne Lopez, RN Registered Nurse Pulmonary Disease 08/24/22 Leatha Cristina RMA Surgical Prehabilitation and Readiness (SPAR) Coordinator 09/01/22 01/02/23 Ben Chahal MD PhD [address] [facility] [address] [place] [address] Medical Oncologist/Field Counsel Medical Oncology 10/05/22 Chace Oliva MD [address] [facility] [address] [place] [address] Consulting Physician Infectious Diseases 12/22/2204/01 Giovanna Alexis MD [address] [place] [address] Radiation Oncologist Radiation Oncology 03/09/23 Taisha Suarez, airfreight operations agent Prehabilitation and Readiness (SPAR) Coordinator General Surgery 03/20/23 04/10/23 Sandra Ma MD [address] DIV IM MEDICAL ONCOLOGY, [facility] [address]A, 7B, [address] [place] [address] Consulting Physician Medical Oncology 04/25/23 05/09/23 Abby Higgins MD PhD [address] DIV IM MEDICAL ONCOLOGY, [facility] [address]A, [address]B, [address] [place] [address] Medical Oncologist/Field Counsel Medical Oncology 05/10/23 Adrian Martinez MD [address] DIV SURG TRANSPLANT, [address] [place] [address] Surgical Oncologist Surgical Oncology 05/28/23 Vera Pérez PA [address] [place] [id number] [place] [address] Physician Transcribing Machine Mechanic Colon and Rectal Surgery 09/13/23 Jim Frausto MD [address] [facility] [id number] [place] [address] Surgeon Colon and Rectal Surgery 11/21/23 Анна Robert, RN [address] [facility] [address] [place] [address] SHOP Outpatient Credit Card Control Clerk 09/29/24 10/01/24 documented as of this encounter
--- OUTSIDE RECORDS SUMMARY | 2025-02-17 00:35 | XMS_ITS | Encounter Summary ---
Author Organization [employer] Address 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 [address] PCP - General Family Practice 11/15/18 documented as of this encounter
--- OUTSIDE RECORDS SUMMARY | 2025-02-17 00:35 | XMS_ITS | Encounter Summary ---
Author Organization [employer] Address [address] [place] [address] Care Team Providers Care Advice Line Rn Name Role Phone Kenton Ricks MD Primary Care Provider [phone] Encounter Details Date Type Department Care Team (Late st Contact Info) Description 10/06/2001 Outpatient [facility] [address] [place] [address]. 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 [id number] PCP - General Family Practice 11/15/18 documented as of this encounter
--- OUTSIDE RECORDS SUMMARY | 2025-02-17 00:35 | XMS_ITS | Encounter Summary ---
Author Organization [employer] Address [address] [place] [address] Care Team Providers Care Canoe Builder Name Role Phone Kenton Ricks MD Primary Care Provider [phone] Encounter Details Date Type Department Care Team (Latest Contact Info) Description 05/17/2001 Outpatient [facility] [employer] [facility] [address] [place] [place] [address] Kenyon Montenegro MD [address] [address] HEADACHE (Primary Dx) Social History Tobacco Use Types Packs/Day Years Used Date Smoking Tobacco: Never Assessed Sex and Gender Information Value Date Recorded Sex Assigned at Not on file Legal 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 [id number] PCP - General Family Practice 11/15/18 documented as of this encounter
--- NOTE | 2025-02-17 10:19 | WPDHPUPDATE1 ---
History and Physical Update Update Date/Time: 02/17/25 10:19 History and Physical has been reviewed, including an updated exam of the patient. There are NO changes in the patient's condition. Risks, benefits, and alternatives have been discussed and questions answered. Patient agrees to proceed with procedure.
[2025-02-17 10:53] VITALS: BP 127/51; PULSE 59; RESP 18; TEMP 36.7; O2SAT 100
[2025-02-17] MEDS: LACTATED RINGERS 1,000 ML 30 ML IV CONT (11:00)
--- NOTE | 2025-02-17 12:08 | SUR.PREOP ---
PT AND INFORMED OF SURGERY TIME DELAY. DENIES NEEDS.
--- NOTE | 2025-02-17 12:27 | WPDANESEPPF ---
Anes - Initial Pre Proc Eval Procedure: Operation Date: 02/17/25 12:30 Proposed Procedures p Removal of Neurostimulator Implant - Geraldo Sargent MD Date/Time: 02/17/25 12:27 Surgeon: Geraldo Sargent MD Pre Op Diagnosis: Failed Implant Patient Data Age: 69 Gender: M Height: 1.75 m Weight: 99.4 kg Last Vital Signs Temp 36.7 C 02/17/25 10:53 Pulse 59 L 02/17/25 10:53 Resp 18 02/17/25 10:53 BP 127/51 L 02/17/25 10:53 Pulse Ox 100 02/17/25 10:53 O2 Del Method Room Air 02/17/25 10:53 Allergies Allergy/AdvReac Type Severity Reaction Status Date / Time meropenem Allergy Severe SHORTNESS Verified 02/17/25 11:31 OF BREATH vancomycin Allergy Severe Other Verified 02/17/25 11:31 iron dextran complex Allergy Other Verified 02/17/25 11:31 Sulfa (Sulfonamide Allergy Rash Verified 02/17/25 11:31 Antibiotics) menthol AdvReac Severe BROWER SKIN Verified 02/17/25 11:31 prochlorperazine (From AdvReac Severe Drowsy Verified 02/17/25 11:31 Compazine) ceftriaxone (From Rocephin) AdvReac Mild Nausea and Verified 02/17/25 11:31 Vomiting Home Medications ?Medication ?Instructions ?Recorded ?Confirmed ?Type simethicone 180 mg capsule (Gas 180 mg PO BID PRN Abdominal 08/31/22 02/06/25 History Relief (simethicone)) Discomfort fluticasone furoate 100 1 inh inhalation DAILY 10/27/22 02/06/25 History mcg-vilanterol 25 mcg/dose inhalation powder cyclobenzaprine 5 mg tablet 5 mg PO TID PRN muscle spasm 11/28/22 02/06/25 History ondansetron HCl 8 mg tablet 8 mg PO .before meals 03/22/23 02/06/25 History rosuvastatin 5 mg tablet (Crestor) 5 mg PO DAILY 03/22/23 02/17/25 History sennosides 8.6 mg-docusate sodium 1 tab-cap PO QHS 03/22/23 02/06/25 History 50 mg tablet tamsulosin 0.4 mg capsule 0.4 mg PO DAILY PRN urinary 03/22/23 02/06/25 History retention acetaminophen 500 mg capsule 500 mg PO Q6H PRN pain 05/31/23 02/06/25 History aspirin 81 mg tablet,delayed 81 mg PO DAILY 05/31/23 02/17/25 History release (Adult Low Dose Aspirin) fluticasone propionate 50 1 spray intranasal DAILY 05/31/23 02/17/25 History mcg/actuation nasal spray,suspension (Allergy Relief (fluticasone)) diclofenac sodium 1 % topical gel 2 g topical QID #100 grams 08/06/23 02/06/25 Rx omeprazole 40 mg capsule,delayed 40 mg PO DAILY 08/06/23 02/06/25 History release oxybutynin chloride 15 mg 15 mg PO DAILY 08/06/23 02/06/25 History tablet,extended release 24 hr [id number] See Rx Instructions PO .up to 6 10/11/23 02/17/25 History 24,000-76,000-120,000 unit times a day capsule,delayed rel (Creon) albuterol sulfate 90 mcg/actuation 2 inh inhalation Q6H PRN shortness 10/12/23 02/06/25 Rx aerosol inhaler (ProAir HFA) of breath #6.7 grams ascorbic acid (vitamin C) 500 mg 500 mg PO DAILY 10/22/23 02/17/25 History capsule insulin aspart U-100 100 unit/mL 12 unit subcut .WITH MEALS 10/22/23 02/17/25 History (3 mL) subcutaneous pen (Novolog FlexPen U-100 Insulin aspart) insulin degludec 100 unit/mL (3 40 unit subcut QAM 10/22/23 02/17/25 History mL) subcutaneous pen (Tresiba FlexTouch U-100 insulin) oxycodone 5 mg tablet 5 mg PO Q8H PRN pain 10/22/23 02/06/25 History torsemide 20 mg tablet 60 mg PO DAILY 10/22/23 02/17/25 History dicyclomine 20 mg tablet 20 mg PO TID 11/19/23 02/06/25 History acetaminophen 500 mg capsule 1,000 mg (2 x 500 mg) PO Q6H PRN 03/11/24 02/06/25 Rx pain #20 caps pantoprazole 40 mg tablet,delayed 40 mg PO BID 09/03/24 02/17/25 History release trazodone 100 mg tablet 100 mg PO DAILY 09/03/24 02/06/25 History ubrogepant 100 mg tablet (Ubrelvy) 100 mg PO ONCE PRN migraine 09/03/24 02/06/25 History headache pramipexole 1 mg tablet See Rx Instructions .Route 11/01/24 02/17/25 Rx .COMPLEX #270 tabs B-complex with vitamin C 1 cap PO DAILY 01/26/25 02/17/25 History duloxetine 30 mg capsule,delayed 30 mg PO QAM 01/26/25 02/17/25 History release ferrous sulfate 325 mg (65 mg 325 mg PO DAILY 01/26/25 02/17/25 History iron) tablet gabapentin 300 mg capsule 600 mg PO TID 01/26/25 02/17/25 History lidocaine HCl 2 % mucosal jelly in topical 01/26/25 History applicator vibegron 75 mg tablet (Gemtesa) 75 mg PO HS 01/26/25 02/17/25 History multivitamin (Daily Multi-Vitamin 1 tablet PO DAILY 02/06/25 02/17/25 History tablet) sucralfate 1 gram tablet (Carafate) 1 g PO Q6H #360 tabs 02/07/25 Rx Laboratory Tests 02/17/25 02/17/25 11:04 12:21 POC Capillary Glucose 127 H mg/dl 99 mg/dl (65-105) (65-105) Patient hx anesthesia problems: none Family hx anesthesia problems: none Results Review: All pre-operative results and documents have been reviewed as part of the pre-operative evaluation. [facility] Past Medical History Medical History Pneumonia Paroxysmal A-fib Diastolic CHF Chest pain Chronic pain Depression Anal fissure Vision changes Chest wall pain Stomatitis Pacemaker at end of battery life Accidental esophageal perforation during procedure BMI 34.0-34.9,adult BMI 33.0-33.9,adult Superficial venous thrombosis of right upper extremity (~09/2022) Strain of rhomboid muscle History of cluster headache Polyuria Syncope History of colon polyps Acute diastolic CHF (congestive heart failure) Family hx of colon cancer Knee osteoarthritis Dermatitis Neurogenic bladder Morbid (severe) obesity due to excess calories Thyroid nodule status post biopsy with benign pathology Adrenal adenoma stable on imaging since 2018 C. 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 Surgical History Surgical History History of Whipple procedure History of suprapubic catheter (11/2020) History of transurethral resection of prostate (08/2020) TUIP with cystoscopy and urethral dilatation performed by Dr. Schmidt Sacral nerve stimulator present (03/2020) S/P removal of thyroid nodule History of arthroscopy of left knee due to meniscal tear Biceps tendon rupture status post repair History of appendectomy History of prostatectomy with chronic urinary incontinence Status post left rotator cuff repair History of colonoscopy with polypectomy AICD (automatic cardioverter/defibrillator) present Status post trigger finger release bilateral Family History Family History Father Cerebrovascular accident Neurofibromatosis Coronary artery disease Diabetes mellitus CHF (congestive heart failure) Acute myocardial infarction Mother Breast cancer Cerebrovascular accident Grandparent Alcoholism Sibling Thyroid cancer sister Sibling Depression Breast cancer H/O mastectomy Sibling Depression Adrenal cancer sister Sibling Depression Social History Social History Social History: the patient briefly smoked while in college. He drinks 1-2 beers a week. He lives in [place] with his of 40 years. They have 3 children who are healthy and 3 grand children. 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 Code status: DNR/DNI (the patient reports that given his recent changes in his health status he wants to change his code status to DNR/DNI.) Power of elastic yarn twister for healthcare: Claudine () Years smoked: 3 Smoking status: Former smoker Tobacco type: cigarettes Second hand tobacco smoke exposure: No Alcohol intake: current Drinks per week: 1 Alcohol use details: on occasion Substance use: never Substance use type: does not use Do You Feel Safe in your Home?: Yes Lack of Transportation: No Lack of Food: Never True Current Housing: I Have Housing Concerned About Future Housing: No Difficulty Paying Gas/Electric Bills: YES Difficulty Paying for Meds: No Currently Unemployed: No Education: Bachelor's Degree Difficulty w/ Childcare or Family Care: No Living arrangements: with family Additional living arrangements comments: AND SON Occupation/Education: retired Additional occupation/education comments: [employer]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 Informed Consent: The patient's anesthetic plan and its attendant risks and benefits were discussed with the patient/family/POA. Questions were solicited and answers provided to the satisfaction of the patient/family/POA.
[2025-02-17] MEDS: levoFLOXacin 500 MG/D5W 100 ML 500 MG/100 ML BAG 100 MG IVPB (13:09)
[2025-02-17] MEDS: BUPIVACAINE/EPINEPHRINE 0.5% 30 ML VIAL INFILTRATE (13:29)
--- NOTE | 2025-02-17 13:43 | W.PM.PROC2 ---
Procedure Note - Detailed Date of Procedure 02/17/25 Pre-op Diagnosis Urge incontinence Post-op Diagnosis Same Procedure Performed Removal of sacral lead Removal of implantable pulse generator Surgeon Geraldo Sargent MD Anesthesia MAC Findings Uncomplicated device removed Description of Procedure He has correctly identified. Informed consent obtained. From the operating room. He was given monitored anesthesia care after being placed in the prone position. Lower back and buttock were prepped draped sterile fashion. Time-out performed. I anesthetized the skin over the sacral implant battery. I incised the skin. I located the implant battery and removed in its entirety. I removed the capsule around the implant. I then located the left-sided sacral lead under fluoroscopy. I anesthetize skin. I incised the skin. I located the lead and removed its entirety. I assured hemostasis. I irrigated all wounds. I closed subcutaneous tissues with 2-0 Vicryl. Skin with 4-0 Vicryl. Glue was applied. He was awakened transferred to PACU in stable condition. Estimated Blood Loss 10 Complications No immediate complications Condition Stable Disposition PACU
[2025-02-17 13:50] VITALS: BP 128/61; PULSE 60; RESP 16; O2SAT 100
[2025-02-17 14:20] VITALS: BP 118/54; PULSE 60; O2SAT 98
[2025-02-17 14:50] VITALS: BP 109/57; PULSE 60
[2025-02-17] MEDS: oxyCODONE HCL (*CRX) 5 MG TAB IR PO (15:05)
--- NOTE | 2025-02-17 15:08 | SUR.PHASEII ---
1440- Pacer/ICD Interrogated 1443- Tomato Pulper Operator called for [employer] report, call back and fax numbers were given to customer development representative
[2025-02-17 15:20] VITALS: BP 125/59; PULSE 60
== END 2025-02-17 15:38 | disposition home or self-care (01) ==
PROVIDERS: PCP Family Medicine; Visit Provider Urology
PROC: (CPT 64585; principal; 2025-02-17 12:30)
DX: Z45.49 Encounter for adjustment and management of other implanted nervous system device (principal); N39.41 Urge incontinence; N40.1 Benign prostatic hyperplasia with lower urinary tract symptoms; E11.9 Type 2 diabetes mellitus without complications; K21.9 Gastro-esophageal reflux disease without esophagitis; I48.0 Paroxysmal atrial fibrillation; I50.30 Unspecified diastolic (congestive) heart failure; G89.29 Other chronic pain; F32.A Depression, unspecified; M17.10 Unilateral primary osteoarthritis, unspecified knee; N31.9 Neuromuscular dysfunction of bladder, unspecified; E29.1 Testicular hypofunction; I49.8 Other specified cardiac arrhythmias; Q85.00 Neurofibromatosis, unspecified; G47.39 Other sleep apnea; J98.6 Disorders of diaphragm; M51.369 Other intervertebral disc degeneration, lumbar region without mention of lumbar back pain or lower extremity pain; M48.062 Spinal stenosis, lumbar region with neurogenic claudication; Z79.51 Long term (current) use of inhaled steroids; Z79.82 Long term (current) use of aspirin; Z79.4 Long term (current) use of insulin; Z79.891 Long term (current) use of opiate analgesic; Z98.890 Other specified postprocedural states; Z95.810 Presence of automatic (implantable) cardiac defibrillator; Z87.442 Personal history of urinary calculi; Z86.711 Personal history of pulmonary embolism; Z87.19 Personal history of other diseases of the digestive system; Z86.718 Personal history of other venous thrombosis and embolism; Z86.0100 Personal history of colon polyps, unspecified; Z87.891 Personal history of nicotine dependence; Z80.0 Family history of malignant neoplasm of digestive organs; Z80.3 Family history of malignant neoplasm of breast; Z80.8 Family history of malignant neoplasm of other organs or systems; Z82.49 Family history of ischemic heart disease and other diseases of the circulatory system
CPT/HCPCS: 64585; 64595; 82948; 99199; A9270; J1956; J2250; J3010; J7120

== ENCOUNTER 2025-04-07 19:35 | Emergency (ER) | payer MEDICARE, MEDICAID, SELFPAY ==
--- OUTSIDE RECORDS SUMMARY | 2007-12-27 04:02 | XMS_ITS | Continuity of Care Document ---
Author Organization [facility] Address [address] [place] [address] [address] [place] [address] Phone Care Team Providers Care Aquarium Specialist Name Role Phone Arminda Choudhary Unavailable Unavailable Procedures Procedure Date Eye Exam, New Patient Refraction Advance Directives Directive Yes / No Effective Date File Name No Information Encounters Encounter Description Practice Location Reason(s) For Visit Diagnoses Date Provider Providers Copied on Encounter [facility], [address], [place], [place], [id number], [place] tel:[phone] [facility] No Information [address] [facility] , [address], [place], [address], [place]. tel:[phone] Family History Family Member Type Diagnosis Age At Onset No Information Payers Payer name Insurance type Covered libertarian ID Authoriza tion(s) No Information Social History [...]
--- OUTSIDE RECORDS SUMMARY | 2007-12-27 04:02 | XMS_ITS | Continuity of Care Document ---
Author Organization [facility] Address [address] [place] [address] [address] [place] [address] Phone Care Team Providers Care Beautician Apprentice Name Role Phone Arminda Choudhary Unavailable Unavailable Procedures Procedure Date Eye Exam, New Patient Refraction Advance Directives Directive Yes / No Effective Date File Name No Information Encounters Encounter Description Practice Location Reason(s) For Visit Diagnoses Date Provider Providers Copied on Encounter [facility], [address], [place], [place], [id number], [place] tel:[phone] [facility] No Information [address] [facility] , [address], [place], [address], [place]. tel:[phone] Family History Family Member Type Diagnosis Age At Onset No Information Payers Payer name Insurance type Covered constitution party ID Authoriza tion(s) No Information Social [...]
--- OUTSIDE RECORDS SUMMARY | 2015-06-29 09:00 | XMS_ITS | Continuity of Care Document ---
Author Organization [email or web address] [place] Address [address] [place] [address] [address] [place] [address] Phone Care Team Providers Care Traveling Freight Agent Name Role Phone Johnie Guidry PTA Unavailable Unavailable Procedures Procedure Date THERAPEUTIC EXERCISES MANUAL THERAPY FUNC ACTIVITY Carrying, Moving And Handling Objects-Cu rrent Carrying, Moving And Handling Objects-Go al Carrying, Moving And Handling Objects-Cu rrent Carrying, Moving And Handling Objects-Go al THERAPEUTIC EXERCISES MANUAL THERAPY FUNC ACTIVITY THERAPEUTIC EXERCISES MANUAL THERAPY FUNC ACTIVITY THERAPEUTIC EXERCISES MANUAL THERAPY FUNC ACTIVITY THERAPEUTIC EXERCISES MANUAL THERAPY FUNC ACTIVITY THERAPEUTIC EXERCISES MANUAL THERAPY THERAPEUTIC EXERCISES MANUAL THERAPY PT EVALUATION NEUROMUSCULAR RE-ED Carrying, Moving And Handling Objects-Cu rrent Carrying, Moving And Handling Objects-Go al Medications Name Dose Freq Route DOC Jun Pain Assess Positive DOC 2014 BMI High F/U Plan DOC Functional Outcome Assessmen t documented, deficits identified, treatment plan es Carrying, Moving And Handling Objects-Cu rrent Carrying, Moving And Handling Objects-Go al No Charge PT RE-EVALUATION THERAPEUTIC EXERCISES MANUAL THERAPY FUNC ACTIVITY HOT/COLD PACK THERAPEUTIC EXERCISES MANUAL THERAPY FUNC ACTIVITY HOT/COLD PACK THERAPEUTIC EXERCISES MANUAL THERAPY FUNC ACTIVITY HOT/COLD PACK THERAPEUTIC EXERCISES MANUAL THERAPY FUNC ACTIVITY HOT/COLD PACK THERAPEUTIC EXERCISES MANUAL THERAPY FUNC ACTIVITY HOT/COLD PACK THERAPEUTIC EXERCISES MANUAL THERAPY FUNC ACTIVITY HOT/COLD PACK THERAPEUTIC EXERCISES MANUAL THERAPY FUNC ACTIVITY HOT/COLD PACK THERAPEUTIC EXERCISES MANUAL THERAPY FUNC ACTIVITY HOT/COLD PACK THERAPEUTIC EXERCISES MANUAL THERAPY FUNC ACTIVITY HOT/COLD PACK THERAPEUTIC EXERCISES MANUAL THERAPY FUNC ACTIVITY HOT/COLD PACK THERAPEUTIC EXERCISES MANUAL THERAPY FUNC ACTIVITY HOT/COLD PACK THERAPEUTIC EXERCISES MANUAL THERAPY FUNC ACTIVITY HOT/COLD PACK THERAPEUTIC EXERCISES MANUAL THERAPY FUNC ACTIVITY HOT/COLD PACK THERAPEUTIC EXERCISES MANUAL THERAPY FUNC ACTIVITY HOT/COLD PACK PT RE-EVALUATION THERAPEUTIC EXERCISES MANUAL THERAPY HOT/COLD PACK THERAPEUTIC EXERCISES MANUAL THERAPY HOT/COLD PACK ELECTRIC STIMULATION UNATT THERAPEUTIC EXERCISES MANUAL THERAPY HOT/COLD PACK ELECTRIC STIMULATION UNATT THERAPEUTIC EXERCISES MANUAL THERAPY HOT/COLD PACK ELECTRIC STIMULATION UNATT THERAPEUTIC EXERCISES MANUAL THERAPY HOT/COLD PACK ELECTRIC STIMULATION UNATT THERAPEUTIC EXERCISES MANUAL THERAPY HOT/COLD PACK ELECTRIC STIMULATION UNATT THERAPEUTIC EXERCISES MANUAL THERAPY HOT/COLD PACK ELECTRIC STIMULATION UNATT PT EVALUATION THERAPEUTIC EXERCISES MANUAL THERAPY HOT/COLD PACK ELECTRIC STIMULATION UNATT PT RE-EVALUATION THERAPEUTIC EXERCISES NEUROMUSCULAR RE-ED MANUAL THERAPY FUNC ACTIVITY 15 MIN HOT/COLD PACK THERAPEUTIC EXERCISES NEUROMUSCULAR RE-ED MANUAL THERAPY FUNC ACTIVITY 15 MIN HOT/COLD PACK THERAPEUTIC EXERCISES NEUROMUSCULAR RE-ED MANUAL THERAPY FUNC ACTIVITY 15 MIN HOT/COLD PACK THERAPEUTIC EXERCISES NEUROMUSCULAR RE-ED MANUAL THERAPY FUNC ACTIVITY 15 MIN HOT/COLD PACK THERAPEUTIC EXERCISES NEUROMUSCULAR RE-ED MANUAL THERAPY FUNC ACTIVITY 15 MIN THERAPEUTIC EXERCISES MANUAL THERAPY FUNC ACTIVITY 15 MIN HOT/COLD PACK THERAPEUTIC EXERCISES NEUROMUSCULAR RE-ED MANUAL THERAPY HOT/COLD PACK PT RE-EVALUATION THERAPEUTIC EXERCISES NEUROMUSCULAR RE-ED MANUAL THERAPY HOT/COLD PACK THERAPEUTIC EXERCISES NEUROMUSCULAR RE-ED MANUAL THERAPY FUNC ACTIVITY 15 MIN HOT/COLD PACK THERAPEUTIC EXERCISES NEUROMUSCULAR RE-ED MANUAL THERAPY FUNC ACTIVITY 15 MIN THERAPEUTIC EXERCISES NEUROMUSCULAR RE-ED MANUAL THERAPY HOT/COLD PACK THERAPEUTIC EXERCISES MANUAL THERAPY FUNC ACTIVITY 15 MIN HOT/COLD PACK THERAPEUTIC EXERCISES MANUAL THERAPY FUNC ACTIVITY 15 MIN HOT/COLD PACK PT RE-EVALUATION THERAPEUTIC EXERCISES NEUROMUSCULAR RE-ED MANUAL THERAPY HOT/COLD PACK kathy Venegas THERAPEUTIC EXERCISES FUNC ACTIVITY 15 MIN NEUROMUSCULAR RE-ED MANUAL THERAPY HOT/COLD PACK THERAPEUTIC EXERCISES NEUROMUSCULAR RE-ED MANUAL THERAPY HOT/COLD PACK THERAPEUTIC EXERCISES NEUROMUSCULAR RE-ED MANUAL THERAPY HOT/COLD PACK THERAPEUTIC EXERCISES NEUROMUSCULAR RE-ED MANUAL THERAPY HOT/COLD PACK THERAPEUTIC EXERCISES NEUROMUSCULAR RE-ED MANUAL THERAPY HOT/COLD PACK THERAPEUTIC EXERCISES NEUROMUSCULAR RE-ED MANUAL THERAPY HOT/COLD PACK PT RE-EVALUATION THERAPEUTIC EXERCISES NEUROMUSCULAR RE-ED MANUAL THERAPY THERAPEUTIC EXERCISES NEUROMUSCULAR RE-ED MANUAL THERAPY HOT/COLD PACK THERAPEUTIC EXERCISES NEUROMUSCULAR RE-ED MANUAL THERAPY HOT/COLD PACK THERAPEUTIC EXERCISES NEUROMUSCULAR RE-ED MANUAL THERAPY HOT/COLD PACK THERAPEUTIC EXERCISES NEUROMUSCULAR RE-ED MANUAL THERAPY HOT/COLD PACK THERAPEUTIC EXERCISES NEUROMUSCULAR RE-ED MANUAL THERAPY HOT/COLD PACK THERAPEUTIC EXERCISES MANUAL THERAPY HOT/COLD PACK PT RE-EVALUATION THERAPEUTIC EXERCISES MANUAL THERAPY HOT/COLD PACK THERAPEUTIC EXERCISES MANUAL THERAPY ULTRASOUND THERAPY HOT/COLD PACK ELECTRIC STIMULATION UNATT THERAPEUTIC EXERCISES MANUAL THERAPY ULTRASOUND THERAPY HOT/COLD PACK ELECTRIC STIMULATION UNATT THERAPEUTIC EXERCISES MANUAL THERAPY ULTRASOUND THERAPY HOT/COLD PACK ELECTRIC STIMULATION UNATT THERAPEUTIC EXERCISES MANUAL THERAPY ULTRASOUND THERAPY HOT/COLD PACK ELECTRIC STIMULATION UNATT THERAPEUTIC EXERCISES MANUAL THERAPY HOT/COLD PACK ELECTRIC STIMULATION UNATT THERAPEUTIC EXERCISES MANUAL THERAPY HOT/COLD PACK ELECTRIC STIMULATION UNATT PT EVALUATION THERAPEUTIC EXERCISES MANUAL THERAPY HOT/COLD PACK ELECTRIC STIMULATION UNATT Advance Directives Directive Yes / No Effective Date File Name No Information Encounters Encounter Description Practice Location Reason(s) For Visit Diagnoses Date Provider Providers Copied on Encounter [address], [place], [place], [id number], tel:[phone] [place] No Information Dec-2 5 Chao Jett. [address] [place] [address], [address], [place], [facility], . tel:[phone] Referring Provider: Duane Llamas Jr, [address] [facility] 310, [place], [address]. tel:[phone] [place] [address], [place], [place], [id number], tel:[phone] [place] No Information Dec-2 4 5 [place], [place]. Referring Provider: Duane Llamas Jr, [address]66 [facility] 310, [place], [address]. tel:[phone] [address] [place] [address], [place], [place], [address], [place] tel:[phone] [place] No Information Dec-2 5 Chao Jett. [address] [place] [address], [address], [place], [facility], . tel:[phone] Referring Provider: Duane Llamas Jr, [address]166 [facility] 310, [place], [address]. tel:[phone] [address] [place] [address], [place], [place], [address], tel:[phone] [place] No Information Dec-1 5 Chao Jett. [address] [place] [address], [address], [place], [facility], . tel:[phone] Referring Provider: Duane Llamas Jr, [address] [facility] [address], [place], [address]. tel:[phone] [place] [address], [place], [place], [address], tel:[phone] [place] No Information Dec-1 5-201 5 Chao Jett. [address] [facility], [address], [place], [facility], . tel:[phone] Referring Provider: Duane Llamas Jr, [address] [address], [place], [address]. tel:[phone] [place] [address] [address] [facility], [place], [place], [address], tel:[phone] [place] No Information Dec-1 0-201 5 Chao Jett. [address] [place] [address], [address], [place], [facility], . tel:[phone] Referring Provider: Duane Llamas Jr, [address] [address], [place], [address]. tel:[phone] [address] [place] [address] [address] [address], [place], [place], [address], tel:[phone] [place] No Information Dec-0 3-201 5 Chao Jett. [address] [place] [address], [address], [place], [address], . tel:[phone] Referring Provider: Duane Llamas Jr, [address] [address], [place], [address]. tel:[phone] [address] [place] [address] [address] [address], [place], [place], [address], [place] tel:[phone] [place] Pain in left shoulderOther specified disorders of bone, shoulderCervi calgiaNeuralg ia and neuritis, unspecifiedMu scle weakness (generalized) Dec-0 2-201 5 [place]. Referring Provider: Duane Llamas Jr, [address] [facility] 310, [place], [address]. tel:[phone] [place] [address], [address] [facility] 300, [place], [place], [address], tel:[phone] [place] No Information Dec-1 0-201 4 Juarez Evelyne. [address] [facility], [address], [place], [address], [place]. tel:[phone] Referring Provider: Duane Llamas Jr, [address] [facility] [address], [place], [address]. tel:[phone] [place] [address], [address] [place], [place] [address], [place], [place], [address], [place] tel:[phone] [place] No Information 0 3-201 4 Juarez Evelyne. [address] [place] [address], [address], [place], [address], [place]. tel:[phone] Referring Provider: Duane Llamas Jr, [address] [facility] [address], [place], [address]. tel:[phone] [address] [place] [address], [address] [place], [place] [address], [place], [address], [place] tel:[phone] [place] No Information May-2 4-201 4 Schranck Johnie. [address] [place] [address], [address], [place], [address], [place]. tel:[phone] Referring Provider: Duane Llamas Jr, [address] [facility] [address], [place], [address]. tel:[phone] [place] [address], [place], [place], [address], [place] tel:[phone] [place] No Information 9-201 4 Juarez Evelyne. [address] [place] [address], [address], [place], [address], [place]. tel:[phone] Referring Provider: Duane Llamas Jr, [address] [facility] [address], [place], [address]. tel:[phone] [place] [address], [address] [place], [place] [address] [address], [place], [place], [address], [place] tel:[phone] [place] No Information 2-201 4 Juarez Evelyne. [address] [place] [address], [address], [place], [address], [place]. tel:[phone] Referring Provider: Duane Llamas Jr, [address] [facility] [address], [place], [address]. tel:[phone] [place] [address], [place], [place], [address], tel:[phone] [place] No Information Nov-1 0-201 4 Juarez Evelyne. [address] [place] [address], [address], [place], [facility], . tel:[phone] Referring Provider: Duane Llamas Jr, [address] [facility] [address], [place], [address]. tel:[phone] [address] [place] [address], [place], [place], [address], tel:[phone] [place] No Information Nov-0 7-201 4 Juarez Evelyne. [address] [place] [address], [address], [place], [facility], . tel:[phone] Referring Provider: Duane Llamas Jr, [address] [facility] [address], [place], [address]. tel:[phone] [address] [place] [address] [address], [place], [place], [address], tel:[phone] [place] No Information Nov-0 5-201 4 Juarez Evelyne. [address] [place] [address], [address], [place], [facility], . tel:[phone] Referring Provider: Duane Llamas Jr, [address] [facility] [address], [place], [address]. tel:[phone] [place] [address], [place], [address], tel:[phone] [place] No Information Apr-3 1-201 4 Juarez Evelyne. [address] [place] [address], [address], [place], [facility], . tel:[phone] Referring Provider: Duane Llamas Jr, [address]86 [facility] [address], [place], [address]. tel:[phone] [address] [place] [address] [address], [place], [place], [address], [place] tel:[phone] [place] No Information 4 Juarez Evelyne. [address] [place] [address], [address], [place], [address], . tel:[phone] Referring Provider: Duane Llamas Jr, [address]73 [facility] 310, [place], [address]. tel:[phone] [address] [place] [address], [place], [place], [address], [place] tel:[phone] [place] No Information 2- 4 Juarez Evelyne. [address] [place] [address], [address], [place], [address], [place]. tel:[phone] Referring Provider: Duane Llamas Jr, [address] [facility] 310, [place], [address]. tel:[phone] [address] [place] [address], [place], [place], [address], [place] tel:[phone] [place] No Information 4 Juarez Evelyne. [address] [place] [address], [address], [place], [address], [place]. tel:[phone] Referring Provider: Duane Llamas Jr, [address]82 [facility] [address], [place], [address]. tel:[phone] [place] [address], [place], [place], [address], [place] tel:[phone] [place] No Information 5- 4 Juarez Evelyne. [address] [place] [address], [address], [place], [address], [place]. tel:[phone] Referring Provider: Duane Llamas Jr, [address] [facility] [address], [place], [address]. tel:[phone] [address] [place] [address], [place], [place], [address], tel:[phone] [place] No Information 3-201 4 Juarez Evelyne. [address] [place] [address], [address], [place], [address], [place]. tel:[phone] Referring Provider: Duane Llamas Jr, [address] [facility] [address], [place], [address]. tel:[phone] [address] [place] [address], [place], [address], [place] tel:[phone] [place] No Information 0-201 4 Yanelis Chema. [address] [place] [address], [address], [place], [address], [place]. tel:[phone] Referring Provider: Duane Llamas Jr, [address] [facility] [address], [place], [address]. tel:[phone] [place] [address], [place], [place], [address], tel:[phone] [place] No Information 7-201 4 Juarez Evelyne. [address] [place] [address], [address], [place], [address], [place]. tel:[phone] Referring Provider: Duane Llamas Jr, [address] [facility] [address], [place], [address]. tel:[phone] [place] [address], [place], [address], [place] tel:[phone] [place] No Information 4-201 4 Juarez Evelyne. [address] [place] [address], [address], [place], [address], [place]. tel:[phone] Referring Provider: Duane Llamas Jr, [address] [facility] [address], [place], [address]. tel:[phone] [address] [place] [address], [place], [place], [address], tel:[phone] [place] No Information 1-201 4 Juarez Evelyne. [address] [place] [address], [address], [place], [address], . tel:[phone] Referring Provider: Duane Llamas Jr, [address]297 [facility] 310, [place], [address]. tel:[phone] [address] [place] [address], [place], [place], [address], tel:[phone] [place] No Information 4 Juarez Evelyne. [address] [place] [address], [address], [place], [facility], [place]. tel:[phone] Referring Provider: Duane Llamas Jr, [address] [facility] [address], [place], [address]. tel:[phone] [place] [address], [place], [place], [address], tel:[phone] [place] No Information 201 4 Juarez Evelyne. [address] [place] [address], [address], [place], [facility], . tel:[phone] Referring Provider: Duane Llamas Jr, 19012 [facility] [address], [place], [address]. tel:[phone] [address] [place] [address], [place], [place], [address], tel:[phone] [place] No Information 4 Juarez Evelyne. [address] [place] [address], [address], [place], [address], [place]. tel:[phone] Referring Provider: Duane Llamas Jr, [address] [facility] [address], [place], [address]. tel:[phone] [place] [address], [place], [place], [address], tel:[phone] [place] No Information 4 Juarez Evelyne. [address] [place] [address], [address], [place], [address], . tel:[phone] Referring Provider: Duane Llamas Jr, [address]87 [facility] [address], [place], [address]. tel:[phone] [place] [address], [place], [place], [address], tel:[phone] [place] No Information Dec-2 5-201 4 Muehl Joanne. [address] [place] [address], [address], [place], [facility], . tel:[phone] Referring Provider: Duane Llamas Jr, [address] [facility] [address], [place], [address]. tel:[phone] [address] [place] [address], [place], [place], [address], tel:[phone] [place] No Information Victoriano-0 6-201 3 Juarez Evelyne. [address] [place] [address], [address], [place], [facility], . tel:[phone] Referring Provider: Duane Llamas Jr, [address]209 [facility] [address], [place], [address]. tel:[phone] [place] [address]e [address], [place], [place], [address], tel:[phone] [place] No Information October-3 0-201 3 Juarez Evelyne. [address] [place] [address], [address], [place], [address], . tel:[phone] Referring Provider: Duane Llamas Jr, 30338 [facility] [address], [place], [address]. tel:[phone] [address] [place] [address], [place], [place], [address], tel:[phone] [place] No Information October-2 8-201 3 Juarez Evelyne. [address] [place] [address], [address], [place], [address], . tel:[phone] Referring Provider: Duane Llamas Jr, 10075 [facility] [address], [place], [address]. tel:[phone] [address] [place] [address], [place], [place], [address], [place] tel:[phone] [place] No Information May-2 2-201 3 Juarez Evelyne. [address] [place] [address], [address], [place], [facility], . tel:[phone] Referring Provider: Duane Llamas Jr, 17731 [facility] [address], [place], [address]. tel:[phone] [address] [place] [address], [place], [place], [address], [place] tel:[phone] [place] No Information May-2 1-201 3 Juarez Evelyne. [address] [place] [address], [address], [place], [facility], . tel:[phone] Referring Provider: Duane Llamas Jr, 58391 [facility] [address], [place], [address]. tel:[phone] [place] [place] [address], [place], [place], [address], [place] tel:[phone] [place] No Information May-0 8-201 3 Juarez Evelyne. [address] [place] [address], [address], [place], [address], [place]. tel:[phone] Referring Provider: Duane Llamas Jr, [address] [facility] [address], [place], [address]. tel:[phone] [address] [place] [address], [place], [place], [address], [place] tel:[phone] [place] No Information May-0 1-201 3 Juarez Evelyne. [address] [place] [address], [address], [place], [address], [place]. tel:[phone] Referring Provider: Duane Llamas Jr, 14589 [facility] [address], [place], [address]. tel:[phone] [address] [place] [address], [place], [place], [address], [place] tel:[phone] [place] No Information Sep-2 9-201 3 Juarez Evelyne. [address] [place] [address], [address], [place], [address], [place]. tel:[phone] Referring Provider: Duane Llamas Jr, [address]26 [facility] [address], [place], [address]. tel:[phone] [address] [place] [address], [place], [place], [address], [place] tel:[phone] [place] No Information Sep- 7-201 3 Juarez Evelyne. [address] [place] [address], [address], [place], [address], [place]. tel:[phone] Referring Provider: Duane Llamas Jr, [address] [facility] [address], [place], [address]. tel:[phone] [address] [place] [address], [place], [place], [address], [place] tel:[phone] [place] No Information Sep-1 5-201 3 Juarez Evelyne. [address] [place] [address], [address], [place], [address], [place]. tel:[phone] Referring Provider: Duane Llamas Jr, 54946 [facility] [address], [place], [address]. tel:[phone] [address] [place] [address], [place], [place], [address], [place] tel:[phone] [place] No Information Sep-1 2-201 3 Juarez Evelyne. [address] [place] [address], [address], [place], [address], [place]. tel:[phone] Referring Provider: Duane Llamas Jr, 42664 [facility] [address], [place], [address]. tel:[phone] [place] [address] [address], [place], [place], [address], [place] tel:[phone] [place] No Information Apr-1 0-201 3 Juarez Evelyne. [address] [place] [address], [address], [place], [facility], . tel:[phone] Referring Provider: Duane Llamas Jr, [address] [facility] [address], [place], [address]. tel:[phone] [place] [address], [place], [place], [address], tel:[phone] [place] No Information Apr-0 4-201 3 Juarez Evelyne. [address] [place] [address], [address], [place], [facility], . tel:[phone] Referring Provider: Duane Llamas Jr, 40824 [facility] [address], [place], [address]. tel:[phone] [address] [place] [address], [place], [address], tel:[phone] [place] No Information Apr-0 3-201 3 Juarez Evelyne. [address] [place] [address], [address], [place], [facility], . tel:[phone] Referring Provider: Duane Llamas Jr, 87768 [facility] [address], [place], [address]. tel:[phone] [address] [place] [address], [place], [address], tel:[phone] [place] No Information Mar-2 9-201 3 Juarez Evleyne. [address] [place] [address], [address], [place], [facility], . tel:[phone] Referring Provider: Duane Llamas Jr, 39719 [facility] [address], [place], [address]. tel:[phone] [address] [place] [address], [place], [address], tel:[phone] [place] No Information Mar-2 7-201 3 Juarez Evelyne. [address] [place] [address], [address], [place], [facility], . tel:[phone] Referring Provider: Duane Llamas Jr, [address], [address]. tel:[phone] [place] [address], [place], [address], [place] tel:[phone] [place] No Information Mar-2 5-201 3 Juarez Evelyne. [address] [place] [address], [facility] [address], [place], [address], . tel:[phone] Referring Provider: Duane Llamas Jr, [address] [facility] [address], [address]. tel:[phone] [place], [place] [address], [place], [place], [id number], [place] tel:[phone] [place] No Information Mar-2 1-201 3 Lazaro Stephensn. [address] [place] [address], [facility] [address], [address], . tel:[phone] Referring Provider: Duane Llamas Jr, [address], [address]. tel:[phone] [place] [address], [id number], [place] tel:[phone] [place] No Information Mar-2 0-201 3 Juarez Ev[place]. [address] [place] [address], [address], [place], [address], [place]. tel:[phone] Referring Provider: Duane Llamas Jr, [address], [address]. tel:[phone] [place], [place] [address], [place], [id number], [place] tel:[phone] [place] No Information Mar-1 8-201 3 Juarez Evelyne. [address] [place] [address], [address], [place], [address], [place]. tel:[phone] Referring Provider: Kenton Ricks, [address] [place], [address]. tel:[phone] [facility], [address] [place], [place] [address], [place], [id number], tel:[phone] [place] No Information Mar-1 5-201 3 Juarez Evelyne. [address] [place] [address], [facility], [place], [facility], [place]. tel:[phone] Referring Provider: Kenton Ricks, [address] [place], [address]. tel:[phone] [place], [place] [address], [place], [id number], [place] tel:[phone] [place] No Information Mar-1 3-201 3 Juarez Evelyne. [address] [place] [address], [facility] [address], [place], [facility], [place]. tel:[phone] Referring Provider: Kenton Ricks, [address] [place], [address]. tel:[phone] [place] [address], [id number], [place] tel:[phone] [place] No Information Mar-1 1-201 3 Juarez Evelyne. [address] [place] [address], [address], [facility], [place]. tel:[phone] Referring Provider: Kenton Ricks, [address] [place], [address]. tel:[phone] [place] [address] [place] [address], [id number], [place] tel:[phone] [place] No Information Mar-0 8-201 3 Juarez Evelyne. [address] [place] [address], [facility] [address], [place], [facility], [place]. tel:[phone] Referring Provider: Kenton Ricks, [address] [place], [address]. tel:[phone] [place] [address], [address] [place], [place] [address], [place], [id number], tel:[phone] [place] No Information Mar-0 6-201 3 Juarez Evelyne. [address] [place] [address] [facility], [place], [facility], [place]. tel:[phone] Referring Provider: Kenton Ricks, [address] [place], [address]. tel:[phone] [place] [address], [id number], tel:[phone] [place] No Information Mar-0 4-201 3 Juarez Evelyne. [address] [place] [address], [address], [place], [facility], [place]. tel:[phone] Referring Provider: Kenton Ricks, [address] [place], [address]. tel:[phone] [address] [place] [address], [id number], tel:[phone] [place] No Information Aug-0 1-201 3 Juarez Evelyne. [address] [place] [address], [address], [facility], [place]. tel:[phone] Referring Provider: Kenton Ricks, [address] [place], [address]. tel:[phone] [place] [address], [id number], tel:[phone] [place] No Information Aug-2 7-201 3 Juarez Veelyne. [address] [place] [address], [address], [facility], [place]. tel:[phone] Referring Provider: Kenton Ricks, [address] [place], [address]. tel:[phone] [phone] [place] [address], [id number], tel:[phone] [place] No Information 6-201 3 Juarez Evelyne. [address] [place] [address], [facility] [address], [place], [facility], [place]. tel:[phone] Referring Provider: Kenton Ricks, [address] [place], [address]. tel:[phone] [place] [address] [facility] [address], [place], [place], [id number], [place] tel:[phone] [place] No Information 3 Juarez Evelyne. [address] [place] [address], [address], [place], [address], [place]. tel:[phone] Referring Provider: Kenton Ricks, [address] [place], [address]. tel:[phone] [place] [address] [place], [place] [address], [place], [place], [id number], [place] tel:[phone] [place] No Information 3 Juarez Evelyne. [address] [place] [address], [facility], [place], [facility], [place]. tel:[phone] Referring Provider: Kenton Ricks, [address] [place], [address]. tel:[phone] [place] [address] [place], [place] [address], [place], [place], [id number], [place] tel:[phone] [place] No Information 3 Juarez Evelyne. [address] [place] [address], [facility], [place], [address], [place]. tel:[phone] Referring Provider: Kenton Ricks, [address] [place], [address]. tel:[phone] [place] [address] [place], [place] [address], [place], [place], [id number], [place] tel:[phone] [place] No Information 3 Juarez Evelyne. [address] [place] [address], [facility], [place], [address], [place]. tel:[phone] Referring Provider: Kenton Ricks, [address] [place], [address]. tel:[phone] [place] [address] [place], [place] [address], [place], [place], [id number], [place] tel:[phone] [place] No Information 3 Juarezcarlos Augustinei. [address] [facility], [address], [place], [address], [place]. tel:[phone] Referring Provider: Kenton Ricks, [address] [place], [address]. tel:[phone] [facility], [facility] [address], [id number], tel:[phone] [place] Pain in joint involving shoulder region 3 Juarez Evelyne. [address] [facility], [address], [place], [address], [place]. tel:[phone] Referring Provider: Kenton Ricks, [address] [employer] [facility], [place], [address]. tel:[phone] Family History Family Member Type Diagnosis Age [...]
--- OUTSIDE RECORDS SUMMARY | 2015-06-29 09:00 | XMS_ITS | Continuity of Care Document ---
Author Organization [employer] [place] Address [address] [place] [address] [address] [place] [address] Phone Care Team Providers Care Tipple Mechanic Name Role Phone Johnie Guidry PTA Unavailable [...] Diagnoses Date Provider Providers Copied on Encounter [address], [place], [place], [id number], tel:[phone] [place] No Information Dec-2 5 Chao Jett. [address] [place] [address], [address], [place] [place], . tel:[phone] Referring Provider: Duane Llamas Jr, [address] [facility], [place], [address]. tel:[phone] [place] [address] [place] [address]e [address], [place], [place], [address], tel:[phone] [place] No Information Dec-2 4 5 [place]. Referring Provider: Duane Llamas Jr, [address]141 [facility], [place], [address]. tel:[phone] [place] [address]e [address], [place], [place], [address], [place] tel:[phone] [place] No Information Dec-2 5 Chao Jett. [address] [place] [address], [address], [place], [facility] [place], . tel:[phone] Referring Provider: Duane Llamas Jr, [address] [facility] [address], [place], [address]. tel:[phone] [place], [place] [address]u[address], [place], [place], [address], tel:[phone] [place] No Information Dec-1 5 Chao Jett. [address] [place] [address], [address], [place], [facility] [place], . tel:[phone] Referring Provider: Duane Llamas Jr, 16481 [facility] [address], [place], [address]. tel:[phone] [place] [address]e [address], [place], [place], [address], tel:[phone] [place] No Information Dec-1 5-201 5 Chao Jett. [address] [facility], [place], [address], [place], [facility] [place], . tel:[phone] Referring Provider: Duane Llamas Jr, [address] [address], [place], [address]. tel:[phone] [place] [address] [address] [facility], [place], [place], [address], tel:[phone] [place] No Information Dec-1 0-201 5 Chao Jett. [address] [place] [address], [address], [place] [place], . tel:[phone] Referring Provider: Duane Llamas Jr, [address] [address], [place], [address]. tel:[phone] [place] [address] [address] [address], [place], [place], [address], tel:[phone] [place] No Information Dec-0 3-201 5 Chao Jett. [address] [place] [address], [address], [place], [address], . tel:[phone] Referring Provider: Duane Llamas Jr, [address] [address], [place], [address]. tel:[phone] [address] [place] [address] [address] [address], [place], [place], [address], [place] tel:[phone] [place] Pain in left shoulderOther specified disorders of bone, shoulderCervi calgiaNeuralg ia and neuritis, unspecifiedMu scle weakness (generalized) Dec-0 2-201 5 [place], [place]. Referring Provider: Duane Llamas Jr, [address] [facility] [address], [place], [address]. tel:[phone] [address] [place] [address], 2121 [facility] 300, [place], [place], [address], tel:[phone] [place] No Information Dec-1 0-201 4 Juarez Evelyne. [address] [facility], [place], [address], [place], [address], [place]. tel:[phone] Referring Provider: Duane Llamas Jr, [address] [facility] [address], [place], [address]. tel:[phone] [place] [address], [address] [place], [place] [address], [place], [place], [address], [place] tel:[phone] [place] No Information 0 3-201 4 Juarez Evelyne. [address] [place] [address], [address], [place], [address], [place]. tel:[phone] Referring Provider: Duane Llamas Jr, [address] [facility] [address], [place], [address]. tel:[phone] [address] [place] [address], [address] [place], [place] [address], [place], [place], [address], [place] tel:[phone] [place] No Information May-2 4-201 4 Schranck Johnie. [address] [place] [address], [address], [place], [address], [place]. tel:[phone] Referring Provider: Duane Llamas Jr, [address] [facility] [address], [place], [address]. tel:[phone] [place], [place] [address], [place], [place], [address], [place] tel:[phone] [place] No Information 9-201 4 Juarez Evelyne. [address] [place] [address], [address], [place], [address], [place]. tel:[phone] Referring Provider: Duane Llamas Jr, [address] [facility] [address], [place], [address]. tel:[phone] [place] [address], [address] [place], [place] [address], [place], [place], [address], [place] tel:[phone] [place] No Information 2-201 4 Juarez Evelyne. [address] [place] [address], [address], [place], [address], [place]. tel:[phone] Referring Provider: Duane Llamas Jr, [address] [facility] [address], [place], [address]. tel:[phone] [place], [place] [address]u[address], [place], [place], [address], tel:[phone] [place] No Information Nov-1 0-201 4 Juarez Evelyne. [address] [place] [address], [address], [place] [place], . tel:[phone] Referring Provider: Duane Llamas Jr, [address] [facility] [address], [place], [address]. tel:[phone] [place], [place] [address]u[address], [place], [place], [address], tel:[phone] [place] No Information Nov-0 7-201 4 Jaurez Evelyne. [address] [place] [address], [address], [place], [facility] [place], . tel:[phone] Referring Provider: Duane Llamas Jr, [address]207 [facility] [address], [place], [address]. tel:[phone] [place] [address] [address], [place], [place], [address], tel:[phone] [place] No Information Nov-0 5-201 4 Juarez Evelyne. [address] [place] [address], [address], [place] [facility], [facility] [place], . tel:[phone] Referring Provider: Duane Llamas Jr, [address] [facility] [address], [place], [address]. tel:[phone] [address] [place] [address], [place], [address], tel:[phone] [place] No Information Apr-3 1-201 4 Juarez Evelyne. [address] [place] [address], [address], [place] [facility] [place], . tel:[phone] Referring Provider: Duane Llamas Jr, [address] [facility] [address], [place], [address]. tel:[phone] [address] [place] [address] [address], [place], [place], [address], [place] tel:[phone] [place] No Information 4 Juarez Evelyne. [address] [place] [address], [address], [place], [address], . tel:[phone] Referring Provider: uDane Llamas Jr, 55149 [facility] 310, [place], [address]. tel:[phone] [place] [address]u[address], [place], [place], [address], [place] tel:[phone] [place] No Information 2- 4 Juarez Evelyne. [address] [place] [address], [address], [place], [address], [place]. tel:[phone] Referring Provider: Duane Llamas Jr, [address]2451 [facility] 310, [place], [address]. tel:[phone] [place] [address]u[address], [place], [place], [address], [place] tel:[phone] [place] No Information 4 Juarez Evelyne. [address] [place] [address], [address], [place], [address], [place]. tel:[phone] Referring Provider: Duane Llamas Jr, 05907 [facility] 310, [place], [address]. tel:[phone] [place] [address]u[address], [place], [place], [address], [place] tel:[phone] [place] No Information 5- 4 Juarez Evelyne. [address] [place] [address], [address], [place], [address], [place]. tel:[phone] Referring Provider: Duane Llamas Jr, [address] [facility] [address], [place], [address]. tel:[phone] [place], [place] [address]u[address], [place], [place], [address], tel:[phone] [place] No Information 3-201 4 Juarez Evelyne. [address] [place] [address], [address], [place], [address], [place]. tel:[phone] Referring Provider: Duane Llamas Jr, [address] [facility] [address], [place], [address]. tel:[phone] [place], [place] [address]u[address], [place], [place], [address], [place] tel:[phone] [place] No Information 0-201 4 Yanelis Chema. [address] [place] [address], [address], [place], [address], [place]. tel:[phone] Referring Provider: Duane Llamas Jr, [address]94 [facility] [address], [place], [address]. tel:[phone] [address] [place] [address]e [address], [place], [place], [address], tel:[phone] [place] No Information 7-201 4 Juarez Evelyne. [address] [place] [address], [address], [place], [address], [place]. tel:[phone] Referring Provider: Duane Llamas Jr, [address]39 [facility] [address], [place], [address]. tel:[phone] [place] [address]u[address], [place], [address], [place] tel:[phone] [place] No Information 4-201 4 Juarez Evelyne. [address] [place] [address], [address], [place], [address], [place]. tel:[phone] Referring Provider: Duane Llamas Jr, [address] [facility] [address], [place], [address]. tel:[phone] [place], [place] [address]u[address], [place], [place], [address], tel:[phone] [place] No Information 1-201 4 Juarez Evelyne. [address] [place] [address], [address], [place], [address], . tel:[phone] Referring Provider: Duane Llamas Jr, [address]81 [facility] 310, [place], [address]. tel:[phone] [place] [address]e [address], [place], [place], [address], tel:[phone] [place] No Information 4 Juarez Evelyne. [address] [place] [address], [address], [place], [place], [place]. tel:[phone] Referring Provider: Duane Llamas Jr, [address] [facility] [address], [place], [address]. tel:[phone] [place] [address]e [address], [place], [place], [address], tel:[phone] [place] No Information 201 4 Juarez Evelyne. [address] [place] [address], [address], [place] [facility], [facility] [place], . tel:[phone] Referring Provider: Duane Llamas Jr, [address] [facility] [address], [place], [address]. tel:[phone] [place] [address]e [address], [place], [place], [address], tel:[phone] [place] No Information 4 Juarez Evelyne. [address] [place] [address], [address], [place], [address], [place]. tel:[phone] Referring Provider: Duane Llamas Jr, [address] [facility] [address], [place], [address]. tel:[phone] [place] [address]e [address], [place], [place], [address], tel:[phone] [place] No Information 4 Juarez Evelyne. [address] [place] [address], [address], [place], [address], . tel:[phone] Referring Provider: Duane Llamas Jr, [address] [facility] [address], [place], [address]. tel:[phone] [place], [place] [address]u[address], [place], [place], [address], tel:[phone] [place] No Information Dec-2 5-201 4 Muehl Joanne. [address] [place] [address], [address], [place] [facility], [facility], . tel:[phone] Referring Provider: Duane Llamas Jr, [address] [facility] [address], [place], [address]. tel:[phone] [place], [place] [address]u[address], [place], [place], [address], tel:[phone] [place] No Information Victoriano-0 6-201 3 Juarez Evelyne. [address] [place] [address], [address], [place] [facility], [facility] [place], . tel:[phone] Referring Provider: Duane Llamas Jr, [address] [facility] [address], [place], [address]. tel:[phone] [address] [place] [address]e [address], [place], [place], [address], tel:[phone] [place] No Information October-3 0-201 3 Juarez Evelyne. [address] [place] [address], [address], [place], [address], . tel:[phone] Referring Provider: Duane Llamas Jr, 71828 [facility] [address], [place], [address]. tel:[phone] [place], [place] [address]u[address], [place], [place], [address], tel:[phone] [place] No Information October-2 8-201 3 Juarez Evelyne. [address] [place] [address], [address], [place], [address], . tel:[phone] Referring Provider: Duane Llamas Jr, [address]27 [facility] [address], [place], [address]. tel:[phone] [place], [place] [address]u[address], [place], [place], [address], [place] tel:[phone] [place] No Information May-2 2-201 3 Juarez Evelyne. [address] [place] [address], [address], [facility], demolished 2001, . tel:[phone] Referring Provider: Duane Llamas Jr, [address]44 [facility] [address], [place], [address]. tel:[phone] [place], [place] [address]u[address], [place], [place], [address], [place] tel:[phone] [place] No Information May-2 1-201 3 Juarez Evelyne. [address] [place] [address], [address], [place] [facility], demolished 2001, . tel:[phone] Referring Provider: Duane Llamas Jr, [address]478 [facility] [address], [place], [address]. tel:[phone] [place], [place] [address]u[address], [place], [place], [address], [place] tel:[phone] [place] No Information May-0 8-201 3 Juarez Evelyne. [address] [place] [address], [address], [place], [address], [place]. tel:[phone] Referring Provider: Duane Llamas Jr, 15684 [facility] [address], [place], [address]. tel:[phone] [place], [place] [address]u[address], [place], [place], [address], [place] tel:[phone] [place] No Information May-0 1-201 3 Juarez Evelyne. [address] [place] [address], [address], [place], [address], [place]. tel:[phone] Referring Provider: Duane Llamas Jr, 15427 [facility] [address], [place], [address]. tel:[phone] [place], [place] [address]u[address], [place], [place], [address], [place] tel:[phone] [place] No Information Sep-2 9-201 3 Juarez Evelyne. [address] [place] [address], [address], [place], [address], [place]. tel:[phone] Referring Provider: Duane Llamas Jr, [address]12 [facility] [address], [place], [address]. tel:[phone] [place], [place] [address]u[address], [place], [place], [address], [place] tel:[phone] [place] No Information Sep- 7-201 3 Juarez Evelyne. [address] [place] [address], [address], [place], [address], [place]. tel:[phone] Referring Provider: Duane Llamas Jr, [address] [facility] [address], [place], [address]. tel:[phone] [place] [address]u[address], [place], [place], [address], [place] tel:[phone] [place] No Information Sep-1 5-201 3 Juarez Evelyne. [address] [place] [address], [address], [place], [address], [place]. tel:[phone] Referring Provider: Duane Llamas Jr, [address]83 [facility] [address], [place], [address]. tel:[phone] [place] [address], [place], [place], [address], [place] tel:[phone] [place] No Information Sep-1 2-201 3 Juarez Evelyne. [address] [place] [address], [address], [place], [address], [place]. tel:[phone] Referring Provider: Duane Llamas Jr, [address]34 [facility] [address], [place], [address]. tel:[phone] [address] [place] [address] [address], [place], [place], [address], [place] tel:[phone] [place] No Information Apr-1 0-201 3 Juarez Evelyne. [address] [place] [address], [address], [place], . tel:[phone] Referring Provider: Duane Llamas Jr, [address] [facility] [address], [place], [address]. tel:[phone] [place] [address]e 300, [place], [place], [address], tel:[phone] [place] No Information Apr-0 4-201 3 Juarez Evelyne. [address] [place] [address], [address], [place] [facility], [facility] [place], . tel:[phone] Referring Provider: Duane Llamas Jr, 8[address]97 [facility] [address], [place], [address]. tel:[phone] [address] [place] [address]e [address], [place], [address], tel:[phone] [place] No Information Apr-0 3-201 3 Juarez Evelyne. [address] [place] [address], [address], [place] [facility], [facility] 2001, . tel:[phone] Referring Provider: Duane Llamas Jr, [address]7600 [facility] [address], [place], [address]. tel:[phone] [address] [place] [address]e [address], [address], tel:[phone] [place] No Information Mar-2 9-201 3 Juarez Evelyne. [address] [place] [address], [address], [place] [facility], [facility] 2001, . tel:[phone] Referring Provider: Duane Llamas Jr, [address]5499 [facility] [address], [place], [address]. tel:[phone] [address] [place] [address]e [address], [place], [address], tel:[phone] [place] No Information Mar-2 7-201 3 Juarez Evelyne. [address] [place] [address], [address], [place] [facility], [facility] 2001, . tel:[phone] Referring Provider: Duane Llamas Jr, [address], [address]. tel:[phone] [address] [place] [address]e [address], [place], [address], [place] tel:[phone] [place] No Information Mar-2 5-201 3 Juarez Evelyne. [address] [place] [address], [facility] [address], [place], [address], . tel:[phone] Referring Provider: Duane Llamas Jr, [address]355 [facility] [address], [address]. tel:[phone] [address] [place] [address]e [address], [place], [place], [address], [place] tel:[phone] [place] No Information Mar-2 1-201 3 Lazaro Stephensn. [address] [place] [address], [facility] [address], [place], [address], . tel:[phone] Referring Provider: Duane Llamas Jr, [address], [address]. tel:[phone] [place] [address], [id number], [place] tel:[phone] [place] No Information Mar-2 0-201 3 Juarez Evelyne. [address] [place] [address], [address], [place], [address], [place]. tel:[phone] Referring Provider: Duane Llamas Jr, [address], [address]. tel:[phone] [address] [place] [address]e [address], [place], [address], [place] tel:[phone] [place] No Information Mar-1 8-201 3 Juarez Evelyne. [address] [place] [address], [address], [place], [address], [place]. tel:[phone] Referring Provider: Kenton Ricks, [address] [place], [address]. tel:[phone] [facility], [address] [place], [place] [address]e [address], [place], [address], tel:[phone] [place] No Information Mar-1 5-201 3 Juarez Evelyne. [address] [place] [address], [facility] 105, [place] [facility], [place], [place]. tel:[phone] Referring Provider: Kenton Ricks, [address] [place], [address]. tel:[phone] [place] [address] [place] [address]e [address], [place], [address], [place] tel:[phone] [place] No Information Mar-1 3-201 3 Juarez Evelyne. [address] [place] [address], [facility] [address] [facility], [place], [place]. tel:[phone] Referring Provider: Kenton Ricks, [address] [place], [address]. tel:[phone] [address] [place] [address], [id number], [place] tel:[phone] [place] No Information Mar-1 1-201 3 Juarez Evelyne. [address] [place] [address], [address], [facility], [place]. tel:[phone] Referring Provider: Kenton Ricks, [address] [place], [address]. tel:[phone] [place] [address] [place] [address], [id number], [place] tel:[phone] [place] No Information Mar-0 8-201 3 Juarez Evelyne. [address] [place] [address], [facility] [address], [facility], demolished [place], [place]. tel:[phone] Referring Provider: Kenton Ricks, [address] [place], [address]. tel:[phone] [address] [place] [address], [address] [place], [place] [address]e [address], [place], [address], tel:[phone] [place] No Information Mar-0 6-201 3 Juarez Evelyne. [address] [place] [address] [facility] 105, [place] [facility], demolished [place], [place]. tel:[phone] Referring Provider: Kenton Ricks, [address] [place], [address]. tel:[phone] [address] [place] [address], [id number], tel:[phone] [place] No Information Mar-0 4-201 3 Juarez Evelyne. [address] [place] [address], [address], [place] [facility], [place], [place]. tel:[phone] Referring Provider: Kenton Ricks, [address] [place], [address]. tel:[phone] [address] [place] [address], [id number], tel:[phone] [place] No Information Aug-0 1-201 3 Juarez Evelyne. [address] [place] [address], [address], [facility], [facility], [place]. tel:[phone] Referring Provider: Kenton Ricks, [address] [place], [address]. tel:[phone] [address] [place] [address], [id number], tel:[phone] [place] No Information Aug-2 7-201 3 Juarez Evelyne. [address] [place] [address], [address], [facility], [facility] [place], [place]. tel:[phone] Referring Provider: Kenton Ricks, [address] [place], [address]. tel:[phone] [address] [place] [address], [id number], tel:[phone] [place] No Information 6-201 3 Juarez Evelyne. [address] [place] [address], [facility] [address], [facility], demolished [place], [place]. tel:[phone] Referring Provider: Kenton Ricks, [address] [place], [address]. tel:[phone] [address] [place] [address] [facility] [address], [place], [place], [address], [place] tel:[phone] [place] No Information 3 Juarez Evelyne. [address] [place] [address], [address], [place], [address], [place]. tel:[phone] Referring Provider: Kenton Ricks, [address] [place], [address]. tel:[phone] [address] [place] [address] [place], [place] [address]u[address], [place], [place], [address], [place] tel:[phone] [place] No Information 3 Juarez Evelyne. [address] [place] [address], [facility] 105, [place] [facility], [place], [place]. tel:[phone] Referring Provider: Kenton Ricks, [address] [place], [address]. tel:[phone] [address] [place] [address] [place], [place] [address]u[address], [place], [place], [address], [place] tel:[phone] [place] No Information 3 Juarez Evelyne. [address] [place] [address], [facility] 105, [place], [address], [place]. tel:[phone] Referring Provider: Kenton Ricks, [address] [place], [address]. tel:[phone] [address] [place] [address] [place], [place] [address], [place], [place], [id number], [place] tel:[phone] [place] No Information 3 Juarez Evelyne. [address] [place] [address], [facility] [address], [place], [address], [place]. tel:[phone] Referring Provider: Kenton Ricks, [address] [place], [address]. tel:[phone] [id number] [place] [address] [place], [place] [address], [place], [place], [id number], [place] tel:[phone] [place] No Information 3 Juarezcarlos Augustinei. [address] [facility], [place], [address], [place], [address], [place]. tel:[phone] Referring Provider: Kenton Ricks, [address] [place], [address]. tel:[phone] [address] [place], [facility] [address], [id number], tel:[phone] [place] Pain in joint involving shoulder region [address]. [address] [facility], [place], [address], [place], [address], [place]. tel:[phone] Referring Provider: Kenton Ricks, [address] [facility], [place], [address]. tel:[phone] Family History Family Member Type Diagnosis Age [...]
[2025-04-07] VITALS (7 sets, daily range): BP systolic 125–169; BP diastolic 60–111; PULSE 60–87; RESP 15–20; TEMP 36.8–37.1; O2SAT 97–100
--- NOTE | ~2025-04-07 | US_ITS ---
EXAMINATION: US scrotum doppler DATE: 04/07/2025 21:07 INDICATION: Testicular pain TECHNIQUE: Testicular sonogram utilizing grayscale and Doppler COMPARISON: None. FINDINGS: The right testis measures 2.9 x 2.4 x 1.6 cm. The left testis measures 2.8 x 2.8 x 2.2 cm. Symmetric normal grayscale appearance to both testes. The right epididymis is normal with normal vascular flow. The left epididymis appears enlarged with heterogeneous echogenicity and prominent asymmetric diffuse increased vascular flow on color Doppler consistent with epididymitis. Persistent lingular mild asymmetric increased vascular flow in the portion of the left testis closest to the epididymis suspicious for early orchitis. There is no varicocele or hydrocele. There is asymmetric left scrotal edema IMPRESSION: 1. Enlarged and hyperemic left epididymis and mild asymmetric increased vascular flow at the left testis suspicious for left epididymitis and early orchitis. Reviewed, dictated and finalized at location A. IMPRESSION: 1. Enlarged and hyperemic left epididymis and mild asymmetric increased vascul ar flow at the left testis suspicious for left epididymitis and early orchitis.
--- NOTE | ~2025-04-07 | CT_ITS ---
CT HEAD NON-CONTRAST Clinical History: headache Comparison: 10/13/2019 Technique: Unenhanced axial images skull base to vertex Coronal, sagittal reformats CT images acquired with automatic exposure control for dose reduction DLP: 757 mGy-cm Findings: Left lateral scalp soft tissue contusion. Mild global atrophy. Mild white matter changes typically chronic microvascular ischemic disease. Sulci, ventricles: Unremarkable. No intracerebral hemorrhage. No evidence acute territorial infarct. No mass effect, midline shift. Bony calvarium intact. Visualized paranasal sinuses: Clear. Mastoid air cells: Clear. IMPRESSION: 1. No acute intracranial findings. Reviewed, dictated and finalized at location R.
--- OUTSIDE RECORDS SUMMARY | 2025-04-07 19:30 | XMS_ITS | Encounter Summary ---
Author Organization [facility] Address [address] [place] [address] Care Team Providers Care Weigher Packing Name Role Phone Kenton Ricks MD Primary Care Provider + [phone] Pebbles Nelson MD Unavailable [phone] Aylin Russ MD Unavailable [phone] Maricruz Ramirez NP Unavailable [phone] Joanne Lopez RN Unavailable Padmini Ben Walker MD PhD Unavailable [phone] Giovanna Alexis MD Unavailable Abby Higgins MD PhD Unavailable + Adrian Martinez MD Unavailable [phone] Vera Pérez Unavailable [phone] Jim Frausto MD Unavailable [phone] Reason for Visit * Reason Comments Testicle Pain L testicle swelling 2-3 x its normal size. C/o pain when sitting, walking and urinating. Ongoing 2 days Encounter Details Date Type Department Care Team (Late st Contact Info) Description 04/07/2025 7:30 PM CDT Office Visit [facility] Convenient Care at [address] [address] Rick Alvarez NP [address] [place] [address] [address] [place] [address] Pain in left testicle (Primary Dx); Swelling of left testicle Social History Tobacco Use Types Packs/Day Years Used Date Smoking Tobacco: Former Cigarettes Passive Smoke Exposure: Never Smokeless Tobacco: Never Comments:Occasional smoking in college Alcohol Use Standard [...] materials from doctor or pharmacy Sometimes 09/03/2023 Humiliation, Afraid, Rape, and Kick questionnair e [...] often do you attend chur ch or baptist services? More than 4 times per year 01/13/2025 Do you belong to any clubs o r organizations such as sikhism groups, unions, fraternal or athletic groups, or [...] Date Recorded PHQ-2 Total Score 1 09/21/2024 [facility] of Occupat ional Health - Occupational Stress [...] exercise at this level? 0 min 09/20/2024 PRAPARE - Transportation Answer Date Re corded [...] in a senior living (including now)? No 11/12/2023 PHQ-9 Answer Date [...] any time in the past 12 m [facility], were you homeless or living in a senior living (including now)? No 01/13/2025 Social Connection and Isolation Panel Answer Date Recorded In a typical week, how many times do you talk on the phone with family, friends, or neighbors? More than three times a week 04/01/2025 How often do you get togethe r with friends or relatives? More than three times a week 04/01/2025 How often do you attend chur ch or baptist services? More than 4 times per year 04/01/2025 Do you belong to any clubs o r organizations such as sikhism groups, unions, fraternal or athletic groups, or school groups? Yes 04/01/2025 How often do you attend meet ings of the clubs or organizations you belong to? More than 4 times per year 04/01/2025 Are you , , di vorced, , never , or living with a partner? 04/01/2025 Overall Financial Resource Strain (CARDIA) Answe r Date Recorded How hard is it for you to pa y for the very basics like food, housing, medical care, and heating? Hard 04/01/2025 Hunger Vital Sign Answer Date Recorded Within the past 12 months, y ou worried that your food would run out before you got the money to buy more. Sometimes true Within the past 12 months, t he food you bought just didn't last and you didn't have money to get more. Sometimes true 07/2024 PRAPARE - Transportation Answer Date Re corded In the past 12 months, has l ack of transportation kept you from medical appointments or from getting medications? No 07/2024 In the past 12 months, has l ack of transportation kept you from meetings, work, or from getting things needed for daily living? No 04/01/2025 Housing Stability Vital Sign Answer Iván e Recorded In the last 12 months, was t here a time when you were not able to pay the mortgage or rent on time? No 04/01/2025 In the past 12 months, how m any times have you moved where you were living? 0 04/01/2025 At any time in the past 12 m [facility], were you homeless or living in a senior living (including now)? No 04/01/2025 [facility] Utilities Answer Date Recorded In the past 12 months has th e electric, gas, oil, or water company threatened to shut off services in your home? No 04/01/2025 Personal Safety Answer Date Recorded Have you ever been in or are you currently in a harmful physical or emotional relationship or is someone making you feel afraid or unsafe? Denies 03/31/2025 Sex and Gender Information Value Date Recorded Sex Assigned at Not on file Legal Sex Male 12:58 AM COUNTER SERVER Gender Identity Male 11/11/2018 10:31 AM CDT Sexual Orientation Straight 06/09/2019 5: 34 PM COUNTER SERVER documented as of this encounter Last Filed Vital Signs Vital Sign Reading Time Taken Comments Blood Pressure 128/74 04/07/2025 6:57 PM CDT Pulse 61 04/07/2025 6:57 PM CDT Temperature 36.9 C (98.4 F) 04/07/2025 6:57 PM CDT Respiratory Rate 20 04/07/2025 6:57 PM CDT Oxygen Saturation 99% 04/07/2025 6:57 PM CDT Inhaled Oxygen Concentration - - Weight 97.5 kg (215 lb) 04/07/2025 6:57 PM CDT Height - - Body Mass Index 31.75 03/31/2025 9:39 PM CDT documented in this encounter Plan of Treatment Not on file documented as of this encounter Visit Diagnoses Diagnosis Pain in left testicle- Primary Unspecified disorder of male genital organs Swelling of left testicle Edema of male genital organs documented in this encounter Care Teams Weigher Packing Relationship Specialty Start Date End Date Kenton Ricks MD PCP - General 08/14/16 Pebbles Nelson MD Referring Physician Cardiology 02/07/19 Aylin Russ MD [address] [facility] [address] [place] [address] Referring Physician Pulmonary Disease 02/07/19 Maricruz Ramirez NP [facility] [facility] [address] [place] [address] Nurse Practitioner Cardiovascular Disease 09/25/21 Joanne Lopez, [place] Registered Nurse Pulmonary Disease 08/24/22 Ben Chahal MD PhD 10 [facility] # 2 [place] [address] Medical Oncologist/Hematologis t Medical Oncology 10/05/22 Giovanna Alexis MD [address] [place] [address] Radiation Oncologist Radiation Oncology 03/09/23 Abby Higgins MD PhD [address] DIV IM MEDICAL ONCOLOGY, [facility] 7A, 7B, 7C [place] [address] Medical Oncologist/Hematologis t Medical Oncology 05/10/23 Adrian Martinez MD [address] DIV SURG TRANSPLANT, [address] [place] [address] Surgical Oncologist Surgical Oncology 05/28/23 Vera Pérez PA [address] [id number] [place] [address] Physician Chemical Tester Colon and Rectal Surgery 09/13/23 Jim Frausto MD [address] [facility] [phone] [place] [address] Surgeon Colon and Rectal Surgery 11/21/23 documented as of this encounter
--- OUTSIDE RECORDS SUMMARY | 2025-04-07 19:30 | XMS_ITS | Encounter Summary ---
Author Organization [facility] Address [address] [place] [address] Care Team Providers Care Autocad Electrical Designer Name Role Phone Kenton Ricks MD Primary Care Provider + [phone] Pebbles Nelson MD Unavailable Aylin Russ MD Unavailable [phone] Maricruz Ramirez NP Unavailable [phone] Joanne Lopez RN Unavailable Padmini Ben Walker MD PhD Unavailable [phone] Giovanna Alexis MD Unavailable Abby Higgins MD PhD Unavailable + Adrian Martinez MD Unavailable [phone] Vera Pérez Unavailable [phone] Jim Frausto MD Unavailable [phone] Reason for Visit * Reason Comments Testicle Pain L testicle swelling 2-3 x its normal size. C/o pain when sitting, walking and urinating. Ongoing 2 days Encounter Details Date Type Department Care Team (Late st Contact Info) Description 04/07/2025 7:30 PM CDT Office Visit [facility] Medical Group Convenient Care at [address] [address] Rick Alvarez NP [address] [place] [address] [address] [place] [address] Pain in left testicle (Primary [...] often do you attend chur ch or latter day services? More than 4 times per year 01/13/2025 Do you belong to any clubs o r organizations such as hoahaoism groups, unions, fraternal or athletic groups, or [...] Date Recorded PHQ-2 Total Score 1 09/21/2024 [facility] [place] of Occupat ional Health - Occupational Stress [...] place to sleep or slept in a correction (including now)? No 11/12/2023 PHQ-9 Answer Date [...] any time in the past 12 m [facility], were you homeless or living in a correction (including now)? No 01/13/2025 Social Connection and Isolation Panel Answer Date Recorded In a typical week, how many times do you talk on the phone with family, friends, or neighbors? More than three times a week 04/01/2025 How often do you get togethe r with friends or relatives? More than three times a week 04/01/2025 How often do you attend chur ch or latter day services? More than 4 times per year 04/01/2025 Do you belong to any clubs o r organizations such as hoahaoism groups, unions, fraternal or athletic groups, or [...] any time in the past 12 m [facility], were you homeless or living in a correction (including now)? 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 Gender Identity Male 11/11/2018 10:31 AM CDT Sexual Orientation Straight 06/09/2019 5: 34 PM PASTRY COOK HELPER documented as of this encounter Last Filed [...] organs documented in this encounter Care Teams Autocad Electrical Designer Relationship Specialty Start Date End Date Kenton Ricks MD PCP - General 08/14/16 Pebbles Nelson MD Referring Physician Cardiology 02/07/19 Aylin Russ MD [address] [facility] [address] [place] [address] Referring Physician Pulmonary Disease 02/07/19 Maricruz Ramirez NP [address] [facility] [address] [place] [address] Nurse Practitioner Cardiovascular Disease 09/25/21 Joanne Lopez, [place] Registered Nurse Pulmonary Disease 08/24/22 Ben Chahal MD PhD 10 [facility] # 2 [place] [address] Medical Oncologist/Hematologis t Medical Oncology 10/05/22 Giovanna Alexis MD [address] [place] [address] Radiation Oncologist Radiation Oncology 03/09/23 Abby Higgins MD PhD [address] DIV IM MEDICAL ONCOLOGY, [facility] 7A, 7B, 7C [place] [address] Medical Oncologist/Hematologis t Medical Oncology 05/10/23 Adrian Martinez MD [address] DIV SURG TRANSPLANT, [address] [place] [address] Surgical Oncologist Surgical Oncology 05/28/23 Vera Pérez PA [address] [id number] [place] [address] Physician Animal Sitter Colon and Rectal Surgery 09/13/23 Jim Frausto MD [address] [facility] [phone] [place] [address] Surgeon Colon and Rectal Surgery 11/21/23 documented as of this encounter
--- OUTSIDE RECORDS SUMMARY | 2025-04-07 19:38 | XMS_ITS | Encounter Summary ---
Author Organization [facility] Address [address] [place] [address] Phone Care Team Providers Care Deputy Probation Officer Name Role Phone Kenton Ricks MD Primary Care Provider + [phone] Kenton Ricks MD Primary Care Provider + [phone] Pebbles Nelson MD Unavailable [phone] Aylin Russ MD Unavailable [phone] Maricruz Ramirez NP Unavailable [phone] Joanne Lopez RN Unavailable Padmini Leatha Carter Unavailable Unavailable Ben Chahal MD PhD Unavailable [phone] Chace Oliva MD Unavailable [phone] Giovanna Alexis MD Unavailable Taisha Suarez RN Unavailable Unavaila Sandra Aguirre MD Unavailable [phone] Abby Higgins MD PhD Unavailable + Adrian Martinez MD Unavailable [phone] Vera Pérez Unavailable [phone] Jim Frausto MD Unavailable Анна Robert RN Unavailable [phone] Encounter Details Date Type Department Care Team (Late st Contact Info) Description 06/02/2016 Orders Only [facility] Provider, MD Max [address] [place] [address] Social History Tobacco Use Types Packs/Day Years Used Date Smoking Tobacco: Never Assessed Sex and Gender Information Value Date Recorded Sex Assigned at Not on file Legal Sex Male 12:58 AM PIPELINE SUPERINTENDENT DIVISION Gender Identity Male 11/11/2018 10:31 AM CDT Sexual Orientation Straight 06/09/2019 5: 34 PM PIPELINE SUPERINTENDENT DIVISION documented as of this encounter Plan of [...] COVID: Suspected 06/07/2023 06/07/2023 06/07/2023 12:46 PM PIPELINE SUPERINTENDENT DIVISION COVID19 06/07/2023 06/07/2023 06/22/2023 3:06 AM PIPELINE SUPERINTENDENT DIVISION COVID: Recovered Comment:Added based on recent COVID infection. 06/22/2023 06/22/2023 09/20/2023 3:05 AM C DT COVID: Suspected 07/24/2023 07/24/2023 07/24/2023 3:53 PM PIPELINE SUPERINTENDENT DIVISION Diarrhea 07/30/2023 07/30/2023 08/13/2023 3:05 AM PIPELINE SUPERINTENDENT DIVISION COVID: Suspected 08/30/2023 08/30/2023 08/30/2023 4:52 PM PIPELINE SUPERINTENDENT DIVISION COVID: Suspected 10/12/2023 10/12/2023 10/12/2023 7:57 PM CDT Rhino/Enterovirus 10/12/2023 10/12/2023 10/26/2023 3:05 AM CDT COVID: Suspected 07/10/2024 07/10/2024 07/10/2024 4:53 PM PIPELINE SUPERINTENDENT DIVISION COVID: Suspected Comment:07/16/2024 IP Review: no outstanding test, last RPP negative. Mary Tiwari RN 07/16/2024 07/16/2024 10:51 AM PIPELINE SUPERINTENDENT DIVISION COVID19 Comment:07/16/2024 IP Review: added by RN, RPP negative. Mary Tiwari RN 07/16/2024 07/16/2024 07/16/2024 10:51 AM PIPELINE SUPERINTENDENT DIVISION MRSA Comment:nasalMRSA Isolation Alf 09/03/24 07/16/2024 08/15/2024 09/03/2024 6:[address] C. difficile suspected 07/19/2024 07/19/202407/19 2:34 PM PIPELINE SUPERINTENDENT DIVISION COVID: Suspected 07/23/2024 07/23/2024 07/23/2024 11:28 PM PIPELINE SUPERINTENDENT DIVISION C. difficile suspected 07/23/2024 07/24/202407/24 10:31 AM PIPELINE SUPERINTENDENT DIVISION Norovirus suspected 07/23/2024 07/24/2024 07/24/19 9:37 AM PIPELINE SUPERINTENDENT DIVISION VRE Comment:Contact Precautions (gown and gloves) - not eligible for IP review until 6 months after positive culture - Jerod QURESHI, CON[place] 10/01/24 07/24/2024 09/20/2024 03/19/2025 7:26 PM C DT COVID: Suspected 08/09/2024 08/09/2024 08/09/2024 9:40 AM PIPELINE SUPERINTENDENT DIVISION Influenza, adult Comment:08/26/2024 IP Review: pt afebrile but on antipyretics. Needs 24 hours off antipyretics and symptoms significantly improved/resolved in order for isolation to be discontinued. Mary Tiwari RN 08/15/2024 08/15/2024 08/29/2024 3:06 AM PIPELINE SUPERINTENDENT DIVISION Coronavirus, droplet 08/15/2024 08/15/202408/29/ 025 3:06 AM PIPELINE SUPERINTENDENT DIVISION C. difficile suspected 09/19/2024 09/19/202409/20 3:05 AM [...] auris 01/14/2025 01/14/2025 01/21/2025 7:26 PM CDT COVID: Suspected 02/28/2025 02/28/2025 02/28/2025 9:06 PM CDT COVID: Suspected 03/01/2025 03/01/2025 03/01/2025 1:09 AM CDT C. difficile suspected 03/01/2025 03/01/202503/01 1:04 PM CDT Norovirus suspected 03/01/2025 03/01/2025 03/01/20 3:43 PM CDT COVID: Suspected 03/31/2025 03/31/2025 03/31/2025 3:56 PM CDT documented as of this encounter Care Teams Deputy Probation Officer Relationship Specialty Start Date End Date Kenton Ricks MD PCP - General 08/14/16 Kenton Ricks MD PCP - General 09/17/08 08/13/16 Pebbles Nelson MD Referring Physician Cardiology 02/07/19 Aylin Russ MD [address] [facility] [address] [place] [address] Referring Physician Pulmonary Disease 02/07/19 Maricruz Ramirez NP [address] [facility] [address] [place] [address] Nurse Practitioner Cardiovascular Disease 09/25/21 Joanne Lopez, [place] Registered Nurse Pulmonary Disease 08/24/22 Leatha Cristina RMA Surgical Prehabilitation and Readiness (SPAR) Coordinator 09/01/22 01/02/23 Ben Chahal MD PhD [facility] [place] [address] Medical Oncologist/Wreath And Garland Maker Medical Oncology 10/05/22 Chace Oliva MD [address] [facility] [address] [place] [address] Consulting Physician Infectious Diseases 12/22/2204/01 Giovanna Alexis MD [address] [place] [address] Radiation Oncologist Radiation Oncology 03/09/23 Taisha Suarez, talent rep Prehabilitation and Readiness (SPAR) Coordinator General Surgery 03/20/23 04/10/23 Sandra Ma MD [address] [facility] ON[facility], [address]A, 7B, [address]C [place] [address] Consulting Physician Medical Oncology 04/25/23 05/09/23 Abby Higgins MD PhD [address] DIV IM MEDICAL ONCOLOGY, [address] 7A, 7B, [address] [place] [address] Medical Oncologist/Wreath And Garland Maker Medical Oncology 05/10/23 Adrian Martinez MD [address] DIV SURG TRANSPLANT, [facility] [address] [place] [address] Surgical Oncologist Surgical Oncology 05/28/23 Vera Pérez PA [address] [id number] [place] [address] Physician Pre Press Proofer Colon and Rectal Surgery 09/13/23 Jim Frausto MD [address] [facility] [phone] [place] [address] Surgeon Colon and Rectal Surgery 11/21/23 Анна Robert, RN [address] [facility] [address] [place] [address] SHOP Outpatient Pot Press Operator 09/29/24 10/01/24 documented as of this encounter
--- OUTSIDE RECORDS SUMMARY | 2025-04-07 19:38 | XMS_ITS | Encounter Summary ---
Author Organization [facility] Address [address] [place] [address] Phone Care Team Providers Care Outside Operator Name Role Phone Kenton Ricks MD Primary Care Provider + [phone] Pebbles Nelson MD Unavailable [phone] Aylin Russ MD Unavailable [phone] Maricruz Ramirez NP Unavailable [phone] Joanne Lopez RN Unavailable Padmini Leatha Carter Unavailable Unavailable Ben Chahal MD PhD Unavailable [phone] Chace Oliva MD Unavailable [phone] Giovanna Alexis MD Unavailable Taisha Suarez RN Unavailable Unavaila Sandra Aguirre MD Unavailable [phone] Abby Higgins MD PhD Unavailable + Adrian Martinez MD Unavailable [phone] Vera Pérez Unavailable [phone] Jim Frausto MD Unavailable [phone] Анна Robert RN Unavailable [phone] Encounter Details Date Type Department Care Team [...] on file Legal Sex Male 12:58 AM ANTHROPOLOGY DEPARTMENT CHAIR Gender Identity Male 11/11/2018 10:31 AM CDT Sexual Orientation Straight 06/09/2019 5: 34 PM ANTHROPOLOGY DEPARTMENT CHAIR documented as of this encounter Plan of [...] COVID: Suspected 06/07/2023 06/07/2023 06/07/2023 12:46 PM ANTHROPOLOGY DEPARTMENT CHAIR COVID19 06/07/2023 06/07/2023 06/22/2023 3:06 AM ANTHROPOLOGY DEPARTMENT CHAIR COVID: Recovered Comment:Added based on recent COVID infection. 06/22/2023 06/22/2023 09/20/2023 3:05 AM C DT COVID: Suspected 07/24/2023 07/24/2023 07/24/2023 3:53 PM ANTHROPOLOGY DEPARTMENT CHAIR Diarrhea 07/30/2023 07/30/2023 08/13/2023 3:05 AM ANTHROPOLOGY DEPARTMENT CHAIR COVID: Suspected 08/30/2023 08/30/2023 08/30/2023 4:52 PM ANTHROPOLOGY DEPARTMENT CHAIR COVID: Suspected 10/12/2023 10/12/2023 10/12/2023 7:57 PM CDT Rhino/Enterovirus 10/12/2023 10/12/2023 10/26/2023 3:05 AM CDT COVID: Suspected 07/10/2024 07/10/2024 07/10/2024 4:53 PM ANTHROPOLOGY DEPARTMENT CHAIR COVID: Suspected Comment:07/16/2024 IP Review: no outstanding test, last RPP negative. Mary Tiwari RN 07/16/2024 07/16/2024 10:51 AM ANTHROPOLOGY DEPARTMENT CHAIR COVID19 Comment:07/16/2024 IP Review: added by RN, RPP negative. Mary Tiwari RN 07/16/2024 07/16/2024 07/16/2024 10:51 AM ANTHROPOLOGY DEPARTMENT CHAIR MRSA Comment:nasalMRSA Isolation Mcc 09/03/24 07/16/2024 08/15/2024 09/03/2024 6:[address] C. difficile suspected 07/19/2024 07/19/202407/19 2:34 PM ANTHROPOLOGY DEPARTMENT CHAIR COVID: Suspected 07/23/2024 07/23/2024 07/23/2024 11:28 PM ANTHROPOLOGY DEPARTMENT CHAIR C. difficile suspected 07/23/2024 07/24/202407/24 10:31 AM ANTHROPOLOGY DEPARTMENT CHAIR Norovirus suspected 07/23/2024 07/24/2024 07/24/19 9:37 AM ANTHROPOLOGY DEPARTMENT CHAIR VRE Comment:Contact Precautions (gown and gloves) - not eligible for IP review until 6 months after positive culture - Jerod QURESHI, CONY 10/01/24 07/24/2024 09/20/2024 03/19/2025 7:26 PM C DT COVID: Suspected 08/09/2024 08/09/2024 08/09/2024 9:40 AM ANTHROPOLOGY DEPARTMENT CHAIR Influenza, adult Comment:08/26/2024 IP Review: pt afebrile but on antipyretics. Needs 24 hours off antipyretics and symptoms significantly improved/resolved in order for isolation to be discontinued. Mary Tiwari RN 08/15/2024 08/15/2024 08/29/2024 3:06 AM ANTHROPOLOGY DEPARTMENT CHAIR Coronavirus, droplet 08/15/2024 08/15/2024 025 3:06 AM ANTHROPOLOGY DEPARTMENT CHAIR C. difficile suspected 09/19/2024 09/19/202409/20 3:05 AM [...] documented as of this encounter Care Teams Outside Operator Relationship Specialty Start Date End Date Kenton Ricks MD PCP - General 08/14/16 Pebbles Nelson MD Referring Physician Cardiology 02/07/19 Aylin Russ MD [address] [place] [address] Referring Physician Pulmonary Disease 02/07/19 Maricruz Ramirez NP [address] [place] [address] Nurse Practitioner Cardiovascular Disease 09/25/21 Joanne Lopez, [place] Registered Nurse Pulmonary Disease 08/24/22 Leatha Cristina RMA Surgical Prehabilitation and Readiness (SPAR) Coordinator 09/01/22 01/02/23 Ben Chahal MD PhD 10 [facility] # 2 [place] [address] Medical Oncologist/Ems Instructor Medical Oncology 10/05/22 Chace Oliva MD [address] [facility] [address] [place] [address] Consulting Physician Infectious Diseases 12/22/2204/01 Giovanna Alexis MD 49[address] [facility] # LL LL [address] [place] [address] Radiation Oncologist Radiation Oncology 03/09/23 Taisha Suarez, safety coordinator Prehabilitation and Readiness (SPAR) Coordinator General Surgery 03/20/23 04/10/23 Sandra Ma MD [address] [facility] [address] DIV MEDICAL ONCOLOGY, [facility] [address]A, 7B, [address] [place] [address] Consulting Physician Medical Oncology 04/25/23 05/09/23 Abby Higgins MD PhD [address] [facility] [address] DIV IM MEDICAL ONCOLOGY, [facility] 7A, 7B, [address] [place] [address] Medical Oncologist/Ems Instructor Medical Oncology 05/10/23 Adrian Martinez MD [address] [facility] [address] DIV SURG TRANSPLANT, [address] [place] [address] Surgical Oncologist Surgical Oncology 05/28/23 Vera Pérez PA [address] [place] [id number] [place] [address] Physician Network Cabler Colon and Rectal Surgery 09/13/23 Jim Frausto MD [address] [facility] [phone] [place] [address] Surgeon Colon and Rectal Surgery 11/21/23 Анна Robert, RN [address] [facility] [address] [place] [address] SHOP Outpatient Stem Setter 09/29/24 10/01/24 documented as of this encounter
--- OUTSIDE RECORDS SUMMARY | 2025-04-07 19:38 | XMS_ITS | Encounter Summary ---
Author Organization [facility] Address [address] [place] [address] Phone Care Team Providers Care Bead Preparer Name Role Phone Kenton Ricks MD Primary Care Provider + [phone] Pebbles Nelson MD Unavailable [phone] Aylin Russ MD Unavailable +[phone] Maricruz Ramirez NP Unavailable [phone] Joanne Lopez RN Unavailable Padmini Leatha Carter Unavailable Unavailable Ben Chahal MD PhD Unavailable [phone] Chace Oliva MD Unavailable [phone] Giovanna Alexis MD Unavailable Taisha Suarez RN Unavailable Unavaila Sandra Aguirre MD Unavailable [phone] Abby Higgins MD PhD Unavailable + Adrian Martinez MD Unavailable Vera Pérez Unavailable Jim Frausto MD Unavailable [phone] Анна Robert RN Unavailable Encounter Details Date Type Department Care Team (Late st Contact Info) Description 09/23/2018 Telephone [facility] Cardiology [address] [facility] 8th [place] [address] [place] [address] Pebbles Nelson MD [address] [facility] [address] [place] [address] Social History Tobacco Use Types Packs/Day Years Used Date Smoking Tobacco: Former Smokeless Tobacco: Never Alcohol Use Standard Drinks/Week Comments Yes 0 (1 standard drink = 0.6 oz pur e alcohol) Occassional Sex and Gender Information Value Date Recorded Sex Assigned at Not on file Legal Sex Male 12:58 AM REVENUE FIELD AGENT Gender Identity Male 11/11/2018 10:31 AM CDT Sexual Orientation Straight 06/09/2019 5: 34 PM REVENUE FIELD AGENT documented as of this encounter Plan of [...] COVID: Suspected 06/07/2023 06/07/2023 06/07/2023 12:46 PM REVENUE FIELD AGENT COVID19 06/07/2023 06/07/2023 06/22/2023 3:06 AM REVENUE FIELD AGENT COVID: Recovered Comment:Added based on recent COVID infection. 06/22/2023 06/22/2023 09/20/2023 3:05 AM C DT COVID: Suspected 07/24/2023 07/24/2023 07/24/2023 3:53 PM REVENUE FIELD AGENT Diarrhea 07/30/2023 07/30/2023 08/13/2023 3:05 AM REVENUE FIELD AGENT COVID: Suspected 08/30/2023 08/30/2023 08/30/2023 4:52 PM REVENUE FIELD AGENT COVID: Suspected 10/12/2023 10/12/2023 10/12/2023 7:57 PM CDT Rhino/Enterovirus 10/12/2023 10/12/2023 10/26/2023 3:05 AM CDT COVID: Suspected 07/10/2024 07/10/2024 07/10/2024 4:53 PM REVENUE FIELD AGENT COVID: Suspected Comment:07/16/2024 IP Review: no outstanding test, last RPP negative. Mary Tiwari RN 07/16/2024 07/16/2024 10:51 AM REVENUE FIELD AGENT COVID19 Comment:07/16/2024 IP Review: added by RN, RPP negative. Mary Tiwari RN 07/16/2024 07/16/2024 07/16/2024 10:51 AM REVENUE FIELD AGENT MRSA Comment:nasalMRSA Isolation [facility] 09/03/24 07/16/2024 08/15/2024 09/03/2024 6:[address] C. difficile suspected 07/19/2024 07/19/202407/19 2:34 PM REVENUE FIELD AGENT COVID: Suspected 07/23/2024 07/23/2024 07/23/2024 11:28 PM REVENUE FIELD AGENT C. difficile suspected 07/23/2024 07/24/202407/24 10:31 AM REVENUE FIELD AGENT Norovirus suspected 07/23/2024 07/24/2024 07/24/19 9:37 AM REVENUE FIELD AGENT VRE Comment:Contact Precautions (gown and gloves) - not eligible for IP review until 6 months after positive culture - Jerod QURESHI, CONY 10/01/24 07/24/2024 09/20/2024 03/19/2025 7:26 PM C DT COVID: Suspected 08/09/2024 08/09/2024 08/09/2024 9:40 AM REVENUE FIELD AGENT Influenza, adult Comment:08/26/2024 IP Review: pt afebrile but on antipyretics. Needs 24 hours off antipyretics and symptoms significantly improved/resolved in order for isolation to be discontinued. Mary Tiwari RN 08/15/2024 08/15/2024 08/29/2024 3:06 AM REVENUE FIELD AGENT Coronavirus, droplet 08/15/2024 08/15/2024 025 3:06 AM REVENUE FIELD AGENT C. difficile suspected 09/19/2024 09/19/202409/20 3:05 AM [...] documented as of this encounter Care Teams Bead Preparer Relationship Specialty Start Date End Date Kenton Ricks MD PCP - General 08/14/16 Pebbles Nelson MD Referring Physician Cardiology 02/07/19 Aylin Russ MD [address] [place] [address] Referring Physician Pulmonary Disease 02/07/19 Maricruz Ramirez, CURB SETTER [address] [place] [address] Nurse Practitioner Cardiovascular Disease 09/25/21 Joanne Lopez, CONY Registered Nurse Pulmonary Disease 08/24/22 Leatha Cristina RMA Surgical Prehabilitation and Readiness (SPAR) Coordinator 09/01/22 01/02/23 Ben Chahal MD PhD [address] [facility] [address] 2 [place] [address] Medical Oncologist/General Warehouse Worker Medical Oncology 10/05/22 Chace Oliva MD [address] [facility] [address] [place] [address] Consulting Physician Infectious Diseases 12/22/2204/01 Giovanna Alexis MD [address] [place] [address] Radiation Oncologist Radiation Oncology 03/09/23 Taisha Suarez, clinical services director Prehabilitation and Readiness (SPAR) Coordinator General Surgery 03/20/23 04/10/23 Sandra Ma MD [address] DIV IM MEDICAL ONCOLOGY, [address]A, 7B, 7C [place] [address] Consulting Physician Medical Oncology 04/25/23 05/09/23 Abby Higgins MD PhD [address] DIV IM MEDICAL ONCOLOGY, [address]A, 7B, 7C [place] [address] Medical Oncologist/General Warehouse Worker Medical Oncology 05/10/23 Adrian Martinez MD [address] [facility] DIV SURG TRANSPLANT, [facility] [address] [place] [address] Surgical Oncologist Surgical Oncology 05/28/23 Vera Pérez PA [address] [place] [id number] [place] [address] Physician Marketing Editor Colon and Rectal Surgery 09/13/23 Jim Frausto MD [address] [facility] [phone] [place] [address] Surgeon Colon and Rectal Surgery 11/21/23 Анна Robert, RN [address] [facility] [address] [place] [address] SHOP Outpatient Assistant Professor Of Criminal Justice 09/29/24 10/01/24 documented as of this encounter
--- OUTSIDE RECORDS SUMMARY | 2025-04-07 19:38 | XMS_ITS | Encounter Summary ---
Author Organization [facility] Address [address] [place] [address] Phone Care Team Providers Care Automotive General Manager Name Role Phone Kenton Ricks MD Primary Care Provider + [phone] Kenton Ricks MD Primary Care Provider + [phone] Pebbles Nelson MD Unavailable [phone] Aylin Russ MD Unavailable [phone] Maricruz Ramirez NP Unavailable [phone] Joanne Lopez RN Unavailable Padmini Leatha Carter Unavailable Unavailable Ben Chahal MD PhD Unavailable [phone] Chace Oliva MD Unavailable [phone] Giovanna Alexis MD Unavailable Taisha Suarez RN Unavailable Unavaila Sandra Aguirre MD Unavailable +[phone] Abby Higgins MD PhD Unavailable + Adrian Martinez MD Unavailable Vera Pérez Unavailable [phone] Jim Frausto MD Unavailable +[phone] Анна Robert RN Unavailable [phone] Encounter Details Date Type Department Care Team (Late st Contact Info) Description 05/19/2016 Orders Only [facility]INCON[facility] Provider, MD Max [address] [place] [address] Social History Tobacco Use Types Packs/Day Years Used Date Smoking Tobacco: Never Assessed Sex and Gender Information Value Date Recorded Sex Assigned at Not on file Legal Sex Male 12:58 AM CONTROL PANEL TESTER Gender Identity Male 11/11/2018 10:31 AM CDT Sexual Orientation Straight 06/09/2019 5: 34 PM CONTROL PANEL TESTER documented as of this encounter Plan [...] COVID: Suspected 06/07/2023 06/07/2023 06/07/2023 12:46 PM CONTROL PANEL TESTER COVID19 06/07/2023 06/07/2023 06/22/2023 3:06 AM CONTROL PANEL TESTER COVID: Recovered Comment:Added based on recent COVID infection. 06/22/2023 06/22/2023 09/20/2023 3:05 AM C DT COVID: Suspected 07/24/2023 07/24/2023 07/24/2023 3:53 PM CONTROL PANEL TESTER Diarrhea 07/30/2023 07/30/2023 08/13/2023 3:05 AM CONTROL PANEL TESTER COVID: Suspected 08/30/2023 08/30/2023 08/30/2023 4:52 PM CONTROL PANEL TESTER COVID: Suspected 10/12/2023 10/12/2023 10/12/2023 7:57 PM CDT Rhino/Enterovirus 10/12/2023 10/12/2023 10/26/2023 3:05 AM CDT COVID: Suspected 07/10/2024 07/10/2024 07/10/2024 4:53 PM CONTROL PANEL TESTER COVID: Suspected Comment:07/16/2024 IP Review: no outstanding test, last RPP negative. Mary Tiwari RN 07/16/2024 07/16/2024 10:51 AM CONTROL PANEL TESTER COVID19 Comment:07/16/2024 IP Review: added by RN, RPP negative. Mary Tiwari RN 07/16/2024 07/16/2024 07/16/2024 10:51 AM CONTROL PANEL TESTER MRSA Comment:nasalMRSA Isolation [facility] 09/03/24 07/16/2024 08/15/2024 09/03/2024 6:[address] C. difficile suspected 07/19/2024 07/19/202407/19 2:34 PM CONTROL PANEL TESTER COVID: Suspected 07/23/2024 07/23/2024 07/23/2024 11:28 PM CONTROL PANEL TESTER C. difficile suspected 07/23/2024 07/24/202407/24 10:31 AM CONTROL PANEL TESTER Norovirus suspected 07/23/2024 07/24/2024 07/24/19 9:37 AM CONTROL PANEL TESTER VRE Comment:Contact Precautions (gown and gloves) - not eligible for IP review until 6 months after positive culture - Jerod LEEN, RN 10/01/24 07/24/2024 09/20/2024 03/19/2025 7:26 PM C DT COVID: Suspected 08/09/2024 08/09/2024 08/09/2024 9:40 AM CONTROL PANEL TESTER Influenza, adult Comment:08/26/2024 IP Review: pt afebrile but on antipyretics. Needs 24 hours off antipyretics and symptoms significantly improved/resolved in order for isolation to be discontinued. Mary Tiwari, CONY 08/15/2024 08/15/2024 08/29/2024 3:06 AM CONTROL PANEL TESTER Coronavirus, droplet 08/15/2024 08/15/2024 025 3:06 AM CONTROL PANEL TESTER C. difficile suspected 09/19/2024 09/19/202409/20 3:05 [...] documented as of this encounter Care Teams Automotive General Manager Relationship Specialty Start Date End Date Kenton Ricks MD PCP - General 08/14/16 Kenton Ricks MD PCP - General 09/17/08 08/13/16 Pebbles Nelson MD Referring Physician Cardiology 02/07/19 Aylin Russ MD [address] [place] [address] Referring Physician Pulmonary Disease 02/07/19 Maricruz Ramirez NP [address] [place] [address] Nurse Practitioner Cardiovascular Disease 09/25/21 Joanne Lopez, CONY Registered Nurse Pulmonary Disease 08/24/22 Leatha Cristina RMA Surgical Prehabilitation and Readiness (SPAR) Coordinator 09/01/22 01/02/23 Ben Chahal MD PhD [address] [facility] [address] 2 [place] [address] Medical Oncologist/Duster Tender Medical Oncology 10/05/22 Chace Oliva MD [address] [place] [address] Consulting Physician Infectious Diseases 12/22/2204/01 Giovanna Alexis MD [address] [facility] # LL LL [address] [place] [address] Radiation Oncologist Radiation Oncology 03/09/23 Taisha Suarez, easter bunny Prehabilitation and Readiness (SPAR) Coordinator General Surgery 03/20/23 04/10/23 Sandra Ma MD [address] DIV IM MEDICAL ONCOLOGY, [address]A, 7B, 7C [place] [address] Consulting Physician Medical Oncology 04/25/23 05/09/23 Abby Higgins MD PhD [address] DIV IM MEDICAL ONCOLOGY, [address]A, 7B, 7C [place] [address] Medical Oncologist/Duster Tender Medical Oncology 05/10/23 Adrian Martinez MD [address] DIV SURG TRANSPLANT, [address] [place] [address] Surgical Oncologist Surgical Oncology 05/28/23 Vera Pérez PA [address] [place] [id number] [place] [address] Physician Compliance Intern Colon and Rectal Surgery 09/13/23 Jim Frausto MD [address] [facility] [phone] [place] [address] Surgeon Colon and Rectal Surgery 11/21/23 Анна Robert RN [address] [facility] [address] [place] [address] SHOP Outpatient Glove Cutter 09/29/24 10/01/24 documented as of this encounter
--- OUTSIDE RECORDS SUMMARY | 2025-04-07 19:38 | XMS_ITS | Encounter Summary ---
Author Organization [facility] Address [address] [place] [address] Phone Care Team Providers Care Household Chores Name Role Phone Kenton Ricks MD Primary Care Provider + [phone] Pebbles Nelson MD Unavailable [phone] Aylin Russ MD Unavailable [phone] Maricruz Ramirez NP Unavailable [phone] Joanne Lopez RN Unavailable Padmini Leatha Carter Unavailable Unavailable Ben Chahal MD PhD Unavailable [phone] Chace Oliva MD Unavailable [phone] Giovanna Alexis MD Unavailable Taisha Suarez RN Unavailable Unavaila Sandra Aguirre MD Unavailable [phone] Abby Higgins MD PhD Unavailable + Adrian Martinez MD Unavailable [phone] Vera Pérez Unavailable [phone] Jim Frausto MD Unavailable [phone] Анна Robert RN Unavailable Encounter Details Date [...] on file Legal Sex Male 12:58 AM RETAIL OPERATIONS SPECIALIST Gender Identity Male 11/11/2018 10:31 AM CDT Sexual Orientation Straight 06/09/2019 5: 34 PM RETAIL OPERATIONS SPECIALIST documented as of this encounter Plan [...] COVID: Suspected 06/07/2023 06/07/2023 06/07/2023 12:46 PM RETAIL OPERATIONS SPECIALIST COVID19 06/07/2023 06/07/2023 06/22/2023 3:06 AM RETAIL OPERATIONS SPECIALIST COVID: Recovered Comment:Added based on recent COVID infection. 06/22/2023 06/22/2023 09/20/2023 3:05 AM C DT COVID: Suspected 07/24/2023 07/24/2023 07/24/2023 3:53 PM RETAIL OPERATIONS SPECIALIST Diarrhea 07/30/2023 07/30/2023 08/13/2023 3:05 AM RETAIL OPERATIONS SPECIALIST COVID: Suspected 08/30/2023 08/30/2023 08/30/2023 4:52 PM RETAIL OPERATIONS SPECIALIST COVID: Suspected 10/12/2023 10/12/2023 10/12/2023 7:57 PM CDT Rhino/Enterovirus 10/12/2023 10/12/2023 10/26/2023 3:05 AM CDT COVID: Suspected 07/10/2024 07/10/2024 07/10/2024 4:53 PM RETAIL OPERATIONS SPECIALIST COVID: Suspected Comment:07/16/2024 IP Review: no outstanding test, last RPP negative. Mary Tiwari RN 07/16/2024 07/16/2024 10:51 AM RETAIL OPERATIONS SPECIALIST COVID19 Comment:07/16/2024 IP Review: added by RN, RPP negative. Mary Tiwari RN 07/16/2024 07/16/2024 07/16/2024 10:51 AM RETAIL OPERATIONS SPECIALIST MRSA Comment:nasalMRSA Isolation Sn[facility] 09/03/24 07/16/2024 08/15/2024 09/03/2024 6:[address] C. difficile suspected 07/19/2024 07/19/202407/19 2:34 PM RETAIL OPERATIONS SPECIALIST COVID: Suspected 07/23/2024 07/23/2024 07/23/2024 11:28 PM RETAIL OPERATIONS SPECIALIST C. difficile suspected 07/23/2024 07/24/202407/24 10:31 AM RETAIL OPERATIONS SPECIALIST Norovirus suspected 07/23/2024 07/24/2024 07/24/19 9:37 AM RETAIL OPERATIONS SPECIALIST VRE Comment:Contact Precautions (gown and gloves) - not eligible for IP review until 6 months after positive culture - Jerod QURESHI, CONY 10/01/24 07/24/2024 09/20/2024 03/19/2025 7:26 PM C DT COVID: Suspected 08/09/2024 08/09/2024 08/09/2024 9:40 AM RETAIL OPERATIONS SPECIALIST Influenza, adult Comment:08/26/2024 IP Review: pt afebrile but on antipyretics. Needs 24 hours off antipyretics and symptoms significantly improved/resolved in order for isolation to be discontinued. Mary iTwari RN 08/15/2024 08/15/2024 08/29/2024 3:06 AM RETAIL OPERATIONS SPECIALIST Coronavirus, droplet 08/15/2024 08/15/2024 025 3:06 AM RETAIL OPERATIONS SPECIALIST C. difficile suspected 09/19/2024 09/19/202409/20 /2025 3:05 AM CDT C. difficile suspected [...] documented as of this encounter Care Teams Household Chores Relationship Specialty Start Date End Date Kenton Ricks MD PCP - General 08/14/16 Pebbles Nelson MD Referring Physician Cardiology 02/07/19 Aylin Russ MD [address] [place] [address] Referring Physician Pulmonary Disease 02/07/19 Maricruz Ramirez RADIAL DRILL PRESS OPERATOR [address] [place] [address] Nurse Practitioner Cardiovascular Disease 09/25/21 Joanne Lopez, CONY Registered Nurse Pulmonary Disease 08/24/22 Leatha Cristina RMA Surgical Prehabilitation and Readiness (SPAR) Coordinator 09/01/22 01/02/23 Ben Chahal MD PhD 10 [facility] # 2 [place] [address] Medical Oncologist/Draw End Hand Medical Oncology 10/05/22 Chace Oliva MD [address] [facility] [address] [place] [address] Consulting Physician Infectious Diseases 12/22/2204/01 Giovanna Alexis MD [address] [facility] # LL LL [address] [place] [address] Radiation Oncologist Radiation Oncology 03/09/23 Taisha Suarez, associate professor of philosophy Prehabilitation and Readiness (SPAR) Coordinator General Surgery 03/20/23 04/10/23 Sandra Ma MD [address] [facility] [address] DIV MEDICAL ONCOLOGY, [address] 7A, 7B, 7[address] [place] [address] Consulting Physician Medical Oncology 04/25/23 05/09/23 Abby Higgins MD PhD [address] DIV IM MEDICAL ONCOLOGY, [address]A, 7B, [address] [place] [address] Medical Oncologist/Draw End Hand Medical Oncology 05/10/23 Adrian Martinez MD [address] DIV SURG TRANSPLANT, [address] [place] [address] Surgical Oncologist Surgical Oncology 05/28/23 Vera Pérez PA [address] [place] [address] [place] [id number] [place] [address] Physician Patroller Colon and Rectal Surgery 09/13/23 Jim Frausto MD [address] [facility] [phone] [place] [address] Surgeon Colon and Rectal Surgery 11/21/23 Анна Robert, RN [address] [facility] [address] [place] [address] SH[facility] Outpatient Stock Parts Fabricator 09/29/24 10/01/24 documented as of this encounter
--- OUTSIDE RECORDS SUMMARY | 2025-04-07 19:38 | XMS_ITS | Encounter Summary ---
Author Organization [facility] Address [address] [place] [address] Phone Care Team Providers Care Japanese Interpreter Name Role Phone Kenton Ricks MD Primary Care Provider + [phone] Pebbles Nelson MD Unavailable [phone] Aylin Russ MD Unavailable [phone] Maricruz Ramirez NP Unavailable [phone] Joanne Lopez RN Unavailable Padmini Leatha Carter Unavailable Unavailable Ben Chahal MD PhD Unavailable [phone] Chace Oliva MD Unavailable [phone] Giovanna Alexis MD Unavailable Taisha Suarez RN Unavailable Unavaila Sandra Aguirre MD Unavailable [phone] Abby Higgins MD PhD Unavailable + Adrian Martinez MD Unavailable [phone] Vera Pérez Unavailable Jim Frausto MD Unavailable [phone] Анна Robert RN Unavailable Encounter Details Date Type Department Care Team (Late st Contact Info) Description 08/10/2020 Telephone [facility] Cardiology [address] [facility] Medicine 8th [place] [address] [place] [address] Pebbles Nelson MD [address] [facility] [address] [place] [address] Social History Tobacco Use Types Packs/Day Years Used Date Smoking Tobacco: Former Smokeless Tobacco: Never Alcohol Use Standard Drinks/Week Comments Yes 0 (1 standard drink = 0.6 oz pur e alcohol) Occassional Sex and Gender Information Value Date Recorded Sex Assigned at Not on file Legal Sex Male 12:58 AM DERMATOLOGY NURSE PRACTITIONER Gender Identity Male 11/11/2018 10:31 AM CDT Sexual Orientation Straight 06/09/2019 5: 34 PM DERMATOLOGY NURSE PRACTITIONER documented as of this encounter Plan of [...] COVID: Suspected 06/07/2023 06/07/2023 06/07/2023 12:46 PM DERMATOLOGY NURSE PRACTITIONER COVID19 06/07/2023 06/07/2023 06/22/2023 3:06 AM DERMATOLOGY NURSE PRACTITIONER COVID: Recovered Comment:Added based on recent COVID infection. 06/22/2023 06/22/2023 09/20/2023 3:05 AM C DT COVID: Suspected 07/24/2023 07/24/2023 07/24/2023 3:53 PM DERMATOLOGY NURSE PRACTITIONER Diarrhea 07/30/2023 07/30/2023 08/13/2023 3:05 AM DERMATOLOGY NURSE PRACTITIONER COVID: Suspected 08/30/2023 08/30/2023 08/30/2023 4:52 PM DERMATOLOGY NURSE PRACTITIONER COVID: Suspected 10/12/2023 10/12/2023 10/12/2023 7:57 PM CDT Rhino/Enterovirus 10/12/2023 10/12/2023 10/26/2023 3:05 AM CDT COVID: Suspected 07/10/2024 07/10/2024 07/10/2024 4:53 PM DERMATOLOGY NURSE PRACTITIONER COVID: Suspected Comment:07/16/2024 IP Review: no outstanding test, last RPP negative. Mary Tiwari RN 07/16/2024 07/16/2024 10:51 AM DERMATOLOGY NURSE PRACTITIONER COVID19 Comment:07/16/2024 IP Review: added by RN, RPP negative. Mary Tiwari RN 07/16/2024 07/16/2024 07/16/2024 10:51 AM DERMATOLOGY NURSE PRACTITIONER MRSA Comment:nasalMRSA Isolation Long-Term 09/03/24 07/16/2024 08/15/2024 09/03/2024 6:[address] C. difficile suspected 07/19/2024 07/19/202407/19 2:34 PM DERMATOLOGY NURSE PRACTITIONER COVID: Suspected 07/23/2024 07/23/2024 07/23/2024 11:28 PM DERMATOLOGY NURSE PRACTITIONER C. difficile suspected 07/23/2024 07/24/202407/24 10:31 AM DERMATOLOGY NURSE PRACTITIONER Norovirus suspected 07/23/2024 07/24/2024 07/24/19 9:37 AM DERMATOLOGY NURSE PRACTITIONER VRE Comment:Contact Precautions (gown and gloves) - not eligible for IP review until 6 months after positive culture - Jerod QURESHI, CONY 10/01/24 07/24/2024 09/20/2024 03/19/2025 7:26 PM C DT COVID: Suspected 08/09/2024 08/09/2024 08/09/2024 9:40 AM DERMATOLOGY NURSE PRACTITIONER Influenza, adult Comment:08/26/2024 IP Review: pt afebrile but on antipyretics. Needs 24 hours off antipyretics and symptoms significantly improved/resolved in order for isolation to be discontinued. Mary Tiwari RN 08/15/2024 08/15/2024 08/29/2024 3:06 AM DERMATOLOGY NURSE PRACTITIONER Coronavirus, droplet 08/15/2024 08/15/2024 025 3:06 AM DERMATOLOGY NURSE PRACTITIONER C. difficile suspected 09/19/2024 09/19/202409/20 3:05 AM CDT C. difficile suspected 09/20/2024 09/20/202409/20 10:39 PM CDT Ring Surveillance Comment:09/21/2024- 5400 [address]. [employer] ring surveillance. Becki Peres VIM 5400 09/21/2024 09/21/2024 09/28/2024 3:05 AM C DT Norovirus suspected 09/21/2024 09/21/2024 09/25/19 25 10:57 AM CDT C. difficile suspected 11/19/2024 [...] documented as of this encounter Care Teams Japanese Interpreter Relationship Specialty Start Date End Date Kenton Ricks MD PCP - General 08/14/16 Pebbles Nelson MD Referring Physician Cardiology 02/07/19 Aylin Russ MD [address] [place] [address] Referring Physician Pulmonary Disease 02/07/19 Maricruz Ramirez, BAND MAKER [address] [place] [address] Nurse Practitioner Cardiovascular Disease 09/25/21 Joanne Lopez, CONY Registered Nurse Pulmonary Disease 08/24/22 Leatha Cristina RMA Surgical Prehabilitation and Readiness (SPAR) Coordinator 09/01/22 01/02/23 Ben Chahal MD PhD 10 [facility] # 2 DIV [place] [address] Medical Oncologist/Nutrition Associate Medical Oncology 10/05/22 Chace Oliva MD [address] [facility] [address] [place] [address] Consulting Physician Infectious Diseases 12/22/2204/01 Giovanna Alexis MD [address] LL [address] [place] [address] Radiation Oncologist Radiation Oncology 03/09/23 Taisha Suarez, stenotype operator Prehabilitation and Readiness (SPAR) Coordinator General Surgery 03/20/23 04/10/23 Sandra Ma MD [address] DIV IM MEDICAL ONCOLOGY, [address]A, 7B, [address]C [place] [address] Consulting Physician Medical Oncology 04/25/23 05/09/23 Abby Higgins MD PhD [address] DIV IM MEDICAL ONCOLOGY, [address]A, 7B, [address] [place] [address] Medical Oncologist/Nutrition Associate Medical Oncology 05/10/23 Adrian Martinez MD 4921 [facility] DIV SURG TRANSPLANT, [facility] [address] [place] [address] Surgical Oncologist Surgical Oncology 05/28/23 Vera Pérez PA [address] [place] [id number] [place] [address] Physician Stump Blower Colon and Rectal Surgery 09/13/23 Jim Frausto MD [address] [facility] [phone] [place] [address] Surgeon Colon and Rectal Surgery 11/21/23 Анна Robert, RN 4590 [facility] [address] [place] [address] SHOP Outpatient Area Mechanic 09/29/24 10/01/24 documented as of this encounter
--- OUTSIDE RECORDS SUMMARY | 2025-04-07 19:38 | XMS_ITS | Encounter Summary ---
Author Organization [facility] Address [address] [place] [address] Phone Care Team Providers Care Line Fisher Name Role Phone Kenton Ricks MD Primary Care Provider + [phone] Pebbles Nelson MD Unavailable [phone] Aylin Russ MD Unavailable [phone] Maricruz Ramirez NP Unavailable [phone] Joanne Lopez RN Unavailable Padmini Leatha Carter Unavailable Unavailable Ben Chahal MD PhD Unavailable [phone] Chace Oliva MD Unavailable [phone] Giovanna Alexis MD Unavailable Taisha Suarez RN Unavailable Unavaila Sandra Aguirre MD Unavailable [phone] Abby Higgins MD PhD Unavailable + Adrian Martinez MD Unavailable [phone] Vera Pérez Unavailable [phone] Jim Frausto MD Unavailable [phone] Анна Robert RN Unavailable [phone] Encounter Details Date Type Department Care Team (Late st Contact Info) Description 07/13/2017 Orders Only [facility] CLINCONV Provider, MD Max [address] [place], [place] [id number] Social History Tobacco Use Types Packs/Day Years Used Date Smoking Tobacco: Former Sex and Gender Information Value Date Recorded Sex Assigned at Not on file Legal Sex Male 12:58 AM CLIENT TECHNICAL SUPPORT ASSOCIATE Gender Identity Male 11/11/2018 10:31 AM CDT Sexual Orientation Straight 06/09/2019 5: 34 PM CLIENT TECHNICAL SUPPORT ASSOCIATE documented as of this encounter Plan of [...] COVID: Suspected 06/07/2023 06/07/2023 06/07/2023 12:46 PM CLIENT TECHNICAL SUPPORT ASSOCIATE COVID19 06/07/2023 06/07/2023 06/22/2023 3:06 AM CLIENT TECHNICAL SUPPORT ASSOCIATE COVID: Recovered Comment:Added based on recent COVID infection. 06/22/2023 06/22/2023 09/20/2023 3:05 AM C DT COVID: Suspected 07/24/2023 07/24/2023 07/24/2023 3:53 PM CLIENT TECHNICAL SUPPORT ASSOCIATE Diarrhea 07/30/2023 07/30/2023 08/13/2023 3:05 AM CLIENT TECHNICAL SUPPORT ASSOCIATE COVID: Suspected 08/30/2023 08/30/2023 08/30/2023 4:52 PM CLIENT TECHNICAL SUPPORT ASSOCIATE COVID: Suspected 10/12/2023 10/12/2023 10/12/2023 7:57 PM CDT Rhino/Enterovirus 10/12/2023 10/12/2023 10/26/2023 3:05 AM CDT COVID: Suspected 07/10/2024 07/10/2024 07/10/2024 4:53 PM CLIENT TECHNICAL SUPPORT ASSOCIATE COVID: Suspected Comment:07/16/2024 IP Review: no outstanding test, last RPP negative. Mary Tiwari RN 07/16/2024 07/16/2024 10:51 AM CLIENT TECHNICAL SUPPORT ASSOCIATE COVID19 Comment:07/16/2024 IP Review: added by RN, RPP negative. Mary Tiwari RN 07/16/2024 07/16/2024 07/16/2024 10:51 AM CLIENT TECHNICAL SUPPORT ASSOCIATE MRSA Comment:nasalMRSA Isolation [facility] 09/03/24 07/16/2024 08/15/2024 09/03/2024 6:44 AM CLIENT TECHNICAL SUPPORT ASSOCIATE C. difficile suspected 07/19/2024 07/19/202407/19 2:34 PM CLIENT TECHNICAL SUPPORT ASSOCIATE COVID: Suspected 07/23/2024 07/23/2024 07/23/2024 11:28 PM CLIENT TECHNICAL SUPPORT ASSOCIATE C. difficile suspected 07/23/2024 07/24/202407/24 10:31 AM CLIENT TECHNICAL SUPPORT ASSOCIATE Norovirus suspected 07/23/2024 07/24/2024 07/24/19 9:37 AM CLIENT TECHNICAL SUPPORT ASSOCIATE VRE Comment:Contact Precautions (gown and gloves) - not eligible for IP review until 6 months after positive culture - Jerod QURESHI, CONY 10/01/24 07/24/2024 09/20/2024 03/19/2025 7:26 PM C DT COVID: Suspected 08/09/2024 08/09/2024 08/09/2024 9:40 AM CLIENT TECHNICAL SUPPORT ASSOCIATE Influenza, adult Comment:08/26/2024 IP Review: pt afebrile but on antipyretics. Needs 24 hours off antipyretics and symptoms significantly improved/resolved in order for isolation to be discontinued. Mary Tiwari RN 08/15/2024 08/15/2024 08/29/2024 3:06 AM CLIENT TECHNICAL SUPPORT ASSOCIATE Coronavirus, droplet 08/15/2024 08/15/2024 025 3:06 AM CLIENT TECHNICAL SUPPORT ASSOCIATE C. difficile suspected 09/19/2024 09/19/202409/20 3:05 AM [...] documented as of this encounter Care Teams Line Fisher Relationship Specialty Start Date End Date Kenton Ricks MD PCP - General 08/14/16 Pebbles Nelson MD Referring Physician Cardiology 8/9/19 Aylin Russ MD [address] [place] [address] Referring Physician Pulmonary Disease 02/07/19 Maricruz Ramirez PROFESSIONAL NURSING ASSISTANT [address] [place] [address] Nurse Practitioner Cardiovascular Disease 09/25/21 Joanne Lopez, RN Registered Nurse Pulmonary Disease 08/24/22 Leatha Cristina RMA Surgical Prehabilitation and Readiness (SPAR) Coordinator 09/01/22 01/02/23 Ben Chahal MD PhD 10 [facility] # 2 [place] [address] Medical Oncologist/Upward Bound Director Medical Oncology 10/05/22 Chace Oliva MD [address] [place] [address] Consulting Physician Infectious Diseases 12/22/2204/01 Giovanna Alexis MD [address] [place] [address] Radiation Oncologist Radiation Oncology 03/09/23 Taisha Suarez, employment clerk Prehabilitation and Readiness (SPAR) Coordinator General Surgery 03/20/23 04/10/23 Sandra Ma MD [address] DIV IM MEDICAL ONCOLOGY, [address]A, 7B, [address]C [place] [address] Consulting Physician Medical Oncology 04/25/23 05/09/23 Abby Higgins MD PhD [address] DIV IM MEDICAL ONCOLOGY, [address] 7A, 7B, [address] [place] [address] Medical Oncologist/Upward Bound Director Medical Oncology 05/10/23 Adrian Martinez MD 49[address] [facility] DIV SURG TRANSPLANT, [facility] [address] [place] [address] Surgical Oncologist Surgical Oncology 05/28/23 Vera Pérez PA [address] [place] [id number] [place] [address] Physician Cold Reduction Roller Colon and Rectal Surgery 09/13/23 Jim Frausto MD [address] [place] [phone] [place] [address] Surgeon Colon and Rectal Surgery 11/21/23 Анна Robert, RN [address] [facility] [address] [place] [address] [facility] Outpatient Sales Analytics Manager 09/29/24 10/01/24 documented as of this encounter
--- OUTSIDE RECORDS SUMMARY | 2025-04-07 19:38 | XMS_ITS | Patient Health Record ---
Author Organization [facility] Address [address] [place] [address] Care Team Providers Care Journeyman Sheet Metal Worker Name Role Phone Derrell Matthews Primary Care Provider Duane Llamas Unavailable Unavailable Reason For Referral No Information Plan Of Treatment No Information Insurance Providers Payer Name Payer Address Payer Phone Subscriber Number Group Number Insured Name Patient Relationship to Insured Coverage Start Date Coverage End Date [facility] [address] [place] [address] [id number] Rah Greco Self - patient is the insured
--- OUTSIDE RECORDS SUMMARY | 2025-04-07 19:38 | XMS_ITS | Encounter Summary ---
Author Organization [facility] Address [address] [place] [address] Care Team Providers Care Knitter Helper Name Role Phone Kenton Ricks MD Primary Care Provider + [phone] Pebbles Nelson MD Unavailable [phone] Aylin Russ MD Unavailable [phone] Maricruz Ramirez NP Unavailable [phone] Joanne Lopez RN Unavailable Padmini Leatha Carter Unavailable Unavailable Ben Chahal MD PhD Unavailable [phone] Chace Oliva MD Unavailable [phone] Giovanna Alexis MD Unavailable Taisha Suarez RN Unavailable Unavaila Sandra Aguirre MD Unavailable [phone] Abby Higgins MD PhD Unavailable + Adrian Martinez MD Unavailable [phone] Vera Pérez Unavailable Jim Frausto MD Unavailable [phone] Анна Robert RN Unavailable Encounter Details Date Type Department Care Team (Late st Contact Info) Description 08/12/[address] [facility] [address] [place] [address] [address] Hallie Whitaker, RT Social History Tobacco Use Types Packs/Day Years Used Date Smoking Tobacco: Former Smokeless Tobacco: Never Alcohol Use Standard Drinks/Week Comments Yes 0 (1 standard drink = 0.6 oz pur e alcohol) Occassional Sex and Gender Information Value Date Recorded Sex Assigned at Not on file Legal Sex Male 12:58 AM ASSOCIATE PROFESSOR OF MANAGEMENT Gender Identity Male 11/11/2018 10:31 AM CDT Sexual Orientation Straight 06/09/2019 5: 34 PM ASSOCIATE PROFESSOR OF MANAGEMENT documented as of this encounter Plan of [...] COVID: Suspected 06/07/2023 06/07/2023 06/07/2023 12:46 PM ASSOCIATE PROFESSOR OF MANAGEMENT COVID19 06/07/2023 06/07/2023 06/22/2023 3:06 AM ASSOCIATE PROFESSOR OF MANAGEMENT COVID: Recovered Comment:Added based on recent COVID infection. 06/22/2023 06/22/2023 09/20/2023 3:05 AM C DT COVID: Suspected 07/24/2023 07/24/2023 07/24/2023 3:53 PM ASSOCIATE PROFESSOR OF MANAGEMENT Diarrhea 07/30/2023 07/30/2023 08/13/2023 3:05 AM ASSOCIATE PROFESSOR OF MANAGEMENT COVID: Suspected 08/30/2023 08/30/2023 08/30/2023 4:52 PM ASSOCIATE PROFESSOR OF MANAGEMENT COVID: Suspected 10/12/2023 10/12/2023 10/12/2023 7:57 PM CDT Rhino/Enterovirus 10/12/2023 10/12/2023 10/26/2023 3:05 AM CDT COVID: Suspected 07/10/2024 07/10/2024 07/10/2024 4:53 PM ASSOCIATE PROFESSOR OF MANAGEMENT COVID: Suspected Comment:07/16/2024 IP Review: no outstanding test, last RPP negative. Mary Tiwari RN 07/16/2024 07/16/2024 10:51 AM ASSOCIATE PROFESSOR OF MANAGEMENT COVID19 Comment:07/16/2024 IP Review: added by RN, RPP negative. Mary Tiwari RN 07/16/2024 07/16/2024 07/16/2024 10:51 AM ASSOCIATE PROFESSOR OF MANAGEMENT MRSA Comment:nasalMRSA Isolation Long-Term 09/03/24 07/16/2024 08/15/2024 09/03/2024 6:[address] C. difficile suspected 07/19/2024 07/19/202407/19 2:34 PM ASSOCIATE PROFESSOR OF MANAGEMENT COVID: Suspected 07/23/2024 07/23/2024 07/23/2024 11:28 PM ASSOCIATE PROFESSOR OF MANAGEMENT C. difficile suspected 07/23/2024 07/24/202407/24 10:31 AM ASSOCIATE PROFESSOR OF MANAGEMENT Norovirus suspected 07/23/2024 07/24/2024 07/24/19 9:37 AM ASSOCIATE PROFESSOR OF MANAGEMENT VRE Comment:Contact Precautions (gown and gloves) - not eligible for IP review until 6 months after positive culture - Jerod QURESHI, CONY 10/01/24 07/24/2024 09/20/2024 03/19/2025 7:26 PM C DT COVID: Suspected 08/09/2024 08/09/2024 08/09/2024 9:40 AM ASSOCIATE PROFESSOR OF MANAGEMENT Influenza, adult Comment:08/26/2024 IP Review: pt afebrile but on antipyretics. Needs 24 hours off antipyretics and symptoms significantly improved/resolved in order for isolation to be discontinued. Mary Tiwari RN 08/15/2024 08/15/2024 08/29/2024 3:06 AM ASSOCIATE PROFESSOR OF MANAGEMENT Coronavirus, droplet 08/15/2024 08/15/2024 025 3:06 AM ASSOCIATE PROFESSOR OF MANAGEMENT C. difficile suspected 09/19/2024 09/19/202409/20 3:05 AM [...] documented as of this encounter Care Teams Knitter Helper Relationship Specialty Start Date End Date Kenton Ricks MD PCP - General 08/14/16 Pebbles Nelson MD Referring Physician Cardiology 02/07/19 Aylin Russ MD [address] [facility] [address] [place] [address] Referring Physician Pulmonary Disease 02/07/19 Maricruz Ramirez PULP REFINER OPERATOR [address] [place] [address] Nurse Practitioner Cardiovascular Disease 09/25/21 Joanne Lopez, RN Registered Nurse Pulmonary Disease 08/24/22 Leatha Cristina RMA Surgical Prehabilitation and Readiness (SPAR) Coordinator 09/01/22 01/02/23 Ben Chahal MD PhD [address] [facility] # 2 [place] [address] Medical Oncologist/Radiation Officer Medical Oncology 10/05/22 Chace Oliva MD [address] [place] [address] Consulting Physician Infectious Diseases 12/22/2204/01 Giovanna Alexis MD [address] [place] [address] Radiation Oncologist Radiation Oncology 03/09/23 Taisha Suarez, society editor Prehabilitation and Readiness (SPAR) Coordinator General Surgery 03/20/23 04/10/23 Sandra Ma MD [address] DIV IM MEDICAL ONCOLOGY, [facility] 7A, 7B, [address]C [place] [address] Consulting Physician Medical Oncology 04/25/23 05/09/23 Abby Higgins MD PhD [address] DIV IM MEDICAL ONCOLOGY, [facility] 7A, 7B, [address] [place] [address] Medical Oncologist/Radiation Officer Medical Oncology 05/10/23 Adrian Martinez MD [address] DIV SURG TRANSPLANT, [address] [place] [address] Surgical Oncologist Surgical Oncology 05/28/23 Vera Pérez PA [address] [place] [id number] [place] [address] Physician Airport Operations Coordinator Colon and Rectal Surgery 09/13/23 Jim Frausto MD [address] [place] [facility] [phone] [place] [address] Surgeon Colon and Rectal Surgery 11/21/23 Анна Robert, RN [address] [facility] [address] [place] [address] [facility] Outpatient Precision Market Insights 09/29/24 10/01/24 documented as of this encounter
--- OUTSIDE RECORDS SUMMARY | 2025-04-07 19:38 | XMS_ITS | Encounter Summary ---
Author Organization [facility] Address [address] [place] [address] Phone Care Team Providers Care Telephone Interviewer Name Role Phone Kenton Ricks MD Primary Care Provider + [phone] Pebbles Nelson MD Unavailable [phone] Aylin Russ MD Unavailable [phone] Maricruz Ramirez NP Unavailable [phone] Joanne Lopez RN Unavailable Padmini Leatha Carter Unavailable Unavailable Ben Chahal MD PhD Unavailable [phone] Chace Oliva MD Unavailable [phone] Giovanna Alexis MD Unavailable Taisha Suarez RN Unavailable Unavaila Sandra Aguirre MD Unavailable [phone] Abby Higgins MD PhD Unavailable + Adrian Martinez MD Unavailable [phone] Vera Pérez Unavailable [phone] Jim Frausto MD Unavailable [phone] Анна Robert RN Unavailable Encounter Details Date Type Department Care Team (Latest Contact Info) Description 11/15/2017 Orders Only [facility] Scanning, Provider Social History Tobacco Use Types Packs/Day Years Used Date Smoking Tobacco: Former Sex and Gender Information Value Date Recorded Sex Assigned at Not on file Legal Sex Male 12:58 AM MEMORIAL DESIGNER Gender Identity Male 11/11/2018 10:31 AM CDT Sexual Orientation Straight 06/09/2019 5: 34 PM MEMORIAL DESIGNER documented as of this encounter Plan of [...] COVID: Suspected 06/07/2023 06/07/2023 06/07/2023 12:46 PM MEMORIAL DESIGNER COVID19 06/07/2023 06/07/2023 06/22/2023 3:06 AM MEMORIAL DESIGNER COVID: Recovered Comment:Added based on recent COVID infection. 06/22/2023 06/22/2023 09/20/2023 3:05 AM C DT COVID: Suspected 07/24/2023 07/24/2023 07/24/2023 3:53 PM MEMORIAL DESIGNER Diarrhea 07/30/2023 07/30/2023 08/13/2023 3:05 AM MEMORIAL DESIGNER COVID: Suspected 08/30/2023 08/30/2023 08/30/2023 4:52 PM MEMORIAL DESIGNER COVID: Suspected 10/12/2023 10/12/2023 10/12/2023 7:57 PM CDT Rhino/Enterovirus 10/12/2023 10/12/2023 10/26/2023 3:05 AM CDT COVID: Suspected 07/10/2024 07/10/2024 07/10/2024 4:53 PM MEMORIAL DESIGNER COVID: Suspected Comment:07/16/2024 IP Review: no outstanding test, last RPP negative. Mary Tiwari RN 07/16/2024 07/16/2024 10:51 AM MEMORIAL DESIGNER COVID19 Comment:07/16/2024 IP Review: added by CLAUDIO DONNELLY negative. Mary Tiwari RN 07/16/2024 07/16/2024 07/16/2024 10:51 AM MEMORIAL DESIGNER MRSA Comment:nasalMRSA Isolation Correction 09/03/24 07/16/2024 08/15/2024 09/03/2024 6:[address] C. difficile suspected 07/19/2024 07/19/202407/19 2:34 PM MEMORIAL DESIGNER COVID: Suspected 07/23/2024 07/23/2024 07/23/2024 11:28 PM MEMORIAL DESIGNER C. difficile suspected 07/23/2024 07/24/202407/24 10:31 AM MEMORIAL DESIGNER Norovirus suspected 07/23/2024 07/24/2024 07/24/19 9:37 AM MEMORIAL DESIGNER VRE Comment:Contact Precautions (gown and gloves) - not eligible for IP review until 6 months after positive culture - Jerod LEEN, CONY 10/01/24 07/24/2024 09/20/2024 03/19/2025 7:26 PM C DT COVID: Suspected 08/09/2024 08/09/2024 08/09/2024 9:40 AM MEMORIAL DESIGNER Influenza, adult Comment:08/26/2024 IP Review: pt afebrile but on antipyretics. Needs 24 hours off antipyretics and symptoms significantly improved/resolved in order for isolation to be discontinued. Mary Tiwari RN 08/15/2024 08/15/2024 08/29/2024 3:06 AM MEMORIAL DESIGNER Coronavirus, droplet 08/15/2024 08/15/2024 025 3:06 AM MEMORIAL DESIGNER C. difficile suspected 09/19/2024 09/19/202409/20 3:05 AM [...] documented as of this encounter Care Teams Telephone Interviewer Relationship Specialty Start Date End Date Kenton Ricks MD PCP - General 08/14/16 Pebbles Nelson MD Referring Physician Cardiology 02/07/19 Aylin Russ MD 45[address] [facility] [address] [place] [address] Referring Physician Pulmonary Disease 02/07/19 Maricruz Ramirez, AUTOMOTIVE TECHNOLOGY INSTRUCTOR [address] [place] [address] Nurse Practitioner Cardiovascular Disease 09/25/21 Joanne Lopez, RN Registered Nurse Pulmonary Disease 08/24/22 Leatha Cristina RMA Surgical Prehabilitation and Readiness (SPAR) Coordinator 09/01/22 01/02/23 Ben Chahal MD PhD 10 [facility] # 2 [place] [address] Medical Oncologist/Physical Meteorologist Medical Oncology 10/05/22 Chace Oliva MD [address] [facility] [address] [place] [address] Consulting Physician Infectious Diseases 12/22/2204/01 Giovanna Alexis MD [address] [facility] [address] LL LL [address] [place] [address] Radiation Oncologist Radiation Oncology 03/09/23 Taisha Suarez, parts washer Prehabilitation and Readiness (SPAR) Coordinator General Surgery 03/20/23 04/10/23 Sandra Ma MD [address] DIV IM MEDICAL ONCOLOGY, [facility] 7A, 7B, [address]C [place] [address] Consulting Physician Medical Oncology 04/25/23 05/09/23 Abby Higgins MD PhD [address] DIV IM MEDICAL ONCOLOGY, [facility] 7A, 7B, [address] [place] [address] Medical Oncologist/Physical Meteorologist Medical Oncology 05/10/23 Adrian Martinez MD 4921 [facility] DIV SURG TRANSPLANT, [address] [place] [address] Surgical Oncologist Surgical Oncology 05/28/23 Vera Pérez PA [address] [place] [id number] [place] [address] Physician Wire Frame Lampshade Maker Colon and Rectal Surgery 09/13/23 Jim Frausto MD [address] [place] [facility] [phone] [place] [address] Surgeon Colon and Rectal Surgery 11/21/23 Анна Robert, RN 4590 [facility] [address] [place] [address] [facility] Outpatient Rougher Helper 09/29/24 10/01/24 documented as of this encounter
--- OUTSIDE RECORDS SUMMARY | 2025-04-07 19:38 | XMS_ITS | Encounter Summary ---
Author Organization [facility] Address [address] [place] [address] Phone Care Team Providers Care Ware Server Name Role Phone Kenton Ricks MD Primary Care Provider + [phone] Pebbles Nelson MD Unavailable [phone] Aylin Russ MD Unavailable [phone] Maricruz Ramirez NP Unavailable [phone] Joanne Lopez RN Unavailable Padmini Leatha Carter Unavailable Unavailable Ben Chahal MD PhD Unavailable [phone] Chace Oliva MD Unavailable [phone] Giovanna Alexis MD Unavailable Taisha Suarez RN Unavailable Unavaila Sandra Aguirre MD Unavailable [phone] Abby Higgins MD PhD Unavailable + Adrian Martinez MD Unavailable Vera Pérez Unavailable [phone] Jim Frausto MD Unavailable [phone] Анна Robert RN Unavailable [phone] Encounter Details Date Type Department Care Team (Latest Contact Info) Description 12/14/2016 Orders Only [facility] CONVERSION Scanning, Provider Social History Tobacco Use Types Packs/Day Years Used Date Smoking Tobacco: Never Assessed Sex and Gender Information Value Date Recorded Sex Assigned at Not on file Legal Sex Male 12:58 AM SPINNING FRAME FIXER Gender Identity Male 11/11/2018 10:31 AM CDT Sexual Orientation Straight 06/09/2019 5: 34 PM SPINNING FRAME FIXER documented as of this encounter Plan of [...] COVID: Suspected 06/07/2023 06/07/2023 06/07/2023 12:46 PM SPINNING FRAME FIXER COVID19 06/07/2023 06/07/2023 06/22/2023 3:06 AM SPINNING FRAME FIXER COVID: Recovered Comment:Added based on recent COVID infection. 06/22/2023 06/22/2023 09/20/2023 3:05 AM C DT COVID: Suspected 07/24/2023 07/24/2023 07/24/2023 3:53 PM SPINNING FRAME FIXER Diarrhea 07/30/2023 07/30/2023 08/13/2023 3:05 AM SPINNING FRAME FIXER COVID: Suspected 08/30/2023 08/30/2023 08/30/2023 4:52 PM SPINNING FRAME FIXER COVID: Suspected 10/12/2023 10/12/2023 10/12/2023 7:57 PM CDT Rhino/Enterovirus 10/12/2023 10/12/2023 10/26/2023 3:05 AM CDT COVID: Suspected 07/10/2024 07/10/2024 07/10/2024 4:53 PM SPINNING FRAME FIXER COVID: Suspected Comment:07/16/2024 IP Review: no outstanding test, last RPP negative. Mary Tiwari RN 07/16/2024 07/16/2024 10:51 AM SPINNING FRAME FIXER COVID19 Comment:07/16/2024 IP Review: added by RN, RPP negative. Mary Tiwari RN 07/16/2024 07/16/2024 07/16/2024 10:51 AM SPINNING FRAME FIXER MRSA Comment:nasalMRSA Isolation [facility] 09/03/24 07/16/2024 08/15/2024 09/03/2024 6:[address] C. difficile suspected 07/19/2024 07/19/202407/19 2:34 PM SPINNING FRAME FIXER COVID: Suspected 07/23/2024 07/23/2024 07/23/2024 11:28 PM SPINNING FRAME FIXER C. difficile suspected 07/23/2024 07/24/202407/24 10:31 AM SPINNING FRAME FIXER Norovirus suspected 07/23/2024 07/24/2024 07/24/19 9:37 AM SPINNING FRAME FIXER VRE Comment:Contact Precautions (gown and gloves) - not eligible for IP review until 6 months after positive culture - Jerod QURESHI, CONY 10/01/24 07/24/2024 09/20/2024 03/19/2025 7:26 PM C DT COVID: Suspected 08/09/2024 08/09/2024 08/09/2024 9:40 AM SPINNING FRAME FIXER Influenza, adult Comment:08/26/2024 IP Review: pt afebrile but on antipyretics. Needs 24 hours off antipyretics and symptoms significantly improved/resolved in order for isolation to be discontinued. Mary Tiwari RN 08/15/2024 08/15/2024 08/29/2024 3:06 AM SPINNING FRAME FIXER Coronavirus, droplet 08/15/2024 08/15/2024 025 3:06 AM SPINNING FRAME FIXER C. difficile suspected 09/19/2024 09/19/202409/20 3:05 AM [...] documented as of this encounter Care Teams Ware Server Relationship Specialty Start Date End Date Kenton Ricks MD PCP - General 08/14/16 Pebbles Nelson MD Referring Physician Cardiology 02/07/19 Aylin Russ MD [address] [facility] [address] [place] [address] Referring Physician Pulmonary Disease 02/07/19 Maricruz Ramirez, ADJUNCT PROFESSOR OF VOICE [address] [place] [address] Nurse Practitioner Cardiovascular Disease 09/25/21 Joanne Lopez, CONY Registered Nurse Pulmonary Disease 08/24/22 Leatha Cristina RMA Surgical Prehabilitation and Readiness (SPAR) Coordinator 09/01/22 01/02/23 Ben Chahal MD PhD 10 [facility] # 2 [place] [address] Medical Oncologist/Advance Scout Medical Oncology 10/05/22 Chace Oliva MD [address] [facility] [address] [place] [address] Consulting Physician Infectious Diseases 12/22/2204/01 Giovanna Alexis MD [address] [place] [address] Radiation Oncologist Radiation Oncology 03/09/23 Taisha Suarez, conductor orchestra Prehabilitation and Readiness (SPAR) Coordinator General Surgery 03/20/23 04/10/23 Sandra Ma MD [address] DIV IM MEDICAL ONCOLOGY, [facility] 7A, 7B, 7C [place] [address] Consulting Physician Medical Oncology 04/25/23 05/09/23 Abby Higgins MD PhD [address] DIV MEDICAL ONCOLOGY, [facility] 7A, 7B, [address] [place] [address] Medical Oncologist/Advance Scout Medical Oncology 05/10/23 Adrian Martinez MD 4921 [facility] SURG TRANSPLANT, [facility] [address] [place] [address] Surgical Oncologist Surgical Oncology 05/28/23 Vera Pérez PA [address] [place] [id number] [place] [address] Physician Television News Producer Colon and Rectal Surgery 09/13/23 Jim Frausto MD [address] [facility] [phone] [place] [address] Surgeon Colon and Rectal Surgery 11/21/23 Анна Robert, RN 45[address] [facility] [address] [place] [address] [facility] Outpatient Neon Glass Bender 09/29/24 10/01/24 documented as of this encounter
--- OUTSIDE RECORDS SUMMARY | 2025-04-07 19:38 | XMS_ITS | Patient Health Record ---
Author Organization 1 OF Kristopher jaimes DPM [facility] Address [address] [place] [id number] Reason For Referral No Information Plan Of Treatment No Information
--- OUTSIDE RECORDS SUMMARY | 2025-04-07 19:38 | XMS_ITS | Clinical Summary ---
Author Organization [facility] Address [address] [place], [place] [id number] Care Team Providers Care Word Processing Specialist Name Role Phone Ivonne Alcantar PA-C Primary Care Provider [phone] Social History Tobacco Use Types Packs/Day Years [...] COVID-19 Vaccine ( - 2023-2 5 season) 2025 Influenza Adult (#1) 2025 RSV Immunization or 60+ Years (1 - [...] complete this topic Insurance MEDICAID Care Teams Word Processing Specialist Relationship Specialty Start Date End Date Ivonne Alcantar PA-C [address] [place] [address] PCP - General CLAIM INVESTIGATOR 12/06/21
--- OUTSIDE RECORDS SUMMARY | 2025-04-07 19:38 | XMS_ITS | Encounter Summary ---
Author Organization [facility] Address [address] [place] [address] Care Team Providers Care Publications Inspector Name Role Phone Kenton Ricks MD Primary Care Provider + [phone] Pebbles Nelson MD Unavailable [phone] Aylin Russ MD Unavailable [phone] Maricruz Ramirez NP Unavailable [phone] Joanne Lopez RN Unavailable Padmini Leatha Carter Unavailable Unavailable Ben Chahal MD PhD Unavailable [phone] Chace Oliva MD Unavailable [phone] Giovanna Alexis MD Unavailable Taisha Suarez RN Unavailable Unavaila Sandra Aguirre MD Unavailable [phone] Abby Higgins MD PhD Unavailable + Adrian Martinez MD Unavailable [phone] Vera Pérez Unavailable Jim Frausto MD Unavailable Анна Robert RN Unavailable Encounter Details Date Type Department Care Team (Late st Contact Info) Description 06/15/2020 Telephone [facility] Radiology [address] [place] [address] Adalberto Zavala MD [address] [place] [address] Social History Tobacco Use Types Packs/Day Years Used Date Smoking Tobacco: Former Smokeless Tobacco: Never Alcohol Use Standard Drinks/Week Comments Yes 0 (1 standard drink = 0.6 oz pur e alcohol) Occassional Sex and Gender Information Value Date Recorded Sex Assigned at Not on file Legal Sex Male 12:58 AM ACQUISITIONS ASSISTANT Gender Identity Male 11/11/2018 10:31 AM CDT Sexual Orientation Straight 06/09/2019 5: 34 PM ACQUISITIONS ASSISTANT documented as of this encounter Plan [...] COVID: Suspected 06/07/2023 06/07/2023 06/07/2023 12:46 PM ACQUISITIONS ASSISTANT COVID19 06/07/2023 06/07/2023 06/22/2023 3:06 AM ACQUISITIONS ASSISTANT COVID: Recovered Comment:Added based on recent COVID infection. 06/22/2023 06/22/2023 09/20/2023 3:05 AM C DT COVID: Suspected 07/24/2023 07/24/2023 07/24/2023 3:53 PM ACQUISITIONS ASSISTANT Diarrhea 07/30/2023 07/30/2023 08/13/2023 3:05 AM ACQUISITIONS ASSISTANT COVID: Suspected 08/30/2023 08/30/2023 08/30/2023 4:52 PM ACQUISITIONS ASSISTANT COVID: Suspected 10/12/2023 10/12/2023 10/12/2023 7:57 PM CDT Rhino/Enterovirus 10/12/2023 10/12/2023 10/26/2023 3:05 AM CDT COVID: Suspected 07/10/2024 07/10/2024 07/10/2024 4:53 PM ACQUISITIONS ASSISTANT COVID: Suspected Comment:07/16/2024 IP Review: no outstanding test, last RPP negative. Mary Tiwari, RN 07/16/2024 07/16/2024 10:51 AM ACQUISITIONS ASSISTANT COVID19 Comment:07/16/2024 IP Review: added by CLAUDIO DONNELLY negative. Mary Tiwari RN 07/16/2024 07/16/2024 07/16/2024 10:51 AM ACQUISITIONS ASSISTANT MRSA Comment:nasalMRSA Isolation Custodial 09/03/24 07/16/2024 08/15/2024 09/03/2024 6:[address] C. difficile suspected 07/19/2024 07/19/202407/19 2:34 PM ACQUISITIONS ASSISTANT COVID: Suspected 07/23/2024 07/23/2024 07/23/2024 11:28 PM ACQUISITIONS ASSISTANT C. difficile suspected 07/23/2024 07/24/202407/24 10:31 AM ACQUISITIONS ASSISTANT Norovirus suspected 07/23/2024 07/24/2024 07/24/19 9:37 AM ACQUISITIONS ASSISTANT VRE Comment:Contact Precautions (gown and gloves) - not eligible for IP review until 6 months after positive culture - Jerod QURESHI, CONY 10/01/24 07/24/2024 09/20/2024 03/19/2025 7:26 PM C DT COVID: Suspected 08/09/2024 08/09/2024 08/09/2024 9:40 AM ACQUISITIONS ASSISTANT Influenza, adult Comment:08/26/2024 IP Review: pt afebrile but on antipyretics. Needs 24 hours off antipyretics and symptoms significantly improved/resolved in order for isolation to be discontinued. Mary Tiwari RN 08/15/2024 08/15/2024 08/29/2024 3:06 AM ACQUISITIONS ASSISTANT Coronavirus, droplet 08/15/2024 08/15/2024 025 3:06 AM ACQUISITIONS ASSISTANT C. difficile suspected 09/19/2024 09/19/202409/20 3:05 [...] documented as of this encounter Care Teams Publications Inspector Relationship Specialty Start Date End Date Kenton Ricks MD PCP - General 08/14/16 Pebbles Nelson MD Referring Physician Cardiology 02/07/19 Aylin Russ MD [address] [place] [id number] Referring Physician Pulmonary Disease 02/07/19 Maricruz Ramirez, ALTERNATIVE ENERGY ENGINEER [address] [place] [address] Nurse Practitioner Cardiovascular Disease 09/25/21 Joanne Lopez, CONY Registered Nurse Pulmonary Disease 08/24/22 Leatha Cristina RMA Surgical Prehabilitation and Readiness (SPAR) Coordinator 09/01/22 01/02/23 Ben Chahal MD PhD [address] [facility] [address] [place] [address] Medical Oncologist/Casting Machine Operator Automatic Medical Oncology 10/05/22 Chace Oliva MD [address] [place] [address] Consulting Physician Infectious Diseases 12/22/2204/01 Giovanna Alexis MD [address] [place] [address] Radiation Oncologist Radiation Oncology 03/09/23 Taisha Suarez, entry level finance Prehabilitation and Readiness (SPAR) Coordinator General Surgery 03/20/23 04/10/23 Sandra Ma MD [address] DIV IM MEDICAL ONCOLOGY, [address], [address], [address] [place] [address] Consulting Physician Medical Oncology 04/25/23 05/09/23 Abby Higgins MD PhD [address] DIV IM MEDICAL ONCOLOGY, [address], [address], [address] [place] [address] Medical Oncologist/Casting Machine Operator Automatic Medical Oncology 05/10/23 Adrian Martinez MD [address] [facility] DIV SURG TRANSPLANT, [address] [place] [address] Surgical Oncologist Surgical Oncology 05/28/23 Vera Pérez PA [phone] [place] [address] Physician Macerator Operator Colon and Rectal Surgery 09/13/23 Jim Frausto MD [address] [facility] [place] [phone] [place] [address] Surgeon Colon and Rectal Surgery 11/21/23 Анна Robert, RN [address] [facility] [address] [place] [address] [facility] Fire Management Officer 09/29/24 10/01/24 documented as of this encounter
--- OUTSIDE RECORDS SUMMARY | 2025-04-07 19:38 | XMS_ITS | Clinical Summary ---
Author Organization [facility] Address [address] [place] [phone] Phone Care Team Providers Care Loom Fixer Helper Name Role Phone Kenton Ricks MD Primary Care Provider [phone] Allergies Active Allergy Reactions Criticality Noted Date [...] ACEI to ARB. He will contact his storage engineer to follow up regarding this. Acute on [...] Comments Blood Pressure 118/68 05/24/2022 9:24 AM MANAGER MASSAGE DEPARTMENT Pulse - - Temperature 35.7 C (96.3 F) 05/24/2022 9:24 AM MANAGER MASSAGE DEPARTMENT Respiratory Rate 18 05/24/2022 9:24 AM MANAGER MASSAGE DEPARTMENT Oxygen Saturation - - Inhaled Oxygen Concentration - - Weight 126 kg (278 lb) 05/24/2022 9:24 AM MANAGER MASSAGE DEPARTMENT Height 172.7 cm (5' 8) 05/24/2022 9:24 AM MANAGER MASSAGE DEPARTMENT Body Mass Index 42.27 05/24/2022 9:24 AM MANAGER MASSAGE DEPARTMENT Plan of Treatment Health Maintenance Due Date Last Done Comments Pneumococcal PPSV23/PCV13 65 + Years / Low and Medium Risk (1 of 2 - PCV) 2005 Influenza Vaccine (#1) 2025 , 04/01/2017, 06/14/2016 Insurance [employer] MEDICARE ADVANTAGE Care Teams Loom Fixer Helper Relationship Specialty Start Date End Date Kenton Ricks MD [address] [place] [address] PCP - General Family Medicine 02/16/22
--- OUTSIDE RECORDS SUMMARY | 2025-04-07 19:39 | XMS_ITS | Clinical Summary ---
Author Organization [facility] Address [address] [place] [address] Care Team Providers Care Manager Performance Improvement Name Role Phone Kenton Ricks MD Primary Care Provider + [phone] Pebbles Nelson MD Unavailable [phone] Aylin Russ MD Unavailable [phone] Maricruz Ramirez NP Unavailable [phone] Joanne Lopez RN Unavailable Padmini Ben Walker MD PhD Unavailable [phone] Giovanna Alexis MD Unavailable Abby Higgins MD PhD Unavailable + Adrian Martinez MD Unavailable [phone] Vera Pérez Unavailable [phone] Jim Frausto MD Unavailable [phone] Allergies Active Allergy Reactions Criticality Noted Date Comments Ceftriaxone Other (See comments),Nausea & Vomiting Low 11/21/2023 AFIB Doxycycline Other (See comments) 03/01/2025 Liver fumction Iron Dextran Chest tightness Medium 05/14/2023 Iron Dextran Complex Other (See comments) 03/10/2025 CHEST TIGHTNESS Menthol Other (See comments) High 09/17/2017 [place] Skin Meropenem Shortness of breath High 04/11/2022 Tremors, nausea and shortness of breath Prochlorperazine Other (See comments) High 08/24/2022 Tardive dyskinesia chills Sulfa (Sulfonamide Antibiotics) Hives,Rash Medium 05/05/2021 Vancomycin Flushing (skin),Other (See comments) High 12/14/2022 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 Medications albuterol HFA (PROVENTIL HFA,VENTOLIN HFA,PROAIR HFA) [...] a day as needed (pain) 023 Active fluticasone furoate-vilantero L (BREO ELLIPTA) [...] mg total) by mouth nightly Active multivit hpynqvhz-nlpg-PT- calcium (THERA-M) 9 mg iron-400 mcg tablet Take 1 tablet by mouth nightly Active Gemtesa 75 mg tablet Take 75 mg by mouth nightly 024 Active pen needle, diabetic (BD Ultra-Fine Mini Pen Needle) 31 gauge x 3/16 needleIndications :Type 2 diabetes mellitus with other specified complication, without long-term current use of insulin TAKE WITH INSULIN INJECTION 4 TIMES A DAY 400 each 2 024 Active FreeStyle Stephen 3 Plus Sensor deviceIndications :Type 2 diabetes mellitus with microalbuminuria, with long-term current use of insulin (HCC) Use to continually monitor glucose, change sensor every 15 days 6 each 3 024 Active blood glucose diagnostic (True Metrix Glucose Test [...] 60 tablet 025 Active lidocaine (LIDODERM) 5 %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 90 patch 3 025 2025 Active pancrelipase (CREON) 24,000 units of lipase capsule Take 5 capsules by mouth with meals. Take 2 capsules by mouth at bedtime and 1-2 capsules by mouth with snacks daily. 1800 capsule 3 025 Active insulin aspart (NovoLOG) 100 unit/mL (3 [...] physician for adjustment of insulin orders. Active lidocaine (GLYDO) 2 % jelly in applicator [...] tablets (10 mg total) by mouth daily Active NIFEdipine (PROCARDIA) ointment 0.2 %Indications:Anal Fissure Insert into the rectum every 8 (eight) hours as needed (before BM) 60 g Active Additional Information Patient not taking.Reported on 04/07/2025 ferrous sulfate 325 mg (65 mg of elemental iron) tabletIndications :Iron Deficiency Anemia Take 1 tablet (325 mg total) by mouth daily with breakfast 90 tablet 1 2024 Active dicyclomine (BENTYL) 20 mg tablet [...] Units total) under the skin daily Active traZODone (DESYREL) 50 mg tabletIndications :insomnia associated with depression Take 1 tablet (50 mg total) by mouth nightly as needed for sleep 14 tablet Active spironolactone (ALDACTONE) 25 mg tablet Take 1 tablet (25 mg total) by mouth daily 90 tablet 3 Active ubrogepant (UBRELVY) 100 mg tablet Take 1 tablet (100 mg total) by mouth Active methocarbamoL (ROBAXIN) 500 mg tablet Take 1 tablet (500 mg total) by mouth 3 (three) times a day 90 tablet Active gabapentin (NEURONTIN) 800 mg tabletIndications :Neuropathic Pain Take 1 tablet (800 mg total) by mouth 3 (three) times a day 90 tablet 025 2025 Active butalbital-acetam inophen-caffeine (FIORICET) 50-300-40 mg per capsule Take 1 capsule by mouth every 4 (four) hours as needed for headaches 20 capsule Active spironolactone (ALDACTONE) 25 mg tablet TAKE 1 TABLET (25 MG TOTAL) BY MOUTH DAILY. 90 tablet 3 025 2024 Discontinued(R eorder) acetaminophen 500 mg capsuleIndication s:Fever,Pain Take 2 capsules (1,000 mg total) by mouth every 6 (six) hours as needed for fever or headaches 025 2024 Discontinued al & mag hydroxide simethicone-lidoc dinora oral suspension mixture Take 40 mL by mouth 4 (four) times a day as needed (Heartburn/ Indigestion) 200 mL 025 2024 Discontinued gabapentin (NEURONTIN) 600 mg tabletIndications :Neuropathic Pain Take 1 tablet (600 mg total) by mouth 3 (three) times a day 90 tablet 1 025 2024 Discontinued(S top Taking at Discharge) cyclobenzaprine (FLEXERIL) 5 mg tabletIndications :Muscle Spasm Take 1 tablet (5 mg total) by mouth 3 (three) times a day as needed for muscle spasms 30 tablet 025 2024 Discontinued(S top Taking at Discharge) Active Problems Problem Noted Date Diagnosed Date Family history of adrenal cancer 03/26/2025 Family history of melanoma 03/26/2025 Family history of breast cancer 03/26/2025 Family history of thyroid cancer 03/26/2025 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 Assessment & Plan (04/03/2025 8:18 AM CDT): Chronic -Continue home pancreatic enzymes, prn oxycodone, bentyl prn Assessment & Plan (04/02/2025 6:14 PM CDT): Chronic -Continue home pancreatic enzymes, prn oxycodone, bentyl prn Assessment & Plan (04/01/2025 8:51 AM CDT): Chronic -Continue home pancreatic enzymes, prn oxycodone, bentyl prn Assessment & Plan (03/31/2025 10:23 PM CDT): Chronic -Continue home pancreatic enzymes, prn oxycodone, bentyl prn Assessment & Plan (03/05/2025 7:13 AM CDT): -Continue pancreatic lipase Assessment & Plan (03/04/2025 7:30 AM CDT): -Continue pancreatic lipase Assessment & Plan (03/03/2025 7:57 AM CDT): -Continue pancreatic lipase Assessment & Plan (03/02/2025 7:50 AM CDT): -Continue pancreatic lipase Assessment & Plan (03/01/2025 6:28 AM CDT): -Continue pancreatic lipase Elevated liver enzymes 03/01/2025 Assessment & Plan (04/03/2025 8:18 AM CDT): ALP remains elevated similar to recent level; ALT also similarly mildly elevated (<2x ULN) with AST/TB wnl. RUQUS last admission with AST/ALT 200s showed findings suggestive of early cirrhosis, pneumobilia and postoperative changes of cholecystectomy. He had similar LFT elevation -08/2024 which was evaluated by hepatology with liver biopsy 2/7 showing minimal to mild inflammation -Trend LFTs Assessment & Plan (04/02/2025 6:14 PM CDT): ALP remains elevated similar to recent level; ALT also similarly mildly elevated (<2x ULN) with AST/TB wnl. RUQUS last admission with AST/ALT 200s showed findings suggestive of early cirrhosis, pneumobilia and postoperative changes of cholecystectomy. He had similar LFT elevation -08/2024 which was evaluated by hepatology with liver biopsy 2/ showing minimal to mild inflammation -Trend LFTs Assessment & Plan (04/01/2025 8:51 AM CDT): ALP remains elevated similar to recent level; ALT also similarly mildly elevated (<2x ULN) with AST/TB wnl. RUQUS last admission with AST/ALT 200s showed findings suggestive of early cirrhosis, pneumobilia and postoperative changes of cholecystectomy. He had similar LFT elevation -08/2024 which was evaluated by hepatology with liver biopsy 2/7 showing minimal to mild inflammation -Trend LFTs Assessment & Plan (03/31/2025 10:23 PM CDT): ALP remains elevated similar to recent level; ALT also similarly mildly elevated (<2x ULN) with AST/TB wnl. RUQUS last admission with AST/ALT 200s showed findings suggestive of early cirrhosis, pneumobilia and postoperative changes of cholecystectomy. He had similar LFT elevation -08/2024 which was evaluated by hepatology with liver biopsy 2/7 showing minimal to mild inflammation -Trend LFTs Assessment & Plan (03/05/2025 7:13 AM CDT): -AST 241, ALT 221, ALP 684 ( chronically elevated at 300-400) -RUQ U/S as above -Similar issue during admission in 07/2024 which was extensively evaluated including liver biopsy. AST/ALT later normalized. Assessment & Plan (03/04/2025 7:30 AM CDT): -AST 241, ALT 221, ALP 684 ( chronically elevated at 300-400) -RUQ U/S as above -Similar issue during admission in 07/2024 which was extensively evaluated including liver biopsy. AST/ALT later normalized. Assessment & Plan (03/03/2025 7:57 AM CDT): -AST 241, ALT 221, ALP 684 ( chronically elevated at 300-400) -RUQ U/S as above -Similar issue during admission in 07/2024 which was extensively evaluated including liver biopsy. AST/ALT later normalized. Assessment & Plan (03/02/2025 12:17 PM CDT): -AST 241, ALT 221, ALP 684 ( chronically elevated at 300-400) -RUQ U/S as above -Similar issue during admission in 07/2024 which was extensively evaluated including liver biopsy. AST/ALT later normalized. Assessment & Plan (03/01/2025 6:28 AM CDT): -AST 241, ALT 221, ALP 684 ( chronically elevated at 300-400) -RUQ U/S -Similar issue during admission in 07/2024 which was extensively evaluated. AST/ALT later normalized. Acute on chronic abdominal pain 12/09/2024 Assessment [...] 08/23/2024 Assessment & Plan (08/26/2024 3:51 PM MATERIAL ATTENDANT): The patient reported left eye pain with [...] 08/11/2024 Assessment & Plan (08/26/2024 4:05 PM MATERIAL ATTENDANT): Patient developed hematemesis on 08/11 with hypotension [...] 08/04/2024 Assessment & Plan (08/22/2024 10:54 PM MATERIAL ATTENDANT): Started allopurinol this admission Moderate protein-calorie malnutrition [...] Patient Meets Criteria for Moderate Malnutrition: Yes Gastrointestinal ulcer 07/24/2024 Assessment & Plan (03/05/2025 7:13 AM CDT): -Continue PPI Assessment & Plan (03/04/2025 7:30 AM CDT): -Continue PPI Assessment & Plan (03/03/2025 7:57 AM CDT): -Continue PPI Assessment & Plan (03/02/2025 7:50 AM CDT): -Continue PPI Assessment & Plan (03/01/2025 6:28 AM CDT): -Continue PPI Assessment & Plan (08/11/2024 8:44 PM MATERIAL ATTENDANT): - Recent admission 07/10-07/20 for abd pain. [...] the source of patient's ongoing recurrent pain ABLA (acute blood loss anemia) 07/23/2024 Duodenal ulcer 07/23/2024 Oral candidiasis 07/16/2024 Assessment & Plan (07/20/2024 11:28 AM MATERIAL ATTENDANT): - Resulted with Nystatin Anal fissure 11/21/2023 Assessment & Plan (01/15/2025 11:15 AM CDT): -Continue prn lidocaine NE and nifedipine ointment Assessment & Plan (01/14/2025 11:42 AM CDT): -Continue prn lidocaine NE and nifedipine ointment Assessment & Plan (01/13/2025 12:04 PM CDT): -Continue prn lidocaine NE and nifedipine ointment Assessment & Plan (01/13/2025 1:06 AM CDT): -Continue prn lidocaine NE and nifedipine ointment Assessment & Plan (12/10/2024 [...] topical CCB - cannot obtain her at [facility] Assessment & Plan (11/22/2024 12:07 PM CDT): - psyllium qAM, added miralax daily - Added lidocaine jelly qid prn - Sitz baths BID - Will try to start topical CCB - cannot obtain her at [facility] Assessment & Plan (11/21/2024 11:50 AM CDT): - psyllium qAM, added miralax daily - Added lidocaine jelly qid prn - Sitz baths BID - Will try to start topical CCB - cannot obtain her at [facility] Assessment & Plan (11/20/2024 11:11 AM [...] Plan (11/24/2024 9:17 AM CDT): -[facility]AP [facility] Assessment & Plan (11/23/2024 9:48 AM CDT): -CPAP at [facility] Assessment & Plan (11/22/2024 12:07 PM CDT): -CPAP at [facility] Assessment & Plan (11/21/2024 11:50 AM CDT): -CPAP at [facility] Assessment & Plan (11/20/2024 11:11 AM CDT): -CPAP at [facility] Assessment & Plan (11/20/2024 1:34 AM CDT): -CPAP at [facility] Assessment & Plan (10/15/2023 2:34 PM CDT): xCont ppv qhs Assessment & Plan (10/13/2023 2:03 PM CDT): Cont ppv qhs COPD (chronic obstructive pulmonary disease) Assessment & Plan (04/03/2025 8:18 AM CDT): -Continue home Breo Ellipta, Prn albuterol Assessment & Plan (04/02/2025 6:14 PM CDT): -Continue home Breo Ellipta, Prn albuterol Assessment & Plan (04/01/2025 8:51 AM CDT): -Continue home Breo Ellipta, Prn albuterol Assessment & Plan (03/31/2025 10:23 PM CDT): -Continue home Breo Ellipta, Prn albuterol Assessment & Plan (08/26/2024 4:00 PM MATERIAL ATTENDANT): Cont. breo ellipta, prn albuterol Iron deficiency [...] 07/25/2023 Assessment & Plan (07/26/2023 12:35 PM MATERIAL ATTENDANT): - Likely multifactorial 2/2 malignancy, recent whipple, chemotherapy, and pain - Very poor PO intake - RD c/s - Started Mirtazapine - Dietary supplementation - Increased Creon as above Malaise 07/24/2023 Assessment & Plan (07/25/2023 2:16 PM MATERIAL ATTENDANT): - RVP negative - Improving Kidney lesion 07/21/2023 Assessment & Plan (07/25/2023 2:21 PM MATERIAL ATTENDANT): - Left renal cyst noted since at least 2018. - CT AP (07/20) - unchanged indeterminate [...] monitoring. Epigastric pain 07/20/2023 Assessment & Plan (04/03/2025 8:18 AM CDT): Chronic -Continue home pancreatic enzymes, prn oxycodone, bentyl prn Assessment & Plan (04/02/2025 6:14 PM CDT): Chronic -Continue home pancreatic enzymes, prn oxycodone, bentyl prn Assessment & Plan (04/01/2025 8:51 AM CDT): Chronic -Continue home pancreatic enzymes, prn oxycodone, bentyl prn Assessment & Plan (03/31/2025 10:23 PM CDT): Chronic -Continue home pancreatic enzymes, prn oxycodone, bentyl prn Assessment & Plan (07/26/2023 12:33 PM MATERIAL ATTENDANT): - Acute on chronic epigastric pain following [...] 07/09/2023 Assessment & Plan (07/24/2023 5:22 PM MATERIAL ATTENDANT): - Replace per protocol Class 1 obesity due to exces s calories with serious comorbidity and body mass index (BMI) of 34.0 to 34.9 in adult 06/01/2023 H/O Whipple procedure 05/30/2023 Gastrointestinal hemorrhage 05/30/2023 Assessment & Plan (07/14/2024 12:30 PM MATERIAL ATTENDANT): History of Postoperative GI bleed. EGD 05/09/23 [...] 8/6 BCx x2 NGTD - 02/04 RPP / negative - 12/14 BCx w/ 1 of 2 (+) E. coli Anti-infectives: - Cefepime 02/04-02/07 - Linezolid 02/04-02/07 - Metronidazole 02/05-02/07 Plan: - Continue observing off of antibiotics Neurogenic bladder 02/05/2023 Assessment & Plan (07/21/2023 2:06 AM MATERIAL ATTENDANT): Also has Hx of prostate cancer s/p prostatectomy. Takes gemtesa at home which is not on formulary - continue home oxybutynin and flomax Assessment & Plan (02/09/2023 3:46 PM CDT): Patient presented w/ low urine output and asymptomatic urinary retention, required straight cath in [facility], currently voiding and emptying appropriately [...] GERD (gastroesophageal reflux disease) Assessment & Plan (04/03/2025 8:18 AM CDT): -Continue home ppi Assessment & Plan (04/02/2025 6:14 PM CDT): -Continue home ppi Assessment & Plan (04/01/2025 8:51 AM CDT): -Continue home ppi Assessment & Plan (03/31/2025 10:23 PM CDT): -Continue home ppi Assessment & Plan (03/18/2023 1:31 AM CDT): Continue PPI Assessment & Plan (02/05/2023 12:40 AM CDT): Continue home PPI. Fever, unspecified fever cause 02/04/2023 Assessment & Plan (03/05/2025 7:13 AM CDT): -Patient presenting with fever at home (102.5 F), fatigue, chills, diffuse body aches, headache, and some runny nose. He had his bladder stimulator removed from his back 1-1/2 weeks ago. He states that one of the incisions had some redness and swelling around it, for which he was prescribed an antibiotic. In the ED, he was febrile at 100.4 F. UA with no evidence of infection, RPP negative, WBCs 7.3, elevated liver enzymes, and mononucleosis screen negative. Febrile again to 101 on night of 03/02. -CT A/P revealed no evidence of inflammatory change or fluid collection in the area of the recently removed sacral nerve stimulator. There was unchanged bladder wall thickening, which may represent cystitis or be related to chronic bladder outlet obstruction, and an unchanged small exophytic left renal lesion with indeterminate density. CXR showed no infiltrates. -No clear source of infection at this time. RPP is negative. UA is not suggestive of a urinary source, CT abdomen is not suggestive of an intra-abdominal source, and CXR shows no pneumonia. His lower back incision from the bladder stimulator removal does not appear to be infected. His port looks clean with no signs of infection. Gastroenteritis/colitis? On review of his chart, it seems that he has had 2-3 admissions this year for fever and diarrhea, and he was treated for colitis? -RUQ U/S given elevated liver enzymes - findings suggestive of hepatic parenchymal disease to include early cirrhosis without focal lesion identified. -CTH 03/03 with nothing acute -LE US negative for acute DVT Plan: -blood cultures from 03/01 NGTD -stool culture NGTD, c diff: negative -CRP and ESR elevated (although decreased from previous) -ID consulted for fever of unknown origin -TTE with EF of 70% and no signs of vegetations -ID labs: pending: CMV, histo urine, histo blood, q fever, ehrlichia, EBV, RMSF, blasto, EIA, bartonella -ID labs negative: cryptococcus ag, HIV, hepatitis penel, -if febrile again, or NULL worsens may need to check LP -repeated BCx from 03/03 - NGTD Assessment & Plan (03/04/2025 2:06 PM CDT): This is a gentleman with several days of fever of unclear etiology. He has chronically elevated ALP, but acutely elevated AST and ALT. He has slight thrombocytopenia from his baseline. His imaging is suggestive of some mild form of hepatitis. Differential includes endemic fungal mycoses, tick borne illnesses, bacterial infection masked by single dose of antibiotics, and causes of hepatitis. His NULL and exposure history could suggest some mild meningitis/viral syndrome such as WNV. He appears to have gradual improvement since yesterday clinically and continued improvement in his transaminases. Collectively, his picture is most consistent with a viral syndrome; we are thus unlikely to have an identifiable cause of his fever. Plan to monitor his tests overnight and agree with discharge tomorrow. He does not need ID followup, but his PCP should follow up the pending tests (Histo, blasto, Ehrlichia, RMSF, coxiella, bartonella) which are unlikely to be back for the next several days. -Transthoracic echo to evaluate murmur, no remarkable changes - repeat blood cultures with NGTD - RMSF serology, Ehrlichia PCR pending - Serum cryptococcal antigen (negative), urine histoplasma antigen, blastomyces and histoplasma serology pending - Coxiella serology, bartonella serology pending - 4th gen HIV (negative), Hepatitis panel (negative), EBV serology (indicates past infection), CMV PCR pending - head CT given his severe NULL is unremarkable - stool culture pending, NGTD - reasonable to continue holding antibiotics - ID will sign off and follow remaining tests peripherally, please re-engage me if questions Assessment & Plan (03/04/2025 7:30 AM CDT): -Patient presenting with fever at home (102.5 F), fatigue, chills, diffuse body aches, headache, and some runny nose. He had his bladder stimulator removed from his back 1-1/2 weeks ago. He states that one of the incisions had some redness and swelling around it, for which he was prescribed an antibiotic. In the ED, he was febrile at 100.4 F. UA with no evidence of infection, RPP negative, WBCs 7.3, elevated liver enzymes, and mononucleosis screen negative. Febrile again to 101 on night of 03/02. -CT A/P revealed no evidence of inflammatory change or fluid collection in the area of the recently removed sacral nerve stimulator. There was unchanged bladder wall thickening, which may represent cystitis or be related to chronic bladder outlet obstruction, and an unchanged small exophytic left renal lesion with indeterminate density. CXR showed no infiltrates. -No clear source of infection at this time. RPP is negative. UA is not suggestive of a urinary source, CT abdomen is not suggestive of an intra-abdominal source, and CXR shows no pneumonia. His lower back incision from the bladder stimulator removal does not appear to be infected. His port looks clean with no signs of infection. Gastroenteritis/colitis? On review of his chart, it seems that he has had 2-3 admissions this year for fever and diarrhea, and he was treated for colitis? -RUQ U/S given elevated liver enzymes - findings suggestive of hepatic parenchymal disease to include early cirrhosis without focal lesion identified. -CTH 03/03 with nothing acute -LE US negative for acute DVT Plan: -blood cultures from 03/01 NGTD -stool culture NGTD, c diff: negative -CRP and ESR elevated (although decreased from previous) -ID consulted for fever of unknown origin -TTE with EF of 70% and no signs of vegetations -ID labs: pending: CMV, histo urine, histo blood, q fever, ehrlichia, EBV, RMSF, blasto, EIA, bartonella -ID labs negative: cryptococcus ag, HIV, hepatitis penel, -if febrile again, or NULL worsens may need to check LP -repeated BCx from 03/03 - NGTD Assessment & Plan (03/03/2025 7:15 PM CDT): This is a gentleman with several days of fever of unclear etiology. He has chronically elevated ALP, but acutely elevated AST and ALT. He has slight thrombocytopenia from his baseline. His imaging is suggestive of some mild form of hepatitis. Differential includes endemic fungal mycoses, tick borne illnesses, bacterial infection masked by single dose of antibiotics, and causes of hepatitis. His NULL and exposure history could suggest some mild meningitis/viral syndrome such as WNV. -Transthoracic echo to evaluate murmur, especially given his PPM - repeat blood cultures - RMSF serology, Ehrlichia PCR - Serum cryptococcal antigen, urine histoplasma antigen, blastomyces and histoplasma serology - Coxiella serology, bartonella serology - 4th gen HIV, Hepatitis panel, EBV serology, CMV PCR - head CT given his severe NULL - stool culture pending - will consider LP if he fails to improve - reasonable to hold antibiotics for now - will follow Assessment & Plan (03/03/2025 3:02 PM CDT): -Patient presenting with fever at home (102.5 F), fatigue, chills, diffuse body aches, headache, and some runny nose. He had his bladder stimulator removed from his back 1-1/2 weeks ago. He states that one of the incisions had some redness and swelling around it, for which he was prescribed an antibiotic. In the ED, he was febrile at 100.4 F. UA with no evidence of infection, RPP negative, WBCs 7.3, elevated liver enzymes, and mononucleosis screen negative. Febrile again to 101 on night of 03/02. -CT A/P revealed no evidence of inflammatory change or fluid collection in the area of the recently removed sacral nerve stimulator. There was unchanged bladder wall thickening, which may represent cystitis or be related to chronic bladder outlet obstruction, and an unchanged small exophytic left renal lesion with indeterminate density. CXR showed no infiltrates. -No clear source of infection at this time. RPP is negative. UA is not suggestive of a urinary source, CT abdomen is not suggestive of an intra-abdominal source, and CXR shows no pneumonia. His lower back incision from the bladder stimulator removal does not appear to be infected. His port looks clean with no signs of infection. Gastroenteritis/colitis? On review of his chart, it seems that he has had 2-3 admissions this year for fever and diarrhea, and he was treated for colitis? -RUQ U/S given elevated liver enzymes - findings suggestive of hepatic parenchymal disease to include early cirrhosis without focal lesion identified. -CTH 03/03 with nothing acute -LE US negative for acute DVT Plan: -blood cultures from 03/01 NGTD -CRP and ESR elevated (although decreased from previous) -ID consulted for fever of unknown origin -checking TTE, and infectious labs per ID -if febrile again, may need to check LP -f/u repeated BCx Assessment & Plan (03/02/2025 12:17 PM CDT): -Patient presenting with fever at home (102.5 F), fatigue, chills, diffuse body aches, headache, and some runny nose. He had his bladder stimulator removed from his back 1-1/2 weeks ago. He states that one of the incisions had some redness and swelling around it, for which he was prescribed an antibiotic. In the ED, he was febrile at 100.4 F. UA with no evidence of infection, RPP negative, WBCs 7.3, elevated liver enzymes, and mononucleosis screen negative -CT A/P revealed no evidence of inflammatory change or fluid collection in the area of the recently removed sacral nerve stimulator. There was unchanged bladder wall thickening, which may represent cystitis or be related to chronic bladder outlet obstruction, and an unchanged small exophytic left renal lesion with indeterminate density. CXR showed no infiltrates based on my read. -No clear source of infection at this time. RPP is negative. UA is not suggestive of a urinary source, CT abdomen is not suggestive of an intra-abdominal source, and CXR shows no pneumonia. His lower back incision from the bladder stimulator removal does not appear to be infected. His port looks clean with no signs of infection. Gastroenteritis/colitis? On review of his chart, it seems that he has had 2-3 admissions this year for fever and diarrhea, and he was treated for colitis? Plan: -blood cultures from 03/01 NGTD -CRP and ESR elevated (although decreased from previous) -RUQ U/S given elevated liver enzymes - IMPRESSION: 1. Findings suggestive of hepatic parenchymal disease to include early cirrhosis without focal lesion identified. 2. Pneumobilia and postoperative changes of cholecystectomy. -Hold off on antibiotics at this time given hemodynamic stability. If persistent/recurrent fevers or hemodynamic instability, we will start empiric antibiotics -Stool infectious studies including C diff if patient has diarrhea while admitted (report of recent antibiotic prescription for concerns for incision redness/swelling) Assessment & Plan (03/01/2025 6:28 AM CDT): -Patient presenting with fever at home (102.5 F), fatigue, chills, diffuse body aches, headache, and some runny nose. He had his bladder stimulator removed from his back 1-1/2 weeks ago. He states that one of the incisions had some redness and swelling around it, for which he was prescribed an antibiotic. In the ED, he was febrile at 100.4 F. UA with no evidence of infection, RPP negative, WBCs 7.3, elevated liver enzymes, and mononucleosis screen negative -CT A/P revealed no evidence of inflammatory change or fluid collection in the area of the recently removed sacral nerve stimulator. There was unchanged bladder wall thickening, which may represent cystitis or be related to chronic bladder outlet obstruction, and an unchanged small exophytic left renal lesion with indeterminate density. CXR showed no infiltrates based on my read. -No clear source of infection at this time. RPP is negative. UA is not suggestive of a urinary source, CT abdomen is not suggestive of an intra-abdominal source, and CXR shows no pneumonia. His lower back incision from the bladder stimulator removal does not appear to be infected. His port looks clean with no signs of infection. Gastroenteritis/colitis? On review of his chart, it seems that he has had 2-3 admissions this year for fever and diarrhea, and he was treated for colitis? Plan: -Follow up blood cultures -Check CRP and ESR -Check RUQ U/S given elevated liver enzymes -Hold off on antibiotics at this time given hemodynamic stability. If persistent/recurrent fevers or hemodynamic instability, we will start empiric antibiotics -Stool infectious studies including C diff if patient has diarrhea while admitted (report of recent antibiotic prescription for concerns for incision redness/swelling) Scrotal pain 01/16/2023 Assessment & Plan (01/16/2023 [...] restarting. -home infusion lab check on 12/25/22 Liver abscess 12/15/2022 Assessment & Plan (01/16/2023 [...] 11/21/2022 Assessment & Plan (08/26/2024 4:05 PM MATERIAL ATTENDANT): The patient presented with elevated alkaline phosphatase [...] he is scheduled MRI in December at [facility] (requires cardiac monitoring due to ICD) - he is hoping to have this done sooner. Ileus 11/21/2022 Assessment & Plan (07/20/2024 11:29 AM MATERIAL ATTENDANT): - KUB done 07/13 showing ileus without [...] 10/08/2022 Assessment & Plan (07/21/2023 2:04 AM MATERIAL ATTENDANT): Diagnosed in August 2022, now s/p course of Eliquis. Presented with trace b/l lower ext edema, b/l erythema and mild tenderness which per patient is increased from baseline. Had similar presentation last hospitalization and LE duplex 06/07 was negative - CTM and consider rescanning if persistent Assessment & Plan (06/09/2023 4:47 PM MATERIAL ATTENDANT): Hx of DVT in August 2022, he [...] switching to another doac in the future Headache 09/23/2022 Assessment & Plan (04/03/2025 8:18 AM CDT): Presents with severe headache for the last several days. By history, seems most consistent with migraine with nausea, throbbing across forehead or tension headache. Not consistent with cluster headache though prior history, Co2 retention (reports compliance with bipap), infection (recent neg work-up), med overuse. Received a dose of Fioricet and reported burning pain above nose to top of his head. Associated with nausea .Overall is a poor historian but he and his report his headaches have been worse in the last 1-2 weeks. Doesn't recall taking Ulbrelvy prior to this admission, but is mentioned in notes since 2022 by neurology. 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 Kaur 02/12/23 showed lesions over the left and right scalp, subq neurofibromas. Burning pain at that time. Started ubrelvy as an abortive therapy. Concern for medication overuse headache. 03/[address] showed no acute findings -Supportive care and symptomatic management; avoid nsaids as possible/use very sparingly if necessary. -Monitor for infectious s/s -Started Fioricet prn, some change in quality of headache. Reports change from throbbing across forehead to burning above nose to the top of his head. Associated with nausea. Throbbing headache improved today. Fioricet has been helping --Ulbrelvy not available. Can resume prn after discharge --Increasing gabapentin to 800 TID for neuropathic component. He believes this has been helping --Dilaudid prn for severe pain, wean opiates quickly --Will need neurology follow up Assessment & Plan (04/02/2025 6:14 PM CDT): Presents with severe headache for the last several days. By history, seems most consistent with migraine with nausea, throbbing across forehead or tension headache. Not consistent with cluster headache though prior history, Co2 retention (reports compliance with bipap), infection (recent neg work-up), med overuse. Received a dose of Fioricet and reported burning pain above nose to top of his head. Associated with nausea .Overall is a poor historian but he and his report his headaches have been worse in the last 1-2 weeks. Doesn't recall taking Ulbrelvy prior to this admission, but is mentioned in notes since 2022 by neurology. 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 Kaur 02/12/23 showed lesions over the left and right scalp, subq neurofibromas. Burning pain at that time. Started ubrelvy as an abortive therapy. Concern for medication overuse headache. 03/[address] showed no acute findings -Supportive care and symptomatic management; avoid nsaids as possible/use very sparingly if necessary. -Monitor for infectious s/s -Started Fioricet prn, some change in quality of headache. Reports change from throbbing across forehead to burning above nose to the top of his head. Associated with nausea. Throbbing headache improved today --Ulbrelvy not available. Can resume prn after discharge --Increasing gabapentin to 800 TID for neuropathic component. He believes this has been helping --Dilaudid prn for severe pain, wean opiates quickly --Will need neurology follow up Assessment & Plan (04/01/2025 3:34 PM CDT): Presents with severe headache for the last several days. By history, seems most consistent with migraine with nausea, throbbing across forehead or tension headache. Not consistent with cluster headache though prior history, Co2 retention (reports compliance with bipap), infection (recent neg work-up), med overuse. Received a dose of Fioricet and reported burning pain above nose to top of his head. Associated with nausea .Overall is a poor historian but he and his report his headaches have been worse in the last 1-2 weeks. Doesn't recall taking Ulbrelvy prior to this admission, but is mentioned in notes since 2022 by neurology. 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 Kaur 02/12/23 showed lesions over the left and right scalp, subq neurofibromas. Burning pain at that time. Started ubrelvy as an abortive therapy. Concern for medication overuse headache. 03/[address] showed no acute findings -Supportive care and symptomatic management; avoid nsaids as possible/use very sparingly if necessary. -Monitor for infectious s/s -Started Fioricet prn, some change in quality of headache. Reports change from throbbing across forehead to burning above nose to the top of his head. Associated with nausea --Ulbrelvy not available. Can resume prn after discharge --Increasing gabapentin to 800 TID for neuropathic component. He believes this has been helping --Dilaudid prn for severe pain, wean opiates quickly --Will need neurology follow up Assessment & Plan (03/31/2025 10:23 PM CDT): Presents with severe headache for the last several days. By history, seems most consistent with migraine or tension headache. Not consistent with cluster headache though prior history, Co2 retention (reports compliance with bipap), infection (recent neg work-up), med overuse CT showed no acute findings -Supportive care and symptomatic management; avoid nsaids as possible/use very sparingly if necessary. -Monitor for infectious s/s Assessment & Plan (10/01/2022 1:34 PM CDT): He continues to have persistent headache and R neck pain, but improving. No alarm sxs, meningismus, neurologically intact. - CT head negative for acute intracranial abnormality. - Given the ongoing headache, Brain MRI was recommended by ID for evaluation of mets or infection and transferred from [facility] to [facility]. ID here with low concern for [employer] infection. - CT neck/soft tissue with contrast: [...] due to ICD. Plan to transfer to [facility] for further evaluation w/ possible MRI brain and LP. Rash 09/23/2022 Assessment & Plan (06/12/2023 3:50 PM MATERIAL ATTENDANT): - contact dermatitis? Not concerned about drug [...] to melisa skin necrosis. - transfer to [facility] for derm eval Anemia 09/22/2022 Assessment & Plan (07/26/2023 12:35 PM MATERIAL ATTENDANT): Acute on chronic. 7.4 on admission. 5 [...] negative. Assessment & Plan (06/12/2023 3:46 PM MATERIAL ATTENDANT): HGb 7, plt 94, wbc 1.4, abs [...] 09/22/2022 Assessment & Plan (07/26/2023 12:34 PM MATERIAL ATTENDANT): Has Hx of ileus. On scheduled Linzess, Miralax and PRN Senna-Docusate at home. Patient states he's been having 4-5 soft stools daily - Increased Creon as above. Bowel regimen. Assessment & Plan (06/07/2023 11:26 PM MATERIAL ATTENDANT): Continue home regimen of Linzess, Miralax and [...] (08/30/2022): Added automatically from request for surgery [id number] Assessment & Plan (10/15/2023 2:34 PM CDT): Hx of L axillary nodes on CT increased from prior study Should f/u with Dr. Chahal Assessment & Plan (10/13/2023 2:03 PM CDT): Hx of L axillary nodes on CT increased from prior study Should f/u with Dr. Chahal Assessment & Plan (07/26/2023 12:31 PM MATERIAL ATTENDANT): - s/p whipple. Follows with Dr. Chahal [...] plan to hold of next cycle of Blanco/Abraxane till infectious etiology is ruled out Assessment [...] plan to hold of next cycle of Blanco/Abraxane till infectious etiology is ruled out Assessment [...] 09/25. Pancreatic adenocarcinoma 08/30/2022 Assessment & Plan (04/03/2025 8:18 AM CDT): Pt of Dr Chahal. Diagnosed 08/2022. S/p neoadjuvant chemo and radiation then whipple 04/11/23 with adjuvant chemo afterwards (last C3 08/2023). RAUL on imaging since. Assessment & Plan (04/02/2025 6:14 PM CDT): Pt of Dr Chahal. Diagnosed 08/2022. S/p neoadjuvant chemo and radiation then whipple 04/11/23 with adjuvant chemo afterwards (last C3 08/2023). RAUL on imaging since. Assessment & Plan (04/01/2025 8:51 AM CDT): Pt of Dr Chahal. Diagnosed 08/2022. S/p neoadjuvant chemo and radiation then whipple 04/11/23 with adjuvant chemo afterwards (last C3 08/2023). RAUL on imaging since. Assessment & Plan (03/31/2025 10:23 PM CDT): Pt of Dr Chahal. Diagnosed 08/2022. S/p neoadjuvant chemo and radiation then whipple 04/11/23 with adjuvant chemo afterwards (last C3 08/2023). RAUL on imaging since. Assessment & Plan (03/05/2025 7:13 AM CDT): -Oncologist is Dr. Chahal, currently on surveillance Assessment & Plan (03/04/2025 7:30 AM CDT): -Oncologist is Dr. Chahal, currently on surveillance Assessment & Plan (03/03/2025 7:57 AM CDT): -Oncologist is Dr. Chahal, currently on surveillance Assessment & Plan (03/02/2025 7:50 AM CDT): -Oncologist is Dr. Chahal, currently on surveillance Assessment & Plan (03/01/2025 6:28 AM CDT): -Oncologist is Dr. Chahal, currently on surveillance Assessment & Plan (01/15/2025 11:15 AM CDT): -Oncologist is Dr. Chahal, currently on surveillance Assessment & Plan (01/14/2025 11:42 AM CDT): -Oncologist is Dr. Chahal, currently on surveillance Assessment & Plan (01/13/2025 12:04 PM CDT): -Oncologist is Dr. Chahal, currently on surveillance Assessment & Plan (01/13/2025 1:06 AM CDT): -Oncologist is Dr. Chahal, currently on surveillance Assessment & Plan (08/26/2024 4:00 PM MATERIAL ATTENDANT): s/p whipple with PV/SMV resection (04/2023) and neoadjuvant chemo (completed 08/2023). Most recent scan showed no evidence of disease recurrence Currently on surveillance with CA 19-[address] CAP every 3 months Assessment & Plan (07/10/2024 10:48 PM MATERIAL ATTENDANT): Pancreatic cancer s/p Whipple with PV/SMV resection on 04/11/2023 s/p neoadjuvant tx, On surveillance OP follow up. Assessment & Plan (06/08/2023 5:32 PM MATERIAL ATTENDANT): Pancreatic adenocarcinoma sp Whipple, now on Gemcitabine [...] 1 Assessment & Plan (08/25/2022 12:23 PM MATERIAL ATTENDANT): Recurrent UTI followed by ID with scrotal [...] 06/09/2019 Assessment & Plan (06/09/2019 12:54 PM MATERIAL ATTENDANT): He is agreeable to rescheduling the splenic MRI to further define previously incidentally discovered lesion, to better characterize this and establish follow up as necessary. Order entered. I provided Mr. Henson with the phone # to radiology to call if he does not hear back from the office by next week. Chronic diastolic (congestive) heart failure Assessment & Plan (04/03/2025 8:18 AM CDT): -Holding home torsemide, aldactone this morning, resume tomorrow Assessment & Plan (04/02/2025 6:14 PM CDT): -Continue home torsemide, aldactone Assessment & Plan (04/01/2025 8:51 AM CDT): -Continue home torsemide, aldactone Assessment & Plan (03/31/2025 10:23 PM CDT): -Continue home torsemide, aldactone Assessment & Plan (07/14/2024 12:35 PM MATERIAL ATTENDANT): HFpEF Euvolemic, normotensive On hold diuretics for now given pt NPO on IVF for ileus, will restart once able to take in po Assessment & Plan (06/11/2023 10:01 PM MATERIAL ATTENDANT): ECHO 11/21 EF 69%, grade I diastolic [...] diet Assessment & Plan (08/24/2022 1:10 PM MATERIAL ATTENDANT): Stable, continued torsemide, spironolactone Assessment & Plan (09/24/2021 12:42 AM CDT): Patient is feeling better. states legs have decreased by half. Continue with IV lasix. Continue to monitor Cr and lytes as we diurese. Holding torsemide. Continue aldactone with hold parameters. Assessment & Plan (08/18/2018 1:16 AM MATERIAL ATTENDANT): Patient presented with increased shortness of breath [...] (obstructive sleep apnea) 08/18/2018 Assessment & Plan (04/03/2025 8:18 AM CDT): -NPPV while sleeping Assessment & Plan (04/02/2025 6:14 PM CDT): -NPPV while sleeping Assessment & Plan (04/01/2025 8:51 AM CDT): -NPPV while sleeping Assessment & Plan (03/31/2025 10:23 PM CDT): -NPPV while sleeping Assessment & Plan (03/05/2025 7:13 AM CDT): -Continue BiPAP, has home machine Assessment & Plan (03/04/2025 7:30 AM CDT): -Continue BiPAP, has home machine Assessment & Plan (03/03/2025 7:57 AM CDT): -Continue BiPAP, has home machine Assessment & Plan (03/02/2025 7:50 AM CDT): -Continue BiPAP, has home machine Assessment & Plan (03/01/2025 6:28 AM CDT): -Continue BiPAP, has home machine Assessment & Plan (01/15/2025 11:15 AM CDT): [...] NPPV Assessment & Plan (08/26/2024 4:02 PM MATERIAL ATTENDANT): continue nightly CPAP Assessment & Plan (07/21/2023 6:17 AM MATERIAL ATTENDANT): Desaturations noted in the ED during sleep per on monitor while on RA (not recorded) - continue nightly BiPAP Assessment & Plan (06/07/2023 11:32 PM MATERIAL ATTENDANT): Continue nightly BiPAP Assessment & Plan (03/18/2023 [...] 8:24 AM CDT): -resume home CPAP at [facility] Assessment & Plan (09/22/2022 3:17 AM CDT): -resume home CPAP at [facility] Assessment & Plan (08/24/2022 1:08 PM MATERIAL ATTENDANT): - home CPAP machine use Assessment & Plan (09/24/2021 12:39 AM CDT): Patient has home NPPV which has been reordered. Assessment & Plan (08/18/2018 1:17 AM MATERIAL ATTENDANT): Patient with a history of of bilateral diaphragmatic paralysis with central and obstructive sleep apnea. Restart CPAP Shortness of breath at rest 08/18/2018 Assessment & Plan (08/18/2018 1:27 AM MATERIAL ATTENDANT): Patient with complex past medical history with [...] 07/26/2018 Assessment & Plan (08/26/2024 4:05 PM MATERIAL ATTENDANT): H/o vtach s/p ICD 2013 EP consulted for MRCP earlier in admission. Patient's device is conditioned for MRI. Risk stratification: standard Assessment & Plan (07/10/2024 10:38 PM MATERIAL ATTENDANT): History of ventricular tachycardia ICD in place Assessment & Plan (07/21/2023 2:11 PM MATERIAL ATTENDANT): Follows with Dr. Nelson in EP for [...] Aug Assessment & Plan (06/11/2023 9:59 PM MATERIAL ATTENDANT): Follows with Dr. Nelson in EP for history of VT s/p ICD. Denies any recent shocks, as per not there was unscheduled alarm this month due to RV lead impedance. Has outpatient appointment in August Outpatient follow up with EP Assessment & Plan (03/18/2023 1:23 AM CDT): Monitor. MRI conditional. If needs MRI, will need to go to [facility]. Assessment & Plan (02/05/2023 6:58 PM [...] ordered Assessment & Plan (08/18/2018 1:17 AM MATERIAL ATTENDANT): Last device interrogation was in July of [...] s/p shoulder surgery. Follows with Dr. Russ ([facility]) as OP. On Symbicort at home. 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 Russ - c/w Breo-Ellipta Assessment & Plan (08/18/2018 1:17 AM MATERIAL ATTENDANT): Continue with gabapentin Chronic heart failure with preserved ejection fr action 09/18/2017 Assessment & Plan (03/05/2025 7:13 AM CDT): Stable, continue torsemide Assessment & Plan (03/04/2025 7:30 AM CDT): Stable, continue torsemide Assessment & Plan (03/03/2025 7:57 AM CDT): Stable, continue torsemide Assessment & Plan (03/02/2025 7:50 AM CDT): Stable, continue torsemide Assessment & Plan (03/01/2025 6:28 AM CDT): Stable, continue torsemide Assessment & Plan (01/15/2025 11:15 AM CDT): [...] PO Assessment & Plan (08/26/2024 4:06 PM MATERIAL ATTENDANT): Volume down on admission due to diarrhea, now appear slightly volume up, likely I/s/o transfusions and held diuretics Continue to hold home torsemide and spironolactone for now, consider gently resuming prior to discharge Assessment & Plan (07/26/2023 12:34 PM MATERIAL ATTENDANT): BLE edema with erythema noted on exam. [...] of diabetes education: yes. Assessment & Plan (04/03/2025 8:18 AM CDT): Home regimen: tresiba 35U QAM, lispro 12U TIDAC. Blood sugar over 400 last night and received 5 units IV insulin 03/31 HgbA1c 8.2 -Tresiba 30<40units -Lispro 10<13U TIDAC -SSI Assessment & Plan (04/02/2025 6:14 PM CDT): Home regimen: tresiba 35U QAM, lispro 12U TIDAC. Blood sugar over 400 last night and received 5 units IV insulin 03/31 HgbA1c 8.2 -Tresiba 30U QAM. Additional 10 units Lantus today -Lispro 10<13U TIDAC -SSI Assessment & Plan (04/01/2025 8:51 AM CDT): Home regimen: tresiba 35U QAM, lispro 12U TIDAC -Tresiba 30U QAM -Lispro 10U TIDAC -SSI Assessment & Plan (03/31/2025 10:23 PM CDT): Home regimen: tresiba 35U QAM, lispro 12U TIDAC -Tresiba 30U QAM -Lispro 10U TIDAC -SSI Assessment & Plan (03/05/2025 7:13 AM CDT): -Home regimen per patient's report: Tresiba 35 units and aspart 12 units with meals -Lantus 17 units and aspart 6 units +SSI while admitted. Adjust as needed (noted report of low blood sugar on recent my chart messages) Assessment & Plan (03/04/2025 7:30 AM CDT): -Home regimen per patient's report: Tresiba 35 units and aspart 12 units with meals -Lantus 17 units and aspart 6 units +SSI while admitted. Adjust as needed (noted report of low blood sugar on recent my chart messages) Assessment & Plan (03/03/2025 7:57 AM CDT): -Home regimen per patient's report: Tresiba 35 units and aspart 12 units with meals -Lantus 17 units and aspart 6 units +SSI while admitted. Adjust as needed (noted report of low blood sugar on recent my chart messages) Assessment & Plan (03/02/2025 7:50 AM CDT): -Home regimen per patient's report: Tresiba 35 units and aspart 12 units with meals -Lantus 17 units and aspart 6 units +SSI while admitted. Adjust as needed (noted report of low blood sugar on recent my chart messages) Assessment & Plan (03/01/2025 6:28 AM CDT): -Home regimen per patient's report: Tresiba 35 units and aspart 12 units with meals -Lantus 17 units and aspart 6 units +SSI while admitted. 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 Assessment & Plan [...] regimen Assessment & Plan (08/26/2024 4:05 PM MATERIAL ATTENDANT): Last A1c 8.4. Home regimen: tresiba 45 units, novolog 12 units w/ breakfast and dinner, 8 units with lunch and sliding scale 1:50 > 150 Continue lantus 5 units qam + SSI Assessment & Plan (07/17/2024 2:29 PM MATERIAL ATTENDANT): - On tresiba 24U Qam and Lispro [...] hdssi Assessment & Plan (07/26/2023 12:33 PM MATERIAL ATTENDANT): Insulin dependant. Home regimen: Tresiba 42 units qam, Meal-time insulin 15u tid, SSI. Has had poor oral intake over last 2-3 weeks. He mentions his Stephen 2 sensor has been recording low sugars in 40s-50s overnight for 1 week - SSI inpatient - QID accuchecks Assessment & Plan (06/08/2023 5:39 PM MATERIAL ATTENDANT): Hgb1c 8.4% in 04/23, follows with endo [...] -SSI Assessment & Plan (08/24/2022 1:07 PM MATERIAL ATTENDANT): -Home regimen metformin + Tresiba 35 units qAM and novolog 11 units with meals plus SSI -Continue basal bolus regimen, dose reduced while inpatient -Accuchecks Assessment & Plan (09/24/2021 12:38 AM CDT): Patient on PO hypoglycemics. Monitor on SSI. Assessment & Plan (06/09/2019 12:53 PM MATERIAL ATTENDANT): Diet controlled. A1C at goal. On ARB. Follow up with ophtho as previously scheduled. Recommend statin for primary prevention. He will follow up with his PCP for this Acute on Chronic Back pain 07/31/2016 Assessment & Plan (04/03/2025 8:18 AM CDT): Neuro exam is non-focal, though limited by pain; chronic incontinence. CT lumbar spine with no acute findings. -Continue home gabapentin, feels it helps. Increased dose from 600<800 TID -Lidocaine patches -PRN apap; continue home prn oxycodone -Change flexeril to methocarbamol PRN -Voltaren gel prn --dilaudid prn -PT/OT Assessment & Plan (04/02/2025 6:14 PM CDT): Neuro exam is non-focal, though limited by pain; chronic incontinence. CT lumbar spine with no acute findings. -Continue home gabapentin, feels it helps. Increased dose from 600<800 TID -Lidocaine patches -PRN apap; continue home prn oxycodone -Change flexeril to methocarbamol PRN -Voltaren gel prn --dilaudid prn -PT/OT Assessment & Plan (04/01/2025 3:34 PM CDT): Neuro exam is non-focal, though limited by pain; chronic incontinence. CT lumbar spine with no acute findings. -Continue home gabapentin, feels it helps. Increased dose from 600<800 TID -Lidocaine patches -PRN apap; continue home prn oxycodone -Change flexeril to methocarbamol PRN -Voltaren gel prn --dilaudid prn -PT/OT Assessment & Plan (03/31/2025 10:25 PM CDT): Neuro exam is non-focal, though limited by pain; chronic incontinence. CT lumbar spine with no acute findings. -Continue home gabapentin -Lidocaine patches -PRN apap; continue home prn oxycodone -Continue flexeril PRN -Voltaren gel prn -PT/OT Adrenal nodule (CMS/HCC) 09/06/2015 Assessment & Plan (06/09/2019 12:49 PM MATERIAL ATTENDANT): Nodule has not grown on interim imaging. Needs low dose dexamethasone suppression test annually x 5 years since initial evaluation given propensity of some adrenal nodules to become cortisol secreting overtime. Thyroid nodule 09/06/2015 Assessment & Plan (06/09/2019 12:48 PM MATERIAL ATTENDANT): S/p FNA with benign cytology. Will repeat US in the spring to monitor biopsied thyroid nodule for growth. Multinodular goiter 05/10/2015 Hernia of abdominal wall 02/18/2015 Assessment & Plan (06/09/2019 12:54 PM MATERIAL ATTENDANT): He will follow up with Dr. 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 Higgins in medical oncology [...] 02/23/2012 Assessment & Plan (08/26/2024 4:06 PM MATERIAL ATTENDANT): continue home rosuvastatin consider resuming ASA Assessment & Plan (07/10/2024 10:44 PM MATERIAL ATTENDANT): Cath in 10/2023 nonobstructive coronary artery disease [...] murmur 01/24/2012 Hyperlipidemia 01/24/2012 Assessment & Plan (04/03/2025 8:18 AM CDT): -Continue home crestor Assessment & Plan (04/02/2025 6:14 PM CDT): -Continue home crestor Assessment & Plan (04/01/2025 8:51 AM CDT): -Continue home crestor Assessment & Plan (03/31/2025 10:23 PM CDT): -Continue home crestor Assessment & Plan (01/15/2025 11:15 AM CDT): [...] Restless leg syndrome 02/28/2011 Assessment & Plan (04/03/2025 8:18 AM CDT): -Continue home pramipexole Assessment & Plan (04/02/2025 6:14 PM CDT): -Continue home pramipexole Assessment & Plan (04/01/2025 8:51 AM CDT): -Continue home pramipexole Assessment & Plan (03/31/2025 10:23 PM CDT): -Continue home pramipexole Assessment & Plan (03/18/2023 1:24 AM CDT): [...] asthma Assessment & Plan (07/21/2023 2:06 AM MATERIAL ATTENDANT): Follows with Dr. Nelson - Continue home Breo and PRN albuterol inhaler Assessment & Plan (06/07/2023 11:31 PM MATERIAL ATTENDANT): Follows with Dr. Nelson in pulmonary -Continue home Breo and PRN albuterol inhaler Assessment & Plan (09/25/2022 1:41 AM CDT): -Continue home inhalers. Assessment & Plan (09/22/2022 11:00 AM CDT): Continue home inhalers. Assessment & Plan (08/21/2022 4:13 AM MATERIAL ATTENDANT): -Symbicort replaced with formulary Breo Ellipta while inpatient -Continue prn albuterol Assessment & Plan (09/24/2021 12:42 AM CDT): Continue breathing treatment. Resolved Problems Problem Noted Date Diagnosed Date Resolved Date Abdominal pain, generalized 01/12/2025 01/13/2025 Ventilator associated pneumonia 08/22/2024 08/22/2024 Acute hypoxemic respiratory failure 08/22/2024 08/23/2024 Assessment & Plan (08/22/2024 8:41 PM MATERIAL ATTENDANT): Fevers + O2 requirement Aug 14, subsequently found to be positive for Influenza A and Coronavirus ([id number]). 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 S/p tamiflu, Linezolid (08/15-08/18), Cefepime (08/15- 08/17), Ciprofloxacin (08/08). Currently on RA. - supportive care Dysuria 07/25/2024 08/24/2024 Assessment & Plan (08/22/2024 10:12 PM MATERIAL ATTENDANT): Now resolved. UA on admission with leuk [...] 07/25/2024 Assessment & Plan (07/29/2024 3:21 PM MATERIAL ATTENDANT): Pt reports new burning pain around left axilla that wraps to the front of his chest. Notes he had this before and area began draining pus and had a foul odor - no erythema or rash noted -Us L axilla- no signs of any fluid collection or lymphadenopathy - already on gabapentin KRISTA (acute kidney injury) 07/24/2024 Assessment & Plan (08/02/2024 11:26 AM MATERIAL ATTENDANT): Resolved - Baseline Cr 0.5. Cr on admission was 1.01 - Likely pre-renal due to diarrhea - improved with IVF Dehydration 07/24/2024 08/26/2024 Assessment & Plan (07/26/2024 12:35 PM MATERIAL ATTENDANT): - due to diarrhea - s/p 1L IVF bolus in [facility] and maintenance IVF Diarrhea 07/19/2024 08/24/2024 Assessment & Plan (08/09/2024 2:16 PM MATERIAL ATTENDANT): - P/w 1-day history of 7-8 episodes [...] resolved Assessment & Plan (07/20/2024 11:33 AM MATERIAL ATTENDANT): - Developed after resolution of ileus. - C diff negative - Increased Creon back to home dose - Imodium prn - Hold Linzess until diarrhea resolved Abdominal pain 11/09/2023 08/25/2024 Assessment & Plan (08/11/2024 8:39 PM MATERIAL ATTENDANT): Acute on chronic abdominal pain. Likely multifactorial, [...] hematemesis Assessment & Plan (07/14/2024 12:31 PM MATERIAL ATTENDANT): Hx of pancreatic cancer s/p whipple presented initially to the [facility] with abd pain , nausea [...] NSAIDs Assessment & Plan (07/10/2024 9:32 PM MATERIAL ATTENDANT): Hx of pancreatic cancer s/p whipple presented initially to the [facility] with abd pain , nausea [...] 08/24/2024 Assessment & Plan (08/11/2024 8:40 PM MATERIAL ATTENDANT): Complained chest pain at left chest while [...] 08/01/2024 Assessment & Plan (08/01/2024 2:54 PM MATERIAL ATTENDANT): -has ICD in place Assessment & Plan (10/15/2023 2:32 PM CDT): Pacer site looks cdi without erythema, mild swelling noted Cmu rev= sinus Rpt bmp/mg in am Assessment & Plan (10/14/2023 4:59 PM CDT): Pacer site looks cdi without erythema, mild swelling noted Cmu rev= sinus Supp kcl 40 meq PO Rpt bmp/mg in am Acute hypoxemic respiratory failure due to COVID-19 06/07/2023 03/31/2025 Assessment & Plan (06/12/2023 3:47 PM MATERIAL ATTENDANT): Presented with 3 days of fever, dry [...] home, no concerns about mobility or functionality E coli bacteremia 12/15/2022 03/31/2025 Assessment & Plan (12/19/2022 6:24 PM CDT): [...] - 12/16) -Repeat blood cultures 12/15 negative. Acute respiratory failure with hypoxia 11/18/2022 03/07/2023 [...] 08/22/2024 Assessment & Plan (08/05/2024 11:42 PM MATERIAL ATTENDANT): RESOLVED. DDx include viral infection vs transient [...] prn. Assessment & Plan (07/20/2024 11:30 AM MATERIAL ATTENDANT): - Developed fever 38.4 C on 07/16 [...] May need LEVAR pending 2nd culture results Abnormal CT scan of lung 09/22/2022 Assessment [...] higher risk w/ active malignancy Generalized weakness 09/21/202210/28/2 023 Assessment & Plan (09/23/2022 2:02 PM [...] which raise concern for an infectious syndrome -GAS CUTTER swab RPP negative -check blood cultures; hold [...] 10/28/2022 Assessment & Plan (08/24/2022 1:12 PM MATERIAL ATTENDANT): Referred pancreatitis pain. 12 lead EKG shows no acute changes, baseline NSR with RBB and intrafascicular block. Trop negative. Elevated transaminase level 08/21/2022 10/28/2022 Assessment & Plan (08/24/2022 1:10 PM MATERIAL ATTENDANT): First noted to have elevated alk phos, [...] 023 Assessment & Plan (08/22/2022 2:20 PM MATERIAL ATTENDANT): Diagnosed as outpatient and started on fidaxomicin by ID 08/16/2022. Still with persistent diarrhea. -Continue fidaxomicin -ID following Pancreatic lesion 08/20/2022 10/28/2022 Overview (08/21/2022): Added automatically from request for surgery [id number] Assessment & Plan (08/24/2022 1:08 PM MATERIAL ATTENDANT): S/P EUS wit FNA confirmed adenocarcinoma. GI arranging oncology and surgical follow up as outpatient Urinary tract infection asso ciated with cystostomy catheter, initial encounter 04/09/2022 0 10/28/2022 Brugada syndrome 07/09/2020 09/10/2020 Cough in adult 06/09/2019 10/28/2022 Assessment & Plan (06/09/2019 12:52 PM MATERIAL ATTENDANT): This appears to be chronic and persist despite switching from ACEI to ARB. 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 Urinary incontinence 08/18/2018 023 Assessment & Plan (08/18/2018 1:22 AM MATERIAL ATTENDANT): Continue with Myrbetriq and vesicare Polymorphic ventricular [...] Encounter for preventive health examination 08/08/2016 10/28/2022 Carpal tunnel syndrome 07/19/201610/28 Triggering of digit 07/19/2016 10/29/19 23 Nephrolithiasis 03/20/2016 10/28/2022 Insomnia 12/16/2015 10/28/2022 Ventilatory defect 12/15/2015 3 Hypoglycemia 05/10/2015 10/28/2022 Long Q-T syndrome 03/19/2015 10/28/2022 Chronic sinusitis 12/23/2014 10/28/2022 Orthopedic aftercare 03/05/2014 023 Chest discomfort 08/20/2013 10/28/2022 Class 2 severe obesity with serious comorbidity in adult 02/17/2013 10/28/2022 Assessment & Plan (06/09/2019 12:47 PM MATERIAL ATTENDANT): Congratulated on recent weight loss. Continue attention to diet, low carb, exercise as able. Palpitations 10/30/2012 10/28/2022 Disorder of lung 08/05/2012 10/28/2022 Narcolepsy 01/24/2012 10/28/2022 Abnormal blood chemistry level 01/19/2012 10/28/2022 Syncope 02/28/2011 10/28/2022 Encounter for preventive health examination 11/23/2010 10/28/2022 Encounters Date Type Department Care Team Description 04/07/2025 7:30 PM CDT Office Visit [facility] at [address] [address] Rick Alvarez NP Pain in left testicle (Primary Dx); Swelling of left testicle 03/31/2025 4:37 PM CDT - 04/03/2025 10:53 AM CDT Hospital Encounter [facility] [address] [id number] [place] [address] Matthias Laurent MD Baum, MD Phoenix Butcher Sonya Yannie, MD Martin, Jenaro Zuluaga MD Intractable chronic migraine without aura and without status migrainosus (Primary Dx); Neurofibromatosis, type 1 (HCC); Acute nonintractable headache, unspecified headache type; Leg weakness, bilateral Discharge Disposition: Discharge to home or self care 03/31/2025 Documentation [facility] Medicine Oncology [address] [place] [address] Mary Grady CMA 03/26/2025 10:30 AM CDT Telemedicine [facility] Cancer Genetics Department [address] [place] [id number] Flores Barnett CGC Pancreatic adenocarcinoma (HCC) (Primary Dx); Neurofibromatosis, type 1 (HCC); Family history of breast cancer; Family history of melanoma; Family history of thyroid cancer; Family history of adrenal cancer; Encounter for nonprocreative genetic counseling 03/26/2025 Telephone [facility] Cardiology [facility] 8th [place] [address] [place] [address] Nicki Conroy 03/23/2025 1:30 PM CDT Procedure visit [facility] Medicine Dermatology [address] [facility] Floor 6 [place] [phone] Kemal Galvez MD Basal cell carcinoma (BCC) of right lower leg (Primary Dx) 03/18/2025 8:30 AM CDT Office Visit [facility] Cardiology [address] [facility] Medical [address] [place] [address] Gil Baldwin MD Chronic diastolic congestive heart failure (HCC) (Primary Dx); Coronary artery disease involving nome coronary artery of nome heart, unspecified whether angina present; Paroxysmal atrial fibrillation (HCC) 03/06/2025 Documentation [facility] Endocrinology Metabolism and Lipid [address] [facility] 13th [place] [address] [place] [address] Mirtha Escalona MD 02/28/2025 8:43 PM CDT - 03/05/2025 3:43 PM CDT Hospital Encounter [facility] [address] [address] [place] [address] Jorge L Garcia MD [place], MD Joan Farley, MD Jolie Haynes Tong, MD Fever, unspecified fever cause (Primary Dx); Encounter for post surgical wound check Discharge Disposition: Discharge to home or self care 02/28/2025 Telephone [facility] [address] [facility] [address] [place] [address] Melva Vo RN 02/25/2025 Results Follow-Up [facility] Dermatology [address] [facility] [address] [place] [phone] Kemal Galvez MD Surgical pathology 02/24/2025 Orders Only [facility] Pathology Outreach [address] [place] [address] Kemal Galvez MD Neoplasm of skin 02/23/2025 2:00 PM CDT Office Visit [facility] Dermatology [address] [facility] Floor [address] [place] [phone] Kemal Galvez MD Neoplasm of skin (Primary Dx); Neurofibroma; Neurofibromatosis, type 1 (HCC) 02/13/2025 Telephone [facility] Surgery [address] [facility] Medical Office Building [address] [place] [address] Oksana Faust, RN 02/06/2025 Telephone [facility] Cardiology [address] [facility] 8th [place] [address] [place] [address] Pebbles Nelson MD 02/05/2025 1:36 PM CDT - 02/05/2025 11:59 PM CDT Hospital Encounter [facility] [address] [place] [address] Malignant neoplasm of pancreas, unspecified location of malignancy (HCC); Intractable pain Discharge Disposition: Discharge to home or self care 02/05/2025 Documentation [facility] Oncology [facility] Floor [address] [place] [address] Breanna Han RN 01/30/2025 Telephone [facility] Oncology [facility] Floor 5 [place] [address] Breanna Han RN 01/29/2025 Orders Only [facility] Oncology [address] [place] [address] Floor 5 [place] [phone] Ben Chahal MD PhD Malignant neoplasm of pancreas, unspecified location of malignancy (HCC) (Primary Dx); Intractable pain 01/26/2025 Documentation [facility] Cardiology [facility] Office Building [address] [place] [address] Pebbles Nelson MD 01/23/2025 Results Follow-Up [facility] Gastroenterology [address] [facility] Office [address], [address] [place] [address] Debbie Rolon, CONY MRI/MRCP (abdomen) W WO Contrast 01/22/2025 Orders Only [facility] Cardiology [facility] Office Building [address] [place] [address] Pebbles Nelson MD 01/21/2025 9:27 AM CDT - 01/21/2025 11:59 PM CDT Hospital Encounter [facility] Radiology 1 [place] [address] Encounter for imaging to screen for metal prior to magnetic resonance imaging (MRI) Discharge Disposition: Discharge to home or self care 01/21/2025 7:48 AM CDT - 01/21/2025 11:59 PM CDT Hospital Encounter [facility] Radiology [address] [place] [address] scan, pelvis Discharge Disposition: Discharge to home or self care 01/21/2025 7:48 AM CDT - 01/21/2025 11:59 PM CDT Hospital Encounter [facility] Radiology [address] [place] [address] Encounter for imaging to screen for metal prior to magnetic resonance imaging (MRI) Discharge Disposition: Discharge to home or self care 01/21/2025 Documentation Cardiology Tati Patino GAS CUTTER 01/19/2025 3:00 PM CDT Office Visit [facility] Medicine Oncology [address] [place] [address] Floor 5 [place] [address] Ben Chahal MD PhD Pancreatic adenocarcinoma (HCC) (Primary Dx) 01/19/2025 2:00 PM CDT Clinical Support [facility] Medicine Oncology Lab [facility] Floor [address] [place] [address] Pancreatic adenocarcinoma (HCC) 01/19/2025 1:45 PM CDT Lab [facility] - Lab Collection [address] [facility] Floor 5 [place] [address] Ben Chahal MD PhD Pancreatic adenocarcinoma (HCC) 01/19/2025 12:38 PM CDT - 01/19/2025 11:59 PM CDT Hospital Encounter [facility] [address] [facility] Floor 8 [place] [address] Pancreatic adenocarcinoma (HCC) Discharge Disposition: Discharge to home or self care 01/13/2025 Orders Only [facility] Medicine Oncology [address] [place] [address] Floor [address] [place] [address] Ben Chahal MD PhD Pancreatic adenocarcinoma (HCC) (Primary Dx) 01/12/2025 7:45 PM CDT - 01/15/2025 3:41 PM CDT Hospital Encounter [facility] [address] [address] [facility] [place] [address] Chaz Hernandez MD Heath, MD Regla Gonzalez, MD Tor Chung, Cb Ellsworth MD Abdominal pain, generalized (Primary Dx); Pigmented skin lesion; Acute on chronic abdominal pain Discharge Disposition: Discharge to home or self care 01/09/2025 Telephone [facility] Medicine Gastroenterology [address] [facility] 12th [place] [address] [place] [address] Afsaneh Whyte LPN Follow-up 01/06/2025 8:40 AM CDT Office Visit [facility] Endocrinology Metabolism and Lipid [address] [facility] [address], [address] [place] [address] Margaret Balderas MD Type 2 diabetes mellitus with other specified complication, without long-term current use of insulin (HCC) (Primary Dx); Type 2 diabetes mellitus with microalbuminuria, with long-term current use of insulin (HCC); Mixed hyperlipidemia; Class 1 obesity due to excess calories with serious comorbidity and body mass index (BMI) of 34.0 to 34.9 in adult from Last 3 Months Immunizations Immunization Administration [...] 02/22/2019 Surgical History Surgery Date Site/Laterality Comments NE TONSILLECTOMY PRIMARY/SECONDARY <AGE 12 [birth year]02/1957 - 07[birth year]01/1958 [...] obesity with serious comorbidity in adult 02/17/2013 HL (hearing loss) Tinnitus Arthritis Hypertension VICK on CPAP Multiple thyroid nodules Type 2 diabetes mellitus Pancreatic cancer (HCC) Status-p ost radiation, chemotherapy and Whipple surgery BPH (benign prostatic hyperplasia) Marginal ulcer Restless leg E coli bacteremia 12/15/2022 Acute hypoxemic respiratory failure due to COVID-19 (HCC) 06/07/2023 Family History Medical History Relation Name Comments Brother 1 Joesph Multiple myeloma Brother 2 Chema Prostate cancer Brother 2 Chema not believed to have NF1 Neurofibromatosis Brother 3 No Known Problems Daughter Meghan Diabetes Father Heart disease Father Heart failure Father Neurofibromatosis Father Stroke Father Alzheimer's disease Mother Breast cancer Mother Melanoma Nephew Yariel COD at 46 Melanoma Sister 1 Neurofibromatosis Sister 1 Neurofibromatosis Sister 2 Breast cancer Sister 3 Neurofibromatosis Sister 3 Breast cancer Sister 4 Neurofibromatosis Sister 4 Colon cancer Sister 5 Neurofibromatosis Sister 5 Thyroid cancer Sister 5 Breast cancer Sister 6 Monet not believed t o have NF1 Melanoma Sister 6 Monet Adrenal cancer Sister 7 COD at 55 Neurofibromatosis Sister 7 Neurofibromatosis Sister 8 No Known Problems Son 1 Seng Neurofibromatosis Son 2 John Anesthesia problems Neg Hx Celiac disease Neg Hx Diabetes type I Neg Hx Inflammatory bowel disease Neg Hx Relation Name Status Comments Brother 1 Joesph (Age 1) Brother 2 Chema Alive Brother 3 Alive Daughter Meghan Alive Father (Age 78) Father's Sister Alive Maternal Grandfather (Age 66) Maternal Grandmother (Age 74) Mother (Age 94) Nephew Yariel (Age 46) Paternal Grandfather (Age 75) Paternal Grandmother (Age 61) Sister 1 Alive Sister 2 Alive Sister 3 (Age 60) Sister 4 Alive Sister 5 Alive Sister 6 Monet Alive Sister 7 (Age 55) Sister 8 Alive Son 1 Seng Alive Son 2 John Alive Social History Tobacco Use Types Packs/Day [...] week 01/13/2025 How often do you attend [facility] or scientology services? More than 4 times per year 01/13/2025 Do you belong to any clubs o r organizations such as mormon groups, unions, fraternal or athletic groups, or [...] Date Recorded PHQ-2 Total Score 1 09/21/2024 [facility] - Occupational Stress [...] place to sleep or slept in a snf (including now)? No 11/12/2023 PHQ-9 Answer Date [...] any time in the past 12 m [facility], were you homeless or living in a snf (including now)? No 01/13/2025 Social Connection and Isolation Panel Answer Date Recorded In a typical week, how many times do you talk on the phone with family, friends, or neighbors? More than three times a week 04/01/2025 How often do you get togethe r with friends or relatives? More than three times a week 04/01/2025 How often do you attend chur ch or scientology services? More than 4 times per year 04/01/2025 Do you belong to any clubs o r organizations such as mormon groups, unions, fraternal or athletic groups, or [...] any time in the past 12 m [facility], were you homeless or living in a snf (including now)? No 04/01/2025 [facility] Utilities Answer Date Recorded In the [...] on file Legal Sex Male 12:58 AM MATERIAL ATTENDANT Gender Identity Male 11/11/2018 10:31 AM CDT Sexual Orientation Straight 06/09/2019 5: 34 PM MATERIAL ATTENDANT Obstetrics History Last Filed Vital Signs Vital Sign Reading Time Taken Comments Blood Pressure 128/74 04/07/2025 6:57 PM CDT Pulse 61 04/07/2025 6:57 PM CDT Temperature 36.9 C (98.4 F) 04/07/2025 6:57 PM CDT Respiratory Rate 20 04/07/2025 6:57 PM CDT Oxygen Saturation 99% 04/07/2025 6:57 PM CDT Inhaled Oxygen Concentration - - Weight 97.5 kg (215 lb) 04/07/2025 6:57 PM CDT Height 175.3 cm (5' 9) 03/31/2025 9:39 PM CDT Body Mass Index 31.75 03/31/2025 9:39 PM CDT Plan of Treatment Health Maintenance Due Date Last Done Comments Dilated Eye Exam 1955 Foot Exam 1955 Hepatitis B Screening 1973 Zoster Vaccine (1 of 2) 1974 Well Visit 65+ 2020 Prostate Cancer Screening-PSA 04/16/2022 04/16/2020 Albumin Creatinine Ratio, Urine 02/28/2025 02/29/2024, 07/28/2021, 06/14/2019 Covid-19 Vaccine (5 - 2024-2 6 season) 2025 05/21/2021, 10/13/2020, 09/18/2020, Additional history exists Influenza Vaccine (#1) 2025 , 05/08/2023, 08/25/2022, Additional history exists Depression Screening 09/20/2025 09/20/2024, 07/20/2023, 06/07/2023, Additional history exists Hemoglobin A1C 09/28/2025 03/31/2025, 10/31, 09/21/2024, Additional history exists Lipid Panel 11/19/2025 11/19/2024, 01/31, 09/22/2022, Additional history exists eGFR 04/02/2026 04/02/2025, 03/04, 03/05/2025, Additional history exists Fall Risk Assessment 04/03/2026 04/03/2025, 01/09/20 DTaP/Tdap/Td Vaccine (2 - Td or Tdap) 02/22/2029 02/22/2019 Colon Cancer Screening-Colonoscopy 11/11/2034 11/11/2024, 07/23/2023 Pneumococcal vaccine 65+ Completed 03/16/2022 Colon Cancer Screening-CT Colonography Discontinued 11/11/2024, 07/23/2023 Colon Cancer Screening-DNA Stool Discontinued 11/12/19 25, 07/23/2023 Colon Cancer Screening-FIT Discontinued 11/11/2024, Colon Cancer Screening-Sigmoidoscopy Discontinued 11/11/2024, 07/23/2023 Abdominal Aortic Aneurysm (A AA) Screen Completed 02/28/2025, 01/12/2025, 12/09/2024, Additional history exists Hepatitis C Screening Completed 03/03/2025 , 07/25/2024, 08/21/2022 Medical Devices Implanted Type Area Legal Collector Device Identifier Shelf Expiration Date Model / Serial / Lot [employer] Implant Cardiac Defibrillator Dual Chamber Dr Chaparro Mri Compatible Ilivia Huy [id number] - [id number] - [id number] Implanted:Qty: 1 on 10/10/2023 by Pebbles Nelson MD at [facility] ICD Left: Chest Wall [employer] [id number] 08/01/2025 [id number] / [id number] / Medtronic Bladder Lead [id number] Lead Pelvis Medtronic [id number] / [id number] / Lead (Ra)-Setrox S S 53 Implanted:2013 by Pebbles Nelson MD (Quantity not on file) Lead Heart [employer] [id number] [id number] S S 53 / [id number] / Lead (Rv)-Linox Smart Sd [id number] Implanted:2013 by Pebbles Nelson MD (Quantity not on file) Lead Heart Biotronik [id number] LINOX SMART SD 65 / [id number] / Medtronic Inc Tyrx Absorbable Antibacterial Envelope-Large 3.3x2.9in [id number] - [id number] - [id number] Implanted:Qty: 1 on 10/10/2023 by Pebbles Nelson MD at [facility] Other - see comments Left: Chest Wall Medtronic Inc 07/03/2024 [id number] / [id number] / [id number] Description:Antibacterial en velope Conmed Lei Viabil 8mm X 6cm Longwire [id number] - [id number] - [id number] Implanted:Qty: 1 on 12/15/2022 by Fede Das MD at [facility] Stent N/A: Bile Duct Conmed Lei 12/11/2024 [id number] / [id number] / [employer] Lei 8.5 Fr Nasal Biliary Catheter [id number] - [id number] Implanted:Qty: 1 on 04/25/2023 by Zuri Mera MD at [facility] Tube N/A: Jejunum [employer] Lei 04/02/2025 [id number] 40 / / [id number] Medtronic Interstim Bladder Stimulator 3058-03/26/2020 Implanted:2019 (Quantity not on file) Pelvis Medtronic [id number] / [id number] / Description:MRI compatable Use pt remote (menu MRI active) [employer] Lei Wallflex 8mm 8fr 60mm Rapid Exchange Delivery System Stent [id number] - [id number] Implanted:Qty: 1 on 09/08/2022 by Fede Das MD at [facility] N/A: Bile Duct [employer] Lei 03/21/2024 [id number] / / [id number] Angio Dynamics Xcela Power Port 8fr [id number] - [id number] Implanted:Qty: 1 on 09/13/2022 at [facility] Angio Dynamics 04/19/2027 [id number] 270 / / [id number] [employer] Lei Supple Carmina-Guard [place] Processing 8x6cm Patch Cardiovascular [id number] - [id number] - [id number] Implanted:Qty: 1 on 04/11/2023 by Adrian Martinez MD at [facility] N/A: Superior Mesenteric Vein [employer] Lei [id number] 06/09/2027 [id number] / [id number] / [employer] Lei 8.5 Fr Nasal Biliary Catheter [id number] - [id number] Implanted:Qty: 1 on 05/01/2023 by Fede Das MD at [facility] Left: Nose [employer] Lei 12/18/2025 [id number] 40 / / [id number] Explanted Type Area Legal Collector Device Identifier Shelf Expiration Date Model / Serial / Lot Icd-Iforia 7 Elisa Implanted:Qty: 1 on 02/19/2014 by Pebbles Nelson MD Explanted:Qty: 1 on 10/10/2023 ICD Chest Biotronik [id number] IFSWEETIE 7 ELISA / [id number] / [employer] Lei 10fr 5cm Biliary Stent [id number] - [id number] Implanted:Qty: 1 on 08/22/2022 by Fede Das MD at [facility] Explanted:Qty: 1 on 09/08/2022 by Fede Das MD at [facility] N/A: Bile Duct [employer] Lei 01/27/2023 [id number] / / [id number] Procedures Procedure Name Priority Date/Time Associated Diagnosis Comments POCT GLUCOSE DEVICE Routine 04/03/2025 8:32 AM CDT POCT GLUCOSE DEVICE Routine 04/02/2025 8:44 PM CDT POCT GLUCOSE DEVICE Routine 04/02/2025 6:46 PM CDT POCT GLUCOSE DEVICE Routine 04/02/2025 5:32 PM CDT EGFR STAT 04/02/2025 2:27 PM CDT DIFFERENTIAL AUTO STAT 04/02/2025 2:27 PM CDT CBC WITH AUTO DIFFERENTIAL STAT 04/02/2025 2:27 PM CDT COMPREHENSIVE METABOLIC PANEL STAT 04/02/2025 2:27 PM CDT LACTATE STAT 04/02/2025 2:27 PM CDT PRO B-TYPE NATRIURETIC PEPTIDE STAT 04/02/2025 2:27 PM CDT ECG 12-LEAD STAT 04/02/2025 2:02 PM CDT XR CHEST 1 VIEW ED Urgent/IP Urgent 04/02/2025 1:58 PM CDT POCT GLUCOSE DEVICE Routine 04/02/2025 11:51 AM CDT POCT GLUCOSE DEVICE Routine 04/02/2025 8:48 AM CDT POCT GLUCOSE DEVICE Routine 04/02/2025 2:02 AM CDT POCT GLUCOSE DEVICE Routine 04/02/2025 12:46 AM CDT POCT GLUCOSE DEVICE Routine 04/01/2025 10:30 PM CDT POCT GLUCOSE DEVICE Routine 04/01/2025 7:30 PM CDT POCT GLUCOSE DEVICE Routine 04/01/2025 6:29 PM CDT POCT GLUCOSE DEVICE Routine 04/01/2025 4:41 PM CDT POCT GLUCOSE DEVICE Routine 04/01/2025 11:32 AM CDT POCT GLUCOSE DEVICE Routine 04/01/2025 7:52 AM CDT POCT GLUCOSE DEVICE Routine 03/31/2025 10:[address] LUMBAR SPINE WO CONTRAST ED 03/31/2025 7:[address] HEAD WO CONTRAST ED 03/31/2025 7:08 PM CDT XR CHEST PA LATERAL 2 VIEWS ED 03/31/2025 5:49 PM CDT URINALYSIS AND REFLEX TO MICROSCOPIC AND CULTURE STAT 03/31/2025 5:22 PM CDT HEMOGLOBIN A1C STAT 03/31/2025 3:04 PM CDT EGFR STAT 03/31/2025 3:04 PM CDT DIFFERENTIAL AUTO STAT 03/31/2025 3:04 PM CDT COMPREHENSIVE METABOLIC PANEL STAT 03/31/2025 3:04 PM CDT CBC WITH AUTO DIFFERENTIAL STAT 03/31/2025 3:04 PM CDT INFLUENZA A/B, RSV, AND COVID-19 PCR STAT 03/31/2025 3:04 PM CDT POCT GLUCOSE DEVICE Routine 03/05/2025 12:14 PM CDT POCT GLUCOSE DEVICE Routine 03/05/2025 8:54 AM CDT US LEONOR IP Routine 03/05/2025 5:37 AM CDT EGFR Routine 03/05/2025 3:59 AM CDT DIFFERENTIAL AUTO Routine 03/05/2025 3:59 AM CDT COMPREHENSIVE METABOLIC PANEL Routine 03/05/2025 3:59 AM CDT CBC WITH AUTO DIFFERENTIAL Routine 03/05/2025 3:59 AM CDT POCT GLUCOSE DEVICE Routine 03/04/2025 8:41 PM CDT POCT GLUCOSE DEVICE Routine 03/04/2025 4:42 PM CDT POCT GLUCOSE DEVICE Routine 03/04/2025 12:22 PM CDT POCT GLUCOSE DEVICE Routine 03/04/2025 7:57 AM CDT EGFR Routine 03/04/2025 5:05 AM CDT DIFFERENTIAL AUTO Routine 03/04/2025 5:05 AM CDT COMPREHENSIVE METABOLIC PANEL Routine 03/04/2025 5:05 AM CDT CBC WITH AUTO DIFFERENTIAL Routine 03/04/2025 5:05 AM CDT POCT GLUCOSE DEVICE Routine 03/03/2025 8:51 PM CDT POCT GLUCOSE DEVICE Routine 03/03/2025 5:12 PM CDT HISTOPLASMA ANTIGEN Routine 03/03/2025 3:18 PM CDT Q FEVER AB W REFLEX TO IMMUNOFLUORESCENCE Routine 03/03/2025 3:04 PM CDT HEPATITIS PANEL, ACUTE Routine 3:04 PM CDT CYTOMEGALOVIRUS (CMV) DNA, QUANT GEN LAB Routine 03/03/2025 3:04 PM CDT HISTOPLASMA ANTIBODY STAT 03/03/2025 3:04 PM CDT BLOOD CULTURE STAT 03/03/2025 3:04 PM CDT CINDY-ZAMAN VIRUS (EBV) DNA QUANTITATIVE STAT 03/03/2025 3:03 PM CDT EHRLICHIA AND ANAPLASMA PCR STAT 03/03/2025 3:03 PM CDT BARTONELLA ANTIBODY PANEL STAT 03/03/2025 3:00 PM CDT CINDY-ZAMAN VIRUS VCA ANTIBODY PANEL STAT 03/03/2025 3:00 PM CDT HIV 1/2 ANTIBODY PLUS P24 ANTIGEN Routine 03/03/2025 3:00 PM CDT BLASTOMYCES ANTIBODY, EIA, S Routine 03/03/2025 3:00 PM CDT CRYPTOCOCCAL ANTIGEN, SERUM STAT 03/03/2025 3:00 PM CDT RICKETTSIA RICKETTSII ANTIBODY STAT 03/03/2025 3:00 PM CDT BLOOD CULTURE STAT 03/03/2025 3:00 PM CDT TRANSTHORACIC ECHO (TTE) COMPLETE W DOPPLER/CF W CONTRAST Routine 03/03/2025 2:[address] HEAD WO CONTRAST ED Urgent/IP Urgent 03/03/2025 12:43 PM CDT POCT GLUCOSE DEVICE Routine 03/03/2025 12:01 PM CDT US VEIN DUPLEX LOWER EXTREMITY BILATERAL COMPLETE ED Urgent/IP Urgent 03/03/2025 11:33 AM CDT POCT GLUCOSE DEVICE Routine 03/03/2025 8:58 AM CDT EGFR Routine 03/03/2025 2:50 AM CDT DIFFERENTIAL AUTO Routine 03/03/2025 2:50 AM CDT COMPREHENSIVE METABOLIC PANEL Routine 03/03/2025 2:50 AM CDT CBC WITH AUTO DIFFERENTIAL Routine 03/03/2025 2:50 AM CDT POCT GLUCOSE DEVICE Routine 03/02/2025 8:51 PM CDT POCT GLUCOSE DEVICE Routine 03/02/2025 7:12 PM CDT POCT GLUCOSE DEVICE Routine 03/02/2025 5:08 PM CDT POCT GLUCOSE DEVICE Routine 03/02/2025 11:21 AM CDT POCT GLUCOSE DEVICE Routine 03/02/2025 7:40 AM CDT EGFR Routine 03/02/2025 3:38 AM CDT DIFFERENTIAL AUTO Routine 03/02/2025 3:38 AM CDT COMPREHENSIVE METABOLIC PANEL Routine 03/02/2025 3:38 AM CDT CBC WITH AUTO DIFFERENTIAL Routine 03/02/2025 3:38 AM CDT POCT GLUCOSE DEVICE Routine 03/01/2025 9:04 PM CDT POCT GLUCOSE DEVICE Routine 03/01/2025 5:50 PM CDT POCT GLUCOSE DEVICE Routine 03/01/2025 11:36 AM CDT MRSA ONLY (STAPHYLOCOCCUS AUREUS) PCR Routine 03/01/2025 10:10 AM CDT STOOL CULTURE Routine 03/01/2025 10:10 AM CDT NOROVIRUS PCR Routine 03/01/2025 10:10 AM CDT C. DIFFICILE TESTING Routine 03/01/2025 10:10 AM CDT POCT GLUCOSE DEVICE Routine 03/01/2025 8:13 AM CDT POCT GLUCOSE DEVICE Routine 03/01/2025 7:41 AM CDT US RUQ IP Routine 03/01/2025 7:35 AM CDT EGFR Routine 03/01/2025 5:59 AM CDT DIFFERENTIAL AUTO Routine 03/01/2025 5:59 AM CDT ERYTHROCYTE SEDIMENTATION RATE Routine 03/01/2025 5:59 AM CDT CRP (ACUTE PHASE) Routine 03/01/2025 5:59 AM CDT COMPREHENSIVE METABOLIC PANEL Routine 03/01/2025 5:59 AM CDT CBC WITH AUTO DIFFERENTIAL Routine 03/01/2025 5:59 AM CDT POCT GLUCOSE DEVICE Routine 03/01/2025 4:20 AM CDT XR CHEST PA LATERAL 2 VIEWS ED 03/01/2025 3:01 AM CDT BLOOD CULTURE STAT 03/01/2025 2:43 AM CDT BLOOD CULTURE STAT 03/01/2025 2:43 AM CDT MONONUCLEOSIS SCREEN STAT 03/01/2025 1:09 AM CDT POCT GLUCOSE DEVICE Routine 03/01/2025 12:[address] ABDOMEN PELVIS W CONTRAST ED 02/28/2025 11:41 PM CDT EGFR STAT 02/28/2025 10:21 PM CDT DIFFERENTIAL AUTO STAT 02/28/2025 10:21 PM CDT CBC WITH AUTO DIFFERENTIAL STAT 02/28/2025 10:21 PM CDT COMPREHENSIVE METABOLIC PANEL STAT 02/28/2025 10:21 PM CDT POCT GLUCOSE DEVICE Routine 02/28/2025 9:56 PM CDT URINALYSIS, MICROSCOPIC ONLY STAT 02/28/2025 8:27 PM CDT RESPIRATORY PATHOGEN PANEL Timed 02/28/2025 8:27 PM CDT URINALYSIS AND REFLEX TO MICROSCOPIC AND CULTURE STAT 02/28/2025 8:27 PM CDT INFLUENZA A/B, RSV, AND COVID-19 PCR STAT 02/28/2025 8:27 PM CDT SURGICAL PATHOLOGY Routine 02/23/2025 12:00 AM CDT Neoplasm of skin CTA ABDOMEN Schedule RITESH, Read Routine (Patient [...] without long-term current use of insulin (HCC) LIPID PANEL STAT 11/19/2024 1:05 PM CDT COLONOSCOPY 11/11/2024 11:01 AM CDT ALBUMIN CREATININE RATIO, URINE Routine 02/29/2024 8:27 AM CDT Type 2 diabetes mellitus with microalbuminuria, with long-term current use of insulin (HCC) PSA SCREEN Routine 04/16/2020 7:01 AM CDT Low testosterone in male from Last 3 Months or Most Recently Relevant to Health Maintenance Results * POCT glucose (04/03/2025 8:32 AM CDT) Glucose, POC 152 70 - 199 mg/dL Comment: Interpretive Data Glucose is assumed to be non-fasting. Fasting Glucose reference ranges are: 0 - 150 years: 70 mg/dL - 99 mg/dL Current interpretive data was last revised on 2014. POC Device Number [id number] 1 DAVID PEOPLES Blood 04/03/2025 8:32 AM CDT 04/03/2025 8:32 AM CDT us Jenaro Villalobos MD LAB POCT ORDERABLES - DEVICE Final Result Performing Organization Address [facility] de Phone Number [facility] [address] [address] [facility] [address] [place], [place] [id number] * (ABNORMAL) POCT glucose (04/02/2025 8:44 PM CDT) Glucose, POC 293(H) 70 - 199 mg/dL Comment: Interpretive Data Glucose is assumed to be non-fasting. Fasting Glucose reference ranges are: 0 - 150 years: 70 mg/dL - 99 mg/dL Current interpretive data was last revised on 2014. POC Device Number [id number] DAVID PEOPLES Blood 04/02/2025 8:44 PM CDT 04/02/2025 8:44 PM CDT us Eugenie Garibay MD LAB POCT ORDERABLES - DEVICE Final Result Performing Organization Address [facility] Co de Phone Number [facility] [address] [facility] [employer] [place], [place] [phone] * POCT glucose (04/02/2025 6:46 PM CDT) Glucose, POC 187 70 - 199 mg/dL Comment: Interpretive Data Glucose is assumed to be non-fasting. Fasting Glucose reference ranges are: 0 - 150 years: 70 mg/dL - 99 mg/dL Current interpretive data was last revised on 2014. POC Device Number [id number] DAVID SWEENEY Blood 04/02/2025 6:46 PM CDT 04/02/2025 6:46 PM CDT us Eugenie Garibay MD LAB POCT ORDERABLES - DEVICE Final Result Performing Organization Address [facility] Co de Phone Number [facility] [id number] [facility] [address] [place], [place] [id number] * POCT glucose (04/02/2025 5:32 PM CDT) [facility] Glucose, POC 141 70 - 199 mg/dL Comment: Interpretive Data Glucose is assumed to be non-fasting. Fasting Glucose reference ranges are: 0 - 150 years: 70 mg/dL - 99 mg/dL Current interpretive data was last revised on 2014. POC Device Number [id number] DAVID SWEENEY Blood 04/02/2025 5:32 PM CDT 04/02/2025 5:32 PM CDT us Eugenie Garibay MD LAB POCT ORDERABLES - DEVICE Final Result Performing Organization Address [facility] de Phone Number [facility] [address] [facility] [facility] [address] [place], [place] [phone] * Lactate (04/02/2025 2:27 PM CDT) [facility] Lactate 1.5 0.7 - 2.0 mmol/L Blood 04/02/2025 2:27 PM CDT 04/02/2025 2:31 PM CDT Radha Thompson NP LAB BLOOD ORDERABLES Final Result Performing Organization Address [facility] Co de Phone Number DAVID [facility] [address] [facility] [place] [address] * eGFR (04/02/2025 2:27 PM CDT) [facility] eGFR >90 >=60 mL/min/1. 73 m2 Comment: [...] interpretive data was last reviewed 2021. Blood 04/02/2025 2:27 PM CDT 04/02/2025 2:31 PM CDT us Radha Thompson NP LAB BLOOD ORDERABLES Final Result [facility] [address] [facility]. Department [place] [address] * (ABNORMAL) Differential, auto (04/02/2025 2:27 PM CDT) Pathologist [facility] Neutrophil abs 3.45 1.50 - 6.50 K/cumm Imm gran abs 0.02 0.00 - 0.10 K/cumm [facility] Lymphocyte abs 0.76(L) 0.80 - 3.30 K/cumm [facility] Monocyte abs 0.45 0.20 - 0.80 K/cumm [facility] Eosinophil abs 0.16 0.00 - 0.50 K/cumm [facility] Basophil abs 0.04 0.00 - 0.10 K/cumm [facility] Neutrophil pct 70.7 % [facility] Comment: Interpretive Data [...] was last revised on 2017. Lymphocyte pct 15.6 % DAVID PEOPLES Comment: Interpretive Data Percent cell count reference ranges are not reported, since discordance with absolute values may lead to misinterpretation of CBC data. Current Interpretive Data was last revised on 2017. Monocyte pct 9.2 % DAVID PEOPLES Comment: Interpretive Data Percent cell count reference ranges are not reported, since discordance with absolute values may lead to misinterpretation of CBC data. Current Interpretive Data was last revised on 2017. Eosinophil pct 3.3 % DAVID PEOPLES Comment: Interpretive Data Percent cell count reference ranges are not reported, since discordance with absolute values may lead to misinterpretation of CBC data. Current Interpretive Data was last revised on 2017. Basophil pct 0.8 % DAVID PEOPLES Comment: Interpretive Data Percent cell count reference ranges are not reported, since discordance with absolute values may lead to misinterpretation of CBC data. Current Interpretive Data was last revised on 2017. Blood 04/02/2025 2:27 PM CDT 04/02/2025 2:31 PM CDT Radha Thompson NP LAB BLOOD ORDERABLES Final Result [facility] [address] [facility]. Department [place] [address] * Pro B-type natriuretic peptide (04/02/2025 2:27 PM CDT) NT-proBNP 82 <=300 pg/mL Comment: Interpretive Comments: A. Dyspnea in Acute Care Setting All Ages: < 300 pg/ml, acute heart failure unlikely. < 50 yrs: 300 - 450 pg/ml, further investigation warranted. > 450 pg/ml, acute heart failure likely. 50 - 74 yrs: 300 - 900 pg/ml, further investigation warranted. > 900 pg/ml, acute heart failure likely . > or = 75 yrs: 450 - 1800 pg/ml, further investigation warranted. > 1800 pg/ml, acute heart failure likely. B. Non-acute Setting < 75 yrs < 125 pg/ml, rules out heart failure. > or = 125 pg/ml, further investigation warranted. > or = 75 yrs < 450 pg/ml, rules out heart failure. > or = 450 pg/ml, further investigation warranted. - Knowledge of each individual patient's NT-proBNP range may be more useful than using similar cut-points for every patient. Please note that marked elevations in NT-proBNP levels may be observed in state other than Left Ventricular Congestive Failure, including: acute coronary syndromes, right heart strain/failure (including pulmonary embolism and cor pulmonale), critical illness, renal failure, as well as advanced age. - References: 1. Rush ORTEAG et.al. Eur Heart J. 2006:27:330-337. 2. Constantino RW, Naty HO. J. AM Anthony Cardiol: Cardiovasc Imag. 2009;2: 216- 225. Interpretive Data Last Revised Date: 2018. Blood 04/02/2025 2:27 PM CDT 04/02/2025 2:31 PM CDT Radha Thompson NP LAB BLOOD ORDERABLES Final Result [facility] [address] [facility]. Department [place] [address] * (ABNORMAL) CBC with auto differential (04/02/2025 2:27 PM CDT) Pathologist [facility] WBC 4.88 3.80 - 9.90 K/cumm Hgb 12.2(L) 13.0 - 17.5 g/dL DAVID W Hct 37.1(L) 38.9 - 50.3 % DAVID [facility] Plt 170 150 - 400 K/cumm DAVID [facility] MPV 10.3 9.1 - 12.3 fL DAVID [facility] RBC 4.54 4.30 - 5.80 M/cumm [facility] MCV 81.7 81.3 - 96.4 fL [facility] MCH 26.9(L) 27.1 - 33.3 pg [facility] MCHC 32.9 32.3 - 35.7 g/dL [facility] RDW CV 16.2(H) 11.1 - 14.9 % [facility] RDW SD 48.1 35.7 - 48.1 fL [facility] NRBC abs 0.00 0.00 - 0.01 K/cumm [facility] Blood 04/02/2025 2:27 PM CDT 04/02/2025 2:31 PM CDT Radha Thompson NP LAB BLOOD ORDERABLES Final Result [facility] [address] [facility] Department [place] [address] * (ABNORMAL) Comprehensive metabolic panel (04/02/2025 2:27 PM CDT) Sodium 133(L) 135 - 145 mmol/L Potassium, pl 3.7 3.3 - 4.9 mmol/L [facility] Chloride 96(L) 97 - 110 mmol/L [facility] CO2 26 22 - 32 mmol/L [facility] Anion gap 11 2 - 15 mmol/L [facility] BUN 18 6 - 25 mg/dL [facility] Creatinine 0.70(L) 0.80 - 1.30 mg/dL [facility] Glucose 198 70 - 199 mg/dL [facility] Comment: Interpretive Data Fasting glucose [...] 2022. Calcium 8.6 8.5 - 10.3 mg/dL [facility] Bilirubin, total 0.3 0.1 - 1.2 mg/dL [facility] Protein, pl 6.1(L) 6.5 - 8.5 g/dL [facility] Albumin 3.5 3.5 - 5.0 g/dL [facility] Alk phos 646(H) 40 - 130 Units/L [facility] ALT 52 7 - 55 Units/L [facility] AST 28 10 - 50 Units/L [facility] Blood 04/02/2025 2:27 PM CDT 04/02/2025 2:31 PM CDT Radha Thompson NP LAB BLOOD ORDERABLES Final Result Performing Organization Address City/[facility]/ZIP Co de Phone Number [facility] [address] [facility] Department [place] [address] * ECG 12 lead (04/02/2025 2:02 PM CDT) 04/02/2025 2:02 PM CDT Narrative [facility] - 04/03/2025 4:18 PM CDT Vent Rate: 60 bpm RR Interval: 997 msec NE Interval: 273 msec QRS Duration: 169 msec QT Interval: 475 msec QTC Interval: 475 msec P-R-T [place]: 89 - 234 - 179 degrees IMPRESSION: ELECTRONIC ATRIAL PACEMAKER RIGHT AXIS DEVIATION RIGHT BUNDLE BRANCH BLOCK ABNORMAL ECG Electronically Signed By: Gautam Hope MD Radha Thompson GAS CUTTER ECG ORDERABLES Tete l Result Performing Organization Address City/[facility]/ZIP Co de Phone Number [facility] Stance [facility] * XR Chest 1 View (04/02/2025 1:58 PM CDT) Anatomical Region Laterality Modality Body, Chest N/A Computed Radiogr aphy 04/02/2025 2:06 PM CDT Impressions 04/02/2025 2:06 PM CDT Comparison is made to 03/31/2025. Right internal jugular central catheter with tip projecting over the right atrium. Unchanged left subclavian approach pacemaker with leads projecting over the right atrium and ventricle. Unchanged enlargement of the cardiac silhouette. No consolidation, pleural effusion, or pneumothorax. The radiology attending physician has personally reviewed this study, and had reviewed and/or edited this written report and agrees with it. Electronically signed by: Shabbir Jett M.D. Narrative 04/02/2025 2:06 PM CDT EXAMINATION: 1 view chest radiograph Procedure Note Shabbir Jett MD - 04/02/2025 EXAMINATION: 1 view chest radiograph IMPRESSION: Comparison is made to 03/31/2025. Right internal jugular central catheter with tip projecting over the right atrium. Unchanged left subclavian approach pacemaker with leads projecting over the right atrium and ventricle. Unchanged enlargement of the cardiac silhouette. No consolidation, pleural effusion, or pneumothorax. The radiology attending physician has personally reviewed this study, and had reviewed and/or edited this written report and agrees with it. Electronically signed by: Shabbir Jett M.D. us Radha Thompson NP IMG XR PROCEDURES Fi nal Result * (ABNORMAL) POCT glucose (04/02/2025 11:51 AM CDT) [facility] Glucose, POC 248(H) 70 - 199 mg/dL Comment: Interpretive Data Glucose is assumed to be non-fasting. Fasting Glucose reference ranges are: 0 - 150 years: 70 mg/dL - 99 mg/dL Current interpretive data was last revised on 2014. POC Device Number [id number] [facility] Blood 04/02/2025 11:5 1 AM CDT 04/02/2025 11:51 AM CDT us Eugenie Garibay MD LAB POCT ORDERABLES - DEVICE Final Result [facility] [address] [facility] [place] [address] * (ABNORMAL) POCT glucose (04/02/2025 8:48 AM CDT) Glucose, POC 221(H) 70 - 199 mg/dL Comment: Interpretive Data Glucose is assumed to be non-fasting. Fasting Glucose reference ranges are: 0 - 150 years: 70 mg/dL - 99 mg/dL Current interpretive data was last revised on 2014. POC Device Number [id number] DAVID PEOPLES Blood 04/02/2025 8:48 AM CDT 04/02/2025 8:48 AM CDT us Eugenie Garibay MD LAB POCT ORDERABLES - DEVICE Final Result Performing Organization Address [facility] Co de Phone Number [facility] [address] [facility] [place] [address] * POCT glucose (04/02/2025 2:02 AM CDT) Glucose, POC 158 70 - 199 mg/dL Comment: Interpretive Data Glucose is assumed to be non-fasting. Fasting Glucose reference ranges are: 0 - 150 years: 70 mg/dL - 99 mg/dL Current interpretive data was last revised on 2014. POC Device Number [id number] DAVID PEOPLES Blood 04/02/2025 2:02 AM CDT 04/02/2025 2:02 AM CDT us Eugenie Garibay MD LAB POCT ORDERABLES - DEVICE Final Result Performing Organization Address [facility] Co de Phone Number [facility] [address] [facility] [place] [address] * POCT glucose (04/02/2025 12:46 AM CDT) Glucose, POC 138 70 - 199 mg/dL Comment: Interpretive Data Glucose is assumed to be non-fasting. Fasting Glucose reference ranges are: 0 - 150 years: 70 mg/dL - 99 mg/dL Current interpretive data was last revised on 2014. POC Device Number [id number] DAVID PEOPLES Blood 04/02/2025 12:4 6 AM CDT 04/02/2025 12:46 AM CDT Eugenie Garibay MD LAB POCT ORDERABLES - DEVICE Final Result Performing Organization Address [facility] Phone Number [facility] [address] [facility] [place] [address] * POCT glucose (04/01/2025 10:30 PM CDT) Glucose, POC 133 70 - 199 mg/dL Comment: Interpretive Data Glucose is assumed to be non-fasting. Fasting Glucose reference ranges are: 0 - 150 years: 70 mg/dL - 99 mg/dL Current interpretive data was last revised on 2014. POC Device Number [id number] 1 DAVID PEOPLES Blood 04/01/2025 10:3 0 PM CDT 04/01/2025 10:30 PM CDT Eugenie Garibay MD LAB POCT ORDERABLES - DEVICE Final Result Performing Organization Address [facility] de Phone Number [facility] [address] [place] [address] * POCT glucose (04/01/2025 7:30 PM CDT) Glucose, POC 183 70 - 199 mg/dL Comment: Interpretive Data Glucose is assumed to be non-fasting. Fasting Glucose reference ranges are: 0 - 150 years: 70 mg/dL - 99 mg/dL Current interpretive data was last revised on 2014. POC Device Number [id number] CERNER PARAMWCH Blood 04/01/2025 7:30 PM CDT 04/01/2025 7:30 PM CDT Eugenie Garibay MD LAB POCT ORDERABLES - DEVICE Final Result Performing Organization Address [facility] de Phone Number DAVID VIRGENCH [id number] [facility]. [facility] [address] [place], [place] [id number] * (ABNORMAL) POCT glucose (04/01/2025 6:29 PM CDT) Glucose, POC 405(H) 70 - 199 mg/dL Comment: Interpretive Data Glucose is assumed to be non-fasting. Fasting Glucose reference ranges are: 0 - 150 years: 70 mg/dL - 99 mg/dL Current interpretive data was last revised on 2014. POC Device Number [id number] DAVID PEOPLES Blood 04/01/2025 6:29 PM CDT 04/01/2025 6:29 PM CDT us Eugenie Garibay MD LAB POCT ORDERABLES - DEVICE Final Result Performing Organization Address [facility] Phone Number DAVID VIRGENWCH [phone] [facility]. [facility] [place] [address] * (ABNORMAL) POCT glucose (04/01/2025 4:41 PM CDT) Glucose, POC 313(H) 70 - 199 mg/dL Comment: Interpretive Data Glucose is assumed to be non-fasting. Fasting Glucose reference ranges are: 0 - 150 years: 70 mg/dL - 99 mg/dL Current interpretive data was last revised on 2014. POC Device Number [id number] DAVID VIRGENWCH Blood 04/01/2025 4:41 PM CDT 04/01/2025 4:41 PM CDT us Eugenie Garibay MD LAB POCT ORDERABLES - DEVICE Final Result Performing Organization Address [facility] Co de Phone Number DAVID BJWCH [phone] [facility]. [facility] [place] [address] * POCT glucose (04/01/2025 11:32 AM CDT) Glucose, POC 164 70 - 199 mg/dL Comment: Interpretive Data Glucose is assumed to be non-fasting. Fasting Glucose reference ranges are: 0 - 150 years: 70 mg/dL - 99 mg/dL Current interpretive data was last revised on 2014. POC Device Number [id number] DAVID PEOPLES Blood 04/01/2025 11:3 2 AM CDT 04/01/2025 11:32 AM CDT us Eugenie Garibay MD LAB POCT ORDERABLES - DEVICE Final Result Performing Organization Address [facility] de Phone Number [facility] [id number] [facility] [address] [place], [place] [id number] * POCT glucose (04/01/2025 7:52 AM CDT) Glucose, POC 187 70 - 199 mg/dL Comment: Interpretive Data Glucose is assumed to be non-fasting. Fasting Glucose reference ranges are: 0 - 150 years: 70 mg/dL - 99 mg/dL Current interpretive data was last revised on 2014. POC Device Number [id number] DAVID PEOPLES Blood 04/01/2025 7:52 AM CDT 04/01/2025 7:52 AM CDT us Eugenie Garibay MD LAB POCT ORDERABLES - DEVICE Final Result Performing Organization Address [facility] de Phone Number [facility] BJWCH [address] [facility] [place] [address] * (ABNORMAL) POCT glucose (03/31/2025 10:21 PM CDT) Glucose, POC 234(H) 70 - 199 mg/dL Comment: Interpretive Data Glucose is assumed to be non-fasting. Fasting Glucose reference ranges are: 0 - 150 years: 70 mg/dL - 99 mg/dL Current interpretive data was last revised on 2014. POC Device Number [id number] DAVID BJWCH Blood 03/31/2025 10:2 1 PM CDT 03/31/2025 10:21 PM CDT Neeru Funk MD LAB POCT ORDERABLES - DEVICE Final Result Performing Organization Address City/State/ZIP Co va Phone Number DAVID VIRGENWCH [id number] [facility]. [place] [address] * CT Lumbar Spine WO Contrast (03/31/2025 7:08 PM CDT) Anatomical Region Laterality Modality Spine N/A Computed Tomogra phy 04/01/2025 10:1 4 AM CDT Impressions 04/01/2025 10:16 AM CDT 1. No acute intracranial abnormality. 2. 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 3. Degenerative changes in the lumbar spine as detailed without high-grade central canal stenosis or neural foramen narrowing. Dictated by: Helga Zamudio M.D. The radiology attending physician has personally reviewed this study, and had reviewed and/or edited this written report and agrees with it. Electronically signed by: Jay Alexis MD Narrative 04/01/2025 10:16 AM CDT EXAMINATION: CT head without contrast. CT of the lumbar spine without contrast HISTORY: Headache, increasing frequency or severity; history of neurofibroma of left temporal region, worsening headache, low back pain, bilateral leg weakness and intermittent numbness, reported history of neurofibroma near spine. TECHNIQUE: CT of the head was performed with images acquired from skull base to vertex without intravenous contrast. CT of the lumbar spine was performed according to the standard protocol without intravenous contrast. 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 There is no acute intracranial hemorrhage. Ventricles are of normal size and morphology. Bilateral choroid plexus calcified xanthogranulomas. No mass effect or midline shift is present. The lucas-white matter differentiation is normal. The visualized portions of the orbits are normal. The visualized portions of the mastoids are normal. The left maxillary sinus is hypoplastic as compared to the right. No fractures are identified. LUMBAR SPINE: Normal segmentation, mild levoscoliosis. Partial anterior fusion at right SI joint. 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 There is no acute fracture. The vertebral bodies are normal in height without compression fractures. The intervertebral disk heights are normal. There is no soft tissue abnormality. Partially imaged postsurgical changes of Whipple's with intrahepatic pneumobilia similar to the CT scan from 02/28/2025] nonobstructing bilateral renal calculi. Subcentimeter retroperitoneal and rmesentric lymph nodes similar to prior CT abdomen. L1-L2: Mild diffuse disc bulge. There is no facet arthropathy. There is no neuroforaminal stenosis. There is no spinal canal stenosis. L2-L3: Mild diffuse disc bulge and ligamentum flavum thickening There is mild facet arthropathy. There is no neuroforaminal stenosis. There is no spinal canal stenosis. L3-L4: Mild diffuse disc bulge with ligamentum flavum thickening There is mild facet arthropathy. There is no neuroforaminal stenosis. There is no spinal canal stenosis. L4-L5: Diffuse disc bulge with ligamentum flavum thickening There is mild facet arthropathy. There is mild bilateral neuroforaminal stenosis. There is mild spinal canal stenosis. L5-S1: Diffuse disc bulge and ligamentum flavum thickening There is mild facet arthropathy. There is mild right and moderate left neuroforaminal stenosis. There is no spinal canal stenosis. Procedure Note Jay Aleixs MD - 04/01/2025 EXAMINATION: CT head without contrast. CT of the lumbar spine without contrast HISTORY: Headache, increasing frequency or severity; history of neurofibroma of left temporal region, worsening headache, low back pain, bilateral leg weakness and intermittent numbness, reported history of neurofibroma near spine. TECHNIQUE: CT of the head was performed with images acquired from skull base to vertex without intravenous contrast. CT of the lumbar spine was performed according to the standard protocol without intravenous contrast. 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 There is no acute intracranial hemorrhage. Ventricles are of normal size and morphology. Bilateral choroid plexus calcified xanthogranulomas. No mass effect or midline shift is present. The lucas-white matter differentiation is normal. The visualized portions of the orbits are normal. The visualized portions of the mastoids are normal. The left maxillary sinus is hypoplastic as compared to the right. No fractures are identified. LUMBAR SPINE: Normal segmentation, mild levoscoliosis. Partial anterior fusion at right SI joint. 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 There is no acute fracture. The vertebral bodies are normal in height without compression fractures. The intervertebral disk heights are normal. There is no soft tissue abnormality. Partially imaged postsurgical changes of Whipple's with intrahepatic pneumobilia similar to the CT scan from 02/28/2025] nonobstructing bilateral renal calculi. Subcentimeter retroperitoneal and rmesentric lymph nodes similar to prior CT abdomen. L1-L2: Mild diffuse disc bulge. There is no facet arthropathy. There is no neuroforaminal stenosis. There is no spinal canal stenosis. L2-L3: Mild diffuse disc bulge and ligamentum flavum thickening There is mild facet arthropathy. There is no neuroforaminal stenosis. There is no spinal canal stenosis. L3-L4: Mild diffuse disc bulge with ligamentum flavum thickening There is mild facet arthropathy. There is no neuroforaminal stenosis. There is no spinal canal stenosis. L4-L5: Diffuse disc bulge with ligamentum flavum thickening There is mild facet arthropathy. There is mild bilateral neuroforaminal stenosis. There is mild spinal canal stenosis. L5-S1: Diffuse disc bulge and ligamentum flavum thickening There is mild facet arthropathy. There is mild right and moderate left neuroforaminal stenosis. There is no spinal canal stenosis. IMPRESSION: 1. No acute intracranial abnormality. 2. 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 3. Degenerative changes in the lumbar spine as detailed without high-grade central canal stenosis or neural foramen narrowing. Dictated by: Helga Zamudio M.D. The radiology attending physician has personally reviewed this study, and had reviewed and/or edited this written report and agrees with it. Electronically signed by: Jay Alexis MD us Ivanna WAYNE IMLai CT PROCEDURES Final Res ult * CT Head WO Contrast (03/31/2025 7:08 PM CDT) Anatomical Region Laterality Modality Head and Neck N/A Computed Tomogra phy 04/01/2025 10:1 4 AM CDT Impressions 04/01/2025 10:16 AM CDT 1. No acute intracranial abnormality. 2. 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 3. Degenerative changes in the lumbar spine as detailed without high-grade central canal stenosis or neural foramen narrowing. Dictated by: Helga Zamudio M.D. The radiology attending physician has personally reviewed this study, and had reviewed and/or edited this written report and agrees with it. Electronically signed by: Jay Alexis MD Narrative 04/01/2025 10:16 AM CDT EXAMINATION: CT head without contrast. CT of the lumbar spine without contrast HISTORY: Headache, increasing frequency or severity; history of neurofibroma of left temporal region, worsening headache, low back pain, bilateral leg weakness and intermittent numbness, reported history of neurofibroma near spine. TECHNIQUE: CT of the head was performed with images acquired from skull base to vertex without intravenous contrast. CT of the lumbar spine was performed according to the standard protocol without intravenous contrast. 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 There is no acute intracranial hemorrhage. Ventricles are of normal size and morphology. Bilateral choroid plexus calcified xanthogranulomas. No mass effect or midline shift is present. The lucas-white matter differentiation is normal. The visualized portions of the orbits are normal. The visualized portions of the mastoids are normal. The left maxillary sinus is hypoplastic as compared to the right. No fractures are identified. LUMBAR SPINE: Normal segmentation, mild levoscoliosis. Partial anterior fusion at right SI joint. 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 There is no acute fracture. The vertebral bodies are normal in height without compression fractures. The intervertebral disk heights are normal. There is no soft tissue abnormality. Partially imaged postsurgical changes of Whipple's with intrahepatic pneumobilia similar to the CT scan from 02/28/2025] nonobstructing bilateral renal calculi. Subcentimeter retroperitoneal and rmesentric lymph nodes similar to prior CT abdomen. L1-L2: Mild diffuse disc bulge. There is no facet arthropathy. There is no neuroforaminal stenosis. There is no spinal canal stenosis. L2-L3: Mild diffuse disc bulge and ligamentum flavum thickening There is mild facet arthropathy. There is no neuroforaminal stenosis. There is no spinal canal stenosis. L3-L4: Mild diffuse disc bulge with ligamentum flavum thickening There is mild facet arthropathy. There is no neuroforaminal stenosis. There is no spinal canal stenosis. L4-L5: Diffuse disc bulge with ligamentum flavum thickening There is mild facet arthropathy. There is mild bilateral neuroforaminal stenosis. There is mild spinal canal stenosis. L5-S1: Diffuse disc bulge and ligamentum flavum thickening There is mild facet arthropathy. There is mild right and moderate left neuroforaminal stenosis. There is no spinal canal stenosis. Procedure Note Jay Alexis MD - 04/01/2025 EXAMINATION: CT head without contrast. CT of the lumbar spine without contrast HISTORY: Headache, increasing frequency or severity; history of neurofibroma of left temporal region, worsening headache, low back pain, bilateral leg weakness and intermittent numbness, reported history of neurofibroma near spine. TECHNIQUE: CT of the head was performed with images acquired from skull base to vertex without intravenous contrast. CT of the lumbar spine was performed according to the standard protocol without intravenous contrast. 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 There is no acute intracranial hemorrhage. Ventricles are of normal size and morphology. Bilateral choroid plexus calcified xanthogranulomas. No mass effect or midline shift is present. The lucas-white matter differentiation is normal. The visualized portions of the orbits are normal. The visualized portions of the mastoids are normal. The left maxillary sinus is hypoplastic as compared to the right. No fractures are identified. LUMBAR SPINE: Normal segmentation, mild levoscoliosis. Partial anterior fusion at right SI joint. 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 There is no acute fracture. The vertebral bodies are normal in height without compression fractures. The intervertebral disk heights are normal. There is no soft tissue abnormality. Partially imaged postsurgical changes of Whipple's with intrahepatic pneumobilia similar to the CT scan from 02/28/2025] nonobstructing bilateral renal calculi. Subcentimeter retroperitoneal and rmesentric lymph nodes similar to prior CT abdomen. L1-L2: Mild diffuse disc bulge. There is no facet arthropathy. There is no neuroforaminal stenosis. There is no spinal canal stenosis. L2-L3: Mild diffuse disc bulge and ligamentum flavum thickening There is mild facet arthropathy. There is no neuroforaminal stenosis. There is no spinal canal stenosis. L3-L4: Mild diffuse disc bulge with ligamentum flavum thickening There is mild facet arthropathy. There is no neuroforaminal stenosis. There is no spinal canal stenosis. L4-L5: Diffuse disc bulge with ligamentum flavum thickening There is mild facet arthropathy. There is mild bilateral neuroforaminal stenosis. There is mild spinal canal stenosis. L5-S1: Diffuse disc bulge and ligamentum flavum thickening There is mild facet arthropathy. There is mild right and moderate left neuroforaminal stenosis. There is no spinal canal stenosis. IMPRESSION: 1. No acute intracranial abnormality. 2. 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 3. Degenerative changes in the lumbar spine as detailed without high-grade central canal stenosis or neural foramen narrowing. Dictated by: Helga Zamudio M.D. The radiology attending physician has personally reviewed this study, and had reviewed and/or edited this written report and agrees with it. Electronically signed by: Jay Alexis MD us Ivanna WAYNE IMG CT PROCEDURES Final Res ult * XR Chest PA Lateral 2 Views (03/31/2025 5:49 PM CDT) Anatomical Region Laterality Modality Body, Chest N/A Computed Radiogr aphy 04/01/2025 7:58 AM CDT Impressions 04/01/2025 7:58 AM CDT Comparison is made to 03/01/2025. Right internal jugular central venous line with tip projecting over the right atrium. Left subclavian pacemaker with leads projecting over the right atrium and right ventricle. Unchanged cardiomegaly. No consolidation, pleural effusion, or pneumothorax. Metallic density noted within the left upper quadrant within stomach which is likely postprocedural. The radiology attending physician has personally reviewed this study, and had reviewed and/or edited this written report and agrees with it. Electronically signed by: Shabbir Jett M.D. Narrative 04/01/2025 7:58 AM CDT EXAMINATION: 2 view chest radiograph Procedure Note Shabbir Jett MD - 04/01/2025 EXAMINATION: 2 view chest radiograph IMPRESSION: Comparison is made to 03/01/2025. Right internal jugular central venous line with tip projecting over the right atrium. Left subclavian pacemaker with leads projecting over the right atrium and right ventricle. Unchanged cardiomegaly. No consolidation, pleural effusion, or pneumothorax. Metallic density noted within the left upper quadrant within stomach which is likely postprocedural. The radiology attending physician has personally reviewed this study, and had reviewed and/or edited this written report and agrees with it. Electronically signed by: Shabbir Jett M.D. Ivanna Chinchilla DC IMG XR PROCEDURES Final Res ult * Urinalysis reflex to microscopic and culture Urine (03/31/2025 5:22 PM CDT) Color, ur Straw Yellow Clarity, ur Clear Clear CERNER BJWCH Specific gravity, ur 1.008 1.003 - 1.030 CERNER BJWCH pH, urine [...] tendency for uric acid stone formation. Source: Mipso Current Interpretive Data was last revised on [...] for microscopic UA and culture not met. [facility] Urine 03/31/2025 5:22 PM CDT 03/31/2025 5:26 PM CDT us Ivanna WAYNE LAB MICROBIOLOGY - GENERAL ORDERABLES Final Result DAVID PEOPLES [id number] [facility]. Department [place] [address] * Influenza A/B, RSV, and COVID-19 PCR Nasopharyngeal (03/31/2025 3:04 PM CDT) COVID-19 RNA Negative Negative Influenza A RNA Negative Negative CERNER BJWCH Influenza B RNA Negative Negative CERNER BJWCH RSV RNA Negative Negative CERNER BJWCH Comment: Testing performed by [facility]. This test is performed using the Immunome Xpert Xpress CoV-2/Flu/RSV plus assay. This is a multiplex, real-time reverse transcriptase PCR assay intended for the qualitative detection of nucleic acid from SARS-CoV-2, influenza A, influenza B, and respiratory syncytial virus. This assay has been cleared by the [place] Food and Drug administration. The performance characteristics have been verified by the [facility]. Results must be considered in the clinical context, and a negative result does not rule out infection. Interpretive Data last revised 2023 Nasopharyngeal 03/31/2025 3: 04 PM CDT 03/31/2025 3:08 PM CDT Narrative KRISTENPETAR VIRGENWCH - 03/31/2025 3:55 PM CDT Is the Patient experiencing symptoms consistent with COVID?->Yes us Ivanna WAYNE LAB MICROBIOLOGY - GENERAL ORDERABLES Final Result Performing Organization Address [facility] de Phone Number DAVID VIRGENCH [address] [employer] [address] [employer] [place], [place] [phone] * eGFR (03/31/2025 3:04 PM CDT) eGFR >90 >=60 mL/min/1. 73 [...] interpretive data was last reviewed 2021. Blood 03/31/2025 3:04 PM CDT 03/31/2025 3:08 PM CDT Ivanna WAYNE LAB BLOOD ORDERABLES Final Result Performing Organization Address [facility] Co de Phone Number DAVID SWEENEYCH [address] [employer] [place] [address] * (ABNORMAL) Differential, auto (03/31/2025 3:04 PM CDT) Neutrophil abs 6.81(H) 1.50 - 6.50 K/cumm Imm gran abs 0.04 0.00 - 0.10 K/cumm CERNER BJWCH Lymphocyte abs 0.81 0.80 - 3.30 K/cumm CERNER BJWCH Monocyte abs 0.93(H) 0.20 - 0.80 K/cumm CERNER BJWCH Eosinophil abs 0.12 0.00 - 0.50 K/cumm [facility] Basophil abs 0.03 0.00 - 0.10 K/cumm [facility]ID [facility] Neutrophil pct 77.9 % [facility] Comment: Interpretive Data Percent cell count reference ranges are not reported, since discordance with absolute values may lead to misinterpretation of CBC data. Current Interpretive Data was last revised on 2017. Imm gran pct 0.5 % [facility] Comment: Interpretive Data Percent cell count reference ranges are not reported, since discordance with absolute values may lead to misinterpretation of CBC data. Current Interpretive Data was last revised on 2017. Lymphocyte pct 9.3 % [facility] Comment: Interpretive Data Percent cell count reference ranges are not reported, since discordance with absolute values may lead to misinterpretation of CBC data. Current Interpretive Data was last revised on 2017. Monocyte pct 10.6 % [facility] Comment: Interpretive Data Percent cell count reference ranges are not reported, since discordance with absolute values may lead to misinterpretation of CBC data. Current Interpretive Data was last revised on 2017. Eosinophil pct 1.4 % [facility] Comment: Interpretive Data Percent cell count reference ranges are not reported, since discordance with absolute values may lead to misinterpretation of CBC data. Current Interpretive Data was last revised on 2017. Basophil pct 0.3 % [facility] Comment: Interpretive Data Percent cell count reference ranges are not reported, since discordance with absolute values may lead to misinterpretation of CBC data. Current Interpretive Data was last revised on 2017. Blood 03/31/2025 3:04 PM CDT 03/31/2025 3:08 PM CDT us Ivanna WAYNE LAB BLOOD ORDERABLES Final Result DAVID VIRGENWCH [id number] [facility]. Department [place] [address] * (ABNORMAL) CBC with auto differential (03/31/2025 3:04 PM CDT) WBC 8.74 3.80 - 9.90 K/cumm Hgb 12.2(L) 13.0 - 17.5 g/dL [facility] Hct 38.4(L) 38.9 - 50.3 % [facility] Plt 199 150 - 400 K/cumm [facility] MPV 11.1 9.1 - 12.3 fL [facility] RBC 4.57 4.30 - 5.80 M/cumm [facility] MCV 84.0 81.3 - 96.4 fL [facility] MCH 26.7(L) 27.1 - 33.3 pg [facility] MCHC 31.8(L) 32.3 - 35.7 g/dL [facility] RDW CV 16.6(H) 11.1 - 14.9 % [facility] RDW SD 50.6(H) 35.7 - 48.1 fL [facility] NRBC abs 0.00 0.00 - 0.01 K/cumm [facility] Blood Venous blood specimen / Unknown 03/31/2025 3:04 PM CDT 03/31/2025 3:08 PM CDT Ivanna WAYNE LAB BLOOD ORDERABLES Final Result [facility] [address] [facility] [place] [address] * (ABNORMAL) Hemoglobin A1c (03/31/2025 3:04 PM CDT) Pathologist [facility] Hgb A1C 8.2(H) 4.0 - 5.6 % Estimated Average Glucose 189 mg/dL [facility] Comment: The ADA recommends reporting an estimated Average Glucose (eAG) with all Hemoglobin A1c results using the equation derived from a study of 507 normal and diabetic adults. Minority populations were underrepresented and children were not included. (Diabetes Care 31:7609-1246, 2008). The eAG is not equivalent to a fasting glucose. Blood 03/31/2025 3:04 PM CDT 03/31/2025 3:08 PM CDT us Eugenie Garibay MD LAB BLOOD ORDERABLES Final R esult [facility] [address] [address] Department [place] [address] * (ABNORMAL) Comprehensive metabolic panel (03/31/2025 3:04 PM CDT) Sodium 135 135 - 145 mmol/L Potassium, pl 4.2 3.3 - 4.9 mmol/L [facility] Chloride 101 97 - 110 mmol/L [facility] CO2 21(L) 22 - 32 mmol/L [facility] Anion gap 13 2 - 15 mmol/L [facility] BUN 19 6 - 25 mg/dL [facility] Creatinine 0.63(L) 0.80 - 1.30 mg/dL [facility] Glucose 199 70 - 199 mg/dL [facility] Comment: [...] interpretive data was last revised 2022. Calcium 9.5 8.5 - 10.3 mg/dL [facility] Bilirubin, total 0.4 0.1 - 1.2 mg/dL [facility] Protein, pl 6.9 6.5 - 8.5 g/dL [facility] Albumin 3.7 3.5 - 5.0 g/dL [facility] Alk phos 742(H) 40 - 130 Units/L [facility] ALT 84(H) 7 - 55 Units/L [facility] AST 39 10 - 50 Units/L [facility] Blood 03/31/2025 3:04 PM CDT 03/31/2025 3:08 PM CDT Ivanna WAYNE LAB BLOOD ORDERABLES Final Result Performing Organization Address [facility] Co de Phone Number DAVID VIRGENCH [phone] [facility]. [facility] [place] [address] * (ABNORMAL) POCT glucose (03/05/2025 12:14 PM CDT) Glucose, POC 386(H) 70 - 199 mg/dL Comment: Interpretive Data Glucose is assumed to be non-fasting. Fasting Glucose reference ranges are: 0 - 150 years: 70 mg/dL - 99 mg/dL Current interpretive data was last revised on 2014. POC Device Number [id number] DAVID PEOPLES Blood 03/05/2025 12:1 4 PM CDT 03/05/2025 12:14 PM CDT Jae Dave MD LAB POCT ORDERABLES - DEVICE Fin al Result Performing Organization Address [facility] Phone Number DAVID VIRGENWCH [phone] [employer] [place] [address] * POCT glucose (03/05/2025 8:54 AM CDT) Glucose, POC 146 70 - 199 mg/dL Comment: Interpretive Data Glucose is assumed to be non-fasting. Fasting Glucose reference ranges are: 0 - 150 years: 70 mg/dL - 99 mg/dL Current interpretive data was last revised on 2014. POC Device Number [id number] DAVID PEOPLES Blood 03/05/2025 8:54 AM CDT 03/05/2025 8:54 AM CDT Jae Dave MD LAB POCT ORDERABLES - DEVICE Fin al Result Performing Organization Address [facility] Co de Phone Number DAVID [facility] [address] [facility]. Department [place] [address] * US LEONOR (03/05/2025 5:37 AM CDT) Anatomical Region Laterality Modality Vascular N/A Ultrasound 03/05/2025 8:09 AM CDT Impressions 03/05/2025 8:09 AM CDT 1. Normal ankle-brachial indices. 2. Decreased right toe brachial index compatible with vascular disease. Electronically signed by: Shabbir Jett M.D. Narrative 03/05/2025 8:09 AM CDT EXAMINATION: US LEONOR TECHNIQUE: Ultrasound examination of the lower extremity arteries was performed with segmental systolic pressure measurement, arterial waveform analysis and pulse volume recordings. HISTORY: Claudication FINDINGS: Brachial artery pressure is 121 mmHg on the right. Left side could not be obtained. Posterior tibial artery pressures are 142 mmHg on the right and 155 mmHg on the left. Dorsalis pedis artery pressures are 148 mmHg on the right and 43 mmHg on the left. Digital pressures are 58 mmHg on the right and 118 mmHg on the left. Ankle brachial indices are 1.2 on the right and 0.2 on the left. The right TBI is 0.48, the left TBI is 0.98 Procedure Note Shabbir Jett MD - 03/05/2025 EXAMINATION: US LEONOR TECHNIQUE: Ultrasound examination of the lower extremity arteries was performed with segmental systolic pressure measurement, arterial waveform analysis and pulse volume recordings. HISTORY: Claudication FINDINGS: Brachial artery pressure is 121 mmHg on the right. Left side could not be obtained. Posterior tibial artery pressures are 142 mmHg on the right and 155 mmHg on the left. Dorsalis pedis artery pressures are 148 mmHg on the right and 43 mmHg on the left. Digital pressures are 58 mmHg on the right and 118 mmHg on the left. Ankle brachial indices are 1.2 on the right and 0.2 on the left. The right TBI is 0.48, the left TBI is 0.98 IMPRESSION: 1. Normal ankle-brachial indices. 2. Decreased right toe brachial index compatible with vascular disease. Electronically signed by: Shabbir Jett M.D. Bianka WAYNE IMG US PROCEDURES Final Result * eGFR (03/05/2025 3:59 AM CDT) eGFR >90 >=60 mL/min/1. 73 [...] interpretive data was last reviewed 2021. Blood 03/05/2025 3:59 AM CDT 03/05/2025 4:03 AM CDT Rosa Camp MD LAB BLOOD ORDERABLES Final Result DAVID VIRGENCH [address] [facility]. Department [place] [address] * (ABNORMAL) Differential, auto (03/05/2025 3:59 AM CDT) Neutrophil abs 2.27 1.50 - 6.50 K/cumm Imm gran abs 0.01 0.00 - 0.10 K/cumm [facility] Lymphocyte abs 0.67(L) 0.80 - 3.30 K/cumm [facility] Monocyte abs 0.49 0.20 - 0.80 K/cumm [facility] Eosinophil abs 0.30 0.00 - 0.50 K/cumm [facility] Basophil abs 0.02 0.00 - 0.10 K/cumm [facility] Neutrophil pct 60.4 % DAVID PEOPLES Comment: Interpretive Data Percent [...] was last revised on 2017. Lymphocyte pct 17.8 % DAVID PEOPLES Comment: Interpretive Data Percent cell count reference ranges are not reported, since discordance with absolute values may lead to misinterpretation of CBC data. Current Interpretive Data was last revised on 2017. Monocyte pct 13.0 % DAVID PEOPLES Comment: Interpretive Data Percent cell count reference ranges are not reported, since discordance with absolute values may lead to misinterpretation of CBC data. Current Interpretive Data was last revised on 2017. Eosinophil pct 8.0 % DAVID PEOPLES Comment: Interpretive Data Percent cell count reference ranges are not reported, since discordance with absolute values may lead to misinterpretation of CBC data. Current Interpretive Data was last revised on 2017. Basophil pct 0.5 % DAVID PEOPLES Comment: Interpretive Data Percent cell count reference ranges are not reported, since discordance with absolute values may lead to misinterpretation of CBC data. Current Interpretive Data was last revised on 2017. Blood 03/05/2025 3:59 AM CDT 03/05/2025 4:03 AM CDT us Rosa Camp MD LAB BLOOD ORDERABLES Final Result [facility] [id number] [facility]. Department [place] [address] * (ABNORMAL) CBC with auto differential (03/05/2025 3:59 AM CDT) WBC 3.76(L) 3.80 - 9.90 K/cumm Hgb 10.4(L) 13.0 - 17.5 g/dL [facility] Hct 32.9(L) 38.9 - 50.3 % [facility] Plt 118(L) 150 - 400 K/cumm [facility] MPV 10.4 9.1 - 12.3 fL [facility] RBC 3.99(L) 4.30 - 5.80 M/cumm [facility] MCV 82.5 81.3 - 96.4 fL [facility] MCH 26.1(L) 27.1 - 33.3 pg [facility] MCHC 31.6(L) 32.3 - 35.7 g/dL [facility] RDW CV 16.2(H) 11.1 - 14.9 % [facility] RDW SD 49.4(H) 35.7 - 48.1 fL [facility] NRBC abs 0.00 0.00 - 0.01 K/cumm [facility] Blood 03/05/2025 3:59 AM CDT 03/05/2025 4:03 AM CDT Rosa Camp MD LAB BLOOD ORDERABLES Final Result DAVID PEOPLES [address] [facility]. Department [place] [address] * (ABNORMAL) Comprehensive metabolic panel (03/05/2025 3:59 AM CDT) Sodium 140 135 - 145 mmol/L Potassium, pl 3.9 3.3 - 4.9 mmol/L [facility] Chloride 106 97 - 110 mmol/L [facility] CO2 24 22 - 32 mmol/L [facility] Anion gap 10 2 - 15 mmol/L [facility] BUN 14 6 - 25 mg/dL [facility] Creatinine 0.70(L) 0.80 - 1.30 mg/dL [facility] Glucose 206(H) 70 - 199 mg/dL [facility] Comment: Interpretive Data Fasting glucose [...] - 1.2 mg/dL [facility] Protein, pl 5.8(L) 6.5 - 8.5 g/dL [facility] Albumin 3.2(L) 3.5 - 5.0 g/dL [facility] Alk phos 694(H) 40 - 130 Units/L [facility] ALT 68(H) 7 - 55 Units/L [facility] AST 34 10 - 50 Units/L [facility] Blood 03/05/2025 3:59 AM CDT 03/05/2025 4:03 AM CDT Rosa Camp MD LAB BLOOD ORDERABLES Final Result DAVID PEOPLES [id number] [facility]. Department [place] [address] * (ABNORMAL) POCT glucose (03/04/2025 8:41 PM CDT) [facility] Signature Glucose, POC 299(H) 70 - 199 mg/dL Comment: Interpretive Data Glucose is assumed to be non-fasting. Fasting Glucose reference ranges are: 0 - 150 years: 70 mg/dL - 99 mg/dL Current interpretive data was last revised on 2014. POC Device Number [id number] [facility] Blood 03/04/2025 8:41 PM CDT 03/04/2025 8:41 PM CDT Jae Dave MD LAB POCT ORDERABLES - DEVICE Fin al Result Performing Organization Address [facility] de Phone Number DAVID VIRGENCH [address] [facility]. [facility] [employer] [place], [place] [id number] * POCT glucose (03/04/2025 4:42 PM CDT) Glucose, POC 191 70 - 199 mg/dL Comment: Interpretive Data Glucose is assumed to be non-fasting. Fasting Glucose reference ranges are: 0 - 150 years: 70 mg/dL - 99 mg/dL Current interpretive data was last revised on 2014. POC Device Number [id number] DAVID VIRGENWCH Blood 03/04/2025 4:42 PM CDT 03/04/2025 4:42 PM CDT Jae Dave MD LAB POCT ORDERABLES - DEVICE Fin al Result Performing Organization Address [facility] Phone Number DAVID VIRGENCH [address] [facility]. [facility] [place] [address] * (ABNORMAL) POCT glucose (03/04/2025 12:22 PM CDT) Glucose, POC 216(H) 70 - 199 mg/dL Comment: Interpretive Data Glucose is assumed to be non-fasting. Fasting Glucose reference ranges are: 0 - 150 years: 70 mg/dL - 99 mg/dL Current interpretive data was last revised on 2014. POC Device Number [id number] [facility]GENW[facility] Glucose comment 1 RN/MD Notified DAVID PEOPLES Blood 03/04/2025 12:2 2 PM CDT 03/04/2025 12:22 PM CDT Jae Dave MD LAB POCT ORDERABLES - DEVICE Fin al Result Performing Organization Address [facility] de Phone Number DAVID BJ[facility] [address] [facility]. [facility] [employer] [place], [place] [id number] * POCT glucose (03/04/2025 7:57 AM CDT) Glucose, POC 150 70 - 199 mg/dL Comment: Interpretive Data Glucose is assumed to be non-fasting. Fasting Glucose reference ranges are: 0 - 150 years: 70 mg/dL - 99 mg/dL Current interpretive data was last revised on 2014. POC Device Number [id number] [facility] Blood 03/04/2025 7:57 AM CDT 03/04/2025 7:57 AM CDT us Jae Dave MD LAB POCT ORDERABLES - DEVICE Fin al Result Performing Organization Address City/[facility]/ZIP Co de Phone Number DAVID VIRGENCH [address] [facility] [place] [address] * eGFR (03/04/2025 5:05 AM CDT) eGFR >90 >=60 mL/min/1. 73 [...] interpretive data was last reviewed 2021. Blood 03/04/2025 5:05 AM CDT 03/04/2025 5:14 AM CDT us Rosa Camp MD LAB BLOOD ORDERABLES Final Result DAVID PEOPLES [address] [address] Department [place] [address] * (ABNORMAL) Differential, auto (03/04/2025 5:05 AM CDT) Neutrophil abs 2.32 1.50 - 6.50 K/cumm Imm gran abs 0.01 0.00 - 0.10 K/cumm [facility] Lymphocyte abs 0.56(L) 0.80 - 3.30 K/cumm [facility] Monocyte abs 0.50 0.20 - 0.80 K/cumm [facility] Eosinophil abs 0.32 0.00 - 0.50 K/cumm [facility] Basophil abs 0.01 0.00 - 0.10 K/cumm [facility] Neutrophil pct 62.3 % DAVID PEOPLES Comment: Interpretive Data Percent cell count reference ranges are not reported, since discordance with absolute values may lead to misinterpretation of CBC data. Current Interpretive Data was last revised on 2017. Imm gran pct 0.3 % [facility]ID [facility] Comment: Interpretive Data Percent cell count reference ranges are not reported, since discordance with absolute values may lead to misinterpretation of CBC data. Current Interpretive Data was last revised on 2017. Lymphocyte pct 15.1 % [facility] Comment: Interpretive Data Percent cell count reference ranges are not reported, since discordance with absolute values may lead to misinterpretation of CBC data. Current Interpretive Data was last revised on 2017. Monocyte pct 13.4 % DAVID PEOPLES Comment: Interpretive Data Percent cell count reference ranges are not reported, since discordance with absolute values may lead to misinterpretation of CBC data. Current Interpretive Data was last revised on 2017. Eosinophil pct 8.6 % [facility] Comment: Interpretive Data Percent cell count reference ranges are not reported, since discordance with absolute values may lead to misinterpretation of CBC data. Current Interpretive Data was last revised on 2017. Basophil pct 0.3 % [facility] Comment: Interpretive Data Percent cell count reference ranges are not reported, since discordance with absolute values may lead to misinterpretation of CBC data. Current Interpretive Data was last revised on 2017. Blood 03/04/2025 5:05 AM CDT 03/04/2025 5:14 AM CDT Rosa Camp MD LAB BLOOD ORDERABLES Final Result DAVID PEOPLES [address] [employer] [place], [place] [id number] * (ABNORMAL) CBC with auto differential (03/04/2025 5:05 AM CDT) WBC 3.72(L) 3.80 - 9.90 K/cumm Hgb 10.5(L) 13.0 - 17.5 g/dL [facility] Hct 34.4(L) 38.9 - 50.3 % [facility] Plt 113(L) 150 - 400 K/cumm [facility] MPV 10.7 9.1 - 12.3 fL [facility] RBC 4.11(L) 4.30 - 5.80 M/cumm [facility] MCV 83.7 81.3 - 96.4 fL [facility] MCH 25.5(L) 27.1 - 33.3 pg [facility] MCHC 30.5(L) 32.3 - 35.7 g/dL [facility] RDW CV 16.7(H) 11.1 - 14.9 % [facility] RDW SD 51.2(H) 35.7 - 48.1 fL [facility] NRBC abs 0.00 0.00 - 0.01 K/cumm [facility] Blood 03/04/2025 5:05 AM CDT 03/04/2025 5:14 AM CDT Rosa Camp MD LAB BLOOD ORDERABLES Final Result Performing Organization Address City/[facility]/ZIP Co de Phone Number DAVID PEOPLES [phone] [facility] [place] [address] * (ABNORMAL) Comprehensive metabolic panel (03/04/2025 5:05 AM CDT) Sodium 139 135 - 145 mmol/L Potassium, pl 4.0 3.3 - 4.9 mmol/L [facility] Chloride 105 97 - 110 mmol/L [facility] CO2 26 22 - 32 mmol/L [facility] Anion gap 8 2 - 15 mmol/L [facility] BUN 17 6 - 25 mg/dL [facility] Creatinine 0.71(L) 0.80 - 1.30 mg/dL [facility] Glucose 149 70 - 199 mg/dL [facility] Comment: [...] - 10.3 mg/dL [facility] Bilirubin, total 0.8 0.1 - 1.2 mg/dL [facility] Protein, pl 6.0(L) 6.5 - 8.5 g/dL [facility] Albumin 3.4(L) 3.5 - 5.0 g/dL [facility] Alk phos 714(H) 40 - 130 Units/L [facility] ALT 87(H) 7 - 55 Units/L [facility] AST 47 10 - 50 Units/L [facility] Blood 03/04/2025 5:05 AM CDT 03/04/2025 5:14 AM CDT Rosa Camp MD LAB BLOOD ORDERABLES Final Result DAVID SWEENEY [id number] [employer] [facility] [employer] [place], [place] [id number] * (ABNORMAL) POCT glucose (03/03/2025 8:51 PM CDT) Glucose, POC 211(H) 70 - 199 mg/dL Comment: Interpretive Data Glucose is assumed to be non-fasting. Fasting Glucose reference ranges are: 0 - 150 years: 70 mg/dL - 99 mg/dL Current interpretive data was last revised on 2014. POC Device Number [id number] DAVID VIRGENW Blood 03/03/2025 8:51 PM CDT 03/03/2025 8:51 PM CDT Jae Dave MD LAB POCT ORDERABLES - DEVICE Fin al Result Performing Organization Address [facility] de Phone Number [facility] [address] [employer] [facility] [employer] [place], [place] [id number] * POCT glucose (03/03/2025 5:12 PM CDT) Glucose, POC 168 70 - 199 mg/dL Comment: Interpretive Data Glucose is assumed to be non-fasting. Fasting Glucose reference ranges are: 0 - 150 years: 70 mg/dL - 99 mg/dL Current interpretive data was last revised on 2014. POC Device Number [id number] [facility] Blood 03/03/2025 5:1 2 PM CDT 03/03/2025 5:12 PM CDT Jae Dave MD LAB POCT ORDERABLES - DEVICE Fin al Result Performing Organization Address [facility] de Phone Number [facility] [address] [employer] [facility] [employer] [place], [place] [id number] * Histoplasma Antigen Urine (03/03/2025 3:18 PM CDT) Histo/Blasto Ag Value Not Detected ng/mL [place] [facility] Comment: ADDITIONAL INFORMATION This test was developed and its performance characteristics determined by [facility] in a manner consistent with CLIA requirements. This test has not been cleared or approved by the U.S. Food and Drug Administration. Test Performed by: [facility] [place] [address] Chemical Manager: Ana Plascencia Ph.D.; CLIA# [id number] Histo/Blasto Ag Result Not Detected Not Detected DAVID PEOPLES Comment: No antigen from Histoplasma or Blastomyces detected. False negative results may occur depending on extent of disease, and/or site of infection. Repeat testing on a new specimen if clinically indicated. Urine 03/03/2025 3:18 PM CDT 03/03/2025 3:35 PM CDT Bianka WAYNE LAB MICROBIOLOGY - GENERAL ORDERABLES Final Result [facility] [address] [facility]. Department [place] [address] [facility] * Q fever ab w rflx to immunofluorescence Blood (03/03/2025 3:04 PM CDT) Q fever ab scrn w titer rflx ser Negative Negative [facility] Comment: No antibodies to Q Fever (Coxiella burnetii) detected. Repeat testing on a new sample collected in 2-3 weeks if acute Q Fever is suspected. ADDITIONAL INFORMATION This test was developed and its performance characteristics determined by [facility] in a manner consistent with CLIA requirements. This test has not been cleared or approved by the U.S. Food and Drug Administration. Test Performed by: [facility] [place] [address] Chemical Manager: Ana Plascencia Ph.D.; CLIA# [id number] Blood 03/03/2025 3:04 PM CDT 03/03/2025 3:22 PM CDT Bianka WAYNE LAB MICROBIOLOGY - GENERAL ORDERABLES Final Result Performing Organization Address [facility] Co de Phone Number DAVID BJW[facility] [address] [facility]. [place] [address] [facility] * (ABNORMAL) Histoplasma Antibody Blood (03/03/2025 3:04 PM CDT) Histoplasma Ab, yeast CF 1:16(A) Negative [facility] Histoplasma Ab, Immunodiffusion Negative Negative [facility]ID [facility] Comment: Test Performed by: [place] [address] Chemical Manager: Ana Plascencia Ph.D.; CLIA# [id number] Blood 03/03/2025 3:04 PM CDT 03/03/2025 3:22 PM CDT Bianka WAYNE LAB MICROBIOLOGY - GENERAL ORDERABLES Final Result Performing Organization Address [facility] Co de Phone Number DAVID BJ[facility] [address] [facility]. [place] [address] [facility] * Cytomegalovirus (CMV) DNA PCR, quantitative Blood (03/03/2025 3:04 PM CDT) Pathologist [facility] CMV DNA Not Detected [facility] Comment: Interpretive Data: The quantifiable range of this assay is 34 IUnits/mL to 10,000,000 IUnits/mL (1.53 log IUnits/mL to 7.0 log IUnits/mL). Testing was performed by the [facility] [id number] CMV Test ([employer] Testing performed at [facility]. Current interpretive data was last revised on 2021. Testing performed by: [facility], [address] [facility], [place]., [address] Blood 03/03/2025 3:04 PM CDT 03/03/2025 7:06 PM CDT Bianka WAYNE LAB MICROBIOLOGY - GENERAL ORDERABLES Final Result [facility] [address] [address] Department [place] [address] [facility] * Hepatitis panel, acute Blood (03/03/2025 3:04 PM CDT) Hep A IgM Nonreactive Nonreactive Comment: Interpretive Data: If Hep A IgM Ab is reported as Equivocal, a new sample should be drawn in two weeks for testing. Current interpretive data was last revised on 19. Testing performed by: [facility], [address] [place] [address]., [id number] Hep B core IgM Nonreactive Nonreactive DAVID [facility] Comment: Interpretive Data If HepB Core IgM Ab is reported as Equivocal, a new sample should be drawn in two weeks for testing. Current interpretive data was last revised on 19. Testing performed by: [facility], [address] [place] [address]., [id number] Hep C Ab Nonreactive Nonreactive DAVID SWEENEY Comment: Interpretive Data Nonreactive: Antibodies to HCV not detected. Does NOT exclude the possibility of recent exposure to HCV. Equivocal: Equivocal for HCV antibodies. Supplemental molecular testing will be automatically performed to determine infection status in accordance with current CDC screening recommendations. Reactive: Positive for HCV antibodies. This may represent current or past HCV infection. Supplemental molecular testing will be automatically performed to determine current infection status in accordance with current CDC screening recommendations. Interpretive data was last revised on 2019. Testing performed by: [facility], [address] [place] [address]., [id number] HepBsAg Nonreactive Nonreactive [facility] Comment:Testing performed by : [facility], [address] [place] [address]., [id number] Blood 03/03/2025 3:04 PM CDT 03/03/2025 5:07 PM CDT Bianka WAYNE LAB MICROBIOLOGY - GENERAL ORDERABLES Final Result Performing Organization Address [facility] Co de Phone Number DAVID VIRGENWCH [address] [address] [facility] [place] [address] * Blood culture Blood (03/03/2025 3:04 PM CDT) Report Final Report: No growth Comment:Testing performed by : [facility], [address] [place] [address]., [id number] Blood 03/03/2025 3:04 PM CDT 03/03/2025 4:44 PM CDT Narrative KRISTENPETAR SWEENEYCH - 03/09/2025 7:00 AM CDT Collection->Peripheral Interpretive Data 1. Blood cultures are incubated and monitored continuously for 5 days (120 hours). The first negative report is issued within 24 hours of receipt in the laboratory. 2. All positive cultures are resulted and called to physicians/care providers as soon as they are detected. 3. A rapid molecular test for organism identification may be performed using the [employer] Blood Culture Identification panel. This assay detects microbial DNA in a blood culture broth. This assay has been cleared by the [place] Food and Drug Administration and its performance characteristics have been verified by the [facility]. Interpretive data was last revised on August 03, 2022. Bianka WAYNE LAB MICROBIOLOGY - GENERAL ORDERABLES Final Result Performing Organization Address [facility] Co de Phone Number DAVID VIRGENWCH [phone] [address] [facility] [place] [address] * Cindy-Zaman Virus (EBV) DNA Quantitative Blood (03/03/2025 3:03 PM CDT) EBV DNA Result Not Detected [facility] Comment: Interpretive Data The quantifiable range of this assay is 35 IUnits/mL to 100,000,000 IUnits/mL (1.54 log IUnits/mL to 8.0 log IUnits/mL). Testing was performed by the BRENNA 6800 EBV Test ([employer] Testing performed at [facility]. Current interpretive data was last revised on 2022. Testing performed by: [facility], [address] [place]., [address] Blood 03/03/2025 3:03 PM CDT 03/03/2025 7:05 PM CDT Bianka WAYNE LAB MICROBIOLOGY - GENERAL ORDERABLES Final Result DAVID [facility] [id number] [address] [facility] [place] [address] [facility] * Ehrlichia and Anaplasma PCR Blood (03/03/2025 3:03 PM CDT) Pathologist [facility] Ehrlichia species DNA Not Detected Not Detected [facility] Comment:Testing performed by : [facility], [address] [place] [address]., [id number] Anaplasma Phagocytophilum DNA Not Detected Not Detected DAVID PEOPLES Comment: This assay tests for the presence of Anaplasma phagocytophilum, Ehrlichia chaffeensis, Ehrlichia ewingii and Ehrlichia canis. This test is laboratory developed and its performance characteristics were determined by the performing laboratory in a manner consistent with CLIA requirements. This test has not been cleared or approved by the U.S. Food and Drug Administration. Testing performed by: [facility], [address] [place] [address]., [id number] Blood 03/03/2025 3:03 PM CDT 03/03/2025 7:05 PM CDT Bianka WAYNE LAB MICROBIOLOGY - GENERAL ORDERABLES Final Result DAVID BJWCH [id number] [address] [facility] [place] [address] [facility] * Blastomyces antibody, EIA, serum Blood (03/03/2025 3:00 PM CDT) Pathologist [facility] Blastomyces Antibody Negative Negative [place] [facility] Comment: A single negative result does not exclude the diagnosis of blastomycosis. Repeat testing on a new sample in 7-14 days if clinically indicated. Test Performed by: [place] [address] Chemical Manager: Ana Plascencia Ph.D.; CLIA# [id number] Blood 03/03/2025 3:00 PM CDT 03/03/2025 3:22 PM CDT Binaka WAYNE LAB MICROBIOLOGY - GENERAL ORDERABLES Final Result Performing Organization Address City/[facility] Co de Phone Number vitalclip [phone] [place] [address] [facility] * (ABNORMAL) Rickettsia rickettsii antibodies Blood (03/03/2025 3:00 PM CDT) [facility] Spotted Fever Group Antibody, IgG 1:64(A) <1:64 [place] [facility] Comment: Single IgG serum endpoint titers of 1:64 or 1:128 are suggestive of infection at an undetermined time and may be indicative of either past infection or early response to a recent infection. The best serologic evidence of recent rickettsial infection is a four-fold or greater increase in titer between two serum samples drawn 1-2 weeks apart and tested in parallel. Spotted Fever Group Antibody, IgM <1:64 <1:64 [facility] Comment: No antibody detected. Test Performed by: [place] [address] Chemical Manager: Ana Plascencia Ph.D.; CLIA# [id number] Blood 03/03/2025 3:00 PM CDT 03/03/2025 3:57 PM CDT Bianka WAYNE LAB MICROBIOLOGY - GENERAL ORDERABLES Final Result [facility] [address] [address] [facility] [place] [address] [place] [facility] * HIV 1/2 Antibody plus p24 Antigen Blood (03/03/2025 3:00 PM CDT) [facility] HIV 1/2 ab + p24 ag Nonreactive Nonreactive Comment: Nonreactive for HIV-1 antigen and HIV-1/HIV-2 antibodies. No laboratory evidence of HIV infection. If acute HIV infection is suspected, consider testing for HIV-1 RNA. Testing performed by: [facility], [address] [place] [address]., [id number] Blood 03/03/2025 3:00 PM CDT 03/03/2025 5:07 PM CDT Bianka WAYNE LAB MICROBIOLOGY - GENERAL ORDERABLES Final Result [facility] [address] [facility]. [facility] [place] [address] * (ABNORMAL) Cindy-Zaman virus (EBV) antibody panel Blood (03/03/2025 3:00 PM CDT) [facility] EBV nuclear Ab Positive(A) Negative Comment: Indicates the presence of detectable IgG antibody to EBV Nuclear Antigen. Testing performed by: [facility], [address] [place] [address]., [id number] EBV VCA IgG Positive(A) Negative DAVID PEOPLES Comment: Indicates the presence of antibody; 90% of the adult population will have been infected with EBV sometime in the past. Testing performed by: [facility], [address] [place]., [address] EBV VCA IgM Negative Negative DAVID PEOPLES Comment: No detectable IgM antibody to EBV-VCA. A negative result indicates no current infection with EBV. If clinical suspicion of acute EBV infection is present, testing should be repeated after one week. Testing performed by: [facility], [address] [place] [address]., [id number] EBV interp Past Infection DAVID PEOPLES Comment:Testing performed by : [facility], [address] [facility], [place]., [address] Blood 03/03/2025 3:00 PM CDT 03/03/2025 6:55 PM CDT Bianka WAYNE LAB MICROBIOLOGY - GENERAL ORDERABLES Final Result Performing Organization Address City/[facility] Co de Phone Number DAVID SWEENEYCH [phone] [address] [employer] [place], [place] [id number] * Bartonella antibody panel Blood (03/03/2025 3:00 PM CDT) [facility] B Henselae, IgG <1:128 <1:128 titer [place] [facility] B Henselae, IgM <1:20 <1:20 titer [facility] B. Orellana, IgG <1:128 <1:128 titer [facility] B. Orellana, IgM <1:20 <1:20 titer DAVID VIRGENWCH Comment: ADDITIONAL INFORMATION This test was developed and its performance characteristics determined by [facility] in a manner consistent with CLIA requirements. This test has not been cleared or approved by the U.S. Food and Drug Administration. Test Performed by: [facility] [place] [id number] Chemical Manager: Ana Plascencia Ph.D.; CLIA# [id number] Blood 03/03/2025 3:00 PM CDT 03/03/2025 3:22 PM CDT Bianka WAYNE LAB MICROBIOLOGY - GENERAL ORDERABLES Final Result DAVID VIRGENWCH [address] [facility] [place] [address] [facility] * Cryptococcal Antigen, Serum Blood (03/03/2025 3:00 PM CDT) Cryptococcus ag, Serum Negative Negative Comment:Testing performed by : [facility], [address] [place] [address]., [id number] Blood 03/03/2025 3:00 PM CDT 03/03/2025 5:44 PM CDT Bianka WAYNE LAB MICROBIOLOGY - GENERAL ORDERABLES Final Result Performing Organization Address [facility] de Phone Number [facility] BJCH [address] [place] [address] * Blood culture Blood (03/03/2025 3:00 PM CDT) Report Final Report: No growth Comment:Testing performed by : [facility], [address] [place] [address]., [id number] Blood 03/03/2025 3:00 PM CDT 03/03/2025 4:44 PM CDT Narrative DVAID BJWCH - 03/09/2025 7:00 AM CDT Collection->Peripheral Interpretive Data 1. Blood cultures are incubated and monitored continuously for 5 days (120 hours). The first negative report is issued within 24 hours of receipt in the laboratory. 2. All positive cultures are resulted and called to physicians/care providers as soon as they are detected. 3. A rapid molecular test for organism identification may be performed using the [employer] Blood Culture Identification panel. This assay detects microbial DNA in a blood culture broth. This assay has been cleared by the [place] Food and Drug Administration and its performance characteristics have been verified by the [facility]. Interpretive data was last revised on August 03, 2022. Bianka WAYNE LAB MICROBIOLOGY - GENERAL ORDERABLES Final Result Performing Organization Address [facility] Co de Phone Number DAVID BJWCH [address] [address] [facility] [place] [address] * TRANSTHORACIC ECHO (TTE) COMPLETE W DOPPLER/CF W CONTRAST (03/03/2025 2:21 PM CDT) EF Mod BP 70 % CONS SCIMAGE Anatomical Region Laterality Modality Ultrasound 03/03/2025 1:38 PM CDT Narrative 03/03/2025 3:58 PM CDT [facility] Cardiac [place] [address] Transthoracic Echocardiographic Report Patient Name: RAH HENSON M : 1955 (69y 11m) Gender: M Study Date: 03/03/2025 01:38:47 PM Ht(Inch): 69 Wt(Lb): 218.03 BSA: 2.19 Analysis Manager: Location: [id number] Order Provider: BIANKA MCLAUGHLIN Heart Rate: 60 BMI: 32.19 BP: 110 / 46 Ref Provider: BIANKA MCLAUGHLIN PROCEDURES: Echocardiographic Report: Transthoracic complete echo with strain imaging and contrast, 2D, spectral and tissue Doppler, color flow Doppler, M-mode. Contrast: Contrast Enhancement was Employed: Due to suboptimal image quality with inadequate visualization of at least 2 of 16 LV wall segments in any view after initial imaging. Perflutren contrast was administered using the volume necessary to obtain adequate images. 0.8 ml Optison Administered, (2.2 ml wasted). INDICATIONS: Fever and Murmur. CONCLUSIONS: 1. Moderately dilated left ventricle based on volume index. Concentric LV remodeling. Normal left ventricular systolic function. The Ejection Fraction (Levine's) is measured at 70 %. Grade II diastolic dysfunction (elevated mean LA pressure). The average global longitudinal strain is abnormal. 2. Normal right ventricular size. Normal right ventricular systolic function. Wire noted in the right heart. 3. Moderately dilated left atrium. 4. Mildly calcified aortic valve leaflets. Mild-moderate aortic valve regurgitation. 5. Pjco-gu-xwmg views of AV, MV & TV and of RV device without suspicion of vegetation. COMPARISONS: On fhcx-at-[id number] comparision with prior TTE on 08/15/24, the mild AV calcification and degree of regurgitation are visually similar. ATTESTATION: I have personally reviewed and interpreted this study without fellow or resident. - DISCLAIMER: The study images and the final report will be retained in the patient chart by the Echo Laboratory for the legally required time period. This chart constitutes the legal record of any testing performed. FINDINGS: Left Ventricle: Moderately dilated left ventricle based on volume index. Concentric LV remodeling. Normal left ventricular systolic function. The Ejection Fraction (Levine's) is measured at 70 %. Grade II diastolic dysfunction (elevated mean LA pressure). The average global longitudinal strain is abnormal. The LV global strain is: -15.9 %. Right Ventricle: Normal right ventricular size. Normal right ventricular systolic function. Wire noted in the right heart. Left Atrium: Moderately dilated left atrium. Right Atrium: The right atrium is normal in size. Mitral Valve: Normal mitral valve structure. No mitral regurgitation. No stenosis present. Aortic Valve: Mildly calcified aortic valve leaflets. Mild-moderate aortic valve regurgitation. No aortic valve stenosis. The mean transaortic gradient is 10 mmHg. Aortic valve dimensionless index is 0.78. Tricuspid Valve: Normal tricuspid valve structure. No tricuspid regurgitation. No tricuspid valve stenosis. Pulmonic Valve: Normal pulmonic valve structure. No pulmonic regurgitation. No pulmonic valve stenosis present. Pericardium: Normal pericardium without pericardial effusion. Aorta: Normal aortic root size when indexed. IVC: Inferior vena cava without collapse, however, insufficient diaphragm movement. PASP: Unable to determine PASP due to inadequate TR jet. Rhythm: Normal Sinus rhythm was seen during the study. MEASUREMENTS: 2D/MM Value Range Doppler Value Range LVIDd 2D 4.86 cm [ 4.20 - 5.80 ] AV Peak David 2.1 m/s [ 1.0 - 1.7 ] LVIDs 2D 2.76 cm [ 2.50 - 4.00 ] AV Peak PG 17.64 mmHg IVSd 2D 1.10 cm [ 0.60 - 1.00 ] AV Mean PG 10 mmHg LVPWd 2D 1.11 cm [ 0.60 - 1.00 ] AV VTI 45.0 cm LV Thickness Ratio 1.0 LVOT Peak David 1.6 m/s [ 0.7 - 1.1 ] RWT 0.46 LVOT VTI 35.3 cm EDV Mod BP 205.95 ml [ 62.00 - 150.00 ] LVOT Diam 2.07 cm LV EDV Index 93.86 ml/m2 MERNA VTI 2.64 cm2 ESV Mod BP 61.48 ml [ 21.00 - 61.00 ] LVOT/AV VTI 0.78 - Dimensionless index (DVI) EF Mod BP 70 % [ 52 - 72 ] MV E Peak David 1.0 m/s [ 0.6 - 1.3 ] LV GLS -15.9 % [ -25.0 - -18.0 ] MV A Peak David 1.0 m/s [ 1.0 - 1.2 ] LA Volume BP 94.94 ml MV E/A 0.9 ratio [ 0.8 - 1.5 ] LA Volume Index 43.27 ml/m2 [ 16.00 - 34.00 ] MV Decel Time 363.43 msec [ 104.00 - 258.00 ] RV Base Dimen 2D 3.5 cm [ 2.5 - 4.2 ] Med E` David 4.9 cm/sec [ 8.0 - 25.0 ] TAPSE 2.58 cm [ 1.71 - 5.00 ] Lat E` David 7.8 cm/sec [ 10.0 - 25.0 ] RA Volume 48.90 ml Average E/E` 15.75 RA Volume Index 22.29 ml/m2 RV S` 11.01 cm/sec AoR Diam 2D 2.60 cm [ 3.10 - 3.70 ] Ao Root Index 1.18 cm/m2 [ 1.00 - 2.00 ] Electronically Signed By: Khushi Cordero MD 03/03/2025 3:57:50 PM CDT Procedure Note De Khushi Brennan MD - 03/03/2025 [facility] Cardiac [place] [address] Transthoracic Echocardiographic Report Patient Name: RAH HENSON M : 1955 (69y 11m) Gender: M Study Date: 03/03/2025 01:38:47 PM Ht(Inch): 69 Wt(Lb): 218.03 BSA: 2.19 Analysis Manager: RAVEN Location: [id number] Order Provider: BIANKA MCLAUGHLIN Heart Rate: 60 BMI: 32.19 BP: 110 / 46 Ref Provider:BIANKA MCLAUGHLIN PROCEDURES: Echocardiographic Report: Transthoracic complete echo with strain imagingand contrast, 2D, spectral and tissue Doppler, color flow Doppler, M-mode. Contrast: Contrast Enhancement was Employed: Due to suboptimal imagequality with inadequate visualization of at least 2 of 16 LV wall segments in any viewafter initial imaging. Perflutren contrast was administered using the volume necessaryto obtain adequate images. 0.8 ml Optison Administered, (2.2 ml wasted). INDICATIONS: Fever and Murmur. CONCLUSIONS: 1. Moderately dilated left ventricle based on volume index. Concentric LVremodeling. Normal left ventricular systolic function. The Ejection Fraction(Levine's) is measured at 70 %. Grade II diastolic dysfunction (elevated mean LA pressure). Theaverage global longitudinal strain is abnormal. 2. Normal right ventricular size. Normal right ventricular systolicfunction. Wire noted in the right heart. 3. Moderately dilated left atrium. 4. Mildly calcified aortic valve leaflets. Mild-moderate aortic valveregurgitation. 5. Irrl-uq-xznq views of AV, MV & TV and of RV device without suspicion ofvegetation. COMPARISONS: On lapc-ld-gsju comparision with prior TTE on 08/15/24, the mild AVcalcification and degree of regurgitation are visually similar. ATTESTATION: I have personally reviewed and interpreted this study without fellow orresident. - DISCLAIMER: The study images and the final report will be retained in the patientchart by the Echo Laboratory for the legally required time period. This chart constitutesthe legal record of any testing performed. FINDINGS: Left Ventricle: Moderately dilated left ventricle based on volume index.Concentric LV remodeling. Normal left ventricular systolic function. The EjectionFraction (Levine's) is measured at 70 %. Grade II diastolic dysfunction (elevated mean LApressure). The average global longitudinal strain is abnormal. The LV global strain is:-15.9 %. Right Ventricle: Normal right ventricular size. Normal right ventricularsystolic function. Wire noted in the right heart. Left Atrium: Moderately dilated left atrium. Right Atrium: The right atrium is normal in size. Mitral Valve: Normal mitral valve structure. No mitral regurgitation. Nostenosis present. Aortic Valve: Mildly calcified aortic valve leaflets. Mild-moderate aorticvalve regurgitation. No aortic valve stenosis. The mean transaortic gradient is10 mmHg. Aortic valve dimensionless index is 0.78. Tricuspid Valve: Normal tricuspid valve structure. No tricuspidregurgitation. No tricuspid valve stenosis. Pulmonic Valve: Normal pulmonic valve structure. No pulmonicregurgitation. No pulmonic valve stenosis present. Pericardium: Normal pericardium without pericardial effusion. Aorta: Normal aortic root size when indexed. IVC: Inferior vena cava without collapse, however, insufficient diaphragmmovement. PASP: Unable to determine PASP due to inadequate TR jet. Rhythm: Normal Sinus rhythm was seen during the study. MEASUREMENTS: 2D/MM Value Range DopplerValue Range LVIDd 2D 4.86 cm [ 4.20 - 5.80 ] AV Peak Vel2.1 m/s [ 1.0 - 1.7 ] LVIDs 2D 2.76 cm [ 2.50 - 4.00 ] AV Peak PG17.64 mmHg IVSd 2D 1.10 cm [ 0.60 - 1.00 ] AV Mean PG10 mmHg LVPWd 2D 1.11 cm [ 0.60 - 1.00 ] AV VTI45.0 cm LV Thickness Ratio 1.0 LVOT Peak Vel1.6 m/s [ 0.7 - 1.1 ] RWT 0.46 LVOT VTI35.3 cm EDV Mod BP 205.95 ml [ 62.00 - 150.00 ] LVOT Diam2.07 cm LV EDV Index 93.86 ml/m2 MERNA VTI2.64 cm2 ESV Mod BP 61.48 ml [ 21.00 - 61.00 ] LVOT/AV VTI0.78 - Dimensionless index (DVI) EF Mod BP 70 % [ 52 - 72 ] MV E Peak Vel1.0 m/s [ 0.6 - 1.3 ] LV GLS -15.9 % [ -25.0 - -18.0 ] MV A Peak Vel1.0 m/s [ 1.0 - 1.2 ] LA Volume BP 94.94 ml MV E/A0.9 ratio [ 0.8 - 1.5 ] LA Volume Index 43.27 ml/m2 [ 16.00 - 34.00 ] MV Decel Quue646.43 msec [ 104.00 - 258.00 ] RV Base Dimen 2D 3.5 cm [ 2.5 - 4.2 ] Med E` David 4.9cm/sec [ 8.0 - 25.0 ] TAPSE 2.58 cm [ 1.71 - 5.00 ] Lat E` David 7.8cm/sec [ 10.0 - 25.0 ] RA Volume 48.90 ml Average E/E`15.75 RA Volume Index 22.29 ml/m2 RV S`11.01 cm/sec AoR Diam 2D 2.60 cm [ 3.10 - 3.70 ] Ao Root Index 1.18 cm/m2 [ 1.00 - 2.00 ] Electronically Signed By: Khushi Cordero MD 03/03/2025 3:57:50 PM CDT Bianka WAYNE CV ECHO PROCEDURES Final Result * CT Head WO Contrast (03/03/2025 12:43 PM CDT) Anatomical Region Laterality Modality Head and Neck N/A Computed Tomogra phy 03/03/2025 12:5 1 PM CDT Impressions 03/03/2025 12:51 PM CDT 1. No acute intracranial process. 2. 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 Electronically signed by: Jim Hdz M.D. Narrative 03/03/2025 12:51 PM CDT EXAMINATION: CT head without contrast. HISTORY: Patient is a 69-year-old male with history of headache and fever. TECHNIQUE: Noncontrast CT of the brain was performed with images acquired from skull base to vertex. COMPARISON: MRI of the brain performed on 02/12/[address] the head performed on 02/04/2023. FINDINGS: The subcutaneous neurofibroma within the left temporoparietal scalp is again visible. Accounting for differences in technique, this lesion appears unchanged. A subcutaneous lesion within the right parieto-occipital scalp appears mildly decreased. Mild cerebral and cerebellar volume loss is present. No acute intracranial hemorrhage is identified. The ventricles are of normal size and morphology. No mass effect or midline shift is present. The lucas-white matter differentiation is normal. Atherosclerotic calcifications are present within the cavernous portions of both internal carotid arteries. The visualized portions of the orbits are unremarkable. The visualized portions of the mastoids are normal. The included portions of the paranasal sinuses are normal. No acute fractures are identified. Procedure Note Jim Hdz MD - 03/03/2025 EXAMINATION: CT head without contrast. HISTORY: Patient is a 69-year-old male with history of headache and fever. TECHNIQUE: Noncontrast CT of the brain was performed with images acquired from skull base to vertex. COMPARISON: MRI of the brain performed on 02/12/[address] the head performed on 02/04/2023. FINDINGS: The subcutaneous neurofibroma within the left temporoparietal scalp is again visible. Accounting for differences in technique, this lesion appears unchanged. A subcutaneous lesion within the right parieto-occipital scalp appears mildly decreased. Mild cerebral and cerebellar volume loss is present. No acute intracranial hemorrhage is identified. The ventricles are of normal size and morphology. No mass effect or midline shift is present. The lucas-white matter differentiation is normal. Atherosclerotic calcifications are present within the cavernous portions of both internal carotid arteries. The visualized portions of the orbits are unremarkable. The visualized portions of the mastoids are normal. The included portions of the paranasal sinuses are normal. No acute fractures are identified. IMPRESSION: 1. No acute intracranial process. 2. 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 Electronically signed by: Jim Hdz M.D. Bianka WAYNE IMG CT PROCEDURES Final Result * POCT glucose (03/03/2025 12:01 PM CDT) [facility] Glucose, POC 179 70 - 199 mg/dL Comment: Interpretive Data Glucose is assumed to be non-fasting. Fasting Glucose reference ranges are: 0 - 150 years: 70 mg/dL - 99 mg/dL Current interpretive data was last revised on 2014. POC Device Number [id number] DAVID VIRGENWCH Blood 03/03/2025 12:0 1 PM CDT 03/03/2025 12:01 PM CDT Jae Dave MD LAB POCT ORDERABLES - DEVICE Fin al Result DAVID BJWCH [id number] [facility]. [place] [address] * US Vein Duplex Lower Extremity Bilateral Complete (03/03/2025 11:33 AM CDT) Anatomical Region Laterality Modality Vascular Bilateral Ultrasound 03/03/2025 11:3 8 AM CDT Impressions 03/03/2025 11:38 AM CDT No evidence of deep vein thrombosis of either lower extremity. Dictated by: Sulma Brunner MD The radiology attending physician has personally reviewed this study, and had reviewed and/or edited this written report and agrees with it. Electronically signed by: Shabbir Jett M.D. Narrative 03/03/2025 11:38 AM CDT EXAMINATION: BILATERAL LOWER EXTREMITY VENOUS DOPPLER HISTORY: Bilateral leg swelling. COMPARISON: Bilateral lower extremity Doppler 11/24/2022 TECHNIQUE: Ultrasound examination was performed from the groin to the ankle using lucas scale, duplex color flow, and spectral analysis. The proximal saphenous, common femoral, superficial femoral, popliteal, posterior tibial and peroneal veins were evaluated. Both augmentation and compression maneuvers were performed. FINDINGS: The veins of both legs are normally compressible and augment normally. Normal respiratory variation is identified. Procedure Note Shabbir Jett MD - 03/03/2025 EXAMINATION: BILATERAL LOWER EXTREMITY VENOUS DOPPLER HISTORY: Bilateral leg swelling. COMPARISON: Bilateral lower extremity Doppler 11/24/2022 TECHNIQUE: Ultrasound examination was performed from the groin to the ankle using lucas scale, duplex color flow, and spectral analysis. The proximal saphenous, common femoral, superficial femoral, popliteal, posterior tibial and peroneal veins were evaluated. Both augmentation and compression maneuvers were performed. FINDINGS: The veins of both legs are normally compressible and augment normally. Normal respiratory variation is identified. IMPRESSION: No evidence of deep vein thrombosis of either lower extremity. Dictated by: Sulma Brunner MD The radiology attending physician has personally reviewed this study, and had reviewed and/or edited this written report and agrees with it. Electronically signed by: Shabbir Jett M.D. Bianka WAYNE [facility] US PROCEDURES Final Result * POCT glucose (03/03/2025 8:58 AM CDT) [facility] Signature Glucose, POC 124 70 - 199 mg/dL Comment: Interpretive Data Glucose is assumed to be non-fasting. Fasting Glucose reference ranges are: 0 - 150 years: 70 mg/dL - 99 mg/dL Current interpretive data was last revised on 2014. POC Device Number [id number] [address] [place] [address] Blood 03/03/2025 8:58 AM CDT 03/03/2025 8:58 AM CDT Jae Dave MD LAB POCT ORDERABLES - DEVICE Fin al Result Performing Organization Address [facility] Co de Phone Number DAVID VIRGENCH [address] [address] [facility] Department [employer] [place], [place] [id number] * eGFR (03/03/2025 2:50 AM CDT) eGFR >90 >=60 mL/min/1. 73 [...] interpretive data was last reviewed 2021. Blood 03/03/2025 2:50 AM CDT 03/03/2025 2:54 AM CDT Rosa Camp MD LAB BLOOD ORDERABLES Final Result Performing Organization Address [facility]/ZIP Co de Phone Number DAVID BJWCH [address] [facility]. Department [place] [address] * (ABNORMAL) Differential, auto (03/03/2025 2:50 AM CDT) Neutrophil abs 4.71 1.50 - 6.50 K/cumm Imm gran abs 0.01 0.00 - 0.10 K/cumm DAVID VIRGENW Lymphocyte abs 0.42(L) 0.80 - 3.30 K/cumm [facility] Monocyte abs 0.69 0.20 - 0.80 K/cumm [facility] Eosinophil abs 0.18 0.00 - 0.50 K/cumm DAVID [facility] Basophil abs 0.02 0.00 - 0.10 K/cumm DAVID [facility] Neutrophil pct 78.1 % [facility] Comment: Interpretive Data Percent cell count reference ranges are not reported, since discordance with absolute values may lead to misinterpretation of CBC data. Current Interpretive Data was last revised on 2017. Imm gran pct 0.2 % DAVID [facility] Comment: Interpretive Data Percent cell count reference ranges are not reported, since discordance with absolute values may lead to misinterpretation of CBC data. Current Interpretive Data was last revised on 2017. Lymphocyte pct 7.0 % [facility] Comment: Interpretive Data Percent cell count reference ranges are not reported, since discordance with absolute values may lead to misinterpretation of CBC data. Current Interpretive Data was last revised on 2017. Monocyte pct 11.4 % DAVID [facility] Comment: Interpretive Data Percent cell count reference ranges are not reported, since discordance with absolute values may lead to misinterpretation of CBC data. Current Interpretive Data was last revised on 2017. Eosinophil pct 3.0 % DAVID [facility] Comment: Interpretive Data Percent cell count reference ranges are not reported, since discordance with absolute values may lead to misinterpretation of CBC data. Current Interpretive Data was last revised on 2017. Basophil pct 0.3 % DAVID [facility] Comment: Interpretive Data Percent cell count reference ranges are not reported, since discordance with absolute values may lead to misinterpretation of CBC data. Current Interpretive Data was last revised on 2017. Blood 03/03/2025 2:50 AM CDT 03/03/2025 2:54 AM CDT Rosa Camp MD LAB BLOOD ORDERABLES Final Result [facility] [address] [facility] [place] [address] * (ABNORMAL) CBC with auto differential (03/03/2025 2:50 AM CDT) Pathologist [facility] WBC 6.03 3.80 - 9.90 K/cumm Hgb 11.7(L) 13.0 - 17.5 g/dL CERNER BJW Hct 36.5(L) 38.9 - 50.3 % [facility] BJWCH Plt 114(L) 150 - 400 K/cumm [facility] MPV 10.8 9.1 - 12.3 fL [facility] W RBC 4.48 4.30 - 5.80 M/cumm [facility] WCH MCV 81.5 81.3 - 96.4 fL [facility]CH 26.1(L) 27.1 - 33.3 pg [facility] W MCHC 32.1(L) 32.3 - 35.7 g/dL [facility] RDW CV 16.6(H) 11.1 - 14.9 % [facility] RDW SD 49.4(H) 35.7 - 48.1 fL [facility] NRBC abs 0.00 0.00 - 0.01 K/cumm [facility] Blood 03/03/2025 2:50 AM CDT 03/03/2025 2:54 AM CDT Rosa Camp MD LAB BLOOD ORDERABLES Final Result DAVID VIRGENWCH [address] [facility] Department [place] [address] * (ABNORMAL) Comprehensive metabolic panel (03/03/2025 2:50 AM CDT) Pathologist [facility] Sodium 137 135 - 145 mmol/L Potassium, pl 4.5 3.3 - 4.9 mmol/L CERNER BJWCH Chloride 103 97 - 110 mmol/L CERNER [facility] CO2 23 22 - 32 mmol/L [facility] Anion gap 11 2 - 15 mmol/L [facility] BUN 20 6 - 25 mg/dL [facility]ER [facility] Creatinine 0.90 0.80 - 1.30 mg/dL [facility] Glucose 201(H) 70 - 199 mg/dL [facility] Comment: [...] Calcium 8.8 8.5 - 10.3 mg/dL [facility] Bilirubin, total 0.9 0.1 - 1.2 mg/dL [facility]ER BJ[facility] Protein, pl 6.0(L) 6.5 - 8.5 g/dL C[facility]ER [facility] Albumin 3.4(L) 3.5 - 5.0 g/dL CERNER [facility] Alk phos 904(H) 40 - 130 Units/L [facility] ALT 123(H) 7 - 55 Units/L [facility] AST 79(H) 10 - 50 Units/L [facility] BJWCH Blood 03/03/2025 2:50 AM CDT 03/03/2025 2:54 AM CDT Rosa Camp MD LAB BLOOD ORDERABLES Final Result [facility] [address] [facility]. Department [place] [address] * POCT glucose (03/02/2025 8:51 PM CDT) [facility] Glucose, POC 157 70 - 199 mg/dL Comment: Interpretive Data Glucose is assumed to be non-fasting. Fasting Glucose reference ranges are: 0 - 150 years: 70 mg/dL - 99 mg/dL Current interpretive data was last revised on 2014. POC Device Number [id number] DAVID PEOPLES Blood 03/02/2025 8:51 PM CDT 03/02/2025 8:51 PM CDT Lydia Franco MD LAB POCT ORDERABLES - DE VICE Final Result Performing Organization Address [facility] Phone Number [facility] [address] [place] [address] * POCT glucose (03/02/2025 7:12 PM CDT) Glucose, POC 181 70 - 199 mg/dL Comment: Interpretive Data Glucose is assumed to be non-fasting. Fasting Glucose reference ranges are: 0 - 150 years: 70 mg/dL - 99 mg/dL Current interpretive data was last revised on 2014. POC Device Number [id number] 1 DAVID PEOPLES Blood 03/02/2025 7:12 PM CDT 03/02/2025 7:12 PM CDT Lydia Franco MD LAB POCT ORDERABLES - DE VICE Final Result Performing Organization Address [facility] Phone Number [facility] [address] [place] [address] * (ABNORMAL) POCT glucose (03/02/2025 5:08 PM CDT) Glucose, POC 200(H) 70 - 199 mg/dL Comment: Interpretive Data Glucose is assumed to be non-fasting. Fasting Glucose reference ranges are: 0 - 150 years: 70 mg/dL - 99 mg/dL Current interpretive data was last revised on 2014. POC Device Number [id number] 1 DAVID SWEENEYCH Blood 03/02/2025 5:08 PM CDT 03/02/2025 5:08 PM CDT Lydia Franco MD LAB POCT ORDERABLES - DE VICE Final Result Performing Organization Address [facility] Phone Number DAVID VIRGENCH [phone] [facility]. [facility] [place] [address] * (ABNORMAL) POCT glucose (03/02/2025 11:21 AM CDT) Glucose, POC 208(H) 70 - 199 mg/dL Comment: Interpretive Data Glucose is assumed to be non-fasting. Fasting Glucose reference ranges are: 0 - 150 years: 70 mg/dL - 99 mg/dL Current interpretive data was last revised on 2014. POC Device Number [id number] 1 DAVID VIRGENWROSSANA Blood 03/02/2025 11:2 1 AM CDT 03/02/2025 11:21 AM CDT us Lydia Franco MD LAB POCT ORDERABLES - DE VICE Final Result Performing Organization Address [facility] Phone Number [facility] [address] [facility]. [facility] [place] [address] * POCT glucose (03/02/2025 7:40 AM CDT) Glucose, POC 111 70 - 199 mg/dL Comment: Interpretive Data Glucose is assumed to be non-fasting. Fasting Glucose reference ranges are: 0 - 150 years: 70 mg/dL - 99 mg/dL Current interpretive data was last revised on 2014. POC Device Number [id number] 1 DAVID VIRGENWROSSANA Blood 03/02/2025 7:40 AM CDT 03/02/2025 7:40 AM CDT us Lydia Franco MD LAB POCT ORDERABLES - DE VICE Final Result Performing Organization Address [facility] Phone Number [facility] BJWCH [address] [facility]. [facility] [place] [address] * eGFR (03/02/2025 3:38 AM CDT) eGFR >90 >=60 mL/min/1. 73 [...] interpretive data was last reviewed 2021. Blood 03/02/2025 3:38 AM CDT 03/02/2025 4:12 AM CDT us Rosa Camp MD LAB BLOOD ORDERABLES Final Result [facility] [address] [facility]. Department [place] [address] * (ABNORMAL) Differential, auto (03/02/2025 3:38 AM CDT) Pathologist [facility] Neutrophil abs 2.09 1.50 - 6.50 K/cumm Imm gran abs 0.01 0.00 - 0.10 K/cumm [facility] Lymphocyte abs 0.49(L) 0.80 - 3.30 K/cumm [facility] Monocyte abs 0.61 0.20 - 0.80 K/cumm [facility] Eosinophil abs 0.26 0.00 - 0.50 K/cumm [facility] Basophil abs 0.02 0.00 - 0.10 K/cumm [facility] Neutrophil pct 60.0 % [facility] Comment: Interpretive Data [...] was last revised on 2017. Lymphocyte pct 14.1 % DAVID PEOPLES Comment: Interpretive Data Percent cell count reference ranges are not reported, since discordance with absolute values may lead to misinterpretation of CBC data. Current Interpretive Data was last revised on 2017. Monocyte pct 17.5 % DAVID PEOPLES Comment: Interpretive Data Percent cell count reference ranges are not reported, since discordance with absolute values may lead to misinterpretation of CBC data. Current Interpretive Data was last revised on 2017. Eosinophil pct 7.5 % DAVID PEOPLES Comment: Interpretive Data Percent [...] Data was last revised on 2017. Blood 03/02/2025 3:38 AM CDT 03/02/2025 4:12 AM CDT Rosa Camp MD LAB BLOOD ORDERABLES Final Result DAVID VIRGENWCH [address] [facility]. Department [place] [address] * (ABNORMAL) CBC with auto differential (03/02/2025 3:38 AM CDT) WBC 3.48(L) 3.80 - 9.90 K/cumm Hgb 11.4(L) 13.0 - 17.5 g/dL DAVID PEOPLES Hct 36.6(L) 38.9 - 50.3 % DAVID PEOPLES Plt 106(L) 150 - 400 K/cumm [facility] MPV 10.4 9.1 - 12.3 fL [facility] RBC 4.41 4.30 - 5.80 M/cumm [facility] MCV 83.0 81.3 - 96.4 fL [facility] MCH 25.9(L) 27.1 - 33.3 pg [facility] MCHC 31.1(L) 32.3 - 35.7 g/dL [facility] RDW CV 16.7(H) 11.1 - 14.9 % [facility] RDW SD 50.8(H) 35.7 - 48.1 fL [facility] NRBC abs 0.00 0.00 - 0.01 K/cumm [facility] Blood 03/02/2025 3:38 AM CDT 03/02/2025 4:12 AM CDT Rosa Camp MD LAB BLOOD ORDERABLES Final Result [facility] [address] [facility] Department [place] [address] * (ABNORMAL) Comprehensive metabolic panel (03/02/2025 3:38 AM CDT) Sodium 138 135 - 145 mmol/L Potassium, pl 3.8 3.3 - 4.9 mmol/L [facility] Chloride 102 97 - 110 mmol/L [facility] CO2 27 22 - 32 mmol/L [facility] Anion gap 9 2 - 15 mmol/L [facility] BUN 18 6 - 25 mg/dL [facility] Creatinine 0.80 0.80 - 1.30 mg/dL [facility] Glucose 128 70 - 199 mg/dL [facility] Comment: Interpretive Data Fasting glucose [...] interpretive data was last revised 2022. Calcium 8.7 8.5 - 10.3 mg/dL CERNER BJWCH Bilirubin, total 0.5 0.1 - 1.2 mg/dL [facility] B[facility] Protein, pl 5.7(L) 6.5 - 8.5 g/dL [facility] Albumin 3.2(L) 3.5 - 5.0 g/dL [facility] Alk phos 586(H) 40 - 130 Units/L [facility] ALT 149(H) 7 - 55 Units/L [facility] AST 105(H) 10 - 50 Units/L [facility] Blood 03/02/2025 3:38 AM CDT 03/02/2025 4:12 AM CDT us Rosa Camp MD LAB BLOOD ORDERABLES Final Result DAVID BJWCH [address] [facility]. Department [place] [address] * (ABNORMAL) POCT glucose (03/01/2025 9:04 PM CDT) [facility] Glucose, POC 241(H) 70 - 199 mg/dL Comment: Interpretive Data Glucose is assumed to be non-fasting. Fasting Glucose reference ranges are: 0 - 150 years: 70 mg/dL - 99 mg/dL Current interpretive data was last revised on 2014. POC Device Number [id number] 1 [facility] B[facility]WCH Blood 03/01/2025 9:04 PM CDT 03/01/2025 9:04 PM CDT Lydia Franco MD LAB POCT ORDERABLES - DE VICE Final Result DAVID BJWCH [id number] [employer] [facility] [place] [address] * POCT glucose (03/01/2025 5:50 PM CDT) Glucose, POC 87 70 - 199 mg/dL Comment: Interpretive Data Glucose is assumed to be non-fasting. Fasting Glucose reference ranges are: 0 - 150 years: 70 mg/dL - 99 mg/dL Current interpretive data was last revised on 2014. POC Device Number [id number] 1 DAVID PEOPLES Blood 03/01/2025 5:50 PM CDT 03/01/2025 5:50 PM CDT Lydia Franco MD LAB POCT ORDERABLES - DE VICE Final Result Performing Organization Address [facility] de Phone Number KRISTENNER BJWCH [phone] [place] [employer] [facility] [place] [address] * (ABNORMAL) POCT glucose (03/01/2025 11:36 AM CDT) Pathologist [facility] Glucose, POC 204(H) 70 - 199 mg/dL Comment: Interpretive Data Glucose is assumed to be non-fasting. Fasting Glucose reference ranges are: 0 - 150 years: 70 mg/dL - 99 mg/dL Current interpretive data was last revised on 2014. POC Device Number [id number] 1 DAVID PEOPLES Blood 03/01/2025 11:3 6 AM CDT 03/01/2025 11:36 AM CDT Lydia Franco MD LAB POCT ORDERABLES - DE VICE Final Result Performing Organization Address [facility] Co de Phone Number KRISTENNER BJWCH [address] [facility] [place] [address] * C. difficile testing Stool (03/01/2025 10:10 AM CDT) [facility] Result Positive Negative Comment:Testing performed by : [facility], [address] [place] [address]., [id number] Toxin Result Negative Negative DAVID PEOPLES Comment:Testing performed by : [facility], [address] [place] [address]., [id number] C. diff result Negative, free toxin. Negative, free toxin DAVID PEOPLES Comment:Testing performed by : [facility], [address] [place] [address]., [id number] C. diff interp GDH+/toxin- results almost never represent true C. difficile infection (CDI). Results may represent colonization with C. difficile without CDI, detection of a bacteria other than toxigenic C. difficile, or a false negative toxin assay. If there is a high index of suspicion for CDI, additional testing by PCR is available upon request. DAVID PEOPLES Comment:Testing performed by : [facility], [address] [place] [address]., [id number] Stool 03/01/2025 10:1 0 AM CDT 03/01/2025 12:12 PM CDT Rosa Camp MD LAB MICROBIOLOGY - GENERAL ORDERABLES Final Result KRISTENPETAR PARAMAnna [address] [facility] Department of Laboratories [place], [place] [id number] * Norovirus PCR Stool (03/01/2025 10:10 AM CDT) Norovirus GI RNA Not Detected Not Detected [facility] Comment:Testing performed by : [facility], [address] [place]., [address] Norovirus GII RNA Not Detected Not Detected DAVID PEOPLES Comment: Interpretive data: Testing performed at the [facility] Laboratory using the Immunome Xpert Norovirus Assay. This assay uses nucleic acid amplification to detect RNA from norovirus. This test is cleared by the [place] Food and Drug Administration for unformed stool specimens. The performance characteristics for unformed stool specimens have been verified by the performing laboratory. The performance characteristics of rectal swab specimens have also been validated and verified by the performing laboratory. Positive Xpert Norovirus results do not rule out other causes of infectious diarrhea. Assay interference may be observed in the presence of Barium sulfate and Benzalkonium chloride. Mutations or polymorphisms in primer or probe binding regions may affect detection of new or unknown norovirus variants resulting in a false negative result. Results from the Xpert Norovirus Assay should be interpreted in conjunction with other laboratory and clinical data available to the clinician. Current interpretive data was last revised on 2024. Testing performed by: [facility], [address] [place]., [address] Stool 03/01/2025 10:1 0 AM CDT 03/01/2025 2:08 PM CDT Rosa Camp MD LAB MICROBIOLOGY - GENERAL ORDERABLES Final Result [facility] [address] [facility] [place] [address] [facility] * (ABNORMAL) MRSA Only (Staphylococcus aureus) PCR Nasal (03/01/2025 10:10 AM CDT) [facility] PCR Scrn, Methicillin resistant Staphylococcus aureus (MRSA) Detected( C) Not Detected Comment: Critical result called to and read back by ALOK GARG (SERVICES PROGRAM MANAGER) on 03/01/2025 14:59:19 CDT to [id number]. Interpretive Data Testing performed using Nucleic Acid Amplification with the [employer]ep[employer]rike[employer] Xpert MRSA NxG Assay. This assay detects target DNA from mecA, mecC and the SCCmec insertion site of Staphylococcus aureus using Real-Time PCR and has been cleared by the FDA. Performance characteristics have been verified by the [facility]. Current Interpretive Data was last revised on 2023 Testing performed by: [facility], [address] [place] [address]., [id number] Nasal 03/01/2025 10:1 0 AM CDT 03/01/2025 11:03 AM CDT Lydia Franco MD LAB MICROBIOLOGY - GENER AL ORDERABLES Final Result Performing Organization Address [facility] Co de Phone Number DAVID BJWCH [address] [facility] [place] [address] * Stool culture Stool Rectum (03/01/2025 10:10 AM CDT) Direct Specimen Exam Shiga Toxin Testing: Negative for: Shigatoxin of enterohemorrhagic E.coli. Comment:Testing performed by : [facility], [address] [place] [address]., [id number] Report Final Report: No Salmonella, Shigella, Aeromonas, Plesiomonas, Yersinia, Campylobacter, or E.coli O157:H7 isolated DAVID SWEENEY Comment:Testing performed by : [facility], [address] [place] [address]., [id number] Stool (Rectum) 03/01/2025 10 :10 AM CDT 03/01/2025 12:12 PM CDT Narrative [facility] - 03/04/2025 2:00 PM CDT This specimen is screened for the presence of Aeromonas, Campylobacter, E.coli-0157:H7, Plesiomonas, Salmonella, Shigella, Shiga Toxin producing E. coli, and Yersinia. Rosa Camp MD LAB MICROBIOLOGY - GENERAL ORDERABLES Final Result Performing Organization Address [facility] Co de Phone Number DAVID BJWCH [address] [facility] [place] [address] * POCT glucose (03/01/2025 8:13 AM CDT) Glucose, POC 78 70 - 199 mg/dL Comment: Interpretive Data Glucose is assumed to be non-fasting. Fasting Glucose reference ranges are: 0 - 150 years: 70 mg/dL - 99 mg/dL Current interpretive data was last revised on 2014. POC Device Number [id number] 1 DAVID PEOPLES Blood 03/01/2025 8:13 AM CDT 03/01/2025 8:13 AM CDT Lydia Franco MD LAB POCT ORDERABLES - DE VICE Final Result Performing Organization Address [facility] Phone Number DAVID BJWCH [address] [facility] [place] [address] * POCT glucose (03/01/2025 7:41 AM CDT) [facility] Signature Glucose, POC 83 70 - 199 mg/dL Comment: Interpretive Data Glucose is assumed to be non-fasting. Fasting Glucose reference ranges are: 0 - 150 years: 70 mg/dL - 99 mg/dL Current interpretive data was last revised on 2014. POC Device Number [id number] 1 DAVID PEOPLES Blood 03/01/2025 7:41 AM CDT 03/01/2025 7:41 AM CDT Lydia Franco MD LAB POCT ORDERABLES - DE VICE Final Result Performing Organization Address [facility] Phone Number DAVID BJWCH [address] [facility] [place] [address] * US RUQ (03/01/2025 7:35 AM CDT) Anatomical Region Laterality Modality Abdomen N/A Ultrasound 03/01/2025 8:44 AM CDT Impressions 03/01/2025 8:44 AM CDT 1. Findings suggestive of hepatic parenchymal disease to include early cirrhosis without focal lesion identified. 2. Pneumobilia and postoperative changes of cholecystectomy. Electronically signed by: Jose Bustillo M.D. Narrative 03/01/2025 8:44 AM CDT EXAMINATION: LIMITED ABDOMINAL SONOGRAM HISTORY: Elevated liver function tests. COMPARISON: Abdominopelvic CT dated 02/28/2025. Abdominal MRI MRCP dated 01/21/2025. FINDINGS: Liver: The liver is normal in size. The echotexture is coarse. The echogenicity is increased. There is surface nodularity. No focal lesions are identified. Increased echogenicity is noted within the biliary system consistent with known pneumobilia. Gallbladder: The gallbladder is surgically absent. No abnormality within the gallbladder fossa is identified. Bile Duct: There is no intrahepatic bile duct dilatation. The diameter of the common duct is 11 mm in the proximal segment and 4 mm in the mid segment and 11 mm in the distal segment. Right Kidney: There is no hydronephrosis in the visualized portions of the right kidney. Pancreas: The visualized portions of the pancreas demonstrate no focal lesions. Inferior vena cava: The proximal IVC is normal. Other Findings: There is no ascites. Procedure Note Jose Bustillo MD - 03/01/2025 EXAMINATION: LIMITED ABDOMINAL SONOGRAM HISTORY: Elevated liver function tests. COMPARISON: Abdominopelvic CT dated 02/28/2025. Abdominal MRI MRCP dated 01/21/2025. FINDINGS: Liver: The liver is normal in size. The echotexture is coarse. The echogenicity is increased. There is surface nodularity. No focal lesions are identified. Increased echogenicity is noted within the biliary system consistent with known pneumobilia. Gallbladder: The gallbladder is surgically absent. No abnormality within the gallbladder fossa is identified. Bile Duct: There is no intrahepatic bile duct dilatation. The diameter of the common duct is 11 mm in the proximal segment and 4 mm in the mid segment and 11 mm in the distal segment. Right Kidney: There is no hydronephrosis in the visualized portions of the right kidney. Pancreas: The visualized portions of the pancreas demonstrate no focal lesions. Inferior vena cava: The proximal IVC is normal. Other Findings: There is no ascites. IMPRESSION: 1. Findings suggestive of hepatic parenchymal disease to include early cirrhosis without focal lesion identified. 2. Pneumobilia and postoperative changes of cholecystectomy. Electronically signed by: Jose Bustillo M.D. Rosa Camp MD [facility] US PROCEDURES Final Re sult * eGFR (03/01/2025 5:59 AM CDT) eGFR >90 >=60 mL/min/1. 73 [...] interpretive data was last reviewed 2021. Blood 03/01/2025 5:59 AM CDT 03/01/2025 5:59 AM CDT Rosa Camp MD LAB BLOOD ORDERABLES Final Result [facility] [address] [facility]. Department of Laboratories [place], [place] [id number] * (ABNORMAL) Differential, auto (03/01/2025 5:59 AM CDT) Pathologist [facility] [place] Neutrophil abs 3.84 1.50 - 6.50 K/cumm Imm gran abs 0.01 0.00 - 0.10 K/cumm [facility] Lymphocyte abs 0.47(L) 0.80 - 3.30 K/cumm [facility] Monocyte abs 0.61 0.20 - 0.80 K/cumm [facility] Eosinophil abs 0.17 0.00 - 0.50 K/cumm [facility] Basophil abs 0.02 0.00 - 0.10 K/cumm [facility] Neutrophil pct 75.0 % [facility] Comment: Interpretive Data Percent cell count reference ranges are not reported, since discordance with absolute values may lead to misinterpretation of CBC data. Current Interpretive Data was last revised on 2017. Imm gran pct 0.2 % DAVID PEOPLES Comment: Interpretive Data Percent cell count reference ranges are not reported, since discordance with absolute values may lead to misinterpretation of CBC data. Current Interpretive Data was last revised on 2017. Lymphocyte pct 9.2 % DAVID PEOPLES Comment: Interpretive Data Percent cell count reference ranges are not reported, since discordance with absolute values may lead to misinterpretation of CBC data. Current Interpretive Data was last revised on 2017. Monocyte pct 11.9 % DAVID PEOPLES Comment: Interpretive Data Percent cell count reference ranges are not reported, since discordance with absolute values may lead to misinterpretation of CBC data. Current Interpretive Data was last revised on 2017. Eosinophil pct 3.3 % DAVID PEOPLES Comment: Interpretive Data Percent [...] Data was last revised on 2017. Blood 03/01/2025 5:59 AM CDT 03/01/2025 5:59 AM CDT Rosa Camp MD LAB BLOOD ORDERABLES Final Result Performing Organization Address City/State/[facility] Co de Phone Number [facility] [address] [facility]. Department [place] [address] * (ABNORMAL) CBC with auto differential (03/01/2025 5:59 AM CDT) WBC 5.12 3.80 - 9.90 K/cumm Hgb 11.4(L) 13.0 - 17.5 g/dL DAVID PEOPLES Hct 35.4(L) 38.9 - 50.3 % DAVID PEOPLES Plt 107(L) 150 - 400 K/cumm DAVID PEOP[facility] Comment:No clot detected in sample. MPV 11.0 9.1 - 12.3 fL [facility] RBC 4.29(L) 4.30 - 5.80 M/cumm [facility] MCV 82.5 81.3 - 96.4 fL [facility] MCH 26.6(L) 27.1 - 33.3 pg [facility] MCHC 32.2(L) 32.3 - 35.7 g/dL [facility] RDW CV 16.7(H) 11.1 - 14.9 % [facility] RDW SD 49.8(H) 35.7 - 48.1 fL [facility] NRBC abs 0.00 0.00 - 0.01 K/cumm [facility] Blood 03/01/2025 5:59 AM CDT 03/01/2025 5:59 AM CDT Rosa Camp MD LAB BLOOD ORDERABLES Final Result Performing Organization Address [facility] Co de Phone Number DAVID SWEENEYCH [phone] [place] [address] * (ABNORMAL) Erythrocyte sedimentation rate (03/01/2025 5:59 AM CDT) Pathologist [facility] [place] Erythrocyte sedimentation rate 37(H) 1 - 20 mm/hr Blood 03/01/2025 5:59 AM CDT 03/01/2025 5:59 AM CDT Rosa Camp MD LAB BLOOD ORDERABLES Final Result Performing Organization Address [facility] Co de Phone Number DAVID V[facility]GENW[facility] [phone] [facility] [place] [address] * (ABNORMAL) CRP (acute phase) (03/01/2025 5:59 AM CDT) Pathologist [facility] [place] CRP 71.2(H) <=10.0 mg/L Blood 03/01/2025 5:59 AM CDT 03/01/2025 5:59 AM CDT us Rosa Camp MD LAB BLOOD ORDERABLES Final Result DAVID PEOPLES [id number] [facility]. Department [place] [address] * (ABNORMAL) Comprehensive metabolic panel (03/01/2025 5:59 AM CDT) Sodium 141 135 - 145 mmol/L Potassium, pl 3.7 3.3 - 4.9 mmol/L [facility] Chloride 105 97 - 110 mmol/L [facility] CO2 26 22 - 32 mmol/L [facility] Anion gap 10 2 - 15 mmol/L [facility] BUN 19 6 - 25 mg/dL [facility] Creatinine 0.84 0.80 - 1.30 mg/dL [facility] Glucose 75 70 - 199 mg/dL [facility] Comment: [...] interpretive data was last revised 2022. Calcium 8.7 8.5 - 10.3 mg/dL [facility] Bilirubin, total 1.0 0.1 - 1.2 mg/dL [facility] Protein, pl 6.2(L) 6.5 - 8.5 g/dL [facility] Albumin 3.7 3.5 - 5.0 g/dL [facility] Alk phos 601(H) 40 - 130 Units/L [facility] ALT 196(H) 7 - 55 Units/L [facility] AST 185(H) 10 - 50 Units/L [facility] Blood 03/01/2025 5:59 AM CDT 03/01/2025 5:59 AM CDT Rosa Camp MD LAB BLOOD ORDERABLES Final Result Performing Organization Address [facility] Co de Phone Number DAVID [facility] [phone] [facility] [place] [address] * POCT glucose (03/01/2025 4:20 AM CDT) [facility] Signature Glucose, POC 102 70 - 199 mg/dL Comment: Interpretive Data Glucose is assumed to be non-fasting. Fasting Glucose reference ranges are: 0 - 150 years: 70 mg/dL - 99 mg/dL Current interpretive data was last revised on 2014. POC Device Number [id number] [facility] Blood 03/01/2025 4:20 AM CDT 03/01/2025 4:20 AM CDT Rosa Camp MD LAB POCT ORDERABLES - ALESSIO CE Final Result Performing Organization Address [facility] Co va Phone Number DAVID VIRGENWCH [phone] [facility] [place] [address] * XR Chest Pa Lateral 2 Vw (03/01/2025 3:01 AM CDT) Anatomical Region Laterality Modality Body, Chest N/A Computed Radiogr aphy 03/01/2025 8:24 AM CDT Impressions 03/01/2025 8:24 AM CDT No acute cardiopulmonary abnormality. Electronically signed by: Jose Bustillo M.D. Narrative 03/01/2025 8:24 AM CDT EXAM: XR CHEST PA LATERAL 2 VIEWS CLINICAL HISTORY: Infectious workup COMPARISON: Chest radiograph dated 01/21/2025. CT of the chest dated 01/19/2025. FINDINGS: Right internal jugular approach port catheter tip overlies the cavoatrial junction. 2-lead pacer defibrillator device with the leads overlying the right atrium and right ventricle. Unchanged mild cardiomegaly. Partially calcified left hilar lymph node. The lungs are clear. No focal consolidation, pleural effusion or pneumothorax. The visualized osseous structures are unremarkable. Procedure Note Jose Bustillo MD - 03/01/2025 EXAM: XR CHEST PA LATERAL 2 VIEWS CLINICAL HISTORY: Infectious workup COMPARISON: Chest radiograph dated 01/21/2025. CT of the chest dated 01/19/2025. FINDINGS: Right internal jugular approach port catheter tip overlies the cavoatrial junction. 2-lead pacer defibrillator device with the leads overlying the right atrium and right ventricle. Unchanged mild cardiomegaly. Partially calcified left hilar lymph node. The lungs are clear. No focal consolidation, pleural effusion or pneumothorax. The visualized osseous structures are unremarkable. IMPRESSION: No acute cardiopulmonary abnormality. Electronically signed by: Jose Bustillo M.D. us Jorge L Garcia MD IMG XR PROCEDURES Final Result * Blood culture Blood (03/01/2025 2:43 AM CDT) Report Final Report: No growth Comment:Testing performed by : [facility], [facility] [facility], [place]., [address] Blood 03/01/2025 2:43 AM CDT 03/01/2025 7:08 AM CDT Angi HERNANDEZ [facility] - 03/06/2025 1:00 PM CDT Collection->Peripheral Interpretive Data 1. Blood cultures are incubated and monitored continuously for 5 days (120 hours). The first negative report is issued within 24 hours of receipt in the laboratory. 2. All positive cultures are resulted and called to physicians/care providers as soon as they are detected. 3. A rapid molecular test for organism identification may be performed using the [employer] Blood Culture Identification panel. This assay detects microbial DNA in a blood culture broth. This assay has been cleared by the [place] Food and Drug Administration and its performance characteristics have been verified by the [facility]. Interpretive data was last revised on August 03, 2022. us Jorge L Garcia MD LAB MICROBIOLOGY - GENERAL ORDER JOSE LUIS Final Result Performing Organization Address [facility] de Phone Number DAVID [facility] [phone] [address] [facility] [place] [address] * Blood culture Blood (03/01/2025 2:43 AM CDT) Report Final Report: No growth Comment:Testing performed by : [facility], [address] [place] [address]., [id number] Blood 03/01/2025 2:43 AM CDT 03/01/2025 7:08 AM CDT Narrative DAVID PEOPLES - 03/06/2025 1:00 PM CDT Collection->Peripheral Interpretive Data 1. Blood cultures are incubated and monitored continuously for 5 days (120 hours). The first negative report is issued within 24 hours of receipt in the laboratory. 2. All positive cultures are resulted and called to physicians/care providers as soon as they are detected. 3. A rapid molecular test for organism identification may be performed using the [employer] Blood Culture Identification panel. This assay detects microbial DNA in a blood culture broth. This assay has been cleared by the [place] Food and Drug Administration and its performance characteristics have been verified by the [facility]. Interpretive data was last revised on August 03, 2022. us Jorge L Garcia MD LAB MICROBIOLOGY - GENERAL ORDER JOSE LUIS Final Result Performing Organization Address [facility] Co de Phone Number DAVID VIRGENWCH [phone] [place] [address] * Mononucleosis screen (03/01/2025 1:09 AM CDT) Elliott Screen Negative Negative Comment: Interpretive Data Heterophile antibodies are short-lived. Therefore, a positive test is consistent with recent infection. Heterophile antibodies fail to develop in approximately 15% of adults and in a higher percentage of children. Cindy-Zaman virus specific serology (IgG and IgM) testing should be performed to exclude disease in patients with a negative antibody test. Current interpretive data was last revised on 2022. Blood 03/01/2025 1:09 AM CDT 03/01/2025 1:15 AM CDT us Jorge L Garcia MD LAB BLOOD ORDERABLES Final Resul t Performing Organization Address [facility] Co de Phone Number DAVID VIRGENWCH [phone] [facility] [address] [place], [place] [id number] * POCT glucose (03/01/2025 12:27 AM CDT) [facility] Signature Glucose, POC 130 70 - 199 mg/dL Comment: Interpretive Data Glucose is assumed to be non-fasting. Fasting Glucose reference ranges are: 0 - 150 years: 70 mg/dL - 99 mg/dL Current interpretive data was last revised on 2014. POC Device Number [id number] [facility] Blood 03/01/2025 12:2 7 AM CDT 03/01/2025 12:27 AM CDT us Jorge L Garcia MD LAB POCT ORDERABLES - DEVICE Fin al Result Performing Organization Address [facility] Phone Number DAVID VIRGENWCH [phone] [facility] [place] [address] * CT Abdomen Pelvis W Contrast (02/28/2025 11:41 PM CDT) Anatomical Region Laterality Modality Body N/A Computed Tomogra phy 03/01/2025 12:2 4 AM CDT Impressions 03/01/2025 12:24 AM CDT 1. No evidence of inflammatory change or fluid collection in the area of the recently removed sacral nerve stimulator 2. Unchanged bladder wall thickening, which may represent cystitis or be related to chronic bladder outlet obstruction. 3. Unchanged small exophytic left renal lesion with indeterminate density. 4. Fat-containing periumbilical hernia. Electronically signed by: Gene Barber M.D. Narrative 03/01/2025 12:24 AM CDT EXAMINATION: Computed tomography of the abdomen and pelvis with intravenous contrast HISTORY: 69-year-old male with a history of pancreatic cancer for evaluation of pelvic abscess TECHNIQUE: Transaxial computed tomographic images of the [...] procedure. Scattered calcifications in the liver and spleen from old granulomatous disease.. No suspicious hepatic lesions. The main portal [...] gland. The kidneys enhance symmetrically without hydronephrosis. Unchanged 13 mm mid anterior left renal lesion. There are multiple small [...] lymph nodes. No suspicious osseous lesions. There has been removal of the right-sided sacral nerve stimulator with no residual soft tissue fluid collection or inflammatory collection.. Small fat-containing periumbilical hernia. Procedure Note Gene Barber MD - 03/01/2025 EXAMINATION: Computed tomography of the abdomen and pelvis with intravenous contrast HISTORY: 69-year-old male with a history of pancreatic cancer for evaluation of pelvic abscess TECHNIQUE: Transaxial computed tomographic images of the [...] procedure. Scattered calcifications in the liver and spleen from old granulomatous disease.. No suspicious hepatic lesions. The main portal [...] gland. The kidneys enhance symmetrically without hydronephrosis. Unchanged 13 mm mid anterior left renal lesion. There are multiple small [...] lymph nodes. No suspicious osseous lesions. There has been removal of the right-sided sacral nerve stimulator with no residual soft tissue fluid collection or inflammatory collection.. Small fat-containing periumbilical hernia. IMPRESSION: 1. No evidence of inflammatory change or fluid collection in the area of the recently removed sacral nerve stimulator 2. Unchanged bladder wall thickening, which may represent cystitis or be related to chronic bladder outlet obstruction. 3. Unchanged small exophytic left renal lesion with indeterminate density. 4. Fat-containing periumbilical hernia. Electronically signed by: Gene Barber M.D. us Arabella S. Cobb-Vannesa GAS CUTTER IMG CT PROCEDURES Fi nal Result * eGFR (02/28/2025 10:21 PM CDT) Pathologist [facility] eGFR >90 >=60 [...] interpretive data was last reviewed 2021. Blood 02/28/2025 10:2 1 PM CDT 02/28/2025 10:26 PM CDT us Arabella Roblero G[employer] C[employer]TER LAB BLOOD ORDERABLES Final Result [facility] [id number] [facility]. Department [place] [address] * (ABNORMAL) Differential, auto (02/28/2025 10:21 PM CDT) Pathologist [facility] [place] Neutrophil abs 6.15 1.50 - 6.50 K/cumm Imm gran abs 0.04 0.00 - 0.10 K/cumm [facility] Lymphocyte abs 0.43(L) 0.80 - 3.30 K/cumm [facility] Monocyte abs 0.69 0.20 - 0.80 K/cumm [facility] Eosinophil abs 0.06 0.00 - 0.50 K/cumm [facility] Basophil abs 0.02 0.00 - 0.10 K/cumm DAVID PEOPLES Neutrophil pct 83.3 % DAVID PEOPLES Comment: Interpretive Data Percent cell count reference ranges are not reported, since discordance with absolute values may lead to misinterpretation of CBC data. Current Interpretive Data was last revised on 2017. Imm gran pct 0.5 % DAVID PEOLPES Comment: Interpretive Data Percent cell count reference ranges are not reported, since discordance with absolute values may lead to misinterpretation of CBC data. Current Interpretive Data was last revised on 2017. Lymphocyte pct 5.8 % DAVID PEOPLES Comment: Interpretive Data Percent cell count reference ranges are not reported, since discordance with absolute values may lead to misinterpretation of CBC data. Current Interpretive Data was last revised on 2017. Monocyte pct 9.3 % DAVID PEOPLES Comment: Interpretive Data Percent cell count reference ranges are not reported, since discordance with absolute values may lead to misinterpretation of CBC data. Current Interpretive Data was last revised on 2017. Eosinophil pct 0.8 % DAVID PEOPLES Comment: Interpretive Data Percent cell count reference ranges are not reported, since discordance with absolute values may lead to misinterpretation of CBC data. Current Interpretive Data was last revised on 2017. Basophil pct 0.3 % DAVID PEOPLES Comment: Interpretive Data Percent cell count reference ranges are not reported, since discordance with absolute values may lead to misinterpretation of CBC data. Current Interpretive Data was last revised on 2017. Blood 02/28/2025 10:2 1 PM CDT 02/28/2025 10:26 PM CDT us Arabella Roblero G[employer]TER LAB BLOOD ORDERABLES Final Result [facility] [address] [facility]. [place] [address] * (ABNORMAL) CBC with auto differential (02/28/2025 10:21 PM CDT) WBC 7.39 3.80 - 9.90 K/cumm Hgb 11.8(L) 13.0 - 17.5 g/dL [facility] Hct 36.7(L) 38.9 - 50.3 % [facility] Plt 119(L) 150 - 400 [facility] Comment:No clot detected in sample. MPV 10.5 9.1 - 12.3 fL [facility] RBC 4.52 4.30 - 5.80 M/cumm [facility] MCV 81.2(L) 81.3 - 96.4 fL [facility] MCH 26.1(L) 27.1 - 33.3 pg [facility] MCHC 32.2(L) 32.3 - 35.7 g/dL [facility] RDW CV 16.7(H) 11.1 - 14.9 % [facility] RDW SD 48.8(H) 35.7 - 48.1 fL [facility] NRBC abs 0.00 0.00 - 0.01 K/cumm [facility] Blood 02/28/2025 10:2 1 PM CDT 02/28/2025 10:26 PM CDT us Arabella Roblero G[employer] C[employer]TER LAB BLOOD ORDERABLES Final Result [facility] [address] [facility]. Department [place] [address] * (ABNORMAL) Comprehensive metabolic panel (02/28/2025 10:21 PM CDT) [facility] Sodium 139 135 - 145 mmol/L Potassium, pl 4.0 3.3 - 4.9 mmol/L [facility] Chloride 103 97 - 110 mmol/L [facility] CO2 24 22 - 32 mmol/L [facility] Anion gap 12 2 - 15 mmol/L [facility] BUN 18 6 - 25 mg/dL [facility] Creatinine 0.80 0.80 - 1.30 mg/dL [facility] Glucose 133 70 - 199 mg/dL [facility] Comment: Interpretive Data Fasting glucose [...] 2022. Calcium 8.6 8.5 - 10.3 mg/dL [facility] Bilirubin, total 0.9 0.1 - 1.2 mg/dL [facility] Protein, pl 6.3(L) 6.5 - 8.5 g/dL [facility] Albumin 3.7 3.5 - 5.0 g/dL [facility] Alk phos 684(H) 40 - 130 Units/L [facility] ALT 221(H) 7 - 55 Units/L [facility] AST 241(H) 10 - 50 Units/L [facility] Blood 02/28/2025 10:2 1 PM CDT 02/28/2025 10:26 PM CDT us Arabella Roblero G[employer] C[employer]TER LAB BLOOD ORDERABLES Final Result DAVID SWEENEY [address] [facility]. Department [place] [address] * POCT glucose (02/28/2025 9:56 PM CDT) [facility] Signature Glucose, POC 136 70 - 199 mg/dL Comment: Interpretive Data Glucose is assumed to be non-fasting. Fasting Glucose reference ranges are: 0 - 150 years: 70 mg/dL - 99 mg/dL Current interpretive data was last revised on 2014. POC Device Number [id number] CERPETAR [facility]IR[facility]W Blood 02/28/2025 9:56 PM CDT 02/28/2025 9:56 PM CDT us Notinfile Unknown LAB POCT ORDERABLES - DEVICE F inal Result Performing Organization Address [facility] de Phone Number [facility] [id number] [address] [facility] [place] [address] * Influenza A/B, RSV, and COVID-19 PCR Nasopharyngeal (02/28/2025 8:27 PM CDT) COVID-19 RNA Negative Negative Influenza A RNA Negative Negative [facility] Influenza B RNA Negative Negative [facility] RSV RNA Negative Negative [facility] Comment: Testing performed by [facility]. This test is performed using the [employer] Xpert Xpress CoV-2/Flu/RSV plus assay. This is a multiplex, real-time reverse transcriptase PCR assay intended for the qualitative detection of nucleic acid from SARS-CoV-2, influenza A, influenza B, and respiratory syncytial virus. This assay has been cleared by the [place] Food and Drug administration. The performance characteristics have been verified by the [facility]. Results must be considered in the clinical context, and a negative result does not rule out infection. Interpretive Data last revised 2023 Nasopharyngeal 02/28/2025 8: 27 PM CDT 02/28/2025 8:27 PM CDT Narrative [facility] - 02/28/2025 9:05 PM CDT Is the Patient experiencing symptoms consistent with COVID?->Yes Jorge L Garcia MD LAB MICROBIOLOGY - GENERAL ORDER JOSE LUIS Final Result Performing Organization Address [facility] de Phone Number DAVID VIRGENWCH [address] [employer] Department [place] [address] * (ABNORMAL) Urinalysis reflex to microscopic and culture Urine (02/28/2025 8:27 PM CDT) Color, ur Straw Yellow Clarity, ur Clear Clear [facility]ID [facility] Specific gravity, ur 1.008 1.003 - 1.030 [facility] pH, urine 6.0 [facility] Comment: Interpretive Data U rine pH is affected by diet, medications, systemic acid-base disturbances, and renal tubular function. pH may affect urinary stone formation. For example, urine pH below 6.0 may help reduce the tendency for calcium phosphate stones and pH greater than 6.0 may reduce the tendency for uric acid stone formation. Source: [facility] Current Interpretive Data was last revised on 2017 Protein, ur ql Negative Negative [facility] Glucose, ur ql Negative Negative [facility] Ketones, ur Negative Negative [facility] Bilirubin, ur Negative Negative [facility] Blood, ur Trace(A) Negative [facility] Urobilinogen, ur <2.0 <2.0 mg/dL [facility] Nitrite, ur Negative Negative [facility] Leukocyte esterase, ur Negative Negative [facility] UA reflex comment Reflex to microscopic UA will be performed. DAVID SWEENEY Urine 02/28/2025 8:27 PM CDT 02/28/2025 8:27 PM CDT Jorge L Garcia MD LAB MICROBIOLOGY - GENERAL ORDER JOSE LUIS Final Result [facility] [id number] [facility] Department [place] [address] * Respiratory pathogen panel Nasopharyngeal (02/28/2025 8:27 PM CDT) Influenza A RNA Not Detected Not Detected [facility] Comment:Testing performed by : [facility], [address] [place] [address]., [id number] Influenza B RNA Not Detected Not Detected [facility] Comment:Testing performed by : [facility], [address] [place] [address]., [id number] RSV RNA Not Detected Not Detected [facility] Comment:Testing performed by : [facility], [address] [place] [address]., [id number] COVID-19 RNA Not Detected Not Detected [facility] Comment:Testing performed by : [facility], [address] [place] [address]., [id number] Coronavirus 229E RNA Not Detected Not Detected [facility] Comment:Testing performed by : [facility], [address] [place] [address]., [id number] Coronavirus HKU1 RNA Not Detected Not Detected [facility] Comment:Testing performed by : [facility], [address] [place] [address]., [id number] Coronavirus NL63 RNA Not Detected Not Detected [facility] Comment:Testing performed by : [facility], [address] [place] [address]., [id number] Coronavirus OC43 RNA Not Detected Not Detected [facility] Comment:Testing performed by : [facility], [address] [place] [address]., [id number] Adenovirus DNA Not Detected Not Detected [facility] Comment:Testing performed by : [facility], [address] [place] [address]., [id number] Metapneumovirus RNA Not Detected Not Detected [facility] Comment:Testing performed by : [facility], [address] [place] [address]., [id number] Rhinovirus/Enterov irus RNA Not Detected Not Detected CERNER [facility] Comment:Testing performed by : [facility], [address] [place] [address]., [id number] Parainfluenza 1 RNA Not Detected Not Detected CERNER [facility] Comment:Testing performed by : [facility], [address] [place] [address]., [id number] Parainfluenza 2 RNA Not Detected Not Detected CERNER [facility] Comment:Testing performed by : [facility], [address] [place] [address]., [phone] Parainfluenza 3 RNA Not Detected Not Detected CERNER [facility] Comment:Testing performed by : [facility], [address] [place] [address]., [id number] Parainfluenza 4 RNA Not Detected Not Detected CERNER [facility] Comment:Testing performed by : [facility], [address] [place] [address]., [phone] B. pertussis DNA Not Detected Not Detected CERNER [facility] Comment:Testing performed by : [facility], [facility] [place]., [address] B. parapertussis DNA Not Detected Not Detected [facility] Comment:Testing performed by : [facility], [facility] [place]., [address] C. pneumoniae DNA Not Detected Not Detected [facility] Comment:Testing performed by : [facility], [address] [place] [address]., [phone] M. pneumoniae DNA Not Detected Not Detected [facility] Comment: Interpretive Data The [employer] FilmArray Respiratory Panel (RP2.1) assay is a [...] assay has FDA clearance for testing of GAS CUTTER swabs. The performance characteristics of this assay have been determined by [facility]. Current interpretive data was last revised on 2021. Testing performed by: [facility], [address] [place] [address], [place]., [address] Nasopharyngeal 02/28/2025 8: 27 PM CDT 03/01/2025 3:00 AM CDT us Jorge L Garcia MD LAB MICROBIOLOGY - GENERAL ORDER JOSE LUIS Final Result Performing Organization Address [facility] de Phone Number DAVID [facility] [address] [address] [employer] [place], [place] [phone] MBC * (ABNORMAL) Urinalysis, microscopic only (02/28/2025 8:27 PM CDT) WBC, ur 0-5 0 - 5 /HPF RBC, ur 0-2 0 - 2 /HPF DAVID BJWROSSANA Mucous, ur Present(A) DAVID [facility] Culture Reflex Comment Reflex conditions for urine culture (WBC >10) not met. DAVID SWEENEY Urine 02/28/2025 8:27 PM CDT 02/28/2025 8:27 PM CDT us Jorge L Garcia MD LAB URINE ORDERABLES Final Resul t Performing Organization Address [facility] Co de Phone Number [facility] [address] [address] [employer] [place], [place] [phone] * Surgical pathology (02/23/2025 12:00 AM CDT) Tissue (Skin, shave biopsy) 02/23/2025 02/24/2025 7:14 AM CDT Narrative [facility] - 02/25/2025 11:20 AM CDT EPIC results best viewed via link to PDF [facility] [address] [facility] [address], [place] [address] [email or web address] Note to Patients: This report may contain [...] can answer questions and explain the details. FINAL REPORT Patient Information: PATIENT NAME: RAH HENSON SEX: M : 1955 (Age: 69) Specimen Information: COLLECTED: 02/23/2025 RECEIVED: 02/24/2025 REPORTED: 02/25/2025 Submitting Physician Information: Kemal Galvez M.D. [address] [facility], [address] [place] [id number] , DERMATOPATHOLOGY REPORT RESULTS DIAGNOSIS: SKIN, RIGHT PLASENCIA, SHAVE BIOPSY: BASAL CELL CARCINOMA [facility] By this signature, I attest that the above diagnosis is based upon my personal examination of the slides(and/or other material indicated in the diagnosis). Florin Russ M.D. Report Electronically Reviewed and Signed Out By Florin Russ M.D. 02/25/2025 11:20:18 CLINICAL INFORMATION DERMATOFIBROMA VS PIGMENTED BCC SPECIMEN DATA MICROSCOPIC DESCRIPTION: Irregular aggregates of atypical basal epithelial cells with palisading of their peripheral nuclei are present within the dermis. (C44.91) GROSS DESCRIPTION: Received in a formalin-containing bottle is a superficial fragment of cartagena-brown, variegated, and scaly skin measuring 1.8 by 1.3 by 0.1 cm. The surgical margin is inked blue. The specimen is sectioned into 6 pieces and submitted entirely in a single cassette. Due to shrinkage, measurements may be different than those at time of procedure. ag/mat ICD-9 A; ZSD.176 Clerical Data A; 53185 The characteristics of special, immunohistochemical, and immunofluorescence stains and in-situ hybridization tests performed by the [facility] were deemed acceptable in ongoing personnel quality assurance auditor measures and in compliance with regulations drawn from the Clinical Laboratory Improvement Act cl8473 (CLIA '88). Control reactions for all stains performed were deemed adequate and appropriate by a pathologist prior to evaluation of patient tissue. Some diagnoses were rendered with the assistance of laboratory-developed tests utilizing analyte-specific reagents; the performance characteristic of these tests were determined by [facility] and are not cleared or approved by the [place] Food an Drug administration. Laboratory developed test may only be performed in a facility that is certified by the [facility] as a high-complexity laboratory under CLIA '88. These tests are used for clinical purposes and are not investigational. Kemal Galvez MD LAB PATHOLOGY ORDERABLES Final Result [facility] [address] [place] [id number] * CTA Abdomen (02/05/2025 2:29 PM CDT) [...] agrees with it. Electronically signed by: Kolton Dael M.D. us Ben Chahal MD PhD IMG CT PROCEDURES Final Result * DEVICE CHECK - REMOTE (01/22/2025 4:09 AM CDT) Anatomical Region Laterality Modality Other 01/22/2025 4:09 AM CDT Narrative 01/28/2025 2:32 PM CDT Interpretation Summary: Battery and Leads (BL) Normal parameters noted on battery and lead(s) --- HUNG Presenting Rhythm (NE) Atrial Pacing-Ventricular Sensing (AP-VS) --- rate 60 Arrhythmic events (AE) No new arrhythmic events in monitoring period Transmission Information (TI) Device Summary Report Provider Only Interpretation (PI) Provider has reviewed and agrees with findings Procedure Note Pebbles Nelson MD - 01/28/2025 Interpretation Summary: Battery and Leads (BL) Normal parameters noted on battery and lead(s) --- HUNG Presenting Rhythm (NE) Atrial Pacing-Ventricular Sensing (AP-VS) --- rate 60 Arrhythmic events (AE) No new arrhythmic events in monitoring period Transmission Information (TI) Device Summary Report Provider Only Interpretation (PI) Provider has reviewed and agrees with findings Pebbles Nelson MD CV CARDIAC SERVICES PROCEDURES [...] Benito Whiteside M.D. us Marcos Ray MD IMG MRI PROCEDURES Final R esult * XR [...] it. Electronically signed by: Richard Soriano M.D. Nick Sorensen MD IMG XR PROCEDURES Tete l [...] no pleural effusion, no pneumothorax. Dictated by: Hlalie Bose M.D. The radiology attending physician has [...] esult * eGFR (01/19/2025 1:32 PM CDT) [facility] eGFR 90 >=60 mL/min/1. 73 m2 Comment: [...] WAYNE LAB BLOOD ORDERABLES Final Result DAVID VIRGEN [facility] Department of Laboratories [place], [place] [phone] * (ABNORMAL) Differential, auto (01/19/2025 1:32 PM CDT) Neutrophil abs 5.13 1.50 - 6.50 K/cumm Comment:Testing performed by : [facility], [address] [place] [phone] Lymphocyte abs 0.73(L) 0.80 - 3.30 K/cumm DAVID VIRGEN Comment:Testing performed by : [facility], [address] [place] [phone] Monocyte abs 0.60 0.20 - 0.80 K/cumm DAVID VIRGEN Comment:Testing performed by : [facility], [address] [place] [phone] Eosinophil abs 0.17 0.00 - 0.50 K/cumm C[facility]ER [facility] Comment:Testing performed by : [facility], [address] [place] [phone] Basophil abs 0.04 0.00 - 0.10 K/cumm CERNER [facility] Comment:Testing performed by : [facility], [address] [place] [phone] Neutrophil pct 76.9 % [facility] Comment: Interpretive Data Percent cell count reference ranges are not reported, since discordance with absolute values may lead to misinterpretation of CBC data. Current Interpretive Data was last revised on 2017. Testing performed by: [facility], [address] [place] [phone] Lymphocyte pct 11.0 % [facility]ER [facility] Comment: Interpretive Data Percent cell count reference ranges are not reported, since discordance with absolute values may lead to misinterpretation of CBC data. Current Interpretive Data was last revised on 2017. Testing performed by: [facility], [address] [place] [phone] Monocyte pct 9.0 % [facility]ER [facility] Comment: Interpretive Data Percent cell count reference ranges are not reported, since discordance with absolute values may lead to misinterpretation of CBC data. Current Interpretive Data was last revised on 2017. Testing performed by: [facility], [address] [place] [phone] Eosinophil pct 2.6 % [facility] Comment: Interpretive Data Percent cell count reference ranges are not reported, since discordance with absolute values may lead to misinterpretation of CBC data. Current Interpretive Data was last revised on 2017. Testing performed by: [facility], [address] [place] [phone] Basophil pct 0.5 % [facility] Comment: Interpretive Data Percent cell count reference ranges are not reported, since discordance with absolute values may lead to misinterpretation of CBC data. Current Interpretive Data was last revised on 2017. Testing performed by: [facility], [address] [place] [phone] Blood 01/19/2025 1:32 PM CDT 01/19/2025 1:39 PM CDT us Tiffany WAYNE LAB BLOOD ORDERABLES Final Result Performing Organization Address City/[facility]/ZIP Co de Phone Number [facility] Department [place] [address] * Iron profile w/ IBC (01/19/2025 1:32 PM CDT) Pathologist [facility] Iron 96 50 - 150 mcg/dL TIBC 322 250 - 400 mcg/dL [facility] Transferrin saturation 30 20 - 50 % [facility] Blood 01/19/2025 1:32 PM CDT 01/19/2025 1:42 PM CDT us Ben Chahal MD PhD LAB BLOOD ORDERABLES Fin al Result Performing Organization Address [facility] Co de Phone Number [facility] Department [place] [address] * (ABNORMAL) CBC with auto differential (01/19/2025 1:32 PM CDT) [facility] WBC 6.68 3.80 - 9.90 K/cumm Comment:Testing performed by : [facility], [address] [place] [phone] Hgb 11.6(L) 13.0 - 17.5 g/dL DAVID [facility] Comment:Testing performed by : [facility], [address] [place] [phone] Hct 36.5(L) 38.9 - 50.3 % DAVID [facility] Comment:Testing performed by : [facility], [address] [place] [phone] Plt 186 150 - 400 K/cumm [facility] Comment:Testing performed by : [facility], [address] [place] [phone] MPV 7.8 6.8 - 10.4 fL DAVID [facility] Comment:Testing performed by : [facility], [address] [place] [address] RBC 4.57 4.30 - 5.80 M/cumm DAVID [facility] Comment:Testing performed by : [facility], [address] [place] [address] MCV 79.9(L) 81.3 - 96.4 fL [facility] Comment:Testing performed by : [facility], [address] [place] [address] MCH 25.3(L) 27.1 - 33.3 pg [facility] Comment:Testing performed by : [facility], [address] [place] [address] MCHC 31.7(L) 32.3 - 35.7 g/dL [facility] Comment:Testing performed by : [facility], [address] [place] [address] RDW CV 17.5(H) 11.1 - 14.9 % [facility] Comment:Testing performed by : [facility], [address] [place] [address] NRBC abs 0.00 0.00 - 0.01 K/cumm [facility] Comment:Testing performed by : [facility], [address] [place] [address] Blood 01/19/2025 1:32 PM CDT 01/19/2025 1:39 PM CDT Tiffany WAYNE LAB BLOOD ORDERABLES Final Result [facility] Department of Laboratories [place], [place] [phone] * Cancer antigen 19-9 (01/19/2025 1:32 PM CDT) CA 19-9 ag 24.3 <=35.0 units/mL Comment: Interpretive Data The Autumn CA 19-9 assay procedure was used. Results from different manufacturers or methods may not be comparable. Serial testing should be performed using the same method. Blood 01/19/2025 1:32 PM CDT 01/19/2025 2:11 PM CDT Tiffany WAYNE LAB BLOOD ORDERABLES Final Result Performing Organization Address City/[facility]/ZIP Co de Phone Number [facility] [place] [address] * Ferritin (01/19/2025 1:32 PM CDT) [facility] Ferritin 54 30 - 400 ng/mL Blood 01/19/2025 1:32 PM CDT 01/19/2025 1:42 PM CDT Ben Chahal MD PhD LAB BLOOD ORDERABLES Fin al Result Performing Organization Address [facility] Co de Phone Number [facility] Department [place] [address] * (ABNORMAL) Comprehensive metabolic panel (01/19/2025 1:32 PM CDT) [facility] Sodium 140 135 - 145 mmol/L Potassium, pl 4.0 3.3 - 4.9 mmol/L [facility] Chloride 103 97 - 110 mmol/L [facility] CO2 27 22 - 32 mmol/L [facility] Anion gap 10 2 - 15 mmol/L [facility] BUN 25 6 - 25 mg/dL [facility] Creatinine 0.92 0.80 - 1.30 mg/dL [facility] Glucose 184 70 - 199 mg/dL [facility] Comment: Interpretive Data Fasting glucose >/= 126 [...] Calcium 9.0 8.5 - 10.3 mg/dL CERNER [facility] Bilirubin, total 0.2 0.1 - 1.2 mg/dL CERNER [facility] Protein, pl 7.2 6.5 - 8.5 g/dL CERNER [facility] Albumin 3.9 3.5 - 5.0 g/dL [facility] Alk phos 423(H) 40 - 130 Units/L CERNER BJ ALT 42 7 - 55 Units/L CERNER BJ AST 38 10 - 50 Units/L CERNER [facility] Blood 01/19/2025 1:32 PM CDT 01/19/2025 1:42 PM CDT us Tiffany WAYNE LAB BLOOD ORDERABLES Final Result [facility] Department [place] [address] * CT chest without contrast (01/19/2025 1:12 [...] was last revised on 2014. POC Performer [id number] DAVID SWEENEY POC Device Number [id number] DAVID PEOPLES Blood 01/15/2025 12:3 0 PM CDT 01/15/2025 12:30 PM CDT Cb Lentz MD LAB POCT ORDERABLES - DEV ICE Final Result Performing Organization Address [facility] de Phone Number DAVID VIRGENWCH [address] [facility] [employer] [place], [place] [phone] * (ABNORMAL) POCT glucose (01/15/2025 11:49 AM CDT) Glucose, POC 284(H) 70 - 199 mg/dL Comment: Interpretive Data Glucose is assumed to be non-fasting. Fasting Glucose reference ranges are: 0 - 150 years: 70 mg/dL - 99 mg/dL Current interpretive data was last revised on 2014. POC Performer [id number] [facility] Device Number [id number] DAVID VIRGENROSSANA Glucose comment 1 RN/MD Notified DAVID PEOPLES Blood 01/15/2025 11:4 9 AM CDT 01/15/2025 11:49 AM CDT Cb Lentz MD LAB POCT ORDERABLES - DEV ICE Final Result Performing Organization Address [facility] de Phone Number DAVID VIRGENWCH [address] [facility] [place] [address] * POCT glucose (01/15/2025 8:14 AM CDT) Glucose, POC 138 70 - 199 mg/dL Comment: Interpretive Data Glucose is assumed to be non-fasting. Fasting Glucose reference ranges are: 0 - 150 years: 70 mg/dL - 99 mg/dL Current interpretive data was last revised on 2014. POC Performer [id number] [facility] POC Device Number [id number] [facility] Blood 01/15/2025 8:14 AM CDT 01/15/2025 8:14 AM CDT Cb Lentz MD LAB POCT ORDERABLES - DEV ICE Final Result Performing Organization Address [facility] Co de Phone Number [facility] [address] [facility] [employer] [place], [place] [phone] * eGFR (01/15/2025 6:07 AM CDT) eGFR [...] ORDERABLES Tete l Result Performing Organization Address [facility]/ZIP Co de Phone Number DAVID BJW[facility] [address] [address] [place] [address] * (ABNORMAL) Differential, auto (01/15/2025 6:07 AM CDT) Neutrophil abs 1.98 1.50 - 6.50 K/cumm Imm gran abs 0.01 0.00 - 0.10 K/cumm [facility]ER [facility] Lymphocyte abs 0.66(L) 0.80 - 3.30 K/cumm [facility] Monocyte abs 0.67 0.20 - 0.80 K/cumm [facility] Eosinophil abs 0.18 0.00 - 0.50 K/cumm [facility] Basophil abs 0.02 0.00 - 0.10 K/cumm [facility] Neutrophil pct 56.2 % C[facility]ER [facility] Comment: Interpretive Data Percent cell count reference ranges are not reported, since discordance with absolute values may lead to misinterpretation of CBC data. Current Interpretive Data was last revised on 2017. Imm gran pct 0.3 % [facility] Comment: Interpretive Data Percent cell count reference ranges are not reported, since discordance with absolute values may lead to misinterpretation of CBC data. Current Interpretive Data was last revised on 2017. Lymphocyte pct 18.8 % [facility] Comment: Interpretive Data Percent cell count reference ranges are not reported, since discordance with absolute values may lead to misinterpretation of CBC data. Current Interpretive Data was last revised on 2017. Monocyte pct 19.0 % [facility] Comment: Interpretive Data Percent cell count reference ranges are not reported, since discordance with absolute values may lead to misinterpretation of CBC data. Current Interpretive Data was last revised on 2017. Eosinophil pct 5.1 % [facility] Comment: Interpretive Data Percent cell count reference ranges are not reported, since discordance with absolute values may lead to misinterpretation of CBC data. Current Interpretive Data was last revised on 2017. Basophil pct 0.6 % [facility] Comment: Interpretive Data Percent cell count reference ranges are not reported, since discordance with absolute values may lead to misinterpretation of CBC data. Current Interpretive Data was last revised on 2017. Blood 01/15/2025 6:07 AM CDT 01/15/2025 6:11 AM CDT Cb Lentz MD LAB BLOOD ORDERABLES Tete l Result DAVID PEOPLES [id number] [address] [employer] [place], [place] [phone] * (ABNORMAL) CBC with auto differential (01/15/2025 6:07 AM CDT) WBC 3.52(L) 3.80 - 9.90 K/cumm Hgb 10.9(L) 13.0 - 17.5 g/dL CERNER [facility] Hct 35.3(L) 38.9 - 50.3 % CERNER [facility] Plt 143(L) 150 - 400 K/cumm C[facility]ER [facility] MPV 10.4 9.1 - 12.3 fL [facility]ER [facility] RBC 4.25(L) 4.30 - 5.80 M/cumm C[facility]ER [facility] MCV 83.1 81.3 - 96.4 fL CERNER [facility] MCH 25.6(L) 27.1 - 33.3 pg CERNER [facility] MCHC 30.9(L) 32.3 - 35.7 g/dL CERNER [facility] RDW CV 16.4(H) 11.1 - 14.9 % CERNER [facility] RDW SD 49.8(H) 35.7 - 48.1 fL CERNER [facility] NRBC abs 0.00 0.00 - 0.01 K/cumm [facility] Blood 01/15/2025 6:07 AM CDT 01/15/2025 6:11 AM CDT Cb Lentz MD LAB BLOOD ORDERABLES Tete l Result DAVID PEOPLES [address] [address] [employer] [place], [place] [phone] * Basic metabolic panel (01/15/2025 6:07 AM CDT) Pathologist [facility] Sodium 138 135 - 145 mmol/L Potassium, pl 3.7 3.3 - 4.9 mmol/L CERNER [facility] Chloride 101 97 - 110 mmol/L [facility] CO2 26 22 - 32 mmol/L [facility] Anion gap 11 2 - 15 mmol/L [facility] BUN 15 6 - 25 mg/dL [facility] Creatinine 0.80 0.80 - 1.30 mg/dL [facility] Glucose 143 70 - 199 mg/dL [facility] Comment: Interpretive Data Fasting glucose [...] 2022. Calcium 8.6 8.5 - 10.3 mg/dL [facility] Blood 01/15/2025 6:07 AM CDT 01/15/2025 6:11 AM CDT Cb Lentz MD LAB BLOOD ORDERABLES Tete bennett Result [facility] [address] [facility] Department [place] [address] * (ABNORMAL) POCT glucose (01/14/2025 9:51 PM CDT) [facility] Glucose, POC 226(H) 70 - 199 mg/dL Comment: Interpretive Data Glucose is assumed to be non-fasting. Fasting Glucose reference ranges are: 0 - 150 years: 70 mg/dL - 99 mg/dL Current interpretive data was last revised on 2014. POC Performer [id number] [facility] POC Device Number [id number] [facility] Blood 01/14/2025 9:51 PM CDT 01/14/2025 9:51 PM CDT Cb Lentz MD LAB POCT ORDERABLES - DEV ICE Final Result Performing Organization Address [facility] Co de Phone Number DAVID VIRGENWCH [address] [facility] [place] [address] * POCT glucose (01/14/2025 5:03 PM CDT) Glucose, POC 137 70 - 199 mg/dL Comment: Interpretive Data Glucose is assumed to be non-fasting. Fasting Glucose reference ranges are: 0 - 150 years: 70 mg/dL - 99 mg/dL Current interpretive data was last revised on 2014. POC Performer [id number] DAVID PEOPLES POC Device Number [id number] DAVID PEOPLES Blood 01/14/2025 5:03 PM CDT 01/14/2025 5:03 PM CDT Cb Lentz MD LAB POCT ORDERABLES - DEV ICE Final Result Performing Organization Address [facility] de Phone Number DAVID VIRGENWCH [address] [facility] [place] [address] * Infection Prevention Foreign auris PCR, surveillance Axilla/Groin (01/14/2025 12:16 PM CDT) Foreign auris DNA Not Detected Not Detected [facility] Comment: Interpretive Data Testing performed by [facility] Molecular Infectious Disease Laboratory using the Autumn brenna 6800 Foreign auris assay. This assay detects DNA from Foreign auris using Real-Time PCR. This assay is laboratory developed and is not cleared by the [place] Food and Drug Administration. The performance characteristics have been verified by the [facility]. Testing performed by: [facility], [address] [place] [address] Axilla/Groin 01/14/2025 12:1 6 PM CDT 01/14/2025 3:47 PM CDT Narrative DAVID PEOPLES - 01/14/2025 10:26 PM CDT Order placed by [facility] due to ring surveillance. us Instant Order Generic Provider LAB MICROBIOLOGY - GENERAL ORDERABLES Final Result Performing Organization Address [facility] Co de Phone Number [facility] [address] [facility] [place] [address] [facility] * POCT glucose (01/14/2025 11:26 AM CDT) Glucose, POC 156 70 - 199 mg/dL Comment: Interpretive Data Glucose is assumed to be non-fasting. Fasting Glucose reference ranges are: 0 - 150 years: 70 mg/dL - 99 mg/dL Current interpretive data was last revised on 2014. POC Performer [id number] [facility] P[facility] Device Number [id number] DAVID VIRGENWCH Blood 01/14/2025 11:2 6 AM CDT 01/14/2025 11:26 AM CDT us Cb Lentz MD LAB POCT ORDERABLES - DEV ICE Final Result Performing Organization Address [facility] de Phone Number DAVID VIRGENCH [address] [facility] [place] [address] * POCT glucose (01/14/2025 7:55 AM CDT) Glucose, POC 147 70 - 199 mg/dL Comment: Interpretive Data Glucose is assumed to be non-fasting. Fasting Glucose reference ranges are: 0 - 150 years: 70 mg/dL - 99 mg/dL Current interpretive data was last revised on 2014. POC Performer [id number] [facility] P[facility] Device Number [id number] DAVID VIRGENWCH Blood 01/14/2025 7:55 AM CDT 01/14/2025 7:55 AM CDT Cb Lentz MD LAB POCT ORDERABLES - DEV ICE Final Result Performing Organization Address [facility] Co de Phone Number DAVID VIRGENCH [address] [employer]. Department [place] [address] * eGFR (01/14/2025 5:41 AM CDT) eGFR [...] LAB BLOOD NII SOTO Final Result DAVID VIRGENWCH [address] [employer]. Department [place] [address] * (ABNORMAL) Differential, auto (01/14/2025 5:41 AM CDT) Neutrophil abs 3.83 1.50 - 6.50 K/cumm Imm gran abs 0.02 0.00 - 0.10 K/cumm CERNER BJWCH Lymphocyte abs 0.62(L) 0.80 - 3.30 K/cumm CERNER BJWCH Monocyte abs 0.61 0.20 - 0.80 K/cumm CERNER BJWCH Eosinophil abs 0.20 0.00 - 0.50 K/cumm CERNER BJROSSANA Basophil abs 0.03 0.00 - 0.10 K/cumm DAVID VIRGENROSSANA Neutrophil pct 72.0 % [facility] Comment: Interpretive Data Percent cell count reference ranges are not reported, since discordance with absolute values may lead to misinterpretation of CBC data. Current Interpretive Data was last revised on 2017. Imm gran pct 0.4 % DAVID SWEENEY Comment: Interpretive Data Percent cell count reference ranges are not reported, since discordance with absolute values may lead to misinterpretation of CBC data. Current Interpretive Data was last revised on 2017. Lymphocyte pct 11.7 % DAVID SWEENEY Comment: Interpretive Data Percent cell count reference ranges are not reported, since discordance with absolute values may lead to misinterpretation of CBC data. Current Interpretive Data was last revised on 2017. Monocyte pct 11.5 % [facility] Comment: Interpretive Data Percent cell count reference ranges are not reported, since discordance with absolute values may lead to misinterpretation of CBC data. Current Interpretive Data was last revised on 2017. Eosinophil pct 3.8 % DAVID [facility] Comment: Interpretive Data Percent cell count reference ranges are not reported, since discordance with absolute values may lead to misinterpretation of CBC data. Current Interpretive Data was last revised on 2017. Basophil pct 0.6 % [facility]ID [facility] Comment: Interpretive Data Percent cell count reference ranges are not reported, since discordance with absolute values may lead to misinterpretation of CBC data. Current Interpretive Data was last revised on 2017. Blood 01/14/2025 5:41 AM CDT 01/14/2025 5:57 AM CDT Andreina Shields MD LAB BLOOD NII SOTO Final Result DAVID VIRGENWCH [address] [facility]. Department of Laboratories [place], [place] [id number] * (ABNORMAL) CBC with auto differential (01/14/2025 5:41 AM CDT) WBC 5.31 3.80 - 9.90 K/cumm Hgb 11.4(L) 13.0 - 17.5 g/dL [facility] Hct 37.2(L) 38.9 - 50.3 % [facility] Plt 141(L) 150 - 400 K/cumm [facility] MPV 9.8 9.1 - 12.3 fL [facility] RBC 4.38 4.30 - 5.80 M/cumm [facility] MCV 84.9 81.3 - 96.4 fL [facility] MCH 26.0(L) 27.1 - 33.3 pg [facility] MCHC 30.6(L) 32.3 - 35.7 g/dL [facility] RDW CV 16.6(H) 11.1 - 14.9 % [facility] RDW SD 51.8(H) 35.7 - 48.1 fL [facility] NRBC abs 0.00 0.00 - 0.01 K/cumm [facility] Blood 01/14/2025 5:41 AM CDT 01/14/2025 5:57 AM CDT Andreina Shields MD LAB BLOOD NII SOTO Final Result [facility] [address] [facility]. Department of Laboratories [place], [place] [id number] * Basic metabolic panel (01/14/2025 5:41 AM CDT) Pathologist [facility] Sodium 139 135 - 145 mmol/L Potassium, pl 4.2 3.3 - 4.9 mmol/L [facility] Chloride 105 97 - 110 mmol/L [facility] CO2 27 22 - 32 mmol/L [facility] Anion gap 7 2 - 15 mmol/L [facility] BUN 15 6 - 25 mg/dL [facility] Creatinine 0.80 0.80 - 1.30 mg/dL [facility] Glucose 169 70 - 199 mg/dL [facility] Comment: Interpretive Data Fasting glucose [...] Calcium 8.8 8.5 - 10.3 mg/dL DAVID [facility] Blood 01/14/2025 5:41 AM CDT 01/14/2025 5:57 AM CDT Andreina Shields MD LAB BLOOD ORDE RABLES Final Result Performing Organization Address [facility] Co de Phone Number [facility] [address] [facility] [employer] [place], [place] [id number] * POCT glucose (01/13/2025 9:19 PM CDT) Glucose, POC 198 70 - 199 mg/dL Comment: Interpretive Data Glucose is assumed to be non-fasting. Fasting Glucose reference ranges are: 0 - 150 years: 70 mg/dL - 99 mg/dL Current interpretive data was last revised on 2014. POC Performer [id number] [facility] POC Device Number [id number] [facility] Blood 01/13/2025 9:19 PM CDT 01/13/2025 9:19 PM CDT Andreina Shields MD LAB POCT ORDER JOSE LUIS - DEVICE Final Result Performing Organization Address City/[facility] Co de Phone Number [facility] [address] [facility] [address] [place], [place] [id number] * POCT glucose (01/13/2025 5:27 PM CDT) Glucose, POC 90 70 - 199 mg/dL Comment: Interpretive Data Glucose is assumed to be non-fasting. Fasting Glucose reference ranges are: 0 - 150 years: 70 mg/dL - 99 mg/dL Current interpretive data was last revised on 2014. POC Performer [id number] [employer] POC Device Number [id number] DAVID VIRGENSahara Media Holdings Blood 01/13/2025 5:27 PM CDT 01/13/2025 5:27 PM CDT Andreina Shields MD LAB POCT ORDER JOSE LUIS - DEVICE Final Result Performing Organization Address [facility] de Phone Number DAVID VIRGENCH [address] [employer] [facility] [employer] [place], [place] [phone] * (ABNORMAL) POCT glucose (01/13/2025 12:13 PM CDT) Glucose, POC 222(H) 70 - 199 mg/dL Comment: Interpretive Data Glucose is assumed to be non-fasting. Fasting Glucose reference ranges are: 0 - 150 years: 70 mg/dL - 99 mg/dL Current interpretive data was last revised on 2014. POC Performer [id number] [employer] POC Device Number [id number] DAVID [employer] Blood 01/13/2025 12:1 3 PM CDT 01/13/2025 12:13 PM CDT Andreina Shields MD LAB POCT ORDER JOSE LUIS - DEVICE Final Result Performing Organization Address [facility] de Phone Number DAVID VIRGENWCH [address] [employer] [facility] [place] [address] * POCT glucose (01/13/2025 8:05 AM CDT) Glucose, POC 109 70 - 199 mg/dL Comment: Interpretive Data Glucose is assumed to be non-fasting. Fasting Glucose reference ranges are: 0 - 150 years: 70 mg/dL - 99 mg/dL Current interpretive data was last revised on 2014. POC Performer [id number] [employer] POC Device Number [id number] CERPETAR VIRGENWCH Blood 01/13/2025 8:05 AM CDT 01/13/2025 8:05 AM CDT Andreina Shields MD LAB POCT ORDER JOSE LUIS - DEVICE Final Result Performing Organization Address [facility] de Phone Number DAVID BJWCH [address] [facility] [place] [address] * POCT glucose (01/13/2025 2:00 AM CDT) [facility] Glucose, POC 109 70 - 199 mg/dL Comment: Interpretive Data Glucose is assumed to be non-fasting. Fasting Glucose reference ranges are: 0 - 150 years: 70 mg/dL - 99 mg/dL Current interpretive data was last revised on 2014. POC Performer [id number] [employer] POC Device Number [id number] [employer] Blood 01/13/2025 2:00 AM CDT 01/13/2025 2:00 AM CDT Mary Lagunas MD LAB POCT ORDERABLES - DEVIC E Final Result Performing Organization Address [facility] Phone Number DAVID BJWCH [address] [facility] [place] [address] * CT Abdomen Pelvis W Contrast (01/12/2025 [...] was last revised on 2014. POC Performer [id number] [facility] P[facility] Device Number [id number] [facility] Blood 01/12/2025 8:00 PM CDT 01/12/2025 8:00 PM CDT Notinf[employer] Unknown LAB POCT ORDERABLES - DEVICE F inal Result DAVID VIRGENWCH [address] [facility] Department [place] [address] * Urinalysis reflex to microscopic and culture Urine (01/12/2025 7:56 PM CDT) Color, ur Straw Yellow Clarity, ur Clear Clear [facility] Specific gravity, ur 1.017 1.003 - 1.030 [facility] pH, urine 6.0 [facility] Comment: Interpretive Data U rine pH is affected by diet, medications, systemic acid-base disturbances, and renal tubular function. pH may affect urinary stone formation. For example, urine pH below 6.0 may help reduce the tendency for calcium phosphate stones and pH greater than 6.0 may reduce the tendency for uric acid stone formation. Source: [facility] Current Interpretive Data was last revised [...] microscopic UA and culture not met. CERPETAR VIRGENWCH Urine 01/12/2025 7:56 PM CDT 01/12/2025 7:59 PM CDT us Chaz Hernandez MD LAB MICROBIOLOGY - GENERAL ORD ERABLES Final Result DAVID SWEENEYCH [address] [facility]. Department [place] [address] * eGFR (01/12/2025 4:53 PM CDT) eGFR [...] LAB BLOOD ORDERABLES Final Res ult [facility] [address] [facility]. Department [place] [address] * Differential, auto (01/12/2025 4:53 PM CDT) [...] CERNER BJWCH Neutrophil pct 74.3 % [facility] Comment: Interpretive Data Percent cell count reference ranges are not reported, since discordance with absolute values may lead to misinterpretation of CBC data. Current Interpretive Data was last revised on 2017. Imm gran pct 0.3 % [facility] Comment: Interpretive Data Percent cell count reference ranges are not reported, since discordance with absolute values may lead to misinterpretation of CBC data. Current Interpretive Data was last revised on 2017. Lymphocyte pct 13.5 % [facility] Comment: Interpretive Data Percent cell count reference ranges are not reported, since discordance with absolute values may lead to misinterpretation of CBC data. Current Interpretive Data was last revised on 2017. Monocyte pct 8.6 % [facility] Comment: Interpretive Data Percent cell count reference ranges are not reported, since discordance with absolute values may lead to misinterpretation of CBC data. Current Interpretive Data was last revised on 2017. Eosinophil pct 2.8 % [facility] Comment: Interpretive Data Percent cell count reference ranges are not reported, since discordance with absolute values may lead to misinterpretation of CBC data. Current Interpretive Data was last revised on 2017. Basophil pct 0.5 % [facility] Comment: Interpretive Data Percent cell count reference ranges are not reported, since discordance with absolute values may lead to misinterpretation of CBC data. Current Interpretive Data was last revised on 2017. Blood 01/12/2025 4:53 PM CDT 01/12/2025 5:08 PM CDT us Chaz Hernandez MD LAB BLOOD ORDERABLES Final Res ult [facility] [address] [facility]. Department [place] [address] * (ABNORMAL) CBC with auto differential (01/12/2025 4:53 PM CDT) WBC 6.07 3.80 - 9.90 K/cumm Hgb 10.9(L) 13.0 - 17.5 g/dL [facility] Hct 34.7(L) 38.9 - 50.3 % [facility] Plt 201 150 - 400 K/cumm [facility] MPV 10.5 9.1 - 12.3 fL [facility] RBC 4.17(L) 4.30 - 5.80 M/cumm [facility] MCV 83.2 81.3 - 96.4 fL [facility] MCH 26.1(L) 27.1 - 33.3 pg [facility] MCHC 31.4(L) 32.3 - 35.7 g/dL [facility] RDW CV 16.9(H) 11.1 - 14.9 % [facility] RDW SD 50.7(H) 35.7 - 48.1 fL [facility] NRBC abs 0.00 0.00 - 0.01 K/cumm [facility] Blood Venous blood specimen / Unknown 01/12/2025 4:53 PM CDT 01/12/2025 5:08 PM CDT us Chaz Hernandez MD LAB BLOOD ORDERABLES Final Res ult Performing Organization Address [facility]/ZIP Co de Phone Number DAVID PEOPLES [address] [facility]. [place] [address] * (ABNORMAL) Lipase (01/12/2025 4:53 PM CDT) Lipase 5(L) 10 - 99 Units/L Blood Venous blood specimen / Unknown 01/12/2025 4:53 PM CDT 01/12/2025 5:08 PM CDT Chaz Hernandez MD LAB BLOOD ORDERABLES Final Res ult Performing Organization Address [facility] Co de Phone Number DAVID PEOPLES [address] [facility]. Department [place] [address] * (ABNORMAL) Comprehensive metabolic panel (01/12/2025 4:53 PM CDT) Pathologist [facility] Sodium 136 135 - 145 mmol/L Potassium, pl 4.4 3.3 - 4.9 mmol/L [facility] Chloride 104 97 - 110 mmol/L [facility] CO2 22 22 - 32 mmol/L [facility] Anion gap 11 2 - 15 mmol/L [facility] BUN 21 6 - 25 mg/dL [facility] Creatinine 0.70(L) 0.80 - 1.30 mg/dL [facility] Glucose 296(H) 70 - 199 mg/dL [facility] Comment: Interpretive Data Fasting glucose [...] LAB BLOOD ORDERABLES Final Res ult [facility] [address] [facility]. Department [place] [address] * POCT glucose (01/06/2025 8:52 AM CDT) Glucose Blood, POC 205 Normal Fasting 70 - 100, Random <200 mg/dL Blood 01/06/2025 8:52 AM CDT Margaret Balderas MD POINT OF CARE TEST ORDERABLE S Final Result * (ABNORMAL) Lipid panel (11/19/2024 1:05 PM [...] 3. Main Cruz et al. JEANINE Cardiol. 2020 October 30;5(5):540-548. doi: [email or web address] Current Interpretive Data was [...] last revised on 2018. Chol/HDL ratio 3 DAVID PEOPLES Blood 11/19/2024 1:05 PM CDT 11/19/2024 1:09 PM CDT Tavon Razo MD LAB BLOOD ORDERABLES nal Result DAVID VIRGENCH [address] [facility]. Department of Laboratories [place], [place] [id number] * Colonoscopy (11/11/2024 11:01 AM CDT) Anatomical Region Laterality Modality Other Narrative Procedure Note Trang Ryan MD - 11/11/2024 11:01 AM CDT ENDOSCOPY LAB Patient Name: Rah Henson Procedure Date: 11/11/2024 11:01 AM Date of : 1955 Admit Type: Outpatient Age: 69 Gender: Male Attending MD: Trang Ryan M.D. Room: [facility] ENDOSCOPY ROOM 01 Note Status: [...] The scope was passed under direct vision.The [id number] was introduced through the anusand advanced to [...] MD ENDOSCOPY PROCEDURES Final Resu lt * Albumin Creatinine Ratio, Urine (02/29/2024 8:27 [...] 8:27 AM CDT 02/29/2024 8:28 AM CDT Clemnecia Beatty NP LAB URINE ORDERABLES Tete bennett Result [facility] [address] [address] * PSA screen (04/16/2020 7:01 AM CDT) PSA 0.1 < OR = 4.0 ng/mL [facility] Comment: The total PSA value from this assay system is standardized against the WHO standard. The test result will be approximately 20% lower when compared to the equimolar-standardized total PSA (April [place]). Comparison of serial PSA results should be [...] 04/21/2020 11:41 AM CDT FASTING:YES FASTING: YES us William Mera MD LAB BLOOD ORDERABLES Final R esult MILENA [facility] [address] [place] [address] from Last 3 Months or Most Recently Relevant to Health Maintenance Insurance [employer] CHOICE MEDICARE PPO Member Subscriber Plan / Payer (Ef fective 2020-Present) Name:Rah Henson Relation to Subscriber:Self Name:Rah Henson Payer ID:[id number] (NAIC) Type:MEDICARE RISK OTHER Address: [address] GOLD ADVANTAGE CON AETNA [facility] GOLD REF AETNA SENIOR SUPPLEMENT HUMANA CHOICE MEDICARE PPO MEDICARE IDPA HUMANA CHOICE MEDICARE PPO IDPA HU[employer]NA CHOICE MEDICARE PPO HU[employer]NA MEDICARE HMO Advance Directives For more information, please contact: [phone] Documents on File Type Date Recorded Patient Dining Room Attendant Cafeteria Expl anation ADVANCE DIRECTIVE 05/22/2023 5:43 PM Claudine Ellis POWER OF SOCIAL INSURANCE SPECIALIST-MEDICAL ADVANCE DIRECTIVE 04/12/2023 6:16 PM [place] R OF SOCIAL INSURANCE SPECIALIST-MEDICAL ADVANCE DIRECTIVE 04/12/2023 6:09 PM [place] R OF SOCIAL INSURANCE SPECIALIST-MEDICAL * Full Code (Latest Code Status on File) Date Activated Date Inactivated Comments 03/31/2025 9:28 PM 04/03/2025 2:53 PM * Full Code Date Activated Date Inactivated Comments 03/01/2025 4:57 AM 03/05/2025 7:43 PM * Full Code Date Activated Date Inactivated Comments 01/13/2025 12:24 AM 01/15/2025 7:42 PM * Full Code Date Activated Date Inactivated Comments 12/09/2024 9:25 AM 12/10/2024 4:50 PM * Full Code Date Activated Date Inactivated Comments 11/19/2024 8:22 PM 11/24/2024 3:09 PM Healthcare Agents on File Name Relationship Healthcare Agent Relationshi p Communication Claudine Henson Spouse Health Care Agent [email or web address] Meghan Ellis Daughter First Alternate Health Care Agent Sushant Henson Son Second Alternate Health Care Agent [email or web address] Care Teams Manager Performance Improvement Relationship Specialty Start Date End Date Kenton Ricks MD PCP - General 08/14/16 Pebbles Nelson MD Referring Physician Cardiology 02/07/19 Aylin Rsus MD [address] [facility] [address] [place] [address] Referring Physician Pulmonary Disease 02/07/19 Maricruz Ramirez, GAS CUTTER [address] [place] [address] Nurse Practitioner Cardiovascular Disease 09/25/21 Joanne Lopez, RN Registered Nurse Pulmonary Disease 08/24/22 Ben Chahal MD PhD [address] [facility] [address] [place] [address] Medical Oncologist/Hematologis t Medical Oncology 10/05/22 Giovanna Alexis MD [address] [place] [address] Radiation Oncologist Radiation Oncology 03/09/23 Abby Higgins MD PhD [address] DIV IM MEDICAL ONCOLOGY, [facility] 7A, 7B, [address] [place] [address] Medical Oncologist/Hematologis t Medical Oncology 05/10/23 Adrian Martinez MD [address] DIV SURG TRANSPLANT, [address] [place] [address] Surgical Oncologist Surgical Oncology 05/28/23 Vera Pérez PA [id number] [place] [address] Physician Brick Handler Colon and Rectal Surgery 09/13/23 Jim Frausto MD [address] [facility] [id number] [place] [address] Surgeon Colon and Rectal Surgery 11/21/23
--- OUTSIDE RECORDS SUMMARY | 2025-04-07 19:40 | XMS_ITS | Encounter Summary ---
Author Organization [facility] Address [address] [place] [address] Phone Care Team Providers Care A/C Technician Name Role Phone Kenton Ricks MD Primary Care Provider + [phone] Kenton Ricks MD Primary Care Provider + [phone] Pebbles Nelson MD Unavailable [phone] Aylin Russ MD Unavailable [phone] Maricruz Ramirez NP Unavailable [phone] Joanne Lopez RN Unavailable Padmini Leatha Carter Unavailable Unavailable Ben Chahal MD PhD Unavailable +[phone] Chace Oliva MD Unavailable [phone] Giovanna Alexis MD Unavailable Taisha Suarez RN Unavailable Unavaila Sandra Aguirre MD Unavailable [phone] Abby Higgins MD PhD Unavailable + Adrian Martinez MD Unavailable Vera Pérez Unavailable Jim Frausto MD Unavailable Анна Robert RN Unavailable [phone] Encounter Details Date Type Department Care Team (Late st Contact Info) Description 11/30/2014 Orders Only [facility] Provider, MD Max [address] [place] [id number] Social History Tobacco Use Types Packs/Day Years Used Date Smoking Tobacco: Never Assessed Sex and Gender Information Value Date Recorded Sex Assigned at Not on file Legal Sex Male 12:58 AM ARC AIR OPERATOR Gender Identity Male 11/11/2018 10:31 AM CDT Sexual Orientation Straight 06/09/2019 5: 34 PM ARC AIR OPERATOR documented as of this encounter Plan [...] COVID: Suspected 06/07/2023 06/07/2023 06/07/2023 12:46 PM ARC AIR OPERATOR COVID19 06/07/2023 06/07/2023 06/22/2023 3:06 AM ARC AIR OPERATOR COVID: Recovered Comment:Added based on recent COVID infection. 06/22/2023 06/22/2023 09/20/2023 3:05 AM C DT COVID: Suspected 07/24/2023 07/24/2023 07/24/2023 3:53 PM ARC AIR OPERATOR Diarrhea 07/30/2023 07/30/2023 08/13/2023 3:05 AM ARC AIR OPERATOR COVID: Suspected 08/30/2023 08/30/2023 08/30/2023 4:52 PM ARC AIR OPERATOR COVID: Suspected 10/12/2023 10/12/2023 10/12/2023 7:57 PM CDT Rhino/Enterovirus 10/12/2023 10/12/2023 10/26/2023 3:05 AM CDT COVID: Suspected 07/10/2024 07/10/2024 07/10/2024 4:53 PM ARC AIR OPERATOR COVID: Suspected Comment:07/16/2024 IP Review: no outstanding test, last RPP negative. Mary Tiwari RN 07/16/2024 07/16/2024 10:51 AM ARC AIR OPERATOR COVID19 Comment:07/16/2024 IP Review: added by RN, RPP negative. Mary Tiwari RN 07/16/2024 07/16/2024 07/16/2024 10:51 AM ARC AIR OPERATOR MRSA Comment:nasalMRSA Isolation Shelter 09/03/24 07/16/2024 08/15/2024 09/03/2024 6:[address] C. difficile suspected 07/19/2024 07/19/202407/19 2:34 PM ARC AIR OPERATOR COVID: Suspected 07/23/2024 07/23/2024 07/23/2024 11:28 PM ARC AIR OPERATOR C. difficile suspected 07/23/2024 07/24/202407/24 10:31 AM ARC AIR OPERATOR Norovirus suspected 07/23/2024 07/24/2024 07/24/19 9:37 AM ARC AIR OPERATOR VRE Comment:Contact Precautions (gown and gloves) - not eligible for IP review until 6 months after positive culture - Jerod QURESHI, CONY 10/01/24 07/24/2024 09/20/2024 03/19/2025 7:26 PM C DT COVID: Suspected 08/09/2024 08/09/2024 08/09/2024 9:40 AM ARC AIR OPERATOR Influenza, adult Comment:08/26/2024 IP Review: pt afebrile but on antipyretics. Needs 24 hours off antipyretics and symptoms significantly improved/resolved in order for isolation to be discontinued. Mary Tiwari RN 08/15/2024 08/15/2024 08/29/2024 3:06 AM ARC AIR OPERATOR Coronavirus, droplet 08/15/2024 08/15/202408/29/ 025 3:06 AM ARC AIR OPERATOR C. difficile suspected 09/19/2024 09/19/202409/20 3:05 [...] documented as of this encounter Care Teams A/C Technician Relationship Specialty Start Date End Date Kenton Ricks MD PCP - General 08/14/16 Kenton Ricks MD PCP - General 09/17/08 08/13/16 Pebbles Nelson MD Referring Physician Cardiology 02/07/19 Aylin Russ MD [address] [facility] [address] [place] [address] Referring Physician Pulmonary Disease 02/07/19 Maricruz Ramirez NP [address] [facility] [address] [place] [address] Nurse Practitioner Cardiovascular Disease 09/25/21 Joanne Lopez, [place] Registered Nurse Pulmonary Disease 08/24/22 Leatha Cristina RMA Surgical Prehabilitation and Readiness (SPAR) Coordinator 09/01/22 01/02/23 Ben Chahal MD PhD [address] [facility] [address] [place] [address] Medical Oncologist/Occupational Therapy Asst Medical Oncology 10/05/22 Chace Oliva MD [address] [facility] [address] [place] [address] Consulting Physician Infectious Diseases 12/22/2204/01 Giovanna Alexis MD [address] [place] [address] Radiation Oncologist Radiation Oncology 03/09/23 Taisha Suarez, driver merchandiser Prehabilitation and Readiness (SPAR) Coordinator General Surgery 03/20/23 04/10/23 Sandra Ma MD [address] IM MEDICAL ONCOLOGY, [address] [place] [address] Consulting Physician Medical Oncology 04/25/23 05/09/23 Abby Higgins MD PhD [address] DIV IM MEDICAL ONCOLOGY, [address]A, [address]B, [address] [place] [address] Medical Oncologist/Occupational Therapy Asst Medical Oncology 05/10/23 Adrian Martinez MD [address] DIV SURG TRANSPLANT, [facility] [address] [place] [address] Surgical Oncologist Surgical Oncology 05/28/23 Vera Pérez PA [address] [place] [id number] [place] [address] Physician Masonry Inspector Colon and Rectal Surgery 09/13/23 Jim Frausto MD [address] [facility] [id number] [place] [address] Surgeon Colon and Rectal Surgery 11/21/23 Анна Robert, RN [address] [facility] [address] [place] [address] SHOP Outpatient Civil Project Engineer 09/29/24 10/01/24 documented as of this encounter
--- OUTSIDE RECORDS SUMMARY | 2025-04-07 19:40 | XMS_ITS ---
Author Organization [facility] Address [address] [place] [address] Care Team Providers Care Printing Supplies Sales Representative Name Role Phone Kenton Ricks MD Primary Care Provider + [phone] Pebbles Nelson MD Unavailable [phone] Aylin Russ MD Unavailable [phone] Maricruz Ramirez NP Unavailable [phone] Joanne Lopez RN Unavailable Padmini Ben Walker MD PhD Unavailable [phone] Giovanna Alexis MD Unavailable Abby Higgins MD PhD Unavailable + Adrian Martinez MD Unavailable [phone] Vera Pérez Unavailable [phone] Jim Frausto MD Unavailable [phone] Active Problems Problem Noted Date Diagnosed Date [...] 08/23/2024 Assessment & Plan (08/26/2024 3:51 PM CHINCHILLA MACHINE OPERATOR): The patient reported left eye [...] 08/11/2024 Assessment & Plan (08/26/2024 4:05 PM CHINCHILLA MACHINE OPERATOR): Patient developed hematemesis on 08/11 [...] 08/04/2024 Assessment & Plan (08/22/2024 10:54 PM CHINCHILLA MACHINE OPERATOR): Started allopurinol this admission Moderate [...] PPI Assessment & Plan (08/11/2024 8:44 PM CHINCHILLA MACHINE OPERATOR): - Recent admission 07/10-07/20 for [...] 07/16/2024 Assessment & Plan (07/20/2024 11:28 AM CHINCHILLA MACHINE OPERATOR): - Resulted with Nystatin Anal fissure 11/21/2023 Assessment & Plan (01/15/2025 11:15 AM CDT): -Continue prn lidocaine WA and nifedipine ointment Assessment & Plan (01/14/2025 11:42 AM CDT): -Continue prn lidocaine WA and nifedipine ointment Assessment & Plan (01/13/2025 12:04 PM CDT): -Continue prn lidocaine WA and nifedipine ointment Assessment & Plan (01/13/2025 1:06 AM CDT): -Continue prn lidocaine WA and nifedipine ointment Assessment & Plan (12/10/2024 [...] topical CCB - cannot obtain her at [facility] Assessment & Plan (11/22/2024 12:07 PM CDT): - psyllium qAM, added miralax daily - Added lidocaine jelly qid prn - Sitz baths BID - Will try to start topical CCB - cannot obtain her at [facility] Assessment & Plan (11/21/2024 11:50 AM CDT): - psyllium qAM, added miralax daily - Added lidocaine jelly qid prn - Sitz baths BID - Will try to start topical CCB - cannot obtain her at [facility] Assessment & Plan (11/20/2024 11:11 AM [...] Plan (11/24/2024 9:17 AM CDT): -CPAP at [facility] Assessment & Plan (11/23/2024 9:48 AM CDT): -CPAP at [facility] Assessment & Plan (11/22/2024 12:07 PM CDT): -CPAP at [facility] Assessment & Plan (11/21/2024 11:50 AM CDT): -CPAP at [facility] Assessment & Plan (11/20/2024 11:11 AM CDT): -CPAP at [facility] Assessment & Plan (11/20/2024 1:34 AM CDT): -CPAP at [facility] Assessment & Plan (10/15/2023 [...] albuterol Assessment & Plan (08/26/2024 4:00 PM CHINCHILLA MACHINE OPERATOR): Cont. breo ellipta, prn albuterol [...] 07/25/2023 Assessment & Plan (07/26/2023 12:35 PM CHINCHILLA MACHINE OPERATOR): - Likely multifactorial 2/2 malignancy, recent whipple, chemotherapy, and pain - Very poor PO intake - RD c/s - Started Mirtazapine - Dietary supplementation - Increased Creon as above Malaise 07/24/2023 Assessment & Plan (07/25/2023 2:16 PM CHINCHILLA MACHINE OPERATOR): - RVP negative - Improving Kidney lesion 07/21/2023 Assessment & Plan (07/25/2023 2:21 PM CHINCHILLA MACHINE OPERATOR): - Left renal cyst noted [...] prn Assessment & Plan (07/26/2023 12:33 PM CHINCHILLA MACHINE OPERATOR): - Acute on chronic epigastric [...] 07/09/2023 Assessment & Plan (07/24/2023 5:22 PM CHINCHILLA MACHINE OPERATOR): - Replace per protocol Class 1 obesity due to exces s calories with serious comorbidity and body mass index (BMI) of 34.0 to 34.9 in adult 06/01/2023 H/O Whipple procedure 05/30/2023 Gastrointestinal hemorrhage 05/30/2023 Assessment & Plan (07/14/2024 12:30 PM CHINCHILLA MACHINE OPERATOR): History of Postoperative GI bleed. [...] 8/6 BCx x2 NGTD - 02/04 RPP 02/04 negative - 12/14 BCx w/ 1 of 2 (+) E. coli Anti-infectives: - Cefepime 02/04-02/07 - Linezolid 02/04-02/07 - Metronidazole 02/05-02/07 Plan: - Continue observing off of antibiotics Neurogenic bladder 02/05/2023 Assessment & Plan (07/21/2023 2:06 AM CHINCHILLA MACHINE OPERATOR): Also has Hx of prostate cancer s/p prostatectomy. Takes gemtesa at home which is not on formulary - continue home oxybutynin and flomax Assessment & Plan (02/09/2023 3:46 PM CDT): Patient presented w/ low urine output and asymptomatic urinary retention, required straight cath in [facility], currently voiding and emptying appropriately [...] 11/21/2022 Assessment & Plan (08/26/2024 4:05 PM CHINCHILLA MACHINE OPERATOR): The patient presented with elevated [...] he is scheduled MRI in December at [facility] (requires cardiac monitoring due to ICD) - he is hoping to have this done sooner. Ileus 11/21/2022 Assessment & Plan (07/20/2024 11:29 AM CHINCHILLA MACHINE OPERATOR): - KUB done 07/13 showing [...] 10/08/2022 Assessment & Plan (07/21/2023 2:04 AM CHINCHILLA MACHINE OPERATOR): Diagnosed in August 2022, now s/p course of Eliquis. Presented with trace b/l lower ext edema, b/l erythema and mild tenderness which per patient is increased from baseline. Had similar presentation last hospitalization and LE duplex 06/07 was negative - CTM and consider rescanning if persistent Assessment & Plan (06/09/2023 4:47 PM CHINCHILLA MACHINE OPERATOR): Hx of DVT in August [...] of mets or infection and transferred from [facility] to [facility]. ID here with low concern for MET[employer] infection. - CT neck/soft tissue with contrast: [...] due to ICD. Plan to transfer to [facility] for further evaluation w/ possible MRI brain and LP. Rash 09/23/2022 Assessment & Plan (06/12/2023 3:50 PM CHINCHILLA MACHINE OPERATOR): - contact dermatitis? Not concerned [...] to melisa skin necrosis. - transfer to [facility] for derm eval Anemia 09/22/2022 Assessment & Plan (07/26/2023 12:35 PM CHINCHILLA MACHINE OPERATOR): Acute on chronic. 7.4 on [...] negative. Assessment & Plan (06/12/2023 3:46 PM CHINCHILLA MACHINE OPERATOR): HGb 7, plt 94, wbc [...] 09/22/2022 Assessment & Plan (07/26/2023 12:34 PM CHINCHILLA MACHINE OPERATOR): Has Hx of ileus. On scheduled Linzess, Miralax and PRN Senna-Docusate at home. Patient states he's been having 4-5 soft stools daily - Increased Creon as above. Bowel regimen. Assessment & Plan (06/07/2023 11:26 PM CHINCHILLA MACHINE OPERATOR): Continue home regimen of Linzess, [...] (08/30/2022): Added automatically from request for surgery [id number] Assessment & Plan (10/15/2023 2:34 PM CDT): Hx of L axillary nodes on CT increased from prior study Should f/u with Dr. Chahal Assessment & Plan (10/13/2023 2:03 PM CDT): Hx of L axillary nodes on CT increased from prior study Should f/u with Dr. Chahal Assessment & Plan (07/26/2023 12:31 PM CHINCHILLA MACHINE OPERATOR): - s/p whipple. Follows with [...] plan to hold of next cycle of Volin/Abraxane till infectious etiology is ruled out Assessment [...] plan to hold of next cycle of Volin/Abraxane till infectious etiology is ruled out Assessment [...] surveillance Assessment & Plan (08/26/2024 4:00 PM CHINCHILLA MACHINE OPERATOR): s/p whipple with PV/SMV resection (04/2023) and neoadjuvant chemo (completed 08/2023). Most recent scan showed no evidence of disease recurrence Currently on surveillance with CA 19-[address] CAP every 3 months Assessment & Plan (07/10/2024 10:48 PM CHINCHILLA MACHINE OPERATOR): Pancreatic cancer s/p Whipple with PV/SMV resection on 04/11/2023 s/p neoadjuvant tx, On surveillance OP follow up. Assessment & Plan (06/08/2023 5:32 PM CHINCHILLA MACHINE OPERATOR): Pancreatic adenocarcinoma sp Whipple, now [...] 1 Assessment & Plan (08/25/2022 12:23 PM CHINCHILLA MACHINE OPERATOR): Recurrent UTI followed by ID [...] 06/09/2019 Assessment & Plan (06/09/2019 12:54 PM CHINCHILLA MACHINE OPERATOR): He is agreeable to rescheduling [...] aldactone Assessment & Plan (07/14/2024 12:35 PM CHINCHILLA MACHINE OPERATOR): HFpEF Euvolemic, normotensive On hold diuretics for now given pt NPO on IVF for ileus, will restart once able to take in po Assessment & Plan (06/11/2023 10:01 PM CHINCHILLA MACHINE OPERATOR): ECHO 11/21 EF 69%, grade [...] diet Assessment & Plan (08/24/2022 1:10 PM CHINCHILLA MACHINE OPERATOR): Stable, continued torsemide, spironolactone Assessment & Plan (09/24/2021 12:42 AM CDT): Patient is feeling better. states legs have decreased by half. Continue with IV lasix. Continue to monitor Cr and lytes as we diurese. Holding torsemide. Continue aldactone with hold parameters. Assessment & Plan (08/18/2018 1:16 AM CHINCHILLA MACHINE OPERATOR): Patient presented with increased shortness [...] NPPV Assessment & Plan (08/26/2024 4:02 PM CHINCHILLA MACHINE OPERATOR): continue nightly CPAP Assessment & Plan (07/21/2023 6:17 AM CHINCHILLA MACHINE OPERATOR): Desaturations noted in the ED during sleep per on monitor while on RA (not recorded) - continue nightly BiPAP Assessment & Plan (06/07/2023 11:32 PM CHINCHILLA MACHINE OPERATOR): Continue nightly BiPAP Assessment & [...] 8:24 AM CDT): -resume home CPAP at [facility] Assessment & Plan (09/22/2022 3:17 AM CDT): -resume home CPAP at [facility] Assessment & Plan (08/24/2022 1:08 PM CHINCHILLA MACHINE OPERATOR): - home CPAP machine use Assessment & Plan (09/24/2021 12:39 AM CDT): Patient has home NPPV which has been reordered. 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 Restart CPAP Shortness of breath at rest 08/18/2018 Assessment & Plan (08/18/2018 1:27 AM CHINCHILLA MACHINE OPERATOR): Patient with complex past medical [...] 07/26/2018 Assessment & Plan (08/26/2024 4:05 PM CHINCHILLA MACHINE OPERATOR): H/o vtach s/p ICD 2013 EP consulted for MRCP earlier in admission. Patient's device is conditioned for MRI. Risk stratification: standard Assessment & Plan (07/10/2024 10:38 PM CHINCHILLA MACHINE OPERATOR): History of ventricular tachycardia ICD in place Assessment & Plan (07/21/2023 2:11 PM CHINCHILLA MACHINE OPERATOR): Follows with Dr. Nelson in [...] Aug Assessment & Plan (06/11/2023 9:59 PM CHINCHILLA MACHINE OPERATOR): Follows with Dr. Nelson in EP for history of VT s/p ICD. Denies any recent shocks, as per not there was unscheduled alarm this month due to RV lead impedance. Has outpatient appointment in August Outpatient follow up with EP Assessment & Plan (03/18/2023 1:23 AM CDT): Monitor. MRI conditional. If needs MRI, will need to go to [facility]. Assessment & Plan (02/05/2023 6:58 PM [...] ordered Assessment & Plan (08/18/2018 1:17 AM CHINCHILLA MACHINE OPERATOR): Last device interrogation was in [...] s/p shoulder surgery. Follows with Dr. Russ ([facility]) as OP. On Symbicort at home. 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 Russ - c/w Breo-Ellipta Assessment & Plan (08/18/2018 1:17 AM CHINCHILLA MACHINE OPERATOR): Continue with gabapentin Chronic heart [...] PO Assessment & Plan (08/26/2024 4:06 PM CHINCHILLA MACHINE OPERATOR): Volume down on admission due to diarrhea, now appear slightly volume up, likely I/s/o transfusions and held diuretics Continue to hold home torsemide and spironolactone for now, consider gently resuming prior to discharge Assessment & Plan (07/26/2023 12:34 PM CHINCHILLA MACHINE OPERATOR): BLE edema with erythema noted [...] night and received 5 units IV insulin 9 HgbA1c 8.2 -Tresiba 30<40units -Lispro 10<13U TIDAC -SSI Assessment & Plan (04/02/2025 6:14 PM CDT): Home regimen: tresiba 35U QAM, lispro 12U TIDAC. Blood sugar over 400 last night and received 5 units IV insulin 9 HgbA1c 8.2 -Tresiba 30U QAM. Additional 10 [...] elevated at home, he can contact his PCP/claims adjuster for further insulin adjustments. Assessment & Plan [...] regimen Assessment & Plan (08/26/2024 4:05 PM CHINCHILLA MACHINE OPERATOR): Last A1c 8.4. Home regimen: tresiba 45 units, novolog 12 units w/ breakfast and dinner, 8 units with lunch and sliding scale 1:50 > 150 Continue lantus 5 units qam + SSI Assessment & Plan (07/17/2024 2:29 PM CHINCHILLA MACHINE OPERATOR): - On tresiba 24U Qam [...] hdssi Assessment & Plan (07/26/2023 12:33 PM CHINCHILLA MACHINE OPERATOR): Insulin dependant. Home regimen: Tresiba 42 units qam, Meal-time insulin 15u tid, SSI. Has had poor oral intake over last 2-3 weeks. He mentions his Stephen 2 sensor has been recording low sugars in 40s-50s overnight for 1 week - SSI inpatient - QID accuchecks Assessment & Plan (06/08/2023 5:39 PM CHINCHILLA MACHINE OPERATOR): Hgb1c 8.4% in 04/23, follows [...] -SSI Assessment & Plan (08/24/2022 1:07 PM CHINCHILLA MACHINE OPERATOR): -Home regimen metformin + Tresiba 35 units qAM and novolog 11 units with meals plus SSI -Continue basal bolus regimen, dose reduced while inpatient -Accuchecks Assessment & Plan (09/24/2021 12:38 AM CDT): Patient on PO hypoglycemics. Monitor on SSI. Assessment & Plan (06/09/2019 12:53 PM CHINCHILLA MACHINE OPERATOR): Diet controlled. A1C at goal. On ARB. Follow up with [facility] as previously scheduled. Recommend statin for primary [...] 09/06/2015 Assessment & Plan (06/09/2019 12:49 PM CHINCHILLA MACHINE OPERATOR): Nodule has not grown on interim imaging. Needs low dose dexamethasone suppression test annually x 5 years since initial evaluation given propensity of some adrenal nodules to become cortisol secreting overtime. Thyroid nodule 09/06/2015 Assessment & Plan (06/09/2019 12:48 PM CHINCHILLA MACHINE OPERATOR): S/p FNA with benign cytology. Will repeat US in the spring to monitor biopsied thyroid nodule for growth. Multinodular goiter 05/10/2015 Hernia of abdominal wall 02/18/2015 Assessment & Plan (06/09/2019 12:54 PM CHINCHILLA MACHINE OPERATOR): He will follow up with Dr. 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 Higgins in [...] 02/23/2012 Assessment & Plan (08/26/2024 4:06 PM CHINCHILLA MACHINE OPERATOR): continue home rosuvastatin consider resuming ASA Assessment & Plan (07/10/2024 10:44 PM CHINCHILLA MACHINE OPERATOR): Cath in 10/2023 nonobstructive coronary [...] asthma Assessment & Plan (07/21/2023 2:06 AM CHINCHILLA MACHINE OPERATOR): Follows with Dr. Nelson - Continue home Breo and PRN albuterol inhaler Assessment & Plan (06/07/2023 11:31 PM CHINCHILLA MACHINE OPERATOR): Follows with Dr. Nelson in pulmonary -Continue home Breo and PRN albuterol inhaler Assessment & Plan (09/25/2022 1:41 AM CDT): -Continue home inhalers. Assessment & Plan (09/22/2022 11:00 AM CDT): Continue home inhalers. Assessment & Plan (08/21/2022 4:13 AM CHINCHILLA MACHINE OPERATOR): -Symbicort replaced with formulary Breo [...] albumin-bound PACLItaxel (ABRAXANE)albu min-bound PACLItaxel (ABRAXANE) 5 mg/mLgemcitabi ne (GEMZAR)gemcit abine IVPB in 250 mL [...] Automatic Entry Manual Entr y Fluoro Time 45.9 minutes 43.8 minutes 2.1 minutes Air kerma at the reference point (Ka,r) 2,185.8 mGy 1 ,193.9 mGy 991.9 mGy DLP 62,188 mGycm 62,188 mGycm 0 mGycm DAP 622.67 Gy-cm2 0 Gy-cm2 622.67 Gy-cm2 Resolved Problems Problem Noted Date Diagnosed Date Resolved Date Abdominal pain, generalized 01/12/2025 01/13/2025 Ventilator associated pneumonia 08/22/2024 08/22/2024 Acute hypoxemic respiratory failure 08/22/2024 08/23/2024 Assessment & Plan (08/22/2024 8:41 PM CHINCHILLA MACHINE OPERATOR): Fevers + O2 requirement Aug 14, subsequently found to be positive for Influenza A and Coronavirus ([id number]). 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 S/p tamiflu, Linezolid (08/15-08/18), Cefepime (08/15- 08/17), Ciprofloxacin (08/08). Currently on RA. - supportive care Dysuria 07/25/2024 08/24/2024 Assessment & Plan (08/22/2024 10:12 PM CHINCHILLA MACHINE OPERATOR): Now resolved. UA on admission [...] 07/25/2024 Assessment & Plan (07/29/2024 3:21 PM CHINCHILLA MACHINE OPERATOR): Pt reports new burning pain [...] 07/24/2024 Assessment & Plan (08/02/2024 11:26 AM CHINCHILLA MACHINE OPERATOR): Resolved - Baseline Cr 0.5. Cr on admission was 1.01 - Likely pre-renal due to diarrhea - improved with IVF Dehydration 07/24/2024 08/26/2024 Assessment & Plan (07/26/2024 12:35 PM CHINCHILLA MACHINE OPERATOR): - due to diarrhea - s/p 1L IVF bolus in [facility] and maintenance IVF Diarrhea 07/19/2024 08/24/2024 Assessment & Plan (08/09/2024 2:16 PM CHINCHILLA MACHINE OPERATOR): - P/w 1-day history of [...] resolved Assessment & Plan (07/20/2024 11:33 AM CHINCHILLA MACHINE OPERATOR): - Developed after resolution of ileus. - C diff negative - Increased Creon back to home dose - Imodium prn - Hold Linzess until diarrhea resolved Abdominal pain 11/09/2023 08/25/2024 Assessment & Plan (08/11/2024 8:39 PM CHINCHILLA MACHINE OPERATOR): Acute on chronic abdominal pain. [...] hematemesis Assessment & Plan (07/14/2024 12:31 PM CHINCHILLA MACHINE OPERATOR): Hx of pancreatic cancer s/p whipple presented initially to the [facility] with abd pain , nausea [...] NSAIDs Assessment & Plan (07/10/2024 9:32 PM CHINCHILLA MACHINE OPERATOR): Hx of pancreatic cancer s/p whipple presented initially to the [facility] with abd pain , nausea [...] 08/24/2024 Assessment & Plan (08/11/2024 8:40 PM CHINCHILLA MACHINE OPERATOR): Complained chest pain at left [...] 08/01/2024 Assessment & Plan (08/01/2024 2:54 PM CHINCHILLA MACHINE OPERATOR): -has ICD in place Assessment [...] 03/31/2025 Assessment & Plan (06/12/2023 3:47 PM CHINCHILLA MACHINE OPERATOR): Presented with 3 days of [...] 08/22/2024 Assessment & Plan (08/05/2024 11:42 PM CHINCHILLA MACHINE OPERATOR): RESOLVED. DDx include viral infection [...] prn. Assessment & Plan (07/20/2024 11:30 AM CHINCHILLA MACHINE OPERATOR): - Developed fever 38.4 C [...] which raise concern for an infectious syndrome -DIFFUSION FURNACE OPERATOR swab RPP negative -check blood cultures; hold [...] 10/28/2022 Assessment & Plan (08/24/2022 1:12 PM CHINCHILLA MACHINE OPERATOR): Referred pancreatitis pain. 12 lead EKG shows no acute changes, baseline NSR with RBB and intrafascicular block. Trop negative. Elevated transaminase level 08/21/2022 10/28/2022 Assessment & Plan (08/24/2022 1:10 PM CHINCHILLA MACHINE OPERATOR): First noted to have elevated [...] 023 Assessment & Plan (08/22/2022 2:20 PM CHINCHILLA MACHINE OPERATOR): Diagnosed as outpatient and started on fidaxomicin by ID 08/16/2022. Still with persistent diarrhea. -Continue fidaxomicin -ID following Pancreatic lesion 08/20/2022 10/28/2022 Overview (08/21/2022): Added automatically from request for surgery [id number] Assessment & Plan (08/24/2022 1:08 PM CHINCHILLA MACHINE OPERATOR): S/P EUS wit FNA confirmed adenocarcinoma. GI arranging oncology and surgical follow up as outpatient Urinary tract infection asso ciated with cystostomy catheter, initial encounter 04/09/2022 0 10/28/2022 Brugada syndrome 07/09/2020 09/10/2020 Cough in adult 06/09/2019 10/28/2022 Assessment & Plan (06/09/2019 12:52 PM CHINCHILLA MACHINE OPERATOR): This appears to be chronic and persist despite switching from ACEI to ARB. 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 Urinary incontinence 08/18/2018 023 Assessment & Plan (08/18/2018 1:22 AM CHINCHILLA MACHINE OPERATOR): Continue with Myrbetriq and vesicare [...] 10/28/2022 Assessment & Plan (06/09/2019 12:47 PM CHINCHILLA MACHINE OPERATOR): Congratulated on recent weight loss. Continue attention to diet, low carb, exercise as able. 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
--- OUTSIDE RECORDS SUMMARY | 2025-04-07 19:40 | XMS_ITS | Encounter Summary ---
Author Organization [facility] Address [address] [place] [address] Care Team Providers Care Family Living Educator Name Role Phone Kenton Ricks MD Primary Care Provider [phone] Encounter Details Date Type Department Care Team (Late st Contact Info) Description 12/24/2001 Outpatient [facility] [address] [place] [address]. 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 [id number] PCP - General Family Practice 11/15/18 documented as of this encounter
--- OUTSIDE RECORDS SUMMARY | 2025-04-07 19:40 | XMS_ITS | Clinical Summary ---
Author Organization [facility] Address [address] [place] [address] Care Team Providers Care Tourist Agent Name Role Phone Kenton Ricks MD Primary Care Provider [phone] Source Comments [facility],non-owned Affiliates and Associated Physician Practices is amultiple site organization consisting of ambulatory clinics and hospital sitesin [place], [place], [place] and [place]. This disclosure is being madepursuant to the Care Everywhere program and may not contain all information available regarding this patient. Last updated 18.[facility] Medications * Be aware that medications may [...] on file Legal Sex Male 6:18 AM MESSAGE AND DELIVERY SERVICE PRICER Gender Identity Not on file Sexual Orientation Not on file Last Filed Vital Signs Vital Sign Reading Time Taken Comments Blood Pressure 126/67 07/06/2017 11:17 AM MESSAGE AND DELIVERY SERVICE PRICER Pulse 60 07/06/2017 11:17 AM MESSAGE AND DELIVERY SERVICE PRICER Temperature 36.4 C (97.5 F) 07/06/2017 11:17 AM MESSAGE AND DELIVERY SERVICE PRICER Respiratory Rate 16 06/29/2017 12:33 PM MESSAGE AND DELIVERY SERVICE PRICER Oxygen Saturation 99% 07/06/2017 11:17 AM MESSAGE AND DELIVERY SERVICE PRICER Inhaled Oxygen Concentration - - Weight 115.7 kg (255 lb) 07/06/2017 11:17 AM MESSAGE AND DELIVERY SERVICE PRICER Height 175.3 cm (5' 9) 07/06/2017 11:17 AM MESSAGE AND DELIVERY SERVICE PRICER Body Mass Index 37.66 07/06/2017 11:17 AM MESSAGE AND DELIVERY SERVICE PRICER Plan of Treatment Health Maintenance Due Date Last Done Comments COLOGUARD (AGES 45-75) - COLON CA SCREENING 1955 CT COLONOGRAPHY - COLON CA SCREENING 1955 FIT - COLON CA SCREENING 1955 FLEX SIG - COLON CA SCREENING 1955 LIPID TESTING 1955 DTAP/TDAP/TD VACCINES (1 - Tdap) 1974 PNEUMOCOCCAL VACCINE 50+ (1 of 1 - PCV) 2005 ZOSTER VACCINE (1 of 2) 2005 DEPRESSION SCREENING 07/02/2024 COVID-19 VACCINE (1 - 2023- season) 2025 INFLUENZA VACCINE (#1) 2025 , 04/01/2017, 06/14/2016, [...] age to complete this topic Care Teams Tourist Agent Relationship Specialty Start Date End Date Kenton Ricks MD [address] [place] [address] PCP - General Family Medicine 08/20/15
--- OUTSIDE RECORDS SUMMARY | 2025-04-07 19:40 | XMS_ITS | Encounter Summary ---
Author Organization [facility] Address [address] [place] [address] Phone Care Team Providers Care Victim Witness Administrator Name Role Phone Kenton Ricks MD Primary Care Provider + [phone] Kenton Ricks MD Primary Care Provider + [phone] Pebbles Nelson MD Unavailable Aylin Russ MD Unavailable [phone] Maricruz Ramirez NP Unavailable [phone] Joanne Lopez RN Unavailable Padmini Leatha Carter Unavailable Unavailable Ben Chahal MD PhD Unavailable +[phone] Chace Oliva MD Unavailable [phone] Giovanna Alexis MD Unavailable Taisha Suarez RN Unavailable Unavaila Sandra Aguirre MD Unavailable +[phone] Abby Higgins MD PhD Unavailable + Adrian Martinez MD Unavailable Vera Pérez Unavailable Jim Frausto MD Unavailable Анна Robert RN Unavailable [phone] Encounter Details Date Type Department Care Team (Late st Contact Info) Description 02/25/2014 Orders Only [facility] Provider, MD Max [address] [place] [address] Social History Tobacco Use Types Packs/Day Years Used Date Smoking Tobacco: Never Assessed Sex and Gender Information Value Date Recorded Sex Assigned at Not on file Legal Sex Male 12:58 AM AGENT CONTRACT CLERK Gender Identity Male 11/11/2018 10:31 AM CDT Sexual Orientation Straight 06/09/2019 5: 34 PM AGENT CONTRACT CLERK documented as of this encounter Plan [...] COVID: Suspected 06/07/2023 06/07/2023 06/07/2023 12:46 PM AGENT CONTRACT CLERK COVID19 06/07/2023 06/07/2023 06/22/2023 3:06 AM AGENT CONTRACT CLERK COVID: Recovered Comment:Added based on recent COVID infection. 06/22/2023 06/22/2023 09/20/2023 3:05 AM C DT COVID: Suspected 07/24/2023 07/24/2023 07/24/2023 3:53 PM AGENT CONTRACT CLERK Diarrhea 07/30/2023 07/30/2023 08/13/2023 3:05 AM AGENT CONTRACT CLERK COVID: Suspected 08/30/2023 08/30/2023 08/30/2023 4:52 PM AGENT CONTRACT CLERK COVID: Suspected 10/12/2023 10/12/2023 10/12/2023 7:57 PM CDT Rhino/Enterovirus 10/12/2023 10/12/2023 10/26/2023 3:05 AM CDT COVID: Suspected 07/10/2024 07/10/2024 07/10/2024 4:53 PM AGENT CONTRACT CLERK COVID: Suspected Comment:07/16/2024 IP Review: no outstanding test, last RPP negative. Mary Tiwari RN 07/16/2024 07/16/2024 10:51 AM AGENT CONTRACT CLERK COVID19 Comment:07/16/2024 IP Review: added by RN, RPP negative. Mary Tiwari RN 07/16/2024 07/16/2024 07/16/2024 10:51 AM AGENT CONTRACT CLERK MRSA Comment:nasalMRSA Isolation Residential 09/03/24 07/16/2024 08/15/2024 09/03/2024 6:[address] C. difficile suspected 07/19/2024 07/19/202407/19 2:34 PM AGENT CONTRACT CLERK COVID: Suspected 07/23/2024 07/23/2024 07/23/2024 11:28 PM AGENT CONTRACT CLERK C. difficile suspected 07/23/2024 07/24/202407/24 10:31 AM AGENT CONTRACT CLERK Norovirus suspected 07/23/2024 07/24/2024 07/24/19 9:37 AM AGENT CONTRACT CLERK VRE Comment:Contact Precautions (gown and gloves) - not eligible for IP review until 6 months after positive culture - Jerod QURESHI, CONY 10/01/24 07/24/2024 09/20/2024 03/19/2025 7:26 PM C DT COVID: Suspected 08/09/2024 08/09/2024 08/09/2024 9:40 AM AGENT CONTRACT CLERK Influenza, adult Comment:08/26/2024 IP Review: pt afebrile but on antipyretics. Needs 24 hours off antipyretics and symptoms significantly improved/resolved in order for isolation to be discontinued. Mary Tiwari RN 08/15/2024 08/15/2024 08/29/2024 3:06 AM AGENT CONTRACT CLERK Coronavirus, droplet 08/15/2024 08/15/202408/29/ 025 3:06 AM AGENT CONTRACT CLERK C. difficile suspected 09/19/2024 09/19/202409/20 3:05 [...] documented as of this encounter Care Teams Victim Witness Administrator Relationship Specialty Start Date End Date Kenton Ricks MD PCP - General 08/14/16 Kenton Ricks MD PCP - General 09/17/08 08/13/16 Pebbles Nelson MD Referring Physician Cardiology 02/07/19 Aylin Russ MD 4523 [facility] 8052 [place] [address] Referring Physician Pulmonary Disease 02/07/19 Maricruz Ramirez NP [address] [facility] [address] [place] [address] Nurse Practitioner Cardiovascular Disease 09/25/21 Joanne Lopez, CONY Registered Nurse Pulmonary Disease 08/24/22 Leatha Cristina RMA Surgical Prehabilitation and Readiness (SPAR) Coordinator 09/01/22 01/02/23 Ben Chahal MD PhD 10 [facility] # 2 [place] [address] Medical Oncologist/Eyeglass Maker Medical Oncology 10/05/22 Chace Oliva MD [address] [facility] [address] [place] [address] Consulting Physician Infectious Diseases 12/22/2204/01 Giovanna Alexis MD [address] # LL LL [address] [place] [address] Radiation Oncologist Radiation Oncology 03/09/23 Taisha Suarez, cable cutter and swager Prehabilitation and Readiness (SPAR) Coordinator General Surgery 03/20/23 04/10/23 Sandra Ma MD [address] [facility] DIV IM MEDICAL ONCOLOGY, ABDI 7A, 7B, 7C [place] [address] Consulting Physician Medical Oncology 04/25/23 05/09/23 Abby Higgins MD PhD [address] DIV IM MEDICAL ONCOLOGY, ABDI 7A, 7B, 7C [place] [address] Medical Oncologist/Eyeglass Maker Medical Oncology 05/10/23 Adrian Martinez MD [address] DIV SURG TRANSPLANT, [facility] [address] [place] [address] Surgical Oncologist Surgical Oncology 05/28/23 Vera Pérez PA [address] [place] [id number] [place] [address] Physician Dowel Inspector Colon and Rectal Surgery 09/13/23 Jim Frausto MD [address] [facility] [id number] [place] [address] Surgeon Colon and Rectal Surgery 11/21/23 Анна Robert, RN 45[address] [facility] 5[address] [place] [address] SHOP Outpatient Spinning Frame Changer 09/29/24 10/01/24 documented as of this encounter
--- OUTSIDE RECORDS SUMMARY | 2025-04-07 19:40 | XMS_ITS | Encounter Summary ---
Author Organization [facility] Address [address] [place] [address] Phone Care Team Providers Care Scrubbing Machine Operator Name Role Phone Kenton Ricks MD Primary Care Provider + [phone] Kenton Ricks MD Primary Care Provider + [phone] Pebbles Nelson MD Unavailable [phone] Aylin Russ MD Unavailable [phone] Maricruz Ramirez NP Unavailable [phone] Joanne Lopez RN Unavailable Pdamini Leatha Carter Unavailable Unavailable Ben Chahal MD PhD Unavailable [phone] Chace Oliva MD Unavailable [phone] Giovanna Alexis MD Unavailable Taisha Suarez RN Unavailable Unavaila Sandra Aguirre MD Unavailable [phone] Abby Higgins MD PhD Unavailable + Adrian Martinez MD Unavailable Vera Pérez Unavailable [phone] Jim Frausto MD Unavailable [phone] Анна Robert RN Unavailable [phone] Encounter Details Date Type Department Care Team (Late st Contact Info) Description 02/20/2014 Orders Only [facility] Provider, MD Max [address] [place] [address] Social History Tobacco Use Types Packs/Day Years Used Date Smoking Tobacco: Never Assessed Sex and Gender Information Value Date Recorded Sex Assigned at Not on file Legal Sex Male 12:58 AM PRODUCTION HONING MACHINE OPERATOR Gender Identity Male 11/11/2018 10:31 AM CDT Sexual Orientation Straight 06/09/2019 5: 34 PM PRODUCTION HONING MACHINE OPERATOR documented as of this encounter [...] COVID: Suspected 06/07/2023 06/07/2023 06/07/2023 12:46 PM PRODUCTION HONING MACHINE OPERATOR COVID19 06/07/2023 06/07/2023 06/22/2023 3:06 AM PRODUCTION HONING MACHINE OPERATOR COVID: Recovered Comment:Added based on recent COVID infection. 06/22/2023 06/22/2023 09/20/2023 3:05 AM C DT COVID: Suspected 07/24/2023 07/24/2023 07/24/2023 3:53 PM PRODUCTION HONING MACHINE OPERATOR Diarrhea 07/30/2023 07/30/2023 08/13/2023 3:05 AM PRODUCTION HONING MACHINE OPERATOR COVID: Suspected 08/30/2023 08/30/2023 08/30/2023 4:52 PM PRODUCTION HONING MACHINE OPERATOR COVID: Suspected 10/12/2023 10/12/2023 10/12/2023 7:57 PM CDT Rhino/Enterovirus 10/12/2023 10/12/2023 10/26/2023 3:05 AM CDT COVID: Suspected 07/10/2024 07/10/2024 07/10/2024 4:53 PM PRODUCTION HONING MACHINE OPERATOR COVID: Suspected Comment:07/16/2024 IP Review: no outstanding test, last RPP negative. Mary Tiwari RN 07/16/2024 07/16/2024 10:51 AM PRODUCTION HONING MACHINE OPERATOR COVID19 Comment:07/16/2024 IP Review: added by RN, RPP negative. Mary Tiwari RN 07/16/2024 07/16/2024 07/16/2024 10:51 AM PRODUCTION HONING MACHINE OPERATOR MRSA Comment:nasalMRSA Isolation Residential 09/03/24 07/16/2024 08/15/2024 09/03/2024 6:[address] C. difficile suspected 07/19/2024 07/19/202407/19 2:34 PM PRODUCTION HONING MACHINE OPERATOR COVID: Suspected 07/23/2024 07/23/2024 07/23/2024 11:28 PM PRODUCTION HONING MACHINE OPERATOR C. difficile suspected 07/23/2024 07/24/202407/24 10:31 AM PRODUCTION HONING MACHINE OPERATOR Norovirus suspected 07/23/2024 07/24/2024 07/24/19 9:37 AM PRODUCTION HONING MACHINE OPERATOR VRE Comment:Contact Precautions (gown and gloves) - not eligible for IP review until 6 months after positive culture - Jerod QURESHI, CONY 10/01/24 07/24/2024 09/20/2024 03/19/2025 7:26 PM C DT COVID: Suspected 08/09/2024 08/09/2024 08/09/2024 9:40 AM PRODUCTION HONING MACHINE OPERATOR Influenza, adult Comment:08/26/2024 IP Review: pt afebrile but on antipyretics. Needs 24 hours off antipyretics and symptoms significantly improved/resolved in order for isolation to be discontinued. Mary Tiwari RN 08/15/2024 08/15/2024 08/29/2024 3:06 AM PRODUCTION HONING MACHINE OPERATOR Coronavirus, droplet 08/15/2024 08/15/202408/29/ 025 3:06 AM PRODUCTION HONING MACHINE OPERATOR C. difficile suspected 09/19/2024 09/19/202409/20 [...] documented as of this encounter Care Teams Scrubbing Machine Operator Relationship Specialty Start Date End Date Kenton Ricks MD PCP - General 08/14/16 Kenton Ricks MD PCP - General 09/17/08 08/13/16 Pebbles Nelson MD Referring Physician Cardiology 02/07/19 Aylni uRss MD 4523 [facility] [address] [place] [address] Referring Physician Pulmonary Disease 02/07/19 Maricruz Ramirez NP 4523 [facility] [address] [place] [address] Nurse Practitioner Cardiovascular Disease 09/25/21 Joanne Lopez, CONY Registered Nurse Pulmonary Disease 08/24/22 Leatha Cristina RMA Surgical Prehabilitation and Readiness (SPAR) Coordinator 09/01/22 01/02/23 Ben Chahal MD PhD 10 [facility] # 2 [place] [address] Medical Oncologist/Deputy Probation Officer Medical Oncology 10/05/22 Chace Oliva MD [address] [facility] [address] [place] [address] Consulting Physician Infectious Diseases 12/22/2204/01 Giovanna Alexis MD [address] # LL LL [address] [place] [address] Radiation Oncologist Radiation Oncology 03/09/23 Taisha Suarez, supervisor records change Prehabilitation and Readiness (SPAR) Coordinator General Surgery 03/20/23 04/10/23 Sandra Ma MD [facility] [facility] DIV IM MEDICAL ONCOLOGY, ABDI 7A, 7B, 7C [place] [address] Consulting Physician Medical Oncology 04/25/23 05/09/23 Abby Higgins MD PhD [address] DIV IM MEDICAL ONCOLOGY, ABDI 7A, 7B, 7C [place] [address] Medical Oncologist/Deputy Probation Officer Medical Oncology 05/10/23 Adrian Martinez MD [address] DIV SURG TRANSPLANT, [facility] [address] [place] [address] Surgical Oncologist Surgical Oncology 05/28/23 Vera Pérez PA [address] [place] [id number] [place] [address] Physician Supervisor Waterworks Colon and Rectal Surgery 09/13/23 Jim Frausto MD [address] [facility] [id number] [place] [address] Surgeon Colon and Rectal Surgery 11/21/23 Анна Robert, RN 45[address] [facility] [address] [place] [address] SHOP Outpatient Vineyard Supervisor 09/29/24 10/01/24 documented as of this encounter
--- OUTSIDE RECORDS SUMMARY | 2025-04-07 19:40 | XMS_ITS | Encounter Summary ---
Author Organization [facility] Address [address] [place] [address] Care Team Providers Care Orchardist Name Role Phone Kenton Ricks MD Primary Care Provider Encounter Details Date Type Department Care Team (Late st Contact Info) Description 09/30/2001 Outpatient [facility] [address] [place] [address]. [place] [address] Anika Rowan MD NO ADDRESS ON FILE Social History Tobacco Use Types Packs/Day Years Used Date Smoking Tobacco: Never Assessed Sex and Gender Information Value Date Recorded Sex Assigned at Not on file Legal Sex Male 4:35 AM MEDICAL SERVICES MANAGER Gender Identity Not on file Sexual Orientation Not on file documented as of this encounter Plan of Treatment Not on file documented as of this encounter Visit Diagnoses Not on filedocumented in this encounter Care Teams Orchardist Relationship Specialty Start Date End Date Kenton Ricks MD [address] [place] [id number] PCP - General Family Practice 11/15/18 documented as of this encounter
--- OUTSIDE RECORDS SUMMARY | 2025-04-07 19:40 | XMS_ITS | Encounter Summary ---
Author Organization [facility] Address [address] [place] [address] Phone Care Team Providers Care Sandblaster Stone Name Role Phone Kenton Ricks MD Primary Care Provider + [phone] Kenton Ricks MD Primary Care Provider + [phone] Pebbles Nelson MD Unavailable [phone] Aylin Russ MD Unavailable [phone] Maricruz Ramirez NP Unavailable [phone] Joanne Lopez RN Unavailable Padmini Leatha Carter Unavailable Unavailable Ben Chahal MD PhD Unavailable [phone] Chace Oliva MD Unavailable [phone] Giovanna Alexis MD Unavailable Taisha Suarez RN Unavailable Unavaila Sandra Aguirre MD Unavailable +[phone] Abby Higgins MD PhD Unavailable + Adrian Martinez MD Unavailable Vera Pérez Unavailable [phone] Jim Frausto MD Unavailable [phone] Анна Robert RN Unavailable [phone] Encounter Details Date Type Department Care Team (Late st Contact Info) Description 09/01/2014 Orders Only [facility] Provider, MD Max [address] [place] [address] Social History Tobacco Use Types Packs/Day Years Used Date Smoking Tobacco: Never Assessed Sex and Gender Information Value Date Recorded Sex Assigned at Not on file Legal Sex Male 12:58 AM DISTRICT ASSOCIATE JUDGE Gender Identity Male 11/11/2018 10:31 AM CDT Sexual Orientation Straight 06/09/2019 5: 34 PM DISTRICT ASSOCIATE JUDGE documented as of this encounter Plan of [...] COVID: Suspected 06/07/2023 06/07/2023 06/07/2023 12:46 PM DISTRICT ASSOCIATE JUDGE COVID19 06/07/2023 06/07/2023 06/22/2023 3:06 AM DISTRICT ASSOCIATE JUDGE COVID: Recovered Comment:Added based on recent COVID infection. 06/22/2023 06/22/2023 09/20/2023 3:05 AM C DT COVID: Suspected 07/24/2023 07/24/2023 07/24/2023 3:53 PM DISTRICT ASSOCIATE JUDGE Diarrhea 07/30/2023 07/30/2023 08/13/2023 3:05 AM DISTRICT ASSOCIATE JUDGE COVID: Suspected 08/30/2023 08/30/2023 08/30/2023 4:52 PM DISTRICT ASSOCIATE JUDGE COVID: Suspected 10/12/2023 10/12/2023 10/12/2023 7:57 PM CDT Rhino/Enterovirus 10/12/2023 10/12/2023 10/26/2023 3:05 AM CDT COVID: Suspected 07/10/2024 07/10/2024 07/10/2024 4:53 PM DISTRICT ASSOCIATE JUDGE COVID: Suspected Comment:07/16/2024 IP Review: no outstanding test, last RPP negative. Mary Tiwari RN 07/16/2024 07/16/2024 10:51 AM DISTRICT ASSOCIATE JUDGE COVID19 Comment:07/16/2024 IP Review: added by RN, RPP negative. Mary Tiwari RN 07/16/2024 07/16/2024 07/16/2024 10:51 AM DISTRICT ASSOCIATE JUDGE MRSA Comment:nasalMRSA Isolation Long Term 09/03/24 07/16/2024 08/15/2024 09/03/2024 6:[address] C. difficile suspected 07/19/2024 07/19/202407/19 2:34 PM DISTRICT ASSOCIATE JUDGE COVID: Suspected 07/23/2024 07/23/2024 07/23/2024 11:28 PM DISTRICT ASSOCIATE JUDGE C. difficile suspected 07/23/2024 07/24/202407/24 10:31 AM DISTRICT ASSOCIATE JUDGE Norovirus suspected 07/23/2024 07/24/2024 07/24/19 9:37 AM DISTRICT ASSOCIATE JUDGE VRE Comment:Contact Precautions (gown and gloves) - not eligible for IP review until 6 months after positive culture - Jerod QURESHI, CONY 10/01/24 07/24/2024 09/20/2024 03/19/2025 7:26 PM C DT COVID: Suspected 08/09/2024 08/09/2024 08/09/2024 9:40 AM DISTRICT ASSOCIATE JUDGE Influenza, adult Comment:08/26/2024 IP Review: pt afebrile but on antipyretics. Needs 24 hours off antipyretics and symptoms significantly improved/resolved in order for isolation to be discontinued. Mary Tiwari RN 08/15/2024 08/15/2024 08/29/2024 3:06 AM DISTRICT ASSOCIATE JUDGE Coronavirus, droplet 08/15/2024 08/15/202408/29/ 025 3:06 AM DISTRICT ASSOCIATE JUDGE C. difficile suspected 09/19/2024 09/19/202409/20 3:05 AM [...] documented as of this encounter Care Teams Sandblaster Stone Relationship Specialty Start Date End Date Kenton Ricks MD PCP - General 08/14/16 Kenton Ricks MD PCP - General 09/17/08 08/13/16 Pebbles Nelson MD Referring Physician Cardiology 02/07/19 Aylin Russ MD 4523 [facility] 8052 [place] [address] Referring Physician Pulmonary Disease 02/07/19 Maricruz Ramirez NP [address] [facility] [address] [place] [address] Nurse Practitioner Cardiovascular Disease 09/25/21 Joanne Lopez, CONY Registered Nurse Pulmonary Disease 08/24/22 Leatha Cristina RMA Surgical Prehabilitation and Readiness (SPAR) Coordinator 09/01/22 01/02/23 Ben Chahal MD PhD 10 [facility] # 2 [place] [address] Medical Oncologist/Plant Breeder Medical Oncology 10/05/22 Chace Oliva MD [address] [facility] [address] [place] [address] Consulting Physician Infectious Diseases 12/22/2204/01 Giovanna Alexis MD [address] # LL LL [address] [place] [address] Radiation Oncologist Radiation Oncology 03/09/23 Taisha Suarez, human services manager Prehabilitation and Readiness (SPAR) Coordinator General Surgery 03/20/23 04/10/23 Sandra Ma MD [address] [facility] [facility] [address] DIV IM MEDICAL ONCOLOGY, ABDI 7A, 7B, 7C [place] [address] Consulting Physician Medical Oncology 04/25/23 05/09/23 Abby Higgins MD PhD [address] DIV IM MEDICAL ONCOLOGY, ABDI 7A, 7B, 7C [place] [address] Medical Oncologist/Plant Breeder Medical Oncology 05/10/23 Adrian Mratinez MD [address] DIV SURG TRANSPLANT, [facility] [address] [place] [address] Surgical Oncologist Surgical Oncology 05/28/23 Vera Pérez PA [address] [place] [id number] [place] [address] Physician Zyglo Inspector Colon and Rectal Surgery 09/13/23 Jim Frausto MD [address] [facility] [id number] [place] [address] Surgeon Colon and Rectal Surgery 11/21/23 Анна Robert, RN 4590 [facility] 5300 [place] [address] SHOP Outpatient Make Up Artist 09/29/24 10/01/24 documented as of this encounter
--- OUTSIDE RECORDS SUMMARY | 2025-04-07 19:40 | XMS_ITS | Encounter Summary ---
Author Organization [facility] Address [address] [place] [address] Phone Care Team Providers Care Stretcher Leveler Operator Helper Name Role Phone Kenton Ricks MD Primary Care Provider + [phone] Pebbles Nelson MD Unavailable [phone] Aylin Russ MD Unavailable [phone] Maricruz Ramirez NP Unavailable [phone] Joanne Lopez RN Unavailable Padmini Ben Walker MD PhD Unavailable [phone] Giovanna Alexis MD Unavailable Abby Higgins MD PhD Unavailable + Adrian Martinez MD Unavailable [phone] Vera Pérez Unavailable [phone] Jim Frausto MD Unavailable [phone] Encounter Details Date Type Department Care Team (Late st Contact Info) Description 02/25/2025 Results Follow-Up [facility] Medicine Dermatology [address] [facility] [address] [place] [address] Kemal Galvez MD 49[address] [facility] [address] [place], [place] [id number] Surgical pathology Social History Tobacco Use Types Packs/Day Years [...] materials from doctor or pharmacy Sometimes 09/03/2023 [facility] Utilities Answer Date Recorded In the past 12 months has e [employer], gas, oil, or water [employer] threatened to shut off services in your [...] often do you attend chur ch or presybeterian services? More than 4 times per year 01/13/2025 Do you belong to any clubs o r organizations such as anabaptist groups, unions, fraternal or athletic groups, or [...] Date Recorded PHQ-2 Total Score 1 09/21/2024 [facility] - Occupational Stress [...] any time in the past 12 [facility], were you homeless or living in a correction (including now)? No 01/13/2025 Personal Safety Answer Date Recorded Have you ever been in or are you currently in a harmful physical or emotional relationship or is someone making you feel afraid or unsafe? Denies 03/01/2025 Sex and Gender Information Value Date Recorded Sex Assigned at Not on file Legal Sex Male 12:58 AM DROP WIRE ALIGNER Gender Identity Male 11/11/2018 10:31 AM CDT Sexual Orientation Straight 06/09/2019 5: 34 PM DROP WIRE ALIGNER documented as of this encounter Plan of Treatment Not on file documented as of this encounter Visit Diagnoses Not on filedocumented in this encounter Additional Health Concerns Infection Onset Date Last Indicated Resolved Time VRE Comment:Contact Precautions (gown and gloves) - not eligible for IP review until 6 months after positive culture - Jerod QURESHI, RN 10/01/24 07/24/2024 09/20/2024 03/19/2025 7:26 PM C DT COVID: Suspected 02/28/2025 02/28/2025 02/28/2025 9:06 PM CDT COVID: Suspected 03/01/2025 03/01/2025 03/01/2025 1:09 AM CDT C. difficile suspected 03/01/2025 03/01/202503/01 1:04 PM CDT Norovirus suspected 03/01/2025 03/01/2025 03/01/20 3:43 PM CDT COVID: Suspected 03/31/2025 03/31/2025 03/31/2025 3:56 PM CDT documented as of this encounter Care Teams Stretcher Leveler Operator Helper Relationship Specialty Start Date End Date Kenton Ricks MD PCP - General 08/14/16 Pebbles Nelson MD Referring Physician Cardiology 02/07/19 Aylin Russ MD [address] [place] [address] Referring Physician Pulmonary Disease 02/07/19 Maricruz Ramirez NP [facility] [facility] [address] [place] [address] Nurse Practitioner Cardiovascular Disease 09/25/21 Joanne Lopez, CONY Registered Nurse Pulmonary Disease 08/24/22 Ben Chahal MD PhD [address] [place] [address] # 2 DIV [place] [address] Medical Oncologist/Hematologis t Medical Oncology 10/05/22 Giovanna Alexis MD 4921 [facility] # LL LL [address]24 [place] [address] Radiation Oncologist Radiation Oncology 03/09/23 Abby Higgins MD PhD [address] DIV IM MEDICAL ONCOLOGY, ABDI 7A, 7B, 7C [place] [address] Medical Oncologist/Hematologis t Medical Oncology 05/10/23 Adrian Martinez MD [address] DIV SURG TRANSPLANT, [address] [place] [address] Surgical Oncologist Surgical Oncology 05/28/23 Vera Pérez PA [address] [id number] [place] [address] Physician Auto Dealership Porter Colon and Rectal Surgery 09/13/23 Jim Frausto MD [address] [facility] [id number] [place] [address] Surgeon Colon and Rectal Surgery 11/21/23 documented as of this encounter
--- OUTSIDE RECORDS SUMMARY | 2025-04-07 19:40 | XMS_ITS | Clinical Summary ---
Author Organization [facility] Address [address] [place] [address] Care Team Providers Care Back Up Machine Operator Name Role Phone Kenton Ricks MD Primary Care Provider [phone] Allergies Active Allergy Reactions Criticality Noted Date [...] file Legal Sex Male 4:35 AM SALES AND SERVICE ENGINEER Gender Identity Not on file Sexual [...] BS BLUE ACCESS/TRUE BLUE PPO Care Teams Back Up Machine Operator Relationship Specialty Start Date End Date Kenton Ricks MD [address] [place] [address] PCP - General Family Practice 11/15/18
--- OUTSIDE RECORDS SUMMARY | 2025-04-07 19:40 | XMS_ITS | Encounter Summary ---
Author Organization [facility] Address [address] [place] [address] Phone Care Team Providers Care Court Commissioner Name Role Phone Kenton Ricks MD Primary Care Provider + [phone] Pebbles Nelson MD Unavailable [phone] Aylin Russ MD Unavailable [phone] Maricruz Ramirez NP Unavailable [phone] Joanne Lopez RN Unavailable Padmini Leatha Carter Unavailable Unavailable Ben Chahal MD PhD Unavailable [phone] Chace Oliva MD Unavailable [phone] Giovanna Alexis MD Unavailable Taisha Suarez RN Unavailable Unavaila Sandra Aguirre MD Unavailable [phone] Abby Higgins MD PhD Unavailable + Adrian Martinez MD Unavailable [phone] Vera Pérez Unavailable [phone] Jim Frausto MD Unavailable [phone] Анна Robert RN Unavailable [phone] Encounter Details Date Type Department Care Team [...] week 10/17/2021 How often do you attend [facility] or confucianism services? More than 4 times per year 10/17/2021 Do you belong to any clubs o r organizations such as hindu groups, unions, fraternal or athletic groups, or [...] place to sleep or slept in a alf (including now)? No 10/17/2021 Sex and Gender Information Value Date Recorded Sex Assigned at Not on file Legal Sex Male 12:58 AM WATER RESOURCE SPECIALIST Gender Identity Male 11/11/2018 10:31 AM CDT Sexual Orientation Straight 06/09/2019 5: 34 PM WATER RESOURCE SPECIALIST documented as of this encounter Plan [...] COVID: Suspected 06/07/2023 06/07/2023 06/07/2023 12:46 PM WATER RESOURCE SPECIALIST COVID19 06/07/2023 06/07/2023 06/22/2023 3:06 AM WATER RESOURCE SPECIALIST COVID: Recovered Comment:Added based on recent COVID infection. 06/22/2023 06/22/2023 09/20/2023 3:05 AM C DT COVID: Suspected 07/24/2023 07/24/2023 07/24/2023 3:53 PM WATER RESOURCE SPECIALIST Diarrhea 07/30/2023 07/30/2023 08/13/2023 3:05 AM WATER RESOURCE SPECIALIST COVID: Suspected 08/30/2023 08/30/2023 08/30/2023 4:52 PM WATER RESOURCE SPECIALIST COVID: Suspected 10/12/2023 10/12/2023 10/12/2023 7:57 PM CDT Rhino/Enterovirus 10/12/2023 10/12/2023 10/26/2023 3:05 AM CDT COVID: Suspected 07/10/2024 07/10/2024 07/10/2024 4:53 PM WATER RESOURCE SPECIALIST COVID: Suspected Comment:07/16/2024 IP Review: no outstanding test, last RPP negative. Mary Tiwari, CONY 07/16/2024 07/16/2024 10:51 AM WATER RESOURCE SPECIALIST COVID19 Comment:07/16/2024 IP Review: added by CLAUDIO DONNELLY negative. Mary Tiwari RN 07/16/2024 07/16/2024 07/16/2024 10:51 AM WATER RESOURCE SPECIALIST MRSA Comment:nasalMRSA Isolation [facility] 09/03/24 07/16/2024 08/15/2024 09/03/2024 6:[address] C. difficile suspected 07/19/2024 07/19/202407/19 2:34 PM WATER RESOURCE SPECIALIST COVID: Suspected 07/23/2024 07/23/2024 07/23/2024 11:28 PM WATER RESOURCE SPECIALIST C. difficile suspected 07/23/2024 07/24/202407/24 10:31 AM WATER RESOURCE SPECIALIST Norovirus suspected 07/23/2024 07/24/2024 07/24/19 9:37 AM WATER RESOURCE SPECIALIST VRE Comment:Contact Precautions (gown and gloves) - not eligible for IP review until 6 months after positive culture - Jerod QURESHI, CONY 10/01/24 07/24/2024 09/20/2024 03/19/2025 7:26 PM C DT COVID: Suspected 08/09/2024 08/09/2024 08/09/2024 9:40 AM WATER RESOURCE SPECIALIST Influenza, adult Comment:08/26/2024 IP Review: pt afebrile but on antipyretics. Needs 24 hours off antipyretics and symptoms significantly improved/resolved in order for isolation to be discontinued. Mary Tiwari RN 08/15/2024 08/15/2024 08/29/2024 3:06 AM WATER RESOURCE SPECIALIST Coronavirus, droplet 08/15/2024 08/15/2024 025 3:06 AM WATER RESOURCE SPECIALIST C. difficile suspected 09/19/2024 09/19/202409/20 3:05 [...] documented as of this encounter Care Teams Court Commissioner Relationship Specialty Start Date End Date Kenton Ricks MD PCP - General 08/14/16 Pebbles Nelson MD Referring Physician Cardiology 02/07/19 Aylin Russ MD [address] [facility] [address] [place] [address] Referring Physician Pulmonary Disease 02/07/19 Maricruz Ramirez, JEWISH THOUGHT PROFESSOR [address] [place] [address] Nurse Practitioner Cardiovascular Disease 09/25/21 Joanne Lopez, RN Registered Nurse Pulmonary Disease 08/24/22 Leatha Cristina RMA Surgical Prehabilitation and Readiness (SPAR) Coordinator 09/01/22 01/02/23 Ben Chahal MD PhD 10 [facility] [address] 2 [place] [address] Medical Oncologist/Aviation Technician Medical Oncology 10/05/22 Chace Oliva MD [address] [place] [address] Consulting Physician Infectious Diseases 12/22/2204/01 Giovanna Alexis MD [address] [place] [address] Radiation Oncologist Radiation Oncology 03/09/23 Taisha Suarez, rate clerk passenger Prehabilitation and Readiness (SPAR) Coordinator General Surgery 03/20/23 04/10/23 Sandra Ma MD [address] DIV IM MEDICAL ONCOLOGY, [address] 7A, 7B, 7C [place] [address] Consulting Physician Medical Oncology 04/25/23 05/09/23 Abby Higgins MD PhD [address] DIV IM MEDICAL ONCOLOGY, [address] 7A, 7B, [address]C [place] [address] Medical Oncologist/Aviation Technician Medical Oncology 05/10/23 Adrian Martinez MD [address] DIV SURG TRANSPLANT, [address] [place] [address] Surgical Oncologist Surgical Oncology 05/28/23 Vera Pérez PA [address] [place] [phone] [place] [address] Physician Lung Splitter Colon and Rectal Surgery 09/13/23 Jim Frausto MD [address] [facility] [phone] [place] [address] Surgeon Colon and Rectal Surgery 11/21/23 Анна Robert, RN [address] [facility] [address] [place] [address] SHOP Outpatient Nick Setter 09/29/24 10/01/24 documented as of this encounter
--- OUTSIDE RECORDS SUMMARY | 2025-04-07 19:40 | XMS_ITS | Encounter Summary ---
Author Organization [facility] Address [address] [place] [address] Phone Care Team Providers Care Trench Shovel Operator Name Role Phone Kenton Ricks MD Primary Care Provider + [phone] Kenton Ricks MD Primary Care Provider + [phone] Pebbles Nelson MD Unavailable [phone] Aylin Russ MD Unavailable [phone] Maricruz Ramirez NP Unavailable [phone] Joanne Lopez RN Unavailable Padmini Leatha Carter Unavailable Unavailable Ben Chahal MD PhD Unavailable [phone] Chace Oliva MD Unavailable [phone] Giovanna Alexis MD Unavailable Taisha Suarez RN Unavailable Unavaila Sandra Aguirre MD Unavailable [phone] Abby Higgins MD PhD Unavailable + Adrian Martinez MD Unavailable Vera Pérez Unavailable Jim Frausto MD Unavailable нАна Robert RN Unavailable Encounter Details Date Type Department Care Team (Late st Contact Info) Description 05/08/2014 Orders Only [facility] IM CAR CLINCONV Provider, MD Max [address] [place] [address] Social History Tobacco Use Types Packs/Day Years Used Date Smoking Tobacco: Never Assessed Sex and Gender Information Value Date Recorded Sex Assigned at Not on file Legal Sex Male 12:58 AM DIESEL INSTRUCTOR Gender Identity Male 11/11/2018 10:31 AM CDT Sexual Orientation Straight 06/09/2019 5: 34 PM DIESEL INSTRUCTOR documented as of this encounter Plan [...] COVID: Suspected 06/07/2023 06/07/2023 06/07/2023 12:46 PM DIESEL INSTRUCTOR COVID19 06/07/2023 06/07/2023 06/22/2023 3:06 AM DIESEL INSTRUCTOR COVID: Recovered Comment:Added based on recent COVID infection. 06/22/2023 06/22/2023 09/20/2023 3:05 AM C DT COVID: Suspected 07/24/2023 07/24/2023 07/24/2023 3:53 PM DIESEL INSTRUCTOR Diarrhea 07/30/2023 07/30/2023 08/13/2023 3:05 AM DIESEL INSTRUCTOR COVID: Suspected 08/30/2023 08/30/2023 08/30/2023 4:52 PM DIESEL INSTRUCTOR COVID: Suspected 10/12/2023 10/12/2023 10/12/2023 7:57 PM CDT Rhino/Enterovirus 10/12/2023 10/12/2023 10/26/2023 3:05 AM CDT COVID: Suspected 07/10/2024 07/10/2024 07/10/2024 4:53 PM DIESEL INSTRUCTOR COVID: Suspected Comment:07/16/2024 IP Review: no outstanding test, last RPP negative. Mary Tiwari RN 07/16/2024 07/16/2024 10:51 AM DIESEL INSTRUCTOR COVID19 Comment:07/16/2024 IP Review: added by RN, RPP negative. Mary Tiwari RN 07/16/2024 07/16/2024 07/16/2024 10:51 AM DIESEL INSTRUCTOR MRSA Comment:nasalMRSA Isolation Nursing Home 09/03/24 07/16/2024 08/15/2024 09/03/2024 6:[address] C. difficile suspected 07/19/2024 07/19/202407/19 2:34 PM DIESEL INSTRUCTOR COVID: Suspected 07/23/2024 07/23/2024 07/23/2024 11:28 PM DIESEL INSTRUCTOR C. difficile suspected 07/23/2024 07/24/202407/24 10:31 AM DIESEL INSTRUCTOR Norovirus suspected 07/23/2024 07/24/2024 07/24/19 9:37 AM DIESEL INSTRUCTOR VRE Comment:Contact Precautions (gown and gloves) - not eligible for IP review until 6 months after positive culture - Jerod QURESHI, CONY 10/01/24 07/24/2024 09/20/2024 03/19/2025 7:26 PM C DT COVID: Suspected 08/09/2024 08/09/2024 08/09/2024 9:40 AM DIESEL INSTRUCTOR Influenza, adult Comment:08/26/2024 IP Review: pt afebrile but on antipyretics. Needs 24 hours off antipyretics and symptoms significantly improved/resolved in order for isolation to be discontinued. Mary Tiwari RN 08/15/2024 08/15/2024 08/29/2024 3:06 AM DIESEL INSTRUCTOR Coronavirus, droplet 08/15/2024 08/15/202408/29/ 025 3:06 AM DIESEL INSTRUCTOR C. difficile suspected 09/19/2024 09/19/202409/20 3:05 [...] documented as of this encounter Care Teams Trench Shovel Operator Relationship Specialty Start Date End Date Kenton Ricks MD PCP - General 08/14/16 Kenton Ricks MD PCP - General 09/17/08 08/13/16 Pebbles Nelson MD Referring Physician Cardiology 02/07/19 Aylin Russ MD [address] [facility] [address] [place] [address] Referring Physician Pulmonary Disease 02/07/19 Maricruz Ramirez NP [address] [facility] [address] [place] [address] Nurse Practitioner Cardiovascular Disease 09/25/21 Joanne Lopez, CONY Registered Nurse Pulmonary Disease 08/24/22 Leatha Cristina RMA Surgical Prehabilitation and Readiness (SPAR) Coordinator 09/01/22 01/02/23 Ben Chahal MD PhD [address] [facility] # 2 [place] [address] Medical Oncologist/Reporting Lead Medical Oncology 10/05/22 Chace Oliva MD [address] [facility] [address] [place] [address] Consulting Physician Infectious Diseases 12/22/2204/01 Giovanna Alexis MD [address] LL [address] [place] [address] Radiation Oncologist Radiation Oncology 03/09/23 Taisha Suarez, capability lead Prehabilitation and Readiness (SPAR) Coordinator General Surgery 03/20/23 04/10/23 Sandra Ma MD [address] DIV IM MEDICAL ONCOLOGY, [address] 7A, 7B, 7C [place] [address] Consulting Physician Medical Oncology 04/25/23 05/09/23 Abby Higgins MD PhD [address] DIV IM MEDICAL ONCOLOGY, [address] 7A, 7B, [address]C [place] [address] Medical Oncologist/Reporting Lead Medical Oncology 05/10/23 Adrian Martinez MD [address] DIV SURG TRANSPLANT, [facility] [address] [place] [address] Surgical Oncologist Surgical Oncology 05/28/23 Vera Pérez PA [address] [place] [phone] [place] [address] Physician Electric Welder Helper Colon and Rectal Surgery 09/13/23 Jim Frausto MD [address] [facility] [phone] [place] [address] Surgeon Colon and Rectal Surgery 11/21/23 Анна Robert, RN [address] [facility] [address] [place] [address] SHOP Outpatient Vanstone Machine Operator 09/29/24 10/01/24 documented as of this encounter
--- OUTSIDE RECORDS SUMMARY | 2025-04-07 19:40 | XMS_ITS | Encounter Summary ---
Author Organization [facility] Address [address] [place] [address] Phone Care Team Providers Care Outdoor Pursuits Instructor Name Role Phone Kenton Ricks MD Primary Care Provider + [phone] Kenton Ricks MD Primary Care Provider + [phone] Pebbles Nelson MD Unavailable [phone] Aylin Russ MD Unavailable [phone] Maricruz Ramirez NP Unavailable [phone] Joanne Lopez RN Unavailable Padmini Leatha Carter Unavailable Unavailable Ben Chahal MD PhD Unavailable [phone] Chace Oliva MD Unavailable [phone] Giovanna Alexis MD Unavailable Taisha Suarez RN Unavailable Unavaila Sandra Aguirre MD Unavailable [phone] Abby Higgins MD PhD Unavailable + Adrian Martinez MD Unavailable Vera Pérez Unavailable [phone] Jim Frausto MD Unavailable Анна Robert RN Unavailable [phone] Encounter Details Date Type Department Care Team (Late st Contact Info) Description 08/18/2014 Orders Only [facility] IM CAR CLINCONV Provider, MD Max [address] [place] [address] Social History Tobacco Use Types Packs/Day Years Used Date Smoking Tobacco: Never Assessed Sex and Gender Information Value Date Recorded Sex Assigned at Not on file Legal Sex Male 12:58 AM ROCK LATHER Gender Identity Male 11/11/2018 10:31 AM CDT Sexual Orientation Straight 06/09/2019 5: 34 PM ROCK LATHER documented as of this encounter Plan of [...] COVID: Suspected 06/07/2023 06/07/2023 06/07/2023 12:46 PM ROCK LATHER COVID19 06/07/2023 06/07/2023 06/22/2023 3:06 AM ROCK LATHER COVID: Recovered Comment:Added based on recent COVID infection. 06/22/2023 06/22/2023 09/20/2023 3:05 AM C DT COVID: Suspected 07/24/2023 07/24/2023 07/24/2023 3:53 PM ROCK LATHER Diarrhea 07/30/2023 07/30/2023 08/13/2023 3:05 AM ROCK LATHER COVID: Suspected 08/30/2023 08/30/2023 08/30/2023 4:52 PM ROCK LATHER COVID: Suspected 10/12/2023 10/12/2023 10/12/2023 7:57 PM CDT Rhino/Enterovirus 10/12/2023 10/12/2023 10/26/2023 3:05 AM CDT COVID: Suspected 07/10/2024 07/10/2024 07/10/2024 4:53 PM ROCK LATHER COVID: Suspected Comment:07/16/2024 IP Review: no outstanding test, last RPP negative. Mary Tiwari RN 07/16/2024 07/16/2024 10:51 AM ROCK LATHER COVID19 Comment:07/16/2024 IP Review: added by RN, RPP negative. Mary Tiwari RN 07/16/2024 07/16/2024 07/16/2024 10:51 AM ROCK LATHER MRSA Comment:nasalMRSA Isolation [facility] 09/03/24 07/16/2024 08/15/2024 09/03/2024 6:[address] C. difficile suspected 07/19/2024 07/19/202407/19 2:34 PM ROCK LATHER COVID: Suspected 07/23/2024 07/23/2024 07/23/2024 11:28 PM ROCK LATHER C. difficile suspected 07/23/2024 07/24/202407/24 10:31 AM ROCK LATHER Norovirus suspected 07/23/2024 07/24/2024 07/24/19 9:37 AM ROCK LATHER VRE Comment:Contact Precautions (gown and gloves) - not eligible for IP review until 6 months after positive culture - Jerod QURESHI, CONY 10/01/24 07/24/2024 09/20/2024 03/19/2025 7:26 PM C DT COVID: Suspected 08/09/2024 08/09/2024 08/09/2024 9:40 AM ROCK LATHER Influenza, adult Comment:08/26/2024 IP Review: pt afebrile but on antipyretics. Needs 24 hours off antipyretics and symptoms significantly improved/resolved in order for isolation to be discontinued. Mary Tiwari RN 08/15/2024 08/15/2024 08/29/2024 3:06 AM ROCK LATHER Coronavirus, droplet 08/15/2024 08/15/202408/29/ 025 3:06 AM ROCK LATHER C. difficile suspected 09/19/2024 09/19/202409/20 3:05 AM [...] documented as of this encounter Care Teams Outdoor Pursuits Instructor Relationship Specialty Start Date End Date Kenton Ricks MD PCP - General 08/14/16 Kenton Ricks MD PCP - General 09/17/08 08/13/16 Pebbles Nelson MD Referring Physician Cardiology 02/07/19 Aylin Russ MD [address] [facility] [address]052 [place] [address] Referring Physician Pulmonary Disease 02/07/19 Maricruz Ramirez NP [address] [facility] [address] [place] [address] Nurse Practitioner Cardiovascular Disease 09/25/21 Joanne Lopez, CONY Registered Nurse Pulmonary Disease 08/24/22 Leatha Cristina RMA Surgical Prehabilitation and Readiness (SPAR) Coordinator 09/01/22 01/02/23 Ben Chahal MD PhD 10 [facility] # 2 [place] [address] Medical Oncologist/Eap Counselor Medical Oncology 10/05/22 Chace Oliva MD [address] [facility] [address] [place] [address] Consulting Physician Infectious Diseases 12/22/2204/01 Giovanna Alexis MD [address] [place] [address] Radiation Oncologist Radiation Oncology 03/09/23 Taisha Suarez, monorail helper Prehabilitation and Readiness (SPAR) Coordinator General Surgery 03/20/23 04/10/23 Sandra Ma MD [address] MEDICAL ONCOLOGY, [address]A, 7B, 7C [place] [address] Consulting Physician Medical Oncology 04/25/23 05/09/23 Abby Higgins MD PhD [address] DIV IM MEDICAL ONCOLOGY, [address] 7A, 7B, 7C [place] [address] Medical Oncologist/Eap Counselor Medical Oncology 05/10/23 Adrian Martinez MD [address] DIV SURG TRANSPLANT, [facility] [address] [place] [address] Surgical Oncologist Surgical Oncology 05/28/23 Vera Pérez PA [address] [place] [phone] [place] [address] Physician Assistant Warehouse Manager Colon and Rectal Surgery 09/13/23 Jim Frausto MD [address] [facility] [phone] [place] [address] Surgeon Colon and Rectal Surgery 11/21/23 Анна Robert, RN [address] [facility] [address]300 [place] [address] SHOP Outpatient Insolvency Consultant 09/29/24 10/01/24 documented as of this encounter
--- OUTSIDE RECORDS SUMMARY | 2025-04-07 19:40 | XMS_ITS | Encounter Summary ---
Author Organization [employer] [facility] Address [address] [place] [address] Care Team Providers Care Supervisor Title Name Role Phone Kenton Ricks MD Primary Care Provider [phone] Encounter Details Date Type Department Care Team (Latest Contact Info) Description 05/17/2001 Outpatient [facility] [address] [place] [facility] [place] [phone] Kenyon Montenegro MD [address] [address] HEADACHE (Primary Dx) Social History Tobacco Use Types Packs/Day Years Used Date Smoking Tobacco: Never Assessed Sex and Gender Information Value Date Recorded Sex Assigned at Not on file Legal Sex Male 4:35 AM DRAFTING ENGINEER Gender Identity Not on file Sexual Orientation Not on file documented as of this encounter Plan of Treatment Not on file documented as of this encounter Visit Diagnoses Diagnosis Headache(784.0)- Primary Headache documented in this encounter Care Teams Supervisor Title Relationship Specialty Start Date End Date Kenton Ricks MD [address] [place] [id number] PCP - General Family Practice 11/15/18 documented as of this encounter
--- OUTSIDE RECORDS SUMMARY | 2025-04-07 19:40 | XMS_ITS | Encounter Summary ---
Author Organization [facility] Address [address] [place] [address] Phone Care Team Providers Care Folder Hand Name Role Phone Kenton Ricks MD Primary Care Provider + [phone] Pebbles Nelson MD Unavailable [phone] Aylin Russ MD Unavailable [phone] Maricruz Ramirez NP Unavailable [phone] Joanne Lopez RN Unavailable Padmini Ben Walker MD PhD Unavailable [phone] Giovanna Alexis MD Unavailable Abby Higgins MD PhD Unavailable + Adrian Martinez MD Unavailable [phone] Vera Pérez Unavailable [phone] Jim Frausto MD Unavailable [phone] Encounter Details Date Type Department Care Team (Late st Contact Info) Description 03/26/2025 Telephone [facility] Medicine Cardiology [address] [facility] 8th [place] [address] [place] [id number] Nicki Conroy Social History Tobacco Use Types Packs/Day Years [...] 01/13/2025 How often do you attend chur or hinduism services? More than 4 times per year 01/13/2025 Do you belong to any clubs o r organizations such as shinto groups, unions, fraternal or athletic groups, or [...] Date Recorded PHQ-2 Total Score 1 09/21/2024 [facility] - Occupational Stress Questionnaire Answer Date Recorded [...] neighbors? More than three times a week 03/03/2025 How often do you get togethe r with friends or relatives? Twice a week 03/03/2025 How often do you attend chur ch or hinduism services? More than 4 times per year 03/03/2025 Do you belong to any clubs o r organizations such as shinto groups, unions, fraternal or athletic groups, or school groups? No 03/03/2025 How often do you attend meet ings of the clubs or organizations you belong to? Never 03/03/2025 Are you , , di vorced, , never , or living with a partner? 03/03/2025 Overall Financial Resource Strain (CARDIA) Answe r Date Recorded How hard is it for you to pa y for the very basics like food, housing, medical care, and heating? Not hard at all 03/03/2025 Hunger Vital Sign Answer Date Recorded Within the past 12 months, y ou worried that your food would run out before you got the money to buy more. Sometimes true Within the past 12 months, t he food you bought just didn't last and you didn't have money to get more. Sometimes true 08/2024 PRAPARE - Transportation Answer Date Re corded In the past 12 months, has l ack of transportation kept you from medical appointments or from getting medications? No 08/2024 In the past 12 months, has l ack of transportation kept you from meetings, work, or from getting things needed for daily living? No 03/03/2025 Housing Stability Vital Sign Answer Iván e Recorded In the last 12 months, was t here a time when you were not able to pay the mortgage or rent on time? No 03/03/2025 In the past 12 months, how m any times have you moved where you were living? 1 03/03/2025 At any time in the past 12 m [facility], were you homeless or living in a correction (including now)? No 03/03/2025 [facility] Utilities Answer Date Recorded In the past 12 months has e [employer], gas, oil, or water [employer] threatened to shut off services in your home? No 03/03/2025 Personal Safety Answer Date Recorded Have you ever been in or are you currently in a harmful physical or emotional relationship or is someone making you feel afraid or unsafe? 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 Pt says his blood sugar and temp are a little higher than normal but not bad. Pt is happy things look better today and agrees with plan to call us back later if he is having heart rate concerns at a later time. * Telephone Encounter - Daniel Menendez - 03/27/2025 7:50 AM CDT Pt is made aware his home monitor did not turkey picker any arrhythmia detections. Pt states last eveninghis heart rate went down to 95 bpm which he says is still higher than it normally is. Pt also comments that he has a bad headache again this morning. Will try to call pt back around 8:30 AM after he checks his vital signs to see how those are this morning. * Telephone Encounter - Daniel Menendez - 03/26/2025 2:01 PM CDT Pt went to his PCP for bad headaches yesterday and got a new med Ubrelvy. He notes that for the last few hours his heart rate is up to 120 and he says his headache is really bad. Pt states he also was doing some work around the house today. Pt is made aware that is not too high of a heart rate especially given his headache pain and working around the house could contribute. Pt is made aware the severe headache is not likely caused by such a mild increase in heart rate that he has but possibly the opposite. Pt agrees with plan for this nurse to call him back tomorrow before 8AM with tomorrow'sdevice reading that comes over nightly and pt is aware to call back if things worsen. * Telephone Encounter - Nicki Conroy - 03/26/2025 1:41 PM CDT AZRA PT STATES HR HAS BEEN HIGH. STATES MOST RECENT WAS 120 JUST TAKEN. STATES HAS AN INTENSE HEADACHE documented in this encounter Plan of Treatment Not on file documented as of this encounter Visit Diagnoses Not on filedocumented in this encounter Additional Health Concerns Infection Onset Date Last Indicated Resolved Time COVID: Suspected 03/31/2025 03/31/2025 03/31/2025 3:56 PM CDT documented as of this encounter Care Teams Folder Hand Relationship Specialty Start Date End Date Kenton Ricks MD PCP - General 08/14/16 Pebbles Nelson MD Referring Physician Cardiology 02/07/19 Aylin Russ MD [address] [facility] [address] [place] [address] Referring Physician Pulmonary Disease 02/07/19 Maricruz Ramirez, DEVELOPMENT ARCHITECT [address] [place] [address] Nurse Practitioner Cardiovascular Disease 09/25/21 Joanne Lopez, RN Registered Nurse Pulmonary Disease 08/24/22 Ben Chahal MD PhD [address] [facility] [address] 2 [place] [address] Medical Oncologist/Hematologis t Medical Oncology 10/05/22 Giovanna Alexis MD [address] [place] [address] Radiation Oncologist Radiation Oncology 03/09/23 Abby Higgins MD PhD [address] DIV IM MEDICAL ONCOLOGY, [facility] 7A, 7B, 7C [place] [address] Medical Oncologist/Hematologis t Medical Oncology 05/10/23 Adrian Martinez MD [address] DIV SURG TRANSPLANT, [address] [place] [address] Surgical Oncologist Surgical Oncology 05/28/23 Vera Pérez PA [address] [place] [id number] [place] [address] Physician Reactor Fueling Supervisor Colon and Rectal Surgery 09/13/23 Jim Frausto MD [address] [facility] [phone] [place] [address] Surgeon Colon and Rectal Surgery 11/21/23 documented as of this encounter
--- OUTSIDE RECORDS SUMMARY | 2025-04-07 19:40 | XMS_ITS | Encounter Summary ---
Author Organization [facility] Address [address] [place] [address] Care Team Providers Care Director Of Restaurant Operations Name Role Phone Kenton Ricks MD Primary Care Provider [phone] Encounter Details Date Type Department Care Team (Late st Contact Info) Description 07/23/2001 Outpatient Historical Division of Neurology [address] [address] Shabbir Villavicencio MD [address] [facility] [facility] [address] [place] [address] Social History Tobacco Use Types Packs/Day Years Used Date Smoking Tobacco: Never Assessed Sex and Gender Information Value Date Recorded Sex Assigned at Not on file Legal 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 [address] PCP - General Family Practice 11/15/18 documented as of this encounter
--- OUTSIDE RECORDS SUMMARY | 2025-04-07 19:40 | XMS_ITS | Encounter Summary ---
Author Organization [facility] Address [address] [place] [address] Care Team Providers Care Consultative Sales Associate Name Role Phone Kenton Ricks MD Primary Care Provider [phone] Encounter Details Date Type Department Care Team (Late st Contact Info) Description 10/06/2001 Outpatient [facility] [address] [place] [address]. 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 [id number] PCP - General Family Practice 11/15/18 documented as of this encounter
--- OUTSIDE RECORDS SUMMARY | 2025-04-07 19:40 | XMS_ITS | Encounter Summary ---
Author Organization [facility] Address 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 [address] PCP - General Family Practice 11/15/18 documented as of this encounter
--- OUTSIDE RECORDS SUMMARY | 2025-04-07 19:40 | XMS_ITS | Encounter Summary ---
Author Organization [facility] Address [address] [place] [address] Phone Care Team Providers Care Plastic Tile Setter Name Role Phone Kenton Ricks MD Primary Care Provider + [phone] Kenton Ricks MD Primary Care Provider + [phone] Pebbles Nelson MD Unavailable [phone] Aylin Russ MD Unavailable [phone] Maricruz Ramirez NP Unavailable [phone] Joanne Lopez RN Unavailable Padmini Leatha Carter Unavailable Unavailable Ben Chahal MD PhD Unavailable [phone] Chace Oliva MD Unavailable [phone] Giovanna Alexis MD Unavailable Taisha Suarez RN Unavailable Unavaila Sandra Aguirre MD Unavailable [phone] Abby Higgins MD PhD Unavailable + Adrian Martinez MD Unavailable [phone] Vera Pérez Unavailable Jim Frausto MD Unavailable Анна Robert RN Unavailable [phone] Encounter Details Date Type Department Care Team (Late st Contact Info) Description 03/14/2016 Orders Only [facility] CLINCONV Provider, MD Max [address] [place] [address] Social History Tobacco Use Types Packs/Day Years Used Date Smoking Tobacco: Never Assessed Sex and Gender Information Value Date Recorded Sex Assigned at Not on file Legal Sex Male 12:58 AM QUALITY CONTROL DIRECTOR Gender Identity Male 11/11/2018 10:31 AM CDT Sexual Orientation Straight 06/09/2019 5: 34 PM QUALITY CONTROL DIRECTOR documented as of this encounter Plan [...] COVID: Suspected 06/07/2023 06/07/2023 06/07/2023 12:46 PM QUALITY CONTROL DIRECTOR COVID19 06/07/2023 06/07/2023 06/22/2023 3:06 AM QUALITY CONTROL DIRECTOR COVID: Recovered Comment:Added based on recent COVID infection. 06/22/2023 06/22/2023 09/20/2023 3:05 AM C DT COVID: Suspected 07/24/2023 07/24/2023 07/24/2023 3:53 PM QUALITY CONTROL DIRECTOR Diarrhea 07/30/2023 07/30/2023 08/13/2023 3:05 AM QUALITY CONTROL DIRECTOR COVID: Suspected 08/30/2023 08/30/2023 08/30/2023 4:52 PM QUALITY CONTROL DIRECTOR COVID: Suspected 10/12/2023 10/12/2023 10/12/2023 7:57 PM CDT Rhino/Enterovirus 10/12/2023 10/12/2023 10/26/2023 3:05 AM CDT COVID: Suspected 07/10/2024 07/10/2024 07/10/2024 4:53 PM QUALITY CONTROL DIRECTOR COVID: Suspected Comment:07/16/2024 IP Review: no outstanding test, last RPP negative. Mary Tiwari RN 07/16/2024 07/16/2024 10:51 AM QUALITY CONTROL DIRECTOR COVID19 Comment:07/16/2024 IP Review: added by RN, RPP negative. Mary Tiwari RN 07/16/2024 07/16/2024 07/16/2024 10:51 AM QUALITY CONTROL DIRECTOR MRSA Comment:nasalMRSA Isolation Halfway 09/03/24 07/16/2024 08/15/2024 09/03/2024 6:[address] C. difficile suspected 07/19/2024 07/19/202407/19 2:34 PM QUALITY CONTROL DIRECTOR COVID: Suspected 07/23/2024 07/23/2024 07/23/2024 11:28 PM QUALITY CONTROL DIRECTOR C. difficile suspected 07/23/2024 07/24/202407/24 10:31 AM QUALITY CONTROL DIRECTOR Norovirus suspected 07/23/2024 07/24/2024 07/24/19 9:37 AM QUALITY CONTROL DIRECTOR VRE Comment:Contact Precautions (gown and gloves) - not eligible for IP review until 6 months after positive culture - Jerod QURESHI, CONY 10/01/24 07/24/2024 09/20/2024 03/19/2025 7:26 PM C DT COVID: Suspected 08/09/2024 08/09/2024 08/09/2024 9:40 AM QUALITY CONTROL DIRECTOR Influenza, adult Comment:08/26/2024 IP Review: pt afebrile but on antipyretics. Needs 24 hours off antipyretics and symptoms significantly improved/resolved in order for isolation to be discontinued. Mary Tiwari RN 08/15/2024 08/15/2024 08/29/2024 3:06 AM QUALITY CONTROL DIRECTOR Coronavirus, droplet 08/15/2024 08/15/202408/29/ 025 3:06 AM QUALITY CONTROL DIRECTOR C. difficile suspected 09/19/2024 09/19/202409/20 3:05 [...] documented as of this encounter Care Teams Plastic Tile Setter Relationship Specialty Start Date End Date Kenton Ricks MD PCP - General 08/14/16 Kenton Ricks MD PCP - General 09/17/08 08/13/16 Pebbles Nelson MD Referring Physician Cardiology 02/07/19 Aylin Russ MD [address] [facility] [address] [place] [address] Referring Physician Pulmonary Disease 02/07/19 Maricruz Ramirez NP [address] [facility] [address] [place] [address] Nurse Practitioner Cardiovascular Disease 09/25/21 Joanne Lopez, CONY Registered Nurse Pulmonary Disease 08/24/22 Leatha Cristina RMA Surgical Prehabilitation and Readiness (SPAR) Coordinator 09/01/22 01/02/23 Ben Chahal MD PhD [address] [facility] # 2 [place] [address] Medical Oncologist/Needle Bar Molder Medical Oncology 10/05/22 Chace Oliva MD [address] [facility] [address] [place] [address] Consulting Physician Infectious Diseases 12/22/2204/01 Giovanna Alxeis MD [address] [place] [address] Radiation Oncologist Radiation Oncology 03/09/23 Taisha Suarez, piano regulator Prehabilitation and Readiness (SPAR) Coordinator General Surgery 03/20/23 04/10/23 Sandra Ma MD [address] [facility] [address] DIV IM MEDICAL ONCOLOGY, [facility] [address]A, 7B, [address] [place] [address] Consulting Physician Medical Oncology 04/25/23 05/09/23 Abby Higgins MD PhD [address] DIV IM MEDICAL ONCOLOGY, [facility] [address]A, [address]B, [address] [place] [address] Medical Oncologist/Needle Bar Molder Medical Oncology 05/10/23 Adrian Martinez MD [address] DIV SURG TRANSPLANT, [facility] [address] [place] [address] Surgical Oncologist Surgical Oncology 05/28/23 Vera Pérez PA [address] [place] [id number] [place] [address] Physician Assistant Professor Of Geography Colon and Rectal Surgery 09/13/23 Jim Frausto MD [address] [facility] [id number] [place] [address] Surgeon Colon and Rectal Surgery 11/21/23 Анна Robert, RN [address] [facility] [address] [place] [address] SHOP Outpatient Bee Raiser 09/29/24 10/01/24 documented as of this encounter
--- OUTSIDE RECORDS SUMMARY | 2025-04-07 19:40 | XMS_ITS | Encounter Summary ---
Author Organization [facility] Address [address] [place] [address] Phone Care Team Providers Care Cnc Applications Engineer Name Role Phone Kenton Ricks MD Primary Care Provider + [phone] Kenton Ricks MD Primary Care Provider + [phone] Pebbles Nelson MD Unavailable [phone] Aylin Russ MD Unavailable [phone] Maricruz Ramirez NP Unavailable [phone] Joanne Lopez RN Unavailable Padmini Leatha Carter Unavailable Unavailable Ben Chahal MD PhD Unavailable [phone] Chace Oliva MD Unavailable [phone] Giovanna Alexis MD Unavailable Taisha Suarez RN Unavailable Unavaila Sandra Aguirre MD Unavailable [phone] Abby Higgins MD PhD Unavailable + Adrian Martinez MD Unavailable Vera Pérez Unavailable Jim Frausto MD Unavailable Анна Robert RN Unavailable [phone] Encounter Details Date Type Department Care Team (Late st Contact Info) Description 05/14/2015 Orders Only [facility]INCON[facility] Provider, MD Max [address] [place] [address] Social History Tobacco Use Types Packs/Day Years Used Date Smoking Tobacco: Never Assessed Sex and Gender Information Value Date Recorded Sex Assigned at Not on file Legal Sex Male 12:58 AM MANAGER DOCUMENTATION Gender Identity Male 11/11/2018 10:31 AM CDT Sexual Orientation Straight 06/09/2019 5: 34 PM MANAGER DOCUMENTATION documented as of this encounter Plan of [...] Suspected 06/07/2023 06/07/2023 06/07/2023 12:46 PM MANAGER DOCUMENTATION COVID19 06/07/2023 06/07/2023 06/22/2023 3:06 AM MANAGER DOCUMENTATION COVID: Recovered Comment:Added based on recent COVID infection. 06/22/2023 06/22/2023 09/20/2023 3:05 AM C DT COVID: Suspected 07/24/2023 07/24/2023 07/24/2023 3:53 PM MANAGER DOCUMENTATION Diarrhea 07/30/2023 07/30/2023 08/13/2023 3:05 AM MANAGER DOCUMENTATION COVID: Suspected 08/30/2023 08/30/2023 08/30/2023 4:52 PM MANAGER DOCUMENTATION COVID: Suspected 10/12/2023 10/12/2023 10/12/2023 7:57 PM CDT Rhino/Enterovirus 10/12/2023 10/12/2023 10/26/2023 3:05 AM CDT COVID: Suspected 07/10/2024 07/10/2024 07/10/2024 4:53 PM MANAGER DOCUMENTATION COVID: Suspected Comment:07/16/2024 IP Review: no outstanding test, last RPP negative. Mary Tiwari RN 07/16/2024 07/16/2024 10:51 AM MANAGER DOCUMENTATION COVID19 Comment:07/16/2024 IP Review: added by RN, RPP negative. Mary Tiwari RN 07/16/2024 07/16/2024 07/16/2024 10:51 AM MANAGER DOCUMENTATION MRSA Comment:nasalMRSA Isolation Shelter 09/03/24 07/16/2024 08/15/2024 09/03/2024 6:[address] C. difficile suspected 07/19/2024 07/19/202407/19 2:34 PM MANAGER DOCUMENTATION COVID: Suspected 07/23/2024 07/23/2024 07/23/2024 11:28 PM MANAGER DOCUMENTATION C. difficile suspected 07/23/2024 07/24/202407/24 10:31 AM MANAGER DOCUMENTATION Norovirus suspected 07/23/2024 07/24/2024 07/24/19 9:37 AM MANAGER DOCUMENTATION VRE Comment:Contact Precautions (gown and gloves) - not eligible for IP review until 6 months after positive culture - Jerod QURESHI, CONY 10/01/24 07/24/2024 09/20/2024 03/19/2025 7:26 PM C DT COVID: Suspected 08/09/2024 08/09/2024 08/09/2024 9:40 AM MANAGER DOCUMENTATION Influenza, adult Comment:08/26/2024 IP Review: pt afebrile but on antipyretics. Needs 24 hours off antipyretics and symptoms significantly improved/resolved in order for isolation to be discontinued. Mary Tiwari RN 08/15/2024 08/15/2024 08/29/2024 3:06 AM MANAGER DOCUMENTATION Coronavirus, droplet 08/15/2024 08/15/202408/29/ 025 3:06 AM MANAGER DOCUMENTATION C. difficile suspected 09/19/2024 09/19/202409/20 3:05 AM [...] documented as of this encounter Care Teams Cnc Applications Engineer Relationship Specialty Start Date End Date Kenton Ricks MD PCP - General 08/14/16 Kenton Ricks MD PCP - General 09/17/08 08/13/16 Pebbles Nelson MD Referring Physician Cardiology 02/07/19 Aylni Russ MD [address] [facility] [address] [place] [address] Referring Physician Pulmonary Disease 02/07/19 Maricruz Ramirez NP [address] [facility] [address] [place] [address] Nurse Practitioner Cardiovascular Disease 09/25/21 Joanne Lopez, CONY Registered Nurse Pulmonary Disease 08/24/22 Leatha Cristina RMA Surgical Prehabilitation and Readiness (SPAR) Coordinator 09/01/22 01/02/23 Ben Chahal MD PhD [address] [facility] [address] 2 [place] [address] Medical Oncologist/Manager Casino Medical Oncology 10/05/22 Chace Oliva MD [address] [facility] [address] [place] [address] Consulting Physician Infectious Diseases 12/22/2204/01 Giovanna Alexis MD [address] [place] [address] Radiation Oncologist Radiation Oncology 03/09/23 Taisha Suarez, epidemiology internship Prehabilitation and Readiness (SPAR) Coordinator General Surgery 03/20/23 04/10/23 Sandra Ma MD [address] [facility] [address] DIV IM MEDICAL ONCOLOGY, [facility] [address]A, 7B, [address]C [place] [address] Consulting Physician Medical Oncology 04/25/23 05/09/23 Abby Higgins MD PhD [address] DIV IM MEDICAL ONCOLOGY, [facility] [address]A, 7B, [address] [place] [address] Medical Oncologist/Manager Casino Medical Oncology 05/10/23 Adrian Martinez MD [address] DIV SURG TRANSPLANT, [facility] [address] [place] [address] Surgical Oncologist Surgical Oncology 05/28/23 Vera Pérez PA [address] [place] [id number] [place] [address] Physician Administrative Office Assistant Colon and Rectal Surgery 09/13/23 Jim Frausto MD [address] [facility] [id number] [place] [address] Surgeon Colon and Rectal Surgery 11/21/23 Анна Robert, RN [address] [facility] [address] [place] [address] SHOP Outpatient Field Installation Technician 09/29/24 10/01/24 documented as of this encounter
--- OUTSIDE RECORDS SUMMARY | 2025-04-07 19:40 | XMS_ITS | Encounter Summary ---
Author Organization [facility] Address [address] [place] [address] Phone Care Team Providers Care Urgent Care Physician Assistant Name Role Phone Kenton Ricks MD Primary Care Provider + [phone] Kenton Ricks MD Primary Care Provider + [phone] Pebbles Nelson MD Unavailable [phone] Aylin Russ MD Unavailable [phone] Maricruz Ramirez NP Unavailable [phone] Joanne Lopez RN Unavailable Padmini Leatha Carter Unavailable Unavailable Ben Chahal MD PhD Unavailable [phone] Chace Oliva MD Unavailable [phone] Giovanna Alexis MD Unavailable Taisha Suarez RN Unavailable Unavaila Sandra Aguirre MD Unavailable [phone] Abby Higgins MD PhD Unavailable + Adrian Martinez MD Unavailable [phone] Vera Pérez Unavailable Jim Frausto MD Unavailable Анна Robert RN Unavailable [phone] Encounter Details Date Type Department Care Team (Late st Contact Info) Description 06/02/2014 Orders Only [facility] Provider, MD Max [address] [place] [id number] Social History Tobacco Use Types Packs/Day Years Used Date Smoking Tobacco: Never Assessed Sex and Gender Information Value Date Recorded Sex Assigned at Not on file Legal Sex Male 12:58 AM ELECTRIC ORGAN ASSEMBLER AND CHECKER Gender Identity Male 11/11/2018 10:31 AM CDT Sexual Orientation Straight 06/09/2019 5: 34 PM ELECTRIC ORGAN ASSEMBLER AND CHECKER documented as of this encounter Plan of [...] COVID: Suspected 06/07/2023 06/07/2023 06/07/2023 12:46 PM ELECTRIC ORGAN ASSEMBLER AND CHECKER COVID19 06/07/2023 06/07/2023 06/22/2023 3:06 AM ELECTRIC ORGAN ASSEMBLER AND CHECKER COVID: Recovered Comment:Added based on recent COVID infection. 06/22/2023 06/22/2023 09/20/2023 3:05 AM C DT COVID: Suspected 07/24/2023 07/24/2023 07/24/2023 3:53 PM ELECTRIC ORGAN ASSEMBLER AND CHECKER Diarrhea 07/30/2023 07/30/2023 08/13/2023 3:05 AM ELECTRIC ORGAN ASSEMBLER AND CHECKER COVID: Suspected 08/30/2023 08/30/2023 08/30/2023 4:52 PM ELECTRIC ORGAN ASSEMBLER AND CHECKER COVID: Suspected 10/12/2023 10/12/2023 10/12/2023 7:57 PM CDT Rhino/Enterovirus 10/12/2023 10/12/2023 10/26/2023 3:05 AM CDT COVID: Suspected 07/10/2024 07/10/2024 07/10/2024 4:53 PM ELECTRIC ORGAN ASSEMBLER AND CHECKER COVID: Suspected Comment:07/16/2024 IP Review: no outstanding test, last RPP negative. Mary Tiwari RN 07/16/2024 07/16/2024 10:51 AM ELECTRIC ORGAN ASSEMBLER AND CHECKER COVID19 Comment:07/16/2024 IP Review: added by RN, RPP negative. Mary Tiwari RN 07/16/2024 07/16/2024 07/16/2024 10:51 AM ELECTRIC ORGAN ASSEMBLER AND CHECKER MRSA Comment:nasalMRSA Isolation Alf 09/03/24 07/16/2024 08/15/2024 09/03/2024 6:[address] C. difficile suspected 07/19/2024 07/19/202407/19 2:34 PM ELECTRIC ORGAN ASSEMBLER AND CHECKER COVID: Suspected 07/23/2024 07/23/2024 07/23/2024 11:28 PM ELECTRIC ORGAN ASSEMBLER AND CHECKER C. difficile suspected 07/23/2024 07/24/202407/24 10:31 AM ELECTRIC ORGAN ASSEMBLER AND CHECKER Norovirus suspected 07/23/2024 07/24/2024 07/24/19 9:37 AM ELECTRIC ORGAN ASSEMBLER AND CHECKER VRE Comment:Contact Precautions (gown and gloves) - not eligible for IP review until 6 months after positive culture - Jerod QURESHI, CONY 10/01/24 07/24/2024 09/20/2024 03/19/2025 7:26 PM C DT COVID: Suspected 08/09/2024 08/09/2024 08/09/2024 9:40 AM ELECTRIC ORGAN ASSEMBLER AND CHECKER Influenza, adult Comment:08/26/2024 IP Review: pt afebrile but on antipyretics. Needs 24 hours off antipyretics and symptoms significantly improved/resolved in order for isolation to be discontinued. Mary Tiwari RN 08/15/2024 08/15/2024 08/29/2024 3:06 AM ELECTRIC ORGAN ASSEMBLER AND CHECKER Coronavirus, droplet 08/15/2024 08/15/202408/29/ 025 3:06 AM ELECTRIC ORGAN ASSEMBLER AND CHECKER C. difficile suspected 09/19/2024 09/19/202409/20 3:05 AM [...] documented as of this encounter Care Teams Urgent Care Physician Assistant Relationship Specialty Start Date End Date Kenton Ricks MD PCP - General 08/14/16 Kenton Ricks MD PCP - General 09/17/08 08/13/16 Pebbles Nelson MD Referring Physician Cardiology 02/07/19 Aylin Russ MD [address] [facility] [address] [place] [address] Referring Physician Pulmonary Disease 02/07/19 Maricruz Ramirez NP [address] [facility] [address] [place] [address] Nurse Practitioner Cardiovascular Disease 09/25/21 Joanne Lopez, CONY Registered Nurse Pulmonary Disease 08/24/22 Leatha Cristina RMA Surgical Prehabilitation and Readiness (SPAR) Coordinator 09/01/22 01/02/23 Ben Chahal MD PhD [address] [facility] [address] [place] [address] Medical Oncologist/Accounts Executive Medical Oncology 10/05/22 Chace Oliva MD [address] [place] [address] Consulting Physician Infectious Diseases 12/22/2204/01 Giovanna Alexis MD [address] [place] [address] Radiation Oncologist Radiation Oncology 03/09/23 Taisha Suarez, commercial loan specialist Prehabilitation and Readiness (SPAR) Coordinator General Surgery 03/20/23 04/10/23 Sandra Ma MD [address] [facility]ICAL ONCOLOGY, [address], [address]B, [address] [place] [address] Consulting Physician Medical Oncology 04/25/23 05/09/23 Abby Higgins MD PhD [address] DIV IM MEDICAL ONCOLOGY, [address]A, [address]B, [address] [place] [address] Medical Oncologist/Accounts Executive Medical Oncology 05/10/23 Adrian Martinez MD [address] DIV SURG TRANSPLANT, [facility] [address] [place] [address] Surgical Oncologist Surgical Oncology 05/28/23 Vera Pérez PA [address] [place] [id number] [place] [address] Physician Mental Health Unit Lead Psychologist Colon and Rectal Surgery 09/13/23 Jim Frausto MD [address] [facility] [phone] [place] [address] Surgeon Colon and Rectal Surgery 11/21/23 Анна Robert, RN [address] [facility] [address] [place] [address] SHOP Outpatient Commercial Hvac Service Technician 09/29/24 10/01/24 documented as of this encounter
--- OUTSIDE RECORDS SUMMARY | 2025-04-07 19:40 | XMS_ITS | Encounter Summary ---
Author Organization [facility] Address [address] [place] [address] Phone Care Team Providers Care Case Resource Manager Name Role Phone Kenton Ricks MD Primary Care Provider + [phone] Pebbles Nelson MD Unavailable [phone] Aylin Russ MD Unavailable [phone] Maricruz Ramirez NP Unavailable [phone] Joanne Lopez RN Unavailable Padmini Leatha Carter Unavailable Unavailable Ben Chahal MD PhD Unavailable [phone] Chace Oliva MD Unavailable [phone] Giovanna Alexis MD Unavailable Taisha Suarez RN Unavailable Unavaila Sandra Aguirre MD Unavailable [phone] Abby Higgins MD PhD Unavailable + Adrian Martinez MD Unavailable [phone] Vera Pérez Unavailable [phone] Jim Frausto MD Unavailable [phone] Анна Robert RN Unavailable [phone] Encounter Details Date Type Department Care Team [...] week 10/17/2021 How often do you attend [facility] or sabianism services? More than 4 times per year [...] place to sleep or slept in a usp (including now)? No 10/17/2021 Sex and Gender Information Value Date Recorded Sex Assigned at Not on file Legal Sex Male 12:58 AM EARLY CHILDHOOD TEACHER ASSISTANT Gender Identity Male 11/11/2018 10:31 AM CDT Sexual Orientation Straight 06/09/2019 5: 34 PM EARLY CHILDHOOD TEACHER ASSISTANT documented as of this encounter Plan [...] COVID: Suspected 06/07/2023 06/07/2023 06/07/2023 12:46 PM EARLY CHILDHOOD TEACHER ASSISTANT COVID19 06/07/2023 06/07/2023 06/22/2023 3:06 AM EARLY CHILDHOOD TEACHER ASSISTANT COVID: Recovered Comment:Added based on recent COVID infection. 06/22/2023 06/22/2023 09/20/2023 3:05 AM C DT COVID: Suspected 07/24/2023 07/24/2023 07/24/2023 3:53 PM EARLY CHILDHOOD TEACHER ASSISTANT Diarrhea 07/30/2023 07/30/2023 08/13/2023 3:05 AM EARLY CHILDHOOD TEACHER ASSISTANT COVID: Suspected 08/30/2023 08/30/2023 08/30/2023 4:52 PM EARLY CHILDHOOD TEACHER ASSISTANT COVID: Suspected 10/12/2023 10/12/2023 10/12/2023 7:57 PM CDT Rhino/Enterovirus 10/12/2023 10/12/2023 10/26/2023 3:05 AM CDT COVID: Suspected 07/10/2024 07/10/2024 07/10/2024 4:53 PM EARLY CHILDHOOD TEACHER ASSISTANT COVID: Suspected Comment:07/16/2024 IP Review: no outstanding test, last RPP negative. Mary Tiwair RN 07/16/2024 07/16/2024202 5 10:51 AM EARLY CHILDHOOD TEACHER ASSISTANT COVID19 Comment:07/16/2024 IP Review: added by CLAUDIO DONNELLY negative. Mary Tiwari RN 07/16/2024 07/16/2024 07/16/2024 10:51 AM EARLY CHILDHOOD TEACHER ASSISTANT MRSA Comment:nasalMRSA Isolation Detention 09/03/24 07/16/2024 08/15/2024 09/03/2024 6:[address] C. difficile suspected 07/19/2024 07/19/202407/19 2:34 PM EARLY CHILDHOOD TEACHER ASSISTANT COVID: Suspected 07/23/2024 07/23/2024 07/23/2024 11:28 PM EARLY CHILDHOOD TEACHER ASSISTANT C. difficile suspected 07/23/2024 07/24/202407/24 10:31 AM EARLY CHILDHOOD TEACHER ASSISTANT Norovirus suspected 07/23/2024 07/24/2024 07/24/19 9:37 AM EARLY CHILDHOOD TEACHER ASSISTANT VRE Comment:Contact Precautions (gown and gloves) - not eligible for IP review until 6 months after positive culture - Jerod QURESHI, RN 10/01/24 07/24/2024 09/20/2024 03/19/2025 7:26 PM C DT COVID: Suspected 08/09/2024 08/09/2024 08/09/2024 9:40 AM EARLY CHILDHOOD TEACHER ASSISTANT Influenza, adult Comment:08/26/2024 IP Review: pt afebrile but on antipyretics. Needs 24 hours off antipyretics and symptoms significantly improved/resolved in order for isolation to be discontinued. Mary Tiwari RN 08/15/2024 08/15/2024 08/29/2024 3:06 AM EARLY CHILDHOOD TEACHER ASSISTANT Coronavirus, droplet 08/15/2024 08/15/2024 025 3:06 AM EARLY CHILDHOOD TEACHER ASSISTANT C. difficile suspected 09/19/2024 09/19/202409/20 3:05 AM CDT C. difficile suspected 09/20/2024 09/20/202409/20 10:39 PM CDT Ring Surveillance Comment:09/21/2024- [address] [employer] ring surveillance. Becki Peres VIM 5400 09/21/2024 09/21/202409/28/2024 3:05 AM C DT Norovirus suspected 09/21/2024 [...] documented as of this encounter Care Teams Case Resource Manager Relationship Specialty Start Date End Date Kenton Ricks MD PCP - General 08/14/16 Pebbles Nelson MD Referring Physician Cardiology 02/07/19 Aylin Russ MD [address] [facility] [address] [place] [address] Referring Physician Pulmonary Disease 02/07/19 Maricruz Ramirez, CHEESE PACKER [address] [place] [address] Nurse Practitioner Cardiovascular Disease 09/25/21 Joanne Lopez, RN Registered Nurse Pulmonary Disease 08/24/22 Leatha Cristina RMA Surgical Prehabilitation and Readiness (SPAR) Coordinator 09/01/22 01/02/23 Ben Chahal MD PhD [address] [facility] [address] [place] [address] Medical Oncologist/Squash Centre Manager Medical Oncology 10/05/22 Chace Oliva MD [address] [place] [address] Consulting Physician Infectious Diseases 12/22/2204/01 Giovanna Alexis MD [address] [place] [address] Radiation Oncologist Radiation Oncology 03/09/23 Taisha Suarez, ambulatory nurse Prehabilitation and Readiness (SPAR) Coordinator General Surgery 03/20/23 04/10/23 Sandra Ma MD [address] DIV IM MEDICAL ONCOLOGY, [facility] 7A, 7B, [address] [place] [address] Consulting Physician Medical Oncology 04/25/23 05/09/23 Abby Higgins MD PhD [address] DIV IM MEDICAL ONCOLOGY, [facility] [address]A, [address]B, [address] [place] [address] Medical Oncologist/Squash Centre Manager Medical Oncology 05/10/23 Adrian Martinez MD [address] DIV SURG TRANSPLANT, [address] [place] [address] Surgical Oncologist Surgical Oncology 05/28/23 Vera Pérez PA [address] [place] [id number] [place] [address] Physician Thermal Engineer Colon and Rectal Surgery 09/13/23 Jim Frausto MD [address] [facility] [phone] [place] [address] Surgeon Colon and Rectal Surgery 11/21/23 Анна Robert, RN [address] [facility] [address] [place] [address] SHOP Outpatient Tumbler Machine Operator 09/29/24 10/01/24 documented as of this encounter
--- NOTE | 2025-04-07 20:51 | ED.MALEGU ---
HPI - Male Genitourinary General Chief complaint: Urogenital-Male Stated complaint: left testicle swollen for a day Time Seen by Provider: 04/07/25 20:44 Source: patient Mode of arrival: ambulatory Limitations: no limitations History of Present Illness HPI Narrative: This is a 70 year old male that presents to the ER for left testicular swelling, pain. Ongoing over the last 2 days. Reports some dysuria. Denies fevers. He additionally endorses a headache. This is a chronic issue for him. Related Data Home Medications ?Medication ?Instructions ?Recorded ?Confirmed ?Last Taken ?Type simethicone 180 mg capsule (Gas 180 mg PO BID PRN Abdominal 08/31/22 03/25/25 10/25/22 History Relief (simethicone)) Discomfort fluticasone furoate 100 1 inh inhalation DAILY 10/27/22 03/25/25 10/27/22 09:00 History mcg-vilanterol 25 mcg/dose inhalation powder rosuvastatin 5 mg tablet (Crestor) 5 mg PO DAILY 03/22/23 03/25/25 02/16/25 History sennosides 8.6 mg-docusate sodium 1 tab-cap PO QHS 03/22/23 03/25/25 Unknown History 50 mg tablet tamsulosin 0.4 mg capsule 0.4 mg PO DAILY PRN urinary 03/22/23 03/25/25 Unknown History retention aspirin 81 mg tablet,delayed 81 mg PO DAILY 05/31/23 03/25/25 02/09/25 History release (Adult Low Dose Aspirin) Held on 02/17/25. Instructions: Resume on 02/19/25. fluticasone propionate 50 1 spray intranasal DAILY 05/31/23 03/25/25 02/16/25 History mcg/actuation nasal spray,suspension (Allergy Relief (fluticasone)) oxybutynin chloride 15 mg 15 mg PO DAILY 08/06/23 03/25/25 Unknown History tablet,extended release 24 hr [id number](pork)24,000-76,000-120,000 See Rx Instructions PO .up to 6 10/11/23 03/25/25 02/13/25 History unit capsule,del rel (Creon) times a day ascorbic acid (vitamin C) 500 mg 500 mg PO DAILY 10/22/23 03/25/2502/13/25 History capsule insulin aspart U-100 100 unit/mL 12 unit subcut .WITH MEALS 10/22/23 03/25/25 02/17/25 History (3 mL) subcutaneous pen (Novolog FlexPen U-100 Insulin aspart) insulin degludec 100 unit/mL (3 40 unit subcut QAM 10/22/23 03/25/25 02/17/25 History mL) subcutaneous pen (Tresiba FlexTouch U-100 insulin) torsemide 20 mg tablet 60 mg PO DAILY 10/22/23 03/25/25 02/16/25 History dicyclomine 20 mg tablet 20 mg PO TID 11/19/23 03/25/25 Unknown History B-complex with vitamin C 1 cap PO DAILY 01/26/25 03/25/25 02/13/25 History ferrous sulfate 325 mg (65 mg 325 mg PO DAILY 01/26/25 03/25/25 02/13/25 History iron) tablet lidocaine HCl 2 % mucosal jelly in topical 01/26/25 03/25/25 Unknown History applicator vibegron 75 mg tablet (Gemtesa) 75 mg PO HS 01/26/25 03/25/25 02/16/25 History multivitamin (Daily Multi-Vitamin 1 tablet PO DAILY 02/06/25 03/25/25 02/13/25 History tablet) Allergies Allergy/AdvReac Type Severity Reaction Status Date / Time meropenem Allergy Severe SHORTNESS Verified 04/07/25 19:58 OF BREATH vancomycin Allergy Severe Other Verified 04/07/25 19:58 iron dextran complex Allergy Other Verified 04/07/25 19:58 Sulfa (Sulfonamide Allergy Rash Verified 04/07/25 19:58 Antibiotics) menthol AdvReac Severe BROWER SKIN Verified 04/07/25 19:58 prochlorperazine (From AdvReac Severe Drowsy Verified 04/07/25 19:58 Compazine) metoclopramide (From Reglan) AdvReac Intermediate Agitated Verified 04/07/25 22:03 ceftriaxone (From Rocephin) AdvReac Mild Nausea and Verified 04/07/25 19:58 Vomiting Review of Systems Review of Systems: All systems reviewed & are unremarkable except as noted in HPI and below PMFSH Past Medical History Medical History Pneumonia Paroxysmal A-fib Diastolic CHF Chest pain Chronic pain Depression Anal fissure Vision changes Chest wall pain Stomatitis Pacemaker at end of battery life Accidental esophageal perforation during procedure BMI 34.0-34.9,adult BMI 33.0-33.9,adult Superficial venous thrombosis of right upper extremity (~09/2022) Strain of rhomboid muscle History of cluster headache Polyuria Syncope History of colon polyps Acute diastolic CHF (congestive heart failure) Family hx of colon cancer Knee osteoarthritis Dermatitis Neurogenic bladder Morbid (severe) obesity due to excess calories Thyroid nodule status post biopsy with benign pathology Adrenal adenoma stable on imaging since 2017 C. 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 Surgical History Surgical History History of Whipple procedure History of suprapubic catheter (11/2020) History of transurethral resection of prostate (08/2020) TUIP with cystoscopy and urethral dilatation performed by Dr. Schmidt Sacral nerve stimulator present (03/2020) S/P removal of thyroid nodule History of arthroscopy of left knee due to meniscal tear Biceps tendon rupture status post repair History of appendectomy History of prostatectomy with chronic urinary incontinence Status post left rotator cuff repair History of colonoscopy with polypectomy AICD (automatic cardioverter/defibrillator) present Status post trigger finger release bilateral Family History Family History Father Cerebrovascular accident Neurofibromatosis Coronary artery disease Diabetes mellitus CHF (congestive heart failure) Acute myocardial infarction Mother Breast cancer Cerebrovascular accident Grandparent Alcoholism Sibling Thyroid cancer sister Sibling Depression Breast cancer H/O mastectomy Sibling Depression Adrenal cancer sister Sibling Depression Social History Social History Social History: the patient briefly smoked while in college. He drinks 1-2 beers a week. He lives in [place] with his of 40 years. They have 3 children who are healthy and 3 grand children. 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 Code status: DNR/DNI (the patient reports that given his recent changes in his health status he wants to change his code status to DNR/DNI.) Power of admitted attorneys for healthcare: Claudine () Years smoked: 3 Smoking status: Former smoker Tobacco type: cigarettes Second hand tobacco smoke exposure: No Alcohol intake: current Drinks per week: 1 Alcohol use details: on occasion Substance use: never Substance use type: does not use Do You Feel Safe in your Home?: Yes Lack of Transportation: No Lack of Food: Never True Current Housing: I Have Housing Concerned About Future Housing: No Difficulty Paying Gas/Electric Bills: YES Difficulty Paying for Meds: No Currently Unemployed: No Education: Bachelor's Degree Difficulty w/ Childcare or Family Care: No Living arrangements: with family Additional living arrangements comments: AND SON Occupation/Education: retired Additional occupation/education comments: [employer]/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 HEAD: Normocephalic, atraumatic. EYES: PERRLA and EOMI. ENT: Nares clear, no rhinorrhea or epistaxis. Mucous membranes moist. Oropharynx without tonsillar hypertrophy exudate or other lesions. Bilateral TMs pearly lucas non-bulging NECK: Supple. No adenopathy or masses. CHEST: Clear to auscultation. No respiratory distress. No wheezes rales or rhonchi HEART: Regular rate and rhythm. No murmur heard. Normal peripheral pulses. ABDOMEN: Soft, nontender, nondistended, normal active bowel sounds. EXTREMITIES: Normal range of motion. No edema. SKIN: Warm, dry, no rash. NEURO: No focal deficits. Alert and oriented x3. PSYCH: Normal mood and affect MALE GENITAL: Left testicle is swollen, tender to palpation. No overlying erythema, rashes Course Consultations Consultation #1: Spoke with Dr. Maier about patient and workup. Recommends 2 weeks of antibiotics. Follow up in clinic. Date: 04/07/25 Vital Signs Vital signs: Vital Signs Temperature 98.8 F 04/07/25 19:58 Pulse Rate 60 04/07/25 19:58 Respiratory Rate 20 04/07/25 19:58 Blood Pressure 133/60 04/07/25 19:58 Pulse Oximetry 99 04/07/25 19:58 Oxygen Delivery Room Air 04/07/25 19:58 Temperature 98.8 F 04/07/25 19:58 Pulse Rate 61 04/07/25 20:44 Respiratory Rate 15 04/07/25 20:44 Blood Pressure 136/67 04/07/25 20:44 Pulse Oximetry 99 04/07/25 20:44 Oxygen Delivery Room Air 04/07/25 19:58 MDM - Male Genitourinary MDM Narrative Medical decision making narrative: Patient presents to the emergency department for left testicular pain and swelling. He is afebrile and nontoxic appearing. Cbc without leukocytosis. Metabolic panel with normal kidney function. Urine with evidence of infection. Scrotal ultrasound shows enlarged and hyperemic left epididymis and mild asymmetric increased vascular flow at the left testis suspicious for epididymitis and early orchitis. Spoke with Dr. Maier about patient and workup. Recommends 2 weeks of antibiotics. Follow up in clinic. Patient was given warnings to return to the ER Patient additionally was endorsing a headache. He has chronic issues with headaches. He is neurologically intact. CT brain without acute findings. Instructed on continued follow up with his specialist. Differential Diagnosis Differential diagnosis: Likely urinary tract infection and other (orchitis) Lab Data Attestation: I reviewed the patient's lab results. 04/07/25 21:19 04/07/25 21:19 Labs: Lab Results 04/07/25 04/07/25 Range/Units 20:46 21:19 WBC 8.9 (4.5-10.0) K/mm3 RBC 4.30 L (4.6-6.20) M/mm3 Hgb 11.3 L (14.0-18.0) g/dL Hct 35.7 L (42.0-52.0) % MCV 83.0 (80-100) fl MCH 26.3 (26-34) pg MCHC 31.7 L (32-36) g/dl RDW 16.5 H (11.5-14.5) % Plt Count 164 (150-375) k/mm3 MPV 10.0 (7.4-10.4) fl Immature Gran % (Auto) 0.6 H (0-0.5) % Neut % (Auto) 81.3 H (45.5-73.1) % Lymph % (Auto) 8.1 L (18.3-44.2) % [place] % (Auto) 7.3 (2.6-8.5) % Eos % (Auto) 2.4 (0-4.4) % Baso % (Auto) 0.3 (0.2-1.2) % Lymph # (Auto) 0.72 L (0.9-3.2) K/mm3 [place] # (Auto) 0.7 H (0.1-0.6) K/mm3 Eos # (Auto) 0.2 (0-0.3) K/mm3 Baso # (Auto) 0.0 (0.0-0.1) K/mm3 Abs Immat Gran (auto) 0.05 H (0.00-0.031) K/mm3 Absolute Neuts (auto) 7.3 H (1.3-6.7) K/mm3 Absolute Nucleated RBC 0.000 (0.0-0.012) K/mm3 Nucleated RBC % 0.0 (0.0-0.2) % Sodium 136 L (137-145) mmol/L Potassium 3.7 (3.4-5.0) mmol/L Chloride 99 (98-107) mmol/L Carbon Dioxide 29 (22-30) mmol/L Anion Gap 8 (4-12) mmol/L BUN 22 H (9-20) mg/dL Creatinine 0.69 L (0.7-1.3) mg/dL Estim Creat Clear Calc 98 ml/min Estimated GFR > 60 (59 - ) Glucose 278 H (65-110) mg/dL Calcium 8.7 (8.4-10.2) mg/dL Urine Color Yellow (Yellow) Urine Appearance Cloudy H (Clear) Urine pH 5.0 (5.0-9.0) Ur Specific [place] 1.009 (1.001-1.035) Urine Protein Negative (Negative) mg/dL Urine Glucose (UA) 2+ H (Negative) mg/dL Urine Ketones Negative (Negative) mg/dL Ur Blood (Man) Trace (Negative) Urine Nitrate Negative (Negative) Urine Bilirubin Negative (Negative) Urine Urobilinogen 0.2 (<2.0) mg/dL Leukocyte Esterase Rfl 2+ H (Negative) TY/UL Urine RBC 0-2 (0-2) /hpf Urine WBC 21-50 H (0-3) /hpf Ur Squamous Epith Cells None seen (Few) /hpf Urine Bacteria 4+ H /hpf Urine Casts 0-2 Imaging Data Radiologist's impression: ITS Impressions Scrotum Ultrasound 04/07/25 21:13 IMPRESSION: 1. Enlarged and hyperemic left epididymis and mild asymmetric increased vascular flow at the left testis suspicious for left epididymitis and early orchitis. CT brain: No acute intracranial hemorrhage. No midline shift or mass effect. The territorial lucas-white matter differentiation is maintained throughout. Age related cerebral volume loss. Periventricular and subcortical white matter hypoattenuation, consistent with chronic microangiopathy Critical Care Time Critical Care Time Critical Care Time: No Discharge Plan Discharge Clinical Impression: Acute epididymitis Patient Disposition: Home Condition: Stable Instructions: Antibiotic Form, Epididymo-Orchitis (ED) Additional Instructions: Return to the ER if you experience fever, abdominal pain with nausea and vomiting, you are unable to keep down liquids or solids, or any other symptoms that are concerning to you Remain well hydrated. Take oral antibiotics as prescribed Follow up with your urologist Patient Language: Slovak Prescriptions: New levofloxacin 500 mg tablet 500 mg PO DAILY 13 Days Qty: 13 0RF No Action aspirin [Adult Low Dose Aspirin] 81 mg tablet,delayed release (DR/EC) 81 mg PO DAILY fluticasone propionate [Allergy Relief (fluticasone)] 50 mcg/actuation spray,suspension 1 spray intranasal DAILY Rx Instructions: administer into each nostril Creon 24,000-76,000 -120,000 unit capsule,delayed release(DR/EC) See Rx Instructions PO .up to 6 times a day Rx Instructions: 5 with meal and 2 with snack orally UP TO 6 TIMES A DAY; administer with meals and/or snacks insulin degludec [Tresiba FlexTouch U-100] 100 unit/mL (3 mL) insulin pen 40 unit subcut QAM Patient Comments: torsemide 20 mg tablet 60 mg PO DAILY ascorbic acid (vitamin C) 500 mg capsule 500 mg PO DAILY dicyclomine 20 mg tablet 20 mg PO TID Patient Comments: TAKES QID ferrous sulfate 325 mg (65 mg iron) tablet 325 mg PO DAILY lidocaine HCl 2 % jelly in applicator topical Gemtesa 75 mg tablet 75 mg PO HS B-complex with vitamin C Capsule 1 cap PO DAILY simethicone [Gas Relief (simethicone)] 180 mg capsule 180 mg PO BID PRN (Reason: Abdominal Discomfort) oxybutynin chloride 15 mg tablet extended release 24hr 15 mg PO DAILY diclofenac sodium 1 % gel 2 g topical QID Qty: 100 0RF Rx Instructions: apply to single elbow, wrist or hand; for hand includes palm/fingers/back of hand cyclobenzaprine 5 mg tablet 5 mg PO TID PRN (Reason: muscle spasm) Qty: 90 0RF gabapentin 300 mg capsule 600 mg PO TID Qty: 270 0RF omeprazole 40 mg capsule,delayed release(DR/EC) 40 mg PO DAILY Qty: 90 0RF trazodone 100 mg tablet 100 mg PO DAILY Qty: 90 0RF ondansetron HCl 8 mg tablet 8 mg PO .before meals Qty: 30 0RF Ubrelvy 100 mg tablet 100 mg PO ONCE Qty: 10 0RF Rx Instructions: as a single dose; may repeat once in >=2 hours after first dose if needed oxycodone 5 mg tablet 5 mg PO Q8H PRN (Reason: pain) Qty: 30 0RF acetaminophen 500 mg capsule 1,000 mg PO Q6H PRN (Reason: pain) Qty: 20 0RF fluticasone furoate-vilanterol 100-25 mcg/dose Blister With Device 1 inh INHALATION DAILY multivitamin [Daily Multi-Vitamin] Tablet 1 tablet PO DAILY tamsulosin 0.4 mg capsule 0.4 mg PO DAILY PRN (Reason: urinary retention) rosuvastatin [Crestor] 5 mg tablet 5 mg PO DAILY sennosides-docusate sodium 8.6-50 mg tablet 1 tab-cap PO QHS albuterol sulfate [ProAir HFA] 90 mcg/actuation HFA aerosol inhaler 2 inh INHALATION Q6H PRN (Reason: shortness of breath) Qty: 6.7 0RF insulin aspart U-100 [Novolog FlexPen U-100 Insulin] 100 unit/mL (3 mL) insulin pen 12 unit subcut .WITH MEALS Rx Instructions: 8 units TID and sliding scale pramipexole 1 mg tablet See Rx Instructions .ROUTE .COMPLEX Qty: 270 1RF Dose Instruction: TAKE 1 TAB BY MOUTH DAILY IN THE MORNING, AND 2 DAILY IN THE EVENING Rx Instructions: TAKE 1 TAB BY MOUTH DAILY IN THE MORNING, AND 2 DAILY IN THE EVENING sucralfate [Carafate] 1 gram tablet 1 g PO Q6H Qty: 360 0RF Rx Instructions: Pt takes with each meal and one at bedtime Follow-up/Referrals: Roc Schmidt MD [Physician, Urology] Kenton Ricks MD [Primary Care Provider, Family Practice]
[2025-04-07 21:00] LABS: Add Urine Microscopic? YES; Appearance Urine Cloudy (Clear); Glucose Urine UA 2+ mg/dL (Negative); Leukocyte Esterase Ur 2+ LEU/UL (Negative); Nitrate Urine Negative (Negative); Non Pathogenic Casts 0-2; Specific Grav Ur 1.009 (1.001-1.035)
--- OUTSIDE RECORDS SUMMARY | 2025-04-07 21:11 | XMS_ITS | Encounter Summary ---
Author Organization [facility] Address [address] [place] [address] Phone Care Team Providers Care Pharmacist Manager Name Role Phone Kenton Ricks MD Primary Care Provider + [phone] Pebbles Nelson MD Unavailable [phone] Aylin Russ MD Unavailable [phone] Maricruz Ramirez NP Unavailable [phone] Joanne Lopez RN Unavailable Padmini Leatha Carter Unavailable Unavailable Ben Chahal MD PhD Unavailable [phone] Chace Oliva MD Unavailable [phone] Giovanna Alexis MD Unavailable Taisha Suarez RN Unavailable Unavaila Sandra Aguirre MD Unavailable [phone] Abby Higgins MD PhD Unavailable + Adrian Martinez MD Unavailable Vera Pérez Unavailable Jim Frausto MD Unavailable Анна Robert RN Unavailable Encounter Details Date Type Department Care Team (Late st Contact Info) Description 09/23/2018 Telephone [facility] [address] [facility] Advanced Medicine 8th [place] [address] [place] [address] Pebbles Nelson MD [address] [place] [address] Social History Tobacco Use Types Packs/Day Years Used Date Smoking Tobacco: Former Smokeless Tobacco: Never Alcohol Use Standard Drinks/Week Comments Yes 0 (1 standard drink = 0.6 oz pur e alcohol) Occassional Sex and Gender Information Value Date Recorded Sex Assigned at Not on file Legal Sex Male 12:58 AM TAX COMPLIANCE REPRESENTATIVE Gender Identity Male 11/11/2018 10:31 AM CDT Sexual Orientation Straight 06/09/2019 5: 34 PM TAX COMPLIANCE REPRESENTATIVE documented as of this encounter Plan of [...] COVID: Suspected 06/07/2023 06/07/2023 06/07/2023 12:46 PM TAX COMPLIANCE REPRESENTATIVE COVID19 06/07/2023 06/07/2023 06/22/2023 3:06 AM TAX COMPLIANCE REPRESENTATIVE COVID: Recovered Comment:Added based on recent COVID infection. 06/22/2023 06/22/2023 09/20/2023 3:05 AM C DT COVID: Suspected 07/24/2023 07/24/2023 07/24/2023 3:53 PM TAX COMPLIANCE REPRESENTATIVE Diarrhea 07/30/2023 07/30/2023 08/13/2023 3:05 AM TAX COMPLIANCE REPRESENTATIVE COVID: Suspected 08/30/2023 08/30/2023 08/30/2023 4:52 PM TAX COMPLIANCE REPRESENTATIVE COVID: Suspected 10/12/2023 10/12/2023 10/12/2023 7:57 PM CDT Rhino/Enterovirus 10/12/2023 10/12/2023 10/26/2023 3:05 AM CDT COVID: Suspected 07/10/2024 07/10/2024 07/10/2024 4:53 PM TAX COMPLIANCE REPRESENTATIVE COVID: Suspected Comment:07/16/2024 IP Review: no outstanding test, last RPP negative. Mary Tiwari RN 07/16/2024 07/16/2024 10:51 AM TAX COMPLIANCE REPRESENTATIVE COVID19 Comment:07/16/2024 IP Review: added by RN, RPP negative. Mary Tiwari RN 07/16/2024 07/16/2024 07/16/2024 10:51 AM TAX COMPLIANCE REPRESENTATIVE MRSA Comment:nasalMRSA Isolation Custodial 09/03/24 07/16/2024 08/15/2024 09/03/2024 6:[address] C. difficile suspected 07/19/2024 07/19/202407/19 2:34 PM TAX COMPLIANCE REPRESENTATIVE COVID: Suspected 07/23/2024 07/23/2024 07/23/2024 11:28 PM TAX COMPLIANCE REPRESENTATIVE C. difficile suspected 07/23/2024 07/24/202407/24 10:31 AM TAX COMPLIANCE REPRESENTATIVE Norovirus suspected 07/23/2024 07/24/2024 07/24/19 9:37 AM TAX COMPLIANCE REPRESENTATIVE VRE Comment:Contact Precautions (gown and gloves) - not eligible for IP review until 6 months after positive culture - Jerod QURESHI, CONY 10/01/24 07/24/2024 09/20/2024 03/19/2025 7:26 PM C DT COVID: Suspected 08/09/2024 08/09/2024 08/09/2024 9:40 AM TAX COMPLIANCE REPRESENTATIVE Influenza, adult Comment:08/26/2024 IP Review: pt afebrile but on antipyretics. Needs 24 hours off antipyretics and symptoms significantly improved/resolved in order for isolation to be discontinued. Mary Tiwari RN 08/15/2024 08/15/2024 08/29/2024 3:06 AM TAX COMPLIANCE REPRESENTATIVE Coronavirus, droplet 08/15/2024 08/15/2024 025 3:06 AM TAX COMPLIANCE REPRESENTATIVE C. difficile suspected 09/19/2024 09/19/202409/20 3:05 AM [...] documented as of this encounter Care Teams Pharmacist Manager Relationship Specialty Start Date End Date Kenton Ricks MD PCP - General 08/14/16 Pebbles Nelson MD Referring Physician Cardiology 02/07/19 Aylin Russ MD [address] [place] [address] Referring Physician Pulmonary Disease 02/07/19 Maricruz Ramirez, INSTRUCTOR PSYCHIATRIC AIDE [address] [place] [address] Nurse Practitioner Cardiovascular Disease 09/25/21 Joanne Lopez, CONY Registered Nurse Pulmonary Disease 08/24/22 Leatha Cristina RMA Surgical Prehabilitation and Readiness (SPAR) Coordinator 09/01/22 01/02/23 Ben Chahal MD PhD [address] [facility] [address] [place] [address] Medical Oncologist/Supervisor [employer] Medical Oncology 10/05/22 Chace Oliva MD [address] [address] [place] [address] Consulting Physician Infectious Diseases 12/22/2204/01 Giovanna Alexis MD [address] [place] [address] Radiation Oncologist Radiation Oncology 03/09/23 Taisha Suarez, skiver machine Prehabilitation and Readiness (SPAR) Coordinator General Surgery 03/20/23 04/10/23 Sandra Ma MD [address] DIV IM MEDICAL ONCOLOGY, [address] [place] [address] Consulting Physician Medical Oncology 04/25/23 05/09/23 Abby Higgins MD PhD [address] DIV IM MEDICAL ONCOLOGY, [address] [place] [address] Medical Oncologist/Supervisor [employer] Medical On[facility] 05/10/23 Adrian Martinez MD [address] [facility] DIV SURG TRANSPLANT, [facility] [address] [place] [address] Surgical Oncologist Surgical Oncology 05/28/23 Vera Pérez PA [address] [place] [id number] [place] [address] Physician Curator Colon and Rectal Surgery 09/13/23 Jim Frausto MD [address] [facility] [id number] [place] [address] Surgeon Colon and Rectal Surgery 11/21/23 Анна Robert, RN [address] [facility] [address] [place] [address] SHOP Outpatient Consumer Affairs Director 09/29/24 10/01/24 documented as of this encounter
--- OUTSIDE RECORDS SUMMARY | 2025-04-07 21:11 | XMS_ITS | Encounter Summary ---
Author Organization [facility] Address [address] [place] [address] Phone Care Team Providers Care Plant Tour Guide Name Role Phone Kenton Ricks MD Primary Care Provider + [phone] Pebbles Nelson MD Unavailable [phone] Aylin Russ MD Unavailable [phone] Marciruz Ramirez NP Unavailable [phone] Joanne Lopez RN Unavailable Padmini Leatha Carter Unavailable Unavailable Ben Chahal MD PhD Unavailable +[phone] Chace Oliva MD Unavailable [phone] Giovanna Alexis MD Unavailable Taisha Suarez RN Unavailable Unavaila Sandra Aguirre MD Unavailable [phone] Abby Higgins MD PhD Unavailable + Adrian Martinez MD Unavailable [phone] Vera Pérez Unavailable +[phone] Jim Frausto MD Unavailable [phone] Анна Robert RN Unavailable [phone] Encounter Details Date Type Department Care Team (Latest Contact Info) Description 11/15/2017 Orders Only [facility] Scanning, Provider Social History Tobacco Use Types Packs/Day Years Used Date Smoking Tobacco: Former Sex and Gender Information Value Date Recorded Sex Assigned at Not on file Legal Sex Male 12:58 AM LOOM FIXER HELPER Gender Identity Male 11/11/2018 10:31 AM CDT Sexual Orientation Straight 06/09/2019 5: 34 PM LOOM FIXER HELPER documented as of this encounter Plan of [...] COVID: Suspected 06/07/2023 06/07/2023 06/07/2023 12:46 PM LOOM FIXER HELPER COVID19 06/07/2023 06/07/2023 06/22/2023 3:06 AM LOOM FIXER HELPER COVID: Recovered Comment:Added based on recent COVID infection. 06/22/2023 06/22/2023 09/20/2023 3:05 AM C DT COVID: Suspected 07/24/2023 07/24/2023 07/24/2023 3:53 PM LOOM FIXER HELPER Diarrhea 07/30/2023 07/30/2023 08/13/2023 3:05 AM LOOM FIXER HELPER COVID: Suspected 08/30/2023 08/30/2023 08/30/2023 4:52 PM LOOM FIXER HELPER COVID: Suspected 10/12/2023 10/12/2023 10/12/2023 7:57 PM CDT Rhino/Enterovirus 10/12/2023 10/12/2023 10/26/2023 3:05 AM CDT COVID: Suspected 07/10/2024 07/10/2024 07/10/2024 4:53 PM LOOM FIXER HELPER COVID: Suspected Comment:07/16/2024 IP Review: no outstanding test, last RPP negative. Mary Tiwari RN 07/16/2024 07/16/2024 10:51 AM LOOM FIXER HELPER COVID19 Comment:07/16/2024 IP Review: added by CLAUDIO DONNELLY negative. Mary Tiwari RN 07/16/2024 07/16/2024 07/16/2024 10:51 AM LOOM FIXER HELPER MRSA Comment:nasalMRSA Isolation Alf 09/03/24 07/16/2024 08/15/2024 09/03/2024 6:[address] C. difficile suspected 07/19/2024 07/19/202407/19 2:34 PM LOOM FIXER HELPER COVID: Suspected 07/23/2024 07/23/2024 07/23/2024 11:28 PM LOOM FIXER HELPER C. difficile suspected 07/23/2024 07/24/202407/24 10:31 AM LOOM FIXER HELPER Norovirus suspected 07/23/2024 07/24/2024 07/24/19 9:37 AM LOOM FIXER HELPER VRE Comment:Contact Precautions (gown and gloves) - not eligible for IP review until 6 months after positive culture - Jerod LEEN, CONY 10/01/24 07/24/2024 09/20/2024 03/19/2025 7:26 PM C DT COVID: Suspected 08/09/2024 08/09/2024 08/09/2024 9:40 AM LOOM FIXER HELPER Influenza, adult Comment:08/26/2024 IP Review: pt afebrile but on antipyretics. Needs 24 hours off antipyretics and symptoms significantly improved/resolved in order for isolation to be discontinued. Mary Tiwari RN 08/15/2024 08/15/2024 08/29/2024 3:06 AM LOOM FIXER HELPER Coronavirus, droplet 08/15/2024 08/15/2024 025 3:06 AM LOOM FIXER HELPER C. difficile suspected 09/19/2024 09/19/202409/20 3:05 AM [...] documented as of this encounter Care Teams Plant Tour Guide Relationship Specialty Start Date End Date Kenton Ricks MD PCP - General 08/14/16 Pebbles Nelson MD Referring Physician Cardiology 02/07/19 Aylin uRss MD [address] [facility] [address] [place] [address] Referring Physician Pulmonary Disease 02/07/19 Maricruz Ramirez, VULCANIZING PRESS OPERATOR [address] [place] [address] Nurse Practitioner Cardiovascular Disease 09/25/21 Joanne Lopez, RN Registered Nurse Pulmonary Disease 08/24/22 Leatha Cristina RMA Surgical Prehabilitation and Readiness (SPAR) Coordinator 09/01/22 01/02/23 Ben Chahal MD PhD 10 [facility] [address] 2 [place] [address] Medical Oncologist/Fabric Sourcer Medical Oncology 10/05/22 Chace Oliva MD [address] [facility] [address] [place] [address] Consulting Physician Infectious Diseases 12/22/2204/01 Giovanna Alexis MD [address] [facility] [address] LL LL [address] [place] [address] Radiation Oncologist Radiation Oncology 03/09/23 Taisha Suarez, ticket machine operator Prehabilitation and Readiness (SPAR) Coordinator General Surgery 03/20/23 04/10/23 Sandra Ma MD [address] DIV IM MEDICAL ONCOLOGY, [facility] 7A, 7B, [address]C [place] [address] Consulting Physician Medical Oncology 04/25/23 05/09/23 Abby Higgins MD PhD [address] DIV IM MEDICAL ONCOLOGY, [facility] 7A, 7B, [address]C [place] [address] Medical Oncologist/Fabric Sourcer Medical Oncology 05/10/23 Adrian Martinez MD 49[address] [facility] DIV SURG TRANSPLANT, [address] [place] [address] Surgical Oncologist Surgical Oncology 05/28/23 Vera Pérez PA [address] [place] [id number] [place] [address] Physician Chief Medical Director Colon and Rectal Surgery 09/13/23 Jim Frausto MD [address] [facility] [id number] [place] [address] Surgeon Colon and Rectal Surgery 11/21/23 Анна Robert, RN [address] [facility] [address] [place] [address] SHOP Outpatient Manager Area 09/29/24 10/01/24 documented as of this encounter
--- OUTSIDE RECORDS SUMMARY | 2025-04-07 21:11 | XMS_ITS | Encounter Summary ---
Author Organization [facility] Address [address] [place] [address] Phone Care Team Providers Care Train Operations Supervisor Name Role Phone Kenton Ricks MD Primary Care Provider + [phone] Pebbles Nelson MD Unavailable [phone] Aylin Russ MD Unavailable [phone] Maricruz Ramirez NP Unavailable [phone] Joanne Lopez RN Unavailable Padmini Leatha Carter Unavailable Unavailable Ben Chahal MD PhD Unavailable [phone] Chace Oliva MD Unavailable [phone] Giovanna Alexis MD Unavailable Taisha Suarez RN Unavailable Unavaila Sandra Aguirre MD Unavailable [phone] Abby Higgins MD PhD Unavailable + Adrian Martinez MD Unavailable [phone] Vera Pérez Unavailable [phone] Jim Frausto MD Unavailable [phone] Анна Robert RN Unavailable [phone] Encounter Details Date Type Department Care Team (Late st Contact Info) Description 07/13/2017 Orders Only [facility]CON[facility] Provider, MD Max [address] [place], [place] [id number] Social History Tobacco Use Types Packs/Day Years Used Date Smoking Tobacco: Former Sex and Gender Information Value Date Recorded Sex Assigned at Not on file Legal Sex Male 12:58 AM FIRE TRUCK DRIVER Gender Identity Male 11/11/2018 10:31 AM CDT Sexual Orientation Straight 06/09/2019 5: 34 PM FIRE TRUCK DRIVER documented as of this encounter Plan of [...] COVID: Suspected 06/07/2023 06/07/2023 06/07/2023 12:46 PM FIRE TRUCK DRIVER COVID19 06/07/2023 06/07/2023 06/22/2023 3:06 AM FIRE TRUCK DRIVER COVID: Recovered Comment:Added based on recent COVID infection. 06/22/2023 06/22/2023 09/20/2023 3:05 AM C DT COVID: Suspected 07/24/2023 07/24/2023 07/24/2023 3:53 PM FIRE TRUCK DRIVER Diarrhea 07/30/2023 07/30/2023 08/13/2023 3:05 AM FIRE TRUCK DRIVER COVID: Suspected 08/30/2023 08/30/2023 08/30/2023 4:52 PM FIRE TRUCK DRIVER COVID: Suspected 10/12/2023 10/12/2023 10/12/2023 7:57 PM CDT Rhino/Enterovirus 10/12/2023 10/12/2023 10/26/2023 3:05 AM CDT COVID: Suspected 07/10/2024 07/10/2024 07/10/2024 4:53 PM FIRE TRUCK DRIVER COVID: Suspected Comment:07/16/2024 IP Review: no outstanding test, last RPP negative. Mary Tiwari RN 07/16/2024 07/16/2024 10:51 AM FIRE TRUCK DRIVER COVID19 Comment:07/16/2024 IP Review: added by RN, RPP negative. Mary Tiwari RN 07/16/2024 07/16/2024 07/16/2024 10:51 AM FIRE TRUCK DRIVER MRSA Comment:nasalMRSA Isolation Care Home 09/03/24 07/16/2024 08/15/2024 09/03/2024 6:44 AM FIRE TRUCK DRIVER C. difficile suspected 07/19/2024 07/19/202407/19 2:34 PM FIRE TRUCK DRIVER COVID: Suspected 07/23/2024 07/23/2024 07/23/2024 11:28 PM FIRE TRUCK DRIVER C. difficile suspected 07/23/2024 07/24/202407/24 10:31 AM FIRE TRUCK DRIVER Norovirus suspected 07/23/2024 07/24/2024 07/24/19 9:37 AM FIRE TRUCK DRIVER VRE Comment:Contact Precautions (gown and gloves) - not eligible for IP review until 6 months after positive culture - Jerod QURESHI, CONY 10/01/24 07/24/2024 09/20/2024 03/19/2025 7:26 PM C DT COVID: Suspected 08/09/2024 08/09/2024 08/09/2024 9:40 AM FIRE TRUCK DRIVER Influenza, adult Comment:08/26/2024 IP Review: pt afebrile but on antipyretics. Needs 24 hours off antipyretics and symptoms significantly improved/resolved in order for isolation to be discontinued. Mary Tiwari RN 08/15/2024 08/15/2024 08/29/2024 3:06 AM FIRE TRUCK DRIVER Coronavirus, droplet 08/15/2024 08/15/2024 025 3:06 AM FIRE TRUCK DRIVER C. difficile suspected 09/19/2024 09/19/202409/20 3:05 AM [...] documented as of this encounter Care Teams Train Operations Supervisor Relationship Specialty Start Date End Date Kenton Ricks MD PCP - General 08/14/16 Pebbles Nelson MD Referring Physician Cardiology 8/9/19 Aylin Russ MD [address] [place] [address] Referring Physician Pulmonary Disease 02/07/19 Maricruz Ramirez RICE FARMWORKER [address] [place] [address] Nurse Practitioner Cardiovascular Disease 09/25/21 Joanne Lopez, RN Registered Nurse Pulmonary Disease 08/24/22 Leatha Cristina RMA Surgical Prehabilitation and Readiness (SPAR) Coordinator 09/01/22 01/02/23 Ben Chahal MD PhD 10 [facility] # 2 [place] [address] Medical Oncologist/Air Conditioner Installer Helper Medical Oncology 10/05/22 Chace Oliva MD [address] [facility] [address] [place] [address] Consulting Physician Infectious Diseases 12/22/2204/01 Giovanna Alexis MD [address] # LL LL [address] [place] [address] Radiation Oncologist Radiation Oncology 03/09/23 Taisha Suarez, tire sorter Prehabilitation and Readiness (SPAR) Coordinator General Surgery 03/20/23 04/10/23 Sandra Ma MD [address] DIV IM MEDICAL ONCOLOGY, [address] 7A, 7B, [address] [place] [address] Consulting Physician Medical Oncology 04/25/23 05/09/23 Abby Higgins MD PhD [address] DIV IM MEDICAL ONCOLOGY, [address] 7A, 7B, [address] [place] [address] Medical Oncologist/Air Conditioner Installer Helper Medical Oncology 05/10/23 Adrian Martinez MD [address] [facility] DIV SURG TRANSPLANT, [facility] [address] [place] [address] Surgical Oncologist Surgical Oncology 05/28/23 Vera Pérez PA [address] [phone] [place] [address] Physician Supervisor Floor Assembly Colon and Rectal Surgery 09/13/23 Jim Frausto MD [address] [facility] [phone] [place] [address] Surgeon Colon and Rectal Surgery 11/21/23 Анна Robert, RN [address] [facility] [address] [place] [address] SHOP Outpatient Adoption Worker 09/29/24 10/01/24 documented as of this encounter
--- OUTSIDE RECORDS SUMMARY | 2025-04-07 21:11 | XMS_ITS | Encounter Summary ---
Author Organization [facility] Address [address] [place] [address] Phone Care Team Providers Care Machine Bander And Cellophaner Helper Name Role Phone Kenton Ricks MD Primary Care Provider + [phone] Pebbles Nelson MD Unavailable [phone] Aylin Russ MD Unavailable [phone] Maricruz Ramirez NP Unavailable [phone] Joanne Lopez RN Unavailable Padmini Leatha Carter Unavailable Unavailable Ben Chahal MD PhD Unavailable [phone] Chace Oliva MD Unavailable [phone] Giovanna Alexis MD Unavailable Taisha Suarez RN Unavailable Unavaila Sandra Aguirre MD Unavailable [phone] Abby Higgins MD PhD Unavailable + Adrian Martinez MD Unavailable [phone] Vera Pérez Unavailable [phone] Jim Frausto MD Unavailable [phone] Анна Robert RN Unavailable [phone] Encounter Details Date Type Department Care Team [...] on file Legal Sex Male 12:58 AM FOOT TENDER Gender Identity Male 11/11/2018 10:31 AM CDT Sexual Orientation Straight 06/09/2019 5: 34 PM FOOT TENDER documented as of this encounter Plan of [...] COVID: Suspected 06/07/2023 06/07/2023 06/07/2023 12:46 PM FOOT TENDER COVID19 06/07/2023 06/07/2023 06/22/2023 3:06 AM FOOT TENDER COVID: Recovered Comment:Added based on recent COVID infection. 06/22/2023 06/22/2023 09/20/2023 3:05 AM C DT COVID: Suspected 07/24/2023 07/24/2023 07/24/2023 3:53 PM FOOT TENDER Diarrhea 07/30/2023 07/30/2023 08/13/2023 3:05 AM FOOT TENDER COVID: Suspected 08/30/2023 08/30/2023 08/30/2023 4:52 PM FOOT TENDER COVID: Suspected 10/12/2023 10/12/2023 10/12/2023 7:57 PM CDT Rhino/Enterovirus 10/12/2023 10/12/2023 10/26/2023 3:05 AM CDT COVID: Suspected 07/10/2024 07/10/2024 07/10/2024 4:53 PM FOOT TENDER COVID: Suspected Comment:07/16/2024 IP Review: no outstanding test, last RPP negative. Mary Tiwari RN 07/16/2024 07/16/2024 10:51 AM FOOT TENDER COVID19 Comment:07/16/2024 IP Review: added by RN, RPP negative. Mary Tiwari RN 07/16/2024 07/16/2024 07/16/2024 10:51 AM FOOT TENDER MRSA Comment:nasalMRSA Isolation Fpc 09/03/24 07/16/2024 08/15/2024 09/03/2024 6:[address] C. difficile suspected 07/19/2024 07/19/202407/19 2:34 PM FOOT TENDER COVID: Suspected 07/23/2024 07/23/2024 07/23/2024 11:28 PM FOOT TENDER C. difficile suspected 07/23/2024 07/24/202407/24 10:31 AM FOOT TENDER Norovirus suspected 07/23/2024 07/24/2024 07/24/19 9:37 AM FOOT TENDER VRE Comment:Contact Precautions (gown and gloves) - not eligible for IP review until 6 months after positive culture - Jerod QURESHI, CONY 10/01/24 07/24/2024 09/20/2024 03/19/2025 7:26 PM C DT COVID: Suspected 08/09/2024 08/09/2024 08/09/2024 9:40 AM FOOT TENDER Influenza, adult Comment:08/26/2024 IP Review: pt afebrile but on antipyretics. Needs 24 hours off antipyretics and symptoms significantly improved/resolved in order for isolation to be discontinued. Mary Tiwari RN 08/15/2024 08/15/2024 08/29/2024 3:06 AM FOOT TENDER Coronavirus, droplet 08/15/2024 08/15/2024 025 3:06 AM FOOT TENDER C. difficile suspected 09/19/2024 09/19/202409/20 /2025 3:05 [...] documented as of this encounter Care Teams Machine Bander And Cellophaner Helper Relationship Specialty Start Date End Date Kenton Ricks MD PCP - General 08/14/16 Pebbles Nelson MD Referring Physician Cardiology 02/07/19 Aylin Russ MD [address] [place] [address] Referring Physician Pulmonary Disease 02/07/19 Maricruz Ramirez SCAFFOLDING HELPER [address] [place] [address] Nurse Practitioner Cardiovascular Disease 09/25/21 Joanne Lopez, CONY Registered Nurse Pulmonary Disease 08/24/22 Leatha Cristina RMA Surgical Prehabilitation and Readiness (SPAR) Coordinator 09/01/22 01/02/23 Ben Chahal MD PhD 10 [facility] [address] 2 [place] [address] Medical Oncologist/Horizontal Boring Mill Set Up Operator Medical Oncology 10/05/22 Chace Oliva MD [address] [facility] [address] [place] [address] Consulting Physician Infectious Diseases 12/22/2204/01 Giovanna Alexis MD 49[address] [facility] # LL LL [address] [place] [address] Radiation Oncologist Radiation Oncology 03/09/23 Taisha Suarez, contracts intern Prehabilitation and Readiness (SPAR) Coordinator General Surgery 03/20/23 04/10/23 Sandra Ma MD [address] [facility] [address] DIV MEDICAL ONCOLOGY, [facility] 7A, 7B, [address] [place] [address] Consulting Physician Medical Oncology 04/25/23 05/09/23 Abby Higgins MD PhD [address] DIV IM MEDICAL ONCOLOGY, [facility] 7A, 7B, [address] [place] [address] Medical Oncologist/Horizontal Boring Mill Set Up Operator Medical Oncology 05/10/23 Adrian Martinez MD [address] DIV SURG TRANSPLANT, [address] [place] [address] Surgical Oncologist Surgical Oncology 05/28/23 Vera Pérez PA [address] [place] [phone] [place] [address] Physician Lead Software Architect Colon and Rectal Surgery 09/13/23 Jim Frausto MD [address] [facility] [phone] [place] [address] Surgeon Colon and Rectal Surgery 11/21/23 Анна Robert, RN 4590 [facility] [address] [place] [address] SHOP Outpatient Recruiting Assistant 09/29/24 10/01/24 documented as of this encounter
--- OUTSIDE RECORDS SUMMARY | 2025-04-07 21:11 | XMS_ITS | Encounter Summary ---
Author Organization [facility] Address [address] [place] [address] Phone Care Team Providers Care Boat Builder And Repairer Name Role Phone Kenton Ricks MD Primary Care Provider + [phone] Pebbles Nelson MD Unavailable [phone] Aylin Russ MD Unavailable [phone] Maricruz Ramirez NP Unavailable [phone] Joanne Lopez RN Unavailable Padmini Leatha Carter Unavailable Unavailable Ben Chahal MD PhD Unavailable [phone] Chace Oliva MD Unavailable [phone] Giovanna Alexis MD Unavailable Taisha Suarez RN Unavailable Unavaila Sandra Aguirre MD Unavailable [phone] Abby Higgins MD PhD Unavailable + Adrian Martinez MD Unavailable Vera Pérez Unavailable [phone] Jim Frausto MD Unavailable [phone] Анна Robert RN Unavailable [phone] Encounter Details Date Type Department Care Team (Latest Contact Info) Description 12/14/2016 Orders Only [facility] CONVERSION Scanning, Provider Social History Tobacco Use Types Packs/Day Years Used Date Smoking Tobacco: Never Assessed Sex and Gender Information Value Date Recorded Sex Assigned at Not on file Legal Sex Male 12:58 AM TISSUE SPECIALIST Gender Identity Male 11/11/2018 10:31 AM CDT Sexual Orientation Straight 06/09/2019 5: 34 PM TISSUE SPECIALIST documented as of this encounter Plan [...] COVID: Suspected 06/07/2023 06/07/2023 06/07/2023 12:46 PM TISSUE SPECIALIST COVID19 06/07/2023 06/07/2023 06/22/2023 3:06 AM TISSUE SPECIALIST COVID: Recovered Comment:Added based on recent COVID infection. 06/22/2023 06/22/2023 09/20/2023 3:05 AM C DT COVID: Suspected 07/24/2023 07/24/2023 07/24/2023 3:53 PM TISSUE SPECIALIST Diarrhea 07/30/2023 07/30/2023 08/13/2023 3:05 AM TISSUE SPECIALIST COVID: Suspected 08/30/2023 08/30/2023 08/30/2023 4:52 PM TISSUE SPECIALIST COVID: Suspected 10/12/2023 10/12/2023 10/12/2023 7:57 PM CDT Rhino/Enterovirus 10/12/2023 10/12/2023 10/26/2023 3:05 AM CDT COVID: Suspected 07/10/2024 07/10/2024 07/10/2024 4:53 PM TISSUE SPECIALIST COVID: Suspected Comment:07/16/2024 IP Review: no outstanding test, last RPP negative. Mary Tiwari RN 07/16/2024 07/16/2024 10:51 AM TISSUE SPECIALIST COVID19 Comment:07/16/2024 IP Review: added by RN, RPP negative. Mary Tiwari RN 07/16/2024 07/16/2024 07/16/2024 10:51 AM TISSUE SPECIALIST MRSA Comment:nasalMRSA Isolation Longterm 09/03/24 07/16/2024 08/15/2024 09/03/2024 6:[address] C. difficile suspected 07/19/2024 07/19/202407/19 2:34 PM TISSUE SPECIALIST COVID: Suspected 07/23/2024 07/23/2024 07/23/2024 11:28 PM TISSUE SPECIALIST C. difficile suspected 07/23/2024 07/24/202407/24 10:31 AM TISSUE SPECIALIST Norovirus suspected 07/23/2024 07/24/2024 07/24/19 9:37 AM TISSUE SPECIALIST VRE Comment:Contact Precautions (gown and gloves) - not eligible for IP review until 6 months after positive culture - Jerod QURESHI, CONY 10/01/24 07/24/2024 09/20/2024 03/19/2025 7:26 PM C DT COVID: Suspected 08/09/2024 08/09/2024 08/09/2024 9:40 AM TISSUE SPECIALIST Influenza, adult Comment:08/26/2024 IP Review: pt afebrile but on antipyretics. Needs 24 hours off antipyretics and symptoms significantly improved/resolved in order for isolation to be discontinued. Mary Tiwari RN 08/15/2024 08/15/2024 08/29/2024 3:06 AM TISSUE SPECIALIST Coronavirus, droplet 08/15/2024 08/15/2024 025 3:06 AM TISSUE SPECIALIST C. difficile suspected 09/19/2024 09/19/202409/20 3:05 [...] documented as of this encounter Care Teams Boat Builder And Repairer Relationship Specialty Start Date End Date Kenton Ricks MD PCP - General 08/14/16 Pebbles Nelson MD Referring Physician Cardiology 02/07/19 Aylin Russ MD [address] [facility] [address] [place] [address] Referring Physician Pulmonary Disease 02/07/19 Maricruz Ramirez, GLOVE PARTS INSPECTOR [address] [place] [address] Nurse Practitioner Cardiovascular Disease 09/25/21 Joanne oLpez, CONY Registered Nurse Pulmonary Disease 08/24/22 Leatha Cristina RMA Surgical Prehabilitation and Readiness (SPAR) Coordinator 09/01/22 01/02/23 Ben Chahal MD PhD 10 [facility] # 2 [place] [address] Medical Oncologist/Milling Machine Set Up Operator Medical Oncology 10/05/22 Chace Oliva MD [address] [facility] [address] [place] [address] Consulting Physician Infectious Diseases 12/22/2204/01 Giovanna Alexis MD [address] LL LL [address] [place] [address] Radiation Oncologist Radiation Oncology 03/09/23 Taisha Suarez, plasma processing technician Prehabilitation and Readiness (SPAR) Coordinator General Surgery 03/20/23 04/10/23 Sandra Ma MD [address] DIV IM MEDICAL ONCOLOGY, [facility] 7A, 7B, 7C [place] [address] Consulting Physician Medical Oncology 04/25/23 05/09/23 Abby Higgins MD PhD [address] DIV MEDICAL ONCOLOGY, [facility] 7A, 7B, 7C [place] [address] Medical Oncologist/Milling Machine Set Up Operator Medical Oncology 05/10/23 Adrian Martinez MD 4921 [facility] SURG TRANSPLANT, [facility] [address]B [place] [address] Surgical Oncologist Surgical Oncology 05/28/23 Vera Pérez PA [address] [place] [id number] [place] [address] Physician Cut Off Saw Tender Metal Colon and Rectal Surgery 09/13/23 Jim Frausto MD [address] [facility] [phone] [place] [address] Surgeon Colon and Rectal Surgery 11/21/23 Анна Robert, RN 4590 [facility] [address] [place] [address] SHOP Outpatient Operator Technician 09/29/24 10/01/24 documented as of this encounter
--- OUTSIDE RECORDS SUMMARY | 2025-04-07 21:12 | XMS_ITS | Encounter Summary ---
Author Organization formerly [facility] Address [address] [place] [address] Care Team Providers Care Guncotton Packer Name Role Phone Kenton Ricks MD Primary Care Provider + [phone] Pebbles Nelson MD Unavailable +[phone] Aylin Russ MD Unavailable +[phone] Maricruz Ramirez NP Unavailable [phone] Joanne Lopez RN Unavailable Padmini Leatha Carter Unavailable Unavailable Ben Chahal MD PhD Unavailable [phone] Chace Oliva MD Unavailable +[phone] Giovanna Alexis MD Unavailable Taisha Suarez RN Unavailable Unavaila Sandra Aguirre MD Unavailable +[phone] Abby Higgins MD PhD Unavailable + Adrian Martinez MD Unavailable [phone] Vera Pérez Unavailable Jim Frausto MD Unavailable Анна Robert RN Unavailable [phone] Encounter Details Date Type Department Care Team (Late st Contact Info) Description 06/15/2020 Telephone [facility] Radiology [address] [place] [address] Adalberto Zavala MD [address] [place] [address] Social History Tobacco Use Types Packs/Day Years Used Date Smoking Tobacco: Former Smokeless Tobacco: Never Alcohol Use Standard Drinks/Week Comments Yes 0 (1 standard drink = 0.6 oz pur e alcohol) Occassional Sex and Gender Information Value Date Recorded Sex Assigned at Not on file Legal Sex Male 12:58 AM MAT GAUGER Gender Identity Male 11/11/2018 10:31 AM CDT Sexual Orientation Straight 06/09/2019 5: 34 PM MAT GAUGER documented as of this encounter Plan of [...] COVID: Suspected 06/07/2023 06/07/2023 06/07/2023 12:46 PM MAT GAUGER COVID19 06/07/2023 06/07/2023 06/22/2023 3:06 AM MAT GAUGER COVID: Recovered Comment:Added based on recent COVID infection. 06/22/2023 06/22/2023 09/20/2023 3:05 AM C DT COVID: Suspected 07/24/2023 07/24/2023 07/24/2023 3:53 PM MAT GAUGER Diarrhea 07/30/2023 07/30/2023 08/13/2023 3:05 AM MAT GAUGER COVID: Suspected 08/30/2023 08/30/2023 08/30/2023 4:52 PM MAT GAUGER COVID: Suspected 10/12/2023 10/12/2023 10/12/2023 7:57 PM CDT Rhino/Enterovirus 10/12/2023 10/12/2023 10/26/2023 3:05 AM CDT COVID: Suspected 07/10/2024 07/10/2024 07/10/2024 4:53 PM MAT GAUGER COVID: Suspected Comment:07/16/2024 IP Review: no outstanding test, last RPP negative. Mary Tiwari, RN 07/16/2024 07/16/2024 10:51 AM MAT GAUGER COVID19 Comment:07/16/2024 IP Review: added by CLAUDIO DONNELLY negative. Mary Tiwari RN 07/16/2024 07/16/2024 07/16/2024 10:51 AM MAT GAUGER MRSA Comment:nasalMRSA Isolation Group Home 09/03/24 07/16/2024 08/15/2024 09/03/2024 6:[address] C. difficile suspected 07/19/2024 07/19/202407/19 2:34 PM MAT GAUGER COVID: Suspected 07/23/2024 07/23/2024 07/23/2024 11:28 PM MAT GAUGER C. difficile suspected 07/23/2024 07/24/202407/24 10:31 AM MAT GAUGER Norovirus suspected 07/23/2024 07/24/2024 07/24/19 9:37 AM MAT GAUGER VRE Comment:Contact Precautions (gown and gloves) - not eligible for IP review until 6 months after positive culture - Jerod QURESHI, CONY 10/01/24 07/24/2024 09/20/2024 03/19/2025 7:26 PM C DT COVID: Suspected 08/09/2024 08/09/2024 08/09/2024 9:40 AM MAT GAUGER Influenza, adult Comment:08/26/2024 IP Review: pt afebrile but on antipyretics. Needs 24 hours off antipyretics and symptoms significantly improved/resolved in order for isolation to be discontinued. Mary Tiwari RN 08/15/2024 08/15/2024 08/29/2024 3:06 AM MAT GAUGER Coronavirus, droplet 08/15/2024 08/15/2024 025 3:06 AM MAT GAUGER C. difficile suspected 09/19/2024 09/19/202409/20 3:05 AM [...] documented as of this encounter Care Teams Guncotton Packer Relationship Specialty Start Date End Date Kenton Ricks MD PCP - General 08/14/16 Pebbles Nelson MD Referring Physician Cardiology 02/07/19 Aylin Russ MD [address] [place] [address] Referring Physician Pulmonary Disease 02/07/19 Maricruz Ramirez, CASINO FLOOR PERSON [address] [place] [address] Nurse Practitioner Cardiovascular Disease 09/25/21 Joanne Lopez, CONY Registered Nurse Pulmonary Disease 08/24/22 Leatha Cristina RMA Surgical Prehabilitation and Readiness (SPAR) Coordinator 09/01/22 01/02/23 Ben Chahal MD PhD 10 [facility] # 2 [place] [address] Medical Oncologist/Technician'S Helper Medical Oncology 10/05/22 Chace Oliva MD [address] [facility] [address] [place] [address] Consulting Physician Infectious Diseases 12/22/2204/01 Giovanna Alexis MD [address] [place] [address] Radiation Oncologist Radiation Oncology 03/09/23 Taisha Suarez, transportation economics teacher Prehabilitation and Readiness (SPAR) Coordinator General Surgery 03/20/23 04/10/23 Sandra Ma MD [address] DIV IM MEDICAL ONCOLOGY, [address], 7B, [address] [place] [address] Consulting Physician Medical Oncology 04/25/23 05/09/23 Abby Higgins MD PhD [address] DIV IM MEDICAL ONCOLOGY, [address]A, 7B, [address] [place] [address] Medical Oncologist/Technician'S Helper Medical Oncology 05/10/23 Adrian Martinez MD [address] [facility] DIV SURG TRANSPLANT, [address] [place] [address] Surgical Oncologist Surgical Oncology 05/28/23 Vera Pérez PA [address] [place] [id number] [place] [address] Physician Gang Leader Colon and Rectal Surgery 09/13/23 Jim Frausto MD [address] [facility] [phone] [place] [address] Surgeon Colon and Rectal Surgery 11/21/23 Анна Robert, RN [address] [facility] [address] [place] [address] SHOP Outpatient Airport Traffic Controller 09/29/24 10/01/24 documented as of this encounter
--- OUTSIDE RECORDS SUMMARY | 2025-04-07 21:12 | XMS_ITS | Clinical Summary ---
Author Organization [facility] Address [address] [place] [address] Phone Care Team Providers Care Digital Forensics Investigator Name Role Phone Kenton Ricks MD Primary Care Provider Allergies Active Allergy Reactions Criticality Noted Date [...] ACEI to ARB. 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 Acute on [...] Comments Blood Pressure 118/68 05/24/2022 9:24 AM CELL CLEANER Pulse - - Temperature 35.7 C (96.3 F) 05/24/2022 9:24 AM CELL CLEANER Respiratory Rate 18 05/24/2022 9:24 AM CELL CLEANER Oxygen Saturation - - Inhaled Oxygen Concentration - - Weight 126 kg (278 lb) 05/24/2022 9:24 AM CELL CLEANER Height 172.7 cm (5' 8) 05/24/2022 9:24 AM CELL CLEANER Body Mass Index 42.27 05/24/2022 9:24 AM CELL CLEANER Plan of Treatment Health Maintenance Due Date Last Done Comments Pneumococcal PPSV23/PCV13 65 + Years / Low and Medium Risk (1 of 2 - PCV) 2005 Influenza Vaccine (#1) 2025 , 04/01/2017, 06/14/2016 Insurance [employer] MEDICARE ADVANTAGE Care Teams Digital Forensics Investigator Relationship Specialty Start Date End Date Kenton Ricks MD [address] [place] [address] PCP - General Family Medicine 02/16/22
--- OUTSIDE RECORDS SUMMARY | 2025-04-07 21:12 | XMS_ITS | Encounter Summary ---
Author Organization [facility] Address [address] [place] [address] Phone Care Team Providers Care Sheriff Deputy Name Role Phone Kenton Ricks MD Primary Care Provider + [phone] Kenton Ricks MD Primary Care Provider + [phone] Pebbles Nelson MD Unavailable [phone] Aylin Russ MD Unavailable [phone] Maricruz Ramirez NP Unavailable [phone] Joanne Lopez RN Unavailable Padmini Leatha Carter Unavailable Unavailable Ben Chahal MD PhD Unavailable [phone] Chace Oliva MD Unavailable [phone] Giovanna Alexis MD Unavailable Taisha Suarez RN Unavailable Unavaila Sandra Aguirre MD Unavailable +[phone] Abby Higgins MD PhD Unavailable + Adrian Martinez MD Unavailable Vera Pérez Unavailable [phone] Jim Frausto MD Unavailable +[phone] Анна Robert RN Unavailable [phone] Encounter Details Date Type Department Care Team (Late st Contact Info) Description 05/19/2016 Orders Only [facility]INCONV Provider, MD Max [address] [place] [address] Social History Tobacco Use Types Packs/Day Years Used Date Smoking Tobacco: Never Assessed Sex and Gender Information Value Date Recorded Sex Assigned at Not on file Legal Sex Male 12:58 AM STEAM TURBINE OPERATOR Gender Identity Male 11/11/2018 10:31 AM CDT Sexual Orientation Straight 06/09/2019 5: 34 PM STEAM TURBINE OPERATOR documented as of this encounter Plan [...] COVID: Suspected 06/07/2023 06/07/2023 06/07/2023 12:46 PM STEAM TURBINE OPERATOR COVID19 06/07/2023 06/07/2023 06/22/2023 3:06 AM STEAM TURBINE OPERATOR COVID: Recovered Comment:Added based on recent COVID infection. 06/22/2023 06/22/2023 09/20/2023 3:05 AM C DT COVID: Suspected 07/24/2023 07/24/2023 07/24/2023 3:53 PM STEAM TURBINE OPERATOR Diarrhea 07/30/2023 07/30/2023 08/13/2023 3:05 AM STEAM TURBINE OPERATOR COVID: Suspected 08/30/2023 08/30/2023 08/30/2023 4:52 PM STEAM TURBINE OPERATOR COVID: Suspected 10/12/2023 10/12/2023 10/12/2023 7:57 PM CDT Rhino/Enterovirus 10/12/2023 10/12/2023 10/26/2023 3:05 AM CDT COVID: Suspected 07/10/2024 07/10/2024 07/10/2024 4:53 PM STEAM TURBINE OPERATOR COVID: Suspected Comment:07/16/2024 IP Review: no outstanding test, last RPP negative. Mary Tiwari RN 07/16/2024 07/16/2024 10:51 AM STEAM TURBINE OPERATOR COVID19 Comment:07/16/2024 IP Review: added by RN, RPP negative. Mary Tiwari RN 07/16/2024 07/16/2024 07/16/2024 10:51 AM STEAM TURBINE OPERATOR MRSA Comment:nasalMRSA Isolation Fdc 09/03/24 07/16/2024 08/15/2024 09/03/2024 6:[address] C. difficile suspected 07/19/2024 07/19/202407/19 2:34 PM STEAM TURBINE OPERATOR COVID: Suspected 07/23/2024 07/23/2024 07/23/2024 11:28 PM STEAM TURBINE OPERATOR C. difficile suspected 07/23/2024 07/24/202407/24 10:31 AM STEAM TURBINE OPERATOR Norovirus suspected 07/23/2024 07/24/2024 07/24/19 9:37 AM STEAM TURBINE OPERATOR VRE Comment:Contact Precautions (gown and gloves) - not eligible for IP review until 6 months after positive culture - Jerod LEEN, RN 10/01/24 07/24/2024 09/20/2024 03/19/2025 7:26 PM C DT COVID: Suspected 08/09/2024 08/09/2024 08/09/2024 9:40 AM STEAM TURBINE OPERATOR Influenza, adult Comment:08/26/2024 IP Review: pt afebrile but on antipyretics. Needs 24 hours off antipyretics and symptoms significantly improved/resolved in order for isolation to be discontinued. Mary Tiwari, CONY 08/15/2024 08/15/2024 08/29/2024 3:06 AM STEAM TURBINE OPERATOR Coronavirus, droplet 08/15/2024 08/15/2024 025 3:06 AM STEAM TURBINE OPERATOR C. difficile suspected 09/19/2024 09/19/202409/20 3:05 [...] documented as of this encounter Care Teams Sheriff Deputy Relationship Specialty Start Date End Date Kenton Ricks MD PCP - General 08/14/16 Kenton Ricks MD PCP - General 09/17/08 08/13/16 Pebbles Nelson MD Referring Physician Cardiology 02/07/19 Aylin Russ MD [address] [place] [address] Referring Physician Pulmonary Disease 02/07/19 Maricruz Ramirez NP [address] [place] [address] Nurse Practitioner Cardiovascular Disease 09/25/21 Joanne Lopez, CONY Registered Nurse Pulmonary Disease 08/24/22 Leatha Cristina RMA Surgical Prehabilitation and Readiness (SPAR) Coordinator 09/01/22 01/02/23 Ben Chahal MD PhD 10 [facility] # 2 [place] [address] Medical Oncologist/Mine Analyst Medical Oncology 10/05/22 Chace Oliva MD [address] [place] [address] Consulting Physician Infectious Diseases 12/22/2204/01 Giovanna Alexis MD [address] [facility] # LL LL [address] [place] [address] Radiation Oncologist Radiation Oncology 03/09/23 Taisha Suarez, pc network technician Prehabilitation and Readiness (SPAR) Coordinator General Surgery 03/20/23 04/10/23 Sandra Ma MD [address] DIV IM MEDICAL ONCOLOGY, [address], 7B, [address] [place] [address] Consulting Physician Medical Oncology 04/25/23 05/09/23 Abby Higgins MD PhD [address] DIV IM MEDICAL ONCOLOGY, [address], 7B, [address] [place] [address] Medical Oncologist/Mine Analyst Medical Oncology 05/10/23 Adrian Martinez MD [address] DIV SURG TRANSPLANT, [address] [place] [address] Surgical Oncologist Surgical Oncology 05/28/23 Vera Préez PA [address] [place] [id number] [place] [address] Physician Women'S Lacrosse Coach Colon and Rectal Surgery 09/13/23 Jim Frausto MD [address] [facility] [phone] [place] [address] Surgeon Colon and Rectal Surgery 11/21/23 Анна Robert RN [address] [place] [address] SHOP Outpatient Laser Engraver 09/29/24 10/01/24 documented as of this encounter
--- OUTSIDE RECORDS SUMMARY | 2025-04-07 21:12 | XMS_ITS | Encounter Summary ---
Author Organization [facility] Address [address] [place] [address] Care Team Providers Care Lump Machine Operator Name Role Phone Kenton Ricks MD Primary Care Provider + [phone] Pebbles Nelson MD Unavailable [phone] Aylin Russ MD Unavailable [phone] aMricruz Ramirez NP Unavailable [phone] Joanne Lopez RN Unavailable Padmini Leatha Carter Unavailable Unavailable Ben Chahal MD PhD Unavailable [phone] Chace Oliva MD Unavailable +[phone] Giovanna Alexis MD Unavailable Taisha Suarez RN Unavailable Unavaila Sandra Aguirre MD Unavailable [phone] Abby Higgins MD PhD Unavailable + Adrian Martinez MD Unavailable [phone] Vera Pérez Unavailable Jim Frausto MD Unavailable Анна Robert RN Unavailable [phone] Encounter Details Date Type Department Care Team (Late st Contact Info) Description 08/12/2020 Telephone [facility] Imaging [address] [address] Hallie Whitaker, RT Social History Tobacco Use Types Packs/Day Years Used Date Smoking Tobacco: Former Smokeless Tobacco: Never Alcohol Use Standard Drinks/Week Comments Yes 0 (1 standard drink = 0.6 oz pur e alcohol) Occassional Sex and Gender Information Value Date Recorded Sex Assigned at Not on file Legal Sex Male 12:58 AM PRODUCTION CLERK Gender Identity Male 11/11/2018 10:31 AM CDT Sexual Orientation Straight 06/09/2019 5: 34 PM PRODUCTION CLERK documented as of this encounter Plan [...] Suspected 06/07/2023 06/07/2023 06/07/2023 12:46 PM PRODUCTION CLERK COVID19 06/07/2023 06/07/2023 06/22/2023 3:06 AM PRODUCTION CLERK COVID: Recovered Comment:Added based on recent COVID infection. 06/22/2023 06/22/2023 09/20/2023 3:05 AM C DT COVID: Suspected 07/24/2023 07/24/2023 07/24/2023 3:53 PM PRODUCTION CLERK Diarrhea 07/30/2023 07/30/2023 08/13/2023 3:05 AM PRODUCTION CLERK COVID: Suspected 08/30/2023 08/30/2023 08/30/2023 4:52 PM PRODUCTION CLERK COVID: Suspected 10/12/2023 10/12/2023 10/12/2023 7:57 PM CDT Rhino/Enterovirus 10/12/2023 10/12/2023 10/26/2023 3:05 AM CDT COVID: Suspected 07/10/2024 07/10/2024 07/10/2024 4:53 PM PRODUCTION CLERK COVID: Suspected Comment:07/16/2024 IP Review: no outstanding test, last RPP negative. Mary Tiwari RN 07/16/2024 07/16/2024 10:51 AM PRODUCTION CLERK COVID19 Comment:07/16/2024 IP Review: added by RN, RPP negative. Mary Tiwari RN 07/16/2024 07/16/2024 07/16/2024 10:51 AM PRODUCTION CLERK MRSA Comment:nasalMRSA Isolation Longterm 09/03/24 07/16/2024 08/15/2024 09/03/2024 6:[address] C. difficile suspected 07/19/2024 07/19/202407/19 2:34 PM PRODUCTION CLERK COVID: Suspected 07/23/2024 07/23/2024 07/23/2024 11:28 PM PRODUCTION CLERK C. difficile suspected 07/23/2024 07/24/202407/24 10:31 AM PRODUCTION CLERK Norovirus suspected 07/23/2024 07/24/2024 07/24/19 9:37 AM PRODUCTION CLERK VRE Comment:Contact Precautions (gown and gloves) - not eligible for IP review until 6 months after positive culture - Jerod QURESHI, CONY 10/01/24 07/24/2024 09/20/2024 03/19/2025 7:26 PM C DT COVID: Suspected 08/09/2024 08/09/2024 08/09/2024 9:40 AM PRODUCTION CLERK Influenza, adult Comment:08/26/2024 IP Review: pt afebrile but on antipyretics. Needs 24 hours off antipyretics and symptoms significantly improved/resolved in order for isolation to be discontinued. Mary Tiwari RN 08/15/2024 08/15/2024 08/29/2024 3:06 AM PRODUCTION CLERK Coronavirus, droplet 08/15/2024 08/15/2024 025 3:06 AM PRODUCTION CLERK C. difficile suspected 09/19/2024 09/19/202409/20 3:05 [...] documented as of this encounter Care Teams Lump Machine Operator Relationship Specialty Start Date End Date Kenton Ricks MD PCP - General 08/14/16 Pebbles Nelson MD Referring Physician Cardiology 02/07/19 Aylin Russ MD [address] [facility] [address] [place] [address] Referring Physician Pulmonary Disease 02/07/19 Maricruz Ramirez COMMERCIAL STRIPPER [address] [place] [address] Nurse Practitioner Cardiovascular Disease 09/25/21 Joanne Lpoez, RN Registered Nurse Pulmonary Disease 08/24/22 Leatha Cristina RMA Surgical Prehabilitation and Readiness (SPAR) Coordinator 09/01/22 01/02/23 Ben Chahal MD PhD [address] [facility] # 2 DIV [place] [address] Medical Oncologist/Geoduck Diver Medical Oncology 10/05/22 Chace Oliva MD [address] [place] [address] Consulting Physician Infectious Diseases 12/22/2204/01 Giovanna Alexis MD [address] LL [address] [place] [address] Radiation Oncologist Radiation Oncology 03/09/23 Taisha Suarez, home office claim specialist Prehabilitation and Readiness (SPAR) Coordinator General Surgery 03/20/23 04/10/23 Sandra Ma MD [address] DIV IM MEDICAL ONCOLOGY, [facility] 7A, 7B, 7C [place] [address] Consulting Physician Medical Oncology 04/25/23 05/09/23 Abby Higgins MD PhD [address] DIV IM MEDICAL ONCOLOGY, [facility] 7A, 7B, [address]C [place] [address] Medical Oncologist/Geoduck Diver Medical Oncology 05/10/23 Adrian Martinez MD [address] DIV SURG TRANSPLANT, [address] [place] [address] Surgical Oncologist Surgical Oncology 05/28/23 Vera Pérez PA [address] [place] [id number] [place] [address] Physician Vp Organizational Development Colon and Rectal Surgery 09/13/23 Jim Frausto MD [address] [facility] [phone] [place] [address] Surgeon Colon and Rectal Surgery 11/21/23 Анна Robert, RN [address] [facility] [address] [place] [address] SHOP Outpatient Principal Scientist 09/29/24 10/01/24 documented as of this encounter
--- OUTSIDE RECORDS SUMMARY | 2025-04-07 21:12 | XMS_ITS | Encounter Summary ---
Author Organization [facility] Address [address] [place] [address] Phone Care Team Providers Care Body Trimmer Upholsterer Name Role Phone Kenton Ricks MD Primary Care Provider + [phone] Kenton Ricks MD Primary Care Provider + [phone] Pebbles Nelson MD Unavailable [phone] Aylin Russ MD Unavailable +[phone] Maricruz Ramirez NP Unavailable [phone] Joanne Lopez RN Unavailable Padmini Leatha Carter Unavailable Unavailable Ben Chahal MD PhD Unavailable [phone] Chace Oliva MD Unavailable [phone] Giovanna Alexis MD Unavailable Taisha Suarez RN Unavailable Unavaila Sandra Aguirre MD Unavailable +[phone] Abby Higgins MD PhD Unavailable + Adrian Martinez MD Unavailable Vera Pérez Unavailable Jim Frausto MD Unavailable Анна Robert RN Unavailable [phone] Encounter Details Date Type Department Care Team (Late st Contact Info) Description 06/02/2016 Orders Only [facility] Provider, MD Max [address] [place] [address] Social History Tobacco Use Types Packs/Day Years Used Date Smoking Tobacco: Never Assessed Sex and Gender Information Value Date Recorded Sex Assigned at Not on file Legal Sex Male 12:58 AM SUPERCALENDER OPERATOR HELPER Gender Identity Male 11/11/2018 10:31 AM CDT Sexual Orientation Straight 06/09/2019 5: 34 PM SUPERCALENDER OPERATOR HELPER documented as of this encounter Plan [...] COVID: Suspected 06/07/2023 06/07/2023 06/07/2023 12:46 PM SUPERCALENDER OPERATOR HELPER COVID19 06/07/2023 06/07/2023 06/22/2023 3:06 AM SUPERCALENDER OPERATOR HELPER COVID: Recovered Comment:Added based on recent COVID infection. 06/22/2023 06/22/2023 09/20/2023 3:05 AM C DT COVID: Suspected 07/24/2023 07/24/2023 07/24/2023 3:53 PM SUPERCALENDER OPERATOR HELPER Diarrhea 07/30/2023 07/30/2023 08/13/2023 3:05 AM SUPERCALENDER OPERATOR HELPER COVID: Suspected 08/30/2023 08/30/2023 08/30/2023 4:52 PM SUPERCALENDER OPERATOR HELPER COVID: Suspected 10/12/2023 10/12/2023 10/12/2023 7:57 PM CDT Rhino/Enterovirus 10/12/2023 10/12/2023 10/26/2023 3:05 AM CDT COVID: Suspected 07/10/2024 07/10/2024 07/10/2024 4:53 PM SUPERCALENDER OPERATOR HELPER COVID: Suspected Comment:07/16/2024 IP Review: no outstanding test, last RPP negative. Mary Tiwari RN 07/16/2024 07/16/2024 10:51 AM SUPERCALENDER OPERATOR HELPER COVID19 Comment:07/16/2024 IP Review: added by RN, RPP negative. Mary Tiwari RN 07/16/2024 07/16/2024 07/16/2024 10:51 AM SUPERCALENDER OPERATOR HELPER MRSA Comment:nasalMRSA Isolation Longterm 09/03/24 07/16/2024 08/15/2024 09/03/2024 6:[address] C. difficile suspected 07/19/2024 07/19/202407/19 2:34 PM SUPERCALENDER OPERATOR HELPER COVID: Suspected 07/23/2024 07/23/2024 07/23/2024 11:28 PM SUPERCALENDER OPERATOR HELPER C. difficile suspected 07/23/2024 07/24/202407/24 10:31 AM SUPERCALENDER OPERATOR HELPER Norovirus suspected 07/23/2024 07/24/2024 07/24/19 9:37 AM SUPERCALENDER OPERATOR HELPER VRE Comment:Contact Precautions (gown and gloves) - not eligible for IP review until 6 months after positive culture - Jerod QURESHI, [place] 10/01/24 07/24/2024 09/20/2024 03/19/2025 7:26 PM C DT COVID: Suspected 08/09/2024 08/09/2024 08/09/2024 9:40 AM SUPERCALENDER OPERATOR HELPER Influenza, adult Comment:08/26/2024 IP Review: pt afebrile but on antipyretics. Needs 24 hours off antipyretics and symptoms significantly improved/resolved in order for isolation to be discontinued. Mary Tiwari RN 08/15/2024 08/15/2024 08/29/2024 3:06 AM SUPERCALENDER OPERATOR HELPER Coronavirus, droplet 08/15/2024 08/15/202408/29/ 025 3:06 AM SUPERCALENDER OPERATOR HELPER C. difficile suspected 09/19/2024 09/19/202409/20 3:05 [...] documented as of this encounter Care Teams Body Trimmer Upholsterer Relationship Specialty Start Date End Date Kenton Ricks MD PCP - General 08/14/16 Kenton Ricks MD PCP - General 09/17/08 08/13/16 Pebbles Nelson MD Referring Physician Cardiology 02/07/19 Aylin Russ MD [address] [facility] [address] [place] [address] Referring Physician Pulmonary Disease 02/07/19 Maricruz Ramirez NP [address] [facility] [address] [place] [address] Nurse Practitioner Cardiovascular Disease 09/25/21 Joanne Lopez, [place] Registered Nurse Pulmonary Disease 08/24/22 Leatha Cristina RMA Surgical Prehabilitation and Readiness (SPAR) Coordinator 09/01/22 01/02/23 Ben Chahal MD PhD [address] [facility] [address] [place] [address] Medical Oncologist/Predatory Animal Trapper Medical Oncology 10/05/22 Chace Oliva MD [address] [facility] [address] [place] [address] Consulting Physician Infectious Diseases 12/22/2204/01 Giovanna Alexis MD [address] [facility] [address] [place] [address] Radiation Oncologist Radiation Oncology 03/09/23 Taisha Suarez, senior functional analyst Prehabilitation and Readiness (SPAR) Coordinator General Surgery 03/20/23 04/10/23 Sandra Ma MD [address] [facility] IM MEDICAL ONCOLOGY, [address]A, 7B, [address]C [place] [address] Consulting Physician Medical Oncology 04/25/23 05/09/23 Abby Higgins MD PhD [address] DIV IM MEDICAL ONCOLOGY, [address] 7A, 7B, [address] [place] [address] Medical Oncologist/Predatory Animal Trapper Medical Oncology 05/10/23 Adrian Martinez MD [address] DIV SURG TRANSPLANT, [facility] [address] [place] [address] Surgical Oncologist Surgical Oncology 05/28/23 Vera Pérez PA [address] [place] [id number] [place] [address] Physician Assistant Surveyor Colon and Rectal Surgery 09/13/23 Jim Frausto MD [address] [facility] [phone] [place] [address] Surgeon Colon and Rectal Surgery 11/21/23 Анна Robert, RN [address] [facility] [address] [place] [address] SHOP Outpatient Awning Craftsman 09/29/24 10/01/24 documented as of this encounter
--- OUTSIDE RECORDS SUMMARY | 2025-04-07 21:12 | XMS_ITS | Encounter Summary ---
Author Organization [facility] Address [address] [place] [address] Phone Care Team Providers Care Test Pilot Name Role Phone Kenton Ricks MD Primary Care Provider + [phone] Pebbles Nelson MD Unavailable [phone] Aylin Russ MD Unavailable [phone] Maricruz Ramirez NP Unavailable [phone] Joanne Lopez RN Unavailable Padmini Leatha Carter Unavailable Unavailable Ben Chahal MD PhD Unavailable [phone] Chace Oliva MD Unavailable [phone] Giovanna Alexis MD Unavailable Taisha Suarez RN Unavailable Unavaila Sandra Aguirre MD Unavailable +[phone] Abby Higgins MD PhD Unavailable + Adrian Martinez MD Unavailable [phone] Vera Pérez Unavailable Jim Frausto MD Unavailable [phone] Анна Robert RN Unavailable [phone] Encounter Details Date Type Department Care Team [...] on file Legal Sex Male 12:58 AM ACCOUNTING TUTOR Gender Identity Male 11/11/2018 10:31 AM CDT Sexual Orientation Straight 06/09/2019 5: 34 PM ACCOUNTING TUTOR documented as of this encounter Plan of [...] COVID: Suspected 06/07/2023 06/07/2023 06/07/2023 12:46 PM ACCOUNTING TUTOR COVID19 06/07/2023 06/07/2023 06/22/2023 3:06 AM ACCOUNTING TUTOR COVID: Recovered Comment:Added based on recent COVID infection. 06/22/2023 06/22/2023 09/20/2023 3:05 AM C DT COVID: Suspected 07/24/2023 07/24/2023 07/24/2023 3:53 PM ACCOUNTING TUTOR Diarrhea 07/30/2023 07/30/2023 08/13/2023 3:05 AM ACCOUNTING TUTOR COVID: Suspected 08/30/2023 08/30/2023 08/30/2023 4:52 PM ACCOUNTING TUTOR COVID: Suspected 10/12/2023 10/12/2023 10/12/2023 7:57 PM CDT Rhino/Enterovirus 10/12/2023 10/12/2023 10/26/2023 3:05 AM CDT COVID: Suspected 07/10/2024 07/10/2024 07/10/2024 4:53 PM ACCOUNTING TUTOR COVID: Suspected Comment:07/16/2024 IP Review: no outstanding test, last RPP negative. Mary Tiwari RN 07/16/2024 07/16/2024 10:51 AM ACCOUNTING TUTOR COVID19 Comment:07/16/2024 IP Review: added by RN, RPP negative. Mary Tiwari RN 07/16/2024 07/16/2024 07/16/2024 10:51 AM ACCOUNTING TUTOR MRSA Comment:nasalMRSA Isolation Half-Way 09/03/24 07/16/2024 08/15/2024 09/03/2024 6:[address] C. difficile suspected 07/19/2024 07/19/202407/19 2:34 PM ACCOUNTING TUTOR COVID: Suspected 07/23/2024 07/23/2024 07/23/2024 11:28 PM ACCOUNTING TUTOR C. difficile suspected 07/23/2024 07/24/202407/24 10:31 AM ACCOUNTING TUTOR Norovirus suspected 07/23/2024 07/24/2024 07/24/19 9:37 AM ACCOUNTING TUTOR VRE Comment:Contact Precautions (gown and gloves) - not eligible for IP review until 6 months after positive culture - Jerod QURESHI, [place] 10/01/24 07/24/2024 09/20/2024 03/19/2025 7:26 PM C DT COVID: Suspected 08/09/2024 08/09/2024 08/09/2024 9:40 AM ACCOUNTING TUTOR Influenza, adult Comment:08/26/2024 IP Review: pt afebrile but on antipyretics. Needs 24 hours off antipyretics and symptoms significantly improved/resolved in order for isolation to be discontinued. Mary Tiwari RN 08/15/2024 08/15/2024 08/29/2024 3:06 AM ACCOUNTING TUTOR Coronavirus, droplet 08/15/2024 08/15/2024 025 3:06 AM ACCOUNTING TUTOR C. difficile suspected 09/19/2024 09/19/202409/20 3:05 AM [...] documented as of this encounter Care Teams Test Pilot Relationship Specialty Start Date End Date Kenton Ricks MD PCP - General 08/14/16 Pebbles Nelson MD Referring Physician Cardiology 02/07/19 Aylin Russ MD [address] [place] [address] Referring Physician Pulmonary Disease 02/07/19 Maricruz Ramirez NP [address] [place] [address] Nurse Practitioner Cardiovascular Disease 09/25/21 Joanne Lopez, [place] Registered Nurse Pulmonary Disease 08/24/22 Leatha Cristina RMA Surgical Prehabilitation and Readiness (SPAR) Coordinator 09/01/22 01/02/23 Ben Chahal MD PhD 10 [facility] [address] 2 [place] [address] Medical Oncologist/Judicial Reporter Medical Oncology 10/05/22 Chace Oliva MD [address] [facility] [address] [place] [address] Consulting Physician Infectious Diseases 12/22/2204/01 Giovanna Alexis MD 49[address] [facility] # LL LL [address] [place] [address] Radiation Oncologist Radiation Oncology 03/09/23 Taisha Suarez, lyric writer Prehabilitation and Readiness (SPAR) Coordinator General Surgery 03/20/23 04/10/23 Sandra Ma MD [address] [facility] [address] DIV MEDICAL ONCOLOGY, [address]BDI 7A, 7B, [address] [place] [address] Consulting Physician Medical Oncology 04/25/23 05/09/23 Abby Higgins MD PhD [address] [facility] [address] DIV IM MEDICAL ONCOLOGY, ABDI 7A, 7B, [address] [place] [address] Medical Oncologist/Judicial Reporter Medical Oncology 05/10/23 Adrian Martinez MD [address] [facility] [address] DIV SURG TRANSPLANT, [address] [place] [address] Surgical Oncologist Surgical Oncology 05/28/23 Vera Pérez PA [address] [place] [phone] [place] [address] Physician Lathe Setup Operator Colon and Rectal Surgery 09/13/23 Jim Frausto MD [address] [facility] [phone] [place] [address] Surgeon Colon and Rectal Surgery 11/21/23 Анна Robert, RN [address] [facility] [address] [place] [address] SHOP Outpatient Weed Sprayer 09/29/24 10/01/24 documented as of this encounter
--- OUTSIDE RECORDS SUMMARY | 2025-04-07 21:12 | XMS_ITS | Clinical Summary ---
Author Organization [facility] Address [address] [place], [place] [address] Care Team Providers Care Salesperson Furs Name Role Phone Ivonne Alcantar PA-C Primary Care Provider [phone] Social History Tobacco Use Types Packs/Day Years [...] complete this topic Insurance MEDICAID Care Teams Salesperson Furs Relationship Specialty Start Date End Date Ivonne Alcantar PA-C [address] [place] [address] PCP - General BINDING DYER 12/06/21
--- OUTSIDE RECORDS SUMMARY | 2025-04-07 21:12 | XMS_ITS | Encounter Summary ---
Author Organization [facility] Address [address] [place] [address] Phone Care Team Providers Care Rn Vascular Name Role Phone Kenton Ricks MD Primary Care Provider + [phone] Pebbles Nelson MD Unavailable [phone] Aylin Russ MD Unavailable [phone] Maricruz Ramirez NP Unavailable [phone] Joanne Lopez RN Unavailable Padmini Leatha Carter Unavailable Unavailable Ben Chahal MD PhD Unavailable [phone] Chace Oliva MD Unavailable [phone] Giovanna Alexis MD Unavailable Taisha Suarez RN Unavailable Unavaila Sandra Aguirre MD Unavailable +[phone] Abby Higgins MD PhD Unavailable + Adrian Martinez MD Unavailable Vera Pérez Unavailable Jim Frausto MD Unavailable Анна Robert RN Unavailable Encounter Details Date Type Department Care Team (Late st Contact Info) Description 08/10/2020 Telephone [facility] Cardiology [address] [facility] Medicine 8th [place] [address] [place] [address] Pebbles Nelson MD [address] [facility] [address] [place] [address] Social History Tobacco Use Types Packs/Day Years Used Date Smoking Tobacco: Former Smokeless Tobacco: Never Alcohol Use Standard Drinks/Week Comments Yes 0 (1 standard drink = 0.6 oz pur e alcohol) Occassional Sex and Gender Information Value Date Recorded Sex Assigned at Not on file Legal Sex Male 12:58 AM PHYSICIAN/ALLERGY/IMMUNOLOGY Gender Identity Male 11/11/2018 10:31 AM CDT Sexual Orientation Straight 06/09/2019 5: 34 PM PHYSICIAN/ALLERGY/IMMUNOLOGY documented as of this encounter Plan of [...] COVID: Suspected 06/07/2023 06/07/2023 06/07/2023 12:46 PM PHYSICIAN/ALLERGY/IMMUNOLOGY COVID19 06/07/2023 06/07/2023 06/22/2023 3:06 AM PHYSICIAN/ALLERGY/IMMUNOLOGY COVID: Recovered Comment:Added based on recent COVID infection. 06/22/2023 06/22/2023 09/20/2023 3:05 AM C DT COVID: Suspected 07/24/2023 07/24/2023 07/24/2023 3:53 PM PHYSICIAN/ALLERGY/IMMUNOLOGY Diarrhea 07/30/2023 07/30/2023 08/13/2023 3:05 AM PHYSICIAN/ALLERGY/IMMUNOLOGY COVID: Suspected 08/30/2023 08/30/2023 08/30/2023 4:52 PM PHYSICIAN/ALLERGY/IMMUNOLOGY COVID: Suspected 10/12/2023 10/12/2023 10/12/2023 7:57 PM CDT Rhino/Enterovirus 10/12/2023 10/12/2023 10/26/2023 3:05 AM CDT COVID: Suspected 07/10/2024 07/10/2024 07/10/2024 4:53 PM PHYSICIAN/ALLERGY/IMMUNOLOGY COVID: Suspected Comment:07/16/2024 IP Review: no outstanding test, last RPP negative. Mary Tiwari RN 07/16/2024 07/16/2024 10:51 AM PHYSICIAN/ALLERGY/IMMUNOLOGY COVID19 Comment:07/16/2024 IP Review: added by RN, RPP negative. Mary Tiwari RN 07/16/2024 07/16/2024 07/16/2024 10:51 AM PHYSICIAN/ALLERGY/IMMUNOLOGY MRSA Comment:nasalMRSA Isolation Residential 09/03/24 07/16/2024 08/15/2024 09/03/2024 6:[address] C. difficile suspected 07/19/2024 07/19/202407/19 2:34 PM PHYSICIAN/ALLERGY/IMMUNOLOGY COVID: Suspected 07/23/2024 07/23/2024 07/23/2024 11:28 PM PHYSICIAN/ALLERGY/IMMUNOLOGY C. difficile suspected 07/23/2024 07/24/202407/24 10:31 AM PHYSICIAN/ALLERGY/IMMUNOLOGY Norovirus suspected 07/23/2024 07/24/2024 07/24/19 9:37 AM PHYSICIAN/ALLERGY/IMMUNOLOGY VRE Comment:Contact Precautions (gown and gloves) - not eligible for IP review until 6 months after positive culture - Jerod QURESHI, [place] 10/01/24 07/24/2024 09/20/2024 03/19/2025 7:26 PM C DT COVID: Suspected 08/09/2024 08/09/2024 08/09/2024 9:40 AM PHYSICIAN/ALLERGY/IMMUNOLOGY Influenza, adult Comment:08/26/2024 IP Review: pt afebrile but on antipyretics. Needs 24 hours off antipyretics and symptoms significantly improved/resolved in order for isolation to be discontinued. Mary Tiwari RN 08/15/2024 08/15/2024 08/29/2024 3:06 AM PHYSICIAN/ALLERGY/IMMUNOLOGY Coronavirus, droplet 08/15/2024 08/15/2024 025 3:06 AM PHYSICIAN/ALLERGY/IMMUNOLOGY C. difficile suspected 09/19/2024 09/19/202409/20 3:05 AM [...] documented as of this encounter Care Teams Rn Vascular Relationship Specialty Start Date End Date Kenton Ricks MD PCP - General 08/14/16 Pebbles Nelson MD Referring Physician Cardiology 02/07/19 Aylin Russ MD [address] [place] [address] Referring Physician Pulmonary Disease 02/07/19 Maricruz Ramirez, [employer]ACH[employer] [address] [place] [address] Nurse Practitioner Cardiovascular Disease 09/25/21 Joanne Lopez, [place] Registered Nurse Pulmonary Disease 08/24/22 Leatha Cristina RMA Surgical Prehabilitation and Readiness (SPAR) Coordinator 09/01/22 01/02/23 Ben Chahal MD PhD 10 [facility] # 2 [place] [address] Medical Oncologist/Server Administrator Medical Oncology 10/05/22 Chace Oliva MD [address] [facility] [address] [place] [address] Consulting Physician Infectious Diseases 12/22/2204/01 Giovanna Alexis MD [address] [place] [address] Radiation Oncologist Radiation Oncology 03/09/23 Taisha Suarez, chess instructor Prehabilitation and Readiness (SPAR) Coordinator General Surgery 03/20/23 04/10/23 Sandra Ma MD [address] DIV IM MEDICAL ONCOLOGY, [address] 7A, 7B, [address] [place] [address] Consulting Physician Medical Oncology 04/25/23 05/09/23 Abby Higgins MD PhD [address] DIV IM MEDICAL ONCOLOGY, [address] 7A, 7B, [address] [place] [address] Medical Oncologist/Server Administrator Medical Oncology 05/10/23 Adrian Martinez MD [address] [facility] DIV SURG TRANSPLANT, [facility] [address] [place] [address] Surgical Oncologist Surgical Oncology 05/28/23 Vera Pérez PA [address] [place] [phone] [place] [address] Physician Mixing Plant Dumper Colon and Rectal Surgery 09/13/23 Jim Frausto MD [address] [facility] [phone] [place] [address] Surgeon Colon and Rectal Surgery 11/21/23 Анна Robert, RN [address] [facility] [address] [place] [address] SHOP Outpatient Powder Press Operator 09/29/24 10/01/24 documented as of this encounter
--- OUTSIDE RECORDS SUMMARY | 2025-04-07 21:13 | XMS_ITS | Encounter Summary ---
Author Organization [employer] Address [address] [place] [address] Care Team Providers Care Professor Computer Science Name Role Phone Kenton Ricks MD Primary Care Provider [phone] Encounter Details Date Type Department Care Team (Latest Contact Info) Description 05/17/2001 Outpatient [facility] Center for [employer] [facility] [address] [facility] [place] [address] Kenyon Montenegro MD [address] [address] HEADACHE (Primary Dx) Social History Tobacco Use Types Packs/Day Years Used Date Smoking Tobacco: Never Assessed Sex and Gender Information Value Date Recorded Sex Assigned at Not on file Legal Sex Male 4:35 AM ANALOG CIRCUIT DESIGNER Gender Identity Not on file Sexual Orientation Not on file documented as of this encounter Plan of Treatment Not on file documented as of this encounter Visit Diagnoses Diagnosis Headache(784.0)- Primary Headache documented in this encounter Care Teams Professor Computer Science Relationship Specialty Start Date End Date Kenton Ricks MD [address] [place] [id number] PCP - General Family Practice 11/15/18 documented as of this encounter
--- OUTSIDE RECORDS SUMMARY | 2025-04-07 21:13 | XMS_ITS | Encounter Summary ---
Author Organization [employer] Address [address] [place] [address] Care Team Providers Care Parcel Post Order Clerk Name Role Phone Kenton Ricks MD Primary Care Provider [phone] Encounter Details Date Type Department Care Team (Latest Contact Info) Description 08/02/2001 Outpatient Historical [facility] Shabbir Villavicencio MD [address] [facility] [address] [place] [address] CONVULSIONS, OTHER (CMS/HCC) (Primary Dx) Social History Tobacco Use Types Packs/Day Years Used Date Smoking Tobacco: Never Assessed Sex and Gender Information Value Date Recorded Sex Assigned at Not on file Legal Sex Male 4:35 AM POT FISHER Gender Identity Not on file Sexual Orientation Not on file documented as of this encounter Plan of Treatment Not on file documented as of this encounter Visit Diagnoses Diagnosis Other convulsions- Primary documented in this encounter Care Teams Parcel Post Order Clerk Relationship Specialty Start Date End Date Kenton Ricks MD [address] [place] [address] PCP - General Family Practice 11/15/18 documented as of this encounter
--- OUTSIDE RECORDS SUMMARY | 2025-04-07 21:13 | XMS_ITS | Encounter Summary ---
Author Organization [facility] Address [address] [place] [address] Phone Care Team Providers Care Camera Prototyping Engineer Name Role Phone Kenton Ricks MD Primary Care Provider + [phone] Kenton Ricks MD Primary Care Provider + [phone] Pebbles Nelson MD Unavailable [phone] Aylin Russ MD Unavailable [phone] Maricruz Ramirez NP Unavailable [phone] Joanne Lopez RN Unavailable Padmini Leatha Carter Unavailable Unavailable Ben Chahal MD PhD Unavailable [phone] Chace Oliva MD Unavailable [phone] Giovanna Alexis MD Unavailable Taisha Suarez RN Unavailable Unavaila Sandra Aguirre MD Unavailable +[phone] Abby Higgins MD PhD Unavailable + Adrian Martinez MD Unavailable Vera Pérez Unavailable [phone] Jim Frausto MD Unavailable Анна Robert RN Unavailable Encounter Details Date Type Department Care Team (Late st Contact Info) Description 09/01/2014 Orders Only [facility] CAR CLINCONV Provider, MD Max [address] [place] [address] Social History Tobacco Use Types Packs/Day Years Used Date Smoking Tobacco: Never Assessed Sex and Gender Information Value Date Recorded Sex Assigned at Not on file Legal Sex Male 12:58 AM CAR BLOCKER Gender Identity Male 11/11/2018 10:31 AM CDT Sexual Orientation Straight 06/09/2019 5: 34 PM CAR BLOCKER documented as of this encounter Plan of [...] COVID: Suspected 06/07/2023 06/07/2023 06/07/2023 12:46 PM CAR BLOCKER COVID19 06/07/2023 06/07/2023 06/22/2023 3:06 AM CAR BLOCKER COVID: Recovered Comment:Added based on recent COVID infection. 06/22/2023 06/22/2023 09/20/2023 3:05 AM C DT COVID: Suspected 07/24/2023 07/24/2023 07/24/2023 3:53 PM CAR BLOCKER Diarrhea 07/30/2023 07/30/2023 08/13/2023 3:05 AM CAR BLOCKER COVID: Suspected 08/30/2023 08/30/2023 08/30/2023 4:52 PM CAR BLOCKER COVID: Suspected 10/12/2023 10/12/2023 10/12/2023 7:57 PM CDT Rhino/Enterovirus 10/12/2023 10/12/2023 10/26/2023 3:05 AM CDT COVID: Suspected 07/10/2024 07/10/2024 07/10/2024 4:53 PM CAR BLOCKER COVID: Suspected Comment:07/16/2024 IP Review: no outstanding test, last RPP negative. Mary Tiwari RN 07/16/2024 07/16/2024 10:51 AM CAR BLOCKER COVID19 Comment:07/16/2024 IP Review: added by RN, RPP negative. Mary Tiwari RN 07/16/2024 07/16/2024 07/16/2024 10:51 AM CAR BLOCKER MRSA Comment:nasalMRSA Isolation Care Home 09/03/24 07/16/2024 08/15/2024 09/03/2024 6:[address] C. difficile suspected 07/19/2024 07/19/202407/19 2:34 PM CAR BLOCKER COVID: Suspected 07/23/2024 07/23/2024 07/23/2024 11:28 PM CAR BLOCKER C. difficile suspected 07/23/2024 07/24/202407/24 10:31 AM CAR BLOCKER Norovirus suspected 07/23/2024 07/24/2024 07/24/19 9:37 AM CAR BLOCKER VRE Comment:Contact Precautions (gown and gloves) - not eligible for IP review until 6 months after positive culture - Jerod UQRESHI, CONY 10/01/24 07/24/2024 09/20/2024 03/19/2025 7:26 PM C DT COVID: Suspected 08/09/2024 08/09/2024 08/09/2024 9:40 AM CAR BLOCKER Influenza, adult Comment:08/26/2024 IP Review: pt afebrile but on antipyretics. Needs 24 hours off antipyretics and symptoms significantly improved/resolved in order for isolation to be discontinued. Mary Tiwari RN 08/15/2024 08/15/2024 08/29/2024 3:06 AM CAR BLOCKER Coronavirus, droplet 08/15/2024 08/15/202408/29/ 025 3:06 AM CAR BLOCKER C. difficile suspected 09/19/2024 09/19/202409/20 3:05 AM [...] documented as of this encounter Care Teams Camera Prototyping Engineer Relationship Specialty Start Date End Date Kenton Ricks MD PCP - General 08/14/16 Kenton Ricks MD PCP - General 09/17/08 08/13/16 Pebbles Nelson MD Referring Physician Cardiology 02/07/19 Aylin Russ MD [address] [facility] [address] [place] [address] Referring Physician Pulmonary Disease 02/07/19 Maricruz Ramirez NP [address] [facility] [address] [place] [address] Nurse Practitioner Cardiovascular Disease 09/25/21 Joanne Lopez, CONY Registered Nurse Pulmonary Disease 08/24/22 Leatha Cirstina RMA Surgical Prehabilitation and Readiness (SPAR) Coordinator 09/01/22 01/02/23 Ben Chahal MD PhD 10 [facility] [address] [place] [address] Medical Oncologist/Roller Printing Supervisor Medical Oncology 10/05/22 Chace Oliva MD [address] [facility] [address] [place] [address] Consulting Physician Infectious Diseases 12/22/2204/01 Giovanna Alexis MD [address] [place] [address] Radiation Oncologist Radiation Oncology 03/09/23 Taisha Suarez, digital communications manager Prehabilitation and Readiness (SPAR) Coordinator General Surgery 03/20/23 04/10/23 Sandra Ma MD [address] DIV IM MEDICAL ONCOLOGY, ABDI 7A, 7B, 7C [place] [address] Consulting Physician Medical Oncology 04/25/23 05/09/23 Abby Higgins MD PhD [address] DIV IM MEDICAL ONCOLOGY, ABDI 7A, 7B, [address]C [place] [address] Medical Oncologist/Roller Printing Supervisor Medical Oncology 05/10/23 Adrian Martinez MD [address] DIV SURG TRANSPLANT, [facility] [address] [place] [address] Surgical Oncologist Surgical Oncology 05/28/23 Vera Pérez PA [address] [place] [id number] [place] [address] Physician Coding Manager Colon and Rectal Surgery 09/13/23 Jim Frausto MD [address] [facility] [phone] [place] [address] Surgeon Colon and Rectal Surgery 11/21/23 Анна Robert, RN [address] [facility] [address] [place] [address] SHOP Outpatient Credit Risk Modeler 09/29/24 10/01/24 documented as of this encounter
--- OUTSIDE RECORDS SUMMARY | 2025-04-07 21:13 | XMS_ITS | Encounter Summary ---
Author Organization [facility] Address [address] [place] [address] Phone Care Team Providers Care General Hardware Salesperson Name Role Phone Kenton Ricks MD Primary Care Provider + [phone] Kenton Ricks MD Primary Care Provider + [phone] Pebbles Nelson MD Unavailable [phone] Aylin Russ MD Unavailable [phone] Maricruz Ramirez NP Unavailable [phone] Joanne Lopez RN Unavailable Padmini Leatha Carter Unavailable Unavailable Ben Chahal MD PhD Unavailable [phone] Chace Oliva MD Unavailable [phone] Giovanna Alexis MD Unavailable Taisha Suarez RN Unavailable Unavaila Sandra Aguirre MD Unavailable [phone] Abby Higgins MD PhD Unavailable + Adrian Martinez MD Unavailable [phone] Vera Pérez Unavailable [phone] Jim Frausto MD Unavailable Анна Robert RN Unavailable [phone] Encounter Details Date Type Department Care Team (Late st Contact Info) Description 05/08/2014 Orders Only [facility] CAR CLINCONV Provider, MD Max [address] [place] [address] Social History Tobacco Use Types Packs/Day Years Used Date Smoking Tobacco: Never Assessed Sex and Gender Information Value Date Recorded Sex Assigned at Not on file Legal Sex Male 12:58 AM AIRCRAFT INSTRUMENT ENGINEER Gender Identity Male 11/11/2018 10:31 AM CDT Sexual Orientation Straight 06/09/2019 5: 34 PM AIRCRAFT INSTRUMENT ENGINEER documented as of this encounter Plan [...] Suspected 06/07/2023 06/07/2023 06/07/2023 12:46 PM AIRCRAFT INSTRUMENT ENGINEER COVID19 06/07/2023 06/07/2023 06/22/2023 3:06 AM AIRCRAFT INSTRUMENT ENGINEER COVID: Recovered Comment:Added based on recent COVID infection. 06/22/2023 06/22/2023 09/20/2023 3:05 AM C DT COVID: Suspected 07/24/2023 07/24/2023 07/24/2023 3:53 PM AIRCRAFT INSTRUMENT ENGINEER Diarrhea 07/30/2023 07/30/2023 08/13/2023 3:05 AM AIRCRAFT INSTRUMENT ENGINEER COVID: Suspected 08/30/2023 08/30/2023 08/30/2023 4:52 PM AIRCRAFT INSTRUMENT ENGINEER COVID: Suspected 10/12/2023 10/12/2023 10/12/2023 7:57 PM CDT Rhino/Enterovirus 10/12/2023 10/12/2023 10/26/2023 3:05 AM CDT COVID: Suspected 07/10/2024 07/10/2024 07/10/2024 4:53 PM AIRCRAFT INSTRUMENT ENGINEER COVID: Suspected Comment:07/16/2024 IP Review: no outstanding test, last RPP negative. Mary Tiwari RN 07/16/2024 07/16/2024 10:51 AM AIRCRAFT INSTRUMENT ENGINEER COVID19 Comment:07/16/2024 IP Review: added by RN, RPP negative. Mary Tiwari RN 07/16/2024 07/16/2024 07/16/2024 10:51 AM AIRCRAFT INSTRUMENT ENGINEER MRSA Comment:nasalMRSA Isolation [facility] 09/03/24 07/16/2024 08/15/2024 09/03/2024 6:[address] C. difficile suspected 07/19/2024 07/19/202407/19 2:34 PM AIRCRAFT INSTRUMENT ENGINEER COVID: Suspected 07/23/2024 07/23/2024 07/23/2024 11:28 PM AIRCRAFT INSTRUMENT ENGINEER C. difficile suspected 07/23/2024 07/24/202407/24 10:31 AM AIRCRAFT INSTRUMENT ENGINEER Norovirus suspected 07/23/2024 07/24/2024 07/24/19 9:37 AM AIRCRAFT INSTRUMENT ENGINEER VRE Comment:Contact Precautions (gown and gloves) - not eligible for IP review until 6 months after positive culture - Jerod QURESHI, CONY 10/01/24 07/24/2024 09/20/2024 03/19/2025 7:26 PM C DT COVID: Suspected 08/09/2024 08/09/2024 08/09/2024 9:40 AM AIRCRAFT INSTRUMENT ENGINEER Influenza, adult Comment:08/26/2024 IP Review: pt afebrile but on antipyretics. Needs 24 hours off antipyretics and symptoms significantly improved/resolved in order for isolation to be discontinued. Mary Tiwari RN 08/15/2024 08/15/2024 08/29/2024 3:06 AM AIRCRAFT INSTRUMENT ENGINEER Coronavirus, droplet 08/15/2024 08/15/202408/29/ 025 3:06 AM AIRCRAFT INSTRUMENT ENGINEER C. difficile suspected 09/19/2024 09/19/202409/20 3:05 [...] documented as of this encounter Care Teams General Hardware Salesperson Relationship Specialty Start Date End Date Kenton Ricks MD PCP - General 08/14/16 Kenton Ricks MD PCP - General 09/17/08 08/13/16 Pebbles Nelson MD Referring Physician Cardiology 02/07/19 Aylin Russ MD [address] [facility] [address] [place] [address] Referring Physician Pulmonary Disease 02/07/19 Maricruz Ramirez NP [address] [facility] [address] [place] [address] Nurse Practitioner Cardiovascular Disease 09/25/21 Joanne Lopez, CONY Registered Nurse Pulmonary Disease 08/24/22 Leatha Cristina RMA Surgical Prehabilitation and Readiness (SPAR) Coordinator 09/01/22 01/02/23 Ben Chahal MD PhD 10 [facility] [address] 2 [place] [address] Medical Oncologist/Uniform Force Captain Medical Oncology 10/05/22 Chace Oliva MD [address] [facility] [address] [place] [address] Consulting Physician Infectious Diseases 12/22/2204/01 Giovanna Alexis MD [address] LL [address] [place] [address] Radiation Oncologist Radiation Oncology 03/09/23 Taisha Suarez, production troubleshooter Prehabilitation and Readiness (SPAR) Coordinator General Surgery 03/20/23 04/10/23 Sandra Ma MD [address] [employer] [facility] DIV IM MEDICAL ONCOLOGY, ABDI 7A, 7B, 7C [place] [address] Consulting Physician Medical Oncology 04/25/23 05/09/23 Abby Higgins MD PhD [address] DIV IM MEDICAL ONCOLOGY, ABDI 7A, 7B, [address]C [place] [address] Medical Oncologist/Uniform Force Captain Medical Oncology 05/10/23 Adrian Martinez MD [address] DIV SURG TRANSPLANT, [facility] [address] [place] [address] Surgical Oncologist Surgical Oncology 05/28/23 Vera Pérez PA [address] [place] [phone] [place] [address] Physician Youth Services Specialist Colon and Rectal Surgery 09/13/23 Jim Frausto MD [address] [facility] [phone] [place] [address] Surgeon Colon and Rectal Surgery 11/21/23 Анна Robert, RN [address] [facility] [address] [place] [address] SHOP Outpatient Safety Risk Lead 09/29/24 10/01/24 documented as of this encounter
--- OUTSIDE RECORDS SUMMARY | 2025-04-07 21:13 | XMS_ITS | Encounter Summary ---
Author Organization [facility] Address [address] [place] [address] Phone Care Team Providers Care Talent Acquisition Lead Name Role Phone Kenton Ricks MD Primary Care Provider + [phone] Kenton Ricks MD Primary Care Provider + [phone] Pebbles Nelson MD Unavailable [phone] Aylin Russ MD Unavailable [phone] Maricruz Ramirez NP Unavailable [phone] Joanne Lopez RN Unavailable Padmini Leatha Carter Unavailable Unavailable Ben Chahal MD PhD Unavailable [phone] Chace Oliva MD Unavailable [phone] Giovanna Alexis MD Unavailable Taisha Suarez RN Unavailable Unavaila Sandra Aguirre MD Unavailable [phone] Abby Higgins MD PhD Unavailable + Adrian Martinez MD Unavailable Vera Pérez Unavailable Jim Frausto MD Unavailable Анна Robert RN Unavailable [phone] Encounter Details Date Type Department Care Team (Late st Contact Info) Description 02/25/2014 Orders Only [facility] CAR CLINCONV Provider, MD Max [address] [place] [address] Social History Tobacco Use Types Packs/Day Years Used Date Smoking Tobacco: Never Assessed Sex and Gender Information Value Date Recorded Sex Assigned at Not on file Legal Sex Male 12:58 AM MACHINE STOPPAGE FREQUENCY CHECKER Gender Identity Male 11/11/2018 10:31 AM CDT Sexual Orientation Straight 06/09/2019 5: 34 PM MACHINE STOPPAGE FREQUENCY CHECKER documented as of this encounter Plan [...] COVID: Suspected 06/07/2023 06/07/2023 06/07/2023 12:46 PM MACHINE STOPPAGE FREQUENCY CHECKER COVID19 06/07/2023 06/07/2023 06/22/2023 3:06 AM MACHINE STOPPAGE FREQUENCY CHECKER COVID: Recovered Comment:Added based on recent COVID infection. 06/22/2023 06/22/2023 09/20/2023 3:05 AM C DT COVID: Suspected 07/24/2023 07/24/2023 07/24/2023 3:53 PM MACHINE STOPPAGE FREQUENCY CHECKER Diarrhea 07/30/2023 07/30/2023 08/13/2023 3:05 AM MACHINE STOPPAGE FREQUENCY CHECKER COVID: Suspected 08/30/2023 08/30/2023 08/30/2023 4:52 PM MACHINE STOPPAGE FREQUENCY CHECKER COVID: Suspected 10/12/2023 10/12/2023 10/12/2023 7:57 PM CDT Rhino/Enterovirus 10/12/2023 10/12/2023 10/26/2023 3:05 AM CDT COVID: Suspected 07/10/2024 07/10/2024 07/10/2024 4:53 PM MACHINE STOPPAGE FREQUENCY CHECKER COVID: Suspected Comment:07/16/2024 IP Review: no outstanding test, last RPP negative. Mary Tiwari RN 07/16/2024 07/16/2024 10:51 AM MACHINE STOPPAGE FREQUENCY CHECKER COVID19 Comment:07/16/2024 IP Review: added by RN, RPP negative. Mary Tiwari RN 07/16/2024 07/16/2024 07/16/2024 10:51 AM MACHINE STOPPAGE FREQUENCY CHECKER MRSA Comment:nasalMRSA Isolation [facility] 09/03/24 07/16/2024 08/15/2024 09/03/2024 6:[address] C. difficile suspected 07/19/2024 07/19/202407/19 2:34 PM MACHINE STOPPAGE FREQUENCY CHECKER COVID: Suspected 07/23/2024 07/23/2024 07/23/2024 11:28 PM MACHINE STOPPAGE FREQUENCY CHECKER C. difficile suspected 07/23/2024 07/24/202407/24 10:31 AM MACHINE STOPPAGE FREQUENCY CHECKER Norovirus suspected 07/23/2024 07/24/2024 07/24/19 9:37 AM MACHINE STOPPAGE FREQUENCY CHECKER VRE Comment:Contact Precautions (gown and gloves) - not eligible for IP review until 6 months after positive culture - Jerod QURESHI, CONY 10/01/24 07/24/2024 09/20/2024 03/19/2025 7:26 PM C DT COVID: Suspected 08/09/2024 08/09/2024 08/09/2024 9:40 AM MACHINE STOPPAGE FREQUENCY CHECKER Influenza, adult Comment:08/26/2024 IP Review: pt afebrile but on antipyretics. Needs 24 hours off antipyretics and symptoms significantly improved/resolved in order for isolation to be discontinued. Mary Tiwari RN 08/15/2024 08/15/2024 08/29/2024 3:06 AM MACHINE STOPPAGE FREQUENCY CHECKER Coronavirus, droplet 08/15/2024 08/15/202408/29/ 025 3:06 AM MACHINE STOPPAGE FREQUENCY CHECKER C. difficile suspected 09/19/2024 09/19/202409/20 3:05 [...] documented as of this encounter Care Teams Talent Acquisition Lead Relationship Specialty Start Date End Date Kenton Ricks MD PCP - General 08/14/16 Kenton Ricks MD PCP - General 09/17/08 08/13/16 Pebbles Nelson MD Referring Physician Cardiology 02/07/19 Aylin Russ MD [address] [facility] [address] [place] [address] Referring Physician Pulmonary Disease 02/07/19 Maricruz Ramirez NP [address] [facility] [address] [place] [address] Nurse Practitioner Cardiovascular Disease 09/25/21 Joanne Lopez, CONY Registered Nurse Pulmonary Disease 08/24/22 Leatha Cristina RMA Surgical Prehabilitation and Readiness (SPAR) Coordinator 09/01/22 01/02/23 Ben Chahal MD PhD 10 [facility] # 2 [place] [address] Medical Oncologist/Field Observer Medical Oncology 10/05/22 Chace Oliva MD [address] [facility] [address] [place] [address] Consulting Physician Infectious Diseases 12/22/2204/01 Giovanna Alexis MD [address] # LL LL [address] [place] [address] Radiation Oncologist Radiation Oncology 03/09/23 Taisha Suarez, chief compressor station engineer Prehabilitation and Readiness (SPAR) Coordinator General Surgery 03/20/23 04/10/23 Sandra Ma MD [address] DIV IM MEDICAL ONCOLOGY, ABDI 7A, 7B, [address]C [place] [address] Consulting Physician Medical Oncology 04/25/23 05/09/23 Abby Higgins MD PhD [address] DIV IM MEDICAL ONCOLOGY, [address]BDI 7A, 7B, [address]C [place] [address] Medical Oncologist/Field Observer Medical Oncology 05/10/23 Adrian Martinez MD [address] DIV SURG TRANSPLANT, [facility] [address] [place] [address] Surgical Oncologist Surgical Oncology 05/28/23 Vera Pérez PA [address] [place] [phone] [place] [address] Physician Cooperative Education Director Colon and Rectal Surgery 09/13/23 Jim Frausto MD [address] [facility] [phone] [place] [address] Surgeon Colon and Rectal Surgery 11/21/23 Анна Robert, RN [address] [facility] [address] [place] [address] SHOP Outpatient Fur Dry Cleaner Hand 09/29/24 10/01/24 documented as of this encounter
--- OUTSIDE RECORDS SUMMARY | 2025-04-07 21:13 | XMS_ITS | Encounter Summary ---
Author Organization [employer] Address [address] [place] [address] Care Team Providers Care Mechanical Engineering Draftsperson Name Role Phone Kenton Ricks MD Primary Care Provider [phone] Encounter Details Date Type Department Care Team (Late st Contact Info) Description 09/30/2001 Outpatient [facility] [address] [place] [address]. [place] [address] Anika Rowan MD NO ADDRESS ON FILE Social History Tobacco Use Types Packs/Day Years Used Date Smoking Tobacco: Never Assessed Sex and Gender Information Value Date Recorded Sex Assigned at Not on file Legal Sex Male 4:35 AM PREPAROLE COUNSELING AIDE Gender Identity Not on file Sexual Orientation Not on file documented as of this encounter Plan of Treatment Not on file documented as of this encounter Visit Diagnoses Not on filedocumented in this encounter Care Teams Mechanical Engineering Draftsperson Relationship Specialty Start Date End Date Kenton Ricks MD [address] [place] [id number] PCP - General Family Practice 11/15/18 documented as of this encounter
--- OUTSIDE RECORDS SUMMARY | 2025-04-07 21:13 | XMS_ITS | Encounter Summary ---
Author Organization [facility] Address [address] [place] [address] Phone Care Team Providers Care 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 Machined Parts Name Role Phone Kenton Ricks MD Primary Care Provider + [phone] Kenton Ricks MD Primary Care Provider + [phone] Pebbles Nelson MD Unavailable [phone] Aylin Russ MD Unavailable +[phone] Maricruz Ramirez NP Unavailable [phone] Joanne Lopez RN Unavailable Padmini Leatha Carter Unavailable Unavailable Ben Chahal MD PhD Unavailable [phone] Chace Oliva MD Unavailable +[phone] Giovanna Alexis MD Unavailable Taisha Suarez RN Unavailable Unavaila Sandra Aguirre MD Unavailable +[phone] Abby Higgins MD PhD Unavailable + Adrian Martinez MD Unavailable Vera Pérez Unavailable [phone] Jim Frausto MD Unavailable [phone] Анна Robert RN Unavailable [phone] Encounter Details Date Type Department Care Team (Late st Contact Info) Description 03/14/2016 Orders Only [facility] CLINCONV Provider, MD Max [address] [place] [address] Social History Tobacco Use Types Packs/Day Years Used Date Smoking Tobacco: Never Assessed Sex and Gender Information Value Date Recorded Sex Assigned at Not on file Legal Sex Male 12:58 AM SHREDDER OPERATOR Gender Identity Male 11/11/2018 10:31 AM CDT Sexual Orientation Straight 06/09/2019 5: 34 PM SHREDDER OPERATOR documented as of this encounter Plan [...] COVID: Suspected 06/07/2023 06/07/2023 06/07/2023 12:46 PM SHREDDER OPERATOR COVID19 06/07/2023 06/07/2023 06/22/2023 3:06 AM SHREDDER OPERATOR COVID: Recovered Comment:Added based on recent COVID infection. 06/22/2023 06/22/2023 09/20/2023 3:05 AM C DT COVID: Suspected 07/24/2023 07/24/2023 07/24/2023 3:53 PM SHREDDER OPERATOR Diarrhea 07/30/2023 07/30/2023 08/13/2023 3:05 AM SHREDDER OPERATOR COVID: Suspected 08/30/2023 08/30/2023 08/30/2023 4:52 PM SHREDDER OPERATOR COVID: Suspected 10/12/2023 10/12/2023 10/12/2023 7:57 PM CDT Rhino/Enterovirus 10/12/2023 10/12/2023 10/26/2023 3:05 AM CDT COVID: Suspected 07/10/2024 07/10/2024 07/10/2024 4:53 PM SHREDDER OPERATOR COVID: Suspected Comment:07/16/2024 IP Review: no outstanding test, last RPP negative. Mary Tiwari RN 07/16/2024 07/16/2024 10:51 AM SHREDDER OPERATOR COVID19 Comment:07/16/2024 IP Review: added by RN, RPP negative. Mary Tiwari RN 07/16/2024 07/16/2024 07/16/2024 10:51 AM SHREDDER OPERATOR MRSA Comment:nasalMRSA Isolation [place]way 09/03/24 07/16/2024 08/15/2024 09/03/2024 6:[address] C. difficile suspected 07/19/2024 07/19/202407/19 2:34 PM SHREDDER OPERATOR COVID: Suspected 07/23/2024 07/23/2024 07/23/2024 11:28 PM SHREDDER OPERATOR C. difficile suspected 07/23/2024 07/24/202407/24 10:31 AM SHREDDER OPERATOR Norovirus suspected 07/23/2024 07/24/2024 07/24/19 9:37 AM SHREDDER OPERATOR VRE Comment:Contact Precautions (gown and gloves) - not eligible for IP review until 6 months after positive culture - Jerod QURESHI, CONY 10/01/24 07/24/2024 09/20/2024 03/19/2025 7:26 PM C DT COVID: Suspected 08/09/2024 08/09/2024 08/09/2024 9:40 AM SHREDDER OPERATOR Influenza, adult Comment:08/26/2024 IP Review: pt afebrile but on antipyretics. Needs 24 hours off antipyretics and symptoms significantly improved/resolved in order for isolation to be discontinued. Mary Tiwari RN 08/15/2024 08/15/2024 08/29/2024 3:06 AM SHREDDER OPERATOR Coronavirus, droplet 08/15/2024 08/15/202408/29/ 025 3:06 AM SHREDDER OPERATOR C. difficile suspected 09/19/2024 09/19/202409/20 3:05 [...] documented as of this encounter Care Teams 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 Machined Parts Relationship Specialty Start Date End Date Kenton Ricks MD PCP - General 08/14/16 Kenton Ricks MD PCP - General 09/17/08 08/13/16 Pebbles Nelson MD Referring Physician Cardiology 02/07/19 Aylin Russ MD [address] [facility] [address] [place] [address] Referring Physician Pulmonary Disease 02/07/19 Maricruz Ramirez NP [address] [facility] [address] [place] [address] Nurse Practitioner Cardiovascular Disease 09/25/21 Joanne Lopez, CONY Registered Nurse Pulmonary Disease 08/24/22 Leatha Cristina RMA Surgical Prehabilitation and Readiness (SPAR) Coordinator 09/01/22 01/02/23 Ben Chahal MD PhD [address] [facility] [address] 2 [place] [address] Medical Oncologist/Dairy Farm Supervisor Medical Oncology 10/05/22 Chace Oliva MD [address] [facility] [address] [place] [address] Consulting Physician Infectious Diseases 12/22/2204/01 Giovanna Alexis MD [address] [place] [address] Radiation Oncologist Radiation Oncology 03/09/23 Taisha Suarez, industrial relations counselor Prehabilitation and Readiness (SPAR) Coordinator General Surgery 03/20/23 04/10/23 Sandra Ma MD [address] [facility] [address] DIV IM MEDICAL ONCOLOGY, [address]A, 7B, [address] [place] [address] Consulting Physician Medical Oncology 04/25/23 05/09/23 Abby Higgins MD PhD [address] DIV IM MEDICAL ONCOLOGY, [address]A, 7B, [address] [place] [address] Medical Oncologist/Dairy Farm Supervisor Medical Oncology 05/10/23 Adrian Martinez MD [address] DIV SURG TRANSPLANT, [facility] [address] [place] [address] Surgical Oncologist Surgical Oncology 05/28/23 Vera Pérez PA [address] [place] [id number] [place] [address] Physician Caustic Room Operator Colon and Rectal Surgery 09/13/23 Jim Frausto MD [address] [facility] [id number] [place] [address] Surgeon Colon and Rectal Surgery 11/21/23 Анна Robert, RN [address] [facility] [address] [place] [address] SHOP Outpatient Burrer Marker Axle 09/29/24 10/01/24 documented as of this encounter
--- OUTSIDE RECORDS SUMMARY | 2025-04-07 21:13 | XMS_ITS | Clinical Summary ---
Author Organization [facility] Address [address] [place] [address] Care Team Providers Care Social Media Intern Name Role Phone Kenton Ricks MD Primary Care Provider [phone] Allergies Active Allergy Reactions Criticality Noted Date [...] on file Legal Sex Male 4:35 AM CAR LUBRICATOR Gender Identity Not on file Sexual Orientation [...] BS BLUE ACCESS/TRUE BLUE PPO Care Teams Social Media Intern Relationship Specialty Start Date End Date Kenton Ricks MD [address] [place] [address] PCP - General Family Practice 11/15/18
--- OUTSIDE RECORDS SUMMARY | 2025-04-07 21:13 | XMS_ITS | Encounter Summary ---
Author Organization [facility] Address [address] [place] [address] Phone Care Team Providers Care Denture Waxer Name Role Phone Kenton Ricks MD Primary Care Provider + [phone] Pebbles Nelson MD Unavailable [phone] Aylin Russ MD Unavailable [phone] Maricruz Ramirez NP Unavailable [phone] Joanne Lopez RN Unavailable Padmini Leatha Carter Unavailable Unavailable Ben Chahal MD PhD Unavailable [phone] Chace Oliva MD Unavailable [phone] Giovanna Alexis MD Unavailable Taisha Suarez RN Unavailable Unavaila Sandra Aguirre MD Unavailable +[phone] Abby Higgins MD PhD Unavailable + Adrian Martinez MD Unavailable [phone] Vera Pérez Unavailable [phone] Jim Frausto MD Unavailable Анна Robert RN Unavailable [phone] Encounter Details Date Type Department Care Team [...] week 10/17/2021 How often do you attend [facility] or samaritan services? More than 4 times per year 10/17/2021 Do you belong to any clubs o r organizations such as orthodoxy groups, unions, fraternal or athletic groups, or [...] slept in a retirement (including now)? No 10/17/2021 Sex and Gender Information Value Date Recorded Sex Assigned at Not on file Legal Sex Male 12:58 AM POOL MANAGER Gender Identity Male 11/11/2018 10:31 AM CDT Sexual Orientation Straight 06/09/2019 5: 34 PM POOL MANAGER documented as of this encounter Plan of [...] COVID: Suspected 06/07/2023 06/07/2023 06/07/2023 12:46 PM POOL MANAGER COVID19 06/07/2023 06/07/2023 06/22/2023 3:06 AM POOL MANAGER COVID: Recovered Comment:Added based on recent COVID infection. 06/22/2023 06/22/2023 09/20/2023 3:05 AM C DT COVID: Suspected 07/24/2023 07/24/2023 07/24/2023 3:53 PM POOL MANAGER Diarrhea 07/30/2023 07/30/2023 08/13/2023 3:05 AM POOL MANAGER COVID: Suspected 08/30/2023 08/30/2023 08/30/2023 4:52 PM POOL MANAGER COVID: Suspected 10/12/2023 10/12/2023 10/12/2023 7:57 PM CDT Rhino/Enterovirus 10/12/2023 10/12/2023 10/26/2023 3:05 AM CDT COVID: Suspected 07/10/2024 07/10/2024 07/10/2024 4:53 PM POOL MANAGER COVID: Suspected Comment:07/16/2024 IP Review: no outstanding test, last RPP negative. Mary Tiwari, CONY 07/16/2024 07/16/2024 10:51 AM POOL MANAGER COVID19 Comment:07/16/2024 IP Review: added by CLAUDIO DONNELLY negative. Mary Tiwari RN 07/16/2024 07/16/2024 07/16/2024 10:51 AM POOL MANAGER MRSA Comment:nasalMRSA Isolation Care Home 09/03/24 07/16/2024 08/15/2024 09/03/2024 6:[address] C. difficile suspected 07/19/2024 07/19/202407/19 2:34 PM POOL MANAGER COVID: Suspected 07/23/2024 07/23/2024 07/23/2024 11:28 PM POOL MANAGER C. difficile suspected 07/23/2024 07/24/202407/24 10:31 AM POOL MANAGER Norovirus suspected 07/23/2024 07/24/2024 07/24/19 9:37 AM POOL MANAGER VRE Comment:Contact Precautions (gown and gloves) - not eligible for IP review until 6 months after positive culture - Jerod QURESHI, CONY 10/01/24 07/24/2024 09/20/2024 03/19/2025 7:26 PM C DT COVID: Suspected 08/09/2024 08/09/2024 08/09/2024 9:40 AM POOL MANAGER Influenza, adult Comment:08/26/2024 IP Review: pt afebrile but on antipyretics. Needs 24 hours off antipyretics and symptoms significantly improved/resolved in order for isolation to be discontinued. Mary Tiwari RN 08/15/2024 08/15/2024 08/29/2024 3:06 AM POOL MANAGER Coronavirus, droplet 08/15/2024 08/15/2024 025 3:06 AM POOL MANAGER C. difficile suspected 09/19/2024 09/19/202409/20 3:05 AM [...] documented as of this encounter Care Teams Denture Waxer Relationship Specialty Start Date End Date Kenton Ricks MD PCP - General 08/14/16 Pebbles Nelson MD Referring Physician Cardiology 02/07/19 Aylin Russ MD [address] [facility] [address] [place] [address] Referring Physician Pulmonary Disease 02/07/19 Maricruz Ramirez, CAREERS COUNSELLOR [address] [place] [address] Nurse Practitioner Cardiovascular Disease 09/25/21 Joanne Lopez, RN Registered Nurse Pulmonary Disease 08/24/22 Leatha Cristina RMA Surgical Prehabilitation and Readiness (SPAR) Coordinator 09/01/22 01/02/23 Ben Chahal MD PhD 10 [facility] # 2 DIV [place] [address] Medical Oncologist/Flue Cleaner Medical Oncology 10/05/22 Chace Oliva MD [address] [place] [address] Consulting Physician Infectious Diseases 12/22/2204/01 Giovanna Alexis MD [address] [place] [address] Radiation Oncologist Radiation Oncology 03/09/23 Taisha Suarez, accounting manager controller Prehabilitation and Readiness (SPAR) Coordinator General Surgery 03/20/23 04/10/23 Sandra Ma MD [address] DIV IM MEDICAL ONCOLOGY, [address]A, 7B, [address] [place] [address] Consulting Physician Medical Oncology 04/25/23 05/09/23 Abby Higgins MD PhD [address] DIV IM MEDICAL ONCOLOGY, [address]A, 7B, [address] [place] [address] Medical Oncologist/Flue Cleaner Medical Oncology 05/10/23 Adrian Martinez MD [address] DIV SURG TRANSPLANT, [address] [place] [address] Surgical Oncologist Surgical Oncology 05/28/23 Vera Pérez PA [address] [place] [id number] [place] [address] Physician Automotive Parts Advisor Colon and Rectal Surgery 09/13/23 Jmi Frausto MD [address] [facility] [place] [place] [phone] [place] [address] Surgeon Colon and Rectal Surgery 11/21/23 Анна Robert, RN [address] [facility] [address] [place] [address] SHOP Outpatient Firer Automatic Stoker 09/29/24 10/01/24 documented as of this encounter
--- OUTSIDE RECORDS SUMMARY | 2025-04-07 21:13 | XMS_ITS | Encounter Summary ---
Author Organization [facility] Address [address] [place] [address] Phone Care Team Providers Care Promotions Specialist Name Role Phone Kenton Ricks MD Primary Care Provider + [phone] Pebbles Nelson MD Unavailable [phone] Aylin Russ MD Unavailable [phone] Maricruz Ramirez NP Unavailable [phone] Joanne Lopez RN Unavailable Padmini Ben Walker MD PhD Unavailable [phone] Giovanna Alexis MD Unavailable Abby Higgins MD PhD Unavailable + Adrian Martinez MD Unavailable [phone] Vera Pérez Unavailable [phone] Jim Frausto MD Unavailable [phone] Encounter Details Date Type Department Care Team (Late st Contact Info) Description 03/26/2025 Telephone [facility] Medicine Cardiology [address] [place] [address] [place] [id number] Nicki Conroy Social History Tobacco Use Types [...] How often do you attend chur or jew services? More than 4 times per year 01/13/2025 Do you belong to any clubs o r organizations such as buddhism groups, unions, fraternal or athletic groups, or [...] Date Recorded PHQ-2 Total Score 1 09/21/2024 [facility] - Occupational Stress Questionnaire Answer Date Recorded [...] slept in a prison (including now)? No 11/12/2023 PHQ-9 Answer Date [...] any time in the past 12 m [facility], were you homeless or living in a prison (including now)? No 01/13/2025 Social Connection and Isolation Panel Answer Date Recorded In a typical week, how many times do you talk on the phone with family, friends, or neighbors? More than three times a week 03/03/2025 How often do you get togethe r with friends or relatives? Twice a week 03/03/2025 How often do you attend chur ch or jew services? More than 4 times per year 03/03/2025 Do you belong to any clubs o r organizations such as buddhism groups, unions, fraternal or athletic groups, or [...] any time in the past 12 m [facility], were you homeless or living in a prison (including now)? No 03/03/2025 [facility] Utilities Answer Date Recorded In the past 12 months has e [employer], gas, oil, or water [employer] threatened to shut off services in your home? No 03/03/2025 Personal Safety Answer Date Recorded Have you ever been in or are you currently in a harmful physical or emotional relationship or is someone making you feel afraid or unsafe? Denies 03/01/2025 Sex and Gender Information Value Date Recorded Sex Assigned at Not on file Legal Sex Male 12:58 AM SMOKING PIPE MAKER Gender Identity Male 11/11/2018 10:31 AM CDT Sexual Orientation Straight 06/09/2019 5: 34 PM SMOKING PIPE MAKER documented as of this encounter Miscellaneous Notes [...] made aware his home monitor did not lease picker any arrhythmia detections. Pt states last [...] documented as of this encounter Care Teams Promotions Specialist Relationship Specialty Start Date End Date Kenton Ricks MD PCP - General 08/14/16 Pebbles Nelson MD Referring Physician Cardiology 02/07/19 Aylin Russ MD [address] [facility] [address] [place] [address] Referring Physician Pulmonary Disease 02/07/19 Maricruz Ramirez, BEARING GRINDER [address] [place] [address] Nurse Practitioner Cardiovascular Disease 09/25/21 Joanne Lopez, RN Registered Nurse Pulmonary Disease 08/24/22 Ben hCahal MD PhD 10 [facility] # 2 [place] [address] Medical Oncologist/Hematologis t Medical Oncology 10/05/22 Giovanna Alexis MD [address] [place] [address] Radiation Oncologist Radiation Oncology 03/09/23 Abby Higgins MD PhD [address] DIV IM MEDICAL ONCOLOGY, [facility] 7A, 7B, [address] [place] [address] Medical Oncologist/Hematologis t Medical Oncology 05/10/23 Adrian Martinez MD [address] DIV SURG TRANSPLANT, [address] [place] [address] Surgical Oncologist Surgical Oncology 05/28/23 Vera Pérez PA [address] [place] [id number] [place] [address] Physician Purchasing Manager/Sales Colon and Rectal Surgery 09/13/23 Jim Frausto MD [address] [facility] [phone] [place] [address] Surgeon Colon and Rectal Surgery 11/21/23 documented as of this encounter
--- OUTSIDE RECORDS SUMMARY | 2025-04-07 21:13 | XMS_ITS | Encounter Summary ---
Author Organization [facility] Address [address] [place] [address] Phone Care Team Providers Care Rn Travel Name Role Phone Kenton Ricks MD Primary Care Provider + [phone] Pebbles Nelson MD Unavailable [phone] Aylin Russ MD Unavailable [phone] Maricruz Ramirez NP Unavailable [phone] Joanne Lopez RN Unavailable Padmini Leatha Carter Unavailable Unavailable Ben Chahal MD PhD Unavailable [phone] Chace Oliva MD Unavailable [phone] Giovanna Alexis MD Unavailable Taisha Suarez RN Unavailable Unavaila Sandra Aguirre MD Unavailable [phone] Abby Higgins MD PhD Unavailable + Adrian Martinez MD Unavailable [phone] Vera Pérez Unavailable [phone] Jim Frausto MD Unavailable [phone] Анна Robert RN Unavailable [phone] Encounter Details Date Type Department Care Team [...] 10/17/2021 How often do you attend [facility] or jain services? More than 4 times per year 10/17/2021 Do you belong to any clubs o r organizations such as congregational groups, unions, fraternal or athletic groups, or [...] slept in a snf (including now)? No 10/17/2021 Sex and Gender Information Value Date Recorded Sex Assigned at Not on file Legal Sex Male 12:58 AM BINDING STITCHER Gender Identity Male 11/11/2018 10:31 AM CDT Sexual Orientation Straight 06/09/2019 5: 34 PM BINDING STITCHER documented as of this encounter Plan of [...] COVID: Suspected 06/07/2023 06/07/2023 06/07/2023 12:46 PM BINDING STITCHER COVID19 06/07/2023 06/07/2023 06/22/2023 3:06 AM BINDING STITCHER COVID: Recovered Comment:Added based on recent COVID infection. 06/22/2023 06/22/2023 09/20/2023 3:05 AM C DT COVID: Suspected 07/24/2023 07/24/2023 07/24/2023 3:53 PM BINDING STITCHER Diarrhea 07/30/2023 07/30/2023 08/13/2023 3:05 AM BINDING STITCHER COVID: Suspected 08/30/2023 08/30/2023 08/30/2023 4:52 PM BINDING STITCHER COVID: Suspected 10/12/2023 10/12/2023 10/12/2023 7:57 PM CDT Rhino/Enterovirus 10/12/2023 10/12/2023 10/26/2023 3:05 AM CDT COVID: Suspected 07/10/2024 07/10/2024 07/10/2024 4:53 PM BINDING STITCHER COVID: Suspected Comment:07/16/2024 IP Review: no outstanding test, last RPP negative. Mary Tiwari RN 07/16/2024 07/16/2024202 5 10:51 AM BINDING STITCHER COVID19 Comment:07/16/2024 IP Review: added by CLAUDIO DONNELLY negative. Mary Tiwari RN 07/16/2024 07/16/2024 07/16/2024 10:51 AM BINDING STITCHER MRSA Comment:nasalMRSA Isolation Jail 09/03/24 07/16/2024 08/15/2024 09/03/2024 6:[address] C. difficile suspected 07/19/2024 07/19/202407/19 2:34 PM BINDING STITCHER COVID: Suspected 07/23/2024 07/23/2024 07/23/2024 11:28 PM BINDING STITCHER C. difficile suspected 07/23/2024 07/24/202407/24 10:31 AM BINDING STITCHER Norovirus suspected 07/23/2024 07/24/2024 07/24/19 9:37 AM BINDING STITCHER VRE Comment:Contact Precautions (gown and gloves) - not eligible for IP review until 6 months after positive culture - Jerod QURESHI, RN 10/01/24 07/24/2024 09/20/2024 03/19/2025 7:26 PM C DT COVID: Suspected 08/09/2024 08/09/2024 08/09/2024 9:40 AM BINDING STITCHER Influenza, adult Comment:08/26/2024 IP Review: pt afebrile but on antipyretics. Needs 24 hours off antipyretics and symptoms significantly improved/resolved in order for isolation to be discontinued. Mary Tiwari RN 08/15/2024 08/15/2024 08/29/2024 3:06 AM BINDING STITCHER Coronavirus, droplet 08/15/2024 08/15/2024 025 3:06 AM BINDING STITCHER C. difficile suspected 09/19/2024 09/19/202409/20 3:05 AM [...] as of this encounter Care Teams Rn Travel Relationship Specialty Start Date End Date Kenton Ricks MD PCP - General 08/14/16 Pebbles Nelson MD Referring Physician Cardiology 02/07/19 Aylin Russ MD [address] [facility] [address] [place] [address] Referring Physician Pulmonary Disease 02/07/19 Maricruz Ramirez, INTERNAL SALES ENGINEER [address] [place] [address] Nurse Practitioner Cardiovascular Disease 09/25/21 Joanne Lopez, RN Registered Nurse Pulmonary Disease 08/24/22 Leatha Cristina RMA Surgical Prehabilitation and Readiness (SPAR) Coordinator 09/01/22 01/02/23 Ben Chahal MD PhD 10 [facility] # 2 [place] [address] Medical Oncologist/Custom Tailor Apprentice Medical Oncology 10/05/22 Chace Oliva MD [address] [place] [address] Consulting Physician Infectious Diseases 12/22/2204/01 Giovanna Alexis MD [address] [place] [address] Radiation Oncologist Radiation Oncology 03/09/23 Taisha Suarez, box bender Prehabilitation and Readiness (SPAR) Coordinator General Surgery 03/20/23 04/10/23 Sandra Ma MD [address] DIV IM MEDICAL ONCOLOGY, [facility] 7A, 7B, [address] [place] [address] Consulting Physician Medical Oncology 04/25/23 05/09/23 Abby Higgins MD PhD [address] DIV IM MEDICAL ONCOLOGY, [facility] 7A, 7B, [address] [place] [address] Medical Oncologist/Custom Tailor Apprentice Medical Oncology 05/10/23 Adrian Martinez MD [address] DIV SURG TRANSPLANT, [address] [place] [address] Surgical Oncologist Surgical Oncology 05/28/23 Vera Pérez PA [address] [place] [phone] [place] [address] Physician Clinical Specialist Vascular Colon and Rectal Surgery 09/13/23 Jim Frausto MD [address] [facility] [phone] [place] [address] Surgeon Colon and Rectal Surgery 11/21/23 Анна Robert, RN [address] [facility] [address] [place] [address] SHOP Outpatient Tow Truck Driver 09/29/24 10/01/24 documented as of this encounter
--- OUTSIDE RECORDS SUMMARY | 2025-04-07 21:13 | XMS_ITS | Encounter Summary ---
Author Organization [facility] Address [address] [place] [address] Phone Care Team Providers Care Food Service Technician Name Role Phone Kenton Ricks MD Primary Care Provider + [phone] Kenton Ricks MD Primary Care Provider + [phone] Pebbles Nelson MD Unavailable [phone] Aylin Russ MD Unavailable [phone] Maricruz Ramirez NP Unavailable [phone] Joanne Lopez RN Unavailable Padmini Leatha Carter Unavailable Unavailable Ben Chahal MD PhD Unavailable [phone] Chace Oliva MD Unavailable [phone] Giovanna Alexis MD Unavailable Taisha Suarez RN Unavailable Unavaila Sandra Aguirre MD Unavailable [phone] Abby Higgins MD PhD Unavailable + Adrian Martinez MD Unavailable [phone] Vera Pérez Unavailable [phone] Jim Frausto MD Unavailable Анна Robert RN Unavailable [phone] Encounter Details Date Type Department Care Team (Late st Contact Info) Description 02/20/2014 Orders Only [facility] Provider, MD Max [address] [place] [id number] Social History Tobacco Use Types Packs/Day Years Used Date Smoking Tobacco: Never Assessed Sex and Gender Information Value Date Recorded Sex Assigned at Not on file Legal Sex Male 12:58 AM BEEKEEPER FARMER Gender Identity Male 11/11/2018 10:31 AM CDT Sexual Orientation Straight 06/09/2019 5: 34 PM BEEKEEPER FARMER documented as of this encounter Plan of [...] COVID: Suspected 06/07/2023 06/07/2023 06/07/2023 12:46 PM BEEKEEPER FARMER COVID19 06/07/2023 06/07/2023 06/22/2023 3:06 AM BEEKEEPER FARMER COVID: Recovered Comment:Added based on recent COVID infection. 06/22/2023 06/22/2023 09/20/2023 3:05 AM C DT COVID: Suspected 07/24/2023 07/24/2023 07/24/2023 3:53 PM BEEKEEPER FARMER Diarrhea 07/30/2023 07/30/2023 08/13/2023 3:05 AM BEEKEEPER FARMER COVID: Suspected 08/30/2023 08/30/2023 08/30/2023 4:52 PM BEEKEEPER FARMER COVID: Suspected 10/12/2023 10/12/2023 10/12/2023 7:57 PM CDT Rhino/Enterovirus 10/12/2023 10/12/2023 10/26/2023 3:05 AM CDT COVID: Suspected 07/10/2024 07/10/2024 07/10/2024 4:53 PM BEEKEEPER FARMER COVID: Suspected Comment:07/16/2024 IP Review: no outstanding test, last RPP negative. Mary Tiwari RN 07/16/2024 07/16/2024 10:51 AM BEEKEEPER FARMER COVID19 Comment:07/16/2024 IP Review: added by RN, RPP negative. Mary Tiwari RN 07/16/2024 07/16/2024 07/16/2024 10:51 AM BEEKEEPER FARMER MRSA Comment:nasalMRSA Isolation Correction 09/03/24 07/16/2024 08/15/2024 09/03/2024 6:[address] C. difficile suspected 07/19/2024 07/19/202407/19 2:34 PM BEEKEEPER FARMER COVID: Suspected 07/23/2024 07/23/2024 07/23/2024 11:28 PM BEEKEEPER FARMER C. difficile suspected 07/23/2024 07/24/202407/24 10:31 AM BEEKEEPER FARMER Norovirus suspected 07/23/2024 07/24/2024 07/24/19 9:37 AM BEEKEEPER FARMER VRE Comment:Contact Precautions (gown and gloves) - not eligible for IP review until 6 months after positive culture - Jerod QURESHI, CONY 10/01/24 07/24/2024 09/20/2024 03/19/2025 7:26 PM C DT COVID: Suspected 08/09/2024 08/09/2024 08/09/2024 9:40 AM BEEKEEPER FARMER Influenza, adult Comment:08/26/2024 IP Review: pt afebrile but on antipyretics. Needs 24 hours off antipyretics and symptoms significantly improved/resolved in order for isolation to be discontinued. Mary Tiwari RN 08/15/2024 08/15/2024 08/29/2024 3:06 AM BEEKEEPER FARMER Coronavirus, droplet 08/15/2024 08/15/202408/29/ 025 3:06 AM BEEKEEPER FARMER C. difficile suspected 09/19/2024 09/19/202409/20 3:05 AM [...] documented as of this encounter Care Teams Food Service Technician Relationship Specialty Start Date End Date Kenton Ricks MD PCP - General 08/14/16 Kenton Ricks MD PCP - General 09/17/08 08/13/16 Pebbles Nelson MD Referring Physician Cardiology 02/07/19 Aylin Russ MD [address] [facility] [address] [place] [address] Referring Physician Pulmonary Disease 02/07/19 Maricruz Ramirez NP [address] [facility] [address] [place] [address] Nurse Practitioner Cardiovascular Disease 09/25/21 Joanne Lopez, CONY Registered Nurse Pulmonary Disease 08/24/22 Leatha Cristina RMA Surgical Prehabilitation and Readiness (SPAR) Coordinator 09/01/22 01/02/23 Ben Chahal MD PhD [address] [facility] [address] [place] [address] Medical Oncologist/Foreign Policy Officer Medical Oncology 10/05/22 Chace Oliva MD [address] [facility] [address] [place] [address] Consulting Physician Infectious Diseases 12/22/2204/01 Giovanna Alexis MD [address] [place] [address] Radiation Oncologist Radiation Oncology 03/09/23 Taisha Suarez, manager of program Prehabilitation and Readiness (SPAR) Coordinator General Surgery 03/20/23 04/10/23 Sandra Ma MD [address] [facility] [address] [facility] IM MEDICAL ONCOLOGY, [address], [address]B, [address] [place] [address] Consulting Physician Medical Oncology 04/25/23 05/09/23 Abby Higgins MD PhD [address] DIV IM MEDICAL ONCOLOGY, [address] 7A, 7B, [address]C [place] [address] Medical Oncologist/Foreign Policy Officer Medical Oncology 05/10/23 Adrian Martinez MD [address] DIV SURG TRANSPLANT, [facility] [address] [place] [address] Surgical Oncologist Surgical Oncology 05/28/23 Vera Pérez PA [address] [id number] [place] [address] Physician Accounts Payable Bookkeeper Colon and Rectal Surgery 09/13/23 Jim Frausto MD [address] [facility] [id number] [place] [address] Surgeon Colon and Rectal Surgery 11/21/23 Анна Robert, RN [address] [facility] [address] [place] [address] SHOP Outpatient What Job Titles Mean 09/29/24 10/01/24 documented as of this encounter
--- OUTSIDE RECORDS SUMMARY | 2025-04-07 21:13 | XMS_ITS | Encounter Summary ---
Author Organization [facility] Address [address] [place] [address] Phone Care Team Providers Care Portable Feed Mill Operator Name Role Phone Kenton Ricks MD Primary Care Provider + [phone] Pebbles Nelson MD Unavailable [phone] Aylin Russ MD Unavailable [phone] Maricruz Ramirez NP Unavailable [phone] Joanne Lopez RN Unavailable Padmini Ben Walker MD PhD Unavailable [phone] Giovanna Alexsi MD Unavailable Abby Higgins MD PhD Unavailable + Adrian Martinez MD Unavailable [phone] Vera Pérez Unavailable [phone] Jim Frausto MD Unavailable [phone] Encounter Details Date Type Department Care Team (Late st Contact Info) Description 02/25/2025 Results Follow-Up [facility] Medicine Dermatology [address] [facility] [address] [place] [address] Kemal Galvez MD [address] [facility] [address] [place], [place] [id number] Surgical pathology Social History Tobacco Use Types [...] materials from doctor or pharmacy Sometimes 09/03/2023 [facility] Utilities Answer Date Recorded In the past 12 months has e [employer], gas, oil, or water [employer] threatened to shut off services in your [...] often do you attend chur ch or denominational services? More than 4 times per year 01/13/2025 Do you belong to any clubs o r organizations such as gnosticism groups, unions, fraternal or athletic groups, or [...] Date Recorded PHQ-2 Total Score 1 09/21/2024 [facility] - Occupational [...] place to sleep or slept in a long-term (including now)? No 11/12/2023 PHQ-9 Answer Date [...] any time in the past 12 m [facility], were you homeless or living in a long-term (including now)? No 01/13/2025 Personal Safety Answer Date Recorded Have you ever been in or are you currently in a harmful physical or emotional relationship or is someone making you feel afraid or unsafe? Denies 03/01/2025 Sex and Gender Information Value Date Recorded Sex Assigned at Not on file Legal Sex Male 12:58 AM DITTO MACHINE OPERATOR Gender Identity Male 11/11/2018 10:31 AM CDT Sexual Orientation Straight 06/09/2019 5: 34 PM DITTO MACHINE OPERATOR documented as of this encounter [...] documented as of this encounter Care Teams Portable Feed Mill Operator Relationship Specialty Start Date End Date Kenton Ricks MD PCP - General 08/14/16 Pebbles Nelson MD Referring Physician Cardiology 02/07/19 Aylin Russ MD [address] [place] [address] Referring Physician Pulmonary Disease 02/07/19 Maricruz Ramirez NP [address] [facility] [address] [place] [address] Nurse Practitioner Cardiovascular Disease 09/25/21 Joanne Lopez, [place] Registered Nurse Pulmonary Disease 08/24/22 Ben Chahal MD PhD [address] [place] [address] [address] DIV [place] [address] Medical Oncologist/Hematologis t Medical Oncology 10/05/22 Giovanna Alexis MD [address] [facility] [address] [place] [address] Radiation Oncologist Radiation Oncology 03/09/23 Abby Higgins MD PhD [address] DIV IM MEDICAL ONCOLOGY, [address]A, 7B, [address] [place] [address] Medical Oncologist/Hematologis t Medical Oncology 05/10/23 Adrian Martinez MD [address] DIV SURG TRANSPLANT, [address] [place] [address] Surgical Oncologist Surgical Oncology 05/28/23 Vera Pérez PA [address] [place] [id number] [place] [address] Physician Cat Scanner Operator Colon and Rectal Surgery 09/13/23 Jim Frausto MD [address] [facility] [phone] [place] [address] Surgeon Colon and Rectal Surgery 11/21/23 documented as of this encounter
--- OUTSIDE RECORDS SUMMARY | 2025-04-07 21:13 | XMS_ITS ---
Author Organization [facility] Address [address] [place] [address] Care Team Providers Care Database Modeler Name Role Phone Kenton Ricks MD Primary Care Provider + [phone] Pebbles Nelson MD Unavailable [phone] Aylin Russ MD Unavailable [phone] Maricruz Ramirez NP Unavailable [phone] Joanne Lopez RN Unavailable Padmini Ben Walker MD PhD Unavailable [phone] Giovanna Alexis MD Unavailable Abby Higgins MD PhD Unavailable + Adrian Martinez MD Unavailable [phone] Vera Pérez Unavailable [phone] Jim Frausto MD Unavailable [phone] Active Problems Problem Noted Date Diagnosed Date [...] 08/23/2024 Assessment & Plan (08/26/2024 3:51 PM GLASSWORKER): The patient reported left eye pain with [...] 08/11/2024 Assessment & Plan (08/26/2024 4:05 PM GLASSWORKER): Patient developed hematemesis on 08/11 with hypotension [...] 08/04/2024 Assessment & Plan (08/22/2024 10:54 PM GLASSWORKER): Started allopurinol this admission Moderate protein-calorie malnutrition [...] PPI Assessment & Plan (08/11/2024 8:44 PM GLASSWORKER): - Recent admission 07/10-07/20 for abd pain. [...] 07/16/2024 Assessment & Plan (07/20/2024 11:28 AM GLASSWORKER): - Resulted with Nystatin Anal fissure 11/21/2023 Assessment & Plan (01/15/2025 11:15 AM CDT): -Continue prn lidocaine NV and nifedipine ointment Assessment & Plan (01/14/2025 11:42 AM CDT): -Continue prn lidocaine NV and nifedipine ointment Assessment & Plan (01/13/2025 12:04 PM CDT): -Continue prn lidocaine NV and nifedipine ointment Assessment & Plan (01/13/2025 1:06 AM CDT): -Continue prn lidocaine NV and nifedipine ointment Assessment & Plan (12/10/2024 [...] CCB - cannot obtain her at [facility] Assessment & Plan (11/22/2024 12:07 PM CDT): - psyllium qAM, added miralax daily - Added lidocaine jelly qid prn - Sitz baths BID - Will try to start topical CCB - cannot obtain her at [facility] Assessment & Plan (11/21/2024 11:50 AM CDT): - psyllium qAM, added miralax daily - Added lidocaine jelly qid prn - Sitz baths BID - Will try to start topical CCB - cannot obtain her at [facility] Assessment & Plan (11/20/2024 11:11 [...] Plan (11/24/2024 9:17 AM CDT): -CPAP at [facility] Assessment & Plan (11/23/2024 9:48 AM CDT): -CPAP at [facility] Assessment & Plan (11/22/2024 12:07 PM CDT): -CPAP at [facility] Assessment & Plan (11/21/2024 11:50 AM CDT): -CPAP at [facility] Assessment & Plan (11/20/2024 11:11 AM CDT): -CPAP at [facility] Assessment & Plan (11/20/2024 1:34 AM CDT): -CPAP at [facility] Assessment & Plan (10/15/2023 2:34 PM CDT): [...] albuterol Assessment & Plan (08/26/2024 4:00 PM GLASSWORKER): Cont. breo ellipta, prn albuterol Iron deficiency [...] 07/25/2023 Assessment & Plan (07/26/2023 12:35 PM GLASSWORKER): - Likely multifactorial 2/2 malignancy, recent whipple, chemotherapy, and pain - Very poor PO intake - RD c/s - Started Mirtazapine - Dietary supplementation - Increased Creon as above Malaise 07/24/2023 Assessment & Plan (07/25/2023 2:16 PM GLASSWORKER): - RVP negative - Improving Kidney lesion 07/21/2023 Assessment & Plan (07/25/2023 2:21 PM GLASSWORKER): - Left renal cyst noted since at [...] prn Assessment & Plan (07/26/2023 12:33 PM GLASSWORKER): - Acute on chronic epigastric pain following [...] 07/09/2023 Assessment & Plan (07/24/2023 5:22 PM GLASSWORKER): - Replace per protocol Class 1 obesity due to exces s calories with serious comorbidity and body mass index (BMI) of 34.0 to 34.9 in adult 06/01/2023 H/O Whipple procedure 05/30/2023 Gastrointestinal hemorrhage 05/30/2023 Assessment & Plan (07/14/2024 12:30 PM GLASSWORKER): History of Postoperative GI bleed. EGD 05/09/23 [...] 02/05/2023 Assessment & Plan (07/21/2023 2:06 AM GLASSWORKER): Also has Hx of prostate cancer s/p prostatectomy. Takes gemtesa at home which is not on formulary - continue home oxybutynin and flomax Assessment & Plan (02/09/2023 3:46 PM CDT): Patient presented w/ low urine output and asymptomatic urinary retention, required straight cath in [facility], currently voiding and emptying appropriately - Stimulator [...] 11/21/2022 Assessment & Plan (08/26/2024 4:05 PM GLASSWORKER): The patient presented with elevated alkaline phosphatase [...] he is scheduled MRI in December at [facility] (requires cardiac monitoring due to ICD) - he is hoping to have this done sooner. Ileus 11/21/2022 Assessment & Plan (07/20/2024 11:29 AM GLASSWORKER): - KUB done 07/13 showing ileus without [...] 10/08/2022 Assessment & Plan (07/21/2023 2:04 AM GLASSWORKER): Diagnosed in August 2022, now s/p course of Eliquis. Presented with trace b/l lower ext edema, b/l erythema and mild tenderness which per patient is increased from baseline. Had similar presentation last hospitalization and LE duplex 06/07 was negative - CTM and consider rescanning if persistent Assessment & Plan (06/09/2023 4:47 PM GLASSWORKER): Hx of DVT in August 2022, he [...] mets or infection and transferred from [facility] to [facility]. ID here with low concern for WIG DRESSER infection. - CT neck/soft tissue with contrast: [...] due to ICD. Plan to transfer to [facility] for further evaluation w/ possible MRI brain and LP. Rash 09/23/2022 Assessment & Plan (06/12/2023 3:50 PM GLASSWORKER): - contact dermatitis? Not concerned about drug [...] to melisa skin necrosis. - transfer to [facility] for derm eval Anemia 09/22/2022 Assessment & Plan (07/26/2023 12:35 PM GLASSWORKER): Acute on chronic. 7.4 on admission. 5 [...] negative. Assessment & Plan (06/12/2023 3:46 PM GLASSWORKER): HGb 7, plt 94, wbc 1.4, abs [...] 09/22/2022 Assessment & Plan (07/26/2023 12:34 PM GLASSWORKER): Has Hx of ileus. On scheduled Linzess, Miralax and PRN Senna-Docusate at home. Patient states he's been having 4-5 soft stools daily - Increased Creon as above. Bowel regimen. Assessment & Plan (06/07/2023 11:26 PM GLASSWORKER): Continue home regimen of Linzess, Miralax and [...] (08/30/2022): Added automatically from request for surgery [id number] Assessment & Plan (10/15/2023 2:34 PM CDT): Hx of L axillary nodes on CT increased from prior study Should f/u with Dr. Chahal Assessment & Plan (10/13/2023 2:03 PM CDT): Hx of L axillary nodes on CT increased from prior study Should f/u with Dr. Chahal Assessment & Plan (07/26/2023 12:31 PM GLASSWORKER): - s/p whipple. Follows with Dr. Chahal [...] plan to hold of next cycle of Laurel/Abraxane till infectious etiology is ruled out Assessment [...] plan to hold of next cycle of Laurel/Abraxane till infectious etiology is ruled out Assessment [...] surveillance Assessment & Plan (08/26/2024 4:00 PM GLASSWORKER): s/p whipple with PV/SMV resection (04/2023) and neoadjuvant chemo (completed 08/2023). Most recent scan showed no evidence of disease recurrence Currently on surveillance with CA 19-[address] CAP every 3 months Assessment & Plan (07/10/2024 10:48 PM GLASSWORKER): Pancreatic cancer s/p Whipple with PV/SMV resection on 04/11/2023 s/p neoadjuvant tx, On surveillance OP follow up. Assessment & Plan (06/08/2023 5:32 PM GLASSWORKER): Pancreatic adenocarcinoma sp Whipple, now on Gemcitabine [...] 1 Assessment & Plan (08/25/2022 12:23 PM GLASSWORKER): Recurrent UTI followed by ID with scrotal [...] 06/09/2019 Assessment & Plan (06/09/2019 12:54 PM GLASSWORKER): He is agreeable to rescheduling the splenic [...] aldactone Assessment & Plan (07/14/2024 12:35 PM GLASSWORKER): HFpEF Euvolemic, normotensive On hold diuretics for now given pt NPO on IVF for ileus, will restart once able to take in po Assessment & Plan (06/11/2023 10:01 PM GLASSWORKER): ECHO 11/21 EF 69%, grade I diastolic [...] diet Assessment & Plan (08/24/2022 1:10 PM GLASSWORKER): Stable, continued torsemide, spironolactone Assessment & Plan (09/24/2021 12:42 AM CDT): Patient is feeling better. states legs have decreased by half. Continue with IV lasix. Continue to monitor Cr and lytes as we diurese. Holding torsemide. Continue aldactone with hold parameters. Assessment & Plan (08/18/2018 1:16 AM GLASSWORKER): Patient presented with increased shortness of breath [...] NPPV Assessment & Plan (08/26/2024 4:02 PM GLASSWORKER): continue nightly CPAP Assessment & Plan (07/21/2023 6:17 AM GLASSWORKER): Desaturations noted in the ED during sleep per on monitor while on RA (not recorded) - continue nightly BiPAP Assessment & Plan (06/07/2023 11:32 PM GLASSWORKER): Continue nightly BiPAP Assessment & Plan (03/18/2023 [...] 8:24 AM CDT): -resume home CPAP at [facility] Assessment & Plan (09/22/2022 3:17 AM CDT): -resume home CPAP at [facility] Assessment & Plan (08/24/2022 1:08 PM GLASSWORKER): - home CPAP machine use Assessment & Plan (09/24/2021 12:39 AM CDT): Patient has home NPPV which has been reordered. 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 Restart CPAP Shortness of breath at rest 08/18/2018 Assessment & Plan (08/18/2018 1:27 AM GLASSWORKER): Patient with complex past medical history with [...] 07/26/2018 Assessment & Plan (08/26/2024 4:05 PM GLASSWORKER): H/o vtach s/p ICD 2013 EP consulted for MRCP earlier in admission. Patient's device is conditioned for MRI. Risk stratification: standard Assessment & Plan (07/10/2024 10:38 PM GLASSWORKER): History of ventricular tachycardia ICD in place Assessment & Plan (07/21/2023 2:11 PM GLASSWORKER): Follows with Dr. Nelson in EP for [...] Aug Assessment & Plan (06/11/2023 9:59 PM GLASSWORKER): Follows with Dr. Nelson in EP for history of VT s/p ICD. Denies any recent shocks, as per not there was unscheduled alarm this month due to RV lead impedance. Has outpatient appointment in August Outpatient follow up with EP Assessment & Plan (03/18/2023 1:23 AM CDT): Monitor. MRI conditional. If needs MRI, will need to go to [facility]. Assessment & Plan (02/05/2023 6:58 PM CDT): [...] ordered Assessment & Plan (08/18/2018 1:17 AM GLASSWORKER): Last device interrogation was in July of [...] s/p shoulder surgery. Follows with Dr. Russ ([facility]) as OP. On Symbicort at home. 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 Russ - c/w Breo-Ellipta Assessment & Plan (08/18/2018 1:17 AM GLASSWORKER): Continue with gabapentin Chronic heart failure with [...] PO Assessment & Plan (08/26/2024 4:06 PM GLASSWORKER): Volume down on admission due to diarrhea, now appear slightly volume up, likely I/s/o transfusions and held diuretics Continue to hold home torsemide and spironolactone for now, consider gently resuming prior to discharge Assessment & Plan (07/26/2023 12:34 PM GLASSWORKER): BLE edema with erythema noted on exam. [...] elevated at home, he can contact his PCP/dairy laboratory technician for further insulin adjustments. Assessment & Plan [...] regimen Assessment & Plan (08/26/2024 4:05 PM GLASSWORKER): Last A1c 8.4. Home regimen: tresiba 45 units, novolog 12 units w/ breakfast and dinner, 8 units with lunch and sliding scale 1:50 > 150 Continue lantus 5 units qam + SSI Assessment & Plan (07/17/2024 2:29 PM GLASSWORKER): - On tresiba 24U Qam and Lispro [...] hdssi Assessment & Plan (07/26/2023 12:33 PM GLASSWORKER): Insulin dependant. Home regimen: Tresiba 42 units qam, Meal-time insulin 15u tid, SSI. Has had poor oral intake over last 2-3 weeks. He mentions his Stephen 2 sensor has been recording low sugars in 40s-50s overnight for 1 week - SSI inpatient - QID accuchecks Assessment & Plan (06/08/2023 5:39 PM GLASSWORKER): Hgb1c 8.4% in 04/23, follows with endo [...] -SSI Assessment & Plan (08/24/2022 1:07 PM GLASSWORKER): -Home regimen metformin + Tresiba 35 units qAM and novolog 11 units with meals plus SSI -Continue basal bolus regimen, dose reduced while inpatient -Accuchecks Assessment & Plan (09/24/2021 12:38 AM CDT): Patient on PO hypoglycemics. Monitor on SSI. Assessment & Plan (06/09/2019 12:53 PM GLASSWORKER): Diet controlled. A1C at goal. On ARB. [...] 09/06/2015 Assessment & Plan (06/09/2019 12:49 PM GLASSWORKER): Nodule has not grown on interim imaging. Needs low dose dexamethasone suppression test annually x 5 years since initial evaluation given propensity of some adrenal nodules to become cortisol secreting overtime. Thyroid nodule 09/06/2015 Assessment & Plan (06/09/2019 12:48 PM GLASSWORKER): S/p FNA with benign cytology. Will repeat US in the spring to monitor biopsied thyroid nodule for growth. Multinodular goiter 05/10/2015 Hernia of abdominal wall 02/18/2015 Assessment & Plan (06/09/2019 12:54 PM GLASSWORKER): He will follow up with Dr. 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 Higgins in medical oncology [...] 02/23/2012 Assessment & Plan (08/26/2024 4:06 PM GLASSWORKER): continue home rosuvastatin consider resuming ASA Assessment & Plan (07/10/2024 10:44 PM GLASSWORKER): Cath in 10/2023 nonobstructive coronary artery disease [...] asthma Assessment & Plan (07/21/2023 2:06 AM GLASSWORKER): Follows with Dr. Nelson - Continue home Breo and PRN albuterol inhaler Assessment & Plan (06/07/2023 11:31 PM GLASSWORKER): Follows with Dr. Nelson in pulmonary -Continue home Breo and PRN albuterol inhaler Assessment & Plan (09/25/2022 1:41 AM CDT): -Continue home inhalers. Assessment & Plan (09/22/2022 11:00 AM CDT): Continue home inhalers. Assessment & Plan (08/21/2022 4:13 AM GLASSWORKER): -Symbicort replaced with formulary Breo Ellipta while [...] 08/23/2024 Assessment & Plan (08/22/2024 8:41 PM GLASSWORKER): Fevers + O2 requirement Aug 14, subsequently found to be positive for Influenza A and Coronavirus ([id number]). 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 S/p tamiflu, Linezolid (08/15-08/18), Cefepime (08/15- 08/17), Ciprofloxacin (08/08). Currently on RA. - supportive care Dysuria 07/25/2024 08/24/2024 Assessment & Plan (08/22/2024 10:12 PM GLASSWORKER): Now resolved. UA on admission with leuk [...] 07/25/2024 Assessment & Plan (07/29/2024 3:21 PM GLASSWORKER): Pt reports new burning pain around left axilla that wraps to the front of his chest. Notes he had this before and area began draining pus and had a foul odor - no erythema or rash noted -Us L axilla- no signs of any fluid collection or lymphadenopathy - already on gabapentin KRISTA (acute kidney injury) 07/24/2024 Assessment & Plan (08/02/2024 11:26 AM GLASSWORKER): Resolved - Baseline Cr 0.5. Cr on admission was 1.01 - Likely pre-renal due to diarrhea - improved with IVF Dehydration 07/24/2024 08/26/2024 Assessment & Plan (07/26/2024 12:35 PM GLASSWORKER): - due to diarrhea - s/p 1L IVF bolus in [facility] and maintenance IVF Diarrhea 07/19/2024 08/24/2024 Assessment & Plan (08/09/2024 2:16 PM GLASSWORKER): - P/w 1-day history of 7-8 episodes [...] resolved Assessment & Plan (07/20/2024 11:33 AM GLASSWORKER): - Developed after resolution of ileus. - C diff negative - Increased Creon back to home dose - Imodium prn - Hold Linzess until diarrhea resolved Abdominal pain 11/09/2023 08/25/2024 Assessment & Plan (08/11/2024 8:39 PM GLASSWORKER): Acute on chronic abdominal pain. Likely multifactorial, [...] hematemesis Assessment & Plan (07/14/2024 12:31 PM GLASSWORKER): Hx of pancreatic cancer s/p whipple presented initially to the [facility] with abd pain , nausea and left [...] NSAIDs Assessment & Plan (07/10/2024 9:32 PM GLASSWORKER): Hx of pancreatic cancer s/p whipple presented initially to the [facility] with abd pain , nausea and left [...] 08/24/2024 Assessment & Plan (08/11/2024 8:40 PM GLASSWORKER): Complained chest pain at left chest while [...] 08/01/2024 Assessment & Plan (08/01/2024 2:54 PM GLASSWORKER): -has ICD in place Assessment & Plan [...] 03/31/2025 Assessment & Plan (06/12/2023 3:47 PM GLASSWORKER): Presented with 3 days of fever, dry [...] 08/22/2024 Assessment & Plan (08/05/2024 11:42 PM GLASSWORKER): RESOLVED. DDx include viral infection vs transient [...] prn. Assessment & Plan (07/20/2024 11:30 AM GLASSWORKER): - Developed fever 38.4 C on 07/16 [...] which raise concern for an infectious syndrome -ESTHETICIAN/SKIN THERAPIST swab RPP negative -check blood cultures; hold [...] 10/28/2022 Assessment & Plan (08/24/2022 1:12 PM GLASSWORKER): Referred pancreatitis pain. 12 lead EKG shows no acute changes, baseline NSR with RBB and intrafascicular block. Trop negative. Elevated transaminase level 08/21/2022 10/28/2022 Assessment & Plan (08/24/2022 1:10 PM GLASSWORKER): First noted to have elevated alk phos, [...] 023 Assessment & Plan (08/22/2022 2:20 PM GLASSWORKER): Diagnosed as outpatient and started on fidaxomicin by ID 08/16/2022. Still with persistent diarrhea. -Continue fidaxomicin -ID following Pancreatic lesion 08/20/2022 10/28/2022 Overview (08/21/2022): Added automatically from request for surgery [id number] Assessment & Plan (08/24/2022 1:08 PM GLASSWORKER): S/P EUS wit FNA confirmed adenocarcinoma. 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 He will contact his reaming machine operator for plastic to follow up regarding this. Urinary incontinence 08/18/2018 023 Assessment & Plan (08/18/2018 1:22 AM GLASSWORKER): Continue with Myrbetriq and vesicare Polymorphic ventricular [...] 10/28/2022 Assessment & Plan (06/09/2019 12:47 PM GLASSWORKER): Congratulated on recent weight loss. Continue attention to diet, low carb, exercise as able. 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
--- OUTSIDE RECORDS SUMMARY | 2025-04-07 21:13 | XMS_ITS | Encounter Summary ---
Author Organization [facility] Address [address] [place] [address] Care Team Providers Care Center Medical Specialist Name Role Phone Kenton Ricks MD Primary Care Provider [phone] Encounter Details Date Type Department Care Team (Late st Contact Info) Description 10/06/2001 Outpatient [facility] [address] [place] [address]. 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 [id number] PCP - General Family Practice 11/15/18 documented as of this encounter
--- OUTSIDE RECORDS SUMMARY | 2025-04-07 21:13 | XMS_ITS | Clinical Summary ---
Author Organization [facility] Address [address] [place] [address] Care Team Providers Care Irrigation Installation Specialist Name Role Phone Kenton Ricks MD Primary Care Provider + [phone] Pebbles Nelson MD Unavailable [phone] Aylin Russ MD Unavailable [phone] Maricruz Ramirez NP Unavailable [phone] Joanne Lopez RN Unavailable Padmini Ben Walker MD PhD Unavailable [phone] Giovanna Alexis MD Unavailable Abby Higgins MD PhD Unavailable + Adrian Martinez MD Unavailable [phone] Vera Pérez Unavailable [phone] Jim Frausto MD Unavailable [phone] Allergies Active Allergy Reactions Criticality Noted Date [...] mg total) by mouth nightly Active multivit yudhhkje-ghos-JV- calcium (THERA-M) 9 mg iron-400 mcg tablet [...] 60 tablet 025 Active lidocaine (LIDODERM) 5 %Indications:Java Mobile Developer misty diarrhea Place 1 patch on the [...] 08/23/2024 Assessment & Plan (08/26/2024 3:51 PM DRIED YEAST SUPERVISOR): The patient reported left eye pain with [...] 08/11/2024 Assessment & Plan (08/26/2024 4:05 PM DRIED YEAST SUPERVISOR): Patient developed hematemesis on 08/11 with hypotension [...] 08/04/2024 Assessment & Plan (08/22/2024 10:54 PM DRIED YEAST SUPERVISOR): Started allopurinol this admission Moderate protein-calorie malnutrition [...] PPI Assessment & Plan (08/11/2024 8:44 PM DRIED YEAST SUPERVISOR): - Recent admission 07/10-07/20 for abd pain. [...] 07/16/2024 Assessment & Plan (07/20/2024 11:28 AM DRIED YEAST SUPERVISOR): - Resulted with Nystatin Anal fissure 11/21/2023 Assessment & Plan (01/15/2025 11:15 AM CDT): -Continue prn lidocaine OR and nifedipine ointment Assessment & Plan (01/14/2025 11:42 AM CDT): -Continue prn lidocaine OR and nifedipine ointment Assessment & Plan (01/13/2025 12:04 PM CDT): -Continue prn lidocaine OR and nifedipine ointment Assessment & Plan (01/13/2025 1:06 AM CDT): -Continue prn lidocaine OR and nifedipine ointment Assessment & Plan (12/10/2024 [...] topical CCB - cannot obtain her at [facility] Assessment & Plan (11/22/2024 12:07 PM CDT): - psyllium qAM, added miralax daily - Added lidocaine jelly qid prn - Sitz baths BID - Will try to start topical CCB - cannot obtain her at [facility] Assessment & Plan (11/21/2024 11:50 AM CDT): - psyllium qAM, added miralax daily - Added lidocaine jelly qid prn - Sitz baths BID - Will try to start topical CCB - cannot obtain her at [facility] Assessment & Plan (11/20/2024 11:11 [...] Plan (11/24/2024 9:17 AM CDT): -CPAP at [facility] Assessment & Plan (11/23/2024 9:48 AM CDT): -CPAP at [facility] Assessment & Plan (11/22/2024 12:07 PM CDT): -CPAP at [facility] Assessment & Plan (11/21/2024 11:50 AM CDT): -CPAP at [facility] Assessment & Plan (11/20/2024 11:11 AM CDT): -CPAP at [facility] Assessment & Plan (11/20/2024 1:34 AM CDT): [...] albuterol Assessment & Plan (08/26/2024 4:00 PM DRIED YEAST SUPERVISOR): Cont. breo ellipta, prn albuterol Iron deficiency [...] 07/25/2023 Assessment & Plan (07/26/2023 12:35 PM DRIED YEAST SUPERVISOR): - Likely multifactorial 2/2 malignancy, recent whipple, chemotherapy, and pain - Very poor PO intake - RD c/s - Started Mirtazapine - Dietary supplementation - Increased Creon as above Malaise 07/24/2023 Assessment & Plan (07/25/2023 2:16 PM DRIED YEAST SUPERVISOR): - RVP negative - Improving Kidney lesion 07/21/2023 Assessment & Plan (07/25/2023 2:21 PM DRIED YEAST SUPERVISOR): - Left renal cyst noted since at [...] prn Assessment & Plan (07/26/2023 12:33 PM DRIED YEAST SUPERVISOR): - Acute on chronic epigastric pain following [...] 07/09/2023 Assessment & Plan (07/24/2023 5:22 PM DRIED YEAST SUPERVISOR): - Replace per protocol Class 1 obesity due to exces s calories with serious comorbidity and body mass index (BMI) of 34.0 to 34.9 in adult 06/01/2023 H/O Whipple procedure 05/30/2023 Gastrointestinal hemorrhage 05/30/2023 Assessment & Plan (07/14/2024 12:30 PM DRIED YEAST SUPERVISOR): History of Postoperative GI bleed. EGD 05/09/23 [...] 02/05/2023 Assessment & Plan (07/21/2023 2:06 AM DRIED YEAST SUPERVISOR): Also has Hx of prostate cancer s/p prostatectomy. Takes gemtesa at home which is not on formulary - continue home oxybutynin and flomax Assessment & Plan (02/09/2023 3:46 PM CDT): Patient presented w/ low urine output and asymptomatic urinary retention, required straight cath in [facility], currently voiding and emptying appropriately [...] 11/21/2022 Assessment & Plan (08/26/2024 4:05 PM DRIED YEAST SUPERVISOR): The patient presented with elevated alkaline phosphatase [...] he is scheduled MRI in December at [facility] (requires cardiac monitoring due to ICD) - he is hoping to have this done sooner. Ileus 11/21/2022 Assessment & Plan (07/20/2024 11:29 AM DRIED YEAST SUPERVISOR): - KUB done 07/13 showing ileus without [...] 10/08/2022 Assessment & Plan (07/21/2023 2:04 AM DRIED YEAST SUPERVISOR): Diagnosed in August 2022, now s/p course of Eliquis. Presented with trace b/l lower ext edema, b/l erythema and mild tenderness which per patient is increased from baseline. Had similar presentation last hospitalization and LE duplex 06/07 was negative - CTM and consider rescanning if persistent Assessment & Plan (06/09/2023 4:47 PM DRIED YEAST SUPERVISOR): Hx of DVT in August 2022, he [...] of mets or infection and transferred from [facility] to [facility]. ID here with low concern for SCOUT LEASER infection. - CT neck/soft tissue with contrast: [...] due to ICD. Plan to transfer to [facility] for further evaluation w/ possible MRI brain and LP. Rash 09/23/2022 Assessment & Plan (06/12/2023 3:50 PM DRIED YEAST SUPERVISOR): - contact dermatitis? Not concerned about drug [...] to melisa skin necrosis. - transfer to [facility] for derm eval Anemia 09/22/2022 Assessment & Plan (07/26/2023 12:35 PM DRIED YEAST SUPERVISOR): Acute on chronic. 7.4 on admission. 5 [...] negative. Assessment & Plan (06/12/2023 3:46 PM DRIED YEAST SUPERVISOR): HGb 7, plt 94, wbc 1.4, abs [...] 09/22/2022 Assessment & Plan (07/26/2023 12:34 PM DRIED YEAST SUPERVISOR): Has Hx of ileus. On scheduled Linzess, Miralax and PRN Senna-Docusate at home. Patient states he's been having 4-5 soft stools daily - Increased Creon as above. Bowel regimen. Assessment & Plan (06/07/2023 11:26 PM DRIED YEAST SUPERVISOR): Continue home regimen of Linzess, Miralax and [...] (08/30/2022): Added automatically from request for surgery [id number] Assessment & Plan (10/15/2023 2:34 PM CDT): Hx of L axillary nodes on CT increased from prior study Should f/u with Dr. Chahal Assessment & Plan (10/13/2023 2:03 PM CDT): Hx of L axillary nodes on CT increased from prior study Should f/u with Dr. Chahal Assessment & Plan (07/26/2023 12:31 PM DRIED YEAST SUPERVISOR): - s/p whipple. Follows with Dr. Chahal [...] plan to hold of next cycle of [place]/Abraxane till infectious etiology is ruled out Assessment [...] plan to hold of next cycle of [place]/Abraxane till infectious etiology is ruled out Assessment [...] surveillance Assessment & Plan (08/26/2024 4:00 PM DRIED YEAST SUPERVISOR): s/p whipple with PV/SMV resection (04/2023) and neoadjuvant chemo (completed 08/2023). Most recent scan showed no evidence of disease recurrence Currently on surveillance with CA 19-[address] CAP every 3 months Assessment & Plan (07/10/2024 10:48 PM DRIED YEAST SUPERVISOR): Pancreatic cancer s/p Whipple with PV/SMV resection on 04/11/2023 s/p neoadjuvant tx, On surveillance OP follow up. Assessment & Plan (06/08/2023 5:32 PM DRIED YEAST SUPERVISOR): Pancreatic adenocarcinoma sp Whipple, now on Gemcitabine [...] 1 Assessment & Plan (08/25/2022 12:23 PM DRIED YEAST SUPERVISOR): Recurrent UTI followed by ID with scrotal [...] 06/09/2019 Assessment & Plan (06/09/2019 12:54 PM DRIED YEAST SUPERVISOR): He is agreeable to rescheduling the splenic [...] aldactone Assessment & Plan (07/14/2024 12:35 PM DRIED YEAST SUPERVISOR): HFpEF Euvolemic, normotensive On hold diuretics for now given pt NPO on IVF for ileus, will restart once able to take in po Assessment & Plan (06/11/2023 10:01 PM DRIED YEAST SUPERVISOR): ECHO 11/21 EF 69%, grade I diastolic [...] diet Assessment & Plan (08/24/2022 1:10 PM DRIED YEAST SUPERVISOR): Stable, continued torsemide, spironolactone Assessment & Plan (09/24/2021 12:42 AM CDT): Patient is feeling better. states legs have decreased by half. Continue with IV lasix. Continue to monitor Cr and lytes as we diurese. Holding torsemide. Continue aldactone with hold parameters. Assessment & Plan (08/18/2018 1:16 AM DRIED YEAST SUPERVISOR): Patient presented with increased shortness of breath [...] NPPV Assessment & Plan (08/26/2024 4:02 PM DRIED YEAST SUPERVISOR): continue nightly CPAP Assessment & Plan (07/21/2023 6:17 AM DRIED YEAST SUPERVISOR): Desaturations noted in the ED during sleep per on monitor while on RA (not recorded) - continue nightly BiPAP Assessment & Plan (06/07/2023 11:32 PM DRIED YEAST SUPERVISOR): Continue nightly BiPAP Assessment & Plan (03/18/2023 [...] 8:24 AM CDT): -resume home CPAP at [facility] Assessment & Plan (09/22/2022 3:17 AM CDT): -resume home CPAP at [facility] Assessment & Plan (08/24/2022 1:08 PM DRIED YEAST SUPERVISOR): - home CPAP machine use Assessment & Plan (09/24/2021 12:39 AM CDT): Patient has home NPPV which has been reordered. Assessment & Plan (08/18/2018 1:17 AM DRIED YEAST SUPERVISOR): Patient with a history of of bilateral diaphragmatic paralysis with central and obstructive sleep apnea. Restart CPAP Shortness of breath at rest 08/18/2018 Assessment & Plan (08/18/2018 1:27 AM DRIED YEAST SUPERVISOR): Patient with complex past medical history with [...] 07/26/2018 Assessment & Plan (08/26/2024 4:05 PM DRIED YEAST SUPERVISOR): H/o vtach s/p ICD 2013 EP consulted for MRCP earlier in admission. Patient's device is conditioned for MRI. Risk stratification: standard Assessment & Plan (07/10/2024 10:38 PM DRIED YEAST SUPERVISOR): History of ventricular tachycardia ICD in place Assessment & Plan (07/21/2023 2:11 PM DRIED YEAST SUPERVISOR): Follows with Dr. Nelson in EP for [...] Aug Assessment & Plan (06/11/2023 9:59 PM DRIED YEAST SUPERVISOR): Follows with Dr. Nelson in EP for history of VT s/p ICD. Denies any recent shocks, as per not there was unscheduled alarm this month due to RV lead impedance. Has outpatient appointment in August Outpatient follow up with EP Assessment & Plan (03/18/2023 1:23 AM CDT): Monitor. MRI conditional. If needs MRI, will need to go to [facility]. Assessment & Plan (02/05/2023 6:58 PM [...] ordered Assessment & Plan (08/18/2018 1:17 AM DRIED YEAST SUPERVISOR): Last device interrogation was in July of [...] s/p shoulder surgery. Follows with Dr. Russ ([facility]) as OP. On Symbicort at home. 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 Russ - c/w Breo-Ellipta Assessment & Plan (08/18/2018 1:17 AM DRIED YEAST SUPERVISOR): Continue with gabapentin Chronic heart failure with [...] PO Assessment & Plan (08/26/2024 4:06 PM DRIED YEAST SUPERVISOR): Volume down on admission due to diarrhea, now appear slightly volume up, likely I/s/o transfusions and held diuretics Continue to hold home torsemide and spironolactone for now, consider gently resuming prior to discharge Assessment & Plan (07/26/2023 12:34 PM DRIED YEAST SUPERVISOR): BLE edema with erythema noted on exam. [...] elevated at home, he can contact his PCP/forest science professor for further insulin adjustments. Assessment & [...] regimen Assessment & Plan (08/26/2024 4:05 PM DRIED YEAST SUPERVISOR): Last A1c 8.4. Home regimen: tresiba 45 units, novolog 12 units w/ breakfast and dinner, 8 units with lunch and sliding scale 1:50 > 150 Continue lantus 5 units qam + SSI Assessment & Plan (07/17/2024 2:29 PM DRIED YEAST SUPERVISOR): - On tresiba 24U Qam and Lispro [...] hdssi Assessment & Plan (07/26/2023 12:33 PM DRIED YEAST SUPERVISOR): Insulin dependant. Home regimen: Tresiba 42 units qam, Meal-time insulin 15u tid, SSI. Has had poor oral intake over last 2-3 weeks. He mentions his Stephen 2 sensor has been recording low sugars in 40s-50s overnight for 1 week - SSI inpatient - QID accuchecks Assessment & Plan (06/08/2023 5:39 PM DRIED YEAST SUPERVISOR): Hgb1c 8.4% in 04/23, follows with endo [...] -SSI Assessment & Plan (08/24/2022 1:07 PM DRIED YEAST SUPERVISOR): -Home regimen metformin + Tresiba 35 units qAM and novolog 11 units with meals plus SSI -Continue basal bolus regimen, dose reduced while inpatient -Accuchecks Assessment & Plan (09/24/2021 12:38 AM CDT): Patient on PO hypoglycemics. Monitor on SSI. Assessment & Plan (06/09/2019 12:53 PM DRIED YEAST SUPERVISOR): Diet controlled. A1C at goal. On ARB. [...] 09/06/2015 Assessment & Plan (06/09/2019 12:49 PM DRIED YEAST SUPERVISOR): Nodule has not grown on interim imaging. Needs low dose dexamethasone suppression test annually x 5 years since initial evaluation given propensity of some adrenal nodules to become cortisol secreting overtime. Thyroid nodule 09/06/2015 Assessment & Plan (06/09/2019 12:48 PM DRIED YEAST SUPERVISOR): S/p FNA with benign cytology. Will repeat US in the spring to monitor biopsied thyroid nodule for growth. Multinodular goiter 05/10/2015 Hernia of abdominal wall 02/18/2015 Assessment & Plan (06/09/2019 12:54 PM DRIED YEAST SUPERVISOR): He will follow up with Dr. 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 Higgins in medical oncology [...] 02/23/2012 Assessment & Plan (08/26/2024 4:06 PM DRIED YEAST SUPERVISOR): continue home rosuvastatin consider resuming ASA Assessment & Plan (07/10/2024 10:44 PM DRIED YEAST SUPERVISOR): Cath in 10/2023 nonobstructive coronary artery disease [...] asthma Assessment & Plan (07/21/2023 2:06 AM DRIED YEAST SUPERVISOR): Follows with Dr. Nelson - Continue home Breo and PRN albuterol inhaler Assessment & Plan (06/07/2023 11:31 PM DRIED YEAST SUPERVISOR): Follows with Dr. Nelson in pulmonary -Continue home Breo and PRN albuterol inhaler Assessment & Plan (09/25/2022 1:41 AM CDT): -Continue home inhalers. Assessment & Plan (09/22/2022 11:00 AM CDT): Continue home inhalers. Assessment & Plan (08/21/2022 4:13 AM DRIED YEAST SUPERVISOR): -Symbicort replaced with formulary Breo Ellipta while inpatient -Continue prn albuterol Assessment & Plan (09/24/2021 12:42 AM CDT): Continue breathing treatment. Resolved Problems Problem Noted Date Diagnosed Date Resolved Date Abdominal pain, generalized 01/12/2025 01/13/2025 Ventilator associated pneumonia 08/22/2024 08/22/2024 Acute hypoxemic respiratory failure 08/22/2024 08/23/2024 Assessment & Plan (08/22/2024 8:41 PM DRIED YEAST SUPERVISOR): Fevers + O2 requirement Aug 14, subsequently found to be positive for Influenza A and Coronavirus ([id number]-[id number]-10). 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 S/p tamiflu, Linezolid (08/15-08/18), Cefepime (08/15- 08/17), Ciprofloxacin (08/08). Currently on RA. - supportive care Dysuria 07/25/2024 08/24/2024 Assessment & Plan (08/22/2024 10:12 PM DRIED YEAST SUPERVISOR): Now resolved. UA on admission with leuk [...] 07/25/2024 Assessment & Plan (07/29/2024 3:21 PM DRIED YEAST SUPERVISOR): Pt reports new burning pain around left axilla that wraps to the front of his chest. Notes he had this before and area began draining pus and had a foul odor - no erythema or rash noted -Us L axilla- no signs of any fluid collection or lymphadenopathy - already on gabapentin KRISTA (acute kidney injury) 07/24/2024 Assessment & Plan (08/02/2024 11:26 AM DRIED YEAST SUPERVISOR): Resolved - Baseline Cr 0.5. Cr on admission was 1.01 - Likely pre-renal due to diarrhea - improved with IVF Dehydration 07/24/2024 08/26/2024 Assessment & Plan (07/26/2024 12:35 PM DRIED YEAST SUPERVISOR): - due to diarrhea - s/p 1L IVF bolus in [facility] and maintenance IVF Diarrhea 07/19/2024 08/24/2024 Assessment & Plan (08/09/2024 2:16 PM DRIED YEAST SUPERVISOR): - P/w 1-day history of 7-8 episodes [...] resolved Assessment & Plan (07/20/2024 11:33 AM DRIED YEAST SUPERVISOR): - Developed after resolution of ileus. - C diff negative - Increased Creon back to home dose - Imodium prn - Hold Linzess until diarrhea resolved Abdominal pain 11/09/2023 08/25/2024 Assessment & Plan (08/11/2024 8:39 PM DRIED YEAST SUPERVISOR): Acute on chronic abdominal pain. Likely multifactorial, [...] hematemesis Assessment & Plan (07/14/2024 12:31 PM DRIED YEAST SUPERVISOR): Hx of pancreatic cancer s/p whipple presented initially to the [facility] with abd pain , nausea [...] NSAIDs Assessment & Plan (07/10/2024 9:32 PM DRIED YEAST SUPERVISOR): Hx of pancreatic cancer s/p whipple presented initially to the [facility] with abd pain , nausea [...] 08/24/2024 Assessment & Plan (08/11/2024 8:40 PM DRIED YEAST SUPERVISOR): Complained chest pain at left chest while [...] 08/01/2024 Assessment & Plan (08/01/2024 2:54 PM DRIED YEAST SUPERVISOR): -has ICD in place Assessment & Plan [...] 03/31/2025 Assessment & Plan (06/12/2023 3:47 PM DRIED YEAST SUPERVISOR): Presented with 3 days of fever, dry [...] 08/22/2024 Assessment & Plan (08/05/2024 11:42 PM DRIED YEAST SUPERVISOR): RESOLVED. DDx include viral infection vs transient [...] prn. Assessment & Plan (07/20/2024 11:30 AM DRIED YEAST SUPERVISOR): - Developed fever 38.4 C on 07/16 [...] which raise concern for an infectious syndrome -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 swab RPP negative -check blood cultures; hold [...] 10/28/2022 Assessment & Plan (08/24/2022 1:12 PM DRIED YEAST SUPERVISOR): Referred pancreatitis pain. 12 lead EKG shows no acute changes, baseline NSR with RBB and intrafascicular block. Trop negative. Elevated transaminase level 08/21/2022 10/28/2022 Assessment & Plan (08/24/2022 1:10 PM DRIED YEAST SUPERVISOR): First noted to have elevated alk phos, [...] 023 Assessment & Plan (08/22/2022 2:20 PM DRIED YEAST SUPERVISOR): Diagnosed as outpatient and started on fidaxomicin by ID 08/16/2022. Still with persistent diarrhea. -Continue fidaxomicin -ID following Pancreatic lesion 08/20/2022 10/28/2022 Overview (08/21/2022): Added automatically from request for surgery [id number] Assessment & Plan (08/24/2022 1:08 PM DRIED YEAST SUPERVISOR): S/P EUS wit FNA confirmed adenocarcinoma. GI arranging oncology and surgical follow up as outpatient Urinary tract infection asso ciated with cystostomy catheter, initial encounter 04/09/2022 0 10/28/2022 Brugada syndrome 07/09/2020 09/10/2020 Cough in adult 06/09/2019 10/28/2022 Assessment & Plan (06/09/2019 12:52 PM DRIED YEAST SUPERVISOR): This appears to be chronic and persist despite switching from ACEI to ARB. He will contact his chronic specialist to follow up regarding this. Urinary incontinence 08/18/2018 023 Assessment & Plan (08/18/2018 1:22 AM DRIED YEAST SUPERVISOR): Continue with Myrbetriq and vesicare Polymorphic ventricular [...] 10/28/2022 Assessment & Plan (06/09/2019 12:47 PM DRIED YEAST SUPERVISOR): Congratulated on recent weight loss. Continue attention to diet, low carb, exercise as able. Palpitations 10/30/2012 10/28/2022 Disorder of lung 08/05/2012 10/28/2022 Narcolepsy 01/24/2012 10/28/2022 Abnormal blood chemistry level 01/19/2012 10/28/2022 Syncope 02/28/2011 10/28/2022 Encounter for preventive health examination 11/23/2010 10/28/2022 Encounters Date Type Department Care Team Description 04/07/2025 7:30 PM CDT Office Visit [facility] at [address] [address] Rick Alvarez NP Pain in left testicle (Primary Dx); Swelling of left testicle 03/31/2025 4:37 PM CDT - 04/03/2025 10:53 AM CDT Hospital Encounter [facility] [address] [id number] [place] [address] Matthias Laurent MD Baum, MD Phoenix Butcher Sonya Yannie, MD Martin, Jenaro Zuluaga MD Intractable chronic migraine without aura and without status migrainosus (Primary Dx); Neurofibromatosis, type 1 (HCC); Acute nonintractable headache, unspecified headache type; Leg weakness, bilateral Discharge Disposition: Discharge to home or self care 03/31/2025 Documentation [facility] [address] [place] [address] Mary Grady CMA 03/26/2025 10:30 AM CDT Telemedicine [facility] Genetics Department [address] [place] [phone] Flores Barnett CGC Pancreatic adenocarcinoma (HCC) (Primary Dx); Neurofibromatosis, type 1 (HCC); Family history of breast cancer; Family history of melanoma; Family history of thyroid cancer; Family history of adrenal cancer; Encounter for nonprocreative genetic counseling 03/26/2025 Telephone [facility] 8th [place] [address] [place] [phone] Nicki Conroy 03/23/2025 1:30 PM CDT Procedure visit [facility] [address] [facility] Floor [address] [place] [phone] Kemal Galvez MD Basal cell carcinoma (BCC) of right lower leg (Primary Dx) 03/18/2025 8:30 AM CDT Office Visit [facility] [address] [facility] [address] [place] [address] Gil Baldwin MD Chronic diastolic congestive heart failure (HCC) (Primary Dx); Coronary artery disease involving gulkana coronary artery of gulkana heart, unspecified whether angina present; Paroxysmal atrial fibrillation (HCC) 03/06/2025 Documentation [facility] Endocrinology Metabolism and Lipid [address] [facility] 13th [place] [address] [place] [address] Mirtha Escalona MD 02/28/2025 8:43 PM CDT - 03/05/2025 3:43 PM CDT Hospital Encounter [facility] [address] [address] [place] [address] Jorge L Garcia MD [place], MD Joan Farley, MD Jolie Haynes Tong, MD Fever, unspecified fever cause (Primary Dx); Encounter for post surgical wound check Discharge Disposition: Discharge to home or self care 02/28/2025 Telephone [facility] [address] [facility] [address] [place] [address] Melva Vo RN 02/25/2025 Results Follow-Up [facility] Dermatology [address] [facility] [address] [place] [phone] Kemal Galvez MD Surgical pathology 02/24/2025 Orders Only [facility] Pathology Outreach [address] [place] [address] Kemal Galvez MD Neoplasm of skin 02/23/2025 2:00 PM CDT Office Visit [facility] Dermat[facility] [address] [facility] [address] [place] [phone] Kemal Galvez MD Neoplasm of skin (Primary Dx); Neurofibroma; Neurofibromatosis, type 1 (HCC) 02/13/2025 Telephone [facility] [address] [facility] [address] [place] [phone] Oksana Faust, RN 02/06/2025 Telephone [facility] [address] [facility] 8th [place] [address] [place] [address] Pebbles Nelson MD 02/05/2025 1:36 PM CDT - 02/05/2025 11:59 PM CDT Hospital Encounter [facility] [address] [place] [address] Malignant neoplasm of pancreas, unspecified location of malignancy (HCC); Intractable pain Discharge Disposition: Discharge to home or self care 02/05/2025 Documentation [facility] Floor 5 [place] [address] Breanna Han RN 01/30/2025 Telephone [facility] Floor 5 [place] [address] Breanna Han RN 01/29/2025 Orders Only [facility] [address] [place] [address] Floor 5 [place] [id number] Ben Chahal MD PhD Malignant neoplasm of pancreas, unspecified location of malignancy (HCC) (Primary Dx); Intractable pain 01/26/2025 Documentation [facility] Office Building [address] [place] [address] Pebbles Nelson MD 01/23/2025 Results Follow-Up [facility] [address] [facility] [address], [address] [place] [address] Debbie Rolon, CONY MRI/MRCP (abdomen) W WO Contrast 01/22/2025 Orders Only [facility] Building [address] [place] [address] Pebbles Nelson MD 01/21/2025 9:27 AM CDT - 01/21/2025 11:59 PM CDT Hospital Encounter [facility] 1 [place] [address] Encounter for imaging to screen for metal prior to magnetic resonance imaging (MRI) Discharge Disposition: Discharge to home or self care 01/21/2025 7:48 AM CDT - 01/21/2025 11:59 PM CDT Hospital Encounter [facility] 1 [place] [address] scan, pelvis Discharge Disposition: Discharge to home or self care 01/21/2025 7:48 AM CDT - 01/21/2025 11:59 PM CDT Hospital Encounter [facility] 1 [place] [address] Encounter for imaging to screen for metal prior to magnetic resonance imaging (MRI) Discharge Disposition: Discharge to home or self care 01/21/2025 Documentation Cardiology Tati Patino 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 01/19/2025 3:00 PM CDT Office Visit [facility] [address] [place] [address] Floor 5 [place] [address] Ben Chahal MD PhD Pancreatic adenocarcinoma (HCC) (Primary Dx) 01/19/2025 2:00 PM CDT Clinical Support [facility] Floor 5 [place] [address] Pancreatic adenocarcinoma (HCC) 01/19/2025 1:45 PM CDT Lab [facility] - Lab Collection [address] [facility] Floor 5 [place] [address] Ben Chahal MD PhD Pancreatic adenocarcinoma (HCC) 01/19/2025 12:38 PM CDT - 01/19/2025 11:59 PM CDT Hospital Encounter [facility] - [place] [address] [facility] Floor 8 [place] [address] Pancreatic adenocarcinoma (HCC) Discharge Disposition: Discharge to home or self care 01/13/2025 Orders Only [facility] [address] [place] [address] Floor 5 [place] [address] Ben Chahal MD PhD Pancreatic adenocarcinoma (HCC) (Primary Dx) 01/12/2025 7:45 PM CDT - 01/15/2025 3:41 PM CDT Hospital Encounter [facility] [address] [address] [facility] [place] [address] Chaz Hernandez MD Heath, MD Regla Gonzalez, MD Tor Chung, Cb Ellsworth MD Abdominal pain, generalized (Primary Dx); Pigmented skin lesion; Acute on chronic abdominal pain Discharge Disposition: Discharge to home or self care 01/09/2025 Telephone [facility] G[facility] [address] [facility] 12th [place] [address] [place] [address] Afsaneh Whyte LPN Follow-up 01/06/2025 8:40 AM CDT Office Visit [facility] Endocrinology Metabolism and Lipid [address] [facility] Medical Office Building 4, [address] [place] [address] Margaret Balderas MD Type 2 diabetes mellitus [...] 02/22/2019 Surgical History Surgery Date Site/Laterality Comments OR TONSILLECTOMY PRIMARY/SECONDARY <AGE 12 07/02/1957 - 07/01/1958 [...] week 01/13/2025 How often do you attend [facility] or mormon services? More than 4 times per year 01/13/2025 Do you belong to any clubs o r organizations such as uatsdin groups, unions, fraternal or athletic groups, or [...] Date Recorded PHQ-2 Total Score 1 09/21/2024 [facility] - Occupational [...] place to sleep or slept in a assisted (including now)? No 11/12/2023 PHQ-9 Answer Date [...] any time in the past 12 m [facility], were you homeless or living in a assisted (including now)? No 01/13/2025 Social Connection and Isolation Panel Answer Date Recorded In a typical week, how many times do you talk on the phone with family, friends, or neighbors? More than three times a week 04/01/2025 How often do you get togethe r with friends or relatives? More than three times a week 04/01/2025 How often do you attend chur ch or mormon services? More than 4 times per year 04/01/2025 Do you belong to any clubs o r organizations such as uatsdin groups, unions, fraternal or athletic groups, or [...] any time in the past 12 m [facility], were you homeless or living in a assisted (including now)? No 04/01/2025 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 Obstetrics History Last Filed Vital Signs Vital [...] 07/25/2024, 08/21/2022 Medical Devices Implanted Type Area Billing Department Supervisor Device Identifier Shelf Expiration Date Model / Serial / Lot zumatek Inc Implant Cardiac Defibrillator Dual Chamber Dr Chaparro Mri Compatible Ilivia Huy [id number] - [id number] - [id number] Implanted:Qty: 1 on 10/10/2023 by Pebbles Nelson MD at [facility] ICD Left: Chest Wall Biotronik Inc [id number] 08/01/2025 [id number] / [id number] / Medtronic Bladder Lead [id number] Lead Pelvis Medtronic 576R0-7 8 / [id number] / Lead (Ra)-Setrox S S 53 Implanted:2013 by Pebbles Nelson MD (Quantity not on file) Lead Heart Biotronik 350 974 SETROX S S 53 / [id number] / Lead (Rv)-Linox Smart Sd 6518 Implanted:2013 by Pebbles Nelson MD (Quantity not on file) Lead Heart Biotronik 359 067 LINOX SMART SD 65 / [id number] / Medtronic Inc Tyrx Absorbable Antibacterial Envelope-Large 3.3x2.9in [id number] - [id number] - [id number] Implanted:Qty: 1 on 10/10/2023 by Pebbles Nelson MD at [facility] Other - see comments Left: Chest Wall Medtronic Inc 07/03/2024 [id number] / [id number] / [id number] Description:Antibacterial en velope Conmed Lei Viabil 8mm X 6cm Longwire [id number] - [id number] - [id number] Implanted:Qty: 1 on 12/15/2022 by Fede Das MD at [facility] Stent N/A: Bile Duct Conmed Lei 12/11/2024 [id number] / [id number] / [employer] Lei 8.5 Fr Nasal Biliary Catheter [id number] - [id number] Implanted:Qty: 1 on 04/25/2023 by Zuri Mera MD at [facility] Tube N/A: Jejunum [employer] Lei 04/02/2025 [id number] 40 / / [id number] Medtronic Interstim Bladder Stimulator 3058-03/26/2020 Implanted:2019 (Quantity not on file) Pelvis Medtronic [id number] / [id number] / Description:MRI compatable Use pt remote (menu MRI active) [employer] Lei Wallflex 8mm 8fr 60mm Rapid Exchange Delivery System Stent [id number] - [id number] Implanted:Qty: 1 on 09/08/2022 by Fede Das MD at [facility] N/A: Bile Duct [employer] Lei 03/21/2024 [id number] 10 / / [id number] Angio Dynamics Xcela Power Port 8fr [id number] - [id number] Implanted:Qty: 1 on 09/13/2022 at [facility] Angio Dynamics 04/19/2027 [id number] 270 / / [id number] [facility] Lei Supple [employer] [place] Processing 8x6cm Patch Cardiovascular [id number] - [id number] - [id number] Implanted:Qty: 1 on 04/11/2023 by Adrian Martinez MD at [facility] N/A: Superior Mesenteric Vein [employer] Lei [id number] 06/09/2027 [id number] / [id number] / [employer] Lei 8.5 Fr Nasal Biliary Catheter [id number] - [id number] Implanted:Qty: 1 on 05/01/2023 by Fede Das MD at [facility] Left: Nose [employer] Lei 12/18/2025 [id number] 40 / / [id number] Explanted Type Area Billing Department Supervisor Device Identifier Shelf Expiration Date Model / Serial / Lot Icd-Iforia 7 Elisa Implanted:Qty: 1 on 02/19/2014 by Pebbles Nelson MD Explanted:Qty: 1 on 10/10/2023 ICD Chest Biotronik [id number] IFSWEETIE 7 ELISA / [id number] / [employer] Lei 10fr 5cm Biliary Stent [id number] - [id number] Implanted:Qty: 1 on 08/22/2022 by Fede Das MD at [facility] Explanted:Qty: 1 on 09/08/2022 by Fede Das MD at [facility] N/A: Bile Duct [employer] Lei 01/27/2023 [id number] / / [id number] Procedures Procedure Name Priority Date/Time Associated Diagnosis [...] last revised on 2014. POC Device Number [id number] 1 DAVID PEOPLES Blood 04/03/2025 8:32 AM CDT 04/03/2025 8:32 AM CDT us Jenaro Villalobos MD LAB POCT ORDERABLES - DEVICE Final Result Performing Organization Address [facility] de Phone Number [facility] [address] [address] [facility] [employer] [place], [place] [phone] * (ABNORMAL) POCT glucose (04/02/2025 8:44 PM CDT) Glucose, POC 293(H) 70 - 199 mg/dL Comment: Interpretive Data Glucose is assumed to be non-fasting. Fasting Glucose reference ranges are: 0 - 150 years: 70 mg/dL - 99 mg/dL Current interpretive data was last revised on 2014. POC Device Number [id number] 4 DAVID PEOPLES Blood 04/02/2025 8:44 PM CDT 04/02/2025 8:44 PM CDT us Eugenie Garibay MD LAB POCT ORDERABLES - DEVICE Final Result Performing Organization Address [facility] Co de Phone Number [facility] [address] [facility] [employer] [place], [place] [id number] * POCT glucose (04/02/2025 6:46 PM CDT) Glucose, POC 187 70 - 199 mg/dL Comment: Interpretive Data Glucose is assumed to be non-fasting. Fasting Glucose reference ranges are: 0 - 150 years: 70 mg/dL - 99 mg/dL Current interpretive data was last revised on 2014. POC Device Number [id number] 4 DAVID SWEENEY Blood 04/02/2025 6:46 PM CDT 04/02/2025 6:46 PM CDT us Eugenie Garibay MD LAB POCT ORDERABLES - DEVICE Final Result Performing Organization Address [facility] Co de Phone Number [facility] [address] [facility] [employer] [place], [place] [id number] * POCT glucose (04/02/2025 5:32 PM CDT) [facility] Glucose, POC 141 70 - 199 mg/dL Comment: Interpretive Data Glucose is assumed to be non-fasting. Fasting Glucose reference ranges are: 0 - 150 years: 70 mg/dL - 99 mg/dL Current interpretive data was last revised on 2014. POC Device Number [id number] 4 DAVID SWEENEY Blood 04/02/2025 5:32 PM CDT 04/02/2025 5:32 PM CDT us Eugenie Garibay MD LAB POCT ORDERABLES - DEVICE Final Result Performing Organization Address [facility] de Phone Number [facility] [address] [place] [facility] [employer] [place], [place] [phone] * Lactate (04/02/2025 2:27 PM CDT) [facility] Lactate 1.5 0.7 - 2.0 mmol/L Blood 04/02/2025 2:27 PM CDT 04/02/2025 2:31 PM CDT Radha Thompson NP LAB BLOOD ORDERABLES Final Result Performing Organization Address [facility] Co de Phone Number [facility]ID [facility] [address] [facility] [place] [address] * eGFR (04/02/2025 2:27 PM CDT) [facility] eGFR >90 >=60 mL/min/1. 73 m2 [...] Thompson NP LAB BLOOD ORDERABLES Final Result [facility] [address] [facility]. Department [place] [address] * (ABNORMAL) Differential, auto (04/02/2025 2:27 PM CDT) Pathologist [facility] Neutrophil abs 3.45 1.50 - 6.50 K/cumm Imm gran abs 0.02 0.00 - 0.10 K/cumm [facility] Lymphocyte abs 0.76(L) 0.80 - 3.30 K/cumm [facility] Monocyte abs 0.45 0.20 - 0.80 K/cumm [facility] Eosinophil abs 0.16 0.00 - 0.50 K/cumm [facility] Basophil abs 0.04 0.00 - 0.10 K/cumm [facility] Neutrophil pct 70.7 % [facility] Comment: Interpretive Data Percent cell count [...] LAB BLOOD ORDERABLES Final Result [facility] [address] [facility]. Department [place] [address] * Pro B-type natriuretic peptide (04/02/2025 2:27 [...] as advanced age. - References: 1. Rush ORTEGA et.al. Eur Heart J. 2006:27:330-337. 2. Constantino RW, Naty HO. J. AM Anthony Cardiol: Cardiovasc Imag. 2009;2: 216- 225. Interpretive Data Last Revised Date: 2018. Blood 04/02/2025 2:27 PM CDT 04/02/2025 2:31 PM CDT Radha Thompson NP LAB BLOOD ORDERABLES Final Result [facility] [address] [facility]. Department [place] [address] * (ABNORMAL) CBC with auto differential (04/02/2025 2:27 PM CDT) Pathologist [facility] WBC 4.88 3.80 - 9.90 K/cumm Hgb 12.2(L) 13.0 - 17.5 g/dL DAVID W Hct 37.1(L) 38.9 - 50.3 % [facility] Plt 170 150 - 400 K/cumm [facility] MPV 10.3 9.1 - 12.3 fL [facility] RBC 4.54 4.30 - 5.80 M/cumm [facility] MCV 81.7 81.3 - 96.4 fL [facility] MCH 26.9(L) 27.1 - 33.3 pg [facility] MCHC 32.9 32.3 - 35.7 g/dL [facility] RDW CV 16.2(H) 11.1 - 14.9 % [facility] RDW SD 48.1 35.7 - 48.1 fL [facility] NRBC abs 0.00 0.00 - 0.01 K/cumm [facility] Blood 04/02/2025 2:27 PM CDT 04/02/2025 2:31 PM CDT Radha Thompson NP LAB BLOOD ORDERABLES Final Result [facility] [address] [facility] Department [place] [address] * (ABNORMAL) Comprehensive metabolic panel (04/02/2025 2:27 PM CDT) Sodium 133(L) 135 - 145 mmol/L Potassium, pl 3.7 3.3 - 4.9 mmol/L [facility] Chloride 96(L) 97 - 110 mmol/L [facility] CO2 26 22 - 32 mmol/L [facility] Anion gap 11 2 - 15 mmol/L [facility] BUN 18 6 - 25 mg/dL [facility] Creatinine 0.70(L) 0.80 - 1.30 mg/dL [facility] Glucose 198 70 - 199 mg/dL [facility] Comment: Interpretive Data Fasting glucose >/= [...] [facility] AST 28 10 - 50 Units/L [facility] Blood 04/02/2025 2:27 PM CDT 04/02/2025 2:31 PM CDT Radha Thompson NP LAB BLOOD ORDERABLES Final Result Performing Organization Address City/[facility]/ZIP Co de Phone Number [facility] [address] [facility] Department [place] [address] * ECG 12 lead (04/02/2025 2:02 PM CDT) 04/02/2025 2:02 PM CDT Narrative [facility] - 04/03/2025 4:18 PM CDT Vent Rate: 60 bpm RR Interval: 997 msec OR Interval: 273 msec QRS Duration: 169 msec QT Interval: 475 msec QTC Interval: 475 msec P-R-T [place]: 89 - 234 - 179 degrees 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 Fasting Glucose reference ranges are: 0 - 150 years: 70 mg/dL - 99 mg/dL Current interpretive data was last revised on 2014. POC Device Number [id number] 1 [facility] Blood 04/02/2025 11:5 1 AM CDT 04/02/2025 11:51 AM CDT us Eugenie Garibay MD LAB POCT ORDERABLES - DEVICE Final Result [facility] [address] [facility] [employer] [place] [address] * (ABNORMAL) POCT glucose (04/02/2025 8:48 AM CDT) Glucose, POC 221(H) 70 - 199 mg/dL Comment: Interpretive Data Glucose is assumed to be non-fasting. Fasting Glucose reference ranges are: 0 - 150 years: 70 mg/dL - 99 mg/dL Current interpretive data was last revised on 2014. POC Device Number [id number] 4 DAVID PEOPLES Blood 04/02/2025 8:48 AM CDT 04/02/2025 8:48 AM CDT us Eugenie Garibay MD LAB POCT ORDERABLES - DEVICE Final Result Performing Organization Address [facility] Co de Phone Number [facility] [address] [facility] [employer] [address] * POCT glucose (04/02/2025 2:02 AM CDT) Glucose, POC 158 70 - 199 mg/dL Comment: Interpretive Data Glucose is assumed to be non-fasting. Fasting Glucose reference ranges are: 0 - 150 years: 70 mg/dL - 99 mg/dL Current interpretive data was last revised on 2014. POC Device Number [id number] 4 DAVID PEOPLES Blood 04/02/2025 2:02 AM CDT 04/02/2025 2:02 AM CDT us Eugenie Garibay MD LAB POCT ORDERABLES - DEVICE Final Result Performing Organization Address [facility] Co de Phone Number [facility] [address] [facility] [place] [address] * POCT glucose (04/02/2025 12:46 AM CDT) Glucose, POC 138 70 - 199 mg/dL Comment: Interpretive Data Glucose is assumed to be non-fasting. Fasting Glucose reference ranges are: 0 - 150 years: 70 mg/dL - 99 mg/dL Current interpretive data was last revised on 2014. POC Device Number [id number] 1 DAVID PEOPLES Blood 04/02/2025 12:4 6 AM CDT 04/02/2025 12:46 AM CDT Eugenie Garibay MD LAB POCT ORDERABLES - DEVICE Final Result Performing Organization Address [facility] Phone Number [facility] [address] [facility] [employer] [address] * POCT glucose (04/01/2025 10:30 PM CDT) Glucose, POC 133 70 - 199 mg/dL Comment: Interpretive Data Glucose is assumed to be non-fasting. Fasting Glucose reference ranges are: 0 - 150 years: 70 mg/dL - 99 mg/dL Current interpretive data was last revised on 2014. POC Device Number [id number] 1 DAVID PEOPLES Blood 04/01/2025 10:3 0 PM CDT 04/01/2025 10:30 PM CDT Eugenie Garibay MD LAB POCT ORDERABLES - DEVICE Final Result Performing Organization Address [facility] de Phone Number [facility] [address] [place] [address] * POCT glucose (04/01/2025 7:30 PM CDT) Glucose, POC 183 70 - 199 mg/dL Comment: Interpretive Data Glucose is assumed to be non-fasting. Fasting Glucose reference ranges are: 0 - 150 years: 70 mg/dL - 99 mg/dL Current interpretive data was last revised on 2014. POC Device Number [id number] [facility] Blood 04/01/2025 7:30 PM CDT 04/01/2025 7:30 PM CDT Eugenie Garibay MD LAB POCT ORDERABLES - DEVICE Final Result Performing Organization Address [facility] de Phone Number [facility] [address] [facility]. [facility] [employer] [place], [place] [phone] * (ABNORMAL) POCT glucose (04/01/2025 6:29 PM CDT) Glucose, POC 405(H) 70 - 199 mg/dL Comment: Interpretive Data Glucose is assumed to be non-fasting. Fasting Glucose reference ranges are: 0 - 150 years: 70 mg/dL - 99 mg/dL Current interpretive data was last revised on 2014. POC Device Number [id number] 4 DAVID PEOPLES Blood 04/01/2025 6:29 PM CDT 04/01/2025 6:29 PM CDT us Eugenie Garibay MD LAB POCT ORDERABLES - DEVICE Final Result Performing Organization Address [facility] Phone Number [facility] [address] [facility]. [facility] [place] [address] * (ABNORMAL) POCT glucose (04/01/2025 4:41 PM CDT) Glucose, POC 313(H) 70 - 199 mg/dL Comment: Interpretive Data Glucose is assumed to be non-fasting. Fasting Glucose reference ranges are: 0 - 150 years: 70 mg/dL - 99 mg/dL Current interpretive data was last revised on 2014. POC Device Number [id number] 4 [facility] Blood 04/01/2025 4:41 PM CDT 04/01/2025 4:41 PM CDT us Eugenie Garibay MD LAB POCT ORDERABLES - DEVICE Final Result Performing Organization Address [facility] Co de Phone Number [facility] [address] [facility]. [facility] [place] [address] * POCT glucose (04/01/2025 11:32 AM CDT) Glucose, POC 164 70 - 199 mg/dL Comment: Interpretive Data Glucose is assumed to be non-fasting. Fasting Glucose reference ranges are: 0 - 150 years: 70 mg/dL - 99 mg/dL Current interpretive data was last revised on 2014. POC Device Number [id number] 4 DAVID PEOPLES Blood 04/01/2025 11:3 2 AM CDT 04/01/2025 11:32 AM CDT us Eugenie Garibay MD LAB POCT ORDERABLES - DEVICE Final Result Performing Organization Address [facility] de Phone Number [facility] [address] [facility] [employer] [place], [place] [address] * POCT glucose (04/01/2025 7:52 AM CDT) Glucose, POC 187 70 - 199 mg/dL Comment: Interpretive Data Glucose is assumed to be non-fasting. Fasting Glucose reference ranges are: 0 - 150 years: 70 mg/dL - 99 mg/dL Current interpretive data was last revised on 2014. POC Device Number [id number] 1 DAVID PEOPLES Blood 04/01/2025 7:52 AM CDT 04/01/2025 7:52 AM CDT us Eugenie Garibay MD LAB POCT ORDERABLES - DEVICE Final Result Performing Organization Address [facility] de Phone Number [facility] [address] [facility] [place] [address] * (ABNORMAL) POCT glucose (03/31/2025 10:21 PM CDT) Glucose, POC 234(H) 70 - 199 mg/dL Comment: Interpretive Data Glucose is assumed to be non-fasting. Fasting Glucose reference ranges are: 0 - 150 years: 70 mg/dL - 99 mg/dL Current interpretive data was last revised on 2014. POC Device Number [id number] 1 [facility]ID [facility] Blood 03/31/2025 10:2 1 PM CDT 03/31/2025 10:21 PM CDT Neeru Funk MD LAB POCT ORDERABLES - DEVICE Final Result Performing Organization Address City/State/ZIP Co ca Phone Number [facility] [address] [facility]. Department [place] [employer] [place] [address] * CT Lumbar Spine WO Contrast (03/31/2025 [...] signed by: Shabbir Jett M.D. Ivanna Chinchilla RI IMG XR PROCEDURES Final Res ult * [...] tendency for uric acid stone formation. Source: [employer] Current Interpretive Data was last revised on [...] microscopic UA and culture not met. [facility] Urine 03/31/2025 5:22 PM CDT 03/31/2025 5:26 PM CDT us Ivanna WAYNE LAB MICROBIOLOGY - GENERAL ORDERABLES Final Result [facility] [address] [facility]. Department [place] [address] * Influenza A/B, RSV, and COVID-19 PCR Nasopharyngeal (03/31/2025 3:04 PM CDT) COVID-19 RNA Negative Negative Influenza A RNA Negative Negative [facility] Influenza B RNA Negative Negative [facility] RSV RNA Negative Negative [facility] Comment: Testing performed by [facility]. This test is performed using the Next audience Xpert Xpress CoV-2/Flu/RSV plus assay. This is a multiplex, real-time reverse transcriptase PCR assay intended for the qualitative detection of nucleic acid from SARS-CoV-2, influenza A, influenza B, and respiratory syncytial virus. This assay has been cleared by the [place] Food and Drug administration. The performance characteristics have been verified by the [facility]. Results must be considered in the clinical context, and a negative result does not rule out infection. Interpretive Data last revised 2023 Nasopharyngeal 03/31/2025 3: 04 PM CDT 03/31/2025 3:08 PM CDT Narrative KRISTENPETAR VIRGENWCH - 03/31/2025 3:55 PM CDT Is the Patient experiencing symptoms consistent with COVID?->Yes us Ivanna WAYNE LAB MICROBIOLOGY - GENERAL ORDERABLES Final Result Performing Organization Address [facility] de Phone Number DAVID VIRGENCH [address] [employer] Department [employer] [place], [place] [phone] * eGFR (03/31/2025 3:04 PM CDT) eGFR [...] BLOOD ORDERABLES Final Result Performing Organization Address [facility] Co de Phone Number DAVID SWEENEYCH [address] [employer]. Department [place] [address] * (ABNORMAL) Differential, auto (03/31/2025 3:04 PM CDT) Neutrophil abs 6.81(H) 1.50 - 6.50 K/cumm Imm gran abs 0.04 0.00 - 0.10 K/cumm CERNER [facility] Lymphocyte abs 0.81 0.80 - 3.30 K/cumm CERNER [facility] Monocyte abs 0.93(H) 0.20 - 0.80 K/cumm CERNER [facility] Eosinophil abs 0.12 0.00 - 0.50 K/cumm [facility] Basophil abs 0.03 0.00 - 0.10 K/cumm [facility] Neutrophil pct 77.9 % [facility] Comment: Interpretive Data Percent cell count reference ranges are not reported, since discordance with absolute values may lead to misinterpretation of CBC data. Current Interpretive Data was last revised on 2017. Imm gran pct 0.5 % [facility] Comment: Interpretive Data Percent cell count reference ranges are not reported, since discordance with absolute values may lead to misinterpretation of CBC data. Current Interpretive Data was last revised on 2017. Lymphocyte pct 9.3 % [facility] Comment: Interpretive Data Percent cell count reference ranges are not reported, since discordance with absolute values may lead to misinterpretation of CBC data. Current Interpretive Data was last revised on 2017. Monocyte pct 10.6 % [facility] Comment: Interpretive Data Percent cell count reference ranges are not reported, since discordance with absolute values may lead to misinterpretation of CBC data. Current Interpretive Data was last revised on 2017. Eosinophil pct 1.4 % [facility] Comment: Interpretive Data Percent cell count reference ranges are not reported, since discordance with absolute values may lead to misinterpretation of CBC data. Current Interpretive Data was last revised on 2017. Basophil pct 0.3 % [facility] Comment: Interpretive Data Percent cell count reference ranges are not reported, since discordance with absolute values may lead to misinterpretation of CBC data. Current Interpretive Data was last revised on 2017. Blood 03/31/2025 3:04 PM CDT 03/31/2025 3:08 PM CDT us Ivanna WAYNE LAB BLOOD ORDERABLES Final Result DAVID VIRGENWCH [address] [facility]. Department [place] [address] * (ABNORMAL) CBC with auto differential (03/31/2025 3:04 PM CDT) WBC 8.74 3.80 - 9.90 K/cumm Hgb 12.2(L) 13.0 - 17.5 g/dL [facility] Hct 38.4(L) 38.9 - 50.3 % [facility] Plt 199 150 - 400 K/cumm [facility] MPV 11.1 9.1 - 12.3 fL [facility] RBC 4.57 4.30 - 5.80 M/cumm [facility] MCV 84.0 81.3 - 96.4 fL [facility] MCH 26.7(L) 27.1 - 33.3 pg [facility] MCHC 31.8(L) 32.3 - 35.7 g/dL [facility] RDW CV 16.6(H) 11.1 - 14.9 % [facility] RDW SD 50.6(H) 35.7 - 48.1 fL [facility] NRBC abs 0.00 0.00 - 0.01 K/cumm [facility] Blood Venous blood specimen / Unknown 03/31/2025 3:04 PM CDT 03/31/2025 3:08 PM CDT Ivanna WAYNE LAB BLOOD ORDERABLES Final Result [facility] [id number] [facility] [place] [employer] [place] [address] * (ABNORMAL) Hemoglobin A1c (03/31/2025 3:04 PM CDT) Pathologist [facility] Hgb A1C 8.2(H) 4.0 - 5.6 % Estimated Average Glucose 189 mg/dL [facility] Comment: The ADA recommends reporting an estimated Average Glucose (eAG) with all Hemoglobin A1c results using the equation derived from a study of 507 normal and diabetic adults. Minority populations were underrepresented and children were not included. (Diabetes Care 31:0261-9839, 2008). The eAG is not equivalent to a fasting glucose. Blood 03/31/2025 3:04 PM CDT 03/31/2025 3:08 PM CDT us Eugenie Garibay MD LAB BLOOD ORDERABLES Final R esult [facility] [address] [address] Department [place] [address] * (ABNORMAL) Comprehensive metabolic panel (03/31/2025 3:04 [...] BLOOD ORDERABLES Final Result Performing Organization Address [facility] Co de Phone Number DAVID VIRGENCH [address] [facility]. [facility] [place] [address] * (ABNORMAL) POCT glucose (03/05/2025 12:14 PM CDT) Glucose, POC 386(H) 70 - 199 mg/dL Comment: Interpretive Data Glucose is assumed to be non-fasting. Fasting Glucose reference ranges are: 0 - 150 years: 70 mg/dL - 99 mg/dL Current interpretive data was last revised on 2014. POC Device Number [id number] ADV[employer] PE[employer] Blood 03/05/2025 12:1 4 PM CDT 03/05/2025 12:14 PM CDT Jae Dave MD LAB POCT ORDERABLES - DEVICE Fin al Result Performing Organization Address [facility] Phone Number DAVID VIRGENWCH [address] [employer] [place] [address] * POCT glucose (03/05/2025 8:54 AM CDT) Glucose, POC 146 70 - 199 mg/dL Comment: Interpretive Data Glucose is assumed to be non-fasting. Fasting Glucose reference ranges are: 0 - 150 years: 70 mg/dL - 99 mg/dL Current interpretive data was last revised on 2014. POC Device Number [id number] DAVID PEOPLES Blood 03/05/2025 8:54 AM CDT 03/05/2025 8:54 AM CDT Jae Dave MD LAB POCT ORDERABLES - DEVICE Fin al Result Performing Organization Address [facility] Co de Phone Number DAVID BJWCH [address] [facility]. Department [place] [address] * US LEONOR (03/05/2025 5:37 AM CDT) [...] LAB BLOOD ORDERABLES Final Result DAVID VIRGENCH [address] [facility]. Department [place] [address] * (ABNORMAL) Differential, auto (03/05/2025 [...] MD LAB BLOOD ORDERABLES Final Result [facility] [address] [facility]. Department [place] [address] * (ABNORMAL) CBC with auto differential (03/05/2025 3:59 AM CDT) WBC 3.76(L) 3.80 - 9.90 K/cumm Hgb 10.4(L) 13.0 - 17.5 g/dL [facility] Hct 32.9(L) 38.9 - 50.3 % [facility] Plt 118(L) 150 - 400 K/cumm [facility] MPV 10.4 9.1 - 12.3 fL [facility] RBC 3.99(L) 4.30 - 5.80 M/cumm [facility] MCV 82.5 81.3 - 96.4 fL [facility] MCH 26.1(L) 27.1 - 33.3 pg [facility] MCHC 31.6(L) 32.3 - 35.7 g/dL [facility] RDW CV 16.2(H) 11.1 - 14.9 % [facility] RDW SD 49.4(H) 35.7 - 48.1 fL [facility] NRBC abs 0.00 0.00 - 0.01 K/cumm [facility] Blood 03/05/2025 3:59 AM CDT 03/05/2025 4:03 AM CDT Rosa Camp MD LAB BLOOD ORDERABLES Final Result DAVID PEOPLES [address] [facility]. Department [place] [address] * (ABNORMAL) Comprehensive metabolic panel (03/05/2025 3:59 AM CDT) Sodium 140 135 - 145 mmol/L Potassium, pl 3.9 3.3 - 4.9 mmol/L [facility] Chloride 106 97 - 110 mmol/L [facility] CO2 24 22 - 32 mmol/L [facility] Anion gap 10 2 - 15 mmol/L [facility] BUN 14 6 - 25 mg/dL [facility] Creatinine 0.70(L) 0.80 - 1.30 mg/dL [facility] Glucose 206(H) 70 - 199 mg/dL [facility] Comment: Interpretive Data Fasting glucose >/= [...] LAB BLOOD ORDERABLES Final Result DAVID PEOPLES [address] [facility]. Department [place] [address] * (ABNORMAL) POCT glucose (03/04/2025 8:41 PM CDT) [facility] Signature Glucose, POC 299(H) 70 - 199 mg/dL Comment: Interpretive Data Glucose is assumed to be non-fasting. Fasting Glucose reference ranges are: 0 - 150 years: 70 mg/dL - 99 mg/dL Current interpretive data was last revised on 2014. POC Device Number [id number] CERNER [facility] Blood 03/04/2025 8:41 PM CDT 03/04/2025 8:41 PM CDT Jae Dave MD LAB POCT ORDERABLES - DEVICE Fin al Result Performing Organization Address [facility] de Phone Number DAVID VIRGENCH [address] [facility]. [facility] [employer] [place], [place] [id number] * POCT glucose (03/04/2025 4:42 PM CDT) Glucose, POC 191 70 - 199 mg/dL Comment: Interpretive Data Glucose is assumed to be non-fasting. Fasting Glucose reference ranges are: 0 - 150 years: 70 mg/dL - 99 mg/dL Current interpretive data was last revised on 2014. POC Device Number [id number] DAVID VIRGENWCH Blood 03/04/2025 4:42 PM CDT 03/04/2025 4:42 PM CDT Jae Dave MD LAB POCT ORDERABLES - DEVICE Fin al Result Performing Organization Address [facility] Phone Number DAVID VIRGENCH [address] [facility]. [facility] [place] [address] * (ABNORMAL) POCT glucose (03/04/2025 12:22 PM CDT) Glucose, POC 216(H) 70 - 199 mg/dL Comment: Interpretive Data Glucose is assumed to be non-fasting. Fasting Glucose reference ranges are: 0 - 150 years: 70 mg/dL - 99 mg/dL Current interpretive data was last revised on 2014. POC Device Number [id number] DAVID VIRGENWCH Glucose comment 1 RN/MD Notified DAVID PEOPLES Blood 03/04/2025 12:2 2 PM CDT 03/04/2025 12:22 PM CDT Jae Dave MD LAB POCT ORDERABLES - DEVICE Fin al Result Performing Organization Address [facility] de Phone Number DAVID BJWCH [address] [facility]. [facility] [employer] [place], [place] [id number] * POCT glucose (03/04/2025 7:57 AM CDT) Glucose, POC 150 70 - 199 mg/dL Comment: Interpretive Data Glucose is assumed to be non-fasting. Fasting Glucose reference ranges are: 0 - 150 years: 70 mg/dL - 99 mg/dL Current interpretive data was last revised on 2014. POC Device Number [id number] DAVID [facility] Blood 03/04/2025 7:57 AM CDT 03/04/2025 7:57 AM CDT us Jae Dave MD LAB POCT ORDERABLES - DEVICE Fin al Result Performing Organization Address City/[facility]/ZIP Co de Phone Number DAVID VIRGENCH [address] [facility] [place] [address] * eGFR (03/04/2025 5:05 AM CDT) eGFR [...] LAB BLOOD ORDERABLES Final Result DAVID PEOPLES [address] [address] Department [place] [address] * (ABNORMAL) Differential, auto (03/04/2025 5:05 AM [...] on 2017. Lymphocyte pct 15.1 % [facility]ID [facility] Comment: Interpretive Data Percent cell count [...] on 2017. Eosinophil pct 8.6 % [facility] Comment: Interpretive Data Percent cell count reference ranges are not reported, since discordance with absolute values may lead to misinterpretation of CBC data. Current Interpretive Data was last revised on 2017. Basophil pct 0.3 % [facility]ID [facility] Comment: Interpretive Data Percent cell count reference ranges are not reported, since discordance with absolute values may lead to misinterpretation of CBC data. Current Interpretive Data was last revised on 2017. Blood 03/04/2025 5:05 AM CDT 03/04/2025 5:14 AM CDT Rosa Camp MD LAB BLOOD ORDERABLES Final Result DAVID PEOPLES [address] [employer] [place], [place] [id number] * (ABNORMAL) CBC with auto differential (03/04/2025 5:05 AM CDT) WBC 3.72(L) 3.80 - 9.90 K/cumm Hgb 10.5(L) 13.0 - 17.5 g/dL [facility] Hct 34.4(L) 38.9 - 50.3 % [facility] Plt 113(L) 150 - 400 K/cumm [facility] MPV 10.7 9.1 - 12.3 fL [facility] RBC 4.11(L) 4.30 - 5.80 M/cumm [facility] MCV 83.7 81.3 - 96.4 fL [facility] MCH 25.5(L) 27.1 - 33.3 pg [facility] MCHC 30.5(L) 32.3 - 35.7 g/dL [facility] RDW CV 16.7(H) 11.1 - 14.9 % [facility] RDW SD 51.2(H) 35.7 - 48.1 fL [facility] NRBC abs 0.00 0.00 - 0.01 K/cumm [facility] Blood 03/04/2025 5:05 AM CDT 03/04/2025 5:14 AM CDT Rosa Camp MD LAB BLOOD ORDERABLES Final Result Performing Organization Address City/[facility]/ZIP Co de Phone Number DAVID PEOPLES [address] [address] [facility] [employer] [place] [address] * (ABNORMAL) Comprehensive metabolic panel (03/04/2025 5:05 [...] MD LAB BLOOD ORDERABLES Final Result DAVID SWEEENY [address] [facility] [employer] [place], [place] [phone] * (ABNORMAL) POCT glucose (03/03/2025 8:51 PM CDT) Glucose, POC 211(H) 70 - 199 mg/dL Comment: Interpretive Data Glucose is assumed to be non-fasting. Fasting Glucose reference ranges are: 0 - 150 years: 70 mg/dL - 99 mg/dL Current interpretive data was last revised on 2014. POC Device Number [id number] DAVID VIRGENW Blood 03/03/2025 8:51 PM CDT 03/03/2025 8:51 PM CDT Jae Dave MD LAB POCT ORDERABLES - DEVICE Fin al Result Performing Organization Address [facility] de Phone Number [facility] [address] [facility] [employer] [place], [place] [phone] * POCT glucose (03/03/2025 5:12 PM CDT) Glucose, POC 168 70 - 199 mg/dL Comment: Interpretive Data Glucose is assumed to be non-fasting. Fasting Glucose reference ranges are: 0 - 150 years: 70 mg/dL - 99 mg/dL Current interpretive data was last revised on 2014. POC Device Number [id number] [facility] Blood 03/03/2025 5:1 2 PM CDT 03/03/2025 5:12 PM CDT Jae Dave MD LAB POCT ORDERABLES - DEVICE Fin al Result Performing Organization Address [facility] de Phone Number [facility] BJWCH [address] [facility] [employer] [place], [place] [phone] * Histoplasma Antigen Urine (03/03/2025 3:18 PM CDT) Histo/Blasto Ag Value Not Detected ng/mL [facility] Comment: ADDITIONAL INFORMATION This test was developed and its performance characteristics determined by [facility] in a manner consistent with CLIA requirements. This test has not been cleared or approved by the U.S. Food and Drug Administration. Test Performed by: [facility] [place] [address] [employer]: Ana Plascencia Ph.D.; CLIA# [id number] Histo/Blasto Ag Result Not Detected Not Detected DAVID PEOPLES Comment: No antigen from Histoplasma or Blastomyces detected. False negative results may occur depending on extent of disease, and/or site of infection. Repeat testing on a new specimen if clinically indicated. Urine 03/03/2025 3:18 PM CDT 03/03/2025 3:35 PM CDT Bianka WAYNE LAB MICROBIOLOGY - GENERAL ORDERABLES Final Result [facility]STENPETAR [facility] [address] [facility]. Department [place] [address] [facility] * Q fever ab w rflx to immunofluorescence Blood (03/03/2025 3:04 PM CDT) Q fever ab scrn w titer rflx ser Negative Negative [facility] Comment: No antibodies to Q Fever (Coxiella burnetii) detected. Repeat testing on a new sample collected in 2-3 weeks if acute Q Fever is suspected. ADDITIONAL INFORMATION This test was developed and its performance characteristics determined by [facility] in a manner consistent with CLIA requirements. This test has not been cleared or approved by the U.S. Food and Drug Administration. Test Performed by: [facility] [place] [address] [employer] Maker: Ana Plascencia Ph.D.; CLIA# [id number] Blood 03/03/2025 3:04 PM CDT 03/03/2025 3:22 PM CDT Bianka WAYNE LAB MICROBIOLOGY - GENERAL ORDERABLES Final Result Performing Organization Address [facility] Co de Phone Number DAVID BJWCH [address] [facility]. Department [place] [address] [facility] * (ABNORMAL) Histoplasma Antibody Blood (03/03/2025 3:04 PM CDT) Histoplasma Ab, yeast CF 1:16(A) Negative [facility] Histoplasma Ab, Immunodiffusion Negative Negative DAVID BJWCH Comment: Test Performed by: [place] [address] [employer]: Ana Plascencia Ph.D.; CLIA# [id number] Blood 03/03/2025 3:04 PM CDT 03/03/2025 3:22 PM CDT Bianka WAYNE LAB MICROBIOLOGY - GENERAL ORDERABLES Final Result Performing Organization Address [facility] Co de Phone Number DAVID BJWCH [address] [facility]. Department [place] [address] [facility] * Cytomegalovirus (CMV) DNA PCR, quantitative Blood (03/03/2025 3:04 PM CDT) Pathologist [facility] CMV DNA Not Detected [facility] Comment: Interpretive Data: The quantifiable range of this assay is 34 IUnits/mL to 10,000,000 IUnits/mL (1.53 log IUnits/mL to 7.0 log IUnits/mL). Testing was performed by the BREN[facility] 6800 CMV Test ([employer] Testing performed at [facility]. Current interpretive data was last revised on 2021. Testing performed by: [facility], [address] [facility], [place]., [address] Blood 03/03/2025 3:04 PM CDT 03/03/2025 7:06 PM CDT Bianka WAYNE LAB MICROBIOLOGY - GENERAL ORDERABLES Final Result DAVID [facility] [address] [address] Department [place] [address] [facility] * Hepatitis panel, acute Blood (03/03/2025 3:04 PM CDT) Hep A IgM Nonreactive Nonreactive Comment: Interpretive Data: If Hep A IgM Ab is reported as Equivocal, a new sample should be drawn in two weeks for testing. Current interpretive data was last revised on 19. Testing performed by: [facility], [address] [place] [address]., [id number] Hep B core IgM Nonreactive Nonreactive DAVID [facility] Comment: Interpretive Data If HepB Core IgM Ab is reported as Equivocal, a new sample should be drawn in two weeks for testing. Current interpretive data was last revised on 19. Testing performed by: [facility], [address] [place] [address]., [id number] Hep C Ab Nonreactive Nonreactive DAVID SWEENEY [...] last revised on 2019. Testing performed by: [facility], [address] [place] [address]., [address] HepBsAg Nonreactive Nonreactive [facility]ID [facility] Comment:Testing performed by : [facility], [address] [place] [address]., [id number] Blood 03/03/2025 3:04 PM CDT 03/03/2025 5:07 PM CDT Bianka WAYNE LAB MICROBIOLOGY - GENERAL ORDERABLES Final Result Performing Organization Address [facility] Co de Phone Number DAVID VIRGENWCH [address] [facility] [place] [address] * Blood culture Blood (03/03/2025 3:04 PM CDT) Report Final Report: No growth Comment:Testing performed by : [facility], [address] [place] [address]., [id number] Blood 03/03/2025 3:04 PM CDT 03/03/2025 4:44 [...] organism identification may be performed using the Life800 Blood Culture Identification panel. This assay detects microbial DNA in a blood culture broth. This assay has been cleared by the [place] Food and Drug Administration and its performance characteristics have been verified by the [facility]. Interpretive data was last revised on August 03, 2022. Bianka WAYNE LAB MICROBIOLOGY - GENERAL ORDERABLES Final Result Performing Organization Address [facility] Co de Phone Number DAVID VIRGENWCH [address] [address] [facility] [employer] [place] [address] * Cindy-Zaman Virus (EBV) DNA Quantitative Blood (03/03/2025 3:03 PM CDT) EBV DNA Result Not Detected [facility] Comment: Interpretive Data The quantifiable range of this assay is 35 IUnits/mL to 100,000,000 IUnits/mL (1.54 log IUnits/mL to 8.0 log IUnits/mL). Testing was performed by the BREN[facility] 6800 EBV Test ([employer] Testing performed at [facility]. Current interpretive data was last revised on 2022. Testing performed by: [facility], [address] [place]., [address] Blood 03/03/2025 3:03 PM CDT 03/03/2025 7:05 PM CDT Bianka WAYNE LAB MICROBIOLOGY - GENERAL ORDERABLES Final Result DAVID [facility] [address] [facility] [place] [address] [facility] * Ehrlichia and Anaplasma PCR Blood (03/03/2025 3:03 PM CDT) Pathologist [facility] Ehrlichia species DNA Not Detected Not Detected [facility] Comment:Testing performed by : [facility], [address] [place] [address]., [id number] Anaplasma Phagocytophilum DNA Not Detected Not Detected [...] Food and Drug Administration. Testing performed by: [facility], [address] [place] [address]., [id number] Blood 03/03/2025 3:03 PM CDT 03/03/2025 7:05 PM CDT Bianka WAYNE LAB MICROBIOLOGY - GENERAL ORDERABLES Final Result DAVID BJWCH [address] [facility] [place] [address] [facility] * Blastomyces antibody, EIA, serum Blood (03/03/2025 3:00 PM CDT) Pathologist [facility] Blastomyces Antibody Negative Negative [facility] Comment: A single negative result does not exclude the diagnosis of blastomycosis. Repeat testing on a new sample in 7-14 days if clinically indicated. Test Performed by: [place] [address] [employer] Maker: Ana Plascencia Ph.D.; CLIA# [id number] Blood 03/03/2025 3:00 PM CDT 03/03/2025 3:22 PM CDT Bianka WAYNE LAB MICROBIOLOGY - GENERAL ORDERABLES Final Result Performing Organization Address City/[facility] Co de Phone Number [employer] [address] [place] [address] [facility] * (ABNORMAL) Rickettsia rickettsii antibodies Blood (03/03/2025 3:00 PM CDT) [facility] Spotted Fever Group Antibody, IgG 1:64(A) <1:64 [facility] Comment: Single IgG serum endpoint [...] Fever Group Antibody, IgM <1:64 <1:64 [facility]ID [facility] Comment: No antibody detected. Test Performed by: [place] [address] [employer] Maker: Ana Plascencia Ph.D.; CLIA# [id number] Blood 03/03/2025 3:00 PM CDT 03/03/2025 3:57 PM CDT Bianka WAYNE LAB MICROBIOLOGY - GENERAL ORDERABLES Final Result [facility] [id number] [employer] [facility] [place] [address] [place] [facility] * HIV 1/2 Antibody plus p24 Antigen Blood (03/03/2025 3:00 PM CDT) [facility] HIV 1/2 ab + p24 ag Nonreactive Nonreactive Comment: Nonreactive for HIV-1 antigen and HIV-1/HIV-2 antibodies. No laboratory evidence of HIV infection. If acute HIV infection is suspected, consider testing for HIV-1 RNA. Testing performed by: [facility], [address] [place] [address]., [id number] Blood 03/03/2025 3:00 PM CDT 03/03/2025 5:07 PM CDT Bianka WAYNE LAB MICROBIOLOGY - GENERAL ORDERABLES Final Result [facility] [address] [facility]. [facility] [place] [address] * (ABNORMAL) Cindy-Zaman virus (EBV) antibody panel Blood (03/03/2025 3:00 PM CDT) [facility] EBV nuclear Ab Positive(A) Negative Comment: Indicates the presence of detectable IgG antibody to EBV Nuclear Antigen. Testing performed by: [facility], [address] [place] [address]., [id number] EBV VCA IgG Positive(A) Negative DAVID PEOPLES Comment: Indicates the presence of antibody; 90% of the adult population will have been infected with EBV sometime in the past. Testing performed by: [facility], [address] [place]., [address] EBV VCA IgM Negative Negative DAVID PEOPLES Comment: No detectable IgM antibody to EBV-VCA. A negative result indicates no current infection with EBV. If clinical suspicion of acute EBV infection is present, testing should be repeated after one week. Testing performed by: [facility], [address] [place] [address]., [id number] EBV interp Past Infection DAVID PEOPLES Comment:Testing performed by : [facility], [address] [facility], [place]., [address] Blood 03/03/2025 3:00 PM CDT 03/03/2025 6:55 PM CDT Bianka WAYNE LAB MICROBIOLOGY - GENERAL ORDERABLES Final Result Performing Organization Address City/[facility] Co de Phone Number DAVID SWEENEYCH [address] [address] [employer] [place], [place] [id number] * Bartonella antibody panel Blood (03/03/2025 3:00 PM CDT) [facility] B Henselae, IgG <1:128 <1:128 titer [facility] ref [facility] B Henselae, IgM <1:20 <1:20 titer [facility]OP[facility] B. Orellana, IgG <1:128 <1:128 titer [facility] SWEENEY B. Orellana, IgM <1:20 <1:20 titer DAVID VIRGENWCH Comment: ADDITIONAL INFORMATION This test was developed and its performance characteristics determined by [facility] in a manner consistent with CLIA requirements. This test has not been cleared or approved by the U.S. Food and Drug Administration. Test Performed by: [facility] [place] [id number] [employer] Tile Maker: Ana Plascencia Ph.D.; CLIA# [id number] Blood 03/03/2025 3:00 PM CDT 03/03/2025 3:22 PM CDT Bianka WAYNE LAB MICROBIOLOGY - GENERAL ORDERABLES Final Result DAVID VIRGENWCH [address] [facility] [employer] [place] [address] [facility] Lab * Cryptococcal Antigen, Serum Blood (03/03/2025 3:00 PM CDT) Cryptococcus ag, Serum Negative Negative Comment:Testing performed by : [facility], [address] [place] [address]., [id number] Blood 03/03/2025 3:00 PM CDT 03/03/2025 5:44 PM CDT Bianka WAYNE LAB MICROBIOLOGY - GENERAL ORDERABLES Final Result Performing Organization Address [facility] de Phone Number [facility] BJCH [address] [employer]. [employer] [place] [address] * Blood culture Blood (03/03/2025 3:00 PM CDT) Report Final Report: No growth Comment:Testing performed by : [facility], [address] [place] [address]., [id number] Blood 03/03/2025 3:00 PM CDT 03/03/2025 4:44 PM CDT Narrative DAVID BJWCH - 03/09/2025 7:00 AM CDT Collection->Peripheral [...] organism identification may be performed using the Life800 Blood Culture Identification panel. This assay detects microbial DNA in a blood culture broth. This assay has been cleared by the [place] Food and Drug Administration and its performance characteristics have been verified by the [facility]. Interpretive data was last revised on August 03, 2022. Bianka WAYNE LAB MICROBIOLOGY - GENERAL ORDERABLES Final Result Performing Organization Address [facility] Co de Phone Number DAVID BJWCH [address] [employer]. 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 Mild-moderate aortic valve regurgitation. 5. Qrru-yr-curv views of AV, MV & TV and of RV device without suspicion of vegetation. COMPARISONS: On [id number] comparision with prior TTE on 08/15/24, the [...] Note De Khushi Brennan MD - 03/03/2025 [facility] [place] [address] Transthoracic Echocardiographic Report Patient Name: RAH HENSON M : 1955 (69y 11m) Gender: M Study Date: 03/03/2025 01:38:47 PM Ht(Inch): 69 Wt(Lb): 218.03 BSA: 2.19 Corporate Director Of Human Resources: RAVEN Location: [id number] Order Provider: BIANKA MCLAUGHLIN Heart Rate: 60 [...] aortic valve leaflets. Mild-moderate aortic valveregurgitation. 5. Pqwx-sx-fdux views of AV, MV & TV and of RV device without suspicion ofvegetation. COMPARISONS: On xmtt-uu-hyqq comparision with prior TTE on 08/15/24, the [...] [ 16.00 - 34.00 ] MV Decel Prrs398.43 msec [ 104.00 - 258.00 ] RV [...] * POCT glucose (03/03/2025 12:01 PM CDT) [facility] Glucose, POC 179 70 - 199 mg/dL Comment: Interpretive Data Glucose is assumed to be non-fasting. Fasting Glucose reference ranges are: 0 - 150 years: 70 mg/dL - 99 mg/dL Current interpretive data was last revised on 2014. POC Device Number [id number] 4 DAVID VIRGENWCH Blood 03/03/2025 12:0 1 PM CDT 03/03/2025 12:01 PM CDT Jae Dave MD LAB POCT ORDERABLES - DEVICE Fin al Result DAVID BJWCH [address] [facility]. Department [place] [address] * US Vein Duplex Lower Extremity Bilateral [...] signed by: Shabbir Jett M.D. Bianka WAYNE [facility] US PROCEDURES Final Result * POCT glucose (03/03/2025 8:58 AM CDT) [facility] Signature Glucose, POC 124 70 - 199 mg/dL Comment: Interpretive Data Glucose is assumed to be non-fasting. Fasting Glucose reference ranges are: 0 - 150 years: 70 mg/dL - 99 mg/dL Current interpretive data was last revised on 2014. POC Device Number [id number] [address] [place] [address] Blood 03/03/2025 8:58 AM CDT 03/03/2025 8:58 AM CDT Jae Dave MD LAB POCT ORDERABLES - DEVICE Fin al Result Performing Organization Address [facility] Co de Phone Number DAVID VIRGENCH [address] [address] [facility] Department [employer] [place], [place] [id number] * eGFR (03/03/2025 2:50 AM CDT) eGFR [...] BLOOD ORDERABLES Final Result Performing Organization Address [facility]/ZIP Co de Phone Number DAVID BJWCH [address] [facility]. Department [place] [address] * (ABNORMAL) Differential, auto (03/03/2025 2:50 AM CDT) Neutrophil abs 4.71 1.50 - 6.50 K/cumm Imm gran abs 0.01 0.00 - 0.10 K/cumm DAVID VIRGENW Lymphocyte abs 0.42(L) 0.80 - 3.30 K/cumm [facility] Monocyte abs 0.69 0.20 - 0.80 K/cumm [facility] Eosinophil abs 0.18 0.00 - 0.50 K/cumm [facility] Basophil abs 0.02 0.00 - 0.10 K/cumm DAVID [facility] Neutrophil pct 78.1 % [facility] Comment: Interpretive Data Percent cell count reference ranges are not reported, since discordance with absolute values may lead to misinterpretation of CBC data. Current Interpretive Data was last revised on 2017. Imm gran pct 0.2 % DAVID [facility] Comment: Interpretive Data Percent cell count reference ranges are not reported, since discordance with absolute values may lead to misinterpretation of CBC data. Current Interpretive Data was last revised on 2017. Lymphocyte pct 7.0 % [facility] Comment: Interpretive Data Percent cell count reference ranges are not reported, since discordance with absolute values may lead to misinterpretation of CBC data. Current Interpretive Data was last revised on 2017. Monocyte pct 11.4 % DAVID [facility] Comment: Interpretive Data Percent cell count reference ranges are not reported, since discordance with absolute values may lead to misinterpretation of CBC data. Current Interpretive Data was last revised on 2017. Eosinophil pct 3.0 % DAVID [facility] Comment: Interpretive Data Percent cell count reference ranges are not reported, since discordance with absolute values may lead to misinterpretation of CBC data. Current Interpretive Data was last revised on 2017. Basophil pct 0.3 % DAVID [facility] Comment: Interpretive Data Percent cell count reference ranges are not reported, since discordance with absolute values may lead to misinterpretation of CBC data. Current Interpretive Data was last revised on 2017. Blood 03/03/2025 2:50 AM CDT 03/03/2025 2:54 AM CDT Rosa Camp MD LAB BLOOD ORDERABLES Final Result [facility] [address] [facility] [employer] [place] [address] * (ABNORMAL) CBC with auto differential (03/03/2025 2:50 AM CDT) Pathologist [facility] WBC 6.03 3.80 - 9.90 K/cumm Hgb 11.7(L) 13.0 - 17.5 g/dL C[facility]ER [facility] Hct 36.5(L) 38.9 - 50.3 % [facility] BJWCH Plt 114(L) 150 - 400 K/cumm [facility] MPV 10.8 9.1 - 12.3 fL [facility] W RBC 4.48 4.30 - 5.80 M/cumm [facility] WCH MCV 81.5 81.3 - 96.4 fL [facility] 26.1(L) 27.1 - 33.3 pg [facility] W MCHC 32.1(L) 32.3 - 35.7 g/dL [facility] RDW CV 16.6(H) 11.1 - 14.9 % [facility] RDW SD 49.4(H) 35.7 - 48.1 fL [facility] NRBC abs 0.00 0.00 - 0.01 K/cumm [facility] Blood 03/03/2025 2:50 AM CDT 03/03/2025 2:54 AM CDT Rosa Camp MD LAB BLOOD ORDERABLES Final Result DAVID VIRGENWCH [address] [facility] Department [place] [address] * (ABNORMAL) Comprehensive metabolic panel (03/03/2025 2:50 AM CDT) Pathologist [facility] Sodium 137 135 - 145 mmol/L Potassium, pl 4.5 3.3 - 4.9 mmol/L [facility]ER [facility] Chloride 103 97 - 110 mmol/L [facility] CO2 23 22 - 32 mmol/L [facility] Anion gap 11 2 - 15 mmol/L [facility] BUN 20 6 - 25 mg/dL [...] Calcium 8.8 8.5 - 10.3 mg/dL [facility] Bilirubin, total 0.9 0.1 - 1.2 mg/dL [...] MD LAB BLOOD ORDERABLES Final Result [facility] [address] [facility]. Department [place] [address] * POCT glucose (03/02/2025 8:51 PM CDT) [facility] Glucose, POC 157 70 - 199 mg/dL Comment: Interpretive Data Glucose is assumed to be non-fasting. Fasting Glucose reference ranges are: 0 - 150 years: 70 mg/dL - 99 mg/dL Current interpretive data was last revised on 2014. POC Device Number [id number] DAVID PEOPLES Blood 03/02/2025 8:51 PM CDT 03/02/2025 8:51 PM CDT Lydia Franco MD LAB POCT ORDERABLES - DE VICE Final Result Performing Organization Address [facility] Phone Number [facility] [address] [place] [address] * POCT glucose (03/02/2025 7:12 PM CDT) Glucose, POC 181 70 - 199 mg/dL Comment: Interpretive Data Glucose is assumed to be non-fasting. Fasting Glucose reference ranges are: 0 - 150 years: 70 mg/dL - 99 mg/dL Current interpretive data was last revised on 2014. POC Device Number [id number] DAVID PEOPLES Blood 03/02/2025 7:12 PM CDT 03/02/2025 7:12 PM CDT Lydia Franco MD LAB POCT ORDERABLES - DE VICE Final Result Performing Organization Address [facility] Phone Number [facility] [address] [place] [address] * (ABNORMAL) POCT glucose (03/02/2025 5:08 PM CDT) Glucose, POC 200(H) 70 - 199 mg/dL Comment: Interpretive Data Glucose is assumed to be non-fasting. Fasting Glucose reference ranges are: 0 - 150 years: 70 mg/dL - 99 mg/dL Current interpretive data was last revised on 2014. POC Device Number [id number] 1 DAVID SWEENEYCH Blood 03/02/2025 5:08 PM CDT 03/02/2025 5:08 PM CDT Lydia Franco MD LAB POCT ORDERABLES - DE VICE Final Result Performing Organization Address [facility] Phone Number DAVID VIRGENCH [address] [facility]. [facility] [place] [address] * (ABNORMAL) POCT glucose (03/02/2025 11:21 AM CDT) Glucose, POC 208(H) 70 - 199 mg/dL Comment: Interpretive Data Glucose is assumed to be non-fasting. Fasting Glucose reference ranges are: 0 - 150 years: 70 mg/dL - 99 mg/dL Current interpretive data was last revised on 2014. POC Device Number [id number] 1 DAVID VIRGENWROSSANA Blood 03/02/2025 11:2 1 AM CDT 03/02/2025 11:21 AM CDT us Lydia Franco MD LAB POCT ORDERABLES - DE VICE Final Result Performing Organization Address [facility] Phone Number [facility] [address] [facility]. [facility] [place] [address] * POCT glucose (03/02/2025 7:40 AM CDT) Glucose, POC 111 70 - 199 mg/dL Comment: Interpretive Data Glucose is assumed to be non-fasting. Fasting Glucose reference ranges are: 0 - 150 years: 70 mg/dL - 99 mg/dL Current interpretive data was last revised on 2014. POC Device Number [id number] 1 DAVID VIRGENWROSSANA Blood 03/02/2025 7:40 AM CDT 03/02/2025 7:40 AM CDT us Lydia Franco MD LAB POCT ORDERABLES - DE VICE Final Result Performing Organization Address [facility] Phone Number [facility] [address] [facility]. [facility] [place] [address] * eGFR (03/02/2025 3:38 AM CDT) eGFR [...] MD LAB BLOOD ORDERABLES Final Result [facility] [address] [facility]. Department [place] [address] * (ABNORMAL) Differential, auto (03/02/2025 3:38 AM CDT) Pathologist [facility] Neutrophil abs 2.09 1.50 - 6.50 K/cumm Imm gran abs 0.01 0.00 - 0.10 K/cumm [facility] Lymphocyte abs 0.49(L) 0.80 - 3.30 K/cumm [facility] Monocyte abs 0.61 0.20 - 0.80 K/cumm [facility] Eosinophil abs 0.26 0.00 - 0.50 K/cumm [facility] Basophil abs 0.02 0.00 - 0.10 K/cumm [facility] Neutrophil pct 60.0 % [facility] Comment: Interpretive Data Percent cell count [...] LAB BLOOD ORDERABLES Final Result DAVID VIRGENWCH [address] [facility]. Department [place] [address] * (ABNORMAL) CBC with auto differential (03/02/2025 3:38 AM CDT) WBC 3.48(L) 3.80 - 9.90 K/cumm Hgb 11.4(L) 13.0 - 17.5 g/dL DAVID PEOPLES Hct 36.6(L) 38.9 - 50.3 % DAVID PEOPLES Plt 106(L) 150 - 400 K/cumm [facility] MPV 10.4 9.1 - 12.3 fL [facility] RBC 4.41 4.30 - 5.80 M/cumm [facility] MCV 83.0 81.3 - 96.4 fL [facility] MCH 25.9(L) 27.1 - 33.3 pg [facility] MCHC 31.1(L) 32.3 - 35.7 g/dL [facility] RDW CV 16.7(H) 11.1 - 14.9 % [facility] RDW SD 50.8(H) 35.7 - 48.1 fL [facility] NRBC abs 0.00 0.00 - 0.01 K/cumm [facility] Blood 03/02/2025 3:38 AM CDT 03/02/2025 4:12 AM CDT Rosa Camp MD LAB BLOOD ORDERABLES Final Result [facility] [address] [facility] Department [place] [address] * (ABNORMAL) Comprehensive metabolic panel (03/02/2025 3:38 AM CDT) Sodium 138 135 - 145 mmol/L Potassium, pl 3.8 3.3 - 4.9 mmol/L [facility] Chloride 102 97 - 110 mmol/L [facility] CO2 27 22 - 32 mmol/L [facility] Anion gap 9 2 - 15 mmol/L [facility] BUN 18 6 - 25 mg/dL [facility] Creatinine 0.80 0.80 - 1.30 mg/dL [facility] Glucose 128 70 - 199 mg/dL [facility] Comment: Interpretive Data Fasting glucose >/= [...] LAB BLOOD ORDERABLES Final Result DAVID BJWCH [address] [facility]. Department [place] [address] * (ABNORMAL) POCT glucose (03/01/2025 9:04 PM CDT) [facility] Glucose, POC 241(H) 70 - 199 mg/dL Comment: Interpretive Data Glucose is assumed to be non-fasting. Fasting Glucose reference ranges are: 0 - 150 years: 70 mg/dL - 99 mg/dL Current interpretive data was last revised on 2014. POC Device Number [id number] 1 [facility] Blood 03/01/2025 9:04 PM CDT 03/01/2025 9:04 PM CDT Lydia Franco MD LAB POCT ORDERABLES - DE VICE Final Result DAVID BJWCH [address] [employer]. [facility] [place] [address] * POCT glucose (03/01/2025 5:50 PM CDT) Glucose, POC 87 70 - 199 mg/dL Comment: Interpretive Data Glucose is assumed to be non-fasting. Fasting Glucose reference ranges are: 0 - 150 years: 70 mg/dL - 99 mg/dL Current interpretive data was last revised on 2014. POC Device Number [id number] 1 DAVID PEOPLES Blood 03/01/2025 5:50 PM CDT 03/01/2025 5:50 PM CDT Lydia Franco MD LAB POCT ORDERABLES - DE VICE Final Result Performing Organization Address [facility] de Phone Number K[facility]STENNER BJWCH [address] [facility] [place] [address] * (ABNORMAL) POCT glucose (03/01/2025 11:36 AM CDT) Pathologist [facility] Glucose, POC 204(H) 70 - 199 mg/dL Comment: Interpretive Data Glucose is assumed to be non-fasting. Fasting Glucose reference ranges are: 0 - 150 years: 70 mg/dL - 99 mg/dL Current interpretive data was last revised on 2014. POC Device Number [id number] 1 DAVID PEOPLES Blood 03/01/2025 11:3 6 AM CDT 03/01/2025 11:36 AM CDT Lydia Franco MD LAB POCT ORDERABLES - DE VICE Final Result Performing Organization Address [facility] Co de Phone Number KRISTENNER BJWCH [address] [facility]. [facility] [place] [address] * C. difficile testing Stool (03/01/2025 10:10 AM CDT) [facility] Result Positive Negative Comment:Testing performed by : [facility], [address] [place] [address]., [id number] Toxin Result Negative Negative DAVID PEOPLES Comment:Testing performed by : [facility], [address] [place] [address]., [address] C. diff result Negative, free toxin. Negative, free toxin DAVID PEOPLES Comment:Testing performed by : [facility], [address] [place] [address]., [address] C. diff interp GDH+/toxin- results almost never represent true C. difficile infection (CDI). Results may represent colonization with C. difficile without CDI, detection of a bacteria other than toxigenic C. difficile, or a false negative toxin assay. If there is a high index of suspicion for CDI, additional testing by PCR is available upon request. DAVID PEOPLES Comment:Testing performed by : [facility], [address] [place] [address]., [address] Stool 03/01/2025 10:1 0 AM CDT 03/01/2025 12:12 PM CDT Rosa Camp MD LAB MICROBIOLOGY - GENERAL ORDERABLES Final Result [facility]STENPETAR PARAMAnna [address] [facility] Department of Laboratories [place], [place] [id number] * Norovirus PCR Stool (03/01/2025 10:10 AM CDT) Norovirus GI RNA Not Detected Not Detected [facility] Comment:Testing performed by : [facility], [address] [place]., [address] Norovirus GII RNA Not Detected Not Detected DAVID PEOPLES Comment: Interpretive data: Testing performed at the [facility] using the [employer] Xpert Norovirus Assay. This assay uses nucleic [...] last revised on 2024. Testing performed by: [facility], [address] [place] [address] Stool 03/01/2025 10:1 0 AM CDT 03/01/2025 2:08 PM CDT Rosa Camp MD LAB MICROBIOLOGY - GENERAL ORDERABLES Final Result [facility] [address] [facility] Department [place] [address] [facility] * (ABNORMAL) MRSA Only (Staphylococcus aureus) PCR Nasal (03/01/2025 10:10 AM CDT) [facility] PCR Scrn, Methicillin resistant Staphylococcus aureus (MRSA) Detected( C) Not Detected Comment: Critical result called to and read back by ALOK GARG (INPATIENT CODER) on 03/01/2025 14:59:19 CDT to [id number]. Interpretive Data Testing performed using Nucleic Acid Amplification with the [employer] Xpert MRSA NxG Assay. This assay detects target DNA from mecA, mecC and the SCCmec insertion site of Staphylococcus aureus using Real-Time PCR and has been cleared by the FDA. Performance characteristics have been verified by the [facility]. Current Interpretive Data was last revised on 2023 Testing performed by: [facility], [address] [place] [address]., [id number] Nasal 03/01/2025 10:1 0 AM CDT 03/01/2025 11:03 AM CDT Lydia Franco MD LAB MICROBIOLOGY - GENER AL ORDERABLES Final Result Performing Organization Address [facility] Co de Phone Number DAVID BJWCH [address] [facility] [place] [address] * Stool culture Stool Rectum (03/01/2025 10:10 AM CDT) Direct Specimen Exam Shiga Toxin Testing: Negative for: Shigatoxin of enterohemorrhagic E.coli. Comment:Testing performed by : [facility], [address] [place] [address]., [id number] Report Final Report: No Salmonella, Shigella, Aeromonas, Plesiomonas, Yersinia, Campylobacter, or E.coli O157:H7 isolated DAVID SWEENEY Comment:Testing performed by : [facility], [address] [place] [address]., [id number] Stool (Rectum) 03/01/2025 10 :10 AM CDT 03/01/2025 12:12 PM CDT Narrative [facility] - 03/04/2025 2:00 PM CDT This specimen is screened for the presence of Aeromonas, Campylobacter, E.coli-0157:H7, Plesiomonas, Salmonella, Shigella, Shiga Toxin producing E. coli, and Yersinia. Rosa Camp MD LAB MICROBIOLOGY - GENERAL ORDERABLES Final Result Performing Organization Address [facility] Co de Phone Number DAVID BJWCH [address] [facility] [employer] [place] [address] * POCT glucose (03/01/2025 8:13 AM CDT) Glucose, POC 78 70 - 199 mg/dL Comment: Interpretive Data Glucose is assumed to be non-fasting. Fasting Glucose reference ranges are: 0 - 150 years: 70 mg/dL - 99 mg/dL Current interpretive data was last revised on 2014. POC Device Number [id number] 1 DAVID PEOPLES Blood 03/01/2025 8:13 AM CDT 03/01/2025 8:13 AM CDT Lydia Franco MD LAB POCT ORDERABLES - DE VICE Final Result Performing Organization Address [facility] Phone Number DAVID BJWCH [address] [facility] [place] [address] * POCT glucose (03/01/2025 7:41 AM CDT) [facility] Signature Glucose, POC 83 70 - 199 mg/dL Comment: Interpretive Data Glucose is assumed to be non-fasting. Fasting Glucose reference ranges are: 0 - 150 years: 70 mg/dL - 99 mg/dL Current interpretive data was last revised on 2014. POC Device Number [id number] DAVID PEOPLES Blood 03/01/2025 7:41 AM CDT 03/01/2025 7:41 AM CDT Lydia Franco MD LAB POCT ORDERABLES - DE VICE Final Result Performing Organization Address [facility] Phone Number DAVID BJWCH [address] [facility] [place] [address] * US RUQ (03/01/2025 7:35 AM CDT) [...] by: Jose Bustillo M.D. Rosa Camp MD [facility] US PROCEDURES Final Re sult * eGFR [...] Camp MD LAB BLOOD ORDERABLES Final Result [facility] [address] [facility]. Department of Laboratories [place], [place] [id number] * (ABNORMAL) Differential, auto (03/01/2025 5:59 AM CDT) Pathologist [facility] Neutrophil abs 3.84 1.50 - 6.50 K/cumm Imm gran abs 0.01 0.00 - 0.10 K/cumm [facility] Lymphocyte abs 0.47(L) 0.80 - 3.30 K/cumm [facility] Monocyte abs 0.61 0.20 - 0.80 K/cumm [facility] Eosinophil abs 0.17 0.00 - 0.50 K/cumm [facility] Basophil abs 0.02 0.00 - 0.10 K/cumm [facility] Neutrophil pct 75.0 % [facility] Comment: Interpretive Data Percent cell count [...] BLOOD ORDERABLES Final Result Performing Organization Address City/State/[facility] Co de Phone Number [facility]ID [facility] [address] [facility]. Department [place] [address] * (ABNORMAL) CBC with auto differential (03/01/2025 5:59 AM CDT) WBC 5.12 3.80 - 9.90 K/cumm Hgb 11.4(L) 13.0 - 17.5 g/dL DAVID PEOPLES Hct 35.4(L) 38.9 - 50.3 % DAVID PEOPLES Plt 107(L) 150 - 400 K/cumm DAVID PEOPLES Comment:No clot detected in sample. MPV 11.0 9.1 - 12.3 fL [facility] RBC 4.29(L) 4.30 - 5.80 M/cumm [facility] MCV 82.5 81.3 - 96.4 fL [facility] MCH 26.6(L) 27.1 - 33.3 pg [facility] MCHC 32.2(L) 32.3 - 35.7 g/dL [facility] RDW CV 16.7(H) 11.1 - 14.9 % [facility] RDW SD 49.8(H) 35.7 - 48.1 fL [facility] NRBC abs 0.00 0.00 - 0.01 K/cumm [facility] Blood 03/01/2025 5:59 AM CDT 03/01/2025 5:59 AM CDT Rosa Camp MD LAB BLOOD ORDERABLES Final Result Performing Organization Address [facility] Co de Phone Number DAVID SWEENEYCH [address] [employer] [place] [address] * (ABNORMAL) Erythrocyte sedimentation rate (03/01/2025 5:59 AM CDT) Pathologist [facility] Erythrocyte sedimentation rate 37(H) 1 - 20 mm/hr Blood 03/01/2025 5:59 AM CDT 03/01/2025 5:59 AM CDT Rosa Camp MD LAB BLOOD ORDERABLES Final Result Performing Organization Address [facility] Co de Phone Number DAVID VIRGENWCH [address] [facility] [employer] [place] [address] * (ABNORMAL) CRP (acute phase) (03/01/2025 5:59 AM CDT) Pathologist [facility] CRP 71.2(H) <=10.0 mg/L Blood 03/01/2025 5:59 AM CDT 03/01/2025 5:59 AM CDT us Rosa Camp MD LAB BLOOD ORDERABLES Final Result DAVID PEOPLES [address] [facility]. Department [place] [address] * (ABNORMAL) Comprehensive metabolic panel (03/01/2025 5:59 [...] BLOOD ORDERABLES Final Result Performing Organization Address [facility] Co de Phone Number DAVID BJWCH [address] [facility] [place] [address] * POCT glucose (03/01/2025 4:20 AM CDT) [facility] Signature Glucose, POC 102 70 - 199 mg/dL Comment: Interpretive Data Glucose is assumed to be non-fasting. Fasting Glucose reference ranges are: 0 - 150 years: 70 mg/dL - 99 mg/dL Current interpretive data was last revised on 2014. POC Device Number [id number] DAVID BJWCH Blood 03/01/2025 4:20 AM CDT 03/01/2025 4:20 AM CDT Rosa Camp MD LAB POCT ORDERABLES - ALESSIO CE Final Result Performing Organization Address [facility] Co ca Phone Number DAVID VIRGENWCH [address] [facility] [place] [address] * XR Chest Pa Lateral 2 Vw [...] Report: No growth Comment:Testing performed by : [facility], [facility], [place]., [address] Blood 03/01/2025 2:43 AM CDT 03/01/2025 7:08 AM CDT [facility]i [facility] - 03/06/2025 1:00 PM CDT Collection->Peripheral Interpretive [...] organism identification may be performed using the Life800 Blood Culture Identification panel. This assay detects microbial DNA in a blood culture broth. This assay has been cleared by the [place] Food and Drug Administration and its performance characteristics have been verified by the [facility]. Interpretive data was last revised on August 03, 2022. us Jorge L Garcia MD LAB MICROBIOLOGY - GENERAL ORDER JOSE LUIS Final Result Performing Organization Address [facility] de Phone Number DAVID BJWCH [address] [facility] [place] [address] * Blood culture Blood (03/01/2025 2:43 AM CDT) Report Final Report: No growth Comment:Testing performed by : [facility], [address] [place] [address]., [address] Blood 03/01/2025 2:43 AM CDT 03/01/2025 7:08 [...] organism identification may be performed using the Life800 Blood Culture Identification panel. This assay detects microbial DNA in a blood culture broth. This assay has been cleared by the [place] Food and Drug Administration and its performance characteristics have been verified by the [facility]. Interpretive data was last revised on August 03, 2022. us Jorge L Garcia MD LAB MICROBIOLOGY - GENERAL ORDER JOSE LUIS Final Result Performing Organization Address [facility] Co de Phone Number DAVID VIRGENWCH [address] [address] Department [employer] [place] [address] * Mononucleosis screen (03/01/2025 1:09 AM CDT) [place] Screen Negative Negative Comment: Interpretive Data Heterophile [...] ORDERABLES Final Resul t Performing Organization Address [facility] Co de Phone Number DAVID VIRGENWCH [address] [facility] [employer] [place], [place] [id number] * POCT glucose (03/01/2025 12:27 AM CDT) [facility] Signature Glucose, POC 130 70 - 199 mg/dL Comment: Interpretive Data Glucose is assumed to be non-fasting. Fasting Glucose reference ranges are: 0 - 150 years: 70 mg/dL - 99 mg/dL Current interpretive data was last revised on 2014. POC Device Number [id number] DAVID BJWCH Blood 03/01/2025 12:2 7 AM CDT 03/01/2025 12:27 AM CDT us Jorge L Garcia MD LAB POCT ORDERABLES - DEVICE Fin al Result Performing Organization Address [facility] Phone Number DAVID VIRGENWCH [address] [facility] [place] [address] * CT Abdomen Pelvis W Contrast (02/28/2025 [...] Gene Barber M.D. us Arabella S. Cobb-Vannesa 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 IMG CT PROCEDURES Fi nal Result * eGFR (02/28/2025 10:21 PM CDT) Pathologist [facility] eGFR >90 >=60 mL/min/1. 73 m2 Comment: [...] 02/28/2025 10:26 PM CDT us Arabella Roblero 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 LAB BLOOD ORDERABLES Final Result [facility] [address] [facility]. Department [place] [address] * (ABNORMAL) Differential, auto (02/28/2025 10:21 PM CDT) Pathologist [facility] Neutrophil abs 6.15 1.50 - 6.50 K/cumm Imm gran abs 0.04 0.00 - 0.10 K/cumm [facility] Lymphocyte abs 0.43(L) 0.80 - 3.30 K/cumm [facility] Monocyte abs 0.69 0.20 - 0.80 K/cumm [facility] Eosinophil abs 0.06 0.00 - 0.50 K/cumm [facility] Basophil abs 0.02 0.00 - 0.10 K/cumm DAVID PEOPLES Neutrophil pct 83.3 % DAVID PEOPLES Comment: Interpretive Data Percent cell count reference ranges are not reported, since discordance with absolute values may lead to misinterpretation of CBC data. Current Interpretive Data was last revised on 2017. Imm gran pct 0.5 % DAVID PEOPLES Comment: Interpretive [...] 02/28/2025 10:26 PM CDT us Arabella Roblero 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 LAB BLOOD ORDERABLES Final Result [facility] [address] [facility]. Department [place] [employer] [place] [address] * (ABNORMAL) CBC with auto differential (02/28/2025 10:21 PM CDT) WBC 7.39 3.80 - 9.90 K/cumm Hgb 11.8(L) 13.0 - 17.5 g/dL [facility] Hct 36.7(L) 38.9 - 50.3 % [facility] Plt 119(L) 150 - 400 K/cumm [facility] Comment:No clot detected in sample. MPV 10.5 9.1 - 12.3 fL [facility] RBC 4.52 4.30 - 5.80 M/cumm [facility] MCV 81.2(L) 81.3 - 96.4 fL [facility] MCH 26.1(L) 27.1 - 33.3 pg [facility] MCHC 32.2(L) 32.3 - 35.7 g/dL [facility] RDW CV 16.7(H) 11.1 - 14.9 % [facility] RDW SD 48.8(H) 35.7 - 48.1 fL [facility] NRBC abs 0.00 0.00 - 0.01 K/cumm [facility] Blood 02/28/2025 10:2 1 PM CDT 02/28/2025 10:26 PM CDT us Arabella Roblero 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 LAB BLOOD ORDERABLES Final Result [facility] [address] [facility]. Department [place] [address] * (ABNORMAL) Comprehensive metabolic panel (02/28/2025 10:21 PM CDT) [facility] Sodium 139 135 - 145 mmol/L Potassium, pl 4.0 3.3 - 4.9 mmol/L [facility] Chloride 103 97 - 110 mmol/L [facility] CO2 24 22 - 32 mmol/L [facility] Anion gap 12 2 - 15 mmol/L [facility] BUN 18 6 - 25 mg/dL [facility] Creatinine 0.80 0.80 - 1.30 mg/dL [facility] Glucose 133 70 - 199 mg/dL [facility] Comment: Interpretive Data Fasting glucose >/= [...] 02/28/2025 10:26 PM CDT us Arabella Roblero 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 LAB BLOOD ORDERABLES Final Result DAVID SWEENEY [address] [facility]. Department [place] [address] * POCT glucose (02/28/2025 9:56 PM CDT) [facility] Signature Glucose, POC 136 70 - 199 mg/dL Comment: Interpretive Data Glucose is assumed to be non-fasting. Fasting Glucose reference ranges are: 0 - 150 years: 70 mg/dL - 99 mg/dL Current interpretive data was last revised on 2014. POC Device Number [id number] CERPETAR VIRGENW Blood 02/28/2025 9:56 PM CDT 02/28/2025 9:56 PM CDT us Notinfile Unknown LAB POCT ORDERABLES - DEVICE F inal Result Performing Organization Address [facility] de Phone Number [facility]ID [facility] [address] [address] [facility] [place] [address] * Influenza A/B, RSV, and COVID-19 PCR Nasopharyngeal (02/28/2025 8:27 PM CDT) COVID-19 RNA Negative Negative Influenza A RNA Negative Negative [facility] Influenza B RNA Negative Negative [facility] RSV RNA Negative Negative [facility] Comment: Testing performed by [facility]. This test is performed using the [employer] Xpert Xpress CoV-2/Flu/RSV plus assay. This is a multiplex, real-time reverse transcriptase PCR assay intended for the qualitative detection of nucleic acid from SARS-CoV-2, influenza A, influenza B, and respiratory syncytial virus. This assay has been cleared by the [place] Food and Drug administration. The performance characteristics have been verified by the [facility]. Results must be considered in the clinical context, and a negative result does not rule out infection. Interpretive Data last revised 2023 Nasopharyngeal 02/28/2025 8: 27 PM CDT 02/28/2025 8:27 PM CDT Narrative [facility] - 02/28/2025 9:05 PM CDT Is the Patient experiencing symptoms consistent with COVID?->Yes Jorge L Garcia MD LAB MICROBIOLOGY - GENERAL ORDER JOSE LUIS Final Result Performing Organization Address [facility] de Phone Number DAVID VIRGENWCH [address] [employer] Department [place] [address] * (ABNORMAL) Urinalysis reflex to microscopic and culture Urine (02/28/2025 8:27 PM CDT) Color, ur Straw Yellow Clarity, ur Clear Clear DAVID BJW Specific gravity, ur 1.008 1.003 - 1.030 [facility] pH, urine 6.0 [facility] Comment: Interpretive Data U rine pH is affected by diet, medications, systemic acid-base disturbances, and renal tubular function. pH may affect urinary stone formation. For example, urine pH below 6.0 may help reduce the tendency for calcium phosphate stones and pH greater than 6.0 may reduce the tendency for uric acid stone formation. Source: [facility] Current Interpretive Data was last [...] GENERAL ORDER JOSE LUIS Final Result [facility] [address] [facility] Department [place] [address] * Respiratory pathogen panel Nasopharyngeal (02/28/2025 8:27 PM CDT) Influenza A RNA Not Detected Not Detected [facility] Comment:Testing performed by : [facility], [address] [place] [address]., [address] Influenza B RNA Not Detected Not Detected [facility] Comment:Testing performed by : [facility], [address] [place] [address]., [address] RSV RNA Not Detected Not Detected [facility] Comment:Testing performed by : [facility], [address] [place] [address]., [address] COVID-19 RNA Not Detected Not Detected [facility] Comment:Testing performed by : [facility], [address] [place] [address]., [address] Coronavirus 229E RNA Not Detected Not Detected [facility] Comment:Testing performed by : [facility], [address] [place] [address]., [address] Coronavirus HKU1 RNA Not Detected Not Detected [facility] Comment:Testing performed by : [facility], [address] [place] [address]., [address] Coronavirus NL63 RNA Not Detected Not Detected [facility] Comment:Testing performed by : [facility], [address] [place] [address]., [address] Coronavirus OC43 RNA Not Detected Not Detected [facility] Comment:Testing performed by : [facility], [address] [place] [address]., [address] Adenovirus DNA Not Detected Not Detected [facility] Comment:Testing performed by : [facility], [address] [place] [address]., [address] Metapneumovirus RNA Not Detected Not Detected [facility] Comment:Testing performed by : [facility], [address] [place] [address]., [address] Rhinovirus/Enterov irus RNA Not Detected Not Detected [facility] Comment:Testing performed by : [facility], [address] [place] [address]., [address] Parainfluenza 1 RNA Not Detected Not Detected [facility] Comment:Testing performed by : [facility], [address] [place] [address]., [address] Parainfluenza 2 RNA Not Detected Not Detected [facility] Comment:Testing performed by : [facility], [address] [place] [address]., [address] Parainfluenza 3 RNA Not Detected Not Detected [facility] Comment:Testing performed by : [facility], [address] [place] [address]., [address] Parainfluenza 4 RNA Not Detected Not Detected [facility] Comment:Testing performed by : [facility], [address] [place] [address]., [address] B. pertussis DNA Not Detected Not Detected [facility] Comment:Testing performed by : [facility], [facility] [place]., [address] B. parapertussis DNA Not Detected Not Detected [facility] Comment:Testing performed by : [facility], [facility] [place]., [address] C. pneumoniae DNA Not Detected Not Detected [facility] Comment:Testing performed by : [facility], [address] [place] [address]., [address] M. pneumoniae DNA Not Detected Not Detected [facility] Comment: Interpretive Data The [employer] FilmArray Respiratory Panel (RP2.1) assay is a [...] assay has FDA clearance for testing of 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 swabs. The performance characteristics of this assay have been determined by [facility]. Current interpretive data was last revised on 2021. Testing performed by: [facility], [address] [place] [address], [place]., [address] Nasopharyngeal 02/28/2025 8: 27 PM CDT 03/01/2025 3:00 AM CDT us Jorge L Garcia MD LAB MICROBIOLOGY - GENERAL ORDER JOSE LUIS Final Result Performing Organization Address [facility] de Phone Number [facility] [phone] [employer] [place], [place] [id number] MBC * (ABNORMAL) Urinalysis, microscopic only (02/28/2025 [...] ORDERABLES Final Resul t Performing Organization Address [facility] Co de Phone Number DAVID [facility] [address] [employer] [place], [place] [id number] * Surgical pathology (02/23/2025 12:00 AM CDT) Tissue (Skin, shave biopsy) 02/23/2025 02/24/2025 7:14 AM CDT Narrative [facility] - 02/25/2025 11:20 AM CDT EPIC results best viewed via link to PDF [facility] [address] [facility] [address], [place] [address] [email or web address] Note to Patients: This report may contain [...] Submitting Physician Information: Kemal Galvez M.D. [address] [facility], [address] [place] [id number] , DERMATOPATHOLOGY REPORT RESULTS DIAGNOSIS: SKIN, RIGHT PLASENCIA, SHAVE BIOPSY: BASAL CELL CARCINOMA [facility]/ajrr By this signature, I attest that [...] ag/mat ICD-9 A; ZSD.176 Clerical Data A; [address]5522 The characteristics of special, immunohistochemical, and immunofluorescence stains and in-situ hybridization tests performed by the [facility] were deemed acceptable in ongoing quality assurance manager measures and in compliance with regulations drawn from the Clinical Laboratory Improvement Act eo3219 (CLIA '88). Control reactions for all stains performed were deemed adequate and appropriate by a pathologist prior to evaluation of patient tissue. Some diagnoses were rendered with the assistance of laboratory-developed tests utilizing analyte-specific reagents; the performance characteristic of these tests were determined by [facility] and are not cleared or approved by the [place] Food an Drug administration. Laboratory developed test may only be performed in a facility that is certified by the [facility] as a high-complexity laboratory under CLIA '88. These tests are used for clinical purposes and are not investigational. Kemal Galvez MD LAB PATHOLOGY ORDERABLES Final Result [facility] [address] [place] [id number] * CTA Abdomen (02/05/2025 2:29 PM [...] battery and lead(s) --- HUNG Presenting Rhythm (OR) Atrial Pacing-Ventricular Sensing (AP-VS) --- rate 60 Arrhythmic events (AE) No new arrhythmic events in monitoring period Transmission Information (TI) Device Summary Report Provider Only Interpretation (PI) Provider has reviewed and agrees with findings Procedure Note Pebbles Nelson MD - 01/28/2025 Interpretation Summary: Battery and Leads (BL) Normal parameters noted on battery and lead(s) --- HUNG Presenting Rhythm (OR) Atrial Pacing-Ventricular Sensing (AP-VS) --- rate 60 [...] no pleural effusion, no pneumothorax. Dictated by: Hallei Bose M.D. The radiology attending physician has personally reviewed this study, and had reviewed and/or edited this written report and agrees with it. Electronically signed by: Papito Landers M.D. Seng Fischer MD IMG XR PROCEDURES Final R esult * eGFR (01/19/2025 1:32 PM CDT) [facility] eGFR 90 >=60 mL/min/1. 73 m2 [...] BLOOD ORDERABLES Final Result DAVID VIRGEN [facility] Department of Laboratories [place], [place] [id number] * (ABNORMAL) Differential, auto (01/19/2025 1:32 PM CDT) Neutrophil abs 5.13 1.50 - 6.50 K/cumm Comment:Testing performed by : [facility], [address] [place] [phone] Lymphocyte abs 0.73(L) 0.80 - 3.30 K/cumm DAVID VIRGEN Comment:Testing performed by : [facility], [address] [place] [phone] Monocyte abs 0.60 0.20 - 0.80 K/cumm DAVID VIRGEN Comment:Testing performed by : [facility], [address] [place] [phone] Eosinophil abs 0.17 0.00 - 0.50 K/cumm [facility] Comment:Testing performed by : [facility], [address] [place] [phone] Basophil abs 0.04 0.00 - 0.10 K/cumm [facility] Comment:Testing performed by : [facility], [address] [place] [phone] Neutrophil pct 76.9 % [facility] Comment: Interpretive Data Percent cell count reference ranges are not reported, since discordance with absolute values may lead to misinterpretation of CBC data. Current Interpretive Data was last revised on 2017. Testing performed by: [facility], [address] [place] [phone] Lymphocyte pct 11.0 % [facility] Comment: Interpretive Data Percent cell count reference ranges are not reported, since discordance with absolute values may lead to misinterpretation of CBC data. Current Interpretive Data was last revised on 2017. Testing performed by: [facility], [address] [place] [phone] Monocyte pct 9.0 % [facility] Comment: Interpretive Data Percent cell count reference ranges are not reported, since discordance with absolute values may lead to misinterpretation of CBC data. Current Interpretive Data was last revised on 2017. Testing performed by: [facility], [address] [place] [phone] Eosinophil pct 2.6 % [facility] Comment: Interpretive Data Percent cell count reference ranges are not reported, since discordance with absolute values may lead to misinterpretation of CBC data. Current Interpretive Data was last revised on 2017. Testing performed by: [facility], [address] [place] [phone] Basophil pct 0.5 % [facility] Comment: Interpretive Data Percent cell count reference ranges are not reported, since discordance with absolute values may lead to misinterpretation of CBC data. Current Interpretive Data was last revised on 2017. Testing performed by: [facility], [address] [place] [phone] Blood 01/19/2025 1:32 PM CDT 01/19/2025 1:39 PM CDT us Tiffany WAYNE LAB BLOOD ORDERABLES Final Result Performing Organization Address City/[facility]/ZIP Co de Phone Number [facility] Department [place] [address] * Iron profile w/ IBC (01/19/2025 1:32 PM CDT) Pathologist [facility] Iron 96 50 - 150 mcg/dL TIBC 322 250 - 400 mcg/dL [facility] Transferrin saturation 30 20 - 50 % [facility] Blood 01/19/2025 1:32 PM CDT 01/19/2025 1:42 PM CDT us Ben Chahal MD PhD LAB BLOOD ORDERABLES Fin al Result Performing Organization Address [facility] Co de Phone Number [facility] Department [place] [address] * (ABNORMAL) CBC with auto differential (01/19/2025 1:32 PM CDT) [facility] WBC 6.68 3.80 - 9.90 K/cumm Comment:Testing performed by : [facility], [address] [place] [phone] Hgb 11.6(L) 13.0 - 17.5 g/dL [facility] Comment:Testing performed by : [facility], [address] [place] [phone] Hct 36.5(L) 38.9 - 50.3 % [facility] Comment:Testing performed by : [facility], [address] [place] [phone] Plt 186 150 - 400 K/cumm [facility] Comment:Testing performed by : [facility], [address] [place] [phone] MPV 7.8 6.8 - 10.4 fL [facility] Comment:Testing performed by : [facility], [address] [place] [address] RBC 4.57 4.30 - 5.80 M/cumm [facility] Comment:Testing performed by : [facility], [address] [place] [address] MCV 79.9(L) 81.3 - 96.4 fL [facility] Comment:Testing performed by : [facility], [address] [place] [address] MCH 25.3(L) 27.1 - 33.3 pg [facility] Comment:Testing performed by : [facility], [address] [place] [address] MCHC 31.7(L) 32.3 - 35.7 g/dL [facility] Comment:Testing performed by : [facility], [address] [place] [address] RDW CV 17.5(H) 11.1 - 14.9 % [facility] Comment:Testing performed by : [facility], [address] [place] [address] NRBC abs 0.00 0.00 - 0.01 K/cumm [facility] Comment:Testing performed by : [facility], [address] [place] [address] Blood 01/19/2025 1:32 PM CDT 01/19/2025 1:39 PM CDT Tiffany WAYNE LAB BLOOD ORDERABLES Final Result [facility] Department of Laboratories [place], [place] [id number] * Cancer antigen 19-9 (01/19/2025 1:32 PM CDT) CA 19-9 ag 24.3 <=35.0 units/mL Comment: Interpretive Data The Autumn CA 19-9 assay procedure was used. Results from different manufacturers or methods may not be comparable. Serial testing should be performed using the same method. Blood 01/19/2025 1:32 PM CDT 01/19/2025 2:11 PM CDT Tiffany WAYNE LAB BLOOD ORDERABLES Final Result Performing Organization Address City/[facility]/ZIP Co de Phone Number [facility] [place] [address] * Ferritin (01/19/2025 1:32 PM CDT) [facility] Ferritin 54 30 - 400 ng/mL Blood 01/19/2025 1:32 PM CDT 01/19/2025 1:42 PM CDT Ben Chahal MD PhD LAB BLOOD ORDERABLES Fin al Result Performing Organization Address [facility] Co de Phone Number [facility] Department [place] [address] * (ABNORMAL) Comprehensive metabolic panel (01/19/2025 1:32 PM CDT) [facility] Sodium 140 135 - 145 mmol/L Potassium, pl 4.0 3.3 - 4.9 mmol/L [facility] Chloride 103 97 - 110 mmol/L [facility] CO2 27 22 - 32 mmol/L [facility] Anion gap 10 2 - 15 mmol/L [facility] BUN 25 6 - 25 mg/dL [facility] Creatinine 0.92 0.80 - 1.30 mg/dL [facility] Glucose 184 70 - 199 mg/dL [facility] Comment: Interpretive Data Fasting glucose >/= [...] Calcium 9.0 8.5 - 10.3 mg/dL [facility] Bilirubin, total 0.2 0.1 - 1.2 mg/dL [facility] Protein, pl 7.2 6.5 - 8.5 g/dL [facility] Albumin 3.9 3.5 - 5.0 g/dL [facility] Alk phos 423(H) 40 - 130 Units/L [facility] ALT 42 7 - 55 Units/L [facility] AST 38 10 - 50 Units/L [facility] Blood 01/19/2025 1:32 PM CDT 01/19/2025 1:42 PM CDT us Tiffany WAYNE LAB BLOOD ORDERABLES Final Result [facility] Department [place] [address] * CT chest without contrast (01/19/2025 1:12 [...] was last revised on 2014. POC Performer [id number] DAVID SWEENEY POC Device Number [id number] DAVID PEOPLES Blood 01/15/2025 12:3 0 PM CDT 01/15/2025 12:30 PM CDT Cb Lentz MD LAB POCT ORDERABLES - DEV ICE Final Result Performing Organization Address [facility] de Phone Number DAVID VIRGENWCH [address] [facility] [employer] [place], [place] [phone] * (ABNORMAL) POCT glucose (01/15/2025 11:49 AM CDT) Glucose, POC 284(H) 70 - 199 mg/dL Comment: Interpretive Data Glucose is assumed to be non-fasting. Fasting Glucose reference ranges are: 0 - 150 years: 70 mg/dL - 99 mg/dL Current interpretive data was last revised on 2014. POC Performer [id number] [facility] P[facility] Device Number [id number] DAVID VIRGENROSSANA Glucose comment 1 RN/MD Notified DAVID PEOPLES Blood 01/15/2025 11:4 9 AM CDT 01/15/2025 11:49 AM CDT Cb Lentz MD LAB POCT ORDERABLES - DEV ICE Final Result Performing Organization Address [facility] de Phone Number DAVID VIRGENW[facility] [address] [facility] [place] [address] * POCT glucose (01/15/2025 8:14 AM CDT) Glucose, POC 138 70 - 199 mg/dL Comment: Interpretive Data Glucose is assumed to be non-fasting. Fasting Glucose reference ranges are: 0 - 150 years: 70 mg/dL - 99 mg/dL Current interpretive data was last revised on 2014. POC Performer [id number] [facility] POC Device Number [id number] [facility] Blood 01/15/2025 8:14 AM CDT 01/15/2025 8:14 AM CDT Cb Lentz MD LAB POCT ORDERABLES - DEV ICE Final Result Performing Organization Address [facility] Co de Phone Number [facility] [address] [facility] [employer] [place], [place] [phone] * eGFR (01/15/2025 6:07 AM CDT) eGFR [...] ORDERABLES Tete l Result Performing Organization Address [facility]/ZIP Co de Phone Number DAVID [facility] [address] [employer] Department [place] [employer] [place] [address] * (ABNORMAL) Differential, auto (01/15/2025 6:07 AM CDT) Neutrophil abs 1.98 1.50 - 6.50 K/cumm Imm gran abs 0.01 0.00 - 0.10 K/cumm [facility] Lymphocyte abs 0.66(L) 0.80 - 3.30 K/cumm [facility] Monocyte abs 0.67 0.20 - 0.80 K/cumm [facility] Eosinophil abs 0.18 0.00 - 0.50 K/cumm [facility] Basophil abs 0.02 0.00 - 0.10 K/cumm [facility] Neutrophil pct 56.2 % [facility] Comment: Interpretive Data Percent cell count reference ranges are not reported, since discordance with absolute values may lead to misinterpretation of CBC data. Current Interpretive Data was last revised on 2017. Imm gran pct 0.3 % [facility] Comment: Interpretive Data Percent cell count reference ranges are not reported, since discordance with absolute values may lead to misinterpretation of CBC data. Current Interpretive Data was last revised on 2017. Lymphocyte pct 18.8 % [facility] Comment: Interpretive Data Percent cell count reference ranges are not reported, since discordance with absolute values may lead to misinterpretation of CBC data. Current Interpretive Data was last revised on 2017. Monocyte pct 19.0 % [facility] Comment: Interpretive Data Percent cell count reference ranges are not reported, since discordance with absolute values may lead to misinterpretation of CBC data. Current Interpretive Data was last revised on 2017. Eosinophil pct 5.1 % [facility] Comment: Interpretive Data Percent cell count reference ranges are not reported, since discordance with absolute values may lead to misinterpretation of CBC data. Current Interpretive Data was last revised on 2017. Basophil pct 0.6 % [facility] Comment: Interpretive Data Percent cell count reference ranges are not reported, since discordance with absolute values may lead to misinterpretation of CBC data. Current Interpretive Data was last revised on 2017. Blood 01/15/2025 6:07 AM CDT 01/15/2025 6:11 AM CDT Cb Lentz MD LAB BLOOD ORDERABLES Tete l Result DAVID PEOPLES [id number] [employer] [place], [place] [phone] * (ABNORMAL) CBC with auto differential (01/15/2025 [...] BLOOD ORDERABLES Tete l Result DAVID PEOPLES [id number] [employer] [place], [place] [phone] * Basic metabolic panel (01/15/2025 6:07 AM CDT) Pathologist [facility] Sodium 138 135 - 145 mmol/L Potassium, pl 3.7 3.3 - 4.9 mmol/L [facility] Chloride 101 97 - 110 mmol/L [facility] CO2 26 22 - 32 mmol/L [facility] Anion gap 11 2 - 15 mmol/L [facility] BUN 15 6 - 25 mg/dL [facility] Creatinine 0.80 0.80 - 1.30 mg/dL [facility] Glucose 143 70 - 199 mg/dL [facility] Comment: Interpretive Data Fasting glucose >/= [...] 2022. Calcium 8.6 8.5 - 10.3 mg/dL [facility] Blood 01/15/2025 6:07 AM CDT 01/15/2025 6:11 AM CDT Cb Lentz MD LAB BLOOD ORDERABLES Tete bennett Result [facility] [address] [facility] Department [place] [address] * (ABNORMAL) POCT glucose (01/14/2025 9:51 PM CDT) [facility] Glucose, POC 226(H) 70 - 199 mg/dL Comment: Interpretive Data Glucose is assumed to be non-fasting. Fasting Glucose reference ranges are: 0 - 150 years: 70 mg/dL - 99 mg/dL Current interpretive data was last revised on 2014. POC Performer [id number] [facility] POC Device Number [id number] [facility] Blood 01/14/2025 9:51 PM CDT 01/14/2025 9:51 PM CDT Cb Lentz MD LAB POCT ORDERABLES - DEV ICE Final Result Performing Organization Address [facility] Co de Phone Number DAVID VIRGENWCH [address] [facility] [employer] [address] * POCT glucose (01/14/2025 5:03 PM CDT) Glucose, POC 137 70 - 199 mg/dL Comment: Interpretive Data Glucose is assumed to be non-fasting. Fasting Glucose reference ranges are: 0 - 150 years: 70 mg/dL - 99 mg/dL Current interpretive data was last revised on 2014. POC Performer [id number] DAVID PEOPLES POC Device Number [id number] DAVID PEOPLES Blood 01/14/2025 5:03 PM CDT 01/14/2025 5:03 PM CDT Cb Lentz MD LAB POCT ORDERABLES - DEV ICE Final Result Performing Organization Address [facility] de Phone Number DAVID VIRGENWCH [address] [facility] [employer] [address] * Infection Prevention Foreign auris PCR, surveillance Axilla/Groin (01/14/2025 12:16 PM CDT) Foreign auris DNA Not Detected Not Detected [facility] Comment: Interpretive Data Testing performed by [facility] using the Autumn brenna 6800 Foreign auris assay. This assay detects DNA from Foreign auris using Real-Time PCR. This assay is laboratory developed and is not cleared by the [place] Food and Drug Administration. The performance characteristics have been verified by the [facility]. Testing performed by: [facility], [address] [place]., [address] Axilla/Groin 01/14/2025 12:1 6 PM CDT 01/14/2025 3:47 PM CDT Narrative DAVID PEOPLES - 01/14/2025 10:26 PM CDT Order placed by [facility] due to ring surveillance. us Instant Order Generic Provider LAB MICROBIOLOGY - GENERAL ORDERABLES Final Result Performing Organization Address [facility] Co de Phone Number [facility] [address] [facility] [place] [address] [facility] * POCT glucose (01/14/2025 11:26 AM CDT) Glucose, POC 156 70 - 199 mg/dL Comment: Interpretive Data Glucose is assumed to be non-fasting. Fasting Glucose reference ranges are: 0 - 150 years: 70 mg/dL - 99 mg/dL Current interpretive data was last revised on 2014. POC Performer [id number] [facility] POC Device Number [id number] [facility] Blood 01/14/2025 11:2 6 AM CDT 01/14/2025 11:26 AM CDT us Cb Lentz MD LAB POCT ORDERABLES - DEV ICE Final Result Performing Organization Address [facility] de Phone Number DAVID VIRGENCH [address] [facility] [employer] [address] * POCT glucose (01/14/2025 7:55 AM CDT) Glucose, POC 147 70 - 199 mg/dL Comment: Interpretive Data Glucose is assumed to be non-fasting. Fasting Glucose reference ranges are: 0 - 150 years: 70 mg/dL - 99 mg/dL Current interpretive data was last revised on 2014. POC Performer [id number] [facility] POC Device Number [id number] DAVID VIRGENWCH Blood 01/14/2025 7:55 AM CDT 01/14/2025 7:55 AM CDT Cb Lentz MD LAB POCT ORDERABLES - DEV ICE Final Result Performing Organization Address [facility] Co de Phone Number DAVID VIRGENCH [address] [employer] Department [place] [address] * eGFR (01/14/2025 5:41 AM CDT) eGFR [...] BLOOD NII SOTO Final Result [facility]ID [facility]IRGENW[facility] [address] [employer] Department [place] [address] * (ABNORMAL) Differential, auto (01/14/2025 5:41 AM [...] DAVID VIRGENROSSANA Neutrophil pct 72.0 % [facility] Comment: Interpretive Data Percent cell count [...] on 2017. Monocyte pct 11.5 % [facility] Comment: Interpretive Data Percent cell count reference ranges are not reported, since discordance with absolute values may lead to misinterpretation of CBC data. Current Interpretive Data was last revised on 2017. Eosinophil pct 3.8 % [facility] Comment: Interpretive Data Percent cell count reference ranges are not reported, since discordance with absolute values may lead to misinterpretation of CBC data. Current Interpretive Data was last revised on 2017. Basophil pct 0.6 % [facility] Comment: Interpretive Data Percent cell count reference ranges are not reported, since discordance with absolute values may lead to misinterpretation of CBC data. Current Interpretive Data was last revised on 2017. Blood 01/14/2025 5:41 AM CDT 01/14/2025 5:57 AM CDT Andreina Shields MD LAB BLOOD NII SOTO Final Result [facility] [address] [facility]. Department of Laboratories [place], [place] [phone] * (ABNORMAL) CBC with auto differential (01/14/2025 5:41 AM CDT) WBC 5.31 3.80 - 9.90 K/cumm Hgb 11.4(L) 13.0 - 17.5 g/dL [facility] Hct 37.2(L) 38.9 - 50.3 % [facility] Plt 141(L) 150 - 400 K/cumm [facility] MPV 9.8 9.1 - 12.3 fL [facility] RBC 4.38 4.30 - 5.80 M/cumm [facility] MCV 84.9 81.3 - 96.4 fL [facility] MCH 26.0(L) 27.1 - 33.3 pg [facility] MCHC 30.6(L) 32.3 - 35.7 g/dL [facility] RDW CV 16.6(H) 11.1 - 14.9 % [facility] RDW SD 51.8(H) 35.7 - 48.1 fL [facility] NRBC abs 0.00 0.00 - 0.01 K/cumm [facility] Blood 01/14/2025 5:41 AM CDT 01/14/2025 5:57 AM CDT Andreina Shields MD LAB BLOOD NII SOTO Final Result [facility] [address] [facility]. Department of Laboratories [place], [place] [phone] * Basic metabolic panel (01/14/2025 5:41 AM CDT) Pathologist [facility] Sodium 139 135 - 145 mmol/L Potassium, pl 4.2 3.3 - 4.9 mmol/L [facility] Chloride 105 97 - 110 mmol/L [facility] CO2 27 22 - 32 mmol/L [facility] Anion gap 7 2 - 15 mmol/L [facility] BUN 15 6 - 25 mg/dL [facility] Creatinine 0.80 0.80 - 1.30 mg/dL [facility] Glucose 169 70 - 199 mg/dL [facility] Comment: Interpretive Data Fasting glucose >/= [...] Calcium 8.8 8.5 - 10.3 mg/dL [facility] Blood 01/14/2025 5:41 AM CDT 01/14/2025 5:57 AM CDT Andreina Shields MD LAB BLOOD ORDE RABLES Final Result Performing Organization Address [facility] Co de Phone Number [facility] [address] [facility] [employer] [place], [place] [phone] * POCT glucose (01/13/2025 9:19 PM CDT) Glucose, POC 198 70 - 199 mg/dL Comment: Interpretive Data Glucose is assumed to be non-fasting. Fasting Glucose reference ranges are: 0 - 150 years: 70 mg/dL - 99 mg/dL Current interpretive data was last revised on 2014. POC Performer [id number] [facility] POC Device Number [id number] [facility] Blood 01/13/2025 9:19 PM CDT 01/13/2025 9:19 PM CDT Andreina Shields MD LAB POCT ORDER JOSE LUIS - DEVICE Final Result Performing Organization Address City/[facility] Co de Phone Number [facility] [address] [facility] [employer] [place], [place] [phone] * POCT glucose (01/13/2025 5:27 PM CDT) Glucose, POC 90 70 - 199 mg/dL Comment: Interpretive Data Glucose is assumed to be non-fasting. Fasting Glucose reference ranges are: 0 - 150 years: 70 mg/dL - 99 mg/dL Current interpretive data was last revised on 2014. POC Performer [id number] Amanda Huff [employer] POC Device Number [id number] DAVID VIRGENIID Blood 01/13/2025 5:27 PM CDT 01/13/2025 5:27 PM CDT Andreina Shields MD LAB POCT ORDER JOSE LUIS - DEVICE Final Result Performing Organization Address [facility] de Phone Number DAVID VIRGENCH [address] [employer] [facility] [employer] [place], [place] [phone] * (ABNORMAL) POCT glucose (01/13/2025 12:13 PM CDT) Glucose, POC 222(H) 70 - 199 mg/dL Comment: Interpretive Data Glucose is assumed to be non-fasting. Fasting Glucose reference ranges are: 0 - 150 years: 70 mg/dL - 99 mg/dL Current interpretive data was last revised on 2014. POC Performer [id number] Amanda Huff [employer] POC Device Number [id number] DAVID [employer] Blood 01/13/2025 12:1 3 PM CDT 01/13/2025 12:13 PM CDT Andreina Shields MD LAB POCT ORDER JOSE LUIS - DEVICE Final Result Performing Organization Address [facility] de Phone Number DAVID VIRGENW[facility] [address] [facility] [place] [address] * POCT glucose (01/13/2025 8:05 AM CDT) Glucose, POC 109 70 - 199 mg/dL Comment: Interpretive Data Glucose is assumed to be non-fasting. Fasting Glucose reference ranges are: 0 - 150 years: 70 mg/dL - 99 mg/dL Current interpretive data was last revised on 2014. POC Performer [id number] [employer] POC Device Number [id number] [facility]ERPET[facility]GENW[facility] Blood 01/13/2025 8:05 AM CDT 01/13/2025 8:05 AM CDT Andreina Shields MD LAB POCT ORDER JOSE LUIS - DEVICE Final Result Performing Organization Address [facility] de Phone Number DAVID [facility] [address] [facility] [place] [address] * POCT glucose (01/13/2025 2:00 AM CDT) [facility] Glucose, POC 109 70 - 199 mg/dL Comment: Interpretive Data Glucose is assumed to be non-fasting. Fasting Glucose reference ranges are: 0 - 150 years: 70 mg/dL - 99 mg/dL Current interpretive data was last revised on 2014. POC Performer [id number] Amanda Huff [employer] POC Device Number [id number] Amanda Huff [employer] Blood 01/13/2025 2:00 AM CDT 01/13/2025 2:00 AM CDT Mary Lagunas MD LAB POCT ORDERABLES - DEVIC E Final Result Performing Organization Address [facility] Phone Number [facility]ID [facility] [address] [facility] [place] [address] * CT Abdomen Pelvis W Contrast (01/12/2025 [...] provided by the tele-radiologist. Dictated by: Wilberto Feuntes MD The radiology attending physician has personally [...] was last revised on 2014. POC Performer [id number] [facility] POC Device Number [id number] [facility] Blood 01/12/2025 8:00 PM CDT 01/12/2025 8:00 PM CDT Notinfile Unknown LAB POCT ORDERABLES - DEVICE F inal Result DAVID VIRGENW[facility] [address] [facility] Department [place] [address] * Urinalysis reflex to microscopic and culture Urine (01/12/2025 7:56 PM CDT) Color, ur Straw Yellow Clarity, ur Clear Clear [facility] Specific gravity, ur 1.017 1.003 - 1.030 [facility] pH, urine 6.0 [facility] Comment: Interpretive Data U rine pH is affected by diet, medications, systemic acid-base disturbances, and renal tubular function. pH may affect urinary stone formation. For example, urine pH below 6.0 may help reduce the tendency for calcium phosphate stones and pH greater than 6.0 may reduce the tendency for uric acid stone formation. Source: [facility] Current Interpretive Data was last [...] GENERAL ORD ERABLES Final Result DAVID SWEENEYCH [address] [facility]. Department [place] [address] * eGFR (01/12/2025 4:53 PM CDT) eGFR [...] LAB BLOOD ORDERABLES Final Res ult [facility] [address] [facility]. Department [place] [address] * Differential, auto (01/12/2025 4:53 PM CDT) [...] [facility]ER [facility] Neutrophil pct 74.3 % [facility] Comment: Interpretive Data Percent cell count reference ranges are not reported, since discordance with absolute values may lead to misinterpretation of CBC data. Current Interpretive Data was last revised on 2017. Imm gran pct 0.3 % [facility] [facility] Comment: Interpretive Data Percent cell count reference ranges are not reported, since discordance with absolute values may lead to misinterpretation of CBC data. Current Interpretive Data was last revised on 2017. Lymphocyte pct 13.5 % [facility] Comment: Interpretive Data Percent cell count reference ranges are not reported, since discordance with absolute values may lead to misinterpretation of CBC data. Current Interpretive Data was last revised on 2017. Monocyte pct 8.6 % [facility] Comment: Interpretive Data Percent cell count reference ranges are not reported, since discordance with absolute values may lead to misinterpretation of CBC data. Current Interpretive Data was last revised on 2017. Eosinophil pct 2.8 % [facility] Comment: Interpretive Data Percent cell count reference ranges are not reported, since discordance with absolute values may lead to misinterpretation of CBC data. Current Interpretive Data was last revised on 2017. Basophil pct 0.5 % [facility] Comment: Interpretive Data Percent cell count reference ranges are not reported, since discordance with absolute values may lead to misinterpretation of CBC data. Current Interpretive Data was last revised on 2017. Blood 01/12/2025 4:53 PM CDT 01/12/2025 5:08 PM CDT us Chaz Hernandez MD LAB BLOOD ORDERABLES Final Res ult [facility] [address] [facility]. Department [place] [address] * (ABNORMAL) CBC with auto differential (01/12/2025 4:53 PM CDT) WBC 6.07 3.80 - 9.90 K/cumm Hgb 10.9(L) 13.0 - 17.5 g/dL [facility] Hct 34.7(L) 38.9 - 50.3 % [facility] Plt 201 150 - 400 K/cumm [facility] MPV 10.5 9.1 - 12.3 fL [facility] RBC 4.17(L) 4.30 - 5.80 M/cumm [facility] MCV 83.2 81.3 - 96.4 fL [facility] MCH 26.1(L) 27.1 - 33.3 pg [facility] MCHC 31.4(L) 32.3 - 35.7 g/dL [facility] RDW CV 16.9(H) 11.1 - 14.9 % [facility] RDW SD 50.7(H) 35.7 - 48.1 fL [facility] NRBC abs 0.00 0.00 - 0.01 K/cumm [facility] Blood Venous blood specimen / Unknown 01/12/2025 4:53 PM CDT 01/12/2025 5:08 PM CDT us Chaz Hernandez MD LAB BLOOD ORDERABLES Final Res ult Performing Organization Address [facility]/ZIP Co de Phone Number [facility] [address] [facility]. Department [employer] [place] [address] * (ABNORMAL) Lipase (01/12/2025 4:53 PM CDT) Lipase 5(L) 10 - 99 Units/L Blood Venous blood specimen / Unknown 01/12/2025 4:53 PM CDT 01/12/2025 5:08 PM CDT Chaz Hernandez MD LAB BLOOD ORDERABLES Final Res ult Performing Organization Address [facility] Co de Phone Number [facility] [address] [facility]. Department [place] [address] * (ABNORMAL) Comprehensive metabolic panel (01/12/2025 4:53 PM CDT) Pathologist [facility] Sodium 136 135 - 145 mmol/L Potassium, pl 4.4 3.3 - 4.9 mmol/L [facility] Chloride 104 97 - 110 mmol/L [facility] CO2 22 22 - 32 mmol/L [facility] Anion gap 11 2 - 15 mmol/L [facility] BUN 21 6 - 25 mg/dL [facility] Creatinine 0.70(L) 0.80 - 1.30 mg/dL [facility] Glucose 296(H) 70 - 199 mg/dL [facility] Comment: Interpretive Data Fasting glucose >/= [...] LAB BLOOD ORDERABLES Final Res ult [facility] [address] [facility]. Department [place] [address] * POCT glucose (01/06/2025 8:52 AM CDT) [...] LAB BLOOD ORDERABLES nal Result [facility] [address] [facility]. Department of Laboratories [place], [place] [address] * Colonoscopy (11/11/2024 11:01 AM CDT) Anatomical Region Laterality Modality Other Narrative Procedure Note Trang Ryan MD - 11/11/2024 11:01 AM CDT ENDOSCOPY LAB Patient Name: Rah Henson Procedure Date: 11/11/2024 11:01 AM Date of : 1955 Admit Type: Outpatient Age: 69 Gender: Male Attending MD: Trang Ryan M.D. Room: [facility] ENDOSCOPY ROOM 01 Note Status: Finalized [...] The scope was passed under direct vision.The [id number] was introduced through the anusand advanced to [...] Clemencia Beatty NP LAB URINE ORDERABLES Tete bennett Result [facility] [address] [address] * PSA screen (04/16/2020 7:01 AM CDT) PSA 0.1 < OR = 4.0 ng/mL [facility] Comment: The total PSA value from this assay system is standardized against the WHO standard. The test result will be approximately 20% lower when compared to the equimolar-standardized total PSA (April May[place]). Comparison of serial PSA results should be [...] LAB BLOOD ORDERABLES Final R esult MILENA [facility] [address] [place] [address] from Last 3 Months or Most Recently Relevant to Health Maintenance Insurance HUMANA CHOICE MEDICARE PPO Member Subscriber Plan / Payer (Ef fective 2020-Present) Name:Rah Henson Relation to Subscriber:Self Name:Rah Henson Payer ID:[id number] (NAIC) Type:MEDICARE RISK OTHER Address: [address] GOLD ADVANTAGE CON AETNA [facility] GOLD REF AETNA SENIOR SUPPLEMENT HUMANA CHOICE MEDICARE PPO MEDICARE IDPA HUMANA CHOICE MEDICARE PPO IDPA HUMANA CHOICE MEDICARE PPO HUMANA MEDICARE HMO Advance Directives For more information, please contact: [phone] Documents on File Type Date Recorded Patient Second Crusher Expl anation ADVANCE DIRECTIVE 05/22/2023 5:43 PM Claudine Ellis POWER OF TAKE DOWN INSPECTOR-MEDICAL ADVANCE DIRECTIVE 04/12/2023 6:16 PM [place] R OF TAKE DOWN INSPECTOR-MEDICAL ADVANCE DIRECTIVE 04/12/2023 6:09 PM [place] R OF TAKE DOWN INSPECTOR-MEDICAL * Full Code (Latest Code Status on [...] Communication Claudine Henson Spouse Health Care Agent [email or web address] (P) Meghan Ellis Daughter First Alternate Health Care Agent Sushant Henson Son Second Alternate Health Care Agent [email or web address] (P) Care Teams Irrigation Installation Specialist Relationship Specialty Start Date End Date Kenton Ricks MD PCP - General 08/14/16 Pebbles Nelson MD Referring Physician Cardiology 02/07/19 Aylin Russ MD [address] [facility] [address] [place] [address] Referring Physician Pulmonary Disease 02/07/19 Maricruz Ramirez, 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 [address] [place] [address] Nurse Practitioner Cardiovascular Disease 09/25/21 Joanne Lopez, RN Registered Nurse Pulmonary Disease 08/24/22 Ben Chahal MD PhD 10 [facility] # 2 [place] [address] Medical Oncologist/Hematologis t Medical Oncology 10/05/22 Giovanna Alexis MD [address] [place] [address] Radiation Oncologist Radiation Oncology 03/09/23 Abby Higgins MD PhD [address] DIV IM MEDICAL ONCOLOGY, [facility] 7A, 7B, [address]C [place] [address] Medical Oncologist/Hematologis t Medical Oncology 05/10/23 Adrian Martinez MD [address] DIV SURG TRANSPLANT, [address] [place] [address] Surgical Oncologist Surgical Oncology 05/28/23 Vera Pérez PA [address] [place] [id number] [place] [address] Physician Senior Ui Web Developer Colon and Rectal Surgery 09/13/23 Jim Frausto MD [address] [facility] [phone] [place] [address] Surgeon Colon and Rectal Surgery 11/21/23
--- OUTSIDE RECORDS SUMMARY | 2025-04-07 21:13 | XMS_ITS | Encounter Summary ---
Author Organization [facility] Address [address] [place] [address] Phone Care Team Providers Care Director Of Loss Prevention Name Role Phone Kenton Ricks MD Primary Care Provider + [phone] Kenton Ricks MD Primary Care Provider + [phone] Pebbles Nelson MD Unavailable [phone] Aylin Russ MD Unavailable [phone] Maricruz Ramirez NP Unavailable [phone] Joanne Lopez RN Unavailable Padmini Leatha Carter Unavailable Unavailable Ben Chahal MD PhD Unavailable [phone] Chace Oliva MD Unavailable [phone] Giovanna Alexis MD Unavailable Taisha Suarez RN Unavailable Unavaila Sandra Aguirre MD Unavailable [phone] Abby Higgins MD PhD Unavailable + Adrian Martinez MD Unavailable Vera Pérez Unavailable Jim Frausto MD Unavailable Анна Robert RN Unavailable [phone] Encounter Details Date Type Department Care Team (Late st Contact Info) Description 08/18/2014 Orders Only [facility] IM CAR CLINCONV Provider, MD Max [address] [place] [address] Social History Tobacco Use Types Packs/Day Years Used Date Smoking Tobacco: Never Assessed Sex and Gender Information Value Date Recorded Sex Assigned at Not on file Legal Sex Male 12:58 AM STAFF CLIMATE SCIENTIST Gender Identity Male 11/11/2018 10:31 AM CDT Sexual Orientation Straight 06/09/2019 5: 34 PM STAFF CLIMATE SCIENTIST documented as of this encounter Plan of [...] COVID: Suspected 06/07/2023 06/07/2023 06/07/2023 12:46 PM STAFF CLIMATE SCIENTIST COVID19 06/07/2023 06/07/2023 06/22/2023 3:06 AM STAFF CLIMATE SCIENTIST COVID: Recovered Comment:Added based on recent COVID infection. 06/22/2023 06/22/2023 09/20/2023 3:05 AM C DT COVID: Suspected 07/24/2023 07/24/2023 07/24/2023 3:53 PM STAFF CLIMATE SCIENTIST Diarrhea 07/30/2023 07/30/2023 08/13/2023 3:05 AM STAFF CLIMATE SCIENTIST COVID: Suspected 08/30/2023 08/30/2023 08/30/2023 4:52 PM STAFF CLIMATE SCIENTIST COVID: Suspected 10/12/2023 10/12/2023 10/12/2023 7:57 PM CDT Rhino/Enterovirus 10/12/2023 10/12/2023 10/26/2023 3:05 AM CDT COVID: Suspected 07/10/2024 07/10/2024 07/10/2024 4:53 PM STAFF CLIMATE SCIENTIST COVID: Suspected Comment:07/16/2024 IP Review: no outstanding test, last RPP negative. Mary Tiwari RN 07/16/2024 07/16/2024 10:51 AM STAFF CLIMATE SCIENTIST COVID19 Comment:07/16/2024 IP Review: added by RN, RPP negative. Mary Tiwari RN 07/16/2024 07/16/2024 07/16/2024 10:51 AM STAFF CLIMATE SCIENTIST MRSA Comment:nasalMRSA Isolation [facility] 09/03/24 07/16/2024 08/15/2024 09/03/2024 6:[address] C. difficile suspected 07/19/2024 07/19/202407/19 2:34 PM STAFF CLIMATE SCIENTIST COVID: Suspected 07/23/2024 07/23/2024 07/23/2024 11:28 PM STAFF CLIMATE SCIENTIST C. difficile suspected 07/23/2024 07/24/202407/24 10:31 AM STAFF CLIMATE SCIENTIST Norovirus suspected 07/23/2024 07/24/2024 07/24/19 9:37 AM STAFF CLIMATE SCIENTIST VRE Comment:Contact Precautions (gown and gloves) - not eligible for IP review until 6 months after positive culture - Jerod QURESHI, CONY 10/01/24 07/24/2024 09/20/2024 03/19/2025 7:26 PM C DT COVID: Suspected 08/09/2024 08/09/2024 08/09/2024 9:40 AM STAFF CLIMATE SCIENTIST Influenza, adult Comment:08/26/2024 IP Review: pt afebrile but on antipyretics. Needs 24 hours off antipyretics and symptoms significantly improved/resolved in order for isolation to be discontinued. Mary Tiwari RN 08/15/2024 08/15/2024 08/29/2024 3:06 AM STAFF CLIMATE SCIENTIST Coronavirus, droplet 08/15/2024 08/15/202408/29/ 025 3:06 AM STAFF CLIMATE SCIENTIST C. difficile suspected 09/19/2024 09/19/202409/20 3:05 AM [...] documented as of this encounter Care Teams Director Of Loss Prevention Relationship Specialty Start Date End Date Kenton Ricks MD PCP - General 08/14/16 Kenton Ricks MD PCP - General 09/17/08 08/13/16 Pebbles Nelson MD Referring Physician Cardiology 02/07/19 Aylin Russ MD 4523 [facility] [address]052 [place] [address] Referring Physician Pulmonary Disease 02/07/19 Maricruz Ramirez NP 45[address] [facility] [address] [place] [address] Nurse Practitioner Cardiovascular Disease 09/25/21 Joanne Lopez, CONY Registered Nurse Pulmonary Disease 08/24/22 Leatha Cristina RMA Surgical Prehabilitation and Readiness (SPAR) Coordinator 09/01/22 01/02/23 Ben Chahal MD PhD 10 [facility] # 2 [place] [address] Medical Oncologist/Hatchery Manager Medical Oncology 10/05/22 Chace Oliva MD [address] [facility] [address] [place] [address] Consulting Physician Infectious Diseases 12/22/2204/01 Giovanna Alexis MD [address] [place] [address] Radiation Oncologist Radiation Oncology 03/09/23 Taisha Suarez, wire weaver cloth Prehabilitation and Readiness (SPAR) Coordinator General Surgery 03/20/23 04/10/23 Sandra Ma MD [address] DIV IM MEDICAL ONCOLOGY, [facility] 7A, 7B, 7C [place] [address] Consulting Physician Medical Oncology 04/25/23 05/09/23 Abby Higgins MD PhD [address] DIV IM MEDICAL ONCOLOGY, [facility] 7A, 7B, [address] [place] [address] Medical Oncologist/Hatchery Manager Medical Oncology 05/10/23 Adrian Martinez MD [address] DIV SURG TRANSPLANT, [facility] [address] [place] [address] Surgical Oncologist Surgical Oncology 05/28/23 Vera Pérez PA [address] [place] [phone] [place] [address] Physician Injection Mold Technician Colon and Rectal Surgery 09/13/23 Jim Frausto MD [address] [facility] [phone] [place] [address] Surgeon Colon and Rectal Surgery 11/21/23 Анна Robert, RN 4590 [facility] [address] [place] [address] SHOP Outpatient Building Architectural Designer 09/29/24 10/01/24 documented as of this encounter
--- OUTSIDE RECORDS SUMMARY | 2025-04-07 21:13 | XMS_ITS | Encounter Summary ---
Author Organization [facility] Address [address] [place] [address] Phone Care Team Providers Care Small Lot Operator Name Role Phone Kenton Ricks MD Primary Care Provider + [phone] Kenton Ricks MD Primary Care Provider + [phone] Pebbles Nelson MD Unavailable [phone] Aylin Russ MD Unavailable [phone] Maricruz Ramirez NP Unavailable [phone] Joanne Lopez RN Unavailable Padmini Leatha Carter Unavailable Unavailable Ben Chahal MD PhD Unavailable [phone] Chace Oliva MD Unavailable [phone] Giovanna Alexis MD Unavailable Taisha Suarez RN Unavailable Unavaila Sandra Aguirre MD Unavailable [phone] Abby Higgins MD PhD Unavailable + Adrian Martinez MD Unavailable Vera Pérez Unavailable [phone] Jim Frausto MD Unavailable [phone] Анна Robert RN Unavailable [phone] Encounter Details Date Type Department Care Team (Late st Contact Info) Description 11/30/2014 Orders Only [facility] IM CAR CLINCONV Provider, MD Max [address] [place] [address] Social History Tobacco Use Types Packs/Day Years Used Date Smoking Tobacco: Never Assessed Sex and Gender Information Value Date Recorded Sex Assigned at Not on file Legal Sex Male 12:58 AM INSTRUMENT LENS GRINDER APPRENTICE Gender Identity Male 11/11/2018 10:31 AM CDT Sexual Orientation Straight 06/09/2019 5: 34 PM INSTRUMENT LENS GRINDER APPRENTICE documented as of this encounter Plan of [...] COVID: Suspected 06/07/2023 06/07/2023 06/07/2023 12:46 PM INSTRUMENT LENS GRINDER APPRENTICE COVID19 06/07/2023 06/07/2023 06/22/2023 3:06 AM INSTRUMENT LENS GRINDER APPRENTICE COVID: Recovered Comment:Added based on recent COVID infection. 06/22/2023 06/22/2023 09/20/2023 3:05 AM C DT COVID: Suspected 07/24/2023 07/24/2023 07/24/2023 3:53 PM INSTRUMENT LENS GRINDER APPRENTICE Diarrhea 07/30/2023 07/30/2023 08/13/2023 3:05 AM INSTRUMENT LENS GRINDER APPRENTICE COVID: Suspected 08/30/2023 08/30/2023 08/30/2023 4:52 PM INSTRUMENT LENS GRINDER APPRENTICE COVID: Suspected 10/12/2023 10/12/2023 10/12/2023 7:57 PM CDT Rhino/Enterovirus 10/12/2023 10/12/2023 10/26/2023 3:05 AM CDT COVID: Suspected 07/10/2024 07/10/2024 07/10/2024 4:53 PM INSTRUMENT LENS GRINDER APPRENTICE COVID: Suspected Comment:07/16/2024 IP Review: no outstanding test, last RPP negative. Mary Tiwari RN 07/16/2024 07/16/2024 10:51 AM INSTRUMENT LENS GRINDER APPRENTICE COVID19 Comment:07/16/2024 IP Review: added by RN, RPP negative. Mary Tiwari RN 07/16/2024 07/16/2024 07/16/2024 10:51 AM INSTRUMENT LENS GRINDER APPRENTICE MRSA Comment:nasalMRSA Isolation Correction 09/03/24 07/16/2024 08/15/2024 09/03/2024 6:[address] C. difficile suspected 07/19/2024 07/19/202407/19 2:34 PM INSTRUMENT LENS GRINDER APPRENTICE COVID: Suspected 07/23/2024 07/23/2024 07/23/2024 11:28 PM INSTRUMENT LENS GRINDER APPRENTICE C. difficile suspected 07/23/2024 07/24/202407/24 10:31 AM INSTRUMENT LENS GRINDER APPRENTICE Norovirus suspected 07/23/2024 07/24/2024 07/24/19 9:37 AM INSTRUMENT LENS GRINDER APPRENTICE VRE Comment:Contact Precautions (gown and gloves) - not eligible for IP review until 6 months after positive culture - Jerod QURESHI, CONY 10/01/24 07/24/2024 09/20/2024 03/19/2025 7:26 PM C DT COVID: Suspected 08/09/2024 08/09/2024 08/09/2024 9:40 AM INSTRUMENT LENS GRINDER APPRENTICE Influenza, adult Comment:08/26/2024 IP Review: pt afebrile but on antipyretics. Needs 24 hours off antipyretics and symptoms significantly improved/resolved in order for isolation to be discontinued. Mary Tiwari RN 08/15/2024 08/15/2024 08/29/2024 3:06 AM INSTRUMENT LENS GRINDER APPRENTICE Coronavirus, droplet 08/15/2024 08/15/202408/29/ 025 3:06 AM INSTRUMENT LENS GRINDER APPRENTICE C. difficile suspected 09/19/2024 09/19/202409/20 3:05 AM [...] documented as of this encounter Care Teams Small Lot Operator Relationship Specialty Start Date End Date Kenton Ricks MD PCP - General 08/14/16 Kenton Ricks MD PCP - General 09/17/08 08/13/16 Pebbles Nelson MD Referring Physician Cardiology 02/07/19 Aylin Russ MD 4523 [facility] [address] [place] [address] Referring Physician Pulmonary Disease 02/07/19 Maricruz Ramirez NP 4523 [facility] [address] [place] [address] Nurse Practitioner Cardiovascular Disease 09/25/21 Joanne Lopez, CONY Registered Nurse Pulmonary Disease 08/24/22 Leatha Cristina RMA Surgical Prehabilitation and Readiness (SPAR) Coordinator 09/01/22 01/02/23 Ben Chahal MD PhD 10 [facility] # 2 [place] [address] Medical Oncologist/Tractor Mechanic Apprentice Medical Oncology 10/05/22 Chace Oliva MD [address] [facility] [address] [place] [address] Consulting Physician Infectious Diseases 12/22/2204/01 Giovanna Alexis MD [address] # LL LL [address] [place] [address] Radiation Oncologist Radiation Oncology 03/09/23 Taisha Suarez, hide mill man Prehabilitation and Readiness (SPAR) Coordinator General Surgery 03/20/23 04/10/23 Sandra Ma MD [address] [address] DIV IM MEDICAL ONCOLOGY, [facility] 7A, 7B, [address] [place] [address] Consulting Physician Medical Oncology 04/25/23 05/09/23 Abby Higgins MD PhD [address] DIV IM MEDICAL ONCOLOGY, [facility] 7A, 7B, [address] [place] [address] Medical Oncologist/Tractor Mechanic Apprentice Medical Oncology 05/10/23 Adrian Martinez MD [address] DIV SURG TRANSPLANT, [facility] [address] [place] [address] Surgical Oncologist Surgical Oncology 05/28/23 Vera Pérez PA [address] [place] [phone] [place] [address] Physician Reed Maker Colon and Rectal Surgery 09/13/23 Jim Frausto MD [address] [facility] [phone] [place] [address] Surgeon Colon and Rectal Surgery 11/21/23 Анна Robert, RN 4590 [facility] [address] [place] [address] SHOP Outpatient Sports Psychologist 09/29/24 10/01/24 documented as of this encounter
--- OUTSIDE RECORDS SUMMARY | 2025-04-07 21:13 | XMS_ITS | Encounter Summary ---
Author Organization [facility] Address [address] [place] [address] Care Team Providers Care Loom Starter Name Role Phone Kenton Ricks MD Primary Care Provider [phone] Encounter Details Date Type Department Care Team (Late st Contact Info) Description 07/23/2001 Outpatient Historical Division of Neurology [address] [address] Shabbir Villavicencio MD [address] [facility] [address] [address] [place] [address] Social History Tobacco Use Types Packs/Day Years Used Date Smoking Tobacco: Never Assessed Sex and Gender Information Value Date Recorded Sex Assigned at Not on file Legal Sex Male 4:35 AM SENIOR MORTGAGE UNDERWRITER Gender Identity Not on file Sexual Orientation Not on file documented as of this encounter Plan of Treatment Not on file documented as of this encounter Visit Diagnoses Not on filedocumented in this encounter Care Teams Loom Starter Relationship Specialty Start Date End Date Kenton Ricks MD [address] [place] [address] PCP - General Family Practice 11/15/18 documented as of this encounter
--- OUTSIDE RECORDS SUMMARY | 2025-04-07 21:13 | XMS_ITS | Encounter Summary ---
Author Organization [facility] Address [address] [place] [address] Phone Care Team Providers Care Family Medicine Chair Name Role Phone Kenton Ricks MD Primary Care Provider + [phone] Kenton Ricks MD Primary Care Provider + [phone] Pebbles Nelson MD Unavailable [phone] Aylin Russ MD Unavailable [phone] Maricruz Ramirez NP Unavailable [phone] Joanne Lopez RN Unavailable Padmini Leatha Carter Unavailable Unavailable Ben Chahal MD PhD Unavailable [phone] Chace Oliva MD Unavailable [phone] Giovanna Alexis MD Unavailable Taisha Suarez RN Unavailable Unavaila Sandra Agurire MD Unavailable [phone] Abby Higgins MD PhD Unavailable + Adrian Martinez MD Unavailable Vera Pérez Unavailable Jim Frausto MD Unavailable [phone] Анна Robert RN Unavailable [phone] Encounter Details Date Type Department Care Team (Late st Contact Info) Description 06/02/2014 Orders Only [facility] Provider, MD [place] [address] [place] [address] Social History Tobacco Use Types Packs/Day Years Used Date Smoking Tobacco: Never Assessed Sex and Gender Information Value Date Recorded Sex Assigned at Not on file Legal Sex Male 12:58 AM MANAGER OF ENTERPRISE Gender Identity Male 11/11/2018 10:31 AM CDT Sexual Orientation Straight 06/09/2019 5: 34 PM MANAGER OF ENTERPRISE documented as of this encounter Plan [...] Suspected 06/07/2023 06/07/2023 06/07/2023 12:46 PM MANAGER OF ENTERPRISE COVID19 06/07/2023 06/07/2023 06/22/2023 3:06 AM MANAGER OF ENTERPRISE COVID: Recovered Comment:Added based on recent COVID infection. 06/22/2023 06/22/2023 09/20/2023 3:05 AM C DT COVID: Suspected 07/24/2023 07/24/2023 07/24/2023 3:53 PM MANAGER OF ENTERPRISE Diarrhea 07/30/2023 07/30/2023 08/13/2023 3:05 AM MANAGER OF ENTERPRISE COVID: Suspected 08/30/2023 08/30/2023 08/30/2023 4:52 PM MANAGER OF ENTERPRISE COVID: Suspected 10/12/2023 10/12/2023 10/12/2023 7:57 PM CDT Rhino/Enterovirus 10/12/2023 10/12/2023 10/26/2023 3:05 AM CDT COVID: Suspected 07/10/2024 07/10/2024 07/10/2024 4:53 PM MANAGER OF ENTERPRISE COVID: Suspected Comment:07/16/2024 IP Review: no outstanding test, last RPP negative. Mary Tiwari RN 07/16/2024 07/16/2024 10:51 AM MANAGER OF ENTERPRISE COVID19 Comment:07/16/2024 IP Review: added by RN, RPP negative. Mary Tiwari RN 07/16/2024 07/16/2024 07/16/2024 10:51 AM MANAGER OF ENTERPRISE MRSA Comment:nasalMRSA Isolation [facility] 09/03/24 07/16/2024 08/15/2024 09/03/2024 6:[address] C. difficile suspected 07/19/2024 07/19/202407/19 2:34 PM MANAGER OF ENTERPRISE COVID: Suspected 07/23/2024 07/23/2024 07/23/2024 11:28 PM MANAGER OF ENTERPRISE C. difficile suspected 07/23/2024 07/24/202407/24 10:31 AM MANAGER OF ENTERPRISE Norovirus suspected 07/23/2024 07/24/2024 07/24/19 9:37 AM MANAGER OF ENTERPRISE VRE Comment:Contact Precautions (gown and gloves) - not eligible for IP review until 6 months after positive culture - Jerod QURESHI, CONY 10/01/24 07/24/2024 09/20/2024 03/19/2025 7:26 PM C DT COVID: Suspected 08/09/2024 08/09/2024 08/09/2024 9:40 AM MANAGER OF ENTERPRISE Influenza, adult Comment:08/26/2024 IP Review: pt afebrile but on antipyretics. Needs 24 hours off antipyretics and symptoms significantly improved/resolved in order for isolation to be discontinued. Mary Tiwari RN 08/15/2024 08/15/2024 08/29/2024 3:06 AM MANAGER OF ENTERPRISE Coronavirus, droplet 08/15/2024 08/15/202408/29/ 025 3:06 AM MANAGER OF ENTERPRISE C. difficile suspected 09/19/2024 09/19/202409/20 3:05 AM [...] documented as of this encounter Care Teams Family Medicine Chair Relationship Specialty Start Date End Date Kenton Ricks MD PCP - General 08/14/16 Kenton Ricks MD PCP - General 09/17/08 08/13/16 Pebbles Nelson MD Referring Physician Cardiology 02/07/19 Aylin Russ MD [address] [facility] [address] [place] [address] Referring Physician Pulmonary Disease 02/07/19 Maricruz Ramirez NP [address] [facility] [address] [place] [address] Nurse Practitioner Cardiovascular Disease 09/25/21 Joanne Lopez, [place] Registered Nurse Pulmonary Disease 08/24/22 Leatha Cristina RMA Surgical Prehabilitation and Readiness (SPAR) Coordinator 09/01/22 01/02/23 Ben Chahal MD PhD [address] [facility] [address] [place] [address] Medical Oncologist/Information Architect Medical Oncology 10/05/22 Chace Oliva MD [address] [facility] [address] [place] [address] Consulting Physician Infectious Diseases 12/22/2204/01 Giovanna Alexis MD [address] [place] [address] Radiation Oncologist Radiation Oncology 03/09/23 Taisha Suarez, tourism radio presenter Prehabilitation and Readiness (SPAR) Coordinator General Surgery 03/20/23 04/10/23 Sandra Ma MD [address] [address] [facility] [address] DIV IM MEDICAL ONCOLOGY, [address]A, 7B, 7C [place] [address] Consulting Physician Medical Oncology 04/25/23 05/09/23 Abby Higgins MD PhD [address] DIV IM MEDICAL ONCOLOGY, [address] 7A, 7B, [address]C [place] [address] Medical Oncologist/Information Architect Medical Oncology 05/10/23 Adrian Martinez MD [address] DIV SURG TRANSPLANT, [facility] [address] [place] [address] Surgical Oncologist Surgical Oncology 05/28/23 Vera Pérez PA [address] [place] [id number] [place] [address] Physician Pipe Coverer Colon and Rectal Surgery 09/13/23 Jim Frausto MD [address] [facility] [phone] [place] [address] Surgeon Colon and Rectal Surgery 11/21/23 Анна Robert, RN [address] [facility] [address] [place] [address] SHOP Outpatient Crackling Press Operator 09/29/24 10/01/24 documented as of this encounter
--- OUTSIDE RECORDS SUMMARY | 2025-04-07 21:13 | XMS_ITS | Encounter Summary ---
Author Organization [facility] Address [address] [place] [address] Phone Care Team Providers Care Lens Grinding Machine Operator Name Role Phone Kenton Ricks MD Primary Care Provider + [phone] Kenton Ricks MD Primary Care Provider + [phone] Pebbles Nelson MD Unavailable [phone] Aylin Russ MD Unavailable [phone] Maricruz Ramirez NP Unavailable [phone] Joanne Lopez RN Unavailable Padmini Leatha Carter Unavailable Unavailable Ben Chahal MD PhD Unavailable [phone] Chace Oliva MD Unavailable [phone] Giovanna Alexis MD Unavailable Taisha Suarez RN Unavailable Unavaila Sandra Aguirre MD Unavailable [phone] Abby Higgins MD PhD Unavailable + Adrian Martinez MD Unavailable Vera Pérez Unavailable Jim Frausto MD Unavailable [phone] Анна Robert RN Unavailable [phone] Encounter Details Date Type Department Care Team (Late st Contact Info) Description 05/14/2015 Orders Only [facility] Provider, MD [place] [address] [place] [address] Social History Tobacco Use Types Packs/Day Years Used Date Smoking Tobacco: Never Assessed Sex and Gender Information Value Date Recorded Sex Assigned at Not on file Legal Sex Male 12:58 AM WIRE MACHINE CUTTER Gender Identity Male 11/11/2018 10:31 AM CDT Sexual Orientation Straight 06/09/2019 5: 34 PM WIRE MACHINE CUTTER documented as of this encounter Plan of [...] COVID: Suspected 06/07/2023 06/07/2023 06/07/2023 12:46 PM WIRE MACHINE CUTTER COVID19 06/07/2023 06/07/2023 06/22/2023 3:06 AM WIRE MACHINE CUTTER COVID: Recovered Comment:Added based on recent COVID infection. 06/22/2023 06/22/2023 09/20/2023 3:05 AM C DT COVID: Suspected 07/24/2023 07/24/2023 07/24/2023 3:53 PM WIRE MACHINE CUTTER Diarrhea 07/30/2023 07/30/2023 08/13/2023 3:05 AM WIRE MACHINE CUTTER COVID: Suspected 08/30/2023 08/30/2023 08/30/2023 4:52 PM WIRE MACHINE CUTTER COVID: Suspected 10/12/2023 10/12/2023 10/12/2023 7:57 PM CDT Rhino/Enterovirus 10/12/2023 10/12/2023 10/26/2023 3:05 AM CDT COVID: Suspected 07/10/2024 07/10/2024 07/10/2024 4:53 PM WIRE MACHINE CUTTER COVID: Suspected Comment:07/16/2024 IP Review: no outstanding test, last RPP negative. Mary Tiwari RN 07/16/2024 07/16/2024 10:51 AM WIRE MACHINE CUTTER COVID19 Comment:07/16/2024 IP Review: added by RN, RPP negative. Mary Tiwari RN 07/16/2024 07/16/2024 07/16/2024 10:51 AM WIRE MACHINE CUTTER MRSA Comment:nasalMRSA Isolation [facility] 09/03/24 07/16/2024 08/15/2024 09/03/2024 6:[address] C. difficile suspected 07/19/2024 07/19/202407/19 2:34 PM WIRE MACHINE CUTTER COVID: Suspected 07/23/2024 07/23/2024 07/23/2024 11:28 PM WIRE MACHINE CUTTER C. difficile suspected 07/23/2024 07/24/202407/24 10:31 AM WIRE MACHINE CUTTER Norovirus suspected 07/23/2024 07/24/2024 07/24/19 9:37 AM WIRE MACHINE CUTTER VRE Comment:Contact Precautions (gown and gloves) - not eligible for IP review until 6 months after positive culture - Jerod QURESHI, CONY 10/01/24 07/24/2024 09/20/2024 03/19/2025 7:26 PM C DT COVID: Suspected 08/09/2024 08/09/2024 08/09/2024 9:40 AM WIRE MACHINE CUTTER Influenza, adult Comment:08/26/2024 IP Review: pt afebrile but on antipyretics. Needs 24 hours off antipyretics and symptoms significantly improved/resolved in order for isolation to be discontinued. Mary Tiwari RN 08/15/2024 08/15/2024 08/29/2024 3:06 AM WIRE MACHINE CUTTER Coronavirus, droplet 08/15/2024 08/15/202408/29/ 025 3:06 AM WIRE MACHINE CUTTER C. difficile suspected 09/19/2024 09/19/202409/20 3:05 AM [...] documented as of this encounter Care Teams Lens Grinding Machine Operator Relationship Specialty Start Date End Date Kenton Ricks MD PCP - General 08/14/16 Kenton Ricks MD PCP - General 09/17/08 08/13/16 Pebbles Nelson MD Referring Physician Cardiology 02/07/19 Aylin Russ MD [address] [facility] [address] [place] [address] Referring Physician Pulmonary Disease 02/07/19 Maricruz Ramirez NP [address] [facility] [address] [place] [address] Nurse Practitioner Cardiovascular Disease 09/25/21 Joanne Lopez, [place] Registered Nurse Pulmonary Disease 08/24/22 Leatha Cristina RMA Surgical Prehabilitation and Readiness (SPAR) Coordinator 09/01/22 01/02/23 Ben Chahal MD PhD [address] [facility] # 2 [place] [address] Medical Oncologist/Distillery Worker Medical Oncology 10/05/22 Chace Oliva MD [address] [facility] [address] [place] [address] Consulting Physician Infectious Diseases 12/22/2204/01 Giovanna Alexis MD [address] LL [address] [place] [address] Radiation Oncologist Radiation Oncology 03/09/23 Taisha Suarez, disc jockey Prehabilitation and Readiness (SPAR) Coordinator General Surgery 03/20/23 04/10/23 Sandra Ma MD [address] [address] [facility] IM MEDICAL ONCOLOGY, ABDI 7A, 7B, 7C [place] [address] Consulting Physician Medical Oncology 04/25/23 05/09/23 Abby Higgins MD PhD [address] DIV IM MEDICAL ONCOLOGY, ABDI 7A, 7B, [address] [place] [address] Medical Oncologist/Distillery Worker Medical Oncology 05/10/23 Adrian Martinez MD [address] DIV SURG TRANSPLANT, [facility] [address] [place] [address] Surgical Oncologist Surgical Oncology 05/28/23 Vera Pérez PA [address] [place] [id number] [place] [address] Physician Yeast Washer Colon and Rectal Surgery 09/13/23 Jim Frausto MD [address] [facility] [phone] [place] [address] Surgeon Colon and Rectal Surgery 11/21/23 Анна Robert, RN [address] [facility] [address] [place] [address] SHOP Outpatient Roustabout Crew Leader 09/29/24 10/01/24 documented as of this encounter
--- OUTSIDE RECORDS SUMMARY | 2025-04-07 21:13 | XMS_ITS | Clinical Summary ---
Author Organization [facility] [employer] Address [address] [facility] [place] [address] Care Team Providers Care Refrigerator Tester Name Role Phone Kenton Ricks MD Primary Care Provider [phone] Source Comments [facility] [employer],non-owned Affiliates and Associated Physician Practices is amultiple site organization consisting of ambulatory clinics and hospital sitesin [place], [place], [place] and [place]. This disclosure is being madepursuant to the Care Everywhere program and may not contain all information available regarding this patient. Last updated 18.[facility] [employer] Medications * Be aware that medications may [...] on file Legal Sex Male 6:18 AM FASTENER SEWING MACHINE OPERATOR Gender Identity Not on file Sexual Orientation Not on file Last Filed Vital Signs Vital Sign Reading Time Taken Comments Blood Pressure 126/67 07/06/2017 11:17 AM FASTENER SEWING MACHINE OPERATOR Pulse 60 07/06/2017 11:17 AM FASTENER SEWING MACHINE OPERATOR Temperature 36.4 C (97.5 F) 07/06/2017 11:17 AM FASTENER SEWING MACHINE OPERATOR Respiratory Rate 16 06/29/2017 12:33 PM FASTENER SEWING MACHINE OPERATOR Oxygen Saturation 99% 07/06/2017 11:17 AM FASTENER SEWING MACHINE OPERATOR Inhaled Oxygen Concentration - - Weight 115.7 kg (255 lb) 07/06/2017 11:17 AM FASTENER SEWING MACHINE OPERATOR Height 175.3 cm (5' 9) 07/06/2017 11:17 AM FASTENER SEWING MACHINE OPERATOR Body Mass Index 37.66 07/06/2017 11:17 AM FASTENER SEWING MACHINE OPERATOR Plan of Treatment Health Maintenance Due Date [...] age to complete this topic Care Teams Refrigerator Tester Relationship Specialty Start Date End Date Kenton Ricks MD [address] [place] [address] PCP - General Family Medicine 08/20/15
--- OUTSIDE RECORDS SUMMARY | 2025-04-07 21:13 | XMS_ITS | Encounter Summary ---
Author Organization [employer] Address [address] [place] [address] Care Team Providers Care Cover Mat Machine Operator Name Role Phone Kenton Ricks MD Primary Care Provider [phone] Encounter Details Date Type Department Care Team (Late st Contact Info) Description 12/24/2001 Outpatient [facility] [address] [place] [address]. [place] [address] Anika Rowan MD NO ADDRESS ON FILE Social History Tobacco Use Types Packs/Day Years Used Date Smoking Tobacco: Never Assessed Sex and Gender Information Value Date Recorded Sex Assigned at Not on file Legal Sex Male 4:35 AM RESIDENT CARE ASSOCIATE Gender Identity Not on file Sexual Orientation Not on file documented as of this encounter Plan of Treatment Not on file documented as of this encounter Visit Diagnoses Not on filedocumented in this encounter Care Teams Cover Mat Machine Operator Relationship Specialty Start Date End Date Kenton Ricks MD [address] [place] [address] PCP - General Family Practice 11/15/18 documented as of this encounter
[2025-04-07 21:25] LABS: Hematocrit 35.7 % (42.0-52.0); Hemoglobin 11.3 g/dL (14.0-18.0); Immature Granulocyte Percent A 0.6 % (0-0.5); Lymphocytes Absolute Auto 0.72 K/mm3 (0.9-3.2); Mean Corpuscular HGB Conc 31.7 g/dl (32-36); Mean Corpuscular Hemoglobin 26.3 pg (26-34); Mean Corpuscular Volume 83.0 fl (80-100); Nucleated Red Blood Cells Absolute Auto 0.000 K/mm3 (0.0-0.012); Nucleated Red Blood Cells Perc 0.0 % (0.0-0.2); Platelet Count Result 164 k/mm3 (150-375); Red Blood Count 4.30 M/mm3 (4.6-6.20); White Blood Count 8.9 K/mm3 (4.5-10.0)
[2025-04-07] MEDS: SODIUM CHLORIDE 0.9% IV 500 ML 999 ML IV CONT (21:34)
[2025-04-07] MEDS: METOCLOPRAMIDE HCL INJ 10 MG/2 ML VIAL IV PUSH (21:35)
[2025-04-07] MEDS: ACETAMINOPHEN 325 MG TABLET 650 MG PO (21:35)
[2025-04-07 21:36] LABS: Anion Gap 8 mmol/L (4-12); Blood Urea Nitrogen 22 mg/dL (9-20); Calcium 8.7 mg/dL (8.4-10.2); Carbon Dioxide 29 mmol/L (22-30); Chloride 99 mmol/L (98-107); Estimated CRCL calculation 98 ml/min; Estimated Glomerular Filt Rate > 60; Glucose 278 mg/dL (65-110); Potassium 3.7 mmol/L (3.4-5.0); Sodium 136 mmol/L (137-145)
[2025-04-07] MEDS: HEPARIN SODIUM LOCK FLUSH 500 UNITS/5 ML SYRINGE (23:33)
== END 2025-04-07 23:41 | disposition home or self-care (01) ==
PROVIDERS: Emergency Provider Physician Assistant; PCP Family Medicine
DX: N45.1 Epididymitis (principal); I48.0 Paroxysmal atrial fibrillation; I50.30 Unspecified diastolic (congestive) heart failure; E66.01 Morbid (severe) obesity due to excess calories; E11.9 Type 2 diabetes mellitus without complications; E78.2 Mixed hyperlipidemia; K21.9 Gastro-esophageal reflux disease without esophagitis; N40.1 Benign prostatic hyperplasia with lower urinary tract symptoms; N39.41 Urge incontinence; M17.9 Osteoarthritis of knee, unspecified; F32.A Depression, unspecified; Z66 Do not resuscitate; Z95.810 Presence of automatic (implantable) cardiac defibrillator; Z87.442 Personal history of urinary calculi; Z86.711 Personal history of pulmonary embolism; Z87.891 Personal history of nicotine dependence; Z87.01 Personal history of pneumonia (recurrent); Z90.79 Acquired absence of other genital organ(s); Z86.0100 Personal history of colon polyps, unspecified; Z79.82 Long term (current) use of aspirin; Z79.4 Long term (current) use of insulin; Z79.899 Other long term (current) drug therapy
CPT/HCPCS: 36415; 70450; 76870; 80048; 81001; 85025; 87086; 93976; 96361; 96374; 96375; 99284; A9270; J1200; J2765; J7040

== ENCOUNTER 2025-04-16 14:50 | Outpatient (CLI) | payer MEDICARE, MEDICAID, SELFPAY ==
--- OUTSIDE RECORDS SUMMARY | 2007-12-27 04:02 | XMS_ITS | Continuity of Care Document ---
Author Organization [facility] Address [address] [place] [address] [address] [place] [address] Phone Care Team Providers Care Investments Manager Name Role Phone Arminda Choudhary Unavailable Unavailable Procedures Procedure Date Eye Exam, New Patient Refraction Advance Directives Directive Yes / No Effective Date File Name No Information Encounters Encounter Description Practice Location Reason(s) For Visit Diagnoses Date Provider Providers Copied on Encounter [facility], [address], [place], [place], [id number], [place] tel:[phone] [facility] No Information [address] [facility] , [address], [place], [address], [place]. tel:[phone] Family History Family Member Type Diagnosis Age At Onset No Information Payers Payer name Insurance type Covered green party ID Authoriza tion(s) No Information Social History Type Description Quantity Date Captured Comments Sex Male Smoking Status No Information Chief Complaint And Reason For Visit No Information Reason For Referral Reason For Referral No Information History Of Present Illness Encounter Date Complaint History Of Prese nt Illness No Information Functional Status Date Functional Assessmen t No Information Instructions Date Instruction Additional Infor mation No Information Assessments Type Assessment Date No Information Patient Care Teams Name Effective Dates (start - stop) Status Members No Information
[2025-04-16 15:19] LABS: Hematocrit 39.0 % (42.0-52.0); Hemoglobin 12.1 g/dL (14.0-18.0); Mean Corpuscular HGB Conc 31.0 g/dl (32-36); Mean Corpuscular Hemoglobin 26.4 pg (26-34); Mean Corpuscular Volume 85.2 fl (80-100); Platelet Count Result 175 k/mm3 (150-375); Red Blood Count 4.58 M/mm3 (4.6-6.20); White Blood Count 6.4 K/mm3 (4.5-10.0)
[2025-04-16 15:39] LABS: Alanine Aminotransferase 67 U/L (6-50); Albumin Level 3.8 g/dL (3.5-5.1); Alkaline Phosphatase 487 U/L (38-126); Aspartate Amino Transferase 58 U/L (17-59); Bilirubin,Total 0.3 mg/dL (0.2-1.3); Total Protein 7.0 g/dL (6.3-8.2)
--- OUTSIDE RECORDS SUMMARY | 2025-04-16 16:56 | XMS_ITS | Clinical Summary ---
Author Organization [facility] Address [address] [place] [address] Care Team Providers Care Director Public Policy Name Role Phone Kenton Ricks MD Primary Care Provider [phone] Allergies Active Allergy Reactions Criticality Noted Date [...] file Legal Sex Male 4:35 AM ADMINISTRATIVE LAW JUDGE Gender Identity Not on file Sexual Orientation [...] BS BLUE ACCESS/TRUE BLUE PPO Care Teams Director Public Policy Relationship Specialty Start Date End Date Kenton Ricks MD [address] [place] [address] PCP - General Family Practice 11/15/18
--- OUTSIDE RECORDS SUMMARY | 2025-04-16 16:56 | XMS_ITS | Clinical Summary ---
Author Organization [facility] Address [address] [place], [place] [address] Care Team Providers Care Culinary Arts Teacher Name Role Phone Ivonne Alcantar PA-C Primary Care Provider [phone] Social History Tobacco Use Types Packs/Day Years [...] Years (1 - 1-dose 75+ series) 2030 Hepatitis A Vaccines Aged Out No long er eligible based on patient's age to complete this topic Meningococcal B Vaccine Aged Out No l onger eligible based on patient's age to complete this topic Meningococcal Vaccine Aged Out No silas cecilio eligible based on patient's age to complete this topic RSV Immunizations Under 20 Months Aged Out No longer eligible based on patient's age to complete this topic Insurance MEDICAID Care Teams Culinary Arts Teacher Relationship Specialty Start Date End Date Ivonne Alcantar PA-C [address] [place], [place] [id number] PCP - General TANGLED YARN WORKER 12/06/21
--- OUTSIDE RECORDS SUMMARY | 2025-04-16 16:58 | XMS_ITS | Encounter Summary ---
Author Organization [employer] Address [address] [place] [address] Care Team Providers Care Order Entry Administrator Name Role Phone Kenton Ricks MD Primary Care Provider [phone] Encounter Details Date Type Department Care Team (Late st Contact Info) Description 07/23/2001 Outpatient Historical Division of Neurology [address] [address] Shabbir Villavicencio MD [address] [facility] [address] [place] [address] Social History Tobacco Use Types Packs/Day Years Used Date Smoking Tobacco: Never Assessed Sex and Gender Information Value Date Recorded Sex Assigned at Not on file Legal Sex Male 4:35 AM PRESSROOM FOREMAN Gender Identity Not on file Sexual Orientation Not on file documented as of this encounter Plan of Treatment Not on file documented as of this encounter Visit Diagnoses Not on filedocumented in this encounter Care Teams Order Entry Administrator Relationship Specialty Start Date End Date Kenton Ricks MD [address] [place] [address] PCP - General Family Practice 11/15/18 documented as of this encounter
--- OUTSIDE RECORDS SUMMARY | 2025-04-16 16:58 | XMS_ITS | Clinical Summary ---
Author Organization [facility] Address [address] [place] [address] Phone Care Team Providers Care Pulp Refiner Operator Name Role Phone Kenton Ricks MD Primary Care Provider [phone] Allergies Active Allergy Reactions Criticality Noted Date [...] ACEI to ARB. He will contact his lavatory attendant to follow up regarding this. Acute on [...] Comments Blood Pressure 118/68 05/24/2022 9:24 AM BEDSPREAD FOLDER Pulse - - Temperature 35.7 C (96.3 F) 05/24/2022 9:24 AM BEDSPREAD FOLDER Respiratory Rate 18 05/24/2022 9:24 AM BEDSPREAD FOLDER Oxygen Saturation - - Inhaled Oxygen Concentration - - Weight 126 kg (278 lb) 05/24/2022 9:24 AM BEDSPREAD FOLDER Height 172.7 cm (5' 8) 05/24/2022 9:24 AM BEDSPREAD FOLDER Body Mass Index 42.27 05/24/2022 9:24 AM BEDSPREAD FOLDER Plan of Treatment Health Maintenance Due Date Last Done Comments Pneumococcal PPSV23/PCV13 65 + Years / Low and Medium Risk (1 of 2 - PCV) 2005 Influenza Vaccine (#1) 2025 , 04/01/2017, 06/14/2016 Insurance [employer] MEDICARE ADVANTAGE Care Teams Pulp Refiner Operator Relationship Specialty Start Date End Date Kenton Ricks MD [address] [place] [address] PCP - General Family Medicine 02/16/22
--- OUTSIDE RECORDS SUMMARY | 2025-04-16 16:58 | XMS_ITS | Encounter Summary ---
Author Organization [employer] Address [address] [place] [address] Care Team Providers Care Crm Marketing Manager Name Role Phone Kenton Ricks MD Primary Care Provider [phone] Encounter Details Date Type Department Care Team (Latest Contact Info) Description 05/17/2001 Outpatient [facility] [employer] [facility] [address] [place] [facility] [place] [address] Kenyon Montenegro MD [address] [address] HEADACHE (Primary Dx) Social History Tobacco Use Types Packs/Day Years Used Date Smoking Tobacco: Never Assessed Sex and Gender Information Value Date Recorded Sex Assigned at Not on file Legal Sex Male 4:35 AM ASSURANCE ENGINEER Gender Identity Not on file Sexual Orientation Not on file documented as of this encounter Plan of Treatment Not on file documented as of this encounter Visit Diagnoses Diagnosis Headache(784.0)- Primary Headache documented in this encounter Care Teams Crm Marketing Manager Relationship Specialty Start Date End Date Kenton Ricks MD [address] [place] [address] PCP - General Family Practice 11/15/18 documented as of this encounter
--- OUTSIDE RECORDS SUMMARY | 2025-04-16 16:59 | XMS_ITS | Encounter Summary ---
Author Organization [employer] Address [address] [place] [address] Care Team Providers Care Media Consultant Outside Sales Name Role Phone Kenton Ricks MD Primary Care Provider [phone] Encounter Details Date Type Department Care Team (Latest Contact Info) Description 08/02/2001 Outpatient Historical [facility] Shabbir Villavicencio MD [address] [facility] [address] [place] [address] CONVULSIONS, OTHER (CMS/HCC) (Primary Dx) Social History Tobacco Use Types Packs/Day Years Used Date Smoking Tobacco: Never Assessed Sex and Gender Information Value Date Recorded Sex Assigned at Not on file Legal Sex Male 4:35 AM BICYCLE MESSENGER Gender Identity Not on file Sexual Orientation Not on file documented as of this encounter Plan of Treatment Not on file documented as of this encounter Visit Diagnoses Diagnosis Other convulsions- Primary documented in this encounter Care Teams Media Consultant Outside Sales Relationship Specialty Start Date End Date Kenton Ricks MD [address] [place] [address] PCP - General Family Practice 11/15/18 documented as of this encounter
--- OUTSIDE RECORDS SUMMARY | 2025-04-16 16:59 | XMS_ITS | Clinical Summary ---
Author Organization [facility] [place] Address [address] [place] [address] Care Team Providers Care Tools Programmer Name Role Phone Kenton Ricks MD Primary Care Provider [phone] Source Comments [facility] [place],non-owned Affiliates and Associated Physician Practices is amultiple site organization consisting of ambulatory clinics and hospital sitesin [place], [place], [place]. This disclosure is being madepursuant to the Care Everywhere program and may not contain all information available regarding this patient. Last updated 18.[facility] [place] Medications * Be aware that medications may [...] on file Legal Sex Male 6:18 AM AUTOMOTIVE SPECIALTY TECHNICIAN Gender Identity Not on file Sexual Orientation Not on file Last Filed Vital Signs Vital Sign Reading Time Taken Comments Blood Pressure 126/67 07/06/2017 11:17 AM AUTOMOTIVE SPECIALTY TECHNICIAN Pulse 60 07/06/2017 11:17 AM AUTOMOTIVE SPECIALTY TECHNICIAN Temperature 36.4 C (97.5 F) 07/06/2017 11:17 AM AUTOMOTIVE SPECIALTY TECHNICIAN Respiratory Rate 16 06/29/2017 12:33 PM AUTOMOTIVE SPECIALTY TECHNICIAN Oxygen Saturation 99% 07/06/2017 11:17 AM AUTOMOTIVE SPECIALTY TECHNICIAN Inhaled Oxygen Concentration - - Weight 115.7 kg (255 lb) 07/06/2017 11:17 AM AUTOMOTIVE SPECIALTY TECHNICIAN Height 175.3 cm (5' 9) 07/06/2017 11:17 AM AUTOMOTIVE SPECIALTY TECHNICIAN Body Mass Index 37.66 07/06/2017 11:17 AM AUTOMOTIVE SPECIALTY TECHNICIAN Plan of Treatment Health Maintenance Due [...] age to complete this topic Care Teams Tools Programmer Relationship Specialty Start Date End Date Kenton Ricks MD [address] [place] [address] PCP - General Family Medicine 08/20/15
--- OUTSIDE RECORDS SUMMARY | 2025-04-16 16:59 | XMS_ITS | Encounter Summary ---
Author Organization [employer] Address [address] [place] [address] Care Team Providers Care Blast Furnace Operator Name Role Phone Kenton Ricks MD Primary Care Provider [phone] Encounter Details Date Type Department Care Team (Late st Contact Info) Description 12/24/2001 Outpatient [facility] [address] [place] [address]. 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 [id number] PCP - General Family Practice 11/15/18 documented as of this encounter
--- OUTSIDE RECORDS SUMMARY | 2025-04-16 16:59 | XMS_ITS | Encounter Summary ---
Author Organization [employer] Address [address] [place] [address] Care Team Providers Care Administrative Intern Name Role Phone Kenton Ricks MD Primary Care Provider [phone] Encounter Details Date Type Department Care Team (Late st Contact Info) Description 09/30/2001 Outpatient [facility] [address] [place] [address]. 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 [id number] PCP - General Family Practice 11/15/18 documented as of this encounter
--- OUTSIDE RECORDS SUMMARY | 2025-04-16 16:59 | XMS_ITS | Encounter Summary ---
Author Organization [employer] Address [address] [place] [address] Care Team Providers Care Cna Hha Name Role Phone Kenton Ricks MD Primary Care Provider [phone] Encounter Details Date Type Department Care Team (Late st Contact Info) Description 10/06/[address] [facility] [address] [place] [address]. [place] [address] Anika Rowan MD NO ADDRESS ON FILE Social History Tobacco Use Types Packs/Day Years Used Date Smoking Tobacco: Never Assessed Sex and Gender Information Value Date Recorded Sex Assigned at Not on file Legal Sex Male 4:35 AM LIVE OUT NANNY Gender Identity Not on file Sexual Orientation Not on file documented as of this encounter Plan of Treatment Not on file documented as of this encounter Visit Diagnoses Not on filedocumented in this encounter Care Teams Cna Hha Relationship Specialty Start Date End Date Kenton Ricks MD [address] [place] [phone] PCP - General Family Practice 11/15/18 documented as of this encounter
[2025-04-16 17:52] LABS: Immunoglobulin G 816 mg/dL (700-1600)
[2025-04-16 19:14] LABS: Iron 67 ug/dL (49-181)
[2025-04-16 20:01] LABS: Ferritin 44.30 ng/mL (11.1-264)
[2025-04-16 20:04] LABS: Percent Iron Saturation 23 % (20-50)
[2025-04-16 22:26] LABS: Hepatitis B Surface Antigen Negative (Negative)
[2025-04-16 22:31] LABS: HAV RESULT Negative (Negative); Hepatitis B Core IgM Result Negative (Negative)
[2025-04-17 09:09] LABS: GGT 682 IU/L (0-65)
[2025-04-20 15:09] LABS: ANA by IFA Rfx Titer/Pattern Positive (.); ANA by IFA Rfx YES YES
== END 2025-04-16 14:51 | disposition home or self-care (01) ==
PROVIDERS: PCP Family Medicine; Visit Provider Nurse Practitioner
DX: R79.89 Other specified abnormal findings of blood chemistry (principal); R19.7 Diarrhea, unspecified; K86.81 Exocrine pancreatic insufficiency; T45.1X5A Adverse effect of antineoplastic and immunosuppressive drugs, initial encounter; D64.81 Anemia due to antineoplastic chemotherapy; R74.8 Abnormal levels of other serum enzymes; R29.6 Repeated falls
CPT/HCPCS: 36415; 80074; 80076; 82103; 82306; 82390; 82728; 82784; 82977; 83540; 83550; 85027; 86015; 86038; 86364; 86376; 86381

== ENCOUNTER 2025-04-17 09:56 | Outpatient (CLI) | payer MEDICARE, MEDICAID, SELFPAY ==
--- OUTSIDE RECORDS SUMMARY | 2025-04-17 10:31 | XMS_ITS | Encounter Summary ---
Author Organization [facility] Address [address] [place] [address] Phone Care Team Providers Care Wound Care Coordinator Name Role Phone Kenton Ricks MD Primary Care Provider + [phone] Pebbles Nelson MD Unavailable [phone] Aylin Russ MD Unavailable [phone] Maricruz Ramirez NP Unavailable [phone] Joanne Lopez RN Unavailable Padmini Leatha Carter Unavailable Unavailable Ben Chahal MD PhD Unavailable [phone] Chace Oliva MD Unavailable [phone] Giovanna Alexis MD Unavailable Taisha Suarez RN Unavailable Unavaila Sandra Aguirre MD Unavailable [phone] Abby Higgins MD PhD Unavailable + Adrian Martinez MD Unavailable [phone] Vera Pérez Unavailable [phone] Jim Frausto MD Unavailable [phone] Анна Robert RN Unavailable [phone] Encounter Details Date Type Department Care Team [...] on file Legal Sex Male 12:58 AM INFORMATION SYSTEMS PROJECT MANAGER Gender Identity Male 11/11/2018 10:31 AM CDT Sexual Orientation Straight 06/09/2019 5: 34 PM INFORMATION SYSTEMS PROJECT MANAGER documented as of this encounter Plan of Treatment Upcoming Encounters Date Type Department Care Team (Late st Contact Info) Description 04/20/2025 Orders Only [facility] Medicine Oncology [address] [facility] [address] [place] [address] Tory Nye Pancreatic adenocarcinoma (HCC) (Primary Dx) documented as of this encounter Procedures Procedure [...] COVID: Suspected 06/07/2023 06/07/2023 06/07/2023 12:46 PM INFORMATION SYSTEMS PROJECT MANAGER COVID19 06/07/2023 06/07/2023 06/22/2023 3:06 AM INFORMATION SYSTEMS PROJECT MANAGER COVID: Recovered Comment:Added based on recent COVID infection. 06/22/2023 06/22/2023 09/20/2023 3:05 AM C DT COVID: Suspected 07/24/2023 07/24/2023 07/24/2023 3:53 PM INFORMATION SYSTEMS PROJECT MANAGER Diarrhea 07/30/2023 07/30/2023 08/13/2023 3:05 AM INFORMATION SYSTEMS PROJECT MANAGER COVID: Suspected 08/30/2023 08/30/2023 08/30/2023 4:52 PM INFORMATION SYSTEMS PROJECT MANAGER COVID: Suspected 10/12/2023 10/12/2023 10/12/2023 7:57 PM CDT Rhino/Enterovirus 10/12/2023 10/12/2023 10/26/2023 3:05 AM CDT COVID: Suspected 07/10/2024 07/10/2024 07/10/2024 4:53 PM INFORMATION SYSTEMS PROJECT MANAGER COVID: Suspected Comment:07/16/2024 IP Review: no outstanding test, last RPP negative. Mary Tiwari RN 07/16/2024 07/16/2024 10:51 AM INFORMATION SYSTEMS PROJECT MANAGER COVID19 Comment:07/16/2024 IP Review: added by RN, RPP negative. Mary Tiwari RN 07/16/2024 07/16/2024 07/16/2024 10:51 AM INFORMATION SYSTEMS PROJECT MANAGER MRSA Comment:nasalMRSA Isolation [facility] 09/03/24 07/16/2024 08/15/2024 09/03/2024 6:[address] C. difficile suspected 07/19/2024 07/19/202407/19 2:34 PM INFORMATION SYSTEMS PROJECT MANAGER COVID: Suspected 07/23/2024 07/23/2024 07/23/2024 11:28 PM INFORMATION SYSTEMS PROJECT MANAGER C. difficile suspected 07/23/2024 07/24/202407/24 10:31 AM INFORMATION SYSTEMS PROJECT MANAGER Norovirus suspected 07/23/2024 07/24/2024 07/24/19 9:37 AM INFORMATION SYSTEMS PROJECT MANAGER VRE Comment:Contact Precautions (gown and gloves) - not eligible for IP review until 6 months after positive culture - Jerod QURESHI, CONY 10/01/24 07/24/2024 09/20/2024 03/19/2025 7:26 PM C DT COVID: Suspected 08/09/2024 08/09/2024 08/09/2024 9:40 AM INFORMATION SYSTEMS PROJECT MANAGER Influenza, adult Comment:08/26/2024 IP Review: pt afebrile but on antipyretics. Needs 24 hours off antipyretics and symptoms significantly improved/resolved in order for isolation to be discontinued. Mary Tiwari RN 08/15/2024 08/15/2024 08/29/2024 3:06 AM INFORMATION SYSTEMS PROJECT MANAGER Coronavirus, droplet 08/15/2024 08/15/2024 025 3:06 AM INFORMATION SYSTEMS PROJECT MANAGER C. difficile suspected 09/19/2024 09/19/202409/20 3:05 AM CDT C. difficile suspected 09/20/2024 09/20/202409/20 10:39 PM CDT Ring Surveillance Comment:09/21/2024- 0 C. [employer] ring surveillance. Becki Peres VIM [...] documented as of this encounter Care Teams Wound Care Coordinator Relationship Specialty Start Date End Date Kenton Ricks MD PCP - General 08/14/16 Pebbles Nelson MD Referring Physician Cardiology 02/07/19 Aylin Russ MD [address] [facility] [address] [place] [address] Referring Physician Pulmonary Disease 02/07/19 Maricruz Ramirez NP [address] [facility] [address] [place] [address] Nurse Practitioner Cardiovascular Disease 09/25/21 Joanne Lopez, CONY Registered Nurse Pulmonary Disease 08/24/22 Leatha Cristina RMA Surgical Prehabilitation and Readiness (SPAR) Coordinator 09/01/22 01/02/23 Ben Chahal MD PhD 10 [facility] [address] [place] [address] Medical Oncologist/Business Intern Medical Oncology 10/05/22 Chace Oliva MD [address] [address] Consulting Physician Infectious Diseases 12/22/2204/01 Giovanna Alexis MD [address] [place] [address] Radiation Oncologist Radiation Oncology 03/09/23 Taisha Suarez, executive wellness programs director Prehabilitation and Readiness (SPAR) Coordinator General Surgery 03/20/23 04/10/23 Sandra Ma MD [address] DIV IM MEDICAL ONCOLOGY, [address] 7A, 7B, [address] [place] [address] Consulting Physician Medical Oncology 04/25/23 05/09/23 Abby Higgins MD PhD [address] [facility] [address] DIV IM MEDICAL ONCOLOGY, [address] 7A, 7B, [address]C [place] [address] Medical Oncologist/Business Intern Medical Oncology 05/10/23 Adrian Martinez MD [address] [facility] [address] DIV SURG TRANSPLANT, [address] [place] [address] Surgical Oncologist Surgical Oncology 05/28/23 Vera Pérez PA [address] [place] [id number] [place] [address] Physician Online Affiliate Marketing Manager Colon and Rectal Surgery 09/13/23 Jim Frausto MD [address] [facility] [phone] [place] [address] Surgeon Colon and Rectal Surgery 11/21/23 Анна Robert, RN [address] [facility] [address] [place] [address] SHOP Outpatient Automobile Mechanic Helper 09/29/24 10/01/24 documented as of this encounter
--- OUTSIDE RECORDS SUMMARY | 2025-04-17 10:31 | XMS_ITS | Encounter Summary ---
Author Organization [facility] Address [address] [place] [address] Phone Care Team Providers Care Licensed Clinician Name Role Phone Kenton Ricks MD Primary Care Provider + [phone] Pebbles Nelson MD Unavailable [phone] Aylin Russ MD Unavailable [phone] Maricruz Ramirez NP Unavailable [phone] Joanne Lopez RN Unavailable Padmini Leatha Carter Unavailable Unavailable Ben Chahal MD PhD Unavailable [phone] Chace Oliva MD Unavailable [phone] Giovanna Alexis MD Unavailable Taisha Suarez RN Unavailable Unavaila Sandra Aguirre MD Unavailable [phone] Abby Higgins MD PhD Unavailable + Adrian Martinez MD Unavailable Vera Pérez Unavailable [phone] Jim Frausto MD Unavailable [phone] Анна Robert RN Unavailable [phone] Encounter Details Date Type Department Care Team (Latest Contact Info) Description 11/15/2017 Orders Only [facility] Scanning, Provider Social History Tobacco Use Types Packs/Day Years Used Date Smoking Tobacco: Former Sex and Gender Information Value Date Recorded Sex Assigned at Not on file Legal Sex Male 12:58 AM PERFUMER Gender Identity Male 11/11/2018 10:31 AM CDT Sexual Orientation Straight 06/09/2019 5: 34 PM PERFUMER documented as of this encounter Plan of Treatment Upcoming Encounters Date Type Department Care Team (Late st Contact Info) Description 04/20/2025 Orders Only [facility] Medicine Oncology 10 [facility] [address] [place] [id number] Tory Nye Pancreatic adenocarcinoma (HCC) (Primary Dx) documented as of this encounter Procedures Procedure Name Priority Date/Time Associated Diagnosis Comments CARDIOLOGY DOCUMENT SCAN 11/15/2017 documented in this encounter Results * SCAN - CARDIOLOGY (11/15/2017) Anatomical Region Laterality Modality Other Provider Scanning CV CARDIAC SERVICES PROCEDURES Final [...] COVID: Suspected 06/07/2023 06/07/2023 06/07/2023 12:46 PM PERFUMER COVID19 06/07/2023 06/07/2023 06/22/2023 3:06 AM PERFUMER COVID: Recovered Comment:Added based on recent COVID infection. 06/22/2023 06/22/2023 09/20/2023 3:05 AM C DT COVID: Suspected 07/24/2023 07/24/2023 07/24/2023 3:53 PM PERFUMER Diarrhea 07/30/2023 07/30/2023 08/13/2023 3:05 AM PERFUMER COVID: Suspected 08/30/2023 08/30/2023 08/30/2023 4:52 PM PERFUMER COVID: Suspected 10/12/2023 10/12/2023 10/12/2023 7:57 PM CDT Rhino/Enterovirus 10/12/2023 10/12/2023 10/26/2023 3:05 AM CDT COVID: Suspected 07/10/2024 07/10/2024 07/10/2024 4:53 PM PERFUMER COVID: Suspected Comment:07/16/2024 IP Review: no outstanding test, last RPP negative. Mary Tiwari RN 07/16/2024 07/16/2024 10:51 AM PERFUMER COVID19 Comment:07/16/2024 IP Review: added by RN, RPP negative. Mary Tiwari RN 07/16/2024 07/16/2024 07/16/2024 10:51 AM PERFUMER MRSA Comment:nasalMRSA Isolation [facility] 09/03/24 07/16/2024 08/15/2024 09/03/2024 6:[address] C. difficile suspected 07/19/2024 07/19/202407/19 2:34 PM PERFUMER COVID: Suspected 07/23/2024 07/23/2024 07/23/2024 11:28 PM PERFUMER C. difficile suspected 07/23/2024 07/24/202407/24 10:31 AM PERFUMER Norovirus suspected 07/23/2024 07/24/2024 07/24/19 9:37 AM PERFUMER VRE Comment:Contact Precautions (gown and gloves) - not eligible for IP review until 6 months after positive culture - Jerod QURESHI, CONY 10/01/24 07/24/2024 09/20/2024 03/19/2025 7:26 PM C DT COVID: Suspected 08/09/2024 08/09/2024 08/09/2024 9:40 AM PERFUMER Influenza, adult Comment:08/26/2024 IP Review: pt afebrile but on antipyretics. Needs 24 hours off antipyretics and symptoms significantly improved/resolved in order for isolation to be discontinued. Mary Tiwari RN 08/15/2024 08/15/2024 08/29/2024 3:06 AM PERFUMER Coronavirus, droplet 08/15/2024 08/15/202408/29/ 025 3:06 AM PERFUMER C. difficile suspected 09/19/2024 09/19/202409/20 3:05 AM [...] documented as of this encounter Care Teams Licensed Clinician Relationship Specialty Start Date End Date Kenton Ricks MD PCP - General 08/14/16 Pebbles Nelson MD Referring Physician Cardiology 02/07/19 Aylin Russ MD [address] [facility] [address] [place] [address] Referring Physician Pulmonary Disease 02/07/19 Maricruz Ramirez, PRINCIPAL SOFTWARE ARCHITECT [address] [facility] [address] [place] [address] Nurse Practitioner Cardiovascular Disease 09/25/21 Joanne Lopez, CONY Registered Nurse Pulmonary Disease 08/24/22 Leatha Cristina RMA Surgical Prehabilitation and Readiness (SPAR) Coordinator 09/01/22 01/02/23 Ben Chahal MD PhD 10 [facility] [address] [place] [address] Medical Oncologist/Manager Patient Medical Oncology 10/05/22 Chace Oliva MD [address] [facility] [address] [place] [address] Consulting Physician Infectious Diseases 12/22/2204/01 Giovanna Alexis MD [address] [facility] [address] [place] [address] Radiation Oncologist Radiation Oncology 03/09/23 Taisha Suarez, aerodynamics engineer Prehabilitation and Readiness (SPAR) Coordinator General Surgery 03/20/23 04/10/23 Sandra Ma MD [address] [facility] DIV MEDICAL ONCOLOGY, [address]BDI 7A, 7B, [address] [place] [address] Consulting Physician Medical Oncology 04/25/23 05/09/23 Abby Higgins MD PhD [address] [facility] [address] DIV IM MEDICAL ONCOLOGY, [address]BDI 7A, 7B, [address] [place] [address] Medical Oncologist/Manager Patient Medical Oncology 05/10/23 Adrian Martinez MD [address] DIV SURG TRANSPLANT, [address] [place] [address] Surgical Oncologist Surgical Oncology 05/28/23 Vera Pérez PA [address] [place] [id number] [place] [address] Physician Transportation Refrigeration Technician Colon and Rectal Surgery 09/13/23 Jim Frausto MD [address] [facility] [phone] [place] [address] Surgeon Colon and Rectal Surgery 11/21/23 Анна Robert, RN [address] [facility] [address] [place] [address] SHOP Outpatient Graphics Editor 09/29/24 10/01/24 documented as of this encounter
--- OUTSIDE RECORDS SUMMARY | 2025-04-17 10:31 | XMS_ITS | Encounter Summary ---
Author Organization [facility] Address [address] [place] [address] Phone Care Team Providers Care Speedboat Driver Name Role Phone Kenton Ricks MD Primary Care Provider + [phone] Pebbles Nelson MD Unavailable [phone] Aylin Russ MD Unavailable [phone] Maricruz Ramirez NP Unavailable [phone] Joanne Lopez RN Unavailable Padmini Leatha Carter Unavailable Unavailable Ben Chahal MD PhD Unavailable [phone] Chace Oliva MD Unavailable [phone] Giovanna Alexis MD Unavailable Taisha Suarez RN Unavailable Unavaila Sandra Aguirre MD Unavailable [phone] Abby Higgins MD PhD Unavailable + Adrian Martinez MD Unavailable [phone] Vera Pérez Unavailable [phone] Jim Frausto MD Unavailable [phone] Анна Robert RN Unavailable [phone] Encounter Details Date Type Department Care Team (Latest Contact Info) Description 12/14/2016 Orders Only [facility] Scanning, Provider Social History Tobacco Use Types Packs/Day Years Used Date Smoking Tobacco: Never Assessed Sex and Gender Information Value Date Recorded Sex Assigned at Not on file Legal Sex Male 12:58 AM BLANKER OPERATOR Gender Identity Male 11/11/2018 10:31 AM CDT Sexual Orientation Straight 06/09/2019 5: 34 PM BLANKER OPERATOR documented as of this encounter Plan of Treatment Upcoming Encounters Date Type Department Care Team (Late st Contact Info) Description 04/20/2025 Orders Only [facility] Medicine Oncology 10 [facility] [address] [place] [phone] Tory Nye Pancreatic adenocarcinoma (HCC) (Primary Dx) documented as of this encounter Procedures Procedure Name Priority Date/Time Associated Diagnosis Comments PULMONARY FUNCTION TEST (PFT) 12/14/2016 12:51 PM CDT documented in this encounter Results * PULMONARY FUNCTION TEST (PFT) (12/14/2016 12:51 PM CDT) Anatomical Region Laterality Modality PFT Provider Scanning PFT ORDERABLES Final Result documented [...] COVID: Suspected 06/07/2023 06/07/2023 06/07/2023 12:46 PM BLANKER OPERATOR COVID19 06/07/2023 06/07/2023 06/22/2023 3:06 AM BLANKER OPERATOR COVID: Recovered Comment:Added based on recent COVID infection. 06/22/2023 06/22/2023 09/20/2023 3:05 AM C DT COVID: Suspected 07/24/2023 07/24/2023 07/24/2023 3:53 PM BLANKER OPERATOR Diarrhea 07/30/2023 07/30/2023 08/13/2023 3:05 AM BLANKER OPERATOR COVID: Suspected 08/30/2023 08/30/2023 08/30/2023 4:52 PM BLANKER OPERATOR COVID: Suspected 10/12/2023 10/12/202310/12/2023 7:57 PM CDT Rhino/Enterovirus 10/12/2023 10/12/2023 10/26/2023 3:05 AM CDT COVID: Suspected 07/10/2024 07/10/2024 07/10/2024 4:53 PM BLANKER OPERATOR COVID: Suspected Comment:07/16/2024 IP Review: no outstanding test, last RPP negative. Mary Tiwari RN 07/16/2024 07/16/2024 10:51 AM BLANKER OPERATOR COVID19 Comment:07/16/2024 IP Review: added by RN, RPP negative. Mary Tiwari RN 07/16/2024 07/16/2024 07/16/2024 10:51 AM BLANKER OPERATOR MRSA Comment:nasalMRSA Isolation [facility] 09/03/24 07/16/2024 08/15/2024 09/03/2024 6:[address] C. difficile suspected 07/19/2024 07/19/202407/19 2:34 PM BLANKER OPERATOR COVID: Suspected 07/23/2024 07/23/2024 07/23/2024 11:28 PM BLANKER OPERATOR C. difficile suspected 07/23/2024 07/24/202407/24 10:31 AM BLANKER OPERATOR Norovirus suspected 07/23/2024 07/24/2024 07/24/19 9:37 AM BLANKER OPERATOR VRE Comment:Contact Precautions (gown and gloves) - not eligible for IP review until 6 months after positive culture - Jerod QURESHI, CONY 10/01/24 07/24/2024 09/20/2024 03/19/2025 7:26 PM C DT COVID: Suspected 08/09/2024 08/09/2024 08/09/2024 9:40 AM BLANKER OPERATOR Influenza, adult Comment:08/26/2024 IP Review: pt afebrile but on antipyretics. Needs 24 hours off antipyretics and symptoms significantly improved/resolved in order for isolation to be discontinued. Mary Tiwari RN 08/15/2024 08/15/2024 08/29/2024 3:06 AM BLANKER OPERATOR Coronavirus, droplet 08/15/2024 08/15/2024 025 3:06 AM BLANKER OPERATOR C. difficile suspected 09/19/2024 09/19/202409/20 3:05 [...] documented as of this encounter Care Teams Speedboat Driver Relationship Specialty Start Date End Date Kenton Ricks MD PCP - General 08/14/16 Pebbles Nelson MD Referring Physician Cardiology 02/07/19 Aylin Russ MD [address] [place] [address] Referring Physician Pulmonary Disease 02/07/19 Maricruz Ramirez NP [address] [place] [address] Nurse Practitioner Cardiovascular Disease 09/25/21 Joanne Lopez, [place] Registered Nurse Pulmonary Disease 08/24/22 Leatha Cristina RMA Surgical Prehabilitation and Readiness (SPAR) Coordinator 09/01/22 01/02/23 Ben Chahal MD PhD 10 [facility] [address] [place] [address] Medical Oncologist/Jail Keeper Medical Oncology 10/05/22 Chace Oliva MD [address] [place] [address] Consulting Physician Infectious Diseases 12/22/2204/01 Giovanna Alexis MD [address] [place] [address] Radiation Oncologist Radiation Oncology 03/09/23 Taisha Suarez, shredder tender peat Prehabilitation and Readiness (SPAR) Coordinator General Surgery 03/20/23 04/10/23 Sandra Ma MD 49[address] [facility] DIV MEDICAL ONCOLOGY, [address] 7A, 7B, 7[address] [place] [address] Consulting Physician Medical Oncology 04/25/23 05/09/23 Abby Higgins MD PhD [address] [facility] [address] DIV IM MEDICAL ONCOLOGY, [address]A, 7B, [address] [place] [address] Medical Oncologist/Jail Keeper Medical Oncology 05/10/23 Adrian Martinez MD [address] [facility] [address] DIV SURG TRANSPLANT, [address] [place] [address] Surgical Oncologist Surgical Oncology 05/28/23 Vera Pérez PA [address] [place] [id number] [place] [address] Physician Access Database Developer Colon and Rectal Surgery 09/13/23 Jim Frausto MD [address] [facility] [phone] [place] [address] Surgeon Colon and Rectal Surgery 11/21/23 Анна Robert, RN [address] [facility] [address] [place] [address] SHOP Outpatient Credit Analysis Manager 09/29/24 10/01/24 documented as of this encounter
--- OUTSIDE RECORDS SUMMARY | 2025-04-17 10:31 | XMS_ITS | Encounter Summary ---
Author Organization [facility] Address [address] [place] [address] Phone Care Team Providers Care Windows Mobile Developer Name Role Phone Kenton Ricks MD Primary Care Provider + [phone] Pebbles Neslon MD Unavailable [phone] Aylin Russ MD Unavailable +[phone] Maricruz Ramirez NP Unavailable [phone] Joanne Lopez RN Unavailable Padmini Leatha Carter Unavailable Unavailable Ben Chahal MD PhD Unavailable +[phone] Chace Oliva MD Unavailable +[phone] Giovanna Alexis MD Unavailable Taisha Suarez RN Unavailable Unavaila Sandra Aguirre MD Unavailable +[phone] Abby Higgins MD PhD Unavailable + Adrian Martinez MD Unavailable [phone] Vera Pérez Unavailable [phone] Jim Frausto MD Unavailable Анна Robert RN Unavailable [phone] Encounter Details Date Type Department Care Team (Late st Contact Info) Description 09/23/2018 Telephone [facility] Cardiology [address] [facility] 8th [place] [address] [place] [address] Pebbles Nelson MD [address] [place] [address] Social History Tobacco Use Types Packs/Day Years Used Date Smoking Tobacco: Former Smokeless Tobacco: Never Alcohol Use Standard Drinks/Week Comments Yes 0 (1 standard drink = 0.6 oz pur e alcohol) Occassional Sex and Gender Information Value Date Recorded Sex Assigned at Not on file Legal Sex Male 12:58 AM RECRUITING INTERNSHIP Gender Identity Male 11/11/2018 10:31 AM CDT Sexual Orientation Straight 06/09/2019 5: 34 PM RE[employer]UITING INTERNSHIP documented as of this encounter Plan of Treatment Upcoming Encounters Date Type Department Care Team (Late Contact Info) Description 04/20/2025 Orders Only [facility] Medicine Oncology [address] [facility] [address] [place] [address] Tory Nye Pancreatic adenocarcinoma (HCC) (Primary Dx) documented as of this encounter Visit Diagnoses [...] COVID: Suspected 06/07/2023 06/07/2023 06/07/2023 12:46 PM RE[employer]UITING INTERNSHIP COVID19 06/07/2023 06/07/2023 06/22/2023 3:06 AM RE[employer]UITING INTERNSHIP COVID: Recovered Comment:Added based on recent COVID infection. 06/22/2023 06/22/2023 09/20/2023 3:05 AM C DT COVID: Suspected 07/24/2023 07/24/2023 07/24/2023 3:53 PM RE[employer]UITING INTERNSHIP Diarrhea 07/30/2023 07/30/2023 08/13/2023 3:05 AM [employer]ING INTERNS[employer]IP COVID: Suspected 08/30/2023 08/30/2023 08/30/2023 4:52 PM RE[employer]UITING INTERNSHIP COVID: Suspected 10/12/2023 10/12/2023 10/12/2023 7:57 PM CDT Rhino/Enterovirus 10/12/2023 10/12/2023 10/26/2023 3:05 AM CDT COVID: Suspected 07/10/2024 07/10/2024 07/10/2024 4:53 PM [employer] INTERNS[employer]IP COVID: Suspected Comment:07/16/2024 IP Review: no outstanding test, last RPP negative. Mary Tiwari RN 07/16/2024 07/16/2024 10:51 AM [employer]ING INTERNS[employer]IP COVID19 Comment:07/16/2024 IP Review: added by RN, RPP negative. Mary Tiwari RN 07/16/2024 07/16/2024 07/16/2024 10:51 AM RE[employer]ING INTERNSHIP MRSA Comment:nasalMRSA Isolation [facility] 09/03/24 07/16/2024 08/15/2024 09/03/2024 6:[address] C. difficile suspected 07/19/2024 07/19/202407/19 2:34 PM [employer] COVID: Suspected 07/23/2024 07/23/2024 07/23/2024 11:28 PM [employer]NS[employer] C. difficile suspected 07/23/2024 07/24/202407/24 10:31 AM RE[employer]UITING INTERNS[employer]IP Norovirus suspected 07/23/2024 07/24/2024 07/24/19 9:37 AM RE[employer]UITING INTERNSHIP VRE Comment:Contact Precautions (gown and gloves) - not eligible for IP review until 6 months after positive culture - Jerod LEEN, RN 10/01/24 07/24/2024 09/20/2024 03/19/2025 7:26 PM C DT COVID: Suspected 08/09/2024 08/09/2024 08/09/2024 9:40 AM RE[employer]UITING INTERNSHIP Influenza, adult Comment:08/26/2024 IP Review: pt afebrile but on antipyretics. Needs 24 hours off antipyretics and symptoms significantly improved/resolved in order for isolation to be discontinued. Mary Tiwari RN 08/15/2024 08/15/2024 08/29/2024 3:06 AM RE[employer]UITING INTERNSHIP Coronavirus, droplet 08/15/2024 08/15/2024 025 3:06 AM RE[employer]UITING INTERNSHIP C. difficile suspected 09/19/2024 09/19/202409/20 3:05 AM [...] documented as of this encounter Care Teams Windows Mobile Developer Relationship Specialty Start Date End Date Kenton Ricks MD PCP - General 2/13/17 Pebbles Nelson MD Referring Physician Cardiology 02/07/19 Aylin Russ MD [address] [facility] [address] [place] [address] Referring Physician Pulmonary Disease 02/07/19 Maricruz Ramirez NP [address] [facility] [address] [place] [address] Nurse Practitioner Cardiovascular Disease 09/25/21 Joanne Lopez, CONY Registered Nurse Pulmonary Disease 08/24/22 Leatha Cristina RMA Surgical Prehabilitation and Readiness (SPAR) Coordinator 09/01/22 01/02/23 Ben Chahal MD PhD [address] [facility] [address] [place] [address] Medical Oncologist/Research Chief Engineer Medical Oncology 10/05/22 Chace Oliva MD [address] [facility] [address] [place] [address] Consulting Physician Infectious Diseases 12/22/2204/01 Giovanna Alexis MD [address] [place] [address] Radiation Oncologist Radiation Oncology 03/09/23 Taisha Suarez, apprentice painter hand Prehabilitation and Readiness (SPAR) Coordinator General Surgery 03/20/23 04/10/23 Sandra Ma MD [address] [facility] DIV MEDICAL ONCOLOGY, [address]A, 7B, [address]C [place] [address] Consulting Physician Medical Oncology 04/25/23 05/09/23 Abby Higgins MD PhD [address] DIV IM MEDICAL ONCOLOGY, [address]A, 7B, [address]C [place] [address] Medical Oncologist/Research Chief Engineer Medical Oncology 05/10/23 Adrian Martinez MD [address] DIV SURG TRANSPLANT, [facility] [address] [place] [address] Surgical Oncologist Surgical Oncology 05/28/23 Vera Pérez PA [address] [place] [phone] [place] [address] Physician Manager Logistic Colon and Rectal Surgery 09/13/23 Jim Frausto MD [address] [facility] [phone] [place] [address] Surgeon Colon and Rectal Surgery 11/21/23 Анна Robert, RN [address] [facility] [address] [place] [address] SHOP Outpatient Supervisor Spring Up 09/29/24 10/01/24 documented as of this encounter
--- OUTSIDE RECORDS SUMMARY | 2025-04-17 10:32 | XMS_ITS | Patient Health Record ---
Author Organization 1 OF Kristopher jaimes DPM [facility] Address [address] [place] [address] Reason For Referral No Information Plan Of Treatment No Information
--- OUTSIDE RECORDS SUMMARY | 2025-04-17 10:32 | XMS_ITS | Patient Health Record ---
Author Organization [facility] Address [address] [place] [address] Care Team Providers Care Store Stock Associate Name Role Phone Derrell Matthews Primary Care Provider [phone] Duane Llamas Unavailable Unavailable Reason For Referral No Information Plan Of Treatment No Information Insurance Providers Payer Name Payer Address Payer Phone Subscriber Number Group Number Insured Name Patient Relationship to Insured Coverage Start Date Coverage End Date [facility] [address] [place] [address] [id number] Rah Greco Self - patient is the insured
--- OUTSIDE RECORDS SUMMARY | 2025-04-17 10:32 | XMS_ITS | Clinical Summary ---
Author Organization [facility] Address [address] [place], [place] [id number] Care Team Providers Care Jumpbasting Canvas Baster Name Role Phone Ivonne Alcantar PA-C Primary Care Provider [phone] Social History Tobacco Use Types Packs/Day Years [...] complete this topic Insurance MEDICAID Care Teams Jumpbasting Canvas Baster Relationship Specialty Start Date End Date Ivonne Alcantar PA-C [address] [place], [place] [id number] PCP - General PAINTER ROUGH 12/06/21
--- OUTSIDE RECORDS SUMMARY | 2025-04-17 10:32 | XMS_ITS | Encounter Summary ---
Author Organization [facility] Address [address] [place] [address] Phone Care Team Providers Care Die Grinder Name Role Phone Kenton Ricks MD Primary Care Provider + [phone] Pebbles Nelson MD Unavailable [phone] Aylin Russ MD Unavailable [phone] Maricruz Ramirez NP Unavailable [phone] Joanne Lopez RN Unavailable Padmini Leatha Carter Unavailable Unavailable Ben Chahal MD PhD Unavailable [phone] Chace Oliva MD Unavailable [phone] Giovanna Alexis MD Unavailable Taisha Suarez RN Unavailable Unavaila Sandra Aguirre MD Unavailable [phone] Abby Higgins MD PhD Unavailable + Adrian Martinez MD Unavailable [phone] Vera Pérez Unavailable [phone] Jim Frausto MD Unavailable [phone] Анна Robert RN Unavailable [phone] Encounter Details Date Type Department Care Team [...] on file Legal Sex Male 12:58 AM PUSHER RUNNER Gender Identity Male 11/11/2018 10:31 AM CDT Sexual Orientation Straight 06/09/2019 5: 34 PM PUSHER RUNNER documented as of this encounter Plan of Treatment Upcoming Encounters Date Type Department Care Team (Late st Contact Info) Description 04/20/[address] [facility] Medicine Oncology 10 [facility] [address] [place] [address] Tory Nye Pancreatic adenocarcinoma (HCC) (Primary Dx) [...] COVID: Suspected 06/07/2023 06/07/2023 06/07/2023 12:46 PM PUSHER RUNNER COVID19 06/07/2023 06/07/2023 06/22/2023 3:06 AM PUSHER RUNNER COVID: Recovered Comment:Added based on recent COVID infection. 06/22/2023 06/22/2023 09/20/2023 3:05 AM C DT COVID: Suspected 07/24/2023 07/24/2023 07/24/2023 3:53 PM PUSHER RUNNER Diarrhea 07/30/2023 07/30/2023 08/13/2023 3:05 AM PUSHER RUNNER COVID: Suspected 08/30/2023 08/30/2023 08/30/2023 4:52 PM PUSHER RUNNER COVID: Suspected 10/12/2023 10/12/2023 10/12/2023 7:57 PM CDT Rhino/Enterovirus 10/12/2023 10/12/2023 10/26/2023 3:05 AM CDT COVID: Suspected 07/10/2024 07/10/2024 07/10/2024 4:53 PM PUSHER RUNNER COVID: Suspected Comment:07/16/2024 IP Review: no outstanding test, last RPP negative. Mary Tiwari RN 07/16/2024 07/16/2024 10:51 AM PUSHER RUNNER COVID19 Comment:07/16/2024 IP Review: added by RN, RPP negative. Mary Tiwari RN 07/16/2024 07/16/2024 07/16/2024 10:51 AM PUSHER RUNNER MRSA Comment:nasalMRSA Isolation Long-Term 09/03/24 07/16/2024 08/15/2024 09/03/2024 6:[address] C. difficile suspected 07/19/2024 07/19/202407/19 2:34 PM PUSHER RUNNER COVID: Suspected 07/23/2024 07/23/2024 07/23/2024 11:28 PM PUSHER RUNNER C. difficile suspected 07/23/2024 07/24/202407/24 10:31 AM PUSHER RUNNER Norovirus suspected 07/23/2024 07/24/2024 07/24/19 9:37 AM PUSHER RUNNER VRE Comment:Contact Precautions (gown and gloves) - not eligible for IP review until 6 months after positive culture - Jerod QURESHI, RN 10/01/24 07/24/2024 09/20/2024 03/19/2025 7:26 PM C DT COVID: Suspected 08/09/2024 08/09/2024 08/09/2024 9:40 AM PUSHER RUNNER Influenza, adult Comment:08/26/2024 IP Review: pt afebrile but on antipyretics. Needs 24 hours off antipyretics and symptoms significantly improved/resolved in order for isolation to be discontinued. Mary Tiwari, CONY 08/15/2024 08/15/2024 08/29/2024 3:06 AM PUSHER RUNNER Coronavirus, droplet 08/15/2024 08/15/2024 025 3:06 AM PUSHER RUNNER C. difficile suspected 09/19/2024 09/19/202409/20 3:05 AM [...] documented as of this encounter Care Teams Die Grinder Relationship Specialty Start Date End Date Kenton Ricks MD PCP - General 08/14/16 Pebbles Nelson MD Referring Physician Cardiology 02/07/19 Aylin Russ MD [address] [facility] [address] [place] [address] Referring Physician Pulmonary Disease 02/07/19 Maricruz Ramirez NP [address] [facility] [address] [place] [address] Nurse Practitioner Cardiovascular Disease 09/25/21 Joanne Lopez, CON[place] Registered Nurse Pulmonary Disease 08/24/22 Leatha Cristina RMA Surgical Prehabilitation and Readiness (SPAR) Coordinator 09/01/22 01/02/23 Ben Chahal MD PhD 10 [facility] [address] [place] [address] Medical Oncologist/Laborer Vegetable Farm Medical Oncology 10/05/22 Chace Oliva MD [address] [facility] [address] [place] [address] Consulting Physician Infectious Diseases 12/22/2204/01 Giovanna Alexis MD [address] [facility] [address] [place] [address] Radiation Oncologist Radiation Oncology 03/09/23 Taisha Suarez, poultry inspector Prehabilitation and Readiness (SPAR) Coordinator General Surgery 03/20/23 04/10/23 Sandra Ma MD [address] DIV IM MEDICAL ONCOLOGY, [address]A, 7B, [address] [place] [address] Consulting Physician Medical Oncology 04/25/23 05/09/23 Abby Higgins MD PhD [address] DIV IM MEDICAL ONCOLOGY, [address]A, 7B, [address] [place] [address] Medical Oncologist/Laborer Vegetable Farm Medical Oncology 05/10/23 Adrian Martinez MD [address] DIV SURG TRANSPLANT, [facility] [address] [place] [address] Surgical Oncologist Surgical Oncology 05/28/23 Vera Pérez PA [address] [place] [id number] [place] [address] Physician Registered Dental Assistant Rda Colon and Rectal Surgery 09/13/23 Jim Frausto MD [address] [facility] [phone] [place] [address] Surgeon Colon and Rectal Surgery 11/21/23 Анна Robert, RN [address] [facility] [address] [place] [address] SHOP Outpatient Ground Operations Crew Member 09/29/24 10/01/24 documented as of this encounter
--- OUTSIDE RECORDS SUMMARY | 2025-04-17 10:32 | XMS_ITS | Encounter Summary ---
Author Organization [facility] Address [address] [place] [address] Phone Care Team Providers Care Garment Sewer Hand Name Role Phone Kenton Ricks MD Primary Care Provider + [phone] Kenton Ricks MD Primary Care Provider + [phone] Pebbles Nelson MD Unavailable [phone] Aylin Russ MD Unavailable [phone] Maricruz Ramirez NP Unavailable [phone] Joanne Lopez RN Unavailable Padmini Leatha Carter Unavailable Unavailable Ben Chahal MD PhD Unavailable [phone] Chace Oliva MD Unavailable [phone] Giovanna Alexis MD Unavailable Taisha Suarez RN Unavailable Unavaila Sandra Aguirre MD Unavailable [phone] Abby Higgins MD PhD Unavailable + Adrian Martinez MD Unavailable Vera Pérez Unavailable [phone] Jim Frausto MD Unavailable Анна Robert RN Unavailable [phone] Encounter Details Date Type Department Care Team (Late st Contact Info) Description 05/19/2016 Orders Only [facility] Provider, MD Max [address] [place] [id number] Social History Tobacco Use Types Packs/Day Years Used Date Smoking Tobacco: Never Assessed Sex and Gender Information Value Date Recorded Sex Assigned at Not on file Legal Sex Male 12:58 AM OFFICE ADMINISTRATION Gender Identity Male 11/11/2018 10:31 AM CDT Sexual Orientation Straight 06/09/2019 5: 34 PM OFFICE ADMINISTRATION documented as of this encounter Plan of Treatment Upcoming Encounters Date Type Department Care Team (Late st Contact Info) Description 04/20/2025 Orders Only [facility] Medicine Oncology 10 [facility] [address] [place] [address] Tory Nye Pancreatic adenocarcinoma (HCC) (Primary Dx) [...] COVID: Suspected 06/07/2023 06/07/2023 06/07/2023 12:46 PM OFFICE ADMINISTRATION COVID19 06/07/2023 06/07/2023 06/22/2023 3:06 AM OFFICE ADMINISTRATION COVID: Recovered Comment:Added based on recent COVID infection. 06/22/2023 06/22/2023 09/20/2023 3:05 AM C DT COVID: Suspected 07/24/2023 07/24/2023 07/24/2023 3:53 PM OFFICE ADMINISTRATION Diarrhea 07/30/2023 07/30/2023 08/13/2023 3:05 AM OFFICE ADMINISTRATION COVID: Suspected 08/30/2023 08/30/2023 08/30/2023 4:52 PM OFFICE ADMINISTRATION COVID: Suspected 10/12/2023 10/12/2023 10/12/2023 7:57 PM CDT Rhino/Enterovirus 10/12/2023 10/12/2023 10/26/2023 3:05 AM CDT COVID: Suspected 07/10/2024 07/10/2024 07/10/2024 4:53 PM OFFICE ADMINISTRATION COVID: Suspected Comment:07/16/2024 IP Review: no outstanding test, last RPP negative. Mary Tiwari RN 07/16/2024 07/16/2024 10:51 AM OFFICE ADMINISTRATION COVID19 Comment:07/16/2024 IP Review: added by RN, RPP negative. Mary Tiwari RN 07/16/2024 07/16/2024 07/16/2024 10:51 AM OFFICE ADMINISTRATION MRSA Comment:nasalMRSA Isolation Residential 09/03/24 07/16/2024 08/15/2024 09/03/2024 6:[address] C. difficile suspected 07/19/2024 07/19/202407/19 2:34 PM OFFICE ADMINISTRATION COVID: Suspected 07/23/2024 07/23/2024 07/23/2024 11:28 PM OFFICE ADMINISTRATION C. difficile suspected 07/23/2024 07/24/202407/24 10:31 AM OFFICE ADMINISTRATION Norovirus suspected 07/23/2024 07/24/2024 07/24/19 9:37 AM OFFICE ADMINISTRATION VRE Comment:Contact Precautions (gown and gloves) - not eligible for IP review until 6 months after positive culture - Jerod QURESHI, RN 10/01/24 07/24/2024 09/20/2024 03/19/2025 7:26 PM C DT COVID: Suspected 08/09/2024 08/09/2024 08/09/2024 9:40 AM OFFICE ADMINISTRATION Influenza, adult Comment:08/26/2024 IP Review: pt afebrile but on antipyretics. Needs 24 hours off antipyretics and symptoms significantly improved/resolved in order for isolation to be discontinued. Mary Tiwari RN 08/15/2024 08/15/2024 08/29/2024 3:06 AM OFFICE ADMINISTRATION Coronavirus, droplet 08/15/2024 08/15/2024 025 3:06 AM OFFICE ADMINISTRATION C. difficile suspected 09/19/2024 09/19/202409/20 3:05 AM [...] PM CDT Norovirus suspected 03/01/2025 03/01/2025 03/01/20 25 3:43 PM CDT COVID: Suspected 03/31/2025 03/31/2025 03/31/2025 3:56 PM CDT documented as of this encounter Care Teams Garment Sewer Hand Relationship Specialty Start Date End Date Kenton Ricks MD PCP - General 08/14/16 Kenton Ricks MD PCP - General 09/17/08 08/13/16 Pebbles Nelson MD Referring Physician Cardiology 02/07/19 Aylin Russ MD [address] [facility] [address] [place] [address] Referring Physician Pulmonary Disease 02/07/19 Maricruz Ramirez NP [address] [facility] [address] [place] [address] Nurse Practitioner Cardiovascular Disease 09/25/21 Joanne Lopez, [place] Registered Nurse Pulmonary Disease 08/24/22 Leatha Cristina RMA Surgical Prehabilitation and Readiness (SPAR) Coordinator 09/01/22 01/02/23 Ben Chahal MD PhD [address] [place] [address] Medical Oncologist/Chimney Mechanic Medical Oncology 10/05/22 Chace Oliva MD [address] [facility] [address] [place] [address] Consulting Physician Infectious Diseases 12/22/2204/01 Giovanna Alexis MD [address] [facility] [address] [place] [address] Radiation Oncologist Radiation Oncology 03/09/23 Taisha Suarez RN Surgical Prehabilitation and Readiness (SPAR) Coordinator General Surgery 03/20/23 04/10/23 Sandra Ma MD [address] DIV IM MEDICAL ONCOLOGY, [address]A, 7B, [address]C [place] [address] Consulting Physician Medical Oncology 04/25/23 05/09/23 Abby Higgins MD PhD [address] DIV IM MEDICAL ONCOLOGY, [address]A, 7B, [address] [place] [address] Medical Oncologist/Chimney Mechanic Medical Oncology 05/10/23 Adrian Martinez MD [address] DIV SURG TRANSPLANT, [facility] [address] [place] [address] Surgical Oncologist Surgical Oncology 05/28/23 Vera Pérez PA [address] [place] [id number] [place] [address] Physician Supervisor Vegetable Farming Colon and Rectal Surgery 09/13/23 Jim Frausto MD [address] [facility] [phone] [place] [address] Surgeon Colon and Rectal Surgery 11/21/23 Анна Robert RN 4590 [facility] 5[address] [place] [address] SHOP Outpatient Union Contract Representative 09/29/24 10/01/24 documented as of this encounter
--- OUTSIDE RECORDS SUMMARY | 2025-04-17 10:32 | XMS_ITS | Encounter Summary ---
Author Organization [facility] Address [address] [place] [address] Care Team Providers Care Access Rep Name Role Phone Kenton Ricks MD Primary Care Provider + [phone] Pebbles Nelson MD Unavailable [phone] Aylin Russ MD Unavailable [phone] Maricruz Ramirez NP Unavailable [phone] Joanne Lopez RN Unavailable Padmini Leatha Carter Unavailable Unavailable Ben Chahal MD PhD Unavailable [phone] Chace Oliva MD Unavailable +[phone] Giovanna Alexis MD Unavailable Taisha Suarez RN Unavailable Unavaila Sandra Aguirre MD Unavailable +[phone] Abby Higgins MD PhD Unavailable + Adrian Martinez MD Unavailable [phone] Vera Pérez Unavailable Jim Frausto MD Unavailable Анна Robert RN Unavailable [phone] Encounter Details Date Type Department Care Team (Late Contact Info) Description 06/15/2020 Telephone [facility] Radiology 1 [facility] [place] [address] Adalberto Zavala MD [address] [place] [address] Social History Tobacco Use Types Packs/Day Years Used Date Smoking Tobacco: Former Smokeless Tobacco: Never Alcohol Use Standard Drinks/Week Comments Yes 0 (1 standard drink = 0.6 oz pur e alcohol) Occassional Sex and Gender Information Value Date Recorded Sex Assigned at Not on file Legal Sex Male 12:58 AM ELECTRONICS ENGINEERING TECHNICIAN Gender Identity Male 11/11/2018 10:31 AM CDT Sexual Orientation Straight 06/09/2019 5: 34 PM ELECTRONICS ENGINEERING TECHNICIAN documented as of this encounter Plan of Treatment Upcoming Encounters Date Type Department Care Team (Late Contact Info) Description 04/20/2025 Orders Only [facility] Medicine Oncology 10 [facility] [address] [place] [id number] Tory Nye Pancreatic adenocarcinoma (HCC) (Primary Dx) [...] COVID: Suspected 06/07/2023 06/07/2023 06/07/2023 12:46 PM ELECTRONICS ENGINEERING TECHNICIAN COVID19 06/07/2023 06/07/2023 06/22/2023 3:06 AM ELECTRONICS ENGINEERING TECHNICIAN COVID: Recovered Comment:Added based on recent COVID infection. 06/22/2023 06/22/2023 09/20/2023 3:05 AM C DT COVID: Suspected 07/24/2023 07/24/2023 07/24/2023 3:53 PM ELECTRONICS ENGINEERING TECHNICIAN Diarrhea 07/30/2023 07/30/2023 08/13/2023 3:05 AM ELECTRONICS ENGINEERING TECHNICIAN COVID: Suspected 08/30/2023 08/30/2023 08/30/2023 4:52 PM ELECTRONICS ENGINEERING TECHNICIAN COVID: Suspected 10/12/2023 10/12/2023 10/12/2023 7:57 PM CDT Rhino/Enterovirus 10/12/2023 10/12/2023 10/26/2023 3:05 AM CDT COVID: Suspected 07/10/2024 07/10/2024 07/10/2024 4:53 PM ELECTRONICS ENGINEERING TECHNICIAN COVID: Suspected Comment:07/16/2024 IP Review: no outstanding test, last RPP negative. Mary Tiwari RN 07/16/2024 07/16/2024 10:51 AM ELECTRONICS ENGINEERING TECHNICIAN COVID19 Comment:07/16/2024 IP Review: added by RN, RPP negative. Mary Tiwari RN 07/16/2024 07/16/2024 07/16/2024 10:51 AM ELECTRONICS ENGINEERING TECHNICIAN MRSA Comment:nasalMRSA Isolation [facility] 09/03/24 07/16/2024 08/15/2024 09/03/2024 6:[address] C. difficile suspected 07/19/2024 07/19/202407/19 2:34 PM ELECTRONICS ENGINEERING TECHNICIAN COVID: Suspected 07/23/2024 07/23/2024 07/23/2024 11:28 PM ELECTRONICS ENGINEERING TECHNICIAN C. difficile suspected 07/23/2024 07/24/202407/24 10:31 AM ELECTRONICS ENGINEERING TECHNICIAN Norovirus suspected 07/23/2024 07/24/2024 07/24/19 9:37 AM ELECTRONICS ENGINEERING TECHNICIAN VRE Comment:Contact Precautions (gown and gloves) - not eligible for IP review until 6 months after positive culture - Jerod QURESHI, CONY 10/01/24 07/24/2024 09/20/2024 03/19/2025 7:26 PM C DT COVID: Suspected 08/09/2024 08/09/2024 08/09/2024 9:40 AM ELECTRONICS ENGINEERING TECHNICIAN Influenza, adult Comment:08/26/2024 IP Review: pt afebrile but on antipyretics. Needs 24 hours off antipyretics and symptoms significantly improved/resolved in order for isolation to be discontinued. Mary Tiwari RN 08/15/2024 08/15/2024 08/29/2024 3:06 AM ELECTRONICS ENGINEERING TECHNICIAN Coronavirus, droplet 08/15/2024 08/15/202408/29/ 025 3:06 AM ELECTRONICS ENGINEERING TECHNICIAN C. difficile suspected 09/19/2024 09/19/202409/202025 3:05 AM CDT C. difficile suspected 09/20/2024 [...] documented as of this encounter Care Teams Access Rep Relationship Specialty Start Date End Date Kenton Ricks MD PCP - General 08/14/16 Pebbles Nelson MD Referring Physician Cardiology 02/07/19 Aylin Russ MD [address] [facility] [address] [place] [address] Referring Physician Pulmonary Disease 02/07/19 Maricruz Ramirez ASSOCIATE THEATRE PROFESSOR [address] [facility] [address] [place] [address] Nurse Practitioner Cardiovascular Disease 09/25/21 Joanne Lopez, CONY Registered Nurse Pulmonary Disease 08/24/22 Leatha Cristina RMA Surgical Prehabilitation and Readiness (SPAR) Coordinator 09/01/22 01/02/23 Ben Chahal MD PhD 10 [facility] [address] 2 [facility] [place] [place] [address] Medical Oncologist/Director Emergency Medical Oncology 10/05/22 Chace Oliva MD [address] [facility] [address] [place] [address] Consulting Physician Infectious Diseases 12/22/2204/01 Giovanna Alexis MD [address] [facility] [address] [place] [address] Radiation Oncologist Radiation Oncology 03/09/23 Taisha Suarez, shot coat tender Prehabilitation and Readiness (SPAR) Coordinator General Surgery 03/20/23 04/10/23 Sandra Ma MD [address] [facility] MEDICAL ONCOLOGY, [address]A, 7B, [address] [place] [address] Consulting Physician Medical Oncology 04/25/23 05/09/23 Abby Higgins MD PhD [address] DIV IM MEDICAL ONCOLOGY, [address]A, 7B, [address] [place] [address] Medical Oncologist/Director Emergency Medical Oncology 05/10/23 Adrian Martinez MD [address] DIV SURG TRANSPLANT, [address] [place] [address] Surgical Oncologist Surgical Oncology 05/28/23 Vera Pérez PA [address] [place] [phone] [place] [address] Physician Trim Technician Colon and Rectal Surgery 09/13/23 Jim Frausto MD [address] [facility] [phone] [place] [address] Surgeon Colon and Rectal Surgery 11/21/23 Анна Robert, RN [address] [facility] [address] [place] [address] SHOP Outpatient Tobacco Curer 09/29/24 10/01/24 documented as of this encounter
--- OUTSIDE RECORDS SUMMARY | 2025-04-17 10:32 | XMS_ITS | Encounter Summary ---
Author Organization [facility] Address [address] [place] [address] Phone Care Team Providers Care Oracle Fusion Middleware Architect Name Role Phone Kenton Ricks MD Primary Care Provider + [phone] Pbebles Nelson MD Unavailable [phone] Aylin Russ MD Unavailable [phone] Maricruz Ramirez NP Unavailable [phone] Joanne Lopez RN Unavailable Padmini Leatha Carter Unavailable Unavailable Ben Chahal MD PhD Unavailable [phone] Chace Oliva MD Unavailable [phone] Giovanna Alexis MD Unavailable Taisha Suarez RN Unavailable Unavaila Sandra Aguirre MD Unavailable [phone] Abby Higgins MD PhD Unavailable + Adrian Martinez MD Unavailable [phone] Vera Pérez Unavailable [phone] Jim Frausto MD Unavailable [phone] Анна Robert RN Unavailable [phone] Encounter Details Date Type Department Care Team (Late st Contact Info) Description 07/13/2017 Orders Only [facility]INCONV Provider, MD Max [address] [place], [place] [id number] Social History Tobacco Use Types Packs/Day Years Used Date Smoking Tobacco: Former Sex and Gender Information Value Date Recorded Sex Assigned at Not on file Legal Sex Male 12:58 AM WAREHOUSE ASSOCIATE Gender Identity Male 11/11/2018 10:31 AM CDT Sexual Orientation Straight 06/09/2019 5: 34 PM WAREHOUSE ASSOCIATE documented as of this encounter Plan of Treatment Upcoming Encounters Date Type Department Care Team (Late st Contact Info) Description 04/20/2025 Orders Only [facility] Medicine Oncology 10 [facility] [address] [place] [address] Tory Nye Pancreatic adenocarcinoma (HCC) (Primary Dx) [...] 3:05 AM C DT COVID: Suspected 09/23/2021 09/23/202109/23/2021 10:23 AM CDT MDR gram neg/ESBL 04/05/2022 [...] COVID: Suspected 06/07/2023 06/07/2023 06/07/2023 12:46 PM WAREHOUSE ASSOCIATE COVID19 06/07/2023 06/07/2023 06/22/2023 3:06 AM WAREHOUSE ASSOCIATE COVID: Recovered Comment:Added based on recent COVID infection. 06/22/2023 06/22/2023 09/20/2023 3:05 AM C DT COVID: Suspected 07/24/2023 07/24/2023 07/24/2023 3:53 PM WAREHOUSE ASSOCIATE Diarrhea 07/30/2023 07/30/2023 08/13/2023 3:05 AM WAREHOUSE ASSOCIATE COVID: Suspected 08/30/2023 08/30/2023 08/30/2023 4:52 PM WAREHOUSE ASSOCIATE COVID: Suspected 10/12/2023 10/12/2023 10/12/2023 7:57 PM CDT Rhino/Enterovirus 10/12/2023 10/12/2023 10/26/2023 3:05 AM CDT COVID: Suspected 07/10/2024 07/10/2024 07/10/2024 4:53 PM WAREHOUSE ASSOCIATE COVID: Suspected Comment:07/16/2024 IP Review: no outstanding test, last RPP negative. Mary Tiwari RN 07/16/2024 07/16/2024 10:51 AM WAREHOUSE ASSOCIATE COVID19 Comment:07/16/2024 IP Review: added by RN, RPP negative. Mary Tiwari RN 07/16/2024 07/16/2024 07/16/2024 10:51 AM WAREHOUSE ASSOCIATE MRSA Comment:nasalMRSA Isolation [facility] 09/03/24 07/16/2024 08/15/2024 09/03/2024 6:[address] C. difficile suspected 07/19/2024 07/19/202407/19 2:34 PM WAREHOUSE ASSOCIATE COVID: Suspected 07/23/2024 07/23/2024 07/23/2024 11:28 PM WAREHOUSE ASSOCIATE C. difficile suspected 07/23/2024 07/24/202407/24 10:31 AM WAREHOUSE ASSOCIATE Norovirus suspected 07/23/2024 07/24/2024 07/24/19 9:37 AM WAREHOUSE ASSOCIATE VRE Comment:Contact Precautions (gown and gloves) - not eligible for IP review until 6 months after positive culture - Jerod QURESHI, CONY 10/01/24 07/24/2024 09/20/2024 03/19/2025 7:26 PM C DT COVID: Suspected 08/09/2024 08/09/2024 08/09/2024 9:40 AM WAREHOUSE ASSOCIATE Influenza, adult Comment:08/26/2024 IP Review: pt afebrile but on antipyretics. Needs 24 hours off antipyretics and symptoms significantly improved/resolved in order for isolation to be discontinued. Mary Tiwari RN 08/15/2024 08/15/2024 08/29/2024 3:06 AM WAREHOUSE ASSOCIATE Coronavirus, droplet 08/15/2024 08/15/2024 025 3:06 AM WAREHOUSE ASSOCIATE C. difficile suspected 09/19/2024 09/19/202409/20 3:05 [...] documented as of this encounter Care Teams Oracle Fusion Middleware Architect Relationship Specialty Start Date End Date Kenton Ricks MD PCP - General 08/14/16 Pebbles Nelson MD Referring Physician Cardiology 02/07/19 Aylin Russ MD [address] [facility] [address] [place] [address] Referring Physician Pulmonary Disease 02/07/19 Maricruz Ramirez NP [address] [facility] [address] [place] [address] Nurse Practitioner Cardiovascular Disease 09/25/21 Joanne Lopez, CONY Registered Nurse Pulmonary Disease 08/24/22 Leatha Cristina RMA Surgical Prehabilitation and Readiness (SPAR) Coordinator 09/01/22 01/02/23 Ben Chahal MD PhD 10 [facility] [address] [place] [address] Medical Oncologist/Stallion Keeper Medical Oncology 10/05/22 Chace Oliva MD [address] [place] [address] Consulting Physician Infectious Diseases 12/22/2204/01 Giovanna Alexis MD [address] [place] [address] Radiation Oncologist Radiation Oncology 03/09/23 Taisha Suarez, motorcycle subassembly repairer Prehabilitation and Readiness (SPAR) Coordinator General Surgery 03/20/23 04/10/23 Sandra Ma MD [address] [facility] DIV MEDICAL ONCOLOGY, [address]A, 7B, [address]C [place] [address] Consulting Physician Medical Oncology 04/25/23 05/09/23 Abby Higgins MD PhD [address] [facility] [address] DIV IM MEDICAL ONCOLOGY, [address] 7A, 7B, [address] [place] [address] Medical Oncologist/Stallion Keeper Medical Oncology 05/10/23 Adrian Martinez MD [address] [facility] [address] DIV SURG TRANSPLANT, [address] [place] [address] Surgical Oncologist Surgical Oncology 05/28/23 Vera Pérez PA [address] [phone] [place] [address] Physician Triage Assistant Colon and Rectal Surgery 09/13/23 Jim Frausto MD [address] [facility] [phone] [place] [address] Surgeon Colon and Rectal Surgery 11/21/23 Анна Robert, RN [address] [facility] [address] [place] [address] SHOP Outpatient Freezer Operator 09/29/24 10/01/24 documented as of this encounter
--- OUTSIDE RECORDS SUMMARY | 2025-04-17 10:32 | XMS_ITS | Clinical Summary ---
Author Organization [facility] Address [address] [place] [address] Phone Care Team Providers Care Antenna Rigger Name Role Phone Kenton Ricks MD Primary Care Provider [phone] Allergies Active Allergy Reactions Criticality Noted Date [...] ACEI to ARB. He will contact his spine specialist to follow up regarding this. Acute on [...] Comments Blood Pressure 118/68 05/24/2022 9:24 AM DIRECTOR MARKET RESEARCH Pulse - - Temperature 35.7 C (96.3 F) 05/24/2022 9:24 AM DIRECTOR MARKET RESEARCH Respiratory Rate 18 05/24/2022 9:24 AM DIRECTOR MARKET RESEARCH Oxygen Saturation - - Inhaled Oxygen Concentration - - Weight 126 kg (278 lb) 05/24/2022 9:24 AM DIRECTOR MARKET RESEARCH Height 172.7 cm (5' 8) 05/24/2022 9:24 AM DIRECTOR MARKET RESEARCH Body Mass Index 42.27 05/24/2022 9:24 AM DIRECTOR MARKET RESEARCH Plan of Treatment Health Maintenance Due Date Last Done Comments Pneumococcal PPSV23/PCV13 65 + Years / Low and Medium Risk (1 of 2 - PCV) 2005 Influenza Vaccine (#1) 2025 , 04/01/2017, 06/14/2016 Insurance [employer] MEDICARE ADVANTAGE Care Teams Antenna Rigger Relationship Specialty Start Date End Date Kenton Ricks MD [address] [place] [address] PCP - General Family Medicine 02/16/22
--- OUTSIDE RECORDS SUMMARY | 2025-04-17 10:32 | XMS_ITS | Encounter Summary ---
Author Organization [facility] Address [address] [place] [address] Phone Care Team Providers Care Barbering Teacher Name Role Phone Kenton Ricks MD Primary Care Provider + [phone] Kenton Ricks MD Primary Care Provider + [phone] Pebbles Nelson MD Unavailable [phone] Aylin Russ MD Unavailable [phone] Maricruz Ramirez NP Unavailable [phone] Joanne Lopez RN Unavailable Padmini Leatha Carter Unavailable Unavailable Ben Chahal MD PhD Unavailable [phone] Chace Oliva MD Unavailable [phone] Giovanna Alexis MD Unavailable Taisha Suarez RN Unavailable Unavaila aSndra Aguirre MD Unavailable [phone] Abby Higgins MD PhD Unavailable + Adrian Martinez MD Unavailable Vera Pérez Unavailable Jim Frausto MD Unavailable [phone] Анна Robert RN Unavailable Encounter Details Date Type Department Care Team (Late st Contact Info) Description 06/02/2016 Orders Only [facility] IM CAR CLINCONV Provider, MD Max [address] [place] [address] Social History Tobacco Use Types Packs/Day Years Used Date Smoking Tobacco: Never Assessed Sex and Gender Information Value Date Recorded Sex Assigned at Not on file Legal Sex Male 12:58 AM CUSTOMER LOGISTICS MANAGER Gender Identity Male 11/11/2018 10:31 AM CDT Sexual Orientation Straight 06/09/2019 5: 34 PM CUSTOMER LOGISTICS MANAGER documented as of this encounter Plan of Treatment Upcoming Encounters Date Type Department Care Team (Late st Contact Info) Description 04/20/2025 Orders Only [facility] Medicine Oncology 10 [facility] [address] [place] [address] Tory Nye Pancreatic adenocarcinoma (HCC) (Primary Dx) [...] COVID: Suspected 06/07/2023 06/07/2023 06/07/2023 12:46 PM CUSTOMER LOGISTICS MANAGER COVID19 06/07/2023 06/07/2023 06/22/2023 3:06 AM CUSTOMER LOGISTICS MANAGER COVID: Recovered Comment:Added based on recent COVID infection. 06/22/2023 06/22/2023 09/20/2023 3:05 AM C DT COVID: Suspected 07/24/2023 07/24/2023 07/24/2023 3:53 PM CUSTOMER LOGISTICS MANAGER Diarrhea 07/30/2023 07/30/2023 08/13/2023 3:05 AM CUSTOMER LOGISTICS MANAGER COVID: Suspected 08/30/2023 08/30/2023 08/30/2023 4:52 PM CUSTOMER LOGISTICS MANAGER COVID: Suspected 10/12/2023 10/12/2023 10/12/2023 7:57 PM CDT Rhino/Enterovirus 10/12/2023 10/12/2023 10/26/2023 3:05 AM CDT COVID: Suspected 07/10/2024 07/10/2024 07/10/2024 4:53 PM CUSTOMER LOGISTICS MANAGER COVID: Suspected Comment:07/16/2024 IP Review: no outstanding test, last RPP negative. Mary Tiwari RN 07/16/2024 07/16/2024 10:51 AM CUSTOMER LOGISTICS MANAGER COVID19 Comment:07/16/2024 IP Review: added by RN, RPP negative. Mary Tiwari RN 07/16/2024 07/16/2024 07/16/2024 10:51 AM CUSTOMER LOGISTICS MANAGER MRSA Comment:nasalMRSA Isolation Care Home 09/03/24 07/16/2024 08/15/2024 09/03/2024 6:[address] C. difficile suspected 07/19/2024 07/19/202407/19 2:34 PM CUSTOMER LOGISTICS MANAGER COVID: Suspected 07/23/2024 07/23/2024 07/23/2024 11:28 PM CUSTOMER LOGISTICS MANAGER C. difficile suspected 07/23/2024 07/24/202407/24 10:31 AM CUSTOMER LOGISTICS MANAGER Norovirus suspected 07/23/2024 07/24/2024 07/24/19 9:37 AM CUSTOMER LOGISTICS MANAGER VRE Comment:Contact Precautions (gown and gloves) - not eligible for IP review until 6 months after positive culture - Jerod QURESHI, CONY 10/01/24 07/24/2024 09/20/2024 03/19/2025 7:26 PM C DT COVID: Suspected 08/09/2024 08/09/2024 08/09/2024 9:40 AM CUSTOMER LOGISTICS MANAGER Influenza, adult Comment:08/26/2024 IP Review: pt afebrile but on antipyretics. Needs 24 hours off antipyretics and symptoms significantly improved/resolved in order for isolation to be discontinued. Mary Tiwari RN 08/15/2024 08/15/2024 08/29/2024 3:06 AM CUSTOMER LOGISTICS MANAGER Coronavirus, droplet 08/15/2024 08/15/2024 025 3:06 AM CUSTOMER LOGISTICS MANAGER C. difficile suspected 09/19/2024 09/19/202409/20 3:05 [...] documented as of this encounter Care Teams Barbering Teacher Relationship Specialty Start Date End Date Kenton Ricks MD PCP - General 08/14/16 Kenton Ricks MD PCP - General 09/17/08 08/13/16 Pebbles Nelson MD Referring Physician Cardiology 02/07/19 Aylin Russ MD [address] [place] [address] Referring Physician Pulmonary Disease 02/07/19 Maricruz Ramirez NP [address] [place] [address] Nurse Practitioner Cardiovascular Disease 09/25/21 Joanne Lopez, RN Registered Nurse Pulmonary Disease 08/24/22 Leatha Cristina RMA Surgical Prehabilitation and Readiness (SPAR) Coordinator 09/01/22 01/02/23 Ben Chahal MD PhD 10 [facility] [address] 2 [place] [address] Medical Oncologist/Survey Operations Director Medical Oncology 10/05/22 Chace Oliva MD [address] [place] [address] Consulting Physician Infectious Diseases 12/22/2204/01 Giovanna Alexis MD [address] [place] [address] Radiation Oncologist Radiation Oncology 03/09/23 Taisha Suarez, accessioner Prehabilitation and Readiness (SPAR) Coordinator General Surgery 03/20/23 04/10/23 Sandra Ma MD [address] DIV IM MEDICAL ONCOLOGY, [address]A, 7B, [address] [place] [address] Consulting Physician Medical Oncology 04/25/23 05/09/23 Abby Higgins MD PhD [address] DIV IM MEDICAL ONCOLOGY, [address]A, 7B, [address] [place] [address] Medical Oncologist/Survey Operations Director Medical Oncology 05/10/23 Adrian Martinez MD [address] DIV SURG TRANSPLANT, [address] [place] [address] Surgical Oncologist Surgical Oncology 05/28/23 Vera Pérez PA [address] [place] [phone] [place] [address] Physician Electronic News Gathering Editor Colon and Rectal Surgery 09/13/23 Jim Frausto MD [address] [facility] [phone] [place] [address] Surgeon Colon and Rectal Surgery 11/21/23 Анна Robert RN [address] [facility] [address] [place] [address] SHOP Outpatient Cena 09/29/24 10/01/24 documented as of this encounter
--- OUTSIDE RECORDS SUMMARY | 2025-04-17 10:32 | XMS_ITS | Encounter Summary ---
Author Organization [facility] Address [address] [place] [address] Care Team Providers Care Information Security Officer Name Role Phone Kenton Ricks MD Primary Care Provider + [phone] Pebbles Nelson MD Unavailable [phone] Aylin Russ MD Unavailable +[phone] Maricruz Ramirez NP Unavailable [phone] Joanne Lopez RN Unavailable Padmini Leatha Carter Unavailable Unavailable Ben Cahhal MD PhD Unavailable [phone] Chace Oliva MD Unavailable +[phone] Giovanna Alexis MD Unavailable Taisha Suarez RN Unavailable Unavaila Sandra Aguirre MD Unavailable [phone] Abby Higgins MD PhD Unavailable + Adrian Martinez MD Unavailable [phone] Vera Pérez Unavailable Jim Frausto MD Unavailable Анна Robert RN Unavailable [phone] Encounter Details Date Type Department Care Team (Late st Contact Info) Description 08/12/2020 Telephone Imaging [id number] [place] [address] Hallie Whitaker, RT Social History Tobacco Use Types Packs/Day Years Used Date Smoking Tobacco: Former Smokeless Tobacco: Never Alcohol Use Standard Drinks/Week Comments Yes 0 (1 standard drink = 0.6 oz pur e alcohol) Occassional Sex and Gender Information Value Date Recorded Sex Assigned at Not on file Legal Sex Male 12:58 AM WEFT STRAIGHTENER Gender Identity Male 11/11/2018 10:31 AM CDT Sexual Orientation Straight 06/09/2019 5: 34 PM WEFT STRAIGHTENER documented as of this encounter Plan of Treatment Upcoming Encounters Date Type Department Care Team (Late st Contact Info) Description 04/20/2025 Orders Only [facility] Medicine Oncology [address] [facility] [address] [place] [address] Tory Nye Pancreatic adenocarcinoma (HCC) (Primary Dx) [...] COVID: Suspected 06/07/2023 06/07/2023 06/07/2023 12:46 PM WEFT STRAIGHTENER COVID19 06/07/2023 06/07/2023 06/22/2023 3:06 AM WEFT STRAIGHTENER COVID: Recovered Comment:Added based on recent COVID infection. 06/22/2023 06/22/2023 09/20/2023 3:05 AM C DT COVID: Suspected 07/24/2023 07/24/2023 07/24/2023 3:53 PM WEFT STRAIGHTENER Diarrhea 07/30/2023 07/30/2023 08/13/2023 3:05 AM WEFT STRAIGHTENER COVID: Suspected 08/30/2023 08/30/2023 08/30/2023 4:52 PM WEFT STRAIGHTENER COVID: Suspected 10/12/2023 10/12/2023 10/12/2023 7:57 PM CDT Rhino/Enterovirus 10/12/2023 10/12/2023 10/26/2023 3:05 AM CDT COVID: Suspected 07/10/2024 07/10/2024 07/10/2024 4:53 PM WEFT STRAIGHTENER COVID: Suspected Comment:07/16/2024 IP Review: no outstanding test, last RPP negative. Mary Tiwari RN 07/16/2024 07/16/2024 10:51 AM WEFT STRAIGHTENER COVID19 Comment:07/16/2024 IP Review: added by RN, RPP negative. Mary Tiwari RN 07/16/2024 07/16/2024 07/16/2024 10:51 AM WEFT STRAIGHTENER MRSA Comment:nasalMRSA [facility] 09/03/24 07/16/2024 08/15/2024 09/03/2024 6:[address] C. difficile suspected 07/19/2024 07/19/202407/19 2:34 PM WEFT STRAIGHTENER COVID: Suspected 07/23/2024 07/23/2024 07/23/2024 11:28 PM WEFT STRAIGHTENER C. difficile suspected 07/23/2024 07/24/202407/24 10:31 AM WEFT STRAIGHTENER Norovirus suspected 07/23/2024 07/24/2024 07/24/19 9:37 AM WEFT STRAIGHTENER VRE Comment:Contact Precautions (gown and gloves) - not eligible for IP review until 6 months after positive culture - Jerod QURESHI, CONY 10/01/24 07/24/2024 09/20/2024 03/19/2025 7:26 PM C DT COVID: Suspected 08/09/2024 08/09/2024 08/09/2024 9:40 AM WEFT STRAIGHTENER Influenza, adult Comment:08/26/2024 IP Review: pt afebrile but on antipyretics. Needs 24 hours off antipyretics and symptoms significantly improved/resolved in order for isolation to be discontinued. Mary Tiwari RN 08/15/2024 08/15/2024 08/29/2024 3:06 AM WEFT STRAIGHTENER Coronavirus, droplet 08/15/2024 08/15/2024 025 3:06 AM WEFT STRAIGHTENER C. difficile suspected 09/19/2024 09/19/202409/20 3:05 AM [...] documented as of this encounter Care Teams Information Security Officer Relationship Specialty Start Date End Date Kenton Ricks MD PCP - General 08/14/16 Pebbles Nelson MD Referring Physician Cardiology 02/07/19 Aylin Russ MD [address] [place] [address] Referring Physician Pulmonary Disease 02/07/19 Maricruz Ramirez, DIRECTOR OF ASSESSING [address] [place] [address] Nurse Practitioner Cardiovascular Disease 09/25/21 Joanne Lopez, CONY Registered Nurse Pulmonary Disease 08/24/22 Leatha Cristina RMA Surgical Prehabilitation and Readiness (SPAR) Coordinator 09/01/22 01/02/23 Ben Chahal MD PhD [address] [facility] [address] [place] [address] Medical Oncologist/Corporate Controller Medical Oncology 10/05/22 Chace Oliva MD [address] [place] [address] Consulting Physician Infectious Diseases 12/22/2204/01 Giovanna Alexis MD [address] [place] [address] Radiation Oncologist Radiation Oncology 03/09/23 Taisha Suarez, spool cleaner Prehabilitation and Readiness (SPAR) Coordinator General Surgery 03/20/23 04/10/23 Sandra aM MD [address] DIV IM MEDICAL ONCOLOGY, [facility] [address], [address] [place] [address] Consulting Physician Medical Oncology 04/25/23 05/09/23 Abby Higgins MD PhD [address] DIV IM MEDICAL ONCOLOGY, [address] [place] [address] Medical Oncologist/Corporate Controller Medical Oncology 05/10/23 Adrian Martinez MD [address] [facility] DIV SURG TRANSPLANT, [facility] [address] [place] [address] Surgical Oncologist Surgical Oncology 05/28/23 Vera Pérez PA [address] [id number] [place] [address] Physician Finishing Room Operator Colon and Rectal Surgery 09/13/23 Jim Frausto MD [address] [facility] [phone] [place] [address] Surgeon Colon and Rectal Surgery 11/21/23 Анна Robert, RN [address] [facility] [address] [place] [address] SHOP Outpatient State Appellate Clerk 09/29/24 10/01/24 documented as of this encounter
--- OUTSIDE RECORDS SUMMARY | 2025-04-17 10:32 | XMS_ITS | Encounter Summary ---
Author Organization [facility] Address [address] [place] [address] Phone Care Team Providers Care Classroom Instructional Aide Name Role Phone Kenton Ricks MD Primary Care Provider + [phone] Pebbles Nelson MD Unavailable [phone] Aylin Russ MD Unavailable [phone] Maricruz Ramirez NP Unavailable [phone] Joanne Lopez RN Unavailable Padmini Leatha Carter Unavailable Unavailable Ben Chahal MD PhD Unavailable [phone] Chace Oliva MD Unavailable [phone] Giovanna Alexis MD Unavailable Taisha Suarez RN Unavailable Unavaila Sandra Aguirre MD Unavailable [phone] Abby Higgins MD PhD Unavailable + Adrian Martinez MD Unavailable Vera Pérez Unavailable [phone] Jim Frausto MD Unavailable Анна Robert RN Unavailable Encounter Details Date Type Department Care Team (Late st Contact Info) Description 08/10/2020 Telephone [facility] Cardiology [address] [facility] 8th [place] [address] [place] [address] Pebbles Nelson MD [address] [facility] [address] [place] [address] Social History Tobacco Use Types Packs/Day Years Used Date Smoking Tobacco: Former Smokeless Tobacco: Never Alcohol Use Standard Drinks/Week Comments Yes 0 (1 standard drink = 0.6 oz pur e alcohol) Occassional Sex and Gender Information Value Date Recorded Sex Assigned at Not on file Legal Sex Male 12:58 AM SUGAR CANE PLANTER Gender Identity Male 11/11/2018 10:31 AM CDT Sexual Orientation Straight 06/09/2019 5: 34 PM SUGAR CANE PLANTER documented as of this encounter Plan of Treatment Upcoming Encounters Date Type Department Care Team (Late Contact Info) Description 04/20/2025 Orders Only [facility] Medicine Oncology 10 [facility] [address] [place] [address] Tory Nye Pancreatic adenocarcinoma (HCC) (Primary Dx) [...] COVID: Suspected 06/07/2023 06/07/2023 06/07/2023 12:46 PM SUGAR CANE PLANTER COVID19 06/07/2023 06/07/2023 06/22/2023 3:06 AM SUGAR CANE PLANTER COVID: Recovered Comment:Added based on recent COVID infection. 06/22/2023 06/22/2023 09/20/2023 3:05 AM C DT COVID: Suspected 07/24/2023 07/24/2023 07/24/2023 3:53 PM SUGAR CANE PLANTER Diarrhea 07/30/2023 07/30/2023 08/13/2023 3:05 AM SUGAR CANE PLANTER COVID: Suspected 08/30/2023 08/30/2023 08/30/2023 4:52 PM SUGAR CANE PLANTER COVID: Suspected 10/12/2023 10/12/2023 10/12/2023 7:57 PM CDT Rhino/Enterovirus 10/12/2023 10/12/2023 10/26/2023 3:05 AM CDT COVID: Suspected 07/10/2024 07/10/2024 07/10/2024 4:53 PM SUGAR CANE PLANTER COVID: Suspected Comment:07/16/2024 IP Review: no outstanding test, last RPP negative. Mary Tiwari RN 07/16/2024 07/16/2024 10:51 AM SUGAR CANE PLANTER COVID19 Comment:07/16/2024 IP Review: added by RN, RPP negative. Mary Tiwari RN 07/16/2024 07/16/2024 07/16/2024 10:51 AM SUGAR CANE PLANTER MRSA Comment:nasalMRSA [facility] 09/03/24 07/16/2024 08/15/2024 09/03/2024 6:[address] C. difficile suspected 07/19/2024 07/19/202407/19 2:34 PM SUGAR CANE PLANTER COVID: Suspected 07/23/2024 07/23/2024 07/23/2024 11:28 PM SUGAR CANE PLANTER C. difficile suspected 07/23/2024 07/24/202407/24 10:31 AM SUGAR CANE PLANTER Norovirus suspected 07/23/2024 07/24/2024 07/24/19 9:37 AM SUGAR CANE PLANTER VRE Comment:Contact Precautions (gown and gloves) - not eligible for IP review until 6 months after positive culture - Jerod QURESHI, CONY 10/01/24 07/24/2024 09/20/2024 03/19/2025 7:26 PM C DT COVID: Suspected 08/09/2024 08/09/2024 08/09/2024 9:40 AM SUGAR CANE PLANTER Influenza, adult Comment:08/26/2024 IP Review: pt afebrile but on antipyretics. Needs 24 hours off antipyretics and symptoms significantly improved/resolved in order for isolation to be discontinued. Mary Tiwari RN 08/15/2024 08/15/2024 08/29/2024 3:06 AM SUGAR CANE PLANTER Coronavirus, droplet 08/15/2024 08/15/202408/29/ 025 3:06 AM SUGAR CANE PLANTER C. difficile suspected 09/19/2024 09/19/202409/20 3:05 AM [...] documented as of this encounter Care Teams Classroom Instructional Aide Relationship Specialty Start Date End Date Kenton Ricks MD PCP - General 08/14/16 Pebbles Nelson MD Referring Physician Cardiology 02/07/19 Aylin Russ MD [address] [facility] [address] [place] [address] Referring Physician Pulmonary Disease 02/07/19 Marciruz Ramirez, CHRISTINE [address] [facility] [address] [place] [address] Nurse Practitioner Cardiovascular Disease 09/25/21 Joanne Lopez, CONY Registered Nurse Pulmonary Disease 08/24/22 Leatha Cristina RMA Surgical Prehabilitation and Readiness (SPAR) Coordinator 09/01/22 01/02/23 Ben Chahal MD PhD [address] [facility] [address] [place] [address] Medical Oncologist/Ramp Attendant Medical Oncology 10/05/22 Chace Oliva MD [address] [facility] [address] [place] [address] Consulting Physician Infectious Diseases 12/22/2204/01 Giovanna Alexis MD [address] [place] [address] Radiation Oncologist Radiation Oncology 03/09/23 Taisha Suarez, radiation oncology manager Prehabilitation and Readiness (SPAR) Coordinator General Surgery 03/20/23 04/10/23 Sandra Ma MD [address] [facility] DIV MEDICAL ONCOLOGY, [address] [place] [address] Consulting Physician Medical Oncology 04/25/23 05/09/23 Abby Higgins MD PhD [address] [facility] [address] DIV IM MEDICAL ONCOLOGY, [address], [address], [address] [place] [address] Medical Oncologist/Ramp Attendant Medical Oncology 05/10/23 Adrian Martinez MD [address] [facility] [address] DIV SURG TRANSPLANT, [facility] [address] [place] [address] Surgical Oncologist Surgical Oncology 05/28/23 Vera Pérez PA [address] [id number] [place] [address] Physician Baffle Mounter Colon and Rectal Surgery 09/13/23 Jim Frausto MD [address] [facility] [phone] [place] [address] Surgeon Colon and Rectal Surgery 11/21/23 Анна Robert, RN [address] [facility] [address] [place] [address] SHOP Outpatient Lead Athlete 09/29/24 10/01/24 documented as of this encounter
--- OUTSIDE RECORDS SUMMARY | 2025-04-17 10:33 | XMS_ITS | Clinical Summary ---
Author Organization [facility] Address [address] [place] [address] Care Team Providers Care Supervisor Feed House Name Role Phone Kenton Ricks MD Primary Care Provider [phone] Allergies Active Allergy Reactions Criticality Noted Date [...] on file Legal Sex Male 4:35 AM SHOE ASSOCIATE Gender Identity Not on file Sexual [...] BS BLUE ACCESS/TRUE BLUE PPO Care Teams Supervisor Feed House Relationship Specialty Start Date End Date Kenton Ricks MD [address] [place] [address] PCP - General Family Practice 11/15/18
--- OUTSIDE RECORDS SUMMARY | 2025-04-17 10:33 | XMS_ITS | Clinical Summary ---
Author Organization [facility] Address [address] [address] Care Team Providers Care Bar Host/Hostess Name Role Phone Kenton Ricks MD Primary Care Provider + [phone] Pebbles Nelson MD Unavailable [phone] Aylin Russ MD Unavailable [phone] Maricruz Ramirez NP Unavailable [phone] Joanne Lopez RN Unavailable Padmini Ben Walker MD PhD Unavailable [phone] Giovanna Alexis MD Unavailable Abby Higgins MD PhD Unavailable + Adrian Martinez MD Unavailable [phone] Vera Pérez Unavailable [phone] Jim Frausto MD Unavailable [phone] Allergies Active Allergy Reactions Criticality Noted Date [...] mg total) by mouth nightly Active multivit ibuqmdkv-qswt-YB- calcium (THERA-M) 9 mg iron-400 mcg tablet Take 1 tablet by mouth nightly Active Gemtesa 75 mg tablet Take 75 mg by mouth nightly 024 Active FreeStyle Stephen 3 Plus Sensor [...] 60 tablet 025 Active lidocaine (LIDODERM) 5 %Indications:Creative Technologist misty diarrhea Place 1 patch on the skin daily for 12 hours Remove & discard patch within 12 hours or as directed by MD. 90 patch 3 025 2025 Active pancrelipase [...] day as needed (abdomial cramps) Active insulin degludec (TRESIBA) 100 unit/mL (3 [...] as needed for headaches 20 capsule Active pen needle, diabetic (BD Ultra-Fine Mini Pen Needle) 31 gauge x 3/16 needleIndications :Type 2 diabetes mellitus with other specified complication, without long-term current use of insulin TAKE WITH INSULIN INJECTION 4 TIMES A DAY 400 each Active pen needle, diabetic (BD Ultra-Fine Mini Pen Needle) 31 gauge x 3/16 needleIndications :Type 2 diabetes mellitus with other specified complication, without long-term current use of insulin TAKE WITH INSULIN INJECTION 4 TIMES A DAY 400 each 2 024 2024 Discontinued(R eorder) acetaminophen 500 mg capsuleIndication s:Fever,Pain Take 2 capsules (1,000 mg total) by mouth every 6 (six) hours as needed for fever or headaches 025 2024 Discontinued al & mag hydroxide simethicone-lidoc dinora oral suspension mixture Take 40 mL by mouth 4 (four) times a day as needed (Heartburn/ Indigestion) 200 mL 025 2024 Discontinued insulin aspart (NovoLOG) 100 unit/mL (3 mL) pen for injection Inject 12 Units under the skin 3 (three) times a day with meals 2024 Discontinued(P atient Reported) gabapentin (NEURONTIN) 600 mg tabletIndications :Neuropathic Pain [...] of cholecystectomy. He had similar LFT elevation which was evaluated by hepatology with liver [...] 08/23/2024 Assessment & Plan (08/26/2024 3:51 PM BLIND INSTALLER): The patient reported left eye pain with [...] 08/11/2024 Assessment & Plan (08/26/2024 4:05 PM BLIND INSTALLER): Patient developed hematemesis on 08/11 with hypotension [...] 08/04/2024 Assessment & Plan (08/22/2024 10:54 PM BLIND INSTALLER): Started allopurinol this admission Moderate protein-calorie malnutrition [...] PPI Assessment & Plan (08/11/2024 8:44 PM BLIND INSTALLER): - Recent admission 07/10-07/20 for abd pain. [...] 07/16/2024 Assessment & Plan (07/20/2024 11:28 AM BLIND INSTALLER): - Resulted with Nystatin Anal fissure 11/21/2023 [...] topical CCB - cannot obtain her at [facility] Assessment & Plan (11/22/2024 12:07 PM CDT): - psyllium qAM, added miralax daily - Added lidocaine jelly qid prn - Sitz baths BID - Will try to start topical CCB - cannot obtain her at [facility] Assessment & Plan (11/21/2024 11:50 AM CDT): - psyllium qAM, added miralax daily - Added lidocaine jelly qid prn - Sitz baths BID - Will try to start topical CCB - cannot obtain her at [facility] Assessment & Plan (11/20/2024 11:11 AM [...] Plan (11/20/2024 11:11 AM CDT): -CPAP at noc Assessment & Plan (11/20/2024 1:34 AM CDT): [...] albuterol Assessment & Plan (08/26/2024 4:00 PM BLIND INSTALLER): Cont. breo ellipta, prn albuterol Iron deficiency [...] 07/25/2023 Assessment & Plan (07/26/2023 12:35 PM BLIND INSTALLER): - Likely multifactorial 2/2 malignancy, recent whipple, chemotherapy, and pain - Very poor PO intake - RD c/s - Started Mirtazapine - Dietary supplementation - Increased Creon as above Malaise 07/24/2023 Assessment & Plan (07/25/2023 2:16 PM BLIND INSTALLER): - RVP negative - Improving Kidney lesion 07/21/2023 Assessment & Plan (07/25/2023 2:21 PM BLIND INSTALLER): - Left renal cyst noted since at [...] prn Assessment & Plan (07/26/2023 12:33 PM BLIND INSTALLER): - Acute on chronic epigastric pain following [...] 07/09/2023 Assessment & Plan (07/24/2023 5:22 PM BLIND INSTALLER): - Replace per protocol Class 1 obesity due to exces s calories with serious comorbidity and body mass index (BMI) of 34.0 to 34.9 in adult 06/01/2023 H/O Whipple procedure 05/30/2023 Gastrointestinal hemorrhage 05/30/2023 Assessment & Plan (07/14/2024 12:30 PM BLIND INSTALLER): History of Postoperative GI bleed. EGD 05/09/23 [...] Cefepime 02/04-02/07 - Linezolid 02/04-02/07 - Metronidazole /-02/07 Plan: - Continue observing off of antibiotics Neurogenic bladder 02/05/2023 Assessment & Plan (07/21/2023 2:06 AM BLIND INSTALLER): Also has Hx of prostate cancer s/p prostatectomy. Takes gemtesa at home which is not on formulary - continue home oxybutynin and flomax Assessment & Plan (02/09/2023 3:46 PM CDT): Patient presented w/ low urine output and asymptomatic urinary retention, required straight cath in [facility], currently voiding and emptying appropriately [...] 11/21/2022 Assessment & Plan (08/26/2024 4:05 PM BLIND INSTALLER): The patient presented with elevated alkaline phosphatase [...] he is scheduled MRI in December at [facility] (requires cardiac monitoring due to ICD) - he is hoping to have this done sooner. Ileus 11/21/2022 Assessment & Plan (07/20/2024 11:29 AM BLIND INSTALLER): - KUB done 07/13 showing ileus without [...] 10/08/2022 Assessment & Plan (07/21/2023 2:04 AM BLIND INSTALLER): Diagnosed in August 2022, now s/p course of Eliquis. Presented with trace b/l lower ext edema, b/l erythema and mild tenderness which per patient is increased from baseline. Had similar presentation last hospitalization and LE duplex 06/07 was negative - CTM and consider rescanning if persistent Assessment & Plan (06/09/2023 4:47 PM BLIND INSTALLER): Hx of DVT in August 2022, he [...] of mets or infection and transferred from [facility] to [facility]. ID here with low concern for BILLET INSPECTOR infection. - CT neck/soft tissue with contrast: [...] due to ICD. Plan to transfer to [facility] for further evaluation w/ possible MRI brain and LP. Rash 09/23/2022 Assessment & Plan (06/12/2023 3:50 PM BLIND INSTALLER): - contact dermatitis? Not concerned about drug [...] to melisa skin necrosis. - transfer to [facility] for derm eval Anemia 09/22/2022 Assessment & Plan (07/26/2023 12:35 PM BLIND INSTALLER): Acute on chronic. 7.4 on admission. 5 [...] negative. Assessment & Plan (06/12/2023 3:46 PM BLIND INSTALLER): HGb 7, plt 94, wbc 1.4, abs [...] 09/22/2022 Assessment & Plan (07/26/2023 12:34 PM BLIND INSTALLER): Has Hx of ileus. On scheduled Linzess, Miralax and PRN Senna-Docusate at home. Patient states he's been having 4-5 soft stools daily - Increased Creon as above. Bowel regimen. Assessment & Plan (06/07/2023 11:26 PM BLIND INSTALLER): Continue home regimen of Linzess, Miralax and [...] (08/30/2022): Added automatically from request for surgery [id number] Assessment & Plan (10/15/2023 2:34 PM CDT): Hx of L axillary nodes on CT increased from prior study Should f/u with Dr. Chahal Assessment & Plan (10/13/2023 2:03 PM CDT): Hx of L axillary nodes on CT increased from prior study Should f/u with Dr. Chahal Assessment & Plan (07/26/2023 12:31 PM BLIND INSTALLER): - s/p whipple. Follows with Dr. Chahal [...] plan to hold of next cycle of [place]/Abraxane till infectious etiology is ruled out Assessment [...] plan to hold of next cycle of [place]/Abraxane till infectious etiology is ruled out Assessment [...] surveillance Assessment & Plan (08/26/2024 4:00 PM BLIND INSTALLER): s/p whipple with PV/SMV resection (04/2023) and neoadjuvant chemo (completed 08/2023). Most recent scan showed no evidence of disease recurrence Currently on surveillance with CA 19-[address] CAP every 3 months Assessment & Plan (07/10/2024 10:48 PM BLIND INSTALLER): Pancreatic cancer s/p Whipple with PV/SMV resection on 04/11/2023 s/p neoadjuvant tx, On surveillance OP follow up. Assessment & Plan (06/08/2023 5:32 PM BLIND INSTALLER): Pancreatic adenocarcinoma sp Whipple, now on Gemcitabine (last infusion 06/04/2023), follows with Dr. Chhaal -Medical oncology consult appreciated -no active treatment [...] 1 Assessment & Plan (08/25/2022 12:23 PM BLIND INSTALLER): Recurrent UTI followed by ID with scrotal [...] 06/09/2019 Assessment & Plan (06/09/2019 12:54 PM BLIND INSTALLER): He is agreeable to rescheduling the splenic [...] aldactone Assessment & Plan (07/14/2024 12:35 PM BLIND INSTALLER): HFpEF Euvolemic, normotensive On hold diuretics for now given pt NPO on IVF for ileus, will restart once able to take in po Assessment & Plan (06/11/2023 10:01 PM BLIND INSTALLER): ECHO 11/21 EF 69%, grade I diastolic [...] diet Assessment & Plan (08/24/2022 1:10 PM BLIND INSTALLER): Stable, continued torsemide, spironolactone Assessment & Plan (09/24/2021 12:42 AM CDT): Patient is feeling better. states legs have decreased by half. Continue with IV lasix. Continue to monitor Cr and lytes as we diurese. Holding torsemide. Continue aldactone with hold parameters. Assessment & Plan (08/18/2018 1:16 AM BLIND INSTALLER): Patient presented with increased shortness of breath [...] NPPV Assessment & Plan (08/26/2024 4:02 PM BLIND INSTALLER): continue nightly CPAP Assessment & Plan (07/21/2023 6:17 AM BLIND INSTALLER): Desaturations noted in the ED during sleep per on monitor while on RA (not recorded) - continue nightly BiPAP Assessment & Plan (06/07/2023 11:32 PM BLIND INSTALLER): Continue nightly BiPAP Assessment & Plan (03/18/2023 [...] hospital Assessment & Plan (08/24/2022 1:08 PM BLIND INSTALLER): - home CPAP machine use Assessment & Plan (09/24/2021 12:39 AM CDT): Patient has home NPPV which has been reordered. Assessment & Plan (08/18/2018 1:17 AM BLIND INSTALLER): Patient with a history of of bilateral diaphragmatic paralysis with central and obstructive sleep apnea. Restart CPAP Shortness of breath at rest 08/18/2018 Assessment & Plan (08/18/2018 1:27 AM BLIND INSTALLER): Patient with complex past medical history with [...] 07/26/2018 Assessment & Plan (08/26/2024 4:05 PM BLIND INSTALLER): H/o vtach s/p ICD 2013 EP consulted for MRCP earlier in admission. Patient's device is conditioned for MRI. Risk stratification: standard Assessment & Plan (07/10/2024 10:38 PM BLIND INSTALLER): History of ventricular tachycardia ICD in place Assessment & Plan (07/21/2023 2:11 PM BLIND INSTALLER): Follows with Dr. Nelson in EP for [...] Aug Assessment & Plan (06/11/2023 9:59 PM BLIND INSTALLER): Follows with Dr. Nelson in EP for history of VT s/p ICD. Denies any recent shocks, as per not there was unscheduled alarm this month due to RV lead impedance. Has outpatient appointment in August Outpatient follow up with EP Assessment & Plan (03/18/2023 1:23 AM CDT): Monitor. MRI conditional. If needs MRI, will need to go to [facility]. Assessment & Plan (02/05/2023 6:58 PM [...] ordered Assessment & Plan (08/18/2018 1:17 AM BLIND INSTALLER): Last device interrogation was in July of [...] s/p shoulder surgery. Follows [facility] Russ ([facility]) as OP. On Symbicort at home. 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 Russ - c/w Breo-Ellipta Assessment & Plan (08/18/2018 1:17 AM BLIND INSTALLER): Continue with gabapentin Chronic heart failure with [...] PO Assessment & Plan (08/26/2024 4:06 PM BLIND INSTALLER): Volume down on admission due to diarrhea, now appear slightly volume up, likely I/s/o transfusions and held diuretics Continue to hold home torsemide and spironolactone for now, consider gently resuming prior to discharge Assessment & Plan (07/26/2023 12:34 PM BLIND INSTALLER): BLE edema with erythema noted on exam. 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 Assessment & Plan [...] regimen Assessment & Plan (08/26/2024 4:05 PM BLIND INSTALLER): Last A1c 8.4. Home regimen: tresiba 45 units, novolog 12 units w/ breakfast and dinner, 8 units with lunch and sliding scale 1:50 > 150 Continue lantus 5 units qam + SSI Assessment & Plan (07/17/2024 2:29 PM BLIND INSTALLER): - On tresiba 24U Qam and Lispro [...] hdssi Assessment & Plan (07/26/2023 12:33 PM BLIND INSTALLER): Insulin dependant. Home regimen: Tresiba 42 units qam, Meal-time insulin 15u tid, SSI. Has had poor oral intake over last 2-3 weeks. He mentions his Stephen 2 sensor has been recording low sugars in 40s-50s overnight for 1 week - SSI inpatient - QID accuchecks Assessment & Plan (06/08/2023 5:39 PM BLIND INSTALLER): Hgb1c 8.4% in 04/23, follows with endo [...] -SSI Assessment & Plan (08/24/2022 1:07 PM BLIND INSTALLER): -Home regimen metformin + Tresiba 35 units qAM and novolog 11 units with meals plus SSI -Continue basal bolus regimen, dose reduced while inpatient -Accuchecks Assessment & Plan (09/24/2021 12:38 AM CDT): Patient on PO hypoglycemics. Monitor on SSI. Assessment & Plan (06/09/2019 12:53 PM BLIND INSTALLER): Diet controlled. A1C at goal. On ARB. [...] 09/06/2015 Assessment & Plan (06/09/2019 12:49 PM BLIND INSTALLER): Nodule has not grown on interim imaging. Needs low dose dexamethasone suppression test annually x 5 years since initial evaluation given propensity of some adrenal nodules to become cortisol secreting overtime. Thyroid nodule 09/06/2015 Assessment & Plan (06/09/2019 12:48 PM BLIND INSTALLER): S/p FNA with benign cytology. Will repeat US in the spring to monitor biopsied thyroid nodule for growth. Multinodular goiter 05/10/2015 Hernia of abdominal wall 02/18/2015 Assessment & Plan (06/09/2019 12:54 PM BLIND INSTALLER): He will follow up with Dr. 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 Higgins in medical oncology [...] 02/23/2012 Assessment & Plan (08/26/2024 4:06 PM BLIND INSTALLER): continue home rosuvastatin consider resuming ASA Assessment & Plan (07/10/2024 10:44 PM BLIND INSTALLER): Cath in 10/2023 nonobstructive coronary artery disease [...] asthma Assessment & Plan (07/21/2023 2:06 AM BLIND INSTALLER): Follows with Dr. Nelson - Continue home Breo and PRN albuterol inhaler Assessment & Plan (06/07/2023 11:31 PM BLIND INSTALLER): Follows with Dr. Nelson in pulmonary -Continue home Breo and PRN albuterol inhaler Assessment & Plan (09/25/2022 1:41 AM CDT): -Continue home inhalers. Assessment & Plan (09/22/2022 11:00 AM CDT): Continue home inhalers. Assessment & Plan (08/21/2022 4:13 AM BLIND INSTALLER): -Symbicort replaced with formulary Breo Ellipta while inpatient -Continue prn albuterol Assessment & Plan (09/24/2021 12:42 AM CDT): Continue breathing treatment. Resolved Problems Problem Noted Date Diagnosed Date Resolved Date Abdominal pain, generalized 01/12/2025 01/13/2025 Ventilator associated pneumonia 08/22/2024 08/22/2024 Acute hypoxemic respiratory failure 08/22/2024 08/23/2024 Assessment & Plan (08/22/2024 8:41 PM BLIND INSTALLER): Fevers + O2 requirement Aug 14, subsequently found to be positive for Influenza A and Coronavirus ([id number]). 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 S/p tamiflu, Linezolid (08/15-08/18), Cefepime (08/15- 08/17), Ciprofloxacin (08/08). Currently on RA. - supportive care Dysuria 07/25/2024 08/24/2024 Assessment & Plan (08/22/2024 10:12 PM BLIND INSTALLER): Now resolved. UA on admission with leuk [...] 07/25/2024 Assessment & Plan (07/29/2024 3:21 PM BLIND INSTALLER): Pt reports new burning pain around left axilla that wraps to the front of his chest. Notes he had this before and area began draining pus and had a foul odor - no erythema or rash noted -Us L axilla- no signs of any fluid collection or lymphadenopathy - already on gabapentin KRISTA (acute kidney injury) 07/24/2024 Assessment & Plan (08/02/2024 11:26 AM BLIND INSTALLER): Resolved - Baseline Cr 0.5. Cr on admission was 1.01 - Likely pre-renal due to diarrhea - improved with IVF Dehydration 07/24/2024 08/26/2024 Assessment & Plan (07/26/2024 12:35 PM BLIND INSTALLER): - due to diarrhea - s/p 1L IVF bolus in [facility] and maintenance IVF Diarrhea 07/19/2024 08/24/2024 Assessment & Plan (08/09/2024 2:16 PM BLIND INSTALLER): - P/w 1-day history of 7-8 episodes [...] resolved Assessment & Plan (07/20/2024 11:33 AM BLIND INSTALLER): - Developed after resolution of ileus. - C diff negative - Increased Creon back to home dose - Imodium prn - Hold Linzess until diarrhea resolved Abdominal pain 11/09/2023 08/25/2024 Assessment & Plan (08/11/2024 8:39 PM BLIND INSTALLER): Acute on chronic abdominal pain. Likely multifactorial, [...] hematemesis Assessment & Plan (07/14/2024 12:31 PM BLIND INSTALLER): Hx of pancreatic cancer s/p whipple presented initially to the [facility] with abd pain , nausea [...] NSAIDs Assessment & Plan (07/10/2024 9:32 PM BLIND INSTALLER): Hx of pancreatic cancer s/p whipple presented initially to the [facility] with abd pain , nausea [...] 08/24/2024 Assessment & Plan (08/11/2024 8:40 PM BLIND INSTALLER): Complained chest pain at left chest while [...] 08/01/2024 Assessment & Plan (08/01/2024 2:54 PM BLIND INSTALLER): -has ICD in place Assessment & Plan [...] 03/31/2025 Assessment & Plan (06/12/2023 3:47 PM BLIND INSTALLER): Presented with 3 days of fever, dry [...] 08/22/2024 Assessment & Plan (08/05/2024 11:42 PM BLIND INSTALLER): RESOLVED. DDx include viral infection vs transient [...] prn. Assessment & Plan (07/20/2024 11:30 AM BLIND INSTALLER): - Developed fever 38.4 C on 07/16 [...] higher risk w/ active malignancy Generalized weakness 09/21/202210/28/ 023 Assessment & Plan (09/23/2022 2:02 PM [...] which raise concern for an infectious syndrome -WIRE ROLLER swab RPP negative -check blood cultures; hold [...] 10/28/2022 Assessment & Plan (08/24/2022 1:12 PM BLIND INSTALLER): Referred pancreatitis pain. 12 lead EKG shows no acute changes, baseline NSR with RBB and intrafascicular block. Trop negative. Elevated transaminase level 08/21/2022 10/28/2022 Assessment & Plan (08/24/2022 1:10 PM BLIND INSTALLER): First noted to have elevated alk phos, [...] 023 Assessment & Plan (08/22/2022 2:20 PM BLIND INSTALLER): Diagnosed as outpatient and started on fidaxomicin by ID 08/16/2022. Still with persistent diarrhea. -Continue fidaxomicin -ID following Pancreatic lesion 08/20/2022 10/28/2022 Overview (08/21/2022): Added automatically from request for surgery [id number] Assessment & Plan (08/24/2022 1:08 PM BLIND INSTALLER): S/P EUS wit FNA confirmed adenocarcinoma. GI arranging oncology and surgical follow up as outpatient Urinary tract infection asso ciated with cystostomy catheter, initial encounter 04/09/2022 0 10/28/2022 Brugada syndrome 07/09/2020 09/10/2020 Cough in adult 06/09/2019 10/28/2022 Assessment & Plan (06/09/2019 12:52 PM BLIND INSTALLER): This appears to be chronic and persist despite switching from ACEI to ARB. 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 Urinary incontinence 08/18/2018 023 Assessment & Plan (08/18/2018 1:22 AM BLIND INSTALLER): Continue with Myrbetriq and vesicare Polymorphic ventricular [...] 10/28/2022 Assessment & Plan (06/09/2019 12:47 PM BLIND INSTALLER): Congratulated on recent weight loss. Continue attention to diet, low carb, exercise as able. Palpitations 10/30/2012 10/28/2022 Disorder of lung 08/05/2012 10/28/2022 Narcolepsy 01/24/2012 10/28/2022 Abnormal blood chemistry level 01/19/2012 10/28/2022 Syncope 02/28/2011 10/28/2022 Encounter for preventive health examination 11/23/2010 10/28/2022 Encounters Date Type Department Care Team Description 04/13/2025 2:20 PM CDT Office Visit [facility] Endocrinology Metabolism and Lipid [address] [facility] [address], [address] [place] [id number] Margaret Balderas MD Type 2 diabetes mellitus with other specified complication, without long-term current use of insulin (Primary Dx); Type 2 diabetes mellitus with hyperglycemia, with long-term current use of insulin (HCC); Severe hyperglycemia due to diabetes mellitus (HCC) 04/11/2025 Orders Only [facility] Endocrinology Metabolism and Lipid [address] [facility] [address] [place] [address] [place] [address] Brii Mason MD Type 2 diabetes mellitus with other specified complication, without long-term current use of insulin 04/07/2025 7:30 PM CDT Office Visit [facility] Care at [address] [address] Rick Alvarez NP Pain in left testicle (Primary Dx); Swelling of left testicle 03/31/2025 4:37 PM CDT - 04/03/2025 8:40 AM CDT Hospital Encounter [facility] [address] [id number] [place] [address] Matthias Laurent MD Baum, MD Phoenix Butcher, MD Wilfredo Wright, Jenaro Zuluaga MD Intractable chronic migraine without aura and without status migrainosus (Primary Dx); Neurofibromatosis, type 1 (HCC); Acute nonintractable headache, unspecified headache type; Leg weakness, bilateral Discharge Disposition: Discharge to home or self care 03/31/2025 Documentation [facility] Oncology [address] [place] [address] Mary Grady CMA 03/26/2025 10:30 AM CDT Telemedicine [facility] Cancer Genetics Department [address] [place] [address] Flores Barnett CGC Pancreatic adenocarcinoma (HCC) (Primary Dx); Neurofibromatosis, type 1 (HCC); Family history of breast cancer; Family history of melanoma; Family history of thyroid cancer; Family history of adrenal cancer; Encounter for nonprocreative genetic counseling 03/26/2025 Telephone [facility] Cardiology [address] [facility] [address] [place] [address] [place] [id number] Nicki Conroy 03/23/2025 1:30 PM CDT Procedure visit [facility] Dermatology [address] [facility] [address] [place] [phone] Kemal Galvez MD Basal cell carcinoma (BCC) of right lower leg (Primary Dx) 03/18/2025 8:30 AM CDT Office Visit [facility] Cardiology [address] [facility] [address] [place] [address] Gil Baldwin MD Chronic diastolic congestive heart failure (HCC) (Primary Dx); Coronary artery disease involving wrangell coronary artery of wrangell heart, unspecified whether angina present; Paroxysmal atrial fibrillation (HCC) 03/06/2025 Documentation [facility] Endocrinology Metabolism and Lipid [address] [facility] [address] [place] [address] [place] [address] Mirtha Escalona MD 02/28/2025 8:43 PM CDT - 03/05/2025 3:43 PM CDT Hospital Encounter [facility] [address] [facility] [place] [address] Jorge L Garcia MD [place], Thabet J.M., MD Markova, Hannah Marie, MD Yu, Tong, MD Fever, unspecified fever cause (Primary Dx); Encounter for post surgical wound check Discharge Disposition: Discharge to home or self care 02/28/2025 Telephone [facility] Oncology [address] [facility] [address] [place] [address] Melva Vo RN 02/25/2025 Results Follow-Up [facility] Dermatology [address] [facility] [address] [facility] [address] [place] [phone] Kemal Galvez MD Surgical pathology 02/24/2025 Orders Only [facility] Medicine Pathology Outreach [address] [place] [address] Kemal Galvez MD Neoplasm of skin 02/23/2025 2:00 PM CDT Office Visit [facility] Dermatology [address] [facility] Floor 6 [place] [phone] Kemal Galvez MD Neoplasm of skin (Primary Dx); Neurofibroma; Neurofibromatosis, type 1 (HCC) 02/13/2025 Telephone [facility] Surgery [address] [place] [address] Medical Office Building 4 [address] [place] [address] Oksana Faust RN 02/06/2025 Telephone [facility] Cardiology [address] [facility] Medicine 8th [place] [address] [place] [phone] Pebbles Nelson MD 02/05/2025 1:36 PM CDT - 02/05/2025 11:59 PM CDT Hospital Encounter [facility] [address] [place] [address] Malignant neoplasm of pancreas, unspecified location of malignancy (HCC); Intractable pain Discharge Disposition: Discharge to home or self care 02/05/2025 Documentation [facility] Medicine Oncology [address] [facility] Floor 5 [place] [address] Breanna Han RN 01/30/2025 Telephone [facility] Oncology [address] [facility] Floor 5 [place] [address] Breanna Han RN 01/29/2025 Orders Only [facility] Medicine Oncology [address] [facility] Floor 5 [place] [phone] Ben Chahal MD PhD Malignant neoplasm of pancreas, unspecified location of malignancy (HCC) (Primary Dx); Intractable pain 01/26/2025 Documentation [facility] Cardiology [address] [place] [address] Medical Office Building 3 [address] [place] [address] Pebbles Nelson MD 01/23/2025 Results Follow-Up [facility] Gastroenterology [address] Medical Office Building [address], [address] [place] [phone] Debbie Rolon RN MRI/MRCP (abdomen) W WO Contrast 01/22/2025 Orders Only [facility] Cardiology [address] [place] [address] Office Building [address] [place] [phone] Pebbles Nelson MD 01/21/2025 9:27 AM CDT - 01/21/2025 11:59 PM CDT Hospital Encounter [facility] Radiology 1 [place] [address] Encounter for imaging to screen for metal prior to magnetic resonance imaging (MRI) Discharge Disposition: Discharge to home or self care 01/21/2025 7:48 AM CDT - 01/21/2025 11:59 PM CDT Hospital Encounter [facility] Radiology 1 [place] [address] scan, pelvis Discharge Disposition: Discharge to home or self care 01/21/2025 7:48 AM CDT - 01/21/2025 11:59 PM CDT Hospital Encounter [facility] Radiology 1 [place] [address] Encounter for imaging to screen for metal prior to magnetic resonance imaging (MRI) Discharge Disposition: Discharge to home or self care 01/21/2025 Documentation Cardiology Tati Patino NP 01/19/2025 3:00 PM CDT Office Visit [facility] Oncology [address] [facility] Floor 5 [place] [phone] Ben Chahal MD PhD Pancreatic adenocarcinoma (HCC) (Primary Dx) 01/19/2025 2:00 PM CDT Clinical Support [facility] Medicine Oncology Lab [address] Floor 5 [place] [address] Pancreatic adenocarcinoma (HCC) 01/19/2025 1:45 PM CDT Lab [facility] - Lab Collection [address] Floor 5 [place] [address] Ben Chahal MD PhD Pancreatic adenocarcinoma (HCC) 01/19/2025 12:38 PM CDT - 01/19/2025 11:59 PM CDT Hospital Encounter [facility] - [place] [address] Floor 8 [place] [address] Pancreatic adenocarcinoma (HCC) Discharge Disposition: Discharge to home or self care 01/12/2025 7:45 PM CDT - 01/15/2025 3:41 PM CDT Hospital Encounter [facility] [address] [address] [place] [address] Chaz Hernandez MD Heath, MD Regla Gonzalez, [...] week 01/13/2025 How often do you attend [facility] or m[facility]on services? More than 4 times per year 01/13/2025 Do you belong to any clubs o r organizations such as adventist groups, unions, fraternal or athletic groups, or [...] Date Recorded PHQ-2 Total Score 1 09/21/2024 [facility] - Occupational [...] place to sleep or slept in a chcf (including now)? No 11/12/2023 PHQ-9 Answer Date [...] any time in the past 12 [facility], were you homeless or living in a chcf (including now)? No 01/13/2025 Social Connection and [...] any clubs o r organizations such as adventist groups, unions, fraternal or athletic groups, or [...] any time in the past 12 [facility], were you homeless or living in a chcf (including now)? 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 Obstetrics History Last Filed Vital Signs Vital Sign Reading Time Taken Comments Blood Pressure 128/73 04/13/2025 2:20 PM CDT Pulse 67 04/13/2025 2:20 PM CDT Temperature 36.9 C (98.4 F) 04/07/2025 6:57 PM CDT Respiratory Rate 20 04/07/2025 6:57 PM CDT Oxygen Saturation 99% 04/07/2025 6:57 PM CDT Inhaled Oxygen Concentration - - Weight 100.2 kg (221 lb) 04/13/2025 2:20 PM CDT Height 175.3 cm (5' 9) 04/13/2025 2:20 PM CDT Body Mass Index 32.64 04/13/2025 2:20 PM CDT Plan of Treatment Upcoming Encounters Date Type Department Care Team (Late st Contact Info) Description 04/20/[facility]25 [facility] [address] [place] [address] Tory Nye Pancreatic adenocarcinoma (HCC) (Primary Dx) Health Maintenance Due Date Last Done Comments [...] Additional history exists Hemoglobin A1C 09/28/2025 03/31/2025, 0507/2024, 09/21/2024, Additional history exists Lipid Panel 11/19/2025 11/19/2024, 01/31, 09/22/2022, Additional history exists Fall Risk Assessment 04/03/2026 04/03/2025, 01/09/20 23 eGFR 04/14/2026 04/14/2025, 08/2024, 03/31/2025, Additional history exists DTaP/Tdap/Td Vaccine (2 - [...] 07/25/2024, 08/21/2022 Medical Devices Implanted Type Area International Guest Coordinator Device Identifier Shelf Expiration Date Model / Serial / Lot Biotronik Inc Implant Cardiac Defibrillator Dual Chamber Dr Chaparro Mri Compatible Blaine Son [id number] - [id number] - [id number] Implanted:Qty: 1 on 10/10/2023 by Pebbles Nelson MD at [facility] ICD Left: Chest Wall Biotronik Inc [id number] 08/01/2025 [id number] / [id number] / Medtronic Bladder Lead [id number] Lead Pelvis Medtronic 624Q0-0 8 / [id number] / Lead (Ra)-Setrox S S 53 Implanted:2013 by Pebbles Nelson MD (Quantity not on file) Lead Heart Biotronik 350 974 SETROX S S 53 / [id number] / Lead (Rv)-Linox Smart Sd 6518 Implanted:2013 by Pebbles Nelson MD (Quantity not on file) Lead Heart Biotronik 359 067 LINOX SMART SD 65/18 / [id number] / Medtronic Inc Tyrx Absorbable Antibacterial Envelope-Large 3.3x2.9in [id number] - [id number] - [id number] Implanted:Qty: 1 on 10/10/2023 by Pebbles Nelson MD at [facility] Other - see comments Left: Chest Wall Medtronic Inc 07/03/2024 [id number] / [id number] / [id number] Description:Antibacterial en velope Conmed Lei Viabil 8mm X 6cm Longwire [id number] - [id number] - [id number] Implanted:Qty: 1 on 12/15/2022 by Fede Das MD at [facility] Stent N/A: Bile Duct Conmed Lei 12/11/2024 [id number] / [id number] / Merrill [employer] Lei 8.5 Fr Nasal Biliary Catheter [id number] - [id number] Implanted:Qty: 1 on 04/25/2023 by Zuri Mera MD at [facility] Tube N/A: Jejunum Merrill [employer] Lei 04/02/2025 [id number] 40 / / [id number] Medtronic Interstim Bladder Stimulator 3058-03/26/2020 Implanted:2019 (Quantity not on file) Pelvis Medtronic [id number] / [id number] / Description:MRI compatable Use pt remote (menu MRI active) Merrill [employer] Lei Wallflex 8mm 8fr 60mm Rapid Exchange Delivery System Stent [id number] - [id number] Implanted:Qty: 1 on 09/08/2022 by Fede Das MD at [facility] N/A: Bile Duct [employer]ill [employer] Lei 03/21/2024 [id number] 10 / / [id number] Angio Dynamics Xcela Power Port 8fr [id number] - [id number] Implanted:Qty: 1 on 09/13/2022 at [facility] Angio Dynamics 04/19/2027 [id number] 270 / / [id number] [employer] Lei Supple Carmina-Guard [place] Processing 8x6cm Patch Cardiovascular [id number] - [id number] - [id number] Implanted:Qty: 1 on 04/11/2023 by Adrian Martinez MD at [facility] N/A: Superior Mesenteric Vein [employer] Lei [id number] 06/09/2027 [id number] / [id number] / Merrill [employer] Lei 8.5 Fr Nasal Biliary Catheter [id number] - [id number] Implanted:Qty: 1 on 05/01/2023 by Fede Das MD at [facility] Left: Nose [employer]ill [employer] Lei 12/18/2025 [id number] 40 / / [id number] Explanted Type Area International Guest Coordinator Device Identifier Shelf Expiration Date Model / Serial / Lot Icd-Iforia 7 Elisa Implanted:Qty: 1 on 02/19/2014 by Pebbles Nelson MD Explanted:Qty: 1 on 10/10/2023 ICD Chest Biotronik [id number] IFSWEETIE 7 ELISA / [id number] / Merrill Scientific Lei 10fr 5cm Biliary Stent [id number] - [id number] Implanted:Qty: 1 on 08/22/2022 by Fede Das MD at [facility] Explanted:Qty: 1 on 09/08/2022 by Fede Das MD at [facility] N/A: Bile Duct [employer] (Cuponium) Lei 01/27/2023 [id number] / / [id number] Procedures Procedure Name Priority Date/Time Associated Diagnosis Comments BASIC METABOLIC PANEL Routine 04/14/2025 11:32 AM CDT Type 2 diabetes mellitus with other specified complication, without long-term current use of insulin Type 2 diabetes mellitus with hyperglycemia, with long-term current use of insulin (HCC) Severe hyperglycemia due to diabetes mellitus (HCC) C-PEPTIDE Routine 04/14/2025 11:32 AM CDT Type 2 diabetes mellitus with other specified complication, without long-term current use of insulin Type 2 diabetes mellitus with hyperglycemia, with long-term current use of insulin (HCC) Severe hyperglycemia due to diabetes mellitus (HCC) POCT GLUCOSE DEVICE Routine 04/03/2025 8:32 AM [...] METABOLIC PANEL Routine 01/15/2025 6:07 AM CDT LIPID PANEL STAT 11/19/2024 1:05 PM CDT COLONOSCOPY 11/11/2024 11:01 AM CDT ALBUMIN CREATININE RATIO, URINE Routine 02/29/2024 8:27 AM CDT Type 2 diabetes mellitus with microalbuminuria, with long-term current use of insulin (HCC) PSA SCREEN Routine 04/16/2020 7:01 AM CDT Low testosterone in male from Last 3 Months or Most Recently Relevant to Health Maintenance Results * C-peptide (04/14/2025 11:32 AM CDT) C-peptide 1.24 0.80 - 3.85 ng/mL AdmazelyJeanna caterina Blood 04/14/2025 11:3 2 AM CDT 04/14/2025 11:32 AM CDT Narrative [facility] - 04/15/2025 6:35 AM CDT FASTING:YES FASTING: YES Margaret Balderas MD LAB BLOOD ORDERABLES Final R esult MILENA AdmazelyKaren [address] [address] [facility] [place], [place] [address] * (ABNORMAL) Basic metabolic panel (04/14/2025 11:32 AM CDT) Pathologist [facility] Glucose 183(H) 65 - 99 mg/dL AdmazelyNehemias Murphy Comment: Fasting reference interval For someone without known diabetes, a glucose value >125 mg/dL indicates that they may have diabetes and this should be confirmed with a follow-up test. BUN 17 7 - 25 mg/dL Milena Wis.dm-Ludwig Murphy Creatinine 0.68(L) 0.70 - 1.28 mg/dL Admazely-Ludwig Murphy eGFR 100 > OR = 60 mL/min/1.7 3m2 Milena [facility]-Ludwig Murphy BUN/creat ratio 25(H) 6 - 22 (calc) [facility] Wis.dm-S summer Murphy Sodium 143 135 - 146 mmol/L Admazely-Ludwig Murphy Potassium, pl 4.6 3.5 - 5.3 mmol/L Admazely-S summer Murphy Chloride 107 98 - 110 mmol/L Admazely-S summer Murphy CO2 28 20 - 32 mmol/L Admazely-S summer Murphy Calcium 9.2 8.6 - 10.3 mg/dL Milena [facility]Ludwig Murphy Blood 04/14/2025 11:3 2 AM CDT 04/14/2025 11:32 AM CDT Narrative [facility] - 04/15/2025 6:35 AM CDT FASTING:YES FASTING: YES Margaret Balderas MD LAB BLOOD ORDERABLES Final R esult Performing Organization Address City/[facility] Co de Phone Number [employer] [facility] [address] [place] [address] * POCT glucose (04/03/2025 8:32 AM CDT) Glucose, POC 152 70 - 199 mg/dL Comment: Interpretive Data Glucose is assumed to be non-fasting. Fasting Glucose reference ranges are: 0 - 150 years: 70 mg/dL - 99 mg/dL Current interpretive data was last revised on 2014. POC Device Number [id number] 1 DAVID VIRGENWCH Blood 04/03/2025 8:32 AM CDT 04/03/2025 8:32 AM CDT us Jenaro Villalobos MD LAB POCT ORDERABLES - DEVICE Final Result Performing Organization Address [facility] de Phone Number [employer] [facility] [address]. [employer] [place], [place] [id number] * (ABNORMAL) POCT glucose (04/02/2025 8:44 PM CDT) Glucose, POC 293(H) 70 - 199 mg/dL Comment: Interpretive Data Glucose is assumed to be non-fasting. Fasting Glucose reference ranges are: 0 - 150 years: 70 mg/dL - 99 mg/dL Current interpretive data was last revised on 2014. POC Device Number [id number] 4 CERNER BJWCH Blood 04/02/2025 8:44 PM CDT 04/02/2025 8:44 PM CDT us Eugenie Garibay MD LAB POCT ORDERABLES - DEVICE Final Result Performing Organization Address [facility] Co de Phone Number [employer] [facility] MaterialsAUR[facility] SNOBSWAPWCH [address]. [facility] [employer] [place], [place] [phone] * POCT glucose (04/02/2025 6:46 PM CDT) Glucose, POC 187 70 - 199 mg/dL Comment: Interpretive Data Glucose is assumed to be non-fasting. Fasting Glucose reference ranges are: 0 - 150 years: 70 mg/dL - 99 mg/dL Current interpretive data was last revised on 2014. POC Device Number [id number] 4 DAVID VIRGENWCH Blood 04/02/2025 6:46 PM CDT 04/02/2025 6:46 PM CDT us Eugenie Garibay MD LAB POCT ORDERABLES - DEVICE Final Result Performing Organization Address [facility] Co de Phone Number DAVID BJWCH [address]. Department [employer] [place], [place] [phone] * POCT glucose (04/02/2025 5:32 PM CDT) Glucose, POC 141 70 - 199 mg/dL Comment: Interpretive Data Glucose is assumed to be non-fasting. Fasting Glucose reference ranges are: 0 - 150 years: 70 mg/dL - 99 mg/dL Current interpretive data was last revised on 2014. POC Device Number [id number] 4 DAVID BJWCH Blood 04/02/2025 5:32 PM CDT 04/02/2025 5:32 PM CDT us Eugenie Garibay MD LAB POCT ORDERABLES - DEVICE Final Result Performing Organization Address [facility] de Phone Number DAVID VIRGENWCH [address] [address] * Lactate (04/02/2025 2:27 PM CDT) Lactate 1.5 0.7 - 2.0 mmol/L Blood 04/02/2025 2:27 PM CDT 04/02/2025 2:31 PM CDT us Radha Thompson NP LAB BLOOD ORDERABLES Final Result Performing Organization Address [facility] Co de Phone Number DAVID VIRGENW [address] [place] [address] * eGFR (04/02/2025 2:27 PM CDT) [facility] eGFR >90 >=60 mL/min/1. 73 m2 Comment: [...] Thompson NP LAB BLOOD ORDERABLES Final Result [facility] [address] [facility]. [place] [address] * (ABNORMAL) Differential, auto (04/02/2025 2:27 PM CDT) Pathologist [facility] Neutrophil abs 3.45 1.50 - 6.50 K/cumm Imm gran abs 0.02 0.00 - 0.10 K/cumm [facility] Lymphocyte abs 0.76(L) 0.80 - 3.30 K/cumm [facility] Monocyte abs 0.45 0.20 - 0.80 K/cumm [facility] Eosinophil abs 0.16 0.00 - 0.50 K/cumm [facility] Basophil abs 0.04 0.00 - 0.10 K/cumm DAVID PEOPLES Neutrophil pct 70.7 % DAVID PEOPLES Comment: Interpretive Data Percent [...] NP LAB BLOOD ORDERABLES Final Result DAVID PEOPLES [address] [facility]. [place] [address] * Pro B-type natriuretic peptide (04/02/2025 2:27 [...] Eur Heart J. 2006:27:330-337. 2. Constantino RW, Alfonso AM. J. AM Anthony Cardiol: Cardiovasc Imag. 2009;2: 216- 225. Interpretive Data Last Revised Date: 2018. Blood 04/02/2025 2:2 7 PM CDT 04/02/2025 2:31 PM CDT Radha Thompson NP LAB BLOOD ORDERABLES Final Result [facility] [address] [facility]. [place] [address] * (ABNORMAL) CBC with auto differential (04/02/2025 2:27 PM CDT) Pathologist [facility] WBC 4.88 3.80 - 9.90 K/cumm Hgb 12.2(L) 13.0 - 17.5 g/dL DAVID PEOPLES Hct 37.1(L) 38.9 - 50.3 % [facility] Plt 170 150 - 400 K/cumm [facility] MPV 10.3 9.1 - 12.3 fL [facility] RBC 4.54 4.30 - 5.80 M/cumm [facility] MCV 81.7 81.3 - 96.4 fL [facility] MCH 26.9(L) 27.1 - 33.3 pg [facility] MCHC 32.9 32.3 - 35.7 g/dL [facility] RDW CV 16.2(H) 11.1 - 14.9 % [facility] RDW SD 48.1 35.7 - 48.1 fL [facility] NRBC abs 0.00 0.00 - 0.01 K/cumm [facility] Blood 04/02/2025 2:27 PM CDT 04/02/2025 2:31 PM CDT Radha Thompson NP LAB BLOOD ORDERABLES Final Result [facility] [address] [facility] Department of Laboratories [place], [place] [id number] * (ABNORMAL) Comprehensive metabolic panel (04/02/2025 2:27 PM CDT) Sodium 133(L) 135 - 145 mmol/L Potassium, pl 3.7 3.3 - 4.9 mmol/L [facility] Chloride 96(L) 97 - 110 mmol/L [facility] CO2 26 22 - 32 mmol/L [facility] Anion gap 11 2 - 15 mmol/L [facility] BUN 18 6 - 25 mg/dL [facility] Creatinine 0.70(L) 0.80 - 1.30 mg/dL [facility] Glucose 198 70 - 199 mg/dL [facility] Comment: Interpretive Data Fasting glucose >/= 126 [...] Albumin 3.5 3.5 - 5.0 g/dL CERNER [facility] Alk phos 646(H) 40 - 130 Units/L CERNER [facility] ALT 52 7 - 55 Units/L CERNER [facility] AST 28 10 - 50 Units/L CERNER [facility] Blood 04/02/2025 2:27 PM CDT 04/02/2025 2:31 PM CDT Radha Thompson NP LAB BLOOD ORDERABLES Final Result Performing Organization Address [facility] Co de Phone Number [facility] [address] [facility] Department [place] [address] * ECG 12 lead (04/02/2025 2:02 PM CDT) 04/02/2025 2:02 PM CDT Narrative [facility] 04/03/2025 4:18 PM CDT Vent Rate: 60 bpm RR Interval: 997 msec ME Interval: 273 msec QRS Duration: 169 msec QT Interval: 475 msec QTC Interval: 475 msec P-R-T [place]: 89 - 234 - 179 degrees IMPRESSION: ELECTRONIC ATRIAL PACEMAKER RIGHT AXIS DEVIATION RIGHT BUNDLE BRANCH BLOCK ABNORMAL ECG Electronically Signed By: Gautam Hope MD Radha Thompson WIRE ROLLER ECG ORDERABLES Tete l Result Performing Organization Address City/[facility]/ZIP Co de Phone Number [facility] [employer] [facility] * XR Chest 1 View (04/02/2025 1:58 [...] it. Electronically signed by: Shabbir Jett M.D. Radha Thompson WIRE ROLLER IMG XR PROCEDURES Fi nal Result * (ABNORMAL) POCT glucose (04/02/2025 11:51 AM CDT) [facility] Signature Glucose, POC 248(H) 70 - 199 mg/dL Comment: Interpretive Data Glucose is assumed to be non-fasting. Fasting Glucose reference ranges are: 0 - 150 years: 70 mg/dL - 99 mg/dL Current interpretive data was last revised on 2014. POC Device Number [id number] DAVID PEOPLES Blood 04/02/2025 11:5 1 AM CDT 04/02/2025 11:51 AM CDT Eugenie Garibay MD LAB POCT ORDERABLES - DEVICE Final Result Performing Organization Address [facility] de Phone Number DAVID [facility] [address] [facility] [place] [address] * (ABNORMAL) POCT glucose (04/02/2025 8:48 AM CDT) Glucose, POC 221(H) 70 - 199 mg/dL Comment: Interpretive Data Glucose is assumed to be non-fasting. Fasting Glucose reference ranges are: 0 - 150 years: 70 mg/dL - 99 mg/dL Current interpretive data was last revised on 2014. POC Device Number [id number] 4 DAVID PEOPLES Blood 04/02/2025 8:48 AM CDT 04/02/2025 8:48 AM CDT Eugenie Garibay MD LAB POCT ORDERABLES - DEVICE Final Result Performing Organization Address [facility] de Phone Number DAVID BJWCH [address] [facility]. [facility] [place] [address] * POCT glucose (04/02/2025 2:02 AM CDT) Glucose, POC 158 70 - 199 mg/dL Comment: Interpretive Data Glucose is assumed to be non-fasting. Fasting Glucose reference ranges are: 0 - 150 years: 70 mg/dL - 99 mg/dL Current interpretive data was last revised on 2014. POC Device Number [id number] 4 [facility] Blood 04/02/2025 2:02 AM CDT 04/02/2025 2:02 AM CDT Eugenie Garibay MD LAB POCT ORDERABLES - DEVICE Final Result Performing Organization Address [facility] Co de Phone Number KRISTENNER BJWCH [address] [facility]. [facility] [place] [address] * POCT glucose (04/02/2025 12:46 AM CDT) Glucose, POC 138 70 - 199 mg/dL Comment: Interpretive Data Glucose is assumed to be non-fasting. Fasting Glucose reference ranges are: 0 - 150 years: 70 mg/dL - 99 mg/dL Current interpretive data was last revised on 2014. POC Device Number [id number] 1 DAVID PEOPLES Blood 04/02/2025 12:4 6 AM CDT 04/02/2025 12:46 AM CDT us Eugenie Garibay MD LAB POCT ORDERABLES - DEVICE Final Result Performing Organization Address [facility] de Phone Number [facility] [address] [facility] [employer] [place], [place] [phone] * POCT glucose (04/01/2025 10:30 PM CDT) Glucose, POC 133 70 - 199 mg/dL Comment: Interpretive Data Glucose is assumed to be non-fasting. Fasting Glucose reference ranges are: 0 - 150 years: 70 mg/dL - 99 mg/dL Current interpretive data was last revised on 2014. POC Device Number [id number] 1 DAVID PEOPLES Blood 04/01/2025 10:3 0 PM CDT 04/01/2025 10:30 PM CDT us Eugenie Garibay MD LAB POCT ORDERABLES - DEVICE Final Result Performing Organization Address [facility] de Phone Number [facility] [address] [facility] [employer] [place], [place] [phone] * POCT glucose (04/01/2025 7:30 PM CDT) Glucose, POC 183 70 - 199 mg/dL Comment: Interpretive Data Glucose is assumed to be non-fasting. Fasting Glucose reference ranges are: 0 - 150 years: 70 mg/dL - 99 mg/dL Current interpretive data was last revised on 2014. POC Device Number [id number] 4 DAVID PEOPLES Blood 04/01/2025 7:30 PM CDT 04/01/2025 7:30 PM CDT Eugenie Garibay MD LAB POCT ORDERABLES - DEVICE Final Result Performing Organization Address [facility] de Phone Number [facility] [address] [place] [address] * (ABNORMAL) POCT glucose (04/01/2025 6:29 PM CDT) Glucose, POC 405(H) 70 - 199 mg/dL Comment: Interpretive Data Glucose is assumed to be non-fasting. Fasting Glucose reference ranges are: 0 - 150 years: 70 mg/dL - 99 mg/dL Current interpretive data was last revised on 2014. POC Device Number [id number] 4 DAVID PEOPLES Blood 04/01/2025 6:29 PM CDT 04/01/2025 6:29 PM CDT Eugenie Garibay MD LAB POCT ORDERABLES - DEVICE Final Result Performing Organization Address [facility] - [place] de Phone Number [facility] [address] [place] [address] * (ABNORMAL) POCT glucose (04/01/2025 4:41 PM CDT) Glucose, POC 313(H) 70 - 199 mg/dL Comment: Interpretive Data Glucose is assumed to be non-fasting. Fasting Glucose reference ranges are: 0 - 150 years: 70 mg/dL - 99 mg/dL Current interpretive data was last revised on 2014. POC Device Number [id number] DAVID PEOPLES Blood 04/01/2025 4:41 PM CDT 04/01/2025 4:41 PM CDT Eugenie Garibay MD LAB POCT ORDERABLES - DEVICE Final Result Performing Organization Address [facility] de Phone Number DAVID VIRGENCH [address] [facility]. [facility] [place] [address] * POCT glucose (04/01/2025 11:32 AM CDT) Glucose, POC 164 70 - 199 mg/dL Comment: Interpretive Data Glucose is assumed to be non-fasting. Fasting Glucose reference ranges are: 0 - 150 years: 70 mg/dL - 99 mg/dL Current interpretive data was last revised on 2014. POC Device Number [id number] CERPETAR VIRGENWROSSANA Blood 04/01/2025 11:3 2 AM CDT 04/01/2025 11:32 AM CDT us Eugenie Garibay MD LAB POCT ORDERABLES - DEVICE Final Result Performing Organization Address [facility] [place] de Phone Number DAVID VIRGENCH [address] [facility]. [facility] [place] [address] * POCT glucose (04/01/2025 7:52 AM CDT) Glucose, POC 187 70 - 199 mg/dL Comment: Interpretive Data Glucose is assumed to be non-fasting. Fasting Glucose reference ranges are: 0 - 150 years: 70 mg/dL - 99 mg/dL Current interpretive data was last revised on 2014. POC Device Number [id number] 1 DAVID VIRGENWROSSANA Blood 04/01/2025 7:52 AM CDT 04/01/2025 7:52 AM CDT us Eugenie Garibay MD LAB POCT ORDERABLES - DEVICE Final Result Performing Organization Address [facility] de Phone Number DAVID VIRGENCH [address] [facility]. [facility] [place] [address] * (ABNORMAL) POCT glucose (03/31/2025 10:21 PM CDT) Glucose, POC 234(H) 70 - 199 mg/dL Comment: Interpretive Data Glucose is assumed to be non-fasting. Fasting Glucose reference ranges are: 0 - 150 years: 70 mg/dL - 99 mg/dL Current interpretive data was last revised on 2014. POC Device Number [id number] 1 DAVID [facility] Blood 03/31/2025 10:2 1 PM CDT 03/31/2025 10:21 PM CDT us Neeru Funk MD LAB POCT ORDERABLES - DEVICE Final Result DAVID VIRGENWCH [address] [facility] [place] [address] * CT Lumbar Spine WO Contrast (03/31/2025 [...] it. Electronically signed by: Jay Alexis MD Ivanna WAYNE [facility] CT PROCEDURES Final Res ult * CT [...] it. Electronically signed by: Jay Alexis MD Ivanna WAYNE IMLai CT PROCEDURES Final Res ult * XR [...] signed by: Shabbir Jett M.D. Ivanna WAYNE IMG XR PROCEDURES Final Res ult * Urinalysis reflex to microscopic and culture Urine (03/31/2025 5:22 PM CDT) Color, ur Straw Yellow Clarity, ur Clear Clear CERNER [facility] Specific gravity, ur 1.008 1.003 - 1.030 DAVID [facility] pH, urine 6.0 DAVID VIRGENWROSSANA Comment: Interpretive Data U rine pH is affected by diet, medications, systemic acid-base disturbances, and renal tubular function. pH may affect urinary stone formation. For example, urine pH below 6.0 may help reduce the tendency for calcium phosphate stones and pH greater than 6.0 may reduce the tendency for uric acid stone formation. Source: [facility] Current Interpretive Data was last revised [...] and culture not met. CERPETAR [facility] Urine 03/31/2025 5:22 PM CDT 03/31/2025 5:26 PM CDT us Ivanna WAYNE LAB MICROBIOLOGY - GENERAL ORDERABLES Final Result DAVID SWEENEY [address] [facility] [place] [address] * Influenza A/B, RSV, and COVID-19 PCR Nasopharyngeal (03/31/2025 3:04 PM CDT) COVID-19 RNA Negative Negative Influenza A RNA Negative Negative [facility]ER [facility] Influenza B RNA Negative Negative [facility]ER [facility] RSV RNA Negative Negative CERNER [facility] Comment: Testing performed by [facility]. This test is performed using the [employer] Xpert Xpress CoV-2/Flu/RSV plus assay. This is a multiplex, real-time reverse transcriptase PCR assay intended for the qualitative detection of nucleic acid from SARS-CoV-2, influenza A, influenza B, and respiratory syncytial virus. This assay has been cleared by the [place] Food and Drug administration. The performance characteristics have been verified by the [facility]. Results must be considered in the clinical context, and a negative result does not rule out infection. Interpretive Data last revised 2023 Nasopharyngeal 03/31/2025 3: 04 PM CDT 03/31/2025 3:08 PM CDT Narrative CERNER [facility] - 03/31/2025 3:55 PM CDT Is the Patient experiencing symptoms consistent with COVID?->Yes Ivanna WAYNE LAB MICROBIOLOGY - GENERAL ORDERABLES Final Result Performing Organization Address [facility] Co de Phone Number DAVID SWEENEYCH [address] [address] [facility] [employer] [place], [place] [id number] * eGFR (03/31/2025 3:04 PM CDT) eGFR [...] BLOOD ORDERABLES Final Result Performing Organization Address City/[facility]/ZIP Co de Phone Number DAVID SWEENEYCH [address] [employer] [address] [place], [place] [id number] * (ABNORMAL) Differential, auto (03/31/2025 3:04 PM CDT) Neutrophil abs 6.81(H) 1.50 - 6.50 K/cumm Imm gran abs 0.04 0.00 - 0.10 K/cumm [facility] Lymphocyte abs 0.81 0.80 - 3.30 K/cumm [facility] Monocyte abs 0.93(H) 0.20 - 0.80 K/cumm [facility] Eosinophil abs 0.12 0.00 - 0.50 K/cumm [facility] Basophil abs 0.03 0.00 - 0.10 K/cumm [facility] Neutrophil pct 77.9 % DAVID [facility] Comment: Interpretive Data Percent cell count reference ranges are not reported, since discordance with absolute values may lead to misinterpretation of CBC data. Current Interpretive Data was last revised on 2017. Imm gran pct 0.5 % DAVID [facility] Comment: Interpretive Data Percent cell count reference ranges are not reported, since discordance with absolute values may lead to misinterpretation of CBC data. Current Interpretive Data was last revised on 2017. Lymphocyte pct 9.3 % DAVID [facility] Comment: Interpretive Data Percent cell count reference ranges are not reported, since discordance with absolute values may lead to misinterpretation of CBC data. Current Interpretive Data was last revised on 2017. Monocyte pct 10.6 % DAVID [facility] Comment: Interpretive Data Percent cell count reference ranges are not reported, since discordance with absolute values may lead to misinterpretation of CBC data. Current Interpretive Data was last revised on 2017. Eosinophil pct 1.4 % DAVID [facility] Comment: Interpretive Data Percent cell count reference ranges are not reported, since discordance with absolute values may lead to misinterpretation of CBC data. Current Interpretive Data was last revised on 2017. Basophil pct 0.3 % DAVID [facility] Comment: Interpretive Data Percent cell count reference ranges are not reported, since discordance with absolute values may lead to misinterpretation of CBC data. Current Interpretive Data was last revised on 2017. Blood 03/31/2025 3:04 PM CDT 03/31/2025 3:08 PM CDT us Ivanna WAYNE LAB BLOOD ORDERABLES Final Result DAVID SWEENEYCH [address] [address] [facility]. [place] [address] * (ABNORMAL) CBC with auto differential (03/31/2025 3:04 PM CDT) WBC 8.74 3.80 - 9.90 K/cumm Hgb 12.2(L) 13.0 - 17.5 g/dL [facility] Hct 38.4(L) 38.9 - 50.3 % [facility] Plt 199 150 - 400 K/cumm [facility] MPV 11.1 9.1 - 12.3 fL [facility] RBC 4.57 4.30 - 5.80 M/cumm [facility] MCV 84.0 81.3 - 96.4 fL [facility] MCH 26.7(L) 27.1 - 33.3 pg [facility] MCHC 31.8(L) 32.3 - 35.7 g/dL [facility] RDW CV 16.6(H) 11.1 - 14.9 % [facility] RDW SD 50.6(H) 35.7 - 48.1 fL [facility] NRBC abs 0.00 0.00 - 0.01 K/cumm [facility] Blood Venous blood specimen / Unknown 03/31/2025 3:04 PM CDT 03/31/2025 3:08 PM CDT Ivanna WAYNE LAB BLOOD ORDERABLES Final Result DAVID SWEENEYCH [address] [address] [facility]. [place] [address] * (ABNORMAL) Hemoglobin A1c (03/31/2025 3:04 PM CDT) Pathologist [facility] Hgb A1C 8.2(H) 4.0 - 5.6 % Estimated Average Glucose 189 mg/dL [facility] Comment: The ADA recommends reporting an estimated Average Glucose (eAG) with all Hemoglobin A1c results using the equation derived from a study of 507 normal and diabetic adults. Minority populations were underrepresented and children were not included. (Diabetes Care 31:5368-1894, 2007). The eAG is not equivalent to a fasting glucose. Blood 03/31/2025 3:04 PM CDT 03/31/2025 3:08 PM CDT us Eugenie Garibay MD LAB BLOOD ORDERABLES Final R esult [facility] [id number] [facility]. [place] [address] * (ABNORMAL) Comprehensive metabolic panel (03/31/2025 3:04 [...] AST 39 10 - 50 Units/L CERNER PARAMWCH Blood 03/31/2025 3:04 PM CDT 03/31/2025 3:08 PM CDT us Ivanna WAYNE LAB BLOOD ORDERABLES Final Result Performing Organization Address [facility] de Phone Number [facility] BJWCH [address] [facility] [place] [address] * (ABNORMAL) POCT glucose (03/05/2025 12:14 PM CDT) Glucose, POC 386(H) 70 - 199 mg/dL Comment: Interpretive Data Glucose is assumed to be non-fasting. Fasting Glucose reference ranges are: 0 - 150 years: 70 mg/dL - 99 mg/dL Current interpretive data was last revised on 2014. POC Device Number [id number] KRISTENNER PARAMWCH Blood 03/05/2025 12:1 4 PM CDT 03/05/2025 12:14 PM CDT Jae Dave MD LAB POCT ORDERABLES - DEVICE Fin al Result Performing Organization Address [facility] de Phone Number [facility] [address] [facility] [place] [address] * POCT glucose (03/05/2025 8:54 AM CDT) Glucose, POC 146 70 - 199 mg/dL Comment: Interpretive Data Glucose is assumed to be non-fasting. Fasting Glucose reference ranges are: 0 - 150 years: 70 mg/dL - 99 mg/dL Current interpretive data was last revised on 2014. POC Device Number [id number] 1 CERNER PARAMWCH Blood 03/05/2025 8:54 AM CDT 03/05/2025 8:54 AM CDT Jae Dave MD LAB POCT ORDERABLES - DEVICE Fin al Result DAVID [facility] [address] [address] [place] [address] * US LEONOR (03/05/2025 5:37 AM CDT) [...] signed by: Shabbir Jett M.D. Bianka WAYNE [facility] US PROCEDURES Final Result * eGFR (03/05/2025 [...] LAB BLOOD ORDERABLES Final Result DAVID VIRGENWCH [address] [facility]. [place] [address] * (ABNORMAL) Differential, auto (03/05/2025 3:59 AM CDT) Neutrophil abs 2.27 1.50 - 6.50 K/cumm Imm gran abs 0.01 0.00 - 0.10 K/cumm [facility]ER [facility] Lymphocyte abs 0.67(L) 0.80 - 3.30 K/cumm [facility] Monocyte abs 0.49 0.20 - 0.80 K/cumm DAVID [facility] Eosinophil abs 0.30 0.00 - 0.50 K/cumm [facility] Basophil abs 0.02 0.00 - 0.10 K/cumm DAVID [facility] Neutrophil pct 60.4 % [facility] Comment: Interpretive Data Percent cell count reference ranges are not reported, since discordance with absolute values may lead to misinterpretation of CBC data. Current Interpretive Data was last revised on 2017. Imm gran pct 0.3 % [facility]ID [facility] Comment: Interpretive Data Percent cell count reference ranges are not reported, since discordance with absolute values may lead to misinterpretation of CBC data. Current Interpretive Data was last revised on 2017. Lymphocyte pct 17.8 % DAVID [facility] Comment: Interpretive Data Percent cell count reference ranges are not reported, since discordance with absolute values may lead to misinterpretation of CBC data. Current Interpretive Data was last revised on 2017. Monocyte pct 13.0 % [facility]ID [facility] Comment: Interpretive Data Percent cell count reference ranges are not reported, since discordance with absolute values may lead to misinterpretation of CBC data. Current Interpretive Data was last revised on 2017. Eosinophil pct 8.0 % [facility] Comment: Interpretive Data Percent cell count reference ranges are not reported, since discordance with absolute values may lead to misinterpretation of CBC data. Current Interpretive Data was last revised on 2017. Basophil pct 0.5 % [facility] Comment: Interpretive Data Percent cell count reference ranges are not reported, since discordance with absolute values may lead to misinterpretation of CBC data. Current Interpretive Data was last revised on 2017. Blood 03/05/2025 3:59 AM CDT 03/05/2025 4:03 AM CDT Rosa Camp MD LAB BLOOD ORDERABLES Final Result DAVID VIRGENWCH [address] [facility]. [facility] [place] [address] * (ABNORMAL) CBC with auto differential (03/05/2025 3:59 AM CDT) WBC 3.76(L) 3.80 - 9.90 K/cumm Hgb 10.4(L) 13.0 - 17.5 g/dL [facility] Hct 32.9(L) 38.9 - 50.3 % CERNER [facility] Plt 118(L) 150 - 400 K/cumm [facility]ER [facility] MPV 10.4 9.1 - 12.3 fL [facility] RBC 3.99(L) 4.30 - 5.80 M/cumm CERNER BJW MCV 82.5 81.3 - 96.4 fL CERNER BJW MCH 26.1(L) 27.1 - 33.3 pg CERNER W MCHC 31.6(L) 32.3 - 35.7 g/dL [facility] RDW CV 16.2(H) 11.1 - 14.9 % [facility] RDW SD 49.4(H) 35.7 - 48.1 fL [facility] NRBC abs 0.00 0.00 - 0.01 K/cumm [facility] Blood 03/05/2025 3:59 AM CDT 03/05/2025 4:03 AM CDT Rosa Camp MD LAB BLOOD ORDERABLES Final Result [facility]ID [facility] [address] [facility] Department of [place], [place] [id number] * (ABNORMAL) Comprehensive metabolic panel (03/05/2025 3:59 AM CDT) Pathologist [facility] Sodium 140 135 - 145 mmol/L Potassium, pl 3.9 3.3 - 4.9 mmol/L CERNER BJW Chloride 106 97 - 110 mmol/L [facility]ER [facility] CO2 24 22 - 32 mmol/L [facility] Anion gap 10 2 - 15 mmol/L [facility] BUN 14 6 - 25 mg/dL [facility] Creatinine 0.70(L) 0.80 - 1.30 mg/dL C[facility]ER [facility] Glucose 206(H) 70 - 199 mg/dL C[facility]ER [facility] Comment: [...] LAB BLOOD ORDERABLES Final Result DAVID VIRGENWCH [address] [facility] Department [place] [address] * (ABNORMAL) POCT glucose (03/04/2025 8:41 PM CDT) [facility] Glucose, POC 299(H) 70 - 199 mg/dL Comment: Interpretive Data Glucose is assumed to be non-fasting. Fasting Glucose reference ranges are: 0 - 150 years: 70 mg/dL - 99 mg/dL Current interpretive data was last revised on 2014. POC Device Number [id number] CERNER [facility] Blood 03/04/2025 8:41 PM CDT 03/04/2025 8:41 PM CDT us Jae Dave MD LAB POCT ORDERABLES - DEVICE Fin al Result Performing Organization Address [facility] Phone Number DAVID [facility] [address] [place] [address] * POCT glucose (03/04/2025 4:42 PM CDT) Glucose, POC 191 70 - 199 mg/dL Comment: Interpretive Data Glucose is assumed to be non-fasting. Fasting Glucose reference ranges are: 0 - 150 years: 70 mg/dL - 99 mg/dL Current interpretive data was last revised on 2014. POC Device Number [id number] 4 DAVID PEOPLES Blood 03/04/2025 4:42 PM CDT 03/04/2025 4:42 PM CDT us Jae Dave MD LAB POCT ORDERABLES - DEVICE Fin al Result Performing Organization Address [facility] Phone Number [facility] [address] [place] [address] * (ABNORMAL) POCT glucose (03/04/2025 12:22 PM CDT) Glucose, POC 216(H) 70 - 199 mg/dL Comment: Interpretive Data Glucose is assumed to be non-fasting. Fasting Glucose reference ranges are: 0 - 150 years: 70 mg/dL - 99 mg/dL Current interpretive data was last revised on 2014. POC Device Number [id number] DAVID PEOPLES Glucose comment 1 RN/MD Notified DAVID PEOPLES Blood 03/04/2025 12:2 2 PM CDT 03/04/2025 12:22 PM CDT us Jae Dave MD LAB POCT ORDERABLES - DEVICE Fin al Result Performing Organization Address [facility] de Phone Number DAVID [facility] [address] [facility] [place] [address] * POCT glucose (03/04/2025 7:57 AM CDT) Glucose, POC 150 70 - 199 mg/dL Comment: Interpretive Data Glucose is assumed to be non-fasting. Fasting Glucose reference ranges are: 0 - 150 years: 70 mg/dL - 99 mg/dL Current interpretive data was last revised on 2014. POC Device Number [id number] 4 DAVID [facility] Blood 03/04/2025 7:57 AM CDT 03/04/2025 7:57 AM CDT Jae Dave MD LAB POCT ORDERABLES - DEVICE Fin al Result Performing Organization Address [facility] de Phone Number DAVID [facility] [address] [facility] [place] [address] * eGFR (03/04/2025 5:05 AM CDT) eGFR [...] LAB BLOOD ORDERABLES Final Result DAVID PEOPLES [address] [facility]. [place] [address] * (ABNORMAL) Differential, auto (03/04/2025 5:05 AM CDT) Neutrophil abs 2.32 1.50 - 6.50 K/cumm Imm gran abs 0.01 0.00 - 0.10 K/cumm [facility] Lymphocyte abs 0.56(L) 0.80 - 3.30 K/cumm [facility] Monocyte abs 0.50 0.20 - 0.80 K/cumm [facility] Eosinophil abs 0.32 0.00 - 0.50 K/cumm [facility] Basophil abs 0.01 0.00 - 0.10 K/cumm [facility] Neutrophil pct 62.3 % DAVID PEOPLES Comment: Interpretive Data Percent cell count reference ranges are not reported, since discordance with absolute values may lead to misinterpretation of CBC data. Current Interpretive Data was last revised on 2017. Imm gran pct 0.3 % DAVID SWEENEY Comment: Interpretive Data Percent cell count reference ranges are not reported, since discordance with absolute values may lead to misinterpretation of CBC data. Current Interpretive Data was last revised on 2017. Lymphocyte pct 15.1 % DAVID PEOPLES Comment: Interpretive Data Percent [...] on 2017. Eosinophil pct 8.6 % DAVID SWEENEY Comment: Interpretive Data Percent cell count reference ranges are not reported, since discordance with absolute values may lead to misinterpretation of CBC data. Current Interpretive Data was last revised on 2017. Basophil pct 0.3 % CERNER [facility] Comment: Interpretive Data Percent cell count reference ranges are not reported, since discordance with absolute values may lead to misinterpretation of CBC data. Current Interpretive Data was last revised on 2017. Blood 03/04/2025 5:05 AM CDT 03/04/2025 5:14 AM CDT Rosa Camp MD LAB BLOOD ORDERABLES Final Result [facility] [address] [facility]. [facility] [place], [place] [id number] * (ABNORMAL) CBC with auto differential (03/04/2025 5:05 AM CDT) WBC 3.72(L) 3.80 - 9.90 K/cumm Hgb 10.5(L) 13.0 - 17.5 g/dL [facility] Hct 34.4(L) 38.9 - 50.3 % [facility] Plt 113(L) 150 - 400 K/cumm [facility] W MPV 10.7 9.1 - 12.3 fL [facility] W RBC 4.11(L) 4.30 - 5.80 M/cumm [facility] MCV 83.7 81.3 - 96.4 fL [facility] MCH 25.5(L) 27.1 - 33.3 pg [facility] W MCHC 30.5(L) 32.3 - 35.7 g/dL [facility] RDW CV 16.7(H) 11.1 - 14.9 % [facility] RDW SD 51.2(H) 35.7 - 48.1 fL [facility] NRBC abs 0.00 0.00 - 0.01 K/cumm [facility] Blood 03/04/2025 5:05 AM CDT 03/04/2025 5:14 AM CDT us Rosa Camp MD LAB BLOOD ORDERABLES Final Result [facility] [address] [facility]. [place] [address] * (ABNORMAL) Comprehensive metabolic panel (03/04/2025 5:05 [...] BLOOD ORDERABLES Final Result Performing Organization Address [facility] Co de Phone Number DAVID VIRGENCH [address] [facility] [address] * (ABNORMAL) POCT glucose (03/03/2025 8:51 PM CDT) Glucose, POC 211(H) 70 - 199 mg/dL Comment: Interpretive Data Glucose is assumed to be non-fasting. Fasting Glucose reference ranges are: 0 - 150 years: 70 mg/dL - 99 mg/dL Current interpretive data was last revised on 2014. POC Device Number [id number] 4 DAVID VIRGENWCH Blood 03/03/2025 8:51 PM CDT 03/03/2025 8:51 PM CDT Jae Dave MD LAB POCT ORDERABLES - DEVICE Fin al Result Performing Organization Address [facility] de Phone Number DAVID BJW[facility] [address] [facility] [place] [address] * POCT glucose (03/03/2025 5:12 PM CDT) Glucose, POC 168 70 - 199 mg/dL Comment: Interpretive Data Glucose is assumed to be non-fasting. Fasting Glucose reference ranges are: 0 - 150 years: 70 mg/dL - 99 mg/dL Current interpretive data was last revised on 2014. POC Device Number [id number] 4 DAVID [facility] Blood 03/03/2025 5:12 PM CDT 03/03/2025 5:12 PM CDT Jae Dave MD LAB POCT ORDERABLES - DEVICE Fin al Result Performing Organization Address [facility] Co de Phone Number [facility] [address] [facility]. [place] [address] * Histoplasma Antigen Urine (03/03/2025 3:18 PM CDT) Pathologist [facility] Histo/Blasto Ag Value Not Detected ng/mL [facility] Comment: ADDITIONAL INFORMATION This test was developed and its performance characteristics determined by [facility] in a manner consistent with CLIA requirements. This test has not been cleared or approved by the U.S. Food and Drug Administration. Test Performed by: [facility] [address] [place] [address] Supervisor [place]: Ana Plascencia Ph.D.; CLIA# [id number] Histo/Blasto Ag Result Not Detected Not Detected DAVID [facility] Comment: No antigen from Histoplasma or Blastomyces detected. False negative results may occur depending on extent of disease, and/or site of infection. Repeat testing on a new specimen if clinically indicated. Urine 03/03/2025 3:18 PM CDT 03/03/2025 3:35 PM CDT Bianka WAYNE LAB MICROBIOLOGY - GENERAL ORDERABLES Final Result DAVID VIRGENWCH [address] [facility]. [place] [address] [facility] * Q fever ab w rflx to immunofluorescence Blood (03/03/2025 3:04 PM CDT) Pathologist [facility] Q fever ab scrn w titer rflx ser Negative Negative [place] [facility] Comment: No antibodies to Q Fever (Coxiella burnetii) detected. Repeat testing on a new sample collected in 2-3 weeks if acute Q Fever is suspected. ADDITIONAL INFORMATION This test was developed and its performance characteristics determined by [facility] in a manner consistent with CLIA requirements. This test has not been cleared or approved by the U.S. Food and Drug Administration. Test Performed by: [place] [address] Supervisor [place]: Ana Plascencia Ph.D.; CLIA# [id number] Blood 03/03/2025 3:04 PM CDT 03/03/2025 3:22 PM CDT Bianka WAYNE LAB MICROBIOLOGY - GENERAL ORDERABLES Final Result Performing Organization Address [facility] de Phone Number [facility]ID [facility] [address] [facility]OUR[facility] [place] [address] [place] [facility] * (ABNORMAL) Histoplasma Antibody Blood (03/03/2025 3:04 PM CDT) Pathologist [facility] Histoplasma Ab, yeast CF 1:16(A) Negative [place] [facility] Histoplasma Ab, Immunodiffusion Negative Negative [facility] Comment: Test Performed by: [place] [address] Supervisor [employer] Yard: Ana Plascencia Ph.D.; CLIA# [id number] Blood 03/03/2025 3:04 PM CDT 03/03/2025 3:22 PM CDT Bianka WAYNE LAB MICROBIOLOGY - GENERAL ORDERABLES Final Result Performing Organization Address [facility] de Phone Number [facility] BJWCH [address] [place] [address] [place] [facility] * Cytomegalovirus (CMV) DNA PCR, quantitative Blood (03/03/2025 3:04 PM CDT) Pathologist [facility] CMV DNA Not Detected [facility] Comment: Interpretive Data: The quantifiable range of this assay is 34 IUnits/mL to 10,000,000 IUnits/mL (1.53 log IUnits/mL to 7.0 log IUnits/mL). Testing was performed by the BRENNA 6800 CMV Test ([employer] Testing performed at [facility]. Current interpretive data was last revised on 2021. Testing performed by: [facility], [address] [place]., [address] Blood 03/03/2025 3:04 PM CDT 03/03/2025 7:06 PM CDT Bianka WAYNE LAB MICROBIOLOGY - GENERAL ORDERABLES Final Result [facility] [address] [facility]. [place] [address] [facility] * Hepatitis panel, acute Blood (03/03/2025 3:04 PM CDT) Hep A IgM Nonreactive Nonreactive Comment: Interpretive Data: If Hep A IgM Ab is reported as Equivocal, a new sample should be drawn in two weeks for testing. Current interpretive data was last revised on 19. Testing performed by: [facility], [address] [place] [address]., [id number] Hep B core IgM Nonreactive Nonreactive [facility] Comment: Interpretive Data If HepB Core IgM Ab is reported as Equivocal, a new sample should be drawn in two weeks for testing. Current interpretive data was last revised on 19. Testing performed by: [facility], [address] [place] [address]., [id number] Hep C Ab Nonreactive Nonreactive DAVID SWEENEY [...] revised on 2019. Testing performed by: [facility], [address] [place] [address]., [id number] HepBsAg Nonreactive Nonreactive [facility] Comment:Testing performed by : [facility], [address] [place] [address]., [id number] Blood 03/03/2025 3:04 PM CDT 03/03/2025 5:07 PM CDT Bianka WAYNE LAB MICROBIOLOGY - GENERAL ORDERABLES Final Result Performing Organization Address City/[facility]/ZIP Co de Phone Number DAVID SWEENEYCH [address] [facility]. [facility] [place] [address] * Blood culture Blood (03/03/2025 3:04 PM CDT) Report Final Report: No growth Comment:Testing performed by : [facility], [address] [place] [address]., [id number] Blood 03/03/2025 3:0 4 PM CDT 03/03/2025 4:44 PM CDT Narrative DAVID SWEENEYCH - 03/09/2025 7:00 AM CDT Collection->Peripheral [...] organism identification may be performed using the MCH+ Blood Culture Identification panel. This assay detects microbial DNA in a blood culture broth. This assay has been cleared by the [place] Food and Drug Administration and its performance characteristics have been verified by the [facility]. Interpretive data was last revised on August 03, 2022. Bianka WAYNE LAB MICROBIOLOGY - GENERAL ORDERABLES Final Result Performing Organization Address City/[facility]/ZIP Co de Phone Number DAVID BJW[facility] [address] [place] [facility]. [facility] [place] [address] * Cindy-Zaman Virus (EBV) DNA Quantitative Blood (03/03/2025 3:03 PM CDT) EBV DNA Result Not Detected [facility] Comment: Interpretive Data The quantifiable range of this assay is 35 IUnits/mL to 100,000,000 IUnits/mL (1.54 log IUnits/mL to 8.0 log IUnits/mL). Testing was performed by the BRENNA 6800 EBV Test ([employer] Testing performed at [facility]. Current interpretive data was last revised on 2022. Testing performed by: [facility], [address] [place] [address]., [id number] Blood 03/03/2025 3:03 PM CDT 03/03/2025 7:05 PM CDT Bianka WAYNE LAB MICROBIOLOGY - GENERAL ORDERABLES Final Result [facility] [address] [place] [address] [facility] * Ehrlichia and Anaplasma PCR Blood (03/03/2025 3:03 PM CDT) Pathologist [facility] Ehrlichia species DNA Not Detected Not Detected [facility] Comment:Testing performed by : [facility], [address] [place] [address]., [id number] Anaplasma Phagocytophilum DNA Not Detected Not Detected [facility] SWEENEYCH Comment: This assay tests for the presence of Anaplasma phagocytophilum, Ehrlichia chaffeensis, Ehrlichia ewingii and Ehrlichia canis. This test is laboratory developed and its performance characteristics were determined by the performing laboratory in a manner consistent with CLIA requirements. This test has not been cleared or approved by the U.S. Food and Drug Administration. Testing performed by: [facility], [address] [place] [address]., [id number] Blood 03/03/2025 3:03 PM CDT 03/03/2025 7:05 PM CDT Bianka WAYNE LAB MICROBIOLOGY - GENERAL ORDERABLES Final Result Performing Organization Address [facility] de Phone Number DAVID [facility] [address] [facility] [place] [address] BJ * Blastomyces antibody, EIA, serum Blood (03/03/2025 3:00 PM CDT) [facility] Blastomyces Antibody Negative Negative [place] [facility] Comment: A single negative result does not exclude the diagnosis of blastomycosis. Repeat testing on a new sample in 7-14 days if clinically indicated. Test Performed by: [place] [address] Supervisor [employer]: Ana Plascencia Ph.D.; CLIA# [id number] Blood 03/03/2025 3:00 PM CDT 03/03/2025 3:22 PM CDT Bianka WAYNE LAB MICROBIOLOGY - GENERAL ORDERABLES Final Result Performing Organization Address [facility] de Phone Number DAVID B[facility] [address] [employer] [place] [address] [facility] * (ABNORMAL) Rickettsia rickettsii antibodies Blood (03/03/2025 3:00 PM CDT) [facility] Spotted Fever Group Antibody, IgG 1:64(A) <1:64 [place] [facility] Comment: Single IgG serum endpoint [...] Fever Group Antibody, IgM <1:64 <1:64 DAVID [facility] Comment: No antibody detected. Test Performed by: [place] [address] Supervisor [employer]: Ana Plascencia Ph.D.; CLIA# [id number] Blood 03/03/2025 3:00 PM CDT 03/03/2025 3:57 PM CDT Bianka WAYNE LAB MICROBIOLOGY - GENERAL ORDERABLES Final Result Performing Organization Address City/[facility] Co de Phone Number DAVID BJW[facility] [address] [place] [facility]. [place] [address] [place] [facility] * HIV 1/2 Antibody plus p24 Antigen Blood (03/03/2025 3:00 PM CDT) Pathologist [facility] HIV 1/2 ab + p24 ag Nonreactive Nonreactive Comment: Nonreactive for HIV-1 antigen and HIV-1/HIV-2 antibodies. No laboratory evidence of HIV infection. If acute HIV infection is suspected, consider testing for HIV-1 RNA. Testing performed by: [facility], [address] [place] [address]., [id number] Blood 03/03/2025 3:00 PM CDT 03/03/2025 5:07 PM CDT Bianka WAYNE LAB MICROBIOLOGY - GENERAL ORDERABLES Final Result Performing Organization Address [facility] Co de Phone Number DAVID VIRGENWCH [address] [employer]. [facility] [place] [address] * (ABNORMAL) Cindy-Zaman virus (EBV) antibody panel Blood (03/03/2025 3:00 PM CDT) [facility] EBV nuclear Ab Positive(A) Negative Comment: Indicates the presence of detectable IgG antibody to EBV Nuclear Antigen. Testing performed by: [facility], [address] [place] [address]., [id number] EBV VCA IgG Positive(A) Negative DAVID PEOPLES Comment: Indicates the presence of antibody; 90% of the adult population will have been infected with EBV sometime in the past. Testing performed by: [facility], [address] [place] [address]., [id number] EBV VCA IgM Negative Negative DAVID PEOPLES Comment: No detectable IgM antibody to EBV-VCA. A negative result indicates no current infection with EBV. If clinical suspicion of acute EBV infection is present, testing should be repeated after one week. Testing performed by: [facility], [address] [place]., [address] EBV interp Past Infection DAVID PEOPLES Comment:Testing performed by : [facility], [address] [place]., [address] Blood 03/03/2025 3:00 PM CDT 03/03/2025 6:55 PM CDT Bianka WAYNE LAB MICROBIOLOGY - GENERAL ORDERABLES Final Result Performing Organization Address City/[facility] Co de Phone Number DAVID VIRGENIKE [address] [facility] [place] [address] * Bartonella antibody panel Blood (03/03/2025 3:00 PM CDT) [facility] B Henselae, IgG <1:128 <1:128 titer [facility] Lab B Henselae, IgM <1:20 <1:20 titer DAVID PEOPLES B. Orellana, IgG <1:128 <1:128 titer DAVID VIRGENWCH B. Orellana, IgM <1:20 <1:20 titer [facility] Comment: ADDITIONAL INFORMATION This test was developed and its performance characteristics determined by [facility] in a manner consistent with CLIA requirements. This test has not been cleared or approved by the U.S. Food and Drug Administration. Test Performed by: [facility] [place] [address] Supervisor [employer]: Ana Plascencia Ph.D.; CLIA# [id number] Blood 03/03/2025 3:00 PM CDT 03/03/2025 3:22 PM CDT Bianka WAYNE LAB MICROBIOLOGY - GENERAL ORDERABLES Final Result DAV[facility] [address] [facility] [place] [address] [place] [facility] * Cryptococcal Antigen, Serum Blood (03/03/2025 3:00 PM CDT) Cryptococcus ag, Serum Negative Negative Comment:Testing performed by : [facility], [address] [place] [address]., [id number] Blood 03/03/2025 3:00 PM CDT 03/03/2025 5:44 PM CDT Bianka WAYNE LAB MICROBIOLOGY - GENERAL ORDERABLES Final Result Performing Organization Address [facility] de Phone Number DAVID VIRGENWCH [address] [address] [facility]. [facility] [place] [address] * Blood culture Blood (03/03/2025 3:00 PM CDT) Report Final Report: No growth Comment:Testing performed by : [facility], [address] [place] [address]., [id number] Blood 03/03/2025 3:00 PM CDT 03/03/2025 4:44 [...] organism identification may be performed using the MCH+ Blood Culture Identification panel. This assay detects microbial DNA in a blood culture broth. This assay has been cleared by the [place] Food and Drug Administration and its performance characteristics have been verified by the [facility]. Interpretive data was last revised on August 03, 2022. Christopher Isaias Mclaughlin PA LAB MICROBIOLOGY - GENERAL ORDERABLES Final Result DAVID B[facility]WCH [address] [facility]. [place] [address] * TRANSTHORACIC ECHO (TTE) COMPLETE W DOPPLER/CF W CONTRAST (03/03/2025 2:21 PM CDT) EF Mod BP 70 % CONS SCIMAGE Anatomical Region Laterality Modality Ultrasound 03/03/2025 1:38 PM CDT Narrative 03/03/2025 3:58 PM CDT [facility] [place] [address] Transthoracic Echocardiographic Report Patient Name: RAH HENSON M : 1955 (69y 11m) Gender: M Study Date: 03/03/2025 01:38:47 PM Ht(Inch): 69 Wt(Lb): 218.03 BSA: 2.19 Supervisor Of Communications: RAVEN Location: [id number] Order Provider: BIANKA MCLAUGHLIN Heart Rate: 60 [...] valve leaflets. Mild-moderate aortic valve regurgitation. 5. Uqws-ig-orqp views of AV, MV & TV and of RV device without suspicion of vegetation. COMPARISONS: On fzgg-ez-ldps comparision with prior TTE on 08/15/24, the [...] Note De Khushi Brennan MD - 03/03/2025 [facility] [place] [address] Transthoracic Echocardiographic Report Patient Name: RAH HENSON M : 1955 (69y 11m) Gender: M Study Date: 03/03/2025 01:38:47 PM Ht(Inch): 69 Wt(Lb): 218.03 BSA: 2.19 Supervisor Of Communications: Location: [address] Order Provider: BIANKA MCLAUGHLIN Heart Rate: 60 [...] aortic valve leaflets. Mild-moderate aortic valveregurgitation. 5. Imwm-pv-pzzp views of AV, MV & TV and of RV device without suspicion ofvegetation. COMPARISONS: On qzhi-jd-nomb comparision with prior TTE on 08/15/24, the [...] [ 16.00 - 34.00 ] MV Decel Mqhv875.43 msec [ 104.00 - 258.00 ] RV [...] Khushi Cordero MD 03/03/2025 3:57:50 PM CDT us Bianka WAYNE CV ECHO PROCEDURES Final Result [...] * POCT glucose (03/03/2025 12:01 PM CDT) [facility] Glucose, POC 179 70 - 199 mg/dL Comment: Interpretive Data Glucose is assumed to be non-fasting. Fasting Glucose reference ranges are: 0 - 150 years: 70 mg/dL - 99 mg/dL Current interpretive data was last revised on 2014. POC Device Number [id number] [facility] VIRGENW[facility] Blood 03/03/2025 12:0 1 PM CDT 03/03/2025 12:01 PM CDT Jae Dave MD LAB POCT ORDERABLES - DEVICE Fin al Result DAVID VIRGENWCH [address] [facility]. [place] [address] * US Vein Duplex Lower Extremity Bilateral [...] signed by: Shabbir Jett M.D. Bianka WAYNE [facility] US PROCEDURES Final Result * POCT glucose (03/03/2025 8:58 AM CDT) [facility] Glucose, POC 124 70 - 199 mg/dL Comment: Interpretive Data Glucose is assumed to be non-fasting. Fasting Glucose reference ranges are: 0 - 150 years: 70 mg/dL - 99 mg/dL Current interpretive data was last revised on 2014. POC Device Number [id number] [facility] Blood 03/03/2025 8:58 AM CDT 03/03/2025 8:58 AM CDT Jae Dave MD LAB POCT ORDERABLES - DEVICE Fin al Result Performing Organization Address [facility] Co de Phone Number [facility] [address] [facility] [place] [address] * eGFR (03/03/2025 2:50 AM CDT) eGFR [...] 2:50 AM CDT 03/03/2025 2:54 AM CDT us Rosa Camp MD LAB BLOOD ORDERABLES Final Result Performing Organization Address [facility]/ZIP Co de Phone Number [facility] [address] [employer] [place] [address] * (ABNORMAL) Differential, auto (03/03/2025 2:50 AM CDT) Pathologist [facility] Neutrophil abs 4.71 1.50 - 6.50 K/cumm Imm gran abs 0.01 0.00 - 0.10 K/cumm [facility] Lymphocyte abs 0.42(L) 0.80 - 3.30 K/cumm [facility] Monocyte abs 0.69 0.20 - 0.80 K/cumm [facility] Eosinophil abs 0.18 0.00 - 0.50 K/cumm [facility] Basophil abs 0.02 0.00 - 0.10 K/cumm [facility] Neutrophil pct 78.1 % [facility] Comment: Interpretive Data Percent cell count reference ranges are not reported, since discordance with absolute values may lead to misinterpretation of CBC data. Current Interpretive Data was last revised on 2017. Imm gran pct 0.2 % [facility] Comment: Interpretive Data Percent cell count reference ranges are not reported, since discordance with absolute values may lead to misinterpretation of CBC data. Current Interpretive Data was last revised on 2017. Lymphocyte pct 7.0 % [facility] Comment: Interpretive Data Percent cell count reference ranges are not reported, since discordance with absolute values may lead to misinterpretation of CBC data. Current Interpretive Data was last revised on 2017. Monocyte pct 11.4 % [facility] Comment: Interpretive Data Percent cell count reference ranges are not reported, since discordance with absolute values may lead to misinterpretation of CBC data. Current Interpretive Data was last revised on 2017. Eosinophil pct 3.0 % [facility] Comment: Interpretive Data Percent cell count reference ranges are not reported, since discordance with absolute values may lead to misinterpretation of CBC data. Current Interpretive Data was last revised on 2017. Basophil pct 0.3 % [facility] Comment: Interpretive Data Percent cell count reference ranges are not reported, since discordance with absolute values may lead to misinterpretation of CBC data. Current Interpretive Data was last revised on 2017. Blood 03/03/2025 2:50 AM CDT 03/03/2025 2:54 AM CDT Rosa Camp MD LAB BLOOD ORDERABLES Final Result DAVID PEOPLES [address] [facility] [employer] [place], [place] [address] * (ABNORMAL) CBC with auto differential (03/03/2025 2:50 AM CDT) WBC 6.03 3.80 - 9.90 K/cumm Hgb 11.7(L) 13.0 - 17.5 g/dL [facility] Hct 36.5(L) 38.9 - 50.3 % [facility] Plt 114(L) 150 - 400 K/cumm [facility] MPV 10.8 9.1 - 12.3 fL [facility] RBC 4.48 4.30 - 5.80 M/cumm [facility] MCV 81.5 81.3 - 96.4 fL [facility] MCH 26.1(L) 27.1 - 33.3 pg [facility] MCHC 32.1(L) 32.3 - 35.7 g/dL CERNER [facility] RDW CV 16.6(H) 11.1 - 14.9 % [facility] RDW SD 49.4(H) 35.7 - 48.1 fL [facility] BJ[facility] NRBC abs 0.00 0.00 - 0.01 K/cumm [facility] Blood 03/03/2025 2:50 AM CDT 03/03/2025 2:54 AM CDT Rosa Camp MD LAB BLOOD ORDERABLES Final Result DAVID PEOPLES [address] [facility] [employer] [place], [place] [id number] * (ABNORMAL) Comprehensive metabolic panel (03/03/2025 2:50 AM CDT) Pathologist [facility] Sodium 137 135 - 145 mmol/L Potassium, pl 4.5 3.3 - 4.9 mmol/L C[facility]ER [facility] Chloride 103 97 - 110 mmol/L CERNER [facility] CO2 23 22 - 32 mmol/L [facility] Anion gap 11 2 - 15 mmol/L C[facility]ER [facility] BUN 20 6 - 25 mg/dL [...] 2:50 AM CDT 03/03/2025 2:54 AM CDT us Rosa Camp MD LAB BLOOD ORDERABLES Final Result DAVID PEOPLES [address] [facility]. [place] [address] * POCT glucose (03/02/2025 8:51 PM CDT) [facility] Glucose, POC 157 70 - 199 mg/dL Comment: Interpretive Data Glucose is assumed to be non-fasting. Fasting Glucose reference ranges are: 0 - 150 years: 70 mg/dL - 99 mg/dL Current interpretive data was last revised on 2014. POC Device Number [id number] DAVID PEOPLES Blood 03/02/2025 8:51 PM CDT 03/02/2025 8:51 PM CDT Lydia Franco MD LAB POCT ORDERABLES - DE VICE Final Result Performing Organization Address [facility] Phone Number [facility] [address] [facility] [employer] [place], [place] [id number] * POCT glucose (03/02/2025 7:12 PM CDT) Glucose, POC 181 70 - 199 mg/dL Comment: Interpretive Data Glucose is assumed to be non-fasting. Fasting Glucose reference ranges are: 0 - 150 years: 70 mg/dL - 99 mg/dL Current interpretive data was last revised on 2014. POC Device Number [id number] DAV[facility] PEOPLES Blood 03/02/2025 7:12 PM CDT 03/02/2025 7:12 PM CDT Lydia Franco MD LAB POCT ORDERABLES - DE VICE Final Result Performing Organization Address [facility] Phone Number [facility] [address] [facility]. [facility] [place] [address] * (ABNORMAL) POCT glucose (03/02/2025 5:08 PM CDT) Glucose, POC 200(H) 70 - 199 mg/dL Comment: Interpretive Data Glucose is assumed to be non-fasting. Fasting Glucose reference ranges are: 0 - 150 years: 70 mg/dL - 99 mg/dL Current interpretive data was last revised on 2014. POC Device Number [id number] CERNER [facility] Blood 03/02/2025 5:08 PM CDT 03/02/2025 5:08 PM CDT Lydia Franco MD LAB POCT ORDERABLES - DE VICE Final Result Performing Organization Address [facility] Phone Number [facility] [address] [facility] [place] [address] * (ABNORMAL) POCT glucose (03/02/2025 11:21 AM CDT) Glucose, POC 208(H) 70 - 199 mg/dL Comment: Interpretive Data Glucose is assumed to be non-fasting. Fasting Glucose reference ranges are: 0 - 150 years: 70 mg/dL - 99 mg/dL Current interpretive data was last revised on 2014. POC Device Number [id number] DAVID PEOPLES Blood 03/02/2025 11:2 1 AM CDT 03/02/2025 11:21 AM CDT Lydia Franco MD LAB POCT ORDERABLES - DE VICE Final Result Performing Organization Address [facility] Phone Number [facility] [address] [place] [address] * POCT glucose (03/02/2025 7:40 AM CDT) Glucose, POC 111 70 - 199 mg/dL Comment: Interpretive Data Glucose is assumed to be non-fasting. Fasting Glucose reference ranges are: 0 - 150 years: 70 mg/dL - 99 mg/dL Current interpretive data was last revised on 2014. POC Device Number [id number] DAVID PEOPLES Blood 03/02/2025 7:40 AM CDT 03/02/2025 7:40 AM CDT Lydia Franco MD LAB POCT ORDERABLES - DE VICE Final Result Performing Organization Address [facility]/ZIP Co de Phone Number DAVID VIRGENCH [address] [employer]. [place] [address] * eGFR (03/02/2025 3:38 AM CDT) eGFR [...] LAB BLOOD ORDERABLES Final Result DAV[facility] VIRGENWCH [address] [employer]. [place] [address] * (ABNORMAL) Differential, auto (03/02/2025 3:38 AM CDT) Neutrophil abs 2.09 1.50 - 6.50 K/cumm Imm gran abs 0.01 0.00 - 0.10 K/cumm [facility] Lymphocyte abs 0.49(L) 0.80 - 3.30 K/cumm [facility] Monocyte abs 0.61 0.20 - 0.80 K/cumm [facility] Eosinophil abs 0.26 0.00 - 0.50 K/cumm [facility] Basophil abs 0.02 0.00 - 0.10 K/cumm DAV[facility] PEOPLES Neutrophil pct 60.0 % DAVID PEOPLES Comment: Interpretive Data Percent [...] on 2017. Monocyte pct 17.5 % DAVID SWEENEY Comment: Interpretive Data Percent [...] on 2017. Basophil pct 0.6 % [facility] Comment: Interpretive Data Percent cell count reference ranges are not reported, since discordance with absolute values may lead to misinterpretation of CBC data. Current Interpretive Data was last revised on 2017. Blood 03/02/2025 3:38 AM CDT 03/02/2025 4:12 AM CDT us Rosa Camp MD LAB BLOOD ORDERABLES Final Result [facility]GENW[facility] [address] [facility]. [place] [address] * (ABNORMAL) CBC with auto differential (03/02/2025 3:38 AM CDT) WBC 3.48(L) 3.80 - 9.90 K/cumm Hgb 11.4(L) 13.0 - 17.5 g/dL [facility] Hct 36.6(L) 38.9 - 50.3 % [facility] Plt 106(L) 150 - 400 K/cumm [facility] MPV 10.4 9.1 - 12.3 fL [facility] RBC 4.41 4.30 - 5.80 M/cumm [facility] MCV 83.0 81.3 - 96.4 fL [facility] MCH 25.9(L) 27.1 - 33.3 pg [facility] MCHC 31.1(L) 32.3 - 35.7 g/dL [facility] RDW CV 16.7(H) 11.1 - 14.9 % [facility] RDW SD 50.8(H) 35.7 - 48.1 fL [facility] NRBC abs 0.00 0.00 - 0.01 K/cumm [facility] Blood 03/02/2025 3:38 AM CDT 03/02/2025 4:12 AM CDT Rosa Camp MD LAB BLOOD ORDERABLES Final Result [facility] [address] [facility] Department of Laboratories [place], [place] [id number] * (ABNORMAL) Comprehensive metabolic panel (03/02/2025 3:38 AM CDT) [facility] Sodium 138 135 - 145 mmol/L Potassium, pl 3.8 3.3 - 4.9 mmol/L [facility] Chloride 102 97 - 110 mmol/L [facility] CO2 27 22 - 32 mmol/L [facility] Anion gap 9 2 - 15 mmol/L [facility] BUN 18 6 - 25 mg/dL [facility] Creatinine 0.80 0.80 - 1.30 mg/dL [facility] Glucose 128 70 - 199 mg/dL [facility] Comment: Interpretive Data Fasting glucose >/= 126 [...] BLOOD ORDERABLES Final Result Performing Organization Address City/State/ZIP Co ca Phone Number DAVID VIRGENWCH [phone] [facility] [place] [address] * (ABNORMAL) POCT glucose (03/01/2025 9:04 PM CDT) [facility] Glucose, POC 241(H) 70 - 199 mg/dL Comment: Interpretive Data Glucose is assumed to be non-fasting. Fasting Glucose reference ranges are: 0 - 150 years: 70 mg/dL - 99 mg/dL Current interpretive data was last revised on 2014. POC Device Number [id number] CERNER B[facility] Blood 03/01/2025 9:04 PM CDT 03/01/2025 9:04 PM CDT Lydia Franco MD LAB POCT ORDERABLES - DE VICE Final Result Performing Organization Address [facility] Co de Phone Number DAVID VIRGENCH [address] [facility]. [facility] [place] [address] * POCT glucose (03/01/2025 5:50 PM CDT) Glucose, POC 87 70 - 199 mg/dL Comment: Interpretive Data Glucose is assumed to be non-fasting. Fasting Glucose reference ranges are: 0 - 150 years: 70 mg/dL - 99 mg/dL Current interpretive data was last revised on 2014. POC Device Number [id number] DAVID PEOPLES Blood 03/01/2025 5:50 PM CDT 03/01/2025 5:50 PM CDT Lydia Franco MD LAB POCT ORDERABLES - DE VICE Final Result Performing Organization Address [facility] Co ca Phone Number DAVID [facility] [address] [facility]. [facility] [place] [address] * (ABNORMAL) POCT glucose (03/01/2025 11:36 AM CDT) Glucose, POC 204(H) 70 - 199 mg/dL Comment: Interpretive Data Glucose is assumed to be non-fasting. Fasting Glucose reference ranges are: 0 - 150 years: 70 mg/dL - 99 mg/dL Current interpretive data was last revised on 2014. POC Device Number [id number] DAVID PEOPLES Blood 03/01/2025 11:3 6 AM CDT 03/01/2025 11:36 AM CDT Lydia Franco MD LAB POCT ORDERABLES - DE VICE Final Result Performing Organization Address City/[facility] Co ca Phone Number DAVID VIRGENCH [phone] [facility]. [facility] [place] [address] * C. difficile testing Stool (03/01/2025 10:10 AM CDT) Pathologist [facility] GD Result Positive Negative Comment:Testing performed by : [facility], [address] [place] [address]., [id number] Toxin Result Negative Negative DAVID PEOPLES Comment:Testing performed by : [facility], [address] [place] [address]., [id number] C. diff result Negative, free toxin. Negative, free toxin DAVID PEOPLES Comment:Testing performed by : [facility], [address] [place] [address]., [address] C. diff interp GDH+/toxin- results almost never represent true C. difficile infection (CDI). Results may represent colonization with C. difficile without CDI, detection of a bacteria other than toxigenic C. difficile, or a false negative toxin assay. If there is a high index of suspicion for CDI, additional testing by PCR is available upon request. DAVID PEOPLES Comment:Testing performed by : [facility], [address] [place] [address]., [id number] Stool 03/01/2025 10:1 0 AM CDT 03/01/2025 12:12 PM CDT Rosa Camp MD LAB MICROBIOLOGY - GENERAL ORDERABLES Final Result Performing Organization Address City/State/[facility] Co de Phone Number KRISTENPETAR VIRGENWCH [address] [facility] Department [place] [address] * Norovirus PCR Stool (03/01/2025 10:10 AM CDT) [facility] Norovirus GI RNA Not Detected Not Detected [facility] Comment:Testing performed by : [facility], [address] [place]., [address] Norovirus GII RNA Not Detected Not Detected DAVID PEOPLES Comment: Interpretive data: Testing performed at the [facility] using the [employer] Xpert Norovirus Assay. This assay uses nucleic [...] last revised on 2024. Testing performed by: [facility], [address] [place] [address]., [id number] Stool 03/01/2025 10:1 0 AM CDT 03/01/2025 2:08 PM CDT Rosa Camp MD LAB MICROBIOLOGY - GENERAL ORDERABLES Final Result [facility] [id number] [facility]. [place] [address] [facility] * (ABNORMAL) MRSA Only (Staphylococcus aureus) PCR Nasal (03/01/2025 10:10 AM CDT) [facility] PCR Scrn, Methicillin resistant Staphylococcus aureus (MRSA) Detected( C) Not Detected Comment: Critical result called to and read back by ALOK GARG (ENGINE REPAIRER) on 03/01/2025 14:59:19 CDT to [id number]. Interpretive Data Testing performed using Nucleic Acid Amplification with the [employer] Xpert MRSA NxG Assay. This assay detects target DNA from mecA, mecC and the SCCmec insertion site of Staphylococcus aureus using Real-Time PCR and has been cleared by the FDA. Performance characteristics have been verified by the [facility]. Current Interpretive Data was last revised on 2023 Testing performed by: [facility], [address] [place] [address]., [id number] Nasal 03/01/2025 10:1 0 AM CDT 03/01/2025 11:03 AM CDT Lydia Franco MD LAB MICROBIOLOGY - GENER AL ORDERABLES Final Result Performing Organization Address [facility] Co de Phone Number [facility] [address] [facility] [place] [address] * Stool culture Stool Rectum (03/01/2025 10:10 AM CDT) Direct Specimen Exam Shiga Toxin Testing: Negative for: Shigatoxin of enterohemorrhagic E.coli. Comment:Testing performed by : [facility], [address] [place] [address]., [id number] Report Final Report: No Salmonella, Shigella, Aeromonas, Plesiomonas, Yersinia, Campylobacter, or E.coli O157:H7 isolated DAVID PEPOLES Comment:Testing performed by : [facility], [address] [place] [address]., [id number] Stool (Rectum) 03/01/2025 10 :10 AM CDT 03/01/2025 12:12 PM CDT Narrative DAVID BJWCH - 03/04/2025 2:00 PM CDT This specimen is screened for the presence of Aeromonas, Campylobacter, E.coli-0157:H7, Plesiomonas, Salmonella, Shigella, Shiga Toxin producing E. coli, and Yersinia. Rosa Camp MD LAB MICROBIOLOGY - GENERAL ORDERABLES Final Result Performing Organization Address [facility] Co de Phone Number [facility] [address] [facility] [place] [address] * POCT glucose (03/01/2025 8:13 AM CDT) Glucose, POC 78 70 - 199 mg/dL Comment: Interpretive Data Glucose is assumed to be non-fasting. Fasting Glucose reference ranges are: 0 - 150 years: 70 mg/dL - 99 mg/dL Current interpretive data was last revised on 2014. POC Device Number [id number] DAVID SWEENEYCH Blood 03/01/2025 8:13 AM CDT 03/01/2025 8:13 AM CDT Lydia Franco MD LAB POCT ORDERABLES - DE VICE Final Result Performing Organization Address [facility] Phone Number [facility] BJWCH [address] [facility] [place] [address] * POCT glucose (03/01/2025 7:41 AM CDT) [facility] Glucose, POC 83 70 - 199 mg/dL Comment: Interpretive Data Glucose is assumed to be non-fasting. Fasting Glucose reference ranges are: 0 - 150 years: 70 mg/dL - 99 mg/dL Current interpretive data was last revised on 2014. POC Device Number [id number] DAVID PEOPLES Blood 03/01/2025 7:41 AM CDT 03/01/2025 7:41 AM CDT Lydia Franco MD LAB POCT ORDERABLES - DE VICE Final Result Performing Organization Address [facility] Phone Number [facility] BJWCH [address] [facility] [place] [address] * US RUQ (03/01/2025 7:35 AM CDT) [...] by: Jose Bustillo M.D. Rosa Camp MD IMG US PROCEDURES Final Re sult * eGFR [...] LAB BLOOD ORDERABLES Final Result DAVID VIRGENCH [address] [facility]. [place] [address] * (ABNORMAL) Differential, auto (03/01/2025 5:59 AM CDT) Neutrophil abs 3.84 1.50 - 6.50 K/cumm Imm gran abs 0.01 0.00 - 0.10 K/cumm [facility] Lymphocyte abs 0.47(L) 0.80 - 3.30 K/cumm [facility] Monocyte abs 0.61 0.20 - 0.80 K/cumm CERNER [facility] Eosinophil abs 0.17 0.00 - 0.50 K/cumm [facility] Basophil abs 0.02 0.00 - 0.10 K/cumm DAVID PEOPLES Neutrophil pct 75.0 % DAVID PEOPLES Comment: Interpretive Data Percent [...] MD LAB BLOOD ORDERABLES Final Result [facility] [address] [facility]. [place] [address] * (ABNORMAL) CBC with auto differential (03/01/2025 5:59 AM CDT) WBC 5.12 3.80 - 9.90 K/cumm Hgb 11.4(L) 13.0 - 17.5 g/dL [facility] Hct 35.4(L) 38.9 - 50.3 % [facility] Plt 107(L) 150 - 400 K/cumm [facility] Comment:No clot detected in sample. MPV 11.0 9.1 - 12.3 fL [facility] RBC 4.29(L) 4.30 - 5.80 M/cumm [facility] MCV 82.5 81.3 - 96.4 fL [facility] MCH 26.6(L) 27.1 - 33.3 pg [facility] W MCHC 32.2(L) 32.3 - 35.7 g/dL [facility] RDW CV 16.7(H) 11.1 - 14.9 % [facility] RDW SD 49.8(H) 35.7 - 48.1 fL [facility] NRBC abs 0.00 0.00 - 0.01 K/cumm [facility] Blood 03/01/2025 5:59 AM CDT 03/01/2025 5:59 AM CDT Rosa Camp MD LAB BLOOD ORDERABLES Final Result Performing Organization Address [facility] Co de Phone Number DAVID VIRGENCH [address] [facility] [employer] [place], [place] [id number] * (ABNORMAL) Erythrocyte sedimentation rate (03/01/2025 5:59 AM CDT) [facility] Erythrocyte sedimentation rate 37(H) 1 - 20 mm/hr Blood 03/01/2025 5:59 AM CDT 03/01/2025 5:59 AM CDT Rosa Camp MD LAB BLOOD ORDERABLES Final Result Performing Organization Address [facility] Co de Phone Number DAVID VIRGENWCH [address] [facility] [place] [address] * (ABNORMAL) CRP (acute phase) (03/01/2025 5:59 AM CDT) CRP 71.2(H) <=10.0 mg/L Blood 03/01/2025 5:59 AM CDT 03/01/2025 5:59 AM CDT Rosa Camp MD LAB BLOOD ORDERABLES Final Result [facility] [address] [facility]. [place] [address] * (ABNORMAL) Comprehensive metabolic panel (03/01/2025 5:59 AM CDT) Pathologist [facility] Sodium 141 135 - 145 mmol/L Potassium, [...] AST 185(H) 10 - 50 Units/L CERNER PARAMWCH Blood 03/01/2025 5:59 AM CDT 03/01/2025 5:59 AM CDT Rosa Camp MD LAB BLOOD ORDERABLES Final Result Performing Organization Address [facility] de Phone Number DAVID VIRGENWCH [address] [facility] [place] [address] * POCT glucose (03/01/2025 4:20 AM CDT) [facility] Glucose, POC 102 70 - 199 mg/dL Comment: Interpretive Data Glucose is assumed to be non-fasting. Fasting Glucose reference ranges are: 0 - 150 years: 70 mg/dL - 99 mg/dL Current interpretive data was last revised on 2014. POC Device Number [id number] [facility] Blood 03/01/2025 4:20 AM CDT 03/01/2025 4:20 AM CDT Rosa Camp MD LAB POCT ORDERABLES - ALESSIO CE Final Result Performing Organization Address [facility] de Phone Number DAVID BJWCH [address] [facility] [place] [address] * XR Chest Pa Lateral 2 Vw [...] abnormality. Electronically signed by: Jose Bustillo M.D. Jorge L Garcia MD IMG XR PROCEDURES Final Result * Blood culture Blood (03/01/2025 2:43 AM CDT) Report Final Report: No growth Comment:Testing performed by : [facility], [address] [place] [address], [place]., [address] Blood 03/01/2025 2:43 AM CDT 03/01/2025 7:08 AM CDT Angi HERNANDEZ BJCH - 03/06/2025 1:00 PM CDT Collection->Peripheral Interpretive [...] organism identification may be performed using the MCH+ Blood Culture Identification panel. This assay detects microbial DNA in a blood culture broth. This assay has been cleared by the [place] Food and Drug Administration and its performance characteristics have been verified by the [facility]. Interpretive data was last revised on August 03, 2022. us Jorge L Garcia MD LAB MICROBIOLOGY - GENERAL ORDER JOSE LUIS Final Result Performing Organization Address City/[facility]/ZIP Co de Phone Number DAVID SWEENEYCH [address] [facility] [place] [address] * Blood culture Blood (03/01/2025 2:43 AM CDT) Report Final Report: No growth Comment:Testing performed by : [facility], [facility], [place]., [address] Blood 03/01/2025 2:43 AM CDT 03/01/2025 7:08 [...] organism identification may be performed using the [employer] Blood Culture Identification panel. This assay detects microbial DNA in a blood culture broth. This assay has been cleared by the [place] Food and Drug Administration and its performance characteristics have been verified by the [facility]. Interpretive data was last revised on August 03, 2022. us Jorge L Garcia MD LAB MICROBIOLOGY - GENERAL ORDER JOSE LUIS Final Result Performing Organization Address City/[facility]/ZIP Co de Phone Number DAVID SWEENEYCH [address] [address]. [place] [address] * Mononucleosis screen (03/01/2025 1:09 AM CDT) [place] Screen Negative Negative Comment: Interpretive Data Heterophile [...] ORDERABLES Final Resul t Performing Organization Address [facility] de Phone Number DAVID VIRGENWCH [phone] [employer]. [facility] [employer] [place], [place] [id number] * POCT glucose (03/01/2025 12:27 AM CDT) [facility] Glucose, POC 130 70 - 199 mg/dL Comment: Interpretive Data Glucose is assumed to be non-fasting. Fasting Glucose reference ranges are: 0 - 150 years: 70 mg/dL - 99 mg/dL Current interpretive data was last revised on 2014. POC Device Number [id number] CERNER BJW[facility] Blood 03/01/2025 12:2 7 AM CDT 03/01/2025 12:27 AM CDT us Jorge L Garcia MD LAB POCT ORDERABLES - DEVICE Fin al Result Performing Organization Address [facility] de Phone Number DAVID BJWCH [phone] [address] [facility] [place] [address] * CT Abdomen Pelvis W Contrast (02/28/2025 [...] hernia. Electronically signed by: Gene Barber M.D. Arabella Roblero NP IMG CT PROCEDURES Fi nal Result * eGFR (02/28/2025 10:21 PM CDT) eGFR >90 >=60 mL/min/1. 73 [...] 1 PM CDT 02/28/2025 10:26 PM CDT Arabella Roblero NP LAB BLOOD ORDERABLES Final Result DAVID SWEENEYCH [address] [facility]. Department of Laboratories [place], [place] [id number] * (ABNORMAL) Differential, auto (02/28/2025 10:21 PM CDT) Neutrophil abs 6.15 1.50 - 6.50 K/cumm Imm gran abs 0.04 0.00 - 0.10 K/cumm CERNER [facility] Lymphocyte abs 0.43(L) 0.80 - 3.30 K/cumm CERNER [facility] Monocyte abs 0.69 0.20 - 0.80 K/cumm DAVID [facility] Eosinophil abs 0.06 0.00 - 0.50 K/cumm DAVID [facility] Basophil abs 0.02 0.00 - 0.10 K/cumm DAVID [facility] Neutrophil pct 83.3 % DAVID [facility] Comment: Interpretive Data Percent cell count reference ranges are not reported, since discordance with absolute values may lead to misinterpretation of CBC data. Current Interpretive Data was last revised on 2017. Imm gran pct 0.5 % DAVID [facility] Comment: Interpretive Data Percent cell count reference ranges are not reported, since discordance with absolute values may lead to misinterpretation of CBC data. Current Interpretive Data was last revised on 2017. Lymphocyte pct 5.8 % DAVID [facility] Comment: Interpretive Data Percent cell count reference ranges are not reported, since discordance with absolute values may lead to misinterpretation of CBC data. Current Interpretive Data was last revised on 2017. Monocyte pct 9.3 % DAVID [facility] Comment: Interpretive Data Percent cell count reference ranges are not reported, since discordance with absolute values may lead to misinterpretation of CBC data. Current Interpretive Data was last revised on 2017. Eosinophil pct 0.8 % [facility] Comment: Interpretive Data Percent cell count reference ranges are not reported, since discordance with absolute values may lead to misinterpretation of CBC data. Current Interpretive Data was last revised on 2017. Basophil pct 0.3 % [facility] Comment: Interpretive Data Percent cell count reference ranges are not reported, since discordance with absolute values may lead to misinterpretation of CBC data. Current Interpretive Data was last revised on 2017. Blood 02/28/2025 10:2 1 PM CDT 02/28/2025 10:26 PM CDT us Arabella Roblero NP LAB BLOOD ORDERABLES Final Result DAVID VIRGENCH [address] [facility]. [place] [address] * (ABNORMAL) CBC with auto differential (02/28/2025 10:21 PM CDT) Pathologist [facility] WBC 7.39 3.80 - 9.90 K/cumm Hgb 11.8(L) 13.0 - 17.5 g/dL [facility] Hct 36.7(L) 38.9 - 50.3 % [facility] Plt 119(L) 150 - 400 K/cumm [facility] BJWCH Comment:No clot detected in sample. MPV 10.5 9.1 - 12.3 fL [facility] RBC 4.52 4.30 - 5.80 M/cumm [facility] MCV 81.2(L) 81.3 - 96.4 fL [facility] MCH 26.1(L) 27.1 - 33.3 pg [facility] MCHC 32.2(L) 32.3 - 35.7 g/dL [facility] RDW CV 16.7(H) 11.1 - 14.9 % [facility] RDW SD 48.8(H) 35.7 - 48.1 fL [facility] NRBC abs 0.00 0.00 - 0.01 K/cumm [facility] Blood 02/28/2025 10:2 1 PM CDT 02/28/2025 10:26 PM CDT us Arabella Roblero [employer] LAB BLOOD ORDERABLES Final Result [facility] [address] [facility] [place] [address] * (ABNORMAL) Comprehensive metabolic panel (02/28/2025 10:21 PM CDT) [facility] Sodium 139 135 - 145 mmol/L Potassium, pl 4.0 3.3 - 4.9 mmol/L [facility] Chloride 103 97 - 110 mmol/L [facility] CO2 24 22 - 32 mmol/L [facility] Anion gap 12 2 - 15 mmol/L [facility] BUN 18 6 - 25 mg/dL C[facility]ER [facility] Creatinine 0.80 0.80 - 1.30 mg/dL [facility]ER [facility] Glucose 133 70 - 199 mg/dL [facility] Comment: [...] 1 PM CDT 02/28/2025 10:26 PM CDT Arabella Roblero [employer] LAB BLOOD ORDERABLES Final Result DAVID SWEENEYCH [address] [facility] [place] [address] * POCT glucose (02/28/2025 9:56 PM CDT) [facility] Glucose, POC 136 70 - 199 mg/dL Comment: Interpretive Data Glucose is assumed to be non-fasting. Fasting Glucose reference ranges are: 0 - 150 years: 70 mg/dL - 99 mg/dL Current interpretive data was last revised on 2014. POC Device Number [id number] CERNER [facility] Blood 02/28/2025 9:56 PM CDT 02/28/2025 9:56 PM CDT Notinfile Unknown LAB POCT ORDERABLES - DEVICE F inal Result Performing Organization Address [facility]/ZIP Co de Phone Number DAVID PEOPLES [address] [facility] [place] [address] * Influenza A/B, RSV, and COVID-19 PCR Nasopharyngeal (02/28/2025 8:27 PM CDT) COVID-19 RNA Negative Negative Influenza A RNA Negative Negative [facility] Influenza B RNA Negative Negative [facility] RSV RNA Negative Negative [facility] Comment: Testing performed by [facility]. This test is performed using the [employer] Xpert Xpress CoV-2/Flu/RSV plus assay. This is a multiplex, real-time reverse transcriptase PCR assay intended for the qualitative detection of nucleic acid from SARS-CoV-2, influenza A, influenza B, and respiratory syncytial virus. This assay has been cleared by the [place] Food and Drug administration. The performance characteristics have been verified by the [facility]. Results must be considered in the clinical context, and a negative result does not rule out infection. Interpretive Data last revised 2023 Nasopharyngeal 02/28/2025 8: 27 PM CDT 02/28/2025 8:27 PM CDT Narrative DAVID [facility] - 02/28/2025 9:05 PM CDT Is the Patient experiencing symptoms consistent with COVID?->Yes Jorge L Garcia MD LAB MICROBIOLOGY - GENERAL ORDER JOSE LUIS Final Result Performing Organization Address [facility]/ZIP Co de Phone Number DAVID SWEENEYCH [address] [facility] [place] [address] * (ABNORMAL) Urinalysis reflex to microscopic and [...] tendency for uric acid stone formation. Source: [facility] [place] Current Interpretive Data was last revised on [...] Reflex to microscopic UA will be performed. CERNER [facility] Urine 02/28/2025 8:27 PM CDT 02/28/2025 8:27 PM CDT Jorge L Garcia MD LAB MICROBIOLOGY - GENERAL ORDER JOSE LUIS Final Result DAVID PEOPLES [address] [facility] Department of Laboratories [place], [place] [id number] * Respiratory pathogen panel Nasopharyngeal (02/28/2025 8:27 PM CDT) Influenza A RNA Not Detected Not Detected MBC Comment:Testing performed by : [facility], [address] [place] [address], [place]., [address] Influenza B RNA Not Detected Not Detected DAVID PEOPLES Comment:Testing performed by : [facility], [address] [place] [address]., [address] RSV RNA Not Detected Not Detected DAVID SWEENEY Comment:Testing performed by : [facility], [address] [place] [address], [place]., [address] COVID-19 RNA Not Detected Not Detected CERNER [facility] Comment:Testing performed by : [facility], [address] [place] [address]., [address] Coronavirus 229E RNA Not Detected Not Detected CERNER [facility] Comment:Testing performed by : [facility], [address] [place] [address]., [address] Coronavirus HKU1 RNA Not Detected Not Detected CERNER [facility] Comment:Testing performed by : [facility], [address] [place] [address]., [address] Coronavirus NL63 RNA Not Detected Not Detected CERNER [facility] Comment:Testing performed by : [facility], [address] [place] [address]., [address] Coronavirus OC43 RNA Not Detected Not Detected CERNER [facility] Comment:Testing performed by : [facility], [address] [place] [address]., [id number] Adenovirus DNA Not Detected Not Detected CERNER [facility] Comment:Testing performed by : [facility], [address] [place] [address]., [address] Metapneumovirus RNA Not Detected Not Detected CERNER [facility] Comment:Testing performed by : [facility], [address] [place] [address]., [address] Rhinovirus/Enterov irus RNA Not Detected Not Detected CERNER [facility] Comment:Testing performed by : [facility], [address] [place] [address]., [address] Parainfluenza 1 RNA Not Detected Not Detected C[facility]ER [facility] Comment:Testing performed by : [facility], [address] [place] [address]., [address] Parainfluenza 2 RNA Not Detected Not Detected CERNER [facility] Comment:Testing performed by : [facility], [address] [place] [address]., [address] Parainfluenza 3 RNA Not Detected Not Detected CERNER [facility] Comment:Testing performed by : [facility], [address] [place] [address]., [address] Parainfluenza 4 RNA Not Detected Not Detected [facility] Comment:Testing performed by : [facility], [address] [place] [address]., [id number] B. pertussis DNA Not Detected Not Detected [facility] Comment:Testing performed by : [facility], [address] [place] [address]., [id number] B. parapertussis DNA Not Detected Not Detected [facility] Comment:Testing performed by : [facility], [address] [place] [address]., [id number] C. pneumoniae DNA Not Detected Not Detected [facility] Comment:Testing performed by : [facility], [address] [place] [address]., [id number] M. pneumoniae DNA Not Detected Not Detected [facility] Comment: Interpretive Data The Busportal FilmArray Respiratory Panel (RP2.1) assay is a [...] assay has FDA clearance for testing of WIRE ROLLER swabs. The performance characteristics of this assay have been determined by [facility]. Current interpretive data was last revised on 2021. Testing performed by: [facility], [address] [place] [address], [place]., [address] Nasopharyngeal 02/28/2025 8: 27 PM CDT 03/01/2025 3:00 AM CDT us Jorge L Garcia MD LAB MICROBIOLOGY - GENERAL ORDER JOSE LUIS Final Result Performing Organization Address [facility] de Phone Number [facility] [address] [address] [employer]. Department [employer] [place], [place] [id number] [facility] * (ABNORMAL) Urinalysis, microscopic only (02/28/2025 8:27 PM CDT) WBC, ur 0-5 0 - 5 /HPF RBC, ur 0-2 0 - 2 /HPF DAVID PEOPLES Mucous, ur Present(A) DAVID PEOPLES Culture Reflex Comment Reflex conditions for urine culture (WBC >10) not met. DAVID PEOPLES Urine 02/28/2025 8:27 PM CDT 02/28/2025 8:27 PM CDT us Jorge L Garcia MD LAB URINE ORDERABLES Final Resul t Performing Organization Address [facility] Co de Phone Number [facility]ID [facility] [address] [address] [employer]. Department [employer] [place], [place] [id number] * Surgical pathology (02/23/2025 12:00 AM CDT) Tissue (Skin, shave biopsy) 02/23/2025 02/24/2025 7:14 AM CDT [facility] - 02/25/2025 11:20 AM CDT EPIC results best viewed via link to PDF [facility] [address], [place] [address] [email or web address] Note to Patients: This report [...] Submitting Physician Information: Kemal Galvez M.D. [address] [facility], [address] [place] [id number] , DERMATOPATHOLOGY REPORT RESULTS DIAGNOSIS: SKIN, RIGHT PLASENCIA, SHAVE BIOPSY: BASAL CELL CARCINOMA tong/ajrr By this signature, I attest that the [...] ag/mat ICD-9 A; ZSD.176 Clerical Data A; 80313 The characteristics of special, immunohistochemical, and immunofluorescence stains and in-situ hybridization tests performed by the [facility] were deemed acceptable in ongoing supervisor quality control measures and in compliance with regulations drawn from the Clinical Laboratory Improvement Act wc1587 (CLIA '88). Control reactions for all stains performed were deemed adequate and appropriate by a pathologist prior to evaluation of patient tissue. Some diagnoses were rendered with the assistance of laboratory-developed tests utilizing analyte-specific reagents; the performance characteristic of these tests were determined by [facility] and are not cleared or approved by the US Food an Drug administration. Laboratory developed test may only be performed in a facility that is certified by the [facility] as a high-complexity laboratory under CLIA '88. These tests are used for clinical purposes and are not investigational. Kemal Gavlez MD LAB PATHOLOGY ORDERABLES Final Result [facility]OPATHOLOGY CENTER [address] [place] [id number] * CTA Abdomen (02/05/2025 2:29 PM CDT) [...] changes from Whipple procedure. Dictated by: Elsa Miko O'Dae, M.D. The radiology attending physician has personally [...] esult * eGFR (01/19/2025 1:32 PM CDT) [facility] eGFR 90 >=60 mL/min/1. 73 m2 Comment: [...] WAYNE LAB BLOOD ORDERABLES Final Result DAVID [facility] [place] [address] * (ABNORMAL) Differential, auto (01/19/2025 1:32 PM CDT) [facility] Neutrophil abs 5.13 1.50 - 6.50 K/cumm Comment:Testing performed by : [facility], [address] [place] [phone] Lymphocyte abs 0.73(L) 0.80 - 3.30 K/cumm DAVID VIRGEN Comment:Testing performed by : [facility], [address] [place] [phone] Monocyte abs 0.60 0.20 - 0.80 K/cumm [facility] Comment:Testing performed by : [facility], [address] [place] [phone] Eosinophil abs 0.17 0.00 - 0.50 K/cumm [facility] Comment:Testing performed by : [facility], [address] [place] [phone] Basophil abs 0.04 0.00 - 0.10 K/cumm [facility] Comment:Testing performed by : [facility], [address] [place] [phone] Neutrophil pct 76.9 % [facility] Comment: Interpretive Data Percent cell count reference ranges are not reported, since discordance with absolute values may lead to misinterpretation of CBC data. Current Interpretive Data was last revised on 2017. Testing performed by: [facility], [address] [place] [phone] Lymphocyte pct 11.0 % [facility] Comment: Interpretive Data Percent cell count reference ranges are not reported, since discordance with absolute values may lead to misinterpretation of CBC data. Current Interpretive Data was last revised on 2017. Testing performed by: [facility], [address] [place] [phone] Monocyte pct 9.0 % [facility] Comment: Interpretive Data Percent cell count reference ranges are not reported, since discordance with absolute values may lead to misinterpretation of CBC data. Current Interpretive Data was last revised on 2017. Testing performed by: [facility], [address] [place] [phone] Eosinophil pct 2.6 % [facility] Comment: Interpretive Data Percent cell count reference ranges are not reported, since discordance with absolute values may lead to misinterpretation of CBC data. Current Interpretive Data was last revised on 2017. Testing performed by: [facility], [address] [place] [phone] Basophil pct 0.5 % [facility] Comment: Interpretive Data Percent cell count reference ranges are not reported, since discordance with absolute values may lead to misinterpretation of CBC data. Current Interpretive Data was last revised on 2017. Testing performed by: [facility], [address] [place] [phone] Blood 01/19/2025 1:32 PM CDT 01/19/2025 1:39 PM CDT us Tiffany WAYNE LAB BLOOD ORDERABLES Final Result Performing Organization Address City/[facility]/ZIP Co de Phone Number [facility] [place] [address] * Iron profile w/ IBC (01/19/2025 1:32 PM CDT) Iron 96 50 - 150 mcg/dL TIBC 322 250 - 400 mcg/dL [facility] Transferrin saturation 30 20 - 50 % [facility] Blood 01/19/2025 1:32 PM CDT 01/19/2025 1:42 PM CDT us Ben Chahal MD PhD LAB BLOOD ORDERABLES Fin al Result Performing Organization Address City/[facility] Co de Phone Number [facility] [place] [address] * (ABNORMAL) CBC with auto differential (01/19/2025 1:32 PM CDT) WBC 6.68 3.80 - 9.90 K/cumm Comment:Testing performed by : [facility], [address] [place] [phone] Hgb 11.6(L) 13.0 - 17.5 g/dL CERPETAR [facility] Comment:Testing performed by : [facility], [address] [place] [phone] Hct 36.5(L) 38.9 - 50.3 % DAVID [facility] Comment:Testing performed by : [facility], [address] [place] [phone] Plt 186 150 - 400 K/cumm DAVID [facility] Comment:Testing performed by : [facility], [address] [place] [address] MPV 7.8 6.8 - 10.4 fL DAVID VIRGEN Comment:Testing performed by : [facility], [address] [place] [address] RBC 4.57 4.30 - 5.80 M/cumm DAVID VIRGEN Comment:Testing performed by : [facility], [address] [place], [place] [phone] MCV 79.9(L) 81.3 - 96.4 fL DAVID VIRGEN Comment:Testing performed by : [facility], [address] [place], [place] [phone] MCH 25.3(L) 27.1 - 33.3 pg DAVID VIRGEN Comment:Testing performed by : [facility], [address] [place] [address] MCHC 31.7(L) 32.3 - 35.7 g/dL DAVID VIRGEN Comment:Testing performed by : [facility], [address] [place] [address] RDW CV 17.5(H) 11.1 - 14.9 % DAVID VIRGEN Comment:Testing performed by : [facility], [address] [place] [address] NRBC abs 0.00 0.00 - 0.01 K/cumm DAVID [facility] Comment:Testing performed by : [facility], [address] [place] [address] Blood 01/19/2025 1:32 PM CDT 01/19/2025 1:39 PM CDT Tiffany WAYNE LAB BLOOD ORDERABLES Final Result DAVID VIRGEN [facility] [place] [address] * Cancer antigen 19-9 (01/19/2025 1:32 PM CDT) CA 19-9 ag 24.3 <=35.0 units/mL Comment: Interpretive Data The Autumn CA 19-9 assay procedure was used. Results from different manufacturers or methods may not be comparable. Serial testing should be performed using the same method. Blood 01/19/2025 1:32 PM CDT 01/19/2025 2:11 PM CDT Tiffany WAYNE LAB BLOOD ORDERABLES Final Result Performing Organization Address [facility] Co de Phone Number [facility] [place] [address] * Ferritin (01/19/2025 1:32 PM CDT) [facility] Ferritin 54 30 - 400 ng/mL Blood 01/19/2025 1:32 PM CDT 01/19/2025 1:42 PM CDT Ben Chahal MD PhD LAB BLOOD ORDERABLES Fin al Result Performing Organization Address [facility] de Phone Number [facility] Department [place] [address] * (ABNORMAL) Comprehensive metabolic panel (01/19/2025 1:32 PM CDT) [facility] Sodium 140 135 - 145 mmol/L Potassium, pl 4.0 3.3 - 4.9 mmol/L [facility] Chloride 103 97 - 110 mmol/L [facility] CO2 27 22 - 32 mmol/L [facility] Anion gap 10 2 - 15 mmol/L [facility] BUN 25 6 - 25 mg/dL [facility] Creatinine 0.92 0.80 - 1.30 mg/dL [facility] Glucose 184 70 - 199 mg/dL [facility] Comment: Interpretive Data Fasting glucose >/= 126 [...] Calcium 9.0 8.5 - 10.3 mg/dL CERNER [facility] Bilirubin, total 0.2 0.1 - 1.2 mg/dL CERNER [facility] Protein, pl 7.2 6.5 - 8.5 g/dL [facility] Albumin 3.9 3.5 - 5.0 g/dL CERNER [facility] Alk phos 423(H) 40 - 130 Units/L CERNER [facility] ALT 42 7 - 55 Units/L CERNER [facility] AST 38 10 - 50 Units/L CERNER [facility] Blood 01/19/2025 1:32 PM CDT 01/19/2025 1:42 PM CDT Tiffany WAYNE LAB BLOOD ORDERABLES Final Result [facility] [place] [address] * CT chest without contrast (01/19/2025 1:12 [...] was last revised on 2014. POC Performer [id number] [facility] POC Device Number [id number] [facility] Blood 01/15/2025 12:3 0 PM CDT 01/15/2025 12:30 PM CDT Cb Lentz MD LAB POCT ORDERABLES - DEV ICE Final Result Performing Organization Address [facility] de Phone Number DAVID VIRGENCH [address] [facility] [place] [address] * (ABNORMAL) POCT glucose (01/15/2025 11:49 AM CDT) Glucose, POC 284(H) 70 - 199 mg/dL Comment: Interpretive Data Glucose is assumed to be non-fasting. Fasting Glucose reference ranges are: 0 - 150 years: 70 mg/dL - 99 mg/dL Current interpretive data was last revised on 2014. POC Performer [id number] [facility] POC Device Number [id number] [facility] Glucose comment 1 RN/MD Notified DAVID PEOPLES Blood 01/15/2025 11:4 9 AM CDT 01/15/2025 11:49 AM CDT Cb Lentz MD LAB POCT ORDERABLES - DEV ICE Final Result Performing Organization Address [facility] de Phone Number DAVID VIRGENWCH [address] [facility] [place] [address] * POCT glucose (01/15/2025 8:14 AM CDT) Glucose, POC 138 70 - 199 mg/dL Comment: Interpretive Data Glucose is assumed to be non-fasting. Fasting Glucose reference ranges are: 0 - 150 years: 70 mg/dL - 99 mg/dL Current interpretive data was last revised on 2014. POC Performer [id number] DAVID PEOPLES POC Device Number [id number] DAVID [facility]LES Blood 01/15/2025 8:14 AM CDT 01/15/2025 8:14 AM CDT us Cb eLntz MD LAB POCT ORDERABLES - DEV ICE Final Result Performing Organization Address [facility] Co de Phone Number [facility] [address] [address] [employer]. [place] [address] * eGFR (01/15/2025 6:07 AM CDT) eGFR [...] ORDERABLES Tete l Result Performing Organization Address City/[facility]/ZIP Co de Phone Number DAVID VIRGENCH [address] [facility]. [place] [address] * (ABNORMAL) Differential, auto (01/15/2025 6:07 AM CDT) Neutrophil abs 1.98 1.50 - 6.50 K/cumm Imm gran abs 0.01 0.00 - 0.10 K/cumm CERNER [facility] Lymphocyte abs 0.66(L) 0.80 - 3.30 K/cumm [facility] Monocyte abs 0.67 0.20 - 0.80 K/cumm CERNER [facility] Eosinophil abs 0.18 0.00 - 0.50 K/cumm CERNER [facility] Basophil abs 0.02 0.00 - 0.10 K/cumm CERNER [facility] Neutrophil pct 56.2 % CERNER [facility] Comment: Interpretive Data Percent cell count reference ranges are not reported, since discordance with absolute values may lead to misinterpretation of CBC data. Current Interpretive Data was last revised on 2017. Imm gran pct 0.3 % DAVID [facility] Comment: Interpretive Data Percent cell count reference ranges are not reported, since discordance with absolute values may lead to misinterpretation of CBC data. Current Interpretive Data was last revised on 2017. Lymphocyte pct 18.8 % [facility] Comment: Interpretive Data Percent cell count reference ranges are not reported, since discordance with absolute values may lead to misinterpretation of CBC data. Current Interpretive Data was last revised on 2017. Monocyte pct 19.0 % DAVID [facility] Comment: Interpretive Data Percent cell count reference ranges are not reported, since discordance with absolute values may lead to misinterpretation of CBC data. Current Interpretive Data was last revised on 2017. Eosinophil pct 5.1 % [facility] Comment: Interpretive Data Percent cell count reference ranges are not reported, since discordance with absolute values may lead to misinterpretation of CBC data. Current Interpretive Data was last revised on 2017. Basophil pct 0.6 % [facility] Comment: Interpretive Data Percent cell count reference ranges are not reported, since discordance with absolute values may lead to misinterpretation of CBC data. Current Interpretive Data was last revised on 2017. Blood 01/15/2025 6:07 AM CDT 01/15/2025 6:11 AM CDT Cb Lentz MD LAB BLOOD ORDERABLES Tete l Result DAVID [place] [address] [facility]. [place] [address] * (ABNORMAL) CBC with auto differential (01/15/2025 6:07 AM CDT) WBC 3.52(L) 3.80 - 9.90 K/cumm Hgb 10.9(L) 13.0 - 17.5 g/dL [facility] Hct 35.3(L) 38.9 - 50.3 % [facility] Plt 143(L) 150 - 400 K[facility]cumm [facility] MPV 10.4 9.1 - 12.3 fL [facility] RBC 4.25(L) 4.30 - 5.80 M/cumm [facility] MCV 83.1 81.3 - 96.4 fL [facility] MCH 25.6(L) 27.1 - 33.3 pg [facility] MCHC 30.9(L) 32.3 - 35.7 g/dL [facility] RDW CV 16.4(H) 11.1 - 14.9 % [facility] RDW SD 49.8(H) 35.7 - 48.1 fL [facility] NRBC abs 0.00 0.00 - 0.01 K/cumm [facility] Blood 01/15/2025 6:07 AM CDT 01/15/2025 6:11 AM CDT Cb Lentz MD LAB BLOOD ORDERABLES Tete l Result DAVID SWEENEYCH [address] [facility]. [place] [address] * Basic metabolic panel (01/15/2025 6:07 AM CDT) Sodium 138 135 - 145 mmol/L Potassium, pl 3.7 3.3 - 4.9 mmol/L [facility] Chloride 101 97 - 110 mmol/L [facility] CO2 26 22 - 32 mmol/L [facility] Anion gap 11 2 - 15 mmol/L [facility] BUN 15 6 - 25 mg/dL CERNER W Creatinine 0.80 0.80 - 1.30 mg/dL CERNER [facility] Glucose 143 70 - 199 mg/dL [facility] Comment: Interpretive Data Fasting glucose >/= 126 [...] 2022. Calcium 8.6 8.5 - 10.3 mg/dL [facility] Blood 01/15/2025 6:07 AM CDT 01/15/2025 6:11 AM CDT Cb Lentz MD LAB BLOOD ORDERABLES Tete bennett Result DAVID VIRGENCH [address] [facility]. [place] [address] * (ABNORMAL) Lipid panel (11/19/2024 1:05 PM [...] mg/dL High: >160 mg/dL Calculated using the Quach LDL-C estimating equation. This equation was implemented on 2024. Prior to this date LDL-C was estimated using the Friedewald equation. Literature References: 1. Expert Panel on Integrated Guidelines for Cardiovascular Health and Risk Reduction in Children and Adolescents. Pediatrics 2011;128:S213 2. NCEP Expert Panel. Circulation 2004;110:227 3. Quach M et al. JEANINE Cardiol. 2020 October 30;5(5):540-548. [...] LAB BLOOD ORDERABLES Fi nal Result DAVID VIRGENWCH [address] [facility]. [place] [address] * Colonoscopy (11/11/2024 11:01 AM CDT) Anatomical Region Laterality Modality Other Narrative Procedure Note Trang Ryan MD - 11/11/2024 11:01 AM CDT ENDOSCOPY LAB Patient Name: Rah Henson Procedure Date: 11/11/2024 11:01 AM Date of : 1955 Admit Type: Outpatient Age: 69 Gender: Male Attending MD: Trang Ryan M.D. Room: [facility] ENDOSCOPY ROOM 01 Note Status: Finalized [...] The scope was passed under direct vision.The [id number] was introduced through the anusand advanced to [...] 0 Note Initiated On: 11/11/2024 11:01 AM Tragn Ryan MD ENDOSCOPY PROCEDURES Final Resu lt [...] Clemencia Beatty NP LAB URINE ORDERABLES Tete sabrina Result [facility] [address] [place] [address] * PSA screen (04/16/2020 7:01 AM CDT) PSA 0.1 < OR = 4.0 ng/mL [facility] Comment: The total PSA value from this assay system is standardized against the WHO standard. The test result will be approximately 20% lower when compared to the equimolar-standardized total PSA (April [place]). Comparison of serial PSA results should be interpreted with this fact in mind. This test was performed using the Siemens chemiluminescent method. Values obtained from different assay methods cannot be used interchangeably. PSA levels, regardless of value, should not be interpreted as absolute evidence of the presence or absence of disease. Blood specimen (specimen) 04/16/2020 7:01 AM CDT 04/16/2020 7:03 AM CDT [facility] - 04/21/2020 11:41 AM CDT FASTING:YES FASTING: YES us William Mera MD LAB BLOOD ORDERABLES Final R esult Performing Organization Address City/[facility] Co de Phone Number [facility] [address] [phone] from Last 3 Months or Most Recently Relevant to Health Maintenance Insurance HUMANA CHOICE MEDICARE PPO IDPA [facility] GOLD REF AET SENIOR SUPPLEMENT HUMANA CHOICE MEDICARE PPO MEDICARE IDPA HUMANA CHOICE MEDICARE PPO IDPA IDPA HUMAN CHOICE MEDICARE PPO IDPA HUMAN MEDICARE HMO Advance Directives For more information, please contact: [phone] Documents on File Type Date Recorded Patient Scheduling Specialist Expl anation ADVANCE DIRECTIVE 05/22/2023 5:43 PM Claudine Ellis [employer]-MEDICAL ADVANCE DIRECTIVE 04/12/2023 6:16 PM [place] [facility] [place] [facility]-MEDICAL ADVANCE DIRECTIVE 04/12/2023 6:09 PM [place] [facility] [employer] [facility]-MEDICAL * Full Code (Latest Code Status on [...] Agents on File Name Relationship Healthcare Agent [facility] Communication Claudine Henson Spouse Health Care Agent [email or web address] Meghan Ellis Daughter First Alternate Health Care Agent Sushant Henson Son Second Alternate Health Care Agent [email or web address] Teams Bar Host/Hostess Relationship Specialty Start Date End Date Kenton Ricks MD PCP - General 08/14/16 Pebbles Nelson MD Referring Physician Cardiology 02/07/19 Aylin Russ MD [address] [place] [address] Referring Physician Pulmonary Disease 02/07/19 Maricruz Ramirez, WIRE ROLLER [address] [place] [address] Nurse Practitioner Cardiovascular Disease 09/25/21 Joanne Lopez, [place] Registered Nurse Pulmonary Disease 08/24/22 Ben Chahal MD PhD [address] [place] [address] [address] [place] [address] Medical Oncologist/Hematologis t Medical Oncology 10/05/22 Giovanna Alexis MD [address] [place] [address] [address] [place] [address] Radiation Oncologist Radiation Oncology 03/09/23 Abby Higgins MD PhD [address] DIV IM MEDICAL ONCOLOGY, [facility] [address], [address], [address] [place] [address] Medical Oncologist/Hematologis t Medical Oncology 05/10/23 Adrian Martinez MD [address] DIV SURG TRANSPLANT, [facility] [address] [place] [address] Surgical Oncologist Surgical Oncology 05/28/23 Vera Pérez PA [address] [place] [id number] [place] [address] Physician Tape Machine Tailer Colon and Rectal Surgery 09/13/23 Jim Frausto MD [address] [facility] [phone] [place] [address] Surgeon Colon and Rectal Surgery 11/21/23
--- OUTSIDE RECORDS SUMMARY | 2025-04-17 10:33 | XMS_ITS | Encounter Summary ---
Author Organization [facility] Address [address] [place] [address] Phone Care Team Providers Care Sprinkler Fitter Helper Name Role Phone Kenton Ricks MD Primary Care Provider + [phone] Pebbles Nelson MD Unavailable [phone] Aylin Russ MD Unavailable [phone] Maricruz Ramirez NP Unavailable [phone] Joanne Lopez RN Unavailable Padmini Ben Walker MD PhD Unavailable [phone] Giovanna Alexis MD Unavailable Abby Higgins MD PhD Unavailable + Adrian Martinez MD Unavailable [phone] Vera Pérez Unavailable [phone] Jim Frausto MD Unavailable [phone] Encounter Details Date Type Department Care Team (Late st Contact Info) Description 02/25/2025 Results Follow-Up [facility] Medicine Dermatology [address] [facility] [address] [place] [address] Kemal Galvez MD [address] [facility] [address] [place], [place] [id number] Surgical pathology Social History Tobacco Use Types [...] materials from doctor or pharmacy Sometimes 09/03/2023 [facility] Utilities Answer Date Recorded In the past 12 months has e [employer], gas, oil, or water [employer] threatened to shut off services in your [...] How often do you attend chur or adventism services? More than 4 times per year [...] place to sleep or slept in a penitentiary (including now)? No 11/12/2023 PHQ-9 Answer Date [...] any time in the past 12 m [facility], were you homeless or living in a penitentiary (including now)? No 01/13/2025 Personal Safety Answer Date Recorded Have you ever been in or are you currently in a harmful physical or emotional relationship or is someone making you feel afraid or unsafe? Denies 03/01/2025 Sex and Gender Information Value Date Recorded Sex Assigned at Not on file Legal Sex Male 12:58 AM WELLNESS DIRECTOR Gender Identity Male 11/11/2018 10:31 AM CDT Sexual Orientation Straight 06/09/2019 5: 34 PM WELLNESS DIRECTOR documented as of this encounter Plan of Treatment Upcoming Encounters Date Type Department Care Team (Late st Contact Info) Description 04/20/2025 Orders Only [facility] Medicine Oncology [address] [facility] [address] [place] [address] Tory Nye Pancreatic adenocarcinoma (HCC) (Primary Dx) documented as of this encounter Visit Diagnoses Not on filedocumented in this encounter Additional Health Concerns Infection Onset Date Last Indicated 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 difficile suspected 03/01/2025 03/01/202503/01 1:04 PM CDT Norovirus suspected 03/01/2025 03/01/2025 03/01/20 3:43 PM CDT COVID: Suspected 03/31/2025 03/31/2025 03/31/2025 3:56 PM CDT documented as of this encounter Care Teams Sprinkler Fitter Helper Relationship Specialty Start Date End Date Kenton Ricks MD PCP - General 08/14/16 Pebbles Nelson MD Referring Physician Cardiology 02/07/19 Aylin Russ MD [address] [address] Referring Physician Pulmonary Disease 02/07/19 Maricruz Ramirez NP [address] [address] Nurse Practitioner Cardiovascular Disease 09/25/21 Joanne Lopez, CONY Registered Nurse Pulmonary Disease 08/24/22 Ben Chahal MD PhD [address] [place] [address] [address] [place] [address] Medical Oncologist/Hematologis t Medical Oncology 10/05/22 Giovanna Alexis MD [address] [facility] [address] [place] [address] Radiation Oncologist Radiation Oncology 03/09/23 Abby Higgins MD PhD [address] DIV IM MEDICAL ONCOLOGY, [facility] 7A, 7B, 7C [place] [address] Medical Oncologist/Hematologis t Medical Oncology 05/10/23 Adrian Martinez MD [address] DIV SURG TRANSPLANT, [facility] [address] [place] [address] Surgical Oncologist Surgical Oncology 05/28/23 Vera Pérez PA [address] [place] [phone] [place] [address] Physician Police Surgeon Colon and Rectal Surgery 09/13/23 Jim Frausto MD [address] [facility] [phone] [place] [address] Surgeon Colon and Rectal Surgery 11/21/23 documented as of this encounter
--- OUTSIDE RECORDS SUMMARY | 2025-04-17 10:33 | XMS_ITS | Encounter Summary ---
Author Organization [employer] Address [address] [place] [address] Care Team Providers Care Financial Planning Assistant Name Role Phone Kenton Ricks MD Primary Care Provider [phone] Encounter Details Date Type Department Care Team (Late st Contact Info) Description 09/30/2001 Outpatient [facility] [address] [place] [address]. [place] [address] Anika Rowan MD NO ADDRESS ON FILE Social History Tobacco Use Types Packs/Day Years Used Date Smoking Tobacco: Never Assessed Sex and Gender Information Value Date Recorded Sex Assigned at Not on file Legal Sex Male 4:35 AM ASSEMBLER DRY CELL AND BATTERY Gender Identity Not on file Sexual Orientation Not on file documented as of this encounter Plan of Treatment Not on file documented as of this encounter Visit Diagnoses Not on filedocumented in this encounter Care Teams Financial Planning Assistant Relationship Specialty Start Date End Date Kenton Ricks MD [address] [place] [id number] PCP - General Family Practice 11/15/18 documented as of this encounter
--- OUTSIDE RECORDS SUMMARY | 2025-04-17 10:33 | XMS_ITS | Encounter Summary ---
Author Organization [facility] Address [address] [place] [address] Phone Care Team Providers Care Medical Laboratory Manager Name Role Phone Kenton Ricks MD Primary Care Provider + [phone] Kenton Ricks MD Primary Care Provider + [phone] Pebbles Nelson MD Unavailable [phone] Aylin Russ MD Unavailable [phone] Maricruz Ramirez NP Unavailable [phone] Joanne Lopez RN Unavailable Padmini Leatha Carter Unavailable Unavailable Ben Chahal MD PhD Unavailable [phone] Chace Oliva MD Unavailable [phone] Giovanna Alexis MD Unavailable Taisha Suarez RN Unavailable Unavaila Sandra Aguirre MD Unavailable [phone] Abby Higgins MD PhD Unavailable + Adrian Martinez MD Unavailable Vera Pérez Unavailable [phone] Jim Frausto MD Unavailable [phone] Анна Robert RN Unavailable [phone] Encounter Details Date Type Department Care Team (Late st Contact Info) Description 02/25/2014 Orders Only [facility] Provider, MD Max [address] [place] [address] Social History Tobacco Use Types Packs/Day Years Used Date Smoking Tobacco: Never Assessed Sex and Gender Information Value Date Recorded Sex Assigned at Not on file Legal Sex Male 12:58 AM COIN BOX INSPECTOR Gender Identity Male 11/11/2018 10:31 AM CDT Sexual Orientation Straight 06/09/2019 5: 34 PM COIN BOX INSPECTOR documented as of this encounter Plan of Treatment Upcoming Encounters Date Type Department Care Team (Late st Contact Info) Description 04/20/2025 Orders Only [facility] Medicine Oncology [address] [facility] [address] [place] [address] Tory Nye Pancreatic adenocarcinoma (HCC) (Primary Dx) [...] COVID: Suspected 06/07/2023 06/07/2023 06/07/2023 12:46 PM COIN BOX INSPECTOR COVID19 06/07/2023 06/07/2023 06/22/2023 3:06 AM COIN BOX INSPECTOR COVID: Recovered Comment:Added based on recent COVID infection. 06/22/2023 06/22/2023 09/20/2023 3:05 AM C DT COVID: Suspected 07/24/2023 07/24/2023 07/24/2023 3:53 PM COIN BOX INSPECTOR Diarrhea 07/30/2023 07/30/2023 08/13/2023 3:05 AM COIN BOX INSPECTOR COVID: Suspected 08/30/2023 08/30/2023 08/30/2023 4:52 PM COIN BOX INSPECTOR COVID: Suspected 10/12/2023 10/12/2023 10/12/2023 7:57 PM CDT Rhino/Enterovirus 10/12/2023 10/12/2023 10/26/2023 3:05 AM CDT COVID: Suspected 07/10/2024 07/10/2024 07/10/2024 4:53 PM COIN BOX INSPECTOR COVID: Suspected Comment:07/16/2024 IP Review: no outstanding test, last RPP negative. Mary Tiwari RN 07/16/2024 07/16/2024 10:51 AM COIN BOX INSPECTOR COVID19 Comment:07/16/2024 IP Review: added by RN, RPP negative. Mary Tiwari RN 07/16/2024 07/16/2024 07/16/2024 10:51 AM COIN BOX INSPECTOR MRSA Comment:nasalMRSA Isolation Prison 09/03/24 07/16/2024 08/15/2024 09/03/2024 6:[address] C. difficile suspected 07/19/2024 07/19/202407/19 2:34 PM COIN BOX INSPECTOR COVID: Suspected 07/23/2024 07/23/2024 07/23/2024 11:28 PM COIN BOX INSPECTOR C. difficile suspected 07/23/2024 07/24/202407/24 10:31 AM COIN BOX INSPECTOR Norovirus suspected 07/23/2024 07/24/2024 07/24/19 9:37 AM COIN BOX INSPECTOR VRE Comment:Contact Precautions (gown and gloves) - not eligible for IP review until 6 months after positive culture - Jerod QURESHI, CONY 10/01/24 07/24/2024 09/20/2024 03/19/2025 7:26 PM C DT COVID: Suspected 08/09/2024 08/09/2024 08/09/2024 9:40 AM COIN BOX INSPECTOR Influenza, adult Comment:08/26/2024 IP Review: pt afebrile but on antipyretics. Needs 24 hours off antipyretics and symptoms significantly improved/resolved in order for isolation to be discontinued. Mary Tiwari RN 08/15/2024 08/15/2024 08/29/2024 3:06 AM COIN BOX INSPECTOR Coronavirus, droplet 08/15/2024 08/15/2024 025 3:06 AM COIN BOX INSPECTOR C. difficile suspected 09/19/2024 09/19/202409/20 3:05 [...] documented as of this encounter Care Teams Medical Laboratory Manager Relationship Specialty Start Date End Date Kenton Ricks MD PCP - General 08/14/16 Kenton Ricks MD PCP - General 09/17/08 08/13/16 Pebbles Nelson MD Referring Physician Cardiology 02/07/19 Aylin Russ MD [address] [place] [address] Referring Physician Pulmonary Disease 02/07/19 Maricruz Ramirez NP [address] [place] [address] Nurse Practitioner Cardiovascular Disease 09/25/21 Joanne Lopez, RN Registered Nurse Pulmonary Disease 08/24/22 Leatha Cristina RMA Surgical Prehabilitation and Readiness (SPAR) Coordinator 09/01/22 01/02/23 Ben Chahal MD PhD [address] [facility] [address] 2 [place] [address] Medical Oncologist/Filler Mixer Medical Oncology 10/05/22 Chace Oliva MD [address] [place] [address] Consulting Physician Infectious Diseases 12/22/2204/01 Giovanna Alexis MD [address] [place] [address] Radiation Oncologist Radiation Oncology 03/09/23 Taisha Suarez, roto rooter operator Prehabilitation and Readiness (SPAR) Coordinator General Surgery 03/20/23 04/10/23 Sandra Ma MD [address] DIV IM MEDICAL ONCOLOGY, [address], 7B, [address] [place] [address] Consulting Physician Medical Oncology 04/25/23 05/09/23 Abby Higgins MD PhD [address] DIV IM MEDICAL ONCOLOGY, [address], 7B, [address] [place] [address] Medical Oncologist/Filler Mixer Medical Oncology 05/10/23 Adrian Martinez MD [address] DIV SURG TRANSPLANT, [address] [place] [address] Surgical Oncologist Surgical Oncology 05/28/23 Vera Pérez PA [address] [place] [phone] [place] [address] Physician Work And Family Life Consultant Colon and Rectal Surgery 09/13/23 Jim Frausto MD [address] [place] [phone] [place] [address] Surgeon Colon and Rectal Surgery 11/21/23 Анна Robert RN [address] [facility] [address] [place] [address] SHOP Outpatient Brazer Helper Induction 09/29/24 10/01/24 documented as of this encounter
--- OUTSIDE RECORDS SUMMARY | 2025-04-17 10:33 | XMS_ITS | Encounter Summary ---
Author Organization [facility] Address [address] [place] [address] Phone Care Team Providers Care Parking Lot Signaler Name Role Phone Kenton Ricks MD Primary Care Provider + [phone] Pebbles Nelson MD Unavailable [phone] Aylin Russ MD Unavailable [phone] Maricruz Ramirez NP Unavailable [phone] Joanne Lopez RN Unavailable Padmini Ben Walker MD PhD Unavailable [phone] Giovanna Alexis MD Unavailable Abby Higgins MD PhD Unavailable + Adrian Martinez MD Unavailable [phone] Vera Pérez Unavailable [phone] Jim Frausto MD Unavailable [phone] Encounter Details Date Type Department Care Team (Late st Contact Info) Description 03/26/2025 Telephone [facility] Medicine Cardiology [address] [facility] 8th [place] [address] [place] [address] Nicki Conroy Social History Tobacco Use Types [...] do you attend up health system or scientology services? More than 4 times per year 01/13/2025 Do you belong to any clubs o r organizations such as rastafari groups, unions, fraternal or athletic groups, or [...] Date Recorded PHQ-2 Total Score 1 09/21/2024 [facility] - Occupational Stress Questionnaire Answer Date Recorded [...] place to sleep or slept in a intermediate (including now)? No 11/12/2023 PHQ-9 Answer Date [...] any time in the past 12 m [facility], were you homeless or living in a intermediate (including now)? No 01/13/2025 Social Connection and [...] any clubs o r organizations such as rastafari groups, unions, fraternal or athletic groups, or [...] any time in the past 12 m [facility], were you homeless or living in a intermediate (including now)? No 03/03/2025 [facility] Utilities Answer Date Recorded In the past 12 months has th e [employer], gas, oil, or water [employer] threatened to shut off services in your home? No 03/03/2025 Personal Safety Answer Date Recorded Have you ever been in or are you currently in a harmful physical or emotional relationship or is someone making you feel afraid or unsafe? Denies 03/01/2025 Sex and Gender Information Value Date Recorded Sex Assigned at Not on file Legal Sex Male 12:58 AM PUBLIC RELATIONS SUPERVISOR Gender Identity Male 11/11/2018 10:31 AM CDT Sexual Orientation Straight 06/09/2019 5: 34 PM PUBLIC RELATIONS SUPERVISOR documented as of this encounter Miscellaneous Notes [...] documented in this encounter Plan of Treatment Upcoming Encounters Date Type Department Care Team (Late st Contact Info) Description 04/20/2025 Orders Only [facility] Medicine Oncology [address] [facility] [address] [place] [phone] Tory Nye Pancreatic adenocarcinoma (HCC) (Primary Dx) documented as of this encounter Visit Diagnoses Not on filedocumented in this encounter Additional Health Concerns Infection Onset Date Last Indicated Resolved Time COVID: Suspected 03/31/2025 03/31/2025 03/31/2025 3:56 PM CDT documented as of this encounter Care Teams Parking Lot Signaler Relationship Specialty Start Date End Date Kenton Ricks MD PCP - General 08/14/16 Pebbles Nelson MD Referring Physician Cardiology 02/07/19 Aylin Russ MD [address] [facility] [address] [place] [address] Referring Physician Pulmonary Disease 02/07/19 Maricruz Ramirez, COLOR ARTIST [address] [place] [address] Nurse Practitioner Cardiovascular Disease 09/25/21 Joanne Lopez, CONY Registered Nurse Pulmonary Disease 08/24/22 Ben Chahal MD PhD [address] [place] [address] [address] [place] [address] Medical Oncologist/Hematologis t Medical Oncology 10/05/22 Giovanna Alexis MD [address] [place] [address] # [address] [place] [address] Radiation Oncologist Radiation Oncology 03/09/23 Abby Higgins MD PhD [address] DIV IM MEDICAL ONCOLOGY, [facility] 7A, 7B, [address] [place] [address] Medical Oncologist/Hematologis t Medical Oncology 05/10/23 Adrian Martinez MD [address] DIV SURG TRANSPLANT, [facility] [address] [place] [address] Surgical Oncologist Surgical Oncology 05/28/23 Vera Pérez PA [address] [place] [phone] [place] [address] Physician Risk Compliance Analyst Colon and Rectal Surgery 09/13/23 Jim Frausto MD [address] [facility] [phone] [place] [address] Surgeon Colon and Rectal Surgery 11/21/23 documented as of this encounter
--- OUTSIDE RECORDS SUMMARY | 2025-04-17 10:33 | XMS_ITS | Encounter Summary ---
Author Organization [employer] Address [address] [place] [address] Care Team Providers Care Supervisor Testing Name Role Phone Kenton Ricks MD Primary Care Provider [phone] Encounter Details Date Type Department Care Team (Late st Contact Info) Description 07/23/2001 Outpatient Historical Division of Neurology [address] [address] Shabbir Villavicencio MD [address] [facility] [facility] [address] [place] [address] Social History Tobacco Use Types Packs/Day Years Used Date Smoking Tobacco: Never Assessed Sex and Gender Information Value Date Recorded Sex Assigned at Not on file Legal Sex Male 4:35 AM IVORY POLISHER Gender Identity Not on file Sexual Orientation Not on file documented as of this encounter Plan of Treatment Not on file documented as of this encounter Visit Diagnoses Not on filedocumented in this encounter Care Teams Supervisor Testing Relationship Specialty Start Date End Date Kenton Ricks MD [address] [place] [address] PCP - General Family Practice 11/15/18 documented as of this encounter
--- OUTSIDE RECORDS SUMMARY | 2025-04-17 10:33 | XMS_ITS | Encounter Summary ---
Author Organization [employer] Address [address] [place] [address] Care Team Providers Care Health Clinician Name Role Phone Kenton Ricks MD Primary Care Provider [phone] Encounter Details Date Type Department Care Team (Latest Contact Info) Description 05/17/2001 Outpatient [facility] [address] [place] [place] [address] Kenyon Montenegro MD [address] [address] HEADACHE (Primary Dx) Social History Tobacco Use Types Packs/Day Years Used Date Smoking Tobacco: Never Assessed Sex and Gender Information Value Date Recorded Sex Assigned at Not on file Legal Sex Male 4:35 AM MANAGER [employer] CONTENT MANAGEMENT Gender Identity Not on file Sexual Orientation Not on file documented as of this encounter Plan of Treatment Not on file documented as of this encounter Visit Diagnoses Diagnosis Headache(784.0)- Primary Headache documented in this encounter Care Teams Health Clinician Relationship Specialty Start Date End Date Kenton Ricks MD [address] [place] [address] PCP - General Family Practice 11/15/18 documented as of this encounter
--- OUTSIDE RECORDS SUMMARY | 2025-04-17 10:33 | XMS_ITS | Encounter Summary ---
Author Organization [facility] Address [address] [place] [address] Phone Care Team Providers Care Grocery Carrier Name Role Phone Kenton Ricks MD Primary Care Provider + [phone] Kenton Ricks MD Primary Care Provider + [phone] Pebbles Nelson MD Unavailable [phone] Aylin Russ MD Unavailable +[phone] Maricruz Ramirez NP Unavailable [phone] Joanne Lopez RN Unavailable Padmini Leatha Carter Unavailable Unavailable Ben Chahal MD PhD Unavailable [phone] Chace Oliva MD Unavailable [phone] Giovanna Alexis MD Unavailable Taisha Suarez RN Unavailable Unavaila Sandra Aguirre MD Unavailable +[phone] Abby Higgins MD PhD Unavailable + Adrian Martinez MD Unavailable [phone] Vera Pérez Unavailable Jim Frausto MD Unavailable [phone] Анна Robert RN Unavailable [phone] Encounter Details Date Type Department Care Team (Late st Contact Info) Description 03/14/2016 Orders Only [facility] CAR CLINCONV Provider, MD Max [address] [place] [address] Social History Tobacco Use Types Packs/Day Years Used Date Smoking Tobacco: Never Assessed Sex and Gender Information Value Date Recorded Sex Assigned at Not on file Legal Sex Male 12:58 AM STEAM SETTER Gender Identity Male 11/11/2018 10:31 AM CDT Sexual Orientation Straight 06/09/2019 5: 34 PM STEAM SETTER documented as of this encounter Plan of Treatment Upcoming Encounters Date Type Department Care Team (Late st Contact Info) Description 04/20/2025 Orders Only [facility] Medicine Oncology 10 [facility] [address] [place] [address] Tory Nye Pancreatic adenocarcinoma (HCC) (Primary Dx) [...] Suspected 06/07/2023 06/07/2023 06/07/2023 12:46 PM STEAM SETTER COVID19 06/07/2023 06/07/2023 06/22/2023 3:06 AM STEAM SETTER COVID: Recovered Comment:Added based on recent COVID infection. 06/22/2023 06/22/2023 09/20/2023 3:05 AM C DT COVID: Suspected 07/24/2023 07/24/2023 07/24/2023 3:53 PM STEAM SETTER Diarrhea 07/30/2023 07/30/2023 08/13/2023 3:05 AM STEAM SETTER COVID: Suspected 08/30/2023 08/30/2023 08/30/2023 4:52 PM STEAM SETTER COVID: Suspected 10/12/2023 10/12/2023 10/12/2023 7:57 PM CDT Rhino/Enterovirus 10/12/2023 10/12/2023 10/26/2023 3:05 AM CDT COVID: Suspected 07/10/2024 07/10/2024 07/10/2024 4:53 PM STEAM SETTER COVID: Suspected Comment:07/16/2024 IP Review: no outstanding test, last RPP negative. Mary Tiwari RN 07/16/2024 07/16/2024 10:51 AM STEAM SETTER COVID19 Comment:07/16/2024 IP Review: added by RN, RPP negative. Mary Tiwari RN 07/16/2024 07/16/2024 07/16/2024 10:51 AM STEAM SETTER MRSA Comment:nasalMRSA Isolation [facility] 09/03/24 07/16/2024 08/15/2024 09/03/2024 6:[address] C. difficile suspected 07/19/2024 07/19/202407/19 2:34 PM STEAM SETTER COVID: Suspected 07/23/2024 07/23/2024 07/23/2024 11:28 PM STEAM SETTER C. difficile suspected 07/23/2024 07/24/202407/24 10:31 AM STEAM SETTER Norovirus suspected 07/23/2024 07/24/2024 07/24/19 9:37 AM STEAM SETTER VRE Comment:Contact Precautions (gown and gloves) - not eligible for IP review until 6 months after positive culture - Jerod QURESHI, CONY 10/01/24 07/24/2024 09/20/2024 03/19/2025 7:26 PM C DT COVID: Suspected 08/09/2024 08/09/2024 08/09/2024 9:40 AM STEAM SETTER Influenza, adult Comment:08/26/2024 IP Review: pt afebrile but on antipyretics. Needs 24 hours off antipyretics and symptoms significantly improved/resolved in order for isolation to be discontinued. Mary Tiwari RN 08/15/2024 08/15/2024 08/29/2024 3:06 AM STEAM SETTER Coronavirus, droplet 08/15/2024 08/15/2024 025 3:06 AM STEAM SETTER C. difficile suspected 09/19/2024 09/19/202409/20 3:05 [...] documented as of this encounter Care Teams Grocery Carrier Relationship Specialty Start Date End Date Kenton Ricks MD PCP - General 08/14/16 Kneton Ricks MD PCP - General 09/17/08 08/13/16 Pebbles Nelson MD Referring Physician Cardiology 02/07/19 Aylin Russ MD [address] [place] [address] Referring Physician Pulmonary Disease 02/07/19 Maricruz Ramirez NP [address] [place] [address] Nurse Practitioner Cardiovascular Disease 09/25/21 Joanne Lopez, RN Registered Nurse Pulmonary Disease 08/24/22 Leatha Cristina RMA Surgical Prehabilitation and Readiness (SPAR) Coordinator 09/01/22 01/02/23 Ben Chahal MD PhD 10 [facility] [address] [place] [address] Medical Oncologist/Battery Plate Remover Medical Oncology 10/05/22 Chace Oliva MD [address] [place] [address] Consulting Physician Infectious Diseases 12/22/2204/01 Giovanna Alexis MD [address] [place] [address] Radiation Oncologist Radiation Oncology 03/09/23 Taisha Suarez, sr. vendor management associate Prehabilitation and Readiness (SPAR) Coordinator General Surgery 03/20/23 04/10/23 Sandra Ma MD [address] DIV IM MEDICAL ONCOLOGY, [address], [address]B, [address] [place] [address] Consulting Physician Medical Oncology 04/25/23 05/09/23 Abby Higgins MD PhD [address] DIV IM MEDICAL ONCOLOGY, [address], 7B, [address] [place] [address] Medical Oncologist/Battery Plate Remover Medical Oncology 05/10/23 Adrian Martinez MD [address] DIV SURG TRANSPLANT, [address] [place] [address] Surgical Oncologist Surgical Oncology 05/28/23 Vera Pérez PA [address] [place] [phone] [place] [address] Physician Head Packager Colon and Rectal Surgery 09/13/23 Jim Frausto MD [address] [facility] [phone] [place] [address] Surgeon Colon and Rectal Surgery 11/21/23 Анна Robert RN [address] [place] [address] SHOP Outpatient Security Police Officer 09/29/24 10/01/24 documented as of this encounter
--- OUTSIDE RECORDS SUMMARY | 2025-04-17 10:33 | XMS_ITS | Encounter Summary ---
Author Organization [facility] Address [address] [place] [address] Phone Care Team Providers Care Rn Referral Name Role Phone Kenton Ricks MD Primary Care Provider + [phone] Kenton Ricks MD Primary Care Provider + [phone] Pebbles Nelson MD Unavailable [phone] Aylin Russ MD Unavailable [phone] Maricruz Ramirez NP Unavailable [phone] Joanne Lopez RN Unavailable Padmini Leatha Carter Unavailable Unavailable Ben Chahal MD PhD Unavailable [phone] Chace Oliva MD Unavailable [phone] Giovanna Alexis MD Unavailable Taisha Suarez RN Unavailable Unavaila Sandra Aguirre MD Unavailable [phone] Abby Higgins MD PhD Unavailable + Adrian Martinez MD Unavailable Vera Pérez Unavailable Jim Frausto MD Unavailable Анна Robert RN Unavailable [phone] Encounter Details Date Type Department Care Team (Late st Contact Info) Description 02/20/2014 Orders Only [facility] Provider, MD Max [address] [place] [address] Social History Tobacco Use Types Packs/Day Years Used Date Smoking Tobacco: Never Assessed Sex and Gender Information Value Date Recorded Sex Assigned at Not on file Legal Sex Male 12:58 AM BASEBALL HAND SEWER Gender Identity Male 11/11/2018 10:31 AM CDT Sexual Orientation Straight 06/09/2019 5: 34 PM BASEBALL HAND SEWER documented as of this encounter Plan of Treatment Upcoming Encounters Date Type Department Care Team (Late st Contact Info) Description 04/20/2025 Orders Only [facility] Medicine Oncology 10 [facility] [address] [place] [address] Tory Nye Pancreatic adenocarcinoma (HCC) (Primary Dx) [...] COVID: Suspected 06/07/2023 06/07/2023 06/07/2023 12:46 PM BASEBALL HAND SEWER COVID19 06/07/2023 06/07/2023 06/22/2023 3:06 AM BASEBALL HAND SEWER COVID: Recovered Comment:Added based on recent COVID infection. 06/22/2023 06/22/2023 09/20/2023 3:05 AM C DT COVID: Suspected 07/24/2023 07/24/2023 07/24/2023 3:53 PM BASEBALL HAND SEWER Diarrhea 07/30/2023 07/30/2023 08/13/2023 3:05 AM BASEBALL HAND SEWER COVID: Suspected 08/30/2023 08/30/2023 08/30/2023 4:52 PM BASEBALL HAND SEWER COVID: Suspected 10/12/2023 10/12/2023 10/12/2023 7:57 PM CDT Rhino/Enterovirus 10/12/2023 10/12/2023 10/26/2023 3:05 AM CDT COVID: Suspected 07/10/2024 07/10/2024 07/10/2024 4:53 PM BASEBALL HAND SEWER COVID: Suspected Comment:07/16/2024 IP Review: no outstanding test, last RPP negative. Mary Tiwari RN 07/16/2024 07/16/2024 10:51 AM BASEBALL HAND SEWER COVID19 Comment:07/16/2024 IP Review: added by RN, RPP negative. Mary Tiwari RN 07/16/2024 07/16/2024 07/16/2024 10:51 AM BASEBALL HAND SEWER MRSA Comment:nasalMRSA [facility] 09/03/24 07/16/2024 08/15/2024 09/03/2024 6:[address] C. difficile suspected 07/19/2024 07/19/202407/19 2:34 PM BASEBALL HAND SEWER COVID: Suspected 07/23/2024 07/23/2024 07/23/2024 11:28 PM BASEBALL HAND SEWER C. difficile suspected 07/23/2024 07/24/202407/24 10:31 AM BASEBALL HAND SEWER Norovirus suspected 07/23/2024 07/24/2024 07/24/19 9:37 AM BASEBALL HAND SEWER VRE Comment:Contact Precautions (gown and gloves) - not eligible for IP review until 6 months after positive culture - Jerod QURESHI, CONY 10/01/24 07/24/2024 09/20/2024 03/19/2025 7:26 PM C DT COVID: Suspected 08/09/2024 08/09/2024 08/09/2024 9:40 AM BASEBALL HAND SEWER Influenza, adult Comment:08/26/2024 IP Review: pt afebrile but on antipyretics. Needs 24 hours off antipyretics and symptoms significantly improved/resolved in order for isolation to be discontinued. Mary Tiwari RN 08/15/2024 08/15/2024 08/29/2024 3:06 AM BASEBALL HAND SEWER Coronavirus, droplet 08/15/2024 08/15/2024 025 3:06 AM BASEBALL HAND SEWER C. difficile suspected 09/19/2024 09/19/202409/20 3:05 AM [...] as of this encounter Care Teams Rn Referral Relationship Specialty Start Date End Date Kenton Ricks MD PCP - General 08/14/16 Kenton Ricks MD PCP - General 09/17/08 08/13/16 Pebbles Nelson MD Referring Physician Cardiology 02/07/19 Aylin Russ MD [address] [place] [address] Referring Physician Pulmonary Disease 02/07/19 Maricruz Ramirez NP [address] [place] [address] Nurse Practitioner Cardiovascular Disease 09/25/21 Joanne Lopez, RN Registered Nurse Pulmonary Disease 08/24/22 Leatha Cristina RMA Surgical Prehabilitation and Readiness (SPAR) Coordinator 09/01/22 01/02/23 Ben Chahal MD PhD 10 [facility] [address] DIV [place] [address] Medical Oncologist/Fire Suppression Captain Medical Oncology 10/05/22 Chace Oliva MD [address] [place] [address] Consulting Physician Infectious Diseases 12/22/2204/01 Giovanna Alexis MD [address] [place] [address] Radiation Oncologist Radiation Oncology 03/09/23 Taisha Suarez, edging supervisor Prehabilitation and Readiness (SPAR) Coordinator General Surgery 03/20/23 04/10/23 Sandra Ma MD [address] DIV IM MEDICAL ONCOLOGY, [address], 7B, [address] [place] [address] Consulting Physician Medical Oncology 04/25/23 05/09/23 Abby Higgins MD PhD [address] DIV IM MEDICAL ONCOLOGY, [address]A, [address]B, [address] [place] [address] Medical Oncologist/Fire Suppression Captain Medical Oncology 05/10/23 Adrian Martinez MD [address] DIV SURG TRANSPLANT, [address] [place] [address] Surgical Oncologist Surgical Oncology 05/28/23 Vera Pérez PA [address] [place] [phone] [place] [address] Physician Care Associate Colon and Rectal Surgery 09/13/23 Jim Frausto MD [address] [facility] [phone] [place] [address] Surgeon Colon and Rectal Surgery 11/21/23 Анна Robert RN [address] [place] [address] SHOP Outpatient Tempering Kiln Tender 09/29/24 10/01/24 documented as of this encounter
--- OUTSIDE RECORDS SUMMARY | 2025-04-17 10:33 | XMS_ITS | Encounter Summary ---
Author Organization [facility] Address [address] [place] [address] Phone Care Team Providers Care Export Freight Manager Name Role Phone Kenton Ricks MD Primary Care Provider + [phone] Kenton Ricks MD Primary Care Provider + [phone] Pebbles Nelson MD Unavailable [phone] Aylin Russ MD Unavailable +[phone] Maricruz Ramirez NP Unavailable [phone] Joanne Lopez RN Unavailable Padmini Leatha Carter Unavailable Unavailable Ben Chahal MD PhD Unavailable +[phone] Chace Oliva MD Unavailable +[phone] Giovanna Alexis MD Unavailable Taisha Suarez RN Unavailable Unavaila Sandra Aguirre MD Unavailable +[phone] Abby Higgins MD PhD Unavailable + Adrian Martinez MD Unavailable Vera Pérez Unavailable [phone] Jim Frausto MD Unavailable Анна Robert RN Unavailable Encounter Details Date Type Department Care Team (Late st Contact Info) Description 05/08/2014 Orders Only [facility]IN[facility] Provider, MD Max [address] [place] [address] Social History Tobacco Use Types Packs/Day Years Used Date Smoking Tobacco: Never Assessed Sex and Gender Information Value Date Recorded Sex Assigned at Not on file Legal Sex Male 12:58 AM FLYING INSTRUCTOR Gender Identity Male 11/11/2018 10:31 AM CDT Sexual Orientation Straight 06/09/2019 5: 34 PM FLYING INSTRUCTOR documented as of this encounter Plan of Treatment Upcoming Encounters Date Type Department Care Team (Late st Contact Info) Description 04/20/2025 Orders Only [facility] Medicine Oncology 10 [facility] [address] [place] [address] Tory Nye Pancreatic adenocarcinoma (HCC) (Primary Dx) [...] COVID: Suspected 06/07/2023 06/07/2023 06/07/2023 12:46 PM FLYING INSTRUCTOR COVID19 06/07/2023 06/07/2023 06/22/2023 3:06 AM FLYING INSTRUCTOR COVID: Recovered Comment:Added based on recent COVID infection. 06/22/2023 06/22/2023 09/20/2023 3:05 AM C DT COVID: Suspected 07/24/2023 07/24/2023 07/24/2023 3:53 PM FLYING INSTRUCTOR Diarrhea 07/30/2023 07/30/2023 08/13/2023 3:05 AM FLYING INSTRUCTOR COVID: Suspected 08/30/2023 08/30/2023 08/30/2023 4:52 PM FLYING INSTRUCTOR COVID: Suspected 10/12/2023 10/12/2023 10/12/2023 7:57 PM CDT Rhino/Enterovirus 10/12/2023 10/12/2023 10/26/2023 3:05 AM CDT COVID: Suspected 07/10/2024 07/10/2024 07/10/2024 4:53 PM FLYING INSTRUCTOR COVID: Suspected Comment:07/16/2024 IP Review: no outstanding test, last RPP negative. Mary Tiwari RN 07/16/2024 07/16/2024 10:51 AM FLYING INSTRUCTOR COVID19 Comment:07/16/2024 IP Review: added by RN, RPP negative. Mary Tiwari RN 07/16/2024 07/16/2024 07/16/2024 10:51 AM FLYING INSTRUCTOR MRSA Comment:nasalMRSA Isolation Shelter 09/03/24 07/16/2024 08/15/2024 09/03/2024 6:[address] C. difficile suspected 07/19/2024 07/19/202407/19 2:34 PM FLYING INSTRUCTOR COVID: Suspected 07/23/2024 07/23/2024 07/23/2024 11:28 PM FLYING INSTRUCTOR C. difficile suspected 07/23/2024 07/24/202407/24 10:31 AM FLYING INSTRUCTOR Norovirus suspected 07/23/2024 07/24/2024 07/24/19 9:37 AM FLYING INSTRUCTOR VRE Comment:Contact Precautions (gown and gloves) - not eligible for IP review until 6 months after positive culture - Jerod QURESHI, CONY 10/01/24 07/24/2024 09/20/2024 03/19/2025 7:26 PM C DT COVID: Suspected 08/09/2024 08/09/2024 08/09/2024 9:40 AM FLYING INSTRUCTOR Influenza, adult Comment:08/26/2024 IP Review: pt afebrile but on antipyretics. Needs 24 hours off antipyretics and symptoms significantly improved/resolved in order for isolation to be discontinued. Mary Tiwari RN 08/15/2024 08/15/2024 08/29/2024 3:06 AM FLYING INSTRUCTOR Coronavirus, droplet 08/15/2024 08/15/2024 025 3:06 AM FLYING INSTRUCTOR C. difficile suspected 09/19/2024 09/19/202409/20 3:05 [...] documented as of this encounter Care Teams Export Freight Manager Relationship Specialty Start Date End Date Kenton Ricks MD PCP - General 08/14/16 Kenton Ricks MD PCP - General 09/17/08 08/13/16 Pebbles Nelson MD Referring Physician Cardiology 02/07/19 Aylin Russ MD [address] [place] [address] Referring Physician Pulmonary Disease 02/07/19 Maricruz Ramirez NP [address] [place] [address] Nurse Practitioner Cardiovascular Disease 09/25/21 Joanne Lopez, RN Registered Nurse Pulmonary Disease 08/24/22 Leatha Cristina RMA Surgical Prehabilitation and Readiness (SPAR) Coordinator 09/01/22 01/02/23 Ben Chahal MD PhD 10 [facility] [address] 2 [place] [address] Medical Oncologist/Multiple Games Dealer Medical Oncology 10/05/22 Chace Oliva MD [address] [place] [address] Consulting Physician Infectious Diseases 12/22/2204/01 Giovanna Alexis MD [address] [place] [address] Radiation Oncologist Radiation Oncology 03/09/23 Taisha Suarez, airplane cover maker Prehabilitation and Readiness (SPAR) Coordinator General Surgery 03/20/23 04/10/23 Sandra Ma MD [address] DIV IM MEDICAL ONCOLOGY, [address], [address]B, [address] [place] [address] Consulting Physician Medical Oncology 04/25/23 05/09/23 Abby Higgins MD PhD [address] DIV IM MEDICAL ONCOLOGY, [address], 7B, [address] [place] [address] Medical Oncologist/Multiple Games Dealer Medical Oncology 05/10/23 Adrian Martinez MD [address] DIV SURG TRANSPLANT, [address] [place] [address] Surgical Oncologist Surgical Oncology 05/28/23 Vera Pérez PA [address] [place] [id number] [place] [address] Physician Code Enforcement Inspector Colon and Rectal Surgery 09/13/23 Jim Frausto MD [address] [facility] [phone] [place] [address] Surgeon Colon and Rectal Surgery 11/21/23 Анна Robert RN [address] [place] [address] SHOP Outpatient Senior Examiner 09/29/24 10/01/24 documented as of this encounter
--- OUTSIDE RECORDS SUMMARY | 2025-04-17 10:33 | XMS_ITS | Encounter Summary ---
Author Organization [facility] Address [address] [place] [address] Care Team Providers Care Russian Teacher Name Role Phone Kenton Ricks MD Primary Care Provider [phone] Encounter Details Date Type Department Care Team (Late st Contact Info) Description 10/06/2001 Outpatient [facility] [address] [place] [address]. [place] [address] Anika Rowan MD NO ADDRESS ON FILE Social History Tobacco Use Types Packs/Day Years Used Date Smoking Tobacco: Never Assessed Sex and Gender Information Value Date Recorded Sex Assigned at Not on file Legal Sex Male 4:35 AM BELT CLEANER Gender Identity Not on file Sexual Orientation Not on file documented as of this encounter Plan of Treatment Not on file documented as of this encounter Visit Diagnoses Not on filedocumented in this encounter Care Teams Russian Teacher Relationship Specialty Start Date End Date Kenton Ricks MD [address] [place] [id number] PCP - General Family Practice 11/15/18 documented as of this encounter
--- OUTSIDE RECORDS SUMMARY | 2025-04-17 10:33 | XMS_ITS ---
Author Organization [facility] Address [address] [place] [address] Care Team Providers Care Adjunct Faculty Mathematics Department Name Role Phone Kenton Ricks MD Primary Care Provider + [phone] Pebbles Nelson MD Unavailable [phone] Aylin Russ MD Unavailable [phone] Maricruz Ramirez NP Unavailable [phone] Joanne Lopez RN Unavailable Padmini Ben Walker MD PhD Unavailable [phone] Giovanna Alexis MD Unavailable Abby Higgins MD PhD Unavailable + Adrian Martinez MD Unavailable [phone] Vera Pérez Unavailable [phone] Jim Frausto MD Unavailable [phone] Active Problems Problem Noted Date Diagnosed Date [...] 08/23/2024 Assessment & Plan (08/26/2024 3:51 PM PHOTOGRAPHIC ENGINEER): The patient reported left eye pain with [...] 08/11/2024 Assessment & Plan (08/26/2024 4:05 PM PHOTOGRAPHIC ENGINEER): Patient developed hematemesis on 08/11 with hypotension [...] 08/04/2024 Assessment & Plan (08/22/2024 10:54 PM PHOTOGRAPHIC ENGINEER): Started allopurinol this admission Moderate protein-calorie malnutrition [...] PPI Assessment & Plan (08/11/2024 8:44 PM PHOTOGRAPHIC ENGINEER): - Recent admission 07/10-07/20 for abd pain. [...] 07/16/2024 Assessment & Plan (07/20/2024 11:28 AM PHOTOGRAPHIC ENGINEER): - Resulted with Nystatin Anal fissure 11/21/2023 Assessment & Plan (01/15/2025 11:15 AM CDT): -Continue prn lidocaine AL and nifedipine ointment Assessment & Plan (01/14/2025 11:42 AM CDT): -Continue prn lidocaine AL and nifedipine ointment Assessment & Plan (01/13/2025 12:04 PM CDT): -Continue prn lidocaine AL and nifedipine ointment Assessment & Plan (01/13/2025 1:06 AM CDT): -Continue prn lidocaine AL and nifedipine ointment Assessment & Plan (12/10/2024 [...] topical CCB - cannot obtain her at [facility] Assessment & Plan (11/22/2024 12:07 PM CDT): - psyllium qAM, added miralax daily - Added lidocaine jelly qid prn - Sitz baths BID - Will try to start topical CCB - cannot obtain her at [facility] Assessment & Plan (11/21/2024 11:50 AM CDT): - psyllium qAM, added miralax daily - Added lidocaine jelly qid prn - Sitz baths BID - Will try to start topical CCB - cannot obtain her at [facility] Assessment & Plan (11/20/2024 11:11 AM [...] Plan (11/24/2024 9:17 AM CDT): -CPAP at [facility] Assessment & Plan (11/23/2024 9:48 AM CDT): -CPAP at [facility] Assessment & Plan (11/22/2024 12:07 PM CDT): -CPAP at [facility] Assessment & Plan (11/21/2024 11:50 AM CDT): -CPAP at [facility] Assessment & Plan (11/20/2024 11:11 AM CDT): -CPAP at [facility] Assessment & Plan (11/20/2024 1:34 AM CDT): -CPAP at [facility] Assessment & Plan (10/15/2023 2:34 PM [...] albuterol Assessment & Plan (08/26/2024 4:00 PM PHOTOGRAPHIC ENGINEER): Cont. breo ellipta, prn albuterol Iron deficiency [...] 07/25/2023 Assessment & Plan (07/26/2023 12:35 PM PHOTOGRAPHIC ENGINEER): - Likely multifactorial 2/2 malignancy, recent whipple, chemotherapy, and pain - Very poor PO intake - RD c/s - Started Mirtazapine - Dietary supplementation - Increased Creon as above Malaise 07/24/2023 Assessment & Plan (07/25/2023 2:16 PM PHOTOGRAPHIC ENGINEER): - RVP negative - Improving Kidney lesion 07/21/2023 Assessment & Plan (07/25/2023 2:21 PM PHOTOGRAPHIC ENGINEER): - Left renal cyst noted since at [...] prn Assessment & Plan (07/26/2023 12:33 PM PHOTOGRAPHIC ENGINEER): - Acute on chronic epigastric pain following [...] 07/09/2023 Assessment & Plan (07/24/2023 5:22 PM PHOTOGRAPHIC ENGINEER): - Replace per protocol Class 1 obesity due to exces s calories with serious comorbidity and body mass index (BMI) of 34.0 to 34.9 in adult 06/01/2023 H/O Whipple procedure 05/30/2023 Gastrointestinal hemorrhage 05/30/2023 Assessment & Plan (07/14/2024 12:30 PM PHOTOGRAPHIC ENGINEER): History of Postoperative GI bleed. EGD 05/09/23 [...] 02/05/2023 Assessment & Plan (07/21/2023 2:06 AM PHOTOGRAPHIC ENGINEER): Also has Hx of prostate cancer s/p prostatectomy. Takes gemtesa at home which is not on formulary - continue home oxybutynin and flomax Assessment & Plan (02/09/2023 3:46 PM CDT): Patient presented w/ low urine output and asymptomatic urinary retention, required straight cath in [facility], currently voiding and emptying [...] Febrile again to 101 on night of 9/1. -CT A/P revealed no evidence of inflammatory [...] 11/21/2022 Assessment & Plan (08/26/2024 4:05 PM PHOTOGRAPHIC ENGINEER): The patient presented with elevated alkaline phosphatase [...] is scheduled MRI in December at [facility] (requires cardiac monitoring due to ICD) - he is hoping to have this done sooner. Ileus 11/21/2022 Assessment & Plan (07/20/2024 11:29 AM PHOTOGRAPHIC ENGINEER): - KUB done 07/13 showing ileus without [...] 10/08/2022 Assessment & Plan (07/21/2023 2:04 AM PHOTOGRAPHIC ENGINEER): Diagnosed in August 2022, now s/p course of Eliquis. Presented with trace b/l lower ext edema, b/l erythema and mild tenderness which per patient is increased from baseline. Had similar presentation last hospitalization and LE duplex 06/07 was negative - CTM and consider rescanning if persistent Assessment & Plan (06/09/2023 4:47 PM PHOTOGRAPHIC ENGINEER): Hx of DVT in August 2022, he [...] of mets or infection and transferred from [facility] to [facility]. 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 - CT neck/soft tissue with contrast: [...] to ICD. Plan to transfer to [facility] for further evaluation w/ possible MRI brain and LP. Rash 09/23/2022 Assessment & Plan (06/12/2023 3:50 PM PHOTOGRAPHIC ENGINEER): - contact dermatitis? Not concerned about drug [...] melisa skin necrosis. - transfer to [facility] for derm eval Anemia 09/22/2022 Assessment & Plan (07/26/2023 12:35 PM PHOTOGRAPHIC ENGINEER): Acute on chronic. 7.4 on admission. 5 [...] negative. Assessment & Plan (06/12/2023 3:46 PM PHOTOGRAPHIC ENGINEER): HGb 7, plt 94, wbc 1.4, abs [...] 09/22/2022 Assessment & Plan (07/26/2023 12:34 PM PHOTOGRAPHIC ENGINEER): Has Hx of ileus. On scheduled Linzess, Miralax and PRN Senna-Docusate at home. Patient states he's been having 4-5 soft stools daily - Increased Creon as above. Bowel regimen. Assessment & Plan (06/07/2023 11:26 PM PHOTOGRAPHIC ENGINEER): Continue home regimen of Linzess, Miralax and [...] (08/30/2022): Added automatically from request for surgery [id number] Assessment & Plan (10/15/2023 2:34 PM CDT): Hx of L axillary nodes on CT increased from prior study Should f/u with Dr. Chahal Assessment & Plan (10/13/2023 2:03 PM CDT): Hx of L axillary nodes on CT increased from prior study Should f/u with Dr. Chahal Assessment & Plan (07/26/2023 12:31 PM PHOTOGRAPHIC ENGINEER): - s/p whipple. Follows with Dr. Chahal [...] plan to hold of next cycle of [place]/Abraxane till infectious etiology is ruled out Assessment [...] plan to hold of next cycle of [place]/Abraxane till infectious etiology is ruled out Assessment [...] surveillance Assessment & Plan (08/26/2024 4:00 PM PHOTOGRAPHIC ENGINEER): s/p whipple with PV/SMV resection (04/2023) and neoadjuvant chemo (completed 08/2023). Most recent scan showed no evidence of disease recurrence Currently on surveillance with CA 19-[address] CAP every 3 months Assessment & Plan (07/10/2024 10:48 PM PHOTOGRAPHIC ENGINEER): Pancreatic cancer s/p Whipple with PV/SMV resection on 04/11/2023 s/p neoadjuvant tx, On surveillance OP follow up. Assessment & Plan (06/08/2023 5:32 PM PHOTOGRAPHIC ENGINEER): Pancreatic adenocarcinoma sp Whipple, now on Gemcitabine [...] 1 Assessment & Plan (08/25/2022 12:23 PM PHOTOGRAPHIC ENGINEER): Recurrent UTI followed by ID with scrotal [...] 06/09/2019 Assessment & Plan (06/09/2019 12:54 PM PHOTOGRAPHIC ENGINEER): He is agreeable to rescheduling the splenic [...] aldactone Assessment & Plan (07/14/2024 12:35 PM PHOTOGRAPHIC ENGINEER): HFpEF Euvolemic, normotensive On hold diuretics for now given pt NPO on IVF for ileus, will restart once able to take in po Assessment & Plan (06/11/2023 10:01 PM PHOTOGRAPHIC ENGINEER): ECHO 11/21 EF 69%, grade I diastolic [...] diet Assessment & Plan (08/24/2022 1:10 PM PHOTOGRAPHIC ENGINEER): Stable, continued torsemide, spironolactone Assessment & Plan (09/24/2021 12:42 AM CDT): Patient is feeling better. states legs have decreased by half. Continue with IV lasix. Continue to monitor Cr and lytes as we diurese. Holding torsemide. Continue aldactone with hold parameters. Assessment & Plan (08/18/2018 1:16 AM PHOTOGRAPHIC ENGINEER): Patient presented with increased shortness of breath [...] NPPV Assessment & Plan (08/26/2024 4:02 PM PHOTOGRAPHIC ENGINEER): continue nightly CPAP Assessment & Plan (07/21/2023 6:17 AM PHOTOGRAPHIC ENGINEER): Desaturations noted in the ED during sleep per on monitor while on RA (not recorded) - continue nightly BiPAP Assessment & Plan (06/07/2023 11:32 PM PHOTOGRAPHIC ENGINEER): Continue nightly BiPAP Assessment & Plan (03/18/2023 [...] 8:24 AM CDT): -resume home CPAP at [facility] Assessment & Plan (09/22/2022 3:17 AM CDT): -resume home CPAP at [facility] Assessment & Plan (08/24/2022 1:08 PM PHOTOGRAPHIC ENGINEER): - home CPAP machine use Assessment & Plan (09/24/2021 12:39 AM CDT): Patient has home NPPV which has been reordered. Assessment & Plan (08/18/2018 1:17 AM PHOTOGRAPHIC ENGINEER): Patient with a history of of bilateral diaphragmatic paralysis with central and obstructive sleep apnea. Restart CPAP Shortness of breath at rest 08/18/2018 Assessment & Plan (08/18/2018 1:27 AM PHOTOGRAPHIC ENGINEER): Patient with complex past medical history with [...] 07/26/2018 Assessment & Plan (08/26/2024 4:05 PM PHOTOGRAPHIC ENGINEER): H/o vtach s/p ICD 2013 EP consulted for MRCP earlier in admission. Patient's device is conditioned for MRI. Risk stratification: standard Assessment & Plan (07/10/2024 10:38 PM PHOTOGRAPHIC ENGINEER): History of ventricular tachycardia ICD in place Assessment & Plan (07/21/2023 2:11 PM PHOTOGRAPHIC ENGINEER): Follows with Dr. Nelson in EP for [...] Aug Assessment & Plan (06/11/2023 9:59 PM PHOTOGRAPHIC ENGINEER): Follows with Dr. Nelson in EP for history of VT s/p ICD. Denies any recent shocks, as per not there was unscheduled alarm this month due to RV lead impedance. Has outpatient appointment in August Outpatient follow up with EP Assessment & Plan (03/18/2023 1:23 AM CDT): Monitor. MRI conditional. If needs MRI, will need to go to [facility]. Assessment & Plan (02/05/2023 6:58 PM [...] ordered Assessment & Plan (08/18/2018 1:17 AM PHOTOGRAPHIC ENGINEER): Last device interrogation was in July of [...] s/p shoulder surgery. Follows with Dr. Russ ([facility]) as OP. On Symbicort at home. 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 Russ - c/w Breo-Ellipta Assessment & Plan (08/18/2018 1:17 AM PHOTOGRAPHIC ENGINEER): Continue with gabapentin Chronic heart failure with [...] PO Assessment & Plan (08/26/2024 4:06 PM PHOTOGRAPHIC ENGINEER): Volume down on admission due to diarrhea, now appear slightly volume up, likely I/s/o transfusions and held diuretics Continue to hold home torsemide and spironolactone for now, consider gently resuming prior to discharge Assessment & Plan (07/26/2023 12:34 PM PHOTOGRAPHIC ENGINEER): BLE edema with erythema noted on exam. [...] night and received 5 units IV insulin 9/ HgbA1c 8.2 -Tresiba 30U QAM. Additional 10 [...] elevated at home, he can contact his PCP/pastry cook helper for further insulin adjustments. Assessment & Plan [...] regimen Assessment & Plan (08/26/2024 4:05 PM PHOTOGRAPHIC ENGINEER): Last A1c 8.4. Home regimen: tresiba 45 units, novolog 12 units w/ breakfast and dinner, 8 units with lunch and sliding scale 1:50 > 150 Continue lantus 5 units qam + SSI Assessment & Plan (07/17/2024 2:29 PM PHOTOGRAPHIC ENGINEER): - On tresiba 24U Qam and Lispro [...] hdssi Assessment & Plan (07/26/2023 12:33 PM PHOTOGRAPHIC ENGINEER): Insulin dependant. Home regimen: Tresiba 42 units qam, Meal-time insulin 15u tid, SSI. Has had poor oral intake over last 2-3 weeks. He mentions his Stephen 2 sensor has been recording low sugars in 40s-50s overnight for 1 week - SSI inpatient - QID accuchecks Assessment & Plan (06/08/2023 5:39 PM PHOTOGRAPHIC ENGINEER): Hgb1c 8.4% in 04/23, follows with endo [...] -SSI Assessment & Plan (08/24/2022 1:07 PM PHOTOGRAPHIC ENGINEER): -Home regimen metformin + Tresiba 35 units qAM and novolog 11 units with meals plus SSI -Continue basal bolus regimen, dose reduced while inpatient -Accuchecks Assessment & Plan (09/24/2021 12:38 AM CDT): Patient on PO hypoglycemics. Monitor on SSI. Assessment & Plan (06/09/2019 12:53 PM PHOTOGRAPHIC ENGINEER): Diet controlled. A1C at goal. On ARB. Follow up with megano as previously scheduled. Recommend statin for primary [...] 09/06/2015 Assessment & Plan (06/09/2019 12:49 PM PHOTOGRAPHIC ENGINEER): Nodule has not grown on interim imaging. Needs low dose dexamethasone suppression test annually x 5 years since initial evaluation given propensity of some adrenal nodules to become cortisol secreting overtime. Thyroid nodule 09/06/2015 Assessment & Plan (06/09/2019 12:48 PM PHOTOGRAPHIC ENGINEER): S/p FNA with benign cytology. Will repeat US in the spring to monitor biopsied thyroid nodule for growth. Multinodular goiter 05/10/2015 Hernia of abdominal wall 02/18/2015 Assessment & Plan (06/09/2019 12:54 PM PHOTOGRAPHIC ENGINEER): He will follow up with Dr. 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 Higgins in medical oncology [...] 02/23/2012 Assessment & Plan (08/26/2024 4:06 PM PHOTOGRAPHIC ENGINEER): continue home rosuvastatin consider resuming ASA Assessment & Plan (07/10/2024 10:44 PM PHOTOGRAPHIC ENGINEER): Cath in 10/2023 nonobstructive coronary artery disease [...] asthma Assessment & Plan (07/21/2023 2:06 AM PHOTOGRAPHIC ENGINEER): Follows with Dr. Nelson - Continue home Breo and PRN albuterol inhaler Assessment & Plan (06/07/2023 11:31 PM PHOTOGRAPHIC ENGINEER): Follows with Dr. Nelson in pulmonary -Continue home Breo and PRN albuterol inhaler Assessment & Plan (09/25/2022 1:41 AM CDT): -Continue home inhalers. Assessment & Plan (09/22/2022 11:00 AM CDT): Continue home inhalers. Assessment & Plan (08/21/2022 4:13 AM PHOTOGRAPHIC ENGINEER): -Symbicort replaced with formulary Breo Ellipta while [...] 08/23/2024 Assessment & Plan (08/22/2024 8:41 PM PHOTOGRAPHIC ENGINEER): Fevers + O2 requirement Aug 14, subsequently found to be positive for Influenza A and Coronavirus ([id number]). 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 S/p tamiflu, Linezolid (08/15-08/18), Cefepime (08/15- 08/17), Ciprofloxacin (08/08). Currently on RA. - supportive care Dysuria 07/25/2024 08/24/2024 Assessment & Plan (08/22/2024 10:12 PM PHOTOGRAPHIC ENGINEER): Now resolved. UA on admission with leuk [...] 07/25/2024 Assessment & Plan (07/29/2024 3:21 PM PHOTOGRAPHIC ENGINEER): Pt reports new burning pain around left axilla that wraps to the front of his chest. Notes he had this before and area began draining pus and had a foul odor - no erythema or rash noted -Us L axilla- no signs of any fluid collection or lymphadenopathy - already on gabapentin KRISTA (acute kidney injury) 07/24/2024 Assessment & Plan (08/02/2024 11:26 AM PHOTOGRAPHIC ENGINEER): Resolved - Baseline Cr 0.5. Cr on admission was 1.01 - Likely pre-renal due to diarrhea - improved with IVF Dehydration 07/24/2024 08/26/2024 Assessment & Plan (07/26/2024 12:35 PM PHOTOGRAPHIC ENGINEER): - due to diarrhea - s/p 1L IVF bolus in [facility] and maintenance IVF Diarrhea 07/19/2024 08/24/2024 Assessment & Plan (08/09/2024 2:16 PM PHOTOGRAPHIC ENGINEER): - P/w 1-day history of 7-8 episodes [...] resolved Assessment & Plan (07/20/2024 11:33 AM PHOTOGRAPHIC ENGINEER): - Developed after resolution of ileus. - C diff negative - Increased Creon back to home dose - Imodium prn - Hold Linzess until diarrhea resolved Abdominal pain 11/09/2023 08/25/2024 Assessment & Plan (08/11/2024 8:39 PM PHOTOGRAPHIC ENGINEER): Acute on chronic abdominal pain. Likely multifactorial, [...] hematemesis Assessment & Plan (07/14/2024 12:31 PM PHOTOGRAPHIC ENGINEER): Hx of pancreatic cancer s/p whipple presented initially to the [facility] with abd pain , [...] NSAIDs Assessment & Plan (07/10/2024 9:32 PM PHOTOGRAPHIC ENGINEER): Hx of pancreatic cancer s/p whipple presented initially to the [facility] with abd pain , [...] 08/24/2024 Assessment & Plan (08/11/2024 8:40 PM PHOTOGRAPHIC ENGINEER): Complained chest pain at left chest while [...] 08/01/2024 Assessment & Plan (08/01/2024 2:54 PM PHOTOGRAPHIC ENGINEER): -has ICD in place Assessment & Plan [...] 03/31/2025 Assessment & Plan (06/12/2023 3:47 PM PHOTOGRAPHIC ENGINEER): Presented with 3 days of fever, dry [...] 08/22/2024 Assessment & Plan (08/05/2024 11:42 PM PHOTOGRAPHIC ENGINEER): RESOLVED. DDx include viral infection vs transient [...] prn. Assessment & Plan (07/20/2024 11:30 AM PHOTOGRAPHIC ENGINEER): - Developed fever 38.4 C on 07/16 [...] which raise concern for an infectious syndrome -INVOICE MACHINE OPERATOR swab RPP negative -check blood cultures; [...] 10/28/2022 Assessment & Plan (08/24/2022 1:12 PM PHOTOGRAPHIC ENGINEER): Referred pancreatitis pain. 12 lead EKG shows no acute changes, baseline NSR with RBB and intrafascicular block. Trop negative. Elevated transaminase level 08/21/2022 10/28/2022 Assessment & Plan (08/24/2022 1:10 PM PHOTOGRAPHIC ENGINEER): First noted to have elevated alk phos, [...] 023 Assessment & Plan (08/22/2022 2:20 PM PHOTOGRAPHIC ENGINEER): Diagnosed as outpatient and started on fidaxomicin by ID 08/16/2022. Still with persistent diarrhea. -Continue fidaxomicin -ID following Pancreatic lesion 08/20/2022 10/28/2022 Overview (08/21/2022): Added automatically from request for surgery [id number] Assessment & Plan (08/24/2022 1:08 PM PHOTOGRAPHIC ENGINEER): S/P EUS wit FNA confirmed adenocarcinoma. GI arranging oncology and surgical follow up as outpatient Urinary tract infection asso ciated with cystostomy catheter, initial encounter 04/09/2022 0 10/28/2022 Brugada syndrome 07/09/2020 09/10/2020 Cough in adult 06/09/2019 10/28/2022 Assessment & Plan (06/09/2019 12:52 PM PHOTOGRAPHIC ENGINEER): This appears to be chronic and persist despite switching from ACEI to ARB. He will contact his burn center nurse to follow up regarding this. Urinary incontinence 08/18/2018 023 Assessment & Plan (08/18/2018 1:22 AM PHOTOGRAPHIC ENGINEER): Continue with Myrbetriq and vesicare Polymorphic ventricular [...] 10/28/2022 Assessment & Plan (06/09/2019 12:47 PM PHOTOGRAPHIC ENGINEER): Congratulated on recent weight loss. Continue attention to diet, low carb, exercise as able. 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
--- OUTSIDE RECORDS SUMMARY | 2025-04-17 10:33 | XMS_ITS | Encounter Summary ---
Author Organization [facility] Address [address] [place] [address] Phone Care Team Providers Care Stereo Equipment Installer Name Role Phone Kenton Ricks MD Primary Care Provider + [phone] Kenton Ricks MD Primary Care Provider + [phone] Pebbles Nelson MD Unavailable [phone] Aylin Russ MD Unavailable [phone] Maricruz Ramirez NP Unavailable [phone] Joanne Lopez RN Unavailable Padmini Leatha Carter Unavailable Unavailable Ben Chahal MD PhD Unavailable [phone] Chace Oliva MD Unavailable [phone] Giovanna Alexis MD Unavailable Taisha Suarez RN Unavailable Unavaila Sandra Aguirre MD Unavailable +[phone] Abby Higgins MD PhD Unavailable + Adrian Martinez MD Unavailable [phone] Vera Pérez Unavailable Jim Frausto MD Unavailable Анна Robert RN Unavailable Encounter Details Date Type Department Care Team (Late st Contact Info) Description 05/14/2015 Orders Only [facility] Provider, MD Max [address] [place] [address] Social History Tobacco Use Types Packs/Day Years Used Date Smoking Tobacco: Never Assessed Sex and Gender Information Value Date Recorded Sex Assigned at Not on file Legal Sex Male 12:58 AM PATENT AGENT Gender Identity Male 11/11/2018 10:31 AM CDT Sexual Orientation Straight 06/09/2019 5: 34 PM PATENT AGENT documented as of this encounter Plan of Treatment Upcoming Encounters Date Type Department Care Team (Late st Contact Info) Description 04/20/2025 Orders Only [facility] Medicine Oncology [address] [facility] [address] [place] [address] Tory Nye Pancreatic adenocarcinoma (HCC) (Primary Dx) [...] COVID: Suspected 06/07/2023 06/07/2023 06/07/2023 12:46 PM PATENT AGENT COVID19 06/07/2023 06/07/2023 06/22/2023 3:06 AM PATENT AGENT COVID: Recovered Comment:Added based on recent COVID infection. 06/22/2023 06/22/2023 09/20/2023 3:05 AM C DT COVID: Suspected 07/24/2023 07/24/2023 07/24/2023 3:53 PM PATENT AGENT Diarrhea 07/30/2023 07/30/2023 08/13/2023 3:05 AM PATENT AGENT COVID: Suspected 08/30/2023 08/30/2023 08/30/2023 4:52 PM PATENT AGENT COVID: Suspected 10/12/2023 10/12/2023 10/12/2023 7:57 PM CDT Rhino/Enterovirus 10/12/2023 10/12/2023 10/26/2023 3:05 AM CDT COVID: Suspected 07/10/2024 07/10/2024 07/10/2024 4:53 PM PATENT AGENT COVID: Suspected Comment:07/16/2024 IP Review: no outstanding test, last RPP negative. Mary Tiwari RN 07/16/2024 07/16/2024 10:51 AM PATENT AGENT COVID19 Comment:07/16/2024 IP Review: added by RN, RPP negative. Mary Tiwari RN 07/16/2024 07/16/2024 07/16/2024 10:51 AM PATENT AGENT MRSA Comment:nasalMRSA Isolation Prison 09/03/24 07/16/2024 08/15/2024 09/03/2024 6:[address] C. difficile suspected 07/19/2024 07/19/202407/19 2:34 PM PATENT AGENT COVID: Suspected 07/23/2024 07/23/2024 07/23/2024 11:28 PM PATENT AGENT C. difficile suspected 07/23/2024 07/24/202407/24 10:31 AM PATENT AGENT Norovirus suspected 07/23/2024 07/24/2024 07/24/19 9:37 AM PATENT AGENT VRE Comment:Contact Precautions (gown and gloves) - not eligible for IP review until 6 months after positive culture - Jerod QURESHI, CONY 10/01/24 07/24/2024 09/20/2024 03/19/2025 7:26 PM C DT COVID: Suspected 08/09/2024 08/09/2024 08/09/2024 9:40 AM PATENT AGENT Influenza, adult Comment:08/26/2024 IP Review: pt afebrile but on antipyretics. Needs 24 hours off antipyretics and symptoms significantly improved/resolved in order for isolation to be discontinued. Mary Tiwari RN 08/15/2024 08/15/2024 08/29/2024 3:06 AM PATENT AGENT Coronavirus, droplet 08/15/2024 08/15/2024 025 3:06 AM PATENT AGENT C. difficile suspected 09/19/2024 09/19/202409/20 3:05 [...] documented as of this encounter Care Teams Stereo Equipment Installer Relationship Specialty Start Date End Date Kenton Ricks MD PCP - General 08/14/16 Kenton Ricks MD PCP - General 09/17/08 08/13/16 Pebbles Nelson MD Referring Physician Cardiology 02/07/19 Aylin Russ MD [address] [place] [address] Referring Physician Pulmonary Disease 02/07/19 Maricruz Ramirez NP [address] [place] [address] Nurse Practitioner Cardiovascular Disease 09/25/21 Joanne Lopez, RN Registered Nurse Pulmonary Disease 08/24/22 Leatha Cristina RMA Surgical Prehabilitation and Readiness (SPAR) Coordinator 09/01/22 01/02/23 Ben Chahal MD PhD 10 [facility] [address] [place] [address] Medical Oncologist/Electric Power Line Examiner Medical Oncology 10/05/22 Chace Oliva MD [address] [place] [address] Consulting Physician Infectious Diseases 12/22/2204/01 Giovanna Alexis MD [address] [place] [address] Radiation Oncologist Radiation Oncology 03/09/23 Taisha Suarez, resource economist Prehabilitation and Readiness (SPAR) Coordinator General Surgery 03/20/23 04/10/23 Sandra Ma MD [address] DIV IM MEDICAL ONCOLOGY, [address], [address]B, [address] [place] [address] Consulting Physician Medical Oncology 04/25/23 05/09/23 Abby Higgins MD PhD [address] DIV IM MEDICAL ONCOLOGY, [address]A, 7B, [address] [place] [address] Medical Oncologist/Electric Power Line Examiner Medical Oncology 05/10/23 Adrian Martinez MD [address] DIV SURG TRANSPLANT, [address] [place] [address] Surgical Oncologist Surgical Oncology 05/28/23 Vera Pérez PA [address] [place] [id number] [place] [address] Physician Hooker Laster Colon and Rectal Surgery 09/13/23 Jim Frausto MD [address] [facility] [phone] [place] [address] Surgeon Colon and Rectal Surgery 11/21/23 Анна Robert RN [address] [place] [address] SHOP Outpatient Glued Wood Tester 09/29/24 10/01/24 documented as of this encounter
--- OUTSIDE RECORDS SUMMARY | 2025-04-17 10:33 | XMS_ITS | Encounter Summary ---
Author Organization [employer] Address [address] [place] [address] Care Team Providers Care Interior Paneler Name Role Phone Kenton Ricks MD Primary Care Provider [phone] Encounter Details Date Type Department Care Team (Late st Contact Info) Description 12/24/2001 Outpatient [facility] [address] [place] [address]. [place] [address] Anika Rowan MD NO ADDRESS ON FILE Social History Tobacco Use Types Packs/Day Years Used Date Smoking Tobacco: Never Assessed Sex and Gender Information Value Date Recorded Sex Assigned at Not on file Legal Sex Male 4:35 AM WILDLIFE REHABILITATOR Gender Identity Not on file Sexual Orientation Not on file documented as of this encounter Plan of Treatment Not on file documented as of this encounter Visit Diagnoses Not on filedocumented in this encounter Care Teams Interior Paneler Relationship Specialty Start Date End Date Kenton Ricks MD [address] [place] [id number] PCP - General Family Practice 11/15/18 documented as of this encounter
--- OUTSIDE RECORDS SUMMARY | 2025-04-17 10:33 | XMS_ITS | Encounter Summary ---
Author Organization [employer] Address 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 [address] PCP - General Family Practice 11/15/18 documented as of this encounter
--- OUTSIDE RECORDS SUMMARY | 2025-04-17 10:34 | XMS_ITS | Encounter Summary ---
Author Organization [facility] Address [address] [place] [address] Phone Care Team Providers Care Electrification Adviser Name Role Phone Kenton Ricks MD Primary Care Provider + [phone] Pebbles Nelson MD Unavailable [phone] Aylin Russ MD Unavailable [phone] Maricruz Ramirez NP Unavailable [phone] Joanne Lopez RN Unavailable Padmini Leatha Carter Unavailable Unavailable Ben Chahal MD PhD Unavailable [phone] Chace Oliva MD Unavailable [phone] Giovanna Alexis MD Unavailable Taisha Suarez RN Unavailable Unavaila Sandra Aguirre MD Unavailable [phone] Abby Higgins MD PhD Unavailable + Adrian Martinez MD Unavailable [phone] Vera Pérez Unavailable [phone] Jim Frausto MD Unavailable [phone] Анна Robert RN Unavailable [phone] Encounter Details Date Type Department Care Team [...] week 10/17/2021 How often do you attend [facility] or buddhism services? More than 4 times per year 10/17/2021 Do you belong to any clubs o r organizations such as pentecostal groups, unions, fraternal or athletic groups, or [...] place to sleep or slept in a fpc (including now)? No 10/17/2021 Sex and Gender Information Value Date Recorded Sex Assigned at Not on file Legal Sex Male 12:58 AM DIRECTOR OF OCCUPATIONAL THERAPY Gender Identity Male 11/11/2018 10:31 AM CDT Sexual Orientation Straight 06/09/2019 5: 34 PM DIRECTOR OF OCCUPATIONAL THERAPY documented as of this encounter Plan of Treatment Upcoming Encounters Date Type Department Care Team (Late st Contact Info) Description 04/20/2025 Orders Only [facility] Medicine Oncology 10 [facility] [address] [place] [address] Tory Nye Pancreatic adenocarcinoma (HCC) (Primary Dx) [...] Suspected 06/07/2023 06/07/2023 06/07/2023 12:46 PM DIRECTOR OF OCCUPATIONAL THERAPY COVID19 06/07/2023 06/07/2023 06/22/2023 3:06 AM DIRECTOR OF OCCUPATIONAL THERAPY COVID: Recovered Comment:Added based on recent COVID infection. 06/22/2023 06/22/2023 09/20/2023 3:05 AM C DT COVID: Suspected 07/24/2023 07/24/2023 07/24/2023 3:53 PM DIRECTOR OF OCCUPATIONAL THERAPY Diarrhea 07/30/2023 07/30/2023 08/13/2023 3:05 AM DIRECTOR OF OCCUPATIONAL THERAPY COVID: Suspected 08/30/2023 08/30/2023 08/30/2023 4:52 PM DIRECTOR OF OCCUPATIONAL THERAPY COVID: Suspected 10/12/2023 10/12/2023 10/12/2023 7:57 PM CDT Rhino/Enterovirus 10/12/2023 10/12/2023 10/26/2023 3:05 AM CDT COVID: Suspected 07/10/2024 07/10/202407/10/2024 4:53 PM DIRECTOR OF OCCUPATIONAL THERAPY COVID: Suspected Comment:07/16/2024 IP Review: no outstanding test, last RPP negative. Mary Tiwari RN 07/16/2024 07/16/2024 10:51 AM DIRECTOR OF OCCUPATIONAL THERAPY COVID19 Comment:07/16/2024 IP Review: added by RN, RPP negative. Mary Tiwari RN 07/16/2024 07/16/2024 07/16/2024 10:51 AM DIRECTOR OF OCCUPATIONAL THERAPY MRSA Comment:nasalMRSA Isolation Prison 09/03/24 07/16/2024 08/15/2024 09/03/2024 6:[address] C. difficile suspected 07/19/2024 07/19/202407/19 2:34 PM DIRECTOR OF OCCUPATIONAL THERAPY COVID: Suspected 07/23/2024 07/23/2024 07/23/2024 11:28 PM DIRECTOR OF OCCUPATIONAL THERAPY C. difficile suspected 07/23/2024 07/24/202407/24 10:31 AM DIRECTOR OF OCCUPATIONAL THERAPY Norovirus suspected 07/23/2024 07/24/2024 07/24/19 9:37 AM DIRECTOR OF OCCUPATIONAL THERAPY VRE Comment:Contact Precautions (gown and gloves) - not eligible for IP review until 6 months after positive culture - Jerod QURESHI, CONY 10/01/24 07/24/2024 09/20/2024 03/19/2025 7:26 PM C DT COVID: Suspected 08/09/2024 08/09/2024 08/09/2024 9:40 AM DIRECTOR OF OCCUPATIONAL THERAPY Influenza, adult Comment:08/26/2024 IP Review: pt afebrile but on antipyretics. Needs 24 hours off antipyretics and symptoms significantly improved/resolved in order for isolation to be discontinued. Mary Tiwari RN 08/15/2024 08/15/2024 08/29/2024 3:06 AM DIRECTOR OF OCCUPATIONAL THERAPY Coronavirus, droplet 08/15/2024 08/15/2024 025 3:06 AM DIRECTOR OF OCCUPATIONAL THERAPY C. difficile suspected 09/19/2024 09/19/202409/20 3:05 AM [...] documented as of this encounter Care Teams Electrification Adviser Relationship Specialty Start Date End Date Kenton Ricks MD PCP - General 08/14/16 Pebbles Nelson MD Referring Physician Cardiology 02/07/19 Aylin Russ MD [address] [place] [address] Referring Physician Pulmonary Disease 02/07/19 Maricruz Ramirez, HEALTH CARE FACILITY ADMINISTRATOR [address] [facility] [address] [place] [address] Nurse Practitioner Cardiovascular Disease 09/25/21 Joanne Lopez, CONY Registered Nurse Pulmonary Disease 08/24/22 Leatha Cristina RMA Surgical Prehabilitation and Readiness (SPAR) Coordinator 09/01/22 01/02/23 Ben Chahal MD PhD 10 [facility] [address] [place] [address] Medical Oncologist/Oracle Reports Developer Medical Oncology 10/05/22 Chace Oliva MD [address] [facility] [address] [place] [address] Consulting Physician Infectious Diseases 12/22/2204/01 Giovanna Alexis MD [address] [facility] [address] [place] [address] Radiation Oncologist Radiation Oncology 03/09/23 Taisha Suarez, education managers Prehabilitation and Readiness (SPAR) Coordinator General Surgery 03/20/23 04/10/23 Sandra Ma MD [address] [facility] DIV IM MEDICAL ONCOLOGY, [address], [address]B, [address] [place] [address] Consulting Physician Medical Oncology 04/25/23 05/09/23 Abby Higgins MD PhD [address] DIV IM MEDICAL ONCOLOGY, [address], [address]B, [address] [place] [address] Medical Oncologist/Oracle Reports Developer Medical Oncology 05/10/23 Adrian Martinez MD [address] [facility] DIV SURG TRANSPLANT, [address] [place] [address] Surgical Oncologist Surgical Oncology 05/28/23 Vera Pérez PA [address] [place] [phone] [place] [address] Physician Carpentry Professional Colon and Rectal Surgery 09/13/23 Jim Frausto MD [address] [place] [phone] [place] [address] Surgeon Colon and Rectal Surgery 11/21/23 Анна Robert, RN [address] [facility] [address] [place] [address] SHOP Outpatient Retail Support Manager 09/29/24 10/01/24 documented as of this encounter
--- OUTSIDE RECORDS SUMMARY | 2025-04-17 10:34 | XMS_ITS | Clinical Summary ---
Author Organization [facility] Address [address] [facility] [address] Care Team Providers Care Driver'S License Examiner Name Role Phone Kenton Ricks MD Primary Care Provider [phone] Source Comments [facility],non-owned Affiliates and Associated Physician Practices is amultiple site organization consisting of ambulatory clinics and hospital sitesin [place], [place], [place] and [place]. This disclosure is being madepursuant to the Care Everywhere program and may not contain all information available regarding this patient. Last updated 18.[facility] Medications * Be aware that medications may [...] on file Legal Sex Male 6:18 AM PROFESSOR OF GEOLOGY Gender Identity Not on file Sexual Orientation Not on file Last Filed Vital Signs Vital Sign Reading Time Taken Comments Blood Pressure 126/67 07/06/2017 11:17 AM PROFESSOR OF GEOLOGY Pulse 60 07/06/2017 11:17 AM PROFESSOR OF GEOLOGY Temperature 36.4 C (97.5 F) 07/06/2017 11:17 AM PROFESSOR OF GEOLOGY Respiratory Rate 16 06/29/2017 12:33 PM PROFESSOR OF GEOLOGY Oxygen Saturation 99% 07/06/2017 11:17 AM PROFESSOR OF GEOLOGY Inhaled Oxygen Concentration - - Weight 115.7 kg (255 lb) 07/06/2017 11:17 AM PROFESSOR OF GEOLOGY Height 175.3 cm (5' 9) 07/06/2017 11:17 AM PROFESSOR OF GEOLOGY Body Mass Index 37.66 07/06/2017 11:17 AM PROFESSOR OF GEOLOGY Plan of Treatment Health Maintenance Due Date [...] age to complete this topic Care Teams Driver'S License Examiner Relationship Specialty Start Date End Date Kenton Ricks MD [address] [place] [address] PCP - General Family Medicine 08/20/15
--- OUTSIDE RECORDS SUMMARY | 2025-04-17 10:34 | XMS_ITS | Encounter Summary ---
Author Organization [facility] Address [address] [place] [address] Phone Care Team Providers Care Photographic Artist Name Role Phone Kenton Ricks MD Primary Care Provider + [phone] Pebbles Nelson MD Unavailable [phone] Aylin Russ MD Unavailable [phone] Maricruz Ramirez NP Unavailable [phone] Joanne Lopez RN Unavailable Padmini Leatha Carter Unavailable Unavailable Ben Chahal MD PhD Unavailable [phone] Chace Oliva MD Unavailable [phone] Giovanna Alexis MD Unavailable Taisha Suarez RN Unavailable Unavaila Sandra Aguirre MD Unavailable [phone] Abby Higgins MD PhD Unavailable + Adrian Martinez MD Unavailable [phone] Vera Pérez Unavailable [phone] Jim Frausto MD Unavailable [phone] Анна Robert RN Unavailable [phone] Encounter Details Date Type Department Care Team [...] week 10/17/2021 How often do you attend [facility] or religion services? More than 4 times per year 10/17/2021 Do you belong to any clubs o r organizations such as evangelical groups, unions, fraternal or athletic groups, or [...] on file Legal Sex Male 12:58 AM PIVOT MAKER Gender Identity Male 11/11/2018 10:31 AM CDT Sexual Orientation Straight 06/09/2019 5: 34 PM PIVOT MAKER documented as of this encounter Plan of Treatment Upcoming Encounters Date Type Department Care Team (Late st Contact Info) Description 04/20/[address] [facility] Medicine Oncology 10 [facility] [address] [place] [address] Tory Nye Pancreatic adenocarcinoma (HCC) (Primary Dx) [...] COVID: Suspected 06/07/2023 06/07/2023 06/07/2023 12:46 PM PIVOT MAKER COVID19 06/07/2023 06/07/2023 06/22/2023 3:06 AM PIVOT MAKER COVID: Recovered Comment:Added based on recent COVID infection. 06/22/2023 06/22/2023 09/20/2023 3:05 AM C DT COVID: Suspected 07/24/2023 07/24/2023 07/24/2023 3:53 PM PIVOT MAKER Diarrhea 07/30/2023 07/30/2023 08/13/2023 3:05 AM PIVOT MAKER COVID: Suspected 08/30/2023 08/30/2023 08/30/2023 4:52 PM PIVOT MAKER COVID: Suspected 10/12/2023 10/12/2023 10/12/2023 7:57 PM CDT Rhino/Enterovirus 10/12/2023 10/12/2023 10/26/2023 3:05 AM CDT COVID: Suspected 07/10/2024 07/10/2024 07/10/2024 4:53 PM PIVOT MAKER COVID: Suspected Comment:07/16/2024 IP Review: no outstanding test, last RPP negative. Mary Tiwari RN 07/16/2024 07/16/2024 10:51 AM PIVOT MAKER COVID19 Comment:07/16/2024 IP Review: added by RN, RPP negative. Mary Tiwari RN 07/16/2024 07/16/2024 07/16/2024 10:51 AM PIVOT MAKER MRSA Comment:nasalMRSA Isolation Long Term 09/03/24 07/16/2024 08/15/2024 09/03/2024 6:[address] C. difficile suspected 07/19/2024 07/19/202407/19 2:34 PM PIVOT MAKER COVID: Suspected 07/23/2024 07/23/2024 07/23/2024 11:28 PM PIVOT MAKER C. difficile suspected 07/23/2024 07/24/202407/24 10:31 AM PIVOT MAKER Norovirus suspected 07/23/2024 07/24/2024 07/24/19 9:37 AM PIVOT MAKER VRE Comment:Contact Precautions (gown and gloves) - not eligible for IP review until 6 months after positive culture - Jerod QURESHI, CONY 10/01/24 07/24/2024 09/20/2024 03/19/2025 7:26 PM C DT COVID: Suspected 08/09/2024 08/09/2024 08/09/2024 9:40 AM PIVOT MAKER Influenza, adult Comment:08/26/2024 IP Review: pt afebrile but on antipyretics. Needs 24 hours off antipyretics and symptoms significantly improved/resolved in order for isolation to be discontinued. Mary Tiwari RN 08/15/2024 08/15/2024 08/29/2024 3:06 AM PIVOT MAKER Coronavirus, droplet 08/15/2024 08/15/202408/29/ 025 3:06 AM PIVOT MAKER C. difficile suspected 09/19/2024 09/19/202409/20 3:05 AM CDT C. difficile suspected 09/20/2024 09/20/202409/20 10:39 PM CDT Ring Surveillance Comment:09/21/2024- 0 C. [employer] ring surveillance. [address]TERROSO [address] 09/21/2024 09/21/2024 09/28/2024 3:05 AM CDT Norovirus suspected 09/21/2024 09/21/2024 09/25/19 10:57 AM [...] documented as of this encounter Care Teams Photographic Artist Relationship Specialty Start Date End Date Kenton Ricks MD PCP - General 08/14/16 Pebbles Nelson MD Referring Physician Cardiology 02/07/19 Aylin Russ MD [address] [facility] [address] [place] [address] Referring Physician Pulmonary Disease 02/07/19 Maricruz Ramirez, PRECISION ASSEMBLER [address] [facility] [address] [place] [address] Nurse Practitioner Cardiovascular Disease 09/25/21 Joanne Lopez, CONY Registered Nurse Pulmonary Disease 08/24/22 Leatha Cristina RMA Surgical Prehabilitation and Readiness (SPAR) Coordinator 09/01/22 01/02/23 Ben Chahal MD PhD 10 [facility] [address] 2 [place] [address] Medical Oncologist/Traffic Enumerator Medical Oncology 10/05/22 Chace Oliva MD [address] [facility] [address] [place] [address] Consulting Physician Infectious Diseases 12/22/2204/01 Giovanna Alexis MD [address] [facility] [address] [place] [address] Radiation Oncologist Radiation Oncology 03/09/23 Taisha Suarez, environmental services supervisor Prehabilitation and Readiness (SPAR) Coordinator General Surgery 03/20/23 04/10/23 Sandra Ma MD [address] [facility] DIV MEDICAL ONCOLOGY, [address], [address]B, [address] [place] [address] Consulting Physician Medical Oncology 04/25/23 05/09/23 Abby Higgins MD PhD [address] [facility] DIV IM MEDICAL ONCOLOGY, [address]A, 7B, [address] [place] [address] Medical Oncologist/Traffic Enumerator Medical Oncology 05/10/23 Adrian Martinez MD [address] [facility] DIV SURG TRANSPLANT, [address] [place] [address] Surgical Oncologist Surgical Oncology 05/28/23 Vera Pérez PA [address] [place] [phone] [place] [address] Physician Breaker Layer Colon and Rectal Surgery 09/13/23 Jim Frausto MD [address] [facility] [phone] [place] [address] Surgeon Colon and Rectal Surgery 11/21/23 Анна Robert, RN [address] [facility] [address] [place] [address] SHOP Outpatient Church Official 09/29/24 10/01/24 documented as of this encounter
--- OUTSIDE RECORDS SUMMARY | 2025-04-17 10:34 | XMS_ITS | Encounter Summary ---
Author Organization [facility] Address [address] [place] [address] Phone Care Team Providers Care County Commissioner Name Role Phone Kenton Ricks MD Primary Care Provider + [phone] Kenton Ricks MD Primary Care Provider + [phone] Pebbles Nelson MD Unavailable [phone] Aylin Russ MD Unavailable [phone] Maricruz Ramirez NP Unavailable [phone] Joanne Lopez RN Unavailable Padmini Leatha Carter Unavailable Unavailable Ben Chahal MD PhD Unavailable [phone] Chace Oliva MD Unavailable [phone] Giovanna Alexis MD Unavailable Taisha Suarez RN Unavailable Unavaila Sandra Aguirre MD Unavailable +[phone] Abby Higgins MD PhD Unavailable + Adrian Martinez MD Unavailable Vera Pérez Unavailable [phone] Jim Frausto MD Unavailable Анна Robert RN Unavailable [phone] Encounter Details Date Type Department Care Team (Late st Contact Info) Description 09/01/2014 Orders Only [facility] Provider, MD Max [address] [place] [address] Social History Tobacco Use Types Packs/Day Years Used Date Smoking Tobacco: Never Assessed Sex and Gender Information Value Date Recorded Sex Assigned at Not on file Legal Sex Male 12:58 AM CATERING COORDINATOR Gender Identity Male 11/11/2018 10:31 AM CDT Sexual Orientation Straight 06/09/2019 5: 34 PM CATERING COORDINATOR documented as of this encounter Plan of Treatment Upcoming Encounters Date Type Department Care Team (Late st Contact Info) Description 04/20/2025 Orders Only [facility] Medicine Oncology 10 [facility] [address] [place] [address] Tory Nye Pancreatic adenocarcinoma (HCC) (Primary Dx) [...] COVID: Suspected 06/07/2023 06/07/2023 06/07/2023 12:46 PM CATERING COORDINATOR COVID19 06/07/2023 06/07/2023 06/22/2023 3:06 AM CATERING COORDINATOR COVID: Recovered Comment:Added based on recent COVID infection. 06/22/2023 06/22/2023 09/20/2023 3:05 AM C DT COVID: Suspected 07/24/2023 07/24/2023 07/24/2023 3:53 PM CATERING COORDINATOR Diarrhea 07/30/2023 07/30/2023 08/13/2023 3:05 AM CATERING COORDINATOR COVID: Suspected 08/30/2023 08/30/2023 08/30/2023 4:52 PM CATERING COORDINATOR COVID: Suspected 10/12/2023 10/12/2023 10/12/2023 7:57 PM CDT Rhino/Enterovirus 10/12/2023 10/12/2023 10/26/2023 3:05 AM CDT COVID: Suspected 07/10/2024 07/10/2024 07/10/2024 4:53 PM CATERING COORDINATOR COVID: Suspected Comment:07/16/2024 IP Review: no outstanding test, last RPP negative. Mary Tiwari RN 07/16/2024 07/16/2024 10:51 AM CATERING COORDINATOR COVID19 Comment:07/16/2024 IP Review: added by RN, RPP negative. Mary Tiwari RN 07/16/2024 07/16/2024 07/16/2024 10:51 AM CATERING COORDINATOR MRSA Comment:nasalMRSA Isolation Fpc 09/03/24 07/16/2024 08/15/2024 09/03/2024 6:[address] C. difficile suspected 07/19/2024 07/19/202407/19 2:34 PM CATERING COORDINATOR COVID: Suspected 07/23/2024 07/23/2024 07/23/2024 11:28 PM CATERING COORDINATOR C. difficile suspected 07/23/2024 07/24/202407/24 10:31 AM CATERING COORDINATOR Norovirus suspected 07/23/2024 07/24/2024 07/24/19 9:37 AM CATERING COORDINATOR VRE Comment:Contact Precautions (gown and gloves) - not eligible for IP review until 6 months after positive culture - Jerod QURESHI, CONY 10/01/24 07/24/2024 09/20/2024 03/19/2025 7:26 PM C DT COVID: Suspected 08/09/2024 08/09/2024 08/09/2024 9:40 AM CATERING COORDINATOR Influenza, adult Comment:08/26/2024 IP Review: pt afebrile but on antipyretics. Needs 24 hours off antipyretics and symptoms significantly improved/resolved in order for isolation to be discontinued. Mary Tiwari RN 08/15/2024 08/15/2024 08/29/2024 3:06 AM CATERING COORDINATOR Coronavirus, droplet 08/15/2024 08/15/2024 025 3:06 AM CATERING COORDINATOR C. difficile suspected 09/19/2024 09/19/202409/20 3:05 AM [...] documented as of this encounter Care Teams County Commissioner Relationship Specialty Start Date End Date Kenton Ricks MD PCP - General 08/14/16 Kenton Ricks MD PCP - General 09/17/08 08/13/16 Pebbles Nelson MD Referring Physician Cardiology 02/07/19 Aylin Russ MD [address] [place] [address] Referring Physician Pulmonary Disease 02/07/19 Maricruz Ramirez NP [address] [place] [address] Nurse Practitioner Cardiovascular Disease 09/25/21 Joanne Lopez, RN Registered Nurse Pulmonary Disease 08/24/22 Leatha Cristina RMA Surgical Prehabilitation and Readiness (SPAR) Coordinator 09/01/22 01/02/23 Ben Chahal MD PhD 10 [facility] [address] 2 [place] [address] Medical Oncologist/Authorization Rep Medical Oncology 10/05/22 Chace Oliva MD [address] [place] [address] Consulting Physician Infectious Diseases 12/22/2204/01 Giovanna Alexis MD [address] [place] [address] Radiation Oncologist Radiation Oncology 03/09/23 Taisha Suarez, oracle soa developer Prehabilitation and Readiness (SPAR) Coordinator General Surgery 03/20/23 04/10/23 Sandra Ma MD [address] DIV IM MEDICAL ONCOLOGY, [address]A, 7B, [address] [place] [address] Consulting Physician Medical Oncology 04/25/23 05/09/23 Abby Higgins MD PhD [address] DIV IM MEDICAL ONCOLOGY, [address] 7A, 7B, [address]C [place] [address] Medical Oncologist/Authorization Rep Medical Oncology 05/10/23 Adrian Martinez MD [address] DIV SURG TRANSPLANT, [address] [place] [address] Surgical Oncologist Surgical Oncology 05/28/23 Vera Pérez PA [address] [place] [id number] [place] [address] Physician Oral And Maxillofacial Surgery Resident Colon and Rectal Surgery 09/13/23 Jim Frausto MD [address] [place] [facility] [phone] [place] [address] Surgeon Colon and Rectal Surgery 11/21/23 Анна Robert RN [address] [place] [address] SHOP Outpatient Payment Specialist 09/29/24 10/01/24 documented as of this encounter
--- OUTSIDE RECORDS SUMMARY | 2025-04-17 10:34 | XMS_ITS | Encounter Summary ---
Author Organization [facility] Address [address] [place] [address] Phone Care Team Providers Care Floral Designer Salesperson Name Role Phone Kenton Ricks MD Primary Care Provider + [phone] Kenton Ricks MD Primary Care Provider + [phone] Pebbles Nelson MD Unavailable [phone] Aylin Russ MD Unavailable [phone] Maricruz Ramirez NP Unavailable [phone] Joanne Lopez RN Unavailable Padmini Leatha Carter Unavailable Unavailable Ben Chahal MD PhD Unavailable [phone] Chace Oliva MD Unavailable [phone] Giovanna Alexis MD Unavailable Taisha Suarez RN Unavailable Unavaila Sandra Aguirre MD Unavailable [phone] Abby Higgins MD PhD Unavailable + Adrian Martinez MD Unavailable [phone] Vera Pérez Unavailable Jim Frausto MD Unavailable Анна Robert RN Unavailable Encounter Details Date Type Department Care Team (Late st Contact Info) Description 11/30/2014 Orders Only [facility] Provider, MD Max [address] [place] [address] Social History Tobacco Use Types Packs/Day Years Used Date Smoking Tobacco: Never Assessed Sex and Gender Information Value Date Recorded Sex Assigned at Not on file Legal Sex Male 12:58 AM HOT WORKER Gender Identity Male 11/11/2018 10:31 AM CDT Sexual Orientation Straight 06/09/2019 5: 34 PM HOT WORKER documented as of this encounter Plan of Treatment Upcoming Encounters Date Type Department Care Team (Late st Contact Info) Description 04/20/2025 Orders Only [facility] Medicine Oncology 10 [facility] [address] [place] [address] Tory Nye Pancreatic adenocarcinoma (HCC) (Primary Dx) [...] COVID: Suspected 06/07/2023 06/07/2023 06/07/2023 12:46 PM HOT WORKER COVID19 06/07/2023 06/07/2023 06/22/2023 3:06 AM HOT WORKER COVID: Recovered Comment:Added based on recent COVID infection. 06/22/2023 06/22/2023 09/20/2023 3:05 AM C DT COVID: Suspected 07/24/2023 07/24/2023 07/24/2023 3:53 PM HOT WORKER Diarrhea 07/30/2023 07/30/2023 08/13/2023 3:05 AM HOT WORKER COVID: Suspected 08/30/2023 08/30/2023 08/30/2023 4:52 PM HOT WORKER COVID: Suspected 10/12/2023 10/12/2023 10/12/2023 7:57 PM CDT Rhino/Enterovirus 10/12/2023 10/12/2023 10/26/2023 3:05 AM CDT COVID: Suspected 07/10/2024 07/10/2024 07/10/2024 4:53 PM HOT WORKER COVID: Suspected Comment:07/16/2024 IP Review: no outstanding test, last RPP negative. Mary Tiwari RN 07/16/2024 07/16/2024 10:51 AM HOT WORKER COVID19 Comment:07/16/2024 IP Review: added by RN, RPP negative. Mary Tiwari RN 07/16/2024 07/16/2024 07/16/2024 10:51 AM HOT WORKER MRSA Comment:nasalMRSA Isolation Fdc 09/03/24 07/16/2024 08/15/2024 09/03/2024 6:[address] C. difficile suspected 07/19/2024 07/19/202407/19 2:34 PM HOT WORKER COVID: Suspected 07/23/2024 07/23/2024 07/23/2024 11:28 PM HOT WORKER C. difficile suspected 07/23/2024 07/24/202407/24 10:31 AM HOT WORKER Norovirus suspected 07/23/2024 07/24/2024 07/24/19 9:37 AM HOT WORKER VRE Comment:Contact Precautions (gown and gloves) - not eligible for IP review until 6 months after positive culture - Jerod QURESHI, CONY 10/01/24 07/24/2024 09/20/2024 03/19/2025 7:26 PM C DT COVID: Suspected 08/09/2024 08/09/2024 08/09/2024 9:40 AM HOT WORKER Influenza, adult Comment:08/26/2024 IP Review: pt afebrile but on antipyretics. Needs 24 hours off antipyretics and symptoms significantly improved/resolved in order for isolation to be discontinued. Mary Tiwari RN 08/15/2024 08/15/2024 08/29/2024 3:06 AM HOT WORKER Coronavirus, droplet 08/15/2024 08/15/2024 025 3:06 AM HOT WORKER C. difficile suspected 09/19/2024 09/19/202409/20 3:05 AM [...] documented as of this encounter Care Teams Floral Designer Salesperson Relationship Specialty Start Date End Date Kenton Ricks MD PCP - General 08/14/16 Kenton Ricks MD PCP - General 09/17/08 08/13/16 Pebbles Nelson MD Referring Physician Cardiology 02/07/19 Aylin Russ MD [address] [place] [address] Referring Physician Pulmonary Disease 02/07/19 Maricruz Ramirez NP [address] [place] [address] Nurse Practitioner Cardiovascular Disease 09/25/21 Joanne Lopez, RN Registered Nurse Pulmonary Disease 08/24/22 Leatha Cristina RMA Surgical Prehabilitation and Readiness (SPAR) Coordinator 09/01/22 01/02/23 Ben Chahal MD PhD 10 [facility] # 2 DIV [place] [address] Medical Oncologist/Schedule Manager Medical Oncology 10/05/22 Chace Oliva MD [address] [place] [address] Consulting Physician Infectious Diseases 12/22/2204/01 Giovanna Alexis MD [address] [place] [address] Radiation Oncologist Radiation Oncology 03/09/23 Taisha Suarez, sawyer cork slabs Prehabilitation and Readiness (SPAR) Coordinator General Surgery 03/20/23 04/10/23 Sandra Ma MD [address] DIV IM MEDICAL ONCOLOGY, [address]A, 7B, [address] [place] [address] Consulting Physician Medical Oncology 04/25/23 05/09/23 Abby Higgins MD PhD [address] DIV IM MEDICAL ONCOLOGY, [address]A, 7B, [address]C [place] [address] Medical Oncologist/Schedule Manager Medical Oncology 05/10/23 Adrian Martinez MD [address] DIV SURG TRANSPLANT, [address] [place] [address] Surgical Oncologist Surgical Oncology 05/28/23 Vera Pérez PA [address] [place] [phone] [place] [address] Physician Plastic Molder Colon and Rectal Surgery 09/13/23 Jim Frausto MD [address] [facility] [phone] [place] [address] Surgeon Colon and Rectal Surgery 11/21/23 Анна Robert RN [address] [place] [address] SHOP Outpatient Plastic Molder 09/29/24 10/01/24 documented as of this encounter
--- OUTSIDE RECORDS SUMMARY | 2025-04-17 10:34 | XMS_ITS | Encounter Summary ---
Author Organization [facility] Address [address] [place] [address] Phone Care Team Providers Care Engineer Third Assistant Name Role Phone Kenton Ricks MD Primary Care Provider + [phone] Kenton Ricks MD Primary Care Provider + [phone] Pebbles Nelson MD Unavailable [phone] Aylin Russ MD Unavailable [phone] Maricruz Ramirez NP Unavailable [phone] Joanne Lopez RN Unavailable Padmini Leatha Carter Unavailable Unavailable Ben Chahal MD PhD Unavailable [phone] Chace Oliva MD Unavailable [phone] Giovanna Alexis MD Unavailable aTisha Suarez RN Unavailable Unavaila Sandra Aguirre MD Unavailable [phone] Abby Higgins MD PhD Unavailable + Adrian Martinez MD Unavailable [phone] Vera Pérez Unavailable Jim Frausto MD Unavailable Анна Robert RN Unavailable [phone] Encounter Details Date Type Department Care Team (Late st Contact Info) Description 06/02/2014 Orders Only [facility]IN[facility] Provider, MD Max [address] [place] [address] Social History Tobacco Use Types Packs/Day Years Used Date Smoking Tobacco: Never Assessed Sex and Gender Information Value Date Recorded Sex Assigned at Not on file Legal Sex Male 12:58 AM [employer]BER Gender Identity Male 11/11/2018 10:31 AM CDT Sexual Orientation Straight 06/09/2019 5: 34 PM [employer] MEMBER documented as of this encounter Plan of Treatment Upcoming Encounters Date Type Department Care Team (Late st Contact Info) Description 04/20/2025 Orders Only [facility] Medicine Oncology 10 [facility] [address] [place] [address] Tory Nye Pancreatic adenocarcinoma (HCC) (Primary Dx) [...] COVID: Suspected 06/07/2023 06/07/2023 06/07/2023 12:46 PM [employer]BER COVID19 06/07/2023 06/07/2023 06/22/2023 3:06 AM [employer] MEMBER COVID: Recovered Comment:Added based on recent COVID infection. 06/22/2023 06/22/2023 09/20/2023 3:05 AM C DT COVID: Suspected 07/24/2023 07/24/2023 07/24/2023 3:53 PM [employer]BER Diarrhea 07/30/2023 07/30/2023 08/13/2023 3:05 AM [employer]BER COVID: Suspected 08/30/2023 08/30/2023 08/30/2023 4:52 PM [employer] MEMBER COVID: Suspected 10/12/2023 10/12/2023 10/12/2023 7:57 PM CDT Rhino/Enterovirus 10/12/2023 10/12/2023 10/26/2023 3:05 AM CDT COVID: Suspected 07/10/2024 07/10/2024 07/10/2024 4:53 PM [employer] MEMBER COVID: Suspected Comment:07/16/2024 IP Review: no outstanding test, last RPP negative. Mary Tiwari RN 07/16/2024 07/16/2024 10:51 AM [employer] COVID19 Comment:07/16/2024 IP Review: added by RN, RPP negative. Mary Tiwari RN 07/16/2024 07/16/2024 07/16/2024 10:51 AM [employer] MEMBER MRSA Comment:nasalMRSA Isolation Longterm 09/03/24 07/16/2024 08/15/2024 09/03/2024 6:[address] C. difficile suspected 07/19/2024 07/19/202407/19 2:34 PM [employer] COVID: Suspected 07/23/2024 07/23/2024 07/23/2024 11:28 PM [employer] C. difficile suspected 07/23/2024 07/24/202407/24 10:31 AM [employer]BER Norovirus suspected 07/23/2024 07/24/2024 07/24/19 9:37 AM [employer] VRE Comment:Contact Precautions (gown and gloves) - not eligible for IP review until 6 months after positive culture - Jerod QURESHI, CONY 10/01/24 07/24/2024 09/20/2024 03/19/2025 7:26 PM C DT COVID: Suspected 08/09/2024 08/09/2024 08/09/2024 9:40 AM [employer]BER Influenza, adult Comment:08/26/2024 IP Review: pt afebrile but on antipyretics. Needs 24 hours off antipyretics and symptoms significantly improved/resolved in order for isolation to be discontinued. Mary Tiwair RN 08/15/2024 08/15/2024 08/29/2024 3:06 AM [employer]BER Coronavirus, droplet 08/15/2024 08/15/2024 025 3:06 AM [employer]BER C. difficile suspected 09/19/2024 09/19/202409/20 3:05 AM [...] documented as of this encounter Care Teams Engineer Third Assistant Relationship Specialty Start Date End Date Kenton Ricks MD PCP - General 08/14/16 Kenton Ricks MD PCP - General 09/17/08 08/13/16 Pebbles Nelson MD Referring Physician Cardiology 02/07/19 Aylin Russ MD [address] [place] [address] Referring Physician Pulmonary Disease 02/07/19 Maricruz Ramirez NP [address] [place] [address] Nurse Practitioner Cardiovascular Disease 09/25/21 Joanne Lopez, RN Registered Nurse Pulmonary Disease 08/24/22 Leatha Cristina RMA Surgical Prehabilitation and Readiness (SPAR) Coordinator 09/01/22 01/02/23 Ben Chahal MD PhD 10 [facility] # 2 [place] [address] Medical Oncologist/Shade Classifier Medical Oncology 10/05/22 Chace Oliva MD [address] [place] [address] Consulting Physician Infectious Diseases 12/22/2204/01 Giovanna Alexis MD [address] [place] [address] Radiation Oncologist Radiation Oncology 03/09/23 Taisha Suarez, project portfolio analyst Prehabilitation and Readiness (SPAR) Coordinator General Surgery 03/20/23 04/10/23 Sandra aM MD [address] DIV IM MEDICAL ONCOLOGY, [address]A, 7B, [address]C [place] [address] Consulting Physician Medical Oncology 04/25/23 05/09/23 Abby Higgins MD PhD [address] DIV IM MEDICAL ONCOLOGY, [address]A, 7B, [address]C [place] [address] Medical Oncologist/Shade Classifier Medical Oncology 05/10/23 Adrian Martinez MD [address] DIV SURG TRANSPLANT, [address] [place] [address] Surgical Oncologist Surgical Oncology 05/28/23 Vera Pérez PA [address] [place] [phone] [place] [address] Physician Regional Dedicated Truck Driver Colon and Rectal Surgery 09/13/23 Jim Frausto MD [address] [facility] [phone] [place] [address] Surgeon Colon and Rectal Surgery 11/21/23 Анна Robert RN [address] [place] [address] SHOP Outpatient Client Administrator 09/29/24 10/01/24 documented as of this encounter
--- OUTSIDE RECORDS SUMMARY | 2025-04-17 10:34 | XMS_ITS | Encounter Summary ---
Author Organization [facility] Address [address] [place] [address] Phone Care Team Providers Care Auto Transmission Specialist Name Role Phone Kenton Ricks MD Primary Care Provider + [phone] Kenton Ricks MD Primary Care Provider + [phone] Pebbles Nelson MD Unavailable [phone] Aylin Russ MD Unavailable [phone] Maricruz Ramirez NP Unavailable [phone] Joanne Lopez RN Unavailable Padmini Leatha Carter Unavailable Unavailable Ben Chahal MD PhD Unavailable [phone] Chace Oliva MD Unavailable [phone] Giovanna Alexis MD Unavailable Taisha Suarez RN Unavailable Unavaila Sandra Aguirre MD Unavailable +[phone] Abby Higgins MD PhD Unavailable + Adrian Martinez MD Unavailable [phone] Vera Pérez Unavailable [phone] Jim Frausto MD Unavailable [phone] Анна Robert RN Unavailable Encounter Details Date Type Department Care Team (Late st Contact Info) Description 08/18/2014 Orders Only [facility]INCON[facility] Provider, MD Max [address] [place] [address] Social History Tobacco Use Types Packs/Day Years Used Date Smoking Tobacco: Never Assessed Sex and Gender Information Value Date Recorded Sex Assigned at Not on file Legal Sex Male 12:58 AM DUPLICATION SPECIALIST Gender Identity Male 11/11/2018 10:31 AM CDT Sexual Orientation Straight 06/09/2019 5: 34 PM DUPLICATION SPECIALIST documented as of this encounter Plan of Treatment Upcoming Encounters Date Type Department Care Team (Late st Contact Info) Description 04/20/2025 Orders Only [facility] Medicine Oncology 10 [facility] [address] [place] [address] Tory Nye Pancreatic adenocarcinoma (HCC) (Primary Dx) [...] COVID: Suspected 06/07/2023 06/07/2023 06/07/2023 12:46 PM DUPLICATION SPECIALIST COVID19 06/07/2023 06/07/2023 06/22/2023 3:06 AM DUPLICATION SPECIALIST COVID: Recovered Comment:Added based on recent COVID infection. 06/22/2023 06/22/2023 09/20/2023 3:05 AM C DT COVID: Suspected 07/24/2023 07/24/2023 07/24/2023 3:53 PM DUPLICATION SPECIALIST Diarrhea 07/30/2023 07/30/2023 08/13/2023 3:05 AM DUPLICATION SPECIALIST COVID: Suspected 08/30/2023 08/30/2023 08/30/2023 4:52 PM DUPLICATION SPECIALIST COVID: Suspected 10/12/2023 10/12/2023 10/12/2023 7:57 PM CDT Rhino/Enterovirus 10/12/2023 10/12/2023 10/26/2023 3:05 AM CDT COVID: Suspected 07/10/2024 07/10/2024 07/10/2024 4:53 PM DUPLICATION SPECIALIST COVID: Suspected Comment:07/16/2024 IP Review: no outstanding test, last RPP negative. Mary Tiwari RN 07/16/2024 07/16/2024 10:51 AM DUPLICATION SPECIALIST COVID19 Comment:07/16/2024 IP Review: added by RN, RPP negative. Mary Tiwari RN 07/16/2024 07/16/2024 07/16/2024 10:51 AM DUPLICATION SPECIALIST MRSA Comment:nasalMRSA Isolation Assisted 09/03/24 07/16/2024 08/15/2024 09/03/2024 6:[address] C. difficile suspected 07/19/2024 07/19/202407/19 2:34 PM DUPLICATION SPECIALIST COVID: Suspected 07/23/2024 07/23/2024 07/23/2024 11:28 PM DUPLICATION SPECIALIST C. difficile suspected 07/23/2024 07/24/202407/24 10:31 AM DUPLICATION SPECIALIST Norovirus suspected 07/23/2024 07/24/2024 07/24/19 9:37 AM DUPLICATION SPECIALIST VRE Comment:Contact Precautions (gown and gloves) - not eligible for IP review until 6 months after positive culture - Jerod QURESHI, CONY 10/01/24 07/24/2024 09/20/2024 03/19/2025 7:26 PM C DT COVID: Suspected 08/09/2024 08/09/2024 08/09/2024 9:40 AM DUPLICATION SPECIALIST Influenza, adult Comment:08/26/2024 IP Review: pt afebrile but on antipyretics. Needs 24 hours off antipyretics and symptoms significantly improved/resolved in order for isolation to be discontinued. Mary Tiwari RN 08/15/2024 08/15/2024 08/29/2024 3:06 AM DUPLICATION SPECIALIST Coronavirus, droplet 08/15/2024 08/15/2024 025 3:06 AM DUPLICATION SPECIALIST C. difficile suspected 09/19/2024 09/19/202409/20 3:05 [...] documented as of this encounter Care Teams Auto Transmission Specialist Relationship Specialty Start Date End Date Kenton Ricks MD PCP - General 08/14/16 Kenton Ricks MD PCP - General 09/17/08 08/13/16 Pebbles Nelson MD Referring Physician Cardiology 02/07/19 Aylin Russ MD [address] [place] [address] Referring Physician Pulmonary Disease 02/07/19 Maricruz Ramirez NP [address] [place] [address] Nurse Practitioner Cardiovascular Disease 09/25/21 Joanne Lopez, RN Registered Nurse Pulmonary Disease 08/24/22 Leatha Cristina RMA Surgical Prehabilitation and Readiness (SPAR) Coordinator 09/01/22 01/02/23 Ben Chahal MD PhD 10 [facility] # 2 [place] [address] Medical Oncologist/Program Assistant Medical Oncology 10/05/22 Chace Oliva MD [address] [place] [address] Consulting Physician Infectious Diseases 12/22/2204/01 Giovanna Alexis MD [address] [place] [address] Radiation Oncologist Radiation Oncology 03/09/23 Taisha Suarez, kettle chipper Prehabilitation and Readiness (SPAR) Coordinator General Surgery 03/20/23 04/10/23 Sandra Ma MD [address] DIV IM MEDICAL ONCOLOGY, [address], 7B, [address] [place] [address] Consulting Physician Medical Oncology 04/25/23 05/09/23 Abby Higgins MD PhD [address] DIV IM MEDICAL ONCOLOGY, [address], 7B, [address] [place] [address] Medical Oncologist/Program Assistant Medical Oncology 05/10/23 Adrian Martinez MD [address] DIV SURG TRANSPLANT, [address] [place] [address] Surgical Oncologist Surgical Oncology 05/28/23 Vera Pérez PA [address] [place] [phone] [place] [address] Physician Mechanical Systems Design Engineer Colon and Rectal Surgery 09/13/23 Jim Frausto MD [address] [facility] [phone] [place] [address] Surgeon Colon and Rectal Surgery 11/21/23 Анна Robert RN [address] [place] [address] SHOP Outpatient Merchandise Execution Leader 09/29/24 10/01/24 documented as of this encounter
[2025-04-21 07:09] LABS: Calprotectin, Fecal 125 ug/g (0-120)
[2025-04-21 16:08] LABS: Pancreatic Elastase, Fecal 2 (>200)
== END 2025-04-17 09:57 | disposition home or self-care (01) ==
PROVIDERS: PCP Family Medicine; Visit Provider Nurse Practitioner
DX: D64.81 Anemia due to antineoplastic chemotherapy (principal); T45.1X5A Adverse effect of antineoplastic and immunosuppressive drugs, initial encounter; R79.89 Other specified abnormal findings of blood chemistry; R10.13 Epigastric pain; K52.9 Noninfective gastroenteritis and colitis, unspecified; K86.81 Exocrine pancreatic insufficiency
CPT/HCPCS: 82653; 83993; 87507

== ENCOUNTER 2025-05-05 07:48 | Outpatient (CLI) | payer MEDICARE, MEDICAID, SELFPAY ==
--- NOTE | ~2025-05-05 | US_ITS ---
LIMITED ABDOMINAL ULTRASOUND INDICATION: Elevated LFTs. COMPARISON: None. FINDINGS: Liver: Heterogeneous in echotexture and lobulated in contour. Multiple calcified granulomata. There are relatively linear areas of bright reflectors causing acoustic shadowing, consistent with the pneumobilia seen by CT. There is normal directional flow in the portal vein. Common bile duct: Normal in size. Gallbladder: Surgically Absent. Pancreas: Not seen. It is partially surgically absent, and There is overlying bowel gas. Right kidney: Right kidney appears normal on the images provided. IMPRESSION: No acute findings seen sonographically. Postoperative changes. Reviewed, dictated and finalized at location A. ER SERVICE SUPERVISOR
--- NOTE | ~2025-05-05 | US_ITS ---
Clinical history:Elevated LFTs EXAM:Ultrasound retroperitoneal duplex limited TECHNIQUE:Multiple static grayscale images and color Doppler images were obtained. Comparisons: FINDINGS: Liver is hyperechoic likely due to fatty infiltration and/or hepatocellular disease. Main portal vein has hepatopedal flow with normal waveform. Right portal vein has hepatopedal flow with normal waveform. Left portal vein has hepatopedal flow with normal waveform. Hepatic artery has a normal waveform. The right, middle and left hepatic veins have hepatofugal flow with normal waveforms. Pancreas was not visualized. Cholecystectomy. Common duct measures 4.4 mm. IMPRESSION: 1. Hepatic vasculature as above. 2. Liver is hyperechoic likely due to fatty infiltration and/or hepatocellular disease. Consider a liver mass CT or MRI for further assessment. Reviewed, dictated and finalized at location Q. COORDINATOR
--- OUTSIDE RECORDS SUMMARY | 2025-05-05 07:53 | XMS_ITS | Encounter Summary ---
Author Organization [facility] Address [address] [place] [address] Phone Care Team Providers Care Director Internal Communications Name Role Phone Kenton Ricks MD Primary Care Provider + [phone] Pebbles Nelson MD Unavailable [phone] Aylin Russ MD Unavailable [phone] Maricruz Ramirez NP Unavailable [phone] Joanne Lopez RN Unavailable Padmini Leatha Carter Unavailable Unavailable Ben Chahal MD PhD Unavailable [phone] Chace Oliva MD Unavailable [phone] Giovanna Alexis MD Unavailable Taisha Suarez RN Unavailable Unavaila Sandra Aguirre MD Unavailable +[phone] Abby Higgins MD PhD Unavailable + Adrian Martinez MD Unavailable [phone] Vera Pérez Unavailable [phone] Jim Frausto MD Unavailable [phone] Анна Robert RN Unavailable [phone] Encounter Details Date Type Department Care Team [...] on file Legal Sex Male 12:58 AM ROPE TIER Gender Identity Male 11/11/2018 10:31 AM CDT Sexual Orientation Straight 06/09/2019 5: 34 PM ROPE TIER documented as of this encounter Plan of [...] COVID: Suspected 06/07/2023 06/07/2023 06/07/2023 12:46 PM ROPE TIER COVID19 06/07/2023 06/07/2023 06/22/2023 3:06 AM ROPE TIER COVID: Recovered Comment:Added based on recent COVID infection. 06/22/2023 06/22/2023 09/20/2023 3:05 AM C DT COVID: Suspected 07/24/2023 07/24/2023 07/24/2023 3:53 PM ROPE TIER Diarrhea 07/30/2023 07/30/2023 08/13/2023 3:05 AM ROPE TIER COVID: Suspected 08/30/2023 08/30/2023 08/30/2023 4:52 PM ROPE TIER COVID: Suspected 10/12/2023 10/12/2023 10/12/2023 7:57 PM CDT Rhino/Enterovirus 10/12/2023 10/12/2023 10/26/2023 3:05 AM CDT COVID: Suspected 07/10/2024 07/10/2024 07/10/2024 4:53 PM ROPE TIER COVID: Suspected Comment:07/16/2024 IP Review: no outstanding test, last RPP negative. Mary Tiwari RN 07/16/2024 07/16/2024 10:51 AM ROPE TIER COVID19 Comment:07/16/2024 IP Review: added by RN, RPP negative. Mary Tiwari RN 07/16/2024 07/16/2024 07/16/2024 10:51 AM ROPE TIER MRSA Comment:nasalMRSA Isolation Custodial 09/03/24 07/16/2024 08/15/2024 09/03/2024 6:[address] C. difficile suspected 07/19/2024 07/19/202407/19 2:34 PM ROPE TIER COVID: Suspected 07/23/2024 07/23/2024 07/23/2024 11:28 PM ROPE TIER C. difficile suspected 07/23/2024 07/24/202407/24 10:31 AM ROPE TIER Norovirus suspected 07/23/2024 07/24/2024 07/24/19 9:37 AM ROPE TIER VRE Comment:Contact Precautions (gown and gloves) - not eligible for IP review until 6 months after positive culture - Jerod QURESHI, CONY 10/01/24 07/24/2024 09/20/2024 03/19/2025 7:26 PM C DT COVID: Suspected 08/09/2024 08/09/2024 08/09/2024 9:40 AM ROPE TIER Influenza, adult Comment:08/26/2024 IP Review: pt afebrile but on antipyretics. Needs 24 hours off antipyretics and symptoms significantly improved/resolved in order for isolation to be discontinued. Mary Tiwari RN 08/15/2024 08/15/2024 08/29/2024 3:06 AM ROPE TIER Coronavirus, droplet 08/15/2024 08/15/202408/29/ 025 3:06 AM ROPE TIER C. difficile suspected 09/19/2024 09/19/202409/20 3:05 AM [...] as of this encounter Care Teams Director Internal Communications Relationship Specialty Start Date End Date Kenton Ricks MD PCP - General 08/14/16 Pebbles Nelson MD Referring Physician Cardiology 02/07/19 Aylin Russ MD [address] [facility] [address] [place] [address] Referring Physician Pulmonary Disease 02/07/19 Maricruz Ramirez NP [address] [facility] [address] [place] [address] Nurse Practitioner Cardiovascular Disease 09/25/21 Joanne Lopez, CONY Registered Nurse Pulmonary Disease 08/24/22 Leatha Cristina RMA Surgical Prehabilitation and Readiness (SPAR) Coordinator 09/01/22 01/02/23 Ben Chahal MD PhD 10 [facility] [address] 2 [place] [address] Medical Oncologist/Form Designer Medical Oncology 10/05/22 Chace Oliva MD [address] [facility] [address] [place] [address] Consulting Physician Infectious Diseases 12/22/2204/01 Giovanna Alexis MD [address] [facility] [address] [place] [address] Radiation Oncologist Radiation Oncology 03/09/23 Taisha Suarez, hosiery repairer Prehabilitation and Readiness (SPAR) Coordinator General Surgery 03/20/23 04/10/23 Sandra Ma MD [address] [facility] MEDICAL ONCOLOGY, [address]A, 7B, [address] [place] [address] Consulting Physician Medical Oncology 04/25/23 05/09/23 Abby Higgins MD PhD [address] [facility] [address] DIV IM MEDICAL ONCOLOGY, [address] 7A, 7B, 7C [place] [address] Medical Oncologist/Form Designer Medical Oncology 05/10/23 Adrian Martinez MD [address] DIV SURG TRANSPLANT, [address] [place] [address] Surgical Oncologist Surgical Oncology 05/28/23 Vera Pérez PA [address] [place] [id number] [place] [address] Physician Forensic Economist Colon and Rectal Surgery 09/13/23 Jim Frausto MD [address] [facility] [phone] [place] [address] Surgeon Colon and Rectal Surgery 11/21/23 Анна Robert, RN [address] [facility] [address] [place] [address] SHOP Outpatient Commercial Internship 09/29/24 10/01/24 documented as of this encounter
--- OUTSIDE RECORDS SUMMARY | 2025-05-05 07:53 | XMS_ITS | Encounter Summary ---
Author Organization [facility] Address [address] [place] [address] Phone Care Team Providers Care Surgical Dental Assistant Name Role Phone Kenton Ricks MD Primary Care Provider + [phone] Pebbles Nelson MD Unavailable [phone] Aylin Russ MD Unavailable [phone] Maricruz Ramirez NP Unavailable [phone] Joanne Lopez RN Unavailable Padmini Leatha Carter Unavailable Unavailable Ben Chahal MD PhD Unavailable [phone] Chace Oliva MD Unavailable [phone] Giovanna Alexis MD Unavailable Taisha Suarez RN Unavailable Unavaila Sandra Aguirre MD Unavailable [phone] Abby Higgins MD PhD Unavailable + Adrian Martinez MD Unavailable [phone] Vera Pérez Unavailable [phone] Jim Frausto MD Unavailable [phone] Анна Robert RN Unavailable [phone] Encounter Details Date Type Department Care Team (Latest Contact Info) Description 12/14/2016 Orders Only [facility] CONVERSION Scanning, Provider Social History Tobacco Use Types Packs/Day Years Used Date Smoking Tobacco: Never Assessed Sex and Gender Information Value Date Recorded Sex Assigned at Not on file Legal Sex Male 12:58 AM DRY PRESS OPERATOR HELPER Gender Identity Male 11/11/2018 10:31 AM CDT Sexual Orientation Straight 06/09/2019 5: 34 PM DRY PRESS OPERATOR HELPER documented as of this encounter [...] COVID: Suspected 06/07/2023 06/07/2023 06/07/2023 12:46 PM DRY PRESS OPERATOR HELPER COVID19 06/07/2023 06/07/2023 06/22/2023 3:06 AM DRY PRESS OPERATOR HELPER COVID: Recovered Comment:Added based on recent COVID infection. 06/22/2023 06/22/2023 09/20/2023 3:05 AM C DT COVID: Suspected 07/24/2023 07/24/2023 07/24/2023 3:53 PM DRY PRESS OPERATOR HELPER Diarrhea 07/30/2023 07/30/2023 08/13/2023 3:05 AM DRY PRESS OPERATOR HELPER COVID: Suspected 08/30/2023 08/30/2023 08/30/2023 4:52 PM DRY PRESS OPERATOR HELPER COVID: Suspected 10/12/2023 10/12/2023 10/12/2023 7:57 PM CDT Rhino/Enterovirus 10/12/2023 10/12/2023 10/26/2023 3:05 AM CDT COVID: Suspected 07/10/2024 07/10/2024 07/10/2024 4:53 PM DRY PRESS OPERATOR HELPER COVID: Suspected Comment:07/16/2024 IP Review: no outstanding test, last RPP negative. Mary Tiwari RN 07/16/2024 07/16/2024 10:51 AM DRY PRESS OPERATOR HELPER COVID19 Comment:07/16/2024 IP Review: added by RN, RPP negative. Mary Tiwari RN 07/16/2024 07/16/2024 07/16/2024 10:51 AM DRY PRESS OPERATOR HELPER MRSA Comment:nasalMRSA Isolation Skilled Nursing 09/03/24 07/16/2024 08/15/2024 09/03/2024 6:[address] C. difficile suspected 07/19/2024 07/19/202407/19 2:34 PM DRY PRESS OPERATOR HELPER COVID: Suspected 07/23/2024 07/23/2024 07/23/2024 11:28 PM DRY PRESS OPERATOR HELPER C. difficile suspected 07/23/2024 07/24/202407/24 10:31 AM DRY PRESS OPERATOR HELPER Norovirus suspected 07/23/2024 07/24/2024 07/24/19 9:37 AM DRY PRESS OPERATOR HELPER VRE Comment:Contact Precautions (gown and gloves) - not eligible for IP review until 6 months after positive culture - Jerod QURESHI, CONY 10/01/24 07/24/2024 09/20/2024 03/19/2025 7:26 PM C DT COVID: Suspected 08/09/2024 08/09/2024 08/09/2024 9:40 AM DRY PRESS OPERATOR HELPER Influenza, adult Comment:08/26/2024 IP Review: pt afebrile but on antipyretics. Needs 24 hours off antipyretics and symptoms significantly improved/resolved in order for isolation to be discontinued. Mary Tiwari RN 08/15/2024 08/15/2024 08/29/2024 3:06 AM DRY PRESS OPERATOR HELPER Coronavirus, droplet 08/15/2024 08/15/2024 025 3:06 AM DRY PRESS OPERATOR HELPER C. difficile suspected 09/19/2024 09/19/202409/20 [...] documented as of this encounter Care Teams Surgical Dental Assistant Relationship Specialty Start Date End Date Kenton Ricks MD PCP - General 08/14/16 Pebbles Nelson MD Referring Physician Cardiology 02/07/19 Aylin Russ MD [address] [place] [address] Referring Physician Pulmonary Disease 02/07/19 Maricruz Ramirez, TURPENTINE DISTILLER [address] [place] [address] Nurse Practitioner Cardiovascular Disease 09/25/21 Joanne Lopez, CONY Registered Nurse Pulmonary Disease 08/24/22 Leatha Cristina RMA Surgical Prehabilitation and Readiness (SPAR) Coordinator 09/01/22 01/02/23 Ben Chahal MD PhD 10 [facility] [address] 2 [place] [address] Medical Oncologist/Wall Taper Medical Oncology 10/05/22 Chace Oliva MD [address] [place] [address] Consulting Physician Infectious Diseases 12/22/2204/01 Giovanna Alexis MD [address] [place] [address] Radiation Oncologist Radiation Oncology 03/09/23 Taisha Suarez, commercial baking teacher Prehabilitation and Readiness (SPAR) Coordinator General Surgery 03/20/23 04/10/23 Sandra Ma MD [address] DIV IM MEDICAL ONCOLOGY, [facility] 7A, 7B, 7C [place] [address] Consulting Physician Medical Oncology 04/25/23 05/09/23 Abby Higgins MD PhD [address] DIV IM MEDICAL ONCOLOGY, [facility] 7A, 7B, 7C [place] [address] Medical Oncologist/Wall Taper Medical Oncology 05/10/23 Adrian Martinez MD [address] [facility] SURG TRANSPLANT, [facility] [address] [place] [address] Surgical Oncologist Surgical Oncology 05/28/23 Vera Pérez PA [address] [place] [id number] [place] [address] Physician Software Development Intern Colon and Rectal Surgery 09/13/23 Jim Frausto MD [address] [facility] [phone] [place] [address] Surgeon Colon and Rectal Surgery 11/21/23 Анна Robert, RN [address] [facility] [address] [place] [address] SHOP Outpatient Preventive Maintenance Engineer 09/29/24 10/01/24 documented as of this encounter
--- OUTSIDE RECORDS SUMMARY | 2025-05-05 07:53 | XMS_ITS | Encounter Summary ---
Author Organization [facility] Address [address] [place] [address] Phone Care Team Providers Care Director Of Psychiatry Name Role Phone Kenton Ricks MD Primary Care Provider + [phone] Pebbles Nelson MD Unavailable [phone] Aylin Russ MD Unavailable [phone] Maricruz Ramirez NP Unavailable [phone] Joanne Lopez RN Unavailable Padmini Leatha Carter Unavailable Unavailable Ben Chahal MD PhD Unavailable [phone] Chace Oliva MD Unavailable [phone] Giovanna Alexis MD Unavailable Taisha Suarez RN Unavailable Unavaila Sandra Aguirre MD Unavailable [phone] Abby Higgins MD PhD Unavailable + Adrian Martinez MD Unavailable [phone] Vera Pérez Unavailable Jim Frausto MD Unavailable [phone] Анна Robert RN Unavailable [phone] Encounter Details Date Type Department Care Team (Latest Contact Info) Description 11/15/2017 Orders Only [facility] Scanning, Provider Social History Tobacco Use Types Packs/Day Years Used Date Smoking Tobacco: Former Sex and Gender Information Value Date Recorded Sex Assigned at Not on file Legal Sex Male 12:[address] Gender Identity Male 11/11/2018 10:31 AM CDT Sexual Orientation Straight 06/09/2019 5: [address] M[address]ER documented as of this encounter Plan of [...] COVID: Suspected 06/07/2023 06/07/2023 06/07/2023 12:[address] MENDER COVID19 06/07/2023 06/07/2023 06/22/2023 3:[address] MENDER COVID: Recovered Comment:Added based on recent COVID infection. 06/22/2023 06/22/2023 09/20/2023 3:05 AM C DT COVID: Suspected 07/24/2023 07/24/2023 07/24/2023 3:[address]ENDER Diarrhea 07/30/2023 07/30/2023 08/13/2023 3:[address]ENDER COVID: Suspected 08/30/2023 08/30/2023 08/30/2023 4:[address]ENDER COVID: Suspected 10/12/2023 10/12/2023 10/12/2023 7:57 PM CDT Rhino/Enterovirus 10/12/2023 10/12/2023 10/26/2023 3:05 AM CDT COVID: Suspected 07/10/2024 07/10/2024 07/10/2024 4:[address]ENDER COVID: Suspected Comment:07/16/2024 IP Review: no outstanding test, last RPP negative. Mary Tiwari RN 07/16/2024 07/16/2024 10:[address]ER COVID19 Comment:07/16/2024 IP Review: added by CLAUDIO DONNELLY negative. Mary Tiwari RN 07/16/2024 07/16/2024 07/16/2024 10:[address] MRSA Comment:nasalMRSA Isolation [facility] 09/03/24 07/16/2024 08/15/2024 09/03/2024 6:[address] C. difficile suspected 07/19/2024 07/19/202407/19 2:[address]ENDER COVID: Suspected 07/23/2024 07/23/2024 07/23/2024 11:[address]ENDER C. difficile suspected 07/23/2024 07/24/202407/24 10:[address] Norovirus suspected 07/23/2024 07/24/2024 07/24/19 9:[address] VRE Comment:Contact Precautions (gown and gloves) - not eligible for IP review until 6 months after positive culture - Jerod QURESHI, CONY 10/01/24 07/24/2024 09/20/2024 03/19/2025 7:26 PM C DT COVID: Suspected 08/09/2024 08/09/2024 08/09/2024 9:[address]ER Influenza, adult Comment:08/26/2024 IP Review: pt afebrile but on antipyretics. Needs 24 hours off antipyretics and symptoms significantly improved/resolved in order for isolation to be discontinued. Mary Tiwari RN 08/15/2024 08/15/2024 08/29/2024 3:[address] MENDER Coronavirus, droplet 08/15/2024 08/15/2024 025 3:[address]END[address] C. difficile suspected 09/19/2024 09/19/202409/20 3:05 AM [...] of this encounter Care Teams Director Of Psychiatry Relationship Specialty Start Date End Date Kenton Ricks MD PCP - General 08/14/16 Pebbles Nelson MD Referring Physician Cardiology 02/07/19 Aylin Russ MD 45[address] [facility] [address] [place] [address] Referring Physician Pulmonary Disease 02/07/19 Maricruz Ramirez, MANAGER ANALYTICAL [address] [place] [address] Nurse Practitioner Cardiovascular Disease 09/25/21 Joanne Lopez, RN Registered Nurse Pulmonary Disease 08/24/22 Leatha Cristina RMA Surgical Prehabilitation and Readiness (SPAR) Coordinator 09/01/22 01/02/23 Ben Chahal MD PhD 10 [facility] # 2 DIV [place] [address] Medical Oncologist/Finance Administrator Medical Oncology 10/05/22 Chace Oliva MD [address] [place] [address] Consulting Physician Infectious Diseases 12/22/2204/01 Giovanna Alexis MD [address] [place] [address] Radiation Oncologist Radiation Oncology 03/09/23 Taisha Suarez, glass edger Prehabilitation and Readiness (SPAR) Coordinator General Surgery 03/20/23 04/10/23 Sandra Ma MD [address] [facility] DIV IM MEDICAL ONCOLOGY, [address]A, 7B, [address]C [place] [address] Consulting Physician Medical Oncology 04/25/23 05/09/23 Abby Higgins MD PhD 49[address] [facility] IM MEDICAL ONCOLOGY, [facility] 7A, 7B, 7C [place] [address] Medical Oncologist/Finance Administrator Medical Oncology 05/10/23 Adrian Martinez MD [address] [facility] DIV SURG TRANSPLANT, [address] [place] [address] Surgical Oncologist Surgical Oncology 05/28/23 Vera Pérez PA [address] [place] [id number] [place] [address] Physician Home Health Registered Nurse Colon and Rectal Surgery 09/13/23 Jim Frausto MD [address] [facility] [phone] [place] [address] Surgeon Colon and Rectal Surgery 11/21/23 Анна Robert, RN [address] [facility] [address] [place] [address] SHOP Outpatient Aircraft Life Support Fitter 09/29/24 10/01/24 documented as of this encounter
--- OUTSIDE RECORDS SUMMARY | 2025-05-05 07:53 | XMS_ITS | Encounter Summary ---
Author Organization [facility] Address [address] [place] [address] Phone Care Team Providers Care Environmental Protection Economist Name Role Phone Kenton Ricks MD Primary Care Provider + [phone] Kenton Ricks MD Primary Care Provider + [phone] Pebbles Nelson MD Unavailable [phone] Aylin Russ MD Unavailable [phone] Maricruz Ramirez NP Unavailable [phone] Joanne Lopez RN Unavailable Padmini Leatha Carter Unavailable Unavailable Ben Chahal MD PhD Unavailable [phone] Chace Oliva MD Unavailable [phone] Giovanna Alexis MD Unavailable Taisha Suarez RN Unavailable Unavaila Sandra Aguirre MD Unavailable +[phone] Abby Higgins MD PhD Unavailable + Adrian Martinez MD Unavailable Vera Pérez Unavailable Jim Frausto MD Unavailable Анна Robert RN Unavailable [phone] Encounter Details Date Type Department Care Team (Late st Contact Info) Description 06/02/2016 Orders Only [facility] IM CAR CLINCONV Provider, Max, [address] [place] [address] Social History Tobacco Use Types Packs/Day Years Used Date Smoking Tobacco: Never Assessed Sex and Gender Information Value Date Recorded Sex Assigned at Not on file Legal Sex Male 12:58 AM TRANSACTION PROCESSOR Gender Identity Male 11/11/2018 10:31 AM CDT Sexual Orientation Straight 06/09/2019 5: 34 PM TRANSACTION PROCESSOR documented as of this encounter Plan of [...] COVID: Suspected 06/07/2023 06/07/2023 06/07/2023 12:46 PM TRANSACTION PROCESSOR COVID19 06/07/2023 06/07/2023 06/22/2023 3:06 AM TRANSACTION PROCESSOR COVID: Recovered Comment:Added based on recent COVID infection. 06/22/2023 06/22/2023 09/20/2023 3:05 AM C DT COVID: Suspected 07/24/2023 07/24/2023 07/24/2023 3:53 PM TRANSACTION PROCESSOR Diarrhea 07/30/2023 07/30/2023 08/13/2023 3:05 AM TRANSACTION PROCESSOR COVID: Suspected 08/30/2023 08/30/2023 08/30/2023 4:52 PM TRANSACTION PROCESSOR COVID: Suspected 10/12/2023 10/12/2023 10/12/2023 7:57 PM CDT Rhino/Enterovirus 10/12/2023 10/12/2023 10/26/2023 3:05 AM CDT COVID: Suspected 07/10/2024 07/10/2024 07/10/2024 4:53 PM TRANSACTION PROCESSOR COVID: Suspected Comment:07/16/2024 IP Review: no outstanding test, last RPP negative. Mary Tiwari RN 07/16/2024 07/16/2024 10:51 AM TRANSACTION PROCESSOR COVID19 Comment:07/16/2024 IP Review: added by RN, RPP negative. Mary Tiwari RN 07/16/2024 07/16/2024 07/16/2024 10:51 AM TRANSACTION PROCESSOR MRSA Comment:nasalMRSA Isolation Care Home 09/03/24 07/16/2024 08/15/2024 09/03/2024 6:[address] C. difficile suspected 07/19/2024 07/19/202407/19 2:34 PM TRANSACTION PROCESSOR COVID: Suspected 07/23/2024 07/23/2024 07/23/2024 11:28 PM TRANSACTION PROCESSOR C. difficile suspected 07/23/2024 07/24/202407/24 10:31 AM TRANSACTION PROCESSOR Norovirus suspected 07/23/2024 07/24/2024 07/24/19 9:37 AM TRANSACTION PROCESSOR VRE Comment:Contact Precautions (gown and gloves) - not eligible for IP review until 6 months after positive culture - Jerod QURESHI, CONY 10/01/24 07/24/2024 09/20/2024 03/19/2025 7:26 PM C DT COVID: Suspected 08/09/2024 08/09/2024 08/09/2024 9:40 AM TRANSACTION PROCESSOR Influenza, adult Comment:08/26/2024 IP Review: pt afebrile but on antipyretics. Needs 24 hours off antipyretics and symptoms significantly improved/resolved in order for isolation to be discontinued. Mary Tiwari RN 08/15/2024 08/15/2024 08/29/2024 3:06 AM TRANSACTION PROCESSOR Coronavirus, droplet 08/15/2024 08/15/202408/29/ 025 3:06 AM TRANSACTION PROCESSOR C. difficile suspected 09/19/2024 09/19/202409/20 3:05 AM [...] documented as of this encounter Care Teams Environmental Protection Economist Relationship Specialty Start Date End Date Kenton Ricks MD PCP - General 08/14/16 Kenton Ricks MD PCP - General 09/17/08 08/13/16 Pebbles Nelson MD Referring Physician Cardiology 02/07/19 Aylin Russ MD [address] [facility] [address] [place] [address] Referring Physician Pulmonary Disease 02/07/19 Maricruz Ramirez NP [address] [facility] [address] [place] [address] Nurse Practitioner Cardiovascular Disease 09/25/21 Joanne Lopez, CONY Registered Nurse Pulmonary Disease 08/24/22 Leatha Cristina RMA Surgical Prehabilitation and Readiness (SPAR) Coordinator 09/01/22 01/02/23 Ben Chahal MD PhD 10 [facility] # 2 [place] [address] Medical Oncologist/Field Technician Medical Oncology 10/05/22 Chace Oliva MD [address] [place] [address] Consulting Physician Infectious Diseases 12/22/2204/01 Giovanna Alexis MD [address] [place] [address] Radiation Oncologist Radiation Oncology 03/09/23 Taisha Suarez, shipping coordinator Prehabilitation and Readiness (SPAR) Coordinator General Surgery 03/20/23 04/10/23 Sandra Ma MD [address] DIV IM MEDICAL ONCOLOGY, [address], [address]B, [address] [place] [address] Consulting Physician Medical Oncology 04/25/23 05/09/23 Abby Higgins MD PhD [address] [facility] [address] DIV IM MEDICAL ONCOLOGY, [address]A, 7B, [address]C [place] [address] Medical Oncologist/Field Technician Medical Oncology 05/10/23 Adrian Martinez MD [address] [facility] [address] DIV SURG TRANSPLANT, [facility] [address] [place] [address] Surgical Oncologist Surgical Oncology 05/28/23 Vera Pérez PA [address] [place] [id number] [place] [address] Physician Spring Fitter Colon and Rectal Surgery 09/13/23 Jim Frausto MD [address] [facility] [phone] [place] [address] Surgeon Colon and Rectal Surgery 11/21/23 Анна Robert, RN [address] [facility] [address] [place] [address] SHOP Outpatient Supervisor Cytogenetic Laboratory 09/29/24 10/01/24 documented as of this encounter
--- OUTSIDE RECORDS SUMMARY | 2025-05-05 07:53 | XMS_ITS | Encounter Summary ---
Author Organization [facility] Address [address] [place] [address] Phone Care Team Providers Care Rn Diabetes Name Role Phone Kenton Ricks MD Primary Care Provider + [phone] Pebbles Nelson MD Unavailable [phone] Aylin Russ MD Unavailable [phone] Maricruz Ramirez NP Unavailable [phone] Joanne Lopez RN Unavailable Padmini Leatha Carter Unavailable Unavailable Ben Chahal MD PhD Unavailable [phone] Chace Oliva MD Unavailable [phone] Giovanna Alexis MD Unavailable Taisha Suarez RN Unavailable Unavaila Sandra Aguirre MD Unavailable +[phone] Abby Higgins MD PhD Unavailable + Adrian Martinez MD Unavailable Vera Pérez Unavailable Jim Frausto MD Unavailable Анна Robert RN Unavailable Encounter Details Date Type Department Care Team (Late st Contact Info) Description 09/23/2018 Telephone [facility] Cardiology [address] [facility] Medicine 8th [place] [address] [place] [address] Pebbles Nelson MD [address] [facility] [address] [place] [address] Social History Tobacco Use Types Packs/Day Years Used Date Smoking Tobacco: Former Smokeless Tobacco: Never Alcohol Use Standard Drinks/Week Comments Yes 0 (1 standard drink = 0.6 oz pur e alcohol) Occassional Sex and Gender Information Value Date Recorded Sex Assigned at Not on file Legal Sex Male 12:58 AM WHITE METAL CASTER Gender Identity Male 11/11/2018 10:31 AM CDT Sexual Orientation Straight 06/09/2019 5 :34 PM WHITE METAL CASTER documented as of this encounter Plan of [...] COVID: Suspected 06/07/2023 06/07/2023 06/07/2023 12:46 PM WHITE METAL CASTER COVID19 06/07/2023 06/07/2023 06/22/2023 3:06 AM WHITE METAL CASTER COVID: Recovered Comment:Added based on recent COVID infection. 06/22/2023 06/22/2023 09/20/2023 3:05 AM C DT COVID: Suspected 07/24/2023 07/24/2023 07/24/2023 3:53 PM WHITE METAL CASTER Diarrhea 07/30/2023 07/30/2023 08/13/2023 3:05 AM WHITE METAL CASTER COVID: Suspected 08/30/2023 08/30/2023 08/30/2023 4:52 PM WHITE METAL CASTER COVID: Suspected 10/12/2023 10/12/2023 10/12/2023 7:57 PM CDT Rhino/Enterovirus 10/12/2023 10/12/2023 10/26/2023 3:05 AM CDT COVID: Suspected 07/10/2024 07/10/2024 07/10/2024 4:53 PM WHITE METAL CASTER COVID: Suspected Comment:07/16/2024 IP Review: no outstanding test, last RPP negative. Mary Tiwari RN 07/16/2024 07/16/2024 10:51 AM WHITE METAL CASTER COVID19 Comment:07/16/2024 IP Review: added by RN, RPP negative. Mary Tiwari RN 07/16/2024 07/16/2024 07/16/2024 10:51 AM WHITE METAL CASTER MRSA Comment:nasalMRSA Isolation Custodial 09/03/24 07/16/2024 08/15/2024 09/03/2024 6:[address] C. difficile suspected 07/19/2024 07/19/202407/19 2:34 PM WHITE METAL CASTER COVID: Suspected 07/23/2024 07/23/2024 07/23/2024 11:28 PM WHITE METAL CASTER C. difficile suspected 07/23/2024 07/24/202407/24 10:31 AM WHITE METAL CASTER Norovirus suspected 07/23/2024 07/24/2024 07/24/19 9:37 AM WHITE METAL CASTER VRE Comment:Contact Precautions (gown and gloves) - not eligible for IP review until 6 months after positive culture - Jerod QURESHI, CONY 10/01/24 07/24/2024 09/20/2024 03/19/2025 7:26 PM C DT COVID: Suspected 08/09/2024 08/09/2024 08/09/2024 9:40 AM WHITE METAL CASTER Influenza, adult Comment:08/26/2024 IP Review: pt afebrile but on antipyretics. Needs 24 hours off antipyretics and symptoms significantly improved/resolved in order for isolation to be discontinued. Mary Tiwari RN 08/15/2024 08/15/2024 08/29/2024 3:06 AM WHITE METAL CASTER Coronavirus, droplet 08/15/2024 08/15/2024 025 3:06 AM WHITE METAL CASTER C. difficile suspected 09/19/2024 09/19/202409/20 3:05 AM [...] as of this encounter Care Teams Rn Diabetes Relationship Specialty Start Date End Date Kenton Ricks MD PCP - General 08/14/16 Pebbles Nelson MD Referring Physician Cardiology 02/07/19 Aylin Russ MD [address] [facility] [address] [place] [address] Referring Physician Pulmonary Disease 02/07/19 Maricruz Ramirez, OCCUPATIONAL THERAPIST [address] [facility] [address] [place] [address] Nurse Practitioner Cardiovascular Disease 09/25/21 Joanne Lopez, CONY Registered Nurse Pulmonary Disease 08/24/22 Leatha Cristina RMA Surgical Prehabilitation and Readiness (SPAR) Coordinator 09/01/22 01/02/23 Ben Chahal MD PhD 10 [facility] # 2 [place] [address] Medical Oncologist/Surveyor Helper Medical Oncology 10/05/22 Chace Oliva MD [address] [facility] [address] [place] [address] Consulting Physician Infectious Diseases 12/22/2204/01 Giovanna Alexis MD [address] [facility] [address] [place] [address] Radiation Oncologist Radiation Oncology 03/09/23 Taisha Suarez, road machine runner Prehabilitation and Readiness (SPAR) Coordinator General Surgery 03/20/23 04/10/23 Sandra Ma MD [address] DIV IM MEDICAL ONCOLOGY, [address], [address]B, [address] [place] [address] Consulting Physician Medical Oncology 04/25/23 05/09/23 Abby Higgins MD PhD [address] DIV IM MEDICAL ONCOLOGY, [address]A, 7B, [address] [place] [address] Medical Oncologist/Surveyor Helper Medical Oncology 05/10/23 Adrian Martinez MD [address] [facility] DIV SURG TRANSPLANT, [facility] [address] [place] [address] Surgical Oncologist Surgical Oncology 05/28/23 Vera Pérez PA [address] [id number] [place] [address] Physician Feed Research Technician Colon and Rectal Surgery 09/13/23 Jim Frausto MD [address] [facility] [phone] [place] [address] Surgeon Colon and Rectal Surgery 11/21/23 Анна Robert, RN [address] [facility] [address] [place] [address] SHOP Outpatient Corrosion Control Engineer 09/29/24 10/01/24 documented as of this encounter
--- OUTSIDE RECORDS SUMMARY | 2025-05-05 07:53 | XMS_ITS | Encounter Summary ---
Author Organization [facility] Address [address] [place] [address] Phone Care Team Providers Care Primary Substance Abuse Counselor Name Role Phone Kenton Ricks MD Primary Care Provider + [phone] Kenton Ricks MD Primary Care Provider + [phone] Pebbles Nelson MD Unavailable [phone] Aylin Russ MD Unavailable [phone] Maricruz Ramirez NP Unavailable [phone] Joanne Lopez RN Unavailable Padmini Leatha Carter Unavailable Unavailable Ben Chahal MD PhD Unavailable [phone] Chace Oliva MD Unavailable +[phone] Giovanna Alexis MD Unavailable Taisha Suarez RN Unavailable Unavaila Sandra Aguirre MD Unavailable [phone] Abby Higgins MD PhD Unavailable + Adrian Martinez MD Unavailable [phone] Vera Pérez Unavailable Jim Frausto MD Unavailable Анна Robert RN Unavailable [phone] Encounter Details Date Type Department Care Team (Late st Contact Info) Description 05/19/2016 Orders Only [facility] Provider, Max, [address] [place] [address] Social History Tobacco Use Types Packs/Day Years Used Date Smoking Tobacco: Never Assessed Sex and Gender Information Value Date Recorded Sex Assigned at Not on file Legal Sex Male 12:58 AM GLUING MACHINE OFFBEARER Gender Identity Male 11/11/2018 10:31 AM CDT Sexual Orientation Straight 06/09/2019 5: 34 PM GLUING MACHINE OFFBEARER documented as of this encounter Plan of [...] COVID: Suspected 06/07/2023 06/07/2023 06/07/2023 12:46 PM GLUING MACHINE OFFBEARER COVID19 06/07/2023 06/07/2023 06/22/2023 3:06 AM GLUING MACHINE OFFBEARER COVID: Recovered Comment:Added based on recent COVID infection. 06/22/2023 06/22/2023 09/20/2023 3:05 AM C DT COVID: Suspected 07/24/2023 07/24/2023 07/24/2023 3:53 PM GLUING MACHINE OFFBEARER Diarrhea 07/30/2023 07/30/2023 08/13/2023 3:05 AM GLUING MACHINE OFFBEARER COVID: Suspected 08/30/2023 08/30/2023 08/30/2023 4:52 PM GLUING MACHINE OFFBEARER COVID: Suspected 10/12/2023 10/12/2023 10/12/2023 7:57 PM CDT Rhino/Enterovirus 10/12/2023 10/12/2023 10/26/2023 3:05 AM CDT COVID: Suspected 07/10/2024 07/10/2024 07/10/2024 4:53 PM GLUING MACHINE OFFBEARER COVID: Suspected Comment:07/16/2024 IP Review: no outstanding test, last RPP negative. Mary Tiwari RN 07/16/2024 07/16/2024 10:51 AM GLUING MACHINE OFFBEARER COVID19 Comment:07/16/2024 IP Review: added by RN, RPP negative. Mary Tiwari RN 07/16/2024 07/16/2024 07/16/2024 10:51 AM GLUING MACHINE OFFBEARER MRSA Comment:nasalMRSA Isolation Senior Care 09/03/24 07/16/2024 08/15/2024 09/03/2024 6:[address] C. difficile suspected 07/19/2024 07/19/202407/19 2:34 PM GLUING MACHINE OFFBEARER COVID: Suspected 07/23/2024 07/23/2024 07/23/2024 11:28 PM GLUING MACHINE OFFBEARER C. difficile suspected 07/23/2024 07/24/202407/24 10:31 AM GLUING MACHINE OFFBEARER Norovirus suspected 07/23/2024 07/24/2024 07/24/19 9:37 AM GLUING MACHINE OFFBEARER VRE Comment:Contact Precautions (gown and gloves) - not eligible for IP review until 6 months after positive culture - Jerod LEEN, RN 10/01/24 07/24/2024 09/20/2024 03/19/2025 7:26 PM C DT COVID: Suspected 08/09/2024 08/09/2024 08/09/2024 9:40 AM GLUING MACHINE OFFBEARER Influenza, adult Comment:08/26/2024 IP Review: pt afebrile but on antipyretics. Needs 24 hours off antipyretics and symptoms significantly improved/resolved in order for isolation to be discontinued. Mary Tiwari, CONY 08/15/2024 08/15/2024 08/29/2024 3:06 AM GLUING MACHINE OFFBEARER Coronavirus, droplet 08/15/2024 08/15/2024 025 3:06 AM GLUING MACHINE OFFBEARER C. difficile suspected 09/19/2024 09/19/202409/20 3:05 AM [...] Aylin Russ MD [address] [place] [address] Referring Physician Pulmonary Disease 02/07/19 Maricruz Ramirez NP [address] [facility] [address] [place] [address] Nurse Practitioner Cardiovascular Disease 09/25/21 Joanne Lopez, CONY Registered Nurse Pulmonary Disease 08/24/22 Leatha Cristina RMA Surgical Prehabilitation and Readiness (SPAR) Coordinator 09/01/22 01/02/23 Ben Chahal MD PhD 10 [facility] [address] 2 [place] [address] Medical Oncologist/Polytechnic Registrar Medical Oncology 10/05/22 Chace Oliva MD [address] [place] [address] Consulting Physician Infectious Diseases 12/22/2204/01 Giovanna Alexis MD [address] [place] [address] Radiation Oncologist Radiation Oncology 03/09/23 Taisha Suarez, airfield operations specialist Prehabilitation and Readiness (SPAR) Coordinator General Surgery 03/20/23 04/10/23 Sandra Ma MD [address] DIV IM MEDICAL ONCOLOGY, [address]A, 7B, [address]C [place] [address] Consulting Physician Medical Oncology 04/25/23 05/09/23 Abby Higgins MD PhD [address] DIV IM MEDICAL ONCOLOGY, [address]A, 7B, [address] [place] [address] Medical Oncologist/Polytechnic Registrar Medical Oncology 05/10/23 Adrian Martinez MD [address] DIV SURG TRANSPLANT, [address] [place] [address] Surgical Oncologist Surgical Oncology 05/28/23 Vera Pérez PA [address] [place] [phone] [place] [address] Physician Airport Refueling Handler Colon and Rectal Surgery 09/13/23 Jim Frausto MD [address] [facility] [phone] [place] [address] Surgeon Colon and Rectal Surgery 11/21/23 Анна Robert RN [address] [facility] [address] [place] [address] SHOP Outpatient Traffic Survey Technician 09/29/24 10/01/24 documented as of this encounter
--- OUTSIDE RECORDS SUMMARY | 2025-05-05 07:53 | XMS_ITS | Encounter Summary ---
Author Organization [facility] Address [address] [place] [address] Phone Care Team Providers Care Chief Librarian Extension Department Name Role Phone Kenton Ricks MD Primary Care Provider + [phone] Pebbles Nelson MD Unavailable [phone] Aylin Russ MD Unavailable [phone] Maricruz Ramirez NP Unavailable [phone] Joanne Lopez RN Unavailable Padmini Ben Walker MD PhD Unavailable [phone] Giovanna Alexis MD Unavailable Abby Higgins MD PhD Unavailable + Adrian Martinez MD Unavailable [phone] Vera Pérez Unavailable [phone] Jim Frausto MD Unavailable [phone] Encounter Details Date Type Department Care Team (Late st Contact Info) Description 04/24/2025 Results Follow-Up [facility] Medicine Oncology [address] [facility] Floor 8 [place] [address] Ben Chahal MD PhD [address] [place] [address] NM bone scan whole body Social History Tobacco Use Types Packs/Day Years [...] week 01/13/2025 How often do you attend [facility] or scientology services? More than 4 [...] Recorded PHQ-2 Total Score 1 09/21/2024 [facility] [...] any time in the past 12 m [facility], were you homeless or living in a mcfp (including now)? No 01/13/2025 Social Connection and [...] any time in the past 12 m [place], were you homeless or living in a mcfp (including now)? No 04/01/2025 [facility] Utilities Answer Date Recorded In the past 12 months has th e [employer], gas, oil, or water company threatened to [...] on file Legal Sex Male 12:58 AM MAKE UP OPERATOR Gender Identity Male 11/11/2018 10:31 AM CDT Sexual Orientation Straight 06/09/2019 5: 34 PM MAKE UP OPERATOR documented as of this encounter Plan of Treatment Not on file documented as of this encounter Visit Diagnoses Not on filedocumented in this encounter Care Teams Chief Librarian Extension Department Relationship Specialty Start Date End Date Kenton Ricks MD PCP - General 08/14/16 Pebbles Nelson MD Referring Physician Cardiology 02/07/19 Aylin Russ MD [address] [place], [place] [address] Referring Physician Pulmonary Disease 02/07/19 Maricruz Ramirez NP [address] [place], [place] [address] Nurse Practitioner Cardiovascular Disease 09/25/21 Joanne Lopez, RN Registered Nurse Pulmonary Disease 08/24/22 Ben Chahal MD PhD [address] [facility] [address] [place] [address] Medical Oncologist/Hematologis t Medical Oncology 10/05/22 Giovanna Alexis MD [address] [facility] [address] [place] [address] Radiation Oncologist Radiation Oncology 03/09/23 Abby Higgins MD PhD [address] DIV IM MEDICAL ONCOLOGY, [facility] 7A, 7B, 7C [place] [address] Medical Oncologist/Hematologis t Medical Oncology 05/10/23 Adrian Martinez MD [address] DIV SURG TRANSPLANT, [facility] [address] [place] [address] Surgical Oncologist Surgical Oncology 05/28/23 Vera Pérez PA [address] [id number] [place] [address] Physician Supervisor Baking Colon and Rectal Surgery 09/13/23 Jim Frausto MD [address] [facility] [phone] [place] [address] Surgeon Colon and Rectal Surgery 11/21/23 documented as of this encounter
--- OUTSIDE RECORDS SUMMARY | 2025-05-05 07:53 | XMS_ITS | Encounter Summary ---
Author Organization [facility] Address [address] [place] [address] Phone Care Team Providers Care Doll Dresser Name Role Phone Kenton Ricks MD Primary Care Provider + [phone] Pebbles Nelson MD Unavailable [phone] Aylin Russ MD Unavailable [phone] Maricruz Ramirez NP Unavailable [phone] Joanne Lopez RN Unavailable Padmini Leatha Carter Unavailable Unavailable Ben Chahal MD PhD Unavailable [phone] Chace Oliva MD Unavailable [phone] Giovanna Alexis MD Unavailable Taisha Suarez RN Unavailable Unavaila Sandra Aguirre MD Unavailable [phone] Abby Higgins MD PhD Unavailable + Adrian Martinez MD Unavailable Vera Pérez Unavailable [phone] Jmi Frausto MD Unavailable [phone] Анна Robert RN Unavailable [phone] Encounter Details Date Type Department Care Team (Late st Contact Info) Description 07/13/2017 Orders Only [facility] Provider, MD Max [address] [place], [place] [id number] Social History Tobacco Use Types Packs/Day Years Used Date Smoking Tobacco: Former Sex and Gender Information Value Date Recorded Sex Assigned at Not on file Legal Sex Male 12:58 AM PHLEBOTOMIST LAB ASSISTANT Gender Identity Male 11/11/2018 10:31 AM CDT Sexual Orientation Straight 06/09/2019 5: 34 PM PHLEBOTOMIST LAB ASSISTANT documented as of this encounter Plan [...] COVID: Suspected 06/07/2023 06/07/2023 06/07/2023 12:46 PM PHLEBOTOMIST LAB ASSISTANT COVID19 06/07/2023 06/07/2023 06/22/2023 3:06 AM PHLEBOTOMIST LAB ASSISTANT COVID: Recovered Comment:Added based on recent COVID infection. 06/22/2023 06/22/2023 09/20/2023 3:05 AM C DT COVID: Suspected 07/24/2023 07/24/2023 07/24/2023 3:53 PM PHLEBOTOMIST LAB ASSISTANT Diarrhea 07/30/2023 07/30/2023 08/13/2023 3:05 AM PHLEBOTOMIST LAB ASSISTANT COVID: Suspected 08/30/2023 08/30/2023 08/30/2023 4:52 PM PHLEBOTOMIST LAB ASSISTANT COVID: Suspected 10/12/2023 10/12/2023 10/12/2023 7:57 PM CDT Rhino/Enterovirus 10/12/2023 10/12/2023 10/26/2023 3:05 AM CDT COVID: Suspected 07/10/2024 07/10/2024 07/10/2024 4:53 PM PHLEBOTOMIST LAB ASSISTANT COVID: Suspected Comment:07/16/2024 IP Review: no outstanding test, last RPP negative. Mary Tiwari RN 07/16/2024 07/16/2024 10:51 AM PHLEBOTOMIST LAB ASSISTANT COVID19 Comment:07/16/2024 IP Review: added by RN, RPP negative. Mary Tiwari RN 07/16/2024 07/16/2024 07/16/2024 10:51 AM PHLEBOTOMIST LAB ASSISTANT MRSA Comment:nasalMRSA Isolation Senior Care 09/03/24 07/16/2024 08/15/2024 09/03/2024 6:[address] C. difficile suspected 07/19/2024 07/19/202407/19 2:34 PM PHLEBOTOMIST LAB ASSISTANT COVID: Suspected 07/23/2024 07/23/2024 07/23/2024 11:28 PM PHLEBOTOMIST LAB ASSISTANT C. difficile suspected 07/23/2024 07/24/202407/24 10:31 AM PHLEBOTOMIST LAB ASSISTANT Norovirus suspected 07/23/2024 07/24/2024 07/24/19 9:37 AM PHLEBOTOMIST LAB ASSISTANT VRE Comment:Contact Precautions (gown and gloves) - not eligible for IP review until 6 months after positive culture - Jerod QURESHI, RN 10/01/24 07/24/2024 09/20/2024 03/19/2025 7:26 PM C DT COVID: Suspected 08/09/2024 08/09/2024 08/09/2024 9:40 AM PHLEBOTOMIST LAB ASSISTANT Influenza, adult Comment:08/26/2024 IP Review: pt afebrile but on antipyretics. Needs 24 hours off antipyretics and symptoms significantly improved/resolved in order for isolation to be discontinued. Mary Tiwari RN 08/15/2024 08/15/2024 08/29/2024 3:06 AM PHLEBOTOMIST LAB ASSISTANT Coronavirus, droplet 08/15/2024 08/15/2024 025 3:06 AM PHLEBOTOMIST LAB ASSISTANT C. difficile suspected 09/19/2024 09/19/202409/20 3:05 [...] documented as of this encounter Care Teams Doll Dresser Relationship Specialty Start Date End Date Kenton Ricks MD PCP - General 08/14/16 Pebbles Nelson MD Referring Physician Cardiology 02/07/19 Aylin Russ MD [address] [facility] [address] [place] [address] Referring Physician Pulmonary Disease 02/07/19 Maricruz Ramirez, HOME CARE CONSULTANT [address] [facility] [address] [place] [address] Nurse Practitioner Cardiovascular Disease 09/25/21 Joanne Lopez, CONY Registered Nurse Pulmonary Disease 08/24/22 Leatha Cristina RMA Surgical Prehabilitation and Readiness (SPAR) Coordinator 09/01/22 01/02/23 Ben Chahal MD PhD 10 [facility] # 2 [place] [address] Medical Oncologist/Stripper And Printer Medical Oncology 10/05/22 Chace Oliva MD [address] [facility] [address] [place] [address] Consulting Physician Infectious Diseases 12/22/2204/01 Giovanna Alexis MD [address] [facility] [address] [place] [address] Radiation Oncologist Radiation Oncology 03/09/23 Taisha Suarez, senior marketing associate Prehabilitation and Readiness (SPAR) Coordinator General Surgery 03/20/23 04/10/23 Sandra Ma MD [address] [facility] DIV IM MEDICAL ONCOLOGY, [address]A, 7B, [address] [place] [address] Consulting Physician Medical Oncology 04/25/23 05/09/23 Abby Higgins MD PhD [address] [facility] DIV IM MEDICAL ONCOLOGY, [address]A, 7B, [address] [place] [address] Medical Oncologist/Stripper And Printer Medical Oncology 05/10/23 Adrian Martinez MD [address] [facility] DIV SURG TRANSPLANT, [address] [place] [address] Surgical Oncologist Surgical Oncology 05/28/23 Vera Pérez PA [address] [place] [id number] [place] [address] Physician Evaporator Operator Molasses Colon and Rectal Surgery 09/13/23 Jim Frausto MD [address] [facility] [phone] [place] [address] Surgeon Colon and Rectal Surgery 11/21/23 Анна Robert, RN 45[address] [facility] [address] [place] [address] SHOP Outpatient Sign Hanger 09/29/24 10/01/24 documented as of this encounter
--- OUTSIDE RECORDS SUMMARY | 2025-05-05 07:53 | XMS_ITS | Encounter Summary ---
Author Organization [facility] Address [address] [place] [address] Phone Care Team Providers Care Integration Lead Name Role Phone Kenton Ricks MD Primary Care Provider + [phone] Pebbles Nelson MD Unavailable [phone] Aylin Russ MD Unavailable +[phone] Maricruz Ramirez NP Unavailable [phone] Joanne Lopez RN Unavailable Padmini Leatah Carter Unavailable Unavailable Ben Chahal MD PhD Unavailable [phone] Chace Oliva MD Unavailable [phone] Giovanna Alexis MD Unavailable Taisha Suarez RN Unavailable Unavaila Sandra Aguirre MD Unavailable +[phone] Abby Higgins MD PhD Unavailable + Adrian Martinez MD Unavailable [phone] Vera Pérez Unavailable [phone] Jim Frausto MD Unavailable [phone] Анна Robert RN Unavailable [phone] Encounter Details Date Type Department Care Team [...] on file Legal Sex Male 12:58 AM NUT PROCESSING SUPERVISOR Gender Identity Male 11/11/2018 10:31 AM CDT Sexual Orientation Straight 06/09/2019 5: 34 PM NUT PROCESSING SUPERVISOR documented as of this encounter Plan [...] COVID: Suspected 06/07/2023 06/07/2023 06/07/2023 12:46 PM NUT PROCESSING SUPERVISOR COVID19 06/07/2023 06/07/2023 06/22/2023 3:06 AM NUT PROCESSING SUPERVISOR COVID: Recovered Comment:Added based on recent COVID infection. 06/22/2023 06/22/2023 09/20/2023 3:05 AM C DT COVID: Suspected 07/24/2023 07/24/2023 07/24/2023 3:53 PM NUT PROCESSING SUPERVISOR Diarrhea 07/30/2023 07/30/2023 08/13/2023 3:05 AM NUT PROCESSING SUPERVISOR COVID: Suspected 08/30/2023 08/30/2023 08/30/2023 4:52 PM NUT PROCESSING SUPERVISOR COVID: Suspected 10/12/2023 10/12/2023 10/12/2023 7:57 PM CDT Rhino/Enterovirus 10/12/2023 10/12/2023 10/26/2023 3:05 AM CDT COVID: Suspected 07/10/2024 07/10/2024 07/10/2024 4:53 PM NUT PROCESSING SUPERVISOR COVID: Suspected Comment:07/16/2024 IP Review: no outstanding test, last RPP negative. Mary Tiwari RN 07/16/2024 07/16/2024 10:51 AM NUT PROCESSING SUPERVISOR COVID19 Comment:07/16/2024 IP Review: added by RN, RPP negative. Mary Tiwari RN 07/16/2024 07/16/2024 07/16/2024 10:51 AM NUT PROCESSING SUPERVISOR MRSA Comment:nasalMRSA Isolation [facility] 09/03/24 07/16/2024 08/15/2024 09/03/2024 6:[address] C. difficile suspected 07/19/2024 07/19/202407/19 2:34 PM NUT PROCESSING SUPERVISOR COVID: Suspected 07/23/2024 07/23/2024 07/23/2024 11:28 PM NUT PROCESSING SUPERVISOR C. difficile suspected 07/23/2024 07/24/202407/24 10:31 AM NUT PROCESSING SUPERVISOR Norovirus suspected 07/23/2024 07/24/2024 07/24/19 9:37 AM NUT PROCESSING SUPERVISOR VRE Comment:Contact Precautions (gown and gloves) - not eligible for IP review until 6 months after positive culture - Jerod QURESHI, CONY 10/01/24 07/24/2024 09/20/2024 03/19/2025 7:26 PM C DT COVID: Suspected 08/09/2024 08/09/2024 08/09/2024 9:40 AM NUT PROCESSING SUPERVISOR Influenza, adult Comment:08/26/2024 IP Review: pt afebrile but on antipyretics. Needs 24 hours off antipyretics and symptoms significantly improved/resolved in order for isolation to be discontinued. Mary Tiwari RN 08/15/2024 08/15/2024 08/29/2024 3:06 AM NUT PROCESSING SUPERVISOR Coronavirus, droplet 08/15/2024 08/15/2024 025 3:06 AM NUT PROCESSING SUPERVISOR C. difficile suspected 09/19/2024 09/19/202409/20 3:05 [...] documented as of this encounter Care Teams Integration Lead Relationship Specialty Start Date End Date Kenton Ricks MD PCP - General 08/14/16 Pebbles Nelson MD Referring Physician Cardiology 02/07/19 Aylin Russ MD [address] [facility] [address] [place] [address] Referring Physician Pulmonary Disease 02/07/19 Maricruz Ramirez NP [address] [facility] [address] [place] [address] Nurse Practitioner Cardiovascular Disease 09/25/21 Joanne Lopez, CONY Registered Nurse Pulmonary Disease 08/24/22 Leatha Cristina RMA Surgical Prehabilitation and Readiness (SPAR) Coordinator 09/01/22 01/02/23 Ben Chahal MD PhD [address] [facility] [address] [place] [address] Medical Oncologist/Real Estate Investor Medical Oncology 10/05/22 Chace Oliva MD [address] [facility] [address] [place] [address] Consulting Physician Infectious Diseases 12/22/2204/01 Giovanna Alexis MD [address] [facility] [address] [place] [address] Radiation Oncologist Radiation Oncology 03/09/23 Taisha Suarez, superintendent concrete mixing plant Prehabilitation and Readiness (SPAR) Coordinator General Surgery 03/20/23 04/10/23 Sandra Ma MD [address] [facility] DIV MEDICAL ONCOLOGY, [address], [address], [address] [place] [address] Consulting Physician Medical Oncology 04/25/23 05/09/23 Abby Higgins MD PhD [address] [facility] [address] DIV IM MEDICAL ONCOLOGY, [address]A, 7B, [address] [place] [address] Medical Oncologist/Real Estate Investor Medical Oncology 05/10/23 Adrian Martinez MD [address] [facility] [address] DIV SURG TRANSPLANT, [address] [place] [address] Surgical Oncologist Surgical Oncology 05/28/23 Vera Pérez PA [address] [place] [id number] [place] [address] Physician Supervisor Treating And Pumping Colon and Rectal Surgery 09/13/23 Jim Frausto MD [address] [facility] [phone] [place] [address] Surgeon Colon and Rectal Surgery 11/21/23 Анна Robert, RN [address] [facility] [address] [place] [address] SHOP Outpatient Personal Lines Appraiser 09/29/24 10/01/24 documented as of this encounter
--- OUTSIDE RECORDS SUMMARY | 2025-05-05 07:54 | XMS_ITS | Clinical Summary ---
Author Organization [facility] Address [address] [place] [address] Phone Care Team Providers Care Toys Inspector Name Role Phone Kenton Ricks MD [...] ACEI to ARB. He will contact his cardiovascular or nurse to follow up regarding this. Acute on [...] Immunizations Immunization Administration Dates Next Due Influenza Split 04/01/2017 Influenza, Unspecified 04/01/2021 Influenza, split virus, trivalent, PF 06/14/2016 Sars-cov-2, Unspecified 10/13/2020 Family History Medical History [...] Comments Blood Pressure 118/68 05/24/2022 9:24 AM SOCK KNITTING MACHINE OPERATOR Pulse - - Temperature 35.7 C (96.3 F) 05/24/2022 9:24 AM SOCK KNITTING MACHINE OPERATOR Respiratory Rate 18 05/24/2022 9:24 AM SOCK KNITTING MACHINE OPERATOR Oxygen Saturation - - Inhaled Oxygen Concentration - - Weight 126 kg (278 lb) 05/24/2022 9:24 AM SOCK KNITTING MACHINE OPERATOR Height 172.7 cm (5' 8) 05/24/2022 9:24 AM SOCK KNITTING MACHINE OPERATOR Body Mass Index 42.27 05/24/2022 9:24 AM SOCK KNITTING MACHINE OPERATOR Plan of Treatment Health Maintenance Due Date Last Done Comments Pneumococcal PPSV23/PCV13 65 + Years / Low and Medium Risk (1 of 2 - PCV) 2005 Influenza Vaccine (#1) 2025 , 04/01/2017, 06/14/2016 Insurance [employer] MEDICARE ADVANTAGE Care Teams Toys Inspector Relationship Specialty Start Date End Date Kenton Ricks MD [address] [place] [address] PCP - General Family Medicine 02/16/22
--- OUTSIDE RECORDS SUMMARY | 2025-05-05 07:54 | XMS_ITS | Patient Health Record ---
Author Organization 1 OF Kristopher jaimes DPM [facility] Address [address] [place] [id number] Reason For Referral No Information Plan Of Treatment No Information
--- OUTSIDE RECORDS SUMMARY | 2025-05-05 07:54 | XMS_ITS | Encounter Summary ---
Author Organization [facility] Address [address] [place] [address] Care Team Providers Care Project Director Name Role Phone Kenton Ricks MD Primary Care Provider + [phone] Pebbles Nelson MD Unavailable [phone] Aylin Russ MD Unavailable [phone] Maricruz Ramirez NP Unavailable [phone] Joanne Lopez RN Unavailable Padmini Leatha Carter Unavailable Unavailable Ben Chahal MD PhD Unavailable [phone] Chace Oliva MD Unavailable [phone] Giovanna Alexis MD Unavailable Taisha Suarez RN Unavailable Unavaila Sandra Aguirre MD Unavailable [phone] Abby Higgins MD PhD Unavailable + Adrian Martinez MD Unavailable [phone] Vera Pérez Unavailable Jim Frausto MD Unavailable [phone] Анна Robert RN Unavailable Encounter Details Date Type Department Care Team (Late st Contact Info) Description 08/12/2020 Telephone [facility] [address] [address] Hallie Whitaker, RT Social History Tobacco Use Types Packs/Day Years Used Date Smoking Tobacco: Former Smokeless Tobacco: Never Alcohol Use Standard Drinks/Week Comments Yes 0 (1 standard drink = 0.6 oz pur e alcohol) Occassional Sex and Gender Information Value Date Recorded Sex Assigned at Not on file Legal Sex Male 12:58 AM POACHER OPERATOR Gender Identity Male 11/11/2018 10:31 AM CDT Sexual Orientation Straight 06/09/2019 5: 34 PM POACHER OPERATOR documented as of this encounter Plan [...] COVID: Suspected 06/07/2023 06/07/2023 06/07/2023 12:46 PM POACHER OPERATOR COVID19 06/07/2023 06/07/2023 06/22/2023 3:06 AM POACHER OPERATOR COVID: Recovered Comment:Added based on recent COVID infection. 06/22/2023 06/22/2023 09/20/2023 3:05 AM C DT COVID: Suspected 07/24/2023 07/24/2023 07/24/2023 3:53 PM POACHER OPERATOR Diarrhea 07/30/2023 07/30/2023 08/13/2023 3:05 AM POACHER OPERATOR COVID: Suspected 08/30/2023 08/30/2023 08/30/2023 4:52 PM POACHER OPERATOR COVID: Suspected 10/12/2023 10/12/2023 10/12/2023 7:57 PM CDT Rhino/Enterovirus 10/12/2023 10/12/2023 10/26/2023 3:05 AM CDT COVID: Suspected 07/10/2024 07/10/2024 07/10/2024 4:53 PM POACHER OPERATOR COVID: Suspected Comment:07/16/2024 IP Review: no outstanding test, last RPP negative. Mary Tiwari, CONY 07/16/2024 07/16/2024 10:51 AM POACHER OPERATOR COVID19 Comment:07/16/2024 IP Review: added by RN, CLAUDIO negative. Mary Tiwari RN 07/16/2024 07/16/2024 07/16/2024 10:51 AM POACHER OPERATOR MRSA Comment:nasalMRSA Isolation [facility] 09/03/24 07/16/2024 08/15/2024 09/03/2024 6:[address] C. difficile suspected 07/19/2024 07/19/202407/19 2:34 PM POACHER OPERATOR COVID: Suspected 07/23/2024 07/23/2024 07/23/2024 11:28 PM POACHER OPERATOR C. difficile suspected 07/23/2024 07/24/202407/24 10:31 AM POACHER OPERATOR Norovirus suspected 07/23/2024 07/24/2024 07/24/19 9:37 AM POACHER OPERATOR VRE Comment:Contact Precautions (gown and gloves) - not eligible for IP review until 6 months after positive culture - Jerod QURESHI, CONY 10/01/24 07/24/2024 09/20/2024 03/19/2025 7:26 PM C DT COVID: Suspected 08/09/2024 08/09/2024 08/09/2024 9:40 AM POACHER OPERATOR Influenza, adult Comment:08/26/2024 IP Review: pt afebrile but on antipyretics. Needs 24 hours off antipyretics and symptoms significantly improved/resolved in order for isolation to be discontinued. Mary Tiwari RN 08/15/2024 08/15/2024 08/29/2024 3:06 AM POACHER OPERATOR Coronavirus, droplet 08/15/2024 08/15/2024 025 3:06 AM POACHER OPERATOR C. difficile suspected 09/19/2024 09/19/202409/20 3:05 [...] as of this encounter Care Teams Project Director Relationship Specialty Start Date End Date Kenton Ricks MD PCP - General 08/14/16 Pebbles Nelson MD Referring Physician Cardiology 02/07/19 Alyin Russ MD [address] [facility] [address] [place] [address] Referring Physician Pulmonary Disease 02/07/19 Maricruz Ramirez DESIGN ENGINEERING INTERN [address] [place] [address] Nurse Practitioner Cardiovascular Disease 09/25/21 Joanne Lopez, RN Registered Nurse Pulmonary Disease 08/24/22 Leatha Cristina RMA Surgical Prehabilitation and Readiness (SPAR) Coordinator 09/01/22 01/02/23 Ben Chahal MD PhD 10 [facility] [address] 2 [place] [address] Medical Oncologist/Bird Tender Medical Oncology 10/05/22 Chace Oliva MD [address] [place] [address] Consulting Physician Infectious Diseases 12/22/2204/01 Giovanna Alexis MD [address] [place] [address] Radiation Oncologist Radiation Oncology 03/09/23 Taisha Suarez, loom control chain builder Prehabilitation and Readiness (SPAR) Coordinator General Surgery 03/20/23 04/10/23 Sandra Ma MD [address] DIV IM MEDICAL ONCOLOGY, [facility] 7A, 7B, [address] [place] [address] Consulting Physician Medical Oncology 04/25/23 05/09/23 Abby Higgins MD PhD [address] DIV IM MEDICAL ONCOLOGY, [facility] 7A, 7B, [address] [place] [address] Medical Oncologist/Bird Tender Medical Oncology 05/10/23 Adrian Martinez MD [address] DIV SURG TRANSPLANT, [address] [place] [address] Surgical Oncologist Surgical Oncology 05/28/23 Vera Pérez PA [address] [place] [id number] [place] [address] Physician Robotype Operator Colon and Rectal Surgery 09/13/23 Jim Frausto MD [address] [facility] [id number] [place] [address] Surgeon Colon and Rectal Surgery 11/21/23 Анна Robert, RN [address] [facility] [address] [place] [address] SHOP Outpatient Supply Chain Director 09/29/24 10/01/24 documented as of this encounter
--- OUTSIDE RECORDS SUMMARY | 2025-05-05 07:54 | XMS_ITS | Encounter Summary ---
Author Organization [facility] Address [address] [place] [address] Care Team Providers Care Architectural Technician Name Role Phone Kenton Ricks MD Primary Care Provider + [phone] Pebbles Nelson MD Unavailable [phone] Aylin Russ MD Unavailable [phone] Maricruz Ramirez NP Unavailable [phone] Joanne Lopez RN Unavailable Padmini Leatha Carter Unavailable Unavailable Ben Chahal MD PhD Unavailable [phone] Chace Oliva MD Unavailable +[phone] Giovanna Alexis MD Unavailable Taisha Suarez RN Unavailable Unavaila Sandra Aguirre MD Unavailable [phone] Abby Higgins MD PhD Unavailable + Adrian Martinez MD Unavailable [phone] Vera Pérez Unavailable Jim Frausto MD Unavailable Анна Robert RN Unavailable [phone] Encounter Details Date Type Department Care Team (Late st Contact Info) Description 06/15/2020 Telephone [facility] Radiology [address] [place] [address] Adalberto Zavala MD [address] [place] [address] Social History Tobacco Use Types Packs/Day Years Used Date Smoking Tobacco: Former Smokeless Tobacco: Never Alcohol Use Standard Drinks/Week Comments Yes 0 (1 standard drink = 0.6 oz pur e alcohol) Occassional Sex and Gender Information Value Date Recorded Sex Assigned at Not on file Legal Sex Male 12:58 AM VACUUM TECHNICIAN Gender Identity Male 11/11/2018 10:31 AM CDT Sexual Orientation Straight 06/09/2019 5: 34 PM VACUUM TECHNICIAN documented as of this encounter Plan [...] 09/22/2022 3:20 PM CDT COVID: Suspected 09/21/2022 09/21/202209/21/2022 7:46 PM CDT COVID: Suspected 09/22/2022 09/22/2022 [...] COVID: Suspected 06/07/2023 06/07/2023 06/07/2023 12:46 PM VACUUM TECHNICIAN COVID19 06/07/2023 06/07/2023 06/22/2023 3:06 AM VACUUM TECHNICIAN COVID: Recovered Comment:Added based on recent COVID infection. 06/22/2023 06/22/2023 09/20/2023 3:05 AM C DT COVID: Suspected 07/24/2023 07/24/2023 07/24/2023 3:53 PM VACUUM TECHNICIAN Diarrhea 07/30/2023 07/30/2023 08/13/2023 3:05 AM VACUUM TECHNICIAN COVID: Suspected 08/30/2023 08/30/2023 08/30/2023 4:52 PM VACUUM TECHNICIAN COVID: Suspected 10/12/2023 10/12/2023 10/12/2023 7:57 PM CDT Rhino/Enterovirus 10/12/2023 10/12/2023 10/26/2023 3:05 AM CDT COVID: Suspected 07/10/2024 07/10/2024 07/10/2024 4:53 PM VACUUM TECHNICIAN COVID: Suspected Comment:07/16/2024 IP Review: no outstanding test, last RPP negative. Marycarlos iTwari RN 07/16/2024 07/16/2024 10:51 AM VACUUM TECHNICIAN COVID19 Comment:07/16/2024 IP Review: added by CLAUDIO DONNELLY negative. Mary Tiwari RN 07/16/2024 07/16/2024 07/16/2024 10:51 AM VACUUM TECHNICIAN MRSA Comment:nasalMRSA Isolation Assisted 09/03/24 07/16/2024 08/15/2024 09/03/2024 6:[address] C. difficile suspected 07/19/2024 07/19/202407/19 2:34 PM VACUUM TECHNICIAN COVID: Suspected 07/23/2024 07/23/2024 07/23/2024 11:28 PM VACUUM TECHNICIAN C. difficile suspected 07/23/2024 07/24/202407/24 10:31 AM VACUUM TECHNICIAN Norovirus suspected 07/23/2024 07/24/2024 07/24/19 9:37 AM VACUUM TECHNICIAN VRE Comment:Contact Precautions (gown and gloves) - not eligible for IP review until 6 months after positive culture - Jerod QURESHI, CONY 10/01/24 07/24/2024 09/20/2024 03/19/2025 7:26 PM C DT COVID: Suspected 08/09/2024 08/09/2024 08/09/2024 9:40 AM VACUUM TECHNICIAN Influenza, adult Comment:08/26/2024 IP Review: pt afebrile but on antipyretics. Needs 24 hours off antipyretics and symptoms significantly improved/resolved in order for isolation to be discontinued. Mary Tiwari RN 08/15/2024 08/15/2024 08/29/2024 3:06 AM VACUUM TECHNICIAN Coronavirus, droplet 08/15/2024 08/15/2024 025 3:06 AM VACUUM TECHNICIAN C. difficile suspected 09/19/2024 09/19/202409/20 3:05 [...] documented as of this encounter Care Teams Architectural Technician Relationship Specialty Start Date End Date Kenton Ricks MD PCP - General 08/14/16 Pebbles Nelson MD Referring Physician Cardiology 02/07/19 Aylin Russ MD [id number] [place] [address] Referring Physician Pulmonary Disease 02/07/19 Maricruz Ramirez, TACTICAL AIR CONTROL PARTY MANAGER [address] [place] [address] Nurse Practitioner Cardiovascular Disease 09/25/21 Joanne Lopez, CONY Registered Nurse Pulmonary Disease 08/24/22 Leatha Cristina RMA Surgical Prehabilitation and Readiness (SPAR) Coordinator 09/01/22 01/02/23 Ben Chahal MD PhD [address] [facility] [address] 2 [place] [address] Medical Oncologist/Sliver Cutter Medical Oncology 10/05/22 Chace Oliva MD [address] [facility] [address] [place] [address] Consulting Physician Infectious Diseases 12/22/2204/01 Giovanna Alexis MD [address] [facility] [address] [place] [address] Radiation Oncologist Radiation Oncology 03/09/23 Taisha Suarez, snuff drier Prehabilitation and Readiness (SPAR) Coordinator General Surgery 03/20/23 04/10/23 Sandra Ma MD [address] [facility] DIV IM MEDICAL ONCOLOGY, [address], [address], [address] [place] [address] Consulting Physician Medical Oncology 04/25/23 05/09/23 Abby Higgins MD PhD [address] [facility] DIV IM MEDICAL ONCOLOGY, [address], [address]B, [address] [place] [address] Medical Oncologist/Sliver Cutter Medical Oncology 05/10/23 Adrian Martinez MD [address] [facility] DIV SURG TRANSPLANT, [address] [place] [address] Surgical Oncologist Surgical Oncology 05/28/23 Vera Pérez PA [address] [place] [id number] [place] [address] Physician Sales And Marketing Administrator Colon and Rectal Surgery 09/13/23 Jim Frausto MD [address] [facility] [phone] [place] [address] Surgeon Colon and Rectal Surgery 11/21/23 Анна Robert, RN [address] [facility] [address] [place] [address] SHOP Outpatient Cookie Breaker 09/29/24 10/01/24 documented as of this encounter
--- OUTSIDE RECORDS SUMMARY | 2025-05-05 07:54 | XMS_ITS | Encounter Summary ---
Author Organization [facility] Address [address] [place] [address] Phone Care Team Providers Care Seat Nailer Name Role Phone Kenton Ricks MD Primary Care Provider + [phone] Pebbles Nelson MD Unavailable [phone] Aylin Russ MD Unavailable [phone] Maricruz Ramirez NP Unavailable [phone] Joanne Lopez RN Unavailable Padmini Leatha Carter Unavailable Unavailable Ben Chahal MD PhD Unavailable [phone] Chace Oliva MD Unavailable [phone] Giovanna Alexis MD Unavailable Taisha Suarez RN Unavailable Unavaila Sandra Aguirre MD Unavailable [phone] Abby Higgins MD PhD Unavailable + Adrian Martinez MD Unavailable Vera Pérez Unavailable Jim Frausto MD Unavailable Анна Robert RN Unavailable Encounter Details Date Type Department Care Team (Late st Contact Info) Description 08/10/2020 Telephone [facility] Cardiology [address] [facility] Medicine 8th [place] [address] [place] [address] Pebbles Nelson MD [address] [place] [address] Social History Tobacco Use Types Packs/Day Years Used Date Smoking Tobacco: Former Smokeless Tobacco: Never Alcohol Use Standard Drinks/Week Comments Yes 0 (1 standard drink = 0.6 oz pur e alcohol) Occassional Sex and Gender Information Value Date Recorded Sex Assigned at Not on file Legal Sex Male 12:58 AM ASSEMBLER CONVERTIBLE TOP Gender Identity Male 11/11/2018 10:31 AM CDT Sexual Orientation Straight 06/09/2019 5 :34 PM ASSEMBLER CONVERTIBLE TOP documented as of this encounter Plan of [...] COVID: Suspected 06/07/2023 06/07/2023 06/07/2023 12:46 PM ASSEMBLER CONVERTIBLE TOP COVID19 06/07/2023 06/07/2023 06/22/2023 3:06 AM ASSEMBLER CONVERTIBLE TOP COVID: Recovered Comment:Added based on recent COVID infection. 06/22/2023 06/22/2023 09/20/2023 3:05 AM C DT COVID: Suspected 07/24/2023 07/24/2023 07/24/2023 3:53 PM ASSEMBLER CONVERTIBLE TOP Diarrhea 07/30/2023 07/30/2023 08/13/2023 3:05 AM ASSEMBLER CONVERTIBLE TOP COVID: Suspected 08/30/2023 08/30/2023 08/30/2023 4:52 PM ASSEMBLER CONVERTIBLE TOP COVID: Suspected 10/12/2023 10/12/2023 10/12/2023 7:57 PM CDT Rhino/Enterovirus 10/12/2023 10/12/2023 10/26/2023 3:05 AM CDT COVID: Suspected 07/10/2024 07/10/2024 07/10/2024 4:53 PM ASSEMBLER CONVERTIBLE TOP COVID: Suspected Comment:07/16/2024 IP Review: no outstanding test, last RPP negative. Mary Tiwari RN 07/16/2024 07/16/2024 10:51 AM ASSEMBLER CONVERTIBLE TOP COVID19 Comment:07/16/2024 IP Review: added by RN, RPP negative. Mary Tiwari RN 07/16/2024 07/16/2024 07/16/2024 10:51 AM ASSEMBLER CONVERTIBLE TOP MRSA Comment:nasalMRSA Isolation Halfway 09/03/24 07/16/2024 08/15/2024 09/03/2024 6:[address] C. difficile suspected 07/19/2024 07/19/202407/19 2:34 PM ASSEMBLER CONVERTIBLE TOP COVID: Suspected 07/23/2024 07/23/2024 07/23/2024 11:28 PM ASSEMBLER CONVERTIBLE TOP C. difficile suspected 07/23/2024 07/24/202407/24 10:31 AM ASSEMBLER CONVERTIBLE TOP Norovirus suspected 07/23/2024 07/24/2024 07/24/19 9:37 AM ASSEMBLER CONVERTIBLE TOP VRE Comment:Contact Precautions (gown and gloves) - not eligible for IP review until 6 months after positive culture - Jerod QURESHI, RN 10/01/24 07/24/2024 09/20/2024 03/19/2025 7:26 PM C DT COVID: Suspected 08/09/2024 08/09/2024 08/09/2024 9:40 AM ASSEMBLER CONVERTIBLE TOP Influenza, adult Comment:08/26/2024 IP Review: pt afebrile but on antipyretics. Needs 24 hours off antipyretics and symptoms significantly improved/resolved in order for isolation to be discontinued. Mary Tiwari RN 08/15/2024 08/15/2024 08/29/2024 3:06 AM ASSEMBLER CONVERTIBLE TOP Coronavirus, droplet 08/15/2024 08/15/2024 025 3:06 AM ASSEMBLER CONVERTIBLE TOP C. difficile suspected 09/19/2024 09/19/202409/20 3:05 AM [...] documented as of this encounter Care Teams Seat Nailer Relationship Specialty Start Date End Date Kenton Ricks MD PCP - General 08/14/16 Pebbles Nelson MD Referring Physician Cardiology 02/07/19 Aylin Russ MD [address] [place], [place] [address] [address] [place] [address] Referring Physician Pulmonary Disease 02/07/19 Maricruz Ramirez CELL STRIPPER [address] [facility] [address] [place] [address] Nurse Practitioner Cardiovascular Disease 09/25/21 Joanne Lopez, [place] Registered Nurse Pulmonary Disease 08/24/22 Leatha Cristina RMA Surgical Prehabilitation and Readiness (SPAR) Coordinator 09/01/22 01/02/23 Ben Chahal MD PhD [address] [facility] [address] [place] [address] Medical Oncologist/Sail Lay Out Worker Medical Oncology 10/05/22 Chace Oliva MD [address] [place] [address] Consulting Physician Infectious Diseases 12/22/2204/01 Giovanna Alexis MD [address] [facility] [address] [place] [address] Radiation Oncologist Radiation Oncology 03/09/23 Taisha Suarez, hot packer Prehabilitation and Readiness (SPAR) Coordinator General Surgery 03/20/23 04/10/23 Sandra Ma MD [address] DIV IM MEDICAL ONCOLOGY, [facility] [address], [address], [address] [place] [address] Consulting Physician Medical Oncology 04/25/23 05/09/23 Abby Higgins MD PhD [address] DIV IM MEDICAL ONCOLOGY, [facility] [address], [address], [address] [place] [address] Medical Oncologist/Sail Lay Out Worker Medical Oncology 05/10/23 Adrian Martinez MD [address] [facility] SURG TRANSPLANT, [facility] [address] [place] [address] Surgical Oncologist Surgical Oncology 05/28/23 Vera Pérez PA [address] [place] [phone] [place] [address] Physician Solar System Designer Colon and Rectal Surgery 09/13/23 Jim Frausto MD [address] [facility] [phone] [place] [address] Surgeon Colon and Rectal Surgery 11/21/23 Анна Robert, RN [address] [facility] [address] [place] [address] SHOP Outpatient Edge Inker 09/29/24 10/01/24 documented as of this encounter
--- OUTSIDE RECORDS SUMMARY | 2025-05-05 07:54 | XMS_ITS | Patient Health Record ---
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 [address] [place] [address] [id number] Rah Greco Self - patient is the insured
--- OUTSIDE RECORDS SUMMARY | 2025-05-05 07:55 | XMS_ITS | Clinical Summary ---
Author Organization [facility] Address [address] [place] [address] Care Team Providers Care Box Puller Name Role Phone Kenton Ricks MD Primary Care Provider + [phone] Pebbles Nelson MD Unavailable [phone] Aylin Russ MD Unavailable [phone] Maricruz Ramirez NP Unavailable [phone] Joanne Lopez RN Unavailable Padmini Ben Walker MD PhD Unavailable [phone] Giovanna Alexis MD Unavailable Abby Higgins MD PhD Unavailable + Adrian Martinez MD Unavailable [phone] Vera Pérez Unavailable [phone] Jim Frausto MD Unavailable [phone] Allergies Active Allergy Reactions Criticality Noted Date [...] mg total) by mouth nightly Active multivit sbpfwxrf-suef-FO- calcium (THERA-M) 9 mg iron-400 mcg tablet Take 1 tablet by mouth nightly Active Gemtesa 75 mg tablet Take 75 mg by mouth nightly 024 Active FreeStyle Stephen 3 Plus Sensor deviceIndications :Type 2 diabetes mellitus with microalbuminuria, with long-term current use of insulin (HCC) Use to continually monitor glucose, change sensor every 15 days 6 each 3 Active blood glucose diagnostic (True Metrix Glucose Test Strip) stripIndications: Type 2 diabetes mellitus with other specified complication, without long-term current use of insulin USE HUMANA TRUE METRIX TO CHECK GLUCOSE 3-4 TIMES A DAY 300 strip [address] (PROTONIX) 40 mg EC tablet Take 1 tablet (40 mg total) by mouth 2 (two) times a day 60 tablet 025 Active lidocaine (LIDODERM) 5 %Indications:Compensator natanael diarrhea Place 1 patch on the skin [...] Notify physician for adjustment of insulin orders. 025 Active lidocaine (GLYDO) 2 % jelly in [...] INJECTION 4 TIMES A DAY 400 each 025 Active rosuvastatin (CRESTOR) 5 mg tabletIndications :Mixed hyperlipidemia TAKE 1 TABLET BY MOUTH EVERY DAY IN THE MORNING 90 tablet 1 Active pen needle, diabetic (BD Ultra-Fine Mini Pen Needle) 31 gauge x 3/16 needleIndications :Type 2 diabetes mellitus with other specified complication, without long-term current use of insulin TAKE WITH INSULIN INJECTION 4 TIMES A DAY 400 each 2 024 2024 Discontinued(R jolynn) rosuvastatin (CRESTOR) 5 mg tabletIndications :Mixed hyperlipidemia Take 1 tablet (5 mg total) by mouth every morning 90 tablet 1 025 2024 Discontinued insulin aspart (NovoLOG) 100 unit/mL (3 mL) pen for injection Inject 12 Units under the skin 3 (three) times a day with meals 2024 Discontinued(P atient Reported) Active Problems Problem Noted Date Diagnosed Date TP53 gene mutation positive 04/22/2025 Family history of adrenal cancer 03/26/2025 Family [...] of cholecystectomy. He had similar LFT elevation 1-08/2024 which was evaluated by hepatology with liver biopsy 08/08 showing minimal to mild inflammation -Trend LFTs Assessment & Plan (04/02/2025 6:14 PM CDT): ALP remains elevated similar to recent level; ALT also similarly mildly elevated (<2x ULN) with AST/TB wnl. RUQUS last admission with AST/ALT 200s showed findings suggestive of early cirrhosis, pneumobilia and postoperative changes of cholecystectomy. He had similar LFT elevation -08/2024 which was evaluated by hepatology with liver biopsy 2 showing minimal to mild inflammation -Trend LFTs Assessment & Plan (04/01/2025 8:51 AM CDT): ALP remains elevated similar to recent level; ALT also similarly mildly elevated (<2x ULN) with AST/TB wnl. RUQUS last admission with AST/ALT 200s showed findings suggestive of early cirrhosis, pneumobilia and postoperative changes of cholecystectomy. He had similar LFT elevation -08/2024 which was evaluated by hepatology with liver biopsy 08/08 showing minimal to mild inflammation -Trend LFTs Assessment & Plan (03/31/2025 10:23 PM CDT): ALP remains elevated similar to recent level; ALT also similarly mildly elevated (<2x ULN) with AST/TB wnl. RUQUS last admission with AST/ALT 200s showed findings suggestive of early cirrhosis, pneumobilia and postoperative changes of cholecystectomy. He had similar LFT elevation -08/2024 which was evaluated by hepatology with liver biopsy 08/08 showing minimal to mild inflammation -Trend LFTs [...] 08/23/2024 Assessment & Plan (08/26/2024 3:51 PM WASTE DISPOSAL PLANT OPERATOR): The patient reported left eye pain [...] 08/11/2024 Assessment & Plan (08/26/2024 4:05 PM WASTE DISPOSAL PLANT OPERATOR): Patient developed hematemesis on 08/11 with [...] 08/04/2024 Assessment & Plan (08/22/2024 10:54 PM WASTE DISPOSAL PLANT OPERATOR): Started allopurinol this admission Moderate protein-calorie [...] PPI Assessment & Plan (08/11/2024 8:44 PM WASTE DISPOSAL PLANT OPERATOR): - Recent admission 07/10-07/20 for abd [...] 07/16/2024 Assessment & Plan (07/20/2024 11:28 AM WASTE DISPOSAL PLANT OPERATOR): - Resulted with Nystatin Anal fissure 11/21/2023 Assessment & Plan (01/15/2025 11:15 AM CDT): -Continue prn lidocaine AZ and nifedipine ointment Assessment & Plan (01/14/2025 11:42 AM CDT): -Continue prn lidocaine AZ and nifedipine ointment Assessment & Plan (01/13/2025 12:04 PM CDT): -Continue prn lidocaine AZ and nifedipine ointment Assessment & Plan (01/13/2025 1:06 AM CDT): -Continue prn lidocaine AZ and nifedipine ointment Assessment & Plan (12/10/2024 [...] topical CCB - cannot obtain her at [facility] Assessment & Plan (11/22/2024 12:07 PM CDT): - psyllium qAM, added miralax daily - Added lidocaine jelly qid prn - Sitz baths BID - Will try to start topical CCB - cannot obtain her at [facility] Assessment & Plan (11/21/2024 11:50 AM CDT): - psyllium qAM, added miralax daily - Added lidocaine jelly qid prn - Sitz baths BID - Will try to start topical CCB - cannot obtain her at [facility] Assessment & Plan (11/20/2024 11:11 [...] (11/24/2024 9:17 AM CDT): -CPAP at [facility] Assessment & Plan (11/23/2024 9:48 AM CDT): -CPAP at [facility] Assessment & Plan (11/22/2024 12:07 PM CDT): -CPAP at [facility] Assessment & Plan (11/21/2024 11:50 AM CDT): -CPAP at [facility] Assessment & Plan (11/20/2024 11:11 AM CDT): -CPAP at [facility] Assessment & Plan (11/20/2024 1:34 AM CDT): -CPAP at [facility] Assessment & Plan (10/15/2023 2:34 PM [...] albuterol Assessment & Plan (08/26/2024 4:00 PM WASTE DISPOSAL PLANT OPERATOR): Cont. breo ellipta, prn albuterol Iron [...] 07/25/2023 Assessment & Plan (07/26/2023 12:35 PM WASTE DISPOSAL PLANT OPERATOR): - Likely multifactorial 2/2 malignancy, recent whipple, chemotherapy, and pain - Very poor PO intake - RD c/s - Started Mirtazapine - Dietary supplementation - Increased Creon as above Malaise 07/24/2023 Assessment & Plan (07/25/2023 2:16 PM WASTE DISPOSAL PLANT OPERATOR): - RVP negative - Improving Kidney lesion 07/21/2023 Assessment & Plan (07/25/2023 2:21 PM WASTE DISPOSAL PLANT OPERATOR): - Left renal cyst noted since [...] prn Assessment & Plan (07/26/2023 12:33 PM WASTE DISPOSAL PLANT OPERATOR): - Acute on chronic epigastric pain [...] 07/09/2023 Assessment & Plan (07/24/2023 5:22 PM WASTE DISPOSAL PLANT OPERATOR): - Replace per protocol Class 1 obesity due to exces s calories with serious comorbidity and body mass index (BMI) of 34.0 to 34.9 in adult 06/01/2023 H/O Whipple procedure 05/30/2023 Gastrointestinal hemorrhage 05/30/2023 Assessment & Plan (07/14/2024 12:30 PM WASTE DISPOSAL PLANT OPERATOR): History of Postoperative GI bleed. EGD [...] 02/05/2023 Assessment & Plan (07/21/2023 2:06 AM WASTE DISPOSAL PLANT OPERATOR): Also has Hx of prostate cancer s/p prostatectomy. Takes gemtesa at home which is not on formulary - continue home oxybutynin and flomax Assessment & Plan (02/09/2023 3:46 PM CDT): Patient presented w/ low urine output and asymptomatic urinary retention, required straight cath in [facility], currently voiding and emptying appropriately - [...] 11/21/2022 Assessment & Plan (08/26/2024 4:05 PM WASTE DISPOSAL PLANT OPERATOR): The patient presented with elevated alkaline [...] he is scheduled MRI in December at [facility] (requires cardiac monitoring due to ICD) - he is hoping to have this done sooner. Ileus 11/21/2022 Assessment & Plan (07/20/2024 11:29 AM WASTE DISPOSAL PLANT OPERATOR): - KUB done 07/13 showing ileus [...] 10/08/2022 Assessment & Plan (07/21/2023 2:04 AM WASTE DISPOSAL PLANT OPERATOR): Diagnosed in August 2022, now s/p course of Eliquis. Presented with trace b/l lower ext edema, b/l erythema and mild tenderness which per patient is increased from baseline. Had similar presentation last hospitalization and LE duplex 06/07 was negative - CTM and consider rescanning if persistent Assessment & Plan (06/09/2023 4:47 PM WASTE DISPOSAL PLANT OPERATOR): Hx of DVT in August 2022, [...] of mets or infection and transferred from [facility] to [facility]. ID here with low concern for PATENT ENGINEER infection. - CT neck/soft tissue with contrast: [...] due to ICD. Plan to transfer to [facility] for further evaluation w/ possible MRI brain and LP. Rash 09/23/2022 Assessment & Plan (06/12/2023 3:50 PM WASTE DISPOSAL PLANT OPERATOR): - contact dermatitis? Not concerned about [...] to melisa skin necrosis. - transfer to [facility] for derm eval Anemia 09/22/2022 Assessment & Plan (07/26/2023 12:35 PM WASTE DISPOSAL PLANT OPERATOR): Acute on chronic. 7.4 on admission. [...] negative. Assessment & Plan (06/12/2023 3:46 PM WASTE DISPOSAL PLANT OPERATOR): HGb 7, plt 94, wbc 1.4, [...] 09/22/2022 Assessment & Plan (07/26/2023 12:34 PM WASTE DISPOSAL PLANT OPERATOR): Has Hx of ileus. On scheduled Linzess, Miralax and PRN Senna-Docusate at home. Patient states he's been having 4-5 soft stools daily - Increased Creon as above. Bowel regimen. Assessment & Plan (06/07/2023 11:26 PM WASTE DISPOSAL PLANT OPERATOR): Continue home regimen of Linzess, Miralax [...] (08/30/2022): Added automatically from request for surgery [id number] Assessment & Plan (10/15/2023 2:34 PM CDT): Hx of L axillary nodes on CT increased from prior study Should f/u with Dr. Chahal Assessment & Plan (10/13/2023 2:03 PM CDT): Hx of L axillary nodes on CT increased from prior study Should f/u with Dr. Chahal Assessment & Plan (07/26/2023 12:31 PM WASTE DISPOSAL PLANT OPERATOR): - s/p whipple. Follows with Dr. [...] plan to hold of next cycle of [place]/Abraxane till infectious etiology is ruled out Assessment [...] plan to hold of next cycle of [place]/Abraxane till infectious etiology is ruled out Assessment [...] surveillance Assessment & Plan (08/26/2024 4:00 PM WASTE DISPOSAL PLANT OPERATOR): s/p whipple with PV/SMV resection (04/2023) and neoadjuvant chemo (completed 08/2023). Most recent scan showed no evidence of disease recurrence Currently on surveillance with CA 19-[address] CAP every 3 months Assessment & Plan (07/10/2024 10:48 PM WASTE DISPOSAL PLANT OPERATOR): Pancreatic cancer s/p Whipple with PV/SMV resection on 04/11/2023 s/p neoadjuvant tx, On surveillance OP follow up. Assessment & Plan (06/08/2023 5:32 PM WASTE DISPOSAL PLANT OPERATOR): Pancreatic adenocarcinoma sp Whipple, now on [...] 1 Assessment & Plan (08/25/2022 12:23 PM WASTE DISPOSAL PLANT OPERATOR): Recurrent UTI followed by ID with [...] 06/09/2019 Assessment & Plan (06/09/2019 12:54 PM WASTE DISPOSAL PLANT OPERATOR): He is agreeable to rescheduling the [...] aldactone Assessment & Plan (07/14/2024 12:35 PM WASTE DISPOSAL PLANT OPERATOR): HFpEF Euvolemic, normotensive On hold diuretics for now given pt NPO on IVF for ileus, will restart once able to take in po Assessment & Plan (06/11/2023 10:01 PM WASTE DISPOSAL PLANT OPERATOR): ECHO 11/21 EF 69%, grade I [...] diet Assessment & Plan (08/24/2022 1:10 PM WASTE DISPOSAL PLANT OPERATOR): Stable, continued torsemide, spironolactone Assessment & Plan (09/24/2021 12:42 AM CDT): Patient is feeling better. states legs have decreased by half. Continue with IV lasix. Continue to monitor Cr and lytes as we diurese. Holding torsemide. Continue aldactone with hold parameters. Assessment & Plan (08/18/2018 1:16 AM WASTE DISPOSAL PLANT OPERATOR): Patient presented with increased shortness of [...] NPPV Assessment & Plan (08/26/2024 4:02 PM WASTE DISPOSAL PLANT OPERATOR): continue nightly CPAP Assessment & Plan (07/21/2023 6:17 AM WASTE DISPOSAL PLANT OPERATOR): Desaturations noted in the ED during sleep per on monitor while on RA (not recorded) - continue nightly BiPAP Assessment & Plan (06/07/2023 11:32 PM WASTE DISPOSAL PLANT OPERATOR): Continue nightly BiPAP Assessment & Plan [...] AM CDT): -resume home CPAP at [facility] Assessment & Plan (09/22/2022 3:17 AM CDT): -resume home CPAP at [facility] Assessment & Plan (08/24/2022 1:08 PM WASTE DISPOSAL PLANT OPERATOR): - home CPAP machine use Assessment & Plan (09/24/2021 12:39 AM CDT): Patient has home NPPV which has been reordered. 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 Restart CPAP Shortness of breath at rest 08/18/2018 Assessment & Plan (08/18/2018 1:27 AM WASTE DISPOSAL PLANT OPERATOR): Patient with complex past medical history [...] 07/26/2018 Assessment & Plan (08/26/2024 4:05 PM WASTE DISPOSAL PLANT OPERATOR): H/o vtach s/p ICD 2013 EP consulted for MRCP earlier in admission. Patient's device is conditioned for MRI. Risk stratification: standard Assessment & Plan (07/10/2024 10:38 PM WASTE DISPOSAL PLANT OPERATOR): History of ventricular tachycardia ICD in place Assessment & Plan (07/21/2023 2:11 PM WASTE DISPOSAL PLANT OPERATOR): Follows with Dr. Nelson in EP [...] Aug Assessment & Plan (06/11/2023 9:59 PM WASTE DISPOSAL PLANT OPERATOR): Follows with Dr. Nelson in EP for history of VT s/p ICD. Denies any recent shocks, as per not there was unscheduled alarm this month due to RV lead impedance. Has outpatient appointment in August Outpatient follow up with EP Assessment & Plan (03/18/2023 1:23 AM CDT): Monitor. MRI conditional. If needs MRI, will need to go to [facility]. Assessment & Plan (02/05/2023 6:58 PM [...] ordered Assessment & Plan (08/18/2018 1:17 AM WASTE DISPOSAL PLANT OPERATOR): Last device interrogation was in July [...] s/p shoulder surgery. Follows with Dr. Russ (Pul) as OP. On Symbicort at home. 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 Russ - c/w Breo-Ellipta Assessment & Plan (08/18/2018 1:17 AM WASTE DISPOSAL PLANT OPERATOR): Continue with gabapentin Chronic heart failure [...] PO Assessment & Plan (08/26/2024 4:06 PM WASTE DISPOSAL PLANT OPERATOR): Volume down on admission due to diarrhea, now appear slightly volume up, likely I/s/o transfusions and held diuretics Continue to hold home torsemide and spironolactone for now, consider gently resuming prior to discharge Assessment & Plan (07/26/2023 12:34 PM WASTE DISPOSAL PLANT OPERATOR): BLE edema with erythema noted on [...] elevated at home, he can contact his PCP/tufting machine operator single needle for further insulin adjustments. Assessment & Plan [...] regimen Assessment & Plan (08/26/2024 4:05 PM WASTE DISPOSAL PLANT OPERATOR): Last A1c 8.4. Home regimen: tresiba 45 units, novolog 12 units w/ breakfast and dinner, 8 units with lunch and sliding scale 1:50 > 150 Continue lantus 5 units qam + SSI Assessment & Plan (07/17/2024 2:29 PM WASTE DISPOSAL PLANT OPERATOR): - On tresiba 24U Qam and [...] hdssi Assessment & Plan (07/26/2023 12:33 PM WASTE DISPOSAL PLANT OPERATOR): Insulin dependant. Home regimen: Tresiba 42 units qam, Meal-time insulin 15u tid, SSI. Has had poor oral intake over last 2-3 weeks. He mentions his Stephen 2 sensor has been recording low sugars in 40s-50s overnight for 1 week - SSI inpatient - QID accuchecks Assessment & Plan (06/08/2023 5:39 PM WASTE DISPOSAL PLANT OPERATOR): Hgb1c 8.4% in 04/23, follows with [...] -SSI Assessment & Plan (08/24/2022 1:07 PM WASTE DISPOSAL PLANT OPERATOR): -Home regimen metformin + Tresiba 35 units qAM and novolog 11 units with meals plus SSI -Continue basal bolus regimen, dose reduced while inpatient -Accuchecks Assessment & Plan (09/24/2021 12:38 AM CDT): Patient on PO hypoglycemics. Monitor on SSI. Assessment & Plan (06/09/2019 12:53 PM WASTE DISPOSAL PLANT OPERATOR): Diet controlled. A1C at goal. On [...] 09/06/2015 Assessment & Plan (06/09/2019 12:49 PM WASTE DISPOSAL PLANT OPERATOR): Nodule has not grown on interim imaging. Needs low dose dexamethasone suppression test annually x 5 years since initial evaluation given propensity of some adrenal nodules to become cortisol secreting overtime. Thyroid nodule 09/06/2015 Assessment & Plan (06/09/2019 12:48 PM WASTE DISPOSAL PLANT OPERATOR): S/p FNA with benign cytology. Will repeat US in the spring to monitor biopsied thyroid nodule for growth. Multinodular goiter 05/10/2015 Hernia of abdominal wall 02/18/2015 Assessment & Plan (06/09/2019 12:54 PM WASTE DISPOSAL PLANT OPERATOR): He will follow up with Dr. 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 Higgins in medical [...] 02/23/2012 Assessment & Plan (08/26/2024 4:06 PM WASTE DISPOSAL PLANT OPERATOR): continue home rosuvastatin consider resuming ASA Assessment & Plan (07/10/2024 10:44 PM WASTE DISPOSAL PLANT OPERATOR): Cath in 10/2023 nonobstructive coronary artery [...] asthma Assessment & Plan (07/21/2023 2:06 AM WASTE DISPOSAL PLANT OPERATOR): Follows with Dr. Nelson - Continue home Breo and PRN albuterol inhaler Assessment & Plan (06/07/2023 11:31 PM WASTE DISPOSAL PLANT OPERATOR): Follows with Dr. Nelson in pulmonary -Continue home Breo and PRN albuterol inhaler Assessment & Plan (09/25/2022 1:41 AM CDT): -Continue home inhalers. Assessment & Plan (09/22/2022 11:00 AM CDT): Continue home inhalers. Assessment & Plan (08/21/2022 4:13 AM WASTE DISPOSAL PLANT OPERATOR): -Symbicort replaced with formulary Breo Ellipta while inpatient -Continue prn albuterol Assessment & Plan (09/24/2021 12:42 AM CDT): Continue breathing treatment. Resolved Problems Problem Noted Date Diagnosed Date Resolved Date Abdominal pain, generalized 01/12/2025 01/13/2025 Ventilator associated pneumonia 08/22/2024 08/22/2024 Acute hypoxemic respiratory failure 08/22/2024 08/23/2024 Assessment & Plan (08/22/2024 8:41 PM WASTE DISPOSAL PLANT OPERATOR): Fevers + O2 requirement Feb 13th, subsequently found to be positive for Influenza A and Coronavirus ([id number]). 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 S/p tamiflu, Linezolid (08/15-08/18), Cefepime (08/15- 08/17), Ciprofloxacin (08/08). Currently on RA. - supportive care Dysuria 07/25/2024 08/24/2024 Assessment & Plan (08/22/2024 10:12 PM WASTE DISPOSAL PLANT OPERATOR): Now resolved. UA on admission with [...] 07/25/2024 Assessment & Plan (07/29/2024 3:21 PM WASTE DISPOSAL PLANT OPERATOR): Pt reports new burning pain around [...] 07/24/2024 Assessment & Plan (08/02/2024 11:26 AM WASTE DISPOSAL PLANT OPERATOR): Resolved - Baseline Cr 0.5. Cr on admission was 1.01 - Likely pre-renal due to diarrhea - improved with IVF Dehydration 07/24/2024 08/26/2024 Assessment & Plan (07/26/2024 12:35 PM WASTE DISPOSAL PLANT OPERATOR): - due to diarrhea - s/p 1L IVF bolus in CCC and maintenance IVF Diarrhea 07/19/2024 08/24/2024 Assessment & Plan (08/09/2024 2:16 PM WASTE DISPOSAL PLANT OPERATOR): - P/w 1-day history of 7-8 [...] resolved Assessment & Plan (07/20/2024 11:33 AM WASTE DISPOSAL PLANT OPERATOR): - Developed after resolution of ileus. - C diff negative - Increased Creon back to home dose - Imodium prn - Hold Linzess until diarrhea resolved Abdominal pain 11/09/2023 08/25/2024 Assessment & Plan (08/11/2024 8:39 PM WASTE DISPOSAL PLANT OPERATOR): Acute on chronic abdominal pain. Likely [...] hematemesis Assessment & Plan (07/14/2024 12:31 PM WASTE DISPOSAL PLANT OPERATOR): Hx of pancreatic cancer s/p whipple presented initially to the [facility] with abd pain , nausea and [...] NSAIDs Assessment & Plan (07/10/2024 9:32 PM WASTE DISPOSAL PLANT OPERATOR): Hx of pancreatic cancer s/p whipple presented initially to the [facility] with abd pain , nausea and [...] 08/24/2024 Assessment & Plan (08/11/2024 8:40 PM WASTE DISPOSAL PLANT OPERATOR): Complained chest pain at left chest [...] 08/01/2024 Assessment & Plan (08/01/2024 2:54 PM WASTE DISPOSAL PLANT OPERATOR): -has ICD in place Assessment & [...] 03/31/2025 Assessment & Plan (06/12/2023 3:47 PM WASTE DISPOSAL PLANT OPERATOR): Presented with 3 days of fever, [...] 08/22/2024 Assessment & Plan (08/05/2024 11:42 PM WASTE DISPOSAL PLANT OPERATOR): RESOLVED. DDx include viral infection vs [...] prn. Assessment & Plan (07/20/2024 11:30 AM WASTE DISPOSAL PLANT OPERATOR): - Developed fever 38.4 C on [...] which raise concern for an infectious syndrome -STOCKROOM CLERK swab RPP negative -check blood cultures; hold [...] 10/28/2022 Assessment & Plan (08/24/2022 1:12 PM WASTE DISPOSAL PLANT OPERATOR): Referred pancreatitis pain. 12 lead EKG shows no acute changes, baseline NSR with RBB and intrafascicular block. Trop negative. Elevated transaminase level 08/21/2022 10/28/2022 Assessment & Plan (08/24/2022 1:10 PM WASTE DISPOSAL PLANT OPERATOR): First noted to have elevated alk [...] 023 Assessment & Plan (08/22/2022 2:20 PM WASTE DISPOSAL PLANT OPERATOR): Diagnosed as outpatient and started on fidaxomicin by ID 08/16/2022. Still with persistent diarrhea. -Continue fidaxomicin -ID following Pancreatic lesion 08/20/2022 10/28/2022 Overview (08/21/2022): Added automatically from request for surgery [id number] Assessment & Plan (08/24/2022 1:08 PM WASTE DISPOSAL PLANT OPERATOR): S/P EUS wit FNA confirmed adenocarcinoma. GI arranging oncology and surgical follow up as outpatient Urinary tract infection asso ciated with cystostomy catheter, initial encounter 04/09/2022 0 10/28/2022 Brugada syndrome 07/09/2020 09/10/2020 Cough in adult 06/09/2019 10/28/2022 Assessment & Plan (06/09/2019 12:52 PM WASTE DISPOSAL PLANT OPERATOR): This appears to be chronic and persist despite switching from ACEI to ARB. He will contact his stucco applicator to follow up regarding this. Urinary incontinence 08/18/2018 023 Assessment & Plan (08/18/2018 1:22 AM WASTE DISPOSAL PLANT OPERATOR): Continue with Myrbetriq and vesicare Polymorphic [...] 10/28/2022 Assessment & Plan (06/09/2019 12:47 PM WASTE DISPOSAL PLANT OPERATOR): Congratulated on recent weight loss. Continue attention to diet, low carb, exercise as able. Palpitations 10/30/2012 10/28/2022 Disorder of lung 08/05/2012 10/28/2022 Narcolepsy 01/24/2012 10/28/2022 Abnormal blood chemistry level 01/19/2012 10/28/2022 Syncope 02/28/2011 10/28/2022 Encounter for preventive health examination 11/23/2010 10/28/2022 Encounters Date Type Department Care Team Description 04/24/2025 7:26 AM CDT - 04/24/2025 11:59 PM CDT Hospital Encounter [facility] [address] [place] [address] Discharge Disposition: Discharge to home or self care 04/24/2025 7:26 AM CDT - 04/24/2025 11:59 PM CDT Hospital Encounter [facility]) [address] [place] [id number] Pancreatic adenocarcinoma (HCC) Discharge Disposition: Discharge to home or self care 04/24/2025 Results Follow-Up [facility] [address] [place] [address] [address] [place] [id number] Ben Chahal MD PhD NM bone scan whole body 04/22/2025 4:30 PM CDT Telemedicine [facility] Cancer Genetics Department [address] [place] [phone] Flores Barnett CGC Pancreatic adenocarcinoma (HCC) (Primary Dx); Neurofibromatosis, type 1 (HCC); TP53 gene mutation positive; Encounter for nonprocreative genetic counseling 04/22/2025 Telephone [facility] Cancer Genetics Department [address] [place] [phone] Flores Barnett CGC Genetic Testing Results 04/20/2025 12:15 PM CDT Office Visit [facility] [address] [place] [address] 5 [place] [phone] Ben Chahal MD PhD Pancreatic adenocarcinoma (HCC) 04/20/2025 11:00 AM CDT Clinical Support [facility] On[facility] Lab [address] [place] [address] 5 [place] [address] Pancreatic adenocarcinoma (HCC) 04/20/2025 10:45 AM CDT Clinical Support [facility] - Lab Collection [address] [place] [address] Floor 5 [place] [address] Ben Chahal MD PhD Pancreatic adenocarcinoma (HCC) 04/20/2025 9:09 AM CDT - 04/20/2025 11:59 PM CDT Hospital Encounter [facility] [address] [place] [address] Pancreatic adenocarcinoma (HCC) Discharge Disposition: Discharge to home or self care 04/20/2025 Orders Only [facility] [address] [facility] [address] [place] [phone] Tory Nye Pancreatic adenocarcinoma (HCC) (Primary Dx) 04/13/2025 2:20 PM CDT Office Visit [facility] Endocrinology Metabolism and Lipid [address] [facility] [address], [address] [place] [phone] Margaret Balderas MD Type 2 diabetes mellitus with other specified complication, without long-term current use of insulin (Primary Dx); Type 2 diabetes mellitus with hyperglycemia, with long-term current use of insulin (HCC); Severe hyperglycemia due to diabetes mellitus (HCC) 04/11/2025 Orders Only [facility] Endocrinology Metabolism and Lipid [address] [facility] 13th [place] [address] Brii Mason MD Type 2 diabetes mellitus with other specified complication, without long-term current use of insulin 04/07/2025 7:30 PM CDT Office Visit [facility] Medical Group [facility] at [address] [phone] Rick Alvarez NP Pain in left testicle (Primary Dx); Swelling of left testicle 03/31/2025 4:37 PM CDT - 04/03/2025 8:40 AM CDT Hospital Encounter [facility] [phone] [facility] [place] [address] Matthias Laurent MD Baum, MD Phoenix Butcher Sonya Yannie, MD Martin, Nathan R., MD Intractable chronic migraine without aura and without status migrainosus (Primary Dx); Neurofibromatosis, type 1 (HCC); Acute nonintractable headache, unspecified headache type; Leg weakness, bilateral Discharge Disposition: Discharge to home or self care 03/31/2025 Documentation [facility] Medicine Oncology [address] [place] [address] Mary Grady CMA 03/26/2025 10:30 AM CDT Telemedicine [facility] Cancer Genetics Department [address] [place] [phone] Flores Barnett CGC Pancreatic adenocarcinoma (HCC) (Primary Dx); Neurofibromatosis, type 1 (HCC); Family history of breast cancer; Family history of melanoma; Family history of thyroid cancer; Family history of adrenal cancer; Encounter for nonprocreative genetic counseling 03/26/2025 Telephone [facility] Cardiology [address] [facility] 8th [place] [address] [place] [address] Nicki Conroy 03/23/2025 1:30 PM CDT Procedure visit [facility] Dermatology [address] [facility] Floor 6 [place] [phone] Kemal Galvez MD Basal cell carcinoma (BCC) of right lower leg (Primary Dx) 03/18/2025 8:30 AM CDT Office Visit [facility] Cardiology [address] [facility] [address] [place] [phone] Gil Baldwin MD Chronic diastolic congestive heart failure (HCC) (Primary Dx); Coronary artery disease involving tribal coronary artery of tribal heart, unspecified whether angina present; Paroxysmal atrial fibrillation (HCC) 03/06/2025 Documentation [facility] Endocrinology Metabolism and Lipid [address] [facility] 13th [place] [address] Mirtha Escalona MD 02/28/2025 8:43 PM CDT - 03/05/2025 3:43 PM CDT Hospital Encounter [facility] [address] [facility] [place] [address] Jorge L Garcia MD Qapaja, Thabet J.M., MD Markova, Hannah Marie, MD Yu, Tong, MD Fever, unspecified fever cause (Primary Dx); Encounter for post surgical wound check Discharge Disposition: Discharge to home or self care 02/28/2025 Telephone [facility] [address] [place] [address] [address] [place] [address] Melva Vo RN 02/25/2025 Results Follow-Up [facility] Dermatology [address] [facility] [address] [place] [phone] Kemal Galvez MD Surgical pathology 02/24/2025 Orders Only [facility] Medicine Pathology Outreach [address] [place] [address] Kemal Galvez MD Neoplasm of skin 02/23/2025 2:00 PM CDT Office Visit [facility] Dermatology [address] [facility] Floor 6 [place] [phone] Kemal Galvez MD Neoplasm of skin (Primary Dx); Neurofibroma; Neurofibromatosis, type 1 (HCC) 02/13/2025 Telephone [facility] Surgery [address] [facility] [address] [place] [phone] Oksana Faust RN 02/06/2025 Telephone [facility] Cardiology [address] [facility] 8th [place] [address] [place] [phone] Pebbles Nelson MD 02/05/2025 1:36 PM CDT - 02/05/2025 11:59 PM CDT Hospital Encounter [facility] [address] [place], [place] [phone] Malignant neoplasm of pancreas, unspecified location of malignancy (HCC); Intractable pain Discharge Disposition: Discharge to home or self care 02/05/2025 Documentation [facility] Oncology [address] [facility] Floor 5 [place] [phone] Breanna Han RN from Last 3 Months Immunizations Immunization Administration [...] 02/22/2019 Surgical History Surgery Date Site/Laterality Comments [place] TONSILLECTOMY PRIMARY/SECONDARY <AGE 12 07/02/1957 - 07/01/1958 [...] Acute hypoxemic respiratory failure due to COVID-19 ([facility]) 06/07/2023 Family History Medical History Relation Name Comments Infant Brother 1 Joesph Multiple myeloma Brother 2 [...] No 09/03/2023 OASIS B1300: Health Literacy Answer Ivná e Recorded Frequency of needing help to [...] often do you attend chur ch or shinto services? More than 4 times per year 01/13/2025 Do you belong to any clubs o r organizations such as adventism groups, unions, fraternal or athletic groups, or [...] Date Recorded PHQ-2 Total Score 1 09/21/2024 [facility] - Occupational [...] slept in a fpc (including now)? No 11/12/2023 PHQ-9 Answer Date [...] any time in the past 12 m [facility], were you homeless or living in a fpc (including now)? No 01/13/2025 Social Connection and Isolation Panel Answer Date Recorded In a typical week, how many times do you talk on the phone with family, friends, or neighbors? More than three times a week 04/01/2025 How often do you get togethe r with friends or relatives? More than three times a week 04/01/2025 How often do you attend chur ch or shinto services? More than 4 times per year 04/01/2025 Do you belong to any clubs o r organizations such as adventism groups, unions, fraternal or athletic groups, or [...] any time in the past 12 m [facility], were you homeless or living in a fpc (including now)? 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 Gender Identity Male 11/11/2018 10:31 AM CDT Sexual Orientation Straight 06/09/2019 5: 34 PM [employer] OPERATOR Last Filed Vital Signs Vital Sign Reading Time Taken Comments Blood Pressure 119/73 04/20/2025 11:15 AM CDT Pulse 63 04/20/2025 11:15 AM CDT Temperature 36.4 C (97.6 F) 04/20/2025 11:15 AM CDT Respiratory Rate 16 04/20/2025 11:15 AM CDT Oxygen Saturation 97% 04/20/2025 11:15 AM CDT Inhaled Oxygen Concentration - - Weight 99.8 kg (220 lb) 04/20/2025 11:15 AM CDT Height 175.3 cm (5' 9) 04/13/2025 2:20 PM CDT Body Mass Index 32.49 04/13/2025 2:20 PM CDT Plan of Treatment Health Maintenance [...] Additional history exists Hemoglobin A1C 09/28/2025 03/31/2025, 052 07/2024, 09/21/2024, Additional history exists Lipid Panel 11/19/2025 11/19/2024, 08/2 07/2023, 09/22/2022, Additional history exists Fall Risk Assessment 04/03/2026 04/03/2025, 01/09/20 23 eGFR 04/20/2026 04/20/2025, 04/01, 04/02/2025, Additional history exists DTaP/Tdap/Td Vaccine (2 - Td or Tdap) 02/22/2029 02/22/2019 Colon Cancer Screening-Colonoscopy 11/11/2034 11/11/2024, 07/23/2023 Pneumococcal vaccine 65+ Completed 03/16/2022 Colon Cancer Screening-CT Colonography Discontinued 11/11/2024, 07/23/2023 Colon Cancer Screening-DNA Stool Discontinued 11/12/19, 07/23/2023 Colon Cancer Screening-FIT Discontinued 11/11/2024, Colon Cancer Screening-Sigmoidoscopy Discontinued 11/11/2024, 07/23/2023 Hepatitis C Screening Completed 03/03/2025 , 07/25/2024, 08/21/2022 Abdominal Aortic Aneurysm (A AA) Screen Completed 04/20/2025, 02/28/2025, 01/12/2025, Additional history exists Medical Devices Implanted Type Area Field Service Poultry Technician Device Identifier Shelf Expiration Date Model / Serial / Lot Biotronik Inc Implant Cardiac Defibrillator Dual Chamber Dr Chaparro Mri Compatible Blaine Son [id number] - [id number] - [id number] Implanted:Qty: 1 on 10/10/2023 by Pebbles Nelson MD at [facility] ICD Left: Chest Wall Biotronik Inc [id number] 08/01/2025 [id number] / [id number] / Medtronic Bladder Lead [id number] Lead Pelvis Medtronic [id number] 8 / [id number] / Lead (Ra)-Setrox S S 53 Implanted:2013 by Pebbles Nelson MD (Quantity not on file) Lead Heart Biotronik 350 974 SETROX S S 53 / [id number] / Lead (Rv)-Linox Smart Sd Implanted:2013 by Pebbles Nelson MD (Quantity not on file) Lead Heart Biotronik 359 067 LINOX SMART SD 6518 / [id number] / Medtronic Inc Tyrx Absorbable Antibacterial Envelope-Large 3.3x2.9in [id number] - [id number] - [id number] Implanted:Qty: 1 on 10/10/2023 by Pebbles Nelson MD at [facility] Other - see comments Left: Chest Wall Medtronic Inc 07/03/2024 [id number] / [id number] / [id number] Description:Antibacterial en velope Conmed Lei Viabil 8mm X 6cm Longwire [id number] - [id number] - [id number] Implanted:Qty: 1 on 12/15/2022 by Fede Das MD at [facility] Stent N/A: Bile Duct Conmed Lei 12/11/2024 [id number] / [id number] / [employer] Lei 8.5 Fr Nasal Biliary Catheter [id number] - [id number] Implanted:Qty: 1 on 04/25/2023 by Zuri Mera MD at [facility] Tube N/A: Jejunum [employer] Lei 04/02/2025 [id number] 40 / / [id number] Medtronic Interstim Bladder Stimulator 3058-03/26/2020 Implanted:2019 (Quantity not on file) Pelvis Medtronic [id number] / [id number] / Description:MRI compatable Use pt remote (menu MRI active) [employer] Lei Wallflex 8mm 8fr 60mm Rapid Exchange Delivery System Stent [id number] - [id number] Implanted:Qty: 1 on 09/08/2022 by Fede Das MD at [facility] N/A: Bile Duct [employer] Lei 03/21/2024 [id number] 10 / / [id number] Angio Dynamics Xcela Power Port 8fr [id number] - [id number] Implanted:Qty: 1 on 09/13/2022 at [facility] Angio Dynamics 04/19/2027 [id number] / / [id number] [employer] Lei Supple Carmina-Guard [place] [employer] 8x6cm Patch Cardiovascular [id number] - [id number] - [id number] Implanted:Qty: 1 on 04/11/2023 by Adrian Martinez MD at [facility] N/A: Superior Mesenteric Vein [employer] Lei [id number] 06/09/2027 [id number] / [id number] / [employer] Lei 8.5 Fr Nasal Biliary Catheter [id number] - [id number] Implanted:Qty: 1 on 05/01/2023 by Fede Das MD at [facility] Left: Nose [employer] Lei 12/18/2025 [id number] 40 / / [id number] Explanted Type Area Field Service Poultry Technician Device Identifier Shelf Expiration Date Model / Serial / Lot Icd-Iforia 7 Elisa Implanted:Qty: 1 on 02/19/2014 by Pebbles Nelson MD Explanted:Qty: 1 on 10/10/2023 ICD Chest Biotronik [id number] IFSWEETIE [place] / [id number] / [employer] Lei 10fr 5cm Biliary Stent [id number] - [id number] Implanted:Qty: 1 on 08/22/2022 by Fede Das MD at [facility] Explanted:Qty: 1 on 09/08/2022 by Fede Das MD at [facility] N/A: Bile Duct BackTrack Lei 01/27/2023 [id number] / / [id number] Procedures Procedure Name Priority Date/Time Associated Diagnosis Comments MARCOS-65 AUTOANTIBODY Routine 04/28/2025 9:34 AM CDT Severe hyperglycemia due to diabetes mellitus (HCC) INSULIN AUTOANTIBODY Routine 04/28/2025 9:34 AM CDT NM BONE IMAGING WHOLE BODY Schedule Routine, Read Routine (OP Routine) 04/24/2025 10:45 AM CDT Pancreatic adenocarcinoma (HCC) EGFR STAT 04/20/2025 10:54 AM CDT Pancreatic adenocarcinoma (HCC) DIFFERENTIAL AUTO Routine 04/20/2025 10:54 AM CDT Pancreatic adenocarcinoma (HCC) CANCER ANTIGEN 19-9 Routine 04/20/2025 10:54 AM CDT Pancreatic adenocarcinoma (HCC) COMPREHENSIVE METABOLIC PANEL STAT 04/20/2025 10:54 AM CDT Pancreatic adenocarcinoma (HCC) CBC WITH AUTO DIFFERENTIAL Routine 04/20/2025 10:54 AM CDT Pancreatic adenocarcinoma (HCC) CT CHEST ABDOMEN PELVIS W CONTRAST Schedule Routine, Read Routine (OP Routine) 04/20/2025 10:25 AM CDT Pancreatic adenocarcinoma (HCC) ZINC TRANSPORTER 8 (ZNT8) ANTIBODY Routine 04/14/2025 11:32 AM CDT Type 2 diabetes mellitus with other specified complication, without long-term current use of insulin Type 2 diabetes mellitus with hyperglycemia, with long-term current use of insulin (HCC) Severe hyperglycemia due to diabetes mellitus (HCC) ISLET ANTIGEN 2 (IA-2) ANTIBODY Routine 04/14/2025 11:32 AM CDT Type 2 diabetes mellitus with other specified complication, without long-term current use of insulin Type 2 diabetes mellitus with hyperglycemia, with long-term current use of insulin (HCC) Severe hyperglycemia due to diabetes mellitus (HCC) BASIC METABOLIC PANEL Routine 04/14/2025 11:32 AM [...] unspecified location of malignancy (HCC) Intractable pain LIPID PANEL STAT 11/19/2024 1:05 PM CDT COLONOSCOPY 11/11/2024 11:01 AM CDT ALBUMIN CREATININE RATIO, URINE Routine 02/29/2024 8:27 AM CDT Type 2 diabetes mellitus with microalbuminuria, with long-term current use of insulin (HCC) PSA SCREEN Routine 04/16/2020 7:01 AM CDT Low testosterone in male from Last 3 Months or Most Recently Relevant to Health Maintenance Results * (ABNORMAL) INSULIN AUTOANTIBODY (04/28/2025 9:34 AM CDT) Insulin ab 1.8(H) <0.4 U/mL [facility]/Natanael quevedo [facility], 04/28/2025 9:34 AM CDT 04/28/2025 9:35 AM CDT Narrative [facility] - 05/05/2025 5:39 AM WASTE DISPOSAL PLANT OPERATOR FASTING:YES FASTING: YES Margaret Balderas MD LAB MICROBIOLOGY - GENERAL O RDERABLES Final Result [facility]/Dona [facility], [address] [place] [address] * MARCOS-65 autoantibody (04/28/2025 9:34 AM CDT) Glutamic acid decarboxylase 65, ab <5 <5 IU/mL [facility] Comment: This test was performed using the GAD65 JUAN method, which is standardized against the International reference preparation 97/550. Blood 04/28/2025 9:34 AM CDT 04/28/2025 9:35 AM CDT Narrative [facility] - 05/05/2025 5:39 AM WASTE DISPOSAL PLANT OPERATOR FASTING:YES FASTING: YES us Margaret Balderas MD LAB BLOOD ORDERABLES Final R esult [facility]/Dona [facility] [address] [facility] [address] [place] [address] * NM bone scan whole body (04/24/2025 10:45 AM CDT) Anatomical Region Laterality Modality N/A Nuclear Medicine 04/24/2025 11:0 5 AM CDT Impressions 04/24/2025 11:28 AM CDT 1. No evidence of osseous metastatic disease. 2. Previously described T12 sclerotic lesion is not scintigraphically evident and therefore likely field representative/health education of a benign lesion. 3. Multifocal degenerative joint disease. Dictated by: Rajesh Cuevas M.D. The radiology attending physician has personally reviewed this study, and had reviewed and/or edited this written report and agrees with it. Electronically signed by: Bianka Fan DO Narrative 04/24/2025 11:28 AM CDT EXAMINATION: BONE SCINTIGRAPHY (WHOLE-BODY) DATE OF STUDY: 04/24/2025 RADIOPHARMACEUTICAL: 23.6 mCi Tc-99m MDP i.v. HISTORY: 70-year-old male with pancreatic head adenocarcinoma status post multiple procedure in April 2023. 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 FINDINGS: Delayed whole-body scintigrams were obtained. Prior nuclear medicine studies used for comparison: none Other radiographic comparisons: CT, 04/20/2025. There is normal distribution of activity throughout the skeleton. Degenerative changes are noted within the bilateral shoulders, knees, and ankles. No scintigraphic correlate for previously described T12 vertebral body sclerotic lesion, therefore likely field representative/health education of a benign lesion like a bone island. Procedure Note Bianka Fan DO - 04/24/2025 EXAMINATION: BONE SCINTIGRAPHY (WHOLE-BODY) DATE OF STUDY: 04/24/2025 RADIOPHARMACEUTICAL: 23.6 mCi Tc-99m MDP i.v. HISTORY: 70-year-old male with pancreatic head adenocarcinoma status post multiple procedure in April 2023. 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 FINDINGS: Delayed whole-body scintigrams were obtained. Prior nuclear medicine studies used for comparison: none Other radiographic comparisons: CT, 04/20/2025. There is normal distribution of activity throughout the skeleton. Degenerative changes are noted within the bilateral shoulders, knees, and ankles. No scintigraphic correlate for previously described T12 vertebral body sclerotic lesion, therefore likely field representative/health education of a benign lesion like a bone island. IMPRESSION: 1. No evidence of osseous metastatic disease. 2. Previously described T12 sclerotic lesion is not scintigraphically evident and therefore likely field representative/health education of a benign lesion. 3. Multifocal degenerative joint disease. Dictated by: Rajesh Cuevas M.D. The radiology attending physician has personally reviewed this study, and had reviewed and/or edited this written report and agrees with it. Electronically signed by: Bianka Fan DO Ben Chahal MD PhD IM NM PROCEDURES Final Result * eGFR (04/20/2025 10:54 AM CDT) eGFR >90 >=60 mL/min/1. 73 [...] interpretive data was last reviewed 2021. Blood 04/20/2025 10:5 4 AM CDT 04/20/2025 11:03 AM CDT us Ben Chahal MD PhD LAB BLOOD ORDERABLES Fin al Result DAVID VIRGEN [facility] [place] [address] * (ABNORMAL) Differential, auto (04/20/2025 10:54 AM CDT) Neutrophil abs 4.15 1.50 - 6.50 K/cumm Comment:Testing performed by : [facility] Heme Lab, [address] [place], [place] [phone] Lymphocyte abs 0.64(L) 0.80 - 3.30 K/cumm DAVID VIRGEN Comment:Testing performed by : [facility], [address] [place] [address] Monocyte abs 0.44 0.20 - 0.80 K/cumm DAVID VIRGEN Comment:Testing performed by : [facility]e [facility], [address] [place] [address] Eosinophil abs 0.16 0.00 - 0.50 K/cumm DAVID VIRGEN Comment:Testing performed by : [facility]e Lab, [address] [place] [address] Basophil abs 0.04 0.00 - 0.10 K/cumm DAVID VIRGEN Comment:Testing performed by : [facility]e [facility], [address] [place] [address] Neutrophil pct 76.5 % CERPETAR VIRGEN Comment: Interpretive Data Percent cell count reference ranges are not reported, since discordance with absolute values may lead to misinterpretation of CBC data. Current Interpretive Data was last revised on 2017. Testing performed by: [facility]e [facility], [address] [place] [phone] Lymphocyte pct 11.7 % CERPETAR VIRGEN Comment: Interpretive Data Percent cell count reference ranges are not reported, since discordance with absolute values may lead to misinterpretation of CBC data. Current Interpretive Data was last revised on 2017. Testing performed by: [facility]e [facility], [address] [place] [phone] Monocyte pct 8.2 % CERPETAR VIRGEN Comment: Interpretive Data Percent cell count reference ranges are not reported, since discordance with absolute values may lead to misinterpretation of CBC data. Current Interpretive Data was last revised on 2017. Testing performed by: [facility][Note 3] Lab, [address] [place] [address] Eosinophil pct 2.9 % DAVID VIRGEN Comment: Interpretive Data Percent cell count reference ranges are not reported, since discordance with absolute values may lead to misinterpretation of CBC data. Current Interpretive Data was last revised on 2017. Testing performed by: [facility] Heme Lab, [address] [place] [phone] Basophil pct 0.7 % CERPETAR VIRGEN Comment: Interpretive Data Percent cell count reference ranges are not reported, since discordance with absolute values may lead to misinterpretation of CBC data. Current Interpretive Data was last revised on 2017. Testing performed by: [facility]e [facility], [address] [place] [phone] Blood 04/20/2025 10:5 4 AM CDT 04/20/2025 10:57 AM CDT us Ben Chahal MD PhD LAB BLOOD ORDERABLES Fin al Result [facility] [place] [address] * (ABNORMAL) CBC with auto differential (04/20/2025 10:54 AM CDT) WBC 5.43 3.80 - 9.90 K/cumm Comment:Testing performed by : [facility] Heme Lab, [address] [place] [address] Hgb 12.2(L) 13.0 - 17.5 g/dL CERNER BJ Comment:Testing performed by : [facility]e Lab, [address] [place] [address] Hct 37.5(L) 38.9 - 50.3 % CERNER BJ Comment:Testing performed by : [facility], [address] [place] [address] Plt 137(L) 150 - 400 K/cumm CERNER BJ Comment:Testing performed by : [facility]e [facility], [address] [place] [address] MPV 8.0 6.8 - 10.4 fL CERNER BJ Comment:Testing performed by : [facility]e [facility], [address] [place] [address] RBC 4.61 4.30 - 5.80 M/cumm CERNER BJ Comment:Testing performed by : [facility]e [facility], [address] [place] [address] MCV 81.4 81.3 - 96.4 fL CERNER BJ Comment:Testing performed by : [facility], [address] [place] [address] MCH 26.4(L) 27.1 - 33.3 pg CERNER BJ Comment:Testing performed by : [facility], [address] [place] [address] MCHC 32.4 32.3 - 35.7 g/dL CERNER BJ Comment:Testing performed by : [facility], [address] [place] [address] RDW CV 18.4(H) 11.1 - 14.9 % CERNER BJ Comment:Testing performed by : [facility]e [facility], [address] [place] [phone] NRBC abs 0.00 0.00 - 0.01 K/cumm [facility] Comment:Testing performed by : [facility], [address] [place] [phone] Blood 04/20/2025 10:5 4 AM CDT 04/20/2025 10:57 AM CDT Ben hCahal MD PhD LAB BLOOD ORDERABLES Fin al Result Performing Organization Address [facility] de Phone Number [facility] [place] [address] * Cancer antigen 19-9 (04/20/2025 10:54 AM CDT) Pathologist [facility] CA 19-9 ag 25.3 <=35.0 units/mL Comment: Interpretive Data [employer] CA 19-9 assay procedure was used. Results from different manufacturers or methods may not be comparable. Serial testing should be performed using the same method. Blood 04/20/2025 10:5 4 AM CDT 04/20/2025 11:32 AM CDT Ben Chahal MD PhD LAB BLOOD ORDERABLES Fin al Result Performing Organization Address [facility] de Phone Number [facility] Department [place] [address] * (ABNORMAL) Comprehensive metabolic panel (04/20/2025 10:54 AM CDT) Sodium 141 135 - 145 mmol/L Potassium, pl 4.4 3.3 - 4.9 mmol/L [facility] Chloride 105 97 - 110 mmol/L [facility] CO2 27 22 - 32 mmol/L [facility] Anion gap 9 2 - 15 mmol/L [facility] BUN 24 6 - 25 mg/dL [facility] Creatinine 0.71(L) 0.80 - 1.30 mg/dL [facility] Glucose 225(H) 70 - 199 mg/dL [facility] Comment: Interpretive Data Fasting glucose [...] interpretive data was last revised 2022. Calcium 9.3 8.5 - 10.3 mg/dL [facility] Bilirubin, total 0.3 0.1 - 1.2 mg/dL [facility] Protein, pl 6.8 6.5 - 8.5 g/dL [facility] Albumin 3.8 3.5 - 5.0 g/dL [facility] Alk phos 413(H) 40 - 130 Units/L [facility] ALT 40 7 - 55 Units/L [facility] AST 33 10 - 50 Units/L [facility] Blood 04/20/2025 10:5 4 AM CDT 04/20/2025 11:03 AM CDT us Ben Chahal MD PhD LAB BLOOD ORDERABLES Fin al Result [facility] [place] [address] * CT chest abdomen pelvis with contrast (04/20/2025 10:25 AM CDT) Anatomical Region Laterality Modality Body N/A Computed Tomogra phy 04/20/2025 11:2 2 AM CDT Impressions 04/20/2025 12:18 PM CDT 1. Sclerotic lesion in vertebral body of T12 is new from remote priors. Recommend further evaluation with a bone scan. 2. Stable post Whipple changes with stable soft tissue thickening abutting the SMA and celiac artery favored to represent post-treatment changes. 3. No other evidence of recurrent or metastatic disease in the chest, abdomen, or pelvis. Dictated by: Bruno Narayanan M.D. The radiology attending physician has personally reviewed this study, and had reviewed and/or edited this written report and agrees with it. Electronically signed by: oKlton Dale M.D. Narrative 04/20/2025 12:18 PM CDT EXAMINATION: Computed tomography of the chest, abdomen and pelvis with intravenous contrast HISTORY: Pancreatic adenocarcinoma. Evaluate for disease recurrence. TECHNIQUE: Transaxial computed tomographic images of the chest, abdomen and pelvis were obtained with intravenous contrast according to the standard protocol after the administration of 69 mL Opti-Ray 350 intravenous contrast. COMPARISON: 02/28/2025 FINDINGS: Chest: Left chest wall pacemaker with leads in the right atrium and right ventricle. Findings of old granulomatous disease. Bibasilar atelectasis. No pleural effusion, pneumothorax, pulmonary edema, or focal consolidation. Heart size is upper limits of normal. Mild atherosclerotic coronary artery calcifications. The thoracic aorta and main pulmonary artery have normal caliber. No central pulmonary embolism. No pericardial effusion. Stable right thyroid nodule. Correlate with prior diagnostic workup. No supraclavicular lymphadenopathy. No pathologically enlarged mediastinal or hilar lymph nodes. Prominent left axillary lymph nodes with retention of fatty hilum and stability from 01/19/2025. No acute imaged pathology of the esophagus. Abdomen/Pelvis: Calcified granulomas in the spleen. Stable left adrenal nodule better characterized on MRI 01/18/2025. Postsurgical changes of Whipple surgery with mild atrophy of the residual pancreas. Stable pneumobilia. No focal liver lesions. Right and left portal veins are widely patent. Hepatic veins are poorly characterized on this study. 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 No new or worsening stranding, soft tissue, or fluid collection in the vertical bed to suggest disease recurrence. Nonobstructing bilateral renal stones. No hydronephrosis. Urinary bladder is distended with mild diffuse wall thickening. Moderate stool volume in the rectum. The colon has normal course and caliber. Reticulosis without evidence of diverticulitis. Normal appendix. Normal terminal ileum. No acute pathology of the small bowel. Interval increase in size of fat-containing paraumbilical hernia. Mild to moderate atherosclerotic disease of the abdominal aorta without aneurysmal dilation. Multiple mildly prominent periaortic lymph nodes are stable from previous. None of these meet size criteria for pathologic enlargement. No pelvic lymphadenopathy. No pathologically enlarged pelvic lymph nodes There is a sclerotic lesion in the T12 vertebral body, not seen on remote prior studies. Procedure Note Kolton Dale MD - 04/20/2025 EXAMINATION: Computed tomography of the chest, abdomen and pelvis with intravenous contrast HISTORY: Pancreatic adenocarcinoma. Evaluate for disease recurrence. TECHNIQUE: Transaxial computed tomographic images of the chest, abdomen and pelvis were obtained with intravenous contrast according to the standard protocol after the administration of 69 mL Opti-Ray 350 intravenous contrast. COMPARISON: 02/28/2025 FINDINGS: Chest: Left chest wall pacemaker with leads in the right atrium and right ventricle. Findings of old granulomatous disease. Bibasilar atelectasis. No pleural effusion, pneumothorax, pulmonary edema, or focal consolidation. Heart size is upper limits of normal. Mild atherosclerotic coronary artery calcifications. The thoracic aorta and main pulmonary artery have normal caliber. No central pulmonary embolism. No pericardial effusion. Stable right thyroid nodule. Correlate with prior diagnostic workup. No supraclavicular lymphadenopathy. No pathologically enlarged mediastinal or hilar lymph nodes. Prominent left axillary lymph nodes with retention of fatty hilum and stability from 01/19/2025. No acute imaged pathology of the esophagus. Abdomen/Pelvis: Calcified granulomas in the spleen. Stable left adrenal nodule better characterized on MRI 01/18/2025. Postsurgical changes of Whipple surgery with mild atrophy of the residual pancreas. Stable pneumobilia. No focal liver lesions. Right and left portal veins are widely patent. Hepatic veins are poorly characterized on this study. 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 No new or worsening stranding, soft tissue, or fluid collection in the vertical bed to suggest disease recurrence. Nonobstructing bilateral renal stones. No hydronephrosis. Urinary bladder is distended with mild diffuse wall thickening. Moderate stool volume in the rectum. The colon has normal course and caliber. Reticulosis without evidence of diverticulitis. Normal appendix. Normal terminal ileum. No acute pathology of the small bowel. Interval increase in size of fat-containing paraumbilical hernia. Mild to moderate atherosclerotic disease of the abdominal aorta without aneurysmal dilation. Multiple mildly prominent periaortic lymph nodes are stable from previous. None of these meet size criteria for pathologic enlargement. No pelvic lymphadenopathy. No pathologically enlarged pelvic lymph nodes There is a sclerotic lesion in the T12 vertebral body, not seen on remote prior studies. IMPRESSION: 1. Sclerotic lesion in vertebral body of T12 is new from remote priors. Recommend further evaluation with a bone scan. 2. Stable post Whipple changes with stable soft tissue thickening abutting the SMA and celiac artery favored to represent post-treatment changes. 3. No other evidence of recurrent or metastatic disease in the chest, abdomen, or pelvis. Dictated by: Bruno Narayanan M.D. The radiology attending physician has personally reviewed this study, and had reviewed and/or edited this written report and agrees with it. Electronically signed by: Kolton Dale M.D. us Tiffany WAYNE IMG CT PROCEDURES Final Re sult * Islet antigen 2 (IA-2) antibody (04/14/2025 11:32 AM CDT) IA-2 Ab <5.4 <5.4 U/mL [facility], Comment: This test was performed using the IA-2 Antibody JUAN method which is standardized against the WHO Reference Reagent 97/550. The reference range reported was established specifically for this test method. Blood 04/14/2025 11:3 2 AM CDT 04/14/2025 11:32 AM CDT [facility] - 04/18/2025 4:30 PM CDT FASTING:YES FASTING: YES Margaret Balderas MD LAB BLOOD ORDERABLES Final R esult [facility] [facility], [address] [place] [address] * ZINC TRANSPORTER 8 (ZnT8) ANTIBODY (04/14/2025 11:32 AM CDT) Zinc Transporter 8 (Znt8) Antibody <10 <15 U/mL [facility], Comment: For additional information, please refer to http://education.Nacuii/faq/BBY126 (This link is being provided for information/educational purposes only.) Blood 04/14/2025 11:3 2 AM CDT 04/14/2025 11:32 AM CDT Narrative [facility] - 04/18/2025 4:30 PM CDT FASTING:YES FASTING: YES Margaret Balderas MD LAB BLOOD ORDERABLES Final R esult Performing Organization Address [facility]/ZIP Co de Phone Number [facility], [address] [place] [address] * C-peptide (04/14/2025 11:32 AM CDT) C-peptide 1.24 0.80 - 3.85 ng/mL [facility]gs Blood 04/14/2025 11:3 2 AM CDT 04/14/2025 11:32 AM CDT Narrative [facility] - 04/18/2025 4:30 PM CDT FASTING:YES FASTING: YES Margaret Balderas MD LAB BLOOD ORDERABLES Final R esult Performing Organization Address City/[facility]/ZIP Co de Phone Number [facility] [address] [place] [address] * (ABNORMAL) Basic metabolic panel (04/14/2025 11:32 AM CDT) Glucose 183(H) 65 - 99 mg/dL [facility] Liliana Murphy Comment: Fasting reference interval For someone without known diabetes, a glucose value >125 mg/dL indicates that they may have diabetes and this should be confirmed with a follow-up test. BUN 17 7 - 25 mg/dL Brigitte Murphy Creatinine 0.68(L) 0.70 - 1.28 mg/dL Brigitte Murphy eGFR 100 > OR = 60 mL/min/1.7 3m2 Brigitte Murphy BUN/creat ratio 25(H) 6 - 22 (calc) [facility] Sodium 143 135 - 146 mmol/L [facility] Potassium, pl 4.6 3.5 - 5.3 mmol/L [facility] Chloride 107 98 - 110 mmol/L [facility] CO2 28 20 - 32 mmol/L [facility] Calcium 9.2 8.6 - 10.3 mg/dL [facility] Blood 04/14/2025 11:3 2 AM CDT 04/14/2025 11:32 AM CDT Narrative [facility] - 04/18/2025 4:30 PM CDT FASTING:YES FASTING: YES Margaret Balderas MD LAB BLOOD ORDERABLES Final R esult Performing Organization Address City/[facility]/ZIP Co de Phone Number [facility] [address] [place] [address] * POCT glucose (04/03/2025 8:32 AM CDT) Glucose, POC 152 70 - 199 mg/dL Comment: Interpretive Data Glucose is assumed to be non-fasting. Fasting Glucose reference ranges are: 0 - 150 years: 70 mg/dL - 99 mg/dL Current interpretive data was last revised on 2014. POC Device Number [id number] [facility] Blood 04/03/2025 8:32 AM CDT 04/03/2025 8:32 AM CDT Jenaro Villalobos MD LAB POCT ORDERABLES - DEVICE Final Result [facility] [id number] [facility] Department of Laboratories [place], [place] [id number] * (ABNORMAL) POCT glucose (04/02/2025 8:44 PM CDT) Glucose, POC 293(H) 70 - 199 mg/dL Comment: Interpretive Data Glucose is assumed to be non-fasting. Fasting Glucose reference ranges are: 0 - 150 years: 70 mg/dL - 99 mg/dL Current interpretive data was last revised on 2014. POC Device Number [id number] [facility] [place] Blood 04/02/2025 8:44 PM CDT 04/02/2025 8:44 PM CDT Eugenie Garibay MD LAB POCT ORDERABLES - DEVICE Final Result Performing Organization Address [facility] de Phone Number [facility] [address] [facility] [employer] [place], [place] [phone] * POCT glucose (04/02/2025 6:46 PM CDT) Glucose, POC 187 70 - 199 mg/dL Comment: Interpretive Data Glucose is assumed to be non-fasting. Fasting Glucose reference ranges are: 0 - 150 years: 70 mg/dL - 99 mg/dL Current interpretive data was last revised on 2014. POC Device Number [id number] 4 [facility] [place] Blood 04/02/2025 6:46 PM CDT 04/02/2025 6:46 PM CDT us Eugenie Garibay MD LAB POCT ORDERABLES - DEVICE Final Result Performing Organization Address [facility] de Phone Number [facility] [address] [facility] [place] [address] * POCT glucose (04/02/2025 5:32 PM CDT) Glucose, POC 141 70 - 199 mg/dL Comment: Interpretive Data Glucose is assumed to be non-fasting. Fasting Glucose reference ranges are: 0 - 150 years: 70 mg/dL - 99 mg/dL Current interpretive data was last revised on 2014. POC Device Number [id number] 4 [facility] [place] Blood 04/02/2025 5:32 PM CDT 04/02/2025 5:32 PM CDT us Eugenie Garibay MD LAB POCT ORDERABLES - DEVICE Final Result Performing Organization Address [facility]/ZIP Co de Phone Number [facility] [address] [facility] [place] [address] * Lactate (04/02/2025 2:27 PM CDT) Lactate 1.5 0.7 - 2.0 mmol/L Blood 04/02/2025 2:27 PM CDT 04/02/2025 2:31 PM CDT Radha Thompson NP LAB BLOOD ORDERABLES Final Result Performing Organization Address [facility] de Phone Number [facility] [address] [facility] [place] [address] * eGFR (04/02/2025 2:27 PM CDT) eGFR >90 >=60 mL/min/1. 73 [...] NP LAB BLOOD ORDERABLES Final Result [facility] [address] [place] [facility]. [place] [address] * (ABNORMAL) Differential, auto (04/02/2025 2:27 PM CDT) Neutrophil abs 3.45 1.50 - 6.50 K/cumm Imm gran abs 0.02 0.00 - 0.10 K/cumm [facility] Lymphocyte abs 0.76(L) 0.80 - 3.30 K/cumm [facility] Monocyte abs 0.45 0.20 - 0.80 K/cumm [facility] Eosinophil abs 0.16 0.00 - 0.50 K/cumm [facility] Basophil abs 0.04 0.00 - 0.10 K/cumm [facility] Neutrophil pct 70.7 % [facility] Comment: Interpretive Data Percent cell count reference ranges are not reported, since discordance with absolute values may lead to misinterpretation of CBC data. Current Interpretive Data was last revised on 2017. Imm gran pct 0.4 % [facility] Comment: Interpretive Data Percent cell count reference ranges are not reported, since discordance with absolute values may lead to misinterpretation of CBC data. Current Interpretive Data was last revised on 2017. Lymphocyte pct 15.6 % [facility] Comment: Interpretive Data Percent cell count reference ranges are not reported, since discordance with absolute values may lead to misinterpretation of CBC data. Current Interpretive Data was last revised on 2017. Monocyte pct 9.2 % [facility] Comment: Interpretive Data Percent cell count reference ranges are not reported, since discordance with absolute values may lead to misinterpretation of CBC data. Current Interpretive Data was last revised on 2017. Eosinophil pct 3.3 % [facility] Comment: Interpretive Data Percent cell count reference ranges are not reported, since discordance with absolute values may lead to misinterpretation of CBC data. Current Interpretive Data was last revised on 2017. Basophil pct 0.8 % [facility] Comment: Interpretive Data Percent cell count reference ranges are not reported, since discordance with absolute values may lead to misinterpretation of CBC data. Current Interpretive Data was last revised on 2017. Blood 04/02/2025 2:27 PM CDT 04/02/2025 2:31 PM CDT Radha Thompson NP LAB BLOOD ORDERABLES Final Result Performing Organization Address City/State/ZIP Co pa Phone Number [facility] [phone] [facility]. [place] [address] * Pro B-type natriuretic peptide (04/02/2025 2:27 [...] Heart J. 2006:27:330-337. 2. Constantino RW, Naty AM. J. AM Anthony Cardiol: Cardiovasc Imag. 2009;2: 216- 225. Interpretive Data Last Revised Date: 2018. Blood 04/02/2025 2:27 PM CDT 04/02/2025 2:31 PM CDT Radha Thompson NP LAB BLOOD ORDERABLES Final Result Performing Organization Address [facility] de Phone Number [facility] [place] [address] [facility] [place] [address] * (ABNORMAL) CBC with auto differential (04/02/2025 2:27 PM CDT) Pathologist [facility] WBC 4.88 3.80 - 9.90 K/cumm Hgb 12.2(L) 13.0 - 17.5 g/dL [facility] Hct 37.1(L) 38.9 - 50.3 % [facility] Plt 170 150 - 400 K/cumm [facility] MPV 10.3 9.1 - 12.3 fL [facility] RBC 4.54 4.30 - 5.80 M/cumm [facility] MCV 81.7 81.3 - 96.4 fL [facility] MCH 26.9(L) 27.1 - 33.3 pg [facility] MCHC 32.9 32.3 - 35.7 g/dL [facility] CV 16.2(H) 11.1 - 14.9 % [facility] SD 48.1 35.7 - 48.1 fL [facility] NRBC abs 0.00 0.00 - 0.01 K/cumm [facility] Blood 04/02/2025 2:27 PM CDT 04/02/2025 2:31 PM CDT Radha Thompson NP LAB BLOOD ORDERABLES Final Result Performing Organization Address [facility]/ZIP Co de Phone Number [facility] [place] [address] [facility] [employer] [place], [place] [id number] * (ABNORMAL) Comprehensive metabolic panel (04/02/2025 2:27 PM CDT) Sodium 133(L) 135 - 145 mmol/L Potassium, pl 3.7 3.3 - 4.9 mmol/L [facility] Chloride 96(L) 97 - 110 mmol/L [facility] CO2 26 22 - 32 mmol/L [facility] Anion gap 11 2 - 15 mmol/L [facility] BUN 18 6 - 25 mg/dL [facility] Creatinine 0.70(L) 0.80 - 1.30 mg/dL [facility] Glucose 198 70 - 199 mg/dL [facility] Comment: [...] NP LAB BLOOD ORDERABLES Final Result [facility] [place] [address] [facility]. Department of [employer] [place], [place] [phone] * ECG 12 lead (04/02/2025 2:02 PM CDT) 04/02/2025 2:02 PM CDT Narrative [facility] - 04/03/2025 4:18 PM CDT Vent Rate: 60 bpm RR Interval: 997 msec [place] Interval: 273 msec QRS Duration: 169 msec QT Interval: 475 msec QTC Interval: 475 msec P-R-T [place]: 89 - 234 - 179 degrees IMPRESSION: ELECTRONIC ATRIAL PACEMAKER RIGHT AXIS DEVIATION RIGHT BUNDLE BRANCH BLOCK ABNORMAL ECG Electronically Signed By: Gautam Hope MD us Radha Thompson STOCKROOM CLERK ECG ORDERABLES Tete l Result [facility] * XR Chest 1 View (04/02/2025 1:58 [...] signed by: Shabbir Jett M.D. Radha Thompson STOCKROOM CLERK IMG XR PROCEDURES Fi nal Result * (ABNORMAL) POCT glucose (04/02/2025 11:51 AM CDT) Glucose, POC 248(H) 70 - 199 mg/dL Comment: Interpretive Data Glucose is assumed to be non-fasting. Fasting Glucose reference ranges are: 0 - 150 years: 70 mg/dL - 99 mg/dL Current interpretive data was last revised on 2014. POC Device Number [id number] [facility] Blood 04/02/2025 11:5 1 AM CDT 04/02/2025 11:51 AM CDT Eugenie Garibay MD LAB POCT ORDERABLES - DEVICE Final Result Performing Organization Address [facility] de Phone Number [facility] [address] [facility] [place] [phone] * (ABNORMAL) POCT glucose (04/02/2025 8:48 AM CDT) Glucose, POC 221(H) 70 - 199 mg/dL Comment: Interpretive Data Glucose is assumed to be non-fasting. Fasting Glucose reference ranges are: 0 - 150 years: 70 mg/dL - 99 mg/dL Current interpretive data was last revised on 2014. POC Device Number [id number] [facility] Blood 04/02/2025 8:48 AM CDT 04/02/2025 8:48 AM CDT Eugenie Garibay MD LAB POCT ORDERABLES - DEVICE Final Result Performing Organization Address [facility] Co de Phone Number [facility] [address] [facility] [place] [address] * POCT glucose (04/02/2025 2:02 AM CDT) Glucose, POC 158 70 - 199 mg/dL Comment: Interpretive Data Glucose is assumed to be non-fasting. Fasting Glucose reference ranges are: 0 - 150 years: 70 mg/dL - 99 mg/dL Current interpretive data was last revised on 2014. POC Device Number [id number] 4 [facility] [place] Blood 04/02/2025 2:02 AM CDT 04/02/2025 2:02 AM CDT Eugenie Garibay MD LAB POCT ORDERABLES - DEVICE Final Result Performing Organization Address [facility] de Phone Number [facility] [address] [facility] [employer] [place], [place] [phone] * POCT glucose (04/02/2025 12:46 AM CDT) Glucose, POC 138 70 - 199 mg/dL Comment: Interpretive Data Glucose is assumed to be non-fasting. Fasting Glucose reference ranges are: 0 - 150 years: 70 mg/dL - 99 mg/dL Current interpretive data was last revised on 2014. POC Device Number [id number] [facility] [place] Blood 04/02/2025 12:4 6 AM CDT 04/02/2025 12:46 AM CDT us Eugenie Garibay MD LAB POCT ORDERABLES - DEVICE Final Result Performing Organization Address [facility] de Phone Number [facility] [address] [facility] [place] [address] * POCT glucose (04/01/2025 10:30 PM CDT) Glucose, POC 133 70 - 199 mg/dL Comment: Interpretive Data Glucose is assumed to be non-fasting. Fasting Glucose reference ranges are: 0 - 150 years: 70 mg/dL - 99 mg/dL Current interpretive data was last revised on 2014. POC Device Number [id number] [facility] [place] Blood 04/01/2025 10:3 0 PM CDT 04/01/2025 10:30 PM CDT Eugenie Garibay MD LAB POCT ORDERABLES - DEVICE Final Result Performing Organization Address [facility] Co de Phone Number [facility] [address] [facility] [place] [address] * POCT glucose (04/01/2025 7:30 PM CDT) Glucose, POC 183 70 - 199 mg/dL Comment: Interpretive Data Glucose is assumed to be non-fasting. Fasting Glucose reference ranges are: 0 - 150 years: 70 mg/dL - 99 mg/dL Current interpretive data was last revised on 2014. POC Device Number [id number] [facility] [place] Blood 04/01/2025 7:30 PM CDT 04/01/2025 7:30 PM CDT us Eugenie Garibay MD LAB POCT ORDERABLES - DEVICE Final Result Performing Organization Address [facility] de Phone Number [facility] [address] [facility] [place] [address] * (ABNORMAL) POCT glucose (04/01/2025 6:29 PM CDT) Glucose, POC 405(H) 70 - 199 mg/dL Comment: Interpretive Data Glucose is assumed to be non-fasting. Fasting Glucose reference ranges are: 0 - 150 years: 70 mg/dL - 99 mg/dL Current interpretive data was last revised on 2014. POC Device Number [id number] 4 DAVID AdormoWCH Blood 04/01/2025 6:29 PM CDT 04/01/2025 6:29 PM CDT Eugenie Garibay MD LAB POCT ORDERABLES - DEVICE Final Result Performing Organization Address [facility] Co de Phone Number [facility] [address] [facility]. [facility] [place] [address] * (ABNORMAL) POCT glucose (04/01/2025 4:41 PM CDT) Glucose, POC 313(H) 70 - 199 mg/dL Comment: Interpretive Data Glucose is assumed to be non-fasting. Fasting Glucose reference ranges are: 0 - 150 years: 70 mg/dL - 99 mg/dL Current interpretive data was last revised on 2014. POC Device Number [id number] DAVID PEOPLES Blood 04/01/2025 4:41 PM CDT 04/01/2025 4:41 PM CDT us Eugenie Garibay MD LAB POCT ORDERABLES - DEVICE Final Result Performing Organization Address [facility] Co de Phone Number [facility] [address] [address] [facility] [place] [address] * POCT glucose (04/01/2025 11:32 AM CDT) Glucose, POC 164 70 - 199 mg/dL Comment: Interpretive Data Glucose is assumed to be non-fasting. Fasting Glucose reference ranges are: 0 - 150 years: 70 mg/dL - 99 mg/dL Current interpretive data was last revised on 2014. POC Device Number [id number] DAVID PEOPLES Blood 04/01/2025 11:3 2 AM CDT 04/01/2025 11:32 AM CDT us Eugenie Garibay MD LAB POCT ORDERABLES - DEVICE Final Result Performing Organization Address [facility] Co de Phone Number [facility] [address] [address] [facility] [place] [address] * POCT glucose (04/01/2025 7:52 AM CDT) Glucose, POC 187 70 - 199 mg/dL Comment: Interpretive Data Glucose is assumed to be non-fasting. Fasting Glucose reference ranges are: 0 - 150 years: 70 mg/dL - 99 mg/dL Current interpretive data was last revised on 2014. POC Device Number [id number] 1 CERNER BJWCH Blood 04/01/2025 7:52 AM CDT 04/01/2025 7:52 AM CDT us Eugenie Garibay MD LAB POCT ORDERABLES - DEVICE Final Result Performing Organization Address [facility] de Phone Number [facility] [address] [facility] [place] [address] * (ABNORMAL) POCT glucose (03/31/2025 10:21 PM CDT) [facility] Glucose, POC 234(H) 70 - 199 mg/dL Comment: Interpretive Data Glucose is assumed to be non-fasting. Fasting Glucose reference ranges are: 0 - 150 years: 70 mg/dL - 99 mg/dL Current interpretive data was last revised on 2014. POC Device Number [id number] CERNER PARAMWCH Blood 03/31/2025 10:2 1 PM CDT 03/31/2025 10:21 PM CDT us Neeru Funk MD LAB POCT ORDERABLES - DEVICE Final Result Performing Organization Address [facility] Phone Number CERNER BJWCH [phone] [facility] [place] [address] * CT Lumbar Spine WO Contrast (03/31/2025 [...] signed by: Jay Alexis MD Ivanna WAYNE IM CT PROCEDURES Final Res ult * CT [...] signed by: Jay Alexis MD us Ivanna Chinchilla PA IMG CT PROCEDURES Final Res ult * [...] Shabbir Jett M.D. us Ivanna WAYNE IMG XR PROCEDURES Final Res [...] uric acid stone formation. Source: [facility] [place] Current Interpretive Data was last revised on [...] and culture not met. CERNER BJWCH Urine 03/31/2025 5:22 PM CDT 03/31/2025 5:26 PM CDT us Ivanna WAYNE LAB MICROBIOLOGY - GENERAL ORDERABLES Final Result DAVID SWEENEYCH [address] [facility]. [place] [address] * Influenza A/B, RSV, and COVID-19 PCR Nasopharyngeal (03/31/2025 3:04 PM CDT) COVID-19 RNA Negative Negative Influenza A RNA Negative Negative CERNER BJWCH Influenza B RNA Negative Negative CERNER BJW[facility] RSV RNA Negative Negative CERNER BJW[facility] Comment: Testing performed by [facility]. This test is performed using the [employer] Xpert Xpress CoV-2/Flu/RSV plus assay. This is a multiplex, real-time reverse transcriptase PCR assay intended for the qualitative detection of nucleic acid from SARS-CoV-2, influenza A, influenza B, and respiratory syncytial virus. This assay has been cleared by the [place] Food and Drug administration. The performance characteristics have been verified by the [facility]. Results must be considered in the clinical context, and a negative result does not rule out infection. Interpretive Data last revised 2023 Nasopharyngeal 03/31/2025 3: 04 PM CDT 03/31/2025 3:08 PM CDT Narrative DAVDI PEOPLES - 03/31/2025 3:55 PM CDT Is the Patient experiencing symptoms consistent with COVID?->Yes Ivanna WAYNE LAB MICROBIOLOGY - GENERAL ORDERABLES Final Result DAVID [facility] [address] [facility]. [place] [address] * eGFR (03/31/2025 3:04 PM CDT) eGFR [...] WAYNE LAB BLOOD ORDERABLES Final Result DAVID [facility] [address] [facility]. [place] [address] * (ABNORMAL) Differential, auto (03/31/2025 3:04 PM CDT) Neutrophil abs 6.81(H) 1.50 - 6.50 K/cumm Imm gran abs 0.04 0.00 - 0.10 K/cumm CERNER BJWCH Lymphocyte abs 0.81 0.80 - 3.30 K/cumm CERNER BJWCH Monocyte abs 0.93(H) 0.20 - 0.80 K/cumm CERNER BJW[facility] Eosinophil abs 0.12 0.00 - 0.50 K/cumm CERNER BJW[facility] Basophil abs 0.03 0.00 - 0.10 K/cumm CERNER BJW[facility] Neutrophil pct 77.9 % DAVID PEOPLES Comment: Interpretive Data Percent [...] on 2017. Lymphocyte pct 9.3 % DAVID PEOPLES Comment: Interpretive Data Percent cell count reference ranges are not reported, since discordance with absolute values may lead to misinterpretation of CBC data. Current Interpretive Data was last revised on 2017. Monocyte pct 10.6 % DAVID PEOPLES Comment: Interpretive Data Percent cell count reference ranges are not reported, since discordance with absolute values may lead to misinterpretation of CBC data. Current Interpretive Data was last revised on 2017. Eosinophil pct 1.4 % [facility] Comment: Interpretive Data Percent cell count reference ranges are not reported, since discordance with absolute values may lead to misinterpretation of CBC data. Current Interpretive Data was last revised on 2017. Basophil pct 0.3 % [facility] Comment: Interpretive Data Percent cell count reference ranges are not reported, since discordance with absolute values may lead to misinterpretation of CBC data. Current Interpretive Data was last revised on 2017. Blood 03/31/2025 3:04 PM CDT 03/31/2025 3:08 PM CDT us Ivanna WAYNE LAB BLOOD ORDERABLES Final Result DAVID [facility] [address] [facility]. [place] [address] * (ABNORMAL) CBC with auto differential (03/31/2025 3:04 PM CDT) WBC 8.74 3.80 - 9.90 K/cumm Hgb 12.2(L) 13.0 - 17.5 g/dL [facility] Hct 38.4(L) 38.9 - 50.3 % [facility] Plt 199 150 - 400 K/cumm [facility] MPV 11.1 9.1 - 12.3 fL [facility] RBC 4.57 4.30 - 5.80 M/cumm [facility] MCV 84.0 81.3 - 96.4 fL [facility] MCH 26.7(L) 27.1 - 33.3 pg [facility] MCHC 31.8(L) 32.3 - 35.7 g/dL [facility] RDW CV 16.6(H) 11.1 - 14.9 % [facility] RDW SD 50.6(H) 35.7 - 48.1 fL [facility] NRBC abs 0.00 0.00 - 0.01 K/cumm [facility] Blood Venous blood specimen / Unknown 03/31/2025 3:04 PM CDT 03/31/2025 3:08 PM CDT us Ivanna WAYNE LAB BLOOD ORDERABLES Final Result Performing Organization Address [facility] de Phone Number DAVID VIRGENCH [address] [facility] [place] [address] * (ABNORMAL) Hemoglobin A1c (03/31/2025 3:04 PM CDT) [facility] Hgb A1C 8.2(H) 4.0 - 5.6 % Estimated Average Glucose 189 mg/dL [facility] Comment: The ADA recommends reporting an estimated Average Glucose (eAG) with all Hemoglobin A1c results using the equation derived from a study of 507 normal and diabetic adults. Minority populations were underrepresented and children were not included. (Diabetes Care 31:0558-6474, 2008). The eAG is not equivalent to a fasting glucose. Blood 03/31/2025 3:04 PM CDT 03/31/2025 3:08 PM CDT us Eugenie Garibay MD LAB BLOOD ORDERABLES Final R esult Performing Organization Address [facility] Co de Phone Number DAVID VIRGENWCH [address] [facility] [place] [address] * (ABNORMAL) Comprehensive metabolic panel (03/31/2025 3:04 PM CDT) [facility] Sodium 135 135 - 145 mmol/L Potassium, pl 4.2 3.3 - 4.9 mmol/L [facility] Chloride 101 97 - 110 mmol/L [facility] CO2 21(L) 22 - 32 mmol/L CERNER BJW Anion gap 13 2 - 15 mmol/L [facility] BUN 19 6 - 25 mg/dL [facility] W Creatinine 0.63(L) 0.80 - 1.30 mg/dL [facility] Glucose 199 70 - 199 mg/dL [facility] Comment: Interpretive Data Fasting glucose [...] LAB BLOOD ORDERABLES Final Result DAVID SWEENEYCH [address] [facility] [place] [address] * (ABNORMAL) POCT glucose (03/05/2025 12:14 PM CDT) [facility] Signature Glucose, POC 386(H) 70 - 199 mg/dL Comment: Interpretive Data Glucose is assumed to be non-fasting. Fasting Glucose reference ranges are: 0 - 150 years: 70 mg/dL - 99 mg/dL Current interpretive data was last revised on 2014. POC Device Number [id number] CERNER BJWCH Blood 03/05/2025 12:1 4 PM CDT 03/05/2025 12:14 PM CDT us Jae Dave MD LAB POCT ORDERABLES - DEVICE Fin al Result Performing Organization Address [facility] de Phone Number DAVID BJW[facility] [address] [address] [facility] [place] [address] * POCT glucose (03/05/2025 8:54 AM CDT) [facility] Signature Glucose, POC 146 70 - 199 mg/dL Comment: Interpretive Data Glucose is assumed to be non-fasting. Fasting Glucose reference ranges are: 0 - 150 years: 70 mg/dL - 99 mg/dL Current interpretive data was last revised on 2014. POC Device Number [id number] 1 DAVID BJWCH Blood 03/05/2025 8:54 AM CDT 03/05/2025 8:54 AM CDT Jae Dave MD LAB POCT ORDERABLES - DEVICE Fin al Result Performing Organization Address [facility] Phone Number DAVID BJW[facility] [address] [facility] [place] [address] * US LEONOR (03/05/2025 5:37 AM CDT) [...] signed by: Shabbir Jett M.D. Bianka WAYNE [facility] [place] PROCEDURES Final Result * eGFR (03/05/2025 [...] LAB BLOOD ORDERABLES Final Result DAVID PEOPLES [address] [address] [facility]. [place] [address] * (ABNORMAL) Differential, auto (03/05/2025 3:59 AM [...] on 2017. Eosinophil pct 8.0 % DAVID SWEENEY Comment: Interpretive Data Percent cell count reference ranges are not reported, since discordance with absolute values may lead to misinterpretation of CBC data. Current Interpretive Data was last revised on 2017. Basophil pct 0.5 % CERNER BJW[facility] Comment: Interpretive Data Percent cell count reference ranges are not reported, since discordance with absolute values may lead to misinterpretation of CBC data. Current Interpretive Data was last revised on 2017. Blood 03/05/2025 3:59 AM CDT 03/05/2025 4:03 AM CDT Rosa Camp MD LAB BLOOD ORDERABLES Final Result [facility] [id number] [facility]. [facility] [place] [address] * (ABNORMAL) CBC with auto differential (03/05/2025 3:59 AM CDT) WBC 3.76(L) 3.80 - 9.90 K/cumm Hgb 10.4(L) 13.0 - 17.5 g/dL [facility] Hct 32.9(L) 38.9 - 50.3 % [facility] Plt 118(L) 150 - 400 K/cumm [facility] W MPV 10.4 9.1 - 12.3 fL [facility] RBC 3.99(L) 4.30 - 5.80 M/cumm [facility] MCV 82.5 81.3 - 96.4 fL [facility] MCH 26.1(L) 27.1 - 33.3 pg [facility] W MCHC 31.6(L) 32.3 - 35.7 g/dL [facility] RDW CV 16.2(H) 11.1 - 14.9 % [facility] WCH RDW SD 49.4(H) 35.7 - 48.1 fL [facility] NRBC abs 0.00 0.00 - 0.01 K/cumm [facility] Blood 03/05/2025 3:59 AM CDT 03/05/2025 4:03 AM CDT Rosa Camp MD LAB BLOOD ORDERABLES Final Result DAVID [facility] [address] [facility]. [place] [address] * (ABNORMAL) Comprehensive metabolic panel (03/05/2025 3:59 AM CDT) Sodium 140 135 - 145 mmol/L Potassium, pl 3.9 3.3 - 4.9 mmol/L CERNER BJWCH Chloride 106 97 - 110 mmol/L CERNER [facility] CO2 24 22 - 32 mmol/L CERNER [facility] Anion gap 10 2 - 15 mmol/L [facility] BUN 14 6 - 25 mg/dL [facility]ERNER [facility] Creatinine [...] Result Performing Organization Address [facility] Co de Phone Number DAVID VIRGENCH [address] [facility] [address] * (ABNORMAL) POCT glucose (03/04/2025 8:41 PM CDT) Glucose, POC 299(H) 70 - 199 mg/dL Comment: Interpretive Data Glucose is assumed to be non-fasting. Fasting Glucose reference ranges are: 0 - 150 years: 70 mg/dL - 99 mg/dL Current interpretive data was last revised on 2014. POC Device Number [id number] 4 DAVID VIRGENWCH Blood 03/04/2025 8:41 PM CDT 03/04/2025 8:41 PM CDT Jae Dave MD LAB POCT ORDERABLES - DEVICE Fin al Result Performing Organization Address [facility] de Phone Number DAVID BJW[facility] [address] [facility] [place] [address] * POCT glucose (03/04/2025 4:42 PM CDT) Glucose, POC 191 70 - 199 mg/dL Comment: Interpretive Data Glucose is assumed to be non-fasting. Fasting Glucose reference ranges are: 0 - 150 years: 70 mg/dL - 99 mg/dL Current interpretive data was last revised on 2014. POC Device Number [id number] 4 DAVID BJWCH Blood 03/04/2025 4:42 PM CDT 03/04/2025 4:42 PM CDT Jae Dave MD LAB POCT ORDERABLES - DEVICE Fin al Result Performing Organization Address [facility] Co de Phone Number DAVID BJWCH [address] [facility]. [place] [address] * (ABNORMAL) POCT glucose (03/04/2025 12:22 PM CDT) Glucose, POC 216(H) 70 - 199 mg/dL Comment: Interpretive Data Glucose is assumed to be non-fasting. Fasting Glucose reference ranges are: 0 - 150 years: 70 mg/dL - 99 mg/dL Current interpretive data was last revised on 2014. POC Device Number [id number] DAVID PEOPLES Glucose comment 1 RN/MD Notified DAVID PEOPLES Blood 03/04/2025 12:2 2 PM CDT 03/04/2025 12:22 PM CDT Jae Dave MD LAB POCT ORDERABLES - DEVICE Fin al Result Performing Organization Address [facility] de Phone Number [facility] [address] [address] [facility] [place] [address] * POCT glucose (03/04/2025 7:57 AM CDT) Glucose, POC 150 70 - 199 mg/dL Comment: Interpretive Data Glucose is assumed to be non-fasting. Fasting Glucose reference ranges are: 0 - 150 years: 70 mg/dL - 99 mg/dL Current interpretive data was last revised on 2014. POC Device Number [id number] DAVID PEOPLES Blood 03/04/2025 7:57 AM CDT 03/04/2025 7:57 AM CDT us Jae Dave MD LAB POCT ORDERABLES - DEVICE Fin al Result Performing Organization Address [facility] Co de Phone Number [facility] [address] [address] [facility] [place] [address] * eGFR (03/04/2025 5:05 AM CDT) eGFR [...] Camp MD LAB BLOOD ORDERABLES Final Result [facility] [address] [facility] Department [place] [address] * (ABNORMAL) Differential, auto (03/04/2025 5:05 AM CDT) Pathologist [facility] Neutrophil abs 2.32 1.50 - 6.50 K/cumm Imm gran abs 0.01 0.00 - 0.10 K/cumm [facility]ER [facility] Lymphocyte abs 0.56(L) 0.80 - 3.30 K/cumm CERNER BJW Monocyte abs 0.50 0.20 - 0.80 K/cumm CERNER BJW[facility] Eosinophil abs 0.32 0.00 - 0.50 K/cumm CERNER [facility] Basophil abs 0.01 0.00 - 0.10 K/cumm CERNER BJW Neutrophil pct 62.3 % [facility] Comment: Interpretive Data Percent cell count reference ranges are not reported, since discordance with absolute values may lead to misinterpretation of CBC data. Current Interpretive Data was last revised on 2017. Imm gran pct 0.3 % [facility] Comment: Interpretive Data Percent cell count reference ranges are not reported, since discordance with absolute values may lead to misinterpretation of CBC data. Current Interpretive Data was last revised on 2017. Lymphocyte pct 15.1 % [facility] Comment: Interpretive Data Percent cell count reference ranges are not reported, since discordance with absolute values may lead to misinterpretation of CBC data. Current Interpretive Data was last revised on 2017. Monocyte pct 13.4 % [facility] Comment: Interpretive Data Percent cell count reference ranges are not reported, since discordance with absolute values may lead to misinterpretation of CBC data. Current Interpretive Data was last revised on 2017. Eosinophil pct 8.6 % [facility] Comment: Interpretive Data Percent cell count reference ranges are not reported, since discordance with absolute values may lead to misinterpretation of CBC data. Current Interpretive Data was last revised on 2017. Basophil pct 0.3 % [facility] Comment: Interpretive Data Percent cell count reference ranges are not reported, since discordance with absolute values may lead to misinterpretation of CBC data. Current Interpretive Data was last revised on 2017. Blood 03/04/2025 5:05 AM CDT 03/04/2025 5:14 AM CDT Rosa Camp MD LAB BLOOD ORDERABLES Final Result [facility]ID [facility] [address] [facility] [place] [address] * (ABNORMAL) CBC with auto differential (03/04/2025 5:05 AM CDT) WBC 3.72(L) 3.80 - 9.90 K/cumm Hgb 10.5(L) 13.0 - 17.5 g/dL DAVID W Hct 34.4(L) 38.9 - 50.3 % DAVID [facility] Plt 113(L) 150 - 400 K/cumm [facility] MPV 10.7 9.1 - 12.3 fL [facility] RBC 4.11(L) 4.30 - 5.80 M/cumm [facility] MCV 83.7 81.3 - 96.4 fL [facility] MCH 25.5(L) 27.1 - 33.3 pg CERNER PARAMW MCHC 30.5(L) 32.3 - 35.7 g/dL [facility] RDW CV 16.7(H) 11.1 - 14.9 % [facility] RDW SD 51.2(H) 35.7 - 48.1 fL [facility] NRBC abs 0.00 0.00 - 0.01 K/cumm [facility] Blood 03/04/2025 5:05 AM CDT 03/04/2025 5:14 AM CDT Rosa Camp MD LAB BLOOD ORDERABLES Final Result [facility] [address] [facility] [place] [address] * (ABNORMAL) Comprehensive metabolic panel (03/04/2025 5:05 AM CDT) Sodium 139 135 - 145 mmol/L Potassium, pl 4.0 3.3 - 4.9 mmol/L [facility] Chloride 105 97 - 110 mmol/L [facility] CO2 26 22 - 32 mmol/L [facility] Anion gap 8 2 - 15 mmol/L [facility] BUN 17 6 - 25 mg/dL [facility] Creatinine 0.71(L) 0.80 - 1.30 mg/dL [facility] Glucose 149 70 - 199 mg/dL [facility] Comment: Interpretive Data Fasting glucose [...] Result Performing Organization Address [facility] Co de Phone Number [facility] [address] [facility] [employer] [place], [place] [address] * (ABNORMAL) POCT glucose (03/03/2025 8:51 PM CDT) [facility] Glucose, POC 211(H) 70 - 199 mg/dL Comment: Interpretive Data Glucose is assumed to be non-fasting. Fasting Glucose reference ranges are: 0 - 150 years: 70 mg/dL - 99 mg/dL Current interpretive data was last revised on 2014. POC Device Number [id number] 4 CERNER W Blood 03/03/2025 8:5 1 PM CDT 03/03/2025 8:51 PM CDT Jae Dave MD LAB POCT ORDERABLES - DEVICE Fin al Result Performing Organization Address [facility] Co de Phone Number [facility] BJ[facility] [address] [facility] [place] [address] * POCT glucose (03/03/2025 5:12 PM CDT) Pathologist [facility] Glucose, POC 168 70 - 199 mg/dL Comment: Interpretive Data Glucose is assumed to be non-fasting. Fasting Glucose reference ranges are: 0 - 150 years: 70 mg/dL - 99 mg/dL Current interpretive data was last revised on 2014. POC Device Number [id number] DAVID PEOPLES Blood 03/03/2025 5:12 PM CDT 03/03/2025 5:12 PM CDT Jae Dave MD LAB POCT ORDERABLES - DEVICE Fin al Result Performing Organization Address [facility]/ZIP Co de Phone Number [facility] [address] [place] [address] * Histoplasma Antigen Urine (03/03/2025 3:18 PM CDT) [facility] Histo/Blasto Ag Value Not Detected ng/mL [facility] Comment: ADDITIONAL INFORMATION This test was developed and its performance characteristics determined by [facility] in a manner consistent with CLIA requirements. This test has not been cleared or approved by the U.S. Food and Drug Administration. Test Performed by: [facility] [place] [address] [employer] Operator: Ana Plascencia Ph.D.; CLIA# [id number] Histo/Blasto Ag Result Not Detected Not Detected [...] Result Performing Organization Address [facility]/ZIP Co de Phone Number [facility] Payment[facility] [address] [place] [address] [place] [facility] * Q fever ab w rflx to immunofluorescence Blood (03/03/2025 3:04 PM CDT) Pathologist [facility] Q fever ab scrn w titer rflx ser Negative Negative [facility] Comment: No antibodies to Q Fever (Coxiella burnetii) detected. Repeat testing on a new sample collected in 2-3 weeks if acute Q Fever is suspected. ADDITIONAL INFORMATION This test was developed and its performance characteristics determined by [facility] in a manner consistent with CLIA requirements. This test has not been cleared or approved by the U.S. Food and Drug Administration. Test Performed by: [place] [address] [employer] Operator: Ana Plascencia Ph.D.; CLIA# [id number] Blood 03/03/2025 3:04 PM CDT 03/03/2025 3:22 PM CDT Bianka WAYNE LAB MICROBIOLOGY - GENERAL ORDERABLES Final Result DAVID [facility] [address] [place] [address] [facility] * (ABNORMAL) Histoplasma Antibody Blood (03/03/2025 3:04 PM CDT) [facility] Histoplasma Ab, yeast CF 1:16(A) Negative [place] [facility] Histoplasma Ab, Immunodiffusion Negative Negative DAVID [facility]JW[facility] Comment: Test Performed by: [place] [address] [employer]orail Car Operator: Ana Plascencia Ph.D.; CLIA# [id number] Blood 03/03/2025 3:04 PM CDT 03/03/2025 3:22 PM CDT Bianka WAYNE LAB MICROBIOLOGY - GENERAL ORDERABLES Final Result DAVID [facility] [address] [address] [facility]. [place] [address] [place] [facility] * Cytomegalovirus (CMV) DNA PCR, quantitative Blood (03/03/2025 3:04 PM CDT) [facility] CMV DNA Not Detected [facility] Comment: Interpretive Data: The quantifiable range of this assay is 34 IUnits/mL to 10,000,000 IUnits/mL (1.53 log IUnits/mL to 7.0 log IUnits/mL). Testing was performed by the BRENNA 6800 CMV Test ([employer] Testing performed at [facility]. Current interpretive data was last revised on 2021. Testing performed by: [facility], [address] [place]., [address] Blood 03/03/2025 3:04 PM CDT 03/03/2025 7:06 PM CDT Bianka WAYNE LAB MICROBIOLOGY - GENERAL ORDERABLES Final Result Performing Organization Address City/[facility] Co de Phone Number DAVID BJWCH [address] [address] [facility]. [place] [address] [facility] * Hepatitis panel, acute Blood (03/03/2025 3:04 PM CDT) Pathologist [facility] Hep A IgM Nonreactive Nonreactive Comment: Interpretive Data: If Hep A IgM Ab is reported as Equivocal, a new sample should be drawn in two weeks for testing. Current interpretive data was last revised on 19. Testing performed by: [facility], [address] [place] [address]., [address] Hep B core IgM Nonreactive Nonreactive DAVID [facility] Comment: Interpretive Data If HepB Core IgM Ab is reported as Equivocal, a new sample should be drawn in two weeks for testing. Current interpretive data was last revised on 19. Testing performed by: [facility], [address] [place] [address]., [address] Hep C Ab Nonreactive Nonreactive DAVID [facility] Comment: Interpretive Data Nonreactive: Antibodies to HCV [...] last revised on 2019. Testing performed by: [facility], [address] [place] [address]., [address] HepBsAg Nonreactive Nonreactive DAVID PEOPLES Comment:Testing performed by : [facility], [address] [place] [address]., [address] Blood 03/03/2025 3:04 PM CDT 03/03/2025 5:07 PM CDT us Bianka WAYNE LAB MICROBIOLOGY - GENERAL ORDERABLES Final Result DAVID [facility]OP[facility] [address] [facility] Department [place] [address] * Blood culture Blood (03/03/2025 3:04 PM CDT) Report Final Report: No growth Comment:Testing performed by : [facility], [address] [place] [address]., [id number] Blood 03/03/2025 3:04 PM CDT 03/03/2025 4:44 PM CDT Narrative DAVID PEOPLES - 03/09/2025 7:00 AM CDT Collection->Peripheral Interpretive [...] organism identification may be performed using the You.i Blood Culture Identification panel. This assay detects microbial DNA in a blood culture broth. This assay has been cleared by the [place] Food and Drug Administration and its performance characteristics have been verified by the [facility]. Interpretive data was last revised on August 03, 2022. Bianka WAYNE LAB MICROBIOLOGY - GENERAL ORDERABLES Final Result Performing Organization Address City/[facility] Co de Phone Number DAVID BJWCH [address] [place] [employer]. [facility] [place] [address] * Cindy-Zaman Virus (EBV) DNA Quantitative Blood (03/03/2025 3:03 PM CDT) [facility] EBV DNA Result Not Detected [facility] Comment: Interpretive Data The quantifiable range of this assay is 35 IUnits/mL to 100,000,000 IUnits/mL (1.54 log IUnits/mL to 8.0 log IUnits/mL). Testing was performed by the BRENNA 6800 EBV Test ([employer] Testing performed at [facility]. Current interpretive data was last revised on 2022. Testing performed by: [facility], [address] [place] [address]., [address] Blood 03/03/2025 3:03 PM CDT 03/03/2025 7:05 PM CDT Bianka WAYNE [facility] MICROBIOLOGY - GENERAL ORDERABLES Final Result Performing Organization Address [facility] Co de Phone Number DAVID [facility] [address] [facility] [place] [address] [facility] * Ehrlichia and Anaplasma PCR Blood (03/03/2025 3:03 PM CDT) [facility] Ehrlichia species DNA Not Detected Not Detected [facility] Comment:Testing performed by : [facility], [address] [place] [address]., [address] Anaplasma Phagocytophilum DNA Not Detected Not Detected DAVID VIRGENW[facility] Comment: This assay tests for the presence of Anaplasma phagocytophilum, Ehrlichia chaffeensis, Ehrlichia ewingii and Ehrlichia canis. This test is laboratory developed and its performance characteristics were determined by the performing laboratory in a manner consistent with CLIA requirements. This test has not been cleared or approved by the U.S. Food and Drug Administration. Testing performed by: [facility], [address] [place]., [address] Blood 03/03/2025 3:03 PM CDT 03/03/2025 7:05 PM CDT Bianka WAYNE [facility] MICROBIOLOGY - GENERAL ORDERABLES Final Result Performing Organization Address City/[facility]/ZIP Co de Phone Number [facility] [address] [employer] [facility] [place] [address] BJ * Blastomyces antibody, EIA, serum Blood (03/03/2025 3:00 PM CDT) Pathologist [facility] Blastomyces Antibody Negative Negative [place] [facility] Comment: A single negative result does not exclude the diagnosis of blastomycosis. Repeat testing on a new sample in 7-14 days if clinically indicated. Test Performed by: [place] [id number] [place] [address] [employer] Operator: Ana Plascencia Ph.D.; CLIA# [id number] Blood 03/03/2025 3:00 PM CDT 03/03/2025 3:22 PM CDT Bianka WAYNE LAB MICROBIOLOGY - GENERAL ORDERABLES Final Result [facility] [address] [address] [facility] [place] [address] [place] [facility] * (ABNORMAL) Rickettsia rickettsii antibodies Blood (03/03/2025 3:00 PM CDT) Pathologist [facility] Spotted Fever Group Antibody, IgG 1:64(A) <1:64 [place] [facility] Comment: Single IgG serum endpoint [...] Fever Group Antibody, IgM <1:64 <1:64 DAVID PEOPLES Comment: No antibody detected. Test Performed by: [facility] [address] [place] [address] [employer] Car Operator: Ana Plascencia Ph.D.; CLIA# [id number] Blood 03/03/2025 3:00 PM CDT 03/03/2025 3:57 PM CDT Bianka WAYNE LAB MICROBIOLOGY - GENERAL ORDERABLES Final Result Performing Organization Address [facility] Co de Phone Number [facility] [address] [address] [employer] [employer] [place], [place] [id number] [place] [facility] * HIV 1/2 Antibody plus p24 Antigen Blood (03/03/2025 3:00 PM CDT) [facility] HIV 1/2 ab + p24 ag Nonreactive Nonreactive Comment: Nonreactive for HIV-1 antigen and HIV-1/HIV-2 antibodies. No laboratory evidence of HIV infection. If acute HIV infection is suspected, consider testing for HIV-1 RNA. Testing performed by: [facility], [address] [place] [address], [place]., [address] Blood 03/03/2025 3:00 PM CDT 03/03/2025 5:07 PM CDT Bianka WAYNE LAB MICROBIOLOGY - GENERAL ORDERABLES Final Result Performing Organization Address City/[facility]/ZIP Co de Phone Number [facility] [address] [place] [address] * (ABNORMAL) Cindy-Zaman virus (EBV) antibody panel Blood (03/03/2025 3:00 PM CDT) EBV nuclear Ab Positive(A) Negative Comment: Indicates the presence of detectable IgG antibody to EBV Nuclear Antigen. Testing performed by: [facility], [address] [place]., [address] EBV VCA IgG Positive(A) Negative DAVID PEOPLES Comment: Indicates the presence of antibody; 90% of the adult population will have been infected with EBV sometime in the past. Testing performed by: [facility], [address] [place]., [address] EBV VCA IgM Negative Negative DAVID PEOPLES Comment: No detectable IgM antibody to EBV-VCA. A negative result indicates no current infection with EBV. If clinical suspicion of acute EBV infection is present, testing should be repeated after one week. Testing performed by: [facility], [address] [place] [address]., [address] EBV interp Past Infection DAVID PEOPLES Comment:Testing performed by : [facility], [address] [place]., [address] Blood 03/03/2025 3:00 PM CDT 03/03/2025 6:55 PM CDT us Bianka WAYNE LAB MICROBIOLOGY - GENERAL ORDERABLES Final Result Performing Organization Address City/State/[facility] Co de Phone Number [facility] [address] [facility] [place] [address] * Bartonella antibody panel Blood (03/03/2025 3:00 PM CDT) B Henselae, IgG <1:128 <1:128 titer [place] [facility] B Henselae, IgM <1:20 <1:20 titer DAVID PEOPLES B. Orellana, IgG <1:128 <1:128 titer DAVID PEOPLES B. Orellana, IgM <1:20 <1:20 titer DAVID PEOPLES Comment: ADDITIONAL INFORMATION This test was developed and its performance characteristics determined by [facility] in a manner consistent with CLIA requirements. This test has not been cleared or approved by the U.S. Food and Drug Administration. Test Performed by: [facility] Laboratories - [facility] [address] [place] [address] [employer] Car Operator: Ana Plascencia Ph.D.; CLIA# [id number] Blood 03/03/2025 3:00 PM CDT 03/03/2025 3:22 PM CDT Bianka WAYNE LAB MICROBIOLOGY - GENERAL ORDERABLES Final Result Performing Organization Address [facility] Co de Phone Number DAVID BJW[facility] [address] [employer] [place] [address] [facility] * Cryptococcal Antigen, Serum Blood (03/03/2025 3:00 PM CDT) Cryptococcus ag, Serum Negative Negative Comment:Testing performed by : [facility], [address] [place] [address]., [address] Blood 03/03/2025 3:00 PM CDT 03/03/2025 5:44 PM CDT Bianka WAYNE LAB MICROBIOLOGY - GENERAL ORDERABLES Final Result Performing Organization Address City/[facility] Co de Phone Number [facility] [address] [employer] [facility] [place] [address] * Blood culture Blood (03/03/2025 3:00 PM CDT) Report Final Report: No growth Comment:Testing performed by : [facility], [address] [place] [address]., [address] Blood 03/03/2025 3:00 PM CDT 03/03/2025 4:44 PM CDT Narrative DAVID BJAnnaCH - 03/09/2025 7:00 AM CDT Collection->Peripheral Interpretive [...] organism identification may be performed using the You.i Blood Culture Identification panel. This assay detects microbial DNA in a blood culture broth. This assay has been cleared by the [place] Food and Drug Administration and its performance characteristics have been verified by the [facility]. Interpretive data was last revised on August 03, 2022. us Bianka WAYNE LAB MICROBIOLOGY - GENERAL ORDERABLES Final Result [facility] [address] [facility] Department [place] [address] * TRANSTHORACIC ECHO (TTE) COMPLETE W DOPPLER/CF W CONTRAST (03/03/2025 2:21 PM CDT) EF Mod BP 70 % CONS SCIMAGE Anatomical Region Laterality Modality Ultrasound 03/03/2025 1:38 PM CDT Narrative 03/03/2025 3:[address] [facility] [place] [address] [place] [address] Transthoracic Echocardiographic Report Patient Name: RAH HENSON M : 1955 (69y 11m) Gender: M Study Date: 03/03/2025 01:38:47 PM Ht(Inch): 69 Wt(Lb): 218.03 BSA: 2.19 Cushion Padder: RAVEN Location: [id number] Order Provider: BIANKA MCLAUGHLIN Heart Rate: 60 [...] valve leaflets. Mild-moderate aortic valve regurgitation. 5. Qjal-xq-doui views of AV, MV & TV and of RV device without suspicion of vegetation. COMPARISONS: On jsmk-kw-vtxk comparision with prior TTE on 08/15/24, the [...] Note De Khushi Brennan MD - 03/03/[address] [facility] [place] [address] [place] [address] Transthoracic Echocardiographic Report Patient Name: RAH HENSON M : 1955 (69y 11m) Gender: M Study Date: 03/03/2025 01:38:47 PM Ht(Inch): 69 Wt(Lb): 218.03 BSA: 2.19 Cushion Padder: RAVEN Location: [id number] Order Provider: BIANKA MCLAUGHLIN Heart Rate: 60 [...] aortic valve leaflets. Mild-moderate aortic valveregurgitation. 5. Rdqe-ah-dgub views of AV, MV & TV and of RV device without suspicion ofvegetation. COMPARISONS: On aeby-xh-lust comparision with prior TTE on 08/15/24, the [...] [ 16.00 - 34.00 ] MV Decel [id number] msec [ 104.00 - 258.00 ] RV [...] signed by: Jim Hdz M.D. Bianka WAYNE [facility] PROCEDURES Final Result * POCT glucose (03/03/2025 12:01 PM CDT) Glucose, POC 179 70 - 199 mg/dL Comment: Interpretive Data Glucose is assumed to be non-fasting. Fasting Glucose reference ranges are: 0 - 150 years: 70 mg/dL - 99 mg/dL Current interpretive data was last revised on 2014. POC Device Number [id number] DAVID [facility] Blood 03/03/2025 12:0 1 PM CDT 03/03/2025 12:01 PM CDT Jae Dave MD LAB POCT ORDERABLES - DEVICE Fin al Result DAVID VIRGEN[facility] [address] [facility] [place] [address] * US Vein Duplex Lower Extremity Bilateral [...] Electronically signed by: Shabbir Jett M.D. us Bianka WAYNE IMG US PROCEDURES Final Result * POCT glucose (03/03/2025 8:58 AM CDT) Glucose, POC 124 70 - 199 mg/dL Comment: Interpretive Data Glucose is assumed to be non-fasting. Fasting Glucose reference ranges are: 0 - 150 years: 70 mg/dL - 99 mg/dL Current interpretive data was last revised on 2014. POC Device Number [id number] DAVID VIRGEN[facility] Blood 03/03/2025 8:58 AM CDT 03/03/2025 8:58 AM CDT us Jae Dave MD LAB POCT ORDERABLES - DEVICE Fin al Result DAVID [facility] [address] [facility]. [place] [address] * eGFR (03/03/2025 2:50 AM CDT) eGFR [...] Inclusion of Race in Diagnosing Kidney Disease, TERENCEN 2020). The CKD-EPI equation should not be used for patients with unstable renal function and has not been validated in children and those over 70. Current interpretive data was last reviewed 2021. Blood 03/03/2025 2:50 AM CDT 03/03/2025 2:54 AM CDT Rosa Camp MD LAB BLOOD ORDERABLES Final Result [facility] [address] [facility]. [place] [address] * (ABNORMAL) Differential, auto (03/03/2025 2:50 AM CDT) Neutrophil abs 4.71 1.50 - 6.50 K/cumm Imm gran abs 0.01 0.00 - 0.10 K/cumm CERNER [facility] Lymphocyte abs 0.42(L) 0.80 - 3.30 K/cumm CERNER [facility] Monocyte abs 0.69 0.20 - 0.80 K/cumm CERNER [facility] Eosinophil abs 0.18 0.00 - 0.50 K/cumm CERNER [facility] Basophil abs 0.02 0.00 - 0.10 K/cumm CERNER [facility] Neutrophil pct 78.1 % CERNER [facility] Comment: Interpretive Data Percent cell count reference ranges are not reported, since discordance with absolute values may lead to misinterpretation of CBC data. Current Interpretive Data was last revised on 2017. Imm gran pct 0.2 % CERNER [facility] Comment: Interpretive Data Percent cell count reference ranges are not reported, since discordance with absolute values may lead to misinterpretation of CBC data. Current Interpretive Data was last revised on 2017. Lymphocyte pct 7.0 % CERNER [facility] Comment: Interpretive Data Percent cell count reference ranges are not reported, since discordance with absolute values may lead to misinterpretation of CBC data. Current Interpretive Data was last revised on 2017. Monocyte pct 11.4 % CERNER [facility] Comment: Interpretive Data Percent cell count reference ranges are not reported, since discordance with absolute values may lead to misinterpretation of CBC data. Current Interpretive Data was last revised on 2017. Eosinophil pct 3.0 % DAVID [facility] Comment: Interpretive Data Percent cell count reference ranges are not reported, since discordance with absolute values may lead to misinterpretation of CBC data. Current Interpretive Data was last revised on 2017. Basophil pct 0.3 % DAVID [facility] Comment: Interpretive Data Percent cell count reference ranges are not reported, since discordance with absolute values may lead to misinterpretation of CBC data. Current Interpretive Data was last revised on 2017. Blood 03/03/2025 2:50 AM CDT 03/03/2025 2:54 AM CDT Rosa Camp MD LAB BLOOD ORDERABLES Final Result [facility] [address] [facility] [place] [address] * (ABNORMAL) CBC with auto differential (03/03/2025 2:50 AM CDT) WBC 6.03 3.80 - 9.90 K/cumm Hgb 11.7(L) 13.0 - 17.5 g/dL [facility] Hct 36.5(L) 38.9 - 50.3 % [facility] Plt 114(L) 150 - 400 K/cumm [facility] MPV 10.8 9.1 - 12.3 fL [facility] RBC 4.48 4.30 - 5.80 M/cumm [facility] MCV 81.5 81.3 - 96.4 fL [facility] MCH 26.1(L) 27.1 - 33.3 pg [facility] MCHC 32.1(L) 32.3 - 35.7 g/dL [facility] RDW CV 16.6(H) 11.1 - 14.9 % [facility] RDW SD 49.4(H) 35.7 - 48.1 fL CERNER [facility] NRBC abs 0.00 0.00 - 0.01 K/cumm [facility] Blood 03/03/2025 2:50 AM CDT 03/03/2025 2:54 AM CDT Rosa Camp MD LAB BLOOD ORDERABLES Final Result DAVID PEOPLES [address] [facility] [place] [address] * (ABNORMAL) Comprehensive metabolic panel (03/03/2025 2:50 AM CDT) Pathologist [facility] Sodium 137 135 - 145 mmol/L [...] Result Performing Organization Address [facility] Co de Phone Number [facility] BJ[facility] [address] [facility] [place] [address] * POCT glucose (03/02/2025 8:51 PM CDT) Glucose, POC 157 70 - 199 mg/dL Comment: Interpretive Data Glucose is assumed to be non-fasting. Fasting Glucose reference ranges are: 0 - 150 years: 70 mg/dL - 99 mg/dL Current interpretive data was last revised on 2014. POC Device Number [id number] CERNER BJW[facility] Blood 03/02/2025 8:51 PM CDT 03/02/2025 8:51 PM CDT Lydia Franco MD LAB POCT ORDERABLES - DE VICE Final Result Performing Organization Address [facility] de Phone Number [facility] BJWCH [address] [facility] [place] [address] * POCT glucose (03/02/2025 7:12 PM CDT) Glucose, POC 181 70 - 199 mg/dL Comment: Interpretive Data Glucose is assumed to be non-fasting. Fasting Glucose reference ranges are: 0 - 150 years: 70 mg/dL - 99 mg/dL Current interpretive data was last revised on 2014. POC Device Number [id number] CERNER [facility] Blood 03/02/2025 7:12 PM CDT 03/02/2025 7:12 PM CDT Lydia Franco MD LAB POCT ORDERABLES - DE VICE Final Result Performing Organization Address [facility] Phone Number [facility] [address] [facility]. [facility] [place] [address] * (ABNORMAL) POCT glucose (03/02/2025 5:08 PM CDT) Glucose, POC 200(H) 70 - 199 mg/dL Comment: Interpretive Data Glucose is assumed to be non-fasting. Fasting Glucose reference ranges are: 0 - 150 years: 70 mg/dL - 99 mg/dL Current interpretive data was last revised on 2014. POC Device Number [id number] DAVID PEOPLES Blood 03/02/2025 5:08 PM CDT 03/02/2025 5:08 PM CDT Lydia Franco MD LAB POCT ORDERABLES - DE VICE Final Result Performing Organization Address [facility] Phone Number DAVID VIRGENW[facility] [address] [facility]. [facility] [place] [address] * (ABNORMAL) POCT glucose (03/02/2025 11:21 AM CDT) Glucose, POC 208(H) 70 - 199 mg/dL Comment: Interpretive Data Glucose is assumed to be non-fasting. Fasting Glucose reference ranges are: 0 - 150 years: 70 mg/dL - 99 mg/dL Current interpretive data was last revised on 2014. POC Device Number [id number] DAVID VIRGENW[facility] Blood 03/02/2025 11:2 1 AM CDT 03/02/2025 11:21 AM CDT Lydia Franco MD LAB POCT ORDERABLES - DE VICE Final Result Performing Organization Address [facility] Co de Phone Number DAVID VIRGEN[facility] [address] [facility]. [facility] [place] [address] * POCT glucose (03/02/2025 7:40 AM CDT) Glucose, POC 111 70 - 199 mg/dL Comment: Interpretive Data Glucose is assumed to be non-fasting. Fasting Glucose reference ranges are: 0 - 150 years: 70 mg/dL - 99 mg/dL Current interpretive data was last revised on 2014. POC Device Number [id number] DAVID PEOPLES Blood 03/02/2025 7:40 AM CDT 03/02/2025 7:40 AM CDT us Lydia Franco MD LAB POCT ORDERABLES - DE VICE Final Result DAVID [facility] [address] [facility]. [place] [address] * eGFR (03/02/2025 3:38 AM CDT) eGFR [...] LAB BLOOD ORDERABLES Final Result DAVID [facility] [address] [facility]. [place] [address] * (ABNORMAL) Differential, auto (03/02/2025 3:38 AM CDT) Neutrophil abs 2.09 1.50 - 6.50 K/cumm Imm gran abs 0.01 0.00 - 0.10 K/cumm CERNER [facility] Lymphocyte abs 0.49(L) 0.80 - 3.30 K/cumm CERNER [facility] Monocyte abs 0.61 0.20 - 0.80 K/cumm CERNER [facility] Eosinophil abs 0.26 0.00 - 0.50 K/cumm C[facility]ER [facility] Basophil abs 0.02 0.00 - 0.10 K/cumm CERNER [facility] Neutrophil pct 60.0 % CERNER PARAM[facility] Comment: Interpretive Data Percent cell count reference ranges are not reported, since discordance with absolute values may lead to misinterpretation of CBC data. Current Interpretive Data was last revised on 2017. Imm gran pct 0.3 % [facility] Comment: Interpretive Data Percent cell count reference ranges are not reported, since discordance with absolute values may lead to misinterpretation of CBC data. Current Interpretive Data was last revised on 2017. Lymphocyte pct 14.1 % DAVID VIRGEN[facility] Comment: Interpretive Data Percent cell count reference ranges are not reported, since discordance with absolute values may lead to misinterpretation of CBC data. Current Interpretive Data was last revised on 2017. Monocyte pct 17.5 % [facility] Comment: Interpretive Data Percent cell count reference ranges are not reported, since discordance with absolute values may lead to misinterpretation of CBC data. Current Interpretive Data was last revised on 2017. Eosinophil pct 7.5 % CERNER PARAM[facility] Comment: Interpretive Data Percent cell count reference ranges are not reported, since discordance with absolute values may lead to misinterpretation of CBC data. Current Interpretive Data was last revised on 2017. Basophil pct 0.6 % CERNER PAR[facility] Comment: Interpretive Data Percent cell count reference ranges are not reported, since discordance with absolute values may lead to misinterpretation of CBC data. Current Interpretive Data was last revised on 2017. Blood 03/02/2025 3:38 AM CDT 03/02/2025 4:12 AM CDT Rosa Camp MD LAB BLOOD ORDERABLES Final Result DAVID [facility] [id number] [facility] [place] [address] * (ABNORMAL) CBC with auto differential (03/02/2025 3:38 AM CDT) WBC 3.48(L) 3.80 - 9.90 K/cumm Hgb 11.4(L) 13.0 - 17.5 g/dL [facility] Hct 36.6(L) 38.9 - 50.3 % [facility] Plt 106(L) 150 - 400 K/cumm [facility] MPV 10.4 9.1 - 12.3 fL [facility] RBC 4.41 4.30 - 5.80 M/cumm [facility] MCV 83.0 81.3 - 96.4 fL [facility]CH 25.9(L) 27.1 - 33.3 pg [facility] MCHC 31.1(L) 32.3 - 35.7 g/dL [facility] RDW CV 16.7(H) 11.1 - 14.9 % [facility] R[facility] SD 50.8(H) 35.7 - 48.1 fL [facility] NRBC abs 0.00 0.00 - 0.01 K/cumm [facility] Blood 03/02/2025 3:38 AM CDT 03/02/2025 4:12 AM CDT Rosa Camp MD LAB BLOOD ORDERABLES Final Result DAVID PEOPLES [address] [place] [address] * (ABNORMAL) Comprehensive metabolic panel (03/02/2025 3:38 AM CDT) Sodium 138 135 - 145 mmol/L Potassium, pl 3.8 3.3 - 4.9 mmol/L [facility] Chloride 102 97 - 110 mmol/L [facility] CO2 27 22 - 32 mmol/L [facility] Anion gap 9 2 - 15 mmol/L [facility] BUN 18 6 - 25 mg/dL [facility] Creatinine 0.80 0.80 - 1.30 mg/dL [facility] Glucose 128 70 - 199 mg/dL [facility] Comment: [...] Result Performing Organization Address [facility] de Phone Number DAVID V[facility]GEN[facility] [address] [facility]. [facility] [place] [address] * (ABNORMAL) POCT glucose (03/01/2025 9:04 PM CDT) Glucose, POC 241(H) 70 - 199 mg/dL Comment: Interpretive Data Glucose is assumed to be non-fasting. Fasting Glucose reference ranges are: 0 - 150 years: 70 mg/dL - 99 mg/dL Current interpretive data was last revised on 2014. POC Device Number [id number] [facility] Blood 03/01/2025 9:04 PM CDT 03/01/2025 9:04 PM CDT us Lydia Franco MD LAB POCT ORDERABLES - DE VICE Final Result Performing Organization Address [facility] Phone Number [facility] [address] [facility] [place] [address] * POCT glucose (03/01/2025 5:50 PM CDT) Glucose, POC 87 70 - 199 mg/dL Comment: Interpretive Data Glucose is assumed to be non-fasting. Fasting Glucose reference ranges are: 0 - 150 years: 70 mg/dL - 99 mg/dL Current interpretive data was last revised on 2014. POC Device Number [id number] 1 DAVID [facility] Blood 03/01/2025 5:50 PM CDT 03/01/2025 5:50 PM CDT us Lydia Franco MD LAB POCT ORDERABLES - DE VICE Final Result Performing Organization Address [facility] Phone Number [facility] [address] [facility]. [facility] [place] [address] * (ABNORMAL) POCT glucose (03/01/2025 11:36 AM CDT) [facility] Glucose, POC 204(H) 70 - 199 mg/dL Comment: Interpretive Data Glucose is assumed to be non-fasting. Fasting Glucose reference ranges are: 0 - 150 years: 70 mg/dL - 99 mg/dL Current interpretive data was last revised on 2014. POC Device Number [id number] DAVID PEOPLES Blood 03/01/2025 11:3 6 AM CDT 03/01/2025 11:36 AM CDT us Lydia Franco MD LAB POCT ORDERABLES - DE VICE Final Result DAVID PEOPLES [address] [facility] [place] [address] * C. difficile testing Stool (03/01/2025 10:10 AM CDT) [facility] GDH Result Positive Negative Comment:Testing performed by : [facility], [address] [place] [address]., [id number] Toxin Result Negative Negative DAVID PEOPLES Comment:Testing performed by : [facility], [address] [place] [address]., [id number] C. diff result Negative, free toxin. Negative, free toxin DAVID PEOPLES Comment:Testing performed by : [facility], [address] [place] [address]., [address] C. diff interp GDH+/toxin- results almost never represent true C. difficile infection (CDI). Results may represent colonization with C. difficile without CDI, detection of a bacteria other than toxigenic C. difficile, or a false negative toxin assay. If there is a high index of suspicion for CDI, additional testing by PCR is available upon request. DAVID PEOPLES Comment:Testing performed by : [facility], [address] [place] [address]., [id number] Stool 03/01/2025 10:1 0 AM CDT 03/01/2025 12:12 PM CDT Rosa Camp MD LAB MICROBIOLOGY - GENERAL ORDERABLES Final Result DAVID PEOPLES [address] [place] [address] * Norovirus PCR Stool (03/01/2025 10:10 AM CDT) Norovirus GI RNA Not Detected Not Detected [facility] Comment:Testing performed by : [facility], [address] [place] [address]., [id number] Norovirus GII RNA Not Detected Not Detected DAVID PEOPLES Comment: Interpretive data: Testing performed at the [facility] using the [employer] Xpert Norovirus Assay. This assay uses nucleic [...] last revised on 2024. Testing performed by: [facility], [address] [place]., [address] Stool 03/01/2025 10:1 0 AM CDT 03/01/2025 2:08 PM CDT Rosa Camp MD LAB MICROBIOLOGY - GENERAL ORDERABLES Final Result DAVID [facility] [address] [place] [address] [facility] * (ABNORMAL) MRSA Only (Staphylococcus aureus) PCR Nasal (03/01/2025 10:10 AM CDT) PCR Scrn, Methicillin resistant Staphylococcus aureus (MRSA) Detected( C) Not Detected Comment: Critical result called to and read back by ALOK GARG (DOCUMENT MANAGER) on 03/01/2025 14:59:19 CDT to [id number]. Interpretive Data Testing performed using Nucleic Acid Amplification with the UrbanSitter Xpert MRSA NxG Assay. This assay detects target DNA from mecA, mecC and the SCCmec insertion site of Staphylococcus aureus using Real-Time PCR and has been cleared by the FDA. Performance characteristics have been verified by the [facility]. Current Interpretive Data was last revised on 2023 Testing performed by: [facility], [address] [place] [address]., [address] Nasal 03/01/2025 10:1 0 AM CDT 03/01/2025 11:03 AM CDT us Lydia Franco MD LAB MICROBIOLOGY - [facility] AL ORDERABLES Final Result DAVID PEOPLES [address] [facility]. [facility] [place] [address] * Stool culture Stool Rectum (03/01/2025 10:10 AM CDT) Direct Specimen Exam Shiga Toxin Testing: Negative for: Shigatoxin of enterohemorrhagic E.coli. Comment:Testing performed by : [facility], [address] [place] [address]., [id number] Report Final Report: No Salmonella, Shigella, Aeromonas, Plesiomonas, Yersinia, Campylobacter, or E.coli O157:H7 isolated DAVID PEOPLES Comment:Testing performed by : [facility], [address] [place] [address]., [address] Stool (Rectum) 03/01/2025 10 :10 AM CDT 03/01/2025 12:12 PM CDT Narrative DAVID PEOPLES - 03/04/2025 2:00 PM CDT This specimen is screened for the presence of Aeromonas, Campylobacter, E.coli-0157:H7, Plesiomonas, Salmonella, Shigella, Shiga Toxin producing E. coli, and Yersinia. Rosa Camp MD LAB MICROBIOLOGY - GENERAL ORDERABLES Final Result Performing Organization Address [facility] Phone Number [facility] [address] [facility] [place] [address] * POCT glucose (03/01/2025 8:13 AM CDT) Glucose, POC 78 70 - 199 mg/dL Comment: Interpretive Data Glucose is assumed to be non-fasting. Fasting Glucose reference ranges are: 0 - 150 years: 70 mg/dL - 99 mg/dL Current interpretive data was last revised on 2014. POC Device Number [id number] DAVID PEOPLES Blood 03/01/2025 8:13 AM CDT 03/01/2025 8:13 AM CDT Lydia Franco MD LAB POCT ORDERABLES - DE VICE Final Result Performing Organization Address [facility] Phone Number [facility] [address] [place] [address] * POCT glucose (03/01/2025 7:41 AM CDT) Glucose, POC 83 70 - 199 mg/dL Comment: Interpretive Data Glucose is assumed to be non-fasting. Fasting Glucose reference ranges are: 0 - 150 years: 70 mg/dL - 99 mg/dL Current interpretive data was last revised on 2014. POC Device Number [id number] 1 DAVID VIRGENWROSSANA Blood 03/01/2025 7:41 AM CDT 03/01/2025 7:41 AM CDT Lydia Franco MD LAB POCT ORDERABLES - DE VICE Final Result DAVID [facility] [address] [facility]. [place] [address] * US RUQ (03/01/2025 7:35 AM CDT) [...] cholecystectomy. Electronically signed by: Jose Bustillo M.D. us Rosa Camp MD IMG US PROCEDURES Final [...] LAB BLOOD ORDERABLES Final Result DAV[facility] PEOPLES [address] [place] [address] * (ABNORMAL) Differential, auto (03/01/2025 5:59 AM CDT) Neutrophil abs 3.84 1.50 - 6.50 K/cumm Imm gran abs 0.01 0.00 - 0.10 K/cumm [facility] Lymphocyte abs 0.47(L) 0.80 - 3.30 K/cumm [facility] Monocyte abs 0.61 0.20 - 0.80 K/cumm [facility] Eosinophil abs 0.17 0.00 - 0.50 K/cumm [facility] Basophil abs 0.02 0.00 - 0.10 K/cumm [facility] Neutrophil pct 75.0 % [facility] Comment: Interpretive Data Percent cell count reference ranges are not reported, since discordance with absolute values may lead to misinterpretation of CBC data. Current Interpretive Data was last revised on 2017. Imm gran pct 0.2 % [facility] Comment: Interpretive Data Percent cell count reference ranges are not reported, since discordance with absolute values may lead to misinterpretation of CBC data. Current Interpretive Data was last revised on 2017. Lymphocyte pct 9.2 % [facility] Comment: Interpretive Data Percent cell count reference ranges are not reported, since discordance with absolute values may lead to misinterpretation of CBC data. Current Interpretive Data was last revised on 2017. Monocyte pct 11.9 % [facility] Comment: Interpretive Data Percent cell count reference ranges are not reported, since discordance with absolute values may lead to misinterpretation of CBC data. Current Interpretive Data was last revised on 2017. Eosinophil pct 3.3 % [facility] Comment: Interpretive Data Percent cell count reference ranges are not reported, since discordance with absolute values may lead to misinterpretation of CBC data. Current Interpretive Data was last revised on 2017. Basophil pct 0.4 % [facility] Comment: Interpretive Data Percent cell count reference ranges are not reported, since discordance with absolute values may lead to misinterpretation of CBC data. Current Interpretive Data was last revised on 2017. Blood 03/01/2025 5:59 AM CDT 03/01/2025 5:59 AM CDT Rosa Camp MD LAB BLOOD ORDERABLES Final Result Performing Organization Address City/[facility]/ZIP Co de Phone Number DAVID PEOPLES [address] [place] [address] * (ABNORMAL) CBC with auto differential (03/01/2025 5:59 AM CDT) WBC 5.12 3.80 - 9.90 K/cumm Hgb 11.4(L) 13.0 - 17.5 g/dL [facility] Hct 35.4(L) 38.9 - 50.3 % [facility] Plt 107(L) 150 - 400 K/cumm [facility] Comment:No clot detected in sample. MPV 11.0 9.1 - 12.3 fL [facility] RBC 4.29(L) 4.30 - 5.80 M/cumm [facility] MCV 82.5 81.3 - 96.4 fL [facility] MCH 26.6(L) 27.1 - 33.3 pg [facility] MCHC 32.2(L) 32.3 - 35.7 g/dL [facility] RDW CV 16.7(H) 11.1 - 14.9 % [facility] RDW SD 49.8(H) 35.7 - 48.1 fL [facility] NRBC abs 0.00 0.00 - 0.01 K/cumm [facility] Blood 03/01/2025 5:59 AM CDT 03/01/2025 5:59 AM CDT Rosa Camp MD LAB BLOOD ORDERABLES Final Result Performing Organization Address City/[facility]/ZIP Co de Phone Number DAVID PEOPLES [address] [place] [place] [address] * (ABNORMAL) Erythrocyte sedimentation rate (03/01/2025 5:59 AM CDT) [facility] Erythrocyte sedimentation rate 37(H) 1 - 20 mm/hr Blood 03/01/2025 5:59 AM CDT 03/01/2025 5:59 AM CDT Rosa Camp MD LAB BLOOD ORDERABLES Final Result Performing Organization Address [facility] de Phone Number DAVID VIRGENCH [address] [facility] [place] [address] * (ABNORMAL) CRP (acute phase) (03/01/2025 5:59 AM CDT) [facility] CRP 71.2(H) <=10.0 mg/L Blood 03/01/2025 5:59 AM CDT 03/01/2025 5:59 AM CDT Rosa Camp MD LAB BLOOD ORDERABLES Final Result Performing Organization Address [facility] de Phone Number DAVID VIRGEN[facility] [address] [facility] [place] [address] * (ABNORMAL) Comprehensive metabolic panel (03/01/2025 5:59 AM CDT) [facility] Sodium 141 135 - 145 mmol/L Potassium, pl 3.7 3.3 - 4.9 mmol/L [facility] Chloride 105 97 - 110 mmol/L [facility] CO2 26 22 - 32 mmol/L [facility] Anion gap 10 2 - 15 mmol/L [facility] BUN 19 6 - 25 mg/dL [facility] Creatinine 0.84 0.80 - 1.30 mg/dL [facility] Glucose 75 70 - 199 mg/dL [facility] Comment: Interpretive Data Fasting glucose [...] LAB BLOOD ORDERABLES Final Result DAVID SWEENEYCH [address] [facility]. [place] [address] * POCT glucose (03/01/2025 4:20 AM CDT) [facility] Signature Glucose, POC 102 70 - 199 mg/dL Comment: Interpretive Data Glucose is assumed to be non-fasting. Fasting Glucose reference ranges are: 0 - 150 years: 70 mg/dL - 99 mg/dL Current interpretive data was last revised on 2014. POC Device Number [id number] DAVID PEOPLES Blood 03/01/2025 4:20 AM CDT 03/01/2025 4:20 AM CDT us Rosa Camp MD LAB POCT ORDERABLES - ALESSIO CE Final Result DAVID [facility] [id number] [facility]. [place] [address] * XR Chest Pa Lateral 2 Vw [...] Report: No growth Comment:Testing performed by : [facility], [address] [place] [address]., [address] Blood 03/01/2025 2:43 AM CDT 03/01/2025 7:08 AM CDT Narrative [facility]ID [facility] - 03/06/2025 1:00 PM CDT Collection->Peripheral Interpretive [...] organism identification may be performed using the You.i Blood Culture Identification panel. This assay detects microbial DNA in a blood culture broth. This assay has been cleared by the [place] Food and Drug Administration and its performance characteristics have been verified by the [facility]. Interpretive data was last revised on August 03, 2022. Jorge L Garcia MD LAB MICROBIOLOGY - GENERAL ORDER JOSE LUIS Final Result DAVID [facility]IR[facility] [address] [facility] [place] [address] * Blood culture Blood (03/01/2025 2:43 AM CDT) Report Final Report: No growth Comment:Testing performed by : [facility], [address] [place] [address], [place]., [address] Blood 03/01/2025 2:43 AM CDT 03/01/2025 7:08 AM CDT Narrative [facility]ID [facility] - 03/06/2025 1:00 PM CDT Collection->Peripheral Interpretive [...] organism identification may be performed using the You.i Blood Culture Identification panel. This assay detects microbial DNA in a blood culture broth. This assay has been cleared by the [place] Food and Drug Administration and its performance characteristics have been verified by the [facility]. Interpretive data was last revised on August 03, 2022. us Jorge L Garcia MD LAB MICROBIOLOGY - GENERAL ORDER JOSE LUIS Final Result Performing Organization Address [facility] Co de Phone Number DAVID VIRGENCH [phone] [facility]. [facility] [place] [address] * Mononucleosis screen (03/01/2025 1:09 AM CDT) [facility] [place] Screen Negative Negative Comment: Interpretive Data Heterophile [...] t Performing Organization Address [facility] Co de Phone Number DAVID [facility] [address] [facility]. [facility] [place] [address] * POCT glucose (03/01/2025 12:27 AM CDT) [facility] Glucose, POC 130 70 - 199 mg/dL Comment: Interpretive Data Glucose is assumed to be non-fasting. Fasting Glucose reference ranges are: 0 - 150 years: 70 mg/dL - 99 mg/dL Current interpretive data was last revised on 2014. POC Device Number [id number] [facility] Blood 03/01/2025 12:2 7 AM CDT 03/01/2025 12:27 AM CDT us Jorge L Garcia MD LAB POCT ORDERABLES - DEVICE Fin al Result DAVID [facility] [id number] [facility]. Department of [employer] [place], [place] [id number] * CT Abdomen Pelvis W Contrast (02/28/2025 [...] LAB BLOOD ORDERABLES Final Result DAVID PEOPLES [address] [place] [address] * (ABNORMAL) Differential, auto (02/28/2025 10:21 PM CDT) Neutrophil abs 6.15 1.50 - 6.50 K/cumm Imm gran abs 0.04 0.00 - 0.10 K/cumm [facility] Lymphocyte abs 0.43(L) 0.80 - 3.30 K/cumm [facility] Monocyte abs 0.69 0.20 - 0.80 K/cumm [facility] Eosinophil abs 0.06 0.00 - 0.50 K/cumm [facility] Basophil abs 0.02 0.00 - 0.10 K/cumm [facility] Neutrophil pct 83.3 % [facility] Comment: Interpretive Data Percent cell count reference ranges are not reported, since discordance with absolute values may lead to misinterpretation of CBC data. Current Interpretive Data was last revised on 2017. Imm gran pct 0.5 % [facility] Comment: Interpretive Data Percent cell count [...] on 2017. Eosinophil pct 0.8 % [facility] Comment: Interpretive Data Percent cell count reference ranges are not reported, since discordance with absolute values may lead to misinterpretation of CBC data. Current Interpretive Data was last revised on 2017. Basophil pct 0.3 % [facility] Comment: Interpretive Data Percent cell count reference ranges are not reported, since discordance with absolute values may lead to misinterpretation of CBC data. Current Interpretive Data was last revised on 2017. Blood 02/28/2025 10:2 1 PM CDT 02/28/2025 10:26 PM CDT us Arabella Roblero NP LAB BLOOD ORDERABLES Final Result [facility] [address] [facility]. [place] [address] * (ABNORMAL) CBC with auto differential (02/28/2025 10:21 PM CDT) WBC 7.39 3.80 - 9.90 K/cumm Hgb 11.8(L) 13.0 - 17.5 g/dL [facility] Hct 36.7(L) 38.9 - 50.3 % [facility] Plt 119(L) 150 - 400 K/cumm [facility] Comment:No clot detected in sample. MPV 10.5 9.1 - 12.3 fL [facility] RBC 4.52 4.30 - 5.80 M/cumm [facility] MCV 81.2(L) 81.3 - 96.4 fL [facility] MCH 26.1(L) 27.1 - 33.3 pg [facility] MCHC 32.2(L) 32.3 - 35.7 g/dL [facility] RDW CV 16.7(H) 11.1 - 14.9 % [facility] RDW SD 48.8(H) 35.7 - 48.1 fL [facility] NRBC abs 0.00 0.00 - 0.01 K/cumm [facility] Blood 02/28/2025 10:2 1 PM CDT 02/28/2025 10:26 PM CDT us Arabella Roblero STOCKROOM CLERK LAB BLOOD ORDERABLES Final Result DAVID PEOPLES [address] [place] [address] * (ABNORMAL) Comprehensive metabolic panel (02/28/2025 10:21 PM CDT) Sodium 139 135 - 145 mmol/L Potassium, pl 4.0 3.3 - 4.9 mmol/L [facility] Chloride 103 97 - 110 mmol/L [facility] CO2 24 22 - 32 mmol/L [facility] Anion gap 12 2 - 15 mmol/L [facility] BUN 18 6 - 25 mg/dL [facility] [...] CDT 02/28/2025 10:26 PM CDT Arabella Roblero STOCKROOM CLERK LAB BLOOD ORDERABLES Final Result Performing Organization Address [facility]/ZIP Co de Phone Number DAVID VIRGEN[facility] [address] [facility] [place] [address] * POCT glucose (02/28/2025 9:56 PM CDT) [facility] Glucose, POC 136 70 - 199 mg/dL Comment: Interpretive Data Glucose is assumed to be non-fasting. Fasting Glucose reference ranges are: 0 - 150 years: 70 mg/dL - 99 mg/dL Current interpretive data was last revised on 2014. POC Device Number [id number] [facility] Blood 02/28/2025 9:56 PM CDT 02/28/2025 9:56 PM CDT Notinfile Unknown LAB POCT ORDERABLES - DEVICE F inal Result Performing Organization Address [facility] Co de Phone Number DAVID [facility] [address] [facility] [place] [address] * Influenza A/B, RSV, and COVID-19 PCR Nasopharyngeal (02/28/2025 8:27 PM CDT) [facility] COVID-19 RNA Negative Negative Influenza A RNA Negative Negative [facility] Influenza B RNA Negative Negative [facility] RSV RNA Negative Negative [facility] Comment: Testing performed by [facility]. This test is performed using the [employer] Xpert Xpress CoV-2/Flu/RSV plus assay. This is a multiplex, real-time reverse transcriptase PCR assay intended for the qualitative detection of nucleic acid from SARS-CoV-2, influenza A, influenza B, and respiratory syncytial virus. This assay has been cleared by the [place] Food and Drug administration. The performance characteristics have been verified by the [facility]. Results must be considered in the clinical context, and a negative result does not rule out infection. Interpretive Data last revised 2023 Nasopharyngeal 02/28/2025 8: 27 PM CDT 02/28/2025 8:27 PM CDT Narrative [facility] - 02/28/2025 9:05 PM CDT Is the Patient experiencing symptoms consistent with COVID?->Yes us Jorge L Garcia MD LAB MICROBIOLOGY - GENERAL ORDER JOSE LUIS Final Result Performing Organization Address [facility] Co de Phone Number DAVID PEOPLES [address] [facility] [place] [address] * (ABNORMAL) Urinalysis reflex to microscopic and [...] uric acid stone formation. Source: [facility] Current Interpretive Data was last [...] to microscopic UA will be performed. [facility]ID SWE[facility]YCH Urine 02/28/2025 8:27 PM CDT 02/28/2025 8:27 PM CDT us Jorge L Garcia MD LAB MICROBIOLOGY - GENERAL ORDER JOSE LUIS Final Result Performing Organization Address [facility] Co de Phone Number DAVID PEOPLES [address] [facility] Department of Laboratories [place], [place] [id number] * Respiratory pathogen panel Nasopharyngeal (02/28/2025 8:27 PM CDT) [facility] Influenza A RNA Not Detected Not Detected [facility] Comment:Testing performed by : [facility], [address] [place] [address]., [address] Influenza B RNA Not Detected Not Detected [facility] Comment:Testing performed by : [facility], [address] [place] [address]., [address] RSV RNA Not Detected Not Detected [facility]ID PEOPLES Comment:Testing performed by : [facility], [address] [place] [address]., [id number] COVID-19 RNA Not Detected Not Detected [facility] PEOP[facility] Comment:Testing performed by : [facility], [address] [place] [address]., [address] Coronavirus 229E RNA Not Detected Not Detected DAVID SWEENEY Comment:Testing performed by : [facility], [address] [place] [address]., [address] Coronavirus HKU1 RNA Not Detected Not Detected DAVID SWEENEY Comment:Testing performed by : [facility], [address] [place] [address]., [address] Coronavirus NL63 RNA Not Detected Not Detected DAVID BJAnna Comment:Testing performed by : [facility], [address] [place] [address]., [address] Coronavirus OC43 RNA Not Detected Not Detected [facility] Comment:Testing performed by : [facility], [address] [place] [address]., [address] Adenovirus DNA Not Detected Not Detected DAVID [facility] Comment:Testing performed by : [facility], [address] [place] [address]., [address] Metapneumovirus RNA Not Detected Not Detected DAVID BJAnnaCH Comment:Testing performed by : [facility], [address] [place] [address]., [address] Rhinovirus/Enterov irus RNA Not Detected Not Detected CERNER [facility] Comment:Testing performed by : [facility], [address] [place] [address]., [address] Parainfluenza 1 RNA Not Detected Not Detected CERNER [facility] Comment:Testing performed by : [facility], [address] [place] [address]., [address] Parainfluenza 2 RNA Not Detected Not Detected CERNER [facility] Comment:Testing performed by : [facility], [address] [place] [address]., 160[address] Parainfluenza 3 RNA Not Detected Not Detected CERNER [facility] Comment:Testing performed by : [facility], [address] [place] [address]., [address] Parainfluenza 4 RNA Not Detected Not Detected CERNER [facility] Comment:Testing performed by : [facility], [address] [place] [address]., [address] B. pertussis DNA Not Detected Not Detected CERNER [facility] Comment:Testing performed by : [facility], [address] [place] [address]., [address] B. parapertussis DNA Not Detected Not Detected CERNER [facility] Comment:Testing performed by : [facility], [address] [place] [address]., [address] C. pneumoniae DNA Not Detected Not Detected CERNER [facility] Comment:Testing performed by : [facility], [address] [place] [address]., [address] M. pneumoniae DNA Not Detected Not Detected CERNER [facility] Comment: Interpretive Data The Quench FilmArray Respiratory Panel (RP2.1) assay is a [...] assay has FDA clearance for testing of STOCKROOM CLERK swabs. The performance characteristics of this assay have been determined by [facility]. Current interpretive data was last revised on 2021. Testing performed by: [facility], [address] [place] [address], [place]., [address] Nasopharyngeal 02/28/2025 8: 27 PM CDT 03/01/2025 3:00 AM CDT Jorge L Garcia MD LAB MICROBIOLOGY - GENERAL ORDER JOSE LUIS Final Result DAVID [facility] [address] [facility]. [place] [address] [facility] * (ABNORMAL) Urinalysis, microscopic only (02/28/2025 8:27 PM CDT) WBC, ur 0-5 0 - 5 /HPF RBC, ur 0-2 0 - 2 /HPF DAVID [facility] Mucous, ur Present(A) DAVID [facility] Culture Reflex Comment Reflex conditions for urine culture (WBC >10) not met. DAVID PEOPLES Urine 02/28/2025 8:27 PM CDT 02/28/2025 8:27 PM CDT Jorge L Garcia MD LAB URINE ORDERABLES Final Resul t DAVID SWEENEY [address] [facility]. [facility] [place] [address] * Surgical pathology (02/23/2025 12:00 AM CDT) Tissue (Skin, shave biopsy) 02/23/2025 02/24/2025 7:14 AM CDT Narrative DERMATOPATHOLOGY CENTER - 02/25/2025 11:20 AM CDT EPIC results best viewed via link to PDF [facility] [place], [facility] [address] [address] [email or web address] Note to Patients: This report may contain [...] Galvez M.D. [address] [facility], [address] [place] [address] [place] [address] , DERMATOPATHOLOGY REPORT RESULTS DIAGNOSIS: SKIN, RIGHT PLASENCIA, SHAVE BIOPSY: BASAL CELL CARCINOMA [facility] By this signature, I attest that [...] ag/mat ICD-9 A; ZSD.176 Clerical Data A; 22914 The characteristics of special, immunohistochemical, and immunofluorescence stains and in-situ hybridization tests performed by the [facility] were deemed acceptable in ongoing quality control tester measures and in compliance with regulations drawn from the Clinical Laboratory Improvement Act kj7904 (CLIA '88). Control reactions for all stains performed were deemed adequate and appropriate by a pathologist prior to evaluation of patient tissue. Some diagnoses were rendered with the assistance of laboratory-developed tests utilizing analyte-specific reagents; the performance characteristic of these tests were determined by [facility] and are not cleared or approved by the [place] Food an Drug administration. Laboratory developed test may only be performed in a facility that is certified by the [facility] as a high-complexity laboratory under CLIA '88. These tests are used for clinical purposes and are not investigational. Kemal Galvez MD LAB PATHOLOGY ORDERABLES Final Result DERMATOPATHOLOGY CENTER [facility] [place] [address] * CTA Abdomen (02/05/2025 2:29 PM [...] Electronically signed by: Kolton Dale M.D. us Bne Chahal MD PhD IMG CT PROCEDURES Final Result * (ABNORMAL) Lipid panel (11/19/2024 [...] NCEP Expert Panel. Circulation 2004;110:227 3. Main Vicente al. JEANINE Cardiol. 2020 October 30;5(5):540-548. doi: [...] PM CDT 11/19/2024 1:09 PM CDT us Tavon Razo MD LAB BLOOD ORDERABLES Fi nal Result DAVID [facility] [address] [facility]. [place] [address] * Colonoscopy (11/11/2024 11:01 AM CDT) Anatomical Region Laterality Modality Other Narrative Procedure Note Trang Ryan MD - 11/11/2024 11:01 AM CDT ENDOSCOPY LAB Patient Name: Rah Henson Procedure Date: 11/11/2024 11:01 AM Date of : 1955 Admit Type: Outpatient Age: 69 Gender: Male Attending MD: Trang Ryan M.D. Room: [facility] ENDOSCOPY ROOM 01 Note Status: Finalized Procedure: [...] The scope was passed under direct vision.The [id number] was introduced through the anusand advanced to [...] NP LAB URINE ORDERABLES Tete l Result [facility] [address] [place] [address] * PSA screen (04/16/2020 7:01 AM CDT) PSA 0.1 < OR = 4.0 ng/mL [facility] Comment: The total PSA value from [...] MD LAB BLOOD ORDERABLES Final R esult [facility] [address] [address] [facility] [place] [address] from Last 3 Months or Most Recently Relevant to Health Maintenance Insurance [employer] CHOICE MEDICARE PPO IDPA [id number] GOLD REF T SENIOR SUPPLEMENT [employer] CHOICE MEDICARE PPO MEDICARE IDPA [employer] CHOICE MEDICARE PPO IDPA IDPA [facility] MEDICARE PPO IDPA [employer] MEDICARE HMO Advance Directives For more information, please contact: [phone] Documents on File Type Date Recorded Patient Local City Driver Expl anation ADVANCE DIRECTIVE 05/22/2023 5:43 PM Claudine Ellis POWER OF MANAGER DENTAL-MEDICAL ADVANCE DIRECTIVE 04/12/2023 6:16 PM [place] R OF MANAGER DENTAL-MEDICAL ADVANCE DIRECTIVE 04/12/2023 6:09 PM [place] R OF MANAGER DENTAL-MEDICAL * Full Code (Latest Code Status on [...] Agents on File Name Relationship Healthcare Agent Robert power Communication Claudine Henson Spouse Health Care Agent [email or web address] Meghan Ellis Daughter First Alternate Health Care Agent Sushant Henson Son Second Alternate Health Care Agent Care Teams Box Puller Relationship Specialty Start Date End Date Kenton Ricks MD PCP - General 08/14/16 Pebbles Nelson MD Referring Physician Cardiology 02/07/19 Aylin Russ MD [address] [facility] [address] [place] [address] Referring Physician Pulmonary Disease 02/07/19 Maricruz Ramirez NP [address] [facility] [address] [place] [address] Nurse Practitioner Cardiovascular Disease 09/25/21 Joanne Lopez, [place] Registered Nurse Pulmonary Disease 08/24/22 Ben Chahal MD PhD [address] [place] [address] Medical Oncologist/Hematologis t Medical Oncology 10/05/22 Giovanna Alexis MD [address] DIV [place] [address] Radiation Oncologist Radiation Oncology 03/09/23 Abby Higgins MD PhD [address] DIV IM MEDICAL ONCOLOGY, [facility] [address], [address]B, [address] [place] [address] Medical Oncologist/Hematologis t Medical Oncology 05/10/23 Adrian Martinez MD [address] DIV SURG TRANSPLANT, [facility] [address] [place] [address] Surgical Oncologist Surgical Oncology 05/28/23 Vera Pérez PA [address] [place] [phone] [place] [address] Physician Manager Relationship Colon and Rectal Surgery 09/13/23 Jim Frausto MD [address] [facility] [phone] [place] [address] Surgeon Colon and Rectal Surgery 11/21/23
--- OUTSIDE RECORDS SUMMARY | 2025-05-05 07:55 | XMS_ITS ---
Author Organization [facility] Address [address] [place] [address] Care Team Providers Care Projection Printer Name Role Phone Kenton Ricks MD Primary Care Provider + [phone] Pebbles Nelson MD Unavailable [phone] Aylin Russ MD Unavailable [phone] Maricruz Ramirez NP Unavailable [phone] Joanne Lopez RN Unavailable Padmini Ben Walker MD PhD Unavailable [phone] Giovanna Alexis MD Unavailable Abby Higgins MD PhD Unavailable + Adrian Martinez MD Unavailable [phone] Vera Pérez Unavailable [phone] Jim Frausto MD Unavailable [phone] Active Problems Problem Noted Date Diagnosed Date [...] 08/23/2024 Assessment & Plan (08/26/2024 3:51 PM ROTARY SCREEN PRINTING MACHINE OPERATOR): The patient reported left eye [...] 08/11/2024 Assessment & Plan (08/26/2024 4:05 PM ROTARY SCREEN PRINTING MACHINE OPERATOR): Patient developed hematemesis on 08/11 [...] 08/04/2024 Assessment & Plan (08/22/2024 10:54 PM ROTARY SCREEN PRINTING MACHINE OPERATOR): Started allopurinol this admission Moderate [...] PPI Assessment & Plan (08/11/2024 8:44 PM ROTARY SCREEN PRINTING MACHINE OPERATOR): - Recent admission 07/10-07/20 for [...] 07/16/2024 Assessment & Plan (07/20/2024 11:28 AM ROTARY SCREEN PRINTING MACHINE OPERATOR): - Resulted with Nystatin Anal fissure 11/21/2023 Assessment & Plan (01/15/2025 11:15 AM CDT): -Continue prn lidocaine SC and nifedipine ointment Assessment & Plan (01/14/2025 11:42 AM CDT): -Continue prn lidocaine SC and nifedipine ointment Assessment & Plan (01/13/2025 12:04 PM CDT): -Continue prn lidocaine SC and nifedipine ointment Assessment & Plan (01/13/2025 1:06 AM CDT): -Continue prn lidocaine SC and nifedipine ointment Assessment & Plan (12/10/2024 [...] topical CCB - cannot obtain her at [facility] Assessment & Plan (11/22/2024 12:07 PM CDT): - psyllium qAM, added miralax daily - Added lidocaine jelly qid prn - Sitz baths BID - Will try to start topical CCB - cannot obtain her at [facility] Assessment & Plan (11/21/2024 11:50 AM CDT): - psyllium qAM, added miralax daily - Added lidocaine jelly qid prn - Sitz baths BID - Will try to start topical CCB - cannot obtain her at [facility] Assessment & Plan (11/20/2024 11:11 AM CDT): [...] am Home o2 eval ordered Possible dc 16 Cont ppv qhs Assessment & Plan (10/14/2023 5:00 PM CDT): Reports hx copd, vick on ppv, and diaphragmatic paralysis Will add airway clearance and IS Cont inhalers He has diminished volumes but no crackles or wheezes Cxr rev/int- pulm edema gone Cont hycodan, chloraseptic Wean O2 Cont ppv qhs VICK (obstructive sleep apnea) 10/13/2023 Assessment & Plan (11/24/2024 9:17 AM CDT): -CPAP at [facility] Assessment & Plan (11/23/2024 9:48 AM CDT): -CPAP at [facility] Assessment & Plan (11/22/2024 12:07 PM CDT): -CPAP at [facility] Assessment & Plan (11/21/2024 11:50 AM CDT): -CPAP at [facility] Assessment & Plan (11/20/2024 11:11 AM CDT): -CPAP at [facility] Assessment & Plan (11/20/2024 1:34 AM CDT): -CPAP at [facility] Assessment & Plan (10/15/2023 2:34 PM [...] albuterol Assessment & Plan (08/26/2024 4:00 PM ROTARY SCREEN PRINTING MACHINE OPERATOR): Cont. breo ellipta, prn albuterol [...] 07/25/2023 Assessment & Plan (07/26/2023 12:35 PM ROTARY SCREEN PRINTING MACHINE OPERATOR): - Likely multifactorial 2/2 malignancy, recent whipple, chemotherapy, and pain - Very poor PO intake - RD c/s - Started Mirtazapine - Dietary supplementation - Increased Creon as above Malaise 07/24/2023 Assessment & Plan (07/25/2023 2:16 PM ROTARY SCREEN PRINTING MACHINE OPERATOR): - RVP negative - Improving Kidney lesion 07/21/2023 Assessment & Plan (07/25/2023 2:21 PM ROTARY SCREEN PRINTING MACHINE OPERATOR): - Left renal cyst noted [...] prn Assessment & Plan (07/26/2023 12:33 PM ROTARY SCREEN PRINTING MACHINE OPERATOR): - Acute on chronic epigastric [...] 07/09/2023 Assessment & Plan (07/24/2023 5:22 PM ROTARY SCREEN PRINTING MACHINE OPERATOR): - Replace per protocol Class 1 obesity due to exces s calories with serious comorbidity and body mass index (BMI) of 34.0 to 34.9 in adult 06/01/2023 H/O Whipple procedure 05/30/2023 Gastrointestinal hemorrhage 05/30/2023 Assessment & Plan (07/14/2024 12:30 PM ROTARY SCREEN PRINTING MACHINE OPERATOR): History of Postoperative GI bleed. [...] 02/05/2023 Assessment & Plan (07/21/2023 2:06 AM ROTARY SCREEN PRINTING MACHINE OPERATOR): Also has Hx of prostate cancer s/p prostatectomy. Takes gemtesa at home which is not on formulary - continue home oxybutynin and flomax Assessment & Plan (02/09/2023 3:46 PM CDT): Patient presented w/ low urine output and asymptomatic urinary retention, required straight cath in [facility], currently voiding and emptying appropriately - [...] 11/21/2022 Assessment & Plan (08/26/2024 4:05 PM ROTARY SCREEN PRINTING MACHINE OPERATOR): The patient presented with elevated [...] he is scheduled MRI in December at [facility] (requires cardiac monitoring due to ICD) - he is hoping to have this done sooner. Ileus 11/21/2022 Assessment & Plan (07/20/2024 11:29 AM ROTARY SCREEN PRINTING MACHINE OPERATOR): - KUB done 07/13 showing [...] 10/08/2022 Assessment & Plan (07/21/2023 2:04 AM ROTARY SCREEN PRINTING MACHINE OPERATOR): Diagnosed in August 2022, now s/p course of Eliquis. Presented with trace b/l lower ext edema, b/l erythema and mild tenderness which per patient is increased from baseline. Had similar presentation last hospitalization and LE duplex 06/07 was negative - CTM and consider rescanning if persistent Assessment & Plan (06/09/2023 4:47 PM ROTARY SCREEN PRINTING MACHINE OPERATOR): Hx of DVT in August [...] of mets or infection and transferred from [facility] to [facility]. ID here with low concern for HOT ROLLER infection. - CT neck/soft tissue with contrast: [...] due to ICD. Plan to transfer to [facility] for further evaluation w/ possible MRI brain and LP. Rash 09/23/2022 Assessment & Plan (06/12/2023 3:50 PM ROTARY SCREEN PRINTING MACHINE OPERATOR): - contact dermatitis? Not concerned [...] to melisa skin necrosis. - transfer to [facility] for derm eval Anemia 09/22/2022 Assessment & Plan (07/26/2023 12:35 PM ROTARY SCREEN PRINTING MACHINE OPERATOR): Acute on chronic. 7.4 on [...] negative. Assessment & Plan (06/12/2023 3:46 PM ROTARY SCREEN PRINTING MACHINE OPERATOR): HGb 7, plt 94, wbc [...] 09/22/2022 Assessment & Plan (07/26/2023 12:34 PM ROTARY SCREEN PRINTING MACHINE OPERATOR): Has Hx of ileus. On scheduled Linzess, Miralax and PRN Senna-Docusate at home. Patient states he's been having 4-5 soft stools daily - Increased Creon as above. Bowel regimen. Assessment & Plan (06/07/2023 11:26 PM ROTARY SCREEN PRINTING MACHINE OPERATOR): Continue home regimen of Linzess, [...] (08/30/2022): Added automatically from request for surgery [id number] Assessment & Plan (10/15/2023 2:34 PM CDT): Hx of L axillary nodes on CT increased from prior study Should f/u with Dr. Chahal Assessment & Plan (10/13/2023 2:03 PM CDT): Hx of L axillary nodes on CT increased from prior study Should f/u with Dr. Chahal Assessment & Plan (07/26/2023 12:31 PM ROTARY SCREEN PRINTING MACHINE OPERATOR): - s/p whipple. Follows with [...] plan to hold of next cycle of Vernon/Abraxane till infectious etiology is ruled out Assessment [...] plan to hold of next cycle of Vernon/Abraxane till infectious etiology is ruled out Assessment [...] surveillance Assessment & Plan (08/26/2024 4:00 PM ROTARY SCREEN PRINTING MACHINE OPERATOR): s/p whipple with PV/SMV resection (04/2023) and neoadjuvant chemo (completed 08/2023). Most recent scan showed no evidence of disease recurrence Currently on surveillance with CA 19-[address] CAP every 3 months Assessment & Plan (07/10/2024 10:48 PM ROTARY SCREEN PRINTING MACHINE OPERATOR): Pancreatic cancer s/p Whipple with PV/SMV resection on 04/11/2023 s/p neoadjuvant tx, On surveillance OP follow up. Assessment & Plan (06/08/2023 5:32 PM ROTARY SCREEN PRINTING MACHINE OPERATOR): Pancreatic adenocarcinoma sp Whipple, now [...] 1 Assessment & Plan (08/25/2022 12:23 PM ROTARY SCREEN PRINTING MACHINE OPERATOR): Recurrent UTI followed by ID [...] 06/09/2019 Assessment & Plan (06/09/2019 12:54 PM ROTARY SCREEN PRINTING MACHINE OPERATOR): He is agreeable to rescheduling [...] aldactone Assessment & Plan (07/14/2024 12:35 PM ROTARY SCREEN PRINTING MACHINE OPERATOR): HFpEF Euvolemic, normotensive On hold diuretics for now given pt NPO on IVF for ileus, will restart once able to take in po Assessment & Plan (06/11/2023 10:01 PM ROTARY SCREEN PRINTING MACHINE OPERATOR): ECHO 11/21 EF 69%, grade [...] diet Assessment & Plan (08/24/2022 1:10 PM ROTARY SCREEN PRINTING MACHINE OPERATOR): Stable, continued torsemide, spironolactone Assessment & Plan (09/24/2021 12:42 AM CDT): Patient is feeling better. states legs have decreased by half. Continue with IV lasix. Continue to monitor Cr and lytes as we diurese. Holding torsemide. Continue aldactone with hold parameters. Assessment & Plan (08/18/2018 1:16 AM ROTARY SCREEN PRINTING MACHINE OPERATOR): Patient presented with increased shortness [...] NPPV Assessment & Plan (08/26/2024 4:02 PM ROTARY SCREEN PRINTING MACHINE OPERATOR): continue nightly CPAP Assessment & Plan (07/21/2023 6:17 AM ROTARY SCREEN PRINTING MACHINE OPERATOR): Desaturations noted in the ED during sleep per on monitor while on RA (not recorded) - continue nightly BiPAP Assessment & Plan (06/07/2023 11:32 PM ROTARY SCREEN PRINTING MACHINE OPERATOR): Continue nightly BiPAP Assessment & [...] 8:24 AM CDT): -resume home CPAP at [facility] Assessment & Plan (09/22/2022 3:17 AM CDT): -resume home CPAP at [facility] Assessment & Plan (08/24/2022 1:08 PM ROTARY SCREEN PRINTING MACHINE OPERATOR): - home CPAP machine use Assessment & Plan (09/24/2021 12:39 AM CDT): Patient has home NPPV which has been reordered. Assessment & Plan (08/18/2018 1:17 AM ROTARY SCREEN PRINTING MACHINE OPERATOR): Patient with a history of of bilateral diaphragmatic paralysis with central and obstructive sleep apnea. Restart CPAP Shortness of breath at rest 08/18/2018 Assessment & Plan (08/18/2018 1:27 AM ROTARY SCREEN PRINTING MACHINE OPERATOR): Patient with complex past medical [...] 07/26/2018 Assessment & Plan (08/26/2024 4:05 PM ROTARY SCREEN PRINTING MACHINE OPERATOR): H/o vtach s/p ICD 2014 EP consulted for MRCP earlier in admission. Patient's device is conditioned for MRI. Risk stratification: standard Assessment & Plan (07/10/2024 10:38 PM ROTARY SCREEN PRINTING MACHINE OPERATOR): History of ventricular tachycardia ICD in place Assessment & Plan (07/21/2023 2:11 PM ROTARY SCREEN PRINTING MACHINE OPERATOR): Follows with Dr. Nelson in [...] Aug Assessment & Plan (06/11/2023 9:59 PM ROTARY SCREEN PRINTING MACHINE OPERATOR): Follows with Dr. Nelson in EP for history of VT s/p ICD. Denies any recent shocks, as per not there was unscheduled alarm this month due to RV lead impedance. Has outpatient appointment in August Outpatient follow up with EP Assessment & Plan (03/18/2023 1:23 AM CDT): Monitor. MRI conditional. If needs MRI, will need to go to [facility]. Assessment & Plan (02/05/2023 6:58 PM [...] ordered Assessment & Plan (08/18/2018 1:17 AM ROTARY SCREEN PRINTING MACHINE OPERATOR): Last device interrogation was in [...] s/p shoulder surgery. Follows with Dr. Russ ([facility]) as OP. On Symbicort at home. 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 Russ - c/w Breo-Ellipta Assessment & Plan (08/18/2018 1:17 AM ROTARY SCREEN PRINTING MACHINE OPERATOR): Continue with gabapentin Chronic heart [...] PO Assessment & Plan (08/26/2024 4:06 PM ROTARY SCREEN PRINTING MACHINE OPERATOR): Volume down on admission due to diarrhea, now appear slightly volume up, likely I/s/o transfusions and held diuretics Continue to hold home torsemide and spironolactone for now, consider gently resuming prior to discharge Assessment & Plan (07/26/2023 12:34 PM ROTARY SCREEN PRINTING MACHINE OPERATOR): BLE edema with erythema noted [...] night and received 5 units IV insulin 9/30 HgbA1c 8.2 -Tresiba 30<40units -Lispro 10<13U TIDAC -SSI Assessment & Plan (04/02/2025 6:14 PM CDT): Home regimen: tresiba 35U QAM, lispro 12U TIDAC. Blood sugar over 400 last night and received 5 units IV insulin 9/30 HgbA1c 8.2 -Tresiba 30U QAM. Additional 10 [...] elevated at home, he can contact his PCP/infantry weapons officer for further insulin adjustments. Assessment & Plan [...] regimen Assessment & Plan (08/26/2024 4:05 PM ROTARY SCREEN PRINTING MACHINE OPERATOR): Last A1c 8.4. Home regimen: tresiba 45 units, novolog 12 units w/ breakfast and dinner, 8 units with lunch and sliding scale 1:50 > 150 Continue lantus 5 units qam + SSI Assessment & Plan (07/17/2024 2:29 PM ROTARY SCREEN PRINTING MACHINE OPERATOR): - On tresiba 24U Qam [...] hdssi Assessment & Plan (07/26/2023 12:33 PM ROTARY SCREEN PRINTING MACHINE OPERATOR): Insulin dependant. Home regimen: Tresiba 42 units qam, Meal-time insulin 15u tid, SSI. Has had poor oral intake over last 2-3 weeks. He mentions his Stephen 2 sensor has been recording low sugars in 40s-50s overnight for 1 week - SSI inpatient - QID accuchecks Assessment & Plan (06/08/2023 5:39 PM ROTARY SCREEN PRINTING MACHINE OPERATOR): Hgb1c 8.4% in 04/23, follows [...] -SSI Assessment & Plan (08/24/2022 1:07 PM ROTARY SCREEN PRINTING MACHINE OPERATOR): -Home regimen metformin + Tresiba 35 units qAM and novolog 11 units with meals plus SSI -Continue basal bolus regimen, dose reduced while inpatient -Accuchecks Assessment & Plan (09/24/2021 12:38 AM CDT): Patient on PO hypoglycemics. Monitor on SSI. Assessment & Plan (06/09/2019 12:53 PM ROTARY SCREEN PRINTING MACHINE OPERATOR): Diet controlled. A1C at goal. [...] 09/06/2015 Assessment & Plan (06/09/2019 12:49 PM ROTARY SCREEN PRINTING MACHINE OPERATOR): Nodule has not grown on interim imaging. Needs low dose dexamethasone suppression test annually x 5 years since initial evaluation given propensity of some adrenal nodules to become cortisol secreting overtime. Thyroid nodule 09/06/2015 Assessment & Plan (06/09/2019 12:48 PM ROTARY SCREEN PRINTING MACHINE OPERATOR): S/p FNA with benign cytology. Will repeat US in the spring to monitor biopsied thyroid nodule for growth. Multinodular goiter 05/10/2015 Hernia of abdominal wall 02/18/2015 Assessment & Plan (06/09/2019 12:54 PM ROTARY SCREEN PRINTING MACHINE OPERATOR): He will follow up with Dr. 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 Higgins in [...] 02/23/2012 Assessment & Plan (08/26/2024 4:06 PM ROTARY SCREEN PRINTING MACHINE OPERATOR): continue home rosuvastatin consider resuming ASA Assessment & Plan (07/10/2024 10:44 PM ROTARY SCREEN PRINTING MACHINE OPERATOR): Cath in 10/2023 nonobstructive coronary [...] asthma Assessment & Plan (07/21/2023 2:06 AM ROTARY SCREEN PRINTING MACHINE OPERATOR): Follows with Dr. Nelson - Continue home Breo and PRN albuterol inhaler Assessment & Plan (06/07/2023 11:31 PM ROTARY SCREEN PRINTING MACHINE OPERATOR): Follows with Dr. Nelson in pulmonary -Continue home Breo and PRN albuterol inhaler Assessment & Plan (09/25/2022 1:41 AM CDT): -Continue home inhalers. Assessment & Plan (09/22/2022 11:00 AM CDT): Continue home inhalers. Assessment & Plan (08/21/2022 4:13 AM ROTARY SCREEN PRINTING MACHINE OPERATOR): -Symbicort replaced with formulary Breo [...] mGy 1 ,193.9 mGy 991.9 mGy DLP 63,217 mGycm 63,217 mGycm 0 mGycm DAP 622.67 Gy-cm2 0 Gy-cm2 622.67 Gy-cm2 Resolved Problems Problem Noted Date Diagnosed Date Resolved Date Abdominal pain, generalized 01/12/2025 01/13/2025 Ventilator associated pneumonia 08/22/2024 08/22/2024 Acute hypoxemic respiratory failure 08/22/2024 08/23/2024 Assessment & Plan (08/22/2024 8:41 PM ROTARY SCREEN PRINTING MACHINE OPERATOR): Fevers + O2 requirement Aug 14, subsequently found to be positive for Influenza A and Coronavirus ([id number]). 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 S/p tamiflu, Linezolid (08/15-08/18), Cefepime (08/15- 08/17), Ciprofloxacin (08/08). Currently on RA. - supportive care Dysuria 07/25/2024 08/24/2024 Assessment & Plan (08/22/2024 10:12 PM ROTARY SCREEN PRINTING MACHINE OPERATOR): Now resolved. UA on admission [...] 07/25/2024 Assessment & Plan (07/29/2024 3:21 PM ROTARY SCREEN PRINTING MACHINE OPERATOR): Pt reports new burning pain [...] 07/24/2024 Assessment & Plan (08/02/2024 11:26 AM ROTARY SCREEN PRINTING MACHINE OPERATOR): Resolved - Baseline Cr 0.5. Cr on admission was 1.01 - Likely pre-renal due to diarrhea - improved with IVF Dehydration 07/24/2024 08/26/2024 Assessment & Plan (07/26/2024 12:35 PM ROTARY SCREEN PRINTING MACHINE OPERATOR): - due to diarrhea - s/p 1L IVF bolus in [facility] and maintenance IVF Diarrhea 07/19/2024 08/24/2024 Assessment & Plan (08/09/2024 2:16 PM ROTARY SCREEN PRINTING MACHINE OPERATOR): - P/w 1-day history of [...] resolved Assessment & Plan (07/20/2024 11:33 AM ROTARY SCREEN PRINTING MACHINE OPERATOR): - Developed after resolution of ileus. - C diff negative - Increased Creon back to home dose - Imodium prn - Hold Linzess until diarrhea resolved Abdominal pain 11/09/2023 08/25/2024 Assessment & Plan (08/11/2024 8:39 PM ROTARY SCREEN PRINTING MACHINE OPERATOR): Acute on chronic abdominal pain. [...] hematemesis Assessment & Plan (07/14/2024 12:31 PM ROTARY SCREEN PRINTING MACHINE OPERATOR): Hx of pancreatic cancer s/p whipple presented initially to the [facility] with abd pain , nausea and [...] NSAIDs Assessment & Plan (07/10/2024 9:32 PM ROTARY SCREEN PRINTING MACHINE OPERATOR): Hx of pancreatic cancer s/p whipple presented initially to the [facility] with abd pain , nausea and [...] 08/24/2024 Assessment & Plan (08/11/2024 8:40 PM ROTARY SCREEN PRINTING MACHINE OPERATOR): Complained chest pain at left [...] 08/01/2024 Assessment & Plan (08/01/2024 2:54 PM ROTARY SCREEN PRINTING MACHINE OPERATOR): -has ICD in place Assessment [...] 03/31/2025 Assessment & Plan (06/12/2023 3:47 PM ROTARY SCREEN PRINTING MACHINE OPERATOR): Presented with 3 days of [...] 08/22/2024 Assessment & Plan (08/05/2024 11:42 PM ROTARY SCREEN PRINTING MACHINE OPERATOR): RESOLVED. DDx include viral infection [...] prn. Assessment & Plan (07/20/2024 11:30 AM ROTARY SCREEN PRINTING MACHINE OPERATOR): - Developed fever 38.4 C [...] which raise concern for an infectious syndrome -MANUFACTURING CONTROLS ENGINEER swab RPP negative -check blood cultures; hold [...] 10/28/2022 Assessment & Plan (08/24/2022 1:12 PM ROTARY SCREEN PRINTING MACHINE OPERATOR): Referred pancreatitis pain. 12 lead EKG shows no acute changes, baseline NSR with RBB and intrafascicular block. Trop negative. Elevated transaminase level 08/21/2022 10/28/2022 Assessment & Plan (08/24/2022 1:10 PM ROTARY SCREEN PRINTING MACHINE OPERATOR): First noted to have elevated [...] 023 Assessment & Plan (08/22/2022 2:20 PM ROTARY SCREEN PRINTING MACHINE OPERATOR): Diagnosed as outpatient and started on fidaxomicin by ID 08/16/2022. Still with persistent diarrhea. -Continue fidaxomicin -ID following Pancreatic lesion 08/20/2022 10/28/2022 Overview (08/21/2022): Added automatically from request for surgery [id number] Assessment & Plan (08/24/2022 1:08 PM ROTARY SCREEN PRINTING MACHINE OPERATOR): S/P EUS wit FNA confirmed adenocarcinoma. GI arranging oncology and surgical follow up as outpatient Urinary tract infection asso ciated with cystostomy catheter, initial encounter 04/09/2022 0 10/28/2022 Brugada syndrome 07/09/2020 09/10/2020 Cough in adult 06/09/2019 10/28/2022 Assessment & Plan (06/09/2019 12:52 PM ROTARY SCREEN PRINTING MACHINE OPERATOR): This appears to be chronic and persist despite switching from ACEI to ARB. He will contact his weave room supervisor to follow up regarding this. Urinary incontinence 08/18/2018 023 Assessment & Plan (08/18/2018 1:22 AM ROTARY SCREEN PRINTING MACHINE OPERATOR): Continue with Myrbetriq and vesicare [...] 10/28/2022 Assessment & Plan (06/09/2019 12:47 PM ROTARY SCREEN PRINTING MACHINE OPERATOR): Congratulated on recent weight loss. Continue attention to diet, low carb, exercise as able. 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
--- OUTSIDE RECORDS SUMMARY | 2025-05-05 07:55 | XMS_ITS | Encounter Summary ---
Author Organization [employer] Address [address] [place] [address] Care Team Providers Care Telecommunications Consultant Name Role Phone Kenton Ricks MD Primary Care Provider [phone] Encounter Details Date Type Department Care Team (Latest Contact Info) Description 05/17/2001 Outpatient [facility] [address] [place] [place] [id number] Kenyon Montenegro MD [address] [address] HEADACHE (Primary Dx) Social History Tobacco Use Types Packs/Day Years Used Date Smoking Tobacco: Never Assessed Sex and Gender Information Value Date Recorded Sex Assigned at Not on file Legal Sex Male 4:35 AM CONVENTION SERVICES DIRECTOR Gender Identity Not on file Sexual Orientation Not on file documented as of this encounter Plan of Treatment Not on file documented as of this encounter Visit Diagnoses Diagnosis Headache(784.0)- Primary Headache documented in this encounter Care Teams Telecommunications Consultant Relationship Specialty Start Date End Date Kenton Ricks MD [address] [place] [id number] PCP - General Family Practice 11/15/18 documented as of this encounter
--- OUTSIDE RECORDS SUMMARY | 2025-05-05 07:55 | XMS_ITS | Encounter Summary ---
Author Organization [employer] Address [address] [place] [address] Care Team Providers Care Preforming Machine Operator Name Role Phone Kenton Ricks MD Primary Care Provider [phone] Encounter Details Date Type Department Care Team (Late st Contact Info) Description 12/24/2001 Outpatient [facility] [address] [place] [address]. [place] [address] Anika Rowan MD NO ADDRESS ON FILE Social History Tobacco Use Types Packs/Day Years Used Date Smoking Tobacco: Never Assessed Sex and Gender Information Value Date Recorded Sex Assigned at Not on file Legal Sex Male 4:35 AM VISUAL SPECIALIST Gender Identity Not on file Sexual Orientation Not on file documented as of this encounter Plan of Treatment Not on file documented as of this encounter Visit Diagnoses Not on filedocumented in this encounter Care Teams Preforming Machine Operator Relationship Specialty Start Date End Date Kenton Ricks MD [address] [place] [id number] PCP - General Family Practice 11/15/18 documented as of this encounter
--- OUTSIDE RECORDS SUMMARY | 2025-05-05 07:55 | XMS_ITS | Encounter Summary ---
Author Organization [employer] Address [address] [place] [address] Care Team Providers Care Makeup Editor Name Role Phone Kenton Ricks MD Primary Care Provider [phone] Encounter Details Date Type Department Care Team (Late st Contact Info) Description 09/30/2001 Outpatient [facility] [address] [place] [address]. 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 [id number] PCP - General Family Practice 11/15/18 documented as of this encounter
--- OUTSIDE RECORDS SUMMARY | 2025-05-05 07:55 | XMS_ITS | Encounter Summary ---
Author Organization [facility] Address [address] [place] [address] Phone Care Team Providers Care Lap Winding Machine Operator Name Role Phone Kenton Ricks MD Primary Care Provider + [phone] Kenton Ricks MD Primary Care Provider + [phone] Pebbles Nelson MD Unavailable [phone] Aylin Russ MD Unavailable [phone] Maricruz Ramirez NP Unavailable [phone] Joanne Lopez RN Unavailable Padmini Leatha Carter Unavailable Unavailable Ben Chahal MD PhD Unavailable [phone] Chace Oliva MD Unavailable [phone] Giovanna Alexis MD Unavailable Taisha Suarze RN Unavailable Unavaila Sandra Aguirre MD Unavailable +[phone] Abby Higgins MD PhD Unavailable + Adrian Martinez MD Unavailable Vera Pérez Unavailable Jim Frausto MD Unavailable [phone] Анна Robert RN Unavailable [phone] Encounter Details Date Type Department Care Team (Late st Contact Info) Description 05/14/2015 Orders Only [facility] Provider, Max, [address] [place] [address] Social History Tobacco Use Types Packs/Day Years Used Date Smoking Tobacco: Never Assessed Sex and Gender Information Value Date Recorded Sex Assigned at Not on file Legal Sex Male 12:58 AM WATER WELL DRILLER Gender Identity Male 11/11/2018 10:31 AM CDT Sexual Orientation Straight 06/09/2019 5: 34 PM WATER WELL DRILLER documented as of this encounter Plan of [...] Suspected 06/07/2023 06/07/2023 06/07/2023 12:46 PM WATER WELL DRILLER COVID19 06/07/2023 06/07/2023 06/22/2023 3:06 AM WATER WELL DRILLER COVID: Recovered Comment:Added based on recent COVID infection. 06/22/2023 06/22/2023 09/20/2023 3:05 AM C DT COVID: Suspected 07/24/2023 07/24/2023 07/24/2023 3:53 PM WATER WELL DRILLER Diarrhea 07/30/2023 07/30/2023 08/13/2023 3:05 AM WATER WELL DRILLER COVID: Suspected 08/30/2023 08/30/2023 08/30/2023 4:52 PM WATER WELL DRILLER COVID: Suspected 10/12/2023 10/12/2023 10/12/2023 7:57 PM CDT Rhino/Enterovirus 10/12/2023 10/12/2023 10/26/2023 3:05 AM CDT COVID: Suspected 07/10/2024 07/10/2024 07/10/2024 4:53 PM WATER WELL DRILLER COVID: Suspected Comment:07/16/2024 IP Review: no outstanding test, last RPP negative. Mary Tiwari RN 07/16/2024 07/16/2024 10:51 AM WATER WELL DRILLER COVID19 Comment:07/16/2024 IP Review: added by RN, RPP negative. Mary Tiwari RN 07/16/2024 07/16/2024 07/16/2024 10:51 AM WATER WELL DRILLER MRSA Comment:nasalMRSA Isolation Skilled Nursing 09/03/24 07/16/2024 08/15/2024 09/03/2024 6:[address] C. difficile suspected 07/19/2024 07/19/202407/19 2:34 PM WATER WELL DRILLER COVID: Suspected 07/23/2024 07/23/2024 07/23/2024 11:28 PM WATER WELL DRILLER C. difficile suspected 07/23/2024 07/24/202407/24 10:31 AM WATER WELL DRILLER Norovirus suspected 07/23/2024 07/24/2024 07/24/19 9:37 AM WATER WELL DRILLER VRE Comment:Contact Precautions (gown and gloves) - not eligible for IP review until 6 months after positive culture - Jerod QURESHI, CONY 10/01/24 07/24/2024 09/20/2024 03/19/2025 7:26 PM C DT COVID: Suspected 08/09/2024 08/09/2024 08/09/2024 9:40 AM WATER WELL DRILLER Influenza, adult Comment:08/26/2024 IP Review: pt afebrile but on antipyretics. Needs 24 hours off antipyretics and symptoms significantly improved/resolved in order for isolation to be discontinued. Mary Tiwari RN 08/15/2024 08/15/2024 08/29/2024 3:06 AM WATER WELL DRILLER Coronavirus, droplet 08/15/2024 08/15/202408/29/ 025 3:06 AM WATER WELL DRILLER C. difficile suspected 09/19/2024 09/19/202409/20 3:05 AM [...] documented as of this encounter Care Teams Lap Winding Machine Operator Relationship Specialty Start Date End Date Kenton Ricks MD PCP - General 08/14/16 Kenton Ricks MD PCP - General 09/17/08 08/13/16 Pebbles Nelson MD Referring Physician Cardiology 02/07/19 Aylin Russ MD [address] [facility] [address] [place] [address] Referring Physician Pulmonary Disease 02/07/19 Maricruz Ramirez NP [address] [facility] [address] [place] [address] Nurse Practitioner Cardiovascular Disease 09/25/21 Joanne Lopez, CONY Registered Nurse Pulmonary Disease 08/24/22 Leatha Cristina RMA Surgical Prehabilitation and Readiness (SPAR) Coordinator 09/01/22 01/02/23 Ben Chahal MD PhD [address] [facility] [address] 2 [place] [address] Medical Oncologist/Screen Printing Equipment Setter Medical Oncology 10/05/22 Chace Oliva MD [address] [place] [address] Consulting Physician Infectious Diseases 12/22/2204/01 Giovanna Alexis MD [address] [place] [address] Radiation Oncologist Radiation Oncology 03/09/23 Taisha Suarez, firestopper installer Prehabilitation and Readiness (SPAR) Coordinator General Surgery 03/20/23 04/10/23 Sandra Ma MD [address] DIV IM MEDICAL ONCOLOGY, [address]A, 7B, [address] [place] [address] Consulting Physician Medical Oncology 04/25/23 05/09/23 Abby Higgins MD PhD [address] [facility] [address] DIV IM MEDICAL ONCOLOGY, [address]A, 7B, [address]C [place] [address] Medical Oncologist/Screen Printing Equipment Setter Medical Oncology 05/10/23 Adrian Martinez MD [address] [facility] [address] DIV SURG TRANSPLANT, [facility] [address] [place] [address] Surgical Oncologist Surgical Oncology 05/28/23 Vera Pérez PA [address] [place] [id number] [place] [address] Physician Sack Lifter Colon and Rectal Surgery 09/13/23 Jim Frausto MD [address] [facility] [phone] [place] [address] Surgeon Colon and Rectal Surgery 11/21/23 Анна Robert, RN [address] [facility] [address] [place] [address] SHOP Outpatient Senior Pricing Analyst 09/29/24 10/01/24 documented as of this encounter
--- OUTSIDE RECORDS SUMMARY | 2025-05-05 07:55 | XMS_ITS | Encounter Summary ---
Author Organization [facility] Address [address] [place] [address] Care Team Providers Care Developing Machine Tender Name Role Phone Kenton Ricks MD Primary Care Provider [phone] Encounter Details Date Type Department Care Team (Late st Contact Info) Description 07/23/2001 Outpatient Historical Division of Neurology [address] [address] Shabbir Villavicencio MD [address] 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 [address] PCP - General Family Practice 11/15/18 documented as of this encounter
--- OUTSIDE RECORDS SUMMARY | 2025-05-05 07:55 | XMS_ITS | Clinical Summary ---
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 [address] PCP - General Family Practice 11/15/18
--- OUTSIDE RECORDS SUMMARY | 2025-05-05 07:55 | XMS_ITS | Encounter Summary ---
Author Organization [employer] Address [address] [place] [address] Care Team Providers Care Painter Structural Steel Name Role Phone Kenton Ricks MD Primary Care Provider [phone] Encounter Details Date Type Department Care Team (Late st Contact Info) Description 10/06/2001 Outpatient [facility] [address] [place] [address]. 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 [address] PCP - General Family Practice 11/15/18 documented as of this encounter
--- OUTSIDE RECORDS SUMMARY | 2025-05-05 07:55 | XMS_ITS | Encounter Summary ---
Author Organization [employer] Address 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 [address] PCP - General Family Practice 11/15/18 documented as of this encounter
--- OUTSIDE RECORDS SUMMARY | 2025-05-05 07:56 | XMS_ITS | Encounter Summary ---
Author Organization [facility] Address [address] [place] [address] Phone Care Team Providers Care Almond Cutting Machine Tender Name Role Phone Kenton Ricks MD Primary Care Provider + [phone] Kenton Ricks MD Primary Care Provider + [phone] Pebbles Nelson MD Unavailable [phone] Aylin Russ MD Unavailable [phone] Maricruz Ramirez NP Unavailable [phone] Joanne Lopez RN Unavailable Padmini Leatha Carter Unavailable Unavailable Ben Chahal MD PhD Unavailable [phone] Chace Oliva MD Unavailable [phone] Giovanna Alexis MD Unavailable Taisha Suarez RN Unavailable Unavaila Sandra Aguirre MD Unavailable [phone] Abby Higgins MD PhD Unavailable + Adrian Martinez MD Unavailable [phone] Vera Pérez Unavailable Jim Frausto MD Unavailable Анна Robert RN Unavailable Encounter Details Date Type Department Care Team (Late st Contact Info) Description 03/14/2016 Orders Only [facility] Provider, Max, [address] [place] [address] Social History Tobacco Use Types Packs/Day Years Used Date Smoking Tobacco: Never Assessed Sex and Gender Information Value Date Recorded Sex Assigned at Not on file Legal Sex Male 12:58 AM REMEDIATION BIOANALYTICS CONSULTANT Gender Identity Male 11/11/2018 10:31 AM CDT Sexual Orientation Straight 06/09/2019 5: 34 PM REMEDIATION BIOANALYTICS CONSULTANT documented as of this encounter Plan of [...] COVID: Suspected 06/07/2023 06/07/2023 06/07/2023 12:46 PM REMEDIATION BIOANALYTICS CONSULTANT COVID19 06/07/2023 06/07/2023 06/22/2023 3:06 AM REMEDIATION BIOANALYTICS CONSULTANT COVID: Recovered Comment:Added based on recent COVID infection. 06/22/2023 06/22/2023 09/20/2023 3:05 AM C DT COVID: Suspected 07/24/2023 07/24/2023 07/24/2023 3:53 PM REMEDIATION BIOANALYTICS CONSULTANT Diarrhea 07/30/2023 07/30/2023 08/13/2023 3:05 AM REMEDIATION BIOANALYTICS CONSULTANT COVID: Suspected 08/30/2023 08/30/2023 08/30/2023 4:52 PM REMEDIATION BIOANALYTICS CONSULTANT COVID: Suspected 10/12/2023 10/12/2023 10/12/2023 7:57 PM CDT Rhino/Enterovirus 10/12/2023 10/12/2023 10/26/2023 3:05 AM CDT COVID: Suspected 07/10/2024 07/10/2024 07/10/2024 4:53 PM REMEDIATION BIOANALYTICS CONSULTANT COVID: Suspected Comment:07/16/2024 IP Review: no outstanding test, last RPP negative. Mary iTwari RN 07/16/2024 07/16/2024 10:51 AM REMEDIATION BIOANALYTICS CONSULTANT COVID19 Comment:07/16/2024 IP Review: added by RN, RPP negative. Mary Tiwari RN 07/16/2024 07/16/2024 07/16/2024 10:51 AM REMEDIATION BIOANALYTICS CONSULTANT MRSA Comment:nasalMRSA Isolation [facility] 09/03/24 07/16/2024 08/15/2024 09/03/2024 6:[address] C. difficile suspected 07/19/2024 07/19/202407/19 2:34 PM REMEDIATION BIOANALYTICS CONSULTANT COVID: Suspected 07/23/2024 07/23/2024 07/23/2024 11:28 PM REMEDIATION BIOANALYTICS CONSULTANT C. difficile suspected 07/23/2024 07/24/202407/24 10:31 AM REMEDIATION BIOANALYTICS CONSULTANT Norovirus suspected 07/23/2024 07/24/2024 07/24/19 9:37 AM REMEDIATION BIOANALYTICS CONSULTANT VRE Comment:Contact Precautions (gown and gloves) - not eligible for IP review until 6 months after positive culture - Jerod QURESHI, CONY 10/01/24 07/24/2024 09/20/2024 03/19/2025 7:26 PM C DT COVID: Suspected 08/09/2024 08/09/2024 08/09/2024 9:40 AM REMEDIATION BIOANALYTICS CONSULTANT Influenza, adult Comment:08/26/2024 IP Review: pt afebrile but on antipyretics. Needs 24 hours off antipyretics and symptoms significantly improved/resolved in order for isolation to be discontinued. Mary Tiwari RN 08/15/2024 08/15/2024 08/29/2024 3:06 AM REMEDIATION BIOANALYTICS CONSULTANT Coronavirus, droplet 08/15/2024 08/15/202408/29/ 025 3:06 AM REMEDIATION BIOANALYTICS CONSULTANT C. difficile suspected 09/19/2024 09/19/202409/20 3:05 AM [...] documented as of this encounter Care Teams Almond Cutting Machine Tender Relationship Specialty Start Date End Date Kenton Ricks MD PCP - General 08/14/16 Kenton Ricks MD PCP - General 09/17/08 08/13/16 Pebbles Nelson MD Referring Physician Cardiology 02/07/19 Aylin Russ MD [address] [facility] [address] [place] [address] Referring Physician Pulmonary Disease 02/07/19 Maricruz Ramirez NP [address] [facility] [address] [place] [address] Nurse Practitioner Cardiovascular Disease 09/25/21 Joanne Lopez, CONY Registered Nurse Pulmonary Disease 08/24/22 Leatha Cristina RMA Surgical Prehabilitation and Readiness (SPAR) Coordinator 09/01/22 01/02/23 Ben Chahal MD PhD 10 [facility] [address] [place] [address] Medical Oncologist/Director Counseling Bureau Medical Oncology 10/05/22 Chace Oliva MD [address] [place] [address] Consulting Physician Infectious Diseases 12/22/2204/01 Giovanna Alexis MD [address] [place] [address] Radiation Oncologist Radiation Oncology 03/09/23 Taisha Suarez, bottom polisher Prehabilitation and Readiness (SPAR) Coordinator General Surgery 03/20/23 04/10/23 Sandra Ma MD [address] DIV IM MEDICAL ONCOLOGY, [address], [address]B, [address] [place] [address] Consulting Physician Medical Oncology 04/25/23 05/09/23 Abby Higgins MD PhD [address] [facility] [address] DIV IM MEDICAL ONCOLOGY, [address]A, [address]B, [address] [place] [address] Medical Oncologist/Director Counseling Bureau Medical Oncology 05/10/23 Adrian Martinez MD [address] [facility] [address] DIV SURG TRANSPLANT, [facility] [address] [place] [address] Surgical Oncologist Surgical Oncology 05/28/23 Vera Pérez PA [address] [place] [id number] [place] [address] Physician Pump Rebuilder Colon and Rectal Surgery 09/13/23 Jim Frausto MD [address] [facility] [phone] [place] [address] Surgeon Colon and Rectal Surgery 11/21/23 Анна Robert, RN [address] [facility] [address] [place] [address] SHOP Outpatient Premix Concrete Batcher 09/29/24 10/01/24 documented as of this encounter
--- OUTSIDE RECORDS SUMMARY | 2025-05-05 07:56 | XMS_ITS | Encounter Summary ---
Author Organization [facility] Address [address] [place] [address] Phone Care Team Providers Care Fur Puller Name Role Phone Kenton Ricks MD Primary Care Provider + [phone] Pebbles Nelson MD Unavailable [phone] Aylin Russ MD Unavailable [phone] Maricruz Ramirez NP Unavailable [phone] Joanne Lopez RN Unavailable Padmini Leatha Carter Unavailable Unavailable Ben Chahal MD PhD Unavailable [phone] Chace Oliva MD Unavailable [phone] Giovanna Alexis MD Unavailable Taisha Suarez RN Unavailable Unavaila Sandra Aguirre MD Unavailable [phone] Abby Higgins MD PhD Unavailable + Adrian Martinez MD Unavailable [phone] Vera Pérez Unavailable [phone] Jim Frausto MD Unavailable [phone] Анна Robert RN Unavailable [phone] Encounter Details Date Type Department Care Team [...] week 10/17/2021 How often do you attend [facility] or [facility]? More than 4 times per year [...] place to sleep or slept in a group home (including now)? No 10/17/2021 Sex and Gender Information Value Date Recorded Sex Assigned at Not on file Legal Sex Male 12:58 AM AUTOMOBILE OR TRUCK RENTAL DISPATCHER Gender Identity Male 11/11/2018 10:31 AM CDT Sexual Orientation Straight 06/09/2019 5: 34 PM AUTOMOBILE OR TRUCK RENTAL DISPATCHER documented as of this encounter Plan of [...] COVID: Suspected 06/07/2023 06/07/2023 06/07/2023 12:46 PM AUTOMOBILE OR TRUCK RENTAL DISPATCHER COVID19 06/07/2023 06/07/2023 06/22/2023 3:06 AM AUTOMOBILE OR TRUCK RENTAL DISPATCHER COVID: Recovered Comment:Added based on recent COVID infection. 06/22/2023 06/22/2023 09/20/2023 3:05 AM C DT COVID: Suspected 07/24/2023 07/24/2023 07/24/2023 3:53 PM AUTOMOBILE OR TRUCK RENTAL DISPATCHER Diarrhea 07/30/2023 07/30/2023 08/13/2023 3:05 AM AUTOMOBILE OR TRUCK RENTAL DISPATCHER COVID: Suspected 08/30/2023 08/30/2023 08/30/2023 4:52 PM AUTOMOBILE OR TRUCK RENTAL DISPATCHER COVID: Suspected 10/12/2023 10/12/2023 10/12/2023 7:57 PM CDT Rhino/Enterovirus 10/12/2023 10/12/2023 10/26/2023 3:05 AM CDT COVID: Suspected 07/10/2024 07/10/2024 07/10/2024 4:53 PM AUTOMOBILE OR TRUCK RENTAL DISPATCHER COVID: Suspected Comment:07/16/2024 IP Review: no outstanding test, last RPP negative. Mary Tiwari, CONY 07/16/2024 07/16/2024 10:51 AM AUTOMOBILE OR TRUCK RENTAL DISPATCHER COVID19 Comment:07/16/2024 IP Review: added by CLAUDIO DONNELLY negative. Mary Tiwari RN 07/16/2024 07/16/2024 07/16/2024 10:51 AM AUTOMOBILE OR TRUCK RENTAL DISPATCHER MRSA Comment:nasalMRSA Isolation Nursing Home 09/03/24 07/16/2024 08/15/2024 09/03/2024 6:[address] C. difficile suspected 07/19/2024 07/19/202407/19 2:34 PM AUTOMOBILE OR TRUCK RENTAL DISPATCHER COVID: Suspected 07/23/2024 07/23/2024 07/23/2024 11:28 PM AUTOMOBILE OR TRUCK RENTAL DISPATCHER C. difficile suspected 07/23/2024 07/24/202407/24 10:31 AM AUTOMOBILE OR TRUCK RENTAL DISPATCHER Norovirus suspected 07/23/2024 07/24/2024 07/24/19 9:37 AM AUTOMOBILE OR TRUCK RENTAL DISPATCHER VRE Comment:Contact Precautions (gown and gloves) - not eligible for IP review until 6 months after positive culture - Jerod QURESHI, CONY 10/01/24 07/24/2024 09/20/2024 03/19/2025 7:26 PM C DT COVID: Suspected 08/09/2024 08/09/2024 08/09/2024 9:40 AM AUTOMOBILE OR TRUCK RENTAL DISPATCHER Influenza, adult Comment:08/26/2024 IP Review: pt afebrile but on antipyretics. Needs 24 hours off antipyretics and symptoms significantly improved/resolved in order for isolation to be discontinued. Mary Tiwari RN 08/15/2024 08/15/2024 08/29/2024 3:06 AM AUTOMOBILE OR TRUCK RENTAL DISPATCHER Coronavirus, droplet 08/15/2024 08/15/2024 025 3:06 AM AUTOMOBILE OR TRUCK RENTAL DISPATCHER C. difficile suspected 09/19/2024 09/19/202409/20 3:05 AM [...] documented as of this encounter Care Teams Fur Puller Relationship Specialty Start Date End Date Kenton Ricks MD PCP - General 08/14/16 Pebbles Nelson MD Referring Physician Cardiology 02/07/19 Aylin Russ MD [address] [facility] [address] [place] [address] Referring Physician Pulmonary Disease 02/07/19 Maricruz Ramirez STAGECRAFT TEACHER [address] [place] [address] Nurse Practitioner Cardiovascular Disease 09/25/21 Joanne Lopez, CONY Registered Nurse Pulmonary Disease 08/24/22 Leatha Cristina RMA Surgical Prehabilitation and Readiness (SPAR) Coordinator 09/01/22 01/02/23 Ben Chahal MD PhD 10 [facility] [address] 2 [place] [address] Medical Oncologist/Assistant Associate Professor Medical Oncology 10/05/22 Chace Oliva MD [address] [place] [address] Consulting Physician Infectious Diseases 12/22/2204/01 Giovanna Alexis MD [address] [place] [address] Radiation Oncologist Radiation Oncology 03/09/23 Taisha Suarez, plunger shovel operator Prehabilitation and Readiness (SPAR) Coordinator General Surgery 03/20/23 04/10/23 Sandra Ma MD [address] DIV IM MEDICAL ONCOLOGY, [address]A, 7B, [address] [place] [address] Consulting Physician Medical Oncology 04/25/23 05/09/23 Abby Higgins MD PhD [address] DIV IM MEDICAL ONCOLOGY, [address]A, 7B, [address] [place] [address] Medical Oncologist/Assistant Associate Professor Medical Oncology 05/10/23 Adrian Martinez MD [address] DIV SURG TRANSPLANT, [address] [place] [address] Surgical Oncologist Surgical Oncology 05/28/23 Vera Pérez PA [address] [id number] [place] [address] Physician Metal Fence Erector Colon and Rectal Surgery 09/13/23 Jim Frausto MD [address] [facility] [phone] [place] [address] Surgeon Colon and Rectal Surgery 11/21/23 Анна Robert, RN [address] [facility] [address] [place] [address] SHOP Outpatient Puppy Trainer 09/29/24 10/01/24 documented as of this encounter
--- OUTSIDE RECORDS SUMMARY | 2025-05-05 07:56 | XMS_ITS | Encounter Summary ---
Author Organization [facility] Address [address] [place] [address] Phone Care Team Providers Care Pencils Washer Name Role Phone Kenton Ricks MD Primary Care Provider + [phone] Kenton Ricks MD Primary Care Provider + [phone] Pebbles Nelson MD Unavailable [phone] Aylin Russ MD Unavailable [phone] Maricruz Ramirez NP Unavailable [phone] Joanen Lopez RN Unavailable Padmini Leatha Carter Unavailable Unavailable Ben Chahal MD PhD Unavailable +[phone] Chace Oliva MD Unavailable [phone] Giovanna Alexis MD Unavailable Taisha Suarez RN Unavailable Unavaila Sandra Aguirre MD Unavailable +[phone] Abby Higgins MD PhD Unavailable + Adrian Martinez MD Unavailable Vera Pérez Unavailable Jim Frausto MD Unavailable Анна Robert RN Unavailable +[phone] Encounter Details Date Type Department Care Team (Late st Contact Info) Description 02/20/2014 Orders Only [facility] Provider, Max, [address] [place] [address] Social History Tobacco Use Types Packs/Day Years Used Date Smoking Tobacco: Never Assessed Sex and Gender Information Value Date Recorded Sex Assigned at Not on file Legal Sex Male 12:58 AM MANAGER OF BROADCAST CONTENT Gender Identity Male 11/11/2018 10:31 AM CDT Sexual Orientation Straight 06/09/2019 5: 34 PM MANAGER OF BROADCAST CONTENT documented as of this encounter Plan of [...] 06/07/2023 06/07/2023 06/07/2023 12:46 PM MANAGER OF BROADCAST CONTENT COVID19 06/07/2023 06/07/2023 06/22/2023 3:06 AM MANAGER OF BROADCAST CONTENT COVID: Recovered Comment:Added based on recent COVID infection. 06/22/2023 06/22/2023 09/20/2023 3:05 AM C DT COVID: Suspected 07/24/2023 07/24/2023 07/24/2023 3:53 PM MANAGER OF BROADCAST CONTENT Diarrhea 07/30/2023 07/30/2023 08/13/2023 3:05 AM MANAGER OF BROADCAST CONTENT COVID: Suspected 08/30/2023 08/30/2023 08/30/2023 4:52 PM MANAGER OF BROADCAST CONTENT COVID: Suspected 10/12/2023 10/12/2023 10/12/2023 7:57 PM CDT Rhino/Enterovirus 10/12/2023 10/12/2023 10/26/2023 3:05 AM CDT COVID: Suspected 07/10/2024 07/10/2024 07/10/2024 4:53 PM MANAGER OF BROADCAST CONTENT COVID: Suspected Comment:07/16/2024 IP Review: no outstanding test, last RPP negative. Mary Tiwari RN 07/16/2024 07/16/2024 10:51 AM MANAGER OF BROADCAST CONTENT COVID19 Comment:07/16/2024 IP Review: added by RN, RPP negative. Mary Tiwari RN 07/16/2024 07/16/2024 07/16/2024 10:51 AM MANAGER OF BROADCAST CONTENT MRSA Comment:nasalMRSA Isolation [facility] 09/03/24 07/16/2024 08/15/2024 09/03/2024 6:[address] C. difficile suspected 07/19/2024 07/19/202407/19 2:34 PM MANAGER OF BROADCAST CONTENT COVID: Suspected 07/23/2024 07/23/2024 07/23/2024 11:28 PM MANAGER OF BROADCAST CONTENT C. difficile suspected 07/23/2024 07/24/202407/24 10:31 AM MANAGER OF BROADCAST CONTENT Norovirus suspected 07/23/2024 07/24/2024 07/24/19 9:37 AM MANAGER OF BROADCAST CONTENT VRE Comment:Contact Precautions (gown and gloves) - not eligible for IP review until 6 months after positive culture - Jerod QURESHI, CONY 10/01/24 07/24/2024 09/20/2024 03/19/2025 7:26 PM C DT COVID: Suspected 08/09/2024 08/09/2024 08/09/2024 9:40 AM MANAGER OF BROADCAST CONTENT Influenza, adult Comment:08/26/2024 IP Review: pt afebrile but on antipyretics. Needs 24 hours off antipyretics and symptoms significantly improved/resolved in order for isolation to be discontinued. Mary Tiwari RN 08/15/2024 08/15/2024 08/29/2024 3:06 AM MANAGER OF BROADCAST CONTENT Coronavirus, droplet 08/15/2024 08/15/202408/29/ 025 3:06 AM MANAGER OF BROADCAST CONTENT C. difficile suspected 09/19/2024 09/19/202409/20 3:05 AM [...] documented as of this encounter Care Teams Pencils Washer Relationship Specialty Start Date End Date Kenton Ricks MD PCP - General 08/14/16 Kenton Ricks MD PCP - General 09/17/08 08/13/16 Pebbles Nelson MD Referring Physician Cardiology 02/07/19 Aylin Russ MD [address] [facility] [address] [place] [address] Referring Physician Pulmonary Disease 02/07/19 Maricruz Ramirez NP [address] [facility] [address] [place] [address] Nurse Practitioner Cardiovascular Disease 09/25/21 Joanne Lopez, CONY Registered Nurse Pulmonary Disease 08/24/22 Leatha Cristina RMA Surgical Prehabilitation and Readiness (SPAR) Coordinator 09/01/22 01/02/23 Ben Chahal MD PhD 10 [facility] [address] 2 [place] [address] Medical Oncologist/Filling And Stapling Machine Operator Medical Oncology 10/05/22 Chace Oliva MD [address] [place] [address] Consulting Physician Infectious Diseases 12/22/2204/01 Giovanna Alexis MD [address] [place] [address] Radiation Oncologist Radiation Oncology 03/09/23 Taisha Suarez, private tutors and teachers Prehabilitation and Readiness (SPAR) Coordinator General Surgery 03/20/23 04/10/23 Sandra Ma MD [address] DIV IM MEDICAL ONCOLOGY, [address]A, 7B, [address] [place] [address] Consulting Physician Medical Oncology 04/25/23 05/09/23 Abby Higgins MD PhD [address] [facility] [address] DIV IM MEDICAL ONCOLOGY, [address] 7A, 7B, [address] [place] [address] Medical Oncologist/Filling And Stapling Machine Operator Medical Oncology 05/10/23 Adrian Martinez MD [address] [facility] [address] DIV SURG TRANSPLANT, [facility] [address] [place] [address] Surgical Oncologist Surgical Oncology 05/28/23 Vera Pérez PA [address] [place] [id number] [place] [address] Physician Credit Union Teller Colon and Rectal Surgery 09/13/23 Jim Frausto MD [address] [facility] [id number] [place] [address] Surgeon Colon and Rectal Surgery 11/21/23 Анна Robert, RN [address] [facility] [address] [place] [address] SHOP Outpatient Towerman 09/29/24 10/01/24 documented as of this encounter
--- OUTSIDE RECORDS SUMMARY | 2025-05-05 07:56 | XMS_ITS | Encounter Summary ---
Author Organization [facility] Address [address] [place] [address] Phone Care Team Providers Care Cap Maker Name Role Phone Kenton Ricks MD Primary Care Provider + [phone] Kenton Ricks MD Primary Care Provider + [phone] Pebbles Nelson MD Unavailable [phone] Aylin Russ MD Unavailable [phone] Maricruz Ramirez NP Unavailable [phone] Joanne Lopez RN Unavailable Padmini Leatha Carter Unavailable Unavailable Ben Chahal MD PhD Unavailable [phone] Chace Oliva MD Unavailable [phone] Giovanna Alexis MD Unavailable Taisha Suarez RN Unavailable Unavaila Sandra Aguirre MD Unavailable [phone] Abby Higgins MD PhD Unavailable + Adrian Martinez MD Unavailable Vera Pérez Unavailable Jim Frausto MD Unavailable [phone] Анна Robert RN Unavailable [phone] Encounter Details Date Type Department Care Team (Late st Contact Info) Description 05/08/2014 Orders Only [facility] Provider, Max, [address] [place] [address] Social History Tobacco Use Types Packs/Day Years Used Date Smoking Tobacco: Never Assessed Sex and Gender Information Value Date Recorded Sex Assigned at Not on file Legal Sex Male 12:58 AM OFFICE MACHINE PUNCH OPERATOR Gender Identity Male 11/11/2018 10:31 AM CDT Sexual Orientation Straight 06/09/2019 5: 34 PM OFFICE MACHINE PUNCH OPERATOR documented as of this encounter Plan [...] Suspected 06/07/2023 06/07/2023 06/07/2023 12:46 PM OFFICE MACHINE PUNCH OPERATOR COVID19 06/07/2023 06/07/2023 06/22/2023 3:06 AM OFFICE MACHINE PUNCH OPERATOR COVID: Recovered Comment:Added based on recent COVID infection. 06/22/2023 06/22/2023 09/20/2023 3:05 AM C DT COVID: Suspected 07/24/2023 07/24/2023 07/24/2023 3:53 PM OFFICE MACHINE PUNCH OPERATOR Diarrhea 07/30/2023 07/30/2023 08/13/2023 3:05 AM OFFICE MACHINE PUNCH OPERATOR COVID: Suspected 08/30/2023 08/30/2023 08/30/2023 4:52 PM OFFICE MACHINE PUNCH OPERATOR COVID: Suspected 10/12/2023 10/12/2023 10/12/2023 7:57 PM CDT Rhino/Enterovirus 10/12/2023 10/12/2023 10/26/2023 3:05 AM CDT COVID: Suspected 07/10/2024 07/10/2024 07/10/2024 4:53 PM OFFICE MACHINE PUNCH OPERATOR COVID: Suspected Comment:07/16/2024 IP Review: no outstanding test, last RPP negative. Mary Tiwari RN 07/16/2024 07/16/2024 10:51 AM OFFICE MACHINE PUNCH OPERATOR COVID19 Comment:07/16/2024 IP Review: added by RN, RPP negative. Mary Tiwari RN 07/16/2024 07/16/2024 07/16/2024 10:51 AM OFFICE MACHINE PUNCH OPERATOR MRSA Comment:nasalMRSA Isolation Jail 09/03/24 07/16/2024 08/15/2024 09/03/2024 6:[address] C. difficile suspected 07/19/2024 07/19/202407/19 2:34 PM OFFICE MACHINE PUNCH OPERATOR COVID: Suspected 07/23/2024 07/23/2024 07/23/2024 11:28 PM OFFICE MACHINE PUNCH OPERATOR C. difficile suspected 07/23/2024 07/24/202407/24 10:31 AM OFFICE MACHINE PUNCH OPERATOR Norovirus suspected 07/23/2024 07/24/2024 07/24/19 9:37 AM OFFICE MACHINE PUNCH OPERATOR VRE Comment:Contact Precautions (gown and gloves) - not eligible for IP review until 6 months after positive culture - Jerod QURESHI, CONY 10/01/24 07/24/2024 09/20/2024 03/19/2025 7:26 PM C DT COVID: Suspected 08/09/2024 08/09/2024 08/09/2024 9:40 AM OFFICE MACHINE PUNCH OPERATOR Influenza, adult Comment:08/26/2024 IP Review: pt afebrile but on antipyretics. Needs 24 hours off antipyretics and symptoms significantly improved/resolved in order for isolation to be discontinued. Mary Tiwari RN 08/15/2024 08/15/2024 08/29/2024 3:06 AM OFFICE MACHINE PUNCH OPERATOR Coronavirus, droplet 08/15/2024 08/15/202408/29/ 025 3:06 AM OFFICE MACHINE PUNCH OPERATOR C. difficile suspected 09/19/2024 09/19/202409/20 3:05 [...] documented as of this encounter Care Teams Cap Maker Relationship Specialty Start Date End Date Kenton Ricks MD PCP - General 08/14/16 Kenton Ricks MD PCP - General 09/17/08 08/13/16 Pebbles Nelson MD Referring Physician Cardiology 02/07/19 Aylin Russ MD [address] [facility] [address] [place] [address] Referring Physician Pulmonary Disease 02/07/19 Maricruz Ramirez NP [address] [facility] [address] [place] [address] Nurse Practitioner Cardiovascular Disease 09/25/21 Joanne Lopez, CONY Registered Nurse Pulmonary Disease 08/24/22 Leatha Cristina RMA Surgical Prehabilitation and Readiness (SPAR) Coordinator 09/01/22 01/02/23 Ben Chahal MD PhD 10 [facility] [address] 2 [place] [address] Medical Oncologist/Drapery And Upholstery Measurer Medical Oncology 10/05/22 Chace Oliva MD [address] [place] [address] Consulting Physician Infectious Diseases 12/22/2204/01 Giovanna Alexis MD [address] [place] [address] Radiation Oncologist Radiation Oncology 03/09/23 Taisha Suarez, belt loop cutter Prehabilitation and Readiness (SPAR) Coordinator General Surgery 03/20/23 04/10/23 Sandra Ma MD [address] DIV IM MEDICAL ONCOLOGY, [address]A, 7B, [address] [place] [address] Consulting Physician Medical Oncology 04/25/23 05/09/23 Abby Higgins MD PhD [address] [facility] [address] DIV IM MEDICAL ONCOLOGY, [address]A, 7B, [address]C [place] [address] Medical Oncologist/Drapery And Upholstery Measurer Medical Oncology 05/10/23 Adrian Martinez MD [address] [facility] [address] DIV SURG TRANSPLANT, [facility] [address] [place] [address] Surgical Oncologist Surgical Oncology 05/28/23 Vera Pérez PA [address] [place] [id number] [place] [address] Physician Rn Cvicu Colon and Rectal Surgery 09/13/23 Jim Frausto MD [address] [facility] [phone] [place] [address] Surgeon Colon and Rectal Surgery 11/21/23 Анна Robert, RN [address] [facility] [address] [place] [address] SHOP Outpatient Ad Writer 09/29/24 10/01/24 documented as of this encounter
--- OUTSIDE RECORDS SUMMARY | 2025-05-05 07:56 | XMS_ITS | Encounter Summary ---
Author Organization [facility] Address [address] [place] [address] Phone Care Team Providers Care Ager Operator Name Role Phone Kenton Ricks MD Primary Care Provider + [phone] Kenton Ricks MD Primary Care Provider + [phone] Pebbles Nelson MD Unavailable [phone] Aylin Russ MD Unavailable [phone] Maricruz Ramirez NP Unavailable [phone] Joanne Lopez RN Unavailable Padmini Leatha Carter Unavailable Unavailable Ben Chahal MD PhD Unavailable [phone] Chace Oliva MD Unavailable [phone] Giovanna Alexis MD Unavailable Taisha Suarez RN Unavailable Unavaila Sandra Aguirre MD Unavailable +[phone] Abby Higgins MD PhD Unavailable + Adrian Martinez MD Unavailable [phone] Vera Pérez Unavailable [phone] Jim Frausto MD Unavailable Анна Robert RN Unavailable [phone] Encounter Details Date Type Department Care Team (Late st Contact Info) Description 08/18/2014 Orders Only [facility] Provider, Max, [address] [place] [address] Social History Tobacco Use Types Packs/Day Years Used Date Smoking Tobacco: Never Assessed Sex and Gender Information Value Date Recorded Sex Assigned at Not on file Legal Sex Male 12:58 AM AMERICAN INDIAN STUDIES PROFESSOR Gender Identity Male 11/11/2018 10:31 AM CDT Sexual Orientation Straight 06/09/2019 5: 34 PM AMERICAN INDIAN STUDIES PROFESSOR documented as of this encounter Plan of [...] COVID: Suspected 06/07/2023 06/07/2023 06/07/2023 12:46 PM AMERICAN INDIAN STUDIES PROFESSOR COVID19 06/07/2023 06/07/2023 06/22/2023 3:06 AM AMERICAN INDIAN STUDIES PROFESSOR COVID: Recovered Comment:Added based on recent COVID infection. 06/22/2023 06/22/2023 09/20/2023 3:05 AM C DT COVID: Suspected 07/24/2023 07/24/2023 07/24/2023 3:53 PM AMERICAN INDIAN STUDIES PROFESSOR Diarrhea 07/30/2023 07/30/2023 08/13/2023 3:05 AM AMERICAN INDIAN STUDIES PROFESSOR COVID: Suspected 08/30/2023 08/30/2023 08/30/2023 4:52 PM AMERICAN INDIAN STUDIES PROFESSOR COVID: Suspected 10/12/2023 10/12/2023 10/12/2023 7:57 PM CDT Rhino/Enterovirus 10/12/2023 10/12/2023 10/26/2023 3:05 AM CDT COVID: Suspected 07/10/2024 07/10/2024 07/10/2024 4:53 PM AMERICAN INDIAN STUDIES PROFESSOR COVID: Suspected Comment:07/16/2024 IP Review: no outstanding test, last RPP negative. Mary Tiwari RN 07/16/2024 07/16/2024 10:51 AM AMERICAN INDIAN STUDIES PROFESSOR COVID19 Comment:07/16/2024 IP Review: added by RN, RPP negative. Mary Tiwari RN 07/16/2024 07/16/2024 07/16/2024 10:51 AM AMERICAN INDIAN STUDIES PROFESSOR MRSA Comment:nasalMRSA Isolation Half-Way 09/03/24 07/16/2024 08/15/2024 09/03/2024 6:[address] C. difficile suspected 07/19/2024 07/19/202407/19 2:34 PM AMERICAN INDIAN STUDIES PROFESSOR COVID: Suspected 07/23/2024 07/23/2024 07/23/2024 11:28 PM AMERICAN INDIAN STUDIES PROFESSOR C. difficile suspected 07/23/2024 07/24/202407/24 10:31 AM AMERICAN INDIAN STUDIES PROFESSOR Norovirus suspected 07/23/2024 07/24/2024 07/24/19 9:37 AM AMERICAN INDIAN STUDIES PROFESSOR VRE Comment:Contact Precautions (gown and gloves) - not eligible for IP review until 6 months after positive culture - Jerod QURESHI, CONY 10/01/24 07/24/2024 09/20/2024 03/19/2025 7:26 PM C DT COVID: Suspected 08/09/2024 08/09/2024 08/09/2024 9:40 AM AMERICAN INDIAN STUDIES PROFESSOR Influenza, adult Comment:08/26/2024 IP Review: pt afebrile but on antipyretics. Needs 24 hours off antipyretics and symptoms significantly improved/resolved in order for isolation to be discontinued. Mary Tiwari RN 08/15/2024 08/15/2024 08/29/2024 3:06 AM AMERICAN INDIAN STUDIES PROFESSOR Coronavirus, droplet 08/15/2024 08/15/202408/29/ 025 3:06 AM AMERICAN INDIAN STUDIES PROFESSOR C. difficile suspected 09/19/2024 09/19/202409/20 3:05 AM [...] documented as of this encounter Care Teams Ager Operator Relationship Specialty Start Date End Date Kenton Ricks MD PCP - General 08/14/16 Kenton Ricks MD PCP - General 09/17/08 08/13/16 Pebbles Nelson MD Referring Physician Cardiology 02/07/19 Aylin Russ MD 45[address] [facility] [address] [place] [address] Referring Physician Pulmonary Disease 02/07/19 Maricruz Ramirez NP [address] [facility] [address] [place] [address] Nurse Practitioner Cardiovascular Disease 09/25/21 Joanne Lopez, CONY Registered Nurse Pulmonary Disease 08/24/22 Leatha Cristina RMA Surgical Prehabilitation and Readiness (SPAR) Coordinator 09/01/22 01/02/23 Ben Chahal MD PhD 10 [facility] # 2 [place] [address] Medical Oncologist/Band Instrument Maker Medical Oncology 10/05/22 Chace Oliva MD [address] [place] [address] Consulting Physician Infectious Diseases 12/22/2204/01 Giovanna Alexis MD [address] [place] [address] Radiation Oncologist Radiation Oncology 03/09/23 Taisha Suarez, environmental advisor Prehabilitation and Readiness (SPAR) Coordinator General Surgery 03/20/23 04/10/23 Sandra Ma MD [address] DIV IM MEDICAL ONCOLOGY, [address]A, 7B, [address] [place] [address] Consulting Physician Medical Oncology 04/25/23 05/09/23 Abby Higgins MD PhD [address] [facility] [address] DIV IM MEDICAL ONCOLOGY, [address]A, 7B, [address] [place] [address] Medical Oncologist/Band Instrument Maker Medical Oncology 05/10/23 Adrian Martinez MD [address] [facility] [address] DIV SURG TRANSPLANT, [email or web address] [address] [place] [address] Surgical Oncologist Surgical Oncology 05/28/23 Vera Pérez PA [address] [place] [id number] [place] [address] Physician Power Tool Repairer Colon and Rectal Surgery 09/13/23 Jim Frausto MD [address] [facility] [phone] [place] [address] Surgeon Colon and Rectal Surgery 11/21/23 Анна Robert, RN [address] [facility] [address] [place] [address] SHOP Outpatient Weather Observer 09/29/24 10/01/24 documented as of this encounter
--- OUTSIDE RECORDS SUMMARY | 2025-05-05 07:56 | XMS_ITS | Encounter Summary ---
Author Organization [facility] Address [address] [place] [address] Phone Care Team Providers Care Avionics Systems Integration Specialist Name Role Phone Kenton Ricks MD Primary Care Provider + [phone] Pebbles Nelson MD Unavailable Aylin Russ MD Unavailable [phone] Maricruz Ramirez NP Unavailable [phone] Joanne Lopez RN Unavailable Padmini Leatha Carter Unavailable Unavailable Ben Chahal MD PhD Unavailable [phone] Chace Oliva MD Unavailable [phone] Giovanna Alexis MD Unavailable Taisha Suarez RN Unavailable Unavaila Sandra Aguirre MD Unavailable [phone] Abby Higgins MD PhD Unavailable + Adrian Martinez MD Unavailable [phone] Vera Pérez Unavailable [phone] Jim Frausto MD Unavailable [phone] Анна Robert RN Unavailable [phone] Encounter Details Date Type Department Care Team [...] week 10/17/2021 How often do you attend [facility] or yazdanism services? More than 4 times per year 10/17/2021 Do you belong to any clubs o r organizations such as sabianist groups, unions, fraternal or athletic groups, or [...] on file Legal Sex Male 12:58 AM DRUM BUILDER Gender Identity Male 11/11/2018 10:31 AM CDT Sexual Orientation Straight 06/09/2019 5: 34 PM DRUM BUILDER documented as of this encounter Plan of [...] COVID: Suspected 06/07/2023 06/07/2023 06/07/2023 12:46 PM DRUM BUILDER COVID19 06/07/2023 06/07/2023 06/22/2023 3:06 AM DRUM BUILDER COVID: Recovered Comment:Added based on recent COVID infection. 06/22/2023 06/22/2023 09/20/2023 3:05 AM C DT COVID: Suspected 07/24/2023 07/24/2023 07/24/2023 3:53 PM DRUM BUILDER Diarrhea 07/30/2023 07/30/2023 08/13/2023 3:05 AM DRUM BUILDER COVID: Suspected 08/30/2023 08/30/2023 08/30/2023 4:52 PM DRUM BUILDER COVID: Suspected 10/12/2023 10/12/2023 10/12/2023 7:57 PM CDT Rhino/Enterovirus 10/12/2023 10/12/2023 10/26/2023 3:05 AM CDT COVID: Suspected 07/10/2024 07/10/2024 07/10/2024 4:53 PM DRUM BUILDER COVID: Suspected Comment:07/16/2024 IP Review: no outstanding test, last RPP negative. Mary Tiwari RN 07/16/2024 07/16/202407/16/202 5 10:51 AM DRUM BUILDER COVID19 Comment:07/16/2024 IP Review: added by RN, CLAUDIO negative. Mary Tiwari RN 07/16/2024 07/16/2024 07/16/2024 10:51 AM DRUM BUILDER MRSA Comment:nasalMRSA Isolation Residential 09/03/24 07/16/2024 08/15/2024 09/03/2024 6:[address] C. difficile suspected 07/19/2024 07/19/202407/19 2:34 PM DRUM BUILDER COVID: Suspected 07/23/2024 07/23/2024 07/23/2024 11:28 PM DRUM BUILDER C. difficile suspected 07/23/2024 07/24/202407/24 10:31 AM DRUM BUILDER Norovirus suspected 07/23/2024 07/24/2024 07/24/19 9:37 AM DRUM BUILDER VRE Comment:Contact Precautions (gown and gloves) - not eligible for IP review until 6 months after positive culture - Jerod QURESHI, CONY 10/01/24 07/24/2024 09/20/2024 03/19/2025 7:26 PM C DT COVID: Suspected 08/09/2024 08/09/2024 08/09/2024 9:40 AM DRUM BUILDER Influenza, adult Comment:08/26/2024 IP Review: pt afebrile but on antipyretics. Needs 24 hours off antipyretics and symptoms significantly improved/resolved in order for isolation to be discontinued. Mary Tiwari RN 08/15/2024 08/15/2024 08/29/2024 3:06 AM DRUM BUILDER Coronavirus, droplet 08/15/2024 08/15/202408/29/ 025 3:06 AM DRUM BUILDER C. difficile suspected 09/19/2024 09/19/202409/20 3:05 AM [...] documented as of this encounter Care Teams Avionics Systems Integration Specialist Relationship Specialty Start Date End Date Kenton Ricks MD PCP - General 08/14/16 Pebbles Nelson MD Referring Physician Cardiology 02/07/19 Aylin Russ MD [address] [facility] [address] [place] [address] Referring Physician Pulmonary Disease 02/07/19 Maricruz Ramirez, RESIDENTIAL LIVING ASSISTANT [address] [place] [address] Nurse Practitioner Cardiovascular Disease 09/25/21 Joanne Lopez, RN Registered Nurse Pulmonary Disease 08/24/22 Leatha Cristina RMA Surgical Prehabilitation and Readiness (SPAR) Coordinator 09/01/22 01/02/23 Ben Chahal MD PhD 10 [facility] [address] 2 DIV [place] [address] Medical Oncologist/Game Protector Medical Oncology 10/05/22 Chace Oliva MD [address] [place] [address] Consulting Physician Infectious Diseases 12/22/2204/01 Giovanna Alexis MD [address] [place] [address] Radiation Oncologist Radiation Oncology 03/09/23 Taisha Suarez, career placement services counselor Prehabilitation and Readiness (SPAR) Coordinator General Surgery 03/20/23 04/10/23 Sandra Ma MD [address] DIV IM MEDICAL ONCOLOGY, [facility] 7A, 7B, [address] [place] [address] Consulting Physician Medical Oncology 04/25/23 05/09/23 Abby Higgins MD PhD [address] DIV IM MEDICAL ONCOLOGY, [facility] 7A, 7B, [address] [place] [address] Medical Oncologist/Game Protector Medical Oncology 05/10/23 Adrian Martinez MD [address] [facility] DIV SURG TRANSPLANT, [address] [place] [address] Surgical Oncologist Surgical Oncology 05/28/23 Vera Pérez PA [address] [place] [id number] [place] [address] Physician Direct Care Counselor Colon and Rectal Surgery 09/13/23 Jim Frausto MD [address] [facility] [phone] [place] [address] Surgeon Colon and Rectal Surgery 11/21/23 Анна Robert, RN 4590 [facility] [address]300 [place] [address] SHOP Outpatient Planer Operator / Grader 09/29/24 10/01/24 documented as of this encounter
--- OUTSIDE RECORDS SUMMARY | 2025-05-05 07:56 | XMS_ITS | Encounter Summary ---
Author Organization [facility] Address [address] [place] [address] Phone Care Team Providers Care Egg Factory Worker Name Role Phone Kenton Ricks MD Primary Care Provider + [phone] Kenton Ricks MD Primary Care Provider + [phone] Pebbles Nelson MD Unavailable +[phone] Aylin Russ MD Unavailable [phone] Maricruz Ramirez NP Unavailable [phone] Joanne Lopez RN Unavailable Padmini Leatha Carter Unavailable Unavailable Ben Chahal MD PhD Unavailable +[phone] Chace Oliva MD Unavailable +[phone] Giovanna Alexis MD Unavailable Taisha Suarez RN Unavailable Unavaila Sandra Aguirre MD Unavailable +[phone] Abby Higgins MD PhD Unavailable + Adrian Martinez MD Unavailable Vera Pérez Unavailable Jim Frausto MD Unavailable Анна Robert RN Unavailable [phone] Encounter Details Date Type Department Care Team (Late st Contact Info) Description 06/02/2014 Orders Only [facility] Provider, Max, [address] [place] [address] Social History Tobacco Use Types Packs/Day Years Used Date Smoking Tobacco: Never Assessed Sex and Gender Information Value Date Recorded Sex Assigned at Not on file Legal Sex Male 12:58 AM FIRER POWERHOUSE Gender Identity Male 11/11/2018 10:31 AM CDT Sexual Orientation Straight 06/09/2019 5: 34 PM FIRER POWERHOUSE documented as of this encounter Plan of [...] COVID: Suspected 06/07/2023 06/07/2023 06/07/2023 12:46 PM FIRER POWERHOUSE COVID19 06/07/2023 06/07/2023 06/22/2023 3:06 AM FIRER POWERHOUSE COVID: Recovered Comment:Added based on recent COVID infection. 06/22/2023 06/22/2023 09/20/2023 3:05 AM C DT COVID: Suspected 07/24/2023 07/24/2023 07/24/2023 3:53 PM FIRER POWERHOUSE Diarrhea 07/30/2023 07/30/2023 08/13/2023 3:05 AM FIRER POWERHOUSE COVID: Suspected 08/30/2023 08/30/2023 08/30/2023 4:52 PM FIRER POWERHOUSE COVID: Suspected 10/12/2023 10/12/2023 10/12/2023 7:57 PM CDT Rhino/Enterovirus 10/12/2023 10/12/2023 10/26/2023 3:05 AM CDT COVID: Suspected 07/10/2024 07/10/2024 07/10/2024 4:53 PM FIRER POWERHOUSE COVID: Suspected Comment:07/16/2024 IP Review: no outstanding test, last RPP negative. Mary Tiwari RN 07/16/2024 07/16/2024 10:51 AM FIRER POWERHOUSE COVID19 Comment:07/16/2024 IP Review: added by RN, RPP negative. Mary Tiwari RN 07/16/2024 07/16/2024 07/16/2024 10:51 AM FIRER POWERHOUSE MRSA Comment:nasalMRSA Isolation Detention 09/03/24 07/16/2024 08/15/2024 09/03/2024 6:[address] C. difficile suspected 07/19/2024 07/19/202407/19 2:34 PM FIRER POWERHOUSE COVID: Suspected 07/23/2024 07/23/2024 07/23/2024 11:28 PM FIRER POWERHOUSE C. difficile suspected 07/23/2024 07/24/202407/24 10:31 AM FIRER POWERHOUSE Norovirus suspected 07/23/2024 07/24/2024 07/24/19 9:37 AM FIRER POWERHOUSE VRE Comment:Contact Precautions (gown and gloves) - not eligible for IP review until 6 months after positive culture - Jerod QURESHI, CONY 10/01/24 07/24/2024 09/20/2024 03/19/2025 7:26 PM C DT COVID: Suspected 08/09/2024 08/09/2024 08/09/2024 9:40 AM FIRER POWERHOUSE Influenza, adult Comment:08/26/2024 IP Review: pt afebrile but on antipyretics. Needs 24 hours off antipyretics and symptoms significantly improved/resolved in order for isolation to be discontinued. Mary Tiwari RN 08/15/2024 08/15/2024 08/29/2024 3:06 AM FIRER POWERHOUSE Coronavirus, droplet 08/15/2024 08/15/202408/29/ 025 3:06 AM FIRER POWERHOUSE C. difficile suspected 09/19/2024 09/19/202409/20 3:05 AM [...] documented as of this encounter Care Teams Egg Factory Worker Relationship Specialty Start Date End Date Kenton Ricks MD PCP - General 08/14/16 Kenton Ricks MD PCP - General 09/17/08 08/13/16 Pebbles Nelson MD Referring Physician Cardiology 02/07/19 Aylin Russ MD [address] [facility] [address] [place] [address] Referring Physician Pulmonary Disease 02/07/19 Maricruz Ramirez NP [address] [facility] [address] [place] [address] Nurse Practitioner Cardiovascular Disease 09/25/21 Joanne Lopez, CONY Registered Nurse Pulmonary Disease 08/24/22 Leatha Cristina RMA Surgical Prehabilitation and Readiness (SPAR) Coordinator 09/01/22 01/02/23 Ben Chahal MD PhD [address] [facility] [address] [place] [address] Medical Oncologist/Electrical Unit Rebuilder Medical Oncology 10/05/22 Chace Oliva MD [address] [place] [address] Consulting Physician Infectious Diseases 12/22/2204/01 Giovanna Alexis MD [address] [place] [address] Radiation Oncologist Radiation Oncology 03/09/23 Taisha Suarez, cyber systems operations specialist Prehabilitation and Readiness (SPAR) Coordinator General Surgery 03/20/23 04/10/23 Sandra Ma MD [address] DIV IM MEDICAL ONCOLOGY, [address]A, 7B, [address] [place] [address] Consulting Physician Medical Oncology 04/25/23 05/09/23 Abby Higgins MD PhD [address] [facility] [address] DIV IM MEDICAL ONCOLOGY, [address] 7A, 7B, [address]C [place] [address] Medical Oncologist/Electrical Unit Rebuilder Medical Oncology 05/10/23 Adrian Martinez MD [address] [facility] [address] DIV SURG TRANSPLANT, [facility] [address] [place] [address] Surgical Oncologist Surgical Oncology 05/28/23 Vera Pérez PA [address] [place] [id number] [place] [address] Physician Superintendent Division Colon and Rectal Surgery 09/13/23 Jim Frausto MD [address] [facility] [phone] [place] [address] Surgeon Colon and Rectal Surgery 11/21/23 Анна Robert, RN [address] [facility] [address] [place] [address] SHOP Outpatient Attic Fans Mechanic 09/29/24 10/01/24 documented as of this encounter
--- OUTSIDE RECORDS SUMMARY | 2025-05-05 07:56 | XMS_ITS | Clinical Summary ---
Author Organization [facility] Address [address] [place] [address] Care Team Providers Care Cath Lab Radiological Technologist Name Role Phone Kenton Ricks MD Primary Care Provider [phone] Source Comments [facility],non-owned Affiliates and Associated Physician Practices is amultiple site organization consisting of ambulatory clinics and hospital sitesin [place], [place], [place] and [place]. This disclosure is being madepursuant to the Care Everywhere program and may not contain all information available regarding this patient. Last updated 18.[facility] Medications * Be aware that medications may [...] on file Legal Sex Male 6:18 AM BUYER Gender Identity Not on file Sexual Orientation Not on file Last Filed Vital Signs Vital Sign Reading Time Taken Comments Blood Pressure 126/67 07/06/2017 11:17 AM BUYER Pulse 60 07/06/2017 11:17 AM BUYER Temperature 36.4 C (97.5 F) 07/06/2017 11:17 AM BUYER Respiratory Rate 16 06/29/2017 12:33 PM BUYER Oxygen Saturation 99% 07/06/2017 11:17 AM BUYER Inhaled Oxygen Concentration - - Weight 115.7 kg (255 lb) 07/06/2017 11:17 AM BUYER Height 175.3 cm (5' 9) 07/06/2017 11:17 AM BUYER Body Mass Index 37.66 07/06/2017 11:17 AM BUYER Plan of Treatment Health Maintenance Due Date Last Done Comments COLOGUARD (AGES 45-75) - COLON CA SCREENING 1955 CT COLONOGRAPHY - COLON CA SCREENING 1955 FIT - COLON CA SCREENING 1955 FLEX SIG - COLON CA SCREENING 1955 LIPID TESTING 1955 HEPATITIS C SCREENING 03/25/1973 DTAP/TDAP/TD VACCINES (1 - Tdap) 1974 PNEUMOCOCCAL VACCINE 50+ (1 of 1 - PCV) 2005 ZOSTER VACCINE (1 of 2) 2005 DEPRESSION SCREENING 07/02/2024 COVID-19 VACCINE (1 - season) 2025 INFLUENZA VACCINE (#1) 2025 , 04/01/2017, 06/14/2016, Additional history exists Respiratory Syncytial Virus (RSV) Vaccine Pt: or over 60 yrs (1 - 1-dose 75+ series) 2030 COLON MONITORING 07/23/2033 07/23/2023 COLONOSCOPY - COLON CA SCREENING 07/23/2033 07/23/2023 Colorectal Cancer Screening 07/23/2033 HEPATITIS B VACCINE Aged Out No longe [...] age to complete this topic Care Teams Cath Lab Radiological Technologist Relationship Specialty Start Date End Date Kenton Ricks MD [address] [place] [address] PCP - General Family Medicine 08/20/15
--- OUTSIDE RECORDS SUMMARY | 2025-05-05 07:56 | XMS_ITS | Encounter Summary ---
Author Organization [facility] Address [address] [place] [address] Phone Care Team Providers Care Field Services Analyst Name Role Phone Kenton Ricks MD Primary Care Provider + [phone] Kenton Ricks MD Primary Care Provider + [phone] Pebbles Nelson MD Unavailable [phone] Aylin Russ MD Unavailable [phone] Maricruz Ramirez NP Unavailable [phone] Joanne Lopez RN Unavailable Padmini Leatha Carter Unavailable Unavailable Ben Chahal MD PhD Unavailable [phone] Chace Oliva MD Unavailable [phone] Giovanna Alexis MD Unavailable Taisha Suarez RN Unavailable Unavaila Sandra Aguirre MD Unavailable [phone] Abby Higgins MD PhD Unavailable + Adrian Martinez MD Unavailable Vera Pérez Unavailable [phone] Jim Frausto MD Unavailable Анна Robert RN Unavailable Encounter Details Date Type Department Care Team (Late st Contact Info) Description 11/30/2014 Orders Only [facility] Provider, Max, [address] [place] [address] Social History Tobacco Use Types Packs/Day Years Used Date Smoking Tobacco: Never Assessed Sex and Gender Information Value Date Recorded Sex Assigned at Not on file Legal Sex Male 12:58 AM AUTO BODY REPAIR TEACHER Gender Identity Male 11/11/2018 10:31 AM CDT Sexual Orientation Straight 06/09/2019 5: 34 PM AUTO BODY REPAIR TEACHER documented as of this encounter Plan [...] COVID: Suspected 06/07/2023 06/07/2023 06/07/2023 12:46 PM AUTO BODY REPAIR TEACHER COVID19 06/07/2023 06/07/2023 06/22/2023 3:06 AM AUTO BODY REPAIR TEACHER COVID: Recovered Comment:Added based on recent COVID infection. 06/22/2023 06/22/2023 09/20/2023 3:05 AM C DT COVID: Suspected 07/24/2023 07/24/2023 07/24/2023 3:53 PM AUTO BODY REPAIR TEACHER Diarrhea 07/30/2023 07/30/2023 08/13/2023 3:05 AM AUTO BODY REPAIR TEACHER COVID: Suspected 08/30/2023 08/30/2023 08/30/2023 4:52 PM AUTO BODY REPAIR TEACHER COVID: Suspected 10/12/2023 10/12/2023 10/12/2023 7:57 PM CDT Rhino/Enterovirus 10/12/2023 10/12/2023 10/26/2023 3:05 AM CDT COVID: Suspected 07/10/2024 07/10/2024 07/10/2024 4:53 PM AUTO BODY REPAIR TEACHER COVID: Suspected Comment:07/16/2024 IP Review: no outstanding test, last RPP negative. Mary Tiwari RN 07/16/2024 07/16/2024 10:51 AM AUTO BODY REPAIR TEACHER COVID19 Comment:07/16/2024 IP Review: added by RN, RPP negative. Mary Tiwari RN 07/16/2024 07/16/2024 07/16/2024 10:51 AM AUTO BODY REPAIR TEACHER MRSA Comment:nasalMRSA Isolation Half-Way 09/03/24 07/16/2024 08/15/2024 09/03/2024 6:[address] C. difficile suspected 07/19/2024 07/19/202407/19 2:34 PM AUTO BODY REPAIR TEACHER COVID: Suspected 07/23/2024 07/23/2024 07/23/2024 11:28 PM AUTO BODY REPAIR TEACHER C. difficile suspected 07/23/2024 07/24/202407/24 10:31 AM AUTO BODY REPAIR TEACHER Norovirus suspected 07/23/2024 07/24/2024 07/24/19 9:37 AM AUTO BODY REPAIR TEACHER VRE Comment:Contact Precautions (gown and gloves) - not eligible for IP review until 6 months after positive culture - Jerod QURESHI, CONY 10/01/24 07/24/2024 09/20/2024 03/19/2025 7:26 PM C DT COVID: Suspected 08/09/2024 08/09/2024 08/09/2024 9:40 AM AUTO BODY REPAIR TEACHER Influenza, adult Comment:08/26/2024 IP Review: pt afebrile but on antipyretics. Needs 24 hours off antipyretics and symptoms significantly improved/resolved in order for isolation to be discontinued. Mary Tiwari RN 08/15/2024 08/15/2024 08/29/2024 3:06 AM AUTO BODY REPAIR TEACHER Coronavirus, droplet 08/15/2024 08/15/202408/29/ 025 3:06 AM AUTO BODY REPAIR TEACHER C. difficile suspected 09/19/2024 09/19/202409/20 3:05 [...] documented as of this encounter Care Teams Field Services Analyst Relationship Specialty Start Date End Date Kenton Ricks MD PCP - General 08/14/16 Kenton Ricks MD PCP - General 09/17/08 08/13/16 Pebbles Nelson MD Referring Physician Cardiology 02/07/19 Aylin Russ MD [address] [facility] [address] [place] [address] Referring Physician Pulmonary Disease 02/07/19 Maricruz Ramirez NP [address] [facility] [address] [place] [address] Nurse Practitioner Cardiovascular Disease 09/25/21 Joanne Lopez, [place] Registered Nurse Pulmonary Disease 08/24/22 Leatha Cristina RMA Surgical Prehabilitation and Readiness (SPAR) Coordinator 09/01/22 01/02/23 Ben Chahal MD PhD [address] [facility] [address] [place] [address] Medical Oncologist/Commodity Lead Medical Oncology 10/05/22 Chace Oliva MD [address] [place] [address] Consulting Physician Infectious Diseases 12/22/2204/01 Giovanna Alexis MD [address] [place] [address] Radiation Oncologist Radiation Oncology 03/09/23 Taisha Suarez, subway repair supervisor Prehabilitation and Readiness (SPAR) Coordinator General Surgery 03/20/23 04/10/23 Sandra Ma MD [address] DIV IM MEDICAL ONCOLOGY, [address]A, [address]B, [address] [place] [address] Consulting Physician Medical Oncology 04/25/23 05/09/23 Abby Higgins MD PhD [address] [facility] [address] DIV IM MEDICAL ONCOLOGY, [address]A, 7B, [address] [place] [address] Medical Oncologist/Commodity Lead Medical Oncology 05/10/23 Adrian Martinez MD [address] [facility] [address] DIV SURG TRANSPLANT, [facility] [address] [place] [address] Surgical Oncologist Surgical Oncology 05/28/23 Vera Pérez PA [address] [id number] [place] [address] Physician Computer Technical Specialist Colon and Rectal Surgery 09/13/23 Jim Frausto MD [address] [facility] [phone] [place] [address] Surgeon Colon and Rectal Surgery 11/21/23 Анна Robert, RN [address] [facility] [address] [place] [address] SHOP Outpatient Electric Motors Salesperson 09/29/24 10/01/24 documented as of this encounter
--- OUTSIDE RECORDS SUMMARY | 2025-05-05 07:56 | XMS_ITS | Encounter Summary ---
Author Organization [facility] Address [address] [place] [address] Phone Care Team Providers Care Road Tester Name Role Phone Kenton Ricks MD Primary Care Provider + [phone] Kenton Ricks MD Primary Care Provider + [phone] Pebbles Nelson MD Unavailable Aylin Russ MD Unavailable +[phone] Maricruz Ramirez NP Unavailable [phone] Joanne Lopez RN Unavailable Padmini Leatah Carter Unavailable Unavailable Ben Chahal MD PhD Unavailable [phone] Chace Oliva MD Unavailable +[phone] Giovanna Alexis MD Unavailable Taisha Suarez RN Unavailable Unavaila Sandra Aguirre MD Unavailable [phone] Abby Higgins MD PhD Unavailable + Adrian Martinez MD Unavailable Vera Pérez Unavailable [phone] Jim Frausto MD Unavailable Анна Robert RN Unavailable [phone] Encounter Details Date Type Department Care Team (Late st Contact Info) Description 09/01/2014 Orders Only [facility] Provider, Max, [address] [place] [address] Social History Tobacco Use Types Packs/Day Years Used Date Smoking Tobacco: Never Assessed Sex and Gender Information Value Date Recorded Sex Assigned at Not on file Legal Sex Male 12:58 AM MINE WIRER Gender Identity Male 11/11/2018 10:31 AM CDT Sexual Orientation Straight 06/09/2019 5: 34 PM MINE WIRER documented as of this encounter Plan of [...] COVID: Suspected 06/07/2023 06/07/2023 06/07/2023 12:46 PM MINE WIRER COVID19 06/07/2023 06/07/2023 06/22/2023 3:06 AM MINE WIRER COVID: Recovered Comment:Added based on recent COVID infection. 06/22/2023 06/22/2023 09/20/2023 3:05 AM C DT COVID: Suspected 07/24/2023 07/24/2023 07/24/2023 3:53 PM MINE WIRER Diarrhea 07/30/2023 07/30/2023 08/13/2023 3:05 AM MINE WIRER COVID: Suspected 08/30/2023 08/30/2023 08/30/2023 4:52 PM MINE WIRER COVID: Suspected 10/12/2023 10/12/2023 10/12/2023 7:57 PM CDT Rhino/Enterovirus 10/12/2023 10/12/2023 10/26/2023 3:05 AM CDT COVID: Suspected 07/10/2024 07/10/2024 07/10/2024 4:53 PM MINE WIRER COVID: Suspected Comment:07/16/2024 IP Review: no outstanding test, last RPP negative. Mary Tiwari RN 07/16/2024 07/16/2024 10:51 AM MINE WIRER COVID19 Comment:07/16/2024 IP Review: added by RN, RPP negative. Mary Tiwari RN 07/16/2024 07/16/2024 07/16/2024 10:51 AM MINE WIRER MRSA Comment:nasalMRSA Isolation Long Term 09/03/24 07/16/2024 08/15/2024 09/03/2024 6:[address] C. difficile suspected 07/19/2024 07/19/202407/19 2:34 PM MINE WIRER COVID: Suspected 07/23/2024 07/23/2024 07/23/2024 11:28 PM MINE WIRER C. difficile suspected 07/23/2024 07/24/202407/24 10:31 AM MINE WIRER Norovirus suspected 07/23/2024 07/24/2024 07/24/19 9:37 AM MINE WIRER VRE Comment:Contact Precautions (gown and gloves) - not eligible for IP review until 6 months after positive culture - Jerod QURESHI, CONY 10/01/24 07/24/2024 09/20/2024 03/19/2025 7:26 PM C DT COVID: Suspected 08/09/2024 08/09/2024 08/09/2024 9:40 AM MINE WIRER Influenza, adult Comment:08/26/2024 IP Review: pt afebrile but on antipyretics. Needs 24 hours off antipyretics and symptoms significantly improved/resolved in order for isolation to be discontinued. Mary Tiwari RN 08/15/2024 08/15/2024 08/29/2024 3:06 AM MINE WIRER Coronavirus, droplet 08/15/2024 08/15/202408/29/ 025 3:06 AM MINE WIRER C. difficile suspected 09/19/2024 09/19/202409/20 3:05 AM [...] documented as of this encounter Care Teams Road Tester Relationship Specialty Start Date End Date Kenton Ricks MD PCP - General 08/14/16 Kentno Ricks MD PCP - General 09/17/08 08/13/16 Pebbles Nelson MD Referring Physician Cardiology 02/07/19 Aylin Russ MD [address] [facility] [address] [place] [address] Referring Physician Pulmonary Disease 02/07/19 Maricruz Ramirez NP [address] [facility] [address] [place] [address] Nurse Practitioner Cardiovascular Disease 09/25/21 Joanne Lopez, [place] Registered Nurse Pulmonary Disease 08/24/22 Leatha Cristina RMA Surgical Prehabilitation and Readiness (SPAR) Coordinator 09/01/22 01/02/23 Ben Chahal MD PhD [address] [facility] [address] [place] [address] Medical Oncologist/Balance Recesser Medical Oncology 10/05/22 Chace Oliva MD [address] [place] [address] Consulting Physician Infectious Diseases 12/22/2204/01 Giovanna Alexis MD [address] [place] [address] Radiation Oncologist Radiation Oncology 03/09/23 Taisha Suarez, torsion spring coiling machine setter Prehabilitation and Readiness (SPAR) Coordinator General Surgery 03/20/23 04/10/23 Sandra Ma MD [address] DIV IM MEDICAL ONCOLOGY, [address]A, 7B, [address] [place] [address] Consulting Physician Medical Oncology 04/25/23 05/09/23 Abby Higgins MD PhD [address] [facility] [address] DIV IM MEDICAL ONCOLOGY, [address]A, 7B, [address] [place] [address] Medical Oncologist/Balance Recesser Medical Oncology 05/10/23 Adrian Martinez MD [address] [facility] [address] DIV SURG TRANSPLANT, [facility] [address] [place] [address] Surgical Oncologist Surgical Oncology 05/28/23 Vera Pérez PA [address] [place] [id number] [place] [address] Physician Inspector Penetrant Colon and Rectal Surgery 09/13/23 Jim Frausto MD [address] [facility] [phone] [place] [address] Surgeon Colon and Rectal Surgery 11/21/23 Анна Robert, RN [address] [facility] [address] [place] [address] SHOP Outpatient Plant Taxonomist 09/29/24 10/01/24 documented as of this encounter
--- OUTSIDE RECORDS SUMMARY | 2025-05-05 07:56 | XMS_ITS | Encounter Summary ---
Author Organization [facility] Address [address] [place] [address] Phone Care Team Providers Care Database Operator Name Role Phone Kenton Ricks MD Primary Care Provider + [phone] Kenton Ricks MD Primary Care Provider + [phone] Pebbles Nelson MD Unavailable [phone] Aylin Russ MD Unavailable [phone] Maricruz Ramirez NP Unavailable [phone] Joanne Lopez RN Unavailable Padmini Leatha Carter Unavailable Unavailable Ben Chahal MD PhD Unavailable [phone] Chace Oliva MD Unavailable [phone] Giovanna Alexis MD Unavailable Taisha Suarez RN Unavailable Unavaila Sandra Aguirre MD Unavailable +[phone] Abby iHggins MD PhD Unavailable + Adrian Martinez MD Unavailable Vera Pérez Unavailable Jim Frausto MD Unavailable [phone] Анна Robert RN Unavailable [phone] Encounter Details Date Type Department Care Team (Late st Contact Info) Description 02/25/2014 Orders Only [facility] Provider, Max, [address] [place] [address] Social History Tobacco Use Types Packs/Day Years Used Date Smoking Tobacco: Never Assessed Sex and Gender Information Value Date Recorded Sex Assigned at Not on file Legal Sex Male 12:58 AM SALES WAREHOUSE DRIVER Gender Identity Male 11/11/2018 10:31 AM CDT Sexual Orientation Straight 06/09/2019 5: 34 PM SALES WAREHOUSE DRIVER documented as of this encounter Plan [...] COVID: Suspected 06/07/2023 06/07/2023 06/07/2023 12:46 PM SALES WAREHOUSE DRIVER COVID19 06/07/2023 06/07/2023 06/22/2023 3:06 AM SALES WAREHOUSE DRIVER COVID: Recovered Comment:Added based on recent COVID infection. 06/22/2023 06/22/2023 09/20/2023 3:05 AM C DT COVID: Suspected 07/24/2023 07/24/2023 07/24/2023 3:53 PM SALES WAREHOUSE DRIVER Diarrhea 07/30/2023 07/30/2023 08/13/2023 3:05 AM SALES WAREHOUSE DRIVER COVID: Suspected 08/30/2023 08/30/2023 08/30/2023 4:52 PM SALES WAREHOUSE DRIVER COVID: Suspected 10/12/2023 10/12/2023 10/12/2023 7:57 PM CDT Rhino/Enterovirus 10/12/2023 10/12/2023 10/26/2023 3:05 AM CDT COVID: Suspected 07/10/2024 07/10/2024 07/10/2024 4:53 PM SALES WAREHOUSE DRIVER COVID: Suspected Comment:07/16/2024 IP Review: no outstanding test, last RPP negative. Mary Tiwari RN 07/16/2024 07/16/2024 10:51 AM SALES WAREHOUSE DRIVER COVID19 Comment:07/16/2024 IP Review: added by RN, RPP negative. Mary Tiwari RN 07/16/2024 07/16/2024 07/16/2024 10:51 AM SALES WAREHOUSE DRIVER MRSA Comment:nasalMRSA Isolation Skilled Nursing 09/03/24 07/16/2024 08/15/2024 09/03/2024 6:[address] C. difficile suspected 07/19/2024 07/19/202407/19 2:34 PM SALES WAREHOUSE DRIVER COVID: Suspected 07/23/2024 07/23/2024 07/23/2024 11:28 PM SALES WAREHOUSE DRIVER C. difficile suspected 07/23/2024 07/24/202407/24 10:31 AM SALES WAREHOUSE DRIVER Norovirus suspected 07/23/2024 07/24/2024 07/24/19 9:37 AM SALES WAREHOUSE DRIVER VRE Comment:Contact Precautions (gown and gloves) - not eligible for IP review until 6 months after positive culture - Jerod QURESHI, CONY 10/01/24 07/24/2024 09/20/2024 03/19/2025 7:26 PM C DT COVID: Suspected 08/09/2024 08/09/2024 08/09/2024 9:40 AM SALES WAREHOUSE DRIVER Influenza, adult Comment:08/26/2024 IP Review: pt afebrile but on antipyretics. Needs 24 hours off antipyretics and symptoms significantly improved/resolved in order for isolation to be discontinued. Mary Tiwari RN 08/15/2024 08/15/2024 08/29/2024 3:06 AM SALES WAREHOUSE DRIVER Coronavirus, droplet 08/15/2024 08/15/202408/29/ 025 3:06 AM SALES WAREHOUSE DRIVER C. difficile suspected 09/19/2024 09/19/202409/20 3:05 [...] documented as of this encounter Care Teams Database Operator Relationship Specialty Start Date End Date Kenton Ricks MD PCP - General 08/14/16 Kenton Ricks MD PCP - General 09/17/08 08/13/16 Pebbles Nelson MD Referring Physician Cardiology 02/07/19 Aylin Russ MD [address] [facility] [address] [place] [address] Referring Physician Pulmonary Disease 02/07/19 Maricruz Ramirez NP [address] [facility] [address] [place] [address] Nurse Practitioner Cardiovascular Disease 09/25/21 Joanne Lopez, CONY Registered Nurse Pulmonary Disease 08/24/22 Leatha Cristina RMA Surgical Prehabilitation and Readiness (SPAR) Coordinator 09/01/22 01/02/23 Ben Chahal MD PhD [address] [facility] [address] [place] [address] Medical Oncologist/Nurse Orthopedic Medical Oncology 10/05/22 Chace Oliva MD [address] [place] [address] Consulting Physician Infectious Diseases 12/22/2204/01 Giovanna Alexis MD [address] [place] [address] Radiation Oncologist Radiation Oncology 03/09/23 Taisha Suarez, machine slat basket maker Prehabilitation and Readiness (SPAR) Coordinator General Surgery 03/20/23 04/10/23 Sandra Ma MD [address] DIV IM MEDICAL ONCOLOGY, [address], [address], [address] [place] [address] Consulting Physician Medical Oncology 04/25/23 05/09/23 Abby Higgins MD PhD [address] [facility] [address] DIV IM MEDICAL ONCOLOGY, [address]A, 7B, [address] [place] [address] Medical Oncologist/Nurse Orthopedic Medical Oncology 05/10/23 Adrian Martinez MD [address] [facility] [address] DIV SURG TRANSPLANT, [facility] [address] [place] [address] Surgical Oncologist Surgical Oncology 05/28/23 Vera Pérez PA [address] [phone] [place] [address] Physician Watch Technician Colon and Rectal Surgery 09/13/23 Jim Frausto MD [address] [facility] [phone] [place] [address] Surgeon Colon and Rectal Surgery 11/21/23 Анна Robert, RN [address] [facility] [address] [place] [address] SHOP Outpatient Fiber Designer 09/29/24 10/01/24 documented as of this encounter
== END 2025-05-05 07:49 | disposition home or self-care (01) ==
LOC: ANHIMG 07:49
PROVIDERS: PCP Family Medicine; Visit Provider Nurse Practitioner
DX: R79.89 Other specified abnormal findings of blood chemistry (principal); K76.0 Fatty (change of) liver, not elsewhere classified; R10.13 Epigastric pain
CPT/HCPCS: 76705; 93976

== ENCOUNTER 2025-06-04 09:44 | Outpatient (CLI) | payer MEDICARE, MEDICAID, SELFPAY ==
[2025-06-04 10:16] LABS: Hematocrit 43.1 % (42.0-52.0); Hemoglobin 13.7 g/dL (14.0-18.0); Mean Corpuscular HGB Conc 31.8 g/dl (32-36); Mean Corpuscular Hemoglobin 28.4 pg (26-34); Mean Corpuscular Volume 89.2 fl (80-100); Platelet Count Result 169 k/mm3 (150-375); Red Blood Count 4.83 M/mm3 (4.6-6.20); White Blood Count 5.6 K/mm3 (4.5-10.0)
[2025-06-04 10:32] LABS: Alanine Aminotransferase 90 U/L (6-50); Albumin Level 4.5 g/dL (3.5-5.1); Alkaline Phosphatase 629 U/L (38-126); Anion Gap 6 mmol/L (4-12); Aspartate Amino Transferase 63 U/L (17-59); Bilirubin,Total 0.8 mg/dL (0.2-1.3); Blood Urea Nitrogen 20 mg/dL (9-20); CRP 1.4 mg/dL (<1.0); Calcium 9.9 mg/dL (8.4-10.2); Carbon Dioxide 28 mmol/L (22-30); Chloride 107 mmol/L (98-107); Estimated Glomerular Filt Rate > 60; Glucose 113 mg/dL (65-110); Lipase 27 U/L (23-300); Potassium 4.2 mmol/L (3.4-5.0); Sodium 141 mmol/L (137-145); Total Protein 8.3 g/dL (6.3-8.2)
[2025-06-04 10:36] LABS: Immunoglobulin G 976 mg/dL (700-1600)
--- OUTSIDE RECORDS SUMMARY | 2025-06-04 10:36 | XMS_ITS | Encounter Summary ---
Author Organization [facility] Address [address] [place] [address] Phone Care Team Providers Care Diamond Blender Name Role Phone Kenton Ricks MD Primary Care Provider + [phone] Pebbles Nelson MD Unavailable [phone] Aylin Russ MD Unavailable [phone] Maricruz Ramirez NP Unavailable [phone] Joanne Lopez RN Unavailable Padmini Leatha Carter Unavailable Unavailable Ben Chahal MD PhD Unavailable +[phone] Chace Oliva MD Unavailable [phone] Giovanna Alexis MD Unavailable Taisha Suarez RN Unavailable Unavaila Sandra Aguirre MD Unavailable [phone] Abby Higgins MD PhD Unavailable + Adrian Martinez MD Unavailable [phone] Vera Pérez Unavailable Jim Frausto MD Unavailable [phone] Анна Robert RN Unavailable [phone] Encounter Details Date Type Department Care Team (Late st Contact Info) Description 09/23/2018 Telephone [facility] Cardiology [address] [facility] 8th [place] [address] [place] [address] Pebbles Nelson MD [address] [facility] [address] [place] [address] Social History Tobacco Use Types Packs/Day Years Used Date Smoking Tobacco: Former Smokeless Tobacco: Never Alcohol Use Standard Drinks/Week Comments Yes 0 (1 standard drink = 0.6 oz pur e alcohol) Occassional Sex and Gender Information Value Date Recorded Sex Assigned at Not on file Legal Sex Male 12:58 AM AUDIO VISUAL SECRETARY Gender Identity Male 11/11/2018 10:31 AM CDT Sexual Orientation Straight 06/09/2019 5: 34 PM AUDIO VISUAL SECRETARY documented as of this encounter Plan of [...] COVID: Suspected 06/07/2023 06/07/2023 06/07/2023 12:46 PM AUDIO VISUAL SECRETARY COVID19 06/07/2023 06/07/2023 06/22/2023 3:06 AM AUDIO VISUAL SECRETARY COVID: Recovered Comment:Added based on recent COVID infection. 06/22/2023 06/22/2023 09/20/2023 3:05 AM C DT COVID: Suspected 07/24/2023 07/24/2023 07/24/2023 3:53 PM AUDIO VISUAL SECRETARY Diarrhea 07/30/2023 07/30/2023 08/13/2023 3:05 AM AUDIO VISUAL SECRETARY COVID: Suspected 08/30/2023 08/30/2023 08/30/2023 4:52 PM AUDIO VISUAL SECRETARY COVID: Suspected 10/12/2023 10/12/2023 10/12/2023 7:57 PM CDT Rhino/Enterovirus 10/12/2023 10/12/2023 10/26/2023 3:05 AM CDT COVID: Suspected 07/10/2024 07/10/2024 07/10/2024 4:53 PM AUDIO VISUAL SECRETARY COVID: Suspected Comment:07/16/2024 IP Review: no outstanding test, last RPP negative. Mary Tiwari RN 07/16/2024 07/16/2024 10:51 AM AUDIO VISUAL SECRETARY COVID19 Comment:07/16/2024 IP Review: added by RN, RPP negative. Mary Tiwari RN 07/16/2024 07/16/2024 07/16/2024 10:51 AM AUDIO VISUAL SECRETARY MRSA Comment:nasalMRSA Isolation Group Home 09/03/24 07/16/2024 08/15/2024 09/03/2024 6:[address] C. difficile suspected 07/19/2024 07/19/202407/19 2:34 PM AUDIO VISUAL SECRETARY COVID: Suspected 07/23/2024 07/23/2024 07/23/2024 11:28 PM AUDIO VISUAL SECRETARY C. difficile suspected 07/23/2024 07/24/202407/24 10:31 AM AUDIO VISUAL SECRETARY Norovirus suspected 07/23/2024 07/24/2024 07/24/19 9:37 AM AUDIO VISUAL SECRETARY VRE Comment:Contact Precautions (gown and gloves) - not eligible for IP review until 6 months after positive culture - Jerod QURESHI, RN 10/01/24 07/24/2024 09/20/2024 03/19/2025 7:26 PM C DT COVID: Suspected 08/09/2024 08/09/2024 08/09/2024 9:40 AM AUDIO VISUAL SECRETARY Influenza, adult Comment:08/26/2024 IP Review: pt afebrile but on antipyretics. Needs 24 hours off antipyretics and symptoms significantly improved/resolved in order for isolation to be discontinued. Mary Tiwari RN 08/15/2024 08/15/2024 08/29/2024 3:06 AM AUDIO VISUAL SECRETARY Coronavirus, droplet 08/15/2024 08/15/2024 025 3:06 AM AUDIO VISUAL SECRETARY C. difficile suspected 09/19/2024 09/19/202409/20 3:05 AM [...] documented as of this encounter Care Teams Diamond Blender Relationship Specialty Start Date End Date Kenton Ricks MD PCP - General 08/14/16 Pebbles Nelson MD Referring Physician Cardiology 02/07/19 Aylin Russ MD [address] [facility] [address] [place] [address] Referring Physician Pulmonary Disease 02/07/19 Maricruz Ramirez MANAGER UNION [address] [facility] [address] [place] [address] Nurse Practitioner Cardiovascular Disease 09/25/21 Joanne Lopez, [place] Registered Nurse Pulmonary Disease 08/24/22 Leatha Cristina RMA Surgical Prehabilitation and Readiness (SPAR) Coordinator 09/01/22 01/02/23 Ben Chahal MD PhD Medical Oncologist/Wellness Nurse Rn Medical Oncology 10/05/22 Chace Oliva MD [address] [place] [address] Consulting Physician Infectious Diseases 12/22/2204/01 Giovanna Alexis MD [address] [facility] [address] [place] [address] Radiation Oncologist Radiation Oncology 03/09/23 Taisha Suarez, flattening machine operator Prehabilitation and Readiness (SPAR) Coordinator General Surgery 03/20/23 04/10/23 Sandra Ma MD Consulting Physician Medical Oncology 04/25/23 05/09/23 Abby Higgins MD PhD Medical Oncologist/Wellness Nurse Rn Medical Oncology 05/10/23 Adrian Martinez MD [address] [facility] DIV SURG TRANSPLANT, [address] [place] [address] Surgical Oncologist Surgical Oncology 05/28/23 Vera Pérez PA [address] [place] [phone] [place] [address] Physician Dry Press Operator Colon and Rectal Surgery 09/13/23 Jim Frausto MD [address] [facility] [phone] [place] [address] Surgeon Colon and Rectal Surgery 11/21/23 Анна Robert, RN [address] [facility] [address] [place] [id number] SHOP Outpatient Psychiatric Nursing Aide 09/29/24 10/01/24 documented as of this encounter
--- OUTSIDE RECORDS SUMMARY | 2025-06-04 10:36 | XMS_ITS | Encounter Summary ---
Author Organization [facility] Address [address] [place] [address] Phone Care Team Providers Care Chucking Machine Operator Name Role Phone Kenton Ricks MD Primary Care Provider + [phone] Pebbles Nelson MD Unavailable [phone] Aylin Russ MD Unavailable [phone] Maricruz Ramirez NP Unavailable [phone] Joanne Lopez RN Unavailable Padmini Leatha Carter Unavailable Unavailable Ben Chahal MD PhD Unavailable +[phone] Chace Oliva MD Unavailable [phone] Giovanna Alexis MD Unavailable Taisha Suarez RN Unavailable Unavaila Sandra Aguirre MD Unavailable [phone] Abby Higgins MD PhD Unavailable + Adrian Martinez MD Unavailable Vera Pérez Unavailable Jim Frausto MD Unavailable [phone] Анна Robert RN Unavailable Encounter Details Date Type Department Care Team (Late st Contact Info) Description 08/10/2020 Telephone [facility] Cardiology [address] [facility] Medicine 8th [place] [address] [place] [address] Pebbles Nelson MD [address] [facility] [address] [place], [place] [id number] Social History Tobacco Use Types Packs/Day Years Used Date Smoking Tobacco: Former Smokeless Tobacco: Never Alcohol Use Standard Drinks/Week Comments Yes 0 (1 standard drink = 0.6 oz pur e alcohol) Occassional Sex and Gender Information Value Date Recorded Sex Assigned at Not on file Legal Sex Male 12:58 AM TRANSPORT AIDE Gender Identity Male 11/11/2018 10:31 AM CDT Sexual Orientation Straight 06/09/2019 5: 34 PM TRANSPORT AIDE documented as of this encounter Plan of [...] COVID: Suspected 06/07/2023 06/07/2023 06/07/2023 12:46 PM TRANSPORT AIDE COVID19 06/07/2023 06/07/2023 06/22/2023 3:06 AM TRANSPORT AIDE COVID: Recovered Comment:Added based on recent COVID infection. 06/22/2023 06/22/2023 09/20/2023 3:05 AM C DT COVID: Suspected 07/24/2023 07/24/2023 07/24/2023 3:53 PM TRANSPORT AIDE Diarrhea 07/30/2023 07/30/2023 08/13/2023 3:05 AM TRANSPORT AIDE COVID: Suspected 08/30/2023 08/30/2023 08/30/2023 4:52 PM TRANSPORT AIDE COVID: Suspected 10/12/2023 10/12/2023 10/12/2023 7:57 PM CDT Rhino/Enterovirus 10/12/2023 10/12/2023 10/26/2023 3:05 AM CDT COVID: Suspected 07/10/2024 07/10/2024 07/10/2024 4:53 PM TRANSPORT AIDE COVID: Suspected Comment:07/16/2024 IP Review: no outstanding test, last RPP negative. Mary Tiwari RN 07/16/2024 07/16/2024 10:51 AM TRANSPORT AIDE COVID19 Comment:07/16/2024 IP Review: added by RN, RPP negative. Mary Tiwari RN 07/16/2024 07/16/2024 07/16/2024 10:51 AM TRANSPORT AIDE MRSA Comment:nasalMRSA Isolation Residential 09/03/24 07/16/2024 08/15/2024 09/03/2024 6:[address] C. difficile suspected 07/19/2024 07/19/202407/19 2:34 PM TRANSPORT AIDE COVID: Suspected 07/23/2024 07/23/2024 07/23/2024 11:28 PM TRANSPORT AIDE C. difficile suspected 07/23/2024 07/24/202407/24 10:31 AM TRANSPORT AIDE Norovirus suspected 07/23/2024 07/24/2024 07/24/19 9:37 AM TRANSPORT AIDE VRE Comment:Contact Precautions (gown and gloves) - not eligible for IP review until 6 months after positive culture - Jerod QURESHI, RN 10/01/24 07/24/2024 09/20/2024 03/19/2025 7:26 PM C DT COVID: Suspected 08/09/2024 08/09/2024 08/09/2024 9:40 AM TRANSPORT AIDE Influenza, adult Comment:08/26/2024 IP Review: pt afebrile but on antipyretics. Needs 24 hours off antipyretics and symptoms significantly improved/resolved in order for isolation to be discontinued. Mary Tiwari RN 08/15/2024 08/15/2024 08/29/2024 3:06 AM TRANSPORT AIDE Coronavirus, droplet 08/15/2024 08/15/2024 025 3:06 AM TRANSPORT AIDE C. difficile suspected 09/19/2024 09/19/202409/20 3:05 AM [...] documented as of this encounter Care Teams Chucking Machine Operator Relationship Specialty Start Date End Date Kenton Ricks MD PCP - General 08/14/16 Pebbles Nelson MD Referring Physician Cardiology 02/07/19 Aylin Russ MD [address] [facility] [address] [place] [address] Referring Physician Pulmonary Disease 02/07/19 Maricruz Ramirez PARKING REGULATION ENFORCEMENT OFFICER [address] [facility] [address] [place] [address] Nurse Practitioner Cardiovascular Disease 09/25/21 Joanne Lopez, [place] Registered Nurse Pulmonary Disease 08/24/22 Leatha Cristina RMA Surgical Prehabilitation and Readiness (SPAR) Coordinator 09/01/22 01/02/23 Ben Chahal MD PhD Medical Oncologist/Radiotelegraph Operator Servicer Medical Oncology 10/05/22 Chace Oliva MD [address] [place] [address] Consulting Physician Infectious Diseases 12/22/2204/01 Giovanna Alexis MD [address] [facility] [address] [place] [address] Radiation Oncologist Radiation Oncology 03/09/23 Taisha Suarez RN Surgical Prehabilitation and Readiness (SPAR) Coordinator General Surgery 03/20/23 04/10/23 Sandra Ma MD Consulting Physician Medical Oncology 04/25/23 05/09/23 Abby Higgins MD PhD Medical Oncologist/Radiotelegraph Operator Servicer Medical Oncology 05/10/23 Adrian Martinez MD [address] [facility] DIV SURG TRANSPLANT, [address] [place] [address] Surgical Oncologist Surgical Oncology 05/28/23 Vera Pérez PA [address] [place] [phone] [place] [address] Physician Financial Reporting Manager Colon and Rectal Surgery 09/13/23 Jim Frausto MD [address] [facility] [phone] [place], [place] [id number] Surgeon Colon and Rectal Surgery 11/21/23 Анна Robert, RN [address] [facility] [address] [place] [address] SHOP Outpatient Hide Washer 09/29/24 10/01/24 documented as of this encounter
--- OUTSIDE RECORDS SUMMARY | 2025-06-04 10:36 | XMS_ITS | Encounter Summary ---
Author Organization [facility]ly [facility] Address [address] [place] [address] Care Team Providers Care Guest Experience Specialist Name Role Phone Kenton Ricks MD Primary Care Provider + [phone] Pebbles Nelson MD Unavailable [phone] Aylin Russ MD Unavailable +[phone] Maricruz Ramirez NP Unavailable [phone] Joanne Lopez RN Unavailable Padmini Leatha Carter Unavailable Unavailable Ben Chahal MD PhD Unavailable +[phone] Chace Oliva MD Unavailable +[phone] Giovanna Alexis MD Unavailable Taisha Suarez RN Unavailable Unavaila Sandra Aguirre MD Unavailable +[phone] Abby Higgins MD PhD Unavailable + Adrian Martinez MD Unavailable [phone] Vera Pérez Unavailable Jim Frausto MD Unavailable Анна Robert RN Unavailable Encounter Details Date Type Department Care Team (Late st Contact Info) Description 06/15/2020 Telephone [facility] Radiology [address] [place] [address] Adalberto Zavala MD [address] [place] [address] Social History Tobacco Use Types Packs/Day Years Used Date Smoking Tobacco: Former Smokeless Tobacco: Never Alcohol Use Standard Drinks/Week Comments Yes 0 (1 standard drink = 0.6 oz pur e alcohol) Occassional Sex and Gender Information Value Date Recorded Sex Assigned at Not on file Legal Sex Male 12:58 AM ALTERATION MANAGER Gender Identity Male 11/11/2018 10:31 AM CDT Sexual Orientation Straight 06/09/2019 5: 34 PM ALTERATION MANAGER documented as of this encounter Plan [...] 09/22/2022 3:20 PM CDT COVID: Suspected 09/21/2022 09/21/202209/2109/21/2022 7:46 PM CDT COVID: Suspected 09/22/2022 09/22/2022 [...] COVID: Suspected 06/07/2023 06/07/2023 06/07/2023 12:46 PM ALTERATION MANAGER COVID19 06/07/2023 06/07/2023 06/22/2023 3:06 AM ALTERATION MANAGER COVID: Recovered Comment:Added based on recent COVID infection. 06/22/2023 06/22/2023 09/20/2023 3:05 AM C DT COVID: Suspected 07/24/2023 07/24/2023 07/24/2023 3:53 PM ALTERATION MANAGER Diarrhea 07/30/2023 07/30/2023 08/13/2023 3:05 AM ALTERATION MANAGER COVID: Suspected 08/30/2023 08/30/2023 08/30/2023 4:52 PM ALTERATION MANAGER COVID: Suspected 10/12/2023 10/12/2023 10/12/2023 7:57 PM CDT Rhino/Enterovirus 10/12/2023 10/12/2023 10/26/2023 3:05 AM CDT COVID: Suspected 07/10/2024 07/10/2024 07/10/2024 4:53 PM ALTERATION MANAGER COVID: Suspected Comment:07/16/2024 IP Review: no outstanding test, last RPP negative. Mary Tiwari RN 07/16/2024 07/16/2024 10:51 AM ALTERATION MANAGER COVID19 Comment:07/16/2024 IP Review: added by CLAUDIO DONNELLY negative. Mary Tiwari RN 07/16/2024 07/16/2024 07/16/2024 10:51 AM ALTERATION MANAGER MRSA Comment:nasalMRSA Isolation Custodial 09/03/24 07/16/2024 08/15/2024 09/03/2024 6:[address] C. difficile suspected 07/19/2024 07/19/202407/19 2:34 PM ALTERATION MANAGER COVID: Suspected 07/23/2024 07/23/2024 07/23/2024 11:28 PM ALTERATION MANAGER C. difficile suspected 07/23/2024 07/24/202407/24 10:31 AM ALTERATION MANAGER Norovirus suspected 07/23/2024 07/24/2024 07/24/19 9:37 AM ALTERATION MANAGER VRE Comment:Contact Precautions (gown and gloves) - not eligible for IP review until 6 months after positive culture - Jerod QURESHI, CONY 10/01/24 07/24/2024 09/20/2024 03/19/2025 7:26 PM C DT COVID: Suspected 08/09/2024 08/09/2024 08/09/2024 9:40 AM ALTERATION MANAGER Influenza, adult Comment:08/26/2024 IP Review: pt afebrile but on antipyretics. Needs 24 hours off antipyretics and symptoms significantly improved/resolved in order for isolation to be discontinued. Mary Tiwari RN 08/15/2024 08/15/2024 08/29/2024 3:06 AM ALTERATION MANAGER Coronavirus, droplet 08/15/2024 08/15/2024 025 3:06 AM ALTERATION MANAGER C. difficile suspected 09/19/2024 09/19/202409/20 3:05 [...] documented as of this encounter Care Teams Guest Experience Specialist Relationship Specialty Start Date End Date Kenton Ricks MD PCP - General 08/14/16 Pebbles Nelson MD Referring Physician Cardiology 02/07/19 Aylin Russ MD [id number] [place] [address] Referring Physician Pulmonary Disease 02/07/19 Maricruz Ramirez PRODUCT DESIGNER [address] [place] [address] Nurse Practitioner Cardiovascular Disease 09/25/21 Joanne Lopez, CONY Registered Nurse Pulmonary Disease 08/24/22 Leatha Cristina RMA Surgical Prehabilitation and Readiness (SPAR) Coordinator 09/01/22 01/02/23 Ben Chahal MD PhD Medical Oncologist/Radiology Tech Medical Oncology 10/05/22 Chace Oliva MD [address] [facility] [address] [place] [address] Consulting Physician Infectious Diseases 12/22/2204/01 Giovanna Alexis MD [address] [facility] [address] [place] [address] Radiation Oncologist Radiation Oncology 03/09/23 Taisha Suarez, chief communications officer Prehabilitation and Readiness (SPAR) Coordinator General Surgery 03/20/23 04/10/23 Sandra Ma MD Consulting Physician Medical Oncology 04/25/23 05/09/23 Abby Higgins MD PhD Medical Oncologist/Radiology Tech Medical Oncology 05/10/23 Adrian Martinez MD [address] [facility] DIV SURG TRANSPLANT, [address] [place] [address] Surgical Oncologist Surgical Oncology 05/28/23 Vera Pérez PA [address] [place] [id number] [place] [address] Physician Office Auditor Colon and Rectal Surgery 09/13/23 Jim Frausto MD [address] [facility] [id number] [place] [address] Surgeon Colon and Rectal Surgery 11/21/23 Анна Robert, RN [address] [facility] [address] [place], [place] [address] SHOP Outpatient Job Molder 09/29/24 10/01/24 documented as of this encounter
--- OUTSIDE RECORDS SUMMARY | 2025-06-04 10:36 | XMS_ITS | Encounter Summary ---
Author Organization [facility] Address [address] [place] [address] Phone Care Team Providers Care Auto Club Safety Program Coordinator Name Role Phone Kenton Ricks MD Primary Care Provider + [phone] Pebbles Nelson MD Unavailable [phone] Aylin Russ MD Unavailable +[phone] Maircruz Ramirez NP Unavailable [phone] Joanne Lopez RN Unavailable Padmini Ben Walker MD PhD Unavailable +[phone] Giovanna Alexis MD Unavailable Abby Higgins MD PhD Unavailable + Adrian Martinez MD Unavailable [phone] Vera Pérez Unavailable [phone] Jim Frausto MD Unavailable [phone] Encounter Details Date Type Department Care Team (Latest Contact Info) Description 04/17/2025 Orders Only [facility] Scanning, Provider Social History Tobacco Use Types [...] often do you attend chur ch or druze services? More than 4 times per year 01/13/2025 Do you belong to any clubs o r organizations such as denominational groups, unions, fraternal or athletic groups, or [...] Recorded PHQ-2 Total Score 1 09/21/2024 [facility] - Occupational [...] any time in the past 12 m [facility], were you homeless or [...] often do you attend chur ch or druze services? More than 4 times per year 04/01/2025 Do you belong to any clubs o r organizations such as denominational groups, unions, fraternal or athletic groups, or [...] any time in the past 12 m [facility], were you homeless or living in a intermediate (including now)? No 04/01/2025 [facility] Utilities Answer Date Recorded In the past 12 months has [employer], gas, oil, or water company threatened to [...] on file Legal Sex Male 12:58 AM PATIENT RELATIONS MANAGER Gender Identity Male 11/11/2018 10:31 AM CDT Sexual Orientation Straight 06/09/2019 5: 34 PM PATIENT RELATIONS MANAGER documented as of this encounter Functional Status documented as of this encounter Plan of Treatment Not on file documented as of this encounter Procedures Procedure Name Priority Date/Time Associated Diagnosis Comments SCAN - LABS 04/16/2025 documented in this encounter Results * SCAN - LABS (04/16/2025) us Provider Scanning Edited Result - Final documented in this encounter Visit Diagnoses Not on filedocumented in this encounter Care Teams Auto Club Safety Program Coordinator Relationship Specialty Start Date End Date Kenton Ricks MD PCP - General 08/14/16 Pebbles Nelson MD Referring Physician Cardiology 02/07/19 Aylin Russ MD [address] [place], [place] [address] Referring Physician Pulmonary Disease 02/07/19 Maricruz Ramirez NP [address] [place] [address] Nurse Practitioner Cardiovascular Disease 09/25/21 Joanne Lopez, RN Registered Nurse Pulmonary Disease 08/24/22 Ben Chahal MD PhD Medical Oncologist/Hematologis t Medical Oncology 10/05/22 Giovanna Alexis MD Radiation Oncologist Radiation Oncology 03/09/23 Abby Higgins MD PhD Medical Oncologist/Hematologis t Medical Oncology 05/10/23 Adrian Martinez MD [address] [facility] DIV SURG TRANSPLANT, [address] [place] [address] Surgical Oncologist Surgical Oncology 05/28/23 Vera Pérez PA [address] [place] [id number] [place] [address] Physician Junior Estimator Colon and Rectal Surgery 09/13/23 Jim Frausto MD [address] [facility] [id number] [place] [address] Surgeon Colon and Rectal Surgery 11/21/23 documented as of this encounter
--- OUTSIDE RECORDS SUMMARY | 2025-06-04 10:36 | XMS_ITS | Clinical Summary ---
Author Organization [facility] Address [address] [place], [place] [id number] Care Team Providers Care Commercial Crabber Name Role Phone Ivonne Alcantar PA-C Primary Care Provider [phone] Social History Tobacco Use Types Packs/Day Years [...] of 2) 2005 COVID-19 Vaccine ( - 2024-2 6 season) 2025 Influenza Adult (#1) 2025 RSV [...] complete this topic Insurance MEDICAID Care Teams Commercial Crabber Relationship Specialty Start Date End Date Ivonne Alcantar PA-C [address] [place], [place] [id number] PCP - General SUBASSEMBLIES WIRER 12/06/21
--- OUTSIDE RECORDS SUMMARY | 2025-06-04 10:36 | XMS_ITS | Encounter Summary ---
Author Organization [facility] Address [address] [place] [address] Phone Care Team Providers Care Copy Holder Name Role Phone Kenton Ricks MD Primary Care Provider + [phone] Pebbles Nelson MD Unavailable [phone] Aylin Russ MD Unavailable [phone] Maricruz Ramirez NP Unavailable [phone] Joanne Lopez RN Unavailable Padmini Leatha Carter Unavailable Unavailable Ben Chahal MD PhD Unavailable +[phone] Chace Oliva MD Unavailable [phone] Giovanna Alexis MD Unavailable Taisha Suarez RN Unavailable Unavaila Sandra Aguirre MD Unavailable [phone] Abby Higgins MD PhD Unavailable + Adrian Martinez MD Unavailable [phone] Vera Pérez Unavailable [phone] Jim Frausto MD Unavailable [phone] Анна Robert RN Unavailable [phone] Encounter Details Date Type Department Care Team (Latest Contact Info) Description 11/15/2017 Orders Only [facility] Scanning, Provider Social History Tobacco Use Types Packs/Day Years Used Date Smoking Tobacco: Former Sex and Gender Information Value Date Recorded Sex Assigned at Not on file Legal Sex Male 12:58 AM DIGITAL COMPUTER OPERATOR Gender Identity Male 11/11/2018 10:31 AM CDT Sexual Orientation Straight 06/09/2019 5: 34 PM DIGITAL COMPUTER OPERATOR documented as of this encounter Plan [...] COVID: Suspected 06/07/2023 06/07/2023 06/07/2023 12:46 PM DIGITAL COMPUTER OPERATOR COVID19 06/07/2023 06/07/2023 06/22/2023 3:06 AM DIGITAL COMPUTER OPERATOR COVID: Recovered Comment:Added based on recent COVID infection. 06/22/2023 06/22/2023 09/20/2023 3:05 AM C DT COVID: Suspected 07/24/2023 07/24/2023 07/24/2023 3:53 PM DIGITAL COMPUTER OPERATOR Diarrhea 07/30/2023 07/30/2023 08/13/2023 3:05 AM DIGITAL COMPUTER OPERATOR COVID: Suspected 08/30/2023 08/30/2023 08/30/2023 4:52 PM DIGITAL COMPUTER OPERATOR COVID: Suspected 10/12/2023 10/12/2023 10/12/2023 7:57 PM CDT Rhino/Enterovirus 10/12/2023 10/12/2023 10/26/2023 3:05 AM CDT COVID: Suspected 07/10/2024 07/10/2024 07/10/2024 4:53 PM DIGITAL COMPUTER OPERATOR COVID: Suspected Comment:07/16/2024 IP Review: no outstanding test, last RPP negative. Mary Tiwari, RN 07/16/2024 07/16/2024 10:51 AM DIGITAL COMPUTER OPERATOR COVID19 Comment:07/16/2024 IP Review: added by CLAUDIO DONNELLY negative. Mary Tiwari RN 07/16/2024 07/16/2024 07/16/2024 10:51 AM DIGITAL COMPUTER OPERATOR MRSA Comment:nasalMRSA Isolation Detention 09/03/24 07/16/2024 08/15/2024 09/03/2024 6:[address] C. difficile suspected 07/19/2024 07/19/202407/19 2:34 PM DIGITAL COMPUTER OPERATOR COVID: Suspected 07/23/2024 07/23/2024 07/23/2024 11:28 PM DIGITAL COMPUTER OPERATOR C. difficile suspected 07/23/2024 07/24/202407/24 10:31 AM DIGITAL COMPUTER OPERATOR Norovirus suspected 07/23/2024 07/24/2024 07/24/19 9:37 AM DIGITAL COMPUTER OPERATOR VRE Comment:Contact Precautions (gown and gloves) - not eligible for IP review until 6 months after positive culture - Jerod QURESHI, CONY 10/01/24 07/24/2024 09/20/2024 03/19/2025 7:26 PM C DT COVID: Suspected 08/09/2024 08/09/2024 08/09/2024 9:40 AM DIGITAL COMPUTER OPERATOR Influenza, adult Comment:08/26/2024 IP Review: pt afebrile but on antipyretics. Needs 24 hours off antipyretics and symptoms significantly improved/resolved in order for isolation to be discontinued. Mary Tiwari RN 08/15/2024 08/15/2024 08/29/2024 3:06 AM DIGITAL COMPUTER OPERATOR Coronavirus, droplet 08/15/2024 08/15/2024 025 3:06 AM DIGITAL COMPUTER OPERATOR C. difficile suspected 09/19/2024 09/19/202409/20 3:05 [...] documented as of this encounter Care Teams Copy Holder Relationship Specialty Start Date End Date Kenton Ricks MD PCP - General 08/14/16 Pebbles Nelson MD Referring Physician Cardiology 02/07/19 Aylin Russ MD [address] [place] [address] Referring Physician Pulmonary Disease 02/07/19 Maricruz Ramirez, FERTILIZER APPLICATOR [address] [place] [address] Nurse Practitioner Cardiovascular Disease 09/25/21 Joanne Lopez, RN Registered Nurse Pulmonary Disease 08/24/22 Leatha Cristina RMA Surgical Prehabilitation and Readiness (SPAR) Coordinator 09/01/22 01/02/23 Ben Chahal MD PhD Medical Oncologist/Wilton Weaver Medical Oncology 10/05/22 Chace Oliva MD [address] [place] [address] Consulting Physician Infectious Diseases 12/22/2204/01 Giovanna Alexis MD [address] [place] [address] Radiation Oncologist Radiation Oncology 03/09/23 Taisha Suarez, manager pool Prehabilitation and Readiness (SPAR) Coordinator General Surgery 03/20/23 04/10/23 Sandra Ma MD Consulting Physician Medical Oncology 04/25/23 05/09/23 Abby Higgins MD PhD Medical Oncologist/Wilton Weaver Medical Oncology 05/10/23 Adrian Martinez MD [address] [facility] DIV SURG TRANSPLANT, [address] [place] [address] Surgical Oncologist Surgical Oncology 05/28/23 Vera Pérez PA [address] [place] [id number] [place] [address] Physician Software Qa Manager Colon and Rectal Surgery 09/13/23 Jim Frausto MD [address] [facility] [id number] [place] [address] Surgeon Colon and Rectal Surgery 11/21/23 Анна Robert, RN [address] [facility] [address] [place], [place] [id number] SHOP Outpatient Picking Supervisor 09/29/24 10/01/24 documented as of this encounter
--- OUTSIDE RECORDS SUMMARY | 2025-06-04 10:36 | XMS_ITS | Encounter Summary ---
Author Organization [facility] Address [address] [place] [address] Phone Care Team Providers Care Plastic Tubing Insulation Supervisor Name Role Phone Kenton Ricks MD Primary Care Provider + [phone] Pebbles Nelson MD Unavailable [phone] Aylin Russ MD Unavailable [phone] Maricruz Ramirez NP Unavailable [phone] Joanne Lopez RN Unavailable Padmini Leatha Carter Unavailable Unavailable Ben Chahal MD PhD Unavailable +[phone] Chace Oliva MD Unavailable [phone] Giovanna Alexis MD Unavailable Taisha Suarez RN Unavailable Unavaila Sandra Aguirre MD Unavailable [phone] Abby Higgins MD PhD Unavailable + Adrian Martinez MD Unavailable [phone] Vera Pérez Unavailable [phone] Jim Frausto MD Unavailable [phone] Анна Robetr RN Unavailable [phone] Encounter Details Date Type Department Care Team [...] file Legal Sex Male 12:58 AM DIRECTOR HARDWARE Gender Identity Male 11/11/2018 10:31 AM CDT Sexual Orientation Straight 06/09/2019 5: 34 PM DIRECTOR HARDWARE documented as of this encounter Plan of [...] Suspected 06/07/2023 06/07/2023 06/07/2023 12:46 PM DIRECTOR HARDWARE COVID19 06/07/2023 06/07/2023 06/22/2023 3:06 AM DIRECTOR HARDWARE COVID: Recovered Comment:Added based on recent COVID infection. 06/22/2023 06/22/2023 09/20/2023 3:05 AM C DT COVID: Suspected 07/24/2023 07/24/2023 07/24/2023 3:53 PM DIRECTOR HARDWARE Diarrhea 07/30/2023 07/30/2023 08/13/2023 3:05 AM DIRECTOR HARDWARE COVID: Suspected 08/30/2023 08/30/2023 08/30/2023 4:52 PM DIRECTOR HARDWARE COVID: Suspected 10/12/2023 10/12/2023 10/12/2023 7:57 PM CDT Rhino/Enterovirus 10/12/2023 10/12/2023 10/26/2023 3:05 AM CDT COVID: Suspected 07/10/2024 07/10/2024 07/10/2024 4:53 PM DIRECTOR HARDWARE COVID: Suspected Comment:07/16/2024 IP Review: no outstanding test, last RPP negative. Mary Tiwari RN 07/16/2024 07/16/2024 10:51 AM DIRECTOR HARDWARE COVID19 Comment:07/16/2024 IP Review: added by RN, RPP negative. Mary Tiwari RN 07/16/2024 07/16/2024 07/16/2024 10:51 AM DIRECTOR HARDWARE MRSA Comment:nasalMRSA Isolation Fpc 09/03/24 07/16/2024 08/15/2024 09/03/2024 6:[address] C. difficile suspected 07/19/2024 07/19/202407/19 2:34 PM DIRECTOR HARDWARE COVID: Suspected 07/23/2024 07/23/2024 07/23/2024 11:28 PM DIRECTOR HARDWARE C. difficile suspected 07/23/2024 07/24/202407/24 10:31 AM DIRECTOR HARDWARE Norovirus suspected 07/23/2024 07/24/2024 07/24/19 9:37 AM DIRECTOR HARDWARE VRE Comment:Contact Precautions (gown and gloves) - not eligible for IP review until 6 months after positive culture - Jerod QURESHI, OCNY 10/01/24 07/24/2024 09/20/2024 03/19/2025 7:26 PM C DT COVID: Suspected 08/09/2024 08/09/2024 08/09/2024 9:40 AM DIRECTOR HARDWARE Influenza, adult Comment:08/26/2024 IP Review: pt afebrile but on antipyretics. Needs 24 hours off antipyretics and symptoms significantly improved/resolved in order for isolation to be discontinued. Mary Tiwari RN 08/15/2024 08/15/2024 08/29/2024 3:06 AM DIRECTOR HARDWARE Coronavirus, droplet 08/15/2024 08/15/2024 025 3:06 AM DIRECTOR HARDWARE C. difficile suspected 09/19/2024 09/19/202409/20 3:05 AM [...] as of this encounter Care Teams Plastic Tubing Insulation Supervisor Relationship Specialty Start Date End Date Kenton Ricks MD PCP - General 08/14/16 Pebbles Nelson MD Referring Physician Cardiology 02/07/19 Aylin Russ MD [address] [facility] [address] [place] [address] Referring Physician Pulmonary Disease 02/07/19 Maricruz Ramirez, CHRISTINE [address] [facility] [address] [place] [address] Nurse Practitioner Cardiovascular Disease 09/25/21 Joanne Lopez, CONY Registered Nurse Pulmonary Disease 08/24/22 Leatha Cristina RMA Surgical Prehabilitation and Readiness (SPAR) Coordinator 09/01/22 01/02/23 Ben Chahal MD PhD Medical Oncologist/Zipper Setter Medical Oncology 10/05/22 Chace Oliva MD [address] [facility] [address] [place] [address] Consulting Physician Infectious Diseases 12/22/2204/01 Giovanna Alexis MD [address] [facility] [address] [place] [address] Radiation Oncologist Radiation Oncology 03/09/23 Taisha Suarez, surveyor hydrographic Prehabilitation and Readiness (SPAR) Coordinator General Surgery 03/20/23 04/10/23 Sandra Ma MD Consulting Physician Medical Oncology 04/25/23 05/09/23 Abby Higgins MD PhD Medical Oncologist/Zipper Setter Medical Oncology 05/10/23 Adrian Martinez MD [address] [facility] DIV SURG TRANSPLANT, [facility] [address] [place] [address] Surgical Oncologist Surgical Oncology 05/28/23 Vera Pérez PA [address] [place] [id number] [place] [address] Physician Rag Room Supervisor Colon and Rectal Surgery 09/13/23 Jim Frausto MD [address] [facility] [id number] [place] [address] Surgeon Colon and Rectal Surgery 11/21/23 Анна Robert, RN [address] [facility] [address] [place] [address] SHOP Outpatient Senior Technical Manager 09/29/24 10/01/24 documented as of this encounter
--- OUTSIDE RECORDS SUMMARY | 2025-06-04 10:36 | XMS_ITS | Clinical Summary ---
Author Organization [facility] Address [address] [place] [address] Phone Care Team Providers Care Dean Of Girls Name Role Phone Kenton Ricks MD Primary Care Provider [phone] Allergies Active Allergy Reactions Criticality Noted Date [...] ACEI to ARB. He will contact his oracle manager to follow up regarding this. Acute on [...] Comments Blood Pressure 118/68 05/24/2022 9:24 AM BEHAVIORAL HEALTH CLINICIAN Pulse - - Temperature 35.7 C (96.3 F) 05/24/2022 9:24 AM BEHAVIORAL HEALTH CLINICIAN Respiratory Rate 18 05/24/2022 9:24 AM BEHAVIORAL HEALTH CLINICIAN Oxygen Saturation - - Inhaled Oxygen Concentration - - Weight 126 kg (278 lb) 05/24/2022 9:24 AM BEHAVIORAL HEALTH CLINICIAN Height 172.7 cm (5' 8) 05/24/2022 9:24 AM BEHAVIORAL HEALTH CLINICIAN Body Mass Index 42.27 05/24/2022 9:24 AM BEHAVIORAL HEALTH CLINICIAN Plan of Treatment Health Maintenance Due Date Last Done Comments Pneumococcal PPSV23/PCV13 65 + Years / Low and Medium Risk (1 of 2 - PCV) 2005 Influenza Vaccine (#1) 2025 , 04/01/2017, 06/14/2016 Insurance [employer] MEDICARE ADVANTAGE Care Teams Dean Of Girls Relationship Specialty Start Date End Date Kenton Ricks MD [address] [place] [address] PCP - General Family Medicine 02/16/22
--- OUTSIDE RECORDS SUMMARY | 2025-06-04 10:36 | XMS_ITS | Encounter Summary ---
Author Organization [facility] Address [address] [place] [address] Phone Care Team Providers Care Engine Assembler Name Role Phone Kenton Ricks MD Primary Care Provider + [phone] Pebbles Nelson MD Unavailable +[phone] Aylin Russ MD Unavailable [phone] Maricruz Ramirez NP Unavailable [phone] Joanne Lopez RN Unavailable Padmini Leatha Carter Unavailable Unavailable Ben Chahal MD PhD Unavailable +[phone] Chace Oliva MD Unavailable [phone] Giovanna Alexis MD Unavailable Taisha Suarez RN Unavailable Unavaila Sandra Aguirre MD Unavailable +[phone] Abby Higgins MD PhD Unavailable + Adrian Martinez MD Unavailable [phone] Vera Pérez Unavailable [phone] Jim Frausto MD Unavailable [phone] Анна Robert RN Unavailable [phone] Encounter Details Date Type Department Care Team (Latest Contact Info) Description 12/14/2016 Orders Only [facility] CONVERSION Scanning, Provider Social History Tobacco Use Types Packs/Day Years Used Date Smoking Tobacco: Never Assessed Sex and Gender Information Value Date Recorded Sex Assigned at Not on file Legal Sex Male 12:58 AM COP EXAMINER Gender Identity Male 11/11/2018 10:31 AM CDT Sexual Orientation Straight 06/09/2019 5: 34 PM COP EXAMINER documented as of this encounter Plan of [...] COVID: Suspected 06/07/2023 06/07/2023 06/07/2023 12:46 PM COP EXAMINER COVID19 06/07/2023 06/07/2023 06/22/2023 3:06 AM COP EXAMINER COVID: Recovered Comment:Added based on recent COVID infection. 06/22/2023 06/22/2023 09/20/2023 3:05 AM C DT COVID: Suspected 07/24/2023 07/24/2023 07/24/2023 3:53 PM COP EXAMINER Diarrhea 07/30/2023 07/30/2023 08/13/2023 3:05 AM COP EXAMINER COVID: Suspected 08/30/2023 08/30/2023 08/30/2023 4:52 PM COP EXAMINER COVID: Suspected 10/12/2023 10/12/2023 10/12/2023 7:57 PM CDT Rhino/Enterovirus 10/12/2023 10/12/2023 10/26/2023 3:05 AM CDT COVID: Suspected 07/10/2024 07/10/2024 07/10/2024 4:53 PM COP EXAMINER COVID: Suspected Comment:07/16/2024 IP Review: no outstanding test, last RPP negative. Mary Tiwari RN 07/16/2024 07/16/2024 10:51 AM COP EXAMINER COVID19 Comment:07/16/2024 IP Review: added by RN, RPP negative. Mary Tiwari RN 07/16/2024 07/16/2024 07/16/2024 10:51 AM COP EXAMINER MRSA Comment:nasalMRSA Isolation Jail 09/03/24 07/16/2024 08/15/2024 09/03/2024 6:[address] C. difficile suspected 07/19/2024 07/19/202407/19 2:34 PM COP EXAMINER COVID: Suspected 07/23/2024 07/23/2024 07/23/2024 11:28 PM COP EXAMINER C. difficile suspected 07/23/2024 07/24/202407/24 10:31 AM COP EXAMINER Norovirus suspected 07/23/2024 07/24/2024 07/24/19 9:37 AM COP EXAMINER VRE Comment:Contact Precautions (gown and gloves) - not eligible for IP review until 6 months after positive culture - Jerod QURESHI, CONY 10/01/24 07/24/2024 09/20/2024 03/19/2025 7:26 PM C DT COVID: Suspected 08/09/2024 08/09/2024 08/09/2024 9:40 AM COP EXAMINER Influenza, adult Comment:08/26/2024 IP Review: pt afebrile but on antipyretics. Needs 24 hours off antipyretics and symptoms significantly improved/resolved in order for isolation to be discontinued. Mary Tiwari RN 08/15/2024 08/15/2024 08/29/2024 3:06 AM COP EXAMINER Coronavirus, droplet 08/15/2024 08/15/2024 025 3:06 AM COP EXAMINER C. difficile suspected 09/19/2024 09/19/202409/20 3:05 AM [...] documented as of this encounter Care Teams Engine Assembler Relationship Specialty Start Date End Date Kenton Ricks MD PCP - General 08/14/16 Pebbles Nelson MD Referring Physician Cardiology 02/07/19 Aylin Russ MD [address] [facility] [address] [place] [address] Referring Physician Pulmonary Disease 02/07/19 Maricruz Ramirez, CORRECTION OFFICER HEAD [address] [place] [address] Nurse Practitioner Cardiovascular Disease 09/25/21 Joanne Lopez, CONY Registered Nurse Pulmonary Disease 08/24/22 Leatha Cristina RMA Surgical Prehabilitation and Readiness (SPAR) Coordinator 09/01/22 01/02/23 Ben Chahal MD PhD Medical Oncologist/Headlight Assembler Medical Oncology 10/05/22 Chace Oliva MD [address] [facility] [address] [place] [address] Consulting Physician Infectious Diseases 12/22/2204/01 Giovanna Alexis MD [address] [facility] [address] [place] [address] Radiation Oncologist Radiation Oncology 03/09/23 Taisha Suarez, all round logger Prehabilitation and Readiness (SPAR) Coordinator General Surgery 03/20/23 04/10/23 Sandra Ma MD Consulting Physician Medical Oncology 04/25/23 05/09/23 Abby Higgins MD PhD Medical Oncologist/Headlight Assembler Medical Oncology 05/10/23 Adrian Martinez MD [address] [facility] DIV SURG TRANSPLANT, [address] [place] [address] Surgical Oncologist Surgical Oncology 05/28/23 Vera Pérez PA [address] [place] [id number] [place] [address] Physician Tinsmith Apprentice Colon and Rectal Surgery 09/13/23 Jim Frausto MD [address] [facility] [phone] [place] [address] Surgeon Colon and Rectal Surgery 11/21/23 Анна Robert, RN [address] [facility] [address] [place] [address] SHOP Outpatient Poured Pipe Maker 09/29/24 10/01/24 documented as of this encounter
--- OUTSIDE RECORDS SUMMARY | 2025-06-04 10:36 | XMS_ITS | Encounter Summary ---
Author Organization [facility] Address [address] [place] [address] Phone Care Team Providers Care Sugar Drier Name Role Phone Kenton Ricks MD Primary Care Provider + [phone] Pebbles Nelson MD Unavailable [phone] Aylin Russ MD Unavailable [phone] Maricruz Ramirez NP Unavailable [phone] Joanne Lopez RN Unavailable Padmini Leatha Carter Unavailable Unavailable Ben Chahal MD PhD Unavailable +[phone] Chace Oliva MD Unavailable [phone] Giovanna Alexis MD Unavailable Taisha Suarez RN Unavailable Unavaila Sandra Aguirre MD Unavailable [phone] Abby Higgins MD PhD Unavailable + Adrian Martinez MD Unavailable Vera Pérez Unavailable Jim Frausto MD Unavailable Анна Robert RN Unavailable [phone] Encounter Details Date Type Department Care Team (Late st Contact Info) Description 07/13/2017 Orders Only [facility] IM CAR CLINCONV Provider, Max, [address] [place] [address] Social History Tobacco Use Types Packs/Day Years Used Date Smoking Tobacco: Former Sex and Gender Information Value Date Recorded Sex Assigned at Not on file Legal Sex Male 12:58 AM DROP BOARD WORKER Gender Identity Male 11/11/2018 10:31 AM CDT Sexual Orientation Straight 06/09/2019 5: 34 PM DROP BOARD WORKER documented as of this encounter Plan [...] COVID: Suspected 06/07/2023 06/07/2023 06/07/2023 12:46 PM DROP BOARD WORKER COVID19 06/07/2023 06/07/2023 06/22/2023 3:06 AM DROP BOARD WORKER COVID: Recovered Comment:Added based on recent COVID infection. 06/22/2023 06/22/2023 09/20/2023 3:05 AM C DT COVID: Suspected 07/24/2023 07/24/2023 07/24/2023 3:53 PM DROP BOARD WORKER Diarrhea 07/30/2023 07/30/2023 08/13/2023 3:05 AM DROP BOARD WORKER COVID: Suspected 08/30/2023 08/30/2023 08/30/2023 4:52 PM DROP BOARD WORKER COVID: Suspected 10/12/2023 10/12/2023 10/12/2023 7:57 PM CDT Rhino/Enterovirus 10/12/2023 10/12/2023 10/26/2023 3:05 AM CDT COVID: Suspected 07/10/2024 07/10/2024 07/10/2024 4:53 PM DROP BOARD WORKER COVID: Suspected Comment:07/16/2024 IP Review: no outstanding test, last RPP negative. Mary Tiwari RN 07/16/2024 07/16/2024 10:51 AM DROP BOARD WORKER COVID19 Comment:07/16/2024 IP Review: added by RN, RPP negative. Mary Tiwari RN 07/16/2024 07/16/2024 07/16/2024 10:51 AM DROP BOARD WORKER MRSA Comment:nasalMRSA Isolation Fpc 09/03/24 07/16/2024 08/15/2024 09/03/2024 6:[address] C. difficile suspected 07/19/2024 07/19/202407/19 2:34 PM DROP BOARD WORKER COVID: Suspected 07/23/2024 07/23/2024 07/23/2024 11:28 PM DROP BOARD WORKER C. difficile suspected 07/23/2024 07/24/202407/24 10:31 AM DROP BOARD WORKER Norovirus suspected 07/23/2024 07/24/2024 07/24/19 9:37 AM DROP BOARD WORKER VRE Comment:Contact Precautions (gown and gloves) - not eligible for IP review until 6 months after positive culture - Jerod QURESHI, RN 10/01/24 07/24/2024 09/20/2024 03/19/2025 7:26 PM C DT COVID: Suspected 08/09/2024 08/09/2024 08/09/2024 9:40 AM DROP BOARD WORKER Influenza, adult Comment:08/26/2024 IP Review: pt afebrile but on antipyretics. Needs 24 hours off antipyretics and symptoms significantly improved/resolved in order for isolation to be discontinued. Mary Tiwari RN 08/15/2024 08/15/2024 08/29/2024 3:06 AM DROP BOARD WORKER Coronavirus, droplet 08/15/2024 08/15/202408/29/ 025 3:06 AM DROP BOARD WORKER C. difficile suspected 09/19/2024 09/19/202409/20 3:05 [...] documented as of this encounter Care Teams Sugar Drier Relationship Specialty Start Date End Date Kenton Ricks MD PCP - General 08/14/16 Pebbles Nelson MD Referring Physician Cardiology 02/07/19 Aylin Russ MD [address] [facility] [address] [place] [address] Referring Physician Pulmonary Disease 02/07/19 Maricruz Ramirez FIELD AGENT [address] [facility] [address] [place] [address] Nurse Practitioner Cardiovascular Disease 09/25/21 Joanne Lopez, CONY Registered Nurse Pulmonary Disease 08/24/22 Leatha Cristina RMA Surgical Prehabilitation and Readiness (SPAR) Coordinator 09/01/22 01/02/23 Ben Chahal MD PhD Medical Oncologist/Wire Weaver Cloth Medical Oncology 10/05/22 Chace Oliva MD [address] [place] [address] Consulting Physician Infectious Diseases 12/22/2204/01 Giovanna Alexis MD [address] [place] [address] Radiation Oncologist Radiation Oncology 03/09/23 Taisha Suarez, industrial safety engineer Prehabilitation and Readiness (SPAR) Coordinator General Surgery 03/20/23 04/10/23 Sandra Ma MD Consulting Physician Medical Oncology 04/25/23 05/09/23 Abby Higgins MD PhD Medical Oncologist/Wire Weaver Cloth Medical Oncology 05/10/23 Adrian Martinez MD [address] [facility] DIV SURG TRANSPLANT, [address] [place] [address] Surgical Oncologist Surgical Oncology 05/28/23 Vera Pérez PA [address] [place] [id number] [place] [address] Physician Railroad Wheels And Axle Inspector Colon and Rectal Surgery 09/13/23 Jim Frausto MD [address] [facility] [phone] [place] [address] Surgeon Colon and Rectal Surgery 11/21/23 Анна Robert, RN [address] [facility] [address] [place] [address] SHOP Outpatient Sorter/Assay Tech 09/29/24 10/01/24 documented as of this encounter
--- OUTSIDE RECORDS SUMMARY | 2025-06-04 10:36 | XMS_ITS | Encounter Summary ---
Author Organization [facility] Address [address] [place] [address] Phone Care Team Providers Care Supervisor Plastics Name Role Phone Kenton Ricks MD Primary Care Provider + [phone] Pebbles Nelson MD Unavailable [phone] Aylin Russ MD Unavailable [phone] Maricruz Ramirez NP Unavailable [phone] Joanne Lopez RN Unavailable Padmini Leatha Carter Unavailable Unavailable Ben Chahal MD PhD Unavailable +[phone] Chace Oliva MD Unavailable [phone] Giovanna Alexis MD Unavailable Taisha Suarez RN Unavailable Unavaila Sandra Aguirre MD Unavailable +[phone] Abby Higgins MD PhD Unavailable + Adrian Martinez MD Unavailable [phone] Vera Pérez Unavailable [phone] Jim Frausto MD Unavailable [phone] Анна oRbert RN Unavailable [phone] Encounter Details Date Type Department Care Team [...] on file Legal Sex Male 12:58 AM DANCING MASTER Gender Identity Male 11/11/2018 10:31 AM CDT Sexual Orientation Straight 06/09/2019 5: 34 PM DANCING MASTER documented as of this encounter Plan of [...] COVID: Suspected 06/07/2023 06/07/2023 06/07/2023 12:46 PM DANCING MASTER COVID19 06/07/2023 06/07/2023 06/22/2023 3:06 AM DANCING MASTER COVID: Recovered Comment:Added based on recent COVID infection. 06/22/2023 06/22/2023 09/20/2023 3:05 AM C DT COVID: Suspected 07/24/2023 07/24/2023 07/24/2023 3:53 PM DANCING MASTER Diarrhea 07/30/2023 07/30/2023 08/13/2023 3:05 AM DANCING MASTER COVID: Suspected 08/30/2023 08/30/2023 08/30/2023 4:52 PM DANCING MASTER COVID: Suspected 10/12/2023 10/12/2023 10/12/2023 7:57 PM CDT Rhino/Enterovirus 10/12/2023 10/12/2023 10/26/2023 3:05 AM CDT COVID: Suspected 07/10/2024 07/10/2024 07/10/2024 4:53 PM DANCING MASTER COVID: Suspected Comment:07/16/2024 IP Review: no outstanding test, last RPP negative. Mary Tiwari RN 07/16/2024 07/16/2024 10:51 AM DANCING MASTER COVID19 Comment:07/16/2024 IP Review: added by RN, RPP negative. Mary Tiwari RN 07/16/2024 07/16/2024 07/16/2024 10:51 AM DANCING MASTER MRSA Comment:nasalMRSA Isolation Prison 09/03/24 07/16/2024 08/15/2024 09/03/2024 6:[address] C. difficile suspected 07/19/2024 07/19/202407/19 2:34 PM DANCING MASTER COVID: Suspected 07/23/2024 07/23/2024 07/23/2024 11:28 PM DANCING MASTER C. difficile suspected 07/23/2024 07/24/202407/24 10:31 AM DANCING MASTER Norovirus suspected 07/23/2024 07/24/2024 07/24/19 9:37 AM DANCING MASTER VRE Comment:Contact Precautions (gown and gloves) - not eligible for IP review until 6 months after positive culture - Jerod QURESHI, CONY 10/01/24 07/24/2024 09/20/2024 03/19/2025 7:26 PM C DT COVID: Suspected 08/09/2024 08/09/2024 08/09/2024 9:40 AM DANCING MASTER Influenza, adult Comment:08/26/2024 IP Review: pt afebrile but on antipyretics. Needs 24 hours off antipyretics and symptoms significantly improved/resolved in order for isolation to be discontinued. Mary Tiwari RN 08/15/2024 08/15/2024 08/29/2024 3:06 AM DANCING MASTER Coronavirus, droplet 08/15/2024 08/15/202408/29/ 025 3:06 AM DANCING MASTER C. difficile suspected 09/19/2024 09/19/202409/20 3:05 AM [...] documented as of this encounter Care Teams Supervisor Plastics Relationship Specialty Start Date End Date Kenton Ricks MD PCP - General 08/14/16 Pebbles Nelson MD Referring Physician Cardiology 02/07/19 Aylin Russ MD [address] [facility] [address] [place] [address] Referring Physician Pulmonary Disease 02/07/19 Maricruz Ramirez MASTER BAKER [address] [facility] [address] [place] [address] Nurse Practitioner Cardiovascular Disease 09/25/21 Joanne Lopez, CONY Registered Nurse Pulmonary Disease 08/24/22 Leatha Cristina RMA Surgical Prehabilitation and Readiness (SPAR) Coordinator 09/01/22 01/02/23 Ben Chahal MD PhD Medical Oncologist/Plant Production Manager Medical Oncology 10/05/22 Chace Oliva MD [address] [facility] [address] [place] [address] Consulting Physician Infectious Diseases 12/22/2204/01 Giovanna Alexis MD [address] [facility] [address] [place] [address] Radiation Oncologist Radiation Oncology 03/09/23 Taisha Suarez, physical chemistry teacher Prehabilitation and Readiness (SPAR) Coordinator General Surgery 03/20/23 04/10/23 Sandra Ma MD Consulting Physician Medical Oncology 04/25/23 05/09/23 Abby Higgins MD PhD Medical Oncologist/Plant Production Manager Medical Oncology 05/10/23 Adrian Martinez MD [address] [facility] DIV SURG TRANSPLANT, [address] [place] [address] Surgical Oncologist Surgical Oncology 05/28/23 Vera Pérez PA [address] [place] [id number] [place] [address] Physician Salesman/Owner Colon and Rectal Surgery 09/13/23 Jim Frausto MD [address] [facility] [id number] [place] [address] Surgeon Colon and Rectal Surgery 11/21/23 Анна Robert, RN [address] [facility] [address] [place] [address] SHOP Outpatient Ferris Wheel Attendant 09/29/24 10/01/24 documented as of this encounter
--- OUTSIDE RECORDS SUMMARY | 2025-06-04 10:36 | XMS_ITS | Encounter Summary ---
Author Organization [facility] Address [address] [place] [address] Phone Care Team Providers Care Jewel Lathe Operator Name Role Phone Kenton Ricks MD Primary Care Provider + [phone] Kenton Ricks MD Primary Care Provider + [phone] Pebbles Nelson MD Unavailable [phone] Aylin Russ MD Unavailable [phone] Maricruz Ramirez NP Unavailable [phone] Joanne Lopez RN Unavailable Padmini Leatha Carter Unavailable Unavailable Ben Chahal MD PhD Unavailable +[phone] Chace Oliva MD Unavailable +[phone] Giovanna Alexis MD Unavailable Taisha Suarez RN Unavailable Unavaila Sandra Aguirre MD Unavailable +[phone] Abby Higgins MD PhD Unavailable + Adrian Martinez MD Unavailable Vera Pérez Unavailable [phone] Jim Frausto MD Unavailable [phone] Анна Robert RN Unavailable Encounter Details Date Type Department Care Team (Late st Contact Info) Description 05/19/2016 Orders Only [facility] IM CAR CLINCONV Provider, MD Max [address] [place] [address] Social History Tobacco Use Types Packs/Day Years Used Date Smoking Tobacco: Never Assessed Sex and Gender Information Value Date Recorded Sex Assigned at Not on file Legal Sex Male 12:58 AM BLOCKER AND SEWER Gender Identity Male 11/11/2018 10:31 AM CDT Sexual Orientation Straight 06/09/2019 5: 34 PM BLOCKER AND SEWER documented as of this encounter Plan [...] COVID: Suspected 06/07/2023 06/07/2023 06/07/2023 12:46 PM BLOCKER AND SEWER COVID19 06/07/2023 06/07/2023 06/22/2023 3:06 AM BLOCKER AND SEWER COVID: Recovered Comment:Added based on recent COVID infection. 06/22/2023 06/22/2023 09/20/2023 3:05 AM C DT COVID: Suspected 07/24/2023 07/24/2023 07/24/2023 3:53 PM BLOCKER AND SEWER Diarrhea 07/30/2023 07/30/2023 08/13/2023 3:05 AM BLOCKER AND SEWER COVID: Suspected 08/30/2023 08/30/2023 08/30/2023 4:52 PM BLOCKER AND SEWER COVID: Suspected 10/12/2023 10/12/2023 10/12/2023 7:57 PM CDT Rhino/Enterovirus 10/12/2023 10/12/2023 10/26/2023 3:05 AM CDT COVID: Suspected 07/10/2024 07/10/2024 07/10/2024 4:53 PM BLOCKER AND SEWER COVID: Suspected Comment:07/16/2024 IP Review: no outstanding test, last RPP negative. Mary Tiwari RN 07/16/2024 07/16/2024 10:51 AM BLOCKER AND SEWER COVID19 Comment:07/16/2024 IP Review: added by RN, RPP negative. Mary Tiwari RN 07/16/2024 07/16/2024 07/16/2024 10:51 AM BLOCKER AND SEWER MRSA Comment:nasalMRSA Isolation Fpc 09/03/24 07/16/2024 08/15/2024 09/03/2024 6:[address] C. difficile suspected 07/19/2024 07/19/202407/19 2:34 PM BLOCKER AND SEWER COVID: Suspected 07/23/2024 07/23/2024 07/23/2024 11:28 PM BLOCKER AND SEWER C. difficile suspected 07/23/2024 07/24/202407/24 10:31 AM BLOCKER AND SEWER Norovirus suspected 07/23/2024 07/24/2024 07/24/19 9:37 AM BLOCKER AND SEWER VRE Comment:Contact Precautions (gown and gloves) - not eligible for IP review until 6 months after positive culture - Jerod LEEN, RN 10/01/24 07/24/2024 09/20/2024 03/19/2025 7:26 PM C DT COVID: Suspected 08/09/2024 08/09/2024 08/09/2024 9:40 AM BLOCKER AND SEWER Influenza, adult Comment:08/26/2024 IP Review: pt afebrile but on antipyretics. Needs 24 hours off antipyretics and symptoms significantly improved/resolved in order for isolation to be discontinued. Mary Tiwari, CONY 08/15/2024 08/15/2024 08/29/2024 3:06 AM BLOCKER AND SEWER Coronavirus, droplet 08/15/2024 08/15/2024 025 3:06 AM BLOCKER AND SEWER C. difficile suspected 09/19/2024 09/19/202409/20 3:05 [...] documented as of this encounter Care Teams Jewel Lathe Operator Relationship Specialty Start Date End Date Kenton Ricks MD PCP - General 08/14/16 Kenton Ricks MD PCP - General 09/17/08 08/13/16 Pebbles Nelson MD Referring Physician Cardiology 02/07/19 Aylin Russ MD [address] [facility] [address] [place] [address] Referring Physician Pulmonary Disease 02/07/19 Maricruz Ramirez NP [address] [facility] [address] [place] [address] Nurse Practitioner Cardiovascular Disease 09/25/21 Joanne Lopez, CONY Registered Nurse Pulmonary Disease 08/24/22 Leatha Cristina RMA Surgical Prehabilitation and Readiness (SPAR) Coordinator 09/01/22 01/02/23 Ben Chahal MD PhD Medical Oncologist/Filter Assembler Medical Oncology 10/05/22 Chace Oliva MD [address] [facility] [address] [place] [address] Consulting Physician Infectious Diseases 12/22/2204/01 Giovanna Alexis MD [address] [facility] [address] [place] [address] Radiation Oncologist Radiation Oncology 03/09/23 Taisha Suarez RN Surgical Prehabilitation and Readiness (SPAR) Coordinator General Surgery 03/20/23 04/10/23 Sandra Ma MD Consulting Physician Medical Oncology 04/25/23 05/09/23 Abby Higgins MD PhD Medical Oncologist/Filter Assembler Medical Oncology 05/10/23 Adrian Martinez MD [address] [facility] DIV SURG TRANSPLANT, [facility] [address] [place] [address] Surgical Oncologist Surgical Oncology 05/28/23 Vera Pérez PA [address] [place] [id number] [place] [address] Physician Electrical Line Splicer Colon and Rectal Surgery 09/13/23 Jim Frausto MD [address] [facility] [phone] [place] [address] Surgeon Colon and Rectal Surgery 11/21/23 Анна Robert RN [address] [facility] [address] [place] [address] SHOP Outpatient Formulation Chemist 09/29/24 10/01/24 documented as of this encounter
--- OUTSIDE RECORDS SUMMARY | 2025-06-04 10:36 | XMS_ITS | Encounter Summary ---
Author Organization [facility] Address [address] [place] [address] Phone Care Team Providers Care Stone Engraver Name Role Phone Kenton Ricks MD Primary Care Provider + [phone] Pebbles Nelson MD Unavailable [phone] Aylin Russ MD Unavailable [phone] Maricruz Ramirez NP Unavailable [phone] Joanne Lopez RN Unavailable Padmini Ben Walker MD PhD Unavailable +[phone] Giovanna Alexis MD Unavailable Abby Higgins MD PhD Unavailable + Adrian Martinez MD Unavailable [phone] Vera Pérez Unavailable [phone] Jim Frausto MD Unavailable [phone] Encounter Details Date Type Department Care Team (Late st Contact Info) Description 06/04/2025 Results Follow-Up [facility] Medicine Oncology [address] [place] [address] Brett Lu, CHRISTINE [address] [place] [address] METANEPHRINES, FRACT, FREE, LC/MS/MS, PLASMA Social History Tobacco Use Types Packs/Day Years [...] week 01/13/2025 How often do you attend [facility] or rastafari services? More than 4 times per year 01/13/2025 Do you belong to any clubs o r organizations such as yazdanism groups, unions, fraternal or athletic groups, or [...] Date Recorded PHQ-2 Total Score 1 09/21/2024 [facility] - [...] slept in a alf (including now)? No 11/12/2023 PHQ-9 Answer Date [...] time in the past 12 m [facility], were you homeless or living in a alf (including now)? No 01/13/2025 Social Connection and Isolation Panel Answer Date Recorded In a typical week, how many times do you talk on the phone with family, friends, or neighbors? More than three times a week 04/01/2025 How often do you get togethe r with friends or relatives? More than three times a week 04/01/2025 How often do you attend chur ch or rastafari services? More than 4 times per year 04/01/2025 Do you belong to any clubs o r organizations such as yazdanism groups, unions, fraternal or athletic groups, or [...] time in the past 12 m [facility], were you homeless or living in a alf (including now)? No 04/01/2025 [facility] Utilities Answer Date Recorded In the [...] on file Legal Sex Male 12:58 AM SUGARCANE PLANTER Gender Identity Male 11/11/2018 10:31 AM CDT Sexual Orientation Straight 06/09/2019 5: 34 PM SUGARCANE PLANTER documented as of this encounter Plan of Treatment Not on file documented as of this encounter Visit Diagnoses Not on filedocumented in this encounter Care Teams Stone Engraver Relationship Specialty Start Date End Date Kenton Ricks MD PCP - General 08/14/16 Pebbles Nelson MD Referring Physician Cardiology 02/07/19 Aylin Russ MD [address] [place] [address] Referring Physician Pulmonary Disease 02/07/19 Maricruz Ramirez NP [address] [place] [address] Nurse Practitioner Cardiovascular Disease 09/25/21 Joanne Lopez, RN Registered Nurse Pulmonary Disease 08/24/22 Ben Chahal MD PhD Medical Oncologist/Hematologis t Medical Oncology 10/05/22 Giovanna Alexis MD Radiation Oncologist Radiation Oncology 03/09/23 Abby Higgins MD PhD Medical Oncologist/Hematologis t Medical Oncology 05/10/23 Adrian Martinez MD [address] [facility] DIV SURG TRANSPLANT, [facility] [address] [place] [address] Surgical Oncologist Surgical Oncology 05/28/23 Vera Pérez PA [address] [phone] [place] [address] Physician Garage Door Technician Colon and Rectal Surgery 09/13/23 Jim Frausto MD [address] [facility] [phone] [place] [address] Surgeon Colon and Rectal Surgery 11/21/23 documented as of this encounter
--- OUTSIDE RECORDS SUMMARY | 2025-06-04 10:36 | XMS_ITS | Encounter Summary ---
Author Organization [facility] Address [address] [place] [address] Phone Care Team Providers Care Sanitor Name Role Phone Ketnon Ricks MD Primary Care Provider + [phone] Pebbles Nelson MD Unavailable [phone] Aylin Russ MD Unavailable [phone] Maricruz Ramirez NP Unavailable [phone] Joanne Lpoez RN Unavailable Padmini Ben Walker MD PhD Unavailable +[phone] Giovanna Alexis MD Unavailable Abby Higgins MD PhD Unavailable + Adrian Martinez MD Unavailable [phone] Vera Pérez Unavailable [phone] Jim Frausto MD Unavailable [phone] Encounter Details Date Type Department Care Team (Late st Contact Info) Description 04/24/2025 Results Follow-Up [facility] Medicine Oncology [address] [facility] Floor [address] [place] [address] Ben Chahal MD PhD [address] [place] [address] NM bone scan whole body Social History [...] week 01/13/2025 How often do you attend [facility] or sabianism services? More than 4 times per year 01/13/2025 Do you belong to any clubs o r organizations such as nondenominational groups, unions, fraternal or athletic groups, or [...] Date Recorded PHQ-2 Total Score 1 09/21/2024 [facility] - [...] place to sleep or slept in a custodial (including now)? No 11/12/2023 PHQ-9 Answer Date [...] any time in the past 12 m [facility], were you homeless or living in a custodial (including now)? No 01/13/2025 Social Connection and Isolation Panel Answer Date Recorded In a typical week, how many times do you talk on the phone with family, friends, or neighbors? More than three times a week 04/01/2025 How often do you get togethe r with friends or relatives? More than three times a week 04/01/2025 How often do you attend chur ch or sabianism services? More than 4 times per year 04/01/2025 Do you belong to any clubs o r organizations such as nondenominational groups, unions, fraternal or athletic groups, or [...] any time in the past 12 m [facility], were you homeless or living in a custodial (including now)? No 04/01/2025 [facility] Utilities Answer Date Recorded In the past 12 months has th e [employer], gas, oil, or water company threatened to [...] on file Legal Sex Male 12:58 AM SUPERINTENDENT TRACK Gender Identity Male 11/11/2018 10:31 AM CDT Sexual Orientation Straight 06/09/2019 5: 34 PM SUPERINTENDENT TRACK documented as of this encounter Plan of Treatment Not on file documented as of this encounter Visit Diagnoses Not on filedocumented in this encounter Care Teams Sanitor Relationship Specialty Start Date End Date Kenton Ricks MD PCP - General 08/14/16 Pebbles Nelson MD Referring Physician Cardiology 02/07/19 Aylin Russ MD [address] [place], [place] [address] Referring Physician Pulmonary Disease 02/07/19 Maricruz Ramirez NP [address] [place], [place] [address] Nurse Practitioner Cardiovascular Disease 09/25/21 Joanne Lopez, RN Registered Nurse Pulmonary Disease 08/24/22 Ben Chahal MD PhD Medical Oncologist/Hematologis t Medical Oncology 10/05/22 Giovanna Alexis MD Radiation Oncologist Radiation Oncology 03/09/23 Abby Higgins MD PhD Medical Oncologist/Hematologis t Medical Oncology 05/10/23 Adrian Martinez MD [address] [facility] SURG TRANSPLANT, [address] [place] [address] Surgical Oncologist Surgical Oncology 05/28/23 Vera Pérez PA [address] [place] [id number] [place] [address] Physician Senior Scheduler Colon and Rectal Surgery 09/13/23 Jim Frausto MD [address] [facility] [phone] [place] [address] Surgeon Colon and Rectal Surgery 11/21/23 documented as of this encounter
--- OUTSIDE RECORDS SUMMARY | 2025-06-04 10:36 | XMS_ITS | Encounter Summary ---
Author Organization [facility] Address [address] [place] [address] Phone Care Team Providers Care Facial Operator Name Role Phone Kenton Ricks MD Primary Care Provider + [phone] Kenton Ricks MD Primary Care Provider + [phone] Pebbles Nelson MD Unavailable [phone] Aylin Russ MD Unavailable [phone] Maricruz Ramirez NP Unavailable [phone] Joanne Lopez RN Unavailable Padmini Leatha Carter Unavailable Unavailable Ben Chahal MD PhD Unavailable [phone] Chace Oliva MD Unavailable [phone] Giovanna Alexis MD Unavailable Taisha Suarez RN Unavailable Unavaila Sandra Aguirre MD Unavailable [phone] Abby Higgins MD PhD Unavailable + Adrian Martinez MD Unavailable Vera Pérez Unavailable Jim Frausto MD Unavailable [phone] Анна Robert RN Unavailable [phone] Encounter Details Date Type Department Care Team (Late st Contact Info) Description 06/02/2016 Orders Only [facility]INCONV Provider, MD Max [address] [place] [id number] Social History Tobacco Use Types Packs/Day Years Used Date Smoking Tobacco: Never Assessed Sex and Gender Information Value Date Recorded Sex Assigned at Not on file Legal Sex Male 12:58 AM TIMBER MANAGEMENT SPECIALIST Gender Identity Male 11/11/2018 10:31 AM CDT Sexual Orientation Straight 06/09/2019 5: 34 PM TIMBER MANAGEMENT SPECIALIST documented as of this encounter Plan [...] COVID: Suspected 06/07/2023 06/07/2023 06/07/2023 12:46 PM TIMBER MANAGEMENT SPECIALIST COVID19 06/07/2023 06/07/2023 06/22/2023 3:06 AM TIMBER MANAGEMENT SPECIALIST COVID: Recovered Comment:Added based on recent COVID infection. 06/22/2023 06/22/2023 09/20/2023 3:05 AM C DT COVID: Suspected 07/24/2023 07/24/2023 07/24/2023 3:53 PM TIMBER MANAGEMENT SPECIALIST Diarrhea 07/30/2023 07/30/2023 08/13/2023 3:05 AM TIMBER MANAGEMENT SPECIALIST COVID: Suspected 08/30/2023 08/30/2023 08/30/2023 4:52 PM TIMBER MANAGEMENT SPECIALIST COVID: Suspected 10/12/2023 10/12/2023 10/12/2023 7:57 PM CDT Rhino/Enterovirus 10/12/2023 10/12/202310/26/2023 3:05 AM CDT COVID: Suspected 07/10/2024 07/10/2024 07/10/2024 4:53 PM TIMBER MANAGEMENT SPECIALIST COVID: Suspected Comment:07/16/2024 IP Review: no outstanding test, last RPP negative. Mary Tiwari RN 07/16/2024 07/16/2024 10:51 AM TIMBER MANAGEMENT SPECIALIST COVID19 Comment:07/16/2024 IP Review: added by RN, RPP negative. Mary Tiwari RN 07/16/2024 07/16/2024 07/16/2024 10:51 AM TIMBER MANAGEMENT SPECIALIST MRSA Comment:nasalMRSA Isolation Correction 09/03/24 07/16/2024 08/15/2024 09/03/2024 6:[address] C. difficile suspected 07/19/2024 07/19/202407/19 2:34 PM TIMBER MANAGEMENT SPECIALIST COVID: Suspected 07/23/2024 07/23/2024 07/23/2024 11:28 PM TIMBER MANAGEMENT SPECIALIST C. difficile suspected 07/23/2024 07/24/202407/24 10:31 AM TIMBER MANAGEMENT SPECIALIST Norovirus suspected 07/23/2024 07/24/2024 07/24/19 9:37 AM TIMBER MANAGEMENT SPECIALIST VRE Comment:Contact Precautions (gown and gloves) - not eligible for IP review until 6 months after positive culture - Jerod QURESHI, CONY 10/01/24 07/24/2024 09/20/2024 03/19/2025 7:26 PM C DT COVID: Suspected 08/09/2024 08/09/2024 08/09/2024 9:40 AM TIMBER MANAGEMENT SPECIALIST Influenza, adult Comment:08/26/2024 IP Review: pt afebrile but on antipyretics. Needs 24 hours off antipyretics and symptoms significantly improved/resolved in order for isolation to be discontinued. Mary Tiwari RN 08/15/2024 08/15/2024 08/29/2024 3:06 AM TIMBER MANAGEMENT SPECIALIST Coronavirus, droplet 08/15/2024 08/15/202408/29/ 025 3:06 AM TIMBER MANAGEMENT SPECIALIST C. difficile suspected 09/19/2024 09/19/202409/20 3:05 [...] documented as of this encounter Care Teams Facial Operator Relationship Specialty Start Date End Date Kenton Ricks MD PCP - General 08/14/16 Kenton Ricks MD PCP - General 09/17/08 08/13/16 Pebbles Nelson MD Referring Physician Cardiology 02/07/19 Aylin Russ MD [address] [facility] [address] [place] [address] Referring Physician Pulmonary Disease 02/07/19 Maricruz Ramirez NP [address] [facility] [address] [place] [address] Nurse Practitioner Cardiovascular Disease 09/25/21 Joanne Lopez, CONY Registered Nurse Pulmonary Disease 08/24/22 Leatha Cristina RMA Surgical Prehabilitation and Readiness (SPAR) Coordinator 09/01/22 01/02/23 Ben Chahal MD PhD Medical Oncologist/Stockholder Medical Oncology 10/05/22 Chace Oliva MD [address] [place] [address] Consulting Physician Infectious Diseases 12/22/2204/01 Giovanna Alexis MD [address] [place] [address] Radiation Oncologist Radiation Oncology 03/09/23 Taisha Suarez, veterans service officer Prehabilitation and Readiness (SPAR) Coordinator General Surgery 03/20/23 04/10/23 Sandra Ma MD Consulting Physician Medical Oncology 04/25/23 05/09/23 Abby Higgins MD PhD Medical Oncologist/Stockholder Medical Oncology 05/10/23 Adrian Martinez MD [address] [facility] DIV SURG TRANSPLANT, [address] [place] [address] Surgical Oncologist Surgical Oncology 05/28/23 Vera Pérez PA [address] [place] [phone] [place] [address] Physician Tape Sewer Colon and Rectal Surgery 09/13/23 Jim Frausto MD [address] [facility] [phone] [place] [address] Surgeon Colon and Rectal Surgery 11/21/23 Анна Robert, RN [address] [facility] [address] [place] [address] SHOP Outpatient Unemployment Inspector 09/29/24 10/01/24 documented as of this encounter
--- OUTSIDE RECORDS SUMMARY | 2025-06-04 10:36 | XMS_ITS | Encounter Summary ---
Author Organization [facility] Address [address] [place] [address] Care Team Providers Care Floor Cashier Name Role Phone Kenton Ricsk MD Primary Care Provider + [phone] Pebbles Nelson MD Unavailable [phone] Aylin Russ MD Unavailable [phone] Maricruz Ramirez NP Unavailable [phone] Joanne Lopez RN Unavailable Padmini Leatha Carter Unavailable Unavailable Ben Chahal MD PhD Unavailable +[phone] Chace Oliva MD Unavailable [phone] Giovanna Alexis MD Unavailable Taisha Suarez RN Unavailable Unavaila Sandra Aguirre MD Unavailable [phone] Abby Higgins MD PhD Unavailable + Adrian Martinez MD Unavailable [phone] Vera Pérez Unavailable Jim Frausto MD Unavailable [phone] Анна Robert RN Unavailable [phone] Encounter Details Date Type Department Care Team (Late st Contact Info) Description 08/12/2020 Telephone [facility] [address] [address] Hallie Whitaker, RT Social History Tobacco Use Types Packs/Day Years Used Date Smoking Tobacco: Former Smokeless Tobacco: Never Alcohol Use Standard Drinks/Week Comments Yes 0 (1 standard drink = 0.6 oz pur e alcohol) Occassional Sex and Gender Information Value Date Recorded Sex Assigned at Not on file Legal Sex Male 12:58 AM FERRY TERMINAL SUPERVISOR Gender Identity Male 11/11/2018 10:31 AM CDT Sexual Orientation Straight 06/09/2019 5: 34 PM FERRY TERMINAL SUPERVISOR documented as of this encounter Plan [...] COVID: Suspected 06/07/2023 06/07/2023 06/07/2023 12:46 PM FERRY TERMINAL SUPERVISOR COVID19 06/07/2023 06/07/2023 06/22/2023 3:06 AM FERRY TERMINAL SUPERVISOR COVID: Recovered Comment:Added based on recent COVID infection. 06/22/2023 06/22/2023 09/20/2023 3:05 AM C DT COVID: Suspected 07/24/2023 07/24/2023 07/24/2023 3:53 PM FERRY TERMINAL SUPERVISOR Diarrhea 07/30/2023 07/30/2023 08/13/2023 3:05 AM FERRY TERMINAL SUPERVISOR COVID: Suspected 08/30/2023 08/30/2023 08/30/2023 4:52 PM FERRY TERMINAL SUPERVISOR COVID: Suspected 10/12/2023 10/12/2023 10/12/2023 7:57 PM CDT Rhino/Enterovirus 10/12/2023 10/12/2023 10/26/2023 3:05 AM CDT COVID: Suspected 07/10/2024 07/10/2024 07/10/2024 4:53 PM FERRY TERMINAL SUPERVISOR COVID: Suspected Comment:07/16/2024 IP Review: no outstanding test, last RPP negative. Mary Tiwari RN 07/16/2024 07/16/2024 10:51 AM FERRY TERMINAL SUPERVISOR COVID19 Comment:07/16/2024 IP Review: added by RN, CLAUDIO negative. Mary Tiwari RN 07/16/2024 07/16/2024 07/16/2024 10:51 AM FERRY TERMINAL SUPERVISOR MRSA Comment:nasalMRSA Isolation Mcc 09/03/24 07/16/2024 08/15/2024 09/03/2024 6:[address] C. difficile suspected 07/19/2024 07/19/202407/19 2:34 PM FERRY TERMINAL SUPERVISOR COVID: Suspected 07/23/2024 07/23/2024 07/23/2024 11:28 PM FERRY TERMINAL SUPERVISOR C. difficile suspected 07/23/2024 07/24/202407/24 10:31 AM FERRY TERMINAL SUPERVISOR Norovirus suspected 07/23/2024 07/24/2024 07/24/19 9:37 AM FERRY TERMINAL SUPERVISOR VRE Comment:Contact Precautions (gown and gloves) - not eligible for IP review until 6 months after positive culture - Jerod QURESHI, CONY 10/01/24 07/24/2024 09/20/2024 03/19/2025 7:26 PM C DT COVID: Suspected 08/09/2024 08/09/2024 08/09/2024 9:40 AM FERRY TERMINAL SUPERVISOR Influenza, adult Comment:08/26/2024 IP Review: pt afebrile but on antipyretics. Needs 24 hours off antipyretics and symptoms significantly improved/resolved in order for isolation to be discontinued. Mary Tiwari RN 08/15/2024 08/15/2024 08/29/2024 3:06 AM FERRY TERMINAL SUPERVISOR Coronavirus, droplet 08/15/2024 08/15/2024 025 3:06 AM FERRY TERMINAL SUPERVISOR C. difficile suspected 09/19/2024 09/19/202409/20 3:05 [...] documented as of this encounter Care Teams Floor Cashier Relationship Specialty Start Date End Date Kenton Ricks MD PCP - General 08/14/16 Pebbles Nelson MD Referring Physician Cardiology 02/07/19 Aylin Russ MD [address] [facility] [address] [place] [address] Referring Physician Pulmonary Disease 02/07/19 Maricruz Ramirez, INVESTOR RELATIONS SPECIALIST [address] [place] [address] Nurse Practitioner Cardiovascular Disease 09/25/21 Joanne Lopez, CONY Registered Nurse Pulmonary Disease 08/24/22 Leatha Cristina RMA Surgical Prehabilitation and Readiness (SPAR) Coordinator 09/01/22 01/02/23 Ben Chahal MD PhD Medical Oncologist/Spa Coordinator Medical Oncology 10/05/22 Chace Oliva MD [address] [facility] [address] [place] [address] Consulting Physician Infectious Diseases 12/22/2204/01 Giovanna Alexis MD [address] [facility] [address] [place] [address] Radiation Oncologist Radiation Oncology 03/09/23 Taisha Suarez, cafeteria counter attendant Prehabilitation and Readiness (SPAR) Coordinator General Surgery 03/20/23 04/10/23 Sandra aM MD Consulting Physician Medical Oncology 04/25/23 05/09/23 Abby Higgins MD PhD Medical Oncologist/Spa Coordinator Medical Oncology 05/10/23 Adrian Martinez MD [address] [facility] DIV SURG TRANSPLANT, [facility] [address] [place] [address] Surgical Oncologist Surgical Oncology 05/28/23 Vera Pérez PA [address] [place] [phone] [place] [address] Physician Registered Medical Assistant Colon and Rectal Surgery 09/13/23 Jim Frausto MD [address] [phone] [place], [place] [address] Surgeon Colon and Rectal Surgery 11/21/23 Анна Robert, RN [address] [facility] [address] [place], [place] [id number] SHOP Outpatient Home Care Specialist 09/29/24 10/01/24 documented as of this encounter
--- OUTSIDE RECORDS SUMMARY | 2025-06-04 10:37 | XMS_ITS | Encounter Summary ---
Author Organization [facility] Address [address] [place] [address] Care Team Providers Care Ceramics Artist Name Role Phone Kenton Ricks MD Primary Care Provider [phone] Encounter Details Date Type Department Care Team (Late st Contact Info) Description 07/23/2001 Outpatient Historical Division of Neurology [address] [address] Shabbir Villavicencio MD [address] [facility] [address] [place] [address] Social History Tobacco Use Types Packs/Day Years Used Date Smoking Tobacco: Never Assessed Sex and Gender Information Value Date Recorded Sex Assigned at Not on file Legal Sex Male 4:35 AM FOURDRINIER TENDER Gender Identity Not on file Sexual Orientation Not on file documented as of this encounter Plan of Treatment Not on file documented as of this encounter Visit Diagnoses Not on filedocumented in this encounter Care Teams Ceramics Artist Relationship Specialty Start Date End Date Kenton Ricks MD [address] [place] [address] PCP - General Family Practice 11/15/18 documented as of this encounter
--- OUTSIDE RECORDS SUMMARY | 2025-06-04 10:37 | XMS_ITS | Encounter Summary ---
Author Organization [facility] Address [address] [place] [address] Care Team Providers Care Drop Crew Laborer Name Role Phone Kenton Ricks MD Primary Care Provider [phone] Encounter Details Date Type Department Care Team (Late st Contact Info) Description 09/30/2001 Outpatient [facility] [address] [place] [address]. [place] [address] Anika Rowan MD NO ADDRESS ON FILE Social History Tobacco Use Types Packs/Day Years Used Date Smoking Tobacco: Never Assessed Sex and Gender Information Value Date Recorded Sex Assigned at Not on file Legal Sex Male 4:35 AM SUPPORT SERVICES SPECIALIST Gender Identity Not on file Sexual Orientation Not on file documented as of this encounter Plan of Treatment Not on file documented as of this encounter Visit Diagnoses Not on filedocumented in this encounter Care Teams Drop Crew Laborer Relationship Specialty Start Date End Date Kenton Ricks MD [address] [place] [address] PCP - General Family Practice 11/15/18 documented as of this encounter
--- OUTSIDE RECORDS SUMMARY | 2025-06-04 10:37 | XMS_ITS ---
Author Organization [facility] Address [address] [place] [address] Care Team Providers Care Front End Engineer Name Role Phone Kenton Ricks MD Primary Care Provider + [phone] Pebbles Nelson MD Unavailable [phone] Aylin Russ MD Unavailable [phone] Maricruz Ramirez NP Unavailable [phone] Joanne Lopez RN Unavailable Padmini Ben Walker MD PhD Unavailable [phone] Giovanna Alexis MD Unavailable Abby Higgins MD PhD Unavailable + Adrian Martinez MD Unavailable [phone] Vera Pérez Unavailable [phone] Jim Frausto MD Unavailable [phone] Active Problems Problem Noted Date Diagnosed Date [...] 08/23/2024 Assessment & Plan (08/26/2024 3:51 PM AUTOMOTIVE PARTS COORDINATOR): The patient reported left eye pain with [...] 08/11/2024 Assessment & Plan (08/26/2024 4:05 PM AUTOMOTIVE PARTS COORDINATOR): Patient developed hematemesis on 08/11 with hypotension [...] 08/04/2024 Assessment & Plan (08/22/2024 10:54 PM AUTOMOTIVE PARTS COORDINATOR): Started allopurinol this admission Moderate protein-calorie malnutrition [...] PPI Assessment & Plan (08/11/2024 8:44 PM AUTOMOTIVE PARTS COORDINATOR): - Recent admission 07/10-07/20 for abd pain. [...] 07/16/2024 Assessment & Plan (07/20/2024 11:28 AM AUTOMOTIVE PARTS COORDINATOR): - Resulted with Nystatin Anal fissure 11/21/2023 Assessment & Plan (01/15/2025 11:15 AM CDT): -Continue prn lidocaine HI and nifedipine ointment Assessment & Plan (01/14/2025 11:42 AM CDT): -Continue prn lidocaine HI and nifedipine ointment Assessment & Plan (01/13/2025 12:04 PM CDT): -Continue prn lidocaine HI and nifedipine ointment Assessment & Plan (01/13/2025 1:06 AM CDT): -Continue prn lidocaine HI and nifedipine ointment Assessment & Plan (12/10/2024 [...] topical CCB - cannot obtain her at [facility] Assessment & Plan (11/22/2024 12:07 PM CDT): - psyllium qAM, added miralax daily - Added lidocaine jelly qid prn - Sitz baths BID - Will try to start topical CCB - cannot obtain her at [facility] Assessment & Plan (11/21/2024 11:50 AM CDT): - psyllium qAM, added miralax daily - Added lidocaine jelly qid prn - Sitz baths BID - Will try to start topical CCB - cannot obtain her at [facility] Assessment & Plan (11/20/2024 11:11 [...] albuterol Assessment & Plan (08/26/2024 4:00 PM AUTOMOTIVE PARTS COORDINATOR): Cont. breo ellipta, prn albuterol Iron deficiency [...] 07/25/2023 Assessment & Plan (07/26/2023 12:35 PM AUTOMOTIVE PARTS COORDINATOR): - Likely multifactorial 2/2 malignancy, recent whipple, chemotherapy, and pain - Very poor PO intake - RD c/s - Started Mirtazapine - Dietary supplementation - Increased Creon as above Malaise 07/24/2023 Assessment & Plan (07/25/2023 2:16 PM AUTOMOTIVE PARTS COORDINATOR): - RVP negative - Improving Kidney lesion 07/21/2023 Assessment & Plan (07/25/2023 2:21 PM AUTOMOTIVE PARTS COORDINATOR): - Left renal cyst noted since at [...] prn Assessment & Plan (07/26/2023 12:33 PM AUTOMOTIVE PARTS COORDINATOR): - Acute on chronic epigastric pain following [...] 07/09/2023 Assessment & Plan (07/24/2023 5:22 PM AUTOMOTIVE PARTS COORDINATOR): - Replace per protocol Class 1 obesity due to exces s calories with serious comorbidity and body mass index (BMI) of 34.0 to 34.9 in adult 06/01/2023 H/O Whipple procedure 05/30/2023 Gastrointestinal hemorrhage 05/30/2023 Assessment & Plan (07/14/2024 12:30 PM AUTOMOTIVE PARTS COORDINATOR): History of Postoperative GI bleed. EGD 05/09/23 [...] 02/05/2023 Assessment & Plan (07/21/2023 2:06 AM AUTOMOTIVE PARTS COORDINATOR): Also has Hx of prostate cancer s/p [...] 11/21/2022 Assessment & Plan (08/26/2024 4:05 PM AUTOMOTIVE PARTS COORDINATOR): The patient presented with elevated alkaline phosphatase [...] he is scheduled MRI in December at [facility] (requires cardiac monitoring due to ICD) - he is hoping to have this done sooner. Ileus 11/21/2022 Assessment & Plan (07/20/2024 11:29 AM AUTOMOTIVE PARTS COORDINATOR): - KUB done 07/13 showing ileus without [...] 10/08/2022 Assessment & Plan (07/21/2023 2:04 AM AUTOMOTIVE PARTS COORDINATOR): Diagnosed in August 2022, now s/p course of Eliquis. Presented with trace b/l lower ext edema, b/l erythema and mild tenderness which per patient is increased from baseline. Had similar presentation last hospitalization and LE duplex 06/07 was negative - CTM and consider rescanning if persistent Assessment & Plan (06/09/2023 4:47 PM AUTOMOTIVE PARTS COORDINATOR): Hx of DVT in August 2022, he [...] of mets or infection and transferred from [facility] to [facility]. 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 - CT neck/soft tissue with contrast: [...] due to ICD. Plan to transfer to [facility] for further evaluation w/ possible MRI brain and LP. Rash 09/23/2022 Assessment & Plan (06/12/2023 3:50 PM AUTOMOTIVE PARTS COORDINATOR): - contact dermatitis? Not concerned about drug [...] to melisa skin necrosis. - transfer to [facility] for derm eval Anemia 09/22/2022 Assessment & Plan (07/26/2023 12:35 PM AUTOMOTIVE PARTS COORDINATOR): Acute on chronic. 7.4 on admission. 5 [...] negative. Assessment & Plan (06/12/2023 3:46 PM AUTOMOTIVE PARTS COORDINATOR): HGb 7, plt 94, wbc 1.4, abs [...] 09/22/2022 Assessment & Plan (07/26/2023 12:34 PM AUTOMOTIVE PARTS COORDINATOR): Has Hx of ileus. On scheduled Linzess, Miralax and PRN Senna-Docusate at home. Patient states he's been having 4-5 soft stools daily - Increased Creon as above. Bowel regimen. Assessment & Plan (06/07/2023 11:26 PM AUTOMOTIVE PARTS COORDINATOR): Continue home regimen of Linzess, Miralax and [...] (08/30/2022): Added automatically from request for surgery [id number] Assessment & Plan (10/15/2023 2:34 PM CDT): Hx of L axillary nodes on CT increased from prior study Should f/u with Dr. Chahal Assessment & Plan (10/13/2023 2:03 PM CDT): Hx of L axillary nodes on CT increased from prior study Should f/u with Dr. Chahal Assessment & Plan (07/26/2023 12:31 PM AUTOMOTIVE PARTS COORDINATOR): - s/p whipple. Follows with Dr. Chahal [...] plan to hold of next cycle of Lena/Abraxane till infectious etiology is ruled out Assessment [...] plan to hold of next cycle of Lena/Abraxane till infectious etiology is ruled out Assessment [...] surveillance Assessment & Plan (08/26/2024 4:00 PM AUTOMOTIVE PARTS COORDINATOR): s/p whipple with PV/SMV resection (04/2023) and neoadjuvant chemo (completed 08/2023). Most recent scan showed no evidence of disease recurrence Currently on surveillance with CA 19-[address] CAP every 3 months Assessment & Plan (07/10/2024 10:48 PM AUTOMOTIVE PARTS COORDINATOR): Pancreatic cancer s/p Whipple with PV/SMV resection on 04/11/2023 s/p neoadjuvant tx, On surveillance OP follow up. Assessment & Plan (06/08/2023 5:32 PM AUTOMOTIVE PARTS COORDINATOR): Pancreatic adenocarcinoma sp Whipple, now on Gemcitabine [...] 1 Assessment & Plan (08/25/2022 12:23 PM AUTOMOTIVE PARTS COORDINATOR): Recurrent UTI followed by ID with scrotal [...] 06/09/2019 Assessment & Plan (06/09/2019 12:54 PM AUTOMOTIVE PARTS COORDINATOR): He is agreeable to rescheduling the splenic [...] aldactone Assessment & Plan (07/14/2024 12:35 PM AUTOMOTIVE PARTS COORDINATOR): HFpEF Euvolemic, normotensive On hold diuretics for now given pt NPO on IVF for ileus, will restart once able to take in po Assessment & Plan (06/11/2023 10:01 PM AUTOMOTIVE PARTS COORDINATOR): ECHO 11/21 EF 69%, grade I diastolic [...] diet Assessment & Plan (08/24/2022 1:10 PM AUTOMOTIVE PARTS COORDINATOR): Stable, continued torsemide, spironolactone Assessment & Plan (09/24/2021 12:42 AM CDT): Patient is feeling better. states legs have decreased by half. Continue with IV lasix. Continue to monitor Cr and lytes as we diurese. Holding torsemide. Continue aldactone with hold parameters. Assessment & Plan (08/18/2018 1:16 AM AUTOMOTIVE PARTS COORDINATOR): Patient presented with increased shortness of breath [...] NPPV Assessment & Plan (08/26/2024 4:02 PM AUTOMOTIVE PARTS COORDINATOR): continue nightly CPAP Assessment & Plan (07/21/2023 6:17 AM AUTOMOTIVE PARTS COORDINATOR): Desaturations noted in the ED during sleep per on monitor while on RA (not recorded) - continue nightly BiPAP Assessment & Plan (06/07/2023 11:32 PM AUTOMOTIVE PARTS COORDINATOR): Continue nightly BiPAP Assessment & Plan (03/18/2023 [...] center Assessment & Plan (08/24/2022 1:08 PM AUTOMOTIVE PARTS COORDINATOR): - home CPAP machine use Assessment & Plan (09/24/2021 12:39 AM CDT): Patient has home NPPV which has been reordered. Assessment & Plan (08/18/2018 1:17 AM AUTOMOTIVE PARTS COORDINATOR): Patient with a history of of bilateral diaphragmatic paralysis with central and obstructive sleep apnea. Restart CPAP Shortness of breath at rest 08/18/2018 Assessment & Plan (08/18/2018 1:27 AM AUTOMOTIVE PARTS COORDINATOR): Patient with complex past medical history with [...] 07/26/2018 Assessment & Plan (08/26/2024 4:05 PM AUTOMOTIVE PARTS COORDINATOR): H/o vtach s/p ICD 2014 EP consulted for MRCP earlier in admission. Patient's device is conditioned for MRI. Risk stratification: standard Assessment & Plan (07/10/2024 10:38 PM AUTOMOTIVE PARTS COORDINATOR): History of ventricular tachycardia ICD in place Assessment & Plan (07/21/2023 2:11 PM AUTOMOTIVE PARTS COORDINATOR): Follows with Dr. Nelson in EP for [...] Aug Assessment & Plan (06/11/2023 9:59 PM AUTOMOTIVE PARTS COORDINATOR): Follows with Dr. Nelson in EP for history of VT s/p ICD. Denies any recent shocks, as per not there was unscheduled alarm this month due to RV lead impedance. Has outpatient appointment in August Outpatient follow up with EP Assessment & Plan (03/18/2023 1:23 AM CDT): Monitor. MRI conditional. If needs MRI, will need to go to [facility]. Assessment & Plan (02/05/2023 6:58 [...] ordered Assessment & Plan (08/18/2018 1:17 AM AUTOMOTIVE PARTS COORDINATOR): Last device interrogation was in July of [...] s/p shoulder surgery. Follows with Dr. Russ ([facility]) as OP. On Symbicort at home. 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 Russ - c/w Breo-Ellipta Assessment & Plan (08/18/2018 1:17 AM AUTOMOTIVE PARTS COORDINATOR): Continue with gabapentin Chronic heart failure with [...] PO Assessment & Plan (08/26/2024 4:06 PM AUTOMOTIVE PARTS COORDINATOR): Volume down on admission due to diarrhea, now appear slightly volume up, likely I/s/o transfusions and held diuretics Continue to hold home torsemide and spironolactone for now, consider gently resuming prior to discharge Assessment & Plan (07/26/2023 12:34 PM AUTOMOTIVE PARTS COORDINATOR): BLE edema with erythema noted on exam. [...] elevated at home, he can contact his PCP/nematology teacher for further insulin adjustments. Assessment & Plan [...] regimen Assessment & Plan (08/26/2024 4:05 PM AUTOMOTIVE PARTS COORDINATOR): Last A1c 8.4. Home regimen: tresiba 45 units, novolog 12 units w/ breakfast and dinner, 8 units with lunch and sliding scale 1:50 > 150 Continue lantus 5 units qam + SSI Assessment & Plan (07/17/2024 2:29 PM AUTOMOTIVE PARTS COORDINATOR): - On tresiba 24U Qam and Lispro [...] hdssi Assessment & Plan (07/26/2023 12:33 PM AUTOMOTIVE PARTS COORDINATOR): Insulin dependant. Home regimen: Tresiba 42 units qam, Meal-time insulin 15u tid, SSI. Has had poor oral intake over last 2-3 weeks. He mentions his Stephen 2 sensor has been recording low sugars in 40s-50s overnight for 1 week - SSI inpatient - QID accuchecks Assessment & Plan (06/08/2023 5:39 PM AUTOMOTIVE PARTS COORDINATOR): Hgb1c 8.4% in 04/23, follows with endo [...] -SSI Assessment & Plan (08/24/2022 1:07 PM AUTOMOTIVE PARTS COORDINATOR): -Home regimen metformin + Tresiba 35 units qAM and novolog 11 units with meals plus SSI -Continue basal bolus regimen, dose reduced while inpatient -Accuchecks Assessment & Plan (09/24/2021 12:38 AM CDT): Patient on PO hypoglycemics. Monitor on SSI. Assessment & Plan (06/09/2019 12:53 PM AUTOMOTIVE PARTS COORDINATOR): Diet controlled. A1C at goal. On ARB. [...] 09/06/2015 Assessment & Plan (06/09/2019 12:49 PM AUTOMOTIVE PARTS COORDINATOR): Nodule has not grown on interim imaging. Needs low dose dexamethasone suppression test annually x 5 years since initial evaluation given propensity of some adrenal nodules to become cortisol secreting overtime. Thyroid nodule 09/06/2015 Assessment & Plan (06/09/2019 12:48 PM AUTOMOTIVE PARTS COORDINATOR): S/p FNA with benign cytology. Will repeat US in the spring to monitor biopsied thyroid nodule for growth. Multinodular goiter 05/10/2015 Hernia of abdominal wall 02/18/2015 Assessment & Plan (06/09/2019 12:54 PM AUTOMOTIVE PARTS COORDINATOR): He will follow up with Dr. 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 Higgins in medical oncology [...] 02/23/2012 Assessment & Plan (08/26/2024 4:06 PM AUTOMOTIVE PARTS COORDINATOR): continue home rosuvastatin consider resuming ASA Assessment & Plan (07/10/2024 10:44 PM AUTOMOTIVE PARTS COORDINATOR): Cath in 10/2023 nonobstructive coronary artery disease [...] asthma Assessment & Plan (07/21/2023 2:06 AM AUTOMOTIVE PARTS COORDINATOR): Follows with Dr. Nelson - Continue home Breo and PRN albuterol inhaler Assessment & Plan (06/07/2023 11:31 PM AUTOMOTIVE PARTS COORDINATOR): Follows with Dr. Nelson in pulmonary -Continue home Breo and PRN albuterol inhaler Assessment & Plan (09/25/2022 1:41 AM CDT): -Continue home inhalers. Assessment & Plan (09/22/2022 11:00 AM CDT): Continue home inhalers. Assessment & Plan (08/21/2022 4:13 AM AUTOMOTIVE PARTS COORDINATOR): -Symbicort replaced with formulary Breo Ellipta while [...] 08/23/2024 Assessment & Plan (08/22/2024 8:41 PM AUTOMOTIVE PARTS COORDINATOR): Fevers + O2 requirement Aug 14, subsequently found to be positive for Influenza A and Coronavirus ([id number]). 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 S/p tamiflu, Linezolid (08/15-08/18), Cefepime (08/15- 08/17), Ciprofloxacin (08/08). Currently on RA. - supportive care Dysuria 07/25/2024 08/24/2024 Assessment & Plan (08/22/2024 10:12 PM AUTOMOTIVE PARTS COORDINATOR): Now resolved. UA on admission with leuk [...] 07/25/2024 Assessment & Plan (07/29/2024 3:21 PM AUTOMOTIVE PARTS COORDINATOR): Pt reports new burning pain around left axilla that wraps to the front of his chest. Notes he had this before and area began draining pus and had a foul odor - no erythema or rash noted -Us L axilla- no signs of any fluid collection or lymphadenopathy - already on gabapentin KRISTA (acute kidney injury) 07/24/2024 Assessment & Plan (08/02/2024 11:26 AM AUTOMOTIVE PARTS COORDINATOR): Resolved - Baseline Cr 0.5. Cr on admission was 1.01 - Likely pre-renal due to diarrhea - improved with IVF Dehydration 07/24/2024 08/26/2024 Assessment & Plan (07/26/2024 12:35 PM AUTOMOTIVE PARTS COORDINATOR): - due to diarrhea - s/p 1L IVF bolus in [facility] and maintenance IVF Diarrhea 07/19/2024 08/24/2024 Assessment & Plan (08/09/2024 2:16 PM AUTOMOTIVE PARTS COORDINATOR): - P/w 1-day history of 7-8 episodes [...] resolved Assessment & Plan (07/20/2024 11:33 AM AUTOMOTIVE PARTS COORDINATOR): - Developed after resolution of ileus. - C diff negative - Increased Creon back to home dose - Imodium prn - Hold Linzess until diarrhea resolved Abdominal pain 11/09/2023 08/25/2024 Assessment & Plan (08/11/2024 8:39 PM AUTOMOTIVE PARTS COORDINATOR): Acute on chronic abdominal pain. Likely multifactorial, [...] hematemesis Assessment & Plan (07/14/2024 12:31 PM AUTOMOTIVE PARTS COORDINATOR): Hx of pancreatic cancer s/p whipple presented [...] NSAIDs Assessment & Plan (07/10/2024 9:32 PM AUTOMOTIVE PARTS COORDINATOR): Hx of pancreatic cancer s/p whipple presented [...] 08/24/2024 Assessment & Plan (08/11/2024 8:40 PM AUTOMOTIVE PARTS COORDINATOR): Complained chest pain at left chest while [...] 08/01/2024 Assessment & Plan (08/01/2024 2:54 PM AUTOMOTIVE PARTS COORDINATOR): -has ICD in place Assessment & Plan [...] 03/31/2025 Assessment & Plan (06/12/2023 3:47 PM AUTOMOTIVE PARTS COORDINATOR): Presented with 3 days of fever, dry [...] 08/22/2024 Assessment & Plan (08/05/2024 11:42 PM AUTOMOTIVE PARTS COORDINATOR): RESOLVED. DDx include viral infection vs transient [...] prn. Assessment & Plan (07/20/2024 11:30 AM AUTOMOTIVE PARTS COORDINATOR): - Developed fever 38.4 C on 07/16 [...] which raise concern for an infectious syndrome -BACON SKINNER swab RPP negative -check blood cultures; hold [...] 10/28/2022 Assessment & Plan (08/24/2022 1:12 PM AUTOMOTIVE PARTS COORDINATOR): Referred pancreatitis pain. 12 lead EKG shows no acute changes, baseline NSR with RBB and intrafascicular block. Trop negative. Elevated transaminase level 08/21/2022 10/28/2022 Assessment & Plan (08/24/2022 1:10 PM AUTOMOTIVE PARTS COORDINATOR): First noted to have elevated alk phos, [...] 023 Assessment & Plan (08/22/2022 2:20 PM AUTOMOTIVE PARTS COORDINATOR): Diagnosed as outpatient and started on fidaxomicin by ID 08/16/2022. Still with persistent diarrhea. -Continue fidaxomicin -ID following Pancreatic lesion 08/20/2022 10/28/2022 Overview (08/21/2022): Added automatically from request for surgery [id number] Assessment & Plan (08/24/2022 1:08 PM AUTOMOTIVE PARTS COORDINATOR): S/P EUS wit FNA confirmed adenocarcinoma. GI arranging oncology and surgical follow up as outpatient Urinary tract infection asso ciated with cystostomy catheter, initial encounter 04/09/2022 0 10/28/2022 Brugada syndrome 07/09/2020 09/10/2020 Cough in adult 06/09/2019 10/28/2022 Assessment & Plan (06/09/2019 12:52 PM AUTOMOTIVE PARTS COORDINATOR): This appears to be chronic and persist despite switching from ACEI to ARB. He will contact his historical guide to follow up regarding this. Urinary incontinence 08/18/2018 023 Assessment & Plan (08/18/2018 1:22 AM AUTOMOTIVE PARTS COORDINATOR): Continue with Myrbetriq and vesicare Polymorphic ventricular [...] 10/28/2022 Assessment & Plan (06/09/2019 12:47 PM AUTOMOTIVE PARTS COORDINATOR): Congratulated on recent weight loss. Continue attention to diet, low carb, exercise as able. 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
--- OUTSIDE RECORDS SUMMARY | 2025-06-04 10:37 | XMS_ITS | Encounter Summary ---
Author Organization [facility] Address [address] [place] [address] Phone Care Team Providers Care Help Desk Manager Name Role Phone Kenton Ricks MD Primary Care Provider + [phone] Kenton Ricks MD Primary Care Provider + [phone] Pebbles Nelson MD Unavailable [phone] Aylin Russ MD Unavailable [phone] Maricruz Ramirez NP Unavailable [phone] Joanne Lopez RN Unavailable Padmini Leatha Carter Unavailable Unavailable Ben Chahal MD PhD Unavailable [phone] Chace Oliva MD Unavailable [phone] Giovanna Alexis MD Unavailable Taisha Suarez RN Unavailable Unavaila Sandra Aguirre MD Unavailable [phone] Abby Higgins MD PhD Unavailable + Adrian Martinez MD Unavailable Vera Pérez Unavailable [phone] Jim Frausto MD Unavailable [phone] Анна Robert RN Unavailable [phone] Encounter Details Date Type Department Care Team (Late st Contact Info) Description 03/14/2016 Orders Only [facility] Provider, MD Max [address] [place] [id number] Social History Tobacco Use Types Packs/Day Years Used Date Smoking Tobacco: Never Assessed Sex and Gender Information Value Date Recorded Sex Assigned at Not on file Legal Sex Male 12:58 AM ICHTHYOLOGIST Gender Identity Male 11/11/2018 10:31 AM CDT Sexual Orientation Straight 06/09/2019 5: 34 PM ICHTHYOLOGIST documented as of this encounter Plan of [...] COVID: Suspected 06/07/2023 06/07/2023 06/07/2023 12:46 PM ICHTHYOLOGIST COVID19 06/07/2023 06/07/2023 06/22/2023 3:06 AM ICHTHYOLOGIST COVID: Recovered Comment:Added based on recent COVID infection. 06/22/2023 06/22/2023 09/20/2023 3:05 AM C DT COVID: Suspected 07/24/2023 07/24/2023 07/24/2023 3:53 PM ICHTHYOLOGIST Diarrhea 07/30/2023 07/30/2023 08/13/2023 3:05 AM ICHTHYOLOGIST COVID: Suspected 08/30/2023 08/30/2023 08/30/2023 4:52 PM ICHTHYOLOGIST COVID: Suspected 10/12/2023 10/12/2023 10/12/2023 7:57 PM CDT Rhino/Enterovirus 10/12/2023 10/12/202310/2510/26/2023 3:05 AM CDT COVID: Suspected 07/10/2024 07/10/2024 07/10/2024 4:53 PM ICHTHYOLOGIST COVID: Suspected Comment:07/16/2024 IP Review: no outstanding test, last RPP negative. Mary Tiwari RN 07/16/2024 07/16/2024 10:51 AM ICHTHYOLOGIST COVID19 Comment:07/16/2024 IP Review: added by RN, RPP negative. Mary Tiwari RN 07/16/2024 07/16/2024 07/16/2024 10:51 AM ICHTHYOLOGIST MRSA Comment:nasalMRSA Isolation [facility] 09/03/24 07/16/2024 08/15/2024 09/03/2024 6:[address] C. difficile suspected 07/19/2024 07/19/202407/19 2:34 PM ICHTHYOLOGIST COVID: Suspected 07/23/2024 07/23/2024 07/23/2024 11:28 PM ICHTHYOLOGIST C. difficile suspected 07/23/2024 07/24/202407/24 10:31 AM ICHTHYOLOGIST Norovirus suspected 07/23/2024 07/24/2024 07/24/19 9:37 AM ICHTHYOLOGIST VRE Comment:Contact Precautions (gown and gloves) - not eligible for IP review until 6 months after positive culture - Jerod QURESHI, CONY 10/01/24 07/24/2024 09/20/2024 03/19/2025 7:26 PM C DT COVID: Suspected 08/09/2024 08/09/2024 08/09/2024 9:40 AM ICHTHYOLOGIST Influenza, adult Comment:08/26/2024 IP Review: pt afebrile but on antipyretics. Needs 24 hours off antipyretics and symptoms significantly improved/resolved in order for isolation to be discontinued. Mary Tiwari RN 08/15/2024 08/15/2024 08/29/2024 3:06 AM ICHTHYOLOGIST Coronavirus, droplet 08/15/2024 08/15/202408/29/ 025 3:06 AM ICHTHYOLOGIST C. difficile suspected 09/19/2024 09/19/202409/20 3:05 AM [...] documented as of this encounter Care Teams Help Desk Manager Relationship Specialty Start Date End Date Kenton Ricks MD PCP - General 08/14/16 Kenton Ricks MD PCP - General 09/17/08 08/13/16 Pebbles Nelson MD Referring Physician Cardiology 02/07/19 Aylin Russ MD [address] [facility] [address] [place] [address] Referring Physician Pulmonary Disease 02/07/19 Maricruz Ramirez NP [address] [facility] [address] [place] [address] Nurse Practitioner Cardiovascular Disease 09/25/21 Joanne Lopez, CONY Registered Nurse Pulmonary Disease 08/24/22 Leatha Cristina RMA Surgical Prehabilitation and Readiness (SPAR) Coordinator 09/01/22 01/02/23 Ben Chahal MD PhD Medical Oncologist/Compounding Assistant Medical Oncology 10/05/22 Chace Oliva MD [address] [place] [address] Consulting Physician Infectious Diseases 12/22/2204/01 Giovanna Alexis MD [address] [place] [address] Radiation Oncologist Radiation Oncology 03/09/23 Taisha Suarez, can patcher Prehabilitation and Readiness (SPAR) Coordinator General Surgery 03/20/23 04/10/23 Sandra Ma MD Consulting Physician Medical Oncology 04/25/23 05/09/23 Abby Higgins MD PhD Medical Oncologist/Compounding Assistant Medical Oncology 05/10/23 Adrian Martinez MD [address] [facility] [address] [place] [address] Surgical Oncologist Surgical Oncology 05/28/23 Vera Pérez PA [address] [place] [phone] [place] [address] Physician Lead Business Analyst Colon and Rectal Surgery 09/13/23 Jim Frausto MD [address] [facility] [phone] [place] [address] Surgeon Colon and Rectal Surgery 11/21/23 Анна Robert, RN [address] [facility] [address] [place] [address] SHOP Outpatient Online Merchandiser 09/29/24 10/01/24 documented as of this encounter
--- OUTSIDE RECORDS SUMMARY | 2025-06-04 10:37 | XMS_ITS | Encounter Summary ---
Author Organization [employer] Address [address] [place] [address] Care Team Providers Care Tmd Teacher Assistant Name Role Phone Kenton Ricks MD Primary Care Provider [phone] Encounter Details Date Type Department Care Team (Latest Contact Info) Description 05/17/2001 Outpatient [facility] [address] [facility] [place] [facility] [place] [phone] Kenyon Montenegro MD [address] [address] HEADACHE (Primary Dx) Social History Tobacco Use Types Packs/Day Years Used Date Smoking Tobacco: Never Assessed Sex and Gender Information Value Date Recorded Sex Assigned at Not on file 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 [phone] PCP - General Family Practice 11/15/18 documented as of this encounter
--- OUTSIDE RECORDS SUMMARY | 2025-06-04 10:37 | XMS_ITS | Encounter Summary ---
Author Organization [employer] Address 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 [phone] PCP - General Family Practice 11/15/18 documented as of this encounter
--- OUTSIDE RECORDS SUMMARY | 2025-06-04 10:37 | XMS_ITS | Clinical Summary ---
Author Organization [facility] Address [address] [place] [address] Care Team Providers Care Medical Logistics Specialist Name Role Phone Kenton Ricks MD Primary Care Provider + [phone] Pebbles Nelson MD Unavailable [phone] Aylin Russ MD Unavailable Maricruz Ramirez NP Unavailable [phone] Joanne Lopez RN Unavailable Padmini Ben Walker MD PhD Unavailable [phone] Giovanna Alexis MD Unavailable Abby Higgins MD PhD Unavailable + Adrian Martinez MD Unavailable [phone] Vera Pérez Unavailable [phone] Jim Frausto MD Unavailable [phone] Allergies Active Allergy Reactions Criticality Noted Date Comments Ceftriaxone Nausea & Vomiting,Other (See comments) Low 11/21/2023 AFIB Doxycycline Other (See comments) 03/01/2025 Liver fumction Iron Dextran Chest tightness Medium 05/14/2023 Iron Dextran Complex Other (See comments),Rash Medium 03/10/2025 CHEST TIGHTNESS Menthol Other (See comments),Hives High 09/17/2017 Moura Skin Meropenem Shortness of breath High 04/11/2022 Tremors, nausea and shortness of breath Metoclopramide Agitation High 04/07/2025 Prochlorperazine Other (See comments) High 08/24/2022 Tardive [...] day as needed (pain) 08/31/19 23 Active fluticasone furoate-vilanteroL (BREO ELLIPTA) 100-25 [...] mg total) by mouth nightly Active multivit vfkphcuy-vnwq-RD-c alcium (THERA-M) 9 mg iron-400 mcg tablet Take 1 tablet by mouth nightly Active Gemtesa 75 mg tablet Take 75 mg by mouth nightly 02/12/20 24 Active FreeStyle Stephen 3 Plus Sensor deviceIndications: Type 2 diabetes mellitus with microalbuminuria, with long-term current use of insulin (HCC) Use to continually monitor glucose, change sensor every 15 days 6 each 3 06/01/20 24 Active blood glucose diagnostic (True Metrix Glucose Test Strip) stripIndications:T ype 2 diabetes mellitus with other specified complication, without long-term current use of insulin USE HUMANA TRUE METRIX TO CHECK GLUCOSE 3-4 TIMES A DAY 300 strip 3 07/03/[address] (PROTONIX) 40 mg EC tablet Take 1 tablet (40 mg total) by mouth 2 (two) times a day 60 tablet 08/27/19 25 Active lidocaine (LIDODERM) 5 %Indications:Chron ic diarrhea Place 1 patch on the skin daily for 12 hours Remove & discard patch within 12 hours or as directed by . 90 patch 3 10/23/19 25 026 Active pancrelipase (CREON) 24,000 units of lipase capsule Take 5 capsules by mouth with meals. Take 2 capsules by mouth at bedtime and 1-2 capsules by mouth with snacks daily. 1800 capsule 3 11/19/19 25 Active insulin aspart (NovoLOG) 100 unit/mL [...] adjustment of insulin orders. 11/25/19 25 Active lidocaine (GLYDO) 2 % jelly in [...] (before BM) 60 g 11/25/19 25 Active Additional Information Patient not taking.Reported on 05/12/2025 ferrous sulfate 325 mg (65 mg of [...] skin daily Active traZODone (DESYREL) 50 mg tabletIndications: insomnia associated with depression Take 1 tablet (50 mg total) by mouth nightly as needed for sleep 14 tablet 03/05/20 25 Active spironolactone (ALDACTONE) 25 mg tablet Take 1 tablet (25 mg total) by mouth daily 90 tablet 3 03/18/20 25 Active ubrogepant (UBRELVY) 100 mg tablet Take 1 tablet (100 mg total) by mouth 09/04/19 25 Active methocarbamoL (ROBAXIN) 500 mg tablet Take 1 tablet (500 mg total) by mouth 3 (three) times a day 90 tablet 04/03/20 25 Active gabapentin (NEURONTIN) 800 mg tabletIndications: Neuropathic Pain Take 1 tablet (800 mg total) by mouth 3 (three) times a day 90 tablet 04/03/20 25 026 Active butalbital-acetami nophen-caffeine (FIORICET) 50-300-40 mg per capsule Take 1 capsule by mouth every 4 (four) hours as needed for headaches 20 capsule 04/03/20 25 Active pen needle, diabetic (BD Ultra-Fine Mini Pen Needle) 31 gauge x 16 needleIndications: Type 2 diabetes mellitus with other specified complication, without long-term current use of insulin TAKE WITH INSULIN INJECTION 4 TIMES A DAY 400 each 04/11/20 25 Active rosuvastatin (CRESTOR) 5 mg tabletIndications: Mixed hyperlipidemia TAKE 1 TABLET BY MOUTH EVERY DAY IN THE MORNING 90 tablet 1 04/27/20 25 Active colestipoL (COLESTID) 1 gram tablet TAKE 1 GRAM BY MOUTH TWICE A DAY 04/16/[address] (CYMBALTA) 30 mg capsule Take by mouth daily 01/26/20 25 Active tamsulosin (FLOMAX) 0.4 mg extended release capsule Take 1 capsule (0.4 mg total) by mouth 03/22/20 23 Active Active Problems Problem Noted Date Diagnosed [...] was evaluated by hepatology with liver biopsy / showing minimal to mild inflammation -Trend LFTs [...] 08/23/2024 Assessment & Plan (08/26/2024 3:51 PM SIZING MACHINE OPERATOR): The patient reported left eye [...] 08/11/2024 Assessment & Plan (08/26/2024 4:05 PM SIZING MACHINE OPERATOR): Patient developed hematemesis on 08/11 [...] 08/04/2024 Assessment & Plan (08/22/2024 10:54 PM SIZING MACHINE OPERATOR): Started allopurinol this admission Moderate [...] PPI Assessment & Plan (08/11/2024 8:44 PM SIZING MACHINE OPERATOR): - Recent admission 07/10-07/20 for [...] 07/16/2024 Assessment & Plan (07/20/2024 11:28 AM SIZING MACHINE OPERATOR): - Resulted with Nystatin Anal [...] topical CCB - cannot obtain her at [facility] Assessment & Plan (11/22/2024 12:07 PM CDT): - psyllium qAM, added miralax daily - Added lidocaine jelly qid prn - Sitz baths BID - Will try to start topical CCB - cannot obtain her at [facility] Assessment & Plan (11/21/2024 11:50 AM CDT): - psyllium qAM, added miralax daily - Added lidocaine jelly qid prn - Sitz baths BID - Will try to start topical CCB - cannot obtain her at [facility] Assessment & Plan (11/20/2024 11:11 AM [...] Plan (11/24/2024 9:17 AM CDT): -CPAP at [facility] Assessment & Plan (11/23/2024 9:48 AM CDT): -CPAP at [facility] Assessment & Plan (11/22/2024 12:07 PM CDT): -CPAP at [facility] Assessment & Plan (11/21/2024 11:50 AM CDT): -CPAP at [facility] Assessment & Plan (11/20/2024 11:11 AM CDT): -CPAP at [facility] Assessment & Plan (11/20/2024 1:34 AM CDT): -CPAP at [facility] Assessment & Plan (10/15/2023 2:34 [...] albuterol Assessment & Plan (08/26/2024 4:00 PM SIZING MACHINE OPERATOR): Cont. breo ellipta, prn albuterol [...] 07/25/2023 Assessment & Plan (07/26/2023 12:35 PM SIZING MACHINE OPERATOR): - Likely multifactorial 2/2 malignancy, recent whipple, chemotherapy, and pain - Very poor PO intake - RD c/s - Started Mirtazapine - Dietary supplementation - Increased Creon as above Malaise 07/24/2023 Assessment & Plan (07/25/2023 2:16 PM SIZING MACHINE OPERATOR): - RVP negative - Improving Kidney lesion 07/21/2023 Assessment & Plan (07/25/2023 2:21 PM SIZING MACHINE OPERATOR): - Left renal cyst noted [...] prn Assessment & Plan (07/26/2023 12:33 PM SIZING MACHINE OPERATOR): - Acute on chronic epigastric [...] 07/09/2023 Assessment & Plan (07/24/2023 5:22 PM SIZING MACHINE OPERATOR): - Replace per protocol Class 1 obesity due to exces s calories with serious comorbidity and body mass index (BMI) of 34.0 to 34.9 in adult 06/01/2023 H/O Whipple procedure 05/30/2023 Gastrointestinal hemorrhage 05/30/2023 Assessment & Plan (07/14/2024 12:30 PM SIZING MACHINE OPERATOR): History of Postoperative GI bleed. [...] 02/05/2023 Assessment & Plan (07/21/2023 2:06 AM SIZING MACHINE OPERATOR): Also has Hx of prostate [...] - PT/OT/RD consults GERD (gastroesophageal reflux disease) 08/07/202 3 Assessment & Plan (04/03/2025 8:18 AM CDT): [...] 11/21/2022 Assessment & Plan (08/26/2024 4:05 PM SIZING MACHINE OPERATOR): The patient presented with elevated [...] he is scheduled MRI in December at [facility] (requires cardiac monitoring due to ICD) - he is hoping to have this done sooner. Ileus 11/21/2022 Assessment & Plan (07/20/2024 11:29 AM SIZING MACHINE OPERATOR): - KUB done 07/13 showing [...] 10/08/2022 Assessment & Plan (07/21/2023 2:04 AM SIZING MACHINE OPERATOR): Diagnosed in August 2022, now s/p course of Eliquis. Presented with trace b/l lower ext edema, b/l erythema and mild tenderness which per patient is increased from baseline. Had similar presentation last hospitalization and LE duplex 06/07 was negative - CTM and consider rescanning if persistent Assessment & Plan (06/09/2023 4:47 PM SIZING MACHINE OPERATOR): Hx of DVT in August [...] of mets or infection and transferred from [facility] to [facility]. ID here with low concern for IMAGING ACCOUNT MANAGER infection. - CT neck/soft tissue with contrast: [...] due to ICD. Plan to transfer to [facility] for further evaluation w/ possible MRI brain and LP. Rash 09/23/2022 Assessment & Plan (06/12/2023 3:50 PM SIZING MACHINE OPERATOR): - contact dermatitis? Not concerned [...] to melisa skin necrosis. - transfer to [facility] for derm eval Anemia 09/22/2022 Assessment & Plan (07/26/2023 12:35 PM SIZING MACHINE OPERATOR): Acute on chronic. 7.4 on [...] negative. Assessment & Plan (06/12/2023 3:46 PM SIZING MACHINE OPERATOR): HGb 7, plt 94, wbc [...] 09/22/2022 Assessment & Plan (07/26/2023 12:34 PM SIZING MACHINE OPERATOR): Has Hx of ileus. On scheduled Linzess, Miralax and PRN Senna-Docusate at home. Patient states he's been having 4-5 soft stools daily - Increased Creon as above. Bowel regimen. Assessment & Plan (06/07/2023 11:26 PM SIZING MACHINE OPERATOR): Continue home regimen of Linzess, [...] (08/30/2022): Added automatically from request for surgery [id number] Assessment & Plan (10/15/2023 2:34 PM CDT): Hx of L axillary nodes on CT increased from prior study Should f/u with Dr. Chahal Assessment & Plan (10/13/2023 2:03 PM CDT): Hx of L axillary nodes on CT increased from prior study Should f/u with Dr. Chahal Assessment & Plan (07/26/2023 12:31 PM SIZING MACHINE OPERATOR): - s/p whipple. Follows with [...] plan to hold of next cycle of Iberia/Abraxane till infectious etiology is ruled out Assessment [...] plan to hold of next cycle of Iberia/Abraxane till infectious etiology is ruled out Assessment [...] surveillance Assessment & Plan (08/26/2024 4:00 PM SIZING MACHINE OPERATOR): s/p whipple with PV/SMV resection (04/2023) and neoadjuvant chemo (completed 08/2023). Most recent scan showed no evidence of disease recurrence Currently on surveillance with CA 19-[address] CAP every 3 months Assessment & Plan (07/10/2024 10:48 PM SIZING MACHINE OPERATOR): Pancreatic cancer s/p Whipple with PV/SMV resection on 04/11/2023 s/p neoadjuvant tx, On surveillance OP follow up. Assessment & Plan (06/08/2023 5:32 PM SIZING MACHINE OPERATOR): Pancreatic adenocarcinoma sp Whipple, now [...] 1 Assessment & Plan (08/25/2022 12:23 PM SIZING MACHINE OPERATOR): Recurrent UTI followed by ID [...] 06/09/2019 Assessment & Plan (06/09/2019 12:54 PM SIZING MACHINE OPERATOR): He is agreeable to rescheduling [...] aldactone Assessment & Plan (07/14/2024 12:35 PM SIZING MACHINE OPERATOR): HFpEF Euvolemic, normotensive On hold diuretics for now given pt NPO on IVF for ileus, will restart once able to take in po Assessment & Plan (06/11/2023 10:01 PM SIZING MACHINE OPERATOR): ECHO 11/21 EF 69%, grade [...] diet Assessment & Plan (08/24/2022 1:10 PM SIZING MACHINE OPERATOR): Stable, continued torsemide, spironolactone Assessment & Plan (09/24/2021 12:42 AM CDT): Patient is feeling better. states legs have decreased by half. Continue with IV lasix. Continue to monitor Cr and lytes as we diurese. Holding torsemide. Continue aldactone with hold parameters. Assessment & Plan (08/18/2018 1:16 AM SIZING MACHINE OPERATOR): Patient presented with increased shortness [...] NPPV Assessment & Plan (08/26/2024 4:02 PM SIZING MACHINE OPERATOR): continue nightly CPAP Assessment & Plan (07/21/2023 6:17 AM SIZING MACHINE OPERATOR): Desaturations noted in the ED during sleep per on monitor while on RA (not recorded) - continue nightly BiPAP Assessment & Plan (06/07/2023 11:32 PM SIZING MACHINE OPERATOR): Continue nightly BiPAP Assessment & [...] 8:24 AM CDT): -resume home CPAP at [facility] Assessment & Plan (09/22/2022 3:17 AM CDT): -resume home CPAP at [facility] Assessment & Plan (08/24/2022 1:08 PM SIZING MACHINE OPERATOR): - home CPAP machine use Assessment & Plan (09/24/2021 12:39 AM CDT): Patient has home NPPV which has been reordered. 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 Restart CPAP Shortness of breath at rest 08/18/2018 Assessment & Plan (08/18/2018 1:27 AM SIZING MACHINE OPERATOR): Patient with complex past medical [...] 07/26/2018 Assessment & Plan (08/26/2024 4:05 PM SIZING MACHINE OPERATOR): H/o vtach s/p ICD 2013 EP consulted for MRCP earlier in admission. Patient's device is conditioned for MRI. Risk stratification: standard Assessment & Plan (07/10/2024 10:38 PM SIZING MACHINE OPERATOR): History of ventricular tachycardia ICD in place Assessment & Plan (07/21/2023 2:11 PM SIZING MACHINE OPERATOR): Follows with Dr. Nelson in [...] Aug Assessment & Plan (06/11/2023 9:59 PM SIZING MACHINE OPERATOR): Follows with Dr. Nelson in EP for history of VT s/p ICD. Denies any recent shocks, as per not there was unscheduled alarm this month due to RV lead impedance. Has outpatient appointment in August Outpatient follow up with EP Assessment & Plan (03/18/2023 1:23 AM CDT): Monitor. MRI conditional. If needs MRI, will need to go to [facility]. Assessment & Plan (02/05/2023 6:58 PM CDT): [...] ordered Assessment & Plan (08/18/2018 1:17 AM SIZING MACHINE OPERATOR): Last device interrogation was in [...] s/p shoulder surgery. Follows with Dr. Russ ([facility]) as OP. On Symbicort at home. 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 Russ - c/w Breo-Ellipta Assessment & Plan (08/18/2018 1:17 AM SIZING MACHINE OPERATOR): Continue with gabapentin Chronic heart [...] PO Assessment & Plan (08/26/2024 4:06 PM SIZING MACHINE OPERATOR): Volume down on admission due to diarrhea, now appear slightly volume up, likely I/s/o transfusions and held diuretics Continue to hold home torsemide and spironolactone for now, consider gently resuming prior to discharge Assessment & Plan (07/26/2023 12:34 PM SIZING MACHINE OPERATOR): BLE edema with erythema noted [...] elevated at home, he can contact his PCP/claim professional for further insulin adjustments. Assessment & Plan [...] regimen Assessment & Plan (08/26/2024 4:05 PM SIZING MACHINE OPERATOR): Last A1c 8.4. Home regimen: tresiba 45 units, novolog 12 units w/ breakfast and dinner, 8 units with lunch and sliding scale 1:50 > 150 Continue lantus 5 units qam + SSI Assessment & Plan (07/17/2024 2:29 PM SIZING MACHINE OPERATOR): - On tresiba 24U Qam [...] hdssi Assessment & Plan (07/26/2023 12:33 PM SIZING MACHINE OPERATOR): Insulin dependant. Home regimen: Tresiba 42 units qam, Meal-time insulin 15u tid, SSI. Has had poor oral intake over last 2-3 weeks. He mentions his Stephen 2 sensor has been recording low sugars in 40s-50s overnight for 1 week - SSI inpatient - QID accuchecks Assessment & Plan (06/08/2023 5:39 PM SIZING MACHINE OPERATOR): Hgb1c 8.4% in 04/23, follows [...] -SSI Assessment & Plan (08/24/2022 1:07 PM SIZING MACHINE OPERATOR): -Home regimen metformin + Tresiba 35 units qAM and novolog 11 units with meals plus SSI -Continue basal bolus regimen, dose reduced while inpatient -Accuchecks Assessment & Plan (09/24/2021 12:38 AM CDT): Patient on PO hypoglycemics. Monitor on SSI. Assessment & Plan (06/09/2019 12:53 PM SIZING MACHINE OPERATOR): Diet controlled. A1C at goal. [...] 09/06/2015 Assessment & Plan (06/09/2019 12:49 PM SIZING MACHINE OPERATOR): Nodule has not grown on interim imaging. Needs low dose dexamethasone suppression test annually x 5 years since initial evaluation given propensity of some adrenal nodules to become cortisol secreting overtime. Thyroid nodule 09/06/2015 Assessment & Plan (06/09/2019 12:48 PM SIZING MACHINE OPERATOR): S/p FNA with benign cytology. Will repeat US in the spring to monitor biopsied thyroid nodule for growth. Multinodular goiter 05/10/2015 Hernia of abdominal wall 02/18/2015 Assessment & Plan (06/09/2019 12:54 PM SIZING MACHINE OPERATOR): He will follow up with Dr. 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 Higgins in [...] 02/23/2012 Assessment & Plan (08/26/2024 4:06 PM SIZING MACHINE OPERATOR): continue home rosuvastatin consider resuming ASA Assessment & Plan (07/10/2024 10:44 PM SIZING MACHINE OPERATOR): Cath in 10/2023 nonobstructive coronary [...] asthma Assessment & Plan (07/21/2023 2:06 AM SIZING MACHINE OPERATOR): Follows with Dr. Nelson - Continue home Breo and PRN albuterol inhaler Assessment & Plan (06/07/2023 11:31 PM SIZING MACHINE OPERATOR): Follows with Dr. Nelson in pulmonary -Continue home Breo and PRN albuterol inhaler Assessment & Plan (09/25/2022 1:41 AM CDT): -Continue home inhalers. Assessment & Plan (09/22/2022 11:00 AM CDT): Continue home inhalers. Assessment & Plan (08/21/2022 4:13 AM SIZING MACHINE OPERATOR): -Symbicort replaced with formulary Breo Ellipta while inpatient -Continue prn albuterol Assessment & Plan (09/24/2021 12:42 AM CDT): Continue breathing treatment. Resolved Problems Problem Noted Date Diagnosed Date Resolved Date Abdominal pain, generalized 01/12/2025 01/13/2025 Ventilator associated pneumonia 08/22/2024 08/22/2024 Acute hypoxemic respiratory failure 08/22/2024 08/23/2024 Assessment & Plan (08/22/2024 8:41 PM SIZING MACHINE OPERATOR): Fevers + O2 requirement Feb 13, subsequently found to be positive for Influenza A and Coronavirus ([id number]). 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 S/p tamiflu, Linezolid (08/15-08/18), Cefepime (08/15- 08/17), Ciprofloxacin (08/08). Currently on RA. - supportive care Dysuria 07/25/2024 08/24/2024 Assessment & Plan (08/22/2024 10:12 PM SIZING MACHINE OPERATOR): Now resolved. UA on admission [...] 07/25/2024 Assessment & Plan (07/29/2024 3:21 PM SIZING MACHINE OPERATOR): Pt reports new burning pain [...] 07/24/2024 Assessment & Plan (08/02/2024 11:26 AM SIZING MACHINE OPERATOR): Resolved - Baseline Cr 0.5. Cr on admission was 1.01 - Likely pre-renal due to diarrhea - improved with IVF Dehydration 07/24/2024 08/26/2024 Assessment & Plan (07/26/2024 12:35 PM SIZING MACHINE OPERATOR): - due to diarrhea - s/p 1L IVF bolus in [facility] and maintenance IVF Diarrhea 07/19/2024 08/24/2024 Assessment & Plan (08/09/2024 2:16 PM SIZING MACHINE OPERATOR): - P/w 1-day history of [...] resolved Assessment & Plan (07/20/2024 11:33 AM SIZING MACHINE OPERATOR): - Developed after resolution of ileus. - C diff negative - Increased Creon back to home dose - Imodium prn - Hold Linzess until diarrhea resolved Abdominal pain 11/09/2023 08/25/2024 Assessment & Plan (08/11/2024 8:39 PM SIZING MACHINE OPERATOR): Acute on chronic abdominal pain. [...] hematemesis Assessment & Plan (07/14/2024 12:31 PM SIZING MACHINE OPERATOR): Hx of pancreatic cancer s/p [...] NSAIDs Assessment & Plan (07/10/2024 9:32 PM SIZING MACHINE OPERATOR): Hx of pancreatic cancer s/p [...] 08/24/2024 Assessment & Plan (08/11/2024 8:40 PM SIZING MACHINE OPERATOR): Complained chest pain at left [...] 08/01/2024 Assessment & Plan (08/01/2024 2:54 PM SIZING MACHINE OPERATOR): -has ICD in place Assessment [...] 03/31/2025 Assessment & Plan (06/12/2023 3:47 PM SIZING MACHINE OPERATOR): Presented with 3 days of [...] 08/22/2024 Assessment & Plan (08/05/2024 11:42 PM SIZING MACHINE OPERATOR): RESOLVED. DDx include viral infection [...] prn. Assessment & Plan (07/20/2024 11:30 AM SIZING MACHINE OPERATOR): - Developed fever 38.4 C [...] which raise concern for an infectious syndrome -COTTON PICKING MACHINE OPERATOR swab RPP negative -check blood [...] added for spasm Severe malnutrition 08/24/2022 10/29/19 23 Acute pain of left shoulder 08/23/2022 10/28/2022 Assessment & Plan (08/24/2022 1:12 PM SIZING MACHINE OPERATOR): Referred pancreatitis pain. 12 lead EKG shows no acute changes, baseline NSR with RBB and intrafascicular block. Trop negative. Elevated transaminase level 08/21/2022 10/28/2022 Assessment & Plan (08/24/2022 1:10 PM SIZING MACHINE OPERATOR): First noted to have elevated [...] 023 Assessment & Plan (08/22/2022 2:20 PM SIZING MACHINE OPERATOR): Diagnosed as outpatient and started on fidaxomicin by ID 08/16/2022. Still with persistent diarrhea. -Continue fidaxomicin -ID following Pancreatic lesion 08/20/2022 10/28/2022 Overview (08/21/2022): Added automatically from request for surgery [id number] Assessment & Plan (08/24/2022 1:08 PM SIZING MACHINE OPERATOR): S/P EUS wit FNA confirmed adenocarcinoma. GI arranging oncology and surgical follow up as outpatient Urinary tract infection asso ciated with cystostomy catheter, initial encounter 04/09/2022 0 10/28/2022 Brugada syndrome 07/09/2020 09/10/2020 Cough in adult 06/09/2019 10/28/2022 Assessment & Plan (06/09/2019 12:52 PM SIZING MACHINE OPERATOR): This appears to be chronic and persist despite switching from ACEI to ARB. He will contact his molder hand to follow up regarding this. Urinary incontinence 08/18/2018 023 Assessment & Plan (08/18/2018 1:22 AM SIZING MACHINE OPERATOR): Continue with Myrbetriq and vesicare [...] 10/28/2022 Assessment & Plan (06/09/2019 12:47 PM SIZING MACHINE OPERATOR): Congratulated on recent weight loss. Continue attention to diet, low carb, exercise as able. Palpitations 10/30/2012 10/28/2022 Disorder of lung 08/05/2012 10/28/2022 Narcolepsy 01/24/2012 10/28/2022 Abnormal blood chemistry level 01/19/2012 10/28/2022 Syncope 02/28/2011 10/28/2022 Encounter for preventive health examination 11/23/2010 10/28/2022 Encounters Date Type Department Care Team Description 06/04/2025 Results Follow-Up [facility] On[facility] [address] [place] [id number] Brett Lu, CHRISTINE METANEPHRINES, FRACT, FREE, LC/MS/MS, PLASMA 06/02/[address] [facility] Endocrinology Metabolism and Lipid [address] [facility] [address] [place] [address] Cheryl Mason RN Updated Medtronic pump order 05/21/2025 Orders Only [facility] Oncology [address] [place] [address] [address] [place] [address] Abby Higgins MD PhD Neurofibromatosis, type 1 (HCC) (Primary Dx); TP53 gene mutation positive 05/19/2025 Telephone [facility] Radiology [address] [place] [address] Abby Higgins MD PhD 05/12/2025 11:30 AM SIZING MACHINE OPERATOR Office Visit [facility] Oncology [address] [place] [address] [address] [place] [id number] Abby Higgins MD PhD Neurofibromatosis, type 1 (HCC) 05/12/2025 10:30 AM SIZING MACHINE OPERATOR Clinical Support [facility] Oncology Lab [address] [place] [address] [address] [place] [address] Neurofibromatosis, type 1 (HCC) 05/12/2025 10:15 AM SIZING MACHINE OPERATOR Clinical Support [facility] - Lab Collection [facility] [address] [place] [address] Ben Chahal MD PhD Neurofibromatosis, type 1 (HCC) 05/08/2025 Documentation [facility] Endocrinology Metabolism and Lipid [facility] Medical Office [address], [address] [place] [address] Cheryl Mason RN [place] Medtronic insulin pump order 04/24/2025 7:26 AM CDT - 04/24/2025 11:59 PM CDT Hospital Encounter [facility] [facility] ([facility]) [address] [place] [address] Discharge Disposition: Discharge to home or self care 04/24/2025 7:26 AM CDT - 04/24/2025 11:59 PM CDT Hospital Encounter [facility] ([facility]) [address] [place] [address] Pancreatic adenocarcinoma (HCC) Discharge Disposition: Discharge to home or self care 04/24/2025 Results Follow-Up [facility] [address] [place] [address] Floor 8 [place] [address] Ben Chahal MD PhD NM bone scan whole body 04/22/2025 4:30 PM CDT Telemedicine [facility] Cancer Genetics Department [address] [place] [phone] Flores Barnett CGC Pancreatic adenocarcinoma (HCC) (Primary Dx); Neurofibromatosis, type 1 (HCC); TP53 gene mutation positive; Encounter for nonprocreative genetic counseling 04/22/2025 Telephone [facility] Cancer Genetics Department [address] [place] [phone] Flores Barnett CGC Genetic Testing Results 04/20/2025 12:15 PM CDT Office Visit [facility] 5 [place] [phone] Ben Chahal MD PhD Pancreatic adenocarcinoma (HCC) 04/20/2025 11:00 AM CDT Clinical Support [facility] Lab [address] [facility] 5 [place] [address] Pancreatic adenocarcinoma (HCC) 04/20/2025 10:45 AM CDT Clinical Support [facility] - Lab Collection [address] [facility] Floor 5 [place] [address] Ben Chahal MD PhD Pancreatic adenocarcinoma (HCC) 04/20/2025 9:09 AM CDT - 04/20/2025 11:59 PM CDT Hospital Encounter [facility]) [address] [place] [address] Pancreatic adenocarcinoma (HCC) Discharge Disposition: Discharge to home or self care 04/20/2025 Orders Only [facility] [address] [facility] [address] [place] [phone] Tory Nye Pancreatic adenocarcinoma (HCC) (Primary Dx) 04/17/2025 Orders Only [facility] Scanning, Provider 04/13/2025 2:20 PM CDT Office Visit [facility] Endocrinology Metabolism and Lipid [address] [facility] [address], [address] [place] [address] Margaret Balderas MD Type 2 diabetes mellitus with other specified complication, without long-term current use of insulin (Primary Dx); Type 2 diabetes mellitus with hyperglycemia, with long-term current use of insulin (HCC); Severe hyperglycemia due to diabetes mellitus (HCC) 04/11/2025 Orders Only [facility] Endocrinology Metabolism and Lipid [address] [facility] 13th [place] [address] [place] [phone] Brii Mason MD Type 2 diabetes mellitus with other specified complication, without long-term current use of insulin 04/07/2025 7:30 PM CDT Office Visit [facility] Medical [facility] Care at [address] [address] Rick Alvarez NP Pain in left testicle (Primary Dx); Swelling of left testicle 03/31/2025 4:37 PM CDT - 04/03/2025 8:40 AM CDT Hospital Encounter [facility] [address] [address] [place] [address] Matthias Laurent MD Baum, MD Phoenix Butcher Sonya Yannie, MD Martin, Nathan R., MD Intractable chronic migraine without aura and without status migrainosus (Primary Dx); Neurofibromatosis, type 1 (HCC); Acute nonintractable headache, unspecified headache type; Leg weakness, bilateral Discharge Disposition: Discharge to home or self care 03/31/2025 Documentation [facility] [address] [place] [address] Mary Grady CMA 03/26/2025 10:30 AM CDT Telemedicine [facility] Cancer Genetics Department [address] [place] [address] Flores Barnett CGC Pancreatic adenocarcinoma (HCC) (Primary Dx); Neurofibromatosis, type 1 (HCC); Family history of breast cancer; Family history of melanoma; Family history of thyroid cancer; Family history of adrenal cancer; Encounter for nonprocreative genetic counseling 03/26/2025 Telephone [facility] Cardiology [address] [facility] 8th [place] [address] [place] [address] Nicki Conroy 03/23/2025 1:30 PM CDT Procedure visit [facility] Dermatology [address] [facility] Floor 6 [place] [address] Kemal Galvez MD Basal cell carcinoma (BCC) of right lower leg (Primary Dx) 03/18/2025 8:30 AM CDT Office Visit [facility] Cardiology [address] [facility] Medical Office Building 3 [address] [place] [address] Gil Baldwin MD Chronic diastolic congestive heart failure (HCC) (Primary Dx); Coronary artery disease involving [place] coronary artery of [place] heart, unspecified whether angina present; Paroxysmal atrial fibrillation (HCC) 03/06/2025 Documentation [facility] Endocrinology Metabolism and Lipid [address] [facility] 13th [place] [address] [place] [address] Mirtha Escalona MD 02/28/2025 8:43 PM CDT - 03/05/2025 3:43 PM CDT Hospital Encounter [facility] [address] [address] [facility] [place] [address] Jorge L Garcia MD [place], MD Joan [...] 02/22/2019 Surgical History Surgery Date Site/Laterality Comments [place] TONSILLECTOMY PRIMARY/SECONDARY <AGE 12 07/02/1957 - 07/01/1958 [...] type 1 (HCC) CHF (congestive heart failure) ([facility]) Class 2 severe obesity with serious comorbidity [...] Date Recorded PHQ-2 Total Score 1 09/21/2024 [facility] [place] of Occupat ional Health - Occupational Stress [...] place to sleep or slept in a jail (including now)? No 11/12/2023 PHQ-9 Answer Date [...] time in the past 12 m [facility], were you homeless or living in a jail (including now)? No 01/13/2025 Social Connection and [...] time in the past 12 m [facility], were you homeless or living in a jail (including now)? No 04/01/2025 [facility] Utilities Answer Date Recorded In the [...] on file Legal Sex Male 12:58 AM SIZING MACHINE OPERATOR Gender Identity Male 11/11/2018 10:31 AM CDT Sexual Orientation Straight 06/09/2019 5: 34 PM SIZING MACHINE OPERATOR Last Filed Vital Signs Vital Sign Reading Time Taken Comments Blood Pressure 137/78 05/12/2025 11:38 AM SIZING MACHINE OPERATOR Pulse 60 05/12/2025 11:38 AM SIZING MACHINE OPERATOR Temperature 36.4 C (97.6 F) 04/20/2025 11:15 AM CDT Respiratory Rate 18 05/12/2025 11:38 AM SIZING MACHINE OPERATOR Oxygen Saturation 99% 05/12/2025 11:38 AM SIZING MACHINE OPERATOR Inhaled Oxygen Concentration - - Weight 98.9 kg (218 lb) 05/12/2025 11:38 AM SIZING MACHINE OPERATOR Height 175.3 cm (5' 9) 04/13/2025 2:20 PM CDT Body Mass Index 32.19 04/13/2025 2:20 PM CDT Plan of Treatment [...] history exists Medical Devices Implanted Type Area Automotive Service Assistant Device Identifier Shelf Expiration Date Model / Serial / Lot Biotronik Inc Implant Cardiac Defibrillator Dual Chamber Dr Chaparro Mri Compatible Ilisharmin Huy [id number] - [id number] - [id number] Implanted:Qty: 1 on 10/10/2023 by Pebbles Nelson MD at [facility] ICD Left: Chest Wall Biotronik Inc [id number] 08/01/2025 [id number] / [id number] / Lead (Ra)-Setrox S S 53 Implanted:2013 by Pebbles Nelson MD (Quantity not on file) Lead Heart Biotronik 350 974 SETROX S S 53 / [id number] / Lead (Rv)-Linox Smart Sd 65/18 Implanted:2013 by Pebbles Nelson MD (Quantity not on file) Lead Heart Biotronik 359 067 LINOX SMART SD 65/18 / [id number] / Medtronic Inc Tyrx Absorbable Antibacterial Envelope-Large 3.3x2.9in [id number] - [id number] - [id number] Implanted:Qty: 1 on 10/10/2023 by Pebbles Nelson MD at [facility] Other - see comments Left: Chest Wall Medtronic Inc 07/03/2024 [id number] / [id number] / [id number] Description:Antibacterial en velope Conmed Lei Viabil 8mm X 6cm Longwire [id number] - [id number] - [id number] Implanted:Qty: 1 on 12/15/2022 by Fede Das MD at [facility] Stent N/A: Bile Duct Conmed Lei 12/11/2024 [id number] / [id number] / Rainelle Scientific Lei 8.5 Fr Nasal Biliary Catheter [id number] - [id number] Implanted:Qty: 1 on 04/25/2023 by Zuri Mera MD at [facility] Tube N/A: Jejunum [employer] Lei 04/02/2025 [id number] / / [id number] [employer] Lei Wallflex 8mm 8fr 60mm Rapid Exchange Delivery System Stent [id number] - [id number] Implanted:Qty: 1 on 09/08/2022 by Fede Das MD at [facility] N/A: Bile Duct [employer] Lei 03/21/2024 [id number] / / [id number] Angio Dynamics Xcela Power Port 8fr [id number] - [id number] Implanted:Qty: 1 on 09/13/2022 at [facility] Angio Dynamics 04/19/2027 [id number] / / [id number] [employer] Lei Supple Carmina-Guard [place] Processing 8x6cm Patch Cardiovascular [id number] - [id number] - [id number] Implanted:Qty: 1 on 04/11/2023 by Adrian Martinez MD at [facility] N/A: Superior Mesenteric Vein [employer] Lei [id number] 06/09/2027 [id number] / [id number] / [employer] Lei 8.5 Fr Nasal Biliary Catheter [id number] - [id number] Implanted:Qty: 1 on 05/01/2023 by Fede Das MD at [facility] Left: Nose [employer] Lei 12/18/2025 [id number] / / [id number] Explanted Type Area Automotive Service Assistant Device Identifier Shelf Expiration Date Model / Serial / Lot Icd-Ifkenyon 7 Elisa Implanted:Qty: 1 on 02/19/2014 by Pebbles Nelson MD Explanted:Qty: 1 on 10/10/2023 ICD Chest Biotronik [id number] [place] / [id number] / Medtronic Bladder Lead [id number] Lead Pelvis Medtronic [id number] / [id number] / Medtronic Interstim Bladder Stimulator 3058-03/26/2020 Implanted:03/26 (Quantity not on file) Pelvis Medtronic [id number] / [id number] / Description:MRI compatable Use pt remote (menu MRI active) [employer] Lei 10fr 5cm Biliary Stent [id number] - [id number] Implanted:Qty: 1 on 08/22/2022 by Fede Das MD at [facility] Explanted:Qty: 1 on 09/08/2022 by Fede Das MD at [facility] N/A: Bile Duct Draft Lei 01/27/2023 [id number] / [id number] Procedures Procedure Name Priority Date/Time Associated Diagnosis Comments METANEPHRINES, FRACT, FREE, LC/MS/MS, PLASMA Routine 05/21/2025 9:03 AM SIZING MACHINE OPERATOR Neurofibromatosis, type 1 (HCC) TP53 gene mutation positive VITAMIN D 25 HYDROXY Routine 05/12/2025 11:20 AM SIZING MACHINE OPERATOR Neurofibromatosis, type 1 (HCC) MARCOS-65 AUTOANTIBODY Routine 04/28/2025 9 :34 AM CDT Severe hyperglycemia due to diabetes [...] 04/20/2025 10:25 AM CDT Pancreatic adenocarcinoma (HCC) SCAN - LABS 04/16/2025 ZINC TRANSPORTER 8 (ZNT8) ANTIBODY Routine 04/14/2025 [...] mellitus (HCC) POCT GLUCOSE DEVICE Routine 04/03/2025 8 :32 AM CDT POCT GLUCOSE DEVICE Routine 04/02/2025 8 :44 PM CDT POCT GLUCOSE DEVICE Routine 04/02/2025 6 :46 PM CDT POCT GLUCOSE DEVICE Routine 04/02/2025 5 :32 PM CDT EGFR STAT 04/02/2025 2:27 PM CDT DIFFERENTIAL AUTO STAT 04/02/2025 2:2 7 PM CDT CBC WITH AUTO DIFFERENTIAL STAT [...] AM CDT POCT GLUCOSE DEVICE Routine 04/02/2025 8 :48 AM CDT POCT GLUCOSE DEVICE Routine 04/02/2025 2 :02 AM CDT POCT GLUCOSE DEVICE Routine 04/02/2025 12:46 AM CDT POCT GLUCOSE DEVICE Routine 04/01/2025 10:30 PM CDT POCT GLUCOSE DEVICE Routine 04/01/2025 7 :30 PM CDT POCT GLUCOSE DEVICE Routine 04/01/2025 6 :29 PM CDT POCT GLUCOSE DEVICE Routine 04/01/2025 4 :41 PM CDT POCT GLUCOSE DEVICE Routine 04/01/2025 11:32 AM CDT POCT GLUCOSE DEVICE Routine 04/01/2025 7 :52 AM CDT POCT GLUCOSE DEVICE Routine 03/31/2025 10:[address] LUMBAR SPINE WO CONTRAST ED 03/31/2025 7:[address] HEAD WO CONTRAST ED 03/31/2025 7 :08 PM CDT XR CHEST PA LATERAL 2 VIEWS ED 03/31/2025 5:49 PM CDT URINALYSIS AND REFLEX TO MICROSCOPIC AND CULTURE STAT 03/31/2025 5:22 PM CDT HEMOGLOBIN A1C STAT 03/31/2025 3:04 PM CDT EGFR STAT 03/31/2025 3:04 PM CDT DIFFERENTIAL AUTO STAT 03/31/2025 3:0 4 PM CDT COMPREHENSIVE METABOLIC PANEL STAT 03/31/2025 3:04 PM CDT CBC WITH AUTO DIFFERENTIAL STAT 03/31/2025 3:04 PM CDT INFLUENZA A/B, RSV, AND COVID-19 PCR STAT 03/31/2025 3:04 PM CDT POCT GLUCOSE DEVICE Routine 03/05/2025 12:14 PM CDT POCT GLUCOSE DEVICE Routine 03/05/2025 8 :54 AM CDT US LEONOR IP Routine 03/05/2025 5:37 AM CDT EGFR Routine 03/05/2025 3:59 AM CDT DIFFERENTIAL AUTO Routine 03/05/2025 3:5 9 AM CDT COMPREHENSIVE METABOLIC PANEL Routine 03/05/2025 3:59 AM CDT CBC WITH AUTO DIFFERENTIAL Routine 03/05/2025 3:59 AM CDT HEPATITIS PANEL, ACUTE Routine 03/03/2025 3:04 PM CDT LIPID PANEL STAT 11/19/2024 1:05 PM CDT COLONOSCOPY 11/11/2024 11:01 AM CDT ALBUMIN CREATININE RATIO, URINE Routine 02/29/2024 8:27 AM CDT Type 2 diabetes mellitus with microalbuminuria, with long-term current use of insulin (HCC) PSA SCREEN Routine 04/16/2020 7:01 AM CDT Low testosterone in male from Last 3 Months or Most Recently Relevant to Health Maintenance Results * METANEPHRINES, FRACT, FREE, LC/MS/MS, PLASMA (05/21/2025 9:03 AM SIZING MACHINE OPERATOR) METANEPHRINE, FREE 37 <=57 pg/mL [facility] [facility] Comment: This test was developed and its analytical performance characteristics have been determined by [place]. It has not been cleared or approved by the U.S. Food and Drug Administration. This assay has been validated pursuant to the CLIA regulations and is used for clinical purposes. Normetanephrine, free 146 <=148 pg/mL [facility] Comment: This test was developed and its analytical performance characteristics have been determined by [place]. It has not been cleared or approved by the U.S. Food and Drug Administration. This assay has been validated pursuant to the CLIA regulations and is used for clinical purposes. TOTAL, FREE (MN+NMN) 183 <=205 pg/mL [facility] [facility] Comment: For additional information, please refer to http://education.eMindful.Koibanx/faq/MetFractFree (This link is being provided for informational/educatio informational/educational purposes only.) Elevations >4-fold upper reference range: strongly suggestive of a pheochromocytoma(1). Elevations >1- 4-fold upper reference range: significant but not diagnostic, may be due to medications or stress. Suggest running 24 hr urine fractionated metanephrines and/or serum Chromagranin A for confirmation. Reference: (1)Terrell Murray et al, Plasma Chromogranin A or Urine Fractionated Metanephrines Follow-Up Testing Improves the Diagnostic Accuracy of Plasma Fractionated Metanephrines for Pheochromocytoma. The Journal of Clinical Endocrinology # Metabolism 93(1), 91-95, 2008. This test was developed and its analytical performance characteristics have been determined by [facility] [place], [place]. It has not been cleared or approved by the U.S. Food and Drug Administration. This assay has been validated pursuant to the CLIA regulations and is used for clinical purposes. Blood 05/21/2025 9:03 AM SIZING MACHINE OPERATOR 05/21/2025 9:04 AM SIZING MACHINE OPERATOR Abby Higgins MD PhD LAB BLOOD ORDERABL ES Final Result Performing Organization Address City/[facility]/ZIP Co de Phone Number MILENA [facility] [address] [place] [address] * Vitamin D 25 hydroxy (05/12/2025 11:20 AM SIZING MACHINE OPERATOR) Vitamin D 25-OH 33 30 - 80 ng/mL Blood 05/12/2025 11:2 0 AM SIZING MACHINE OPERATOR 05/12/2025 11:36 AM SIZING MACHINE OPERATOR Abby Higgins MD PhD LAB BLOOD ORDERABL ES Final Result Performing Organization Address City/[facility] Co de Phone Number [facility] [place] [address] * (ABNORMAL) INSULIN AUTOANTIBODY (04/28/2025 9:34 AM CDT) Insulin ab 1.8(H) <0.4 U/mL [facility], 04/28/2025 9:34 AM CDT 04/28/2025 9:35 AM CDT Narrative [facility] - 05/05/2025 5:39 AM SIZING MACHINE OPERATOR FASTING:YES FASTING: YES Margaret Balderas MD LAB MICROBIOLOGY - GENERAL O RDERABLES Final Result Performing Organization Address City/[facility]/ZIP Co de Phone Number [facility], [address] [place] [address] * MARCOS-65 autoantibody (04/28/2025 9:34 AM CDT) Glutamic acid decarboxylase 65, ab <5 <5 IU/mL [facility] Comment: This test was performed using the GAD65 JUAN method, which is standardized against the International reference preparation 97/550. Blood 04/28/2025 9:34 AM CDT 04/28/2025 9:35 AM CDT Narrative [facility] - 05/05/2025 5:39 AM SIZING MACHINE OPERATOR FASTING:YES FASTING: YES [facility] Andrey CUMMINGS LAB BLOOD ORDERABLES Final R esult Performing Organization Address [facility] Co de Phone Number [facility] [address] [facility] [place] [address] * NM bone scan whole body (04/24/2025 10:45 AM CDT) Anatomical Region Laterality Modality N/A Nuclear Medicine 04/24/2025 11:0 5 AM CDT Impressions 04/24/2025 11:28 AM CDT 1. No evidence of osseous metastatic disease. 2. Previously described T12 sclerotic lesion is not scintigraphically evident and therefore likely leather goods sales representative of a benign lesion. 3. Multifocal degenerative joint disease. Dictated by: Rajesh Cuevas M.D. The radiology attending physician has personally reviewed this study, and had reviewed and/or edited this written report and agrees with it. Electronically signed by: DO Angi Gil 04/24/2025 11:28 AM CDT EXAMINATION: BONE SCINTIGRAPHY [...] T12 vertebral body sclerotic lesion, therefore likely leather goods sales representative of a benign lesion like a bone island. Procedure Note Yusef Fan DO - 04/24/2025 EXAMINATION: BONE SCINTIGRAPHY [...] T12 vertebral body sclerotic lesion, therefore likely leather goods sales representative of a benign lesion like a bone island. IMPRESSION: 1. No evidence of osseous metastatic disease. 2. Previously described T12 sclerotic lesion is not scintigraphically evident and therefore likely leather goods sales representative of a benign lesion. 3. Multifocal degenerative joint disease. Dictated by: Rajesh Cuevas M.D. The radiology attending physician has personally reviewed this study, and had reviewed and/or edited this written report and agrees with it. Electronically signed by: Yusef Fan DO Ben Chahal MD PhD IM [...] PhD LAB BLOOD ORDERABLES Fin al Result [facility] [place] [address] * (ABNORMAL) Differential, auto (04/20/2025 10:54 AM CDT) Neutrophil abs 4.15 1.50 - 6.50 K/cumm Comment:Testing performed by : [facility] Heme [facility], [address] [place], [place] [phone] Lymphocyte abs 0.64(L) 0.80 - 3.30 K/cumm [facility] Comment:Testing performed by : [facility]e [facility], [address] [place] [address] Monocyte abs 0.44 0.20 - 0.80 K/cumm [facility] Comment:Testing performed by : [facility]e [facility], [address] [place] [address] Eosinophil abs 0.16 0.00 - 0.50 K/cumm [facility] Comment:Testing performed by : [facility]e [facility], [address] [place] [phone] Basophil abs 0.04 0.00 - 0.10 K/cumm [facility] Comment:Testing performed by : [facility]e [facility], [address] [place] [address] Neutrophil pct 76.5 % [facility] Comment: Interpretive Data Percent cell count reference ranges are not reported, since discordance with absolute values may lead to misinterpretation of CBC data. Current Interpretive Data was last revised on 2017. Testing performed by: [facility]e [facility], [address] [place], [place] [id number] Lymphocyte pct 11.7 % [facility] Comment: Interpretive Data Percent cell count reference ranges are not reported, since discordance with absolute values may lead to misinterpretation of CBC data. Current Interpretive Data was last revised on 2017. Testing performed by: [facility], [address] [place] [phone] Monocyte pct 8.2 % [facility] Comment: Interpretive Data Percent cell count reference ranges are not reported, since discordance with absolute values may lead to misinterpretation of CBC data. Current Interpretive Data was last revised on 2017. Testing performed by: [facility], [address] [place], [place] [address] Eosinophil pct 2.9 % [facility] Comment: Interpretive Data Percent cell count reference ranges are not reported, since discordance with absolute values may lead to misinterpretation of CBC data. Current Interpretive Data was last revised on 2017. Testing performed by: [facility]e [facility], [address] [place] [phone] Basophil pct 0.7 % [facility] Comment: Interpretive Data Percent cell count reference ranges are not reported, since discordance with absolute values may lead to misinterpretation of CBC data. Current Interpretive Data was last revised on 2017. Testing performed by: [facility], [address] [place] [phone] Blood 04/20/2025 10:5 4 AM CDT 04/20/2025 10:57 AM CDT Ben Chahal MD PhD LAB BLOOD ORDERABLES Fin al Result [facility] [place] [address] * (ABNORMAL) CBC with auto differential (04/20/2025 10:54 AM CDT) WBC 5.43 3.80 - 9.90 K/cumm Comment:Testing performed by : [facility] Heme [facility], [address] [place] [address] Hgb 12.2(L) 13.0 - 17.5 g/dL DAVID [facility]IRGEN Comment:Testing performed by : [facility], [address] [place] [address] Hct 37.5(L) 38.9 - 50.3 % [facility] Comment:Testing performed by : [facility]e [facility], [address] [place] [address] Plt 137(L) 150 - 400 K/cumm [facility] Comment:Testing performed by : [facility], [address] [place] [address] MPV 8.0 6.8 - 10.4 fL CERPETAR BJ Comment:Testing performed by : [facility], [address] [place] [address] RBC 4.61 4.30 - 5.80 M/cumm [facility]ID [facility] Comment:Testing performed by : [facility], [address] [place] [address] MCV 81.4 81.3 - 96.4 fL CERPETAR BJ Comment:Testing performed by : [facility], [address] [place] [address] MCH 26.4(L) 27.1 - 33.3 pg CERPETAR BJ Comment:Testing performed by : [facility], [address] [place] [address] MCHC 32.4 32.3 - 35.7 g/dL CERPETAR BJ Comment:Testing performed by : [facility], [address] [place] [phone] RDW CV 18.4(H) 11.1 - 14.9 % [facility] Comment:Testing performed by : [facility]e [facility], [address] [place] [phone] NRBC abs 0.00 0.00 - 0.01 K/cumm [facility] Comment:Testing performed by : [facility], [address] [place] [id number] Blood 04/20/2025 10:5 4 AM CDT 04/20/2025 10:57 AM CDT Ben Chahal MD PhD LAB BLOOD ORDERABLES Fin al Result Performing Organization Address [facility] de Phone Number [facility] [place] [address] * Cancer antigen 19-9 (04/20/2025 10:54 AM CDT) Pathologist [facility] CA 19-9 ag 25.3 <=35.0 units/mL Comment: Interpretive Data The Autumn CA 19-9 assay procedure was used. Results from different manufacturers or methods may not be comparable. Serial testing should be performed using the same method. Blood 04/20/2025 10:5 4 AM CDT 04/20/2025 11:32 AM CDT Ben Chahal MD PhD LAB BLOOD ORDERABLES Fin al Result Performing Organization Address [facility] Co de Phone Number [facility] [place] [address] * (ABNORMAL) Comprehensive metabolic panel (04/20/2025 10:54 AM CDT) Pathologist [facility] Sodium 141 135 - 145 mmol/L Potassium, pl 4.4 3.3 - 4.9 mmol/L [facility] Chloride 105 97 - 110 mmol/L [facility] CO2 27 22 - 32 mmol/L [facility] Anion gap 9 2 - 15 mmol/L [facility] BUN 24 6 - 25 mg/dL [facility] Creatinine 0.71(L) 0.80 - 1.30 mg/dL [facility] Glucose 225(H) 70 - 199 mg/dL [facility] Comment: Interpretive Data Fasting glucose >/= [...] 2022. Calcium 9.3 8.5 - 10.3 mg/dL [facility] Bilirubin, total 0.3 0.1 - 1.2 mg/dL [facility] Protein, pl 6.8 6.5 - 8.5 g/dL [facility] Albumin 3.8 3.5 - 5.0 g/dL [facility] Alk phos 413(H) 40 - 130 Units/L [facility] ALT 40 7 - 55 Units/L [facility] AST 33 10 - 50 Units/L [facility] Blood 04/20/2025 10:5 4 AM CDT 04/20/2025 11:03 AM CDT us Ben Chahal MD PhD LAB BLOOD ORDERABLES Fin al Result [facility] [place] [address] * CT chest abdomen pelvis with contrast [...] Electronically signed by: Kolton Dale M.D. Narrative 04/20/2025 12:18 PM CDT [...] it. Electronically signed by: Kolton Dale M.D. Tiffany WAYNE IMG CT PROCEDURES Final Re sult * SCAN - LABS (04/16/2025) Provider Scanning Edited Result - Final * Islet antigen 2 (IA-2) antibody (04/14/2025 11:32 AM CDT) IA-2 Ab <5.4 <5.4 U/mL [facility]/Arlin rodriguez [facility], Comment: This test was performed using the IA-2 Antibody JUAN method which is standardized against the WHO Reference Reagent 97/550. The reference range reported was established specifically for this test method. Blood 04/14/2025 11:3 2 AM CDT 04/14/2025 11:32 AM CDT Narrative [facility] - 04/18/2025 4:30 PM CDT FASTING:YES FASTING: YES Margaret Balderas MD LAB BLOOD ORDERABLES Final R esult [facility], [address] [place] [address] * ZINC TRANSPORTER 8 (ZnT8) ANTIBODY (04/14/2025 11:32 AM CDT) Pathologist [facility] Zinc Transporter 8 (Znt8) Antibody <10 <15 U/mL [facility]/ [facility], Comment: For additional information, please refer to http://education.[employer]/faq/SYN918 (This link is being provided for information/educational purposes only.) Blood 04/14/2025 11:3 2 AM CDT 04/14/2025 11:32 AM CDT Narrative [facility] - 04/18/2025 4:30 PM CDT FASTING:YES FASTING: YES Margaret Balderas MD LAB BLOOD ORDERABLES Final R esult Performing Organization Address City/[facility]/ZIP Co de Phone Number [facility], [address] [place] [address] * C-peptide (04/14/2025 11:32 AM CDT) [facility] C-peptide 1.24 0.80 - 3.85 ng/mL [facility] diggs Blood 04/14/2025 11:3 2 AM CDT 04/14/2025 11:32 AM CDT Narrative [facility] - 04/18/2025 4:30 PM CDT FASTING:YES FASTING: YES Margaret Balderas MD LAB BLOOD ORDERABLES Final R esult [facility] [address] [place] [address] * (ABNORMAL) Basic metabolic panel (04/14/2025 11:32 AM CDT) Pathologist [facility] Glucose 183(H) 65 - 99 mg/dL [facility]udwig [facility] Comment: Fasting reference interval For someone without known diabetes, a glucose value >125 mg/dL indicates that they may have diabetes and this should be confirmed with a follow-up test. BUN 17 7 - 25 mg/dL [facility] Creatinine 0.68(L) 0.70 - 1.28 mg/dL [facility] summer [facility] eGFR 100 > OR = 60 mL/min/1.7 3m2 [facility] BUN/creat ratio 25(H) 6 - 22 (calc) [facility] Sodium 143 135 - 146 mmol/L [employer] [facility] Potassium, pl 4.6 3.5 - 5.3 mmol/L [employer] Chloride 107 98 - 110 mmol/L [facility] CO2 28 20 - 32 mmol/L [employer] Calcium 9.2 8.6 - 10.3 mg/dL [employer] summer [facility] Blood 04/14/2025 11:3 2 AM CDT 04/14/2025 11:32 AM CDT Narrative [facility] - 04/18/2025 4:30 PM CDT FASTING:YES FASTING: YES Margaret Balderas MD LAB BLOOD ORDERABLES Final R esult [facility] [address] [place] [address] * POCT glucose (04/03/2025 8:32 AM CDT) [facility] Glucose, POC 152 70 - 199 mg/dL Comment: Interpretive Data Glucose is assumed to be non-fasting. Fasting Glucose reference ranges are: 0 - 150 years: 70 mg/dL - 99 mg/dL Current interpretive data was last revised on 2014. POC Device Number [id number] 1 DAVID PEOPLES Blood 04/03/2025 8:32 AM CDT 04/03/2025 8:32 AM CDT us Jenaro Villalobos MD LAB POCT ORDERABLES - DEVICE Final Result DAVID VIRGENWCH [address] [employer]. [facility] scroll kit [place], [place] [id number] * (ABNORMAL) POCT glucose (04/02/2025 8:44 PM CDT) Glucose, POC 293(H) 70 - 199 mg/dL Comment: Interpretive Data Glucose is assumed to be non-fasting. Fasting Glucose reference ranges are: 0 - 150 years: 70 mg/dL - 99 mg/dL Current interpretive data was last revised on 2014. POC Device Number [id number] 4 DAVID SWEENEY[employer]itness Blood 04/02/2025 8:44 PM CDT 04/02/2025 8:44 PM CDT us Eugenie Garibay MD LAB POCT ORDERABLES - DEVICE Final Result Performing Organization Address [facility] Co de Phone Number [facility] [address] [facility] System[facility]ilib[facility]. [facility] [place] [address] * POCT glucose (04/02/2025 6:46 PM CDT) Glucose, POC 187 70 - 199 mg/dL Comment: Interpretive Data Glucose is assumed to be non-fasting. Fasting Glucose reference ranges are: 0 - 150 years: 70 mg/dL - 99 mg/dL Current interpretive data was last revised on 2014. POC Device Number [id number] 4 [facility] Blood 04/02/2025 6:46 PM CDT 04/02/2025 6:46 PM CDT us Eguenie Garibay MD LAB POCT ORDERABLES - DEVICE Final Result Performing Organization Address [facility] Co de Phone Number [facility] BJWCH [address] [facility]. [facility] [place] [address] * POCT glucose (04/02/2025 5:32 PM CDT) Glucose, POC 141 70 - 199 mg/dL Comment: Interpretive Data Glucose is assumed to be non-fasting. Fasting Glucose reference ranges are: 0 - 150 years: 70 mg/dL - 99 mg/dL Current interpretive data was last revised on 2014. POC Device Number [id number] 4 DAVID PEOPLES Blood 04/02/2025 5:32 PM CDT 04/02/2025 5:32 PM CDT us Eugenie Garibay MD LAB POCT ORDERABLES - DEVICE Final Result Performing Organization Address City/[facility]/ZIP Co de Phone Number DAVID VIRGENCH [address] [employer]. [facility] scroll kit [place], [place] [phone] * Lactate (04/02/2025 2:27 PM CDT) Lactate 1.5 0.7 - 2.0 mmol/L Blood 04/02/2025 2:27 PM CDT 04/02/2025 2:31 PM CDT us Radha Thompson NP LAB BLOOD ORDERABLES Final Result Performing Organization Address [facility] Co de Phone Number DAVID VIRGENCH [address] [address] Department [employer] [place], [place] [phone] * eGFR (04/02/2025 2:27 PM CDT) eGFR [...] Thompson NP LAB BLOOD ORDERABLES Final Result [facility] [address] [facility]. [place] [address] * (ABNORMAL) Differential, auto (04/02/2025 2:27 PM [...] K/cumm CERNER BJWCH Neutrophil pct 70.7 % [facility] Comment: Interpretive Data Percent cell count reference ranges are not reported, since discordance with absolute values may lead to misinterpretation of CBC data. Current Interpretive Data was last revised on 2017. Imm gran pct 0.4 % [facility] Comment: Interpretive Data Percent cell [...] NP LAB BLOOD ORDERABLES Final Result [facility] [address] [facility]. [place] [address] * Pro B-type natriuretic peptide (04/02/2025 2:27 [...] et.al. Eur Heart J. 2006:27:330-337. 2. Constantino MCQUEEN, Naty HO. J. AM Anthony Cardiol: Cardiovasc Imag. 2009;2: 216- 225. Interpretive Data Last Revised Date: 2018. Blood 04/02/2025 2:27 PM CDT 04/02/2025 2:31 PM CDT Radha Thompson NP LAB BLOOD ORDERABLES Final Result [facility] [address] [facility]. [place] [address] * (ABNORMAL) CBC with auto differential (04/02/2025 2:27 PM CDT) Pathologist [facility] WBC 4.88 3.80 - 9.90 K/cumm Hgb 12.2(L) 13.0 - 17.5 g/dL [facility] Hct 37.1(L) 38.9 - 50.3 % [facility] Plt 170 150 - 400 K/cumm [facility] MPV 10.3 9.1 - 12.[address] [facility] RBC 4.54 4.30 - 5.80 M/cumm [facility] MCV 81.7 81.3 - 96.[address] [facility] MCH 26.9(L) 27.1 - 33.[address] [facility] MCHC 32.9 32.3 - 35.7 g/dL [facility] RDW CV 16.2(H) 11.1 - 14.9 % [facility] RDW SD 48.1 35.7 - 48.[address] [facility] NRBC abs 0.00 0.00 - 0.01 K/cumm [facility] Blood 04/02/2025 2:27 PM CDT 04/02/2025 2:31 PM CDT Radha Thompson NP LAB BLOOD ORDERABLES Final Result DAVID SWEENEY [address] [address] [place] [address] * (ABNORMAL) Comprehensive metabolic panel (04/02/2025 2:27 [...] BLOOD ORDERABLES Final Result Performing Organization Address [facility] Co de Phone Number DAVID BJWCH [address] [facility]. [place] [address] * ECG 12 lead (04/02/2025 2:02 PM CDT) 04/02/2025 2:02 PM CDT Narrative [facility] - 04/03/2025 4:18 PM CDT Vent Rate: 60 bpm RR Interval: 997 msec WA Interval: 273 msec QRS Duration: 169 msec QT Interval: 475 msec QTC Interval: 475 msec P-R-T [place]: 89 - 234 - 179 degrees IMPRESSION: ELECTRONIC ATRIAL PACEMAKER RIGHT AXIS DEVIATION RIGHT BUNDLE BRANCH BLOCK ABNORMAL ECG Electronically Signed By: Gautam Hope MD Radha Thompson COTTON PICKING MACHINE OPERATOR ECG ORDERABLES Tete l Result Performing Organization Address [facility] de Phone Number [facility] [employer] [facility] * XR Chest 1 View (04/02/2025 [...] signed by: Shabbir Jett M.D. Radha Thompson COTTON PICKING MACHINE OPERATOR IMG XR PROCEDURES Fi nal Result * (ABNORMAL) POCT glucose (04/02/2025 11:51 AM CDT) Glucose, POC 248(H) 70 - 199 mg/dL Comment: Interpretive Data Glucose is assumed to be non-fasting. Fasting Glucose reference ranges are: 0 - 150 years: 70 mg/dL - 99 mg/dL Current interpretive data was last revised on 2014. POC Device Number [id number] 1 CERNER [employer] Blood 04/02/2025 11:5 1 AM CDT 04/02/2025 11:51 AM CDT Result [facility] Eugenie Garibay MD LAB POCT ORDERABLES - DEVICE Final Result DAVID BJWCH [address] [facility]. [place] [address] * (ABNORMAL) POCT glucose (04/02/2025 8:48 AM CDT) Glucose, POC 221(H) 70 - 199 mg/dL Comment: Interpretive Data Glucose is assumed to be non-fasting. Fasting Glucose reference ranges are: 0 - 150 years: 70 mg/dL - 99 mg/dL Current interpretive data was last revised on 2014. POC Device Number [id number] [employer]WCH Blood 04/02/2025 8:48 AM CDT 04/02/2025 8:48 AM CDT Eugenie Garibay MD LAB POCT ORDERABLES - DEVICE Final Result Performing Organization Address [facility] Co de Phone Number DAVID VIRGENCH [address] [facility] [place] [address] * POCT glucose (04/02/2025 2:02 AM CDT) Glucose, POC 158 70 - 199 mg/dL Comment: Interpretive Data Glucose is assumed to be non-fasting. Fasting Glucose reference ranges are: 0 - 150 years: 70 mg/dL - 99 mg/dL Current interpretive data was last revised on 2014. POC Device Number [id number] 4 DAVID PEOPLES Blood 04/02/2025 2:02 AM CDT 04/02/2025 2:02 AM CDT us Eugenie Garibay MD LAB POCT ORDERABLES - DEVICE Final Result Performing Organization Address [facility] de Phone Number [facility] [address] [facility]. [facility] [place] [address] * POCT glucose (04/02/2025 12:46 AM CDT) Glucose, POC 138 70 - 199 mg/dL Comment: Interpretive Data Glucose is assumed to be non-fasting. Fasting Glucose reference ranges are: 0 - 150 years: 70 mg/dL - 99 mg/dL Current interpretive data was last revised on 2014. POC Device Number [id number] 1 DAVID PEOPLES Blood 04/02/2025 12:4 6 AM CDT 04/02/2025 12:46 AM CDT us Eugenie Garibay MD LAB POCT ORDERABLES - DEVICE Final Result Performing Organization Address [facility] de Phone Number DAVID BJWCH [address] [facility]. [facility] [place] [address] * POCT glucose (04/01/2025 10:30 PM CDT) Glucose, POC 133 70 - 199 mg/dL Comment: Interpretive Data Glucose is assumed to be non-fasting. Fasting Glucose reference ranges are: 0 - 150 years: 70 mg/dL - 99 mg/dL Current interpretive data was last revised on 2014. POC Device Number [id number] 1 DAVID PEOPLES Blood 04/01/2025 10:3 0 PM CDT 04/01/2025 10:30 PM CDT Eugenie Garibay MD LAB POCT ORDERABLES - DEVICE Final Result Performing Organization Address [facility] Co de Phone Number [facility] [address] [facility] scroll kit [place], [place] [id number] * POCT glucose (04/01/2025 7:30 PM CDT) Glucose, POC 183 70 - 199 mg/dL Comment: Interpretive Data Glucose is assumed to be non-fasting. Fasting Glucose reference ranges are: 0 - 150 years: 70 mg/dL - 99 mg/dL Current interpretive data was last revised on 2014. POC Device Number [id number] 4 DAVID PEOPLES Blood 04/01/2025 7:30 PM CDT 04/01/2025 7:30 PM CDT us Eugenie Garibay MD LAB POCT ORDERABLES - DEVICE Final Result Performing Organization Address [facility] Co de Phone Number [facility] [address] [facility] [place] [address] * (ABNORMAL) POCT glucose (04/01/2025 6:29 PM CDT) Glucose, POC 405(H) 70 - 199 mg/dL Comment: Interpretive Data Glucose is assumed to be non-fasting. Fasting Glucose reference ranges are: 0 - 150 years: 70 mg/dL - 99 mg/dL Current interpretive data was last revised on 2014. POC Device Number [id number] 4 CERNER BJ[facility] Blood 04/01/2025 6:29 PM CDT 04/01/2025 6:29 PM CDT us Eugenie Garibay MD LAB POCT ORDERABLES - DEVICE Final Result Performing Organization Address [facility] Phone Number DAVID VIRGENCH [address] [place] [address] * (ABNORMAL) POCT glucose (04/01/2025 4:41 PM CDT) Glucose, POC 313(H) 70 - 199 mg/dL Comment: Interpretive Data Glucose is assumed to be non-fasting. Fasting Glucose reference ranges are: 0 - 150 years: 70 mg/dL - 99 mg/dL Current interpretive data was last revised on 2014. POC Device Number [id number] 4 DAVID PEOPLES Blood 04/01/2025 4:41 PM CDT 04/01/2025 4:41 PM CDT us Eugenie Garibay MD LAB POCT ORDERABLES - DEVICE Final Result Performing Organization Address [facility] Phone Number DAVID VIRGENCH [address] [place] [address] * POCT glucose (04/01/2025 11:32 AM CDT) Glucose, POC 164 70 - 199 mg/dL Comment: Interpretive Data Glucose is assumed to be non-fasting. Fasting Glucose reference ranges are: 0 - 150 years: 70 mg/dL - 99 mg/dL Current interpretive data was last revised on 2014. POC Device Number [id number] 4 DAVID PEOPLES Blood 04/01/2025 11:3 2 AM CDT 04/01/2025 11:32 AM CDT us Eugenie Garibay MD LAB POCT ORDERABLES - DEVICE Final Result Performing Organization Address [facility] de Phone Number DAVID BJWCH [address] [employer]. [facility] [place] [address] * POCT glucose (04/01/2025 7:52 AM CDT) Glucose, POC 187 70 - 199 mg/dL Comment: Interpretive Data Glucose is assumed to be non-fasting. Fasting Glucose reference ranges are: 0 - 150 years: 70 mg/dL - 99 mg/dL Current interpretive data was last revised on 2014. POC Device Number [id number] 1 DAVID PEOPLES Blood 04/01/2025 7:52 AM CDT 04/01/2025 7:52 AM CDT us Eugenie Garibay MD LAB POCT ORDERABLES - DEVICE Final Result Performing Organization Address [facility] de Phone Number [facility] BJWCH [address] [employer]. [facility] [place] [address] * (ABNORMAL) POCT glucose (03/31/2025 10:21 PM CDT) Glucose, POC 234(H) 70 - 199 mg/dL Comment: Interpretive Data Glucose is assumed to be non-fasting. Fasting Glucose reference ranges are: 0 - 150 years: 70 mg/dL - 99 mg/dL Current interpretive data was last revised on 2014. POC Device Number [id number] 1 DAVID PEOPLES Blood 03/31/2025 10:2 1 PM CDT 03/31/2025 10:21 PM CDT us Neeru Funk MD LAB POCT ORDERABLES - DEVICE Final Result Performing Organization Address [facility] Co de Phone Number CERNER BJWCH [address] [employer]. [facility] [place] [address] * CT Lumbar Spine WO Contrast (03/31/2025 [...] effect or midline shift is present. The lucsa-white matter differentiation is normal. The visualized portions [...] signed by: Jay Alexis MD Ivanna WAYNE IMG CT PROCEDURES Final Res [...] tendency for uric acid stone formation. Source: [facility] Current Interpretive Data was last [...] 5:22 PM CDT 03/31/2025 5:26 PM CDT Ivanna WAYNE LAB MICROBIOLOGY - GENERAL ORDERABLES Final Result DAVID SWEENEYCH [address] [address] [place] [address] * Influenza A/B, RSV, and COVID-19 PCR Nasopharyngeal (03/31/2025 3:04 PM CDT) Pathologist [facility] COVID-19 RNA Negative Negative Influenza A RNA Negative Negative [facility] Influenza B RNA Negative Negative [facility] RSV RNA Negative Negative [facility] Comment: Testing performed by [facility]. This test is performed using the [employer] Xpert Xpress CoV-2/Flu/RSV plus assay. This is a multiplex, real-time reverse transcriptase PCR assay intended for the qualitative detection of nucleic acid from SARS-CoV-2, influenza A, influenza B, and respiratory syncytial virus. This assay has been cleared by the [place] Food and Drug administration. The performance characteristics have been verified by the [facility]. Results must be considered in the clinical context, and a negative result does not rule out infection. Interpretive Data last revised 2023 Nasopharyngeal 03/31/2025 3: 04 PM CDT 03/31/2025 3:08 PM CDT Narrative [facility] - 03/31/2025 3:55 PM CDT Is the Patient experiencing symptoms consistent with COVID?->Yes Ivanna WAYNE LAB MICROBIOLOGY - GENERAL ORDERABLES Final Result DAVID PEOPLES [address] [address] [place] [address] * eGFR (03/31/2025 3:04 PM CDT) Pathologist [facility] eGFR >90 >=60 mL/min/1. 73 [...] WAYNE LAB BLOOD ORDERABLES Final Result [facility] [address] [facility]. [place] [address] * (ABNORMAL) Differential, auto (03/31/2025 3:04 PM [...] K/cumm [facility]ER [facility] Neutrophil pct 77.9 % CERNER [facility] Comment: Interpretive Data Percent cell count reference ranges are not reported, since discordance with absolute values may lead to misinterpretation of CBC data. Current Interpretive Data was last revised on 2017. Imm gran pct 0.5 % CERNER [facility] Comment: Interpretive Data Percent cell count reference ranges are not reported, since discordance with absolute values may lead to misinterpretation of CBC data. Current Interpretive Data was last revised on 2017. Lymphocyte pct 9.3 % C[facility]ER [facility] Comment: Interpretive Data Percent cell count reference ranges are not reported, since discordance with absolute values may lead to misinterpretation of CBC data. Current Interpretive Data was last revised on 2017. Monocyte pct 10.6 % [facility] Comment: Interpretive Data Percent cell count reference ranges are not reported, since discordance with absolute values may lead to misinterpretation of CBC data. Current Interpretive Data was last revised on 2017. Eosinophil pct 1.4 % [facility] Comment: Interpretive Data Percent cell count reference ranges are not reported, since discordance with absolute values may lead to misinterpretation of CBC data. Current Interpretive Data was last revised on 2017. Basophil pct 0.3 % [facility] Comment: Interpretive Data Percent cell count reference ranges are not reported, since discordance with absolute values may lead to misinterpretation of CBC data. Current Interpretive Data was last revised on 2017. Blood 03/31/2025 3:04 PM CDT 03/31/2025 3:08 PM CDT us Ivanna WAYNE LAB BLOOD ORDERABLES Final Result [facility] [address] [facility]. [place] [address] * (ABNORMAL) CBC with auto differential (03/31/2025 3:04 PM CDT) WBC 8.74 3.80 - 9.90 K/cumm Hgb 12.2(L) 13.0 - 17.5 g/dL [facility] Hct 38.4(L) 38.9 - 50.3 % [facility] Plt 199 150 - 400 K/cumm [facility] MPV 11.1 9.1 - 12.[address] [facility] RBC 4.57 4.30 - 5.80 M/cumm [facility] MCV 84.0 81.3 - 96.[address] [facility] MCH 26.7(L) 27.1 - 33.[address] [facility] MCHC 31.8(L) 32.3 - 35.7 g/dL [facility] RDW CV 16.6(H) 11.1 - 14.9 % [facility] RDW SD 50.6(H) 35.7 - 48.1 fL [facility] NRBC abs 0.00 0.00 - 0.01 K/cumm [facility] Blood Venous blood specimen / Unknown 03/31/2025 3:04 PM CDT 03/31/2025 3:08 PM CDT Ivanna WAYNE LAB BLOOD ORDERABLES Final Result Performing Organization Address [facility] de Phone Number [facility] [address] [employer] [employer] [place], [place] [phone] * (ABNORMAL) Hemoglobin A1c (03/31/2025 3:04 PM CDT) Hgb A1C 8.2(H) 4.0 - 5.6 % Estimated Average Glucose 189 mg/dL [facility] Comment: The ADA recommends reporting an estimated Average Glucose (eAG) with all Hemoglobin A1c results using the equation derived from a study of 507 normal and diabetic adults. Minority populations were underrepresented and children were not included. (Diabetes Care 31:1038-8730, 2008). The eAG is not equivalent to a fasting glucose. Blood 03/31/2025 3:04 PM CDT 03/31/2025 3:08 PM CDT Eugenie Garibay MD LAB BLOOD ORDERABLES Final R esult Performing Organization Address [facility] Co de Phone Number [facility] [address] [facility] [place] [address] * (ABNORMAL) Comprehensive metabolic panel (03/31/2025 3:04 PM CDT) Sodium 135 135 - 145 mmol/L Potassium, pl 4.2 3.3 - 4.9 mmol/L [facility] Chloride 101 97 - 110 mmol/L [facility] CO2 21(L) 22 - 32 mmol/L [facility] Anion gap 13 2 - 15 mmol/L [facility] BUN 19 6 - 25 mg/dL [facility] Creatinine 0.63(L) 0.80 - 1.30 mg/dL [facility] Glucose 199 70 - 199 mg/dL [facility] Comment: Interpretive Data Fasting glucose >/= 126 [...] Calcium 9.5 8.5 - 10.3 mg/dL [facility] Bilirubin, total 0.4 0.1 - 1.2 mg/dL [facility] Protein, pl 6.9 6.5 - 8.5 g/dL [facility] Albumin 3.7 3.5 - 5.0 g/dL [facility] Alk phos 742(H) 40 - 130 Units/L [facility] ALT 84(H) 7 - 55 Units/L [facility] AST 39 10 - 50 Units/L [facility] Blood 03/31/2025 3:04 PM CDT 03/31/2025 3:08 PM CDT us Ivanna WAYNE LAB BLOOD ORDERABLES Final Result [facility] [address] [facility]. [place] [address] * (ABNORMAL) POCT glucose (03/05/2025 12:14 PM CDT) [facility] Glucose, POC 386(H) 70 - 199 mg/dL Comment: Interpretive Data Glucose is assumed to be non-fasting. Fasting Glucose reference ranges are: 0 - 150 years: 70 mg/dL - 99 mg/dL Current interpretive data was last revised on 2014. POC Device Number [id number] [facility] Blood 03/05/2025 12:1 4 PM CDT 03/05/2025 12:14 PM CDT us Jae Dave MD LAB POCT ORDERABLES - DEVICE Fin al Result Performing Organization Address [facility] de Phone Number [facility] [address] [facility] [place] [address] * POCT glucose (03/05/2025 8:54 AM CDT) [facility] Glucose, POC 146 70 - 199 mg/dL Comment: Interpretive Data Glucose is assumed to be non-fasting. Fasting Glucose reference ranges are: 0 - 150 years: 70 mg/dL - 99 mg/dL Current interpretive data was last revised on 2014. POC Device Number [id number] [facility] [place] Blood 03/05/2025 8:54 AM CDT 03/05/2025 8:54 AM CDT us Jae Dave MD LAB POCT ORDERABLES - DEVICE Fin al Result Performing Organization Address [facility] de Phone Number [facility] [address] [facility] [place] [address] * US LEONOR (03/05/2025 5:37 AM CDT) [...] disease. Electronically signed by: Shabbir Jett M.D. Yusef WAYNE IMG US PROCEDURES Final Result * [...] MD LAB BLOOD ORDERABLES Final Result [facility] [address] [facility]. [place] [address] * (ABNORMAL) Differential, auto (03/05/2025 [...] K/cumm [facility] Neutrophil pct 60.4 % [facility] Comment: Interpretive Data Percent cell count reference ranges are not reported, since discordance with absolute values may lead to misinterpretation of CBC data. Current Interpretive Data was last revised on 2017. Imm gran pct 0.3 % [facility] Comment: Interpretive Data Percent cell count reference ranges are not reported, since discordance with absolute values may lead to misinterpretation of CBC data. Current Interpretive Data was last revised on 2017. Lymphocyte pct 17.8 % [facility] Comment: Interpretive Data Percent cell count reference ranges are not reported, since discordance with absolute values may lead to misinterpretation of CBC data. Current Interpretive Data was last revised on 2017. Monocyte pct 13.0 % [facility] Comment: Interpretive Data Percent cell count reference ranges are not reported, since discordance with absolute values may lead to misinterpretation of CBC data. Current Interpretive Data was last revised on 2017. Eosinophil pct 8.0 % [facility] Comment: Interpretive Data Percent cell count reference ranges are not reported, since discordance with absolute values may lead to misinterpretation of CBC data. Current Interpretive Data was last revised on 2017. Basophil pct 0.5 % [facility] Comment: Interpretive Data Percent cell count reference ranges are not reported, since discordance with absolute values may lead to misinterpretation of CBC data. Current Interpretive Data was last revised on 2017. Blood 03/05/2025 3:59 AM CDT 03/05/2025 4:03 AM CDT Rosa Camp MD LAB BLOOD ORDERABLES Final Result [facility] [address] [facility] [place] [address] * (ABNORMAL) CBC with auto differential (03/05/2025 3:59 AM CDT) WBC 3.76(L) 3.80 - 9.90 K/cumm Hgb 10.4(L) 13.0 - 17.5 g/dL [facility] Hct 32.9(L) 38.9 - 50.3 % [facility] Plt 118(L) 150 - 400 K/cumm [facility] MPV 10.4 9.1 - 12.[address] [facility] RBC 3.99(L) 4.30 - 5.80 M/cumm [facility] MCV 82.5 81.3 - 96.[address] [facility] MCH 26.1(L) 27.1 - 33.[address] [facility] MCHC 31.6(L) 32.3 - 35.7 g/dL [facility] RDW CV 16.2(H) 11.1 - 14.9 % [facility] RDW SD 49.4(H) 35.7 - 48.1 fL [facility] NRBC abs 0.00 0.00 - 0.01 K/cumm [facility] Blood 03/05/2025 3:59 AM CDT 03/05/2025 4:03 AM CDT Rosa Camp MD LAB BLOOD ORDERABLES Final Result [facility] [place] [address] [facility]. [place] [address] * (ABNORMAL) Comprehensive metabolic panel (03/05/2025 3:59 [...] AST 34 10 - 50 Units/L [facility] Blood 03/05/2025 3:59 AM CDT 03/05/2025 4:03 AM CDT Rosa Camp MD LAB BLOOD ORDERABLES Final Result [facility] [address] [facility]. [place] [address] * Hepatitis panel, acute Blood (03/03/2025 3:04 PM CDT) Hep A IgM Nonreactive Nonreactive Comment: Interpretive Data: If Hep A IgM Ab is reported as Equivocal, a new sample should be drawn in two weeks for testing. Current interpretive data was last revised on 19. Testing performed by: [facility], [address] [place] [address]., [address] Hep B core IgM Nonreactive Nonreactive [facility] Comment: Interpretive Data If HepB Core IgM Ab is reported as Equivocal, a new sample should be drawn in two weeks for testing. Current interpretive data was last revised on 19. Testing performed by: [facility], [address] [place] [address]., [address] Hep C Ab Nonreactive Nonreactive [facility] Comment: Interpretive Data Nonreactive: Antibodies to HCV [...] last revised on 2019. Testing performed by: [facility], [address] [place] [address]., [address] HepBsAg Nonreactive Nonreactive [facility] Comment:Testing performed by : [facility], [address] [place] [address]., [id number] Blood 03/03/2025 3:04 PM CDT 03/03/2025 5:07 PM CDT us Yusef WAYNE LAB MICROBIOLOGY - GENERAL ORDERABLES Final Result [facility] [place] [address] [facility]. [place] [address] * (ABNORMAL) Lipid panel (11/19/2024 1:05 PM [...] LAB BLOOD ORDERABLES Fi nal Result DAV[facility] [address] [facility]. [place] [address] * Colonoscopy (11/11/2024 11:01 AM CDT) Anatomical Region Laterality Modality Other Narrative Procedure Note Trang Ryan MD - 11/11/2024 11:01 AM CDT ENDOSCOPY LAB Patient Name: Rah Greco Procedure Date: 11/11/2024 11:01 AM Date of : 1955 Admit Type: Outpatient Age: 69 Gender: Male Attending MD: Trang Ryan M.D. Room: [facility] ENDOSCOPY ROOM 01 Note Status: Finalized Procedure: [...] The scope was passed under direct vision.The [id number] was introduced through the anusand advanced to [...] CDT 02/29/2024 8:28 AM CDT Clemencia Beatty COTTON PICKING MACHINE OPERATOR LAB URINE ORDERABLES Tete l Result [facility] [address] [place] [address] * PSA screen (04/16/2020 7:01 AM CDT) PSA 0.1 < OR = 4.0 ng/mL [facility] Comment: The total PSA value from this assay system is standardized against the WHO standard. The test result will be approximately 20% lower when compared to the equimolar-standardized total PSA ([place]). Comparison of serial PSA results should be [...] LAB BLOOD ORDERABLES Final R esult [facility] [address] [address] [address] from Last 3 Months or Most Recently Relevant to Health Maintenance Insurance HUMANA CHOICE MEDICARE PPO [facility]OK [facility] AETNA MCR GOLD REF AETNA SENIOR SUPPLEMENT HUMANA CHOICE MEDICARE PPO MEDICARE IDPA HUMANA CHOICE MEDICARE PPO IDPA IDPA HUMANA CHOICE MEDICARE PPO IDPA [facility] MEDICARE HMO Advance Directives For more information, please contact: [phone] Documents on File Type Date Recorded Patient Crusher Foreman Expl anation ADVANCE DIRECTIVE 05/22/2023 5:43 PM Claudine Ellis POWER OF TIRE FIXER-MEDICAL ADVANCE DIRECTIVE 04/12/2023 6:16 PM [place] R OF TIRE FIXER-MEDICAL ADVANCE DIRECTIVE 04/12/2023 6:09 PM [place] R OF TIRE FIXER-MEDICAL * Full Code (Latest Code Status on [...] Relationship Healthcare Agent Relationshi p Communication Claudine Greco Spouse Health Care Agent [email or web address] Meghan Ellis Daughter First Alternate Health Care Agent Sushant Greco Son Second Alternate Health Care Agent [email or web address] Medical Logistics Specialist Relationship Specialty Start Date End Date Kenton Ricks MD PCP - General 08/14/16 Pebbles Nelson MD Referring Physician Cardiology 02/07/19 Aylin Russ MD [address] [address] Referring Physician Pulmonary Disease 02/07/19 Maricruz Ramirez NP [address] [address] Nurse Practitioner Cardiovascular Disease 09/25/21 Joanne Lopez, [place] Registered Nurse Pulmonary Disease 08/24/22 Ben Chahal MD PhD Medical Oncologist/Hematologis t Medical Oncology 10/05/22 Giovanna Alexis MD Radiation Oncologist Radiation Oncology 03/09/23 Abby Higgins MD PhD Medical Oncologist/Hematologis t Medical Oncology 05/10/23 Adrian Martinez MD [address] [facility] DIV SURG TRANSPLANT, [address] [place] [address] Surgical Oncologist Surgical Oncology 05/28/23 Vera Pérez PA [address] [id number] [place] [address] Physician Researcher Colon and Rectal Surgery 09/13/23 Jim Frausto MD [address] [facility] [phone] [place] [address] Surgeon Colon and Rectal Surgery 11/21/23
--- OUTSIDE RECORDS SUMMARY | 2025-06-04 10:37 | XMS_ITS | Encounter Summary ---
Author Organization [facility] Address [address] [place] [address] Care Team Providers Care Rail Car Painter/Sandblaster Name Role Phone Kenton Ricks MD Primary Care Provider [phone] Encounter Details Date Type Department Care Team (Late st Contact Info) Description 10/06/2001 Outpatient [facility] [address] [place] [address]. [place] [address] Anika Rowan MD NO ADDRESS ON FILE Social History Tobacco Use Types Packs/Day Years Used Date Smoking Tobacco: Never Assessed Sex and Gender Information Value Date Recorded Sex Assigned at Not on file Legal Sex Male 4:35 AM DIGITAL MARKETING LEAD Gender Identity Not on file Sexual Orientation Not on file documented as of this encounter Plan of Treatment Not on file documented as of this encounter Visit Diagnoses Not on filedocumented in this encounter Care Teams Rail Car Painter/Sandblaster Relationship Specialty Start Date End Date Kenton Ricks MD [address] [place] [id number] PCP - General Family Practice 11/15/18 documented as of this encounter
--- OUTSIDE RECORDS SUMMARY | 2025-06-04 10:37 | XMS_ITS | Encounter Summary ---
Author Organization [facility] Address [address] [place] [address] Phone Care Team Providers Care Mold Presser Name Role Phone Kenton Ricks MD Primary Care Provider + [phone] Kenton Ricks MD Primary Care Provider + [phone] Pebbles Nelson MD Unavailable [phone] Aylin Russ MD Unavailable [phone] Maricruz Ramirez NP Unavailable [phone] Joanne Lopez RN Unavailable Padmini Leatha Carter Unavailable Unavailable Ben Chahal MD PhD Unavailable [phone] Chace Oliva MD Unavailable [phone] Giovanna Alexis MD Unavailable Taisha Suarez RN Unavailable Unavaila Sandra Aguirre MD Unavailable [phone] Abby Higgins MD PhD Unavailable + Adrian Martinez MD Unavailable [phone] Vera Pérez Unavailable Jim Frausto MD Unavailable Анна Robert RN Unavailable [phone] Encounter Details Date Type Department Care Team (Late st Contact Info) Description 05/14/2015 Orders Only [facility] Provider, Max, [address] [place] [address] Social History Tobacco Use Types Packs/Day Years Used Date Smoking Tobacco: Never Assessed Sex and Gender Information Value Date Recorded Sex Assigned at Not on file Legal Sex Male 12:58 AM LOZENGE DOUGH MIXER Gender Identity Male 11/11/2018 10:31 AM CDT Sexual Orientation Straight 06/09/2019 5: 34 PM LOZENGE DOUGH MIXER documented as of this encounter Plan [...] COVID: Suspected 06/07/2023 06/07/2023 06/07/2023 12:46 PM LOZENGE DOUGH MIXER COVID19 06/07/2023 06/07/2023 06/22/2023 3:06 AM LOZENGE DOUGH MIXER COVID: Recovered Comment:Added based on recent COVID infection. 06/22/2023 06/22/2023 09/20/2023 3:05 AM C DT COVID: Suspected 07/24/2023 07/24/2023 07/24/2023 3:53 PM LOZENGE DOUGH MIXER Diarrhea 07/30/2023 07/30/2023 08/13/2023 3:05 AM LOZENGE DOUGH MIXER COVID: Suspected 08/30/2023 08/30/2023 08/30/2023 4:52 PM LOZENGE DOUGH MIXER COVID: Suspected 10/12/2023 10/12/2023 10/12/2023 7:57 PM CDT Rhino/Enterovirus 10/12/2023 10/12/202310/2510/26/2023 3:05 AM CDT COVID: Suspected 07/10/2024 07/10/2024 07/10/2024 4:53 PM LOZENGE DOUGH MIXER COVID: Suspected Comment:07/16/2024 IP Review: no outstanding test, last RPP negative. Mary Tiwari RN 07/16/2024 07/16/2024 10:51 AM LOZENGE DOUGH MIXER COVID19 Comment:07/16/2024 IP Review: added by RN, RPP negative. Mary Tiwari RN 07/16/2024 07/16/2024 07/16/2024 10:51 AM LOZENGE DOUGH MIXER MRSA Comment:nasalMRSA Isolation Mcfp 09/03/24 07/16/2024 08/15/2024 09/03/2024 6:[address] C. difficile suspected 07/19/2024 07/19/202407/19 2:34 PM LOZENGE DOUGH MIXER COVID: Suspected 07/23/2024 07/23/2024 07/23/2024 11:28 PM LOZENGE DOUGH MIXER C. difficile suspected 07/23/2024 07/24/202407/24 10:31 AM LOZENGE DOUGH MIXER Norovirus suspected 07/23/2024 07/24/2024 07/24/19 9:37 AM LOZENGE DOUGH MIXER VRE Comment:Contact Precautions (gown and gloves) - not eligible for IP review until 6 months after positive culture - Jerod QURESHI, [place] 10/01/24 07/24/2024 09/20/2024 03/19/2025 7:26 PM C DT COVID: Suspected 08/09/2024 08/09/2024 08/09/2024 9:40 AM LOZENGE DOUGH MIXER Influenza, adult Comment:08/26/2024 IP Review: pt afebrile but on antipyretics. Needs 24 hours off antipyretics and symptoms significantly improved/resolved in order for isolation to be discontinued. Mary Tiwari RN 08/15/2024 08/15/2024 08/29/2024 3:06 AM LOZENGE DOUGH MIXER Coronavirus, droplet 08/15/2024 08/15/202408/29/ 025 3:06 AM LOZENGE DOUGH MIXER C. difficile suspected 09/19/2024 09/19/202409/20 3:05 [...] documented as of this encounter Care Teams Mold Presser Relationship Specialty Start Date End Date Kenton Ricks MD PCP - General 08/14/16 Kenton Ricks MD PCP - General 09/17/08 08/13/16 Pebbles Nelson MD Referring Physician Cardiology 02/07/19 Aylin Russ MD [address] [facility] [address] [place] [address] Referring Physician Pulmonary Disease 02/07/19 Maricruz Ramirez NP [address] [facility] [address] [place] [address] Nurse Practitioner Cardiovascular Disease 09/25/21 Joanne Lopez, [place] Registered Nurse Pulmonary Disease 08/24/22 Leatha Cristina RMA Surgical Prehabilitation and Readiness (SPAR) Coordinator 09/01/22 01/02/23 Ben Chahal MD PhD Medical Oncologist/Personal Lines Underwriter Medical Oncology 10/05/22 Chace Oliva MD [address] [place] [address] Consulting Physician Infectious Diseases 12/22/2204/01 Giovanna Alexis MD [address] [place] [address] Radiation Oncologist Radiation Oncology 03/09/23 Taisha Suarez, paste up copy camera operator Prehabilitation and Readiness (SPAR) Coordinator General Surgery 03/20/23 04/10/23 Sandra Ma MD Consulting Physician Medical Oncology 04/25/23 05/09/23 Abby Higgins MD PhD Medical Oncologist/Personal Lines Underwriter Medical Oncology 05/10/23 Adrian Martinez MD [address] [facility] DIV SURG TRANSPLANT, [address] [place] [address] Surgical Oncologist Surgical Oncology 05/28/23 Vera Pérez PA [address] [place] [phone] [place] [address] Physician Service Director Colon and Rectal Surgery 09/13/23 Jim Frausto MD [address] [facility] [phone] [place] [address] Surgeon Colon and Rectal Surgery 11/21/23 Анна Robert, RN [address] [facility] [address] [place] [address] SHOP Outpatient Pocket Flap Creasing Machine Operator 09/29/24 10/01/24 documented as of this encounter
--- OUTSIDE RECORDS SUMMARY | 2025-06-04 10:37 | XMS_ITS | Encounter Summary ---
Author Organization [facility] Address [address] [place] [address] Care Team Providers Care Director Of Category Management Name Role Phone Kenton Ricks MD Primary Care Provider [phone] Encounter Details Date Type Department Care Team (Late st Contact Info) Description 12/24/2001 Outpatient [facility] [address] [place] [address]. [place] [address] Anika Rowan MD NO ADDRESS ON FILE Social History Tobacco Use Types Packs/Day Years Used Date Smoking Tobacco: Never Assessed Sex and Gender Information Value Date Recorded Sex Assigned at Not on file Legal Sex Male 4:35 AM ENVIRONMENTAL MARKETING REPRESENTATIVE Gender Identity Not on file Sexual Orientation Not on file documented as of this encounter Plan of Treatment Not on file documented as of this encounter Visit Diagnoses Not on filedocumented in this encounter Care Teams Director Of Category Management Relationship Specialty Start Date End Date Kenton Ricks MD [address] [place] [phone] PCP - General Family Practice 11/15/18 documented as of this encounter
--- OUTSIDE RECORDS SUMMARY | 2025-06-04 10:37 | XMS_ITS | Clinical Summary ---
Author Organization [facility] Address [address] [place] [address] Care Team Providers Care Commissary Manager Name Role Phone Kenton Ricks MD Primary Care Provider [phone] Allergies Active Allergy Reactions Criticality Noted Date [...] on file Legal Sex Male 4:35 AM INTERNAL GRINDER SET UP OPERATOR Gender Identity Not on file Sexual [...] (1 - 1-dose 75+ series) 2030 Insurance BLUE ACCESS/TRUE BLUE PPO Care Teams Commissary Manager Relationship Specialty Start Date End Date Kenton Ricks MD [address] [place] [address] PCP - General Family Practice 11/15/18
--- OUTSIDE RECORDS SUMMARY | 2025-06-04 10:38 | XMS_ITS | Encounter Summary ---
Author Organization [facility] [place] Address [address] [place] [address] Phone Care Team Providers Care Locomotive Inspector Name Role Phone Kenton Ricks MD Primary Care Provider + [phone] Kenton Ricks MD Primary Care Provider + [phone] Pebbles Nelson MD Unavailable +[phone] Aylin Russ MD Unavailable +[phone] Maricruz Ramirez NP Unavailable [phone] Joanne Lopez RN Unavailable Padmini Leatha Carter Unavailable Unavailable Ben Chahal MD PhD Unavailable +[phone] Chace Oliva MD Unavailable +[phone] Giovanna Alexis MD Unavailable Taisha Suarez RN Unavailable Unavaila Sandra Aguirre MD Unavailable +[phone] Abby Higgins MD PhD Unavailable + Adrian Martinez MD Unavailable [phone] Vera Pérez Unavailable Jim Frausto MD Unavailable Анна Robert RN Unavailable +[phone] Encounter Details Date Type Department Care Team (Late st Contact Info) Description 11/30/2014 Orders Only [facility] Provider, MD Max [address] [place] [address] Social History Tobacco Use Types Packs/Day Years Used Date Smoking Tobacco: Never Assessed Sex and Gender Information Value Date Recorded Sex Assigned at Not on file Legal Sex Male 12:58 AM MANAGER DISCOVERY Gender Identity Male 11/11/2018 10:31 AM CDT Sexual Orientation Straight 06/09/2019 5: 34 PM MANAGER DISCOVERY documented as of this encounter Plan of [...] Suspected 06/07/2023 06/07/2023 06/07/2023 12:46 PM MANAGER DISCOVERY COVID19 06/07/2023 06/07/2023 06/22/2023 3:06 AM MANAGER DISCOVERY COVID: Recovered Comment:Added based on recent COVID infection. 06/22/2023 06/22/2023 09/20/2023 3:05 AM C DT COVID: Suspected 07/24/2023 07/24/2023 07/24/2023 3:53 PM MANAGER DISCOVERY Diarrhea 07/30/2023 07/30/2023 08/13/2023 3:05 AM MANAGER DISCOVERY COVID: Suspected 08/30/2023 08/30/2023 08/30/2023 4:52 PM MANAGER DISCOVERY COVID: Suspected 10/12/2023 10/12/2023 10/12/2023 7:57 PM CDT Rhino/Enterovirus 10/12/2023 10/12/202310/2510/26/2023 3:05 AM CDT COVID: Suspected 07/10/2024 07/10/2024 07/10/2024 4:53 PM MANAGER DISCOVERY COVID: Suspected Comment:07/16/2024 IP Review: no outstanding test, last RPP negative. Mary Tiwari RN 07/16/2024 07/16/2024 10:51 AM MANAGER DISCOVERY COVID19 Comment:07/16/2024 IP Review: added by RN, RPP negative. Mary Tiwari RN 07/16/2024 07/16/2024 07/16/2024 10:51 AM MANAGER DISCOVERY MRSA Comment:nasalMRSA [facility]olation [facility] 09/03/24 07/16/2024 08/15/2024 09/03/2024 6:[address] C. difficile suspected 07/19/2024 07/19/202407/19 2:34 PM MANAGER DISCOVERY COVID: Suspected 07/23/2024 07/23/2024 07/23/2024 11:28 PM MANAGER DISCOVERY C. difficile suspected 07/23/2024 07/24/202407/24 10:31 AM MANAGER DISCOVERY Norovirus suspected 07/23/2024 07/24/2024 07/24/19 9:37 AM MANAGER DISCOVERY VRE Comment:Contact Precautions (gown and gloves) - not eligible for IP review until 6 months after positive culture - Jerod QURESHI, CONY 10/01/24 07/24/2024 09/20/2024 03/19/2025 7:26 PM C DT COVID: Suspected 08/09/2024 08/09/2024 08/09/2024 9:40 AM MANAGER DISCOVERY Influenza, adult Comment:08/26/2024 IP Review: pt afebrile but on antipyretics. Needs 24 hours off antipyretics and symptoms significantly improved/resolved in order for isolation to be discontinued. Mary Tiwari RN 08/15/2024 08/15/2024 08/29/2024 3:06 AM MANAGER DISCOVERY Coronavirus, droplet 08/15/2024 08/15/202408/29/ 025 3:06 AM MANAGER DISCOVERY C. difficile suspected 09/19/2024 09/19/202409/20 3:05 AM [...] documented as of this encounter Care Teams Locomotive Inspector Relationship Specialty Start Date End Date Kenton Ricks MD PCP - General 08/14/16 Kenton Ricks MD PCP - General 09/17/08 08/13/16 Pebbles Nelson MD Referring Physician Cardiology 02/07/19 Aylin Russ MD [address] [facility] [address] [place] [address] Referring Physician Pulmonary Disease 02/07/19 Maricruz Ramirez NP [address] [facility] [address] [place] [address] Nurse Practitioner Cardiovascular Disease 09/25/21 Joanne Lopez, CONY Registered Nurse Pulmonary Disease 08/24/22 Leatha Cristina RMA Surgical Prehabilitation and Readiness (SPAR) Coordinator 09/01/22 01/02/23 Ben Chahal MD PhD Medical Oncologist/Assembler Body Medical Oncology 10/05/22 Chace Oliva MD [address] [place] [address] Consulting Physician Infectious Diseases 12/22/2204/01 Giovanna Alexis MD [address] [place] [address] Radiation Oncologist Radiation Oncology 03/09/23 Taisha Suarez, brokerage office manager Prehabilitation and Readiness (SPAR) Coordinator General Surgery 03/20/23 04/10/23 Sandra Ma MD Consulting Physician Medical Oncology 04/25/23 05/09/23 Abby Higgins MD PhD Medical Oncologist/Assembler Body Medical Oncology 05/10/23 Adrian Martinez MD [address] [facility] DIV SURG TRANSPLANT, [address] [place] [address] Surgical Oncologist Surgical Oncology 05/28/23 Vera Pérez PA [address] [place] [phone] [place] [address] Physician Cable Armorer Operator Colon and Rectal Surgery 09/13/23 Jim Frausto MD [address] [facility] [phone] [place] [address] Surgeon Colon and Rectal Surgery 11/21/23 Анна Robert, RN [address] [facility] [address] [place] [address] SHOP Outpatient Framing Mill Operator 09/29/24 10/01/24 documented as of this encounter
--- OUTSIDE RECORDS SUMMARY | 2025-06-04 10:38 | XMS_ITS | Encounter Summary ---
Author Organization [facility] Address [address] [place] [address] Phone Care Team Providers Care Supervisor Estimator And Drafter Name Role Phone Kenton Ricks MD Primary Care Provider + [phone] Kenton Ricks MD Primary Care Provider + [phone] Pebbles Nelson MD Unavailable [phone] Aylin Russ MD Unavailable [phone] Maricruz Ramirez NP Unavailable [phone] Joanne Lopez RN Unavailable Padmini Leatha Carter Unavailable Unavailable Ben Chahal MD PhD Unavailable +[phone] Chace Oliva MD Unavailable [phone] Giovanna Alexis MD Unavailable Taisha Suarez RN Unavailable Unavaila Sandra Aguirre MD Unavailable +[phone] Abby Higgins MD PhD Unavailable + Adrian Martinez MD Unavailable Vera Pérez Unavailable [phone] Jim Frausto MD Unavailable [phone] Анна Robert RN Unavailable [phone] Encounter Details Date Type Department Care Team (Late st Contact Info) Description 02/20/2014 Orders Only [facility] Provider, MD Max [address] [place] [address] Social History Tobacco Use Types Packs/Day Years Used Date Smoking Tobacco: Never Assessed Sex and Gender Information Value Date Recorded Sex Assigned at Not on file Legal Sex Male 12:58 AM GAS STATION CLERK Gender Identity Male 11/11/2018 10:31 AM CDT Sexual Orientation Straight 06/09/2019 5: 34 PM GAS STATION CLERK documented as of this encounter Plan [...] COVID: Suspected 06/07/2023 06/07/2023 06/07/2023 12:46 PM GAS STATION CLERK COVID19 06/07/2023 06/07/2023 06/22/2023 3:06 AM GAS STATION CLERK COVID: Recovered Comment:Added based on recent COVID infection. 06/22/2023 06/22/2023 09/20/2023 3:05 AM C DT COVID: Suspected 07/24/2023 07/24/2023 07/24/2023 3:53 PM GAS STATION CLERK Diarrhea 07/30/2023 07/30/2023 08/13/2023 3:05 AM GAS STATION CLERK COVID: Suspected 08/30/2023 08/30/2023 08/30/2023 4:52 PM GAS STATION CLERK COVID: Suspected 10/12/2023 10/12/2023 10/12/2023 7:57 PM CDT Rhino/Enterovirus 10/12/2023 10/12/202310/2510/26/2023 3:05 AM CDT COVID: Suspected 07/10/2024 07/10/2024 07/10/2024 4:53 PM GAS STATION CLERK COVID: Suspected Comment:07/16/2024 IP Review: no outstanding test, last RPP negative. Mary Tiwari RN 07/16/2024 07/16/2024 10:51 AM GAS STATION CLERK COVID19 Comment:07/16/2024 IP Review: added by RN, RPP negative. Mary Tiwari RN 07/16/2024 07/16/2024 07/16/2024 10:51 AM GAS STATION CLERK MRSA Comment:nasalMRSA Isolation [facility] 09/03/24 07/16/2024 08/15/2024 09/03/2024 6:[address] C. difficile suspected 07/19/2024 07/19/202407/19 2:34 PM GAS STATION CLERK COVID: Suspected 07/23/2024 07/23/2024 07/23/2024 11:28 PM GAS STATION CLERK C. difficile suspected 07/23/2024 07/24/202407/24 10:31 AM GAS STATION CLERK Norovirus suspected 07/23/2024 07/24/2024 07/24/19 9:37 AM GAS STATION CLERK VRE Comment:Contact Precautions (gown and gloves) - not eligible for IP review until 6 months after positive culture - Jerod QURESHI, CONY 10/01/24 07/24/2024 09/20/2024 03/19/2025 7:26 PM C DT COVID: Suspected 08/09/2024 08/09/2024 08/09/2024 9:40 AM GAS STATION CLERK Influenza, adult Comment:08/26/2024 IP Review: pt afebrile but on antipyretics. Needs 24 hours off antipyretics and symptoms significantly improved/resolved in order for isolation to be discontinued. Mary Tiwari RN 08/15/2024 08/15/2024 08/29/2024 3:06 AM GAS STATION CLERK Coronavirus, droplet 08/15/2024 08/15/202408/29/ 025 3:06 AM GAS STATION CLERK C. difficile suspected 09/19/2024 09/19/202409/20 3:05 [...] as of this encounter Care Teams Supervisor Estimator And Drafter Relationship Specialty Start Date End Date Kenton Ricks MD PCP - General 08/14/16 Kenton Ricks MD PCP - General 09/17/08 08/13/16 Pebbles Nelson MD Referring Physician Cardiology 02/07/19 Aylin Russ MD [address] [facility] [address] [place] [address] Referring Physician Pulmonary Disease 02/07/19 Maricruz Ramirez NP [address] [facility] [address] [place] [address] Nurse Practitioner Cardiovascular Disease 09/25/21 Joanne Lopez, CONY Registered Nurse Pulmonary Disease 08/24/22 Leatha Cristina RMA Surgical Prehabilitation and Readiness (SPAR) Coordinator 09/01/22 01/02/23 Ben Chahal MD PhD Medical Oncologist/Huc Medical Oncology 10/05/22 Chace Oliva MD [address] [place] [address] Consulting Physician Infectious Diseases 12/22/2204/01 Giovanna Alexis MD [address] [place] [address] Radiation Oncologist Radiation Oncology 03/09/23 Taisha Suarez, box spinner Prehabilitation and Readiness (SPAR) Coordinator General Surgery 03/20/23 04/10/23 Sandra Ma MD Consulting Physician Medical Oncology 04/25/23 05/09/23 Abby Higgins MD PhD Medical Oncologist/Huc Medical Oncology 05/10/23 Adrian Martinez MD [address] [facility] DIV SURG TRANSPLANT, [address] [place] [address] Surgical Oncologist Surgical Oncology 05/28/23 Vera Pérez PA [address] [place] [phone] [place] [address] Physician Precinct Police Captain Colon and Rectal Surgery 09/13/23 Jim Frausto MD [address] [facility] [phone] [place] [address] Surgeon Colon and Rectal Surgery 11/21/23 Анна Robert, RN [address] [facility] [address] [place] [address] SHOP Outpatient Program Facilitator 09/29/24 10/01/24 documented as of this encounter
--- OUTSIDE RECORDS SUMMARY | 2025-06-04 10:38 | XMS_ITS | Encounter Summary ---
Author Organization [facility] Address [address] [place] [address] Phone Care Team Providers Care Director Talent Name Role Phone Kenton Ricks MD Primary Care Provider + [phone] Kenton Ricks MD Primary Care Provider + [phone] Pebbles Nelson MD Unavailable [phone] Aylin Russ MD Unavailable +[phone] Maricruz Ramirez NP Unavailable [phone] Joanne Lopez RN Unavailable Padmini Leatha Carter Unavailable Unavailable Ben Chahal MD PhD Unavailable +[phone] Chace Oliva MD Unavailable +[phone] Giovnana Alexis MD Unavailable Taisha Suarez RN Unavailable Unavaila Sandra Aguirre MD Unavailable +[phone] Abby Higgins MD PhD Unavailable + Adrian Martinez MD Unavailable Vera Pérez Unavailable Jim Frausto MD Unavailable Анна Robert RN Unavailable [phone] Encounter Details Date Type Department Care Team (Late st Contact Info) Description 02/25/2014 Orders Only [facility] Provider, MD Max [address] [place] [address] Social History Tobacco Use Types Packs/Day Years Used Date Smoking Tobacco: Never Assessed Sex and Gender Information Value Date Recorded Sex Assigned at Not on file Legal Sex Male 12:58 AM PROGRAM SPECIALIST Gender Identity Male 11/11/2018 10:31 AM CDT Sexual Orientation Straight 06/09/2019 5: 34 PM PROGRAM SPECIALIST documented as of this encounter Plan [...] COVID: Suspected 06/07/2023 06/07/2023 06/07/2023 12:46 PM PROGRAM SPECIALIST COVID19 06/07/2023 06/07/2023 06/22/2023 3:06 AM PROGRAM SPECIALIST COVID: Recovered Comment:Added based on recent COVID infection. 06/22/2023 06/22/2023 09/20/2023 3:05 AM C DT COVID: Suspected 07/24/2023 07/24/2023 07/24/2023 3:53 PM PROGRAM SPECIALIST Diarrhea 07/30/2023 07/30/2023 08/13/2023 3:05 AM PROGRAM SPECIALIST COVID: Suspected 08/30/2023 08/30/2023 08/30/2023 4:52 PM PROGRAM SPECIALIST COVID: Suspected 10/12/2023 10/12/2023 10/12/2023 7:57 PM CDT Rhino/Enterovirus 10/12/2023 10/12/202310/2510/26/2023 3:05 AM CDT COVID: Suspected 07/10/2024 07/10/2024 07/10/2024 4:53 PM PROGRAM SPECIALIST COVID: Suspected Comment:07/16/2024 IP Review: no outstanding test, last RPP negative. Mary Tiwari RN 07/16/2024 07/16/2024 10:51 AM PROGRAM SPECIALIST COVID19 Comment:07/16/2024 IP Review: added by RN, RPP negative. Mary Tiwari RN 07/16/2024 07/16/2024 07/16/2024 10:51 AM PROGRAM SPECIALIST MRSA Comment:nasalMRSA Isolation Assisted 09/03/24 07/16/2024 08/15/2024 09/03/2024 6:[address] C. difficile suspected 07/19/2024 07/19/202407/19 2:34 PM PROGRAM SPECIALIST COVID: Suspected 07/23/2024 07/23/2024 07/23/2024 11:28 PM PROGRAM SPECIALIST C. difficile suspected 07/23/2024 07/24/202407/24 10:31 AM PROGRAM SPECIALIST Norovirus suspected 07/23/2024 07/24/2024 07/24/19 9:37 AM PROGRAM SPECIALIST VRE Comment:Contact Precautions (gown and gloves) - not eligible for IP review until 6 months after positive culture - Jerod QURESHI, CONY 10/01/24 07/24/2024 09/20/2024 03/19/2025 7:26 PM C DT COVID: Suspected 08/09/2024 08/09/2024 08/09/2024 9:40 AM PROGRAM SPECIALIST Influenza, adult Comment:08/26/2024 IP Review: pt afebrile but on antipyretics. Needs 24 hours off antipyretics and symptoms significantly improved/resolved in order for isolation to be discontinued. Mary Tiwari RN 08/15/2024 08/15/2024 08/29/2024 3:06 AM PROGRAM SPECIALIST Coronavirus, droplet 08/15/2024 08/15/202408/29/ 025 3:06 AM PROGRAM SPECIALIST C. difficile suspected 09/19/2024 09/19/202409/20 3:05 [...] as of this encounter Care Teams Director Talent Relationship Specialty Start Date End Date Kenton Ricks MD PCP - General 08/14/16 Kenton Ricks MD PCP - General 09/17/08 08/13/16 Pebbles Nelson MD Referring Physician Cardiology 02/07/19 Aylin Russ MD [address] [facility] [address] [place] [address] Referring Physician Pulmonary Disease 02/07/19 Maricruz Ramirez NP [address] [facility] [address] [place] [address] Nurse Practitioner Cardiovascular Disease 09/25/21 Joanne Lopez, CONY Registered Nurse Pulmonary Disease 08/24/22 Leatha Cristina RMA Surgical Prehabilitation and Readiness (SPAR) Coordinator 09/01/22 01/02/23 Ben Chahal MD PhD Medical Oncologist/Waste Treatment Operator Medical Oncology 10/05/22 Chace Oliva MD [address] [place] [address] Consulting Physician Infectious Diseases 12/22/2204/01 Giovanna Alexis MD [address] [place] [address] Radiation Oncologist Radiation Oncology 03/09/23 Taisha Suarez, physician advisor Prehabilitation and Readiness (SPAR) Coordinator General Surgery 03/20/23 04/10/23 Sandra Ma MD Consulting Physician Medical Oncology 04/25/23 05/09/23 Abby Higgins MD PhD Medical Oncologist/Waste Treatment Operator Medical Oncology 05/10/23 Adrian Martinez MD [address] [facility] DIV SURG TRANSPLANT, [address] [place] [address] Surgical Oncologist Surgical Oncology 05/28/23 Vera Pérez PA [address] [place] [id number] [place] [address] Physician Batch Plant Operator Colon and Rectal Surgery 09/13/23 Jim Frausto MD [address] [facility] [phone] [place] [address] Surgeon Colon and Rectal Surgery 11/21/23 Анна Robert, RN [address] [facility] [address] [place] [address] SHOP Outpatient Beer Still Runner Compounder 09/29/24 10/01/24 documented as of this encounter
--- OUTSIDE RECORDS SUMMARY | 2025-06-04 10:38 | XMS_ITS | Clinical Summary ---
Author Organization [facility] Address [address] [place] [address] Care Team Providers Care Fast Food Crew Lead Name Role Phone Kenton Ricks MD Primary Care Provider [phone] Source Comments [facility]non-owned Affiliates and Associated Physician Practices is amultiple site organization consisting of ambulatory clinics and hospital sitesin [place], [place], [place] and [place]. This disclosure is being madepursuant to the Care Everywhere program and may not contain all information available regarding this patient. Last updated 18.[facility] Medications * Be aware that medications may [...] on file Legal Sex Male 6:18 AM NARROW FABRIC CALENDERER Gender Identity Not on file Sexual Orientation Not on file Last Filed Vital Signs Vital Sign Reading Time Taken Comments Blood Pressure 126/67 07/06/2017 11:17 AM NARROW FABRIC CALENDERER Pulse 60 07/06/2017 11:17 AM NARROW FABRIC CALENDERER Temperature 36.4 C (97.5 F) 07/06/2017 11:17 AM NARROW FABRIC CALENDERER Respiratory Rate 16 06/29/2017 12:33 PM NARROW FABRIC CALENDERER Oxygen Saturation 99% 07/06/2017 11:17 AM NARROW FABRIC CALENDERER Inhaled Oxygen Concentration - - Weight 115.7 kg (255 lb) 07/06/2017 11:17 AM NARROW FABRIC CALENDERER Height 175.3 cm (5' 9) 07/06/2017 11:17 AM NARROW FABRIC CALENDERER Body Mass Index 37.66 07/06/2017 11:17 AM NARROW FABRIC CALENDERER Plan of Treatment Health Maintenance Due Date [...] age to complete this topic Care Teams Fast Food Crew Lead Relationship Specialty Start Date End Date Kenton Ricks MD [address] [place] [address] PCP - General Family Medicine 08/20/15
--- OUTSIDE RECORDS SUMMARY | 2025-06-04 10:38 | XMS_ITS | Encounter Summary ---
Author Organization [facility] Address [address] [place] [address] Phone Care Team Providers Care Perforator Operator Name Role Phone Kenton Ricks MD Primary Care Provider + [phone] Kenton Ricks MD Primary Care Provider + [phone] Pebbles Nelson MD Unavailable [phone] Aylin Russ MD Unavailable [phone] Maricruz Ramirez NP Unavailable [phone] Joanne Lopez RN Unavailable Padmini Leatha Carter Unavailable Unavailable Ben Chahal MD PhD Unavailable [phone] Chace Oliva MD Unavailable +[phone] Giovanna Alexis MD Unavailable Taisha Suarez RN Unavailable Unavaila Sandra Aguirre MD Unavailable +[phone] Abby Higgins MD PhD Unavailable + Adrian Martinez MD Unavailable [phone] Vera Pérez Unavailable Jim Frausto MD Unavailable [phone] Анна Robert RN Unavailable [phone] Encounter Details Date Type Department Care Team (Late st Contact Info) Description 06/02/2014 Orders Only [facility] Provider, MD Max [address] [place] [address] Social History Tobacco Use Types Packs/Day Years Used Date Smoking Tobacco: Never Assessed Sex and Gender Information Value Date Recorded Sex Assigned at Not on file Legal Sex Male 12:58 AM FIRER PORTABLE BOILER Gender Identity Male 11/11/2018 10:31 AM CDT Sexual Orientation Straight 06/09/2019 5: 34 PM FIRER PORTABLE BOILER documented as of this encounter Plan of [...] Suspected 06/07/2023 06/07/2023 06/07/2023 12:46 PM FIRER PORTABLE BOILER COVID19 06/07/2023 06/07/2023 06/22/2023 3:06 AM FIRER PORTABLE BOILER COVID: Recovered Comment:Added based on recent COVID infection. 06/22/2023 06/22/2023 09/20/2023 3:05 AM C DT COVID: Suspected 07/24/2023 07/24/2023 07/24/2023 3:53 PM FIRER PORTABLE BOILER Diarrhea 07/30/2023 07/30/2023 08/13/2023 3:05 AM FIRER PORTABLE BOILER COVID: Suspected 08/30/2023 08/30/2023 08/30/2023 4:52 PM FIRER PORTABLE BOILER COVID: Suspected 10/12/2023 10/12/2023 10/12/2023 7:57 PM CDT Rhino/Enterovirus 10/12/2023 10/12/202310/2510/26/2023 3:05 AM CDT COVID: Suspected 07/10/2024 07/10/2024 07/10/2024 4:53 PM FIRER PORTABLE BOILER COVID: Suspected Comment:07/16/2024 IP Review: no outstanding test, last RPP negative. Mary Tiwari RN 07/16/2024 07/16/2024 10:51 AM FIRER PORTABLE BOILER COVID19 Comment:07/16/2024 IP Review: added by RN, RPP negative. Mary Tiwari RN 07/16/2024 07/16/2024 07/16/2024 10:51 AM FIRER PORTABLE BOILER MRSA Comment:nasalMRSA Isolation Assisted 09/03/24 07/16/2024 08/15/2024 09/03/2024 6:[address] C. difficile suspected 07/19/2024 07/19/202407/19 2:34 PM FIRER PORTABLE BOILER COVID: Suspected 07/23/2024 07/23/2024 07/23/2024 11:28 PM FIRER PORTABLE BOILER C. difficile suspected 07/23/2024 07/24/202407/24 10:31 AM FIRER PORTABLE BOILER Norovirus suspected 07/23/2024 07/24/2024 07/24/19 9:37 AM FIRER PORTABLE BOILER VRE Comment:Contact Precautions (gown and gloves) - not eligible for IP review until 6 months after positive culture - Jerod QURESHI, CONY 10/01/24 07/24/2024 09/20/2024 03/19/2025 7:26 PM C DT COVID: Suspected 08/09/2024 08/09/2024 08/09/2024 9:40 AM FIRER PORTABLE BOILER Influenza, adult Comment:08/26/2024 IP Review: pt afebrile but on antipyretics. Needs 24 hours off antipyretics and symptoms significantly improved/resolved in order for isolation to be discontinued. Mary Tiwari RN 08/15/2024 08/15/2024 08/29/2024 3:06 AM FIRER PORTABLE BOILER Coronavirus, droplet 08/15/2024 08/15/202408/29/ 025 3:06 AM FIRER PORTABLE BOILER C. difficile suspected 09/19/2024 09/19/202409/20 3:05 AM [...] documented as of this encounter Care Teams Perforator Operator Relationship Specialty Start Date End Date Kenton Ricks MD PCP - General 08/14/16 Kenton Ricks MD PCP - General 09/17/08 08/13/16 Pebbles Nelson MD Referring Physician Cardiology 02/07/19 Aylin Russ MD [address] [facility] [address] [place] [address] Referring Physician Pulmonary Disease 02/07/19 Maricruz Ramirez NP [address] [facility] [address] [place] [address] Nurse Practitioner Cardiovascular Disease 09/25/21 Joanne Lopez, CONY Registered Nurse Pulmonary Disease 08/24/22 Leatha Cristina RMA Surgical Prehabilitation and Readiness (SPAR) Coordinator 09/01/22 01/02/23 Ben Chahal MD PhD Medical Oncologist/Senior Front End Engineer Medical Oncology 10/05/22 Chace Oliva MD [address] [place] [address] Consulting Physician Infectious Diseases 12/22/2204/01 Giovanna Alexis MD [address] [place] [address] Radiation Oncologist Radiation Oncology 03/09/23 Taisha Suarez, printing grey cloth tender Prehabilitation and Readiness (SPAR) Coordinator General Surgery 03/20/23 04/10/23 Sandra Ma MD Consulting Physician Medical Oncology 04/25/23 05/09/23 Abby Higgins MD PhD Medical Oncologist/Senior Front End Engineer Medical Oncology 05/10/23 Adrian Martinez MD [address] [facility] DIV SURG TRANSPLANT, [address] [place] [address] Surgical Oncologist Surgical Oncology 05/28/23 Vera Pérez PA [address] [place] [phone] [place] [address] Physician Dealer Accounts Investigator Colon and Rectal Surgery 09/13/23 Jim Frausto MD [address] [facility] [phone] [place] [address] Surgeon Colon and Rectal Surgery 11/21/23 Анна Robert, RN [address] [facility] [address] [place] [address] SHOP Outpatient Business Services Vice President 09/29/24 10/01/24 documented as of this encounter
--- OUTSIDE RECORDS SUMMARY | 2025-06-04 10:38 | XMS_ITS | Encounter Summary ---
Author Organization [facility] Address [address] [place] [address] Phone Care Team Providers Care Country Director Name Role Phone Kenton Ricks MD Primary Care Provider + [phone] Pebbles Nelson MD Unavailable +[phone] Aylin Russ MD Unavailable +[phone] Maricruz Ramirez NP Unavailable [phone] Joanne Lopez RN Unavailable Padmini Leatha Carter Unavailable Unavailable Ben Chahal MD PhD Unavailable +[phone] Chace Oliva MD Unavailable [phone] Giovanna Alexis MD Unavailable Taisha Suarez RN Unavailable Unavaila Sandra Aguirre MD Unavailable [phone] Abby Higgins MD PhD Unavailable + Adrian Martinez MD Unavailable [phone] Vera Pérez Unavailable [phone] Jim Frausto MD Unavailable [phone] Анна Robert RN Unavailable [phone] Encounter Details Date Type Department Care Team [...] often do you attend [facility] or mandaeism services? More than 4 times per year [...] place to sleep or slept in a longterm (including now)? No 10/17/2021 Sex and Gender Information Value Date Recorded Sex Assigned at Not on file Legal Sex Male 12:58 AM SKOOG PATCHING MACHINE OPERATOR Gender Identity Male 11/11/2018 10:31 AM CDT Sexual Orientation Straight 06/09/2019 5: 34 PM SKOOG PATCHING MACHINE OPERATOR documented as of this encounter [...] COVID: Suspected 06/07/2023 06/07/2023 06/07/2023 12:46 PM SKOOG PATCHING MACHINE OPERATOR COVID19 06/07/2023 06/07/2023 06/22/2023 3:06 AM SKOOG PATCHING MACHINE OPERATOR COVID: Recovered Comment:Added based on recent COVID infection. 06/22/2023 06/22/2023 09/20/2023 3:05 AM C DT COVID: Suspected 07/24/2023 07/24/2023 07/24/2023 3:53 PM SKOOG PATCHING MACHINE OPERATOR Diarrhea 07/30/2023 07/30/2023 08/13/2023 3:05 AM SKOOG PATCHING MACHINE OPERATOR COVID: Suspected 08/30/2023 08/30/2023 08/30/2023 4:52 PM SKOOG PATCHING MACHINE OPERATOR COVID: Suspected 10/12/2023 10/12/2023 10/12/2023 7:57 PM CDT Rhino/Enterovirus 10/12/2023 10/12/2023 10/26/2023 3:05 AM CDT COVID: Suspected 07/10/2024 07/10/2024 07/10/2024 4:53 PM SKOOG PATCHING MACHINE OPERATOR COVID: Suspected Comment:07/16/2024 IP Review: no outstanding test, last RPP negative. Mary Tiwari RN 07/16/2024 07/16/2024 10:51 AM SKOOG PATCHING MACHINE OPERATOR COVID19 Comment:07/16/2024 IP Review: added by RNCLAUDIO negative. Mary Tiwari RN 07/16/2024 07/16/2024 07/16/2024 10:51 AM SKOOG PATCHING MACHINE OPERATOR MRSA Comment:nasalMRSA Isolation Group Home 09/03/24 07/16/2024 08/15/2024 09/03/2024 6:[address] C. difficile suspected 07/19/2024 07/19/202407/19 2:34 PM SKOOG PATCHING MACHINE OPERATOR COVID: Suspected 07/23/2024 07/23/2024 07/23/2024 11:28 PM SKOOG PATCHING MACHINE OPERATOR C. difficile suspected 07/23/2024 07/24/202407/24 10:31 AM SKOOG PATCHING MACHINE OPERATOR Norovirus suspected 07/23/2024 07/24/2024 07/24/19 9:37 AM SKOOG PATCHING MACHINE OPERATOR VRE Comment:Contact Precautions (gown and gloves) - not eligible for IP review until 6 months after positive culture - Jerod QURESHI, CONY 10/01/24 07/24/2024 09/20/2024 03/19/2025 7:26 PM C DT COVID: Suspected 08/09/2024 08/09/2024 08/09/2024 9:40 AM SKOOG PATCHING MACHINE OPERATOR Influenza, adult Comment:08/26/2024 IP Review: pt afebrile but on antipyretics. Needs 24 hours off antipyretics and symptoms significantly improved/resolved in order for isolation to be discontinued. Mary Tiwari RN 08/15/2024 08/15/2024 08/29/2024 3:06 AM SKOOG PATCHING MACHINE OPERATOR Coronavirus, droplet 08/15/2024 08/15/202408/29/ 025 3:06 AM SKOOG PATCHING MACHINE OPERATOR C. difficile suspected 09/19/2024 09/19/202409/20 [...] documented as of this encounter Care Teams Country Director Relationship Specialty Start Date End Date Kenton Ricks MD PCP - General 08/14/16 Pebbles Nelson MD Referring Physician Cardiology 02/07/19 Aylin Russ MD [address] [facility] [address] [place] [address] Referring Physician Pulmonary Disease 02/07/19 Maricruz Ramirez WATER QUALITY ANALYST [address] [place] [address] Nurse Practitioner Cardiovascular Disease 09/25/21 Joanne Lopez, RN Registered Nurse Pulmonary Disease 08/24/22 Leatha Cristina RMA Surgical Prehabilitation and Readiness (SPAR) Coordinator 09/01/22 01/02/23 Ben Chahal MD PhD Medical Oncologist/Lock Assembler Medical Oncology 10/05/22 Chace Oliva MD [address] [place] [address] Consulting Physician Infectious Diseases 12/22/2204/01 Giovanna Alexis MD [address] [place] [address] Radiation Oncologist Radiation Oncology 03/09/23 Taisha Suarez, customer support engineer Prehabilitation and Readiness (SPAR) Coordinator General Surgery 03/20/23 04/10/23 Sandra Ma MD Consulting Physician Medical Oncology 04/25/23 05/09/23 Abby Higgins MD PhD Medical Oncologist/Lock Assembler Medical Oncology 05/10/23 Adrian Martinez MD [address] [facility] DIV SURG TRANSPLANT, [address] [place] [address] Surgical Oncologist Surgical Oncology 05/28/23 Vera Pérez PA [address] [place] [id number] [place] [address] Physician Electronics Supervisor Colon and Rectal Surgery 09/13/23 Jim Frausto MD [address] [facility] [phone] [place], [place] [id number] Surgeon Colon and Rectal Surgery 11/21/23 Анна Robert, RN [address] [facility] [address] [place], [place] [id number] SHOP Outpatient Senior Hr Generalist 09/29/24 10/01/24 documented as of this encounter
--- OUTSIDE RECORDS SUMMARY | 2025-06-04 10:38 | XMS_ITS | Encounter Summary ---
Author Organization [facility] Address [address] [place] [address] Phone Care Team Providers Care Boomswing Operator Name Role Phone Kenton Ricks MD Primary Care Provider + [phone] Kenton Ricks MD Primary Care Provider + [phone] Pebbles Nelson MD Unavailable [phone] Aylin Russ MD Unavailable [phone] Maricruz Ramirez NP Unavailable [phone] Joanne Lopez RN Unavailable Padmini Leatha Carter Unavailable Unavailable Ben Chahal MD PhD Unavailable [phone] Chace Oliva MD Unavailable +[phone] Giovanna Alexis MD Unavailable Taisha Suarez RN Unavailable Unavaila Sandra Aguirre MD Unavailable +[phone] Abby Higgins MD PhD Unavailable + Adrina Martinez MD Unavailable [phone] Vera Pérez Unavailable Jim Frausto MD Unavailable Анна Robert RN Unavailable [phone] Encounter Details Date Type Department Care Team (Late st Contact Info) Description 08/18/2014 Orders Only [facility] Provider, MD Max [address] [place] [address] Social History Tobacco Use Types Packs/Day Years Used Date Smoking Tobacco: Never Assessed Sex and Gender Information Value Date Recorded Sex Assigned at Not on file Legal Sex Male 12:58 AM CREAM RIPENER Gender Identity Male 11/11/2018 10:31 AM CDT Sexual Orientation Straight 06/09/2019 5: 34 PM CREAM RIPENER documented as of this encounter Plan of [...] COVID: Suspected 06/07/2023 06/07/2023 06/07/2023 12:46 PM CREAM RIPENER COVID19 06/07/2023 06/07/2023 06/22/2023 3:06 AM CREAM RIPENER COVID: Recovered Comment:Added based on recent COVID infection. 06/22/2023 06/22/2023 09/20/2023 3:05 AM C DT COVID: Suspected 07/24/2023 07/24/2023 07/24/2023 3:53 PM CREAM RIPENER Diarrhea 07/30/2023 07/30/2023 08/13/2023 3:05 AM CREAM RIPENER COVID: Suspected 08/30/2023 08/30/2023 08/30/2023 4:52 PM CREAM RIPENER COVID: Suspected 10/12/2023 10/12/2023 10/12/2023 7:57 PM CDT Rhino/Enterovirus 10/12/2023 10/12/202310/2510/26/2023 3:05 AM CDT COVID: Suspected 07/10/2024 07/10/2024 07/10/2024 4:53 PM CREAM RIPENER COVID: Suspected Comment:07/16/2024 IP Review: no outstanding test, last RPP negative. aMry Tiwari RN 07/16/2024 07/16/2024 10:51 AM CREAM RIPENER COVID19 Comment:07/16/2024 IP Review: added by RN, RPP negative. Mary Tiwari RN 07/16/2024 07/16/2024 07/16/2024 10:51 AM CREAM RIPENER MRSA Comment:nasalMRSA Isolation Half-Way 09/03/24 07/16/2024 08/15/2024 09/03/2024 6:[address] C. difficile suspected 07/19/2024 07/19/202407/19 2:34 PM CREAM RIPENER COVID: Suspected 07/23/2024 07/23/2024 07/23/2024 11:28 PM CREAM RIPENER C. difficile suspected 07/23/2024 07/24/202407/24 10:31 AM CREAM RIPENER Norovirus suspected 07/23/2024 07/24/2024 07/24/19 9:37 AM CREAM RIPENER VRE Comment:Contact Precautions (gown and gloves) - not eligible for IP review until 6 months after positive culture - Jerod QURESHI, CONY 10/01/24 07/24/2024 09/20/2024 03/19/2025 7:26 PM C DT COVID: Suspected 08/09/2024 08/09/2024 08/09/2024 9:40 AM CREAM RIPENER Influenza, adult Comment:08/26/2024 IP Review: pt afebrile but on antipyretics. Needs 24 hours off antipyretics and symptoms significantly improved/resolved in order for isolation to be discontinued. Mary Tiwari RN 08/15/2024 08/15/2024 08/29/2024 3:06 AM CREAM RIPENER Coronavirus, droplet 08/15/2024 08/15/202408/29/ 025 3:06 AM CREAM RIPENER C. difficile suspected 09/19/2024 09/19/202409/20 3:05 AM [...] documented as of this encounter Care Teams Boomswing Operator Relationship Specialty Start Date End Date Kenton Ricks MD PCP - General 08/14/16 Kenton Ricks MD PCP - General 09/17/08 08/13/16 Pebbles Nelson MD Referring Physician Cardiology 02/07/19 Aylin Russ MD [address] [facility] [address] [place] [address] Referring Physician Pulmonary Disease 02/07/19 Maricruz Ramirez NP [address] [facility] [address] [place] [address] Nurse Practitioner Cardiovascular Disease 09/25/21 Joanne Lopez, CONY Registered Nurse Pulmonary Disease 08/24/22 Leatha Cristina RMA Surgical Prehabilitation and Readiness (SPAR) Coordinator 09/01/22 01/02/23 Ben Chahal MD PhD Medical Oncologist/Ophthalmic Surgeon Medical Oncology 10/05/22 Chace Oliva MD [address] [place] [address] Consulting Physician Infectious Diseases 12/22/2204/01 Giovanna Alexis MD [address] [place] [address] Radiation Oncologist Radiation Oncology 03/09/23 Taisha Suarez, inspector receiving Prehabilitation and Readiness (SPAR) Coordinator General Surgery 03/20/23 04/10/23 Sandra Ma MD Consulting Physician Medical Oncology 04/25/23 05/09/23 Abby Higgins MD PhD Medical Oncologist/Ophthalmic Surgeon Medical Oncology 05/10/23 Adrian Martinez MD [address] [facility] DIV SURG TRANSPLANT, [address] [place] [address] Surgical Oncologist Surgical Oncology 05/28/23 Vera Pérez PA [address] MD [id number] [place] [address] Physician Product Marketing Specialist Colon and Rectal Surgery 09/13/23 Jim Frausto MD [address] [facility] [phone] [place] [address] Surgeon Colon and Rectal Surgery 11/21/23 Анна Robert, RN [address] [facility] [address] [place] [address] SHOP Outpatient Bi Developer 09/29/24 10/01/24 documented as of this encounter
--- OUTSIDE RECORDS SUMMARY | 2025-06-04 10:38 | XMS_ITS | Encounter Summary ---
Author Organization [facility] Address [address] [place] [address] Phone Care Team Providers Care Stock Order Lister Name Role Phone Kenton Ricks MD Primary Care Provider + [phone] Pebbles Nelson MD Unavailable [phone] Aylin Russ MD Unavailable [phone] Maricruz Ramirez NP Unavailable [phone] Joanne Lopez RN Unavailable Padmini Leatha Carter Unavailable Unavailable Ben Chahal MD PhD Unavailable +[phone] Chace Oliva MD Unavailable [phone] Giovanna Alexis MD Unavailable Taisha Suarez RN Unavailable Unavaila Sandra Aguirre MD Unavailable +[phone] Abby Higgins MD PhD Unavailable + Adrian Martinez MD Unavailable [phone] Vera Pérez Unavailable [phone] Jim Frausto MD Unavailable Анна Robert RN Unavailable [phone] Encounter Details Date Type Department Care Team [...] 10/17/2021 How often do you attend [facility] or hoahaoism services? More than 4 times per year 10/17/2021 Do you belong to any clubs o r organizations such as bahai groups, unions, fraternal or athletic groups, or [...] on file Legal Sex Male 12:58 AM WRAPPER OPERATOR Gender Identity Male 11/11/2018 10:31 AM CDT Sexual Orientation Straight 06/09/2019 5: 34 PM WRAPPER OPERATOR documented as of this encounter Plan [...] COVID: Suspected 06/07/2023 06/07/2023 06/07/2023 12:46 PM WRAPPER OPERATOR COVID19 06/07/2023 06/07/2023 06/22/2023 3:06 AM WRAPPER OPERATOR COVID: Recovered Comment:Added based on recent COVID infection. 06/22/2023 06/22/2023 09/20/2023 3:05 AM C DT COVID: Suspected 07/24/2023 07/24/2023 07/24/2023 3:53 PM WRAPPER OPERATOR Diarrhea 07/30/2023 07/30/2023 08/13/2023 3:05 AM WRAPPER OPERATOR COVID: Suspected 08/30/2023 08/30/2023 08/30/2023 4:52 PM WRAPPER OPERATOR COVID: Suspected 10/12/2023 10/12/2023 10/12/2023 7:57 PM CDT Rhino/Enterovirus 10/12/2023 10/12/2023 10/26/2023 3:05 AM CDT COVID: Suspected 07/10/2024 07/10/2024 07/10/2024 4:53 PM WRAPPER OPERATOR COVID: Suspected Comment:07/16/2024 IP Review: no outstanding test, last RPP negative. Mary Tiwari, CONY 07/16/2024 07/16/2024 10:51 AM WRAPPER OPERATOR COVID19 Comment:07/16/2024 IP Review: added by CLAUDIO DONNELLY negative. Mary Tiwari RN 07/16/2024 07/16/2024 07/16/2024 10:51 AM WRAPPER OPERATOR MRSA Comment:nasalMRSA Isolation Care Home 09/03/24 07/16/2024 08/15/2024 09/03/2024 6:[address] C. difficile suspected 07/19/2024 07/19/202407/19 2:34 PM WRAPPER OPERATOR COVID: Suspected 07/23/2024 07/23/2024 07/23/2024 11:28 PM WRAPPER OPERATOR C. difficile suspected 07/23/2024 07/24/202407/24 10:31 AM WRAPPER OPERATOR Norovirus suspected 07/23/2024 07/24/2024 07/24/19 9:37 AM WRAPPER OPERATOR VRE Comment:Contact Precautions (gown and gloves) - not eligible for IP review until 6 months after positive culture - Jerod QURESHI, CONY 10/01/24 07/24/2024 09/20/2024 03/19/2025 7:26 PM C DT COVID: Suspected 08/09/2024 08/09/2024 08/09/2024 9:40 AM WRAPPER OPERATOR Influenza, adult Comment:08/26/2024 IP Review: pt afebrile but on antipyretics. Needs 24 hours off antipyretics and symptoms significantly improved/resolved in order for isolation to be discontinued. Mary Tiwari RN 08/15/2024 08/15/2024 08/29/2024 3:06 AM WRAPPER OPERATOR Coronavirus, droplet 08/15/2024 08/15/2024 025 3:06 AM WRAPPER OPERATOR C. difficile suspected 09/19/2024 09/19/202409/20 3:05 [...] documented as of this encounter Care Teams Stock Order Lister Relationship Specialty Start Date End Date Kenton Ricks MD PCP - General 08/14/16 Pebbles Nelson MD Referring Physician Cardiology 02/07/19 Aylin Russ MD [address] [facility] [address] [place] [address] Referring Physician Pulmonary Disease 02/07/19 Maricruz Ramirez BLIND ESCORT [address] [place] [address] Nurse Practitioner Cardiovascular Disease 09/25/21 Joanne Lopez, CONY Registered Nurse Pulmonary Disease 08/24/22 Leatha Cristina RMA Surgical Prehabilitation and Readiness (SPAR) Coordinator 09/01/22 01/02/23 Ben Chahal MD PhD Medical Oncologist/Bus Aide Medical Oncology 10/05/22 Chace Oliva MD [address] [facility] [address] [place] [address] Consulting Physician Infectious Diseases 12/22/2204/01 Giovanna Alexis MD [address] [facility] [address] [place] [address] Radiation Oncologist Radiation Oncology 03/09/23 Taisha Suarez, briar cutter Prehabilitation and Readiness (SPAR) Coordinator General Surgery 03/20/23 04/10/23 Sandra Ma MD Consulting Physician Medical Oncology 04/25/23 05/09/23 Abby Higgins MD PhD Medical Oncologist/Bus Aide Medical Oncology 05/10/23 Adrian Martinez MD [address] [facility] DIV SURG TRANSPLANT, [facility] [address] [place] [address] Surgical Oncologist Surgical Oncology 05/28/23 Vera Pérez PA [address] [place] [phone] [place] [address] Physician Dynamometer Tester Engine Colon and Rectal Surgery 09/13/23 Jim Frausto MD [address] [facility] [phone] [place], [place] [id number] Surgeon Colon and Rectal Surgery 11/21/23 Анна Robert, RN 4590 [facility] [address] [place], [place] [id number] SHOP Outpatient Glass Cutting Machine Operator 09/29/24 10/01/24 documented as of this encounter
--- OUTSIDE RECORDS SUMMARY | 2025-06-04 10:38 | XMS_ITS | Encounter Summary ---
Author Organization [facility] Address [address] [place] [address] Phone Care Team Providers Care Scheduler Conveyor Name Role Phone Kenton Ricks MD Primary Care Provider + [phone] Kenton Ricks MD Primary Care Provider + [phone] Pebbles Nelson MD Unavailable [phone] Aylin Russ MD Unavailable [phone] Maricruz Ramirez NP Unavailable [phone] Joanne Lopez RN Unavailable Padmini Leatha Carter Unavailable Unavailable Ben Chahal MD PhD Unavailable [phone] Chace Oliva MD Unavailable [phone] Giovnana Alexis MD Unavailable Taisha Suarez RN Unavailable Unavaila Sandra Aguirre MD Unavailable [phone] Abby Higgins MD PhD Unavailable + Adrian Martinez MD Unavailable [phone] Vera Pérez Unavailable Jim Frausto MD Unavailable Анна Robert RN Unavailable [phone] Encounter Details Date Type Department Care Team (Late st Contact Info) Description 05/08/2014 Orders Only [facility]IN[facility] Provider, MD Max [address] [place] [address] Social History Tobacco Use Types Packs/Day Years Used Date Smoking Tobacco: Never Assessed Sex and Gender Information Value Date Recorded Sex Assigned at Not on file Legal Sex Male 12:58 AM ETL TESTER Gender Identity Male 11/11/2018 10:31 AM CDT Sexual Orientation Straight 06/09/2019 5: 34 PM ETL TESTER documented as of this encounter Plan [...] COVID: Suspected 06/07/2023 06/07/2023 06/07/2023 12:46 PM ETL TESTER COVID19 06/07/2023 06/07/2023 06/22/2023 3:06 AM ETL TESTER COVID: Recovered Comment:Added based on recent COVID infection. 06/22/2023 06/22/2023 09/20/2023 3:05 AM C DT COVID: Suspected 07/24/2023 07/24/2023 07/24/2023 3:53 PM ETL TESTER Diarrhea 07/30/2023 07/30/2023 08/13/2023 3:05 AM ETL TESTER COVID: Suspected 08/30/2023 08/30/2023 08/30/2023 4:52 PM ETL TESTER COVID: Suspected 10/12/2023 10/12/2023 10/12/2023 7:57 PM CDT Rhino/Enterovirus 10/12/2023 10/12/202310/2510/26/2023 3:05 AM CDT COVID: Suspected 07/10/2024 07/10/2024 07/10/2024 4:53 PM ETL TESTER COVID: Suspected Comment:07/16/2024 IP Review: no outstanding test, last RPP negative. Mary Tiwari RN 07/16/2024 07/16/2024 10:51 AM ETL TESTER COVID19 Comment:07/16/2024 IP Review: added by RN, RPP negative. Mary Tiwari RN 07/16/2024 07/16/2024 07/16/2024 10:51 AM ETL TESTER MRSA Comment:nasalMRSA Isolation [facility] 09/03/24 07/16/2024 08/15/2024 09/03/2024 6:[address] C. difficile suspected 07/19/2024 07/19/202407/19 2:34 PM ETL TESTER COVID: Suspected 07/23/2024 07/23/2024 07/23/2024 11:28 PM ETL TESTER C. difficile suspected 07/23/2024 07/24/202407/24 10:31 AM ETL TESTER Norovirus suspected 07/23/2024 07/24/2024 07/24/19 9:37 AM ETL TESTER VRE Comment:Contact Precautions (gown and gloves) - not eligible for IP review until 6 months after positive culture - Jerod QURESHI, CONY 10/01/24 07/24/2024 09/20/2024 03/19/2025 7:26 PM C DT COVID: Suspected 08/09/2024 08/09/2024 08/09/2024 9:40 AM ETL TESTER Influenza, adult Comment:08/26/2024 IP Review: pt afebrile but on antipyretics. Needs 24 hours off antipyretics and symptoms significantly improved/resolved in order for isolation to be discontinued. Mary Tiwari RN 08/15/2024 08/15/2024 08/29/2024 3:06 AM ETL TESTER Coronavirus, droplet 08/15/2024 08/15/202408/29/ 025 3:06 AM ETL TESTER C. difficile suspected 09/19/2024 09/19/202409/20 3:05 [...] documented as of this encounter Care Teams Scheduler Conveyor Relationship Specialty Start Date End Date Kenton Ricks MD PCP - General 08/14/16 Kenton Ricks MD PCP - General 09/17/08 08/13/16 Pebbles Nelson MD Referring Physician Cardiology 02/07/19 Aylin Russ MD [address] [facility] [address] [place] [address] Referring Physician Pulmonary Disease 02/07/19 Maricruz Ramirez NP [address] [facility] [address] [place] [address] Nurse Practitioner Cardiovascular Disease 09/25/21 Joanne Lopez, CONY Registered Nurse Pulmonary Disease 08/24/22 Leatha Cristina RMA Surgical Prehabilitation and Readiness (SPAR) Coordinator 09/01/22 01/02/23 Ben Chahal MD PhD Medical Oncologist/Clammer Medical Oncology 10/05/22 Chace Oliva MD [address] [place] [address] Consulting Physician Infectious Diseases 12/22/2204/01 Giovanna Alexis MD [address] [place] [address] Radiation Oncologist Radiation Oncology 03/09/23 Taisha Suarez, supervisor general Prehabilitation and Readiness (SPAR) Coordinator General Surgery 03/20/23 04/10/23 Sandra Ma MD Consulting Physician Medical Oncology 04/25/23 05/09/23 Abby Higgins MD PhD Medical Oncologist/Clammer Medical Oncology 05/10/23 Adrian Martinez MD 49[address] [facility] DIV SURG TRANSPLANT, [address] [place] [address] Surgical Oncologist Surgical Oncology 05/28/23 Vera Pérez PA [address] [place] [phone] [place] [address] Physician Metal Leaf Layer Colon and Rectal Surgery 09/13/23 Jim Frausto MD [address] [facility] [phone] [place] [address] Surgeon Colon and Rectal Surgery 11/21/23 Анна Robert, RN [address] [facility] [address] [place] [address] SHOP Outpatient Implementation Analyst 09/29/24 10/01/24 documented as of this encounter
--- OUTSIDE RECORDS SUMMARY | 2025-06-04 10:38 | XMS_ITS | Encounter Summary ---
Author Organization [facility] Address [address] [place] [address] Phone Care Team Providers Care Event Av Operator Name Role Phone Ketnon Ricks MD Primary Care Provider + [phone] Kenton Ricks MD Primary Care Provider + [phone] Pebbles Nelson MD Unavailable [phone] Aylin Russ MD Unavailable [phone] Maricruz Ramirez NP Unavailable [phone] Joanne Lopez RN Unavailable Padmini Leatha Carter Unavailable Unavailable Ben Chahal MD PhD Unavailable [phone] Chace Oliva MD Unavailable [phone] Giovanna Alexis MD Unavailable Taisha Suarez RN Unavailable Unavaila Sandra Aguirre MD Unavailable [phone] Abby Higgins MD PhD Unavailable + Adrian Martinez MD Unavailable [phone] Vera Pérez Unavailable Jim Frausto MD Unavailable Анна Robert RN Unavailable [phone] Encounter Details Date Type Department Care Team (Late st Contact Info) Description 09/01/2014 Orders Only [facility] Provider, MD Max [address] [place] [address] Social History Tobacco Use Types Packs/Day Years Used Date Smoking Tobacco: Never Assessed Sex and Gender Information Value Date Recorded Sex Assigned at Not on file Legal Sex Male 12:58 AM AMBULATORY SERVICE REPRESENTATIVE Gender Identity Male 11/11/2018 10:31 AM CDT Sexual Orientation Straight 06/09/2019 5: 34 PM AMBULATORY SERVICE REPRESENTATIVE documented as of this encounter Plan [...] COVID: Suspected 06/07/2023 06/07/2023 06/07/2023 12:46 PM AMBULATORY SERVICE REPRESENTATIVE COVID19 06/07/2023 06/07/2023 06/22/2023 3:06 AM AMBULATORY SERVICE REPRESENTATIVE COVID: Recovered Comment:Added based on recent COVID infection. 06/22/2023 06/22/2023 09/20/2023 3:05 AM C DT COVID: Suspected 07/24/2023 07/24/2023 07/24/2023 3:53 PM AMBULATORY SERVICE REPRESENTATIVE Diarrhea 07/30/2023 07/30/2023 08/13/2023 3:05 AM AMBULATORY SERVICE REPRESENTATIVE COVID: Suspected 08/30/2023 08/30/2023 08/30/2023 4:52 PM AMBULATORY SERVICE REPRESENTATIVE COVID: Suspected 10/12/2023 10/12/2023 10/12/2023 7:57 PM CDT Rhino/Enterovirus 10/12/2023 10/12/202310/2510/26/2023 3:05 AM CDT COVID: Suspected 07/10/2024 07/10/2024 07/10/2024 4:53 PM AMBULATORY SERVICE REPRESENTATIVE COVID: Suspected Comment:07/16/2024 IP Review: no outstanding test, last RPP negative. Mary Tiwari RN 07/16/2024 07/16/2024 10:51 AM AMBULATORY SERVICE REPRESENTATIVE COVID19 Comment:07/16/2024 IP Review: added by RN, RPP negative. Mary Tiwari RN 07/16/2024 07/16/2024 07/16/2024 10:51 AM AMBULATORY SERVICE REPRESENTATIVE MRSA Comment:nasalMRSA Isolation Custodial 09/03/24 07/16/2024 08/15/2024 09/03/2024 6:[address] C. difficile suspected 07/19/2024 07/19/202407/19 2:34 PM AMBULATORY SERVICE REPRESENTATIVE COVID: Suspected 07/23/2024 07/23/2024 07/23/2024 11:28 PM AMBULATORY SERVICE REPRESENTATIVE C. difficile suspected 07/23/2024 07/24/202407/24 10:31 AM AMBULATORY SERVICE REPRESENTATIVE Norovirus suspected 07/23/2024 07/24/2024 07/24/19 9:37 AM AMBULATORY SERVICE REPRESENTATIVE VRE Comment:Contact Precautions (gown and gloves) - not eligible for IP review until 6 months after positive culture - Jerod QURESHI, CONY 10/01/24 07/24/2024 09/20/2024 03/19/2025 7:26 PM C DT COVID: Suspected 08/09/2024 08/09/2024 08/09/2024 9:40 AM AMBULATORY SERVICE REPRESENTATIVE Influenza, adult Comment:08/26/2024 IP Review: pt afebrile but on antipyretics. Needs 24 hours off antipyretics and symptoms significantly improved/resolved in order for isolation to be discontinued. Mary Tiwari RN 08/15/2024 08/15/2024 08/29/2024 3:06 AM AMBULATORY SERVICE REPRESENTATIVE Coronavirus, droplet 08/15/2024 08/15/202408/29/ 025 3:06 AM AMBULATORY SERVICE REPRESENTATIVE C. difficile suspected 09/19/2024 09/19/202409/20 3:05 [...] documented as of this encounter Care Teams Event Av Operator Relationship Specialty Start Date End Date Kenton Ricks MD PCP - General 08/14/16 Kenton Ricks MD PCP - General 09/17/08 08/13/16 Pebbles Nelson MD Referring Physician Cardiology 02/07/19 Aylin Russ MD [address] [facility] [address] [place] [address] Referring Physician Pulmonary Disease 02/07/19 Maricruz Ramirez NP [address] [facility] [address] [place] [address] Nurse Practitioner Cardiovascular Disease 09/25/21 Joanne Lopez, CONY Registered Nurse Pulmonary Disease 08/24/22 Leatha Cristina RMA Surgical Prehabilitation and Readiness (SPAR) Coordinator 09/01/22 01/02/23 Ben Chahal MD PhD Medical Oncologist/Vegetable Buncher Medical Oncology 10/05/22 Chace Oliva MD [address] [place] [address] Consulting Physician Infectious Diseases 12/22/2204/01 Giovanna Alexis MD [address] [place] [address] Radiation Oncologist Radiation Oncology 03/09/23 Taisha Suarez, human resources coordinator Prehabilitation and Readiness (SPAR) Coordinator General Surgery 03/20/23 04/10/23 Sandra Ma MD Consulting Physician Medical Oncology 04/25/23 05/09/23 Abby Higgins MD PhD Medical Oncologist/Vegetable Buncher Medical Oncology 05/10/23 Adrian Martinez MD [address] [facility] [address] [place] [address] Surgical Oncologist Surgical Oncology 05/28/23 Vera Pérez PA [id number] [place] [address] Physician Tenant Coordinator Colon and Rectal Surgery 09/13/23 Jim Frausto MD [address] [facility] [phone] [place] [address] Surgeon Colon and Rectal Surgery 11/21/23 Анна Robert, RN [address] [facility] [address] [place] [address] SHOP Outpatient Weighbridge Operator 09/29/24 10/01/24 documented as of this encounter
[2025-06-04 11:01] LABS: Thyroid Stimulating Hormone Reflex 2.230 uIU/mL (0.465-4.68)
[2025-06-04 11:41] LABS: Vitamin B12 807.0 pg/mL (239-931)
[2025-06-05 15:09] LABS: Alkaline Phosphatase 673 IU/L (47-123)
== END 2025-06-04 09:45 | disposition home or self-care (01) ==
PROVIDERS: PCP Family Medicine; Referring Provider Nurse Practitioner Family; Visit Provider Nurse Practitioner
DX: R79.89 Other specified abnormal findings of blood chemistry (principal); K52.9 Noninfective gastroenteritis and colitis, unspecified; K21.9 Gastro-esophageal reflux disease without esophagitis; K74.60 Unspecified cirrhosis of liver; K86.81 Exocrine pancreatic insufficiency; R74.8 Abnormal levels of other serum enzymes
CPT/HCPCS: 36415; 80053; 82105; 82607; 82746; 82784; 83690; 84075; 84080; 84443; 85027; 86140

== ENCOUNTER 2025-06-04 10:24 | Emergency (ER) | payer MEDICARE, MEDICAID, SELFPAY ==
--- NOTE | ~2025-06-04 | CT_ITS ---
CT abdomen pelvis w con Clinical History: LGIB, abd pain . Comparison: 03/11/2024 Technique: Axial images lung bases to symphysis pubis IV contrast information not listed in PACS Coronal, sagittal reformats CT images acquired with automatic exposure control for dose reduction DLP: 1035 mGy-cm Findings: Lung bases: Clear. Visualized heart and pericardium: Cardiomegaly. Liver: Pneumobilia. Gallbladder: Removed. Spleen: Unremarkable. Pancreas: Whipple. Mild ductal dilatation Adrenal glands: Unchanged small nodule left side. Kidneys: Right kidney- No hydronephrosis. Tiny stones. Left kidney- No hydronephrosis. A few stones. Small cyst. Distal esophagus/stomach: Gastric antral wall thickening. Small bowel loops: Normal caliber and wall thickness. Colon: Normal caliber and wall thickness. Normal appendix probably seen. Nodes: No enlarged nodes. Unchanged small nodes around root of mesentery. Peritoneum: No ascites. No free air. Urinary bladder: Mild wall thickening. Prostate: Removed. Bones: No acute bony abnormality. L5 spondylolysis, with spondylolisthesis. Soft tissues: Small paraumbilical hernia with fat. Abnormal soft tissue surrounding coccyx unchanged. Aorta: No aneurysm or dissection. IVC: Unremarkable. Main portal vein/SMV/splenic vein: Patent. IMPRESSION: 1. No acute findings. Reviewed, dictated and finalized at location [facility] IMPRESSION: 1. No acute findings.
[2025-06-04 10:55] VITALS: BP 137/62; PULSE 63; RESP 16; TEMP 36.9; O2SAT 98
--- NOTE | 2025-06-04 11:26 | ECG_ITS ---
Test Date: 2025-06-04 11:34:15 Measurements Intervals Holcomb Rate: 60 P: 100 GA: 253 QRS: -56 QRSD: 166 T: 4 QT: 482 QTc: 482 Interpretive Statements ELECTRONIC ATRIAL PACEMAKER RIGHT BUNDLE BRANCH BLOCK LEFT ANTERIOR FASCICULAR BLOCK LEFT VENTRICULAR HYPERTROPHY HIGH LATERAL INFARCT, AGE INDETERMINATE ABNORMAL ECG Compared to ECG 03/11/2024 06:26:26 NO SIGNIFICANT CHANGE Electronically Signed On 06-04-2025 11:54:33 RN HEMATOLOGY by Carlos Heck D.O.
--- OUTSIDE RECORDS SUMMARY | 2025-06-04 11:32 | XMS_ITS | Clinical Summary ---
Author Organization [facility] Address [address] [place] [address] Care Team Providers Care Electrical Sign Wirer Name Role Phone Kenton Ricks MD Primary Care Provider [phone] Allergies Active Allergy Reactions Criticality Noted Date [...] on file Legal Sex Male 4:35 AM OPERATIONAL RISK MANAGER Gender Identity Not on file Sexual [...] Insurance BLUE ACCESS/TRUE BLUE PPO Care Teams Electrical Sign Wirer Relationship Specialty Start Date End Date Kenton Ricks MD [address] [place] [address] PCP - General Family Practice 11/15/18
--- OUTSIDE RECORDS SUMMARY | 2025-06-04 11:32 | XMS_ITS | Clinical Summary ---
Author Organization [facility] Address [address] [place], [place] [id number] Care Team Providers Care Information Services Consultant Name Role Phone Ivonne Alcantar PA-C Primary Care Provider [phone] Social History Tobacco Use Types Packs/Day Years [...] complete this topic Insurance MEDICAID Care Teams Information Services Consultant Relationship Specialty Start Date End Date Ivonne Alcantar PA-C [address] [place], [place] [id number] PCP - General [employer] GLAZER 12/06/21
--- OUTSIDE RECORDS SUMMARY | 2025-06-04 11:34 | XMS_ITS | Encounter Summary ---
Author Organization [facility] Address [address] [place] [address] Care Team Providers Care Inclusion Teacher Name Role Phone Kenton Ricks MD Primary Care Provider [phone] Encounter Details Date Type Department Care Team (Latest Contact Info) Description 08/02/2001 Outpatient Historical [facility] Shabbir Villavicencio MD [address] [facility] [address] [place] [address] CONVULSIONS, OTHER (CMS/HCC) (Primary Dx) Social History Tobacco Use Types Packs/Day Years Used Date Smoking Tobacco: Never Assessed Sex and Gender Information Value Date Recorded Sex Assigned at Not on file Legal Sex Male 4:35 AM FUEL BUYER Gender Identity Not on file Sexual Orientation Not on file documented as of this encounter Plan of Treatment Not on file documented as of this encounter Visit Diagnoses Diagnosis Other convulsions- Primary documented in this encounter Care Teams Inclusion Teacher Relationship Specialty Start Date End Date Kenton Ricks MD [address] [place] [address] PCP - General Family Practice 11/15/18 documented as of this encounter
--- OUTSIDE RECORDS SUMMARY | 2025-06-04 11:34 | XMS_ITS | Clinical Summary ---
Author Organization [facility] Address [address] [place] [address] Care Team Providers Care C Iron Worker Name Role Phone Kenton Ricks MD Primary Care Provider [phone] Source Comments [facility],non-owned Affiliates and Associated Physician Practices is amultiple site organization consisting of ambulatory clinics and hospital sitesin [place], [place], [place] and [place]. This disclosure is being madepursuant to the Care Everywhere program and may not contain all information available regarding this patient. Last updated 18.[facility] Medications * Be aware that medications may [...] on file Legal Sex Male 6:18 AM FRENCH PASTRY COOK Gender Identity Not on file Sexual Orientation Not on file Last Filed Vital Signs Vital Sign Reading Time Taken Comments Blood Pressure 126/67 07/06/2017 11:17 AM FRENCH PASTRY COOK Pulse 60 07/06/2017 11:17 AM FRENCH PASTRY COOK Temperature 36.4 C (97.5 F) 07/06/2017 11:17 AM FRENCH PASTRY COOK Respiratory Rate 16 06/29/2017 12:33 PM FRENCH PASTRY COOK Oxygen Saturation 99% 07/06/2017 11:17 AM FRENCH PASTRY COOK Inhaled Oxygen Concentration - - Weight 115.7 kg (255 lb) 07/06/2017 11:17 AM FRENCH PASTRY COOK Height 175.3 cm (5' 9) 07/06/2017 11:17 AM FRENCH PASTRY COOK Body Mass Index 37.66 07/06/2017 11:17 AM FRENCH PASTRY COOK Plan of Treatment Health Maintenance Due Date [...] age to complete this topic Care Teams C Iron Worker Relationship Specialty Start Date End Date Kenton Ricks MD [address] [place] [address] PCP - General Family Medicine 08/20/15
--- OUTSIDE RECORDS SUMMARY | 2025-06-04 11:34 | XMS_ITS | Encounter Summary ---
Author Organization [facility] Address [address] [place] [address] Care Team Providers Care Technical Business Analyst Name Role Phone Kenton Ricks MD Primary Care Provider [phone] Encounter Details Date Type Department Care Team (Late st Contact Info) Description 10/06/2001 Outpatient [facility] [address] [place] [address]. [place] [address] Anika Rowan MD NO ADDRESS ON FILE Social History Tobacco Use Types Packs/Day Years Used Date Smoking Tobacco: Never Assessed Sex and Gender Information Value Date Recorded Sex Assigned at Not on file Legal Sex Male 4:35 AM FIELD IRRIGATION WORKER Gender Identity Not on file Sexual Orientation Not on file documented as of this encounter Plan of Treatment Not on file documented as of this encounter Visit Diagnoses Not on filedocumented in this encounter Care Teams Technical Business Analyst Relationship Specialty Start Date End Date Kenton Ricks MD [address] [place] [address] PCP - General Family Practice 11/15/18 documented as of this encounter
--- OUTSIDE RECORDS SUMMARY | 2025-06-04 11:34 | XMS_ITS | Encounter Summary ---
Author Organization [facility] Address [address] [place] [address] Care Team Providers Care Trolley Worker Name Role Phone Kenton Ricks MD Primary Care Provider [phone] Encounter Details Date Type Department Care Team (Late st Contact Info) Description 07/23/2001 Outpatient Historical Division of Neurology [address] [address] Shabbir Villavicencio MD [address] [facility] [address] [place] [address] Social History Tobacco Use Types Packs/Day Years Used Date Smoking Tobacco: Never Assessed Sex and Gender Information Value Date Recorded Sex Assigned at Not on file Legal Sex Male 4:35 AM ANIMAL THERAPIST Gender Identity Not on file Sexual Orientation Not on file documented as of this encounter Plan of Treatment Not on file documented as of this encounter Visit Diagnoses Not on filedocumented in this encounter Care Teams Trolley Worker Relationship Specialty Start Date End Date Kenton Ricks MD [address] [place] [address] PCP - General Family Practice 11/15/18 documented as of this encounter
--- OUTSIDE RECORDS SUMMARY | 2025-06-04 11:34 | XMS_ITS | Encounter Summary ---
Author Organization [facility] Address [address] [place] [address] Care Team Providers Care Metal Machinist Name Role Phone Kenton Ricks MD Primary Care Provider [phone] Encounter Details Date Type Department Care Team (Late st Contact Info) Description 09/30/2001 Outpatient [facility] [address] [place] [address]. [place] [address] Anika Rowan MD NO ADDRESS ON FILE Social History Tobacco Use Types Packs/Day Years Used Date Smoking Tobacco: Never Assessed Sex and Gender Information Value Date Recorded Sex Assigned at Not on file Legal Sex Male 4:35 AM BEST WORKER Gender Identity Not on file Sexual Orientation Not on file documented as of this encounter Plan of Treatment Not on file documented as of this encounter Visit Diagnoses Not on filedocumented in this encounter Care Teams Metal Machinist Relationship Specialty Start Date End Date Kenton Ricks MD [address] [place] [address] PCP - General Family Practice 11/15/18 documented as of this encounter
--- OUTSIDE RECORDS SUMMARY | 2025-06-04 11:34 | XMS_ITS | Encounter Summary ---
Author Organization [facility] [employer] [facility] [facility] Address [address] [place] [address] Care Team Providers Care Manager Paid Name Role Phone Kenton Ricks MD Primary Care Provider [phone] Encounter Details Date Type Department Care Team (Latest Contact Info) Description 05/17/2001 Outpatient [facility] [address] [facility] [address] Kenyon Montenegro MD [address] [address] HEADACHE (Primary Dx) Social History Tobacco Use Types Packs/Day Years Used Date Smoking Tobacco: Never Assessed Sex and Gender Information Value Date Recorded Sex Assigned at Not on file 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 [address] PCP - General Family Practice 11/15/18 documented as of this encounter
--- OUTSIDE RECORDS SUMMARY | 2025-06-04 11:34 | XMS_ITS | Clinical Summary ---
Author Organization [facility] Address [address] [place] [address] Phone Care Team Providers Care Truss Maker Name Role Phone Kenton Ricks MD Primary Care Provider [phone] Allergies Active Allergy Reactions Criticality Noted Date [...] ACEI to ARB. 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 Pulse - - Temperature 35.7 C (96.3 F) 05/24/2022 9:24 AM SELLING UNDERWRITER Respiratory Rate 18 05/24/2022 9:24 AM SELLING UNDERWRITER Oxygen Saturation - - Inhaled Oxygen Concentration - - Weight 126 kg (278 lb) 05/24/2022 9:24 AM SELLING UNDERWRITER Height 172.7 cm (5' 8) 05/24/2022 9:24 AM SELLING UNDERWRITER Body Mass Index 42.27 05/24/2022 9:24 AM SELLING UNDERWRITER Plan of Treatment Health Maintenance Due Date Last Done Comments Pneumococcal PPSV23/PCV13 65 + Years / Low and Medium Risk (1 of 2 - PCV) 2005 Influenza Vaccine (#1) 2025 , 04/01/2017, 06/14/2016 Insurance [employer] MEDICARE ADVANTAGE Care Teams Truss Maker Relationship Specialty Start Date End Date Kenton Ricks MD [address] [place] [address] PCP - General Family Medicine 02/16/22
--- OUTSIDE RECORDS SUMMARY | 2025-06-04 11:34 | XMS_ITS | Encounter Summary ---
Author Organization [facility] Address [address] [place] [address] Care Team Providers Care Graduate Teaching Associate Name Role Phone Kenton Ricks MD Primary Care Provider [phone] Encounter Details Date Type Department Care Team (Late st Contact Info) Description 12/24/2001 Outpatient [facility] [address] [place] [address]. 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 [address] PCP - General Family Practice 11/15/18 documented as of this encounter
[2025-06-04 12:10] LABS: Hematocrit 39.3 % (42.0-52.0); Hemoglobin 12.5 g/dL (14.0-18.0); Immature Granulocyte Percent A 0.6 % (0-0.5); Lymphocytes Absolute Auto 0.70 K/mm3 (0.9-3.2); Mean Corpuscular HGB Conc 31.8 g/dl (32-36); Mean Corpuscular Hemoglobin 28.2 pg (26-34); Mean Corpuscular Volume 88.5 fl (80-100); Nucleated Red Blood Cells Absolute Auto 0.000 K/mm3 (0.0-0.012); Nucleated Red Blood Cells Perc 0.0 % (0.0-0.2); Platelet Count Result 141 k/mm3 (150-375); Red Blood Count 4.44 M/mm3 (4.6-6.20); White Blood Count 5.3 K/mm3 (4.5-10.0)
[2025-06-04 12:21] LABS: INR 1.1; Prothrombin Time 14.0 Seconds (11.1-14.7)
[2025-06-04 12:22] LABS: Partial Thromboplastin Time 31.9 Seconds (22.3-36.8)
[2025-06-04 12:24] LABS: Alanine Aminotransferase 78 U/L (6-50); Albumin Level 4.0 g/dL (3.5-5.1); Alkaline Phosphatase 572 U/L (38-126); Anion Gap 3 mmol/L (4-12); Aspartate Amino Transferase 60 U/L (17-59); Bilirubin,Total 0.7 mg/dL (0.2-1.3); Blood Urea Nitrogen 20 mg/dL (9-20); Calcium 9.5 mg/dL (8.4-10.2); Carbon Dioxide 27 mmol/L (22-30); Chloride 109 mmol/L (98-107); Estimated CRCL calculation 86 ml/min; Estimated Glomerular Filt Rate > 60; Glucose 85 mg/dL (65-110); Lipase 27 U/L (23-300); Magnesium 2.4 mg/dL (1.6-2.3); Potassium 4.0 mmol/L (3.4-5.0); Sodium 139 mmol/L (137-145); Total Protein 7.3 g/dL (6.3-8.2)
[2025-06-04] MEDS: ALTEPLASE 2 MG VIAL (CATHFLO) IV PUSH (12:25)
--- NOTE | 2025-06-04 13:13 | PC.NURSE ---
Patient given orange juice per verbal order due to low BS
[2025-06-04 13:41] VITALS: BP 131/58; PULSE 64; RESP 20; O2SAT 97
[2025-06-04] MEDS: ONDANSETRON INJ 4 MG/2 ML VIAL IV PUSH (14:45)
[2025-06-04] MEDS: MORPHINE SULFATE (*CRX) 4 MG/ML INJ IV PUSH (14:46)
[2025-06-04] MEDS: LACTATED RINGERS 1,000 ML 999 ML IV CONT (14:52)
[2025-06-04] MEDS: PANTOPRAZOLE SODIUM IV 40 MG VIAL IV PUSH (14:52)
[2025-06-04 14:53] LABS: Add Urine Microscopic? YES; Appearance Urine Clear (Clear); Glucose Urine UA Negative (Negative); Leukocyte Esterase Ur Negative LEU/UL (Negative); Nitrate Urine Negative (Negative); Non Pathogenic Casts 0-2; Specific Grav Ur 1.021 (1.001-1.035)
[2025-06-04 15:04] VITALS: BP 118/48; PULSE 65; RESP 16; O2SAT 98
--- NOTE | 2025-06-04 15:48 | ED_ITS ---
HPI - Abdominal Pain General Chief Complaint: Abdominal Pain Stated Complaint: DOESNT' FEEL WELL AFTER LAB WORK Time Seen by Provider: 06/04/25 11:22 History of Present Illness HPI narrative: Patient presents here from GI appointment, he has history of pancreatic cancer status post Whipple and has been having some abdominal pain, also noticed some nausea and blood in his stools intermittently. Related Data Home Medications ?Medication ?Instructions ?Recorded ?Confirmed ?Last Taken ?Type simethicone 180 mg capsule (Gas 180 mg PO BID PRN Abdo yanet 08/31/22 06/04/25 10/25/22 History Relief (simethicone)) Discomfort fluticasone furoate 100 1 inh inhalation DAILY 10/2706/04/25 10/27/22 09:00 History mcg-vilanterol 25 mcg/dose inhalation powder rosuvastatin 5 mg tablet (Crestor) 5 mg PO DAILY 03/2206/04/25 02/16/25 History tamsulosin 0.4 mg capsule 0.4 mg PO DAILY PRN urinary 03/22/23 06/04/25 Unknown History retention aspirin 81 mg tablet,delayed 81 mg PO DAILY 05/31/23 1 08/05/24 02/09/25 History release (Adult Low Dose Aspirin) Held on 02/17/25. Instructions: Resume on 02/19/25. fluticasone propionate 50 1 spray intranasal DAILY 06/04/25 02/16/25 History mcg/actuation nasal spray,suspension (Allergy Relief (fluticasone)) [id number](pork)24,000-76,000-120,000 See Rx Instructions PO .up to 6 10/11/23 06/04/25 02/13/25 History unit capsule,del rel (Creon) times a day ascorbic acid (vitamin C) 500 mg 500 mg PO DAILY 10/2106/04/25 02/13/25 History capsule insulin aspart U-100 100 unit/mL 12 unit subcut .WITH MEALS 10/22/23 06/04/25 02/17/25 History (3 mL) subcutaneous pen (Novolog FlexPen U-100 Insulin aspart) insulin degludec 100 unit/mL (3 40 unit subcut QAM 06/04/25 02/17/25 History mL) subcutaneous pen (Tresiba FlexTouch U-100 insulin) torsemide 20 mg tablet 60 mg PO DAILY 10/22/2310/2402/16/25 History B-complex with vitamin C 1 cap PO DAILY 01/26/2510/2402/13/25 History ferrous sulfate 325 mg (65 mg 325 mg PO DAILY 01/26/25 06/04/25 02/13/25 History iron) tablet lidocaine HCl 2 % mucosal jelly in topical 01/26/25 Unknown History applicator vibegron 75 mg tablet (Gemtesa) 75 mg PO HS 01/26/25 1 08/05/24 02/16/25 History multivitamin (Daily Multi-Vitamin 1 tablet PO DAILY 06/04/25 02/13/25 History tablet) methocarbamol 500 mg tablet mg PO ONCE 04/08/25 Unknown History Allergies Allergy/AdvReac Type Severity Reaction Status Date / Time meropenem Allergy Severe SHORTNESS Verified 06/04/25 10:24 OF BREATH vancomycin Allergy Severe Other Verified 06/04/25 10:24 iron dextran complex Allergy Other Verified 06/04/25 10:24 Sulfa (Sulfonamide Allergy Rash Verified 06/04/25 10:24 Antibiotics) menthol AdvReac Severe BROWER SKIN Verified 06/04/25 10:24 prochlorperazine (From AdvReac Severe Drowsy Verified 06/04/25 10:24 Compazine) metoclopramide (From Reglan) AdvReac Intermediate Agitated Verified 06/04/25 10:24 ceftriaxone (From Rocephin) AdvReac Mild Nausea and Verified 06/04/25 10:24 Vomiting Review of Systems 2 Review of Systems: All systems reviewed & are unremarkable except as noted in HPI and below PMFSH Past Medical History Medical History Elevated alkaline phosphatase level Pneumonia Paroxysmal A-fib Diastolic CHF Chest pain Chronic pain Depression Anal fissure Vision changes Chest wall pain Stomatitis Pacemaker at end of battery life Accidental esophageal perforation during procedure BMI 34.0-34.9,adult BMI 33.0-33.9,adult Superficial venous thrombosis of right upper extremity (~09/2022) Strain of rhomboid muscle History of cluster headache Polyuria Syncope History of colon polyps Acute diastolic CHF (congestive heart failure) Family hx of colon cancer Knee osteoarthritis Dermatitis Neurogenic bladder Morbid (severe) obesity due to excess calories Thyroid nodule status post biopsy with benign pathology Adrenal adenoma stable on imaging since 2018 C. 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 Lumbar degenerative disc disease Mixed hyperlipidemia Spinal stenosis, lumbar region with neurogenic claudication CHF (congestive heart failure) echocardiogram performed at [place] 01/28/2020 demonstrated mild aortic regurgitation mild mitral regurgitation, diastolic dysfunction and severe left ventricular enlargement with normal ejection fraction 65% 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 Schmidt Sacral nerve stimulator present (03/2020) S/P removal of thyroid nodule History of arthroscopy of left knee due to meniscal tear Biceps tendon rupture status post repair History of appendectomy History of prostatectomy with chronic urinary incontinence Status post left rotator cuff repair History of colonoscopy with polypectomy AICD (automatic cardioverter/defibrillator) present Status post trigger finger release bilateral Family History Family History Father Cerebrovascular accident Neurofibromatosis Coronary artery disease Diabetes mellitus CHF (congestive heart failure) Acute myocardial infarction Mother Breast cancer Cerebrovascular accident Grandparent Alcoholism Sibling Thyroid cancer sister Sibling Depression Breast cancer H/O mastectomy Sibling Depression Adrenal cancer sister Sibling Depression Social History Social History Social History: the patient briefly smoked while in college. He drinks 1-2 beers a week. He lives in [place] with his of 40 years. They have 3 children who are healthy and 3 grand children. 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 Code status: DNR/DNI (the patient reports that given his recent changes in his health status he wants to change his code status to DNR/DNI.) Power of health care attorney for healthcare: Claudine () Years smoked: 3 Smoking status: Former smoker Tobacco type: cigarettes Second hand tobacco smoke exposure: No Alcohol intake: current Drinks per week: 1 Alcohol use details: on occasion Substance use: never Substance use type: does not use Lack of Transportation: No Lack of Food: Never True Current Housing: I Have Housing Concerned About Future Housing: No Difficulty Paying Gas/Electric Bills: YES Difficulty Paying for Meds: No Currently Unemployed: No Education: Bachelor's Degree Difficulty w/ Childcare or Family Care: No Living arrangements: with family Additional living arrangements comments: AND SON Occupation/Education: retired 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 EYES: EOMI, conjunctiva normal ENT: Hearing grossly intact LUNGS: Nonlabored breathing. HEART: [Regular rate and rhythm] ABD: [Soft], slight tenderness to the right abdomen RECTAL: nurse street department dispatcher in room. Grossly yellow stool, Hemoccult positive EXT: Normal range of motion SKIN: [No rashes or lesions.] NEURO: [Alert. No gross focal sensory or strength deficits.] PSYCH: Normal affect Course Vital Signs Vital signs: Vital Signs Temperature 98.4 F 06/04/25 10:55 Pulse Rate 63 06/04/25 10:55 Respiratory Rate 16 06/04/25 10:55 Blood Pressure 137/62 06/04/25 10:55 Pulse Oximetry 98 06/04/25 10:55 Temperature 98.4 F 06/04/25 10:55 Pulse Rate 65 06/04/25 15:04 Respiratory Rate 16 06/04/25 15:04 Blood Pressure 118/48 L 06/04/25 15:04 Pulse Oximetry 98 06/04/25 15:04 MDM MDM Narrative Medical decision making narrative: Electronic medical record was reviewed. Patient presented to the ED with complaint of [abdominal pain and vomiting with some blood in his stool]. Vitals [were within acceptable limits]. Physical exam revealed tired. Patient, with minimal tenderness to the right abdomen. CBC, BMP, lipase, LFTs, bilirubin and alk phos were obtained. Labs were pertinent for elevated LFTs and alk-phos which has been baseline for patient. [Decision was made to obtain a CT-abdomen to evaluate for acute abdominal process. CT-abdomen per radiology interpretation is unremarkable for acute intra-abdominal process.] Findings discussed with patient, given IV Zofran, Protonix. There were no witnessed episodes of vomiting in the emergency department. They are not complaining of any new abdominal pain. Repeat examination did not show any significant guarding or rebound. No new tenderness. I did call his GI specialist, agrees patient is stable for outpatient management and workup, the patient was given strict return precautions, if they are to develop any worsening abdominal pain, vomiting, or blood in the vomit they are to return to the emergency department immediately. Patient verbally acknowledges understanding these directions. [The patient was informed of the above diagnostic test findings.] No further workup is necessary at this time. They will be discharged home [with prescriptions]. They were advised to follow-up with gastroenterology in 2 days. The patient feels that this is appropriate medical decision making and verbalizes an understanding of the discharge instructions. Differential Diagnosis Differential Diagnosis: Upper GI bleed, lower GI bleed, diverticular, hemorrhoids, SBO, colitis, etc Lab Data 06/04/25 12:05 06/04/25 12:05 Labs: Lab Results 06/04/25 06/04/25 06/04/25 Range/Units 11:38 12:05 12:56 WBC 5.3 (4.5-10.0) K/mm3 RBC 4.44 L (4.6-6.20) M/mm3 Hgb 12.5 L (14.0-18.0) g/dL Hct 39.3 L (42.0-52.0) % MCV 88.5 (80-100) fl MCH 28.2 (26-34) pg MCHC 31.8 L (32-36) g/dl RDW 16.8 H (11.5-14.5) % Plt Count 141 L (150-375) k/mm3 MPV 9.9 (7.4-10.4) fl Immature Gran % (Auto) 0.6 H (0-0.5) % Neut % (Auto) 72.5 (45.5-73.1) % Lymph % (Auto) 13.3 L (18.3-44.2) % [place] % (Auto) 10.2 H (2.6-8.5) % Eos % (Auto) 3.0 (0-4.4) % Baso % (Auto) 0.4 (0.2-1.2) % Lymph # (Auto) 0.70 L (0.9-3.2) K/mm3 [place] # (Auto) 0.5 (0.1-0.6) K/mm3 Eos # (Auto) 0.2 (0-0.3) K/mm3 Baso # (Auto) 0.0 (0.0-0.1) K/mm3 Abs Immat Gran (auto) 0.03 (0.00-0.031) K/mm3 Absolute Neuts (auto) 3.8 (1.3-6.7) K/mm3 Absolute Nucleated RBC 0.000 (0.0-0.012) K/mm3 Nucleated RBC % 0.0 (0.0-0.2) % PT 14.0 (11.1-14.7) Seconds INR 1.1 APTT 31.9 (22.3-36.8) Seconds Sodium 139 (137-145) mmol/L Potassium 4.0 (3.4-5.0) mmol/L Chloride 109 H (98-107) mmol/L Carbon Dioxide 27 (22-30) mmol/L Anion Gap 3 L (4-12) mmol/L BUN 20 (9-20) mg/dL Creatinine 0.81 (0.7-1.3) mg/dL Estim Creat Clear Calc 86 ml/min Estimated GFR > 60 (59 - ) Glucose 85 (65-110) mg/dL POC Capillary Glucose 89 76 (65-105) mg/dl Lactic Acid 0.9 (0.7-2.0) mmol/L Calcium 9.5 (8.4-10.2) mg/dL Magnesium 2.4 H (1.6-2.3) mg/dL Total Bilirubin 0.7 (0.2-1.3) mg/dL AST 60 H (17-59) U/L ALT 78 H (6-50) U/L Alkaline Phosphatase 572 H (38-126) U/L Total Protein 7.3 (6.3-8.2) g/dL Albumin 4.0 (3.5-5.1) g/dL Lipase 27 (23-300) U/L Urine Color (Yellow) Urine Appearance (Clear) Urine pH (5.0-9.0) Ur Specific [place] (1.001-1.035) Urine Protein (Negative) mg/dL Urine Glucose (UA) (Negative) mg/dL Urine Ketones (Negative) mg/dL Ur Blood (Man) (Negative) Urine Nitrate (Negative) Urine Bilirubin (Negative) Urine Urobilinogen (<2.0) mg/dL Leukocyte Esterase Rfl (Negative) TY/UL Urine RBC (0-2) /hpf Urine WBC (0-3) /hpf Ur Squamous Epith Cells (Few) /hpf Urine Bacteria /hpf Urine Casts Blood Type A Positive Antibody Screen Negative 06/04/25 06/04/25 Range/Units 13:38 14:46 WBC (4.5-10.0) K/mm3 RBC (4.6-6.20) M/mm3 Hgb (14.0-18.0) g/dL Hct (42.0-52.0) % MCV (80-100) fl MCH (26-34) pg MCHC (32-36) g/dl RDW (11.5-14.5) % Plt Count (150-375) k/mm3 MPV (7.4-10.4) fl Immature Gran % (Auto) (0-0.5) % Neut % (Auto) (45.5-73.1) % Lymph % (Auto) (18.3-44.2) % [place] % (Auto) (2.6-8.5) % Eos % (Auto) (0-4.4) % Baso % (Auto) (0.2-1.2) % Lymph # (Auto) (0.9-3.2) K/mm3 [place] # (Auto) (0.1-0.6) K/mm3 Eos # (Auto) (0-0.3) K/mm3 Baso # (Auto) (0.0-0.1) K/mm3 Abs Immat Gran (auto) (0.00-0.031) K/mm3 Absolute Neuts (auto) (1.3-6.7) K/mm3 Absolute Nucleated RBC (0.0-0.012) K/mm3 Nucleated RBC % (0.0-0.2) % PT (11.1-14.7) Seconds INR APTT (22.3-36.8) Seconds Sodium (137-145) mmol/L Potassium (3.4-5.0) mmol/L Chloride (98-107) mmol/L Carbon Dioxide (22-30) mmol/L Anion Gap (4-12) mmol/L BUN (9-20) mg/dL Creatinine (0.7-1.3) mg/dL Estim Creat Clear Calc ml/min Estimated GFR (59 - ) Glucose (65-110) mg/dL POC Capillary Glucose 86 (65-105) mg/dl Lactic Acid (0.7-2.0) mmol/L Calcium (8.4-10.2) mg/dL Magnesium (1.6-2.3) mg/dL Total Bilirubin (0.2-1.3) mg/dL AST (17-59) U/L ALT (6-50) U/L Alkaline Phosphatase (38-126) U/L Total Protein (6.3-8.2) g/dL Albumin (3.5-5.1) g/dL Lipase (23-300) U/L Urine Color Yellow (Yellow) Urine Appearance Clear (Clear) Urine pH 5.5 (5.0-9.0) Ur Specific [place] 1.021 (1.001-1.035) Urine Protein Trace (Negative) mg/dL Urine Glucose (UA) Negative (Negative) mg/dL Urine Ketones Negative (Negative) mg/dL Ur Blood (Man) Negative (Negative) Urine Nitrate Negative (Negative) Urine Bilirubin Negative (Negative) Urine Urobilinogen 0.2 (<2.0) mg/dL Leukocyte Esterase Rfl Negative (Negative) TY/UL Urine RBC 0-2 (0-2) /hpf Urine WBC 0-5 (0-3) /hpf Ur Squamous Epith Cells None seen (Few) /hpf Urine Bacteria None seen /hpf Urine Casts 0-2 Blood Type Antibody Screen Imaging Data Radiologist's impression: ITS Impressions Abdomen/Pelvis CT 12/04/25 13:40 IMPRESSION: 1. No acute findings. Discharge Plan Discharge Clinical Impression: GI bleed, Anemia, Abdominal pain Patient Disposition: Home Condition: Stable Instructions: Rectal Bleeding (ED), Abdominal Pain (ED) Additional Instructions: Try the medications as prescribed. Please follow up with your doctor; you can always return for any further issues, especially if you have nausea vomiting, blood in your vomit or in your stool, worsening pain, etc.. Patient Language: Congolese Prescriptions: New famotidine 20 mg tablet 20 mg PO DAILY Qty: 30 0RF ondansetron 4 mg tablet,disintegrating 4 mg PO Q8H PRN (Reason: nausea and vomiting) Qty: 14 0RF No Action aspirin [Adult Low Dose Aspirin] 81 mg tablet,delayed release (DR/EC) 81 mg PO DAILY fluticasone propionate [Allergy Relief (fluticasone)] 50 mcg/actuation spray,suspension 1 spray intranasal DAILY Rx Instructions: administer into each nostril Creon 24,000-76,000 -120,000 unit capsule,delayed release(DR/EC) See Rx Instructions PO .up to 6 times a day Rx Instructions: 5 with meal and 2 with snack orally UP TO 6 TIMES A DAY; administer with meals and/or snacks insulin degludec [Tresiba FlexTouch U-100] 100 unit/mL (3 mL) insulin pen 40 unit subcut QAM Patient Comments: torsemide 20 mg tablet 60 mg PO DAILY ascorbic acid (vitamin C) 500 mg capsule 500 mg PO DAILY ferrous sulfate 325 mg (65 mg iron) tablet 325 mg PO DAILY lidocaine HCl 2 % jelly in applicator topical Gemtesa 75 mg tablet 75 mg PO HS B-complex with vitamin C Capsule 1 cap PO DAILY methocarbamol 500 mg tablet PO ONCE simethicone [Gas Relief (simethicone)] 180 mg capsule 180 mg PO BID PRN (Reason: Abdominal Discomfort) diclofenac sodium 1 % gel 2 g topical QID Qty: 100 0RF Rx Instructions: apply to single elbow, wrist or hand; for hand includes palm/fingers/back of hand cyclobenzaprine 5 mg tablet 5 mg PO TID PRN (Reason: muscle spasm) Qty: 90 0RF trazodone 100 mg tablet 100 mg PO DAILY Qty: 90 0RF ondansetron HCl 8 mg tablet 8 mg PO .before meals Qty: 30 0RF Ubrelvy 100 mg tablet 100 mg PO ONCE Qty: 10 2RF Rx Instructions: as a single dose; may repeat once in >=2 hours after first dose if needed sucralfate [Carafate] 1 gram tablet 1 g PO ACHS Qty: 120 0RF omeprazole 40 mg capsule,delayed release(DR/EC) 40 mg PO BID Qty: 60 3RF fluticasone furoate-vilanterol 100-25 mcg/dose Blister With Device 1 inh INHALATION DAILY multivitamin [Daily Multi-Vitamin] Tablet 1 tablet PO DAILY tamsulosin 0.4 mg capsule 0.4 mg PO DAILY PRN (Reason: urinary retention) rosuvastatin [Crestor] 5 mg tablet 5 mg PO DAILY albuterol sulfate [ProAir HFA] 90 mcg/actuation HFA aerosol inhaler 2 inh INHALATION Q6H PRN (Reason: shortness of breath) Qty: 6.7 0RF insulin aspart U-100 [Novolog FlexPen U-100 Insulin] 100 unit/mL (3 mL) insulin pen 12 unit subcut .WITH MEALS Rx Instructions: 8 units TID and sliding scale pramipexole 1 mg tablet See Rx Instructions .ROUTE .COMPLEX Qty: 270 1RF Dose Instruction: TAKE 1 TAB BY MOUTH DAILY IN THE MORNING, AND 2 DAILY IN THE EVENING Rx Instructions: TAKE 1 TAB BY MOUTH DAILY IN THE MORNING, AND 2 DAILY IN THE EVENING Follow-up/Referrals: Kenton Ricks MD [Primary Care Provider, Family Practice]
[2025-06-04 16:21] VITALS: BP 123/57; PULSE 61; RESP 18; O2SAT 97
[2025-06-04 19:39] LABS: Toxigenic C. Diff POSITIVE (NEGATIVE)
[2025-06-04 20:16] LABS: CDiff Toxin A&B Ag Negative (Negative); Clostridium Difficile GDH Ag Positive (Negative)
== END 2025-06-04 16:22 | disposition home or self-care (01) ==
PROVIDERS: Emergency Provider Emergency Medicine; PCP Family Medicine
DX: K92.2 Gastrointestinal hemorrhage, unspecified (principal); D64.9 Anemia, unspecified; R10.9 Unspecified abdominal pain; Z85.9 Personal history of malignant neoplasm, unspecified; Z79.4 Long term (current) use of insulin; I48.0 Paroxysmal atrial fibrillation; I50.30 Unspecified diastolic (congestive) heart failure; E11.9 Type 2 diabetes mellitus without complications; E78.2 Mixed hyperlipidemia; Z95.0 Presence of cardiac pacemaker; Z86.711 Personal history of pulmonary embolism; Z87.891 Personal history of nicotine dependence
CPT/HCPCS: 36415; 74177; 80053; 81001; 82948; 83605; 83690; 83735; 85025; 85610; 85730; 86850; 86900; 86901; 87045; 87046; 87324; 87427; 87449; 87493; 93005; 96365; 96366; 96375; 99284; J2270; J2405; J2470; J2997; J7120; Q9967